=== PATIENT | female | born 1985 | race African-American/Black ===

== ENCOUNTER 2016-11-29 17:45 | Inpatient (IN) | payer MEDICARE, MEDICAID ==
--- NOTE | 2016-11-29 17:59 | ER Document Report ---
Addendum entered and electronically signed by LUCA BALL NP 11/29/16 18:04 : Course - Re-evaluation Re-evalutation: 11/29/16 18:04 diabetic. Original Note: ED Medical Screen (RME) - General Stated Complaint: SHORTNESS OF BREATH Time seen by provider: 17:57 Mode of Arrival: Ambulatory Information source: Patient Notes: 31 yo female c/o shortness of breath, hx asthma, trouble getting air in with heavy chest pain all day. worse on left side when she got up today. TRAVEL OUTSIDE OF THE [place] IN LAST 30 DAYS: No - Related Data Allergies/Adverse Reactions: aspirin [Aspirin] Allergy (Verified 08/28/16 07:34) Anaphylaxis ciprofloxacin [From Cipro] Allergy (Verified 08/28/16 07:34) Anaphylaxis clindamycin [Clindamycin] Allergy (Verified 08/28/16 07:34) ibuprofen [From Motrin] Allergy (Verified 08/28/16 07:34) Anaphylaxis lidocaine [From Lidoderm] Allergy (Verified 08/28/16 07:34) Generalized rash tramadol HCl [From Ultram] Allergy (Verified 08/28/16 07:34) vancomycin [Vancomycin] Allergy (Verified 08/28/16 07:34) Shortness of Breath nitroglycerin [Nitroglycerin] Adverse Reaction (Intermediate, Verified 08/28/16 07:34) Joint pain Past Medical History - Social History Family history: Reviewed & Not Pertinent - Past Medical History Cardiac Medical History: Reports: Hx Congestive Heart Failure, Hx Coronary Artery Disease, Hx Hypertension, Hx Heart Murmur Pulmonary Medical History: Reports: Hx Asthma, Hx Pneumonia Neurological Medical History: Reports: Hx Migraine, Hx Seizures Endocrine Medical History: Reports: Hx Diabetes Mellitus Type 1, Hx Diabetes Mellitus Type 2 Renal/ Medical History: Reports: Hx End Stage Renal Disease - On hemodialysis , Hx Hemodialysis, Hx Ovarian Cysts Malignancy Medical History: GI Medical History: Reports: Hx Gastritis Musculoskeltal Medical History: Skin Medical History: Reports Hx Psoriasis Psychiatric Medical History: Reports: Hx Depression Traumatic Medical History: Infectious Medical History: Past Surgical History: Reports: Hx Appendectomy, Hx Cholecystectomy, Hx Vascular Surgery - Left arm fistula; Perm Cath -Right Chest, right arm fistula - Immunizations Immunizations up to date: Yes Hx Diphtheria, Pertussis, Tetanus Vaccination: Yes
[2016-11-29] MEDS ORDERED: IPRATROPIUM/ALBUTEROL 0.5-2.5 MG/3 ML AMPUL NEB ONE (18:03)
[2016-11-29 18:48] LABS: ABSOLUTE BASOPHILS # (AUTO) 0.1 10^3/uL (0.0-0.2); ABSOLUTE EOSINOPHILS # (AUTO) 0.8 10^3/uL (0.0-0.6); ABSOLUTE LYMPHOCYTES (AUTO) 1.8 10^3/uL (0.5-4.7); ABSOLUTE MONOCYTES (AUTO) 0.5 10^3/uL (0.1-1.4); ABSOLUTE NEUT (AUTO) 6.9 10^3/uL (1.7-8.2); BASOPHILS % (AUTO) 1.3 % (0-2); EOSINOPHILS % (AUTO) 7.6 % (0-6); HEMATOCRIT 35.8 % (36.0-47.0); HEMOGLOBIN 11.7 g/dL (12.0-15.5); HGB HCT DIFFERENCE -0.7; LYMPHOCYTES % (AUTO) 17.5 % (13-45); MEAN CORPUSCULAR HEMOGLOBIN 27.9 pg (27.0-33.4); MEAN CORPUSCULAR HGB CONC 32.6 g/dL (32.0-36.0); MEAN CORPUSCULAR VOLUME 86 fl (80-97); MONOCYTES % (AUTO) 5.3 % (3-13); RED BLOOD COUNT 4.19 10^6/uL (3.72-5.28); RED CELL DISTRIBUTION WIDTH 17.6 % (11.5-14.0); SEGMENTED NEUTROPHILS % (AUTO) 68.3 % (42-78); WHITE BLOOD COUNT 10.1 10^3/uL (4.0-10.5)
[2016-11-29 19:11] LABS: ALANINE AMINOTRANSFERASE 23 U/L (9-52); ALBUMIN 4.8 g/dL (3.5-5.0); ALKALINE PHOSPHATASE 131 U/L (38-126); ASPARTATE AMINO TRANSFERASE 13 U/L (14-36); BILIRUBIN,TOTAL 0.6 mg/dL (0.2-1.3); BLOOD UREA NITROGEN 85 mg/dL (7-20); CALCIUM 8.2 mg/dL (8.4-10.2); CHLORIDE 95 mmol/L (98-107); CREATININE RESULT 13.57 mg/dL (0.52-1.25); GLUCOSE 162 mg/dL (75-110); TOTAL PROTEIN 8.1 g/dL (6.3-8.2)
[2016-11-29 19:21] LABS: CARBON DIOXIDE 20 mmol/L (22-30); SODIUM 139.3 mmol/L (137-145)
[2016-11-29 19:23] LABS: CREATINE KINASE MB 1.4 ng/mL (<4.55); TROPONIN I 0.013 ng/mL
[2016-11-29 19:25] LABS: ANION GAP 24 (5-19)
[2016-11-29 19:27] LABS: POTASSIUM 6.1 mmol/L (3.6-5.0)
[2016-11-29] MEDS ORDERED: SODIUM BICARBONATE 8.4% INJ 50 MEQ/50 ML DISP.SYRIN IV ONE (19:40)
[2016-11-29] MEDS ORDERED: CALCIUM GLUCONATE 1000 MG/10 ML INJ IV ONE (19:40)
[2016-11-29] MEDS ORDERED: INSULIN REG, HUMAN 100 UNIT/ML 3 ML VIAL (PYX) IV ONE (19:40)
[2016-11-29] MEDS ORDERED: DEXTROSE 50%-WATER 25 GM/50 ML DISP.SYRIN IV ONE (19:40)
--- NOTE | 2016-11-29 20:27 | ER Document Report ---
ED General - General Chief Complaint: Chest Pain Stated Complaint: SHORTNESS OF BREATH Mode of Arrival: Ambulatory Information source: Patient Notes: 31-year-old female dialysis patient presents with complaints of shortness of breath chest pain. Patient notes symptoms started this morning. Patient states she had dialysis done on Wednesday was told that her potassium was normal at that time. Denies any fevers or chills nausea vomiting or diarrhea admits to mild headache TRAVEL OUTSIDE OF THE [place] IN LAST 30 DAYS: No - HPI Onset: This morning Onset/Duration: Sudden Quality of pain: Pressure Severity: Mild Pain Level: 1 Associated symptoms: Chest pain, Shortness of breath Exacerbated by: Denies Relieved by: Denies Similar symptoms previously: Yes Recently seen / treated by doctor: Yes - Related Data Allergies/Adverse Reactions: aspirin [Aspirin] Allergy (Verified 11/29/16 17:58) Anaphylaxis ciprofloxacin [From Cipro] Allergy (Verified 11/29/16 17:58) Anaphylaxis clindamycin [Clindamycin] Allergy (Verified 11/29/16 17:58) ibuprofen [From Motrin] Allergy (Verified 11/29/16 17:58) Anaphylaxis lidocaine [From Lidoderm] Allergy (Verified 11/29/16 17:58) Generalized rash tramadol HCl [From Ultram] Allergy (Verified 11/29/16 17:58) vancomycin [Vancomycin] Allergy (Verified 11/29/16 17:58) Shortness of Breath nitroglycerin [Nitroglycerin] Adverse Reaction (Intermediate, Verified 11/29/16 17:58) Joint pain Past Medical History - General Information source: Patient - Social History Smoking Status: Unknown if Ever Smoked Cigarette use (# per day): No Chew tobacco use (# tins/day): No Smoking Education Provided: No Frequency of alcohol use: None Drug Abuse: None Family History: None Patient has suicidal ideation: No Patient has homicidal ideation: No - Past Medical History Cardiac Medical History: Reports: Hx Congestive Heart Failure, Hx Coronary Artery Disease, Hx Hypertension, Hx Heart Murmur Pulmonary Medical History: Reports: Hx Asthma, Hx Pneumonia Neurological Medical History: Reports: Hx Migraine, Hx Seizures Endocrine Medical History: Reports: Hx Diabetes Mellitus Type 1, Hx Diabetes Mellitus Type 2 Renal/ Medical History: Reports: Hx End Stage Renal Disease - On hemodialysis , Hx Hemodialysis, Hx Ovarian Cysts Malignancy Medical History: GI Medical History: Reports: Hx Gastritis Musculoskeltal Medical History: Skin Medical History: Reports Hx Psoriasis Psychiatric Medical History: Reports: Hx Depression Traumatic Medical History: Infectious Medical History: Past Surgical History: Reports: Hx Appendectomy, Hx Cholecystectomy, Hx Vascular Surgery - Left arm fistula; Perm Cath -Right Chest, right arm fistula - Immunizations Immunizations up to date: Yes Hx Diphtheria, Pertussis, Tetanus Vaccination: Yes Hx Pneumococcal Vaccination: 08/22/11 Review of Systems - Review of Systems Notes: REVIEW OF SYSTEMS: CONSTITUTIONAL : Denies fever, chills, or sweats. Denies recent illness. EENT: Denies eye, ear, throat, or mouth pain or symptoms. Denies nasal or sinus congestion or discharge. Denies throat, tongue, or mouth swelling or difficulty swallowing. CARDIOVASCULAR: Admits to chest pain RESPIRATORY: Admits shortness breath GASTROINTESTINAL: Denies abdominal pain or distention. Denies nausea, vomiting , or diarrhea. Denies blood in vomitus, stools, or per rectum. Denies black, tarry stools. Denies constipation. GENITOURINARY: Denies difficulty urinating, painful urination, burning, frequency, blood in urine, or discharge. FEMALE GENITOURINARY: Denies vaginal bleeding, heavy or abnormal periods, irregular periods. Denies vaginal discharge or odor. MUSCULOSKELETAL: Denies back or neck pain or stiffness. Denies joint pain or swelling. SKIN: Denies rash, lesions or sores. HEMATOLOGIC : Denies easy bruising or bleeding. LYMPHATIC: Denies swollen, enlarged glands. NEUROLOGICAL: Denies confusion or altered mental status. Denies passing out or loss of consciousness. Denies dizziness or lightheadedness. Denies headache. Denies weakness or paralysis or loss of use of either side. Denies problems with gait or speech. Denies sensory loss, numbness, or tingling. Denies seizures. PSYCHIATRIC: Denies anxiety or stress. Denies depression, suicidal ideation, or homicidal ideation. ALL OTHER SYSTEMS REVIEWED AND NEGATIVE. Dictation was performed using [employer] recognition software PHYSICAL EXAMINATION: GENERAL: Well-appearing, well-nourished and in no acute distress. HEAD: Atraumatic, normocephalic. EYES: Pupils equal round and reactive to light, extraocular movements intact, conjunctiva are normal. ENT: Nares patent, oropharynx clear without exudates. Moist mucous membranes. NECK: Normal range of motion, supple without lymphadenopathy LUNGS: Crackles at the bases HEART: Regular rate and rhythm without murmurs ABDOMEN: Soft, nontender, nondistended abdomen. No guarding, no rebound. No masses appreciated. Female : deferred Musculoskeletal: Normal range of motion, no pitting or edema. No cyanosis. NEUROLOGICAL: Cranial nerves grossly intact. Normal speech, normal gait. Normal sensory, motor exams PSYCH: Normal mood, normal affect. SKIN: Extensive scarring noted Physical Exam - Vital signs Vitals: Resp Pulse Ox 18 100 11/29/16 18:56 11/29/16 18:56 Course - Re-evaluation Re-evalutation: 11/29/16 20:25 Patient is noted to be hyperkalemic, she will be treated with medications at this time, there is a similar-appearing EKG changes that the patient always has with the hyperacute T waves. I do not believe she requires any emergent dialysis at this time as she is otherwise stable - Vital Signs Vital signs: Temp Pulse Resp BP Pulse Ox 97.8 F 22 H 158/93 H 100 11/29/16 19:32 11/29/16 19:27 11/29/16 19:27 11/29/16 19:27 - Laboratory Result Diagrams: 11/29/16 18:35 11/29/16 18:35 Laboratory results interpreted by me: 11/29/16 11/29/16 11/29/16 18:35 18:35 18:35 Hgb 11.7 L Hct 35.8 L RDW 17.6 H Eosinophils % 7.6 H Absolute Eosinophils 0.8 H Potassium 6.1 H* Chloride 95 L Carbon Dioxide 20 L Anion Gap 24 H BUN 85 H Creatinine 13.57 H Est GFR ( Amer) 4 L Est GFR (Non-Af Amer) 3 L Glucose 162 H Calcium 8.2 L AST 13 L Alkaline Phosphatase 131 H NT-Pro-B Natriuret Pep 33129 H Critical Care Note - Critical Care Note Total time excluding time spent on procedures (mins): 33 Comments: 33 minutes of critical care time spent in direct contact evaluating and reevaluating the patient, treating symptoms, reviewing labs and studies and speaking with family and consultants excluding any procedures Discharge - Discharge Clinical Impression: Acute on chronic systolic CHF (congestive heart failure), ESRD (end stage renal disease) on dialysis, Hyperkalemia Volume overload Qualifiers: Hypervolemia type: unspecified Qualified Code(s): E87.70 - Fluid overload, unspecified Condition: Stable Disposition: ADMITTED OBSERVATION Admitting Provider: [facility] Unit Admitted: Telemetry
--- NOTE | 2016-11-29 21:31 | EKG REPORT ---
SEVERITY:- ABNORMAL ECG - SINUS RHYTHM FIRST DEGREE AV BLOCK LEFT AXIS DEVIATION PROBABLE LEFT VENTRICULAR HYPERTROPHY PROLONGED QT INTERVAL : Confirmed by: Daniela Lemons 29-Nov-2016 21:30:42
[2016-11-29] MEDS ORDERED: DEXTROSE 40% GEL 15 GM TUBE PO PRN ×2 (22:41)
[2016-11-29] MEDS ORDERED: DEXTROSE 50%-WATER 25 GM/50 ML DISP.SYRIN IV PRN ×2 (22:41)
[2016-11-29] MEDS ORDERED: GLUCAGON,HUMAN RECOMB 1 MG INJ IM PRN (22:41)
[2016-11-30] MEDS ORDERED: CALCIUM CARBONATE 500 MG TAB.CHEW PO ONE ×2 (00:30)
[2016-11-30] MEDS ORDERED: LABETALOL HCL 200 MG TABLET PO ONE (00:30)
[2016-11-30] MEDS ORDERED: LORAZEPAM 1 MG TABLET PO PRN (02:40)
[2016-11-30] MEDS ORDERED: (PENDING PHARMACY ID) (Suvorexant [Belsomra] 15 MG) PO PRN (02:50)
[2016-11-30] MEDS ORDERED: (PENDING PHARMACY ID) (Sucroferric Oxyhydroxide [Velphoro] 500 MG) PO PRN (03:58)
[2016-11-30] MEDS ORDERED: INSULIN DETEMIR 100 UNIT/ML 3 ML PEN SUBCUT ONE (04:30)
[2016-11-30 05:36] LABS: HEMATOCRIT 32.9 % (36.0-47.0); HEMOGLOBIN 10.9 g/dL (12.0-15.5); HGB HCT DIFFERENCE -0.2; MEAN CORPUSCULAR HEMOGLOBIN 28.5 pg (27.0-33.4); MEAN CORPUSCULAR VOLUME 86 fl (80-97); RED BLOOD COUNT 3.82 10^6/uL (3.72-5.28); RED CELL DISTRIBUTION WIDTH 17.6 % (11.5-14.0); WHITE BLOOD COUNT 9.9 10^3/uL (4.0-10.5)
[2016-11-30 05:51] LABS: BLOOD UREA NITROGEN 88 mg/dL (7-20); CALCIUM 8.1 mg/dL (8.4-10.2); GLUCOSE 97 mg/dL (75-110)
[2016-11-30 06:01] LABS: CARBON DIOXIDE 20 mmol/L (22-30); CHLORIDE 96 mmol/L (98-107)
[2016-11-30 06:02] LABS: ANION GAP 23 (5-19); CREATININE RESULT 14.64 mg/dL (0.52-1.25)
[2016-11-30 06:04] LABS: POTASSIUM 6.5 mmol/L (3.6-5.0)
[2016-11-30] MEDS ORDERED: CALCIUM GLUCONATE 1000 MG/10 ML INJ IV PRN (06:17)
[2016-11-30] MEDS ORDERED: SODIUM POLYSTYRENE SULFONATE 15 GM/60 ML PO ONE (06:30)
[2016-11-30] MEDS ORDERED: CALCIUM GLUCONATE 1,000 MG in DEXTROSE 5%-WATER 50 ML IV ONE (06:30)
[2016-11-30] MEDS ORDERED: HEPARIN SOD (PORCINE) 1,000 UNIT/ML 10 ML VIAL IV PRN (09:56)
[2016-11-30] MEDS ORDERED: SUCROFERRIC OXYHYDROXIDE 1000 MG PO SCH (10:00)
[2016-11-30] MEDS ORDERED: ACETAMINOPHEN 325 MG TABLET PO ONE (11:00)
[2016-11-30] MEDS: INSULIN DETEMIR 100 UNIT/ML 3 ML PEN SUBCUT SCH ×2 (11:51→23:14)
[2016-11-30] MEDS: NIFEDIPINE 30 MG TAB.ER.24 PO SCH ×2 (11:54→23:13)
--- NOTE | 2016-11-30 17:52 | PDOC CONSULTATION ---
Consultation Consult Date: 11/30/16 Consult reason:: Acute dialysis in the setting of congestive heart failure and hyperkalemia History of Present Illness Admission Date/PCP: 11/30/16 16:18 HILARY HERNANDEZ, History of Present Illness: ERICH GOODMAN is a 31 year old female with a past medical history of ESRD on hemodialysis in the background of diabetes, hypertension who comes in with a history of shortness of breath. She was last dialyzed on Wednesday at [facility] [place]. She is known to be extremely noncompliant unfortunately. She has got short many different treatments and does not conform to any form of diet. She is also known to not be taking her medications faithfully. She has had multiple admissions for malignant hypertension presenting as severe hypertension or as congestive heart failure. She has also had multiple admissions for hyperkalemia. Evaluations in the ER revealed that she was in congestive heart failure and the potassium was 6.1. EKG showed peaked tented T waves in the anterolateral leads which is sometimes similar to previous EKGs as well. She was given appropriate treatments in the ER and admitted for further evaluations and management. She is being seen on hemodialysis undergoing dialysis without issues. Discussed with Kim treating nurse on dialysis. Orders have been given. Vital signs are stable. Plan to ultrafiltrate between 4 and 5 L as tolerated. Past Medical History Cardiac Medical History: Reports: Coronary Artery Disease, Heart Murmur, Hypertension-primary Pulmonary Medical History: Reports: Asthma, Pneumonia Neurological Medical History: Reports: Migraine, Seizures Endocrine Medical History: Reports: Diabetes Mellitus Type 2 Renal/ Medical History: Reports: End Stage Renal Disease - On hemodialysis Denies: Benign Prostatic Hyperplasia Malignancy Medical History: GI Medical History: Musculoskeltal Medical History: Denies: Rheumatoid Arthritis, Systemic Lupus Erythematosus Skin Medical History: Reports: Psoriasis Psychiatric Medical History: Reports: Depression Infectious Medical History: Past Surgical History Past Surgical History: Reports: Appendectomy, Cholecystectomy, Vascular Surgery - Left arm fistula; Perm Cath -Right Chest, right arm fistula Social History Smoking Status: Unknown if Ever Smoked Frequency of Alcohol Use: None Hx Recreational Drug Use: No Drugs: None Hx Prescription Drug Abuse: No Family History Parental Family History Reviewed: Yes Children Family History Reviewed: No Sibling(s) Family History Reviewed.: No Medication/Allergy Home Medications: Labetalol HCl [Normodyne 200 mg Tablet] 600 mg PO Q8 11/11/16 Lorazepam 2 mg PO Q12HP PRN 11/11/16 Mirtazapine 30 mg PO QHS 11/11/16 Nifedipine [Nifedipine ER] 90 mg PO Q12 11/11/16 Ondansetron [Ondansetron Odt] 4 mg PO Q8HP PRN 11/11/16 Oxycodone HCl/Acetaminophen [Oxycodone-Acetaminophen 10-325] 1 tab PO Q12HP PRN 11/11/16 Paroxetine HCl [Paxil] 60 mg PO QHS 11/11/16 Suvorexant [Belsomra] 15 mg PO HSP PRN 11/11/16 Calcium Carbonate [Tums Chewable 500 mg Tab.chew] 1,000 mg PO QHS 11/12/16 Insulin Detemir [Levemir Flextouch] 30 units SQ BID 11/12/16 Insulin Lispro [Humalog Insulin (Lispro) 100 unit/mL] See Protocol SUBCUT .SLD SCALE PRN 11/12/16 Sucroferric Oxyhydroxide [Velphoro] 1,000 mg PO TID 11/12/16 Sucroferric Oxyhydroxide [Velphoro] 500 mg PO BID PRN 11/12/16 Allergies/Adverse Reactions: aspirin [Aspirin] Allergy (Verified 11/29/16 17:58) Anaphylaxis ciprofloxacin [From Cipro] Allergy (Verified 11/29/16 17:58) Anaphylaxis clindamycin [Clindamycin] Allergy (Verified 11/29/16 17:58) ibuprofen [From Motrin] Allergy (Verified 11/29/16 17:58) Anaphylaxis lidocaine [From Lidoderm] Allergy (Verified 11/29/16 17:58) Generalized rash tramadol HCl [From Ultram] Allergy (Verified 11/29/16 17:58) vancomycin [Vancomycin] Allergy (Verified 11/29/16 17:58) Shortness of Breath nitroglycerin [Nitroglycerin] Adverse Reaction (Intermediate, Verified 11/29/16 17:58) Joint pain Review of Systems Review of Systems: Constitutional: [ABSENT: chills, fever(s), headache(s), weight gain, weight loss ] Eyes: [ABSENT: visual disturbances] Ears: [ABSENT: hearing changes] Nose, Mouth and Throat: [ABSENT: headache(s)] Cardiovascular:[ ABSENT: chest pain, edema, palpitations] Respiratory: [ABSENT: cough, hemoptysis] Gastrointestinal:[ ABSENT: abdominal pain, constipation, diarrhea, hematemesis, hematochezia, nausea, vomiting] Genitourinary: [ABSENT: dysuria, hematuria] Musculoskeletal:[ ABSENT: joint swelling] Integumentary: [ABSENT: rash, wounds] Neurological: [ABSENT: abnormal gait, abnormal speech, confusion, dizziness, focal weakness, syncope, vertigo, weakness] Psychiatric: [ABSENT: anxiety, depression, homicidal ideation, suicidal ideation ] Endocrine: [ABSENT: cold intolerance, heat intolerance, menstrual abnormalities , polydipsia, polyuria] Hematologic/Lymphatic:[ ABSENT: easy bleeding, easy bruising, lymphadenopathy] Physical Exam Vital Signs: Temp Pulse Resp BP Pulse Ox 98.7 F 84 18 155/76 H 100 11/30/16 15:00 11/30/16 15:00 11/30/16 15:00 11/30/16 15:00 11/30/16 15:00 General appearance: PRESENT: mild distress, morbidly obese Eye exam: PRESENT: conjunctiva pink, EOMI, PERRLA. ABSENT: nystagmus, periorbital swelling, scleral icterus Ear exam: ABSENT: bleeding, drainage, normal external ear exam, TM's normal bilaterally Mouth exam: ABSENT: neck supple Neck exam: ABSENT: meningismus, tenderness, thyromegaly Respiratory exam: PRESENT: clear to auscultation freddy, crackles, rales, symmetrical Cardiovascular exam: PRESENT: +S1, +S2, systolic murmur GI/Abdominal exam: PRESENT: soft. ABSENT: diminished bowel sounds, distended, firm, guarding, mass, tenderness Extremities exam: PRESENT: +1 edema Neurological exam: PRESENT: alert, oriented to person, oriented to place, oriented to time Psychiatric exam: PRESENT: flat affect Skin exam: PRESENT: normal color. ABSENT: cyanosis, erythema, mottled, rash Results Impressions: Chest X-Ray 11/29/16 18:41 IMPRESSION: Congestive heart failure. Assessment & Plan - Diagnosis (1) Acute hypoxemic respiratory failure Plan: She should respond to ultrafiltration on hemodialysis. She is in respiratory failure from congestive heart failure. (2) Acute on chronic systolic CHF (congestive heart failure) Plan: She is in congestive heart failure. Unfortunately she has a severe noncompliance issues with her diet and medications. Unfortunately has had repeated admissions for her to be coming in with congestive heart failure usually around the weekends. She should respond well to ultrafiltration and we' ll see how she is done after dialysis. Plan to remove around 4-5 L as tolerated. Discussed with Kim the dialysis nurse. (3) Hyperkalemia Plan: Again unfortunately with severe noncompliance. She should respond properly to her hemodialysis. Discussed with her again about strict diet restrictions. (5) Anemia Qualifiers: Other causes of anemia: chronic disease, kidney Plan: Adjust erythropoietin. (7) Hypertension Qualifiers: Hypertension type: essential hypertension Qualified Code(s): I10 - Essential (primary) hypertension Plan: She should respond well to ultrafiltration and dialysis. Advise compliance with medications. (8) Morbid obesity Qualifiers: Obesity type: due to excess calories Qualified Code(s): E66.01 - Morbid (severe) obesity due to excess calories
[2016-11-30] MEDS: MIRTAZAPINE 15 MG TABLET PO SCH (23:13)
[2016-11-30] MEDS: PAROXETINE HCL 20 MG TABLET PO SCH (23:14)
[2016-12-01] MEDS: LABETALOL HCL 200 MG TABLET PO SCH ×3 (06:10→21:33)
[2016-12-01] MEDS ORDERED: CALCIUM CARBONATE 500 MG TAB.CHEW PO ONE (08:15)
[2016-12-01] MEDS: INSULIN LISPRO 100 UNIT/ML 3 ML VIAL SUBCUT PRN (08:23)
[2016-12-01 08:37] LABS: BLOOD UREA NITROGEN 64 mg/dL (7-20); CALCIUM 7.7 mg/dL (8.4-10.2); CARBON DIOXIDE 26 mmol/L (22-30); CHLORIDE 92 mmol/L (98-107); CREATININE RESULT 11.15 mg/dL (0.52-1.25); GLUCOSE 170 mg/dL (75-110); SODIUM 138.1 mmol/L (137-145)
[2016-12-01 08:39] LABS: ANION GAP 20 (5-19)
[2016-12-01] MEDS ORDERED: (PENDING PHARMACY ID) (Nifedipine [Nifedipine Er] 90 MG) PO SCH (10:00)
[2016-12-01] MEDS: INSULIN DETEMIR 100 UNIT/ML 3 ML PEN SUBCUT SCH ×2 (10:40→21:40)
[2016-12-01] MEDS: NIFEDIPINE 30 MG TAB.ER.24 PO SCH ×2 (10:40→21:32)
[2016-12-01] MEDS ORDERED: LEVETIRACETAM 500 MG TABLET PO ONE (13:25)
[2016-12-01] MEDS: OXYCODONE-ACETAMINOPHEN 5-325 MG TABLET PO PRN (13:29)
[2016-12-01] MEDS: ONDANSETRON 4 MG TAB.RAPDIS PO PRN (13:55)
[2016-12-01] MEDS ORDERED: LORAZEPAM INJ 2 MG/1 ML VIAL ONE (17:14)
[2016-12-01] MEDS ORDERED: HALOPERIDOL LACTATE INJ 5 MG/1 ML VIAL ONE (17:24)
--- NOTE | 2016-12-01 17:43 | PDOC H&P ---
History of Present Illness Admission Date/PCP: 11/30/16 16:18 ILIRJENNA BEAULIEUHAL, History of Present Illness: Patient 31-year-old female with end-stage renal disease on maintenance hemodialysis extremely noncompliant with hemodialysis therapy. She was recently admitted on 11/12/2016 and she was discharged on 11/14/2016. Before then she was admitted 10/27/2016, and she has multiple previous admission will be the same presentation. She presented to the emergency room with shortness of breath, she was evaluated and she was found to be in pulmonary edema with hyperkalemia. She will required dialysis, the last 2-D echo done was reviewed, the echo was done on 03/27/2016 and it showed preserved ejection fraction of the left ventricle, it was more than 65%,There was no LVH, usually once she is dialyzed ,she does feel better Past Medical History Cardiac Medical History: Reports: Hypertension Pulmonary Medical History: Reports: Asthma, Pneumonia Neurological Medical History: Reports: Migraine, Seizures Endocrine Medical History: Reports: Diabetes Mellitus Type 1, Obesity Renal/ Medical History: Reports: End Stage Renal Disease - On hemodialysis Malignancy Medical History: GI Medical History: Musculoskeltal Medical History: Skin Medical History: Reports: Psoriasis Psychiatric Medical History: Reports: Depression Hematology: Reports: Anemia Infectious Medical History: Past Surgical History Past Surgical History: Reports: Appendectomy, Cholecystectomy, Vascular Surgery - Left arm fistula; Perm Cath -Right Chest, right arm fistula Social History Information Source: Patient Smoking Status: Never Smoker Frequency of Alcohol Use: None Hx Recreational Drug Use: No Drugs: None Hx Prescription Drug Abuse: No Family History Family History: None Parental Family History Reviewed: Yes Children Family History Reviewed: Yes Sibling(s) Family History Reviewed.: Yes Medication/Allergy Home Medications: Labetalol HCl [Normodyne 200 mg Tablet] 600 mg PO Q8 11/11/16 Lorazepam 2 mg PO Q12HP PRN 11/11/16 Mirtazapine 30 mg PO QHS 11/11/16 Nifedipine [Nifedipine ER] 90 mg PO Q12 11/11/16 Ondansetron [Ondansetron Odt] 4 mg PO Q8HP PRN 11/11/16 Oxycodone HCl/Acetaminophen [Oxycodone-Acetaminophen 10-325] 1 tab PO Q12HP PRN 11/11/16 Paroxetine HCl [Paxil] 60 mg PO QHS 11/11/16 Suvorexant [Belsomra] 15 mg PO HSP PRN 11/11/16 Calcium Carbonate [Tums Chewable 500 mg Tab.chew] 1,000 mg PO QHS 11/12/16 Insulin Detemir [Levemir Flextouch] 30 units SQ BID 11/12/16 Insulin Lispro [Humalog Insulin (Lispro) 100 unit/mL] See Protocol SUBCUT .SLD SCALE PRN 11/12/16 Sucroferric Oxyhydroxide [Velphoro] 1,000 mg PO TID 11/12/16 Sucroferric Oxyhydroxide [Velphoro] 500 mg PO BID PRN 11/12/16 Allergies/Adverse Reactions: aspirin [Aspirin] Allergy (Verified 11/29/16 17:58) Anaphylaxis ciprofloxacin [From Cipro] Allergy (Verified 11/29/16 17:58) Anaphylaxis clindamycin [Clindamycin] Allergy (Verified 11/29/16 17:58) ibuprofen [From Motrin] Allergy (Verified 11/29/16 17:58) Anaphylaxis lidocaine [From Lidoderm] Allergy (Verified 11/29/16 17:58) Generalized rash tramadol HCl [From Ultram] Allergy (Verified 11/29/16 17:58) vancomycin [Vancomycin] Allergy (Verified 11/29/16 17:58) Shortness of Breath nitroglycerin [Nitroglycerin] Adverse Reaction (Intermediate, Verified 11/29/16 17:58) Joint pain Review of Systems Constitutional: PRESENT: fatigue Eyes: ABSENT: visual disturbances Ears: ABSENT: hearing changes Cardiovascular: PRESENT: dyspnea on exertion, edema Respiratory: PRESENT: cough Gastrointestinal: ABSENT: abdominal pain, constipation, diarrhea, hematemesis, hematochezia, nausea, vomiting Genitourinary: PRESENT: other - Patient is on hemodialysis Musculoskeletal: PRESENT: back pain Neurological: ABSENT: abnormal gait, abnormal speech, confusion, dizziness, focal weakness, syncope Psychiatric: PRESENT: depression Hematologic/Lymphatic: ABSENT: easy bleeding, easy bruising, lymphadenopathy Physical Exam Vital Signs: Temp Pulse Resp BP Pulse Ox 97.5 F 76 16 139/73 H 98 12/01/16 12:00 12/01/16 12:00 12/01/16 12:00 12/01/16 12:00 12/01/16 17:06 Intake & Output 11/30/16 12/01/16 12/02/16 06:59 06:59 06:59 Intake Total 240 300 Output Total 4200 Balance -3960 300 General appearance: PRESENT: obese Head exam: PRESENT: atraumatic, normocephalic Eye exam: PRESENT: PERRLA Neck exam: PRESENT: full ROM Cardiovascular exam: PRESENT: RRR, +S1, +S2 Vascular exam: PRESENT: normal capillary refill GI/Abdominal exam: PRESENT: normal bowel sounds, soft Rectal exam: PRESENT: deferred Neurological exam: PRESENT: alert, awake, oriented to person, oriented to place , oriented to time, oriented to situation, CN II-XII grossly intact. ABSENT: motor sensory deficit Psychiatric exam: PRESENT: appropriate affect, normal mood Skin exam: PRESENT: dry, intact, warm Results Laboratory Results: 12/01/16 08:01 12/01/16 08:01 Sodium 138.1 Potassium 5.0 Chloride 92 L Carbon Dioxide 26 Anion Gap 20 H BUN 64 H Creatinine 11.15 H Est GFR ( Amer) 5 L Est GFR (Non-Af Amer) 4 L Glucose 170 H Calcium 7.7 L Impressions: Chest X-Ray 11/29/16 18:41 IMPRESSION: Congestive heart failure. Assessment & Plan - Diagnosis (1) Acute pulmonary edema Is this a current diagnosis for this admission?: YesPlan: Patient is admitted for hemodialysis (2) Hyperkalemia Is this a current diagnosis for this admission?: Yes (3) End stage renal disease on dialysis due to type 1 diabetes mellitus Is this a current diagnosis for this admission?: Yes
[2016-12-01] MEDS ORDERED: HALOPERIDOL LACTATE INJ 5 MG/1 ML VIAL IM ONE (17:45)
[2016-12-01] MEDS ORDERED: LORAZEPAM INJ 2 MG/1 ML VIAL IM ONE (17:45)
[2016-12-01] MEDS: LEVETIRACETAM 500 MG TABLET PO SCH (18:28)
--- NOTE | 2016-12-01 19:05 | PDOC PROGRESS REPORT ---
Subjective Progress Note for:: 12/01/16 Subjective:: Patient had a witnessed seizure on the floor today, the nurses called me to advise me of patient had a seizure, I saw her on the floor. She was in the room on her bed face down . She would not respond to verbal commands or any question,it does not looks like post-ictal confusion states. Physical Exam Vital Signs: Temp Pulse Resp BP Pulse Ox 97.5 F 80 24 H 141/65 H 98 12/01/16 15:00 12/01/16 15:00 12/01/16 15:00 12/01/16 15:00 12/01/16 17:06 Intake & Output 11/30/16 12/01/16 12/02/16 06:59 06:59 06:59 Intake Total 240 300 Output Total 4200 Balance -3960 300 General appearance: PRESENT: no acute distress Respiratory exam: PRESENT: clear to auscultation freddy Cardiovascular exam: PRESENT: +S1, +S2 Neurological exam: PRESENT: alert Results Laboratory Results: 12/01/16 08:01 12/01/16 08:01 Sodium 138.1 Potassium 5.0 Chloride 92 L Carbon Dioxide 26 Anion Gap 20 H BUN 64 H Creatinine 11.15 H Est GFR ( Amer) 5 L Est GFR (Non-Af Amer) 4 L Glucose 170 H Calcium 7.7 L Impressions: Chest X-Ray 11/29/16 18:41 IMPRESSION: Congestive heart failure. Assessment & Plan - Diagnosis (1) Acute pulmonary edema Is this a current diagnosis for this admission?: Yes (2) Hyperkalemia Is this a current diagnosis for this admission?: Yes (3) End stage renal disease on dialysis due to type 1 diabetes mellitus Is this a current diagnosis for this admission?: Yes (4) Seizure Is this a current diagnosis for this admission?: YesPlan: MRI brain is ordered , loading dose of Dilantin administered and maintainance dose of Keppra
[2016-12-01] MEDS ORDERED: PHENYTOIN SODIUM INJ/PF 250 MG/5 ML SDV IV ONE (19:30)
[2016-12-01] MEDS: CALCIUM CARBONATE 500 MG TAB.CHEW PO SCH (21:32)
[2016-12-01] MEDS: PAROXETINE HCL 20 MG TABLET PO SCH (21:33)
[2016-12-01] MEDS: MIRTAZAPINE 15 MG TABLET PO SCH (21:33)
[2016-12-02] MEDS: ONDANSETRON 4 MG TAB.RAPDIS PO PRN (00:26)
[2016-12-02] MEDS: LABETALOL HCL 200 MG TABLET PO SCH ×3 (06:38→22:05)
[2016-12-02 07:43] LABS: HEMATOCRIT 34.7 % (36.0-47.0); HEMOGLOBIN 11.3 g/dL (12.0-15.5); HGB HCT DIFFERENCE -0.8
[2016-12-02 07:48] LABS: BLOOD UREA NITROGEN 82 mg/dL (7-20); CARBON DIOXIDE 23 mmol/L (22-30); CHLORIDE 95 mmol/L (98-107); CREATININE RESULT 13.03 mg/dL (0.52-1.25); GLUCOSE 125 mg/dL (75-110); POTASSIUM 5.9 mmol/L (3.6-5.0); SODIUM 139.9 mmol/L (137-145)
[2016-12-02 08:01] LABS: ANION GAP 22 (5-19)
[2016-12-02 08:41] LABS: MEAN CORPUSCULAR HEMOGLOBIN 27.6 pg (27.0-33.4); MEAN CORPUSCULAR HGB CONC 32.5 g/dL (32.0-36.0); MEAN CORPUSCULAR VOLUME 85 fl (80-97); RED BLOOD COUNT 4.08 10^6/uL (3.72-5.28); WHITE BLOOD COUNT 11.9 10^3/uL (4.0-10.5)
[2016-12-02] MEDS: NIFEDIPINE 30 MG TAB.ER.24 PO SCH ×2 (10:50→22:05)
[2016-12-02] MEDS: LEVETIRACETAM 500 MG TABLET PO SCH ×2 (10:51→18:33)
[2016-12-02] MEDS: INSULIN DETEMIR 100 UNIT/ML 3 ML PEN SUBCUT SCH ×2 (10:52→22:01)
--- NOTE | 2016-12-02 13:36 | PDOC PROGRESS REPORT ---
Subjective Progress Note for:: 12/02/16 Subjective:: Seen on HD today.Had a seizure yesterday. Has c/o mouth pains and moderate headache.No focal deficits.Lsat tsugar this AM was 90.No skin rash, fever or chills. Physical Exam Vital Signs: Temp Pulse Resp BP Pulse Ox 98.7 F 80 21 H 141/62 H 100 12/02/16 11:33 12/02/16 11:33 12/02/16 11:33 12/02/16 11:33 12/02/16 11:33 Intake & Output 12/01/16 12/02/16 12/03/16 06:59 06:59 06:59 Intake Total 240 300 Output Total 4200 Balance -3960 300 General appearance: PRESENT: no acute distress Exam: drowsy but easily arousable and talks appropriately. Eye exam: PRESENT: EOMI, PERRLA. ABSENT: nystagmus, periorbital swelling Neck exam: ABSENT: meningismus, tenderness, thyromegaly, tracheal deviation Respiratory exam: PRESENT: clear to auscultation freddy. ABSENT: crackles Cardiovascular exam: PRESENT: +S1, +S2, systolic murmur GI/Abdominal exam: PRESENT: soft. ABSENT: diminished bowel sounds, distended, firm, guarding, mass, tenderness Results Laboratory Results: 12/02/16 04:48 12/02/16 04:48 12/02/16 12/02/16 04:48 04:48 WBC 11.9 H RBC 4.08 Hgb 11.3 L Hct 34.7 L MCV 85 MCH 27.6 MCHC 32.5 RDW 17.0 H Plt Count 280 Sodium 139.9 Potassium 5.9 H Chloride 95 L Carbon Dioxide 23 Anion Gap 22 H BUN 82 H Creatinine 13.03 H Est GFR ( Amer) 4 L Est GFR (Non-Af Amer) 3 L Glucose 125 H Calcium 8.0 L Impressions: Chest X-Ray 11/29/16 18:41 IMPRESSION: Congestive heart failure. Assessment & Plan - Diagnosis (3) Hyperkalemia Plan: She should respond properly to her hemodialysis. (4) ESRD (end stage renal disease) on dialysis Plan: Seen on HD which is being supervised.Orders placed and discussed with RN. Vs stable.Will check sugars. (5) Anemia Qualifiers: Other causes of anemia: chronic disease, kidney Plan: stable. (7) Hypertension Qualifiers: Hypertension type: essential hypertension Qualified Code(s): I10 - Essential (primary) hypertension Plan: Stable. (8) Morbid obesity Qualifiers: Obesity type: due to excess calories Qualified Code(s): E66.01 - Morbid (severe) obesity due to excess calories (9) Seizure Is this a current diagnosis for this admission?: YesPlan: as per Dr Markmonitor sugars.Discussed with KANDICE
[2016-12-02] MEDS ORDERED: CALCIUM GLUCONATE 1000 MG/10 ML INJ IV ONE (16:00)
--- NOTE | 2016-12-02 20:26 | PDOC PROGRESS REPORT ---
Subjective Progress Note for:: 12/02/16 Subjective:: Patient was seen today in dialysis, yesterday. MRI brain could not be done because of excessive movement Physical Exam Vital Signs: Temp Pulse Resp BP Pulse Ox 98.7 F 80 21 H 141/62 H 100 12/02/16 11:33 12/02/16 11:33 12/02/16 11:33 12/02/16 11:33 12/02/16 11:33 Intake & Output 12/01/16 12/02/16 12/03/16 06:59 06:59 06:59 Intake Total 240 300 50 Output Total 4200 0 Balance -3960 300 50 General appearance: PRESENT: obese Eye exam: PRESENT: PERRLA Respiratory exam: PRESENT: clear to auscultation freddy Cardiovascular exam: PRESENT: +S1, systolic murmur Results Laboratory Results: 12/02/16 04:48 12/02/16 04:48 12/02/16 12/02/16 04:48 04:48 WBC 11.9 H RBC 4.08 Hgb 11.3 L Hct 34.7 L MCV 85 MCH 27.6 MCHC 32.5 RDW 17.0 H Plt Count 280 Sodium 139.9 Potassium 5.9 H Chloride 95 L Carbon Dioxide 23 Anion Gap 22 H BUN 82 H Creatinine 13.03 H Est GFR ( Amer) 4 L Est GFR (Non-Af Amer) 3 L Glucose 125 H Calcium 8.0 L Impressions: Chest X-Ray 11/29/16 18:41 IMPRESSION: Congestive heart failure. Assessment & Plan - Diagnosis (1) Acute pulmonary edema Is this a current diagnosis for this admission?: Yes (2) Hyperkalemia Is this a current diagnosis for this admission?: Yes (3) End stage renal disease on dialysis due to type 1 diabetes mellitus Is this a current diagnosis for this admission?: Yes (4) Seizure Is this a current diagnosis for this admission?: Yes
[2016-12-02] MEDS: PAROXETINE HCL 20 MG TABLET PO SCH (22:04)
[2016-12-02] MEDS: MIRTAZAPINE 15 MG TABLET PO SCH (22:05)
[2016-12-02] MEDS: CALCIUM CARBONATE 500 MG TAB.CHEW PO SCH (22:05)
[2016-12-03] MEDS: LABETALOL HCL 200 MG TABLET PO SCH ×3 (05:50→22:56)
[2016-12-03 11:34] LABS: BLOOD UREA NITROGEN 51 mg/dL (7-20); CALCIUM 8.9 mg/dL (8.4-10.2); CARBON DIOXIDE 23 mmol/L (22-30); CHLORIDE 95 mmol/L (98-107); CREATININE RESULT 10.37 mg/dL (0.52-1.25); SODIUM 139.5 mmol/L (137-145)
[2016-12-03 11:36] LABS: GLUCOSE 168 mg/dL (75-110)
[2016-12-03 11:45] LABS: POTASSIUM 6.9 mmol/L (3.6-5.0)
[2016-12-03 12:05] LABS: ANION GAP 22 (5-19)
[2016-12-03] MEDS: LEVETIRACETAM 500 MG TABLET PO SCH ×2 (12:05→19:08)
[2016-12-03] MEDS: NIFEDIPINE 30 MG TAB.ER.24 PO SCH ×2 (12:05→22:55)
[2016-12-03] MEDS: INSULIN DETEMIR 100 UNIT/ML 3 ML PEN SUBCUT SCH ×2 (12:07→22:57)
[2016-12-03] MEDS: SODIUM POLYSTYRENE SULFONATE 15 GM/60 ML PO SCH ×3 (14:47→22:55)
[2016-12-03] MEDS: INSULIN LISPRO 100 UNIT/ML 3 ML VIAL SUBCUT PRN (17:40)
[2016-12-03 20:04] LABS: BLOOD UREA NITROGEN 54 mg/dL (7-20); CALCIUM 8.2 mg/dL (8.4-10.2); CREATININE RESULT 10.91 mg/dL (0.52-1.25); GLUCOSE 176 mg/dL (75-110)
[2016-12-03 20:25] LABS: ANION GAP 23 (5-19); CARBON DIOXIDE 23 mmol/L (22-30); CHLORIDE 94 mmol/L (98-107); POTASSIUM 5.8 mmol/L (3.6-5.0); SODIUM 139.7 mmol/L (137-145)
[2016-12-03] MEDS: OXYCODONE-ACETAMINOPHEN 5-325 MG TABLET PO PRN (20:41)
[2016-12-03] MEDS: CALCIUM CARBONATE 500 MG TAB.CHEW PO SCH (22:55)
[2016-12-03] MEDS: MIRTAZAPINE 15 MG TABLET PO SCH (22:56)
[2016-12-03] MEDS: PAROXETINE HCL 20 MG TABLET PO SCH (22:56)
[2016-12-04] MEDS: LABETALOL HCL 200 MG TABLET PO SCH ×2 (05:50→13:42)
[2016-12-04 06:19] LABS: BLOOD UREA NITROGEN 55 mg/dL (7-20); CALCIUM 8.7 mg/dL (8.4-10.2); CREATININE RESULT 12.24 mg/dL (0.52-1.25); GLUCOSE 110 mg/dL (75-110); MAGNESIUM 2.1 mg/dL (1.6-2.3)
[2016-12-04 06:33] LABS: CARBON DIOXIDE 21 mmol/L (22-30); CHLORIDE 95 mmol/L (98-107); POTASSIUM 5.1 mmol/L (3.6-5.0)
[2016-12-04 06:38] LABS: ANION GAP 26 (5-19)
[2016-12-04 07:35] LABS: HEMATOCRIT 37.2 % (36.0-47.0); HEMOGLOBIN 12.1 g/dL (12.0-15.5); HGB HCT DIFFERENCE -0.9; MEAN CORPUSCULAR HEMOGLOBIN 28.5 pg (27.0-33.4); MEAN CORPUSCULAR HGB CONC 32.5 g/dL (32.0-36.0); RED BLOOD COUNT 4.24 10^6/uL (3.72-5.28); RED CELL DISTRIBUTION WIDTH 16.8 % (11.5-14.0); WHITE BLOOD COUNT 6.9 10^3/uL (4.0-10.5)
[2016-12-04 07:37] LABS: MEAN CORPUSCULAR VOLUME 88 fl (80-97)
--- NOTE | 2016-12-04 12:24 | PDOC PROGRESS REPORT ---
Subjective Progress Note for:: 12/04/16 Subjective:: Seen on HD today. No more seizure. Doing well.No headaches. Physical Exam Vital Signs: Temp Pulse Resp BP Pulse Ox 97.8 F 77 22 H 146/65 H 94 12/04/16 08:00 12/04/16 08:00 12/04/16 08:00 12/04/16 08:00 12/04/16 08:00 Intake & Output 12/03/16 12/04/16 12/05/16 06:59 06:59 06:59 Intake Total 50 1400 Output Total 7400 Balance -7350 1400 Weight 109.1 kg General appearance: PRESENT: no acute distress Respiratory exam: PRESENT: clear to auscultation freddy. ABSENT: crackles, rhonchi Cardiovascular exam: PRESENT: +S1, +S2, systolic murmur GI/Abdominal exam: PRESENT: soft. ABSENT: diminished bowel sounds, distended, firm, guarding, mass, tenderness Neurological exam: PRESENT: alert, awake, oriented to person, oriented to place , oriented to time Results Laboratory Results: 12/04/16 06:57 12/04/16 05:06 12/03/16 12/04/16 12/04/16 19:35 05:06 05:06 WBC Cancelled RBC Cancelled Hgb Cancelled Hct Cancelled MCV Cancelled MCH Cancelled MCHC Cancelled RDW Cancelled Plt Count Cancelled Sodium 139.7 142.0 Potassium 5.8 H D 5.1 H Chloride 94 L 95 L Carbon Dioxide 23 21 L Anion Gap 23 H 26 H BUN 54 H 55 H Creatinine 10.91 H 12.24 H Est GFR ( Amer) 5 L 4 L Est GFR (Non-Af Amer) 4 L 4 L Glucose 176 H 110 Calcium 8.2 L 8.7 Magnesium 2.1 12/04/16 06:57 WBC 6.9 RBC 4.24 Hgb 12.1 Hct 37.2 MCV 88 MCH 28.5 MCHC 32.5 RDW 16.8 H Plt Count 256 Sodium Potassium Chloride Carbon Dioxide Anion Gap BUN Creatinine Est GFR ( Amer) Est GFR (Non-Af Amer) Glucose Calcium Magnesium Impressions: Chest X-Ray 11/29/16 18:41 IMPRESSION: Congestive heart failure. Assessment & Plan - Diagnosis (2) Acute on chronic systolic CHF (congestive heart failure) Plan: Resolved. (3) Hyperkalemia Plan: She should respond properly to her hemodialysis. (4) ESRD (end stage renal disease) on dialysis Plan: Seen on HD which is being supervised.Orders placed and discussed with RN. Vs stable.High K. Get K on HD. Interrogate AVF. (5) Anemia Qualifiers: Other causes of anemia: chronic disease, kidney (7) Hypertension Qualifiers: Hypertension type: essential hypertension Qualified Code(s): I10 - Essential (primary) hypertension (8) Morbid obesity Qualifiers: Obesity type: due to excess calories Qualified Code(s): E66.01 - Morbid (severe) obesity due to excess calories (9) Seizure Is this a current diagnosis for this admission?: YesPlan: As per Dr Mark
[2016-12-04] MEDS: NIFEDIPINE 30 MG TAB.ER.24 PO SCH (13:43)
[2016-12-04] MEDS: LEVETIRACETAM 500 MG TABLET PO SCH ×2 (13:44→19:27)
[2016-12-04] MEDS: INSULIN DETEMIR 100 UNIT/ML 3 ML PEN SUBCUT SCH (13:45)
[2016-12-04 21:00] VITALS: BP 150/68
--- NOTE | 2016-12-04 21:14 | PDOC PROGRESS REPORT ---
Subjective Progress Note for:: 12/03/16 Subjective:: Recent seen by the bedside, the serum potassium is high today, she was given Kayexalate Physical Exam Vital Signs: Temp Pulse Resp BP Pulse Ox 98.0 F 84 20 125/74 99 12/03/16 16:26 12/03/16 16:26 12/03/16 16:26 12/03/16 16:26 12/03/16 16:26 Intake & Output 12/02/16 12/03/16 12/04/16 06:59 06:59 06:59 Intake Total 300 50 360 Output Total 7400 Balance 300 -7350 360 General appearance: PRESENT: no acute distress Eye exam: PRESENT: PERRLA Respiratory exam: PRESENT: clear to auscultation freddy Cardiovascular exam: PRESENT: +S1, +S2 Results Laboratory Results: 12/02/16 04:48 12/03/16 19:35 12/03/16 12/03/16 11:10 19:35 Sodium 139.5 139.7 Potassium 6.9 H* 5.8 H D Chloride 95 L 94 L Carbon Dioxide 23 23 Anion Gap 22 H 23 H BUN 51 H 54 H Creatinine 10.37 H 10.91 H Est GFR ( Amer) 5 L 5 L Est GFR (Non-Af Amer) 4 L 4 L Glucose 168 H 176 H Calcium 8.9 8.2 L Impressions: Chest X-Ray 11/29/16 18:41 IMPRESSION: Congestive heart failure. Assessment & Plan - Diagnosis (1) Acute pulmonary edema Is this a current diagnosis for this admission?: Yes (2) Hyperkalemia Is this a current diagnosis for this admission?: Yes (3) End stage renal disease on dialysis due to type 1 diabetes mellitus Is this a current diagnosis for this admission?: Yes (4) Seizure Is this a current diagnosis for this admission?: Yes
--- NOTE | 2016-12-04 21:28 | PDOC DISCHARGE SUMMARY ---
General - Admit/Disc Date/PCP Admission Date/Primary Care Provider: 11/30/16 16:18 HILARY HERNANDEZ, Discharge Date: 12/04/16 - Discharge Diagnosis (1) Acute pulmonary edema Is this a current diagnosis for this admission?: Yes (2) Hyperkalemia Is this a current diagnosis for this admission?: Yes (3) End stage renal disease on dialysis due to type 1 diabetes mellitus Is this a current diagnosis for this admission?: Yes (4) Seizure Is this a current diagnosis for this admission?: Yes - Additional Information Discharge Activity: Balance Activity w/Rest Home Medications: Labetalol HCl [Normodyne 200 mg Tablet] 600 mg PO Q8 11/11/16 Lorazepam 2 mg PO Q12HP PRN 11/11/16 Mirtazapine 30 mg PO QHS 11/11/16 Nifedipine [Nifedipine ER] 90 mg PO Q12 11/11/16 Ondansetron [Ondansetron Odt] 4 mg PO Q8HP PRN 11/11/16 Oxycodone HCl/Acetaminophen [Oxycodone-Acetaminophen 10-325] 1 tab PO Q12HP PRN 11/11/16 Paroxetine HCl [Paxil] 60 mg PO QHS 11/11/16 Suvorexant [Belsomra] 15 mg PO HSP PRN 11/11/16 Calcium Carbonate [Tums Chewable 500 mg Tab.chew] 1,000 mg PO QHS 11/12/16 Insulin Detemir [Levemir Flextouch] 30 units SQ BID 11/12/16 Insulin Lispro [Humalog Insulin (Lispro) 100 unit/mL] See Protocol SUBCUT .SLD SCALE PRN 11/12/16 Sucroferric Oxyhydroxide [Velphoro] 1,000 mg PO TID 11/12/16 Sucroferric Oxyhydroxide [Velphoro] 500 mg PO BID PRN 11/12/16 Levetiracetam [Keppra 500 mg Tablet] 500 mg PO BID #60 tablet 12/04/16 History of Present Illness History of Present Illness: Patient 31-year-old female with end-stage renal disease on maintenance hemodialysis extremely noncompliant with hemodialysis therapy. She was recently admitted on 11/12/2016 and she was discharged on 11/14/2016. Before then she was admitted 10/27/2016, and she has multiple previous admission will be the same presentation. She presented to the emergency room with shortness of breath, she was evaluated and she was found to be in pulmonary edema with hyperkalemia. She will required dialysis, the last 2-D echo done was reviewed, the echo was done on 03/27/2016 and it showed preserved ejection fraction of the left ventricle, it was more than 65%,There was no LVH, usually once she is dialyzed ,she does feel better Hospital Course Hospital Course: Patient was admitted because of volume overload, she was dialyzed in the hospital, she developed acute seizure in the hospital and she was treated with Dilantin loading dose and Keppra maintenance dose. Physical Exam Vital Signs: Temp Pulse Resp BP Pulse Ox 98.9 F 86 20 150/68 H 100 12/04/16 20:53 12/04/16 20:53 12/04/16 20:53 12/04/16 20:53 12/04/16 20:53 Intake & Output 12/03/16 12/04/16 12/05/16 06:59 06:59 06:59 Intake Total 50 1400 480 Output Total 7400 700 Balance -7350 1400 -220 Weight 109.1 kg General appearance: PRESENT: no acute distress Eye exam: PRESENT: PERRLA Respiratory exam: PRESENT: clear to auscultation freddy Cardiovascular exam: PRESENT: +S1, +S2 GI/Abdominal exam: PRESENT: firm Neurological exam: PRESENT: alert Results Laboratory Results: 12/04/16 06:57 12/04/16 05:06 12/04/16 12/04/16 12/04/16 05:06 05:06 06:57 WBC Cancelled 6.9 RBC Cancelled 4.24 Hgb Cancelled 12.1 Hct Cancelled 37.2 MCV Cancelled 88 MCH Cancelled 28.5 MCHC Cancelled 32.5 RDW Cancelled 16.8 H Plt Count Cancelled 256 Sodium 142.0 Potassium 5.1 H Chloride 95 L Carbon Dioxide 21 L Anion Gap 26 H BUN 55 H Creatinine 12.24 H Est GFR ( Amer) 4 L Est GFR (Non-Af Amer) 4 L Glucose 110 Calcium 8.7 Magnesium 2.1 Impressions: Chest X-Ray 11/29/16 18:41 IMPRESSION: Congestive heart failure.
== END 2016-12-04 21:30 | disposition home or self-care (01) | DRG 291 ==
LOC: ER 17:45 → EH 21:06 → 4N 23:40 → OBSVTOIN 11-30 16:18 → 4N 12-01 22:29
PROVIDERS: ADMIT Internal Medicine; ATTEND Internal Medicine
PROC: 5A1D60Z (ICD-10-PCS; principal; 2016-11-30)
DX: I13.2 Hypertensive heart and chronic kidney disease with heart failure and with stage 5 chronic kidney disease, or end stage renal disease (principal); J96.01 Acute respiratory failure with hypoxia; I50.23 Acute on chronic systolic (congestive) heart failure; N18.6 End stage renal disease; E87.5 Hyperkalemia; E10.22 Type 1 diabetes mellitus with diabetic chronic kidney disease; D63.1 Anemia in chronic kidney disease; R56.9 Unspecified convulsions; I25.10 Atherosclerotic heart disease of native coronary artery without angina pectoris; E66.01 Morbid (severe) obesity due to excess calories; Z68.37 Body mass index [BMI] 37.0-37.9, adult; Z79.4 Long term (current) use of insulin; Z88.1 Allergy status to other antibiotic agents; Z88.6 Allergy status to analgesic agent; Z88.8 Allergy status to other drugs, medicaments and biological substances; Z99.2 Dependence on renal dialysis; Z91.15 Patient's noncompliance with renal dialysis; Z91.14 Patient's other noncompliance with medication regimen
CPT/HCPCS: 36415; 71020; 80048; 80053; 82550; 82553; 82962; 83735; 83880; 84484; 85025; 85027; 93005; 93010; 94640; 96374; 96375; 99291; J0610; J1165; J1630; J1815; J2060; J3490; J7620; S0119

== ENCOUNTER 2016-12-07 03:09 | Emergency (ER) | payer MEDICARE, MEDICAID ==
[2016-12-07] MEDS ORDERED: DIAZEPAM INJ 10 MG/2 ML DISP.SYRIN IM ONE ×2 (03:24→04:43)
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
[2016-12-07 04:24] VITALS: BP 155/79
== END 2016-12-07 04:58 | disposition home or self-care (01) ==
LOC: ER 03:09
DX: G89.29 Other chronic pain (principal); M54.41 Lumbago with sciatica, right side; Z79.891 Long term (current) use of opiate analgesic; Z79.52 Long term (current) use of systemic steroids; I12.0 Hypertensive chronic kidney disease with stage 5 chronic kidney disease or end stage renal disease; E11.22 Type 2 diabetes mellitus with diabetic chronic kidney disease; N18.6 End stage renal disease; Z99.2 Dependence on renal dialysis; I25.10 Atherosclerotic heart disease of native coronary artery without angina pectoris; J45.909 Unspecified asthma, uncomplicated
CPT/HCPCS: 99283; 96372; J3360

== ENCOUNTER 2016-12-14 00:54 | Emergency (ER) | payer MEDICARE, MEDICAID ==
--- NOTE | 2016-12-14 04:07 | ER Document Report ---
ED General - General Chief Complaint: Congestion Stated Complaint: DIFFICULTY BREATHING Time seen by provider: 03:50 Notes: Patient is a 31-year-old female that comes emergency department for chief complaint of cough, chills, sinus congestion, and sore throat. She states her son has the same illness. She states she went to urgent care today but they do not started on any antibiotics. She states she has had a history of pneumonia. Patient could not sleep tonight. Patient has a history of end-stage renal disease, she has dialysis due in the morning. TRAVEL OUTSIDE OF THE [place] IN LAST 30 DAYS: No - Related Data Allergies/Adverse Reactions: aspirin [Aspirin] Allergy (Verified 11/29/16 17:58) Anaphylaxis ciprofloxacin [From Cipro] Allergy (Verified 11/29/16 17:58) Anaphylaxis clindamycin [Clindamycin] Allergy (Verified 11/29/16 17:58) ibuprofen [From Motrin] Allergy (Verified 11/29/16 17:58) Anaphylaxis lidocaine [From Lidoderm] Allergy (Verified 11/29/16 17:58) Generalized rash tramadol HCl [From Ultram] Allergy (Verified 11/29/16 17:58) vancomycin [Vancomycin] Allergy (Verified 11/29/16 17:58) Shortness of Breath nitroglycerin [Nitroglycerin] Adverse Reaction (Intermediate, Verified 11/29/16 17:58) Joint pain Past Medical History - General Information source: Patient - Social History Smoking Status: Never Smoker Frequency of alcohol use: None Drug Abuse: None Lives with: Family Family History: None Patient has suicidal ideation: No Patient has homicidal ideation: No - Past Medical History Cardiac Medical History: Reports: Hx Congestive Heart Failure, Hx Coronary Artery Disease, Hx Hypertension, Hx Heart Murmur Pulmonary Medical History: Reports: Hx Asthma, Hx Pneumonia Neurological Medical History: Reports: Hx Migraine, Hx Seizures Endocrine Medical History: Reports: Hx Diabetes Mellitus Type 1, Hx Diabetes Mellitus Type 2 Renal/ Medical History: Reports: Hx End Stage Renal Disease - On hemodialysis , Hx Hemodialysis, Hx Ovarian Cysts. Denies: Hx Peritoneal Dialysis Malignancy Medical History: GI Medical History: Reports: Hx Gastritis Musculoskeltal Medical History: Skin Medical History: Reports Hx Psoriasis Psychiatric Medical History: Reports: Hx Depression Traumatic Medical History: Infectious Medical History: Past Surgical History: Reports: Hx Appendectomy, Hx Cholecystectomy, Hx Vascular Surgery - Left arm fistula; Perm Cath -Right Chest, right arm fistula - Immunizations Immunizations up to date: Yes Hx Diphtheria, Pertussis, Tetanus Vaccination: Yes Hx Pneumococcal Vaccination: 08/22/11 Review of Systems - Review of Systems Constitutional: See HPI EENT: See HPI Cardiovascular: No symptoms reported Respiratory: See HPI Gastrointestinal: No symptoms reported Genitourinary: No symptoms reported Female Genitourinary: No symptoms reported Musculoskeletal: No symptoms reported Skin: No symptoms reported Hematologic/Lymphatic: No symptoms reported Neurological/Psychological: No symptoms reported Physical Exam - Vital signs Vitals: Temp Pulse Resp BP Pulse Ox 97.8 F 92 18 160/76 H 94 12/14/16 02:54 12/14/16 02:54 12/14/16 02:54 12/14/16 02:54 12/14/16 02:54 Interpretation: Normal - General General appearance: Appears well, Alert In distress: None - HEENT Head: Normocephalic, Atraumatic Eyes: Normal Conjunctiva: Normal Extraocular movements intact: Yes Eyelashes: Normal Pupils: PERRL Ears: Normal External canal: Normal Tympanic membrane: Normal Sinus: Normal Nasal: Normal Mouth/Lips: Normal Mucous membranes: Normal Pharynx: Normal Neck: Normal - Respiratory Respiratory status: No respiratory distress. No: Respiratory distress, Tachypnea Chest status: Nontender Breath sounds: Nonproductive cough - Occasional. No: Decreased air movement, Rales, Stridor, Wheezing Chest palpation: Normal - Cardiovascular Rhythm: Regular Heart sounds: Normal auscultation Murmur: No - Abdominal Inspection: Normal Distension: No distension Bowel sounds: Normal Tenderness: Nontender. No: Tender, Guarding Organomegaly: No organomegaly - Back Back: Normal, Nontender - Extremities General upper extremity: Normal inspection, Nontender, Normal color, Normal ROM , Normal temperature General lower extremity: Normal inspection, Nontender, Normal color, Normal ROM , Normal temperature, Normal weight bearing. No: Lina's sign - Neurological Neuro grossly intact: Yes Cognition: Normal Orientation: AAOx4 [place] Coma Scale Eye Opening: Spontaneous [place] Coma Scale Verbal: Oriented [place] Coma Scale Motor: Obeys Commands Hell[place] Coma Scale Total: 15 Speech: Normal Motor strength normal: LUE, RUE, LLE, RLE Sensory: Normal - Psychological Associated symptoms: Normal affect, Normal mood - Skin Skin Temperature: Warm Skin Moisture: Dry Skin Color: Normal Course - Re-evaluation Re-evalutation: Patient with unremarkable physical exam with no rales, no decreased lung sounds , no tachypnea, no hypoxia. Abdomen is soft. Is well-appearing. Patient ambulating around the room playing with her phone. Chest x-ray shows vascular congestion versus pneumonia, no significant change compared to prior, patient has had significantly worse, patient is due for dialysis in a few hours this morning. Discussed with Dr. Ch, patient will be started on doxycycline antibiotic coverage, on reexamination patient with no change in respiratory symptoms. Patient will be advised to follow-up closely with dialysis this morning and return if she worsens in any way. Patient states understanding and agreement. - Vital Signs Vital signs: Temp Pulse Resp BP Pulse Ox 97.5 F 88 20 147/80 H 96 12/14/16 04:25 12/14/16 04:25 12/14/16 04:25 12/14/16 04:25 12/14/16 04:25 - Laboratory Laboratory results interpreted by me: 12/14/16 04:30 POC Glucose 246 H Discharge - Discharge Clinical Impression: Sinus congestion, Cough Condition: Stable Disposition: HOME, SELF-CARE Additional Instructions: Take doxycycline as directed, we are covering you for potential pneumonia. Perform dialysis today as scheduled. Return to the emergency department for any concerning or worsening symptoms including spiking fever, shortness of breath, etc. Prescriptions: Doxycycline Hyclate 100 mg PO BID #14 capsule Referrals: HILARY HERNANDEZ MD [Primary Care Provider] - Follow up as needed
[2016-12-14] MEDS ORDERED: DOXYCYCLINE HYCLATE 100 MG TABLET PO ONE (04:10)
[2016-12-14 04:34] VITALS: BP 147/80
== END 2016-12-14 04:34 | disposition home or self-care (01) ==
LOC: ER 00:54
DX: R09.81 Nasal congestion (principal); R05 Cough; R06.02 Shortness of breath; J02.9 Acute pharyngitis, unspecified; N18.6 End stage renal disease
CPT/HCPCS: 99285; 82962; 71020; A9270

== ENCOUNTER 2016-12-25 02:09 | Emergency (ER) | payer MEDICARE, MEDICAID ==
[2016-12-25] MEDS ORDERED: NIFEDIPINE 30 MG TAB.ER.24 PO ONE (06:09)
[2016-12-25] MEDS ORDERED: HYDRALAZINE HCL 50 MG TABLET PO ONE (06:09)
[2016-12-25] MEDS ORDERED: LABETALOL HCL 200 MG TABLET PO ONE (06:10)
[2016-12-25] MEDS ORDERED: ONDANSETRON 4 MG TAB.RAPDIS PO ONE (06:10)
--- NOTE | 2016-12-25 06:53 | ER Document Report ---
ED General - General Chief Complaint: Chest Congestion Stated Complaint: COUGH Mode of Arrival: Ambulatory Information source: Patient Notes: 31-year-old female who is on dialysis last done on Wednesday presents with complaints of cough congestion and vomiting. Patient notes she only vomited one time but has been unable to hold down her antihypertensive medications. Patient denies any actual chest pain shortness of breath. Patient notes she has a lot of nasal congestion which she was told was allergies denies any fevers TRAVEL OUTSIDE OF THE [place] IN LAST 30 DAYS: No - HPI Onset: Just prior to arrival Onset/Duration: Sudden Quality of pain: No pain Severity: Mild Pain Level: Denies Associated symptoms: Nonproductive cough, Nausea Exacerbated by: Denies Relieved by: Denies Similar symptoms previously: Yes Recently seen / treated by doctor: Yes - Related Data Allergies/Adverse Reactions: aspirin [Aspirin] Allergy (Verified 11/29/16 17:58) Anaphylaxis ciprofloxacin [From Cipro] Allergy (Verified 11/29/16 17:58) Anaphylaxis clindamycin [Clindamycin] Allergy (Verified 11/29/16 17:58) ibuprofen [From Motrin] Allergy (Verified 11/29/16 17:58) Anaphylaxis lidocaine [From Lidoderm] Allergy (Verified 11/29/16 17:58) Generalized rash tramadol HCl [From Ultram] Allergy (Verified 11/29/16 17:58) vancomycin [Vancomycin] Allergy (Verified 11/29/16 17:58) Shortness of Breath nitroglycerin [Nitroglycerin] Adverse Reaction (Intermediate, Verified 11/29/16 17:58) Joint pain Past Medical History - Social History Smoking Status: Never Smoker Cigarette use (# per day): No Chew tobacco use (# tins/day): No Smoking Education Provided: No Frequency of alcohol use: Social Drug Abuse: None Family History: None Patient has suicidal ideation: No Patient has homicidal ideation: No - Past Medical History Cardiac Medical History: Reports: Hx Congestive Heart Failure, Hx Coronary Artery Disease, Hx Hypertension, Hx Heart Murmur Pulmonary Medical History: Reports: Hx Asthma, Hx Pneumonia Neurological Medical History: Reports: Hx Migraine, Hx Seizures Endocrine Medical History: Reports: Hx Diabetes Mellitus Type 1, Hx Diabetes Mellitus Type 2 Renal/ Medical History: Reports: Hx End Stage Renal Disease - On hemodialysis , Hx Hemodialysis, Hx Ovarian Cysts. Denies: Hx Peritoneal Dialysis Malignancy Medical History: GI Medical History: Reports: Hx Gastritis Musculoskeltal Medical History: Skin Medical History: Reports Hx Psoriasis Psychiatric Medical History: Reports: Hx Depression Traumatic Medical History: Infectious Medical History: Past Surgical History: Reports: Hx Appendectomy, Hx Cholecystectomy, Hx Vascular Surgery - Left arm fistula; Perm Cath -Right Chest, right arm fistula - Immunizations Immunizations up to date: Yes Hx Diphtheria, Pertussis, Tetanus Vaccination: Yes Hx Pneumococcal Vaccination: 08/22/11 Review of Systems - Review of Systems Notes: REVIEW OF SYSTEMS: CONSTITUTIONAL : Denies fever, chills, or sweats. Denies recent illness. EENT: Denies eye, ear, throat, or mouth pain or symptoms. Denies nasal or sinus congestion or discharge. Denies throat, tongue, or mouth swelling or difficulty swallowing. CARDIOVASCULAR: Denies chest pain. Denies palpitations or racing or irregular heart beat. Denies ankle edema. RESPIRATORY: admits ot non productive cough GASTROINTESTINAL: admits to nausea and vomiting GENITOURINARY: Denies difficulty urinating, painful urination, burning, frequency, blood in urine, or discharge. FEMALE GENITOURINARY: Denies vaginal bleeding, heavy or abnormal periods, irregular periods. Denies vaginal discharge or odor. MUSCULOSKELETAL: Denies back or neck pain or stiffness. Denies joint pain or swelling. SKIN: Denies rash, lesions or sores. HEMATOLOGIC : Denies easy bruising or bleeding. LYMPHATIC: Denies swollen, enlarged glands. NEUROLOGICAL: Denies confusion or altered mental status. Denies passing out or loss of consciousness. Denies dizziness or lightheadedness. Denies headache. Denies weakness or paralysis or loss of use of either side. Denies problems with gait or speech. Denies sensory loss, numbness, or tingling. Denies seizures. PSYCHIATRIC: Denies anxiety or stress. Denies depression, suicidal ideation, or homicidal ideation. ALL OTHER SYSTEMS REVIEWED AND NEGATIVE. Dictation was performed using [employer] voice recognition software PHYSICAL EXAMINATION: GENERAL: Well-appearing, well-nourished and in no acute distress. HEAD: Atraumatic, normocephalic. EYES: Pupils equal round and reactive to light, extraocular movements intact, conjunctiva are normal. ENT: Nares patent, oropharynx clear without exudates. Moist mucous membranes. NECK: Normal range of motion, supple without lymphadenopathy LUNGS: Breath sounds clear to auscultation bilaterally and equal. No wheezes rales or rhonchi. HEART: Regular rate and rhythm without murmurs ABDOMEN: Soft, nontender, nondistended abdomen. No guarding, no rebound. No masses appreciated. Female : deferred Musculoskeletal: Normal range of motion, no pitting or edema. No cyanosis. NEUROLOGICAL: Cranial nerves grossly intact. Normal speech, normal gait. Normal sensory, motor exams PSYCH: Normal mood, normal affect. SKIN: Warm, Dry, normal turgor, no rashes or lesions noted. Physical Exam - Vital signs Vitals: Temp Pulse Resp BP Pulse Ox 97.5 F 91 18 205/94 H 98 12/25/16 02:16 12/25/16 02:16 12/25/16 02:16 12/25/16 02:16 12/25/16 02:16 Course - Re-evaluation Re-evalutation: 12/25/16 06:53 Otherwise well-appearing female who presents with complaints of nausea and congestion. Chest x-ray is pending, patient will be given her antihypertensive medications in the emergency department 12/25/16 07:09 Chest x-ray notes no significant abnormality, patient has her normal cardiomegaly chest congestion, she is satting well blood pressure is improved she will be treated for a sinusitis After performing a Medical Screening Examination, I estimate there is LOW risk for ACUTE CORONARY SYNDROME, RESPIRATORY FAILURE, SEPSIS OR MENINGITIS, thus I consider the discharge disposition reasonable. The patient and I have discussed the diagnosis and risks, and we agree with discharging home with close follow- up. We also discussed returning to the Emergency Department immediately if new or worsening symptoms occur. We have discussed the symptoms which are most concerning (e.g., changing or worsening pain, trouble swallowing or breathing, neck stiffness, fever) that necessitate immediate return. - Vital Signs Vital signs: Temp Pulse Resp BP Pulse Ox 97.5 F 91 18 222/111 H 100 12/25/16 02:16 12/25/16 02:16 12/25/16 02:16 12/25/16 06:01 12/25/16 06:01 - Diagnostic Test Radiology reviewed: Image reviewed, Reports reviewed Discharge - Discharge Clinical Impression: Essential hypertension, End stage renal disease Sinusitis Qualifiers: Sinusitis location: frontal Chronicity: acute Recurrence: non-recurrent Qualified Code(s): J01.10 - Acute frontal sinusitis, unspecified Nausea & vomiting Qualifiers: Vomiting type: unspecified Vomiting Intractability: intractable Qualified Code( s): R11.2 - Nausea with vomiting, unspecified Condition: Stable Disposition: HOME, SELF-CARE Instructions: Antinausea Medication ([facility]) Prescriptions: Azithromycin 250 mg PO DAILY #4 tablet Referrals: HILARY HERNANDEZ MD [Primary Care Provider] - Follow up in 3-5 days
[2016-12-25] MEDS ORDERED: AZITHROMYCIN 250 MG TABLET PO ONE (07:11)
[2016-12-25 07:31] VITALS: BP 150/80
== END 2016-12-25 07:31 | disposition home or self-care (01) ==
LOC: ER 02:09
DX: J01.10 Acute frontal sinusitis, unspecified (principal); I10 Essential (primary) hypertension; N18.6 End stage renal disease; R11.2 Nausea with vomiting, unspecified; R09.89 Other specified symptoms and signs involving the circulatory and respiratory systems; R05 Cough; R11.10 Vomiting, unspecified; R09.81 Nasal congestion
CPT/HCPCS: 99283; 71020; A9270 ×4; S0119

== ENCOUNTER 2016-12-28 06:44 | Inpatient (IN) | payer MEDICARE, MEDICAID ==
--- NOTE | 2016-12-28 06:58 | ER Document Report ---
ED Respiratory Problem - General Mode of Arrival: Medic Information source: Patient TRAVEL OUTSIDE OF THE [place] IN LAST 30 DAYS: No - HPI Patient complains to provider of: Short of breath Onset: Other - last night Context: Hx CHF EMS treatments: CPAP Associated symptoms: Other - see above <SHEELA FREEMAN - Last Filed: 12/28/16 13:35> <LEVI PATRICK - Last Filed: 12/28/16 16:04> - General Chief Complaint: Breathing Difficulty Stated Complaint: DIFFICULTY BREATHING Notes: 31 year old female with history of hypertension, diabetes, congestive heart failure, coronary artery disease, renal failure (on dialysis MWF) and asthma presents to the ED via EMS complaining of difficulty breathing that started last night. Patient states that she was dialyzed on Wednesday as scheduled. According to [facility] records, patient was seen on 12/14/16 for an upper respiratory infection and was prescribed Doxycycline. Patient was again seen on 12/25/16 for a sinus infection and was prescribed Zithromax. According to EMS, patient was at 87% on 2L of oxygen at home and was placed on CPAP before being put on BiPAP upon arrival to the ED. A comprehensive HPI is unobtainable secondary to the patient's respiratory status. (SHEELA FREEMAN) - Related Data Allergies/Adverse Reactions: aspirin [Aspirin] Allergy (Verified 11/29/16 17:58) Anaphylaxis ciprofloxacin [From Cipro] Allergy (Verified 11/29/16 17:58) Anaphylaxis clindamycin [Clindamycin] Allergy (Verified 11/29/16 17:58) ibuprofen [From Motrin] Allergy (Verified 11/29/16 17:58) Anaphylaxis lidocaine [From Lidoderm] Allergy (Verified 11/29/16 17:58) Generalized rash tramadol HCl [From Ultram] Allergy (Verified 11/29/16 17:58) vancomycin [Vancomycin] Allergy (Verified 11/29/16 17:58) Shortness of Breath nitroglycerin [Nitroglycerin] Adverse Reaction (Intermediate, Verified 11/29/16 17:58) Joint pain Past Medical History - General Information source: Patient - Social History Smoking Status: Unknown if Ever Smoked Family History: None - Past Medical History Cardiac Medical History: Reports: Hx Congestive Heart Failure, Hx Coronary Artery Disease, Hx Hypertension, Hx Heart Murmur Pulmonary Medical History: Reports: Hx Asthma, Hx Pneumonia Neurological Medical History: Reports: Hx Migraine, Hx Seizures Endocrine Medical History: Reports: Hx Diabetes Mellitus Type 1, Hx Diabetes Mellitus Type 2 Renal/ Medical History: Reports: Hx End Stage Renal Disease - On hemodialysis , Hx Hemodialysis, Hx Ovarian Cysts. Denies: Hx Peritoneal Dialysis Malignancy Medical History: GI Medical History: Reports: Hx Gastritis Musculoskeltal Medical History: Skin Medical History: Reports Hx Psoriasis Psychiatric Medical History: Reports: Hx Depression Traumatic Medical History: Infectious Medical History: Past Surgical History: Reports: Hx Appendectomy, Hx Cholecystectomy, Hx Vascular Surgery - Left arm fistula; Perm Cath -Right Chest, right arm fistula - Immunizations Immunizations up to date: Yes Hx Diphtheria, Pertussis, Tetanus Vaccination: Yes Hx Pneumococcal Vaccination: 08/22/11 <SHEELA FREEMAN - Last Filed: 12/28/16 13:35> Review of Systems - Review of Systems Constitutional: No symptoms reported EENT: No symptoms reported Cardiovascular: No symptoms reported Respiratory: See HPI, Short of breath Gastrointestinal: No symptoms reported Genitourinary: No symptoms reported Female Genitourinary: No symptoms reported Musculoskeletal: No symptoms reported Skin: No symptoms reported Hematologic/Lymphatic: No symptoms reported Neurological/Psychological: No symptoms reported -: Yes All other systems reviewed and negative <SHEELA FREEMAN - Last Filed: 12/28/16 13:35> <LEVI PATRICK - Last Filed: 12/28/16 16:04> - Review of Systems Notes: A comprehensive ROS is unobtainable secondary to the patient's respiratory status. (SHEELA FREEMAN) Physical Exam - General General appearance: Alert - HEENT Head: Normocephalic, Atraumatic Eyes: Normal Extraocular movements intact: Yes Pupils: PERRL - Respiratory Respiratory status: Respiratory distress - Patient was on CPAP upon arrival and switched to BiPAP while at the ED. Breath sounds: Rales, Rhonchi, Wheezing. No: Normal - Cardiovascular Rhythm: Regular Heart sounds: Normal auscultation - Abdominal Inspection: Normal - Back Back: Normal - Extremities General upper extremity: Normal inspection, Normal ROM General lower extremity: Normal inspection, Normal ROM - Neurological Neuro grossly intact: Yes - Psychological Associated symptoms: Normal affect, Normal mood - Skin Skin Temperature: Warm Skin Moisture: Dry Skin Color: Normal <SHEELA FREEMAN - Last Filed: 12/28/16 13:35> <LEVI PATRICK - Last Filed: 12/28/16 16:04> - Vital signs Vitals: Pulse Ox 97 12/28/16 06:46 Pulse Ox 97 12/28/16 06:46 (SHEELA FREEMAN) Course - Laboratory Result Diagrams: 12/28/16 06:59 12/28/16 06:59 <SHEELA FREEMAN - Last Filed: 12/28/16 13:35> - Laboratory Result Diagrams: 12/28/16 06:59 12/28/16 06:59 - Diagnostic Test Radiology reviewed: Image reviewed, Reports reviewed - Diffuse Pulmonary edema, cardiomegaly - EKG Interpretation by Me EKG shows normal: Sinus rhythm, QRS Complexes, ST-T Waves. abnormal: Piercy - LAD , Intervals - Prolonged QT Rate: Tachycardia - 104 Piercy/QRS: Left axis deviation P Waves: LAE - Consults Dr. Farah Time consulted: 08:20 Consulted provider: other - Will make arrangements to dialyze in the emergency room. States it will probably be 2 hours before this can happen. Dr. Hernandez Time consulted: 16:00 Consulted provider: will see as inpatient <LEVI PATRICK - Last Filed: 12/28/16 16:04> - Re-evaluation Re-evalutation: 12/28/16 16:00 The patient had just over 4 L of fluid removed on dialysis. Her breathing is much improved. Discussing this with the patient and the respiratory therapist who is quite familiar with her, they reports she usually stays on BiPAP throughout the day and evening and frequently until the next day after an episode like this. She has never required dialysis again on the same day or the following day when she is presented in a similar fashion. (LEVI PATRICK) - Vital Signs Vital signs: Temp Pulse Resp BP Pulse Ox 24 H 173/84 H 100 12/28/16 11:55 12/28/16 11:01 12/28/16 11:55 - Laboratory Laboratory results interpreted by me: 12/28/16 12/28/16 12/28/16 06:59 06:59 06:59 WBC 14.1 H Hgb 11.1 L Hct 34.4 L RDW 17.7 H Seg Neutrophils % 85.3 H Lymphocytes % 6.0 L Absolute Neutrophils 12.0 H Potassium 6.3 H* Carbon Dioxide 21 L Anion Gap 23 H BUN 56 H Creatinine 12.04 H Est GFR ( Amer) 4 L Est GFR (Non-Af Amer) 4 L Glucose 128 H POC Glucose Calcium 7.9 L Alkaline Phosphatase 144 H Creatine Kinase 188 H NT-Pro-B Natriuret Pep 8890 H Total Protein 8.8 H 12/28/16 10:03 WBC Hgb Hct RDW Seg Neutrophils % Lymphocytes % Absolute Neutrophils Potassium Carbon Dioxide Anion Gap BUN Creatinine Est GFR ( Amer) Est GFR (Non-Af Amer) Glucose POC Glucose 155 H Calcium Alkaline Phosphatase Creatine Kinase NT-Pro-B Natriuret Pep Total Protein Critical Care Note - Critical Care Note Total time excluding time spent on procedures (mins): 40 <LEVI PATRICK - Last Filed: 12/28/16 16:04> Discharge <SHEELA FREEMAN - Last Filed: 12/28/16 13:35> - Discharge Admitting Provider: Areli Unit Admitted: Medical Floor <LEVI PATRICK - Last Filed: 12/28/16 16:04> - Discharge Clinical Impression: Acute pulmonary edema, Chronic renal failure, stage 5, Hyperkalemia, Insulin dependent diabetes mellitus, Acute hypoxemic respiratory failure Disposition: ADMITTED OBSERVATION Referrals: HILARY HERNANDEZ MD [Primary Care Provider] - Follow up as needed Scribe Attestation: 12/28/16 12:40 I personally performed the services described in the documentation, reviewed and edited the documentation which was dictated to the scribe in my presence, and it accurately records my words and actions. (LEVI PATRICK) Scribe Documentation - Scribe Written by Scribe:: Mariposa Shaw, 12/28/2016 0708 acting as scribe for :: Roxanna <SHEELA FREEMAN - Last Filed: 12/28/16 13:35>
[2016-12-28 07:14] LABS: ABSOLUTE BASOPHILS # (AUTO) 0.2 10^3/uL (0.0-0.2); ABSOLUTE EOSINOPHILS # (AUTO) 0.5 10^3/uL (0.0-0.6); ABSOLUTE LYMPHOCYTES (AUTO) 0.8 10^3/uL (0.5-4.7); ABSOLUTE MONOCYTES (AUTO) 0.5 10^3/uL (0.1-1.4); BASOPHILS % (AUTO) 1.3 % (0-2); EOSINOPHILS % (AUTO) 3.9 % (0-6); HEMATOCRIT 34.4 % (36.0-47.0); HEMOGLOBIN 11.1 g/dL (12.0-15.5); HGB HCT DIFFERENCE -1.1; MEAN CORPUSCULAR HEMOGLOBIN 27.7 pg (27.0-33.4); MEAN CORPUSCULAR HGB CONC 32.2 g/dL (32.0-36.0); MEAN CORPUSCULAR VOLUME 86 fl (80-97); MONOCYTES % (AUTO) 3.5 % (3-13); RED CELL DISTRIBUTION WIDTH 17.7 % (11.5-14.0); SEGMENTED NEUTROPHILS % (AUTO) 85.3 % (42-78); WHITE BLOOD COUNT 14.1 10^3/uL (4.0-10.5)
[2016-12-28 07:38] LABS: ALANINE AMINOTRANSFERASE 15 U/L (9-52); ALBUMIN 4.2 g/dL (3.5-5.0); ALKALINE PHOSPHATASE 144 U/L (38-126); ASPARTATE AMINO TRANSFERASE 31 U/L (14-36); BILIRUBIN,TOTAL 0.7 mg/dL (0.2-1.3); BLOOD UREA NITROGEN 56 mg/dL (7-20); CALCIUM 7.9 mg/dL (8.4-10.2); CHLORIDE 98 mmol/L (98-107); CREATINE KINASE 188 U/L (30-135); CREATININE RESULT 12.04 mg/dL (0.52-1.25); GLUCOSE 128 mg/dL (75-110); TOTAL PROTEIN 8.8 g/dL (6.3-8.2)
[2016-12-28 07:50] LABS: CREATINE KINASE MB 1.47 ng/mL (<4.55); TROPONIN I 0.015 ng/mL
[2016-12-28 07:53] LABS: CARBON DIOXIDE 21 mmol/L (22-30); SODIUM 142.4 mmol/L (137-145)
[2016-12-28 07:54] LABS: ANION GAP 23 (5-19)
[2016-12-28 07:58] LABS: POTASSIUM 6.3 mmol/L (3.6-5.0)
[2016-12-28] MEDS ORDERED: CALCIUM GLUCONATE 1000 MG/10 ML INJ IV ONE (08:09)
--- NOTE | 2016-12-28 08:13 | EKG REPORT ---
SEVERITY:- ABNORMAL ECG - SINUS TACHYCARDIA PROBABLE LEFT ATRIAL ABNORMALITY BORDERLINE LEFT AXIS DEVIATION =LAFB PROLONGED QT INTERVAL : Confirmed by: Ciro Beckford MD 28-Dec-2016 08:11:14
[2016-12-28] MEDS ORDERED: SODIUM POLYSTYRENE SULFONATE 15 GM/60 ML PO ONE (09:02)
[2016-12-28] MEDS ORDERED: ALBUTEROL SULFATE 0.083% NEB 2.5 MG/3 ML AMPUL NEB ONE (09:02)
[2016-12-28] MEDS ORDERED: HEPARIN SOD (PORCINE) 1,000 UNIT/ML 10 ML VIAL IV PRN (10:10)
[2016-12-28] MEDS ORDERED: LORAZEPAM 1 MG TABLET PO PRN (19:14)
[2016-12-28] MEDS ORDERED: (PENDING PHARMACY ID) (Oxycodone Hcl/Acetaminophen [Oxycodone-Acetaminophen 10-325] 1 TAB) PO PRN (19:14)
[2016-12-28] MEDS ORDERED: (PENDING PHARMACY ID) (Sucroferric Oxyhydroxide [Velphoro] 500 MG) PO PRN (19:14)
[2016-12-28] MEDS ORDERED: DIAZEPAM 5 MG TABLET PO SCH (19:15)
[2016-12-28] MEDS ORDERED: INSULIN DETEMIR 100 UNIT/ML 3 ML PEN SUBCUT SCH (19:15)
[2016-12-28] MEDS ORDERED: (PENDING PHARMACY ID) (Nifedipine [Nifedipine Er] 90 MG) PO SCH (19:15)
[2016-12-28] MEDS ORDERED: LABETALOL HCL 200 MG TABLET PO SCH (19:15)
[2016-12-28] MEDS ORDERED: OXYCODONE-ACETAMINOPHEN 5-325 MG TABLET PO PRN (20:19)
[2016-12-28] MEDS ORDERED: OXYCODONE HCL IR 5 MG TABLET PO PRN (20:20)
--- NOTE | 2016-12-28 21:19 | PDOC CONSULTATION ---
Consultation Consult Date: 12/28/16 Attending physician:: LEVI PATRICK Consult reason:: I was asked by Dr. Patrick from the emergency room to see this patient for emergency dialysis due to acute pulmonary edema and hyperkalemia in a patient with history of end-stage renal disease. History of Present Illness Admission Date/PCP: 12/28/16 16:35 HILARY HERNANDEZ, History of Present Illness: ERICH GOODMAN is a 31 year old female with history of end-stage renal disease maintenance hemodialysis, diabetes mellitus, hypertension, and coronary artery disease who presented to the emergency room because of progressively worsening shortness of breath. Patient was seen in the emergency room twice in the last couple weeks. On 12/14/2016 she came in with upper respiratory tract infection and was prescribed doxycycline. On from December 25 she was seen again in the emergency room for sinus infection and was prescribed Zithromax. Patient said she proceeded to her regular hemodialysis schedule last Wednesday after the emergency room visit. She said she was not feeling very well so she didn't finish whole treatment but she still had 4 hours of treatment at least according to her. Patient said that her sinus infection persisted and her shortness of breath started to get worse. This morning it has gone even worse so she is presented to the emergency room. She complained of some mild pleuritic chest pain but denies nausea or vomiting or diarrhea. Initial evaluation in the emergency room showed a chest x-ray with evidence of acute pulmonary edema. Her potassium was also elevated at 6.3. Patient required BiPAP in the emergency room. I was then called for emergency dialysis treatment. Patient is supervised on her maintenance hemodialysis by Dr. Gustavo Kwon is an outpatient. She usually dialyzes on Tuesdays, and Saturdays. In the emergency room we initiated emergency dialysis treatment. I saw her at around 12:15 noontime today while on dialysis. She still has labored breathing on BiPAP and has some difficulty with answering questions well on the BiPAP. We attempted to get ultrafiltration of at least 4- 5 L. Past Medical History Cardiac Medical History: Reports: Coronary Artery Disease, Heart Murmur, Hypertension-primary Pulmonary Medical History: Reports: Asthma, Pneumonia Neurological Medical History: Reports: Migraine, Seizures Endocrine Medical History: Reports: Diabetes Mellitus Type 1 Renal/ Medical History: Reports: End Stage Renal Disease - On hemodialysis, Secondary Hyperparathyroidism Malignancy Medical History: GI Medical History: Musculoskeltal Medical History: Skin Medical History: Reports: Psoriasis Psychiatric Medical History: Reports: Depression Infectious Medical History: Hematology Medical History: Reports Anemia of Chronic Kidney Disease Past Surgical History Past Surgical History: Reports: Appendectomy, Cholecystectomy, Dialysis Access Surgery AVF, Vascular Surgery - Left arm fistula; Perm Cath -Right Chest, right arm fistula Social History Information Source: Patient, [facility] Records Smoking Status: Unknown if Ever Smoked Frequency of Alcohol Use: None Hx Recreational Drug Use: No Drugs: None Hx Prescription Drug Abuse: No Family History Family History: Reviewed & Not Pertinent Parental Family History Reviewed: Yes Children Family History Reviewed: No Sibling(s) Family History Reviewed.: No Medication/Allergy Home Medications: Labetalol HCl [Normodyne 200 mg Tablet] 600 mg PO Q8 11/11/16 Lorazepam 2 mg PO Q12HP PRN 11/11/16 Mirtazapine 30 mg PO QHS 11/11/16 Nifedipine [Nifedipine ER] 90 mg PO Q12 11/11/16 Oxycodone HCl/Acetaminophen [Oxycodone-Acetaminophen 10-325] 1 tab PO Q12HP PRN 11/11/16 Paroxetine HCl [Paxil] 60 mg PO QHS 11/11/16 Calcium Carbonate [Tums Chewable 500 mg Tab.chew] 1,000 mg PO QHS 11/12/16 Insulin Detemir [Levemir Flextouch] 30 units SQ BID 11/12/16 Insulin Lispro [Humalog Insulin (Lispro) 100 unit/mL] See Protocol SUBCUT .SLD SCALE PRN 11/12/16 Sucroferric Oxyhydroxide [Velphoro] 1,000 mg PO TID 11/12/16 Sucroferric Oxyhydroxide [Velphoro] 500 mg PO BIDP PRN 11/12/16 Diazepam [Valium 5 mg Tablet] 5 mg PO TID #12 tablet 12/07/16 Allergies/Adverse Reactions: aspirin [Aspirin] Allergy (Verified 11/29/16 17:58) Anaphylaxis ciprofloxacin [From Cipro] Allergy (Verified 11/29/16 17:58) Anaphylaxis clindamycin [Clindamycin] Allergy (Verified 11/29/16 17:58) ibuprofen [From Motrin] Allergy (Verified 11/29/16 17:58) Anaphylaxis lidocaine [From Lidoderm] Allergy (Verified 11/29/16 17:58) Generalized rash tramadol HCl [From Ultram] Allergy (Verified 11/29/16 17:58) vancomycin [Vancomycin] Allergy (Verified 11/29/16 17:58) Shortness of Breath nitroglycerin [Nitroglycerin] Adverse Reaction (Intermediate, Verified 11/29/16 17:58) Joint pain Review of Systems All systems: reviewed and no additional remarkable complaints except as stated Review of Systems: Constitutional: ABSENT: chills, fatigue, fever(s), headache(s), weight gain, weight loss Eyes: ABSENT: visual disturbances Ears: ABSENT: hearing changes Cardiovascular: ABSENT: chest pain, edema, orthropnea, palpitations, admits dyspnea even at rest Respiratory: ABSENT: cough, hemoptysis Gastrointestinal: ABSENT: abdominal pain, constipation, diarrhea, hematemesis, hematochezia, nausea, vomiting Genitourinary: ABSENT: dysuria, hematuria Musculoskeletal: ABSENT: joint swelling Integumentary: ABSENT: rash, wounds Neurological: ABSENT: abnormal gait, abnormal speech, confusion, dizziness, focal weakness, numbness, syncope Psychiatric: ABSENT: anxiety, depression Endocrine: ABSENT: cold intolerance, heat intolerance, polydipsia, polyuria Hematologic/Lymphatic: ABSENT: easy bleeding, easy bruising, lymphadenopathy Physical Exam Vital Signs: Temp Pulse Resp BP Pulse Ox 25 H 155/77 H 99 12/28/16 19:39 12/28/16 19:39 12/28/16 19:39 Exam: General appearance: She is in moderate to severe acute respiratory distress requiring BiPAP, cooperative, well-developed, well-nourished Head exam: PRESENT: atraumatic, normocephalic, her face looks puffy and swollen Eye exam: PRESENT: Conjunctiva [place], EOMI, PERRLA. ABSENT: conjunctival injection, scleral icterus Mouth exam: PRESENT: moist, neck supple, tongue midline Neck exam: PRESENT: full ROM. ABSENT: carotid bruit, JVD, lymphadenopathy, thyromegaly Respiratory exam: PRESENT: Diminished to auscultation bilaterally. Positive occasional rhonchi ABSENT: rales, stridor, wheezes Cardiovascular exam: PRESENT: RRR, +S1, +S2. ABSENT: systolic murmur Pulses: PRESENT: normal radial pulses, normal dorsalis pedis pulses GI/Abdominal exam: PRESENT: normal bowel sounds, soft. ABSENT: guarding, mass, tenderness Rectal exam: deferred Extremities exam: PRESENT: full ROM. ABSENT: calf tenderness, pedal edema Musculoskeletal: PRESENT: full ROM. ABSENT: deformity Neurological exam: PRESENT: alert, Awake, Oriented to person, Oriented to place , Oriented to time, reflexes normal, CN II-XII grossly intact. ABSENT: motor sensory deficit Psychiatric exam: PRESENT: appropriate affect, normal mood. ABSENT: homicidal ideation, suicidal ideation Skin exam: PRESENT: intact, dry, warm. ABSENT: rash Results Laboratory Results: Laboratory 12/28/16 12/28/16 12/28/16 06:59 06:59 06:59 WBC 14.1 H RBC 4.00 Hgb 11.1 L Hct 34.4 L MCV 86 MCH 27.7 MCHC 32.2 RDW 17.7 H Plt Count 367 Seg Neutrophils % 85.3 H Lymphocytes % 6.0 L Monocytes % 3.5 Eosinophils % 3.9 Basophils % 1.3 Absolute Neutrophils 12.0 H Absolute Lymphocytes 0.8 Absolute Monocytes 0.5 Absolute Eosinophils 0.5 Absolute Basophils 0.2 Sodium 142.4 Potassium 6.3 H* Chloride 98 Carbon Dioxide 21 L Anion Gap 23 H BUN 56 H Creatinine 12.04 H Est GFR ( Amer) 4 L Est GFR (Non-Af Amer) 4 L Glucose 128 H POC Glucose Calcium 7.9 L Total Bilirubin 0.7 Direct Bilirubin 0.0 AST 31 ALT 15 Alkaline Phosphatase 144 H Creatine Kinase 188 H CK-MB (CK-2) 1.47 Troponin I 0.015 NT-Pro-B Natriuret Pep 8890 H Total Protein 8.8 H Albumin 4.2 12/28/16 10:03 WBC RBC Hgb Hct MCV MCH MCHC RDW Plt Count Seg Neutrophils % Lymphocytes % Monocytes % Eosinophils % Basophils % Absolute Neutrophils Absolute Lymphocytes Absolute Monocytes Absolute Eosinophils Absolute Basophils Sodium Potassium Chloride Carbon Dioxide Anion Gap BUN Creatinine Est GFR ( Amer) Est GFR (Non-Af Amer) Glucose POC Glucose 155 H Calcium Total Bilirubin Direct Bilirubin AST ALT Alkaline Phosphatase Creatine Kinase CK-MB (CK-2) Troponin I NT-Pro-B Natriuret Pep Total Protein Albumin Impressions: Chest X-Ray 12/28/16 15:09 IMPRESSION: Interval improvement as noted above Assessment & Plan - Diagnosis (1) Acute pulmonary edema Is this a current diagnosis for this admission?: YesPlan: In a patient with end-stage renal disease. Emergent dialysis is required. (2) Hyperkalemia Is this a current diagnosis for this admission?: YesPlan: Emergent dialysis was initiated. She was dialyzed with 1 potassium bath and the first hour in 2 potassium bath thereafter. (3) ESRD (end stage renal disease) on dialysis Is this a current diagnosis for this admission?: YesPlan: We did today for 3 hours, using the patient's AV fistula, with 1 potassium bath during the first hour then 2 potassium bath for the subsequent hours of treatment, blood flow rate of 450 mL per minute, dialysate flow rate of 800 mL per minute, ultrafiltration 45 L as tolerated, regular heparin protocol and no Procrit during dialysis. Patient was maintained on BiPAP throughout the dialysis treatment. After dialysis today patient will be monitored and reevaluated in the morning if she needs another dialysis treatment. Dr. Kwon will be back tomorrow and will assume care from nephrology. (4) Insulin dependent diabetes mellitus Is this a current diagnosis for this admission?: Yes (5) Respiratory distress Is this a current diagnosis for this admission?: Yes (6) Hypertension Qualifiers: Hypertension type: essential hypertension Qualified Code(s): I10 - Essential (primary) hypertension Is this a current diagnosis for this admission?: Yes - Notes Notes: Thank you very much for this consultation. Discussed the case with Dr. Patrick earlier today. - Time Time Spent: Greater than 70 Minutes
[2016-12-28] MEDS ORDERED: (PENDING PHARMACY ID) (Paroxetine Hcl [Paxil] 60 MG) PO SCH (22:00)
[2016-12-28] MEDS ORDERED: (PENDING PHARMACY ID) (Mirtazapine [Mirtazapine] 30 MG) PO SCH (22:00)
[2016-12-28] MEDS: LABETALOL HCL 200 MG TABLET PO SCH (22:59)
[2016-12-28] MEDS: PAROXETINE HCL 20 MG TABLET PO SCH (23:01)
[2016-12-28] MEDS: DIAZEPAM 5 MG TABLET PO SCH (23:01)
[2016-12-28] MEDS: NIFEDIPINE 30 MG TAB.ER.24 PO SCH (23:02)
[2016-12-28] MEDS: CALCIUM CARBONATE 500 MG TAB.CHEW PO SCH (23:02)
[2016-12-28] MEDS: MIRTAZAPINE 15 MG TABLET PO SCH (23:05)
[2016-12-28] MEDS: HEPARIN SOD (PORCINE) 5,000 UNIT/ML 1 ML SYRINGE SUBCUT SCH (23:06)
[2016-12-29] MEDS ORDERED: ONDANSETRON HCL INJ/PF 4 MG/2 ML SDV ONE (00:10)
[2016-12-29] MEDS ORDERED: ONDANSETRON HCL INJ/PF 4 MG/2 ML SDV IV PRN (00:30)
[2016-12-29] MEDS ORDERED: ONDANSETRON HCL INJ/PF 4 MG/2 ML SDV IV ONE (00:45)
[2016-12-29] MEDS ORDERED: INSULIN DETEMIR 100 UNIT/ML 3 ML PEN SUBCUT ONE (01:32)
[2016-12-29] MEDS: INSULIN DETEMIR 100 UNIT/ML 3 ML PEN SUBCUT SCH ×2 (02:00→09:59)
[2016-12-29] MEDS: LABETALOL HCL 200 MG TABLET PO SCH ×3 (05:24→22:39)
[2016-12-29] MEDS: HEPARIN SOD (PORCINE) 5,000 UNIT/ML 1 ML SYRINGE SUBCUT SCH ×3 (05:24→22:38)
[2016-12-29] MEDS: DIAZEPAM 5 MG TABLET PO SCH ×3 (05:24→22:39)
[2016-12-29] MEDS: NIFEDIPINE 30 MG TAB.ER.24 PO SCH ×2 (10:00→22:40)
[2016-12-29] MEDS ORDERED: HEPARIN SOD (PORCINE) 1,000 UNIT/ML 10 ML VIAL IV PRN (12:53)
--- NOTE | 2016-12-29 16:10 | PDOC PROGRESS REPORT ---
Subjective Progress Note for:: 12/29/16 Subjective:: Seen today.Admitted with Acute CHF.On going issues with non compliance with diet and meds.Had HD yesterday and extracted almost 5 L of fluid with good relief of dyspnea .Today feels lots better.No chest pains, cough, fever. Physical Exam Vital Signs: Temp Pulse Resp BP Pulse Ox 98.4 F 84 20 135/62 H 91 L 12/29/16 11:44 12/29/16 11:44 12/29/16 11:44 12/29/16 11:44 12/29/16 11:44 Intake & Output 12/28/16 12/29/16 12/30/16 06:59 06:59 06:59 Intake Total 350 Output Total 0 Balance 350 Weight 114.8 kg General appearance: PRESENT: no acute distress Respiratory exam: PRESENT: clear to auscultation freddy. ABSENT: crackles, rhonchi Cardiovascular exam: PRESENT: +S1, +S2 GI/Abdominal exam: PRESENT: soft. ABSENT: distended, tenderness Results Impressions: Chest X-Ray 12/28/16 15:09 IMPRESSION: Interval improvement as noted above Assessment & Plan - Diagnosis (1) Acute on chronic systolic CHF (congestive heart failure) Plan: Much improved. (2) End stage renal disease on dialysis due to type 1 diabetes mellitus Plan: If in hospital tomorrow will dialyse here . Otherwise get HD as usual as OP at [facility].Discussed on compliance with diet and fluids and meds. (3) Hyperkalemia Is this a current diagnosis for this admission?: YesPlan: Monitor.Adv on low K diet.Discussed on implications of high Potassium. (4) Insulin dependent diabetes mellitus Is this a current diagnosis for this admission?: Yes
--- NOTE | 2016-12-29 19:25 | PDOC H&P ---
History of Present Illness Admission Date/PCP: 12/28/16 19:18 HILARY HERNANDEZ, History of Present Illness: Patient is a 31-year-old female with end-stage renal disease on maintenance hemodialysis, she did emergency room with shortness of breath, chest x-ray showed pulmonary edema, she has had multiple admission for the same problem, and she has multiple ED visits. In the emergency room she was hemodialyzed on emergency basis. Past Medical History Cardiac Medical History: Reports: Hypertension, Heart Murmur Pulmonary Medical History: Reports: Asthma, Pneumonia Neurological Medical History: Reports: Migraine, Seizures Endocrine Medical History: Reports: Diabetes Mellitus Type 1 Renal/ Medical History: Reports: End Stage Renal Disease - On hemodialysis Malignancy Medical History: GI Medical History: Musculoskeltal Medical History: Skin Medical History: Reports: Psoriasis Psychiatric Medical History: Reports: Depression Hematology: Reports: Anemia Infectious Medical History: Past Surgical History Past Surgical History: Reports: Appendectomy, Cholecystectomy, Vascular Surgery - Left arm fistula; Perm Cath -Right Chest, right arm fistula Social History Smoking Status: Never Smoker Frequency of Alcohol Use: None Hx Recreational Drug Use: No Drugs: None Hx Prescription Drug Abuse: No - Advance Directive Resuscitation Status: Full Code Family History Family History: None, Reviewed & Not Pertinent Parental Family History Reviewed: Yes Children Family History Reviewed: Yes Sibling(s) Family History Reviewed.: Yes Medication/Allergy Home Medications: Labetalol HCl [Normodyne 200 mg Tablet] 600 mg PO Q8 11/11/16 Lorazepam 2 mg PO Q12HP PRN 11/11/16 Mirtazapine 30 mg PO QHS 11/11/16 Nifedipine [Nifedipine ER] 90 mg PO Q12 11/11/16 Oxycodone HCl/Acetaminophen [Oxycodone-Acetaminophen 10-325] 1 tab PO Q12HP PRN 11/11/16 Paroxetine HCl [Paxil] 60 mg PO QHS 11/11/16 Calcium Carbonate [Tums Chewable 500 mg Tab.chew] 1,000 mg PO QHS 11/12/16 Insulin Detemir [Levemir Flextouch] 30 units SQ BID 11/12/16 Insulin Lispro [Humalog Insulin (Lispro) 100 unit/mL] See Protocol SUBCUT .SLD SCALE PRN 11/12/16 Sucroferric Oxyhydroxide [Velphoro] 1,000 mg PO TID 11/12/16 Sucroferric Oxyhydroxide [Velphoro] 500 mg PO BIDP PRN 11/12/16 Diazepam [Valium 5 mg Tablet] 5 mg PO TID #12 tablet 12/07/16 Allergies/Adverse Reactions: aspirin [Aspirin] Allergy (Verified 11/29/16 17:58) Anaphylaxis ciprofloxacin [From Cipro] Allergy (Verified 11/29/16 17:58) Anaphylaxis clindamycin [Clindamycin] Allergy (Verified 11/29/16 17:58) ibuprofen [From Motrin] Allergy (Verified 11/29/16 17:58) Anaphylaxis lidocaine [From Lidoderm] Allergy (Verified 11/29/16 17:58) Generalized rash tramadol HCl [From Ultram] Allergy (Verified 11/29/16 17:58) vancomycin [Vancomycin] Allergy (Verified 11/29/16 17:58) Shortness of Breath nitroglycerin [Nitroglycerin] Adverse Reaction (Intermediate, Verified 11/29/16 17:58) Joint pain Review of Systems Constitutional: PRESENT: as per HPI Respiratory: PRESENT: dyspnea Neurological: ABSENT: as per HPI, abnormal gait, abnormal movements, abnormal speech, confusion, convulsions, dizziness, focal weakness, frequent falls, lack of coordination, memory loss, numbness, paresthesias, restless legs, syncope, tingling, tremor(s), vertigo, weakness, other Endocrine: ABSENT: as per HPI, cold intolerance, flushing, heat intolerance, menstrual abnormalities, polydipsia, polyphagia, polyuria, other Physical Exam Vital Signs: Temp Pulse Resp BP Pulse Ox 98.6 F 82 18 134/58 H 90 L 12/29/16 15:34 12/29/16 15:34 12/29/16 15:34 12/29/16 15:34 12/29/16 15:34 Intake & Output 12/28/16 12/29/16 12/30/16 06:59 06:59 06:59 Intake Total 350 720 Output Total 0 0 Balance 350 720 Weight 114.8 kg 114.8 kg General appearance: PRESENT: mild distress Eye exam: PRESENT: PERRLA Respiratory exam: PRESENT: crackles Cardiovascular exam: PRESENT: +S1, +S2 GI/Abdominal exam: PRESENT: soft Neurological exam: PRESENT: alert Results Impressions: Chest X-Ray 12/28/16 15:09 IMPRESSION: Interval improvement as noted above Assessment & Plan - Diagnosis (1) Acute pulmonary edema Is this a current diagnosis for this admission?: Yes (2) Chronic diastolic (congestive) heart failure Is this a current diagnosis for this admission?: Yes (3) End stage renal disease on dialysis due to type 1 diabetes mellitus Is this a current diagnosis for this admission?: Yes
[2016-12-29] MEDS: CALCIUM CARBONATE 500 MG TAB.CHEW PO SCH (22:38)
[2016-12-29] MEDS: PAROXETINE HCL 20 MG TABLET PO SCH (22:39)
[2016-12-29] MEDS: MIRTAZAPINE 15 MG TABLET PO SCH (22:52)
[2016-12-30] MEDS: INSULIN DETEMIR 100 UNIT/ML 3 ML PEN SUBCUT SCH ×3 (00:05→22:08)
[2016-12-30] MEDS: HEPARIN SOD (PORCINE) 5,000 UNIT/ML 1 ML SYRINGE SUBCUT SCH ×3 (05:17→22:18)
[2016-12-30] MEDS: DIAZEPAM 5 MG TABLET PO SCH ×3 (05:17→22:18)
[2016-12-30] MEDS: LABETALOL HCL 200 MG TABLET PO SCH ×3 (05:17→22:16)
[2016-12-30 06:14] LABS: HEMATOCRIT 30.1 % (36.0-47.0); HEMOGLOBIN 9.7 g/dL (12.0-15.5); MEAN CORPUSCULAR HEMOGLOBIN 27.8 pg (27.0-33.4); MEAN CORPUSCULAR HGB CONC 32.1 g/dL (32.0-36.0); MEAN CORPUSCULAR VOLUME 87 fl (80-97); RED BLOOD COUNT 3.47 10^6/uL (3.72-5.28); RED CELL DISTRIBUTION WIDTH 16.9 % (11.5-14.0); WHITE BLOOD COUNT 7.8 10^3/uL (4.0-10.5)
[2016-12-30 06:39] LABS: ANION GAP 19 (5-19); BLOOD UREA NITROGEN 57 mg/dL (7-20); CALCIUM 7.9 mg/dL (8.4-10.2); CARBON DIOXIDE 24 mmol/L (22-30); CHLORIDE 96 mmol/L (98-107); CREATININE RESULT 11.54 mg/dL (0.52-1.25); GLUCOSE 93 mg/dL (75-110); POTASSIUM 4.9 mmol/L (3.6-5.0); SODIUM 138.5 mmol/L (137-145)
[2016-12-30] MEDS ORDERED: HEPARIN SOD (PORCINE) 1,000 UNIT/ML 10 ML VIAL IV PRN (09:55)
[2016-12-30] MEDS: NIFEDIPINE 30 MG TAB.ER.24 PO SCH ×2 (12:33→22:18)
--- NOTE | 2016-12-30 15:24 | PDOC PROGRESS REPORT ---
Subjective Progress Note for:: 12/30/16 Subjective:: Patient was seen on dialysis today. She is undergoing dialysis without any issues. Orders were discussed with the treating nurse. Breathing is a whole lot better. She denies any history of chest pains fever or chills. Physical Exam Vital Signs: Temp Pulse Resp BP Pulse Ox 97.4 F 84 16 149/84 H 96 12/30/16 12:46 12/30/16 14:00 12/30/16 12:46 12/30/16 12:46 12/30/16 12:46 Intake & Output 12/29/16 12/30/16 12/31/16 06:59 06:59 06:59 Intake Total 350 1127 Output Total 0 100 Balance 350 1027 Weight 114.8 kg 114.8 kg General appearance: PRESENT: no acute distress Respiratory exam: PRESENT: clear to auscultation freddy. ABSENT: crackles Cardiovascular exam: PRESENT: +S1, +S2 GI/Abdominal exam: PRESENT: soft. ABSENT: distended, tenderness Results Laboratory Results: 12/30/16 05:35 12/30/16 05:35 12/30/16 12/30/16 05:35 05:35 WBC 7.8 RBC 3.47 L Hgb 9.7 L Hct 30.1 L MCV 87 MCH 27.8 MCHC 32.1 RDW 16.9 H Plt Count 320 Sodium 138.5 Potassium 4.9 Chloride 96 L Carbon Dioxide 24 Anion Gap 19 BUN 57 H Creatinine 11.54 H Est GFR ( Amer) 5 L Est GFR (Non-Af Amer) 4 L Glucose 93 Calcium 7.9 L Impressions: Chest X-Ray 12/28/16 15:09 IMPRESSION: Interval improvement as noted above Assessment & Plan - Diagnosis (1) Acute on chronic systolic CHF (congestive heart failure) Plan: Resolved. Discussed compliance with diet and medications. (2) End stage renal disease on dialysis due to type 1 diabetes mellitus Is this a current diagnosis for this admission?: YesPlan: Patient is seen on dialysis. She is undergoing dialysis without any issues. Will try to extract at least 3 L of fluid. Orders discussed with the treating nurse. (3) Hyperkalemia Is this a current diagnosis for this admission?: YesPlan: Resolved with the dialysis. Advised compliance with diet and medications. (4) Insulin dependent diabetes mellitus Is this a current diagnosis for this admission?: Yes
--- NOTE | 2016-12-30 17:09 | PDOC PROGRESS REPORT ---
Subjective Progress Note for:: 12/29/16 Subjective:: Patient was seen by the bedside, she feels somewhat better Physical Exam Vital Signs: Temp Pulse Resp BP Pulse Ox 98.6 F 82 18 134/58 H 90 L 12/29/16 15:34 12/29/16 15:34 12/29/16 15:34 12/29/16 15:34 12/29/16 15:34 Intake & Output 12/28/16 12/29/16 12/30/16 06:59 06:59 06:59 Intake Total 350 720 Output Total 0 0 Balance 350 720 Weight 114.8 kg 114.8 kg General appearance: PRESENT: no acute distress Eye exam: PRESENT: PERRLA Respiratory exam: PRESENT: rhonchi Cardiovascular exam: PRESENT: +S1, +S2 GI/Abdominal exam: PRESENT: soft Neurological exam: PRESENT: alert Results Impressions: Chest X-Ray 12/28/16 15:09 IMPRESSION: Interval improvement as noted above Assessment & Plan - Diagnosis (1) Acute pulmonary edema Is this a current diagnosis for this admission?: Yes (2) Chronic diastolic (congestive) heart failure Is this a current diagnosis for this admission?: Yes (3) End stage renal disease on dialysis due to type 1 diabetes mellitus Is this a current diagnosis for this admission?: Yes
--- NOTE | 2016-12-30 17:21 | PDOC PROGRESS REPORT ---
Subjective Progress Note for:: 12/30/16 Subjective:: She thinks part of her problem is the fact that she was exposed to molds in her residence, I'm not sure that would explain the recurrent acute pulmonary edema on auscultation of her chest She sounds clear today, but I we'll request CT chest of a lung to further define the lung in the more detail and if the CT chest is abnormal then will the probably could get pulmonary to see her and possibly get bronchoscopy if pulmonary agreement with the plan Physical Exam Vital Signs: Temp Pulse Resp BP Pulse Ox 98.2 F 83 16 137/58 H 92 12/30/16 15:29 12/30/16 15:29 12/30/16 15:29 12/30/16 15:29 12/30/16 15:29 Intake & Output 12/29/16 12/30/16 12/31/16 06:59 06:59 06:59 Intake Total 350 1127 3 Output Total 0 100 Balance 350 1027 3 Weight 114.8 kg 114.8 kg General appearance: PRESENT: no acute distress Eye exam: PRESENT: PERRLA Respiratory exam: PRESENT: clear to auscultation freddy Cardiovascular exam: PRESENT: +S1, +S2 GI/Abdominal exam: PRESENT: soft Results Laboratory Results: 12/30/16 05:35 12/30/16 05:35 12/30/16 12/30/16 05:35 05:35 WBC 7.8 RBC 3.47 L Hgb 9.7 L Hct 30.1 L MCV 87 MCH 27.8 MCHC 32.1 RDW 16.9 H Plt Count 320 Sodium 138.5 Potassium 4.9 Chloride 96 L Carbon Dioxide 24 Anion Gap 19 BUN 57 H Creatinine 11.54 H Est GFR ( Amer) 5 L Est GFR (Non-Af Amer) 4 L Glucose 93 Calcium 7.9 L Impressions: Chest X-Ray 12/28/16 15:09 IMPRESSION: Interval improvement as noted above Assessment & Plan - Diagnosis (1) Acute pulmonary edema Is this a current diagnosis for this admission?: Yes (2) Chronic diastolic (congestive) heart failure Is this a current diagnosis for this admission?: Yes (3) End stage renal disease on dialysis due to type 1 diabetes mellitus Is this a current diagnosis for this admission?: Yes
[2016-12-30] MEDS: PAROXETINE HCL 20 MG TABLET PO SCH (22:18)
[2016-12-30] MEDS: CALCIUM CARBONATE 500 MG TAB.CHEW PO SCH (22:18)
[2016-12-30] MEDS: MIRTAZAPINE 15 MG TABLET PO SCH (22:19)
[2016-12-31] MEDS: LABETALOL HCL 200 MG TABLET PO SCH ×3 (06:35→22:17)
[2016-12-31] MEDS: DIAZEPAM 5 MG TABLET PO SCH ×3 (06:35→22:18)
[2016-12-31] MEDS: HEPARIN SOD (PORCINE) 5,000 UNIT/ML 1 ML SYRINGE SUBCUT SCH ×3 (06:35→22:25)
[2016-12-31] MEDS: NIFEDIPINE 30 MG TAB.ER.24 PO SCH ×2 (10:29→22:18)
[2016-12-31] MEDS: INSULIN DETEMIR 100 UNIT/ML 3 ML PEN SUBCUT SCH ×2 (10:31→22:18)
--- NOTE | 2016-12-31 20:37 | PDOC PROGRESS REPORT ---
Subjective Progress Note for:: 12/31/16 Subjective:: CT chest was done yesterday, it showed diffuse ground glass opacities throughout both lungs, this suggest pulmonary edema. A 2-D echo will be ordered to assess LV function Physical Exam Vital Signs: Temp Pulse Resp BP Pulse Ox 97.4 F 74 20 129/54 H 98 12/31/16 19:33 12/31/16 19:33 12/31/16 19:33 12/31/16 19:33 12/31/16 19:33 Intake & Output 12/30/16 12/31/16 01/01/17 06:59 06:59 06:59 Intake Total 1127 540 664 Output Total 100 4300 Balance 1027 -8990 664 Weight 114.8 kg 111.8 kg General appearance: PRESENT: no acute distress Eye exam: PRESENT: PERRLA Respiratory exam: PRESENT: clear to auscultation freddy Cardiovascular exam: PRESENT: +S1, +S2 GI/Abdominal exam: PRESENT: soft Neurological exam: PRESENT: alert Results Laboratory Results: 12/30/16 05:35 12/30/16 05:35 Impressions: Chest X-Ray 12/28/16 15:09 IMPRESSION: Interval improvement as noted above Chest CT 12/30/16 00:00 IMPRESSION: Small areas of patchy consolidation are present in the left upper and lower lobes. There are diffuse ground-glass opacities present throughout both lungs. No pleural effusion. Assessment & Plan - Diagnosis (1) Acute pulmonary edema Is this a current diagnosis for this admission?: YesPlan: 2-D echo is ordered (2) Chronic diastolic (congestive) heart failure Is this a current diagnosis for this admission?: Yes (3) End stage renal disease on dialysis due to type 1 diabetes mellitus Is this a current diagnosis for this admission?: Yes
[2016-12-31] MEDS: PAROXETINE HCL 20 MG TABLET PO SCH (22:16)
[2016-12-31] MEDS: MIRTAZAPINE 15 MG TABLET PO SCH (22:16)
[2016-12-31] MEDS: CALCIUM CARBONATE 500 MG TAB.CHEW PO SCH (22:16)
[2017-01-01] MEDS: HEPARIN SOD (PORCINE) 5,000 UNIT/ML 1 ML SYRINGE SUBCUT SCH ×2 (05:12→13:11)
[2017-01-01] MEDS: LABETALOL HCL 200 MG TABLET PO SCH ×2 (05:12→13:07)
[2017-01-01 05:47] LABS: ABSOLUTE BASOPHILS # (AUTO) 0.1 10^3/uL (0.0-0.2); ABSOLUTE EOSINOPHILS # (AUTO) 0.7 10^3/uL (0.0-0.6); ABSOLUTE LYMPHOCYTES (AUTO) 1.7 10^3/uL (0.5-4.7); ABSOLUTE MONOCYTES (AUTO) 0.5 10^3/uL (0.1-1.4); ABSOLUTE NEUT (AUTO) 4.6 10^3/uL (1.7-8.2); BASOPHILS % (AUTO) 1.2 % (0-2); HEMATOCRIT 34.4 % (36.0-47.0); HGB HCT DIFFERENCE -1.4; MEAN CORPUSCULAR HEMOGLOBIN 27.5 pg (27.0-33.4); MEAN CORPUSCULAR VOLUME 86 fl (80-97); MONOCYTES % (AUTO) 6.5 % (3-13); RED BLOOD COUNT 3.99 10^6/uL (3.72-5.28); SEGMENTED NEUTROPHILS % (AUTO) 60.3 % (42-78); WHITE BLOOD COUNT 7.6 10^3/uL (4.0-10.5)
[2017-01-01 06:09] LABS: ANION GAP 19 (5-19); BLOOD UREA NITROGEN 53 mg/dL (7-20); CALCIUM 8.8 mg/dL (8.4-10.2); CARBON DIOXIDE 24 mmol/L (22-30); CHLORIDE 95 mmol/L (98-107); CREATININE RESULT 10.95 mg/dL (0.52-1.25); GLUCOSE 99 mg/dL (75-110); SODIUM 138.2 mmol/L (137-145)
[2017-01-01] MEDS: DIAZEPAM 5 MG TABLET PO SCH ×2 (06:16→13:08)
[2017-01-01] MEDS ORDERED: HEPARIN SOD (PORCINE) 1,000 UNIT/ML 10 ML VIAL IV PRN ×2 (10:16→10:17)
--- NOTE | 2017-01-01 11:24 | PDOC PROGRESS REPORT ---
Subjective Progress Note for:: 01/01/17 Subjective:: Patient was seen on dialysis today. She is undergoing dialysis without any issues. Orders were discussed with the treating nurse. Breathing is back to normal. She denies any history of chest pains fever or chills. Physical Exam Vital Signs: Temp Pulse Resp BP Pulse Ox 97.7 F 74 20 123/64 100 01/01/17 03:24 01/01/17 07:00 01/01/17 03:24 01/01/17 03:24 01/01/17 03:24 Intake & Output 12/31/16 01/01/17 01/02/17 06:59 06:59 06:59 Intake Total 540 1111 Output Total 4300 0 Balance -3760 1111 Weight 111.8 kg 111.7 kg General appearance: PRESENT: no acute distress Respiratory exam: PRESENT: clear to auscultation freddy. ABSENT: crackles, rhonchi Cardiovascular exam: PRESENT: +S1, +S2 GI/Abdominal exam: PRESENT: soft. ABSENT: distended, tenderness Results Laboratory Results: 01/01/17 05:34 01/01/17 05:34 01/01/17 01/01/17 05:34 05:34 WBC 7.6 RBC 3.99 Hgb 11.0 L Hct 34.4 L MCV 86 MCH 27.5 MCHC 32.0 RDW 17.0 H Plt Count 326 Seg Neutrophils % 60.3 Lymphocytes % 23.0 Monocytes % 6.5 Eosinophils % 9.0 H Basophils % 1.2 Absolute Neutrophils 4.6 Absolute Lymphocytes 1.7 Absolute Monocytes 0.5 Absolute Eosinophils 0.7 H Absolute Basophils 0.1 Sodium 138.2 Potassium 6.0 H* Chloride 95 L Carbon Dioxide 24 Anion Gap 19 BUN 53 H Creatinine 10.95 H Est GFR ( Amer) 5 L Est GFR (Non-Af Amer) 4 L Glucose 99 Calcium 8.8 Impressions: Chest X-Ray 12/28/16 15:09 IMPRESSION: Interval improvement as noted above Chest CT 12/30/16 00:00 IMPRESSION: Small areas of patchy consolidation are present in the left upper and lower lobes. There are diffuse ground-glass opacities present throughout both lungs. No pleural effusion. Assessment & Plan - Diagnosis (1) Acute on chronic systolic CHF (congestive heart failure) Plan: Resolved. Advised proper dietary compliance and taking medications and being faithful to going for dialysis in the future. All these advises unfortunately has fallen on deaf years which is sad over the last many years. (2) End stage renal disease on dialysis due to type 1 diabetes mellitus Is this a current diagnosis for this admission?: YesPlan: Patient is seen on dialysis. She is undergoing dialysis without any issues. Will try to extract at least 2- 3 L of fluid. She is on a 2K bath and the potassium should respond. Advised on proper diet. Orders discussed with the treating nurse. (3) Hyperkalemia Is this a current diagnosis for this admission?: YesPlan: Will respond with the dialysis. Advised compliance with diet and medications. (4) Insulin dependent diabetes mellitus Is this a current diagnosis for this admission?: Yes
[2017-01-01] MEDS: NIFEDIPINE 30 MG TAB.ER.24 PO SCH (13:07)
[2017-01-01] MEDS: INSULIN DETEMIR 100 UNIT/ML 3 ML PEN SUBCUT SCH (13:11)
--- NOTE | 2017-01-01 15:23 | PDOC DISCHARGE SUMMARY ---
General - Admit/Disc Date/PCP Admission Date/Primary Care Provider: 12/28/16 19:18 HILARY HERNANDEZ MD Discharge Date: 01/01/17 - Discharge Diagnosis (1) Acute pulmonary edema Is this a current diagnosis for this admission?: Yes (2) Chronic diastolic (congestive) heart failure Is this a current diagnosis for this admission?: Yes (3) End stage renal disease on dialysis due to type 1 diabetes mellitus Is this a current diagnosis for this admission?: Yes - Additional Information Resuscitation Status: Full Code Discharge Activity: Activity As Tolerated, Balance Activity w/Rest, Weigh Daily Home Medications: Labetalol HCl [Normodyne 200 mg Tablet] 600 mg PO Q8 11/11/16 Lorazepam 2 mg PO Q12HP PRN 11/11/16 Mirtazapine 30 mg PO QHS 11/11/16 Nifedipine [Nifedipine ER] 90 mg PO Q12 11/11/16 Oxycodone HCl/Acetaminophen [Oxycodone-Acetaminophen 10-325] 1 tab PO Q12HP PRN 11/11/16 Paroxetine HCl [Paxil] 60 mg PO QHS 11/11/16 Calcium Carbonate [Tums Chewable 500 mg Tab.chew] 1,000 mg PO QHS 11/12/16 Insulin Detemir [Levemir Flextouch] 30 units SQ BID 11/12/16 Insulin Lispro [Humalog Insulin (Lispro) 100 unit/mL] See Protocol SUBCUT .SLD SCALE PRN 11/12/16 Sucroferric Oxyhydroxide [Velphoro] 1,000 mg PO TID 11/12/16 Sucroferric Oxyhydroxide [Velphoro] 500 mg PO BIDP PRN 11/12/16 Diazepam [Valium 5 mg Tablet] 5 mg PO TID #12 tablet 12/07/16 History of Present Illness History of Present Illness: Patient is a 31-year-old female with end-stage renal disease on maintenance hemodialysis, she did emergency room with shortness of breath, chest x-ray showed pulmonary edema, she has had multiple admission for the same problem, and she has multiple ED visits. In the emergency room she was hemodialyzed on emergency basis. Hospital Course Hospital Course: Patient was admitted because of acute pulmonary edema, she was hemodialyzed, she has end-stage renal disease on maintenance hemodialysis. She was seen by nephrology, Dr. Gustavo Kwon, a 2-D echo was done it showed preserved ejection fraction of the left ventricle Physical Exam Vital Signs: Temp Pulse Resp BP Pulse Ox 97.7 F 79 20 123/64 100 01/01/17 03:24 01/01/17 14:00 01/01/17 03:24 01/01/17 03:24 01/01/17 03:24 Intake & Output 12/31/16 01/01/17 01/02/17 06:59 06:59 06:59 Intake Total 540 1111 355 Output Total 4300 0 Balance -3760 1111 355 Weight 111.8 kg 111.7 kg General appearance: PRESENT: no acute distress, well-developed, well-nourished Head exam: PRESENT: atraumatic, normocephalic Eye exam: PRESENT: conjunctiva pink, EOMI, PERRLA Ear exam: PRESENT: normal external ear exam Mouth exam: PRESENT: moist, tongue midline Neck exam: PRESENT: full ROM Cardiovascular exam: PRESENT: RRR Vascular exam: PRESENT: normal capillary refill GI/Abdominal exam: PRESENT: normal bowel sounds, soft Rectal exam: PRESENT: deferred Neurological exam: PRESENT: alert, awake, oriented to person, oriented to place , oriented to time, oriented to situation, CN II-XII grossly intact Psychiatric exam: PRESENT: appropriate affect, normal mood Skin exam: PRESENT: dry, intact, warm Results Laboratory Results: 01/01/17 05:34 01/01/17 05:34 01/01/17 01/01/17 05:34 05:34 WBC 7.6 RBC 3.99 Hgb 11.0 L Hct 34.4 L MCV 86 MCH 27.5 MCHC 32.0 RDW 17.0 H Plt Count 326 Seg Neutrophils % 60.3 Lymphocytes % 23.0 Monocytes % 6.5 Eosinophils % 9.0 H Basophils % 1.2 Absolute Neutrophils 4.6 Absolute Lymphocytes 1.7 Absolute Monocytes 0.5 Absolute Eosinophils 0.7 H Absolute Basophils 0.1 Sodium 138.2 Potassium 6.0 H* Chloride 95 L Carbon Dioxide 24 Anion Gap 19 BUN 53 H Creatinine 10.95 H Est GFR ( Amer) 5 L Est GFR (Non-Af Amer) 4 L Glucose 99 Calcium 8.8 Impressions: Chest CT 12/30/16 00:00 IMPRESSION: Small areas of patchy consolidation are present in the left upper and lower lobes. There are diffuse ground-glass opacities present throughout both lungs. No pleural effusion. Chest X-Ray 01/01/17 00:00 IMPRESSION: Minimal perihilar airspace disease right greater than left, suspect very mild pulmonary edema.
[2017-01-01 15:40] VITALS: BP 128/58
--- NOTE | 2017-01-01 18:32 | XCELERA REPORT ---
[address] [address] Transthoracic Echocardiogram Report Name: ERICH GOODMAN Age: 31 yrs Gender: Female : 1985 Patient Status: Inpatient Patient Location: [id number]\S\326\S\A Study Date: 01/01/2017 01:17 PM Height: 67 in Weight: 246 lb BSA: 2.2 m2 Procedure: A complete two-dimensional transthoracic echocardiogram was performed (2D, M-mode, spectral and color flow Doppler). The study was technically difficult with many images being suboptimal in quality. Reason For Study: CHF Ordering Physician: HILARY HERNANDEZ Performed By: Alvaro Duggan Interpretation Summary The left ventricular ejection fraction is normal. There is moderate concentric left ventricular hypertrophy. The left ventricle is grossly normal size. Doppler measurements suggest pseudonormalized left ventricular relaxation, which is associated with grade II/IV or mild to moderate diastolic dysfunction Wall motion cannot be accurately commented on, but no definite regional wall motion abnormalities noted. Borderline right ventricular enlargement. The right atrium is normal in size The left atrium is mildly dilated. There is a trace amount of mitral regurgitation There is no mitral valve stenosis. There is no aortic valve stenosis There is a trace amount of aortic regurgitation There is no pericardial effusion. MMode/2D Measurements \T\ Calculations RVDd: 2.6 cm LVIDd: 4.8 cm FS: 37.2 % Ao root diam: 2.8 cm IVSd: 1.1 cm LVIDs: 3.0 cm EDV(Teich): 109.8 ml LVPWd: 1.3 cm ESV(Teich): 36.2 ml Ao root area: 6.2 cm2 EF(Teich): 67.0 % LA dimension: 3.9 cm Doppler Measurements \T\ Calculations MV E max niranjan: MV P1/2t max niranjan: Ao V2 max: AI max niranjan: 96.5 cm/sec 99.3 cm/sec 181.6 cm/sec 357.0 cm/sec MV A max niranjan: MV P1/2t: 53.2 msec Ao max PG: AI max P.6 cm/sec 13.2 mmHg 51.0 mmHg MV E/A: 1.1 MVA(P1/2t): 4.1 cm2 AI dec slope: MV dec slope: 546.6 cm/sec2 181.8 cm/sec2 MV dec time: AI P1/2t: 0.18 sec 575.2 msec LV V1 max PG: PA V2 max: TR max niranjan: RAP systole: 4.1 mmHg 112.4 cm/sec 245.8 cm/sec 10.0 mmHg LV V1 max: PA max P.1 mmHg TR max P.9 cm/sec 24.2 mmHg RVSP(TR): 34.2 mmHg Left Ventricle The left ventricle is grossly normal size. There is moderate concentric left ventricular hypertrophy. The left ventricular ejection fraction is normal. Doppler measurements suggest pseudonormalized left ventricular relaxation, which is associated with grade II/IV or mild to moderate diastolic dysfunction. Wall motion cannot be accurately commented on, but no definite regional wall motion abnormalities noted. Right Ventricle Borderline right ventricular enlargement. There is normal right ventricular wall thickness. The right ventricular systolic function is normal. Atria The right atrium is normal in size. The left atrium is mildly dilated. Interarterial septum not well visualized and not well dopplered. Cannot comment on ASD/PFO presence. Mitral Valve The mitral valve is grossly normal. There is no mitral valve stenosis. There is a trace amount of mitral regurgitation. Aortic Valve The aortic valve is mildly calcified. There is no aortic valve stenosis. There is a trace amount of aortic regurgitation. Tricuspid Valve The tricuspid valve is not well visualized, but is grossly normal. There is no tricuspid stenosis. There is a trace or physiologic amount of tricuspid regurgitation. There is mild pulmonary hypertension by echo. Right ventricular systolic pressure is estimated to be elevated at 30-40mmHg. Pulmonic Valve The pulmonic valve is not well visualized. Great Vessels The aortic root is not well visualized. The inferior vena cava appeared normal and decreased > 50% with respiration (RAP 5-10 mmHg). Effusions There is no pericardial effusion. : HILARY HERNANDEZ > Daniela Lemons
== END 2017-01-01 16:33 | disposition home or self-care (01) | DRG 291 ==
LOC: ER 06:44 → UNDOADMIN 16:35 → EH 16:35 → 4N 22:20 → 2N 12-29 02:52 → 3S 12-29 21:47
PROVIDERS: ADMIT Internal Medicine; ATTEND Internal Medicine
PROC: 5A1D60Z (ICD-10-PCS; principal; 2016-12-30)
DX: I13.2 Hypertensive heart and chronic kidney disease with heart failure and with stage 5 chronic kidney disease, or end stage renal disease (principal); I50.23 Acute on chronic systolic (congestive) heart failure; N18.6 End stage renal disease; E87.6 Hypokalemia; E10.22 Type 1 diabetes mellitus with diabetic chronic kidney disease; J45.909 Unspecified asthma, uncomplicated; L40.9 Psoriasis, unspecified; F32.9 Major depressive disorder, single episode, unspecified; D63.1 Anemia in chronic kidney disease; I25.10 Atherosclerotic heart disease of native coronary artery without angina pectoris; Z79.4 Long term (current) use of insulin; Z88.1 Allergy status to other antibiotic agents; Z88.6 Allergy status to analgesic agent; Z88.8 Allergy status to other drugs, medicaments and biological substances; Z99.2 Dependence on renal dialysis; Z90.49 Acquired absence of other specified parts of digestive tract; Z95.9 Presence of cardiac and vascular implant and graft, unspecified
CPT/HCPCS: 36415; 71010; 71020; 71250; 80048; 80053; 82550; 82553; 82962; 83880; 84484; 85025; 85027; 87040; 93005; 93010; 93306; 94640; 94660; 96374; 99291; J0610; J1644; J1815; J2405

== ENCOUNTER → 2017-01-07 | Outpatient (CLI) | payer MEDICARE, MEDICAID | LOC: OD 09:29 | PROVIDERS: ATTEND Pain Medicine Pain Medicine | DX: Z79.891 Long term (current) use of opiate analgesic (principal) | CPT/HCPCS: 36415 ==

== ENCOUNTER 2017-01-13 01:58 | Observation (INO) | payer MEDICARE, MEDICAID ==
[2017-01-13] MEDS ORDERED: IPRATROPIUM/ALBUTEROL 0.5-2.5 MG/3 ML AMPUL NEB ONE (02:43)
--- NOTE | 2017-01-13 03:15 | ER Document Report ---
ED Respiratory Problem - General Chief Complaint: Shortness Of Breath Stated Complaint: DIFFICULTY BREATHING Notes: The patient is a 31-year-old female, PMHx ESRD (MWF), CHF, asthma, presents by EMS with shortness of breath. Her last dialysis session was 2 days ago and she is due this morning. She was placed on CPAP by EMS and given an albuterol. She is here in the emergency room frequently for these exacerbations. She denies chest pain, fevers, cough, increased leg swelling, abdominal pain, nausea , vomiting or rash. TRAVEL OUTSIDE OF THE [place] IN LAST 30 DAYS: No - Related Data Allergies/Adverse Reactions: aspirin [Aspirin] Allergy (Verified 01/13/17 04:13) Anaphylaxis ciprofloxacin [From Cipro] Allergy (Verified 01/13/17 04:13) Anaphylaxis clindamycin [Clindamycin] Allergy (Verified 01/13/17 04:13) ibuprofen [From Motrin] Allergy (Verified 01/13/17 04:13) Anaphylaxis lidocaine [From Lidoderm] Allergy (Verified 01/13/17 04:13) Generalized rash tramadol HCl [From Ultram] Allergy (Verified 01/13/17 04:13) vancomycin [Vancomycin] Allergy (Verified 01/13/17 04:13) Shortness of Breath nitroglycerin [Nitroglycerin] Adverse Reaction (Intermediate, Verified 01/13/17 04:13) Joint pain Past Medical History - General Information source: Patient - Social History Smoking Status: Unknown if Ever Smoked Family History: None, Reviewed & Not Pertinent - Past Medical History Cardiac Medical History: Reports: Hx Congestive Heart Failure, Hx Coronary Artery Disease, Hx Hypertension, Hx Heart Murmur Pulmonary Medical History: Reports: Hx Asthma, Hx Pneumonia Neurological Medical History: Reports: Hx Migraine, Hx Seizures Endocrine Medical History: Reports: Hx Diabetes Mellitus Type 1, Hx Diabetes Mellitus Type 2 Renal/ Medical History: Reports: Hx End Stage Renal Disease - On hemodialysis , Hx Hemodialysis, Hx Ovarian Cysts. Denies: Hx Peritoneal Dialysis Malignancy Medical History: GI Medical History: Reports: Hx Gastritis Musculoskeltal Medical History: Skin Medical History: Reports Hx Psoriasis Psychiatric Medical History: Reports: Hx Depression Traumatic Medical History: Infectious Medical History: Past Surgical History: Reports: Hx Appendectomy, Hx Cholecystectomy, Hx Vascular Surgery - Left arm fistula; Perm Cath -Right Chest, right arm fistula - Immunizations Immunizations up to date: Yes Hx Diphtheria, Pertussis, Tetanus Vaccination: Yes Hx Pneumococcal Vaccination: 08/22/11 Review of Systems - Review of Systems Notes: REVIEW OF SYSTEMS: CONSTITUTIONAL: -fevers, -chills EENT: -eye pain, -difficulty swallowing, -nasal congestion CARDIOVASCULAR: -chest pain, -syncope. RESPIRATORY: -cough, +SOB GASTROINTESTINAL: -abdominal pain, -nausea, -vomiting, -diarrhea GENITOURINARY: -dysuria, -hematuria MUSCULOSKELETAL: -back pain, -neck pain SKIN: -rash or skin lesions. HEMATOLOGIC: -easy bruising or bleeding. LYMPHATIC: -swollen, enlarged glands. NEUROLOGICAL: -altered mental status or loss of consciousness, -headache, - neurologic symptoms PSYCHIATRIC: -anxiety, -depression. ALL OTHER SYSTEMS REVIEWED AND NEGATIVE. Physical Exam - Vital signs Vitals: Resp Pulse Ox 24 H 100 01/13/17 02:00 01/13/17 02:00 - Notes Notes: PHYSICAL EXAMINATION: GENERAL: Mild distress. HEAD: Atraumatic, normocephalic. EYES: Pupils equal round and reactive to light, extraocular movements intact, sclera anicteric, conjunctiva are normal. ENT: nares patent, oropharynx clear without exudates. Moist mucous membranes. NECK: Normal range of motion, supple without lymphadenopathy LUNGS: Bilateral diminished breath sounds with bibasilar rales. Mild respiratory distress on CPAP. HEART: Regular rate and rhythm. ABDOMEN: Soft, nontender, normoactive bowel sounds. No guarding, no rebound. No masses appreciated. EXTREMITIES: 1+ pitting edema up to ankles. Normal range of motion. No cyanosis. NEUROLOGICAL: Cranial nerves grossly intact. Normal speech, normal gait. Normal sensory, motor, and reflex exams. SKIN: Warm, Dry, normal turgor, no rashes or lesions noted. Course - Re-evaluation Re-evalutation: Patient resting comfortably on BiPAP. She appears fluid overloaded and needs dialysis. No signs of infection and no chest pain. She says that she is allergic to nitroglycerin. Can give Lasix because she does not make urine. 01/13/17 06:30 Pt needs admission for dialysis and further monitoring of her respiratory status. Spoke to Dr. Singleton and he has accepted patient. Placed page to Nephrology and awaiting callback. 01/13/17 06:[address] Kwon (Nephrology) and he will send the dialysis nurse to the ED for emergent dialysis due to fluid overload. - Vital Signs Vital signs: Temp Pulse Resp BP Pulse Ox 18 201/91 H 100 01/13/17 06:01 01/13/17 06:01 01/13/17 06:01 - Laboratory Result Diagrams: 01/13/17 02:45 01/13/17 02:45 Laboratory results interpreted by me: 01/13/17 01/13/17 01/13/17 02:45 02:45 02:45 WBC 11.6 H RBC 3.45 L Hgb 9.6 L Hct 29.7 L RDW 17.0 H BUN 51 H Creatinine 7.84 H Est GFR ( Amer) 7 L Est GFR (Non-Af Amer) 6 L Glucose 147 H Calcium 7.5 L NT-Pro-B Natriuret Pep 57900 H - Diagnostic Test Radiology reviewed: Image reviewed, Reports reviewed Radiology results interpreted by me: CXR: Pulmonary edema - EKG Interpretation by Me EKG shows normal: Sinus rhythm, [place], Intervals, QRS Complexes, ST-T Waves Discharge - Discharge Clinical Impression: Pulmonary edema Qualifiers: Chronicity: acute Qualified Code(s): J81.0 - Acute pulmonary edema Condition: Stable Disposition: ADMITTED OBSERVATION Admitting Provider: [facility] Admitted: [facility]
[2017-01-13 03:24] LABS: ABSOLUTE BASOPHILS # (AUTO) 0.2 10^3/uL (0.0-0.2); ABSOLUTE EOSINOPHILS # (AUTO) 0.6 10^3/uL (0.0-0.6); ABSOLUTE LYMPHOCYTES (AUTO) 1.8 10^3/uL (0.5-4.7); ABSOLUTE MONOCYTES (AUTO) 0.8 10^3/uL (0.1-1.4); ABSOLUTE NEUT (AUTO) 8.2 10^3/uL (1.7-8.2); BASOPHILS % (AUTO) 1.4 % (0-2); EOSINOPHILS % (AUTO) 4.9 % (0-6); HEMATOCRIT 29.7 % (36.0-47.0); HEMOGLOBIN 9.6 g/dL (12.0-15.5); HGB HCT DIFFERENCE -0.9; LYMPHOCYTES % (AUTO) 15.4 % (13-45); MEAN CORPUSCULAR HEMOGLOBIN 27.7 pg (27.0-33.4); MEAN CORPUSCULAR HGB CONC 32.3 g/dL (32.0-36.0); MEAN CORPUSCULAR VOLUME 86 fl (80-97); MONOCYTES % (AUTO) 7.3 % (3-13); RED BLOOD COUNT 3.45 10^6/uL (3.72-5.28); WHITE BLOOD COUNT 11.6 10^3/uL (4.0-10.5)
[2017-01-13 03:25] LABS: VENOUS BLOOD BASE EXCESS 1.5 mmol/L; VENOUS BLOOD HCO3 27.1 mmol/L (20-32); VENOUS BLOOD PCO2 46.6 mmHg (35-63); VENOUS BLOOD PH 7.38 (7.30-7.42)
[2017-01-13 03:36] LABS: ANION GAP 15 (5-19); BLOOD UREA NITROGEN 51 mg/dL (7-20); CALCIUM 7.5 mg/dL (8.4-10.2); CARBON DIOXIDE 25 mmol/L (22-30); CHLORIDE 100 mmol/L (98-107); CREATINE KINASE 105 U/L (30-135); CREATININE RESULT 7.84 mg/dL (0.52-1.25); GLUCOSE 147 mg/dL (75-110); POTASSIUM 4.7 mmol/L (3.6-5.0); SODIUM 139.6 mmol/L (137-145)
[2017-01-13 03:51] LABS: TROPONIN I < 0.012 ng/mL
[2017-01-13] MEDS ORDERED: HEPARIN SOD (PORCINE) 1,000 UNIT/ML 10 ML VIAL IV PRN (10:12)
[2017-01-13 13:50] VITALS: BP 145/67
--- NOTE | 2017-01-13 13:57 | PDOC CONSULTATION ---
Consultation Consult Date: 01/13/17 Consult reason:: For urgent hemodialysis in the setting of acute congestive heart failure and ESRD patient History of Present Illness Admission Date/PCP: 01/13/17 06:55 HILARY HERNANDEZ MD History of Present Illness: ERICH GOODMAN is a 31 year old female with a past medical history of long- standing complicated type 1 diabetes mellitus hypertension and ESRD on hemodialysis was had multiple admissions for severe hypertensive emergency most often manifesting as congestive heart failure or seizures in the face of severe and ongoing noncompliance has been admitted with history of progressive shortness of breath over the last few hours. Her last dialysis was Wednesday. She has had a history of either having incomplete treatments and then going and being on an improper diet and drinking excessive amounts of fluids. She has had multiple admissions with similar presentations especially over the weekends. Evaluations revealed that she was in severe respiratory distress secondary to worsening heart failure which has been confirmed on chest x-ray. She is put on BiPAP and and I was called to see if I could initiate urgent hemodialysis to prevent her being intubated. She is quite sickly and in distress. She denies any history of chest pain or fever or chills. I am seeing on hemodialysis. She continues to remain on the BiPAP and and and quite moderately severe distress discuss orders with the treating nurse Kim and the plan to extract at least 5-6 L of fluid in the next 3-4 hours. Patient is only able to speak briefly. She denies any history of chest pain. Past Medical History Cardiac Medical History: Reports: Coronary Artery Disease, Heart Murmur, Hypertension-primary Pulmonary Medical History: Reports: Asthma, Pneumonia Neurological Medical History: Reports: Migraine, Seizures Endocrine Medical History: Reports: Diabetes Mellitus Type 1, Obesity Complications of Diabetes: Reports: Autonomic Neuropathy, Retinopathy Renal/ Medical History: Reports: End Stage Renal Disease - On hemodialysis, Hyperkalemia, Renal Osteodystropy Malignancy Medical History: GI Medical History: Musculoskeltal Medical History: Denies: Rheumatoid Arthritis, Systemic Lupus Erythematosus Skin Medical History: Reports: Psoriasis Psychiatric Medical History: Reports: Depression Infectious Medical History: Hematology Medical History: Reports Anemia of Chronic Kidney Disease Past Surgical History Past Surgical History: Reports: Appendectomy, Cholecystectomy, Dialysis Access Surgery AVF, Vascular Surgery - Left arm fistula; Perm Cath -Right Chest, right arm fistula Social History Smoking Status: Unknown if Ever Smoked Frequency of Alcohol Use: None Hx Recreational Drug Use: No Drugs: None Hx Prescription Drug Abuse: No - Advance Directive Resuscitation Status: Full Code Family History Parental Family History Reviewed: No - negative for ESRD Children Family History Reviewed: No Sibling(s) Family History Reviewed.: No Medication/Allergy Home Medications: Labetalol HCl [Normodyne 200 mg Tablet] 600 mg PO Q8 11/11/16 Lorazepam 2 mg PO Q12HP PRN 11/11/16 Mirtazapine 30 mg PO QHS 11/11/16 Nifedipine [Nifedipine ER] 90 mg PO Q12 11/11/16 Oxycodone HCl/Acetaminophen [Oxycodone-Acetaminophen 10-325] 1 tab PO Q12HP PRN 11/11/16 Paroxetine HCl [Paxil] 60 mg PO QHS 11/11/16 Calcium Carbonate [Tums Chewable 500 mg Tab.chew] 1,000 mg PO QHS 11/12/16 Insulin Detemir [Levemir Flextouch] 30 units SQ BID 11/12/16 Insulin Lispro [Humalog Insulin (Lispro) 100 unit/mL] See Protocol SUBCUT .SLD SCALE PRN 11/12/16 Sucroferric Oxyhydroxide [Velphoro] 1,000 mg PO TID 11/12/16 Sucroferric Oxyhydroxide [Velphoro] 500 mg PO BIDP PRN 11/12/16 Diazepam [Valium 5 mg Tablet] 5 mg PO TID #12 tablet 12/07/16 Allergies/Adverse Reactions: aspirin [Aspirin] Allergy (Verified 01/13/17 04:13) Anaphylaxis ciprofloxacin [From Cipro] Allergy (Verified 01/13/17 04:13) Anaphylaxis clindamycin [Clindamycin] Allergy (Verified 01/13/17 04:13) ibuprofen [From Motrin] Allergy (Verified 01/13/17 04:13) Anaphylaxis lidocaine [From Lidoderm] Allergy (Verified 01/13/17 04:13) Generalized rash tramadol HCl [From Ultram] Allergy (Verified 01/13/17 04:13) vancomycin [Vancomycin] Allergy (Verified 01/13/17 04:13) Shortness of Breath nitroglycerin [Nitroglycerin] Adverse Reaction (Intermediate, Verified 01/13/17 04:13) Joint pain Review of Systems Review of Systems: Constitutional: PRESENT: as per HPI. ABSENT: chills, fever(s), headache(s), weight gain, weight loss Eyes: ABSENT: visual disturbances Ears: ABSENT: hearing changes Cardiovascular: ABSENT: edema, orthropnea, palpitations Respiratory: ABSENT: cough, hemoptysis Gastrointestinal: ABSENT: abdominal pain, constipation, diarrhea, hematemesis, hematochezia, nausea, vomiting Genitourinary: ABSENT: dysuria, hematuria Musculoskeletal: ABSENT: joint swelling Integumentary: ABSENT: rash, wounds Neurological: ABSENT: abnormal gait, abnormal speech, confusion, dizziness, focal weakness, syncope Psychiatric: ABSENT: homicidal ideation, suicidal ideation Endocrine: ABSENT: cold intolerance, heat intolerance, menstrual abnormalities, polydipsia, polyuria Hematologic/Lymphatic: ABSENT: easy bleeding, easy bruising, lymphadenopathy Physical Exam Vital Signs: Temp Pulse Resp BP Pulse Ox 98.0 F 11 L 157/62 H 91 L 01/13/17 08:00 01/13/17 13:25 01/13/17 13:25 01/13/17 13:24 Intake & Output 01/12/17 01/13/17 01/14/17 06:59 06:59 06:59 Weight 111 kg General appearance: PRESENT: severe distress Eye exam: PRESENT: conjunctiva pink, EOMI, PERRLA. ABSENT: nystagmus Ear exam: PRESENT: normal external ear exam Mouth exam: PRESENT: moist Neck exam: ABSENT: lymphadenopathy, meningismus, tenderness, thyromegaly, tracheal deviation Respiratory exam: PRESENT: clear to auscultation freddy, crackles, rhonchi, tachypnea. ABSENT: chest wall tenderness, stridor Cardiovascular exam: PRESENT: +S1, +S2, systolic murmur GI/Abdominal exam: PRESENT: normal bowel sounds, soft. ABSENT: distended, tenderness Extremities exam: PRESENT: +1 edema Psychiatric exam: PRESENT: agitated, anxious Skin exam: ABSENT: erythema, mottled, petechiae, rash Results Impressions: Chest X-Ray 01/13/17 02:10 IMPRESSION: CARDIOMEGALY. DIFFUSE PARENCHYMAL OPACITIES LIKELY DUE TO PULMONARY EDEMA. Assessment & Plan - Diagnosis (1) Acute on chronic systolic CHF (congestive heart failure) Plan: Should respond to the urgent initiation of hemodialysis and extraction of at least on 5 L. Unfortunately since she is in severe distress is not a time to again go through diet and compliance with medications and dialysis treatments. Hopefully she will respond to the above treatments and will not need to be intubated. (2) End stage renal disease on dialysis due to type 1 diabetes mellitus Plan: Patient undergoing dialysis without any issues or. Orders were discussed with the treating nurse. As mentioned earlier will try to extract at least 5 L of fluid. (4) Anemia Qualifiers: Other causes of anemia: chronic disease, kidney Plan: See how she responds to the extraction of fluids before we order any erythropoietin for now. (6) Morbid obesity Qualifiers: Obesity type: due to excess calories Qualified Code(s): E66.01 - Morbid (severe) obesity due to excess calories
--- NOTE | 2017-01-14 08:14 | EKG REPORT ---
SEVERITY:- ABNORMAL ECG - SINUS RHYTHM CONSIDER LEFT VENTRICULAR HYPERTROPHY PROLONGED QT INTERVAL : Confirmed by: Beatriz Leyva MD 14-Jan-2017 08:13:21
== END 2017-01-13 14:15 | disposition home or self-care (01) ==
LOC: ER 01:58 → EH 06:55
PROVIDERS: ADMIT Internal Medicine; ATTEND Internal Medicine
DX: I50.23 Acute on chronic systolic (congestive) heart failure (principal); I13.2 Hypertensive heart and chronic kidney disease with heart failure and with stage 5 chronic kidney disease, or end stage renal disease; N18.6 End stage renal disease; E10.22 Type 1 diabetes mellitus with diabetic chronic kidney disease; D64.9 Anemia, unspecified; E66.01 Morbid (severe) obesity due to excess calories; Z99.2 Dependence on renal dialysis; Z79.4 Long term (current) use of insulin
CPT/HCPCS: 93005; 94640; 99285; 36415; 82962; 82550; 85025; 80048; 84484; 82803; 83605; 83880; 71010; 93010; 94660; G0257; J1644; A9270; J7620

== ENCOUNTER 2017-03-21 18:03 | Emergency (ER) | payer MEDICARE, MEDICAID ==
[2017-03-21] MEDS ORDERED: KETAMINE HCL INJ 500 MG/10 ML VIAL ONE ×2 (18:11→18:35)
[2017-03-21] MEDS ORDERED: ETOMIDATE INJ/PF 20 MG/10 ML SDV IV ONE (18:14)
[2017-03-21] MEDS ORDERED: ONDANSETRON HCL INJ/PF 4 MG/2 ML SDV ONE (18:24)
[2017-03-21 18:58] LABS: ABSOLUTE BASOPHILS # (AUTO) 0.1 10^3/uL (0.0-0.2); ABSOLUTE EOSINOPHILS # (AUTO) 0.3 10^3/uL (0.0-0.6); ABSOLUTE LYMPHOCYTES (AUTO) 1.1 10^3/uL (0.5-4.7); ABSOLUTE MONOCYTES (AUTO) 0.6 10^3/uL (0.1-1.4); BASOPHILS % (AUTO) 0.7 % (0-2); HEMATOCRIT 30.9 % (36.0-47.0); HEMOGLOBIN 9.8 g/dL (12.0-15.5); HGB HCT DIFFERENCE -1.5; LYMPHOCYTES % (AUTO) 7.1 % (13-45); MEAN CORPUSCULAR HEMOGLOBIN 29.2 pg (27.0-33.4); MEAN CORPUSCULAR HGB CONC 31.6 g/dL (32.0-36.0); MEAN CORPUSCULAR VOLUME 92 fl (80-97); MONOCYTES % (AUTO) 3.4 % (3-13); RED BLOOD COUNT 3.35 10^6/uL (3.72-5.28); RED CELL DISTRIBUTION WIDTH 18.8 % (11.5-14.0); SEGMENTED NEUTROPHILS % (AUTO) 86.8 % (42-78); WHITE BLOOD COUNT 16.1 10^3/uL (4.0-10.5)
[2017-03-21] MEDS ORDERED: KETAMINE HCL INJ 500 MG/10 ML VIAL IV ONE ×2 (19:09→19:30)
[2017-03-21] MEDS ORDERED: ONDANSETRON HCL INJ/PF 4 MG/2 ML SDV IV ONE (19:10)
--- NOTE | 2017-03-21 19:37 | ER Document Report ---
ED General - General Chief Complaint: Respiratory Distress Stated Complaint: RESPIRATORY DISTRESS Time seen by provider: 19:36 Mode of Arrival: Ambulatory Information source: Patient Notes: This is a 31-year-old female with a complicated medical history including end- stage renal disease (hemodialysis), migraines, seizures, diabetes. The patient is brought into EMS for severe respiratory distress. The patient's last dialysis was 2 days ago and the patient states that it ended one hour early because she had errands to run. TRAVEL OUTSIDE OF THE [place] IN LAST 30 DAYS: No - HPI Onset: Just prior to arrival Onset/Duration: Sudden Quality of pain: No pain Severity: None Pain Level: Denies Associated symptoms: Shortness of breath. denies: Chills, Fever Exacerbated by: Movement Relieved by: Denies Similar symptoms previously: Yes Recently seen / treated by doctor: Yes - Related Data Allergies/Adverse Reactions: aspirin [Aspirin] Allergy (Verified 01/13/17 04:13) Anaphylaxis ciprofloxacin [From Cipro] Allergy (Verified 01/13/17 04:13) Anaphylaxis clindamycin [Clindamycin] Allergy (Verified 01/13/17 04:13) ibuprofen [From Motrin] Allergy (Verified 01/13/17 04:13) Anaphylaxis lidocaine [From Lidoderm] Allergy (Verified 01/13/17 04:13) Generalized rash tramadol HCl [From Ultram] Allergy (Verified 01/13/17 04:13) vancomycin [Vancomycin] Allergy (Verified 01/13/17 04:13) Shortness of Breath nitroglycerin [Nitroglycerin] Adverse Reaction (Intermediate, Verified 01/13/17 04:13) Joint pain Past Medical History - General Information source: Emergency Med Personnel - Social History Smoking Status: Unknown if Ever Smoked Cigarette use (# per day): No Chew tobacco use (# tins/day): No Frequency of alcohol use: None Drug Abuse: None Lives with: Alone Family History: None, Reviewed & Not Pertinent Patient has suicidal ideation: No Patient has homicidal ideation: No - Past Medical History Cardiac Medical History: Reports: Hx Congestive Heart Failure, Hx Coronary Artery Disease, Hx Hypertension, Hx Heart Murmur Pulmonary Medical History: Reports: Hx Asthma, Hx Pneumonia Neurological Medical History: Reports: Hx Migraine, Hx Seizures Endocrine Medical History: Reports: Hx Diabetes Mellitus Type 1, Hx Diabetes Mellitus Type 2 Renal/ Medical History: Reports: Hx End Stage Renal Disease - On hemodialysis , Hx Hemodialysis, Hx Ovarian Cysts. Denies: Hx Peritoneal Dialysis Malignancy Medical History: GI Medical History: Reports: Hx Gastritis Musculoskeltal Medical History: Skin Medical History: Reports Hx Psoriasis Psychiatric Medical History: Reports: Hx Depression Traumatic Medical History: Infectious Medical History: Past Surgical History: Reports: Hx Appendectomy, Hx Cholecystectomy, Hx Vascular Surgery - Left arm fistula; Perm Cath -Right Chest, right arm fistula - Immunizations Immunizations up to date: Yes Hx Diphtheria, Pertussis, Tetanus Vaccination: Yes Hx Pneumococcal Vaccination: 08/22/11 Review of Systems - Review of Systems -: Yes ROS unobtainable due to patient's medical condition - Severe respiratory distress Cardiovascular: See HPI Respiratory: See HPI Physical Exam - Vital signs Vitals: Pulse Ox 88 L 03/21/17 18:04 Notes: Physical exam: GENERAL: 31-year-old female in stretcher in severe respiratory distress, frothy pinkish oral secretions HEAD: Atraumatic, normocephalic. EYES: Pupils equal round and reactive to light, conjunctiva are normal. ENT: Copious, pink frothy mucus NECK: Normal range of motion, supple LUNGS: Diffuse rales bilaterally HEART: Regular rate and rhythm without murmurs, rubs or gallops. ABDOMEN: Soft, normoactive bowel sounds. No tenderness to palpation. No guarding, no rebound. No masses appreciated. EXTREMITIES: Normal range of motion, no pitting or edema. No clubbing or cyanosis. NEUROLOGICAL: Agitated moving all extremities PSYCH: Agitated SKIN: Warm, Dry, normal turgor, no rashes or lesions noted. Course - Re-evaluation Re-evalutation: 03/21/17 20:28 Note: The patient was quite agitated and in significant respiratory distress with hypoxia (O2 sats in the 70s) on arrival. She was placed on BiPAP and given a very small dose (25 mg slowly) of ketamine and watch very closely. She responded well and is actually improved on BiPAP. The patient was initially put on an FiO2 of 60% with an IPAP of 14 and an EPAP of 6. Her oxygen saturations were in the high 90s with this and we were able to wean down the FiO2. She does have quite poor access and a right femoral central line was placed under full sterile technique with ultrasound guidance. All 3 ports were functional. Chest x-ray is consistent with pulmonary edema. EKG reveals sinus rhythm with left axis deviation and hyperacute T waves. The QRS intervals are narrow. IV calcium gluconate was begun. The central line. Labs reveal a potassium of 8.8: More calcium gluconate, D50, insulin, and all labs have been ordered. - Vital Signs Vital signs: Temp Pulse Resp BP Pulse Ox 27 H 159/86 H 97 03/21/17 19:01 03/21/17 19:01 03/21/17 19:01 - Laboratory Result Diagrams: 03/21/17 18:20 03/21/17 19:30 Laboratory results interpreted by me: 03/21/17 03/21/17 03/21/17 18:20 19:30 19:30 WBC 16.1 H RBC 3.35 L Hgb 9.8 L Hct 30.9 L MCHC 31.6 L RDW 18.8 H Seg Neutrophils % 86.8 H Lymphocytes % 7.1 L Absolute Neutrophils 14.0 H ABG pH ABG pO2 ABG O2 Saturation Sodium 134.3 L Potassium 8.8 H* Chloride 97 L Carbon Dioxide 20 L BUN 67 H Creatinine 11.70 H Est GFR ( Amer) 5 L Est GFR (Non-Af Amer) 4 L Glucose 288 H Direct Bilirubin 0.6 H NT-Pro-B Natriuret Pep 6880 H 03/21/17 19:30 WBC RBC Hgb Hct MCHC RDW Seg Neutrophils % Lymphocytes % Absolute Neutrophils ABG pH 7.27 L ABG pO2 71.0 L ABG O2 Saturation 92.1 L Sodium Potassium Chloride Carbon Dioxide BUN Creatinine Est GFR ( Amer) Est GFR (Non-Af Amer) Glucose Direct Bilirubin NT-Pro-B Natriuret Pep - Diagnostic Test Radiology reviewed: Image reviewed, Reports reviewed - Consistent with pulmonary edema - EKG Interpretation by Me Rate: Normal Rhythm: NSR - EKG shows normal sinus rhythm with a ventricular rate of 97, hyperacute T waves with narrow QRS intervals Procedures - Central Line Right Femoral Time completed: 20:00 Consent obtained: Yes - verbal consent Central line pre-insertion: Chloraprep applied, Sterile drapes applied Central line lumen type: Triple Anesthetic type: 1% Lidocaine mL's of anesthesia: 5 Ultrasound guided: Yes CM at insertion site: 18 Line secured with sutures: Yes Central line post-insertion: Blood return from lumens, Biopatch applied, Sutured , Sterile dressing applied Number of attempts: 2 Complications: Yes Notes: 03/21/17 20:33 MSBT (maximum sterile barrier technique) followed including cap, mask, sterile gloves, large sterile sheet, hand hygiene, sterile ultrasound probe sleeve, sterile saline for probe visualization, liberal ChloraPrep for cutaneous antisepsis both during procedure set up and immediately before Biopatch application, line stabilization with suture and sterile Tegaderm placement. Critical Care Note - Critical Care Note Total time excluding time spent on procedures (mins): 90 Discharge - Discharge Clinical Impression: pulmonary edema, hyperkalemia, End stage renal disease, acute respiratory failure Condition: Serious Disposition: [facility]
[2017-03-21 19:43] LABS: ARTERIAL BLOOD BASE EXCESS -6.5 mmol/L; ARTERIAL BLOOD O2 SATURATION 92.1 % (94-98)
[2017-03-21] MEDS ORDERED: CALCIUM GLUCONATE 1000 MG/10 ML INJ IV ONE ×3 (19:56→21:45)
[2017-03-21] MEDS ORDERED: PIPERACILLIN/TAZOBACTAM 3.375 GM VIAL IV ONE (19:59)
[2017-03-21 20:02] LABS: ALANINE AMINOTRANSFERASE 29 U/L (9-52); ALBUMIN 4.2 g/dL (3.5-5.0); ALKALINE PHOSPHATASE 114 U/L (38-126); ANION GAP 17 (5-19); ASPARTATE AMINO TRANSFERASE 19 U/L (14-36); BILIRUBIN,DIRECT 0.6 mg/dL (0.0-0.4); BILIRUBIN,TOTAL 0.7 mg/dL (0.2-1.3); BLOOD UREA NITROGEN 67 mg/dL (7-20); CALCIUM 8.7 mg/dL (8.4-10.2); CARBON DIOXIDE 20 mmol/L (22-30); CHLORIDE 97 mmol/L (98-107); CREATINE KINASE 103 U/L (30-135); GLUCOSE 288 mg/dL (75-110); SODIUM 134.3 mmol/L (137-145); TOTAL PROTEIN 7.8 g/dL (6.3-8.2)
[2017-03-21 20:06] LABS: POTASSIUM 8.8 mmol/L (3.6-5.0)
[2017-03-21 20:14] LABS: CREATINE KINASE MB 2.93 ng/mL (<4.55)
[2017-03-21 20:16] LABS: TROPONIN I < 0.012 ng/mL
[2017-03-21] MEDS ORDERED: DEXTROSE 50%-WATER 25 GM/50 ML DISP.SYRIN IV ONE (20:22)
[2017-03-21] MEDS ORDERED: INSULIN REG, HUMAN 100 UNIT/ML 3 ML VIAL (PYX) IV ONE (20:23)
[2017-03-21] MEDS ORDERED: IPRATROPIUM/ALBUTEROL 0.5-2.5 MG/3 ML AMPUL NEB ONE (20:35)
[2017-03-21 21:12] VITALS: BP 162/75
[2017-03-21 21:38] LABS: ANION GAP 19 (5-19); BLOOD UREA NITROGEN 66 mg/dL (7-20); CALCIUM 8.8 mg/dL (8.4-10.2); CARBON DIOXIDE 18 mmol/L (22-30); CHLORIDE 98 mmol/L (98-107); GLUCOSE 358 mg/dL (75-110); SODIUM 135.3 mmol/L (137-145)
[2017-03-21 21:41] LABS: POTASSIUM 7.7 mmol/L (3.6-5.0)
--- NOTE | 2017-03-21 22:48 | EKG REPORT ---
SEVERITY:- ABNORMAL ECG - SINUS RHYTHM LEFT ATRIAL ABNORMALITY LEFT AXIS DEVIATION LEFT VENTRICULAR HYPERTROPHY ST ELEV, PROBABLE NORMAL EARLY REPOL PATTERN TALL T WAVES, PROBABLY NORMAL VARIANT BORDERLINE PROLONGED QT INTERVAL : Confirmed by: Daniela Lemons 21-Mar-2017 22:47:32
== END 2017-03-21 22:00 | disposition short-term general hospital (02) ==
LOC: ER 18:03
PROC: 06HM33Z Insertion of Infusion Device into Right Femoral Vein, Percutaneous Approach (ICD-10-PCS; principal; 2017-03-21)
PROC: B54BZZA Ultrasonography of Right Lower Extremity Veins, Guidance (ICD-10-PCS; 2017-03-21)
DX: J96.01 Acute respiratory failure with hypoxia (principal); J81.1 Chronic pulmonary edema; E87.5 Hyperkalemia; R06.00 Dyspnea, unspecified; I25.10 Atherosclerotic heart disease of native coronary artery without angina pectoris; I11.0 Hypertensive heart disease with heart failure; E11.9 Type 2 diabetes mellitus without complications; E11.22 Type 2 diabetes mellitus with diabetic chronic kidney disease; I13.2 Hypertensive heart and chronic kidney disease with heart failure and with stage 5 chronic kidney disease, or end stage renal disease; I50.9 Heart failure, unspecified; N18.6 End stage renal disease; Z99.2 Dependence on renal dialysis; Z90.49 Acquired absence of other specified parts of digestive tract; Z88.3 Allergy status to other anti-infective agents; Z88.6 Allergy status to analgesic agent
CPT/HCPCS: 36556; 93005; 99291; 99292; 96374; 36415; 82553; 82803; 82550; 85025; 80048; 80053; 84484; 83880; 71010; 93010; 94660; C1751; C1769; J0610; J3490 ×2; A9270 ×2; J2405; J2543; J1815; J7620

== ENCOUNTER → 2017-04-06 | Outpatient (CLI) | payer MEDICARE, MEDICAID | LOC: OD 15:48 | PROVIDERS: ATTEND Pain Medicine Pain Medicine | DX: Z79.891 Long term (current) use of opiate analgesic (principal) | CPT/HCPCS: 36415 ==

== ENCOUNTER 2017-05-29 21:51 | Emergency (ER) | payer MEDICARE, MEDICAID ==
[2017-05-29 22:33] VITALS: BP 180/70
--- NOTE | 2017-05-29 23:21 | RADIOLOGY REPORT (SQ) ---
EXAM DESCRIPTION: KNEE LEFT 4 VIEW COMPLETED DATE/TIME: 05/29/2017 10:58 pm REASON FOR STUDY: knee pain COMPARISON: None. NUMBER OF VIEWS: Four views. TECHNIQUE: AP, lateral, and both oblique radiographic images acquired of the left knee. LIMITATIONS: None. FINDINGS: MINERALIZATION: Normal. BONES: No acute fracture or dislocation. No worrisome bone lesions. JOINT: No effusion. Loss of lateral compartment joint space clear SOFT TISSUES: No soft tissue swelling. No radio-opaque foreign body. OTHER: No other significant finding. IMPRESSION: NO RADIOGRAPHIC EVIDENCE OF ACUTE INJURY. TECHNICAL DOCUMENTATION: JOB ID: [id number] [employer]- All Rights Reserved
--- NOTE | 2017-05-29 23:34 | ER Document Report ---
ED General - General Chief Complaint: Knee Injury Stated Complaint: KNEE INJURY Time Seen by Provider: 05/29/17 23:09 Notes: Patient presents with left knee pain after she states she was running and actually stepped in a pothole. States she heard a pop when she tried to move her knee. Since that time she has had a dull, constant, aching pain to the left knee. States she has been able to ambulate on the knee but that this does worsen the pain. Nothing improves the pain. No history of similar injury in the past. She has not seen a primary care doctor regarding today's concerns. Denies any associated weakness, numbness or any additional injuries. TRAVEL OUTSIDE OF THE [place] IN LAST 30 DAYS: No - Related Data Allergies/Adverse Reactions: acetaminophen [From Vicodin] Allergy (Verified 05/29/17 22:34) aspirin [Aspirin] Allergy (Verified 01/13/17 04:13) Anaphylaxis ciprofloxacin [From Cipro] Allergy (Verified 01/13/17 04:13) Anaphylaxis clindamycin [Clindamycin] Allergy (Verified 01/13/17 04:13) hydrocodone [From Vicodin] Allergy (Verified 05/29/17 22:34) ibuprofen [From Motrin] Allergy (Verified 01/13/17 04:13) Anaphylaxis lidocaine [From Lidoderm] Allergy (Verified 01/13/17 04:13) Generalized rash tramadol HCl [From Ultram] Allergy (Verified 01/13/17 04:13) vancomycin [Vancomycin] Allergy (Verified 01/13/17 04:13) Shortness of Breath nitroglycerin [Nitroglycerin] Adverse Reaction (Intermediate, Verified 01/13/17 04:13) Joint pain Past Medical History - General Information source: Patient - Social History Smoking Status: Never Smoker Frequency of alcohol use: None Drug Abuse: None Family History: Reviewed & Not Pertinent Patient has suicidal ideation: No Patient has homicidal ideation: No - Past Medical History Cardiac Medical History: Reports: Hx Congestive Heart Failure, Hx Coronary Artery Disease, Hx Hypertension, Hx Heart Murmur Pulmonary Medical History: Reports: Hx Asthma, Hx Pneumonia Neurological Medical History: Reports: Hx Migraine, Hx Seizures Endocrine Medical History: Reports: Hx Diabetes Mellitus Type 1, Hx Diabetes Mellitus Type 2 Renal/ Medical History: Reports: Hx End Stage Renal Disease - On hemodialysis , Hx Hemodialysis, Hx Ovarian Cysts. Denies: Hx Peritoneal Dialysis Malignancy Medical History: GI Medical History: Reports: Hx Gastritis Musculoskeltal Medical History: Skin Medical History: Reports Hx Psoriasis Psychiatric Medical History: Reports: Hx Depression Traumatic Medical History: Infectious Medical History: Past Surgical History: Reports: Hx Appendectomy, Hx Cholecystectomy, Hx Vascular Surgery - Left arm fistula; Perm Cath -Right Chest, right arm fistula - Immunizations Immunizations up to date: Yes Hx Diphtheria, Pertussis, Tetanus Vaccination: Yes Hx Pneumococcal Vaccination: 08/22/11 Review of Systems - Review of Systems Notes: Constitutional: Negative for fever. Eyes: Negative for visual changes. ENT: Negative for facial injury Cardiovascular: Negative for chest injury. Respiratory: Negative for shortness of breath. Gastrointestinal: Negative for abdominal injury. Genitourinary: Negative for genital injury Musculoskeletal: Positive for left knee injury Skin: Negative for laceration/abrasions. Neurological: Negative for head injury. Physical Exam - Vital signs Vitals: Temp Pulse Resp BP Pulse Ox 98.2 F 80 16 180/70 H 100 05/29/17 22:32 05/29/17 22:32 05/29/17 22:32 05/29/17 22:32 05/29/17 22:32 Interpretation: Hypertensive Notes: PHYSICAL EXAMINATION: GENERAL: Well-appearing, well-nourished and in no acute distress. HEAD: Atraumatic, normocephalic. EYES: sclera anicteric, conjunctiva are normal. ENT: Moist mucous membranes. NECK: Normal range of motion LUNGS: Normal work of breathing HEART: 2+ DP pulses bilaterally EXTREMITIES: no pitting or edema. No cyanosis. Full extension and flexion of the knee against resistance without difficulty. No anterior or posterior laxity NEUROLOGICAL: No focal neurological deficits. Moves all extremities spontaneously and on command. PSYCH: Normal mood, normal affect. SKIN: Warm, Dry, normal turgor, no rashes or lesions noted. Course - Re-evaluation Re-evalutation: 05/29/17 23:33 No evidence of a septic joint, gout flare, dislocation, or fracture on exam and imaging. Vitals wnl. At this time, I do not see an indication for labs or further imaging. Will discharge with conservative measures, return precautions, and follow-up recommendations. - Vital Signs Vital signs: Temp Pulse Resp BP Pulse Ox 98.2 F 80 16 180/70 H 100 05/29/17 22:32 05/29/17 22:32 05/29/17 22:32 05/29/17 22:32 05/29/17 22:32 - Diagnostic Test Radiology reviewed: Image reviewed, Reports reviewed Radiology results interpreted by me: 05/30/17 03:04 Left knee x-ray: No acute fracture dislocation. No joint effusion. Discharge - Discharge Clinical Impression: Left knee injury Qualifiers: Encounter type: initial encounter Qualified Code(s): S89.92XA - Unspecified injury of left lower leg, initial encounter Condition: Good Disposition: HOME, SELF-CARE Additional Instructions: Your x-ray does not show any acute fracture today. You likely have a ligamentous strain. Continue to apply ice to the area is much your able. Please follow-up with your primary care physician if you do not have improving your symptoms in the next 1-2 weeks. Please return immediately if you develop weakness, numbness, spreading redness from the area, or any other symptoms that are concerning to you. Referrals: HILARY HERNANDEZ MD [Primary Care Provider] - Follow up as needed
== END 2017-05-29 23:51 | disposition home or self-care (01) ==
LOC: ER 21:51
DX: S89.92XA Unspecified injury of left lower leg, initial encounter (principal); X58.XXXA Exposure to other specified factors, initial encounter; Y93.02 Activity, running; J45.909 Unspecified asthma, uncomplicated; I25.10 Atherosclerotic heart disease of native coronary artery without angina pectoris; I12.0 Hypertensive chronic kidney disease with stage 5 chronic kidney disease or end stage renal disease; E11.22 Type 2 diabetes mellitus with diabetic chronic kidney disease; N18.6 End stage renal disease; Z99.2 Dependence on renal dialysis; Z88.5 Allergy status to narcotic agent; Z88.1 Allergy status to other antibiotic agents; Z88.4 Allergy status to anesthetic agent; Z87.892 Personal history of anaphylaxis; Z88.6 Allergy status to analgesic agent
CPT/HCPCS: 99283; 73562; L1830

== ENCOUNTER 2017-08-22 15:04 | Inpatient (IN) | payer MEDICARE, MEDICAID ==
[2017-08-22] MEDS ORDERED: FUROSEMIDE INJ/PF 40 MG/4 ML SDV IV ONE (15:43)
[2017-08-22] MEDS ORDERED: MORPHINE SULFATE 10 MG/ML INJ IV ONE (15:44)
[2017-08-22] MEDS ORDERED: ONDANSETRON HCL INJ/PF 4 MG/2 ML SDV IV ONE (15:44)
[2017-08-22] MEDS ORDERED: NITROGLYCERIN 2% OINTMENT 1 GM PACKET TP ONE (15:44)
--- NOTE | 2017-08-22 15:45 | ER Document Report ---
ED General - General Stated Complaint: SHORTNESS OF BREATH Time Seen by Provider: 08/22/17 15:11 Mode of Arrival: Medic Information source: Patient Notes: This is a 32-year-old female with a history of end-stage renal disease (on hemodialysis), diabetes, hypertension, seizures. The patient is brought in by EMS because of shortness of breath. Patient is due for dialysis tomorrow. She does report cough and low-grade fever for the past day. TRAVEL OUTSIDE OF THE [place] IN LAST 30 DAYS: No - HPI Onset: Just prior to arrival Onset/Duration: Gradual Quality of pain: Dull Severity: Moderate Pain Level: 2 Associated symptoms: Chills, Fever, Shortness of breath Exacerbated by: Denies Relieved by: Denies Similar symptoms previously: Yes Recently seen / treated by doctor: Yes - Related Data Allergies/Adverse Reactions: acetaminophen [From Vicodin] Allergy (Verified 05/29/17 22:34) aspirin [Aspirin] Allergy (Verified 01/13/17 04:13) Anaphylaxis ciprofloxacin [From Cipro] Allergy (Verified 01/13/17 04:13) Anaphylaxis clindamycin [Clindamycin] Allergy (Verified 01/13/17 04:13) hydrocodone [From Vicodin] Allergy (Verified 05/29/17 22:34) ibuprofen [From Motrin] Allergy (Verified 01/13/17 04:13) Anaphylaxis lidocaine [From Lidoderm] Allergy (Verified 01/13/17 04:13) Generalized rash tramadol HCl [From Ultram] Allergy (Verified 01/13/17 04:13) vancomycin [Vancomycin] Allergy (Verified 01/13/17 04:13) Shortness of Breath nitroglycerin [Nitroglycerin] Adverse Reaction (Intermediate, Verified 01/13/17 04:13) Joint pain Past Medical History - General Information source: Patient - Social History Smoking Status: Never Smoker Cigarette use (# per day): No Chew tobacco use (# tins/day): No Frequency of alcohol use: None Drug Abuse: None Lives with: Family Family History: Reviewed & Not Pertinent Patient has suicidal ideation: No Patient has homicidal ideation: No - Past Medical History Cardiac Medical History: Reports: Hx Congestive Heart Failure, Hx Coronary Artery Disease, Hx Hypertension, Hx Heart Murmur Pulmonary Medical History: Reports: Hx Asthma, Hx Pneumonia Neurological Medical History: Reports: Hx Migraine, Hx Seizures Endocrine Medical History: Reports: Hx Diabetes Mellitus Type 1, Hx Diabetes Mellitus Type 2 Renal/ Medical History: Reports: Hx End Stage Renal Disease - On hemodialysis , Hx Hemodialysis, Hx Ovarian Cysts. Denies: Hx Peritoneal Dialysis Malignancy Medical History: GI Medical History: Reports: Hx Gastritis Musculoskeltal Medical History: Skin Medical History: Reports Hx Psoriasis Psychiatric Medical History: Reports: Hx Depression Traumatic Medical History: Infectious Medical History: Past Surgical History: Reports: Hx Appendectomy, Hx Cholecystectomy, Hx Vascular Surgery - Left arm fistula; Perm Cath -Right Chest, right arm fistula - Immunizations Immunizations up to date: Yes Hx Diphtheria, Pertussis, Tetanus Vaccination: Yes Hx Pneumococcal Vaccination: 08/22/11 Review of Systems - Review of Systems Constitutional: Chills, Fever EENT: No symptoms reported Cardiovascular: No symptoms reported Respiratory: See HPI Gastrointestinal: No symptoms reported Genitourinary: No symptoms reported Female Genitourinary: No symptoms reported Musculoskeletal: No symptoms reported Skin: No symptoms reported Hematologic/Lymphatic: No symptoms reported Neurological/Psychological: No symptoms reported Physical Exam - Vital signs Vitals: Temp Resp Pulse Ox 99.1 F 24 H 100 08/22/17 15:10 08/22/17 15:10 08/22/17 15:10 Notes: Physical exam: GENERAL: 32-year-old female, alert and oriented 3, mild respiratory distress HEAD: Atraumatic, normocephalic. EYES: Pupils equal round and reactive to light, extraocular movements intact, sclera anicteric, conjunctiva are normal. ENT: TMs normal, nares patent, oropharynx clear without exudates. Moist mucous membranes. NECK: Normal range of motion, supple without obvious mass or JVD. LUNGS: Bilateral wheezes HEART: Regular rate and rhythm without murmurs, rubs or gallops. ABDOMEN: Soft, normoactive bowel sounds. No tenderness to palpation. No guarding, no rebound. No masses appreciated. EXTREMITIES: Normal range of motion, no pitting or edema. No clubbing or cyanosis. NEUROLOGICAL: Cranial nerves II through XII grossly intact. Normal speech, moving all extremities. PSYCH: Normal mood, normal affect. SKIN: Warm, Dry, normal turgor, no rashes or lesions noted. Course - Vital Signs Vital signs: Temp Pulse Resp BP Pulse Ox 99.1 F 24 H 189/98 H 97 08/22/17 15:10 08/22/17 18:24 08/22/17 18:24 08/22/17 18:00 - Laboratory Result Diagrams: 08/22/17 15:53 08/22/17 15:53 Laboratory results interpreted by me: 08/22/17 08/22/17 15:53 15:53 WBC 19.0 H RBC 3.71 L Hgb 10.6 L Hct 32.5 L RDW 17.1 H Seg Neutrophils % 88.9 H Lymphocytes % 5.4 L Absolute Neutrophils 16.9 H Sodium 136.3 L Potassium 6.2 H* Chloride 97 L Carbon Dioxide 20 L BUN 52 H Creatinine 9.81 H Est GFR ( Amer) 6 L Est GFR (Non-Af Amer) 5 L Direct Bilirubin 0.7 H Creatine Kinase 142 H - Diagnostic Test Radiology reviewed: Image reviewed, Reports reviewed - Increased opacities on chest x-ray - EKG Interpretation by Me Rate: Normal Rhythm: NSR - EKG shows normal sinus rhythm with a ventricular rate of 87, no acute EKG changes. QTC is 496 (it has been 506 on last EKG 1 month ago). Critical Care Note - Critical Care Note Total time excluding time spent on procedures (mins): 60 Discharge - Discharge Clinical Impression: Pneumonia, Hyperkalemia Condition: Stable Disposition: ADMITTED INPATIENT Admitting Provider: [facility] Unit Admitted: [facility] - Is
[2017-08-22] MEDS ORDERED: IPRATROPIUM/ALBUTEROL 0.5-2.5 MG/3 ML AMPUL NEB ONE (15:49)
[2017-08-22 16:06] LABS: ABSOLUTE BASOPHILS # (AUTO) 0.1 10^3/uL (0.0-0.2); ABSOLUTE EOSINOPHILS # (AUTO) 0.2 10^3/uL (0.0-0.6); ABSOLUTE MONOCYTES (AUTO) 0.8 10^3/uL (0.1-1.4); ABSOLUTE NEUT (AUTO) 16.9 10^3/uL (1.7-8.2); BASOPHILS % (AUTO) 0.3 % (0-2); EOSINOPHILS % (AUTO) 1.2 % (0-6); HEMATOCRIT 32.5 % (36.0-47.0); HEMOGLOBIN 10.6 g/dL (12.0-15.5); HGB HCT DIFFERENCE -0.7; LYMPHOCYTES % (AUTO) 5.4 % (13-45); MEAN CORPUSCULAR HEMOGLOBIN 28.5 pg (27.0-33.4); MEAN CORPUSCULAR HGB CONC 32.5 g/dL (32.0-36.0); MEAN CORPUSCULAR VOLUME 88 fl (80-97); MONOCYTES % (AUTO) 4.2 % (3-13); RED BLOOD COUNT 3.71 10^6/uL (3.72-5.28); RED CELL DISTRIBUTION WIDTH 17.1 % (11.5-14.0); SEGMENTED NEUTROPHILS % (AUTO) 88.9 % (42-78)
[2017-08-22 16:21] LABS: ALANINE AMINOTRANSFERASE 25 U/L (9-52); ALBUMIN 4.6 g/dL (3.5-5.0); ALKALINE PHOSPHATASE 100 U/L (38-126); ANION GAP 19 (5-19); ASPARTATE AMINO TRANSFERASE 16 U/L (14-36); BILIRUBIN,DIRECT 0.7 mg/dL (0.0-0.4); BILIRUBIN,TOTAL 0.7 mg/dL (0.2-1.3); BLOOD UREA NITROGEN 52 mg/dL (7-20); CALCIUM 8.9 mg/dL (8.4-10.2); CARBON DIOXIDE 20 mmol/L (22-30); CHLORIDE 97 mmol/L (98-107); CREATINE KINASE 142 U/L (30-135); CREATININE RESULT 9.81 mg/dL (0.52-1.25); GLUCOSE 105 mg/dL (75-110); SODIUM 136.3 mmol/L (137-145); TOTAL PROTEIN 8.2 g/dL (6.3-8.2)
[2017-08-22 16:25] LABS: POTASSIUM 6.2 mmol/L (3.6-5.0)
[2017-08-22 16:32] LABS: CREATINE KINASE MB 1.33 ng/mL (<4.55)
[2017-08-22 16:34] LABS: TROPONIN I < 0.012 ng/mL
[2017-08-22] MEDS ORDERED: INSULIN REG, HUMAN 100 UNIT/ML 3 ML VIAL (PYX) IV ONE (16:38)
[2017-08-22] MEDS ORDERED: CALCIUM GLUCONATE 1000 MG/10 ML INJ IV ONE ×2 (16:38→21:05)
[2017-08-22] MEDS ORDERED: DEXTROSE 50%-WATER 25 GM/50 ML DISP.SYRIN IV ONE (16:38)
[2017-08-22] MEDS ORDERED: HYDROMORPHONE HCL INJ/PF 2 MG/ML AMPULE IV ONE (17:19)
--- NOTE | 2017-08-22 18:01 | RADIOLOGY REPORT (SQ) ---
EXAM DESCRIPTION: CHEST SINGLE VIEW COMPLETED DATE/TIME: 08/22/2017 5:54 pm REASON FOR STUDY: sob COMPARISON: 07/23/2017 EXAM PARAMETERS: NUMBER OF VIEWS: One view. TECHNIQUE: Single frontal radiographic view of the chest acquired. RADIATION DOSE: NA LIMITATIONS: None. FINDINGS: LUNGS AND PLEURA: Increased patchy opacities throughout the left lung, similar residual op acities in the right lung with minimal right upper lobe improvement. No pneumothorax. No significan t effusion. MEDIASTINUM AND HILAR STRUCTURES: Stable. HEART AND VASCULAR STRUCTURES: Stable. BONES: No acute findings. HARDWARE: Right subclavian vascular stent. OTHER: No other significant finding. IMPRESSION: Increased patchy opacities throughout the left lung, similar residual opacities in the r ight lung with minimal right upper lobe improvement. TECHNICAL DOCUMENTATION: JOB ID: [id number]
[2017-08-22] MEDS ORDERED: LINEZOLID 300 ML IV ONE ×2 (18:38→19:04)
[2017-08-22] MEDS ORDERED: ALPRAZOLAM 0.5 MG TABLET PO ONE ×2 (18:41→19:18)
--- NOTE | 2017-08-22 21:14 | EKG REPORT ---
SEVERITY:- ABNORMAL ECG - SINUS RHYTHM FIRST DEGREE AV BLOCK BORDERLINE LEFT AXIS DEVIATION PROLONGED QT INTERVAL : Confirmed by: Daniela Lemons 22-Aug-2017 21:14:33
[2017-08-22] MEDS: HEPARIN SOD (PORCINE) 5,000 UNIT/ML 1 ML SYRINGE SUBCUT SCH (21:43)
[2017-08-22] MEDS ORDERED: AZTREONAM INJ 1 GM VIAL ONE (21:47)
[2017-08-22] MEDS ORDERED: AZITHROMYCIN INJ 500 MG VIAL IV ONE (21:47)
[2017-08-22 21:51] LABS: PROTHROMBIN TIME 14.3 SEC (11.4-15.4)
[2017-08-22 21:52] LABS: LIPASE 215.7 U/L (23-300); MAGNESIUM 2.2 mg/dL (1.6-2.3)
[2017-08-22 21:58] LABS: ARTERIAL BLOOD BASE EXCESS -5.1 mmol/L; ARTERIAL BLOOD O2 SATURATION 89.8 % (94-98)
[2017-08-22] MEDS: IPRATROPIUM/ALBUTEROL 0.5-2.5 MG/3 ML AMPUL NEB SCH (21:59)
[2017-08-22 22:03] LABS: CREATINE KINASE MB 1.29 ng/mL (<4.55)
[2017-08-22 22:07] LABS: TROPONIN I < 0.012 ng/mL
[2017-08-22 22:23] LABS: THYROID STIMULATING HORMONE 1.71 uIU/mL (0.47-4.68)
[2017-08-22] MEDS: AZTREONAM 1 GM in DEXTROSE 5%-WATER 50 ML IV SCH (22:55)
[2017-08-22] MEDS: AZITHROMYCIN 500 MG in DEXTROSE 5%-WATER 250 ML IV SCH (23:52)
[2017-08-23] MEDS: IPRATROPIUM/ALBUTEROL 0.5-2.5 MG/3 ML AMPUL NEB SCH ×9 (00:01→20:04)
[2017-08-23] MEDS ORDERED: BUPRENORPHINE TD PRN (00:26)
[2017-08-23] MEDS ORDERED: (PENDING PHARMACY ID) (Oxycodone Hcl/Acetaminophen [Percocet 7.5-325 Mg Tablet] 1 TAB) PO PRN (00:26)
[2017-08-23] MEDS ORDERED: TIZANIDINE HCL 4 MG TABLET PO PRN (00:26)
[2017-08-23] MEDS ORDERED: DEXTROSE 40% GEL 15 GM TUBE PO PRN (00:42)
[2017-08-23] MEDS ORDERED: DEXTROSE 40% GEL 15 GM TUBE X 2 PO PRN (00:42)
[2017-08-23] MEDS ORDERED: GLUCAGON,HUMAN RECOMB 1 MG INJ IM PRN (00:42)
[2017-08-23] MEDS ORDERED: DEXTROSE 50%-WATER SYRINGE 25 GM/50 ML DOSE IV PRN (00:42)
[2017-08-23] MEDS ORDERED: DEXTROSE 50%-WATER SYRINGE 12.5 GM/25 ML DOSE IV PRN (00:42)
[2017-08-23] MEDS ORDERED: PAROXETINE HCL 20 MG TABLET PO SCH ×2 (00:45→22:00)
[2017-08-23] MEDS ORDERED: GABAPENTIN 300 MG CAPSULE PO SCH (00:45)
[2017-08-23] MEDS: OXYCODONE-ACETAMINOPHEN 5-325 MG TABLET PO PRN (01:43)
[2017-08-23 03:25] LABS: ABSOLUTE BASOPHILS # (AUTO) 0.1 10^3/uL (0.0-0.2); ABSOLUTE EOSINOPHILS # (AUTO) 0.6 10^3/uL (0.0-0.6); ABSOLUTE LYMPHOCYTES (AUTO) 1.9 10^3/uL (0.5-4.7); ABSOLUTE MONOCYTES (AUTO) 0.6 10^3/uL (0.1-1.4); ABSOLUTE NEUT (AUTO) 10.7 10^3/uL (1.7-8.2); BASOPHILS % (AUTO) 0.8 % (0-2); HEMATOCRIT 27.1 % (36.0-47.0); HGB HCT DIFFERENCE -0.1; LYMPHOCYTES % (AUTO) 13.7 % (13-45); MEAN CORPUSCULAR HEMOGLOBIN 29.3 pg (27.0-33.4); MEAN CORPUSCULAR HGB CONC 33.3 g/dL (32.0-36.0); MEAN CORPUSCULAR VOLUME 88 fl (80-97); RED BLOOD COUNT 3.08 10^6/uL (3.72-5.28); RED CELL DISTRIBUTION WIDTH 16.8 % (11.5-14.0); SEGMENTED NEUTROPHILS % (AUTO) 77.5 % (42-78); WHITE BLOOD COUNT 13.8 10^3/uL (4.0-10.5)
[2017-08-23 03:36] LABS: ALANINE AMINOTRANSFERASE 23 U/L (9-52); ALBUMIN 4.1 g/dL (3.5-5.0); ALKALINE PHOSPHATASE 84 U/L (38-126); ASPARTATE AMINO TRANSFERASE 13 U/L (14-36); BILIRUBIN,DIRECT 0.6 mg/dL (0.0-0.4); BILIRUBIN,TOTAL 0.7 mg/dL (0.2-1.3); BLOOD UREA NITROGEN 59 mg/dL (7-20); CALCIUM 8.4 mg/dL (8.4-10.2); CHLORIDE 97 mmol/L (98-107); CREATININE RESULT 10.22 mg/dL (0.52-1.25); GLUCOSE 111 mg/dL (75-110); TOTAL PROTEIN 7.1 g/dL (6.3-8.2)
[2017-08-23 03:48] LABS: CREATINE KINASE MB 1.11 ng/mL (<4.55)
[2017-08-23 03:58] LABS: TROPONIN I < 0.012 ng/mL
[2017-08-23 04:59] LABS: ANION GAP 19 (5-19); CARBON DIOXIDE 20 mmol/L (22-30); SODIUM 135.7 mmol/L (137-145)
[2017-08-23 05:01] LABS: POTASSIUM 5.1 mmol/L (3.6-5.0)
[2017-08-23] MEDS: LABETALOL HCL 200 MG TABLET PO SCH ×3 (05:15→21:06)
[2017-08-23] MEDS: HEPARIN SOD (PORCINE) 5,000 UNIT/ML 1 ML SYRINGE SUBCUT SCH ×3 (05:15→21:04)
[2017-08-23] MEDS: AZTREONAM 1 GM in DEXTROSE 5%-WATER 50 ML IV SCH ×3 (05:15→21:08)
[2017-08-23] MEDS ORDERED: LINEZOLID 300 ML IV ONE (05:36)
[2017-08-23] MEDS: LINEZOLID 300 ML IV SCH ×2 (06:00→18:09)
[2017-08-23] MEDS: HEPARIN SOD (PORCINE) 1,000 UNIT/ML 10 ML VIAL ONE (08:42)
[2017-08-23] MEDS: HEPARIN SOD (PORCINE) 1,000 UNIT/ML 10 ML VIAL IV PRN (08:42)
[2017-08-23] MEDS ORDERED: EPOETIN ALFA INJ 20,000 UNIT/1 ML VIAL (ONCOLOGY) IV ONE (09:07)
[2017-08-23] MEDS ORDERED: EPOETIN ALFA 10,000 UNIT in SYRINGE, DISPOSABLE, 1 EACH IV ONE (10:00)
[2017-08-23] MEDS ORDERED: OXCARBAZEPINE 150 MG TABLET PO SCH (10:00)
[2017-08-23] MEDS ORDERED: (PENDING PHARMACY ID) (Clonazepam [Clonazepam] 1 TAB) PO SCH (10:00)
[2017-08-23] MEDS ORDERED: INSULIN LISPRO 100 UNIT/ML 3 ML VIAL SCH (10:00)
--- NOTE | 2017-08-23 10:17 | PDOC CONSULTATION ---
Consultation Consult Date: 08/23/17 Consult reason:: ESRD for dialysis in the setting of pneumonia and hyperkalemia History of Present Illness Admission Date/PCP: 08/22/17 18:45 HILARY HERNANDEZ MD History of Present Illness: ERICH GOODMAN is a 32 year old female who is very well-known to me as she has ESRD on hemodialysis in the setting of poorly controlled diabetes mellitus, hypertension.She is unfortunately got history of severe noncompliance with diet and medications and missing treatments. She is admitted with a history of coughing spells, shortness of breath, nausea vomiting of couple of days duration. She had fever without any chills.Initial evaluations including chest x-ray shows bronchopneumonia. She is currently being seen on hemodialysis which she is undergoing without any issues. Past Medical History Cardiac Medical History: Reports: Coronary Artery Disease, Heart Murmur, Hypertension-primary Pulmonary Medical History: Reports: Asthma, Pneumonia Neurological Medical History: Reports: Migraine, Seizures Endocrine Medical History: Reports: Diabetes Mellitus Type 1 Complications of Diabetes: Reports: Autonomic Neuropathy, Retinopathy Renal/ Medical History: Reports: End Stage Renal Disease - On hemodialysis, Hyperkalemia, Renal Osteodystropy Malignancy Medical History: GI Medical History: Musculoskeltal Medical History: Denies: Rheumatoid Arthritis, Systemic Lupus Erythematosus Skin Medical History: Reports: Psoriasis Psychiatric Medical History: Reports: Depression Infectious Medical History: Hematology Medical History: Reports Anemia of Chronic Kidney Disease Past Surgical History Past Surgical History: Reports: Appendectomy, Cholecystectomy, Dialysis Access Surgery AVF, Vascular Surgery - Left arm fistula; Perm Cath -Right Chest, right arm fistula Social History Lives with: Family Smoking Status: Never Smoker Frequency of Alcohol Use: Occasional Hx Recreational Drug Use: No Drugs: None Hx Prescription Drug Abuse: No - Advance Directive Resuscitation Status: Full Code Family History Parental Family History Reviewed: Yes - Negative for ESRD Children Family History Reviewed: No Sibling(s) Family History Reviewed.: No Medication/Allergy Home Medications: Labetalol HCl [Normodyne 200 mg Tablet] 600 mg PO Q8 11/11/16 Insulin Detemir [Levemir Flextouch] 30 units SQ BID 11/12/16 Hydralazine HCl [Apresoline 50 mg Tablet] 100 mg PO TID 01/13/17 Nifedipine [Procardia Xl] 90 mg PO BID 01/13/17 Buprenorphine [Buprenorphine] 1 patch TD Q7D PRN 08/22/17 Clonazepam [Clonazepam] 1 tab PO BID 08/22/17 Gabapentin Enacarbil [Horizant] 300 mg PO QHS 08/22/17 Insulin Lispro [Humalog Insulin (Lispro) 100 unit/mL] 0 units SQ DAILY 08/22/17 Oxcarbazepine [Trileptal 150 Mg Tablet] 150 mg PO BID 08/22/17 Oxycodone HCl/Acetaminophen [Percocet 7.5-325 mg Tablet] 1 tab PO BID PRN Paroxetine HCl [Paxil] 80 mg PO QHS 08/22/17 Tizanidine HCl 2 mg PO BID PRN 08/22/17 Allergies/Adverse Reactions: acetaminophen [From Vicodin] Allergy (Verified 05/29/17 22:34) aspirin [Aspirin] Allergy (Verified 01/13/17 04:13) Anaphylaxis ciprofloxacin [From Cipro] Allergy (Verified 01/13/17 04:13) Anaphylaxis clindamycin [Clindamycin] Allergy (Verified 01/13/17 04:13) hydrocodone [From Vicodin] Allergy (Verified 05/29/17 22:34) ibuprofen [From Motrin] Allergy (Verified 01/13/17 04:13) Anaphylaxis lidocaine [From Lidoderm] Allergy (Verified 01/13/17 04:13) Generalized rash tramadol HCl [From Ultram] Allergy (Verified 01/13/17 04:13) vancomycin [Vancomycin] Allergy (Verified 01/13/17 04:13) Shortness of Breath nitroglycerin [Nitroglycerin] Adverse Reaction (Intermediate, Verified 01/13/17 04:13) Joint pain Review of Systems Constitutional: PRESENT: fatigue, fever(s). ABSENT: headache(s), night sweats, weakness Nose, Mouth, and Throat: ABSENT: mouth pain, sore throat Cardiovascular: PRESENT: dyspnea on exertion, edema. ABSENT: orthropnea, palpitations Respiratory: PRESENT: cough, dyspnea. ABSENT: hemoptysis Gastrointestinal: PRESENT: nausea, vomiting. ABSENT: abdominal pain, coffee ground emesis, constipation, diarrhea, hematemesis Integumentary: ABSENT: lesions, pruritus Neurological: ABSENT: abnormal movements, abnormal speech, confusion, convulsions, focal weakness Hematologic/Lymphatic: ABSENT: easy bleeding, easy bruising, lymphadenopathy Physical Exam Vital Signs: Temp Pulse Resp BP Pulse Ox 97.9 F 80 18 198/93 H 92 08/23/17 08:04 08/23/17 08:04 08/23/17 08:04 08/23/17 08:04 08/23/17 08:04 Intake & Output 08/22/17 08/23/17 08/24/17 06:59 06:59 06:59 Intake Total 660 Balance 660 Weight 113.2 kg General appearance: PRESENT: no acute distress Eye exam: PRESENT: conjunctiva pink, EOMI, PERRLA. ABSENT: conjunctiva pale, nystagmus Ear exam: PRESENT: normal external ear exam Mouth exam: PRESENT: moist, neck supple Neck exam: ABSENT: lymphadenopathy, meningismus, tenderness, thyromegaly, tracheal deviation Respiratory exam: PRESENT: clear to auscultation freddy, decreased breath sounds. ABSENT: crackles, rhonchi Cardiovascular exam: PRESENT: +S1, +S2 GI/Abdominal exam: PRESENT: normal bowel sounds, soft. ABSENT: distended, organomegaly, tenderness Extremities exam: PRESENT: +1 edema Neurological exam: PRESENT: alert, awake, oriented to person, oriented to place , oriented to time Skin exam: ABSENT: erythema, mottled, rash Results Laboratory Results: 08/23/17 03:13 08/23/17 03:13 08/22/17 08/22/17 08/22/17 21:04 21:19 21:19 WBC RBC Hgb Hct MCV MCH MCHC RDW Plt Count Seg Neutrophils % Lymphocytes % Monocytes % Eosinophils % Basophils % Absolute Neutrophils Absolute Lymphocytes Absolute Monocytes Absolute Eosinophils Absolute Basophils Carbonic Acid 0.98 L HCO3/H2CO3 Ratio 19:1 ABG pH 7.39 ABG pCO2 32.4 L ABG pO2 57.1 L ABG HCO3 19.0 L ABG O2 Saturation 89.8 L ABG Base Excess -5.1 FiO2 ROOM AIR Sodium Potassium Chloride Carbon Dioxide Anion Gap BUN Creatinine Est GFR ( Amer) Est GFR (Non-Af Amer) Glucose Calcium Phosphorus 9.0 H Magnesium 2.2 Total Bilirubin AST ALT Alkaline Phosphatase Ammonia 14.9 Total Protein Albumin Amylase 116 H Lipase 215.7 TSH Free T4 08/22/17 08/23/17 08/23/17 21:19 03:13 03:13 WBC 13.8 H RBC 3.08 L Hgb 9.0 L Hct 27.1 L MCV 88 MCH 29.3 MCHC 33.3 RDW 16.8 H Plt Count 343 Seg Neutrophils % 77.5 Lymphocytes % 13.7 Monocytes % 4.0 Eosinophils % 4.0 Basophils % 0.8 Absolute Neutrophils 10.7 H Absolute Lymphocytes 1.9 Absolute Monocytes 0.6 Absolute Eosinophils 0.6 Absolute Basophils 0.1 Carbonic Acid HCO3/H2CO3 Ratio ABG pH ABG pCO2 ABG pO2 ABG HCO3 ABG O2 Saturation ABG Base Excess FiO2 Sodium 135.7 L Potassium 5.1 H D Chloride 97 L Carbon Dioxide 20 L Anion Gap 19 BUN 59 H Creatinine 10.22 H Est GFR ( Amer) 5 L Est GFR (Non-Af Amer) 4 L Glucose 111 H Calcium 8.4 Phosphorus Magnesium Total Bilirubin 0.7 AST 13 L ALT 23 Alkaline Phosphatase 84 Ammonia Total Protein 7.1 Albumin 4.1 Amylase Lipase TSH 1.71 Free T4 1.20 08/22/17 08/22/17 08/23/17 21:19 21:19 03:13 Creatine Kinase 134 102 CK-MB (CK-2) 1.29 Troponin I < 0.012 NT-Pro-B Natriuret Pep 08/23/17 08/23/17 03:13 03:13 Creatine Kinase CK-MB (CK-2) 1.11 Troponin I < 0.012 NT-Pro-B Natriuret Pep 628 H Impressions: Chest X-Ray 08/22/17 17:21 IMPRESSION: Increased patchy opacities throughout the left lung, similar residual opacities in the right lung with minimal right upper lobe improvement. Assessment & Plan - Diagnosis (1) End-stage renal disease on hemodialysis Plan: Patient has high fluid gains and hyperkalemia. Discuss again the need for strict dietary and medical compliance. She is known to be severely noncompliant with diet and medications and dialysis treatments unfortunately. Currently she is on hemodialysis which she is undergoing without any issues. We will try to remove it in 4 and 5 L of fluid as tolerated. Vital signs are stable. Orders were discussed with the treating nurse Kim. (2) Acute hypoxemic respiratory failure Plan: Patient has bronchopneumonia and is in respiratory failure. Differential also includes congestive heart failure. She responds to dialysis. She also has high fluid gains.However she is presently compensated. She is on antibiotics. (3) Anemia Qualifiers: Other causes of anemia: chronic disease, kidney Plan: We will order erythropoietin. Monitor. (5) Diabetes mellitus type 1 Qualifiers: Diabetes mellitus complication status: with kidney complications Diabetes mellitus complication detail: with chronic kidney disease Chronic kidney disease stage: stage 5, not on chronic dialysis Qualified Code(s): E10.22 - Type 1 diabetes mellitus with diabetic chronic kidney disease Plan: Advised the need for tight diabetic control. (6) Hyperkalemia Plan: See response to dialysis. Appropriate bath has been ordered. (7) Hypertension Qualifiers: Hypertension type: essential hypertension Qualified Code(s): I10 - Essential (primary) hypertension Plan: See response to dialysis. (8) Hypocalcemia Plan: Presently stable. Monitor need for replacements. (9) Obesity, morbid, BMI 40.0-49.9 Plan: Advised on the need to lose weight with respect to hypoglycemia. (10) Acute on chronic systolic CHF (congestive heart failure) Plan: This is part of the differential diagnosis. Unsure of exact clinical findings although it could be a mixed pattern with pneumonia and heart failure. Follow- up chest x-ray and see the response to dialysis.
[2017-08-23 10:29] LABS: CREATINE KINASE MB 1.34 ng/mL (<4.55)
[2017-08-23 10:38] LABS: TROPONIN I < 0.012 ng/mL
[2017-08-23] MEDS: INSULIN DETEMIR 100 UNIT/ML 3 ML PEN SUBCUT SCH ×2 (13:26→18:09)
[2017-08-23] MEDS: HYDRALAZINE HCL 50 MG TABLET PO SCH ×3 (13:28→21:07)
[2017-08-23] MEDS: NIFEDIPINE 30 MG TAB.ER.24 PO SCH ×2 (13:30→21:07)
[2017-08-23] MEDS ORDERED: ALBUTEROL SULFATE 0.083% NEB 2.5 MG/3 ML AMPUL NEB PRN (14:01)
[2017-08-23] MEDS ORDERED: OXYCODONE-ACETAMINOPHEN 5-325 MG TABLET PO PRN (15:52)
[2017-08-23] MEDS ORDERED: OXYCODONE HCL IR 5 MG TABLET PO PRN (15:53)
[2017-08-23] MEDS: INSULIN LISPRO 100 UNIT/ML 3 ML VIAL SUBCUT PRN ×2 (18:16→22:10)
--- NOTE | 2017-08-23 20:51 | PDOC H&P ---
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 In the ER she was evaluated chest x-ray was done it showed right lung infiltrate, there was associated leukocytosis. ABG was done on room air, it showed pH 7.39 PCO2 32.4 PO2 57.1 bicarbonate 19.She was also found to have hyperkalemia, she is scheduled for hemodialysis tomorrow consultation will be requested from nephrology to initiate dialysis on Wednesday. Her normal scheduled dialysis days are even-numbered days, Wednesdays and Fridays Past Medical History Cardiac Medical History: Reports: Hypertension, Heart Murmur, Other - Chronic diastolic dysfunction of left ventricle Pulmonary Medical History: Reports: Asthma, Pneumonia Neurological Medical History: Reports: Migraine, Seizures Endocrine Medical History: Reports: Diabetes Mellitus Type 1 Renal/ Medical History: Reports: End Stage Renal Disease - On hemodialysis Malignancy Medical History: GI Medical History: Musculoskeltal Medical History: Skin Medical History: Reports: Psoriasis Psychiatric Medical History: Reports: Depression Hematology: Reports: Anemia Infectious Medical History: Past Surgical History Past Surgical History: Reports: Appendectomy, Cholecystectomy, Vascular Surgery - Left arm fistula; Perm Cath -Right Chest, right arm fistula Social History Lives with: Family Smoking Status: Never Smoker Frequency of Alcohol Use: Occasional Hx Recreational Drug Use: No Drugs: None Hx Prescription Drug Abuse: No - Advance Directive Resuscitation Status: Full Code Family History Family History: Reviewed & Not Pertinent Parental Family History Reviewed: Yes Children Family History Reviewed: Yes Sibling(s) Family History Reviewed.: Yes Medication/Allergy Home Medications: RX: Labetalol HCl [Normodyne 200 mg Tablet] 600 mg PO Q8 11/11/16 RX: Insulin Detemir [Levemir Flextouch] 30 units SQ BID 11/12/16 RX: Hydralazine HCl [Apresoline 50 mg Tablet] 100 mg PO TID 01/13/17 RX: Nifedipine [Procardia Xl] 90 mg PO BID 01/13/17 Buprenorphine [Buprenorphine] 1 patch TD Q7D PRN 08/22/17 Gabapentin Enacarbil [Horizant] 300 mg PO QHS 08/22/17 Insulin Lispro [Humalog Insulin (Lispro) 100 unit/mL] 0 units SQ DAILY 08/22/17 Oxycodone HCl/Acetaminophen [Percocet 7.5-325 mg Tablet] 1 tab PO BID PRN Paroxetine HCl [Paxil] 40 mg PO QHS 08/22/17 RX: Tizanidine HCl 2 mg PO BID PRN 08/22/17 Furosemide [Lasix 80 mg Tablet] 80 mg PO Q8 08/23/17 Oxcarbazepine [Trileptal] 300 mg PO Q12 08/23/17 RX: Clonazepam [Klonopin] 0.5 mg PO Q12HP PRN 08/23/17 Allergies/Adverse Reactions: acetaminophen [From Vicodin] Allergy (Verified 05/29/17 22:34) aspirin [Aspirin] Allergy (Verified 01/13/17 04:13) Anaphylaxis ciprofloxacin [From Cipro] Allergy (Verified 01/13/17 04:13) Anaphylaxis clindamycin [Clindamycin] Allergy (Verified 01/13/17 04:13) hydrocodone [From Vicodin] Allergy (Verified 05/29/17 22:34) ibuprofen [From Motrin] Allergy (Verified 01/13/17 04:13) Anaphylaxis lidocaine [From Lidoderm] Allergy (Verified 01/13/17 04:13) Generalized rash tramadol HCl [From Ultram] Allergy (Verified 01/13/17 04:13) vancomycin [Vancomycin] Allergy (Verified 01/13/17 04:13) Shortness of Breath nitroglycerin [Nitroglycerin] Adverse Reaction (Intermediate, Verified 01/13/17 04:13) Joint pain Review of Systems Constitutional: PRESENT: fever(s) Eyes: ABSENT: visual disturbances Ears: ABSENT: hearing changes Cardiovascular: ABSENT: chest pain, dyspnea on exertion, edema, orthropnea, palpitations Respiratory: PRESENT: cough, dyspnea, sputum Gastrointestinal: ABSENT: abdominal pain, constipation, diarrhea, hematemesis, hematochezia, nausea, vomiting Genitourinary: ABSENT: dysuria, hematuria Musculoskeletal: ABSENT: joint swelling Integumentary: ABSENT: rash, wounds Neurological: ABSENT: abnormal gait, abnormal speech, confusion, dizziness, focal weakness, syncope Psychiatric: ABSENT: anxiety, depression, homidical ideation, suicidal ideation Endocrine: ABSENT: cold intolerance, heat intolerance, menstrual abnormalities, polydipsia, polyuria Hematologic/Lymphatic: ABSENT: easy bleeding, easy bruising, lymphadenopathy Physical Exam Vital Signs: Temp Pulse Resp BP Pulse Ox 98.6 F 88 16 166/72 H 96 08/23/17 15:28 08/23/17 20:24 08/23/17 15:28 08/23/17 15:28 08/23/17 15:28 Intake & Output 08/22/17 08/23/17 08/24/17 06:59 06:59 06:59 Intake Total 660 1000 Output Total 5000 Balance 660 -4000 Weight 113.2 kg General appearance: PRESENT: no acute distress, well-developed, well-nourished Head exam: PRESENT: atraumatic, normocephalic Eye exam: PRESENT: conjunctiva pink, EOMI, PERRLA. ABSENT: scleral icterus Ear exam: PRESENT: normal external ear exam Mouth exam: PRESENT: moist, tongue midline Neck exam: PRESENT: full ROM Respiratory exam: PRESENT: crackles, rhonchi Cardiovascular exam: PRESENT: RRR, +S1, +S2 Pulses: PRESENT: normal dorsalis pedis pul, +2 pedal pulses bilateral Vascular exam: PRESENT: normal capillary refill GI/Abdominal exam: PRESENT: normal bowel sounds, soft Rectal exam: PRESENT: deferred Neurological exam: PRESENT: alert, CN II-XII grossly intact Psychiatric exam: PRESENT: appropriate affect, normal mood Skin exam: PRESENT: dry, intact, warm Results Laboratory Results: 08/23/17 03:13 08/23/17 03:13 08/22/17 08/22/17 08/22/17 21:04 21:19 21:19 WBC RBC Hgb Hct MCV MCH MCHC RDW Plt Count Seg Neutrophils % Lymphocytes % Monocytes % Eosinophils % Basophils % Absolute Neutrophils Absolute Lymphocytes Absolute Monocytes Absolute Eosinophils Absolute Basophils Carbonic Acid 0.98 L HCO3/H2CO3 Ratio 19:1 ABG pH 7.39 ABG pCO2 32.4 L ABG pO2 57.1 L ABG HCO3 19.0 L ABG O2 Saturation 89.8 L ABG Base Excess -5.1 FiO2 ROOM AIR Sodium Potassium Chloride Carbon Dioxide Anion Gap BUN Creatinine Est GFR ( Amer) Est GFR (Non-Af Amer) Glucose Calcium Phosphorus 9.0 H Magnesium 2.2 Total Bilirubin AST ALT Alkaline Phosphatase Ammonia 14.9 Total Protein Albumin Amylase 116 H Lipase 215.7 TSH Free T4 08/22/17 08/23/17 08/23/17 21:19 03:13 03:13 WBC 13.8 H RBC 3.08 L Hgb 9.0 L Hct 27.1 L MCV 88 MCH 29.3 MCHC 33.3 RDW 16.8 H Plt Count 343 Seg Neutrophils % 77.5 Lymphocytes % 13.7 Monocytes % 4.0 Eosinophils % 4.0 Basophils % 0.8 Absolute Neutrophils 10.7 H Absolute Lymphocytes 1.9 Absolute Monocytes 0.6 Absolute Eosinophils 0.6 Absolute Basophils 0.1 Carbonic Acid HCO3/H2CO3 Ratio ABG pH ABG pCO2 ABG pO2 ABG HCO3 ABG O2 Saturation ABG Base Excess FiO2 Sodium 135.7 L Potassium 5.1 H D Chloride 97 L Carbon Dioxide 20 L Anion Gap 19 BUN 59 H Creatinine 10.22 H Est GFR ( Amer) 5 L Est GFR (Non-Af Amer) 4 L Glucose 111 H Calcium 8.4 Phosphorus Magnesium Total Bilirubin 0.7 AST 13 L ALT 23 Alkaline Phosphatase 84 Ammonia Total Protein 7.1 Albumin 4.1 Amylase Lipase TSH 1.71 Free T4 1.20 08/22/17 08/22/17 08/23/17 21:19 21:19 03:13 Creatine Kinase 134 102 CK-MB (CK-2) 1.29 Troponin I < 0.012 NT-Pro-B Natriuret Pep 08/23/17 08/23/17 08/23/17 03:13 03:13 09:30 Creatine Kinase 113 CK-MB (CK-2) 1.11 Troponin I < 0.012 NT-Pro-B Natriuret Pep 628 H 08/23/17 09:30 Creatine Kinase CK-MB (CK-2) 1.34 Troponin I < 0.012 NT-Pro-B Natriuret Pep Impressions: Chest X-Ray 08/22/17 17:21 IMPRESSION: Increased patchy opacities throughout the left lung, similar residual opacities in the right lung with minimal right upper lobe improvement. Assessment & Plan - Diagnosis (1) Pneumonia involving right lung Qualifiers: Pneumonia type: due to unspecified organism Lung location: unspecified part of lung Qualified Code(s): J18.9 - Pneumonia, unspecified organism Is this a current diagnosis for this admission?: Yes Plan: She has pneumonia involving the right lung, she will be treated with antibiotic to cover community-acquired pathogens and also MRSA. She has a history of vancomycin allergy (2) ESRD (end stage renal disease) Is this a current diagnosis for this admission?: Yes (3) Acute hypoxemic respiratory failure Is this a current diagnosis for this admission?: Yes Plan: She is presently requiring oxygen via nasal cannula she is not requiring presently any noninvasive positive pressure ventilation transferred
--- NOTE | 2017-08-23 20:59 | PDOC PROGRESS REPORT ---
Subjective Progress Note for:: 08/23/17 Subjective:: Patient was admitted yesterday for the management of pneumonia, she had hemodialysis today, she was seen by the bedside, she stated that she feels better than yesterday Physical Exam Vital Signs: Temp Pulse Resp BP Pulse Ox 98.6 F 88 16 166/72 H 96 08/23/17 15:28 08/23/17 20:24 08/23/17 15:28 08/23/17 15:28 08/23/17 15:28 Intake & Output 08/22/17 08/23/17 08/24/17 06:59 06:59 06:59 Intake Total 660 1000 Output Total 5000 Balance 660 -4000 Weight 113.2 kg General appearance: PRESENT: no acute distress Eye exam: PRESENT: PERRLA Respiratory exam: PRESENT: crackles Cardiovascular exam: PRESENT: +S1, +S2 GI/Abdominal exam: PRESENT: soft Neurological exam: PRESENT: alert, CN II-XII grossly intact Results Laboratory Results: 08/23/17 03:13 08/23/17 03:13 08/22/17 08/22/17 08/22/17 21:04 21:19 21:19 WBC RBC Hgb Hct MCV MCH MCHC RDW Plt Count Seg Neutrophils % Lymphocytes % Monocytes % Eosinophils % Basophils % Absolute Neutrophils Absolute Lymphocytes Absolute Monocytes Absolute Eosinophils Absolute Basophils Carbonic Acid 0.98 L HCO3/H2CO3 Ratio 19:1 ABG pH 7.39 ABG pCO2 32.4 L ABG pO2 57.1 L ABG HCO3 19.0 L ABG O2 Saturation 89.8 L ABG Base Excess -5.1 FiO2 ROOM AIR Sodium Potassium Chloride Carbon Dioxide Anion Gap BUN Creatinine Est GFR ( Amer) Est GFR (Non-Af Amer) Glucose Calcium Phosphorus 9.0 H Magnesium 2.2 Total Bilirubin AST ALT Alkaline Phosphatase Ammonia 14.9 Total Protein Albumin Amylase 116 H Lipase 215.7 TSH Free T4 08/22/17 08/23/17 08/23/17 21:19 03:13 03:13 WBC 13.8 H RBC 3.08 L Hgb 9.0 L Hct 27.1 L MCV 88 MCH 29.3 MCHC 33.3 RDW 16.8 H Plt Count 343 Seg Neutrophils % 77.5 Lymphocytes % 13.7 Monocytes % 4.0 Eosinophils % 4.0 Basophils % 0.8 Absolute Neutrophils 10.7 H Absolute Lymphocytes 1.9 Absolute Monocytes 0.6 Absolute Eosinophils 0.6 Absolute Basophils 0.1 Carbonic Acid HCO3/H2CO3 Ratio ABG pH ABG pCO2 ABG pO2 ABG HCO3 ABG O2 Saturation ABG Base Excess FiO2 Sodium 135.7 L Potassium 5.1 H D Chloride 97 L Carbon Dioxide 20 L Anion Gap 19 BUN 59 H Creatinine 10.22 H Est GFR ( Amer) 5 L Est GFR (Non-Af Amer) 4 L Glucose 111 H Calcium 8.4 Phosphorus Magnesium Total Bilirubin 0.7 AST 13 L ALT 23 Alkaline Phosphatase 84 Ammonia Total Protein 7.1 Albumin 4.1 Amylase Lipase TSH 1.71 Free T4 1.20 08/22/17 08/22/17 08/23/17 21:19 21:19 03:13 Creatine Kinase 134 102 CK-MB (CK-2) 1.29 Troponin I < 0.012 NT-Pro-B Natriuret Pep 08/23/17 08/23/17 08/23/17 03:13 03:13 09:30 Creatine Kinase 113 CK-MB (CK-2) 1.11 Troponin I < 0.012 NT-Pro-B Natriuret Pep 628 H 08/23/17 09:30 Creatine Kinase CK-MB (CK-2) 1.34 Troponin I < 0.012 NT-Pro-B Natriuret Pep Impressions: Chest X-Ray 08/22/17 17:21 IMPRESSION: Increased patchy opacities throughout the left lung, similar residual opacities in the right lung with minimal right upper lobe improvement. Assessment & Plan - Diagnosis (1) Pneumonia involving right lung Qualifiers: Pneumonia type: due to unspecified organism Lung location: unspecified part of lung Qualified Code(s): J18.9 - Pneumonia, unspecified organism Is this a current diagnosis for this admission?: Yes Plan: She will continue IV antibiotic (2) ESRD (end stage renal disease) Is this a current diagnosis for this admission?: Yes Plan: She had dialysis today (3) Acute hypoxemic respiratory failure Is this a current diagnosis for this admission?: Yes
[2017-08-23] MEDS: GABAPENTIN 300 MG CAPSULE PO SCH (21:05)
[2017-08-23] MEDS: PAROXETINE HCL 20 MG TABLET PO SCH (21:05)
[2017-08-23] MEDS: AZITHROMYCIN 500 MG in DEXTROSE 5%-WATER 250 ML IV SCH (21:08)
[2017-08-23] MEDS: OXCARBAZEPINE 150 MG TABLET PO SCH (21:09)
[2017-08-23] MEDS ORDERED: (PENDING PHARMACY ID) (Oxcarbazepine [Trileptal] 300 MG) PO SCH (22:00)
[2017-08-23] MEDS: ONDANSETRON HCL INJ/PF 4 MG/2 ML SDV IV PRN (22:34)
[2017-08-24] MEDS: HYDRALAZINE HCL 50 MG TABLET PO SCH ×3 (05:05→22:05)
[2017-08-24] MEDS: LABETALOL HCL 200 MG TABLET PO SCH ×3 (05:06→22:06)
[2017-08-24] MEDS: AZTREONAM 1 GM in DEXTROSE 5%-WATER 50 ML IV SCH ×2 (05:07→13:16)
[2017-08-24] MEDS: LINEZOLID 300 ML IV SCH ×2 (05:07→17:40)
[2017-08-24] MEDS: HEPARIN SOD (PORCINE) 5,000 UNIT/ML 1 ML SYRINGE SUBCUT SCH ×3 (05:08→22:10)
[2017-08-24 05:34] LABS: ABSOLUTE BASOPHILS # (AUTO) 0.1 10^3/uL (0.0-0.2); ABSOLUTE EOSINOPHILS # (AUTO) 0.4 10^3/uL (0.0-0.6); ABSOLUTE LYMPHOCYTES (AUTO) 1.6 10^3/uL (0.5-4.7); ABSOLUTE MONOCYTES (AUTO) 0.6 10^3/uL (0.1-1.4); ABSOLUTE NEUT (AUTO) 4.3 10^3/uL (1.7-8.2); BASOPHILS % (AUTO) 1.3 % (0-2); EOSINOPHILS % (AUTO) 5.9 % (0-6); HEMATOCRIT 29.3 % (36.0-47.0); HEMOGLOBIN 9.7 g/dL (12.0-15.5); HGB HCT DIFFERENCE -0.2; LYMPHOCYTES % (AUTO) 22.6 % (13-45); MEAN CORPUSCULAR HEMOGLOBIN 29.3 pg (27.0-33.4); MEAN CORPUSCULAR HGB CONC 33.1 g/dL (32.0-36.0); MEAN CORPUSCULAR VOLUME 89 fl (80-97); MONOCYTES % (AUTO) 8.7 % (3-13); RED BLOOD COUNT 3.31 10^6/uL (3.72-5.28); RED CELL DISTRIBUTION WIDTH 17.2 % (11.5-14.0); SEGMENTED NEUTROPHILS % (AUTO) 61.5 % (42-78)
[2017-08-24 05:55] LABS: ALBUMIN 4.2 g/dL (3.5-5.0); ANION GAP 19 (5-19); BLOOD UREA NITROGEN 43 mg/dL (7-20); CARBON DIOXIDE 24 mmol/L (22-30); CHLORIDE 94 mmol/L (98-107); GLUCOSE 84 mg/dL (75-110); POTASSIUM 5.5 mmol/L (3.6-5.0); SODIUM 137.4 mmol/L (137-145); TOTAL PROTEIN 6.9 g/dL (6.3-8.2)
[2017-08-24 05:57] LABS: ALANINE AMINOTRANSFERASE 27 U/L (9-52); ALKALINE PHOSPHATASE 83 U/L (38-126); ASPARTATE AMINO TRANSFERASE 12 U/L (14-36); BILIRUBIN,DIRECT 0.6 mg/dL (0.0-0.4); BILIRUBIN,TOTAL 0.6 mg/dL (0.2-1.3); CALCIUM 8.4 mg/dL (8.4-10.2)
[2017-08-24] MEDS: IPRATROPIUM/ALBUTEROL 0.5-2.5 MG/3 ML AMPUL NEB SCH ×3 (07:48→20:18)
--- NOTE | 2017-08-24 08:43 | RADIOLOGY REPORT (SQ) ---
EXAM DESCRIPTION: CHEST SINGLE VIEW COMPLETED DATE/TIME: 08/24/2017 6:53 am REASON FOR STUDY: chf COMPARISON: CT chest 12/30/2016, Chest films 12/25/2016, 03/21/2017, 07/23/2017, 08/22/2017 EXAM PARAMETERS: NUMBER OF VIEWS: One view. TECHNIQUE: Single frontal radiographic view of the chest acquired. RADIATION DOSE: NA LIMITATIONS: None. FINDINGS: LUNGS AND PLEURA: Partial clearing of the patchy bilateral alveolar infiltrates. There is minimal persistent perihilar edema. No pleural effusions. No pneumothorax. MEDIASTINUM AND HILAR STRUCTURES: No masses. Contour normal. HEART AND VASCULAR STRUCTURES: Stable moderate cardiomegaly BONES: No acute findings. HARDWARE: Right subclavian and axillary vein vascular stents are present, unchanged OTHER: No other significant finding. IMPRESSION: Partial clearing of the pulmonary edema pattern compared to 08/22/2017 TECHNICAL DOCUMENTATION: JOB ID: [id number]
[2017-08-24] MEDS: CLONAZEPAM 1 MG TABLET PO PRN (09:39)
[2017-08-24] MEDS: OXYCODONE-ACETAMINOPHEN 5-325 MG TABLET PO PRN ×2 (09:39→20:54)
[2017-08-24] MEDS: NIFEDIPINE 30 MG TAB.ER.24 PO SCH ×2 (09:40→22:03)
[2017-08-24] MEDS: INSULIN DETEMIR 100 UNIT/ML 3 ML PEN SUBCUT SCH ×2 (09:40→17:39)
[2017-08-24] MEDS: OXCARBAZEPINE 150 MG TABLET PO SCH ×2 (09:41→22:12)
[2017-08-24] MEDS ORDERED: SODIUM POLYSTYRENE SULFONATE 15 GM/60 ML PO ONE (16:14)
--- NOTE | 2017-08-24 20:14 | PDOC PROGRESS REPORT ---
Subjective Progress Note for:: 08/24/17 Subjective:: Patient was found lying in bed. Her shortness of breath has decreased and she feels better. No complaints of chest pain or palpitations. She says that she is on a renal diet despite an elevated potassium. She does not complain of any muscle weakness. She is also working on proper fluid restrictions. Physical Exam Vital Signs: Temp Pulse Resp BP Pulse Ox 98.1 F 79 16 140/68 H 98 08/24/17 15:27 08/24/17 15:27 08/24/17 15:27 08/24/17 15:27 08/24/17 15:27 Intake & Output 08/23/17 08/24/17 08/25/17 06:59 06:59 06:59 Intake Total 660 2377 60 Output Total 5000 Balance 660 -9501 60 Weight 113.2 kg 118.1 kg 118 kg General appearance: PRESENT: no acute distress, well-developed, well-nourished Head exam: PRESENT: atraumatic, normocephalic Mouth exam: PRESENT: moist, tongue midline Neck exam: PRESENT: full ROM. ABSENT: JVD Respiratory exam: PRESENT: crackles - -bases. ABSENT: accessory muscle use, chest wall tenderness, clear to auscultation freddy, wheezes Cardiovascular exam: PRESENT: RRR, +S1, +S2 GI/Abdominal exam: PRESENT: normal bowel sounds, soft. ABSENT: distended, organomegaly, tenderness Extremities exam: ABSENT: joint swelling, pedal edema, tenderness Musculoskeletal exam: PRESENT: normal inspection. ABSENT: deformity, tenderness Neurological exam: PRESENT: alert, awake, oriented to person, oriented to place , oriented to time, oriented to situation Psychiatric exam: PRESENT: anxious - from current family matter that is going on, appropriate affect Skin exam: PRESENT: dry, intact, normal color Results Laboratory Results: 08/24/17 05:07 08/24/17 05:07 08/24/17 08/24/17 05:07 05:07 WBC 7.0 RBC 3.31 L Hgb 9.7 L Hct 29.3 L MCV 89 MCH 29.3 MCHC 33.1 RDW 17.2 H Plt Count 380 Seg Neutrophils % 61.5 Lymphocytes % 22.6 Monocytes % 8.7 Eosinophils % 5.9 Basophils % 1.3 Absolute Neutrophils 4.3 Absolute Lymphocytes 1.6 Absolute Monocytes 0.6 Absolute Eosinophils 0.4 Absolute Basophils 0.1 Sodium 137.4 Potassium 5.5 H Chloride 94 L Carbon Dioxide 24 Anion Gap 19 BUN 43 H Creatinine 8.20 H Est GFR ( Amer) 7 L Est GFR (Non-Af Amer) 6 L Glucose 84 Calcium 8.4 Total Bilirubin 0.6 AST 12 L ALT 27 Alkaline Phosphatase 83 Total Protein 6.9 Albumin 4.2 08/22/17 08/22/17 08/23/17 21:19 21:19 03:13 Creatine Kinase 134 102 CK-MB (CK-2) 1.29 Troponin I < 0.012 NT-Pro-B Natriuret Pep 08/23/17 08/23/17 08/23/17 03:13 03:13 09:30 Creatine Kinase 113 CK-MB (CK-2) 1.11 Troponin I < 0.012 NT-Pro-B Natriuret Pep 628 H 08/23/17 08/24/17 09:30 05:07 Creatine Kinase CK-MB (CK-2) 1.34 Troponin I < 0.012 NT-Pro-B Natriuret Pep [id number] H Impressions: Chest X-Ray 08/24/17 07:00 IMPRESSION: Partial clearing of the pulmonary edema pattern compared to 2016 Assessment & Plan - Diagnosis (1) Hyperkalemia Plan: Ordering Kayexalate 15g, will make sure she is on proper bath tomorrow for dialysis. (2) ESRD (end stage renal disease) Is this a current diagnosis for this admission?: Yes Plan: continue with dialysis tomorrow morning, advised on better diet and fluid restriction (3) Acute on chronic systolic CHF (congestive heart failure) Plan: looks to be improving, will pull more fluid off tomorrow during dialysis. (4) Diabetes mellitus type 1 Qualifiers: Diabetes mellitus complication status: with kidney complications Diabetes mellitus complication detail: with chronic kidney disease Chronic kidney disease stage: stage 5, not on chronic dialysis Qualified Code(s): E10.22 - Type 1 diabetes mellitus with diabetic chronic kidney disease Plan: controlled (5) Hypocalcemia Plan: stable (6) Hypertension Qualifiers: Hypertension type: essential hypertension Qualified Code(s): I10 - Essential (primary) hypertension Plan: controlled
[2017-08-24] MEDS: ONDANSETRON HCL INJ/PF 4 MG/2 ML SDV IV PRN (21:05)
--- NOTE | 2017-08-24 21:46 | PDOC PROGRESS REPORT ---
Subjective Progress Note for:: 08/24/17 Subjective:: Patient is feeling better, she is scheduled for dialysis tomorrow, she is admitted because of pneumonia Physical Exam Vital Signs: Temp Pulse Resp BP Pulse Ox 98.5 F 83 20 144/73 H 92 08/24/17 19:52 08/24/17 20:18 08/24/17 20:18 08/24/17 19:52 08/24/17 20:18 Intake & Output 08/23/17 08/24/17 08/25/17 06:59 06:59 06:59 Intake Total 660 2377 587 Output Total 5000 Balance 660 -0259 586 Weight 113.2 kg 118.1 kg 118 kg General appearance: PRESENT: no acute distress Eye exam: PRESENT: PERRLA Respiratory exam: PRESENT: clear to auscultation freddy Cardiovascular exam: PRESENT: +S1, +S2 GI/Abdominal exam: PRESENT: soft Neurological exam: PRESENT: alert, CN II-XII grossly intact Results Laboratory Results: 08/24/17 05:07 08/24/17 05:07 08/24/17 08/24/17 05:07 05:07 WBC 7.0 RBC 3.31 L Hgb 9.7 L Hct 29.3 L MCV 89 MCH 29.3 MCHC 33.1 RDW 17.2 H Plt Count 380 Seg Neutrophils % 61.5 Lymphocytes % 22.6 Monocytes % 8.7 Eosinophils % 5.9 Basophils % 1.3 Absolute Neutrophils 4.3 Absolute Lymphocytes 1.6 Absolute Monocytes 0.6 Absolute Eosinophils 0.4 Absolute Basophils 0.1 Sodium 137.4 Potassium 5.5 H Chloride 94 L Carbon Dioxide 24 Anion Gap 19 BUN 43 H Creatinine 8.20 H Est GFR ( Amer) 7 L Est GFR (Non-Af Amer) 6 L Glucose 84 Calcium 8.4 Total Bilirubin 0.6 AST 12 L ALT 27 Alkaline Phosphatase 83 Total Protein 6.9 Albumin 4.2 08/22/17 08/22/17 08/23/17 21:19 21:19 03:13 Creatine Kinase 134 102 CK-MB (CK-2) 1.29 Troponin I < 0.012 NT-Pro-B Natriuret Pep 08/23/17 08/23/17 08/23/17 03:13 03:13 09:30 Creatine Kinase 113 CK-MB (CK-2) 1.11 Troponin I < 0.012 NT-Pro-B Natriuret Pep 628 H 08/23/17 08/24/17 09:30 05:07 Creatine Kinase CK-MB (CK-2) 1.34 Troponin I < 0.012 NT-Pro-B Natriuret Pep [id number] H Impressions: Chest X-Ray 08/24/17 07:00 IMPRESSION: Partial clearing of the pulmonary edema pattern compared to 2016 Assessment & Plan - Diagnosis (1) Pneumonia involving right lung Qualifiers: Pneumonia type: due to unspecified organism Lung location: unspecified part of lung Qualified Code(s): J18.9 - Pneumonia, unspecified organism Is this a current diagnosis for this admission?: Yes Plan: Continue IV antibiotic (2) ESRD (end stage renal disease) Is this a current diagnosis for this admission?: Yes (3) Acute hypoxemic respiratory failure Is this a current diagnosis for this admission?: Yes
[2017-08-24] MEDS: PAROXETINE HCL 20 MG TABLET PO SCH (22:03)
[2017-08-24] MEDS: GABAPENTIN 300 MG CAPSULE PO SCH (22:06)
[2017-08-25] MEDS: OXYCODONE-ACETAMINOPHEN 5-325 MG TABLET PO PRN (04:07)
[2017-08-25] MEDS ORDERED: EPOETIN ALFA INJ 20000 UNIT/1 ML VIAL (RENAL) IV PRN (05:00)
[2017-08-25] MEDS: LABETALOL HCL 200 MG TABLET PO SCH ×3 (06:16→21:05)
[2017-08-25] MEDS: HYDRALAZINE HCL 50 MG TABLET PO SCH ×3 (06:19→21:04)
[2017-08-25] MEDS: HEPARIN SOD (PORCINE) 5,000 UNIT/ML 1 ML SYRINGE SUBCUT SCH ×3 (06:21→21:06)
[2017-08-25 07:00] LABS: ALANINE AMINOTRANSFERASE 22 U/L (9-52); ALBUMIN 4.1 g/dL (3.5-5.0); ALKALINE PHOSPHATASE 80 U/L (38-126); ASPARTATE AMINO TRANSFERASE 12 U/L (14-36); BILIRUBIN,DIRECT 0.5 mg/dL (0.0-0.4); BILIRUBIN,TOTAL 0.5 mg/dL (0.2-1.3); BLOOD UREA NITROGEN 54 mg/dL (7-20); CALCIUM 8.3 mg/dL (8.4-10.2); CARBON DIOXIDE 22 mmol/L (22-30); CHLORIDE 94 mmol/L (98-107); CREATININE RESULT 10.37 mg/dL (0.52-1.25); GLUCOSE 150 mg/dL (75-110); TOTAL PROTEIN 7.4 g/dL (6.3-8.2)
[2017-08-25 07:02] LABS: ABSOLUTE BASOPHILS # (AUTO) 0.1 10^3/uL (0.0-0.2); ABSOLUTE EOSINOPHILS # (AUTO) 0.4 10^3/uL (0.0-0.6); ABSOLUTE LYMPHOCYTES (AUTO) 1.3 10^3/uL (0.5-4.7); ABSOLUTE MONOCYTES (AUTO) 0.6 10^3/uL (0.1-1.4); ABSOLUTE NEUT (AUTO) 7.1 10^3/uL (1.7-8.2); BASOPHILS % (AUTO) 0.8 % (0-2); EOSINOPHILS % (AUTO) 3.9 % (0-6); HEMATOCRIT 27.8 % (36.0-47.0); HEMOGLOBIN 9.2 g/dL (12.0-15.5); HGB HCT DIFFERENCE -0.2; LYMPHOCYTES % (AUTO) 13.8 % (13-45); MEAN CORPUSCULAR HEMOGLOBIN 29.2 pg (27.0-33.4); MEAN CORPUSCULAR VOLUME 88 fl (80-97); MONOCYTES % (AUTO) 6.7 % (3-13); RED BLOOD COUNT 3.15 10^6/uL (3.72-5.28); RED CELL DISTRIBUTION WIDTH 17.1 % (11.5-14.0); SEGMENTED NEUTROPHILS % (AUTO) 74.8 % (42-78); WHITE BLOOD COUNT 9.5 10^3/uL (4.0-10.5)
[2017-08-25 07:11] LABS: POTASSIUM 5.1 mmol/L (3.6-5.0); SODIUM 136.4 mmol/L (137-145)
[2017-08-25 07:23] LABS: ANION GAP 20 (5-19)
[2017-08-25] MEDS: IPRATROPIUM/ALBUTEROL 0.5-2.5 MG/3 ML AMPUL NEB SCH (07:56)
[2017-08-25] MEDS: HEPARIN SOD (PORCINE) 1,000 UNIT/ML 10 ML VIAL IV PRN (08:04)
[2017-08-25] MEDS ORDERED: EPOETIN ALFA 10,000 UNIT in SYRINGE, DISPOSABLE, 1 EACH IV PRN (10:33)
[2017-08-25] MEDS: INSULIN DETEMIR 100 UNIT/ML 3 ML PEN SUBCUT SCH ×2 (11:44→17:24)
[2017-08-25] MEDS: NIFEDIPINE 30 MG TAB.ER.24 PO SCH ×2 (11:44→21:05)
[2017-08-25] MEDS: LINEZOLID 600 MG TABLET PO SCH ×2 (12:55→21:05)
[2017-08-25] MEDS: OXCARBAZEPINE 150 MG TABLET PO SCH ×2 (12:56→21:06)
[2017-08-25] MEDS ORDERED: IPRATROPIUM/ALBUTEROL 0.5-2.5 MG/3 ML AMPUL NEB PRN (13:00)
--- NOTE | 2017-08-25 14:31 | PDOC PROGRESS REPORT ---
Subjective Progress Note for:: 08/25/17 Subjective:: Patient seen on hemodialysis today. She looks a whole lot better than when I saw her on Wednesday.Shortness of breath and coughing spells are markedly improved. She denies any history of chest pains nausea vomiting.Postdialysis x- ray on Wednesday shows marked improvement in her bilateral opacities indicating that she had predominant edema than pneumonia.Is unknown noncompliant patient with diet and fluids and has had multiple episodes of admission with malignant hypertension manifesting as congestive heart failure. She is currently undergoing dialysis without any issues. Vital signs are stable. Labs were reviewed with the patient and the treating nurse. Physical Exam Vital Signs: Temp Pulse Resp BP Pulse Ox 98.4 F 79 18 134/61 H 93 08/25/17 07:17 08/25/17 07:58 08/25/17 07:58 08/25/17 07:17 08/25/17 07:58 Intake & Output 08/24/17 08/25/17 08/26/17 06:59 06:59 06:59 Intake Total 2377 592 Output Total 5000 Balance -2623 592 Weight 118.1 kg 117.6 kg General appearance: PRESENT: no acute distress Respiratory exam: PRESENT: chest wall tenderness, clear to auscultation freddy. ABSENT: crackles, rhonchi Cardiovascular exam: PRESENT: RRR, +S1, +S2 GI/Abdominal exam: PRESENT: normal bowel sounds, soft. ABSENT: distended, organomegaly, tenderness Extremities exam: PRESENT: pedal edema Neurological exam: PRESENT: awake, oriented to person, oriented to place Results Laboratory Results: 08/25/17 06:21 08/25/17 06:21 08/25/17 08/25/17 06:21 06:21 WBC 9.5 RBC 3.15 L Hgb 9.2 L Hct 27.8 L MCV 88 MCH 29.2 MCHC 33.0 RDW 17.1 H Plt Count 342 Seg Neutrophils % 74.8 Lymphocytes % 13.8 Monocytes % 6.7 Eosinophils % 3.9 Basophils % 0.8 Absolute Neutrophils 7.1 Absolute Lymphocytes 1.3 Absolute Monocytes 0.6 Absolute Eosinophils 0.4 Absolute Basophils 0.1 Sodium 136.4 L Potassium 5.1 H Chloride 94 L Carbon Dioxide 22 Anion Gap 20 H BUN 54 H Creatinine 10.37 H Est GFR ( Amer) 5 L Est GFR (Non-Af Amer) 4 L Glucose 150 H Calcium 8.3 L Total Bilirubin 0.5 AST 12 L ALT 22 Alkaline Phosphatase 80 Total Protein 7.4 Albumin 4.1 08/24/17 04:20 Nasophary (Mrsa Only) MRSA Surveillance Culture - Final NO MRSA RECOVERED 08/22/17 08/22/17 08/23/17 21:19 21:19 03:13 Creatine Kinase 134 102 CK-MB (CK-2) 1.29 Troponin I < 0.012 NT-Pro-B Natriuret Pep 08/23/17 08/23/17 08/23/17 03:13 03:13 09:30 Creatine Kinase 113 CK-MB (CK-2) 1.11 Troponin I < 0.012 NT-Pro-B Natriuret Pep 628 H 08/23/17 08/24/17 08/25/17 09:30 05:07 06:21 Creatine Kinase CK-MB (CK-2) 1.34 Troponin I < 0.012 NT-Pro-B Natriuret Pep 58646 H 44375 H Impressions: Chest X-Ray 08/24/17 07:00 IMPRESSION: Partial clearing of the pulmonary edema pattern compared to 2016 Assessment & Plan - Diagnosis (1) End-stage renal disease on hemodialysis Plan: Currently she is on hemodialysis which she is undergoing without any issues. We will try to remove it in 4 and 5 L of fluid as tolerated. Vital signs are stable. Orders were discussed with the treating nurse Kim. (2) Acute on chronic systolic CHF (congestive heart failure) Plan: .Patient is currently markedly improved after undergoing dialysis on Wednesday and removal of around 5 L of fluid. This dialysis today will also make it even better as we are planning to remove another 5 L. Discussed again dietary and medical compliance and not to miss treatment on dialysis. Advised strict dietary restrictions but she always does not comply with any of these anyway which is unfortunate (3) Acute hypoxemic respiratory failure Is this a current diagnosis for this admission?: Yes Plan: Markedly improved with last hemodialysis and ultrafiltration of around 5 L. Discussed with the patient again on dietary compliance and taking her medications properly and appropriate dietary modifications which is always fallen on deaf ears. (4) Anemia Qualifiers: Other causes of anemia: chronic disease, kidney Plan: We will order erythropoietin. Monitor. (6) Diabetes mellitus type 1 Qualifiers: Diabetes mellitus complication status: with kidney complications Diabetes mellitus complication detail: with chronic kidney disease Chronic kidney disease stage: stage 5, not on chronic dialysis Qualified Code(s): E10.22 - Type 1 diabetes mellitus with diabetic chronic kidney disease (7) Hyperkalemia Plan: See response to dialysis. Appropriate bath has been ordered. (8) Hypertension Qualifiers: Hypertension type: essential hypertension Qualified Code(s): I10 - Essential (primary) hypertension Plan: Well-controlled currently. (9) Hypocalcemia Plan: Relatively stable. Monitor.
[2017-08-25] MEDS: INSULIN LISPRO 100 UNIT/ML 3 ML VIAL SUBCUT PRN (17:24)
--- NOTE | 2017-08-25 17:47 | PDOC PROGRESS REPORT ---
Subjective Progress Note for:: 08/25/17 Subjective:: Patient is much improved, the white blood cell is down Physical Exam Vital Signs: Temp Pulse Resp BP Pulse Ox 98.8 F 90 22 H 139/60 H 97 08/25/17 15:11 08/25/17 15:11 08/25/17 15:11 08/25/17 15:11 08/25/17 15:11 Intake & Output 08/24/17 08/25/17 08/26/17 06:59 06:59 06:59 Intake Total 2377 592 10 Output Total 5000 5000 Balance -6390 006 -7391 Weight 118.1 kg 117.6 kg General appearance: PRESENT: no acute distress Eye exam: PRESENT: PERRLA Respiratory exam: PRESENT: clear to auscultation freddy Cardiovascular exam: PRESENT: +S1, +S2 GI/Abdominal exam: PRESENT: soft Neurological exam: PRESENT: alert, CN II-XII grossly intact Results Laboratory Results: 08/25/17 06:21 08/25/17 06:21 08/25/17 08/25/17 06:21 06:21 WBC 9.5 RBC 3.15 L Hgb 9.2 L Hct 27.8 L MCV 88 MCH 29.2 MCHC 33.0 RDW 17.1 H Plt Count 342 Seg Neutrophils % 74.8 Lymphocytes % 13.8 Monocytes % 6.7 Eosinophils % 3.9 Basophils % 0.8 Absolute Neutrophils 7.1 Absolute Lymphocytes 1.3 Absolute Monocytes 0.6 Absolute Eosinophils 0.4 Absolute Basophils 0.1 Sodium 136.4 L Potassium 5.1 H Chloride 94 L Carbon Dioxide 22 Anion Gap 20 H BUN 54 H Creatinine 10.37 H Est GFR ( Amer) 5 L Est GFR (Non-Af Amer) 4 L Glucose 150 H Calcium 8.3 L Total Bilirubin 0.5 AST 12 L ALT 22 Alkaline Phosphatase 80 Total Protein 7.4 Albumin 4.1 08/24/17 04:20 Nasophary (Mrsa Only) MRSA Surveillance Culture - Final NO MRSA RECOVERED 08/22/17 08/22/17 08/23/17 21:19 21:19 03:13 Creatine Kinase 134 102 CK-MB (CK-2) 1.29 Troponin I < 0.012 NT-Pro-B Natriuret Pep 08/23/17 08/23/17 08/23/17 03:13 03:13 09:30 Creatine Kinase 113 CK-MB (CK-2) 1.11 Troponin I < 0.012 NT-Pro-B Natriuret Pep 628 H 08/23/17 08/24/17 08/25/17 09:30 05:07 06:21 Creatine Kinase CK-MB (CK-2) 1.34 Troponin I < 0.012 NT-Pro-B Natriuret Pep 83312 H 31772 H Impressions: Chest X-Ray 08/24/17 07:00 IMPRESSION: Partial clearing of the pulmonary edema pattern compared to 2016 Assessment & Plan - Diagnosis (1) Pneumonia involving right lung Qualifiers: Pneumonia type: due to unspecified organism Lung location: unspecified part of lung Qualified Code(s): J18.9 - Pneumonia, unspecified organism Is this a current diagnosis for this admission?: Yes (2) ESRD (end stage renal disease) Is this a current diagnosis for this admission?: Yes (3) Acute hypoxemic respiratory failure Is this a current diagnosis for this admission?: Yes (4) Chronic diastolic (congestive) heart failure Is this a current diagnosis for this admission?: Yes Plan: She has chronic diastolic heart failure, she is superimposed acute on chronic anticoagulant with pneumonia
[2017-08-25] MEDS: GABAPENTIN 300 MG CAPSULE PO SCH (21:04)
[2017-08-25] MEDS: PAROXETINE HCL 20 MG TABLET PO SCH (21:05)
[2017-08-26] MEDS: OXYCODONE-ACETAMINOPHEN 5-325 MG TABLET PO PRN ×2 (05:05→12:57)
[2017-08-26] MEDS: HYDRALAZINE HCL 50 MG TABLET PO SCH ×2 (05:05→12:57)
[2017-08-26] MEDS: LABETALOL HCL 200 MG TABLET PO SCH ×2 (05:07→12:58)
[2017-08-26] MEDS ORDERED: OXYCODONE-ACETAMINOPHEN 5-325 MG TABLET ONE (05:08)
[2017-08-26] MEDS: HEPARIN SOD (PORCINE) 5,000 UNIT/ML 1 ML SYRINGE SUBCUT SCH ×2 (05:08→13:00)
[2017-08-26] MEDS: INSULIN DETEMIR 100 UNIT/ML 3 ML PEN SUBCUT SCH (09:48)
[2017-08-26] MEDS: LINEZOLID 600 MG TABLET PO SCH (09:49)
[2017-08-26] MEDS: OXCARBAZEPINE 150 MG TABLET PO SCH (09:49)
[2017-08-26] MEDS: NIFEDIPINE 30 MG TAB.ER.24 PO SCH (09:49)
[2017-08-26 10:54] LABS: ABSOLUTE BASOPHILS # (AUTO) 0.1 10^3/uL (0.0-0.2); ABSOLUTE EOSINOPHILS # (AUTO) 0.3 10^3/uL (0.0-0.6); ABSOLUTE LYMPHOCYTES (AUTO) 1.5 10^3/uL (0.5-4.7); ABSOLUTE MONOCYTES (AUTO) 0.6 10^3/uL (0.1-1.4); ABSOLUTE NEUT (AUTO) 4.8 10^3/uL (1.7-8.2); BASOPHILS % (AUTO) 1.2 % (0-2); EOSINOPHILS % (AUTO) 4.2 % (0-6); HEMATOCRIT 30.3 % (36.0-47.0); HEMOGLOBIN 9.9 g/dL (12.0-15.5); HGB HCT DIFFERENCE -0.6; LYMPHOCYTES % (AUTO) 20.8 % (13-45); MEAN CORPUSCULAR HEMOGLOBIN 29.1 pg (27.0-33.4); MEAN CORPUSCULAR HGB CONC 32.8 g/dL (32.0-36.0); MEAN CORPUSCULAR VOLUME 89 fl (80-97); MONOCYTES % (AUTO) 7.9 % (3-13); RED BLOOD COUNT 3.41 10^6/uL (3.72-5.28); RED CELL DISTRIBUTION WIDTH 17.1 % (11.5-14.0); SEGMENTED NEUTROPHILS % (AUTO) 65.9 % (42-78); WHITE BLOOD COUNT 7.3 10^3/uL (4.0-10.5)
[2017-08-26 11:00] LABS: BLOOD UREA NITROGEN 32 mg/dL (7-20); CARBON DIOXIDE 26 mmol/L (22-30); GLUCOSE 129 mg/dL (75-110); POTASSIUM 5.1 mmol/L (3.6-5.0)
[2017-08-26 11:15] LABS: ANION GAP 19 (5-19); CHLORIDE 95 mmol/L (98-107); SODIUM 139.7 mmol/L (137-145)
[2017-08-26 12:53] VITALS: BP 153/77
[2017-08-26] MEDS: CLONAZEPAM 1 MG TABLET PO PRN (12:58)
--- NOTE | 2017-08-26 12:58 | PDOC PROGRESS REPORT ---
Subjective Progress Note for:: 08/26/17 Subjective:: She is laying bed currently uncomfortable because she is going through withdraw from her pain medication patch. She denies fevers, chills or SOB. Physical Exam Vital Signs: Temp Pulse Resp BP Pulse Ox 98.5 F 75 16 186/68 H 97 08/26/17 11:46 08/26/17 11:52 08/26/17 11:52 08/26/17 11:46 08/26/17 11:52 Intake & Output 08/25/17 08/26/17 08/27/17 06:59 06:59 06:59 Intake Total 592 874 Output Total 5000 Balance 592 -4126 Weight 117.6 kg 112.9 kg General appearance: PRESENT: no acute distress, well-developed, well-nourished Head exam: PRESENT: atraumatic, normocephalic Mouth exam: PRESENT: moist, tongue midline Neck exam: PRESENT: full ROM. ABSENT: JVD, tracheal deviation Respiratory exam: PRESENT: clear to auscultation freddy. ABSENT: accessory muscle use, chest wall tenderness, crackles, rhonchi, wheezes Cardiovascular exam: PRESENT: RRR, +S1, +S2 GI/Abdominal exam: PRESENT: normal bowel sounds, soft. ABSENT: distended, organomegaly, tenderness Extremities exam: ABSENT: joint swelling, pedal edema, tenderness Musculoskeletal exam: PRESENT: normal inspection. ABSENT: deformity, tenderness Neurological exam: PRESENT: alert, awake, oriented to person, oriented to place , oriented to time, oriented to situation Psychiatric exam: PRESENT: agitated, appropriate affect Skin exam: PRESENT: normal color. ABSENT: cyanosis, erythema, rash Results Laboratory Results: 08/26/17 09:31 08/26/17 09:31 08/26/17 08/26/17 09:31 09:31 WBC 7.3 RBC 3.41 L Hgb 9.9 L Hct 30.3 L MCV 89 MCH 29.1 MCHC 32.8 RDW 17.1 H Plt Count 414 Seg Neutrophils % 65.9 Lymphocytes % 20.8 Monocytes % 7.9 Eosinophils % 4.2 Basophils % 1.2 Absolute Neutrophils 4.8 Absolute Lymphocytes 1.5 Absolute Monocytes 0.6 Absolute Eosinophils 0.3 Absolute Basophils 0.1 Sodium 139.7 Potassium 5.1 H Chloride 95 L Carbon Dioxide 26 Anion Gap 19 BUN 32 H Creatinine 7.50 H Est GFR ( Amer) 8 L Est GFR (Non-Af Amer) 6 L Glucose 129 H Calcium 9.0 08/24/17 04:20 Nasophary (Mrsa Only) MRSA Surveillance Culture - Final NO MRSA RECOVERED 08/22/17 08/22/17 08/23/17 21:19 21:19 03:13 Creatine Kinase 134 102 CK-MB (CK-2) 1.29 Troponin I < 0.012 NT-Pro-B Natriuret Pep 08/23/17 08/23/17 08/23/17 03:13 03:13 09:30 Creatine Kinase 113 CK-MB (CK-2) 1.11 Troponin I < 0.012 NT-Pro-B Natriuret Pep 628 H 08/23/17 08/24/17 08/25/17 09:30 05:07 06:21 Creatine Kinase CK-MB (CK-2) 1.34 Troponin I < 0.012 NT-Pro-B Natriuret Pep 49153 H 94569 H Impressions: Chest X-Ray 08/24/17 07:00 IMPRESSION: Partial clearing of the pulmonary edema pattern compared to 2016 Assessment & Plan - Diagnosis (1) Acute on chronic systolic CHF (congestive heart failure) Plan: looks to be resolving, will pull more fluid on dialysis tomorrow, whether inpatient or outpatient (2) ESRD (end stage renal disease) Is this a current diagnosis for this admission?: Yes Plan: will receive dialysis tomorrow as either inpatient or outpatient pending on whether she gets discharged today. (3) Hyperkalemia Plan: stable (4) Diabetes mellitus type 1 Qualifiers: Diabetes mellitus complication status: with kidney complications Diabetes mellitus complication detail: with chronic kidney disease Chronic kidney disease stage: stage 5, not on chronic dialysis Qualified Code(s): E10.22 - Type 1 diabetes mellitus with diabetic chronic kidney disease Plan: controlled (5) Hypocalcemia Plan: stable in normal range (6) Hypertension Qualifiers: Hypertension type: essential hypertension Qualified Code(s): I10 - Essential (primary) hypertension Plan: varying, will adjust medications as outpatient - Notes Notes: Patient is ready for discharge from nephrology's stand point. If discharged today will f/u with her tomorrow as outpatient dialysis.
--- NOTE | 2017-08-26 22:49 | PDOC DISCHARGE SUMMARY ---
General - Admit/Disc Date/PCP Admission Date/Primary Care Provider: 08/22/17 18:45 HILARY HERNANDEZ MD Discharge Date: 08/26/17 - Discharge Diagnosis (1) Pneumonia involving right lung Is this a current diagnosis for this admission?: Yes (2) ESRD (end stage renal disease) Is this a current diagnosis for this admission?: Yes (3) Acute hypoxemic respiratory failure Is this a current diagnosis for this admission?: Yes (4) Chronic diastolic (congestive) heart failure Is this a current diagnosis for this admission?: Yes - Additional Information Resuscitation Status: Full Code Discharge Diet: Cardiac, Diabetic Discharge Activity: Activity As Tolerated, Balance Activity w/Rest, Weigh Daily Home Medications: Labetalol HCl [Normodyne 200 mg Tablet] 600 mg PO Q8 11/11/16 Insulin Detemir [Levemir Flextouch] 30 units SQ BID 11/12/16 Hydralazine HCl [Apresoline 50 mg Tablet] 100 mg PO TID 01/13/17 Nifedipine [Procardia Xl] 90 mg PO BID 01/13/17 Buprenorphine 1 patch TD Q7D PRN 08/22/17 Gabapentin Enacarbil [Horizant] 300 mg PO QHS 08/22/17 Insulin Lispro [Humalog Insulin (Lispro) 100 unit/mL] 0 units SQ DAILY 08/22/17 Oxycodone HCl/Acetaminophen [Percocet 7.5-325 mg Tablet] 1 tab PO BID PRN Paroxetine HCl [Paxil] 40 mg PO QHS 08/22/17 Tizanidine HCl 2 mg PO BID PRN 08/22/17 Clonazepam [Klonopin] 0.5 mg PO Q12HP PRN 08/23/17 Furosemide [Lasix 80 mg Tablet] 80 mg PO Q8 08/23/17 Oxcarbazepine [Trileptal] 300 mg PO Q12 08/23/17 Azithromycin [Zithromax] 250 mg PO DAILY #10 tablet 08/26/17 History of Present Illness History of Present Illness: Patient is a 42-year-old female with end-stage renal disease due to diabetes nephropathy on maintenance hemodialysis, she came to the emergency room for evaluation of shortness of breath, cough and fever. In the ER she was evaluated chest x-ray was done it showed right lung infiltrate, there was associated leukocytosis. ABG was done on room air, it showed pH 7.39 PCO2 32.4 PO2 57.1 bicarbonate 19.She was also found to have hyperkalemia, she is scheduled for hemodialysis tomorrow consultation will be requested from nephrology to initiate dialysis on Wednesday. Her normal scheduled dialysis days are even-numbered days, Wednesdays and Fridays Hospital Course Hospital Course: She was admitted for the management of pneumonia and edema, She was treated with IV antibiotic after hemodialysis there was significant improvement in the infiltration of the lung suggesting that part of the changes is probably pulmonary edema. Patient is improved since admission she uses pain patch,butran , she applies the patch once a week, she is due for a new patch, the pain patch is nonformulary in this hospital, she believes she is going through withdrawal syndrome, she would like to be discharged so that she can get the patch filled. Physical Exam Vital Signs: Temp Pulse Resp BP Pulse Ox 98.5 F 75 16 153/77 H 97 08/26/17 12:47 08/26/17 12:47 08/26/17 12:47 08/26/17 12:47 08/26/17 12:47 Intake & Output 08/25/17 08/26/17 08/27/17 06:59 06:59 06:59 Intake Total 592 874 Output Total 5000 Balance 592 -4126 Weight 117.6 kg 112.9 kg General appearance: PRESENT: no acute distress, well-developed, well-nourished Head exam: PRESENT: atraumatic, normocephalic Eye exam: PRESENT: conjunctiva pink, EOMI, PERRLA Ear exam: PRESENT: normal external ear exam Mouth exam: PRESENT: moist, tongue midline Neck exam: PRESENT: full ROM. ABSENT: carotid bruit, JVD, lymphadenopathy, thyromegaly Cardiovascular exam: PRESENT: RRR, +S1, +S2 Vascular exam: PRESENT: normal capillary refill GI/Abdominal exam: PRESENT: normal bowel sounds, soft Rectal exam: PRESENT: deferred Neurological exam: PRESENT: alert, awake, oriented to person, oriented to place , oriented to time, oriented to situation, CN II-XII grossly intact Psychiatric exam: PRESENT: appropriate affect, normal mood Skin exam: PRESENT: dry, intact, warm Results Laboratory Results: 08/26/17 09:31 08/26/17 09:31 08/26/17 08/26/17 09:31 09:31 WBC 7.3 RBC 3.41 L Hgb 9.9 L Hct 30.3 L MCV 89 MCH 29.1 MCHC 32.8 RDW 17.1 H Plt Count 414 Seg Neutrophils % 65.9 Lymphocytes % 20.8 Monocytes % 7.9 Eosinophils % 4.2 Basophils % 1.2 Absolute Neutrophils 4.8 Absolute Lymphocytes 1.5 Absolute Monocytes 0.6 Absolute Eosinophils 0.3 Absolute Basophils 0.1 Sodium 139.7 Potassium 5.1 H Chloride 95 L Carbon Dioxide 26 Anion Gap 19 BUN 32 H Creatinine 7.50 H Est GFR ( Amer) 8 L Est GFR (Non-Af Amer) 6 L Glucose 129 H Calcium 9.0 08/22/17 08/22/17 08/23/17 21:19 21:19 03:13 Creatine Kinase 134 102 CK-MB (CK-2) 1.29 Troponin I < 0.012 NT-Pro-B Natriuret Pep 08/23/17 08/23/17 08/23/17 03:13 03:13 09:30 Creatine Kinase 113 CK-MB (CK-2) 1.11 Troponin I < 0.012 NT-Pro-B Natriuret Pep 628 H 08/23/17 08/24/17 08/25/17 09:30 05:07 06:21 Creatine Kinase CK-MB (CK-2) 1.34 Troponin I < 0.012 NT-Pro-B Natriuret Pep 51885 H 37699 H Impressions: Chest X-Ray 08/24/17 07:00 IMPRESSION: Partial clearing of the pulmonary edema pattern compared to 2016
== END 2017-08-26 14:07 | disposition home or self-care (01) | DRG 193 ==
LOC: ER 15:04 → EH 18:45 → 3W 20:10
PROVIDERS: ADMIT Internal Medicine; ATTEND Internal Medicine
PROC: 5A1D70Z Performance of Urinary Filtration, Intermittent, Less than 6 Hours Per Day (ICD-10-PCS; principal; 2017-08-23)
DX: J18.9 Pneumonia, unspecified organism (principal); N18.6 End stage renal disease; J96.01 Acute respiratory failure with hypoxia; I50.33 Acute on chronic diastolic (congestive) heart failure; I13.2 Hypertensive heart and chronic kidney disease with heart failure and with stage 5 chronic kidney disease, or end stage renal disease; Z68.41 Body mass index [BMI] 40.0-44.9, adult; E10.21 Type 1 diabetes mellitus with diabetic nephropathy; E10.22 Type 1 diabetes mellitus with diabetic chronic kidney disease; D63.1 Anemia in chronic kidney disease; E83.51 Hypocalcemia; E66.01 Morbid (severe) obesity due to excess calories; E87.5 Hyperkalemia; G40.909 Epilepsy, unspecified, not intractable, without status epilepticus; Z99.2 Dependence on renal dialysis; Z88.6 Allergy status to analgesic agent; Z88.1 Allergy status to other antibiotic agents; Z88.3 Allergy status to other anti-infective agents; Z88.8 Allergy status to other drugs, medicaments and biological substances; Z79.4 Long term (current) use of insulin; Z79.899 Other long term (current) drug therapy
CPT/HCPCS: 36415; 36600; 71010; 80048; 80053; 80076; 82140; 82150; 82550; 82553; 82803; 82962; 83036; 83690; 83735; 83880; 84100; 84439; 84443; 84484; 85025; 85610; 85730; 87040; 93005; 93010; 94640; 96365; 96375; 99291; J0456; J0610; J1170; J1644; J1815; J1940; J2020; J2270; J2405; J3490; J7060; J7620; Q4081

== ENCOUNTER 2017-10-02 14:59 | Emergency (ER) | payer MEDICARE, MEDICAID ==
[2017-10-02 15:06] VITALS: BP 179/76
--- NOTE | 2017-10-02 15:32 | ER Document Report ---
HPI - HPI Pain Level: 4 Notes: Patient is a 32-year-old female with CKD on dialysis, diabetes, obesity, chronic back pain who presents the ED with acute on chronic left lower back pain with radicular symptoms extending down to her left knee. Patient states that her acute on chronic symptoms began yesterday without any known injury. Patient states that her pain management provider did send in a prescription for a buccal pain medication, and she has been continuing to use her Butrans patch which is in place today. Patient states that any movement makes it worse. She denies any recent injections or procedures to her lower back. She denies any recent illness. Patient states that she did have her dialysis session yesterday without any problems. Denies any headache, fever, neck pain, URI, sore throat, chest pain, palpitations, syncope, cough, shortness of breath, wheeze, dyspnea, abdominal pain, nausea/vomiting/diarrhea, urinary retention, dysuria, hematuria, loss of control of bowel or bladder, numbness/tingling, saddle anesthesia, muscle paralysis/weakness, or rash. - ROS Notes: REVIEW OF SYSTEMS: CONSTITUTIONAL : Denies fever, chills, or sweats. Denies recent illness. EENT: Denies eye, ear, throat, or mouth pain or symptoms. Denies nasal or sinus congestion or discharge. Denies throat, tongue, or mouth swelling or difficulty swallowing. CARDIOVASCULAR: Denies chest pain. Denies palpitations or racing or irregular heart beat. Denies ankle edema. RESPIRATORY: Denies cough, cold, or chest congestion. Denies shortness of breath, difficulty breathing, or wheezing. GASTROINTESTINAL: Denies abdominal pain or distention. Denies nausea, vomiting , or diarrhea. Denies blood in vomitus, stools, or per rectum. Denies black, tarry stools. Denies constipation. GENITOURINARY: on dialysis MUSCULOSKELETAL: see hpi SKIN: Denies rash, lesions or sores. NEUROLOGICAL: Denies confusion or altered mental status. Denies passing out or loss of consciousness. Denies dizziness or lightheadedness. Denies headache. Denies weakness or paralysis or loss of use of either side. Denies problems with gait or speech. Denies sensory loss, numbness, or tingling. ALL OTHER SYSTEMS REVIEWED AND NEGATIVE. Dictation was performed using [employer] voice recognition software - REPRODUCTIVE Reproductive: DENIES: : - DERM Skin Color: Normal Past Medical History - Social History Smoking Status: Never Smoker Family History: Reviewed & Not Pertinent Patient has suicidal ideation: No Patient has homicidal ideation: No - Past Medical History Cardiac Medical History: Reports: Hx Congestive Heart Failure, Hx Coronary Artery Disease, Hx Hypertension, Hx Heart Murmur Pulmonary Medical History: Reports: Hx Asthma, Hx Pneumonia Neurological Medical History: Reports: Hx Migraine, Hx Seizures Endocrine Medical History: Reports: Hx Diabetes Mellitus Type 1, Hx Diabetes Mellitus Type 2 Renal/ Medical History: Reports: Hx End Stage Renal Disease - On hemodialysis , Hx Hemodialysis, Hx Ovarian Cysts. Denies: Hx Peritoneal Dialysis Malignancy Medical History: GI Medical History: Reports: Hx Gastritis. Denies: Hx Pancreatitis Musculoskeltal Medical History: Skin Medical History: Reports Hx Psoriasis Psychiatric Medical History: Reports: Hx Depression Traumatic Medical History: Infectious Medical History: Past Surgical History: Reports: Hx Appendectomy, Hx Cholecystectomy, Hx Vascular Surgery - Left arm fistula; Perm Cath -Right Chest, right arm fistula - Immunizations Immunizations up to date: Yes Hx Diphtheria, Pertussis, Tetanus Vaccination: Yes Hx Pneumococcal Vaccination: 08/22/11 Vertical Provider Document - CONSTITUTIONAL Agree With Documented VS: Yes Notes: PHYSICAL EXAMINATION: GENERAL: Well-appearing, well-nourished and in no acute distress. A&Ox4 LUNGS: Breath sounds clear to auscultation bilaterally and equal. No wheezes rales or rhonchi. HEART: Regular rate and rhythm without murmurs, rubs, gallops. ABDOMEN: Soft, nontender, nondistended abdomen. No guarding, no rebound. No masses appreciated. Normal bowel sounds present. No CVA tenderness bilaterally. No pulsatile mass. Musculoskeletal: Ext b/l: FROM to passive/active. Strength 5+/5. No deficits noted. No bony tenderness of extremities. Back: FROM to passive/active. Strength 5+/5. No vertebral point tenderness, stepoffs, or deformities. No other bony tenderness or ecchymosis. + left paraspanal mm tenderness and left SI jt tenderness . SLR mildly positive left leg at 45 degrees. Extremities: No cyanosis, clubbing, or edema b/l. Peripheral pulses 2+. Capillary refill less than 2 seconds. NEUROLOGICAL: Normal speech, ataxic gait. Normal sensory, motor exams. Reflexes 2+ b/l. PSYCH: Normal mood, normal affect. SKIN: Warm, Dry, normal turgor, no rashes or lesions noted. - INFECTION CONTROL TRAVEL OUTSIDE OF THE [place] IN LAST 30 DAYS: No - RESPIRATORY O2 Sat by Pulse Oximetry: 100 Course - Re-evaluation Re-evalutation: 10/02/17 15:[address] Gaitan who is in agreement with d/c & plan: Patient is an afebrile, well-hydrated, 32-year-old female who presents to the ED with acute on chronic low back pain, suspect inflammatory at this time. Vitals are stable. PE is otherwise unremarkable for any focal neurological deficits. No imaging warranted at this time. Accu-Chek performed today with a blood glucose of 157. Decadron given today with strict direction to monitor blood glucose levels over the next few days. Low suspicion for any meningitis, fracture, expanding/ruptured AAA, cauda equina syndrome, epidural mass lesion/ abscess, herniated disc causing severe spinal stenosis, or other systemic infection at this time. Patient is aware that her condition can change from initial presentation and that she needs monitor symptoms closely for any acute changes. Conservative measures for symptoms otherwise. Keep your appointment on Wednesday for your MRI as ordered by your pain management clinic. Recheck with your pain management clinic next week. Recheck with your PCM next week. Return to the ED with any worsening/concerning symptoms otherwise as reviewed in discharge. Patient is in agreement. - Vital Signs Vital signs: Temp Pulse Resp BP Pulse Ox 99.0 F 92 24 H 179/76 H 100 10/02/17 15:04 10/02/17 15:04 10/02/17 15:04 10/02/17 15:04 10/02/17 15:04 Discharge - Discharge Clinical Impression: Chronic left sacroiliac pain Low back pain Qualifiers: Chronicity: acute Back pain laterality: left Sciatica presence: with sciatica Sciatica laterality: sciatica of left side Qualified Code(s): M54.42 - Lumbago with sciatica, left side Condition: Stable Disposition: HOME, SELF-CARE Instructions: Ice Packs ([facility]), Low Back Pain ([facility]), Muscle Strain ([facility]), Stretching Exercises for the Back ([facility]), Warm Packs ([facility]) Additional Instructions: Rest, Ice, Compression, Elevation Monitor blood glucose levels 2-3x/day over the next 3 days due to steroid injection Monitor for any worsening/changes in symptoms Tylenol/ibuprofen as needed Light stretches daily Strength exercises as able Moist heat and massage may help F/u with your PCP in 3-5 days for a recheck Recheck with your Pain Management clinic next week* Keep MRI appointment on Wednesday* Consider consult(s) with Orthopedics/physical therapy for ongoing/worsening symptoms Return to the ED with any worsening symptoms and/or development of fever, headache, chest pain, palpitations, syncope, shortness of breath, trouble breathing, abdominal pain, n/v/d, blood in stool/urine, loss of control of bowel /bladder, urinary retention, muscle weakness/paralysis, saddle anesthesia, numbness/tingling, or other worsening symptoms that are concerning to you. Forms: Elevated Blood Pressure Referrals: [facility] [Provider Group] - Follow up as needed Marcus Mccarty [Other] - Follow up in 3-5 days HILARY HERNANDEZ MD [ACTIVE STAFF] - Follow up in 3-5 days
[2017-10-02] MEDS ORDERED: DEXAMETHASONE SOD PHOS INJ 10 MG/1 ML VIAL IM ONE (15:38)
== END 2017-10-02 15:53 | disposition home or self-care (01) ==
LOC: ER 14:59
DX: G89.29 Other chronic pain (principal); M53.3 Sacrococcygeal disorders, not elsewhere classified; M54.42 Lumbago with sciatica, left side; I12.0 Hypertensive chronic kidney disease with stage 5 chronic kidney disease or end stage renal disease; E11.22 Type 2 diabetes mellitus with diabetic chronic kidney disease; N18.6 End stage renal disease; Z99.2 Dependence on renal dialysis; I25.10 Atherosclerotic heart disease of native coronary artery without angina pectoris; E66.9 Obesity, unspecified; Z68.39 Body mass index [BMI] 39.0-39.9, adult; J45.909 Unspecified asthma, uncomplicated
CPT/HCPCS: 99283; 96372; 82962; J1100

== ENCOUNTER 2017-10-03 14:17 | Inpatient (IN) | payer MEDICARE, MEDICAID ==
--- NOTE | 2017-10-03 14:30 | ER Document Report ---
ED Cardiac - General Stated Complaint: CHEST TIGHTNESS Time Seen by Provider: 10/03/17 14:29 Mode of Arrival: Medic Information source: Patient Notes: 32 yo obese, CHF, ESRD(dialysis m-w-f), HTN, DM, Asthma, non hyperlipedemic, female last night after leaving the ER went to sleep, woke up and felt tightness in my chest, ithing/burning in throat, then started chest aching with shortness opf breath 8:20 pm constant since last night. Used inhalers Albuterol , symbicort without relief. Tried benadryl and hydroxyzine thinking that it was allergy related- got shot of Decadron when seen yesterday for low back pain. The tightness eased up some and was able to lay back down. Recurred at 1 am felt burning/itching sensation back of mouth and throat and chest tightness and shortness of breath and it is still there. Stood up at home chest felt like it was crushing and she got dizzy so she told her mom she didn't think she could drive herself to the ER. Could not finish stress test, is supposed to have a cardiac cath- not scheduled yet. Pneumonia last month. Low grade fever, mild cough with thick gritty dark yellow mucous, Nauseated, vomited this afternoon once, diarrhea few days. No hx of PE. Had flu shot. TRAVEL OUTSIDE OF THE [place] IN LAST 30 DAYS: No - Related Data Allergies/Adverse Reactions: acetaminophen [From Vicodin] Allergy (Verified 10/02/17 15:04) aspirin [Aspirin] Allergy (Verified 10/02/17 15:04) Anaphylaxis ciprofloxacin [From Cipro] Allergy (Verified 10/02/17 15:04) Anaphylaxis clindamycin [Clindamycin] Allergy (Verified 10/02/17 15:04) hydrocodone [From Vicodin] Allergy (Verified 10/02/17 15:04) ibuprofen [From Motrin] Allergy (Verified 10/02/17 15:04) Anaphylaxis lidocaine [From Lidoderm] Allergy (Verified 10/02/17 15:04) Generalized rash tramadol HCl [From Ultram] Allergy (Verified 10/02/17 15:04) vancomycin [Vancomycin] Allergy (Verified 10/02/17 15:04) Shortness of Breath nitroglycerin [Nitroglycerin] Adverse Reaction (Intermediate, Verified 10/02/17 15:04) Joint pain Past Medical History - General Information source: Patient - Social History Smoking Status: Never Smoker Frequency of alcohol use: None Drug Abuse: None Lives with: Family Family History: Reviewed & Not Pertinent - Past Medical History Cardiac Medical History: Reports: Hx Congestive Heart Failure, Hx Hypertension, Hx Heart Murmur Pulmonary Medical History: Reports: Hx Asthma, Hx Pneumonia Neurological Medical History: Reports: Hx Migraine, Hx Seizures Endocrine Medical History: Reports: Hx Diabetes Mellitus Type 1 Renal/ Medical History: Reports: Hx End Stage Renal Disease - On hemodialysis , Hx Hemodialysis, Hx Ovarian Cysts. Denies: Hx Peritoneal Dialysis Malignancy Medical History: GI Medical History: Reports: Hx Gastritis. Denies: Hx Pancreatitis Musculoskeltal Medical History: Skin Medical History: Reports Hx Psoriasis Psychiatric Medical History: Reports: Hx Depression Traumatic Medical History: Infectious Medical History: Past Surgical History: Reports: Hx Appendectomy, Hx Cholecystectomy, Hx Vascular Surgery - Left arm fistula; Perm Cath -Right Chest, right arm fistula - Immunizations Immunizations up to date: Yes Hx Diphtheria, Pertussis, Tetanus Vaccination: Yes Hx Pneumococcal Vaccination: 08/22/11 Review of Systems - Review of Systems Constitutional: No symptoms reported EENT: See HPI Cardiovascular: See HPI Respiratory: See HPI Gastrointestinal: See HPI Genitourinary: No symptoms reported Female Genitourinary: No symptoms reported Musculoskeletal: No symptoms reported Skin: No symptoms reported Hematologic/Lymphatic: No symptoms reported Neurological/Psychological: No symptoms reported Physical Exam - Vital signs Vitals: Temp Pulse Resp BP Pulse Ox 97.6 F 84 18 165/75 H 98 10/03/17 14:22 10/03/17 14:22 10/03/17 14:22 10/03/17 14:22 10/03/17 14:22 Interpretation: Normal Notes: obese - Notes Notes: obese - General General appearance: Alert Notes: sleepy - HEENT Head: Normocephalic, Atraumatic Eyes: Normal Conjunctiva: Normal Pupils: PERRL Mucous membranes: Normal Pharynx: Normal Neck: Supple. No: Lymphadenopathy - Respiratory Respiratory status: No respiratory distress Chest status: Nontender Breath sounds: Rales - right Chest palpation: Normal - Cardiovascular Rhythm: Regular Heart sounds: Normal auscultation Murmur: No - Abdominal Inspection: Normal Distension: No distension Bowel sounds: Normal Tenderness: Nontender. No: Tender Organomegaly: No organomegaly - Back Back: Normal, Nontender. No: CVA tenderness - Extremities General upper extremity: Normal inspection, Nontender, Normal color, Normal ROM , Normal temperature General lower extremity: Normal inspection, Nontender, Normal color, Normal ROM , Normal temperature, Normal weight bearing. No: Lina's sign - Neurological Neuro grossly intact: Yes Cognition: Normal Orientation: AAOx4 Gardner Coma Scale Eye Opening: Spontaneous Gardner Coma Scale Verbal: Oriented Hellen Coma Scale Motor: Obeys Commands Hellen Coma Scale Total: 15 Speech: Normal Motor strength normal: LUE, RUE, LLE, RLE Sensory: Normal - Psychological Associated symptoms: Normal affect, Normal mood - Skin Skin Temperature: Warm Skin Moisture: Dry Skin Color: Normal Skin irregularity: negative: Rash Course - Re-evaluation Re-evalutation: 10/03/17 15:19 pulse ox 92%, still has persistant chest tightness mid sternal to under both breasts, and still has burning throat sensation. oxygen up to %97 with oxygen 2lpm nc. Blood being drawn. Pulse 82. 10/03/17 16:36 X-ray shows congestive heart failure, ABG ordered, pulse ox is 96% on 2 L of oxygen. 80 mg of Lasix ordered IV since she takes 80 mg by mouth 3 times a day. 10/03/17 16:53 dr connor agrees that she needs to be admitted, I checked with the nursing surpervisor who says that they have a dialysis bed and she could stay at [facility] for dialysis. 10/03/17 17:09 dr fish will admit to [facility], 1st troponin 0.023, will repeat at 18:39 - Vital Signs Vital signs: Temp Pulse Resp BP Pulse Ox 98.1 F 80 24 H 170/78 H 98 10/04/17 03:24 10/04/17 03:24 10/04/17 03:24 10/04/17 03:24 10/04/17 03:24 - Laboratory Result Diagrams: 10/04/17 02:14 10/04/17 02:14 Laboratory results interpreted by me: 10/03/17 10/03/17 10/03/17 15:02 15:02 16:35 WBC 13.4 H RBC 3.58 L Hgb 10.6 L Hct 31.2 L RDW 16.5 H Absolute Neutrophils 10.3 H APTT 39.1 H Chloride 96 L Anion Gap 20 H BUN 51 H Creatinine 9.21 H Est GFR ( Amer) 6 L Est GFR (Non-Af Amer) 5 L Glucose 62 L POC Glucose Phosphorus Direct Bilirubin 0.7 H NT-Pro-B Natriuret Pep Amylase 10/03/17 10/03/17 10/03/17 16:48 19:08 19:20 WBC RBC Hgb Hct RDW Absolute Neutrophils APTT Chloride Anion Gap BUN Creatinine Est GFR ( Amer) Est GFR (Non-Af Amer) Glucose POC Glucose 65 L 136 H Phosphorus 6.6 H Direct Bilirubin NT-Pro-B Natriuret Pep Amylase 111 H 10/03/17 19:20 WBC RBC Hgb Hct RDW Absolute Neutrophils APTT Chloride Anion Gap BUN Creatinine Est GFR ( Amer) Est GFR (Non-Af Amer) Glucose POC Glucose Phosphorus Direct Bilirubin NT-Pro-B Natriuret Pep 10854 H Amylase - EKG Interpretation by N[place] EKG shows normal: Sinus rhythm Rhythm: NSR - borderline 1st degree AV block (old) Discharge - Discharge Clinical Impression: Tachypnea, Hypoxia, ESRD (end stage renal disease) on dialysis, Hypertension, Body mass index (BMI) 35.0-35.9, adult, Insulin dependent diabetes mellitus, Hypoxemia requiring supplemental oxygen, Dizziness, Chest pain, chest pain Acute exacerbation of congestive heart failure Qualifiers: Congestive heart failure type: unspecified congestive heart failure type Qualified Code(s): I50.9 - Heart failure, unspecified Pulmonary edema Qualifiers: Chronicity: acute Qualified Code(s): J81.0 - Acute pulmonary edema Disposition: ADMITTED INPATIENT Admitting Provider: [facility] Admitted: [facility]
[2017-10-03] MEDS ORDERED: ALBUTEROL SULFATE 0.083% NEB 2.5 MG/3 ML AMPUL NEB ONE (14:49)
[2017-10-03] MEDS ORDERED: LANSOPRAZOLE 30 MG TAB.RAP.DR PO ONE (14:56)
[2017-10-03] MEDS ORDERED: FAMOTIDINE 20 MG TABLET PO ONE (14:57)
--- NOTE | 2017-10-03 15:27 | RADIOLOGY REPORT (SQ) ---
EXAM DESCRIPTION: CHEST SINGLE VIEW COMPLETED DATE/TIME: 10/03/2017 3:12 pm REASON FOR STUDY: chest pain COMPARISON: 08/24/2017 NUMBER OF VIEWS: One view. TECHNIQUE: Single frontal radiographic view of the chest acquired. LIMITATIONS: Body habitus. Portable technique. FINDINGS: LUNGS AND PLEURA: Bilateral airspace disease more conspicuous on the right. No large effu sions. MEDIASTINUM AND HILAR STRUCTURES: No masses or contour abnormality. HEART AND VASCULATURE: Cardiac enlargement. Vascular congestion. BONES: No acute findings. HARDWARE: None in the chest. OTHER: No other significant finding. IMPRESSION: Congestive heart failure. TECHNICAL DOCUMENTATION: JOB ID: [id number] [employer]- All Rights Reserved
[2017-10-03 15:35] LABS: ABSOLUTE BASOPHILS # (AUTO) 0.2 10^3/uL (0.0-0.2); ABSOLUTE EOSINOPHILS # (AUTO) 0.3 10^3/uL (0.0-0.6); ABSOLUTE LYMPHOCYTES (AUTO) 2.1 10^3/uL (0.5-4.7); ABSOLUTE MONOCYTES (AUTO) 0.6 10^3/uL (0.1-1.4); ABSOLUTE NEUT (AUTO) 10.3 10^3/uL (1.7-8.2); BASOPHILS % (AUTO) 1.3 % (0-2); EOSINOPHILS % (AUTO) 2.3 % (0-6); HEMATOCRIT 31.2 % (36.0-47.0); HEMOGLOBIN 10.6 g/dL (12.0-15.5); HGB HCT DIFFERENCE 0.6; LYMPHOCYTES % (AUTO) 15.6 % (13-45); MEAN CORPUSCULAR HEMOGLOBIN 29.7 pg (27.0-33.4); MEAN CORPUSCULAR VOLUME 87 fl (80-97); MONOCYTES % (AUTO) 4.1 % (3-13); RED BLOOD COUNT 3.58 10^6/uL (3.72-5.28); RED CELL DISTRIBUTION WIDTH 16.5 % (11.5-14.0); SEGMENTED NEUTROPHILS % (AUTO) 76.7 % (42-78); WHITE BLOOD COUNT 13.4 10^3/uL (4.0-10.5)
[2017-10-03 15:47] LABS: PROTHROMBIN TIME 13.8 SEC (11.4-15.4)
[2017-10-03 15:48] LABS: PARTIAL THROMBOPLASTIN TIME 39.1 SEC (23.5-35.8)
[2017-10-03] MEDS ORDERED: FUROSEMIDE INJ/PF 100 MG/10 ML SDV IV ONE (16:33)
[2017-10-03 17:02] LABS: ALANINE AMINOTRANSFERASE 24 U/L (9-52); ALBUMIN 4.1 g/dL (3.5-5.0); ALKALINE PHOSPHATASE 111 U/L (38-126); ASPARTATE AMINO TRANSFERASE 17 U/L (14-36); BILIRUBIN,DIRECT 0.7 mg/dL (0.0-0.4); BILIRUBIN,TOTAL 0.7 mg/dL (0.2-1.3); BLOOD UREA NITROGEN 51 mg/dL (7-20); CALCIUM 9.3 mg/dL (8.4-10.2); CHLORIDE 96 mmol/L (98-107); CREATINE KINASE 63 U/L (30-135); CREATININE RESULT 9.21 mg/dL (0.52-1.25); GLUCOSE 62 mg/dL (75-110); TOTAL PROTEIN 7.7 g/dL (6.3-8.2)
[2017-10-03 17:11] LABS: CARBON DIOXIDE 22 mmol/L (22-30); SODIUM 138.1 mmol/L (137-145)
[2017-10-03 17:14] LABS: CREATINE KINASE MB 0.93 ng/mL (<4.55); TROPONIN I 0.023 ng/mL
[2017-10-03 17:17] LABS: ANION GAP 20 (5-19)
[2017-10-03 17:34] LABS: VENOUS BLOOD BASE EXCESS -1.6 mmol/L; VENOUS BLOOD HCO3 24.1 mmol/L (20-32); VENOUS BLOOD PCO2 44.3 mmHg (35-63); VENOUS BLOOD PH 7.35 (7.30-7.42)
[2017-10-03] MEDS ORDERED: GLUCAGON,HUMAN RECOMB 1 MG INJ IM PRN (19:47)
[2017-10-03] MEDS ORDERED: DEXTROSE 40% GEL 15 GM TUBE PO PRN ×2 (19:47)
[2017-10-03] MEDS ORDERED: DEXTROSE 50%-WATER 25 GM/50 ML DISP.SYRIN IV PRN ×2 (19:47)
--- NOTE | 2017-10-03 19:51 | EKG REPORT ---
SEVERITY:- ABNORMAL ECG - SINUS RHYTHM PROBABLE LVH WITH SECONDARY REPOL ABNRM PROLONGED QT INTERVAL LEFT ANTERIOR FASCICULAR BLOCK : Confirmed by: Ciro Beckford MD 03-Oct-2017 19:51:03
[2017-10-03 20:09] LABS: LIPASE 187.7 U/L (23-300); PHOSPHORUS 6.6 mg/dL (2.5-4.5)
[2017-10-03 20:26] LABS: PARTIAL THROMBOPLASTIN TIME 40.2 SEC (23.5-35.8)
[2017-10-03 20:39] LABS: THYROID STIMULATING HORMONE 1.08 uIU/mL (0.47-4.68)
[2017-10-03] MEDS: HEPARIN SOD (PORCINE) 5,000 UNIT/ML 1 ML SYRINGE SUBCUT SCH (21:29)
[2017-10-03] MEDS: INSULIN REG, HUMAN 100 UNIT/ML 3 ML VIAL (PYX) SUBCUT PRN (21:57)
[2017-10-03] MEDS: OXYCODONE-ACETAMINOPHEN 5-325 MG TABLET PO PRN (23:39)
[2017-10-03] MEDS ORDERED: HYDRALAZINE HCL 50 MG TABLET PO ONE (23:45)
[2017-10-03] MEDS ORDERED: LABETALOL HCL 200 MG TABLET PO ONE (23:45)
[2017-10-04 01:54] LABS: APPEARANCE,URINE HAZY; BILIRUBIN,URINE NEGATIVE (NEGATIVE); GLUCOSE, URINE 50 mg/dL (NEGATIVE); KETONES,URINE NEGATIVE (NEGATIVE); LEUKOCYTE ESTERASE,URINE NEGATIVE (NEGATIVE); NITRITE,URINE NEGATIVE (NEGATIVE); PROTEIN,URINE 100 mg/dL (NEGATIVE); URINE SPECIFIC GRAVITY 1.009; UROBILINOGEN,URINE NEGATIVE mg/dL (<2.0)
[2017-10-04 02:01] LABS: URINE METHADONE SCREEN NEGATIVE; URINE OPIATES LOW NEGATIVE; URINE PHENCYCLIDINE SCREEN NEGATIVE
[2017-10-04 02:04] LABS: URINE BARBITURATES SCREEN UNCONFIRMED POSITIVE
[2017-10-04 02:26] LABS: HEMATOCRIT 28.5 % (36.0-47.0); HEMOGLOBIN 9.3 g/dL (12.0-15.5); HGB HCT DIFFERENCE -0.6; MEAN CORPUSCULAR HGB CONC 32.6 g/dL (32.0-36.0); MEAN CORPUSCULAR VOLUME 89 fl (80-97); RED CELL DISTRIBUTION WIDTH 16.6 % (11.5-14.0); WHITE BLOOD COUNT 13.5 10^3/uL (4.0-10.5)
[2017-10-04 02:42] LABS: ALANINE AMINOTRANSFERASE 30 U/L (9-52); ALBUMIN 3.8 g/dL (3.5-5.0); ALKALINE PHOSPHATASE 108 U/L (38-126); ASPARTATE AMINO TRANSFERASE 16 U/L (14-36); BILIRUBIN,DIRECT 0.6 mg/dL (0.0-0.4); BILIRUBIN,TOTAL 0.6 mg/dL (0.2-1.3); BLOOD UREA NITROGEN 52 mg/dL (7-20); CALCIUM 8.7 mg/dL (8.4-10.2); CARBON DIOXIDE 19 mmol/L (22-30); CHLORIDE 96 mmol/L (98-107); CREATININE RESULT 9.83 mg/dL (0.52-1.25); GLUCOSE 162 mg/dL (75-110)
[2017-10-04 02:53] LABS: POTASSIUM 4.8 mmol/L (3.6-5.0); SODIUM 136.6 mmol/L (137-145)
[2017-10-04 02:56] LABS: ANION GAP 22 (5-19)
[2017-10-04 03:51] LABS: CREATINE KINASE MB 0.92 ng/mL (<4.55); TROPONIN I 0.02 ng/mL
[2017-10-04] MEDS: TIZANIDINE HCL 4 MG TABLET PO PRN ×2 (04:31→22:13)
[2017-10-04] MEDS: FUROSEMIDE 80 MG TABLET PO SCH ×3 (05:12→21:40)
[2017-10-04] MEDS: LABETALOL HCL 200 MG TABLET PO SCH ×3 (05:12→21:41)
[2017-10-04] MEDS: HEPARIN SOD (PORCINE) 5,000 UNIT/ML 1 ML SYRINGE SUBCUT SCH ×3 (05:12→21:41)
[2017-10-04] MEDS: HYDRALAZINE HCL 50 MG TABLET PO SCH ×3 (05:12→21:40)
[2017-10-04] MEDS ORDERED: EPOETIN ALFA INJ 20000 UNIT/1 ML VIAL (RENAL) IV PRN (07:20)
[2017-10-04] MEDS ORDERED: EPOETIN ALFA 5,000 UNIT in SYRINGE, DISPOSABLE, 1 EACH IV PRN (07:28)
[2017-10-04] MEDS ORDERED: HEPARIN SOD (PORCINE) 1,000 UNIT/ML 10 ML VIAL IV PRN (09:12)
[2017-10-04 11:02] LABS: CREATINE KINASE MB 0.91 ng/mL (<4.55); TROPONIN I 0.018 ng/mL
[2017-10-04] MEDS: NIFEDIPINE 30 MG TAB.ER.24 PO SCH ×2 (13:01→21:40)
[2017-10-04] MEDS: INSULIN DETEMIR 100 UNIT/ML 3 ML PEN SUBCUT SCH ×2 (13:01→22:13)
[2017-10-04] MEDS: OXYCODONE-ACETAMINOPHEN 5-325 MG TABLET PO PRN (13:17)
[2017-10-04] MEDS: OXCARBAZEPINE 150 MG TABLET PO SCH ×2 (13:19→21:40)
[2017-10-04] MEDS: INSULIN REG, HUMAN 100 UNIT/ML 3 ML VIAL (PYX) SUBCUT PRN (16:43)
--- NOTE | 2017-10-04 18:15 | PDOC H&P ---
History of Present Illness Admission Date/PCP: 10/03/17 19:43 History of Present Illness: Patient 42-year-old female with end-stage renal disease on maintenance hemodialysis, she came to emergency room yesterday for evaluation of respiratory symptoms, cough, shortness of breath, sore throat. A chest x-ray was done, it showed congestive heart failure. Patient is noncompliant with her dialysis treatment, she has had many hospital admission for management of pulmonary edema. Usually after dialysis symptoms resolved suggesting that it is volume overload, she has history of chronic diastolic dysfunction of left ventricle. She was seen in emergency room on Wednesday night when she presented with lumbar radicular syndrome, she was given Decadron injection in the emergency room and discharged home she returned emergency room on Wednesday for evaluation of respiratory symptoms, cough, shortness of breath Past Medical History Cardiac Medical History: Reports: Hypertension, Other - Chronic diastolic dysfunction of left ventricle Pulmonary Medical History: Reports: Asthma, Pneumonia Neurological Medical History: Reports: Migraine, Seizures Endocrine Medical History: Reports: Diabetes Mellitus Type 1 Renal/ Medical History: Reports: End Stage Renal Disease - On hemodialysis Malignancy Medical History: GI Medical History: Musculoskeltal Medical History: Skin Medical History: Reports: Psoriasis Psychiatric Medical History: Reports: Depression Hematology: Reports: Anemia Infectious Medical History: Past Surgical History Past Surgical History: Reports: Appendectomy, Cholecystectomy, Vascular Surgery - Left arm fistula; Perm Cath -Right Chest, right arm fistula Social History Lives with: Family Smoking Status: Never Smoker Frequency of Alcohol Use: Rare Hx Recreational Drug Use: No Drugs: None Hx Prescription Drug Abuse: No Family History Family History: Reviewed & Not Pertinent Parental Family History Reviewed: Yes Children Family History Reviewed: Yes Sibling(s) Family History Reviewed.: Yes Medication/Allergy Home Medications: Albuterol Sulfate [Proair HFA Inhalation Aerosol 8.5 gm MDI] 2 puff IH Q4HP PRN 10/04/17 Buprenorphine [Butrans] 20 mcg TOP Q7D 10/04/17 Butalbital/Acetaminophen [Butalbital-Acetaminophn 50-325] 1 tab PO Q4HP PRN Clonidine HCl [Catapres 0.1 mg Tablet] 0.1 mg PO TIDHS PRN 10/04/17 Desipramine HCl [Norpramin 25 mg Tablet] 25 mg PO DAILY 10/04/17 Furosemide [Lasix 80 mg Tablet] 80 mg PO TID 10/04/17 Gabapentin Enacarbil [Horizant] 300 mg PO QPM 10/04/17 Hydralazine HCl [Apresoline 50 mg Tablet] 100 mg PO Q8 10/04/17 Hydroxyzine HCl [Atarax 10 mg Tablet] 10 mg PO Q8HP PRN 10/04/17 Insulin Detemir [Levemir] 30 units SQ BID 10/04/17 Insulin Lispro [Humalog Kwikpen U-100] 0 unit SQ .SLIDING SCALE 10/04/17 Labetalol HCl [Normodyne 200 mg Tablet] 200 mg PO Q8 10/04/17 Levetiracetam [Keppra 500 mg Tablet] 500 mg PO DAILY 10/04/17 Lisinopril [Prinivil 40 mg Tablet] 40 mg PO Q12 10/04/17 Meclizine HCl [Antivert 25 mg Tablet] 25 mg PO Q8HP PRN 10/04/17 Methocarbamol [Robaxin 750 mg Tablet] 750 mg PO Q12HP PRN 10/04/17 Mometasone Furoate [Nasonex] 2 spray NASL DAILY 10/04/17 Montelukast Sodium [Singulair 10 mg Tablet] 10 mg PO QPM 10/04/17 Nifedipine [Procardia XL 60 mg Tablet] 60 mg PO Q12 10/04/17 Omeprazole 40 mg PO DAILY 10/04/17 Oxycodone HCl/Acetaminophen [Oxycodon-Acetaminophen 7.5-325] 1 tab PO Q12HP PRN 10/04/17 Paroxetine HCl [Paxil] 40 mg PO DAILY 10/04/17 Promethazine HCl [Phenergan 25 mg Tablet] 25 mg PO Q6HP PRN 10/04/17 Allergies/Adverse Reactions: acetaminophen [From Vicodin] Allergy (Verified 10/02/17 15:04) aspirin [Aspirin] Allergy (Verified 10/02/17 15:04) Anaphylaxis ciprofloxacin [From Cipro] Allergy (Verified 10/02/17 15:04) Anaphylaxis clindamycin [Clindamycin] Allergy (Verified 10/02/17 15:04) hydrocodone [From Vicodin] Allergy (Verified 10/02/17 15:04) ibuprofen [From Motrin] Allergy (Verified 10/02/17 15:04) Anaphylaxis lidocaine [From Lidoderm] Allergy (Verified 10/02/17 15:04) Generalized rash tramadol HCl [From Ultram] Allergy (Verified 10/02/17 15:04) vancomycin [Vancomycin] Allergy (Verified 10/02/17 15:04) Shortness of Breath nitroglycerin [Nitroglycerin] Adverse Reaction (Intermediate, Verified 10/02/17 15:04) Joint pain Review of Systems Constitutional: ABSENT: chills, fever(s), headache(s), weight gain, weight loss Eyes: ABSENT: visual disturbances Ears: ABSENT: hearing changes Cardiovascular: ABSENT: chest pain, dyspnea on exertion, edema, orthropnea, palpitations Respiratory: PRESENT: cough, dyspnea, sputum Gastrointestinal: ABSENT: abdominal pain, constipation, diarrhea, hematemesis, hematochezia, nausea, vomiting Genitourinary: ABSENT: dysuria, hematuria Musculoskeletal: ABSENT: joint swelling Integumentary: ABSENT: rash, wounds Neurological: ABSENT: abnormal gait, abnormal speech, confusion, dizziness, focal weakness, syncope Psychiatric: ABSENT: anxiety, depression, homidical ideation, suicidal ideation Endocrine: ABSENT: cold intolerance, heat intolerance, menstrual abnormalities, polydipsia, polyuria Hematologic/Lymphatic: ABSENT: easy bleeding, easy bruising, lymphadenopathy Physical Exam Vital Signs: Temp Pulse Resp BP Pulse Ox 98.4 F 82 19 156/91 H 96 10/04/17 15:21 10/04/17 15:21 10/04/17 15:21 10/04/17 15:21 10/04/17 17:53 Intake & Output 10/03/17 10/04/17 10/05/17 06:59 06:59 06:59 Intake Total 680 30 Output Total 0 4800 Balance 680 -4770 Weight 122 kg 122 kg General appearance: PRESENT: no acute distress, well-developed, well-nourished Head exam: PRESENT: atraumatic, normocephalic Eye exam: PRESENT: conjunctiva pink, EOMI, PERRLA Ear exam: PRESENT: normal external ear exam Mouth exam: PRESENT: moist, tongue midline Neck exam: PRESENT: full ROM Respiratory exam: PRESENT: crackles Cardiovascular exam: PRESENT: RRR, +S1, +S2 Pulses: PRESENT: normal dorsalis pedis pul, +2 pedal pulses bilateral Vascular exam: PRESENT: normal capillary refill GI/Abdominal exam: PRESENT: normal bowel sounds, soft Rectal exam: PRESENT: deferred Neurological exam: PRESENT: alert, CN II-XII grossly intact Psychiatric exam: PRESENT: appropriate affect, normal mood Skin exam: PRESENT: dry, intact, warm Results Laboratory Results: 10/04/17 02:14 10/04/17 02:14 10/03/17 10/04/17 10/04/17 20:05 01:10 02:14 WBC 13.5 H RBC 3.20 L Hgb 9.3 L Hct 28.5 L MCV 89 MCH 29.0 MCHC 32.6 RDW 16.6 H Plt Count 324 Sodium Potassium Chloride Carbon Dioxide Anion Gap BUN Creatinine Est GFR ( Amer) Est GFR (Non-Af Amer) Glucose Calcium Total Bilirubin AST ALT Alkaline Phosphatase Ammonia < 8.7 L Total Protein Albumin Urine Color YELLOW Urine Appearance HAZY Urine pH 6.0 Ur Specific [place] 1.009 Urine Protein 100 H Urine Glucose (UA) 50 H Urine Ketones NEGATIVE Urine Blood NEGATIVE Urine Nitrite NEGATIVE Ur Leukocyte Esterase NEGATIVE Urine WBC (Auto) 4 Urine RBC (Auto) 1 10/04/17 02:14 WBC RBC Hgb Hct MCV MCH MCHC RDW Plt Count Sodium 136.6 L Potassium 4.8 Chloride 96 L Carbon Dioxide 19 L Anion Gap 22 H BUN 52 H Creatinine 9.83 H Est GFR ( Amer) 6 L Est GFR (Non-Af Amer) 5 L Glucose 162 H Calcium 8.7 Total Bilirubin 0.6 AST 16 ALT 30 Alkaline Phosphatase 108 Ammonia Total Protein 7.0 Albumin 3.8 Urine Color Urine Appearance Urine pH Ur Specific [place] Urine Protein Urine Glucose (UA) Urine Ketones Urine Blood Urine Nitrite Ur Leukocyte Esterase Urine WBC (Auto) Urine RBC (Auto) 10/04/17 10/04/17 10/04/17 02:14 02:14 08:07 Creatine Kinase 52 46 CK-MB (CK-2) 0.92 Troponin I 0.020 10/04/17 08:07 Creatine Kinase CK-MB (CK-2) 0.91 Troponin I 0.018 Impressions: Chest X-Ray 10/03/17 14:39 IMPRESSION: Congestive heart failure. Assessment & Plan - Diagnosis (1) Pulmonary edema Qualifiers: Chronicity: chronic Qualified Code(s): J81.1 - Chronic pulmonary edema Is this a current diagnosis for this admission?: Yes (2) Acute diastolic (congestive) heart failure Is this a current diagnosis for this admission?: Yes (3) ESRD (end stage renal disease) on dialysis Is this a current diagnosis for this admission?: Yes Plan: Patient admitted for management
[2017-10-04] MEDS: PAROXETINE HCL 20 MG TABLET PO SCH (21:40)
[2017-10-04] MEDS ORDERED: (PENDING PHARMACY ID) (Gabapentin Enacarbil [Horizant] 300 MG) PO SCH (22:00)
[2017-10-04] MEDS: CHLORPHENIRAMINE MALEATE 4 MG TABLET PO PRN (23:45)
[2017-10-05] MEDS: FUROSEMIDE 80 MG TABLET PO SCH ×3 (05:23→21:34)
[2017-10-05] MEDS: HYDRALAZINE HCL 50 MG TABLET PO SCH ×3 (05:23→21:34)
[2017-10-05] MEDS: LABETALOL HCL 200 MG TABLET PO SCH ×3 (05:23→21:34)
[2017-10-05] MEDS: HEPARIN SOD (PORCINE) 5,000 UNIT/ML 1 ML SYRINGE SUBCUT SCH ×3 (05:23→21:34)
[2017-10-05] MEDS: CLONAZEPAM 1 MG TABLET PO PRN (05:23)
[2017-10-05 06:10] LABS: HEMOGLOBIN 9.7 g/dL (12.0-15.5); HGB HCT DIFFERENCE -0.9; MEAN CORPUSCULAR HEMOGLOBIN 28.7 pg (27.0-33.4); MEAN CORPUSCULAR HGB CONC 32.4 g/dL (32.0-36.0); MEAN CORPUSCULAR VOLUME 89 fl (80-97); RED BLOOD COUNT 3.38 10^6/uL (3.72-5.28); RED CELL DISTRIBUTION WIDTH 16.5 % (11.5-14.0); WHITE BLOOD COUNT 11.4 10^3/uL (4.0-10.5)
[2017-10-05 06:40] LABS: ALANINE AMINOTRANSFERASE 27 U/L (9-52); ALBUMIN 4.1 g/dL (3.5-5.0); ALKALINE PHOSPHATASE 117 U/L (38-126); ASPARTATE AMINO TRANSFERASE 13 U/L (14-36); BILIRUBIN,DIRECT 0.6 mg/dL (0.0-0.4); BILIRUBIN,TOTAL 0.6 mg/dL (0.2-1.3); BLOOD UREA NITROGEN 49 mg/dL (7-20); CALCIUM 8.8 mg/dL (8.4-10.2); CREATININE RESULT 8.11 mg/dL (0.52-1.25); GLUCOSE 198 mg/dL (75-110); TOTAL PROTEIN 7.4 g/dL (6.3-8.2)
[2017-10-05 07:09] LABS: ANION GAP 20 (5-19); CARBON DIOXIDE 24 mmol/L (22-30); CHLORIDE 92 mmol/L (98-107); POTASSIUM 4.9 mmol/L (3.6-5.0)
[2017-10-05] MEDS: INSULIN REG, HUMAN 100 UNIT/ML 3 ML VIAL (PYX) SUBCUT PRN ×3 (08:04→16:12)
[2017-10-05] MEDS: NIFEDIPINE 30 MG TAB.ER.24 PO SCH ×2 (09:13→21:34)
[2017-10-05] MEDS: OXCARBAZEPINE 150 MG TABLET PO SCH ×2 (09:14→21:34)
[2017-10-05] MEDS: INSULIN DETEMIR 100 UNIT/ML 3 ML PEN SUBCUT SCH ×2 (09:14→21:35)
[2017-10-05] MEDS: OXYCODONE-ACETAMINOPHEN 5-325 MG TABLET PO PRN ×2 (14:27→21:44)
--- NOTE | 2017-10-05 14:47 | PDOC PROGRESS REPORT ---
Subjective Progress Note for:: 10/05/17 Subjective:: Patient laying in bed complaining of a headache and a sore throat that started yesterday. Currently has drainage going down the back of her throat. The headache is in the frontal part of her head and she has pain when leaning forward. She is currently not SOB and denies any chest pain. She has had no fevers. Physical Exam Vital Signs: Temp Pulse Resp BP Pulse Ox 97.7 F 77 18 143/58 H 98 10/05/17 11:53 10/05/17 11:53 10/05/17 11:53 10/05/17 11:53 10/05/17 11:53 Intake & Output 10/04/17 10/05/17 10/06/17 06:59 06:59 06:59 Intake Total 680 916 237 Output Total 0 4800 0 Balance 680 -3884 237 Weight 122 kg 121.2 kg General appearance: PRESENT: no acute distress, well-developed, well-nourished Head exam: PRESENT: atraumatic, normocephalic Mouth exam: PRESENT: moist, tongue midline Throat exam: PRESENT: post pharyngeal erythema. ABSENT: tonsillar exudate Neck exam: PRESENT: full ROM, lymphadenopathy. ABSENT: JVD Respiratory exam: PRESENT: crackles - -bases. ABSENT: accessory muscle use, chest wall tenderness, clear to auscultation freddy Cardiovascular exam: PRESENT: +S1, +S2, systolic murmur GI/Abdominal exam: PRESENT: normal bowel sounds, soft. ABSENT: organomegaly, tenderness Extremities exam: PRESENT: pedal edema - -trace+. ABSENT: joint swelling, tenderness Musculoskeletal exam: PRESENT: normal inspection. ABSENT: tenderness Neurological exam: PRESENT: alert, awake, oriented to person, oriented to place , oriented to time, oriented to situation Results Laboratory Results: 10/05/17 05:43 10/05/17 05:43 10/05/17 10/05/17 05:43 05:43 WBC 11.4 H RBC 3.38 L Hgb 9.7 L Hct 30.0 L MCV 89 MCH 28.7 MCHC 32.4 RDW 16.5 H Plt Count 347 Sodium 136.0 L Potassium 4.9 Chloride 92 L Carbon Dioxide 24 Anion Gap 20 H BUN 49 H Creatinine 8.11 H Est GFR ( Amer) 7 L Est GFR (Non-Af Amer) 6 L Glucose 198 H Calcium 8.8 Total Bilirubin 0.6 AST 13 L ALT 27 Alkaline Phosphatase 117 Total Protein 7.4 Albumin 4.1 10/04/17 01:10 Clean Catch Midstream Urine Culture - Final Mixed Urogenital Nuha 10/04/17 10/04/17 10/04/17 02:14 02:14 08:07 Creatine Kinase 52 46 CK-MB (CK-2) 0.92 Troponin I 0.020 10/04/17 08:07 Creatine Kinase CK-MB (CK-2) 0.91 Troponin I 0.018 Impressions: Chest X-Ray 10/03/17 14:39 IMPRESSION: Congestive heart failure. Assessment & Plan - Diagnosis (1) Acute exacerbation of congestive heart failure Qualifiers: Congestive heart failure type: unspecified congestive heart failure type Qualified Code(s): I50.9 - Heart failure, unspecified Plan: Will pull off a few more liters tomorrow during her dialysis treatment. Continue on IV lasix. (2) Anemia due to chronic kidney disease Plan: will give epogen during dialysis tomorrow. (3) ESRD (end stage renal disease) on dialysis Is this a current diagnosis for this admission?: Yes Plan: Will run her on dialysis tomorrow morning. Look to pull off more fluid and lower potassium. (4) Hypertension Plan: looks to be better controlled, will decrease it more by pulling more fluid off. (5) Sinusitis Plan: Patient looks to have possible sinusitis, no current fevers. Typically it will go away on its own. Recommend Tylenol for the headaches.
--- NOTE | 2017-10-05 16:08 | PDOC CONSULTATION ---
Consultation Consult Date: 10/04/17 Consult reason:: ESRD for dialysis in CHF History of Present Illness Admission Date/PCP: 10/03/17 19:43 History of Present Illness: ERICH GOODMAN is a 32 year old femaleLong-standing history of type 1 diabetes mellitus, hypertension, ESRD on hemodialysis, severe noncompliance with diet medications and continuing on a regular dialysis treatments was admitted with history of progressive shortness of breath. Evaluations revealed that she was in congestive heart failure. Currently being seen as she is undergoing dialysis. She has had multiple admissions for malignant hypertension presenting as congestive heart failure in the past. Over the last few months she is surprisingly been more compliant with her diet and medications and kept herself away from the hospital till now. Past Medical History Cardiac Medical History: Reports: Coronary Artery Disease, Heart Murmur, Hypertension-primary Pulmonary Medical History: Reports: Asthma, Pneumonia Neurological Medical History: Reports: Migraine, Seizures Endocrine Medical History: Reports: Diabetes Mellitus Type 1, Diabetes Mellitus Type 2 Complications of Diabetes: Reports: Autonomic Neuropathy, Retinopathy Renal/ Medical History: Reports: End Stage Renal Disease - On hemodialysis, Hyperkalemia, Renal Osteodystropy Malignancy Medical History: GI Medical History: Musculoskeltal Medical History: Denies: Rheumatoid Arthritis, Systemic Lupus Erythematosus Skin Medical History: Reports: Psoriasis Psychiatric Medical History: Reports: Depression Infectious Medical History: Hematology Medical History: Reports Anemia of Chronic Kidney Disease Past Surgical History Past Surgical History: Reports: Appendectomy, Cholecystectomy, Dialysis Access Surgery AVF, Vascular Surgery - Left arm fistula; Perm Cath -Right Chest, right arm fistula Social History Lives with: Family Smoking Status: Never Smoker Frequency of Alcohol Use: Rare Hx Recreational Drug Use: No Drugs: None Hx Prescription Drug Abuse: No Family History Parental Family History Reviewed: Yes - negative for esrd. Children Family History Reviewed: No Sibling(s) Family History Reviewed.: No Medication/Allergy Home Medications: Albuterol Sulfate [Proair HFA Inhalation Aerosol 8.5 gm MDI] 2 puff IH Q4HP PRN 10/04/17 Buprenorphine [Butrans] 20 mcg TOP Q7D 10/04/17 Butalbital/Acetaminophen [Butalbital-Acetaminophn 50-325] 1 tab PO Q4HP PRN Clonidine HCl [Catapres 0.1 mg Tablet] 0.1 mg PO TIDHS PRN 10/04/17 Desipramine HCl [Norpramin 25 mg Tablet] 25 mg PO DAILY 10/04/17 Furosemide [Lasix 80 mg Tablet] 80 mg PO TID 10/04/17 Gabapentin Enacarbil [Horizant] 300 mg PO QPM 10/04/17 Hydralazine HCl [Apresoline 50 mg Tablet] 100 mg PO Q8 10/04/17 Hydroxyzine HCl [Atarax 10 mg Tablet] 10 mg PO Q8HP PRN 10/04/17 Insulin Detemir [Levemir] 30 units SQ BID 10/04/17 Insulin Lispro [Humalog Kwikpen U-100] 0 unit SQ .SLIDING SCALE 10/04/17 Labetalol HCl [Normodyne 200 mg Tablet] 200 mg PO Q8 10/04/17 Levetiracetam [Keppra 500 mg Tablet] 500 mg PO DAILY 10/04/17 Lisinopril [Prinivil 40 mg Tablet] 40 mg PO Q12 10/04/17 Meclizine HCl [Antivert 25 mg Tablet] 25 mg PO Q8HP PRN 10/04/17 Methocarbamol [Robaxin 750 mg Tablet] 750 mg PO Q12HP PRN 10/04/17 Mometasone Furoate [Nasonex] 2 spray NASL DAILY 10/04/17 Montelukast Sodium [Singulair 10 mg Tablet] 10 mg PO QPM 10/04/17 Nifedipine [Procardia XL 60 mg Tablet] 60 mg PO Q12 10/04/17 Omeprazole 40 mg PO DAILY 10/04/17 Oxycodone HCl/Acetaminophen [Oxycodon-Acetaminophen 7.5-325] 1 tab PO Q12HP PRN 10/04/17 Paroxetine HCl [Paxil] 40 mg PO DAILY 10/04/17 Promethazine HCl [Phenergan 25 mg Tablet] 25 mg PO Q6HP PRN 10/04/17 Allergies/Adverse Reactions: acetaminophen [From Vicodin] Allergy (Verified 10/02/17 15:04) aspirin [Aspirin] Allergy (Verified 10/02/17 15:04) Anaphylaxis ciprofloxacin [From Cipro] Allergy (Verified 10/02/17 15:04) Anaphylaxis clindamycin [Clindamycin] Allergy (Verified 10/02/17 15:04) hydrocodone [From Vicodin] Allergy (Verified 10/02/17 15:04) ibuprofen [From Motrin] Allergy (Verified 10/02/17 15:04) Anaphylaxis lidocaine [From Lidoderm] Allergy (Verified 10/02/17 15:04) Generalized rash tramadol HCl [From Ultram] Allergy (Verified 10/02/17 15:04) vancomycin [Vancomycin] Allergy (Verified 10/02/17 15:04) Shortness of Breath nitroglycerin [Nitroglycerin] Adverse Reaction (Intermediate, Verified 10/02/17 15:04) Joint pain Review of Systems Constitutional: PRESENT: headache(s), weakness. ABSENT: fever(s), night sweats Nose, Mouth, and Throat: ABSENT: mouth pain, sore throat Cardiovascular: PRESENT: chest pain - left precordial and pleuritic., dyspnea on exertion, edema, orthropnea Gastrointestinal: ABSENT: abdominal pain, coffee ground emesis, diarrhea, dysphagia, heartburn, hematemesis, hematochezia Neurological: ABSENT: abnormal speech, confusion, focal weakness, vertigo, weakness Hematologic/Lymphatic: ABSENT: easy bruising, lymphadenopathy Physical Exam Vital Signs: Temp Pulse Resp BP Pulse Ox 98.9 F 85 16 141/83 H 96 10/04/17 13:05 10/04/17 14:00 10/04/17 13:05 10/04/17 13:05 10/04/17 13:05 Intake & Output 10/03/17 10/04/17 10/05/17 06:59 06:59 06:59 Intake Total 680 Output Total 0 Balance 680 Weight 122 kg General appearance: PRESENT: mild distress, obese Eye exam: PRESENT: conjunctiva pink, EOMI, nystagmus, PERRLA Ear exam: PRESENT: normal external ear exam Neck exam: ABSENT: lymphadenopathy, meningismus, tenderness, thyromegaly, tracheal deviation Respiratory exam: PRESENT: clear to auscultation freddy, crackles - scattered Cardiovascular exam: PRESENT: +S1, +S2, systolic murmur GI/Abdominal exam: PRESENT: normal bowel sounds, soft. ABSENT: organomegaly, tenderness Extremities exam: PRESENT: +1 edema Neurological exam: PRESENT: alert, awake, oriented to person, oriented to place , oriented to time Skin exam: ABSENT: erythema, mottled, rash Results Laboratory Results: 10/04/17 02:14 10/04/17 02:14 10/03/17 10/04/17 10/04/17 20:05 01:10 02:14 WBC 13.5 H RBC 3.20 L Hgb 9.3 L Hct 28.5 L MCV 89 MCH 29.0 MCHC 32.6 RDW 16.6 H Plt Count 324 Sodium Potassium Chloride Carbon Dioxide Anion Gap BUN Creatinine Est GFR ( Amer) Est GFR (Non-Af Amer) Glucose Calcium Total Bilirubin AST ALT Alkaline Phosphatase Ammonia < 8.7 L Total Protein Albumin Urine Color YELLOW Urine Appearance HAZY Urine pH 6.0 Ur Specific [place] 1.009 Urine Protein 100 H Urine Glucose (UA) 50 H Urine Ketones NEGATIVE Urine Blood NEGATIVE Urine Nitrite NEGATIVE Ur Leukocyte Esterase NEGATIVE Urine WBC (Auto) 4 Urine RBC (Auto) 1 10/04/17 02:14 WBC RBC Hgb Hct MCV MCH MCHC RDW Plt Count Sodium 136.6 L Potassium 4.8 Chloride 96 L Carbon Dioxide 19 L Anion Gap 22 H BUN 52 H Creatinine 9.83 H Est GFR ( Amer) 6 L Est GFR (Non-Af Amer) 5 L Glucose 162 H Calcium 8.7 Total Bilirubin 0.6 AST 16 ALT 30 Alkaline Phosphatase 108 Ammonia Total Protein 7.0 Albumin 3.8 Urine Color Urine Appearance Urine pH Ur Specific [place] Urine Protein Urine Glucose (UA) Urine Ketones Urine Blood Urine Nitrite Ur Leukocyte Esterase Urine WBC (Auto) Urine RBC (Auto) 10/04/17 10/04/17 10/04/17 02:14 02:14 08:07 Creatine Kinase 52 46 CK-MB (CK-2) 0.92 Troponin I 0.020 10/04/17 08:07 Creatine Kinase CK-MB (CK-2) 0.91 Troponin I 0.018 Impressions: Chest X-Ray 10/03/17 14:39 IMPRESSION: Congestive heart failure. Assessment & Plan - Diagnosis (1) Acute exacerbation of congestive heart failure Qualifiers: Congestive heart failure type: unspecified congestive heart failure type Qualified Code(s): I50.9 - Heart failure, unspecified Plan: She should respond very well to ultrafiltration on hemodialysis. We discussed at length dietary and medication compliance is. (2) ESRD (end stage renal disease) on dialysis Plan: Patient is seen on dialysis. Is being supervised to ensure safe and smooth procedure. Vital signs are stable. Plan to remove between 4 and 5 L as tolerated. (3) Insulin dependent diabetes mellitus Plan: Advised need for tight diabetic control starting with diet. (4) Chest pain Plan: Pleuritic. It looks noncardiac. Further evaluation by Dr. Singleton. (5) Anemia due to chronic kidney disease Plan: Will adjust erythropoietin. No symptoms to indicate GI bleed. (6) Hypertension Plan: Advised need for compliance with medications and diet. Continue to monitor and see the response to hemodialysis. (7) Acute pulmonary edema Plan: Should respond to ultrafiltration on dialysis.Continue to monitor closely.
--- NOTE | 2017-10-05 18:00 | PDOC PROGRESS REPORT ---
Subjective Progress Note for:: 10/05/17 Subjective:: She complained of sore throat nasal congestion Physical Exam Vital Signs: Temp Pulse Resp BP Pulse Ox 98.2 F 79 18 147/84 H 98 10/05/17 15:41 10/05/17 15:41 10/05/17 15:41 10/05/17 15:41 10/05/17 16:44 Intake & Output 10/04/17 10/05/17 10/06/17 06:59 06:59 06:59 Intake Total 680 916 237 Output Total 0 4800 0 Balance 680 -3884 237 Weight 122 kg 121.2 kg General appearance: PRESENT: no acute distress Head exam: PRESENT: atraumatic, normocephalic Eye exam: PRESENT: conjunctiva pink, EOMI, PERRLA Ear exam: PRESENT: normal external ear exam Mouth exam: PRESENT: moist, tongue midline Neck exam: PRESENT: full ROM Respiratory exam: PRESENT: clear to auscultation freddy Cardiovascular exam: PRESENT: RRR, +S1, +S2 Pulses: PRESENT: normal dorsalis pedis pul, +2 pedal pulses bilateral Vascular exam: PRESENT: normal capillary refill GI/Abdominal exam: PRESENT: normal bowel sounds, soft Rectal exam: PRESENT: deferred Neurological exam: PRESENT: alert, awake, oriented to person, oriented to place , oriented to time, oriented to situation, CN II-XII grossly intact. ABSENT: motor sensory deficit Psychiatric exam: PRESENT: appropriate affect, normal mood Skin exam: PRESENT: dry, intact, warm. ABSENT: cyanosis, rash Results Laboratory Results: 10/05/17 05:43 10/05/17 05:43 10/05/17 10/05/17 05:43 05:43 WBC 11.4 H RBC 3.38 L Hgb 9.7 L Hct 30.0 L MCV 89 MCH 28.7 MCHC 32.4 RDW 16.5 H Plt Count 347 Sodium 136.0 L Potassium 4.9 Chloride 92 L Carbon Dioxide 24 Anion Gap 20 H BUN 49 H Creatinine 8.11 H Est GFR ( Amer) 7 L Est GFR (Non-Af Amer) 6 L Glucose 198 H Calcium 8.8 Total Bilirubin 0.6 AST 13 L ALT 27 Alkaline Phosphatase 117 Total Protein 7.4 Albumin 4.1 10/04/17 01:10 Clean Catch Midstream Urine Culture - Final Mixed Urogenital Nuha 10/04/17 10/04/17 10/04/17 02:14 02:14 08:07 Creatine Kinase 52 46 CK-MB (CK-2) 0.92 Troponin I 0.020 10/04/17 08:07 Creatine Kinase CK-MB (CK-2) 0.91 Troponin I 0.018 Impressions: Chest X-Ray 10/03/17 14:39 IMPRESSION: Congestive heart failure. Assessment & Plan - Diagnosis (1) Pulmonary edema Qualifiers: Chronicity: chronic Qualified Code(s): J81.1 - Chronic pulmonary edema Is this a current diagnosis for this admission?: Yes (2) Acute diastolic (congestive) heart failure Is this a current diagnosis for this admission?: Yes (3) ESRD (end stage renal disease) on dialysis Is this a current diagnosis for this admission?: Yes (4) Acute maxillary sinusitis Qualifiers: Recurrence: not specified as recurrent Qualified Code(s): J01.00 - Acute maxillary sinusitis, unspecified Is this a current diagnosis for this admission?: Yes Plan: [id number]
[2017-10-05] MEDS: AZITHROMYCIN 250 MG TABLET PO SCH (18:46)
[2017-10-05] MEDS: PAROXETINE HCL 20 MG TABLET PO SCH (21:34)
[2017-10-05] MEDS: PHENOL/SODIUM PHENOLATE 100 SPRAY/177 ML BOTTLE PO PRN (21:34)
[2017-10-05] MEDS: CHLORPHENIRAMINE MALEATE 4 MG TABLET PO PRN (21:44)
[2017-10-06] MEDS: OXYCODONE-ACETAMINOPHEN 5-325 MG TABLET PO PRN ×3 (03:11→23:24)
[2017-10-06] MEDS ORDERED: EPOETIN ALFA INJ 20000 UNIT/1 ML VIAL (RENAL) IV PRN (05:00)
[2017-10-06] MEDS ORDERED: EPOETIN ALFA 5,000 UNIT in SYRINGE, DISPOSABLE, 1 EACH IV PRN (05:00)
[2017-10-06] MEDS: LABETALOL HCL 200 MG TABLET PO SCH ×3 (05:31→21:16)
[2017-10-06] MEDS: HEPARIN SOD (PORCINE) 5,000 UNIT/ML 1 ML SYRINGE SUBCUT SCH ×3 (05:31→21:09)
[2017-10-06] MEDS: HYDRALAZINE HCL 50 MG TABLET PO SCH ×3 (05:31→21:16)
[2017-10-06] MEDS: FUROSEMIDE 80 MG TABLET PO SCH ×3 (05:31→21:16)
[2017-10-06 06:37] LABS: HEMATOCRIT 28.2 % (36.0-47.0); HEMOGLOBIN 9.1 g/dL (12.0-15.5); HGB HCT DIFFERENCE -0.9; MEAN CORPUSCULAR HEMOGLOBIN 28.7 pg (27.0-33.4); MEAN CORPUSCULAR HGB CONC 32.3 g/dL (32.0-36.0); MEAN CORPUSCULAR VOLUME 89 fl (80-97); RED BLOOD COUNT 3.17 10^6/uL (3.72-5.28); RED CELL DISTRIBUTION WIDTH 16.6 % (11.5-14.0); WHITE BLOOD COUNT 12.2 10^3/uL (4.0-10.5)
[2017-10-06 06:52] LABS: ALANINE AMINOTRANSFERASE 23 U/L (9-52); ALKALINE PHOSPHATASE 109 U/L (38-126); ASPARTATE AMINO TRANSFERASE 12 U/L (14-36); BILIRUBIN,DIRECT 0.5 mg/dL (0.0-0.4); BILIRUBIN,TOTAL 0.5 mg/dL (0.2-1.3); BLOOD UREA NITROGEN 61 mg/dL (7-20); CALCIUM 8.5 mg/dL (8.4-10.2); CHLORIDE 92 mmol/L (98-107); CREATININE RESULT 10.37 mg/dL (0.52-1.25); GLUCOSE 90 mg/dL (75-110); POTASSIUM 4.7 mmol/L (3.6-5.0); TOTAL PROTEIN 7.2 g/dL (6.3-8.2)
[2017-10-06 07:03] LABS: CARBON DIOXIDE 23 mmol/L (22-30); SODIUM 136.4 mmol/L (137-145)
[2017-10-06 07:07] LABS: ANION GAP 21 (5-19)
[2017-10-06] MEDS: INSULIN DETEMIR 100 UNIT/ML 3 ML PEN SUBCUT SCH ×2 (09:40→21:15)
[2017-10-06] MEDS: PHENOL/SODIUM PHENOLATE 100 SPRAY/177 ML BOTTLE PO PRN (09:40)
[2017-10-06] MEDS: OXCARBAZEPINE 150 MG TABLET PO SCH ×2 (09:47→21:16)
[2017-10-06] MEDS: NIFEDIPINE 30 MG TAB.ER.24 PO SCH ×2 (09:47→21:15)
[2017-10-06] MEDS ORDERED: HEPARIN SOD (PORCINE) 1,000 UNIT/ML 10 ML VIAL IV PRN ×2 (13:12→13:13)
--- NOTE | 2017-10-06 16:11 | PDOC PROGRESS REPORT ---
Subjective Progress Note for:: 10/06/17 Subjective:: Patient had dialysis today, complaining of sore throat, there is a concern she could have DVT in the neck, venous Doppler ordered Physical Exam Vital Signs: Temp Pulse Resp BP Pulse Ox 97.8 F 80 20 134/73 H 100 10/06/17 12:01 10/06/17 14:00 10/06/17 12:01 10/06/17 12:01 10/06/17 12:01 Intake & Output 10/05/17 10/06/17 10/07/17 06:59 06:59 06:59 Intake Total 916 240 Output Total 4800 0 Balance -3884 240 Weight 121.2 kg 123.8 kg General appearance: PRESENT: no acute distress Eye exam: PRESENT: PERRLA Respiratory exam: PRESENT: clear to auscultation freddy Cardiovascular exam: PRESENT: +S1, +S2 GI/Abdominal exam: PRESENT: soft Neurological exam: PRESENT: alert Results Laboratory Results: 10/06/17 05:39 10/06/17 05:39 10/06/17 10/06/17 05:39 05:39 WBC 12.2 H RBC 3.17 L Hgb 9.1 L Hct 28.2 L MCV 89 MCH 28.7 MCHC 32.3 RDW 16.6 H Plt Count 348 Sodium 136.4 L Potassium 4.7 Chloride 92 L Carbon Dioxide 23 Anion Gap 21 H BUN 61 H Creatinine 10.37 H Est GFR ( Amer) 5 L Est GFR (Non-Af Amer) 4 L Glucose 90 Calcium 8.5 Total Bilirubin 0.5 AST 12 L ALT 23 Alkaline Phosphatase 109 Total Protein 7.2 Albumin 4.0 10/04/17 01:10 Clean Catch Midstream Urine Culture - Final Mixed Urogenital Nuha 10/04/17 10/04/17 10/04/17 02:14 02:14 08:07 Creatine Kinase 52 46 CK-MB (CK-2) 0.92 Troponin I 0.020 10/04/17 08:07 Creatine Kinase CK-MB (CK-2) 0.91 Troponin I 0.018 Impressions: Chest X-Ray 10/03/17 14:39 IMPRESSION: Congestive heart failure. Assessment & Plan - Diagnosis (1) Pulmonary edema Qualifiers: Chronicity: chronic Qualified Code(s): J81.1 - Chronic pulmonary edema Is this a current diagnosis for this admission?: Yes (2) Acute diastolic (congestive) heart failure Is this a current diagnosis for this admission?: Yes (3) ESRD (end stage renal disease) on dialysis Is this a current diagnosis for this admission?: Yes (4) Acute maxillary sinusitis Qualifiers: Recurrence: not specified as recurrent Qualified Code(s): J01.00 - Acute maxillary sinusitis, unspecified Is this a current diagnosis for this admission?: Yes
[2017-10-06] MEDS: CLONAZEPAM 1 MG TABLET PO PRN (17:45)
[2017-10-06] MEDS: AZITHROMYCIN 250 MG TABLET PO SCH (17:46)
[2017-10-06] MEDS: PAROXETINE HCL 20 MG TABLET PO SCH (21:16)
[2017-10-07] MEDS: TIZANIDINE HCL 4 MG TABLET PO PRN (01:27)
[2017-10-07] MEDS: HEPARIN SOD (PORCINE) 5,000 UNIT/ML 1 ML SYRINGE SUBCUT SCH ×3 (06:00→22:09)
[2017-10-07] MEDS: FUROSEMIDE 80 MG TABLET PO SCH ×3 (06:00→22:11)
[2017-10-07] MEDS: OXYCODONE-ACETAMINOPHEN 5-325 MG TABLET PO PRN ×3 (06:00→22:12)
[2017-10-07] MEDS: LABETALOL HCL 200 MG TABLET PO SCH ×2 (06:01→14:06)
[2017-10-07] MEDS: HYDRALAZINE HCL 50 MG TABLET PO SCH ×2 (06:01→14:06)
[2017-10-07 08:19] LABS: BLOOD UREA NITROGEN 45 mg/dL (7-20); CALCIUM 9.1 mg/dL (8.4-10.2); CHLORIDE 91 mmol/L (98-107); GLUCOSE 120 mg/dL (75-110)
[2017-10-07 08:35] LABS: CARBON DIOXIDE 26 mmol/L (22-30); POTASSIUM 5.5 mmol/L (3.6-5.0); SODIUM 137.1 mmol/L (137-145)
[2017-10-07 08:38] LABS: ANION GAP 20 (5-19)
--- NOTE | 2017-10-07 10:21 | RADIOLOGY REPORT (SQ) ---
EXAM DESCRIPTION: VENOUS BILATERAL UPPER COMPLETED DATE/TIME: 10/07/2017 9:46 am REASON FOR STUDY: Check for bilateral blood clot in neck and arms. COMPARISON: None. TECHNIQUE: Dynamic and static calvillo scale and color images acquired of the right and left arm venous system. Selected spectral images acquired with additional compression and augmentation maneuvers. The contralateral subclavian vein and internal jugular vein were also imaged. Images stored on PACS. LIMITATIONS: None. FINDINGS: INTERNAL JUGULAR VEIN: Normal phasicity, compression, augmentation. No visualized echogeni c material on calvillo scale. No defects on color images. Comparison opposite side normal. SUBCLAVIAN VEIN: Normal compression, augmentation. No visualized echogenic material on calvillo scale. No defects on color images. AXILLARY VEIN: Normal compression, augmentation. No visualized echogenic material on calvillo scale. No d efects on color images. BRACHIAL VEIN: Normal compression, augmentation. No visualized echogenic material on calvillo scale. No d efects on color images. BASILIC VEIN: Normal compression, augmentation. No visualized echogenic material on calvillo scale. No de fects on color images. CEPHALIC VEIN: Normal compression, augmentation. No visualized echogenic material on calvillo scale. No d efects on color images. OTHER: There is an AV fistula between the right brachial artery and cephalic vein. CONTRALATERAL SUBCLAVIAN VEIN AND INTERNAL JUGULAR VEIN: Normal phasicity, compression and augmentation. No visualized echogenic material on calvillo scale. No de fects on color images. IMPRESSION: NO EVIDENCE DVT OR SVT RIGHT OR LEFT ARM. TECHNICAL DOCUMENTATION: JOB ID: [id number] [employer]- All Rights Reserved
[2017-10-07] MEDS: OXCARBAZEPINE 150 MG TABLET PO SCH ×2 (11:02→22:11)
[2017-10-07] MEDS: NIFEDIPINE 30 MG TAB.ER.24 PO SCH (11:02)
[2017-10-07] MEDS: INSULIN DETEMIR 100 UNIT/ML 3 ML PEN SUBCUT SCH ×2 (11:02→23:11)
--- NOTE | 2017-10-07 11:22 | PDOC PROGRESS REPORT ---
Subjective Progress Note for:: 10/07/17 Subjective:: This is a late note being done on Ms. Maciel after being seen on hemodialysis yesterday 10-06-17.She was undergoing dialysis without any issues. Vital signs are being monitored. She is feeling a whole lot better as regards to shortness of breath.She denied any history of chest pain, fever chills. However she has a upper respiratory tract infection and has been put on azithromycin. Physical Exam Vital Signs: Temp Pulse Resp BP Pulse Ox 98.7 F 80 20 139/49 H 100 10/07/17 07:10 10/07/17 07:10 10/07/17 07:10 10/07/17 07:10 10/07/17 07:10 Intake & Output 10/06/17 10/07/17 10/08/17 06:59 06:59 06:59 Intake Total 240 246 Output Total 0 4700 Balance 240 -4454 Weight 123.8 kg 118 kg General appearance: PRESENT: no acute distress Respiratory exam: PRESENT: clear to auscultation freddy, symmetrical. ABSENT: crackles Cardiovascular exam: PRESENT: +S1, +S2, systolic murmur GI/Abdominal exam: PRESENT: normal bowel sounds, soft. ABSENT: organomegaly, tenderness Extremities exam: ABSENT: pedal edema Results Laboratory Results: 10/06/17 05:39 10/07/17 07:36 10/07/17 07:36 Sodium 137.1 Potassium 5.5 H Chloride 91 L Carbon Dioxide 26 Anion Gap 20 H BUN 45 H Creatinine 7.70 H Est GFR ( Amer) 7 L Est GFR (Non-Af Amer) 6 L Glucose 120 H Calcium 9.1 10/04/17 10/04/17 10/04/17 02:14 02:14 08:07 Creatine Kinase 52 46 CK-MB (CK-2) 0.92 Troponin I 0.020 10/04/17 08:07 Creatine Kinase CK-MB (CK-2) 0.91 Troponin I 0.018 Impressions: Chest X-Ray 10/03/17 14:39 IMPRESSION: Congestive heart failure. Venous Doppler Study 10/07/17 00:00 IMPRESSION: NO EVIDENCE DVT OR SVT RIGHT OR LEFT ARM. Assessment & Plan - Diagnosis (1) Acute exacerbation of congestive heart failure Qualifiers: Congestive heart failure type: unspecified congestive heart failure type Qualified Code(s): I50.9 - Heart failure, unspecified Plan: Much improved. Advised on proper dietary restrictions and compliance with medications and dialysis. (2) ESRD (end stage renal disease) on dialysis Is this a current diagnosis for this admission?: Yes Plan: Patient is seen on dialysis. Is being supervised to ensure safe and smooth procedure. Vital signs are stable. Plan to remove between 4 and 5 L as tolerated. (5) Anemia due to chronic kidney disease Plan: Will adjust erythropoietin. (6) Hypertension Plan: Advised need for compliance with medications and diet. Continue to monitor and see the response to hemodialysis. (7) Acute pulmonary edema Plan: Resolved.
--- NOTE | 2017-10-07 16:48 | PDOC PROGRESS REPORT ---
Subjective Progress Note for:: 10/07/17 Subjective:: Patient complaint of right facial pain, on inspection of the face there is swelling and puffiness of the right maxilla suggesting sinusitis. CT of the paranasal sinuses showed maxillary sinusitis Physical Exam Vital Signs: Temp Pulse Resp BP Pulse Ox 97.3 F 80 18 145/61 H 82 L 10/07/17 11:46 10/07/17 11:47 10/07/17 11:46 10/07/17 11:46 10/07/17 11:47 Intake & Output 10/06/17 10/07/17 10/08/17 06:59 06:59 06:59 Intake Total 240 246 240 Output Total 0 4700 0 Balance 240 -3804 240 Weight 123.8 kg 118 kg General appearance: PRESENT: no acute distress Head exam: PRESENT: atraumatic, normocephalic Eye exam: PRESENT: PERRLA Ear exam: PRESENT: normal external ear exam Mouth exam: PRESENT: moist, tongue midline Neck exam: PRESENT: full ROM Respiratory exam: PRESENT: clear to auscultation freddy Cardiovascular exam: PRESENT: RRR, +S1, +S2 Pulses: PRESENT: normal dorsalis pedis pul, +2 pedal pulses bilateral Vascular exam: PRESENT: normal capillary refill GI/Abdominal exam: PRESENT: normal bowel sounds, soft Rectal exam: PRESENT: deferred Neurological exam: PRESENT: alert, awake, oriented to person, oriented to place , oriented to time, oriented to situation, CN II-XII grossly intact Psychiatric exam: PRESENT: appropriate affect, normal mood Skin exam: PRESENT: dry, intact, warm Results Laboratory Results: 10/06/17 05:39 10/07/17 07:36 10/07/17 07:36 Sodium 137.1 Potassium 5.5 H Chloride 91 L Carbon Dioxide 26 Anion Gap 20 H BUN 45 H Creatinine 7.70 H Est GFR ( Amer) 7 L Est GFR (Non-Af Amer) 6 L Glucose 120 H Calcium 9.1 10/04/17 10/04/17 10/04/17 02:14 02:14 08:07 Creatine Kinase 52 46 CK-MB (CK-2) 0.92 Troponin I 0.020 10/04/17 08:07 Creatine Kinase CK-MB (CK-2) 0.91 Troponin I 0.018 Impressions: Chest X-Ray 10/03/17 14:39 IMPRESSION: Congestive heart failure. Venous Doppler Study 10/07/17 00:00 IMPRESSION: NO EVIDENCE DVT OR SVT RIGHT OR LEFT ARM. Assessment & Plan - Diagnosis (1) Pulmonary edema Qualifiers: Chronicity: chronic Qualified Code(s): J81.1 - Chronic pulmonary edema Is this a current diagnosis for this admission?: Yes (2) Acute diastolic (congestive) heart failure Is this a current diagnosis for this admission?: Yes (3) ESRD (end stage renal disease) on dialysis Is this a current diagnosis for this admission?: Yes (4) Acute maxillary sinusitis Qualifiers: Recurrence: not specified as recurrent Qualified Code(s): J01.00 - Acute maxillary sinusitis, unspecified Is this a current diagnosis for this admission?: Yes - Plan Summary Plan Summary: Continue present treatment
[2017-10-07] MEDS: AZITHROMYCIN 250 MG TABLET PO SCH (18:09)
--- NOTE | 2017-10-07 18:11 | RADIOLOGY REPORT (SQ) ---
EXAM DESCRIPTION: CT FACIAL AREA WITHOUT COMPLETED DATE/TIME: 10/07/2017 5:33 pm REASON FOR STUDY: facial pain /swelling of the RT Maxilla COMPARISON: None. TECHNIQUE: Noncontrasted images through the facial bones and orbits windowed for bone and soft tissu e. Additional coronal and sagittal reconstructed images reviewed. All images stored on PACS. All CT scanners at this facility use dose modulation, iterative reconstruction, and/or weight based d osing when appropriate to reduce radiation dose to as low as reasonably achievable (ALARA). [facility]: Dose Right [facility]: CareDose [facility]: Dose Right [facility]: Teradose 4D [facility]: Smart OfficeDrop RADIATION DOSE: Up-to-date CT equipment and radiation dose reduction techniques were employed. CTDIv ol: 30.4 mGy. DLP: 640 mGy-cm. mGy. LIMITATIONS: None. FINDINGS: FACIAL BONES: No fracture or bone lesion. ORBITS: Intact. No fracture. Symmetric intact globes and retroorbital soft tissues. PARANASAL SINUSES: Mucoperiosteal thickening is seen in the maxillary sinuses and in ethmoid air cell s. No nasal polyps. Maxillary sinus outlets are patent. SOFT TISSUES: No mass or edema. INFERIOR BRAIN: Limited view. No acute findings. OTHER: No other significant finding. IMPRESSION: Maxillary and ethmoid sinus disease. TECHNICAL DOCUMENTATION: JOB ID: [id number] Quality ID # [id number]: Final reports with documentation of one or more dose reduction techniques (e.g., Au tomated exposure control, adjustment of the mA and/or kV according to patient size, use of iterative reconstruction technique) 2010 [employer] All Rights Reserved
[2017-10-07] MEDS: PAROXETINE HCL 20 MG TABLET PO SCH (22:10)
[2017-10-08] MEDS: NIFEDIPINE 30 MG TAB.ER.24 PO SCH ×3 (00:35→21:29)
[2017-10-08] MEDS: LABETALOL HCL 200 MG TABLET PO SCH ×4 (00:35→21:29)
[2017-10-08] MEDS: HYDRALAZINE HCL 50 MG TABLET PO SCH ×4 (00:35→21:29)
[2017-10-08] MEDS ORDERED: HEPARIN SOD (PORCINE) 1,000 UNIT/ML 10 ML VIAL IV PRN (05:00)
[2017-10-08] MEDS ORDERED: EPOETIN ALFA INJ 20000 UNIT/1 ML VIAL (RENAL) IV PRN (05:00)
[2017-10-08] MEDS: FUROSEMIDE 80 MG TABLET PO SCH ×3 (05:31→21:30)
[2017-10-08] MEDS: HEPARIN SOD (PORCINE) 5,000 UNIT/ML 1 ML SYRINGE SUBCUT SCH ×3 (05:35→21:34)
[2017-10-08] MEDS: OXYCODONE-ACETAMINOPHEN 5-325 MG TABLET PO PRN ×3 (05:45→20:05)
[2017-10-08] MEDS ORDERED: EPOETIN ALFA 10,000 UNIT in SYRINGE, DISPOSABLE, 1 EACH IV PRN (10:42)
--- NOTE | 2017-10-08 11:19 | PDOC PROGRESS REPORT ---
Subjective Progress Note for:: 10/08/17 Subjective:: The patient seen on dialysis today. She is undergoing dialysis without any issues.She still complains of headache and facial pressure. She has been diagnosed to have maxillary/ethmoidal sinusitis on facial CT scan. Physical Exam Vital Signs: Temp Pulse Resp BP Pulse Ox 98.6 F 80 20 135/66 H 91 L 10/08/17 03:51 10/08/17 07:00 10/08/17 03:51 10/08/17 03:51 10/08/17 03:51 Intake & Output 10/07/17 10/08/17 10/09/17 06:59 06:59 06:59 Intake Total 246 450 Output Total 4700 0 Balance -4454 450 Weight 118 kg 119.4 kg General appearance: PRESENT: no acute distress Respiratory exam: PRESENT: clear to auscultation freddy, symmetrical, unlabored. ABSENT: crackles Cardiovascular exam: PRESENT: +S1, +S2, systolic murmur GI/Abdominal exam: PRESENT: normal bowel sounds, soft. ABSENT: organomegaly, tenderness Extremities exam: ABSENT: pedal edema Neurological exam: PRESENT: alert, awake, oriented to person, oriented to place Results Laboratory Results: 10/06/17 05:39 10/07/17 07:36 10/04/17 10/04/17 10/04/17 02:14 02:14 08:07 Creatine Kinase 52 46 CK-MB (CK-2) 0.92 Troponin I 0.020 10/04/17 08:07 Creatine Kinase CK-MB (CK-2) 0.91 Troponin I 0.018 Impressions: Chest X-Ray 10/03/17 14:39 IMPRESSION: Congestive heart failure. Facial Bones CT 10/07/17 00:00 IMPRESSION: Maxillary and ethmoid sinus disease. Venous Doppler Study 10/07/17 00:00 IMPRESSION: NO EVIDENCE DVT OR SVT RIGHT OR LEFT ARM. Assessment & Plan - Diagnosis (1) Acute exacerbation of congestive heart failure Qualifiers: Congestive heart failure type: unspecified congestive heart failure type Qualified Code(s): I50.9 - Heart failure, unspecified Plan: Resolved (2) ESRD (end stage renal disease) on dialysis Is this a current diagnosis for this admission?: Yes Plan: Patient is seen on dialysis. Is being supervised to ensure safe and smooth procedure. Vital signs are stable. Plan to remove between 2 and 3 L as tolerated. (3) Insulin dependent diabetes mellitus Plan: Advised need for tight diabetic control starting with diet. (5) Anemia due to chronic kidney disease Plan: Will adjust erythropoietin. (6) Hypertension Plan: Advised need for compliance with medications and diet. Continue to monitor and see the response to hemodialysis. (9) Acute maxillary sinusitis Qualifiers: Recurrence: not specified as recurrent Qualified Code(s): J01.00 - Acute maxillary sinusitis, unspecified Is this a current diagnosis for this admission?: Yes Plan: As per Dr. Singleton. On antibiotics.
[2017-10-08] MEDS: AMOXICILLIN TRIHYDRATE 500 MG CAPSULE PO SCH ×2 (13:48→21:29)
[2017-10-08] MEDS: OXCARBAZEPINE 150 MG TABLET PO SCH ×2 (13:48→21:28)
[2017-10-08] MEDS: INSULIN DETEMIR 100 UNIT/ML 3 ML PEN SUBCUT SCH ×2 (13:52→23:13)
--- NOTE | 2017-10-08 15:23 | PDOC PROGRESS REPORT ---
Subjective Progress Note for:: 10/08/17 Subjective:: She was dialyzed today, she continues to complain of facial pain, ear pain Physical Exam Vital Signs: Temp Pulse Resp BP Pulse Ox 98.6 F 80 20 135/66 H 96 10/08/17 03:51 10/08/17 07:00 10/08/17 03:51 10/08/17 03:51 10/08/17 11:58 Intake & Output 10/07/17 10/08/17 10/09/17 06:59 06:59 06:59 Intake Total 246 450 Output Total 4700 0 Balance -4454 450 Weight 118 kg 119.4 kg General appearance: PRESENT: no acute distress Head exam: PRESENT: atraumatic, normocephalic Eye exam: PRESENT: conjunctiva pink, EOMI, PERRLA Mouth exam: PRESENT: moist, tongue midline Neck exam: PRESENT: full ROM Respiratory exam: PRESENT: clear to auscultation freddy Cardiovascular exam: PRESENT: RRR, +S1, +S2 Pulses: PRESENT: normal dorsalis pedis pul, +2 pedal pulses bilateral Vascular exam: PRESENT: normal capillary refill GI/Abdominal exam: PRESENT: normal bowel sounds, soft Rectal exam: PRESENT: deferred Neurological exam: PRESENT: alert, awake, oriented to person, oriented to place , oriented to time, oriented to situation, CN II-XII grossly intact. ABSENT: motor sensory deficit Psychiatric exam: PRESENT: appropriate affect, normal mood Skin exam: PRESENT: dry, intact, warm. ABSENT: cyanosis, rash Results Laboratory Results: 10/06/17 05:39 10/07/17 07:36 10/04/17 10/04/17 10/04/17 02:14 02:14 08:07 Creatine Kinase 52 46 CK-MB (CK-2) 0.92 Troponin I 0.020 10/04/17 08:07 Creatine Kinase CK-MB (CK-2) 0.91 Troponin I 0.018 Impressions: Chest X-Ray 10/03/17 14:39 IMPRESSION: Congestive heart failure. Facial Bones CT 10/07/17 00:00 IMPRESSION: Maxillary and ethmoid sinus disease. Venous Doppler Study 10/07/17 00:00 IMPRESSION: NO EVIDENCE DVT OR SVT RIGHT OR LEFT ARM. Assessment & Plan - Diagnosis (1) Pulmonary edema Qualifiers: Chronicity: chronic Qualified Code(s): J81.1 - Chronic pulmonary edema Is this a current diagnosis for this admission?: Yes (2) Acute diastolic (congestive) heart failure Is this a current diagnosis for this admission?: Yes (3) ESRD (end stage renal disease) on dialysis Is this a current diagnosis for this admission?: Yes (4) Acute maxillary sinusitis Qualifiers: Recurrence: not specified as recurrent Qualified Code(s): J01.00 - Acute maxillary sinusitis, unspecified Is this a current diagnosis for this admission?: Yes Plan: Start amoxicillin
[2017-10-08] MEDS: AZITHROMYCIN 250 MG TABLET PO SCH (18:26)
[2017-10-08] MEDS: INSULIN REG, HUMAN 100 UNIT/ML 3 ML VIAL (PYX) SUBCUT PRN (18:26)
[2017-10-08] MEDS: PAROXETINE HCL 20 MG TABLET PO SCH (21:30)
[2017-10-09] MEDS: OXYCODONE-ACETAMINOPHEN 5-325 MG TABLET PO PRN ×2 (02:34→10:10)
[2017-10-09] MEDS: HYDRALAZINE HCL 50 MG TABLET PO SCH ×3 (05:17→22:14)
[2017-10-09] MEDS: FUROSEMIDE 80 MG TABLET PO SCH ×3 (05:18→22:15)
[2017-10-09] MEDS: AMOXICILLIN TRIHYDRATE 500 MG CAPSULE PO SCH ×3 (05:18→22:16)
[2017-10-09] MEDS: LABETALOL HCL 200 MG TABLET PO SCH ×3 (05:18→22:16)
[2017-10-09] MEDS: HEPARIN SOD (PORCINE) 5,000 UNIT/ML 1 ML SYRINGE SUBCUT SCH ×3 (05:19→22:18)
[2017-10-09] MEDS: NIFEDIPINE 30 MG TAB.ER.24 PO SCH ×2 (10:08→22:15)
[2017-10-09] MEDS: INSULIN DETEMIR 100 UNIT/ML 3 ML PEN SUBCUT SCH ×2 (10:08→22:17)
[2017-10-09] MEDS: OXCARBAZEPINE 150 MG TABLET PO SCH ×2 (10:08→22:16)
[2017-10-09] MEDS: INSULIN REG, HUMAN 100 UNIT/ML 3 ML VIAL (PYX) SUBCUT PRN (13:07)
--- NOTE | 2017-10-09 16:00 | PDOC PROGRESS REPORT ---
Subjective Progress Note for:: 10/09/17 Subjective:: Patient reported improvement in facial swelling but continue pain. She denied any fever or chills. No chest pain or difficulty with breathing. Remain on supplemental oxygen via nasal cannula. She denied abdominal pain, nausea, or vomiting. Physical Exam Vital Signs: Temp Pulse Resp BP Pulse Ox 98.5 F 76 18 109/55 L 97 10/09/17 07:55 10/09/17 07:55 10/09/17 07:55 10/09/17 07:55 10/09/17 07:55 Intake & Output 10/08/17 10/09/17 10/10/17 06:59 06:59 06:59 Intake Total 450 527 Output Total 0 2700 Balance 450 -2173 Weight 119.4 kg 115.4 kg General appearance: PRESENT: no acute distress, cooperative, obese Head exam: PRESENT: atraumatic, normocephalic Eye exam: PRESENT: conjunctiva pink, EOMI, PERRLA. ABSENT: scleral icterus Mouth exam: PRESENT: moist Respiratory exam: PRESENT: clear to auscultation freddy Cardiovascular exam: PRESENT: RRR. ABSENT: diastolic murmur, rubs, systolic murmur Vascular exam: PRESENT: normal capillary refill. ABSENT: pallor GI/Abdominal exam: PRESENT: normal bowel sounds, soft. ABSENT: distended, guarding, mass, organolmegaly, rebound, tenderness Extremities exam: ABSENT: pedal edema Musculoskeletal exam: PRESENT: normal inspection Neurological exam: PRESENT: alert, awake, oriented to person, oriented to place , oriented to time, oriented to situation, CN II-XII grossly intact. ABSENT: motor sensory deficit Psychiatric exam: PRESENT: appropriate affect, normal mood. ABSENT: homicidal ideation, suicidal ideation Skin exam: PRESENT: dry, intact, warm. ABSENT: cyanosis, rash Results Laboratory Results: 10/06/17 05:39 10/07/17 07:36 10/04/17 10/04/17 10/04/17 02:14 02:14 08:07 Creatine Kinase 52 46 CK-MB (CK-2) 0.92 Troponin I 0.020 10/04/17 08:07 Creatine Kinase CK-MB (CK-2) 0.91 Troponin I 0.018 Impressions: Chest X-Ray 10/03/17 14:39 IMPRESSION: Congestive heart failure. Facial Bones CT 10/07/17 00:00 IMPRESSION: Maxillary and ethmoid sinus disease. Venous Doppler Study 10/07/17 00:00 IMPRESSION: NO EVIDENCE DVT OR SVT RIGHT OR LEFT ARM. Assessment & Plan - Diagnosis (1) Acute maxillary sinusitis Qualifiers: Recurrence: not specified as recurrent Qualified Code(s): J01.00 - Acute maxillary sinusitis, unspecified Is this a current diagnosis for this admission?: Yes Plan: Continue Amoxicillin and Azithromycin therapy. (2) ESRD (end stage renal disease) on dialysis Is this a current diagnosis for this admission?: Yes Plan: See covering attending physician orders. She will be schedule for hemodialysis on Wednesday. (3) Chronic diastolic (congestive) heart failure Is this a current diagnosis for this admission?: Yes Plan: See covering attending physician orders. (4) Diabetes mellitus type 1 with complications Is this a current diagnosis for this admission?: Yes Plan: See covering attending physician orders. (5) Hypertension Qualifiers: Hypertension type: essential hypertension Qualified Code(s): I10 - Essential (primary) hypertension Is this a current diagnosis for this admission?: Yes Plan: See covering attending physician orders. - Time Time Spent with patient: 25-34 minutes Medications reviewed and adjusted accordingly: Yes Anticipated discharge: Home Within: Other - Inpatient Certification Based on my medical assessment, after consideration of the patient's comorbidities, presenting symptoms, or acuity I expect that the services needed warrant INPATIENT care.: Yes I certify that my determination is in accordance with my understanding of Medicare's requirements for reasonable and necessary INPATIENT services [42 CFR 412.3e].: Yes Medical Necessity: Need Close Monitoring Due to Risk of Patient Decompensation, Need For Continuous Telemetry Monitoring, Risk of Complication if Not Cared For in Hospital Post 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
[2017-10-09] MEDS: AZITHROMYCIN 250 MG TABLET PO SCH (17:22)
[2017-10-09] MEDS: PAROXETINE HCL 20 MG TABLET PO SCH (22:15)
[2017-10-10] MEDS: FUROSEMIDE 80 MG TABLET PO SCH ×3 (05:30→21:19)
[2017-10-10] MEDS: HYDRALAZINE HCL 50 MG TABLET PO SCH ×3 (05:31→21:19)
[2017-10-10] MEDS: LABETALOL HCL 200 MG TABLET PO SCH ×3 (05:31→21:19)
[2017-10-10] MEDS: AMOXICILLIN TRIHYDRATE 500 MG CAPSULE PO SCH ×3 (05:31→21:19)
[2017-10-10] MEDS: HEPARIN SOD (PORCINE) 5,000 UNIT/ML 1 ML SYRINGE SUBCUT SCH ×3 (05:32→21:17)
[2017-10-10] MEDS: OXCARBAZEPINE 150 MG TABLET PO SCH ×2 (10:08→21:19)
[2017-10-10] MEDS: NIFEDIPINE 30 MG TAB.ER.24 PO SCH ×2 (10:08→21:18)
[2017-10-10] MEDS: INSULIN DETEMIR 100 UNIT/ML 3 ML PEN SUBCUT SCH ×2 (10:12→21:48)
--- NOTE | 2017-10-10 13:21 | PDOC PROGRESS REPORT ---
Subjective Progress Note for:: 10/10/17 Subjective:: She denied any chest pain or difficulty with breathing. Facial pain improving. No fever or chills. No abdominal pain, nausea, or vomiting. Physical Exam Vital Signs: Temp Pulse Resp BP Pulse Ox 97.8 F 76 16 144/69 H 100 10/10/17 10:55 10/10/17 10:55 10/10/17 10:55 10/10/17 10:55 10/10/17 10:55 Intake & Output 10/09/17 10/10/17 10/11/17 06:59 06:59 06:59 Intake Total 527 1022 Output Total 2700 0 Balance -2173 1022 Weight 115.4 kg 115.9 kg Physical Exam: General appearance: PRESENT: no acute distress, cooperative, obese Head exam: PRESENT: atraumatic, normocephalic Eye exam: PRESENT: conjunctiva pink, EOMI, PERRLA. ABSENT: scleral icterus Mouth exam: PRESENT: moist Respiratory exam: PRESENT: clear to auscultation freddy. Cardiovascular exam: PRESENT: RRR. ABSENT: diastolic murmur, rubs, systolic murmur Vascular exam: PRESENT: normal capillary refill. ABSENT: pallor GI/Abdominal exam: PRESENT: normal bowel sounds, soft. ABSENT: distended, guarding, mass, organomegaly, rebound, tenderness Extremities exam: ABSENT: pedal edema Musculoskeletal exam: PRESENT: normal inspection Neurological exam: PRESENT: alert, awake, oriented to person, oriented to place , oriented to time, oriented to situation, CN II-XII grossly intact. ABSENT: motor sensory deficit Psychiatric exam: PRESENT: appropriate affect, normal mood. ABSENT: homicidal ideation, suicidal ideation Skin exam: PRESENT: dry, intact, warm. ABSENT: cyanosis, rash Results Laboratory Results: 10/06/17 05:39 10/07/17 07:36 10/04/17 10/04/17 10/04/17 02:14 02:14 08:07 Creatine Kinase 52 46 CK-MB (CK-2) 0.92 Troponin I 0.020 10/04/17 08:07 Creatine Kinase CK-MB (CK-2) 0.91 Troponin I 0.018 Impressions: Chest X-Ray 10/03/17 14:39 IMPRESSION: Congestive heart failure. Facial Bones CT 10/07/17 00:00 IMPRESSION: Maxillary and ethmoid sinus disease. Venous Doppler Study 10/07/17 00:00 IMPRESSION: NO EVIDENCE DVT OR SVT RIGHT OR LEFT ARM. Assessment & Plan - Diagnosis (1) Acute maxillary sinusitis Qualifiers: Recurrence: not specified as recurrent Qualified Code(s): J01.00 - Acute maxillary sinusitis, unspecified Is this a current diagnosis for this admission?: Yes (2) ESRD (end stage renal disease) on dialysis Is this a current diagnosis for this admission?: Yes (3) Chronic diastolic (congestive) heart failure Is this a current diagnosis for this admission?: Yes (4) Diabetes mellitus type 1 with complications Is this a current diagnosis for this admission?: Yes (5) Hypertension Qualifiers: Hypertension type: essential hypertension Qualified Code(s): I10 - Essential (primary) hypertension Is this a current diagnosis for this admission?: Yes - Time Time Spent with patient: 25-34 minutes Medications reviewed and adjusted accordingly: Yes Anticipated discharge: Home - Inpatient Certification Based on my medical assessment, after consideration of the patient's comorbidities, presenting symptoms, or acuity I expect that the services needed warrant INPATIENT care.: Yes I certify that my determination is in accordance with my understanding of Medicare's requirements for reasonable and necessary INPATIENT services [42 CFR 412.3e].: Yes Medical Necessity: Need Close Monitoring Due to Risk of Patient Decompensation, Need For Continuous Telemetry Monitoring, Risk of Complication if Not Cared For in Hospital Post Hospital Care: D/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
[2017-10-10] MEDS: AZITHROMYCIN 250 MG TABLET PO SCH (17:30)
[2017-10-10] MEDS: PAROXETINE HCL 20 MG TABLET PO SCH (21:18)
[2017-10-11] MEDS: OXYCODONE-ACETAMINOPHEN 5-325 MG TABLET PO PRN ×3 (03:10→20:09)
[2017-10-11 04:49] LABS: HEMATOCRIT 26.6 % (36.0-47.0); HEMOGLOBIN 8.8 g/dL (12.0-15.5); HGB HCT DIFFERENCE -0.2; MEAN CORPUSCULAR HEMOGLOBIN 29.6 pg (27.0-33.4); MEAN CORPUSCULAR HGB CONC 33.1 g/dL (32.0-36.0); MEAN CORPUSCULAR VOLUME 89 fl (80-97); RED BLOOD COUNT 2.97 10^6/uL (3.72-5.28); RED CELL DISTRIBUTION WIDTH 16.4 % (11.5-14.0); WHITE BLOOD COUNT 7.6 10^3/uL (4.0-10.5)
[2017-10-11] MEDS: FUROSEMIDE 80 MG TABLET PO SCH ×3 (05:02→23:00)
[2017-10-11] MEDS: HYDRALAZINE HCL 50 MG TABLET PO SCH ×3 (05:02→22:59)
[2017-10-11] MEDS: LABETALOL HCL 200 MG TABLET PO SCH ×3 (05:02→22:59)
[2017-10-11] MEDS: HEPARIN SOD (PORCINE) 5,000 UNIT/ML 1 ML SYRINGE SUBCUT SCH ×3 (05:02→22:59)
[2017-10-11] MEDS: AMOXICILLIN TRIHYDRATE 500 MG CAPSULE PO SCH ×3 (05:02→22:59)
[2017-10-11 05:08] LABS: BLOOD UREA NITROGEN 59 mg/dL (7-20); CHLORIDE 94 mmol/L (98-107); CREATININE RESULT 11.48 mg/dL (0.52-1.25); GLUCOSE 75 mg/dL (75-110)
[2017-10-11 05:17] LABS: CARBON DIOXIDE 22 mmol/L (22-30)
[2017-10-11 05:33] LABS: ANION GAP 24 (5-19)
[2017-10-11 05:34] LABS: POTASSIUM 6.1 mmol/L (3.6-5.0)
[2017-10-11] MEDS ORDERED: HEPARIN SOD (PORCINE) 1,000 UNIT/ML 10 ML VIAL IV PRN (07:37)
[2017-10-11] MEDS ORDERED: EPOETIN ALFA INJ 20000 UNIT/1 ML VIAL (RENAL) IV PRN (07:37)
[2017-10-11] MEDS ORDERED: EPOETIN ALFA 10,000 UNIT in SYRINGE, DISPOSABLE, 1 EACH IV PRN (08:14)
[2017-10-11] MEDS ORDERED: DIPHENHYDRAMINE HCL 25 MG CAPSULE PO ONE (10:30)
[2017-10-11] MEDS: INSULIN DETEMIR 100 UNIT/ML 3 ML PEN SUBCUT SCH (13:21)
[2017-10-11] MEDS: OXCARBAZEPINE 150 MG TABLET PO SCH ×2 (13:23→22:59)
[2017-10-11] MEDS: NIFEDIPINE 30 MG TAB.ER.24 PO SCH ×2 (13:24→23:00)
--- NOTE | 2017-10-11 16:45 | PDOC PROGRESS REPORT ---
Subjective Progress Note for:: 10/11/17 Subjective:: The patient seen on dialysis today. She is undergoing dialysis without any issues.She still complains of headache and facial pressure but is better. Physical Exam Vital Signs: Temp Pulse Resp BP Pulse Ox 98.3 F 82 21 H 155/61 H 100 10/11/17 13:31 10/11/17 14:00 10/11/17 13:31 10/11/17 13:31 10/11/17 13:31 Intake & Output 10/10/17 10/11/17 10/12/17 06:59 06:59 06:59 Intake Total 1022 1282 118 Output Total 0 0 Balance 1022 1282 118 Weight 115.9 kg 116.8 kg General appearance: PRESENT: no acute distress Respiratory exam: PRESENT: clear to auscultation freddy, unlabored. ABSENT: crackles Cardiovascular exam: PRESENT: +S1, +S2, systolic murmur GI/Abdominal exam: PRESENT: normal bowel sounds, soft. ABSENT: organomegaly, tenderness Extremities exam: PRESENT: pedal edema Results Laboratory Results: 10/11/17 04:25 10/11/17 04:25 10/11/17 10/11/17 04:25 04:25 WBC 7.6 RBC 2.97 L Hgb 8.8 L Hct 26.6 L MCV 89 MCH 29.6 MCHC 33.1 RDW 16.4 H Plt Count 406 Sodium 140.0 Potassium 6.1 H* Chloride 94 L Carbon Dioxide 22 Anion Gap 24 H BUN 59 H Creatinine 11.48 H Est GFR ( Amer) 5 L Est GFR (Non-Af Amer) 4 L Glucose 75 Calcium 9.0 10/04/17 10/04/17 10/04/17 02:14 02:14 08:07 Creatine Kinase 52 46 CK-MB (CK-2) 0.92 Troponin I 0.020 10/04/17 08:07 Creatine Kinase CK-MB (CK-2) 0.91 Troponin I 0.018 Impressions: Chest X-Ray 10/03/17 14:39 IMPRESSION: Congestive heart failure. Facial Bones CT 10/07/17 00:00 IMPRESSION: Maxillary and ethmoid sinus disease. Venous Doppler Study 10/07/17 00:00 IMPRESSION: NO EVIDENCE DVT OR SVT RIGHT OR LEFT ARM. Assessment & Plan - Diagnosis (1) Acute exacerbation of congestive heart failure Qualifiers: Congestive heart failure type: unspecified congestive heart failure type Qualified Code(s): I50.9 - Heart failure, unspecified Plan: Resolved (2) ESRD (end stage renal disease) on dialysis Is this a current diagnosis for this admission?: Yes Plan: Patient is seen on dialysis. Is being supervised to ensure safe and smooth procedure. Vital signs are stable. Plan to remove between 2 and 3 L as tolerated. (3) Insulin dependent diabetes mellitus Plan: Advised need for tight diabetic control starting with diet. (5) Anemia due to chronic kidney disease Plan: Will adjust erythropoietin. (6) Hypertension Plan: Advised need for compliance with medications and diet. Continue to monitor and see the response to hemodialysis. (9) Acute maxillary sinusitis Qualifiers: Recurrence: not specified as recurrent Qualified Code(s): J01.00 - Acute maxillary sinusitis, unspecified Is this a current diagnosis for this admission?: Yes Plan: As per Dr. Singleton. On antibiotics.
[2017-10-11] MEDS: AZITHROMYCIN 250 MG TABLET PO SCH (18:05)
[2017-10-11] MEDS: INSULIN REG, HUMAN 100 UNIT/ML 3 ML VIAL (PYX) SUBCUT PRN (18:27)
--- NOTE | 2017-10-11 20:34 | PDOC DISCHARGE SUMMARY ---
General - Admit/Disc Date/PCP Admission Date/Primary Care Provider: 10/03/17 19:43 Discharge Date: 10/12/17 - Discharge Diagnosis (1) Pulmonary edema Is this a current diagnosis for this admission?: Yes (2) Acute diastolic (congestive) heart failure Is this a current diagnosis for this admission?: Yes (3) ESRD (end stage renal disease) on dialysis Is this a current diagnosis for this admission?: Yes (4) Acute maxillary sinusitis Is this a current diagnosis for this admission?: Yes - Additional Information Discharge Diet: Cardiac, Diabetic Discharge Activity: Activity As Tolerated, Balance Activity w/Rest, Weigh Daily Home Medications: Albuterol Sulfate [Proair HFA Inhalation Aerosol 8.5 gm MDI] 2 puff IH Q4HP PRN 10/04/17 Buprenorphine [Butrans] 20 mcg TOP Q7D 10/04/17 Butalbital/Acetaminophen [Butalbital-Acetaminophn 50-325] 1 tab PO Q4HP PRN Clonidine HCl [Catapres 0.1 mg Tablet] 0.1 mg PO TIDHS PRN 10/04/17 Desipramine HCl [Norpramin 25 mg Tablet] 25 mg PO DAILY 10/04/17 Furosemide [Lasix 80 mg Tablet] 80 mg PO TID 10/04/17 Gabapentin Enacarbil [Horizant] 300 mg PO QPM 10/04/17 Hydralazine HCl [Apresoline 50 mg Tablet] 100 mg PO Q8 10/04/17 Hydroxyzine HCl [Atarax 10 mg Tablet] 10 mg PO Q8HP PRN 10/04/17 Insulin Detemir [Levemir] 30 units SQ BID 10/04/17 Insulin Lispro [Humalog Kwikpen U-100] 0 unit SQ .SLIDING SCALE 10/04/17 Labetalol HCl [Normodyne 200 mg Tablet] 200 mg PO Q8 10/04/17 Levetiracetam [Keppra 500 mg Tablet] 500 mg PO DAILY 10/04/17 Lisinopril [Prinivil 40 mg Tablet] 40 mg PO Q12 10/04/17 Meclizine HCl [Antivert 25 mg Tablet] 25 mg PO Q8HP PRN 10/04/17 Methocarbamol [Robaxin 750 mg Tablet] 750 mg PO Q12HP PRN 10/04/17 Mometasone Furoate [Nasonex] 2 spray NASL DAILY 10/04/17 Montelukast Sodium [Singulair 10 mg Tablet] 10 mg PO QPM 10/04/17 Nifedipine [Procardia XL 60 mg Tablet] 60 mg PO Q12 10/04/17 Omeprazole 40 mg PO DAILY 10/04/17 Oxycodone HCl/Acetaminophen [Oxycodon-Acetaminophen 7.5-325] 1 tab PO Q12HP PRN 10/04/17 Paroxetine HCl [Paxil] 40 mg PO DAILY 10/04/17 Amoxicillin Trihydrate [Amoxil 500 mg Capsule] 500 mg PO Q8 #15 capsule Chlorpheniramine Maleate [Chlor-Trimeton 4 mg Tablet] 4 mg PO Q6HP PRN #60 tablet 10/11/17 History of Present Illness History of Present Illness: Patient 42-year-old female with end-stage renal disease on maintenance hemodialysis, she came to emergency room yesterday for evaluation of respiratory symptoms, cough, shortness of breath, sore throat. A chest x-ray was done, it showed congestive heart failure. Patient is noncompliant with her dialysis treatment, she has had many hospital admission for management of pulmonary edema. Usually after dialysis symptoms resolved suggesting that it is volume overload, she has history of chronic diastolic dysfunction of left ventricle. She was seen in emergency room on Wednesday night when she presented with lumbar radicular syndrome, she was given Decadron injection in the emergency room and discharged home she returned emergency room on Wednesday for evaluation of respiratory symptoms, cough, shortness of breath Hospital Course Hospital Course: Patient was admitted for the management of pulmonary edema this was treated with hemodialysis. She also have end-stage renal disease on maintenance hemodialysis. She had acute maxillary sinusitis with facial pain and headache. This was treated with amoxicillin. She was seen by nephrology on consultation Physical Exam Vital Signs: Temp Pulse Resp BP Pulse Ox 98.2 F 81 20 160/71 H 99 10/11/17 19:39 10/11/17 19:39 10/11/17 19:39 10/11/17 19:39 10/11/17 19:39 Intake & Output 10/10/17 10/11/17 10/12/17 06:59 06:59 06:59 Intake Total 1022 1282 588 Output Total 0 0 3300 Balance 1022 1282 -2712 Weight 115.9 kg 116.8 kg General appearance: PRESENT: no acute distress Head exam: PRESENT: atraumatic, normocephalic Eye exam: PRESENT: PERRLA. ABSENT: scleral icterus Ear exam: PRESENT: normal external ear exam Mouth exam: PRESENT: moist, tongue midline Neck exam: PRESENT: full ROM Respiratory exam: PRESENT: clear to auscultation freddy Cardiovascular exam: PRESENT: RRR, +S1, +S2 Vascular exam: PRESENT: normal capillary refill GI/Abdominal exam: PRESENT: normal bowel sounds, soft Rectal exam: PRESENT: deferred Neurological exam: PRESENT: alert, CN II-XII grossly intact. ABSENT: motor sensory deficit Psychiatric exam: PRESENT: appropriate affect, normal mood Skin exam: PRESENT: dry, intact, warm. ABSENT: cyanosis, rash Results Laboratory Results: 10/11/17 04:25 10/11/17 04:25 10/11/17 10/11/17 04:25 04:25 WBC 7.6 RBC 2.97 L Hgb 8.8 L Hct 26.6 L MCV 89 MCH 29.6 MCHC 33.1 RDW 16.4 H Plt Count 406 Sodium 140.0 Potassium 6.1 H* Chloride 94 L Carbon Dioxide 22 Anion Gap 24 H BUN 59 H Creatinine 11.48 H Est GFR ( Amer) 5 L Est GFR (Non-Af Amer) 4 L Glucose 75 Calcium 9.0 10/04/17 10/04/17 10/04/17 02:14 02:14 08:07 Creatine Kinase 52 46 CK-MB (CK-2) 0.92 Troponin I 0.020 10/04/17 08:07 Creatine Kinase CK-MB (CK-2) 0.91 Troponin I 0.018 Impressions: Chest X-Ray 10/03/17 14:39 IMPRESSION: Congestive heart failure. Facial Bones CT 10/07/17 00:00 IMPRESSION: Maxillary and ethmoid sinus disease. Venous Doppler Study 10/07/17 00:00 IMPRESSION: NO EVIDENCE DVT OR SVT RIGHT OR LEFT ARM.
[2017-10-11] MEDS: PAROXETINE HCL 20 MG TABLET PO SCH (22:59)
[2017-10-12] MEDS: INSULIN DETEMIR 100 UNIT/ML 3 ML PEN SUBCUT SCH (01:48)
[2017-10-12] MEDS: OXYCODONE-ACETAMINOPHEN 5-325 MG TABLET PO PRN (05:39)
[2017-10-12] MEDS: HEPARIN SOD (PORCINE) 5,000 UNIT/ML 1 ML SYRINGE SUBCUT SCH (05:40)
[2017-10-12] MEDS: HYDRALAZINE HCL 50 MG TABLET PO SCH (05:40)
[2017-10-12] MEDS: LABETALOL HCL 200 MG TABLET PO SCH (05:41)
[2017-10-12] MEDS: FUROSEMIDE 80 MG TABLET PO SCH (05:41)
[2017-10-12] MEDS: AMOXICILLIN TRIHYDRATE 500 MG CAPSULE PO SCH (05:42)
[2017-10-12 08:39] VITALS: BP 165/77
== END 2017-10-12 09:49 | disposition home or self-care (01) | DRG 291 ==
LOC: ER 14:17 → UNDOADMIN 18:37 → EH 18:37 → 3S 19:50 → EH 19:50
PROVIDERS: ADMIT Internal Medicine; ATTEND Internal Medicine
PROC: 5A1D70Z Performance of Urinary Filtration, Intermittent, Less than 6 Hours Per Day (ICD-10-PCS; principal; 2017-10-04)
DX: I13.2 Hypertensive heart and chronic kidney disease with heart failure and with stage 5 chronic kidney disease, or end stage renal disease (principal); I50.33 Acute on chronic diastolic (congestive) heart failure; N18.6 End stage renal disease; Z68.41 Body mass index [BMI] 40.0-44.9, adult; J01.00 Acute maxillary sinusitis, unspecified; E10.21 Type 1 diabetes mellitus with diabetic nephropathy; E10.22 Type 1 diabetes mellitus with diabetic chronic kidney disease; D63.1 Anemia in chronic kidney disease; E66.01 Morbid (severe) obesity due to excess calories; L40.9 Psoriasis, unspecified; J06.9 Acute upper respiratory infection, unspecified; G40.909 Epilepsy, unspecified, not intractable, without status epilepticus; F32.9 Major depressive disorder, single episode, unspecified; Z99.2 Dependence on renal dialysis; Z88.6 Allergy status to analgesic agent; Z88.1 Allergy status to other antibiotic agents; Z88.3 Allergy status to other anti-infective agents; Z88.8 Allergy status to other drugs, medicaments and biological substances; Z79.4 Long term (current) use of insulin; Z79.899 Other long term (current) drug therapy; Z90.49 Acquired absence of other specified parts of digestive tract; Z91.15 Patient's noncompliance with renal dialysis
CPT/HCPCS: 36415; 70486; 71010; 80048; 80053; 80076; 80307; 81001; 82140; 82150; 82550; 82553; 82803; 82962; 83036; 83605; 83690; 83735; 83880; 84100; 84439; 84443; 84484; 85025; 85027; 85610; 85730; 87040; 87086; 93005; 93010; 93970; 94640; 96374; 99285; J1644; J1815; J1940; J3490; Q4081

== ENCOUNTER 2017-11-01 01:04 | Inpatient (IN) | payer MEDICARE, MEDICAID ==
--- NOTE | 2017-11-01 01:27 | ER Document Report ---
ED General - General Stated Complaint: TROUBLE BREATHING Time Seen by Provider: 11/01/17 01:10 Notes: Patient is a 32-year-old female with a past medical history of chronic kidney disease with dialysis dependence, congestive heart failure, asthma, who presents with shortness of breath has been progressively worsening over the past 48 hours. Patient describes it as a severe, constant, shortness of breath that is worsened by any form of exertion or movement. Nothing improves her symptoms. She has not missed any sessions of dialysis although is due for dialysis within the next 6-7 hours. She does note an intermittent chest discomfort with coughing but denies any chest pain outside these episodes. She denies any history of DVT or pulmonary embolus. No pleuritic pain. She has not yet seen or spoken to her primary care team regarding today's concerns. She notes a history of similar symptoms in the past of volume overload and pulmonary edema TRAVEL OUTSIDE OF THE [place] IN LAST 30 DAYS: No - Related Data Allergies/Adverse Reactions: acetaminophen [From Vicodin] Allergy (Verified 10/02/17 15:04) aspirin [Aspirin] Allergy (Verified 10/02/17 15:04) Anaphylaxis ciprofloxacin [From Cipro] Allergy (Verified 10/02/17 15:04) Anaphylaxis clindamycin [Clindamycin] Allergy (Verified 10/02/17 15:04) hydrocodone [From Vicodin] Allergy (Verified 10/02/17 15:04) ibuprofen [From Motrin] Allergy (Verified 10/02/17 15:04) Anaphylaxis lidocaine [From Lidoderm] Allergy (Verified 10/02/17 15:04) Generalized rash tramadol HCl [From Ultram] Allergy (Verified 10/02/17 15:04) vancomycin [Vancomycin] Allergy (Verified 10/02/17 15:04) Shortness of Breath nitroglycerin [Nitroglycerin] Adverse Reaction (Intermediate, Verified 10/02/17 15:04) Joint pain Past Medical History - General Information source: Patient - Social History Smoking Status: Never Smoker Frequency of alcohol use: None Drug Abuse: None Family History: Reviewed & Not Pertinent - Past Medical History Cardiac Medical History: Reports: Hx Congestive Heart Failure, Hx Coronary Artery Disease, Hx Hypertension, Hx Heart Murmur Pulmonary Medical History: Reports: Hx Asthma, Hx Pneumonia Neurological Medical History: Reports: Hx Migraine, Hx Seizures Endocrine Medical History: Reports: Hx Diabetes Mellitus Type 1, Hx Diabetes Mellitus Type 2 Renal/ Medical History: Reports: Hx End Stage Renal Disease - On hemodialysis , Hx Hemodialysis, Hx Ovarian Cysts. Denies: Hx Peritoneal Dialysis Malignancy Medical History: GI Medical History: Reports: Hx Gastritis. Denies: Hx Pancreatitis Musculoskeltal Medical History: Skin Medical History: Reports Hx Psoriasis Psychiatric Medical History: Reports: Hx Depression Traumatic Medical History: Infectious Medical History: Past Surgical History: Reports: Hx Appendectomy, Hx Cholecystectomy, Hx Vascular Surgery - Left arm fistula; Perm Cath -Right Chest, right arm fistula - Immunizations Immunizations up to date: Yes Hx Diphtheria, Pertussis, Tetanus Vaccination: Yes Hx Pneumococcal Vaccination: 08/22/11 Review of Systems - Review of Systems Notes: Constitutional: Negative for fever. HENT: Negative for sore throat. Eyes: Negative for visual changes. Cardiovascular: Positive for chest pain. Respiratory: Positive for shortness of breath. Gastrointestinal: Negative for abdominal pain, vomiting or diarrhea. Genitourinary: Negative for dysuria. Musculoskeletal: Negative for back pain. Skin: Negative for rash. Neurological: Negative for headaches, weakness or numbness. 10 point ROS negative except as marked above and in HPI. Physical Exam - Vital signs Vitals: Resp 18 11/01/17 01:08 Interpretation: Normal Notes: PHYSICAL EXAMINATION: GENERAL: Appears uncomfortable, in moderate respiratory distress HEAD: Atraumatic, normocephalic. EYES: Pupils equal round and reactive to light, extraocular movements intact, sclera anicteric, conjunctiva are normal. ENT: nares patent, oropharynx clear without exudates. Moist mucous membranes. NECK: Normal range of motion, supple without lymphadenopathy LUNGS: Diminished breath sounds at the bases bilaterally. Moderate tachypnea HEART: Regular rate and rhythm without murmurs ABDOMEN: Soft, nontender, normoactive bowel sounds. No guarding, no rebound. No masses appreciated. EXTREMITIES: Normal range of motion, no pitting or edema. No cyanosis. NEUROLOGICAL: No focal neurological deficits. Moves all extremities spontaneously and on command. PSYCH: Normal mood, normal affect. SKIN: Warm, Dry, normal turgor, no rashes or lesions noted. Course - Re-evaluation Re-evalutation: 11/01/17 01:22 Patient presents with complaints of shortness of breath progressively worsening for the past 2 days. She arrives somewhat tachypneic breathing 20 breaths per minute, labored breathing, saturating 91% on room air. She does not have a baseline oxygen requirement. She is also quite hypertensive at 183 and 82 although she is due for dialysis in several hours. She does have a history of CHF as well as chronic kidney disease with dialysis dependence. Will place patient on BiPAP given her degree of labored breathing, obtain chest x-ray, laboratories, and reassess patient will require frequent reassessments given her initial respiratory effort is considered critically ill at this time 11/01/17 02:17 Patient reports some improvement on BiPAP. Work of breathing is overall improved. She is now saturating 99% on 35% FiO2. Awaiting chest x-ray to be completed have discount asked him to please come do the study immediately as this was ordered over an hour ago. CBC has resulted and is unremarkable. Initial chemistries were hemolyzed I am awaiting these results. 11/01/17 02:49 VBG does not show any CO2 retention, patient remains with much improved work of breathing on bipap. We do have dialysis beds available. I have contacted patient 's primary team to request admission. 11/01/17 03:[address] Harman covering for Dr. Singleton who is accepted the patient to [facility]. Dr. Kwon will be on-call at 7 AM and the admitting team is aware of this. Patient remains clinically much improved on BiPAP. - Vital Signs Vital signs: Temp Pulse Resp BP Pulse Ox 97.8 F 24 H 183/82 H 98 11/01/17 01:10 11/01/17 02:00 11/01/17 01:10 11/01/17 02:00 - Laboratory Result Diagrams: 11/01/17 01:35 11/01/17 02:00 Laboratory results interpreted by me: 11/01/17 11/01/17 11/01/17 01:35 02:00 02:00 WBC 11.5 H RBC 3.41 L Hgb 10.1 L Hct 31.1 L RDW 16.6 H Lymphocytes % 12.2 L Absolute Neutrophils 8.7 H Absolute Eosinophils 0.7 H Carbon Dioxide 21 L Anion Gap 21 H BUN 51 H Creatinine 10.38 H Est GFR ( Amer) 5 L Est GFR (Non-Af Amer) 4 L Glucose 179 H NT-Pro-B Natriuret Pep 56922 H - Diagnostic Test Radiology reviewed: Image reviewed, Reports reviewed Radiology results interpreted by me: 11/01/17 02:49 CXR: Pulmonary edema, cardiomegaly Critical Care Note - Critical Care Note Total time excluding time spent on procedures (mins): 37 Comments: Critical care time spent obtaining history from patient or surrogate, discussions with consultants, development of treatment plan with patient or surrogate, evaluation of patient's response to treatment, examination of patient , ordering and performing treatments and interventions, ordering and review of laboratory studies, re-evaluation of patient's condition, ordering and review of radiographic studies and review of old charts Discharge - Discharge Clinical Impression: Respiratory distress, Acute on chronic systolic CHF (congestive heart failure) , End stage renal disease Pulmonary edema Qualifiers: Chronicity: acute Qualified Code(s): J81.0 - Acute pulmonary edema Condition: Fair Disposition: ADMITTED INPATIENT Admitting Provider: [facility] Admitted: [facility]
[2017-11-01 01:53] LABS: ABSOLUTE BASOPHILS # (AUTO) 0.1 10^3/uL (0.0-0.2); ABSOLUTE EOSINOPHILS # (AUTO) 0.7 10^3/uL (0.0-0.6); ABSOLUTE LYMPHOCYTES (AUTO) 1.4 10^3/uL (0.5-4.7); ABSOLUTE MONOCYTES (AUTO) 0.6 10^3/uL (0.1-1.4); ABSOLUTE NEUT (AUTO) 8.7 10^3/uL (1.7-8.2); EOSINOPHILS % (AUTO) 5.7 % (0-6); HEMATOCRIT 31.1 % (36.0-47.0); HEMOGLOBIN 10.1 g/dL (12.0-15.5); HGB HCT DIFFERENCE -0.8; LYMPHOCYTES % (AUTO) 12.2 % (13-45); MEAN CORPUSCULAR HEMOGLOBIN 29.6 pg (27.0-33.4); MEAN CORPUSCULAR HGB CONC 32.5 g/dL (32.0-36.0); MEAN CORPUSCULAR VOLUME 91 fl (80-97); MONOCYTES % (AUTO) 5.4 % (3-13); RED BLOOD COUNT 3.41 10^6/uL (3.72-5.28); RED CELL DISTRIBUTION WIDTH 16.6 % (11.5-14.0); SEGMENTED NEUTROPHILS % (AUTO) 75.7 % (42-78); WHITE BLOOD COUNT 11.5 10^3/uL (4.0-10.5)
[2017-11-01 02:22] LABS: BLOOD UREA NITROGEN 51 mg/dL (7-20); CALCIUM 8.6 mg/dL (8.4-10.2); CHLORIDE 100 mmol/L (98-107); CREATININE RESULT 10.38 mg/dL (0.52-1.25); GLUCOSE 179 mg/dL (75-110); POTASSIUM 4.8 mmol/L (3.6-5.0)
[2017-11-01 02:31] LABS: CARBON DIOXIDE 21 mmol/L (22-30); SODIUM 142.4 mmol/L (137-145)
[2017-11-01 02:33] LABS: VENOUS BLOOD BASE EXCESS -1.6 mmol/L; VENOUS BLOOD HCO3 23.9 mmol/L (20-32); VENOUS BLOOD PCO2 43.1 mmHg (35-63); VENOUS BLOOD PH 7.36 (7.30-7.42)
[2017-11-01 02:34] LABS: TROPONIN I 0.018 ng/mL
[2017-11-01 02:40] LABS: ANION GAP 21 (5-19)
--- NOTE | 2017-11-01 03:06 | EKG REPORT ---
SEVERITY:- ABNORMAL ECG - SINUS RHYTHM PROBABLE LEFT ATRIAL ABNORMALITY BORDERLINE LEFT AXIS DEVIATION NONSPECIFIC T ABNORMALITIES, LATERAL LEADS BORDERLINE PROLONGED QT INTERVAL : Confirmed by: Daniela Lemons 01-Nov-2017 03:06:06
--- NOTE | 2017-11-01 03:08 | RADIOLOGY REPORT (SQ) ---
EXAM DESCRIPTION: CHEST SINGLE VIEW CLINICAL HISTORY: 32 years, Female, sob COMPARISON: 10/03/2017. LIMITATIONS: None. FINDINGS: Moderate patchy airspace opacities of the mid and central lung field, moderate lung volume, mild enlargement of the cardiac silhouette, and stent material of the right axilla in proximal right upper arm. IMPRESSION: Moderate CHF pattern. Differential diagnosis includes multifocal pneumonia. 2011 [employer]- All Rights Reserved
[2017-11-01] MEDS ORDERED: HEPARIN SOD (PORCINE) 1,000 UNIT/ML 10 ML VIAL IV PRN ×2 (11:37→17:27)
--- NOTE | 2017-11-01 18:48 | PDOC CONSULTATION ---
Consultation Consult Date: 11/01/17 Consult reason:: Urgent hemodialysis in the setting of congestive heart failure. History of Present Illness Admission Date/PCP: 11/01/17 03:29 HILARY HERNANDEZ MD History of Present Illness: ERICH GOODMAN is a 32 year old female history of long-standing diabetes mellitus, hypertension and ESRD on hemodialysis with additional background history of noncompliance comes in with history of chest pain, shortness of breath, headaches and fullness of her face for the last few days. She was recently admitted with a complicated sinusitis and was discharged home. She says she has not had complete relief of those symptoms. She also complains of a pleuritic-like chest pain which is retrosternal and not radiating. She has had multiple episodes of similar nature in the past. She is also noncompliant with her medications and diet and comes in with at least 7-8 kg of fluid overload. Multiple admissions in the past for malignant hypertension manifesting as congestive heart failure. Chest x-ray on this visit shows possibility of congestive heart failure with multi focal pneumonia as a differential. She denies any history of fever chills or riders. No history of any skin rashes focal deficits. No history of any seizures. Past Medical History Cardiac Medical History: Reports: Coronary Artery Disease, Heart Murmur, Hypertension-primary Pulmonary Medical History: Reports: Asthma, Pneumonia Neurological Medical History: Reports: Migraine, Seizures Endocrine Medical History: Reports: Diabetes Mellitus Type 1, Diabetes Mellitus Type 2 Complications of Diabetes: Reports: Autonomic Neuropathy, Retinopathy Renal/ Medical History: Reports: End Stage Renal Disease - On hemodialysis, Hyperkalemia, Secondary Hyperparathyroidism Malignancy Medical History: GI Medical History: Musculoskeltal Medical History: Denies: Rheumatoid Arthritis, Systemic Lupus Erythematosus Skin Medical History: Reports: Psoriasis Psychiatric Medical History: Reports: Depression Infectious Medical History: Hematology Medical History: Reports Anemia of Chronic Kidney Disease Past Surgical History Past Surgical History: Reports: Appendectomy, Cholecystectomy, Dialysis Access Surgery AVF, Vascular Surgery - Left arm fistula; Perm Cath -Right Chest, right arm fistula Social History Smoking Status: Never Smoker Frequency of Alcohol Use: None Hx Recreational Drug Use: No Drugs: None Hx Prescription Drug Abuse: No - Advance Directive Resuscitation Status: Full Code Family History Parental Family History Reviewed: Yes - Negative for ESRD. Children Family History Reviewed: No Sibling(s) Family History Reviewed.: No Medication/Allergy Home Medications: Acetaminophen [Tylenol Extra Strength 500 mg Tablet] 500 mg PO Q4 11/01/17 Albuterol Sulfate [Proair HFA Inhalation Aerosol 8.5 gm MDI] 2 puff IN Q4HP PRN 11/01/17 Alprazolam [Xanax 0.25 mg Tablet] 0.25 mg PO Q8 11/01/17 Budesonide/Formoterol Fumarate [Symbicort 160-4.5 Mcg Inhaler] 2 puff IN Q12 10/08 Butalb/Acetaminophen/Caffeine [Fioricet (50-325-40 mg) Tablet] 1 tab PO Q4HP PRN 11/01/17 Desipramine HCl [Norpramin 25 mg Tablet] 25 mg PO DAILY 11/01/17 Furosemide [Lasix] 80 mg PO TID 11/01/17 Gabapentin Enacarbil [Horizant] 600 mg PO WSUPPER 11/01/17 Hydralazine HCl 100 mg PO Q8 11/01/17 Insulin Detemir [Levemir Insulin 100 units/mL] 30 unit SQ BID 11/01/17 Insulin Lispro [Humalog Kwikpen U-100] 0 unit SQ .SLIDING SCALE 11/01/17 Ipratropium/Albuterol Sulfate [Iprat-Albut 0.5-3(2.5) mg/3 ml] 3 ml NEB Q6 11/01 Labetalol HCl [Normodyne 200 mg Tablet] 200 mg PO Q8 11/01/17 Levetiracetam [Keppra 500 mg Tablet] 500 mg PO DAILY 11/01/17 Lisinopril [Prinivil 40 mg Tablet] 40 mg PO Q12 11/01/17 Meclizine HCl [Antivert 25 mg Tablet] 25 mg PO TIDP PRN 11/01/17 Mometasone Furoate [Nasonex] 2 spray NASL DAILY 11/01/17 Montelukast Sodium [Singulair] 10 mg PO QPM 11/01/17 Nifedipine [Nifedipine ER] 60 mg PO Q12 11/01/17 Omeprazole 40 mg PO DAILY 11/01/17 Paroxetine HCl [Paxil] 40 mg PO QAM 11/01/17 Saccharomyces Boulardii [Florastor] 250 mg PO Q12 11/01/17 Topiramate [Topamax] 50 mg PO Q12 11/01/17 Allergies/Adverse Reactions: acetaminophen [From Vicodin] Allergy (Verified 10/02/17 15:04) aspirin [Aspirin] Allergy (Verified 10/02/17 15:04) Anaphylaxis ciprofloxacin [From Cipro] Allergy (Verified 10/02/17 15:04) Anaphylaxis clindamycin [Clindamycin] Allergy (Verified 10/02/17 15:04) hydrocodone [From Vicodin] Allergy (Verified 10/02/17 15:04) ibuprofen [From Motrin] Allergy (Verified 10/02/17 15:04) Anaphylaxis lidocaine [From Lidoderm] Allergy (Verified 10/02/17 15:04) Generalized rash tramadol HCl [From Ultram] Allergy (Verified 10/02/17 15:04) vancomycin [Vancomycin] Allergy (Verified 10/02/17 15:04) Shortness of Breath nitroglycerin [Nitroglycerin] Adverse Reaction (Intermediate, Verified 10/02/17 15:04) Joint pain Review of Systems Constitutional: PRESENT: fatigue, headache(s), weakness. ABSENT: fever(s), night sweats Nose, Mouth, and Throat: PRESENT: headache(s), sore throat Cardiovascular: PRESENT: chest pain, dyspnea on exertion, edema. ABSENT: orthropnea Gastrointestinal: ABSENT: abdominal pain, constipation, diarrhea, dysphagia, heartburn, hematemesis, hematochezia Genitourinary: ABSENT: dysuria, hematuria Neurological: ABSENT: confusion, convulsions, focal weakness Hematologic/Lymphatic: ABSENT: easy bruising Physical Exam Vital Signs: Temp Pulse Resp BP Pulse Ox 97.9 F 82 18 169/71 H 100 11/01/17 12:31 11/01/17 14:00 11/01/17 12:31 11/01/17 12:31 11/01/17 17:16 Intake & Output 10/31/17 11/01/17 11/02/17 06:59 06:59 06:59 Weight 122.016 kg General appearance: PRESENT: mild distress Head exam: PRESENT: other - She is got tenderness in the left maxillary sinus area Eye exam: PRESENT: conjunctiva pink, EOMI, PERRLA. ABSENT: nystagmus Mouth exam: PRESENT: moist, neck supple Neck exam: ABSENT: lymphadenopathy, meningismus, tenderness, thyromegaly, tracheal deviation Respiratory exam: PRESENT: clear to auscultation freddy, symmetrical. ABSENT: crackles, wheezes Cardiovascular exam: PRESENT: +S1, +S2 GI/Abdominal exam: PRESENT: normal bowel sounds, soft. ABSENT: distended, organomegaly, tenderness Extremities exam: PRESENT: +1 edema Neurological exam: PRESENT: awake, oriented to person, oriented to place Skin exam: ABSENT: erythema, mottled, petechiae, rash Results Impressions: Chest X-Ray 11/01/17 01:11 IMPRESSION: Moderate CHF pattern. Differential diagnosis includes multifocal pneumonia. 2010 [employer]- All Rights Reserved Assessment & Plan - Diagnosis (1) ESRD (end stage renal disease) Plan: Plan for dialysis. She is currently undergoing dialysis without any issues. Is being supervised to ensure safe and smooth procedure. Vital signs are stable.Will remove at least 5 of 7 l of fluid as tolerated.Needs [employer] to arrange for OP dialysis. (2) Acute exacerbation of congestive heart failure Plan: Plan to remove at least 5 L as tolerated. Further dialysis requirements to be determined tomorrow if needed to remove more fluid. Otherwise will dialyze again on Wednesday. Discussed with her with compliance on diet and fluid and medications. (3) Acute maxillary sinusitis Qualifiers: Plan: Dr. Hernandez is going to see the patient and will determine further management. (4) Anemia due to chronic kidney disease Plan: Currently stable and does not require any Procrit for now. (5) Morbid obesity Plan: Advised on weight loss. (6) Pneumonia Qualifiers: Plan: Is a differential but seems less likely. She has got congestive heart failure and will follow up with an x-ray in the morning. (7) Sinusitis Plan: Likely affecting the left maxillary sinus. Management as per Dr. Hernandez.
[2017-11-01] MEDS ORDERED: BUTALB/ACETAMINOPHEN/CAFFEINE 1 TAB EACH PO PRN (20:18)
[2017-11-01] MEDS ORDERED: ALBUTEROL SULFATE HFA (90 MCG/PUFF) 200 PUFF/8.5 GM MDI IH PRN (20:18)
[2017-11-01] MEDS ORDERED: INSULIN LISPRO 1 UNIT SQ SCH (20:30)
[2017-11-01] MEDS ORDERED: DEXTROSE 50%-WATER SYRINGE 12.5 GM/25 ML DOSE IV PRN (21:07)
[2017-11-01] MEDS ORDERED: DEXTROSE 40% GEL 15 GM TUBE X 2 PO PRN (21:07)
[2017-11-01] MEDS ORDERED: DEXTROSE 50%-WATER SYRINGE 25 GM/50 ML DOSE IV PRN (21:07)
[2017-11-01] MEDS ORDERED: GLUCAGON,HUMAN RECOMB 1 MG INJ IM PRN (21:07)
[2017-11-01] MEDS ORDERED: DEXTROSE 40% GEL 15 GM TUBE PO PRN (21:07)
[2017-11-01] MEDS: ALPRAZOLAM 0.25 MG TABLET PO SCH (21:19)
[2017-11-01] MEDS: NIFEDIPINE 30 MG TAB.ER.24 PO SCH (21:20)
[2017-11-01] MEDS: LABETALOL HCL 200 MG TABLET PO SCH (21:20)
[2017-11-01] MEDS: HYDRALAZINE HCL 50 MG TABLET PO SCH (21:21)
[2017-11-01] MEDS: TOPIRAMATE 25 MG TABLET PO SCH (21:22)
[2017-11-01] MEDS: HEPARIN SOD (PORCINE) 5,000 UNIT/ML 1 ML SYRINGE SUBCUT SCH ×2 (21:22→21:46)
[2017-11-01] MEDS: ACETAMINOPHEN 325 MG TABLET PO SCH (21:22)
[2017-11-01] MEDS: BUDESONIDE/FORMOTEROL 160-4.5 MCG 60 PUFF/6 GM MDI IH SCH (21:51)
[2017-11-01] MEDS: INSULIN DETEMIR 100 UNIT/ML 3 ML PEN SUBCUT SCH (21:53)
[2017-11-01] MEDS ORDERED: (PENDING PHARMACY ID) (Acetaminophen [Tylenol Extra Strength 500 Mg Tablet] 500 MG) PO SCH (22:00)
[2017-11-01] MEDS ORDERED: (PENDING PHARMACY ID) (Nifedipine [Nifedipine Er] 60 MG) PO SCH (22:00)
[2017-11-01] MEDS ORDERED: (PENDING PHARMACY ID) (Hydralazine Hcl [Hydralazine Hcl] 100 MG) PO SCH (22:00)
[2017-11-01] MEDS ORDERED: AZITHROMYCIN 250 MG TABLET PO SCH (22:00)
[2017-11-02] MEDS: ACETAMINOPHEN 325 MG TABLET PO SCH ×4 (01:49→13:14)
[2017-11-02] MEDS: IPRATROPIUM/ALBUTEROL 0.5-2.5 MG/3 ML AMPUL NEB SCH ×4 (02:05→20:44)
[2017-11-02] MEDS: HEPARIN SOD (PORCINE) 5,000 UNIT/ML 1 ML SYRINGE SUBCUT SCH ×3 (05:32→21:21)
[2017-11-02] MEDS: HYDRALAZINE HCL 50 MG TABLET PO SCH ×3 (05:33→21:22)
[2017-11-02] MEDS: LABETALOL HCL 200 MG TABLET PO SCH ×3 (05:34→21:25)
[2017-11-02] MEDS: ALPRAZOLAM 0.25 MG TABLET PO SCH ×3 (05:34→21:22)
[2017-11-02] MEDS ORDERED: PAROXETINE HCL 20 MG TABLET PO SCH (08:00)
[2017-11-02] MEDS: INSULIN LISPRO 100 UNIT/ML 3 ML VIAL SUBCUT PRN ×3 (08:02→17:32)
[2017-11-02] MEDS ORDERED: (PENDING PHARMACY ID) (Mometasone Furoate [Nasonex] 2 SPRAY) NASL SCH (10:00)
[2017-11-02] MEDS: INSULIN DETEMIR 100 UNIT/ML 3 ML PEN SUBCUT SCH ×2 (10:25→21:32)
[2017-11-02] MEDS: BUDESONIDE/FORMOTEROL 160-4.5 MCG 60 PUFF/6 GM MDI IH SCH ×2 (10:25→21:21)
[2017-11-02] MEDS: NIFEDIPINE 30 MG TAB.ER.24 PO SCH ×2 (10:26→21:22)
[2017-11-02] MEDS: DESIPRAMINE HCL 25 MG TABLET PO SCH (10:26)
[2017-11-02] MEDS: FUROSEMIDE 80 MG TABLET PO SCH ×3 (10:26→17:32)
[2017-11-02] MEDS: TOPIRAMATE 25 MG TABLET PO SCH (10:30)
[2017-11-02] MEDS: FLUTICASONE NASAL SPRAY 50 MCG/SPRY 120 SPRAY/16 GM NASL SCH (10:30)
[2017-11-02 13:55] LABS: ABSOLUTE EOSINOPHILS # (AUTO) 0.4 10^3/uL (0.0-0.6); ABSOLUTE LYMPHOCYTES (AUTO) 1.2 10^3/uL (0.5-4.7); ABSOLUTE MONOCYTES (AUTO) 0.4 10^3/uL (0.1-1.4); ABSOLUTE NEUT (AUTO) 3.7 10^3/uL (1.7-8.2); BASOPHILS % (AUTO) 0.8 % (0-2); EOSINOPHILS % (AUTO) 7.7 % (0-6); HEMATOCRIT 32.7 % (36.0-47.0); HEMOGLOBIN 10.7 g/dL (12.0-15.5); HGB HCT DIFFERENCE -0.6; LYMPHOCYTES % (AUTO) 20.2 % (13-45); MEAN CORPUSCULAR HEMOGLOBIN 29.7 pg (27.0-33.4); MEAN CORPUSCULAR HGB CONC 32.8 g/dL (32.0-36.0); MEAN CORPUSCULAR VOLUME 90 fl (80-97); MONOCYTES % (AUTO) 7.7 % (3-13); RED BLOOD COUNT 3.62 10^6/uL (3.72-5.28); RED CELL DISTRIBUTION WIDTH 16.9 % (11.5-14.0); SEGMENTED NEUTROPHILS % (AUTO) 63.6 % (42-78); WHITE BLOOD COUNT 5.7 10^3/uL (4.0-10.5)
[2017-11-02 14:18] LABS: ANION GAP 19 (5-19); BLOOD UREA NITROGEN 40 mg/dL (7-20); CALCIUM 8.9 mg/dL (8.4-10.2); CARBON DIOXIDE 28 mmol/L (22-30); CHLORIDE 93 mmol/L (98-107); CREATININE RESULT 9.36 mg/dL (0.52-1.25); GLUCOSE 209 mg/dL (75-110); SODIUM 139.5 mmol/L (137-145)
[2017-11-02 14:22] LABS: POTASSIUM 4.8 mmol/L (3.6-5.0)
--- NOTE | 2017-11-02 15:08 | PDOC PROGRESS REPORT ---
Subjective Progress Note for:: 11/02/17 Subjective:: Patient was found laying in bed on her left side. She is less short of breath, but still complains of the persistent chest pain. She says that nothing has relieved. She is also having a sore throat and a lot of sinus pressure. Denies fevers or chills. Reason For Visit: VOLUME OVERLOAD,ESRD Physical Exam Vital Signs: Temp Pulse Resp BP Pulse Ox 97.5 F 76 16 148/62 H 96 11/02/17 11:36 11/02/17 14:33 11/02/17 14:33 11/02/17 11:36 11/02/17 14:33 Intake & Output 11/01/17 11/02/17 11/03/17 06:59 06:59 06:59 Intake Total 447 222 Output Total 5000 0 Balance -4553 222 Weight 253.4 kg General appearance: PRESENT: mild distress, morbidly obese Head exam: PRESENT: atraumatic, normocephalic Eye exam: PRESENT: PERRLA. ABSENT: scleral icterus Neck exam: PRESENT: full ROM. ABSENT: JVD, tracheal deviation Respiratory exam: PRESENT: accessory muscle use, crackles - -bases of the lungs. ABSENT: clear to auscultation freddy, wheezes Cardiovascular exam: PRESENT: RRR, +S1, +S2 GI/Abdominal exam: PRESENT: normal bowel sounds, soft. ABSENT: distended, organomegaly, tenderness Extremities exam: PRESENT: pedal edema - -trace+. ABSENT: joint swelling, tenderness Musculoskeletal exam: PRESENT: normal inspection. ABSENT: tenderness Neurological exam: PRESENT: alert, awake, oriented to person, oriented to place , oriented to time, oriented to situation Psychiatric exam: PRESENT: agitated, anxious, unusual affect Skin exam: PRESENT: dry, intact, warm Results Laboratory Results: 11/02/17 13:37 11/02/17 13:37 11/02/17 11/02/17 13:37 13:37 WBC 5.7 RBC 3.62 L Hgb 10.7 L Hct 32.7 L MCV 90 MCH 29.7 MCHC 32.8 RDW 16.9 H Plt Count 285 Seg Neutrophils % 63.6 Lymphocytes % 20.2 Monocytes % 7.7 Eosinophils % 7.7 H Basophils % 0.8 Absolute Neutrophils 3.7 Absolute Lymphocytes 1.2 Absolute Monocytes 0.4 Absolute Eosinophils 0.4 Absolute Basophils 0.0 Sodium 139.5 Potassium 4.8 Chloride 93 L Carbon Dioxide 28 Anion Gap 19 BUN 40 H Creatinine 9.36 H Est GFR ( Amer) 6 L Est GFR (Non-Af Amer) 5 L Glucose 209 H Calcium 8.9 Impressions: Chest X-Ray 11/01/17 01:11 IMPRESSION: Moderate CHF pattern. Differential diagnosis includes multifocal pneumonia. 2010 [employer]- All Rights Reserved Assessment & Plan - Diagnosis (1) Acute on chronic systolic CHF (congestive heart failure) Plan: Looks to be improving. Will dialysis more fluid tomorrow. (2) Chest pain Plan: troponins were previously negative, blood gas was normal. Not concerned for MD or PE (3) ESRD (end stage renal disease) Plan: Going to do dialysis tomorrow and help pull off the rest of the fluid (4) Acute maxillary sinusitis Qualifiers: Plan: Dr. Singleton is currently handling the care of this (5) Anemia due to chronic kidney disease Plan: Currently stable, not requiring epogen (6) Diabetes mellitus type 1 Qualifiers: Diabetes mellitus complication status: with kidney complications Diabetes mellitus complication detail: with chronic kidney disease Chronic kidney disease stage: stage 5, not on chronic dialysis Qualified Code(s): E10.22 - Type 1 diabetes mellitus with diabetic chronic kidney disease Plan: mostly controlled (7) Hypertension Plan: almost controlled below 140s. Will pull more fluid off tomorrow and reassess
[2017-11-02] MEDS ORDERED: (PENDING PHARMACY ID) (Gabapentin Enacarbil [Horizant] 600 MG) PO SCH (17:00)
[2017-11-02] MEDS ORDERED: ACETAMINOPHEN 325 MG TABLET PO PRN (17:27)
[2017-11-02] MEDS: PAROXETINE HCL 20 MG TABLET PO SCH (17:32)
[2017-11-02] MEDS: MONTELUKAST SODIUM 10 MG TABLET PO SCH (17:33)
--- NOTE | 2017-11-02 21:25 | PDOC PROGRESS REPORT ---
Subjective Progress Note for:: 11/02/17 Subjective:: She complained of ENT symptoms, otherwise she is feeling better Reason For Visit: VOLUME OVERLOAD,ESRD Physical Exam Vital Signs: Temp Pulse Resp BP Pulse Ox 98.8 F 84 18 153/68 H 99 11/02/17 19:37 11/02/17 19:37 11/02/17 19:37 11/02/17 19:37 11/02/17 19:37 Intake & Output 11/01/17 11/02/17 11/03/17 06:59 06:59 06:59 Intake Total 447 701 Output Total 5000 0 Balance -4553 701 Weight 253.4 kg 116.8 kg General appearance: PRESENT: no acute distress Eye exam: PRESENT: PERRLA Respiratory exam: PRESENT: clear to auscultation freddy Cardiovascular exam: PRESENT: +S1, +S2 GI/Abdominal exam: PRESENT: soft Neurological exam: PRESENT: alert Results Laboratory Results: 11/02/17 13:37 11/02/17 13:37 11/02/17 11/02/17 13:37 13:37 WBC 5.7 RBC 3.62 L Hgb 10.7 L Hct 32.7 L MCV 90 MCH 29.7 MCHC 32.8 RDW 16.9 H Plt Count 285 Seg Neutrophils % 63.6 Lymphocytes % 20.2 Monocytes % 7.7 Eosinophils % 7.7 H Basophils % 0.8 Absolute Neutrophils 3.7 Absolute Lymphocytes 1.2 Absolute Monocytes 0.4 Absolute Eosinophils 0.4 Absolute Basophils 0.0 Sodium 139.5 Potassium 4.8 Chloride 93 L Carbon Dioxide 28 Anion Gap 19 BUN 40 H Creatinine 9.36 H Est GFR ( Amer) 6 L Est GFR (Non-Af Amer) 5 L Glucose 209 H Calcium 8.9 Impressions: Chest X-Ray 11/01/17 01:11 IMPRESSION: Moderate CHF pattern. Differential diagnosis includes multifocal pneumonia. 2010 [employer]- All Rights Reserved Assessment & Plan - Diagnosis (1) Acute on chronic diastolic heart failure Is this a current diagnosis for this admission?: Yes (2) Diabetes mellitus type 1 with complications Is this a current diagnosis for this admission?: Yes (3) ESRD (end stage renal disease) on dialysis Is this a current diagnosis for this admission?: Yes (4) Acute sinusitis Qualifiers: Sinusitis location: maxillary Recurrence: recurrent Qualified Code(s): J01.01 - Acute recurrent maxillary sinusitis Is this a current diagnosis for this admission?: Yes
--- NOTE | 2017-11-02 21:25 | PDOC H&P ---
History of Present Illness Admission Date/PCP: 11/01/17 03:29 HILARY HERNANDEZ MD History of Present Illness: Patient 32-year-old with end-stage renal disease on maintenance hemodialysis he came to emergency room because of shortness of breath chest x-ray was done she was found to have acute pulmonary edema. She has multiple hospitalization for similar presentation, usually she will present with acute pulmonary edema usually pneumonia is suspected but soon after hemodialysis she feels much better suggesting that it is more likely to be pulmonary edema, partly due to chronic diastolic dysfunction of the left ventricle and noncompliance with diet and fluid restriction. She was dialyzed this morning when she presented and she is already feeling better. Past Medical History Cardiac Medical History: Reports: Hypertension, Other - Chronic diastolic heart failure, heart failure with preserved ejection frac Pulmonary Medical History: Reports: Asthma, Pneumonia Neurological Medical History: Reports: Migraine, Seizures Endocrine Medical History: Reports: Diabetes Mellitus Type 1 Renal/ Medical History: Reports: End Stage Renal Disease - On hemodialysis Malignancy Medical History: GI Medical History: Musculoskeltal Medical History: Skin Medical History: Reports: Psoriasis Psychiatric Medical History: Reports: Depression Hematology: Reports: Anemia Infectious Medical History: Past Surgical History Past Surgical History: Reports: Appendectomy, Cholecystectomy, Vascular Surgery - Left arm fistula; Perm Cath -Right Chest, right arm fistula Social History Smoking Status: Never Smoker Frequency of Alcohol Use: None Hx Recreational Drug Use: No Drugs: None Hx Prescription Drug Abuse: No - Advance Directive Resuscitation Status: Full Code Family History Family History: Reviewed & Not Pertinent Parental Family History Reviewed: Yes Children Family History Reviewed: Yes Sibling(s) Family History Reviewed.: Yes Medication/Allergy Home Medications: Acetaminophen [Tylenol Extra Strength 500 mg Tablet] 500 mg PO Q4 11/01/17 Albuterol Sulfate [Proair HFA Inhalation Aerosol 8.5 gm MDI] 2 puff IN Q4HP PRN 11/01/17 Alprazolam [Xanax 0.25 mg Tablet] 0.25 mg PO Q8 11/01/17 Budesonide/Formoterol Fumarate [Symbicort 160-4.5 Mcg Inhaler] 2 puff IN Q12 10/08 Butalb/Acetaminophen/Caffeine [Fioricet (50-325-40 mg) Tablet] 1 tab PO Q4HP PRN 11/01/17 Desipramine HCl [Norpramin 25 mg Tablet] 25 mg PO DAILY 11/01/17 Furosemide [Lasix] 80 mg PO TID 11/01/17 Gabapentin Enacarbil [Horizant] 600 mg PO WSUPPER 11/01/17 Hydralazine HCl 100 mg PO Q8 11/01/17 Insulin Detemir [Levemir Insulin 100 units/mL] 30 unit SQ BID 11/01/17 Insulin Lispro [Humalog Kwikpen U-100] 0 unit SQ .SLIDING SCALE 11/01/17 Ipratropium/Albuterol Sulfate [Iprat-Albut 0.5-3(2.5) mg/3 ml] 3 ml NEB Q6 11/01 Labetalol HCl [Normodyne 200 mg Tablet] 200 mg PO Q8 11/01/17 Levetiracetam [Keppra 500 mg Tablet] 500 mg PO DAILY 11/01/17 Lisinopril [Prinivil 40 mg Tablet] 40 mg PO Q12 11/01/17 Meclizine HCl [Antivert 25 mg Tablet] 25 mg PO TIDP PRN 11/01/17 Mometasone Furoate [Nasonex] 2 spray NASL DAILY 11/01/17 Montelukast Sodium [Singulair] 10 mg PO QPM 11/01/17 Nifedipine [Nifedipine ER] 60 mg PO Q12 11/01/17 Omeprazole 40 mg PO DAILY 11/01/17 Paroxetine HCl [Paxil] 40 mg PO QAM 11/01/17 Saccharomyces Boulardii [Florastor] 250 mg PO Q12 11/01/17 Topiramate [Topamax] 50 mg PO Q12 11/01/17 Allergies/Adverse Reactions: acetaminophen [From Vicodin] Allergy (Verified 10/02/17 15:04) aspirin [Aspirin] Allergy (Verified 10/02/17 15:04) Anaphylaxis ciprofloxacin [From Cipro] Allergy (Verified 10/02/17 15:04) Anaphylaxis clindamycin [Clindamycin] Allergy (Verified 10/02/17 15:04) hydrocodone [From Vicodin] Allergy (Verified 10/02/17 15:04) ibuprofen [From Motrin] Allergy (Verified 10/02/17 15:04) Anaphylaxis lidocaine [From Lidoderm] Allergy (Verified 10/02/17 15:04) Generalized rash tramadol HCl [From Ultram] Allergy (Verified 10/02/17 15:04) vancomycin [Vancomycin] Allergy (Verified 10/02/17 15:04) Shortness of Breath nitroglycerin [Nitroglycerin] Adverse Reaction (Intermediate, Verified 10/02/17 15:04) Joint pain Review of Systems Constitutional: PRESENT: fatigue Eyes: ABSENT: visual disturbances Ears: ABSENT: hearing changes Cardiovascular: PRESENT: dyspnea on exertion, edema Respiratory: PRESENT: cough, dyspnea Gastrointestinal: ABSENT: abdominal pain, constipation, diarrhea, hematemesis, hematochezia, nausea, vomiting Genitourinary: ABSENT: dysuria, hematuria Musculoskeletal: ABSENT: joint swelling Integumentary: ABSENT: rash, wounds Neurological: ABSENT: abnormal gait, abnormal speech, confusion, dizziness, focal weakness, syncope Psychiatric: ABSENT: anxiety, depression, homidical ideation, suicidal ideation Endocrine: ABSENT: cold intolerance, heat intolerance, menstrual abnormalities, polydipsia, polyuria Hematologic/Lymphatic: ABSENT: easy bleeding, easy bruising, lymphadenopathy Physical Exam Vital Signs: Temp Pulse Resp BP Pulse Ox 98.8 F 84 18 153/68 H 99 11/02/17 19:37 11/02/17 19:37 11/02/17 19:37 11/02/17 19:37 11/02/17 19:37 Intake & Output 11/01/17 11/02/17 11/03/17 06:59 06:59 06:59 Intake Total 447 701 Output Total 5000 0 Balance -4553 701 Weight 253.4 kg 116.8 kg General appearance: PRESENT: no acute distress, severe distress, well-developed , well-nourished Head exam: PRESENT: atraumatic, normocephalic Eye exam: PRESENT: conjunctiva pink, EOMI, PERRLA Ear exam: PRESENT: normal external ear exam Mouth exam: PRESENT: moist, tongue midline Neck exam: PRESENT: full ROM Respiratory exam: PRESENT: rales Cardiovascular exam: PRESENT: RRR, +S1, +S2 Pulses: PRESENT: normal dorsalis pedis pul, +2 pedal pulses bilateral Vascular exam: PRESENT: normal capillary refill GI/Abdominal exam: PRESENT: normal bowel sounds, soft Rectal exam: PRESENT: deferred Neurological exam: PRESENT: alert, awake, oriented to person, oriented to place , oriented to time, oriented to situation, CN II-XII grossly intact Psychiatric exam: PRESENT: appropriate affect, normal mood Skin exam: PRESENT: dry, intact, warm Results Laboratory Results: 11/02/17 13:37 11/02/17 13:37 11/02/17 11/02/17 13:37 13:37 WBC 5.7 RBC 3.62 L Hgb 10.7 L Hct 32.7 L MCV 90 MCH 29.7 MCHC 32.8 RDW 16.9 H Plt Count 285 Seg Neutrophils % 63.6 Lymphocytes % 20.2 Monocytes % 7.7 Eosinophils % 7.7 H Basophils % 0.8 Absolute Neutrophils 3.7 Absolute Lymphocytes 1.2 Absolute Monocytes 0.4 Absolute Eosinophils 0.4 Absolute Basophils 0.0 Sodium 139.5 Potassium 4.8 Chloride 93 L Carbon Dioxide 28 Anion Gap 19 BUN 40 H Creatinine 9.36 H Est GFR ( Amer) 6 L Est GFR (Non-Af Amer) 5 L Glucose 209 H Calcium 8.9 Impressions: Chest X-Ray 11/01/17 01:11 IMPRESSION: Moderate CHF pattern. Differential diagnosis includes multifocal pneumonia. 2010 [employer]- All Rights Reserved Assessment & Plan - Diagnosis (1) Acute on chronic diastolic heart failure Is this a current diagnosis for this admission?: Yes (2) Diabetes mellitus type 1 with complications Is this a current diagnosis for this admission?: Yes (3) ESRD (end stage renal disease) on dialysis Is this a current diagnosis for this admission?: Yes (4) Acute sinusitis Qualifiers: Sinusitis location: maxillary Recurrence: recurrent Qualified Code(s): J01.01 - Acute recurrent maxillary sinusitis Is this a current diagnosis for this admission?: Yes Plan: Treated with antibiotic
[2017-11-03] MEDS: IPRATROPIUM/ALBUTEROL 0.5-2.5 MG/3 ML AMPUL NEB SCH ×2 (01:48→08:45)
[2017-11-03] MEDS: LABETALOL HCL 200 MG TABLET PO SCH ×3 (05:15→21:34)
[2017-11-03] MEDS: HYDRALAZINE HCL 50 MG TABLET PO SCH ×3 (05:15→21:35)
[2017-11-03] MEDS: HEPARIN SOD (PORCINE) 5,000 UNIT/ML 1 ML SYRINGE SUBCUT SCH ×3 (05:25→21:34)
[2017-11-03] MEDS: ALPRAZOLAM 0.25 MG TABLET PO SCH ×3 (06:15→21:37)
[2017-11-03] MEDS: INSULIN LISPRO 100 UNIT/ML 3 ML VIAL SUBCUT PRN ×2 (06:37→18:01)
[2017-11-03 06:43] LABS: HEMATOCRIT 30.5 % (36.0-47.0); HGB HCT DIFFERENCE -0.5; MEAN CORPUSCULAR HEMOGLOBIN 29.6 pg (27.0-33.4); MEAN CORPUSCULAR HGB CONC 32.6 g/dL (32.0-36.0); MEAN CORPUSCULAR VOLUME 91 fl (80-97); RED BLOOD COUNT 3.37 10^6/uL (3.72-5.28); RED CELL DISTRIBUTION WIDTH 16.7 % (11.5-14.0); WHITE BLOOD COUNT 7.4 10^3/uL (4.0-10.5)
[2017-11-03 06:59] LABS: BLOOD UREA NITROGEN 54 mg/dL (7-20); CALCIUM 8.5 mg/dL (8.4-10.2); CHLORIDE 93 mmol/L (98-107); CREATININE RESULT 10.46 mg/dL (0.52-1.25); GLUCOSE 173 mg/dL (75-110); POTASSIUM 5.2 mmol/L (3.6-5.0)
[2017-11-03 07:08] LABS: ANION GAP 18 (5-19); CARBON DIOXIDE 24 mmol/L (22-30); SODIUM 135.3 mmol/L (137-145)
[2017-11-03] MEDS ORDERED: HEPARIN SOD (PORCINE) 1,000 UNIT/ML 10 ML VIAL IV PRN (10:21)
--- NOTE | 2017-11-03 11:19 | PDOC PROGRESS REPORT ---
Subjective Progress Note for:: 11/03/17 Reason For Visit: Patient is being seen today for hemodialysis which is being supervised to ensure safe and smooth procedure. Still complaining of pressure in the head and sinus symptoms. She has been begun on Z-Ed by Dr. Singleton. She denies any history of fever chills or riders. No active nausea vomiting. She denies any difficulty to breathe this morning. Physical Exam Vital Signs: Temp Pulse Resp BP Pulse Ox 97.9 F 81 16 168/97 H 98 11/03/17 07:41 11/03/17 08:45 11/03/17 08:45 11/03/17 07:41 11/03/17 08:45 Intake & Output 11/02/17 11/03/17 11/04/17 06:59 06:59 06:59 Intake Total 447 1721 Output Total 5000 0 Balance -4553 1721 Weight 253.4 kg 116.9 kg General appearance: PRESENT: no acute distress Respiratory exam: PRESENT: clear to auscultation freddy. ABSENT: crackles, rhonchi , stridor Cardiovascular exam: PRESENT: RRR, +S1, +S2 GI/Abdominal exam: PRESENT: normal bowel sounds, soft. ABSENT: distended, organomegaly, tenderness Extremities exam: PRESENT: +1 edema Neurological exam: PRESENT: awake, oriented to person, oriented to place, oriented to time Results Laboratory Results: 11/03/17 06:06 11/03/17 06:06 11/02/17 11/02/17 11/03/17 13:37 13:37 06:06 WBC 5.7 7.4 RBC 3.62 L 3.37 L Hgb 10.7 L 10.0 L Hct 32.7 L 30.5 L MCV 90 91 MCH 29.7 29.6 MCHC 32.8 32.6 RDW 16.9 H 16.7 H Plt Count 285 265 Seg Neutrophils % 63.6 Lymphocytes % 20.2 Monocytes % 7.7 Eosinophils % 7.7 H Basophils % 0.8 Absolute Neutrophils 3.7 Absolute Lymphocytes 1.2 Absolute Monocytes 0.4 Absolute Eosinophils 0.4 Absolute Basophils 0.0 Sodium 139.5 Potassium 4.8 Chloride 93 L Carbon Dioxide 28 Anion Gap 19 BUN 40 H Creatinine 9.36 H Est GFR ( Amer) 6 L Est GFR (Non-Af Amer) 5 L Glucose 209 H Calcium 8.9 11/03/17 06:06 WBC RBC Hgb Hct MCV MCH MCHC RDW Plt Count Seg Neutrophils % Lymphocytes % Monocytes % Eosinophils % Basophils % Absolute Neutrophils Absolute Lymphocytes Absolute Monocytes Absolute Eosinophils Absolute Basophils Sodium 135.3 L Potassium 5.2 H Chloride 93 L Carbon Dioxide 24 Anion Gap 18 BUN 54 H Creatinine 10.46 H Est GFR ( Amer) 5 L Est GFR (Non-Af Amer) 4 L Glucose 173 H Calcium 8.5 Impressions: Chest X-Ray 11/01/17 01:11 IMPRESSION: Moderate CHF pattern. Differential diagnosis includes multifocal pneumonia. 2010 [employer]- All Rights Reserved Assessment & Plan - Diagnosis (1) ESRD (end stage renal disease) Plan: She is currently undergoing dialysis without any issues. Is being supervised to ensure safe and smooth procedure. Vital signs are stable.Will remove at least 5 l of fluid as tolerated. (2) Acute exacerbation of congestive heart failure Plan: Clinicaly much improved. Continue on with ultrafiltration on dialysis today and she should be even better. We discussed again about compliance with diet and fluids.. (3) Acute maxillary sinusitis Qualifiers: Plan: Dr. Singleton is managing. (4) Anemia due to chronic kidney disease Plan: Stable. No indications for erythropoietin today. (6) Pneumonia Qualifiers:
[2017-11-03] MEDS ORDERED: ONDANSETRON 4 MG TAB.RAPDIS PO PRN (12:28)
[2017-11-03] MEDS: FUROSEMIDE 80 MG TABLET PO SCH ×3 (12:29→18:00)
[2017-11-03] MEDS: INSULIN DETEMIR 100 UNIT/ML 3 ML PEN SUBCUT SCH (13:43)
[2017-11-03] MEDS: NIFEDIPINE 30 MG TAB.ER.24 PO SCH ×2 (13:45→21:40)
[2017-11-03] MEDS: BUDESONIDE/FORMOTEROL 160-4.5 MCG 60 PUFF/6 GM MDI IH SCH ×2 (13:49→21:34)
[2017-11-03] MEDS: FLUTICASONE NASAL SPRAY 50 MCG/SPRY 120 SPRAY/16 GM NASL SCH (13:50)
[2017-11-03] MEDS: DESIPRAMINE HCL 25 MG TABLET PO SCH (13:50)
[2017-11-03] MEDS ORDERED: OXYCODONE-ACETAMINOPHEN 5-325 MG TABLET PO ONE (14:00)
[2017-11-03] MEDS ORDERED: OXYCODONE HCL IR 5 MG TABLET PO ONE (14:00)
[2017-11-03] MEDS ORDERED: IPRATROPIUM/ALBUTEROL 0.5-2.5 MG/3 ML AMPUL NEB PRN (15:00)
[2017-11-03] MEDS ORDERED: OXYCODONE-ACETAMINOPHEN 5-325 MG TABLET PO SCH (18:00)
[2017-11-03] MEDS: PAROXETINE HCL 20 MG TABLET PO SCH (18:00)
[2017-11-03] MEDS ORDERED: OXYCODONE HCL IR 5 MG TABLET PO SCH (18:00)
[2017-11-03] MEDS: MONTELUKAST SODIUM 10 MG TABLET PO SCH (18:01)
--- NOTE | 2017-11-03 18:09 | PDOC PROGRESS REPORT ---
Subjective Progress Note for:: 11/03/17 Subjective:: She had hemodialysis today no new complaints Reason For Visit: VOLUME OVERLOAD,ESRD Physical Exam Vital Signs: Temp Pulse Resp BP Pulse Ox 98.9 F 83 19 130/66 H 94 11/03/17 15:38 11/03/17 15:38 11/03/17 15:38 11/03/17 15:38 11/03/17 15:38 Intake & Output 11/02/17 11/03/17 11/04/17 06:59 06:59 06:59 Intake Total 447 1721 900 Output Total 5000 0 0 Balance -4553 1721 900 Weight 253.4 kg 116.9 kg General appearance: PRESENT: no acute distress, well-developed, well-nourished Head exam: PRESENT: atraumatic, normocephalic Eye exam: PRESENT: conjunctiva pink, EOMI, PERRLA. ABSENT: scleral icterus Ear exam: PRESENT: normal external ear exam Mouth exam: PRESENT: moist, tongue midline Neck exam: PRESENT: full ROM Respiratory exam: PRESENT: crackles Cardiovascular exam: PRESENT: RRR, +S1, +S2 Vascular exam: PRESENT: normal capillary refill GI/Abdominal exam: PRESENT: normal bowel sounds, soft Rectal exam: PRESENT: deferred Neurological exam: PRESENT: alert, awake, oriented to person, oriented to place , oriented to time, oriented to situation, CN II-XII grossly intact. ABSENT: motor sensory deficit Psychiatric exam: PRESENT: appropriate affect, normal mood. ABSENT: homicidal ideation, suicidal ideation Skin exam: PRESENT: dry, intact, warm. ABSENT: cyanosis, rash Results Laboratory Results: 11/03/17 06:06 11/03/17 06:06 11/03/17 11/03/17 06:06 06:06 WBC 7.4 RBC 3.37 L Hgb 10.0 L Hct 30.5 L MCV 91 MCH 29.6 MCHC 32.6 RDW 16.7 H Plt Count 265 Sodium 135.3 L Potassium 5.2 H Chloride 93 L Carbon Dioxide 24 Anion Gap 18 BUN 54 H Creatinine 10.46 H Est GFR ( Amer) 5 L Est GFR (Non-Af Amer) 4 L Glucose 173 H Calcium 8.5 Impressions: Chest X-Ray 11/01/17 01:11 IMPRESSION: Moderate CHF pattern. Differential diagnosis includes multifocal pneumonia. 2011 [employer]- All Rights Reserved Assessment & Plan - Diagnosis (1) Acute on chronic diastolic heart failure Is this a current diagnosis for this admission?: Yes (2) Diabetes mellitus type 1 with complications Is this a current diagnosis for this admission?: Yes (3) ESRD (end stage renal disease) on dialysis Is this a current diagnosis for this admission?: Yes (4) Acute sinusitis Qualifiers: Sinusitis location: maxillary Recurrence: recurrent Qualified Code(s): J01.01 - Acute recurrent maxillary sinusitis Is this a current diagnosis for this admission?: Yes
[2017-11-03] MEDS: OXYCODONE-ACETAMINOPHEN 5-325 MG TABLET PO SCH (21:37)
[2017-11-03] MEDS: OXYCODONE HCL IR 5 MG TABLET PO SCH (21:39)
[2017-11-04] MEDS: INSULIN DETEMIR 100 UNIT/ML 3 ML PEN SUBCUT SCH ×3 (01:18→21:58)
[2017-11-04] MEDS: HEPARIN SOD (PORCINE) 5,000 UNIT/ML 1 ML SYRINGE SUBCUT SCH ×3 (05:07→21:57)
[2017-11-04] MEDS: ALPRAZOLAM 0.25 MG TABLET PO SCH ×3 (05:07→21:55)
[2017-11-04] MEDS: HYDRALAZINE HCL 50 MG TABLET PO SCH ×3 (05:07→21:57)
[2017-11-04] MEDS: LABETALOL HCL 200 MG TABLET PO SCH ×3 (05:08→21:56)
[2017-11-04 09:39] LABS: ABSOLUTE BASOPHILS # (AUTO) 0.1 10^3/uL (0.0-0.2); ABSOLUTE EOSINOPHILS # (AUTO) 0.3 10^3/uL (0.0-0.6); ABSOLUTE LYMPHOCYTES (AUTO) 1.5 10^3/uL (0.5-4.7); ABSOLUTE MONOCYTES (AUTO) 0.5 10^3/uL (0.1-1.4); ABSOLUTE NEUT (AUTO) 3.4 10^3/uL (1.7-8.2); BASOPHILS % (AUTO) 1.3 % (0-2); EOSINOPHILS % (AUTO) 5.7 % (0-6); HEMATOCRIT 35.7 % (36.0-47.0); HEMOGLOBIN 11.6 g/dL (12.0-15.5); HGB HCT DIFFERENCE -0.9; LYMPHOCYTES % (AUTO) 25.6 % (13-45); MEAN CORPUSCULAR HEMOGLOBIN 29.3 pg (27.0-33.4); MEAN CORPUSCULAR HGB CONC 32.5 g/dL (32.0-36.0); MEAN CORPUSCULAR VOLUME 90 fl (80-97); RED BLOOD COUNT 3.96 10^6/uL (3.72-5.28); SEGMENTED NEUTROPHILS % (AUTO) 59.4 % (42-78); WHITE BLOOD COUNT 5.7 10^3/uL (4.0-10.5)
[2017-11-04] MEDS: OXYCODONE-ACETAMINOPHEN 5-325 MG TABLET PO SCH ×2 (10:06→21:56)
[2017-11-04] MEDS: OXYCODONE HCL IR 5 MG TABLET PO SCH ×2 (10:06→21:57)
[2017-11-04] MEDS: DESIPRAMINE HCL 25 MG TABLET PO SCH (10:07)
[2017-11-04] MEDS: NIFEDIPINE 30 MG TAB.ER.24 PO SCH ×2 (10:07→21:56)
[2017-11-04] MEDS: FLUTICASONE NASAL SPRAY 50 MCG/SPRY 120 SPRAY/16 GM NASL SCH (10:08)
[2017-11-04] MEDS: BUDESONIDE/FORMOTEROL 160-4.5 MCG 60 PUFF/6 GM MDI IH SCH ×2 (10:08→21:58)
[2017-11-04] MEDS: FUROSEMIDE 80 MG TABLET PO SCH ×3 (10:10→17:57)
[2017-11-04 11:17] LABS: ANION GAP 18 (5-19); BLOOD UREA NITROGEN 42 mg/dL (7-20); CALCIUM 8.9 mg/dL (8.4-10.2); CARBON DIOXIDE 28 mmol/L (22-30); CHLORIDE 92 mmol/L (98-107); CREATININE RESULT 8.22 mg/dL (0.52-1.25); GLUCOSE 229 mg/dL (75-110); POTASSIUM 5.2 mmol/L (3.6-5.0); SODIUM 138.3 mmol/L (137-145)
--- NOTE | 2017-11-04 13:13 | PDOC PROGRESS REPORT ---
Subjective Progress Note for:: 11/04/17 Subjective:: Patient was sitting up in bed the morning eating her breakfast when I came to see her. She says that she is doing better. She does not feel SOB. She does still have a little bit of a sore throat. Chest pain is no longer present. Reason For Visit: VOLUME OVERLOAD,ESRD Physical Exam Vital Signs: Temp Pulse Resp BP Pulse Ox 97.7 F 79 18 147/85 H 99 11/04/17 11:25 11/04/17 11:25 11/04/17 11:25 11/04/17 11:25 11/04/17 11:25 Intake & Output 11/03/17 11/04/17 11/05/17 06:59 06:59 06:59 Intake Total 1721 1720 222 Output Total 0 4600 0 Balance 1721 -2880 222 Weight 116.9 kg 115.8 kg General appearance: PRESENT: no acute distress, well-developed, well-nourished Head exam: PRESENT: atraumatic, normocephalic Mouth exam: PRESENT: moist, tongue midline Neck exam: PRESENT: full ROM. ABSENT: JVD Respiratory exam: PRESENT: clear to auscultation freddy. ABSENT: accessory muscle use, crackles, rales, rhonchi, wheezes Cardiovascular exam: PRESENT: RRR, +S1, +S2 GI/Abdominal exam: PRESENT: normal bowel sounds, soft. ABSENT: distended, organomegaly, tenderness Extremities exam: ABSENT: pedal edema, tenderness Musculoskeletal exam: PRESENT: normal inspection. ABSENT: deformity, tenderness Neurological exam: PRESENT: alert, awake, oriented to person, oriented to place , oriented to time, oriented to situation Psychiatric exam: PRESENT: appropriate affect, normal mood Skin exam: PRESENT: dry, intact, warm Results Laboratory Results: 11/04/17 09:09 11/04/17 10:24 11/04/17 11/04/17 11/04/17 09:09 09:09 10:24 WBC 5.7 RBC 3.96 Hgb 11.6 L Hct 35.7 L MCV 90 MCH 29.3 MCHC 32.5 RDW 17.0 H Plt Count 293 Seg Neutrophils % 59.4 Lymphocytes % 25.6 Monocytes % 8.0 Eosinophils % 5.7 Basophils % 1.3 Absolute Neutrophils 3.4 Absolute Lymphocytes 1.5 Absolute Monocytes 0.5 Absolute Eosinophils 0.3 Absolute Basophils 0.1 Sodium Cancelled 138.3 Potassium Cancelled 5.2 H Chloride Cancelled 92 L Carbon Dioxide Cancelled 28 Anion Gap Cancelled 18 BUN Cancelled 42 H Creatinine Cancelled 8.22 H Est GFR ( Amer) Cancelled 7 L Est GFR (Non-Af Amer) Cancelled 6 L Glucose Cancelled 229 H Calcium Cancelled 8.9 Impressions: Chest X-Ray 11/01/17 01:11 IMPRESSION: Moderate CHF pattern. Differential diagnosis includes multifocal pneumonia. 2010 [employer]- All Rights Reserved Assessment & Plan - Diagnosis (1) Acute on chronic systolic CHF (congestive heart failure) Plan: looks to be resolved, can continue pulling fluid off at outpatient dialysis when she is discharged. (2) ESRD (end stage renal disease) Plan: Going to do dialysis tomorrow if she is in the hospital. If she is out she will continue her regularly scheduled dialysis tomorrow morning. (3) Acute maxillary sinusitis Qualifiers: Plan: Dr. Singleton is currently handling the care of this (4) Anemia due to chronic kidney disease Plan: Currently stable, not requiring epogen (5) Diabetes mellitus type 1 Qualifiers: Diabetes mellitus complication status: with kidney complications Diabetes mellitus complication detail: with chronic kidney disease Chronic kidney disease stage: stage 5, not on chronic dialysis Qualified Code(s): E10.22 - Type 1 diabetes mellitus with diabetic chronic kidney disease Plan: variable (6) Hypertension Plan: controlled (7) Chest pain Plan: resolved
[2017-11-04] MEDS ORDERED: ACETAMINOPHEN 325 MG TABLET PO PRN (14:39)
[2017-11-04] MEDS: PAROXETINE HCL 20 MG TABLET PO SCH (17:57)
[2017-11-04] MEDS: MONTELUKAST SODIUM 10 MG TABLET PO SCH (18:13)
--- NOTE | 2017-11-04 21:56 | PDOC PROGRESS REPORT ---
Subjective Progress Note for:: 11/04/17 Subjective:: Patient was seen by the bedside, she has no new complaints other than fatigue Reason For Visit: VOLUME OVERLOAD,ESRD Physical Exam Vital Signs: Temp Pulse Resp BP Pulse Ox 98.4 F 84 20 151/79 H 100 11/04/17 19:51 11/04/17 19:51 11/04/17 19:51 11/04/17 19:51 11/04/17 19:51 Intake & Output 11/03/17 11/04/17 11/05/17 06:59 06:59 06:59 Intake Total 1721 1720 576 Output Total 0 4600 0 Balance 1721 -2880 576 Weight 116.9 kg 115.8 kg General appearance: PRESENT: no acute distress, well-developed, well-nourished Head exam: PRESENT: atraumatic, normocephalic Eye exam: PRESENT: conjunctiva pink, EOMI, PERRLA Ear exam: PRESENT: normal external ear exam Mouth exam: PRESENT: moist, tongue midline Neck exam: PRESENT: full ROM Respiratory exam: PRESENT: clear to auscultation freddy Cardiovascular exam: PRESENT: RRR, +S1, +S2 Pulses: PRESENT: normal dorsalis pedis pul, +2 pedal pulses bilateral Vascular exam: PRESENT: normal capillary refill GI/Abdominal exam: PRESENT: normal bowel sounds, soft Rectal exam: PRESENT: deferred Neurological exam: PRESENT: alert, awake, oriented to person, oriented to place , oriented to time, oriented to situation, CN II-XII grossly intact Psychiatric exam: PRESENT: appropriate affect, normal mood Skin exam: PRESENT: dry, intact, warm. ABSENT: cyanosis, rash Results Laboratory Results: 11/04/17 09:09 11/04/17 10:24 11/04/17 11/04/17 11/04/17 09:09 09:09 10:24 WBC 5.7 RBC 3.96 Hgb 11.6 L Hct 35.7 L MCV 90 MCH 29.3 MCHC 32.5 RDW 17.0 H Plt Count 293 Seg Neutrophils % 59.4 Lymphocytes % 25.6 Monocytes % 8.0 Eosinophils % 5.7 Basophils % 1.3 Absolute Neutrophils 3.4 Absolute Lymphocytes 1.5 Absolute Monocytes 0.5 Absolute Eosinophils 0.3 Absolute Basophils 0.1 Sodium Cancelled 138.3 Potassium Cancelled 5.2 H Chloride Cancelled 92 L Carbon Dioxide Cancelled 28 Anion Gap Cancelled 18 BUN Cancelled 42 H Creatinine Cancelled 8.22 H Est GFR ( Amer) Cancelled 7 L Est GFR (Non-Af Amer) Cancelled 6 L Glucose Cancelled 229 H Calcium Cancelled 8.9 Impressions: Chest X-Ray 11/01/17 01:11 IMPRESSION: Moderate CHF pattern. Differential diagnosis includes multifocal pneumonia. 2010 [employer]- All Rights Reserved Assessment & Plan - Diagnosis (1) Acute on chronic diastolic heart failure Is this a current diagnosis for this admission?: Yes (2) Diabetes mellitus type 1 with complications Is this a current diagnosis for this admission?: Yes (3) ESRD (end stage renal disease) on dialysis Is this a current diagnosis for this admission?: Yes (4) Acute sinusitis Qualifiers: Sinusitis location: maxillary Recurrence: recurrent Qualified Code(s): J01.01 - Acute recurrent maxillary sinusitis Is this a current diagnosis for this admission?: Yes
[2017-11-05] MEDS: ALPRAZOLAM 0.25 MG TABLET PO SCH ×2 (06:17→13:49)
[2017-11-05] MEDS: HYDRALAZINE HCL 50 MG TABLET PO SCH ×2 (06:18→13:49)
[2017-11-05] MEDS: HEPARIN SOD (PORCINE) 5,000 UNIT/ML 1 ML SYRINGE SUBCUT SCH ×2 (06:18→14:48)
[2017-11-05] MEDS: LABETALOL HCL 200 MG TABLET PO SCH ×2 (06:18→13:49)
[2017-11-05] MEDS ORDERED: HEPARIN SOD (PORCINE) 1,000 UNIT/ML 10 ML VIAL IV PRN (06:23)
[2017-11-05 08:07] LABS: HEMATOCRIT 32.9 % (36.0-47.0); HEMOGLOBIN 10.9 g/dL (12.0-15.5); HGB HCT DIFFERENCE -0.2; MEAN CORPUSCULAR HEMOGLOBIN 29.7 pg (27.0-33.4); MEAN CORPUSCULAR HGB CONC 33.1 g/dL (32.0-36.0); MEAN CORPUSCULAR VOLUME 90 fl (80-97); RED BLOOD COUNT 3.67 10^6/uL (3.72-5.28); RED CELL DISTRIBUTION WIDTH 16.7 % (11.5-14.0); WHITE BLOOD COUNT 6.4 10^3/uL (4.0-10.5)
[2017-11-05 08:35] LABS: BLOOD UREA NITROGEN 56 mg/dL (7-20); CREATININE RESULT 10.06 mg/dL (0.52-1.25); GLUCOSE 164 mg/dL (75-110)
[2017-11-05 08:47] LABS: ANION GAP 21 (5-19); CARBON DIOXIDE 25 mmol/L (22-30); CHLORIDE 90 mmol/L (98-107); SODIUM 135.7 mmol/L (137-145)
[2017-11-05] MEDS: DESIPRAMINE HCL 25 MG TABLET PO SCH (09:05)
[2017-11-05] MEDS: NIFEDIPINE 30 MG TAB.ER.24 PO SCH (09:05)
[2017-11-05] MEDS: BUDESONIDE/FORMOTEROL 160-4.5 MCG 60 PUFF/6 GM MDI IH SCH (09:05)
[2017-11-05] MEDS: FLUTICASONE NASAL SPRAY 50 MCG/SPRY 120 SPRAY/16 GM NASL SCH (09:05)
[2017-11-05] MEDS: FUROSEMIDE 80 MG TABLET PO SCH ×2 (09:05→13:49)
--- NOTE | 2017-11-05 10:37 | PDOC PROGRESS REPORT ---
Subjective Progress Note for:: 11/05/17 Reason For Visit: Patient seen on HD.Doing better today.Headache is better.Breathing is back to baseline. Denies any fever , chills. Physical Exam Vital Signs: Temp Pulse Resp BP Pulse Ox 98.1 F 76 20 156/77 H 100 11/05/17 08:44 11/05/17 08:44 11/05/17 08:44 11/05/17 08:44 11/05/17 08:44 Intake & Output 11/04/17 11/05/17 11/06/17 06:59 06:59 06:59 Intake Total 1720 976 Output Total 4600 0 Balance -2880 976 Weight 115.8 kg 116 kg General appearance: PRESENT: no acute distress Respiratory exam: PRESENT: clear to auscultation freddy. ABSENT: crackles, rhonchi Cardiovascular exam: PRESENT: RRR, +S1, +S2 GI/Abdominal exam: PRESENT: normal bowel sounds, soft. ABSENT: distended, organomegaly, tenderness Extremities exam: PRESENT: pedal edema Neurological exam: PRESENT: awake, oriented to person, oriented to place Results Laboratory Results: 11/05/17 07:53 11/05/17 07:53 11/04/17 11/05/17 11/05/17 10:24 07:53 07:53 WBC 6.4 RBC 3.67 L Hgb 10.9 L Hct 32.9 L MCV 90 MCH 29.7 MCHC 33.1 RDW 16.7 H Plt Count 300 Sodium 138.3 135.7 L Potassium 5.2 H 5.0 Chloride 92 L 90 L Carbon Dioxide 28 25 Anion Gap 18 21 H BUN 42 H 56 H Creatinine 8.22 H 10.06 H Est GFR ( Amer) 7 L 5 L Est GFR (Non-Af Amer) 6 L 5 L Glucose 229 H 164 H Calcium 8.9 9.0 Impressions: Chest X-Ray 11/01/17 01:11 IMPRESSION: Moderate CHF pattern. Differential diagnosis includes multifocal pneumonia. 2010 [employer]- All Rights Reserved Assessment & Plan - Diagnosis (1) ESRD (end stage renal disease) Plan: She is currently undergoing dialysis without any issues. Is being supervised to ensure safe and smooth procedure. Vital signs are stable.Will remove at least 3 l of fluid as tolerated. (2) Acute exacerbation of congestive heart failure Plan: Clinicaly much improved. Continue on with ultrafiltration on dialysis . We discussed again about compliance with diet and fluids.. (3) Acute maxillary sinusitis Qualifiers: Plan: Dr. Singleton is managing. (4) Anemia due to chronic kidney disease Plan: Stable. No indications for erythropoietin today. (6) Pneumonia Qualifiers:
[2017-11-05] MEDS: OXYCODONE-ACETAMINOPHEN 5-325 MG TABLET PO SCH (10:45)
[2017-11-05] MEDS: OXYCODONE HCL IR 5 MG TABLET PO SCH (10:45)
[2017-11-05] MEDS: INSULIN DETEMIR 100 UNIT/ML 3 ML PEN SUBCUT SCH (10:45)
[2017-11-05 13:57] VITALS: BP 130/82
--- NOTE | 2017-11-05 18:10 | PDOC DISCHARGE SUMMARY ---
General - Admit/Disc Date/PCP Admission Date/Primary Care Provider: 11/01/17 03:29 HILARY HERNANDEZ MD Discharge Date: 11/05/17 - Discharge Diagnosis (1) Acute on chronic diastolic heart failure Is this a current diagnosis for this admission?: Yes (2) Diabetes mellitus type 1 with complications Is this a current diagnosis for this admission?: Yes (3) ESRD (end stage renal disease) on dialysis Is this a current diagnosis for this admission?: Yes (4) Acute sinusitis Is this a current diagnosis for this admission?: Yes - Additional Information Resuscitation Status: Full Code Discharge Diet: Cardiac, Diabetic Discharge Activity: Activity As Tolerated, Balance Activity w/Rest, Weigh Daily Home Medications: Acetaminophen [Tylenol Extra Strength 500 mg Tablet] 500 mg PO Q4 11/01/17 Albuterol Sulfate [Proair HFA Inhalation Aerosol 8.5 gm MDI] 2 puff IN Q4HP PRN 11/01/17 Alprazolam [Xanax 0.25 mg Tablet] 0.25 mg PO Q8 11/01/17 Budesonide/Formoterol Fumarate [Symbicort 160-4.5 Mcg Inhaler] 2 puff IN Q12 10/08 Butalb/Acetaminophen/Caffeine [Fioricet (50-325-40 mg) Tablet] 1 tab PO Q4HP PRN 11/01/17 Desipramine HCl [Norpramin 25 mg Tablet] 25 mg PO DAILY 11/01/17 Furosemide [Lasix] 80 mg PO TID 11/01/17 Gabapentin Enacarbil [Horizant] 600 mg PO WSUPPER 11/01/17 Hydralazine HCl 100 mg PO Q8 11/01/17 Insulin Detemir [Levemir Insulin 100 units/mL] 30 unit SQ BID 11/01/17 Insulin Lispro [Humalog Kwikpen U-100] 0 unit SQ .SLIDING SCALE 11/01/17 Ipratropium/Albuterol Sulfate [Iprat-Albut 0.5-3(2.5) mg/3 ml] 3 ml NEB Q6 11/01 Labetalol HCl [Normodyne 200 mg Tablet] 200 mg PO Q8 11/01/17 Levetiracetam [Keppra 500 mg Tablet] 500 mg PO DAILY 11/01/17 Lisinopril [Prinivil 40 mg Tablet] 40 mg PO Q12 11/01/17 Meclizine HCl [Antivert 25 mg Tablet] 25 mg PO TIDP PRN 11/01/17 Mometasone Furoate [Nasonex] 2 spray NASL DAILY 11/01/17 Montelukast Sodium [Singulair] 10 mg PO QPM 11/01/17 Nifedipine [Nifedipine ER] 60 mg PO Q12 11/01/17 Omeprazole 40 mg PO DAILY 11/01/17 Paroxetine HCl [Paxil] 40 mg PO QAM 11/01/17 Saccharomyces Boulardii [Florastor] 250 mg PO Q12 11/01/17 Topiramate [Topamax] 50 mg PO Q12 11/01/17 History of Present Illness History of Present Illness: Patient 32-year-old with end-stage renal disease on maintenance hemodialysis he came to emergency room because of shortness of breath chest x-ray was done she was found to have acute pulmonary edema. She has multiple hospitalization for similar presentation, usually she will present with acute pulmonary edema usually pneumonia is suspected but soon after hemodialysis she feels much better suggesting that it is more likely to be pulmonary edema, partly due to chronic diastolic dysfunction of the left ventricle and noncompliance with diet and fluid restriction. She was dialyzed this morning when she presented and she is already feeling better. Hospital Course Hospital Course: She was admitted for the management of acute pulmonary edema, partly due to acute on chronic diastolic heart failure, poor compliance to dietary regimen of low salt and water restriction. She was seen by nephrology she was dialyzed on this admission she also has sinusitis. Physical Exam Vital Signs: Temp Pulse Resp BP Pulse Ox 98.1 F 76 20 156/77 H 100 11/05/17 13:35 11/05/17 13:35 11/05/17 13:35 11/05/17 13:35 11/05/17 13:35 Intake & Output 11/04/17 11/05/17 11/06/17 06:59 06:59 06:59 Intake Total 1720 976 60 Output Total 4600 0 3000 Balance -2880 976 -2940 Weight 115.8 kg 116 kg General appearance: PRESENT: no acute distress, well-developed, well-nourished Head exam: PRESENT: atraumatic, normocephalic Eye exam: PRESENT: conjunctiva pink, EOMI, PERRLA Ear exam: PRESENT: normal external ear exam Mouth exam: PRESENT: moist, tongue midline Neck exam: PRESENT: full ROM Respiratory exam: PRESENT: clear to auscultation freddy Cardiovascular exam: PRESENT: RRR, +S1, +S2 Pulses: PRESENT: normal dorsalis pedis pul, +2 pedal pulses bilateral Vascular exam: PRESENT: normal capillary refill GI/Abdominal exam: PRESENT: normal bowel sounds, soft Rectal exam: PRESENT: deferred Neurological exam: PRESENT: alert, awake, oriented to person, oriented to place , oriented to time, oriented to situation, CN II-XII grossly intact Psychiatric exam: PRESENT: appropriate affect, normal mood Skin exam: PRESENT: dry, intact, warm Results Laboratory Results: 11/05/17 07:53 11/05/17 07:53 11/05/17 11/05/17 07:53 07:53 WBC 6.4 RBC 3.67 L Hgb 10.9 L Hct 32.9 L MCV 90 MCH 29.7 MCHC 33.1 RDW 16.7 H Plt Count 300 Sodium 135.7 L Potassium 5.0 Chloride 90 L Carbon Dioxide 25 Anion Gap 21 H BUN 56 H Creatinine 10.06 H Est GFR ( Amer) 5 L Est GFR (Non-Af Amer) 5 L Glucose 164 H Calcium 9.0 Impressions: Chest X-Ray 11/01/17 01:11 IMPRESSION: Moderate CHF pattern. Differential diagnosis includes multifocal pneumonia. 2011 [employer]- All Rights Reserved
== END 2017-11-05 15:14 | disposition home or self-care (01) | DRG 291 ==
LOC: ER 01:04 → UNDOADMIN 03:29 → EH 03:29 → UNDOADMIN 09:38 → EH 09:38 → 3S 12:13
PROVIDERS: ADMIT Internal Medicine; ATTEND Internal Medicine
PROC: 5A1D70Z Performance of Urinary Filtration, Intermittent, Less than 6 Hours Per Day (ICD-10-PCS; principal; 2017-11-01)
PROC: 5A09457 Assistance with Respiratory Ventilation, 24-96 Consecutive Hours, Continuous Positive Airway Pressure (ICD-10-PCS; 2017-11-01)
DX: I13.2 Hypertensive heart and chronic kidney disease with heart failure and with stage 5 chronic kidney disease, or end stage renal disease (principal); N18.6 End stage renal disease; I50.33 Acute on chronic diastolic (congestive) heart failure; Z68.41 Body mass index [BMI] 40.0-44.9, adult; E10.22 Type 1 diabetes mellitus with diabetic chronic kidney disease; E10.40 Type 1 diabetes mellitus with diabetic neuropathy, unspecified; E10.319 Type 1 diabetes mellitus with unspecified diabetic retinopathy without macular edema; I25.10 Atherosclerotic heart disease of native coronary artery without angina pectoris; J45.909 Unspecified asthma, uncomplicated; J01.00 Acute maxillary sinusitis, unspecified; L40.9 Psoriasis, unspecified; F32.9 Major depressive disorder, single episode, unspecified; E66.01 Morbid (severe) obesity due to excess calories; D63.1 Anemia in chronic kidney disease; Z79.4 Long term (current) use of insulin; Z91.19 Patient's noncompliance with other medical treatment and regimen; Z99.2 Dependence on renal dialysis; Z90.49 Acquired absence of other specified parts of digestive tract; Z79.899 Other long term (current) drug therapy; Z88.6 Allergy status to analgesic agent; Z88.1 Allergy status to other antibiotic agents; Z88.3 Allergy status to other anti-infective agents
CPT/HCPCS: 36415; 71010; 80048; 82803; 82962; 83880; 84484; 85025; 85027; 93005; 93010; 94640; 94660; 99291; J1644; J1815; J3490; J7620; S0119

== ENCOUNTER → 2017-11-13 | Outpatient (CLI) | payer MEDICARE, MEDICAID | LOC: RAD 14:58 | PROVIDERS: ATTEND Pain Medicine Pain Medicine | DX: M54.17 Radiculopathy, lumbosacral region (principal); M54.9 Dorsalgia, unspecified ==

== ENCOUNTER 2017-11-28 21:04 | Inpatient (IN) | payer MEDICARE, MEDICAID ==
[2017-11-28] MEDS ORDERED: ONDANSETRON HCL INJ/PF 4 MG/2 ML SDV IV ONE (21:24)
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
[2017-11-28 21:42] LABS: RED BLOOD COUNT 3.62 10^6/uL (3.72-5.28); WHITE BLOOD COUNT 13.9 10^3/uL (4.0-10.5)
[2017-11-28 21:43] LABS: EOSINOPHILS % (AUTO) 3.8 % (0-6); HEMATOCRIT 32.2 % (36.0-47.0); HEMOGLOBIN 10.6 g/dL (12.0-15.5); LYMPHOCYTES % (AUTO) 8.4 % (13-45); MEAN CORPUSCULAR HEMOGLOBIN 29.2 pg (27.0-33.4); MEAN CORPUSCULAR HGB CONC 32.8 g/dL (32.0-36.0); MEAN CORPUSCULAR VOLUME 89 fl (80-97); MONOCYTES % (AUTO) 4.1 % (3-13); PLATELET COUNT 385 10^3/uL (150-450); RED CELL DISTRIBUTION WIDTH 16.5 % (11.5-14.0); SEGMENTED NEUTROPHILS % (AUTO) 82.7 % (42-78)
[2017-11-28 21:44] LABS: ABSOLUTE BASOPHILS # (AUTO) 0.1 10^3/uL (0.0-0.2); ABSOLUTE EOSINOPHILS # (AUTO) 0.5 10^3/uL (0.0-0.6); ABSOLUTE LYMPHOCYTES (AUTO) 1.2 10^3/uL (0.5-4.7); ABSOLUTE MONOCYTES (AUTO) 0.6 10^3/uL (0.1-1.4); ABSOLUTE NEUT (AUTO) 11.5 10^3/uL (1.7-8.2); TOTAL CELLS COUNTED % (AUTO) 100 %
[2017-11-28 22:01] LABS: BLOOD UREA NITROGEN 73 mg/dL (7-20); CALCIUM 9.2 mg/dL (8.4-10.2); CHLORIDE 96 mmol/L (98-107); GLUCOSE 151 mg/dL (75-110); LIPASE 226.7 U/L (23-300)
--- NOTE | 2017-11-28 22:04 | RADIOLOGY REPORT (SQ) ---
EXAM DESCRIPTION: CHEST SINGLE VIEW COMPLETED DATE/TIME: 11/28/2017 9:53 pm REASON FOR STUDY: sob COMPARISON: 11/01/2017 EXAM PARAMETERS: NUMBER OF VIEWS: One view. TECHNIQUE: Single frontal radiographic view of the chest acquired. RADIATION DOSE: NA LIMITATIONS: None. FINDINGS: LUNGS AND PLEURA: Diffuse patchy alveolar opacities throughout both lungs somewhat perihil ar. MEDIASTINUM AND HILAR STRUCTURES: No masses. Contour normal. HEART AND VASCULAR STRUCTURES: Heart enlarged. BONES: No acute findings. HARDWARE: None in the chest. OTHER: No other significant finding. IMPRESSION: Congestive heart failure and pulmonary edema. TECHNICAL DOCUMENTATION: JOB ID: [id number] [employer]- All Rights Reserved
[2017-11-28 22:09] LABS: CARBON DIOXIDE 20 mmol/L (22-30); SODIUM 136.5 mmol/L (137-145)
--- NOTE | 2017-11-28 22:12 | EKG REPORT ---
SEVERITY:- ABNORMAL ECG - SINUS RHYTHM FIRST DEGREE AV BLOCK LEFT ANTERIOR FASCICULAR BLOCK PROBABLE LEFT VENTRICULAR HYPERTROPHY PROLONGED QT INTERVAL : Confirmed by: Daniela Lemons 28-Nov-2017 22:11:44
[2017-11-28 22:13] LABS: TROPONIN I 0.013 ng/mL
[2017-11-28 22:13] LABS: VENOUS BLOOD BASE EXCESS -3.3 mmol/L; VENOUS BLOOD HCO3 20.9 mmol/L (20-32); VENOUS BLOOD PCO2 34.7 mmHg (35-63); VENOUS BLOOD PH 7.4 (7.30-7.42)
[2017-11-28 22:15] LABS: ANION GAP 21 (5-19)
[2017-11-28 22:16] LABS: POTASSIUM 6.8 mmol/L (3.6-5.0)
[2017-11-28] MEDS ORDERED: INSULIN REG, HUMAN 100 UNIT/ML 3 ML VIAL (PYX) IV ONE (22:30)
[2017-11-28] MEDS ORDERED: DEXTROSE 50%-WATER 25 GM/50 ML DISP.SYRIN IV ONE (22:30)
[2017-11-28] MEDS ORDERED: SODIUM POLYSTYRENE SULFONATE 15 GM/60 ML PO ONE (22:33)
[2017-11-28] MEDS ORDERED: IPRATROPIUM/ALBUTEROL 0.5-2.5 MG/3 ML AMPUL NEB PRN (22:44)
[2017-11-28] MEDS ORDERED: ACETAMINOPHEN 325 MG TABLET PO PRN (22:44)
[2017-11-28] MEDS ORDERED: CALCIUM GLUCONATE 1000 MG/10 ML INJ IV ONE (22:49)
[2017-11-29 01:09] LABS: BLOOD UREA NITROGEN 77 mg/dL (7-20); CARBON DIOXIDE 21 mmol/L (22-30); CHLORIDE 96 mmol/L (98-107); GLUCOSE 190 mg/dL (75-110)
[2017-11-29 01:17] LABS: SODIUM 137.2 mmol/L (137-145)
[2017-11-29 01:24] LABS: ANION GAP 20 (5-19); POTASSIUM 5.9 mmol/L (3.6-5.0)
[2017-11-29 04:54] LABS: ABSOLUTE BASOPHILS # (AUTO) 0.1 10^3/uL (0.0-0.2); ABSOLUTE EOSINOPHILS # (AUTO) 0.7 10^3/uL (0.0-0.6); ABSOLUTE LYMPHOCYTES (AUTO) 1.8 10^3/uL (0.5-4.7); ABSOLUTE MONOCYTES (AUTO) 0.5 10^3/uL (0.1-1.4); ABSOLUTE NEUT (AUTO) 7.9 10^3/uL (1.7-8.2); BASOPHILS % (AUTO) 1.2 % (0-2); EOSINOPHILS % (AUTO) 6.7 % (0-6); HEMATOCRIT 29.5 % (36.0-47.0); HEMOGLOBIN 9.5 g/dL (12.0-15.5); LYMPHOCYTES % (AUTO) 16.1 % (13-45); MEAN CORPUSCULAR HEMOGLOBIN 28.7 pg (27.0-33.4); MEAN CORPUSCULAR HGB CONC 32.2 g/dL (32.0-36.0); MEAN CORPUSCULAR VOLUME 89 fl (80-97); MONOCYTES % (AUTO) 4.4 % (3-13); PLATELET COUNT 344 10^3/uL (150-450); RED BLOOD COUNT 3.31 10^6/uL (3.72-5.28); RED CELL DISTRIBUTION WIDTH 16.1 % (11.5-14.0); SEGMENTED NEUTROPHILS % (AUTO) 71.6 % (42-78); TOTAL CELLS COUNTED % (AUTO) 100 %; WHITE BLOOD COUNT 11.1 10^3/uL (4.0-10.5)
[2017-11-29 05:15] LABS: ANION GAP 18 (5-19); BLOOD UREA NITROGEN 80 mg/dL (7-20); CALCIUM 8.9 mg/dL (8.4-10.2); CARBON DIOXIDE 22 mmol/L (22-30); CHLORIDE 99 mmol/L (98-107); GLUCOSE 128 mg/dL (75-110); PHOSPHORUS 9.6 mg/dL (2.5-4.5)
[2017-11-29 05:19] LABS: POTASSIUM 6.1 mmol/L (3.6-5.0)
[2017-11-29] MEDS: HEPARIN SOD (PORCINE) 5,000 UNIT/ML 1 ML SYRINGE SUBCUT SCH ×3 (06:47→21:48)
[2017-11-29] MEDS ORDERED: HEPARIN SOD (PORCINE) 1,000 UNIT/ML 10 ML VIAL IV PRN (10:38)
[2017-11-29] MEDS ORDERED: ACETAMINOPHEN 325 MG TABLET PO PRN (12:29)
[2017-11-29] MEDS ORDERED: IPRATROPIUM/ALBUTEROL 0.5-2.5 MG/3 ML AMPUL NEB PRN (14:00)
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
[2017-11-29] MEDS ORDERED: MECLIZINE HCL 25 MG TABLET PO PRN (21:29)
[2017-11-29] MEDS ORDERED: (PENDING PHARMACY ID) (Oxycodone Hcl/Acetaminophen [Oxycodon-Acetaminophen 7.5-325] 1 TAB) PO PRN (21:29)
[2017-11-29] MEDS ORDERED: METHOCARBAMOL 750 MG TABLET PO PRN (21:29)
[2017-11-29] MEDS ORDERED: BUTALB/ACETAMINOPHEN/CAFFEINE 1 TAB EACH PO PRN (21:29)
[2017-11-29] MEDS ORDERED: (PENDING PHARMACY ID) (Gabapentin Enacarbil [Horizant] 300 MG) PO SCH (21:30)
--- NOTE | 2017-11-29 21:36 | PDOC H&P ---
History of Present Illness Admission Date/PCP: 11/28/17 23:21 HILARY HERNANDEZ MD History of Present Illness: Patient 32-year-old female with end-stage renal disease on maintenance hemodialysis she presented to the emergency room in the usual fashion with progressive shortness of breath, chest x-ray showed pulmonary edema, she was hemodialyzed this morning, now she feels better. She was just discharged from this hospital on 11/05/2017 roughly 3 weeks ago. Past Medical History Cardiac Medical History: Reports: Congestive Heart Failure, Coronary Artery Disease, Hypertension, Heart Murmur Pulmonary Medical History: Reports: Asthma, Pneumonia Neurological Medical History: Reports: Migraine, Seizures Endocrine Medical History: Reports: Diabetes Mellitus Type 1, Diabetes Mellitus Type 2 Renal/ Medical History: Reports: End Stage Renal Disease - On hemodialysis MWF Malignancy Medical History: GI Medical History: Musculoskeltal Medical History: Skin Medical History: Reports: Psoriasis Psychiatric Medical History: Reports: Depression Hematology: Reports: Anemia Infectious Medical History: Past Surgical History Past Surgical History: Reports: Appendectomy, Cholecystectomy, Vascular Surgery - Left arm fistula; Perm Cath -Right Chest, right arm fistula Social History Lives with: Family Smoking Status: Never Smoker Frequency of Alcohol Use: None Hx Recreational Drug Use: No Drugs: None Hx Prescription Drug Abuse: No - Advance Directive Resuscitation Status: Full Code Family History Family History: Reviewed & Not Pertinent Parental Family History Reviewed: Yes Children Family History Reviewed: Yes Sibling(s) Family History Reviewed.: Yes Medication/Allergy Home Medications: Albuterol Sulfate [Proair HFA Inhalation Aerosol 8.5 gm MDI] 2 puff IN Q4HP PRN 11/01/17 Alprazolam [Xanax 0.25 mg Tablet] 0.25 mg PO Q8 11/01/17 Budesonide/Formoterol Fumarate [Symbicort 160-4.5 Mcg Inhaler] 2 puff IN Q12 10/08 Butalb/Acetaminophen/Caffeine [Fioricet (50-325-40 mg) Tablet] 1 tab PO Q4HP PRN 11/01/17 Furosemide [Lasix] 80 mg PO TID 11/01/17 Gabapentin Enacarbil [Horizant] 300 mg PO WSUPPER 11/01/17 Hydralazine HCl 100 mg PO Q8 11/01/17 Insulin Detemir [Levemir Insulin 100 units/mL] 30 unit SQ BID 11/01/17 Insulin Lispro [Humalog Kwikpen U-100] 0 unit SQ .SLIDING SCALE 11/01/17 Ipratropium/Albuterol Sulfate [Iprat-Albut 0.5-3(2.5) mg/3 ml] 3 ml NEB Q6 11/01 Labetalol HCl [Normodyne 200 mg Tablet] 200 mg PO Q8 11/01/17 Paroxetine HCl [Paxil] 40 mg PO QAM 11/01/17 Buprenorphine HCl [Belbuca] 300 mcg BUCCAL Q12 11/29/17 Meclizine HCl [Antivert 25 mg Tablet] 25 mg PO Q8HP PRN 11/29/17 Methocarbamol [Methocarbamol] 1 tab PO DAILY PRN 11/29/17 Oxycodone HCl/Acetaminophen [Oxycodon-Acetaminophen 7.5-325] 1 tab PO BIDP PRN 11/29/17 Sodium Polystyrene Sulfon/Sorb [Kionex 15 gm/60 ml Suspension] 15 gm PO DAILY Allergies/Adverse Reactions: aspirin [Aspirin] Allergy (Verified 10/02/17 15:04) Anaphylaxis ciprofloxacin [From Cipro] Allergy (Verified 10/02/17 15:04) Anaphylaxis clindamycin [Clindamycin] Allergy (Verified 10/02/17 15:04) hydrocodone [From Vicodin] Allergy (Verified 10/02/17 15:04) ibuprofen [From Motrin] Allergy (Verified 10/02/17 15:04) Anaphylaxis lidocaine [From Lidoderm] Allergy (Verified 10/02/17 15:04) Generalized rash tramadol HCl [From Ultram] Allergy (Verified 10/02/17 15:04) vancomycin [Vancomycin] Allergy (Verified 10/02/17 15:04) Shortness of Breath nitroglycerin [Nitroglycerin] Adverse Reaction (Intermediate, Verified 10/02/17 15:04) Joint pain Review of Systems Constitutional: ABSENT: chills, fever(s), headache(s), weight gain, weight loss Eyes: ABSENT: visual disturbances Ears: ABSENT: hearing changes Cardiovascular: PRESENT: dyspnea on exertion Respiratory: PRESENT: as per HPI, dyspnea, sputum, other Gastrointestinal: ABSENT: abdominal pain, constipation, diarrhea, hematemesis, hematochezia, nausea, vomiting Genitourinary: ABSENT: dysuria, hematuria Musculoskeletal: ABSENT: joint swelling Integumentary: ABSENT: rash, wounds Neurological: ABSENT: abnormal gait, abnormal speech, confusion, dizziness, focal weakness, syncope Psychiatric: ABSENT: anxiety, depression, homidical ideation, suicidal ideation Endocrine: ABSENT: cold intolerance, heat intolerance, menstrual abnormalities, polydipsia, polyuria Hematologic/Lymphatic: ABSENT: easy bleeding, easy bruising, lymphadenopathy Physical Exam Vital Signs: Temp Pulse Resp BP Pulse Ox 99.2 F 84 16 179/95 H 94 11/29/17 19:57 11/29/17 19:57 11/29/17 19:57 11/29/17 19:57 11/29/17 19:57 Intake & Output 11/28/17 11/29/17 11/30/17 06:59 06:59 06:59 Intake Total 30 Output Total 5100 Balance -5070 Weight 112 kg General appearance: PRESENT: no acute distress, well-developed, well-nourished Head exam: PRESENT: atraumatic, normocephalic Eye exam: PRESENT: conjunctiva pink, EOMI, PERRLA. ABSENT: scleral icterus Ear exam: PRESENT: normal external ear exam Mouth exam: PRESENT: moist, tongue midline Neck exam: PRESENT: full ROM. ABSENT: carotid bruit, JVD, lymphadenopathy, thyromegaly Respiratory exam: PRESENT: clear to auscultation freddy Cardiovascular exam: PRESENT: RRR, +S1, +S2. ABSENT: diastolic murmur, rubs, systolic murmur Pulses: PRESENT: normal dorsalis pedis pul, +2 pedal pulses bilateral Vascular exam: PRESENT: normal capillary refill GI/Abdominal exam: PRESENT: normal bowel sounds, soft. ABSENT: distended, guarding, mass, organolmegaly, rebound, tenderness Rectal exam: PRESENT: deferred Neurological exam: PRESENT: alert, awake, oriented to person, oriented to place , oriented to time, oriented to situation, CN II-XII grossly intact. ABSENT: motor sensory deficit Psychiatric exam: PRESENT: appropriate affect, normal mood. ABSENT: homicidal ideation, suicidal ideation Skin exam: PRESENT: dry, intact, warm. ABSENT: cyanosis, rash Results Laboratory Results: 11/29/17 04:40 11/29/17 04:40 01/07/0911/29/17 11/29/17 00:05 04:40 04:40 WBC 11.1 H RBC 3.31 L Hgb 9.5 L Hct 29.5 L MCV 89 MCH 28.7 MCHC 32.2 RDW 16.1 H Plt Count 344 Seg Neutrophils % 71.6 Lymphocytes % 16.1 Monocytes % 4.4 Eosinophils % 6.7 H Basophils % 1.2 Absolute Neutrophils 7.9 Absolute Lymphocytes 1.8 Absolute Monocytes 0.5 Absolute Eosinophils 0.7 H Absolute Basophils 0.1 Sodium 137.2 139.0 Potassium 5.9 H 6.1 H* Chloride 96 L 99 Carbon Dioxide 21 L 22 Anion Gap 20 H 18 BUN 77 H 80 H Creatinine 11.28 H 11.92 H Est GFR ( Amer) 5 L 4 L Est GFR (Non-Af Amer) 4 L 4 L Glucose 190 H 128 H Calcium 9.0 8.9 Phosphorus 9.6 H Magnesium 2.4 H 11/29/17 11/29/17 04:40 10:58 CK-MB (CK-2) 0.73 0.91 Impressions: Chest X-Ray 11/28/17 21:23 IMPRESSION: Congestive heart failure and pulmonary edema. Assessment & Plan - Diagnosis (1) Acute pulmonary edema Is this a current diagnosis for this admission?: Yes (2) ESRD (end stage renal disease) on dialysis Is this a current diagnosis for this admission?: Yes
[2017-11-29] MEDS: BUDESONIDE/FORMOTEROL 160-4.5 MCG 60 PUFF/6 GM MDI IH SCH (21:46)
[2017-11-29] MEDS: INSULIN DETEMIR 100 UNIT/ML 3 ML PEN SUBCUT SCH (21:47)
[2017-11-29] MEDS: LABETALOL HCL 200 MG TABLET PO SCH (21:51)
[2017-11-29] MEDS ORDERED: BUPRENORPHINE HCL 300 MCG BUCCAL SCH (22:00)
[2017-11-29] MEDS ORDERED: ALBUTEROL SULFATE HFA (90 MCG/PUFF) 200 PUFF/8.5 GM MDI IH PRN (22:00)
[2017-11-30] MEDS ORDERED: OXYCODONE HCL IR 5 MG TABLET PO PRN (02:07)
[2017-11-30] MEDS ORDERED: HYDRALAZINE HCL 50 MG TABLET PO ONE (02:15)
[2017-11-30] MEDS: IPRATROPIUM/ALBUTEROL 0.5-2.5 MG/3 ML AMPUL NEB SCH ×4 (03:26→20:31)
[2017-11-30 05:12] LABS: ABSOLUTE BASOPHILS # (AUTO) 0.1 10^3/uL (0.0-0.2); ABSOLUTE EOSINOPHILS # (AUTO) 0.8 10^3/uL (0.0-0.6); ABSOLUTE LYMPHOCYTES (AUTO) 2.1 10^3/uL (0.5-4.7); ABSOLUTE MONOCYTES (AUTO) 0.5 10^3/uL (0.1-1.4); BASOPHILS % (AUTO) 1.4 % (0-2); HEMATOCRIT 32.7 % (36.0-47.0); LYMPHOCYTES % (AUTO) 27.3 % (13-45); MEAN CORPUSCULAR HEMOGLOBIN 30.1 pg (27.0-33.4); MEAN CORPUSCULAR HGB CONC 33.7 g/dL (32.0-36.0); MEAN CORPUSCULAR VOLUME 89 fl (80-97); PLATELET COUNT 376 10^3/uL (150-450); RED BLOOD COUNT 3.67 10^6/uL (3.72-5.28); RED CELL DISTRIBUTION WIDTH 16.3 % (11.5-14.0); SEGMENTED NEUTROPHILS % (AUTO) 53.3 % (42-78); TOTAL CELLS COUNTED % (AUTO) 100 %; WHITE BLOOD COUNT 7.6 10^3/uL (4.0-10.5)
[2017-11-30] MEDS: LABETALOL HCL 200 MG TABLET PO SCH ×3 (05:20→21:55)
[2017-11-30] MEDS: HEPARIN SOD (PORCINE) 5,000 UNIT/ML 1 ML SYRINGE SUBCUT SCH ×3 (05:25→22:42)
[2017-11-30 06:40] LABS: ANION GAP 19 (5-19); BLOOD UREA NITROGEN 52 mg/dL (7-20); CALCIUM 9.1 mg/dL (8.4-10.2); CARBON DIOXIDE 25 mmol/L (22-30); CHLORIDE 96 mmol/L (98-107); GLUCOSE 113 mg/dL (75-110); PHOSPHORUS 9.4 mg/dL (2.5-4.5); POTASSIUM 4.7 mmol/L (3.6-5.0); SODIUM 140.2 mmol/L (137-145)
[2017-11-30] MEDS ORDERED: PAROXETINE HCL 20 MG TABLET PO SCH ×2 (08:00→22:00)
[2017-11-30] MEDS: INSULIN DETEMIR 100 UNIT/ML 3 ML PEN SUBCUT SCH ×2 (09:29→22:39)
[2017-11-30] MEDS: FUROSEMIDE 80 MG TABLET PO SCH ×3 (09:30→17:22)
[2017-11-30] MEDS: BUDESONIDE/FORMOTEROL 160-4.5 MCG 60 PUFF/6 GM MDI IH SCH ×2 (09:30→21:53)
[2017-11-30] MEDS: HYDRALAZINE HCL 50 MG TABLET PO SCH ×2 (09:30→17:22)
[2017-11-30] MEDS: OXYCODONE-ACETAMINOPHEN 5-325 MG TABLET PO PRN ×2 (09:32→20:37)
--- NOTE | 2017-11-30 15:59 | PDOC PROGRESS REPORT ---
Subjective Progress Note for:: 11/30/17 Subjective:: Patient was laying comfortably in her bed. Her only complaint was her back pain. She recently was approved to take her home pain medications. Lately blood pressures have been higher in the 170s to 180s. She denies headache, chest pain , or SOB. Reason For Visit: CHEST PAIN,ESRD,HYPERKELEMIA Physical Exam Vital Signs: Temp Pulse Resp BP Pulse Ox 98.1 F 77 18 183/78 H 100 11/30/17 11:39 11/30/17 14:00 11/30/17 11:39 11/30/17 11:39 11/30/17 11:39 Intake & Output 11/29/17 11/30/17 12/01/17 06:59 06:59 06:59 Intake Total 273 250 Output Total 5100 Balance -4827 250 Weight 112.1 kg General appearance: PRESENT: no acute distress, well-developed, well-nourished Mouth exam: PRESENT: moist, tongue midline Neck exam: PRESENT: full ROM. ABSENT: JVD Respiratory exam: PRESENT: clear to auscultation freddy. ABSENT: accessory muscle use, chest wall tenderness, crackles, rales, rhonchi, wheezes Cardiovascular exam: PRESENT: RRR, +S1, +S2 GI/Abdominal exam: PRESENT: normal bowel sounds, soft. ABSENT: organomegaly, tenderness Extremities exam: ABSENT: pedal edema, tenderness Musculoskeletal exam: PRESENT: normal inspection. ABSENT: tenderness Neurological exam: PRESENT: alert, awake, oriented to person, oriented to place , oriented to time, oriented to situation Psychiatric exam: PRESENT: appropriate affect, normal mood Skin exam: PRESENT: dry, intact, warm Results Laboratory Results: 11/30/17 04:15 11/30/17 06:05 11/30/17 11/30/17 11/30/17 04:15 04:15 06:05 WBC 7.6 RBC 3.67 L Hgb 11.0 L Hct 32.7 L MCV 89 MCH 30.1 MCHC 33.7 RDW 16.3 H Plt Count 376 Seg Neutrophils % 53.3 Lymphocytes % 27.3 Monocytes % 7.0 Eosinophils % 11.0 H Basophils % 1.4 Absolute Neutrophils 4.0 Absolute Lymphocytes 2.1 Absolute Monocytes 0.5 Absolute Eosinophils 0.8 H Absolute Basophils 0.1 Sodium Cancelled 140.2 Potassium Cancelled 4.7 Chloride Cancelled 96 L Carbon Dioxide Cancelled 25 Anion Gap Cancelled 19 BUN Cancelled 52 H Creatinine Cancelled 9.58 H Est GFR ( Amer) Cancelled 6 L Est GFR (Non-Af Amer) Cancelled 5 L Glucose Cancelled 113 H Calcium Cancelled 9.1 Phosphorus Cancelled 9.4 H 11/29/17 11/29/17 04:40 10:58 CK-MB (CK-2) 0.73 0.91 Impressions: Chest X-Ray 11/28/17 21:23 IMPRESSION: Congestive heart failure and pulmonary edema. Assessment & Plan - Diagnosis (1) Hyperkalemia Plan: Currently improved and stable after having dialysis yesterday. (2) Acute exacerbation of congestive heart failure Plan: Has improved after several liters were removed yesterday on dialysis. She currently is not short of breath on 2L of oxygen via [place]. Will look to try her off of the oxygen. (3) ESRD (end stage renal disease) Plan: Will continue dialysis as normal tomorrow. (4) Hypertension Qualifiers: Hypertension type: essential hypertension Qualified Code(s): I10 - Essential (primary) hypertension Plan: Will start her on 5mg of amlodipine qhs to help with the bp while in the hospital.
[2017-11-30] MEDS: GABAPENTIN ENACARBIL 300 MG PO SCH (16:57)
[2017-11-30] MEDS ORDERED: INSULIN LISPRO 100 UNIT/ML 3 ML VIAL SUBCUT PRN (19:12)
[2017-11-30] MEDS ORDERED: DEXTROSE 50%-WATER SYRINGE 12.5 GM/25 ML DOSE IV PRN (19:12)
[2017-11-30] MEDS ORDERED: GLUCAGON,HUMAN RECOMB 1 MG INJ IM PRN (19:12)
[2017-11-30] MEDS ORDERED: DEXTROSE 50%-WATER SYRINGE 25 GM/50 ML DOSE IV PRN (19:12)
[2017-11-30] MEDS ORDERED: DEXTROSE 40% GEL 15 GM TUBE X 2 PO PRN (19:12)
[2017-11-30] MEDS ORDERED: DEXTROSE 40% GEL 15 GM TUBE PO PRN (19:12)
--- NOTE | 2017-11-30 20:36 | PDOC PROGRESS REPORT ---
Subjective Progress Note for:: 11/30/17 Subjective:: Patient was seen by the bedside she has no new complaints Reason For Visit: CHEST PAIN,ESRD,HYPERKELEMIA Physical Exam Vital Signs: Temp Pulse Resp BP Pulse Ox 97.9 F 79 18 179/80 H 100 11/30/17 15:12 11/30/17 19:00 11/30/17 15:12 11/30/17 15:12 11/30/17 15:12 Intake & Output 11/29/17 11/30/17 12/01/17 06:59 06:59 06:59 Intake Total 273 630 Output Total 5100 Balance -4892 630 Weight 112.1 kg 112.1 kg General appearance: PRESENT: no acute distress, well-developed, well-nourished Head exam: PRESENT: atraumatic, normocephalic Eye exam: PRESENT: conjunctiva pink, EOMI, PERRLA Ear exam: PRESENT: normal external ear exam Mouth exam: PRESENT: moist, tongue midline Neck exam: PRESENT: full ROM Respiratory exam: PRESENT: clear to auscultation freddy Cardiovascular exam: PRESENT: RRR, +S1, +S2 Pulses: PRESENT: normal dorsalis pedis pul, +2 pedal pulses bilateral Vascular exam: PRESENT: normal capillary refill GI/Abdominal exam: PRESENT: normal bowel sounds, soft Rectal exam: PRESENT: deferred Neurological exam: PRESENT: alert, awake, oriented to person, oriented to place , oriented to time, oriented to situation, CN II-XII grossly intact Psychiatric exam: PRESENT: appropriate affect, normal mood Skin exam: PRESENT: dry, intact, warm. ABSENT: cyanosis, rash Results Laboratory Results: 11/30/17 04:15 11/30/17 06:05 11/30/17 11/30/17 11/30/17 04:15 04:15 06:05 WBC 7.6 RBC 3.67 L Hgb 11.0 L Hct 32.7 L MCV 89 MCH 30.1 MCHC 33.7 RDW 16.3 H Plt Count 376 Seg Neutrophils % 53.3 Lymphocytes % 27.3 Monocytes % 7.0 Eosinophils % 11.0 H Basophils % 1.4 Absolute Neutrophils 4.0 Absolute Lymphocytes 2.1 Absolute Monocytes 0.5 Absolute Eosinophils 0.8 H Absolute Basophils 0.1 Sodium Cancelled 140.2 Potassium Cancelled 4.7 Chloride Cancelled 96 L Carbon Dioxide Cancelled 25 Anion Gap Cancelled 19 BUN Cancelled 52 H Creatinine Cancelled 9.58 H Est GFR ( Amer) Cancelled 6 L Est GFR (Non-Af Amer) Cancelled 5 L Glucose Cancelled 113 H Calcium Cancelled 9.1 Phosphorus Cancelled 9.4 H 11/29/17 11/29/17 04:40 10:58 CK-MB (CK-2) 0.73 0.91 Impressions: Chest X-Ray 11/28/17 21:23 IMPRESSION: Congestive heart failure and pulmonary edema. Assessment & Plan - Diagnosis (1) Acute pulmonary edema Is this a current diagnosis for this admission?: Yes (2) ESRD (end stage renal disease) on dialysis Is this a current diagnosis for this admission?: Yes
[2017-11-30] MEDS ORDERED: AMLODIPINE BESYLATE 5 MG TABLET PO SCH (22:00)
[2017-11-30] MEDS: BUPRENORPHINE HCL 300 MCG PO SCH (22:53)
[2017-12-01] MEDS: HYDRALAZINE HCL 50 MG TABLET PO SCH ×3 (01:30→18:41)
[2017-12-01] MEDS: IPRATROPIUM/ALBUTEROL 0.5-2.5 MG/3 ML AMPUL NEB SCH ×3 (02:04→14:00)
[2017-12-01 05:06] LABS: ABSOLUTE BASOPHILS # (AUTO) 0.1 10^3/uL (0.0-0.2); ABSOLUTE EOSINOPHILS # (AUTO) 0.8 10^3/uL (0.0-0.6); ABSOLUTE LYMPHOCYTES (AUTO) 2.4 10^3/uL (0.5-4.7); ABSOLUTE MONOCYTES (AUTO) 0.7 10^3/uL (0.1-1.4); EOSINOPHILS % (AUTO) 8.7 % (0-6); HEMATOCRIT 32.5 % (36.0-47.0); HEMOGLOBIN 10.5 g/dL (12.0-15.5); LYMPHOCYTES % (AUTO) 27.1 % (13-45); MEAN CORPUSCULAR HEMOGLOBIN 29.2 pg (27.0-33.4); MEAN CORPUSCULAR HGB CONC 32.4 g/dL (32.0-36.0); MEAN CORPUSCULAR VOLUME 90 fl (80-97); MONOCYTES % (AUTO) 7.3 % (3-13); PLATELET COUNT 413 10^3/uL (150-450); RED BLOOD COUNT 3.61 10^6/uL (3.72-5.28); RED CELL DISTRIBUTION WIDTH 16.1 % (11.5-14.0); SEGMENTED NEUTROPHILS % (AUTO) 55.9 % (42-78); TOTAL CELLS COUNTED % (AUTO) 100 %; WHITE BLOOD COUNT 8.9 10^3/uL (4.0-10.5)
[2017-12-01] MEDS: HEPARIN SOD (PORCINE) 5,000 UNIT/ML 1 ML SYRINGE SUBCUT SCH ×2 (05:09→17:11)
[2017-12-01] MEDS: LABETALOL HCL 200 MG TABLET PO SCH ×2 (05:10→17:11)
[2017-12-01 05:20] LABS: BLOOD UREA NITROGEN 67 mg/dL (7-20); CALCIUM 9.2 mg/dL (8.4-10.2); GLUCOSE 87 mg/dL (75-110); PHOSPHORUS 11.3 mg/dL (2.5-4.5); POTASSIUM 5.3 mmol/L (3.6-5.0)
[2017-12-01 05:57] LABS: CARBON DIOXIDE 21 mmol/L (22-30); CHLORIDE 94 mmol/L (98-107); SODIUM 136.9 mmol/L (137-145)
[2017-12-01 06:10] LABS: ANION GAP 22 (5-19)
[2017-12-01] MEDS: BUDESONIDE/FORMOTEROL 160-4.5 MCG 60 PUFF/6 GM MDI IH SCH (11:48)
[2017-12-01] MEDS: INSULIN DETEMIR 100 UNIT/ML 3 ML PEN SUBCUT SCH (11:48)
[2017-12-01] MEDS ORDERED: HEPARIN SOD (PORCINE) 1,000 UNIT/ML 10 ML VIAL IV PRN (14:50)
[2017-12-01] MEDS ORDERED: DIPHENHYDRAMINE HCL 50 MG/ML VIAL IV ONE ×2 (14:53→16:30)
--- NOTE | 2017-12-01 16:24 | PDOC PROGRESS REPORT ---
Subjective Progress Note for:: 12/01/17 Reason For Visit: She was seen on HD today.Undergoing HD without any issues. No c/o dyspnea, chest pains now.Off O2. Physical Exam Vital Signs: Temp Pulse Resp BP Pulse Ox 97.6 F 73 18 182/78 H 96 12/01/17 11:16 12/01/17 11:16 12/01/17 11:16 12/01/17 11:16 12/01/17 11:16 Intake & Output 11/30/17 12/01/17 12/02/17 06:59 06:59 06:59 Intake Total 273 962 400 Output Total 5100 Balance -4827 962 400 Weight 112.1 kg 114.5 kg General appearance: PRESENT: no acute distress Respiratory exam: PRESENT: clear to auscultation freddy, symmetrical. ABSENT: crackles Cardiovascular exam: PRESENT: RRR, +S1, +S2 GI/Abdominal exam: PRESENT: normal bowel sounds, soft. ABSENT: organomegaly, tenderness Neurological exam: PRESENT: alert, awake, oriented to person, oriented to place Results Laboratory Results: 12/01/17 04:07 12/01/17 04:07 12/01/17 12/01/17 04:07 04:07 WBC 8.9 RBC 3.61 L Hgb 10.5 L Hct 32.5 L MCV 90 MCH 29.2 MCHC 32.4 RDW 16.1 H Plt Count 413 Seg Neutrophils % 55.9 Lymphocytes % 27.1 Monocytes % 7.3 Eosinophils % 8.7 H Basophils % 1.0 Absolute Neutrophils 5.0 Absolute Lymphocytes 2.4 Absolute Monocytes 0.7 Absolute Eosinophils 0.8 H Absolute Basophils 0.1 Sodium 136.9 L Potassium 5.3 H Chloride 94 L Carbon Dioxide 21 L Anion Gap 22 H BUN 67 H Creatinine 11.12 H Est GFR ( Amer) 5 L Est GFR (Non-Af Amer) 4 L Glucose 87 Calcium 9.2 Phosphorus 11.3 H 11/29/17 11/29/17 04:40 10:58 CK-MB (CK-2) 0.73 0.91 Impressions: Chest X-Ray 11/28/17 21:23 IMPRESSION: Congestive heart failure and pulmonary edema. Assessment & Plan - Diagnosis (1) Acute exacerbation of congestive heart failure Plan: Clinically has improved and now compensated. Adv on compliance with diet and meds. (2) End-stage renal disease on hemodialysis Plan: Currently on Dialysis.Its being supervised to ensure a safe and smooth procedure. VS are stable Orders were discussed with Kim , the treating RN.Plan to UF 3-4 L as tolerated. (3) Hyperkalemia Plan: Improved.Adv on diet and compliance.. (4) Acute hypoxemic respiratory failure Plan: Resolved. (5) Anemia due to chronic kidney disease Plan: No indication for EPO today. (6) Diabetes mellitus type 1 with complications Plan: Adv on tight control. (7) Morbid obesity Plan: She needs to lose weight. (8) Renal osteodystrophy Plan: Adv on compliance with diet and meds.Discussed high Phos.
[2017-12-01] MEDS: BUPRENORPHINE HCL 300 MCG PO SCH (17:11)
[2017-12-01] MEDS: FUROSEMIDE 80 MG TABLET PO SCH ×2 (17:11→18:41)
[2017-12-01 18:38] VITALS: BP 182/77
[2017-12-01] MEDS: GABAPENTIN ENACARBIL 300 MG PO SCH (18:40)
--- NOTE | 2017-12-01 20:45 | PDOC DISCHARGE SUMMARY ---
General - Admit/Disc Date/PCP Admission Date/Primary Care Provider: 11/28/17 23:21 HILARY HERNANDEZ MD Discharge Date: 12/01/17 - Discharge Diagnosis (1) Acute pulmonary edema Is this a current diagnosis for this admission?: Yes (2) ESRD (end stage renal disease) on dialysis Is this a current diagnosis for this admission?: Yes - Additional Information Resuscitation Status: Full Code Discharge Diet: Cardiac, Diabetic, Other (Comments) Discharge Activity: Activity As Tolerated, Balance Activity w/Rest, Weigh Daily Home Medications: Albuterol Sulfate [Proair HFA Inhalation Aerosol 8.5 gm MDI] 2 puff IN Q4HP PRN 11/01/17 Alprazolam [Xanax 0.25 mg Tablet] 0.25 mg PO Q8 11/01/17 Budesonide/Formoterol Fumarate [Symbicort 160-4.5 Mcg Inhaler] 2 puff IN Q12 10/08 Butalb/Acetaminophen/Caffeine [Fioricet (50-325-40 mg) Tablet] 1 tab PO Q4HP PRN 11/01/17 Furosemide [Lasix] 80 mg PO TID 11/01/17 Gabapentin Enacarbil [Horizant] 300 mg PO WSUPPER 11/01/17 Hydralazine HCl 100 mg PO Q8 11/01/17 Insulin Detemir [Levemir Insulin 100 units/mL] 30 unit SQ BID 11/01/17 Insulin Lispro [Humalog Kwikpen U-100] 0 unit SQ .SLIDING SCALE 11/01/17 Ipratropium/Albuterol Sulfate [Iprat-Albut 0.5-3(2.5) mg/3 ml] 3 ml NEB Q6 11/01 Labetalol HCl [Normodyne 200 mg Tablet] 200 mg PO Q8 11/01/17 Paroxetine HCl [Paxil] 40 mg PO QAM 11/01/17 Buprenorphine HCl [Belbuca] 300 mcg BUCCAL Q12 11/29/17 Meclizine HCl [Antivert 25 mg Tablet] 25 mg PO Q8HP PRN 11/29/17 Methocarbamol 1 tab PO DAILY PRN 11/29/17 Oxycodone HCl/Acetaminophen [Oxycodon-Acetaminophen 7.5-325] 1 tab PO BIDP PRN 11/29/17 Sodium Polystyrene Sulfon/Sorb [Kionex 15 gm/60 ml Suspension] 15 gm PO DAILY History of Present Illness History of Present Illness: Patient 32-year-old female with end-stage renal disease on maintenance hemodialysis she presented to the emergency room in the usual fashion with progressive shortness of breath, chest x-ray showed pulmonary edema, she was hemodialyzed this morning, now she feels better. She was just discharged from this hospital on 11/05/2017 roughly 3 weeks ago. Hospital Course Hospital Course: Patient was admitted for management of acute pulmonary edema she was seen by nephrology had hemodialysis Physical Exam Vital Signs: Temp Pulse Resp BP Pulse Ox 98.2 F 88 18 182/77 H 100 12/01/17 17:54 12/01/17 17:54 12/01/17 17:54 12/01/17 17:54 12/01/17 17:54 Intake & Output 11/30/17 12/01/17 12/02/17 06:59 06:59 06:59 Intake Total 273 962 675 Output Total 5100 Balance -4827 962 675 Weight 112.1 kg 114.5 kg General appearance: PRESENT: no acute distress Head exam: PRESENT: atraumatic, normocephalic Eye exam: PRESENT: conjunctiva pink, EOMI, PERRLA Ear exam: PRESENT: normal external ear exam Mouth exam: PRESENT: moist, tongue midline Neck exam: PRESENT: full ROM Respiratory exam: PRESENT: clear to auscultation freddy Cardiovascular exam: PRESENT: RRR, +S1, +S2 Pulses: PRESENT: normal dorsalis pedis pul, +2 pedal pulses bilateral Vascular exam: PRESENT: normal capillary refill GI/Abdominal exam: PRESENT: normal bowel sounds, soft Rectal exam: PRESENT: deferred Neurological exam: PRESENT: alert, awake, oriented to person, oriented to place , oriented to time, oriented to situation, CN II-XII grossly intact. ABSENT: motor sensory deficit Psychiatric exam: PRESENT: appropriate affect, normal mood. ABSENT: homicidal ideation, suicidal ideation Skin exam: PRESENT: dry, intact, warm. ABSENT: cyanosis, rash Results Laboratory Results: 12/01/17 04:07 12/01/17 04:07 12/01/17 12/01/17 04:07 04:07 WBC 8.9 RBC 3.61 L Hgb 10.5 L Hct 32.5 L MCV 90 MCH 29.2 MCHC 32.4 RDW 16.1 H Plt Count 413 Seg Neutrophils % 55.9 Lymphocytes % 27.1 Monocytes % 7.3 Eosinophils % 8.7 H Basophils % 1.0 Absolute Neutrophils 5.0 Absolute Lymphocytes 2.4 Absolute Monocytes 0.7 Absolute Eosinophils 0.8 H Absolute Basophils 0.1 Sodium 136.9 L Potassium 5.3 H Chloride 94 L Carbon Dioxide 21 L Anion Gap 22 H BUN 67 H Creatinine 11.12 H Est GFR ( Amer) 5 L Est GFR (Non-Af Amer) 4 L Glucose 87 Calcium 9.2 Phosphorus 11.3 H 11/29/17 11/29/17 04:40 10:58 CK-MB (CK-2) 0.73 0.91 Impressions: Chest X-Ray 11/28/17 21:23 IMPRESSION: Congestive heart failure and pulmonary edema.
== END 2017-12-01 19:03 | disposition home or self-care (01) | DRG 291 ==
LOC: ER 21:04 → EH 23:21 → 3N 11-29 15:06
PROVIDERS: ADMIT Family Medicine; ATTEND Internal Medicine
PROC: 5A1D70Z Performance of Urinary Filtration, Intermittent, Less than 6 Hours Per Day (ICD-10-PCS; principal; 2017-11-29)
PROC: 5A1D70Z Performance of Urinary Filtration, Intermittent, Less than 6 Hours Per Day (ICD-10-PCS; 2017-12-01)
DX: I13.2 Hypertensive heart and chronic kidney disease with heart failure and with stage 5 chronic kidney disease, or end stage renal disease (principal); N18.6 End stage renal disease; J96.01 Acute respiratory failure with hypoxia; E87.5 Hyperkalemia; E10.22 Type 1 diabetes mellitus with diabetic chronic kidney disease; N25.0 Renal osteodystrophy; E66.01 Morbid (severe) obesity due to excess calories; I50.9 Heart failure, unspecified; D63.1 Anemia in chronic kidney disease; I25.10 Atherosclerotic heart disease of native coronary artery without angina pectoris; J45.909 Unspecified asthma, uncomplicated; R07.9 Chest pain, unspecified; R11.2 Nausea with vomiting, unspecified; Z68.39 Body mass index [BMI] 39.0-39.9, adult; Z99.2 Dependence on renal dialysis; Z79.4 Long term (current) use of insulin; Z79.51 Long term (current) use of inhaled steroids; Z79.899 Other long term (current) drug therapy; Z91.15 Patient's noncompliance with renal dialysis
CPT/HCPCS: 36415; 71045; 80048; 82553; 82803; 82962; 83690; 83735; 83880; 84100; 84484; 85025; 93005; 93010; 94660; 96374; 96375; 99291; G0257; J1200; J1644; J1815; J2405; J3490; J7620

== ENCOUNTER 2018-01-01 11:51 | Emergency (ER) | payer MEDICARE, MEDICAID ==
[2018-01-01] MEDS ORDERED: CLONIDINE HCL 0.1 MG TABLET PO ONE (12:22)
--- NOTE | 2018-01-01 12:23 | ER Document Report ---
HPI - HPI Patient complains to provider of: Right foot injury Onset/Duration: Persistent Quality of pain: Achy Pain Level: 2 Context: Patient states that she was practicing karate with her son and injured her foot 3 days ago. Patient states that her son kicked her foot. Patient complains of continued pain and swelling since then. Exacerbated by: Standing, Movement, Walking Relieved by: Denies Similar symptoms previously: No Recently seen / treated by doctor: No - ROS ROS below otherwise negative: Yes Systems Reviewed and Negative: Yes All other systems reviewed and negative - CONSTITUTIONAL Constitutional: DENIES: Fever, Chills - EENT EENT: DENIES: Sore Throat, Ear Pain, Eye problems - NEURO Neurology: DENIES: Headache, Weakness, Vision blurred, Dizzinesss / Vertigo - CARDIOVASCULAR Cardiovascular: DENIES: Chest pain - RESPIRATORY Respiratory: DENIES: Trouble Breathing, Coughing - GASTROINTESTINAL Gastrointestinal: DENIES: Abdominal Pain, Black / Bloody Stools - URINARY Urinary: DENIES: Dysuria, Urgency, Frequency - REPRODUCTIVE Reproductive: DENIES: :, Postmenopausal, Abnormal bleeding / discharge - MUSCULOSKELETAL Musculoskeletal: REPORTS: Extremity pain, Swelling - DERM Skin Color: Ecchymosis Past Medical History - General Information source: Patient - Social History Smoking Status: Current Every Day Smoker Chew tobacco use (# tins/day): No Frequency of alcohol use: None Drug Abuse: None Lives with: Family Family History: Reviewed & Not Pertinent Patient has suicidal ideation: No Patient has homicidal ideation: No - Past Medical History Cardiac Medical History: Reports: Hx Congestive Heart Failure, Hx Coronary Artery Disease, Hx Hypertension, Hx Heart Murmur Pulmonary Medical History: Reports: Hx Asthma, Hx Pneumonia Neurological Medical History: Reports: Hx Migraine, Hx Seizures Endocrine Medical History: Reports: Hx Diabetes Mellitus Type 1, Hx Diabetes Mellitus Type 2 Renal/ Medical History: Reports: Hx End Stage Renal Disease - On hemodialysis MWF, Hx Hemodialysis, Hx Ovarian Cysts. Denies: Hx Peritoneal Dialysis Malignancy Medical History: GI Medical History: Reports: Hx Gastritis. Denies: Hx Pancreatitis Musculoskeltal Medical History: Skin Medical History: Reports Hx Psoriasis Psychiatric Medical History: Reports: Hx Depression Traumatic Medical History: Infectious Medical History: Past Surgical History: Reports: Hx Appendectomy, Hx Cholecystectomy, Hx Vascular Surgery - Left arm fistula; Perm Cath -Right Chest, right arm fistula - Immunizations Immunizations up to date: Yes Hx Diphtheria, Pertussis, Tetanus Vaccination: Yes Hx Pneumococcal Vaccination: 08/22/11 Vertical Provider Document - CONSTITUTIONAL Agree With Documented VS: Yes Exam Limitations: No Limitations General Appearance: WD/WN, No Apparent Distress - INFECTION CONTROL TRAVEL OUTSIDE OF THE [place] IN LAST 30 DAYS: No - HEENT HEENT: Atraumatic, Normocephalic - NECK Neck: Normal Inspection - RESPIRATORY Respiratory: Breath Sounds Normal, No Respiratory Distress O2 Sat by Pulse Oximetry: 99 - CARDIOVASCULAR Cardiovascular: Regular Rate, Regular Rhythm Pulses: Normal: Dorsalis pedis - BACK Back: Normal Inspection - MUSCULOSKELETAL/EXTREMETIES Musculoskeletal/Extremeties: MAEW, Tender - Right foot tenderness over fourth and fifth metatarsals, area swollen with ecchymosis, Edema, Eccymosis - NEURO Level of Consciousness: Awake, Alert, Appropriate Motor/Sensory: No Motor Deficit - DERM Integumentary: Warm, Dry Course - Re-evaluation Re-evalutation: 01/01/18 13:38 Patient declined any pain medication as she takes narcotics at home. Discussed results of x-ray finding with patient. Patient encouraged to follow-up with orthopedic doctor. Patient states she does have crutches at home although she is not very skilled with these in them. Discussed the option of giving patient prescription for a walker to help with her ambulation. - Vital Signs Vital signs: Temp Pulse Resp BP Pulse Ox 98.3 F 82 18 184/80 H 99 01/01/18 12:01 01/01/18 12:01 01/01/18 12:01 01/01/18 12:01 01/01/18 12:01 - Diagnostic Test Radiology reviewed: Image reviewed, Reports reviewed Procedures - Immobilization Right 5th digit Pre-Proc Neuro Vasc Exam: Normal Immobilizer type: Post-op shoe Performed by: PCT Post-Proc Neuro Vasc Exam: Normal Alignment checked and good: Yes Discharge - Discharge Clinical Impression: Hx of essential hypertension Toe fracture, right Qualifiers: Encounter type: initial encounter Toe: lesser toe Fracture type: closed Phalanx : proximal Fracture alignment: displaced Qualified Code(s): S92.511A - Displaced fracture of proximal phalanx of right lesser toe(s), initial encounter for closed fracture Condition: Stable Disposition: HOME, SELF-CARE Instructions: Jorge Taping (toes) ([facility]), Post-Op Shoe ([facility]), Fractured Toe ([facility] ) Additional Instructions: Return immediately for any new or worsening symptoms Followup with your primary care provider, call tomorrow to make a followup appointment Follow-up with orthopedic doctor for further evaluation of toe fracture Prescriptions: Walker [Folding Walker] 1 each MC ASDIR PRN #1 each PRN Reason: Forms: Elevated Blood Pressure Referrals: HILARY HERNANDEZ MD [Primary Care Provider] - Follow up as needed [facility] [Provider Group] - Follow up in 3-5 days
--- NOTE | 2018-01-01 13:15 | RADIOLOGY REPORT (SQ) ---
EXAM DESCRIPTION: FOOT RIGHT COMPLETE COMPLETED DATE/TIME: 01/01/2018 12:58 pm REASON FOR STUDY: practicing karate, pain r 02/24 [place] COMPARISON: 03/25/2016. NUMBER OF VIEWS: Three views. TECHNIQUE: AP, lateral and oblique radiographic images acquired of the right foot. LIMITATIONS: None. FINDINGS: MINERALIZATION: Normal. BONES: Oblique fracture of the proximal phalanx of the toe, extending to the distal articular surface . JOINTS: No effusions. SOFT TISSUES: No soft tissue swelling. No foreign body. OTHER: No other significant finding. IMPRESSION: FRACTURE OF THE PROXIMAL PHALANX OF THE 5TH TOE. TECHNICAL DOCUMENTATION: JOB ID: [id number] [employer]- All Rights Reserved
[2018-01-01 14:24] VITALS: BP 180/99
== END 2018-01-01 14:24 | disposition home or self-care (01) ==
LOC: ER 11:51
DX: S92.511A Displaced fracture of proximal phalanx of right lesser toe(s), initial encounter for closed fracture (principal); I50.9 Heart failure, unspecified; I25.10 Atherosclerotic heart disease of native coronary artery without angina pectoris; I10 Essential (primary) hypertension; W51.XXXA Accidental striking against or bumped into by another person, initial encounter; Y93.75 Activity, martial arts; F17.200 Nicotine dependence, unspecified, uncomplicated
CPT/HCPCS: 99283; 73630; A9270

== ENCOUNTER 2018-03-15 05:11 | Inpatient (IN) | payer MEDICARE, MEDICAID ==
--- NOTE | 2018-03-15 05:32 | ER Document Report ---
Doctor's Note Notes: 03/15/18 05:31 I performed a quick triage evaluation the patient. Patient is a 32-year-old female who is well-known to the ER who has end-stage renal disease. She presents with difficulty breathing. Last dialysis was on Wednesday. She is supposed to have dialysis yesterday but missed her dialysis appointment. She says to feel short of breath throughout the night which got worse this morning and therefore she called the months. On exam she is respiratory distress. Her oxygen saturation is 91% on nonrebreather. She has diffuse rales throughout her bases. She says she did vomit once. She denies any fevers or infections. No other complaints at this time. I have placed on BiPAP. I have asked gripper machine operator to page Dr. Kwon, patient's fumigator and sterilizer, to talk to him about dialysis this morning. 03/15/18 05:32 03/15/18 05:33 I just spoke with Dr. Kwon on the phone who requests patient be admitted to ICU and he will contact his dialysis nurse and have her dialyzed this morning.
--- NOTE | 2018-03-15 05:46 | ER Document Report ---
ED General - General Stated Complaint: SHORTNESS OF BREATH Time Seen by Provider: 03/15/18 05:28 Notes: Patient is a 32-year-old female who is well-known to the ER who has end-stage renal disease. She presents with difficulty breathing. Last dialysis was on Wednesday. She is supposed to have dialysis yesterday but missed her dialysis appointment. She says to feel short of breath throughout the night which got worse this morning and therefore she called the months. On exam she is respiratory distress. Her oxygen saturation is 91% on nonrebreather. She has diffuse rales throughout her bases. She says she did vomit once. She denies any fevers or infections. No other complaints at this time. I have placed on BiPAP. I TRAVEL OUTSIDE OF THE [place] IN LAST 30 DAYS: No - Related Data Allergies/Adverse Reactions: aspirin [Aspirin] Allergy (Verified 01/01/18 11:54) Anaphylaxis ciprofloxacin [From Cipro] Allergy (Verified 01/01/18 11:54) Anaphylaxis clindamycin [Clindamycin] Allergy (Verified 01/01/18 11:54) hydrocodone [From Vicodin] Allergy (Verified 01/01/18 11:54) ibuprofen [From Motrin] Allergy (Verified 01/01/18 11:54) Anaphylaxis lidocaine [From Lidoderm] Allergy (Verified 01/01/18 11:54) Generalized rash tramadol HCl [From Ultram] Allergy (Verified 01/01/18 11:54) vancomycin [Vancomycin] Allergy (Verified 01/01/18 11:54) Shortness of Breath nitroglycerin [Nitroglycerin] Adverse Reaction (Intermediate, Verified 01/01/18 11:54) Joint pain Past Medical History - Social History Smoking Status: Unknown if Ever Smoked Frequency of alcohol use: None Drug Abuse: None Family History: Reviewed & Not Pertinent - Past Medical History Cardiac Medical History: Reports: Hx Congestive Heart Failure, Hx Coronary Artery Disease, Hx Hypertension, Hx Heart Murmur Pulmonary Medical History: Reports: Hx Asthma, Hx Pneumonia Neurological Medical History: Reports: Hx Migraine, Hx Seizures Endocrine Medical History: Reports: Hx Diabetes Mellitus Type 1, Hx Diabetes Mellitus Type 2 Renal/ Medical History: Reports: Hx End Stage Renal Disease - On hemodialysis MWF, Hx Hemodialysis, Hx Ovarian Cysts. Denies: Hx Peritoneal Dialysis Malignancy Medical History: GI Medical History: Reports: Hx Gastritis. Denies: Hx Pancreatitis Musculoskeltal Medical History: Skin Medical History: Reports Hx Psoriasis Psychiatric Medical History: Reports: Hx Depression Traumatic Medical History: Infectious Medical History: Past Surgical History: Reports: Hx Appendectomy, Hx Cholecystectomy, Hx Vascular Surgery - Left arm fistula; Perm Cath -Right Chest, right arm fistula - Immunizations Immunizations up to date: Yes Hx Diphtheria, Pertussis, Tetanus Vaccination: Yes Hx Pneumococcal Vaccination: 08/22/11 Review of Systems - Review of Systems Notes: My Normal Review Basic REVIEW OF SYSTEMS: CONSTITUTIONAL : Denies fever, chills, or sweats. Denies recent illness. EENT: Denies eye, ear, throat, or mouth pain or symptoms. Denies nasal or sinus congestion. CARDIOVASCULAR: Denies chest pain. RESPIRATORY: difficulty Breathing. GASTROINTESTINAL: Denies abdominal pain. Episode of vomiting MUSCULOSKELETAL: Denies neck or back pain or joint pain or swelling. SKIN: Denies rash or skin lesions. NEUROLOGICAL: Denies altered mental status or loss of consciousness. Denies headache. Denies weakness or paralysis or loss of use of either side. Denies problems with gait or speech. Denies sensory or motor loss. ALL OTHER SYSTEMS REVIEWED AND NEGATIVE. Physical Exam - Vital signs Vitals: Resp BP Pulse Ox 16 162/84 H 95 03/15/18 05:15 03/15/18 05:15 03/15/18 05:15 - Notes Notes: General Appearance: Well nourished, alert, cooperative, moderate acute distress , no obvious discomfort. Vitals: reviewed, See vital signs table. Head: no swelling or tenderness to the head Eyes: PERRL, EOMI, Conjuctiva clear Mouth: No decreasd moisture Throat: No tonsillar inflammation, No airway obstruction, No lymphadenopathy Neck: Supple, no neck tenderness, No thyromegaly Lungs: No wheezing, use rales, No rhonci, No accessory muscle use, good air exchange bilaterally. Heart: Normal rate, Regular rythm, No murmur, no rub Abdomen: Normal BS, soft, No rigidity, No abdominal tenderness, No guarding, no rebound, no abdominal masses, no organomegaly Extremities: strength 5/5 in all extremities, good pulses in all extremities, no swelling or tenderness in the extremities, no edema. Skin: warm, dry, appropriate color, no rash Neuro: speech clear, oriented x 3, normal affect, responds appropriately to questions. Course - Re-evaluation Re-evalutation: 03/15/18 05:51 I did speak with Dr. Kwon who agrees to dialyze patient requests patient be sent to the ICU soon as possible so he can dialyze her for status morning. I spoke with Dr. Singleton who agrees to admit the patient. I am still waiting her chemistry panel come back. Patient only complaint now is that she has little bit of chest tightness which she typically gets whenever this occurs. Her oxygenation is 96% on the BiPAP with FiO2 50%. EKG does not show any ischemic changes. Her QRS is not widened. We will continue to closely monitor the patient until she is admitted upstairs. Dictation of this chart was performed using voice recognition software; therefore, there may be some unintended grammatical errors. 03/15/18 05:52 03/15/18 06:16 Patient's potassium is 7.1. Her glucose is 367. I therefore gave her 10 units of insulin as well as an amp of bicarb. At this time I will hold Kayexalate because the patient is having nausea and as a BiPAP mask on. I do not want her to vomit Kayexalate and then aspirate. She also informs me that she still makes some urine and therefore we will give her 80 mg of Lasix IV as this may help with both her potassium as well as may be possibly diurese some of the fluid off. 03/15/18 06:19 - Vital Signs Vital signs: Temp Pulse Resp BP Pulse Ox 16 162/84 H 89 L 03/15/18 06:00 03/15/18 05:15 03/15/18 05:16 - Laboratory Result Diagrams: 03/15/18 05:30 03/15/18 05:30 Laboratory results interpreted by me: 03/15/18 03/15/18 05:30 05:30 WBC 12.9 H RBC 3.65 L Hgb 10.5 L Hct 32.4 L RDW 15.8 H Seg Neutrophils % 84.5 H Lymphocytes % 7.3 L Monocytes % 2.9 L Absolute Neutrophils 10.9 H Potassium 7.1 H* Chloride 93 L Carbon Dioxide 19 L BUN 87 H Creatinine 13.34 H Est GFR ( Amer) 4 L Est GFR (Non-Af Amer) 3 L Glucose 367 H Direct Bilirubin 0.5 H AST 13 L Alkaline Phosphatase 131 H - EKG Interpretation by Me Additional EKG results interpreted by me: 03/15/18 05:48 EKG is reviewed and interpreted by me. EKG shows sinus rhythm with rate of [address] segment elevation or depression. No ischemic T-wave inversions. SD interval slightly prolonged. QRS duration is within normal range. QTc interval is prolonged. Old EKG for comparison is from November 28, 2017. T waves are unchanged comparison to her old EKG. No QRS widening. Discharge - Discharge Clinical Impression: ESRD (end stage renal disease) on dialysis Fluid overload Qualifiers: Hypervolemia type: unspecified Qualified Code(s): E87.70 - Fluid overload, unspecified Condition: Stable Disposition: ADMITTED OBSERVATION Admitting Provider: [facility] Unit Admitted: ICU
[2018-03-15 05:50] LABS: ABSOLUTE BASOPHILS # (AUTO) 0.1 10^3/uL (0.0-0.2); ABSOLUTE EOSINOPHILS # (AUTO) 0.6 10^3/uL (0.0-0.6); ABSOLUTE LYMPHOCYTES (AUTO) 0.9 10^3/uL (0.5-4.7); ABSOLUTE MONOCYTES (AUTO) 0.4 10^3/uL (0.1-1.4); ABSOLUTE NEUT (AUTO) 10.9 10^3/uL (1.7-8.2); BASOPHILS % (AUTO) 0.8 % (0-2); EOSINOPHILS % (AUTO) 4.5 % (0-6); HEMATOCRIT 32.4 % (36.0-47.0); HEMOGLOBIN 10.5 g/dL (12.0-15.5); LYMPHOCYTES % (AUTO) 7.3 % (13-45); MEAN CORPUSCULAR HEMOGLOBIN 28.7 pg (27.0-33.4); MEAN CORPUSCULAR HGB CONC 32.3 g/dL (32.0-36.0); MEAN CORPUSCULAR VOLUME 89 fl (80-97); MONOCYTES % (AUTO) 2.9 % (3-13); PLATELET COUNT 294 10^3/uL (150-450); RED BLOOD COUNT 3.65 10^6/uL (3.72-5.28); RED CELL DISTRIBUTION WIDTH 15.8 % (11.5-14.0); SEGMENTED NEUTROPHILS % (AUTO) 84.5 % (42-78); TOTAL CELLS COUNTED % (AUTO) 100 %; WHITE BLOOD COUNT 12.9 10^3/uL (4.0-10.5)
[2018-03-15] MEDS ORDERED: ONDANSETRON HCL INJ/PF 4 MG/2 ML SDV IV ONE (05:51)
[2018-03-15 06:10] LABS: ALANINE AMINOTRANSFERASE 21 U/L (9-52); ALBUMIN 4.5 g/dL (3.5-5.0); ALKALINE PHOSPHATASE 131 U/L (38-126); ASPARTATE AMINO TRANSFERASE 13 U/L (14-36); BILIRUBIN,DIRECT 0.5 mg/dL (0.0-0.4); BILIRUBIN,TOTAL 0.5 mg/dL (0.2-1.3); BLOOD UREA NITROGEN 87 mg/dL (7-20); CALCIUM 8.5 mg/dL (8.4-10.2); GLUCOSE 367 mg/dL (75-110); TOTAL PROTEIN 8.2 g/dL (6.3-8.2)
--- NOTE | 2018-03-15 06:14 | RADIOLOGY REPORT (SQ) ---
EXAM DESCRIPTION: CHEST SINGLE VIEW CLINICAL HISTORY: 32 years Female, dyspnea COMPARISON: 11/28/2017. August 22, 2017. NUMBER OF VIEWS/TECHNIQUE: 1/AP LIMITATIONS: None. FINDINGS: Moderate bilateral patchy airspace opacities with central lower predominance, prominent cardiac silhouette, right subclavian stent material, and intact bony thorax. IMPRESSION: Mild pulmonary edema pattern. Differential diagnosis includes multifocal pneumonia.
[2018-03-15 06:15] LABS: CARBON DIOXIDE 19 mmol/L (22-30); CHLORIDE 93 mmol/L (98-107); SODIUM 137.8 mmol/L (137-145)
[2018-03-15] MEDS ORDERED: INSULIN REG, HUMAN 100 UNIT/ML 3 ML VIAL (PYX) IV ONE (06:15)
[2018-03-15] MEDS ORDERED: SODIUM BICARBONATE 8.4% INJ 50 MEQ/50 ML DISP.SYRIN IV ONE (06:16)
[2018-03-15 06:17] LABS: POTASSIUM 7.1 mmol/L (3.6-5.0)
[2018-03-15 06:19] LABS: ANION GAP 26 (5-19)
[2018-03-15] MEDS ORDERED: FUROSEMIDE INJ/PF 40 MG/4 ML SDV IV ONE (06:19)
--- NOTE | 2018-03-15 07:48 | EKG REPORT ---
SEVERITY:- ABNORMAL ECG - SINUS RHYTHM FIRST DEGREE AV BLOCK PROBABLE LEFT ATRIAL ABNORMALITY BORDERLINE LEFT AXIS DEVIATION PROLONGED QT INTERVAL : Confirmed by: Ciro Beckford MD 15-Mar-2018 07:47:04
--- NOTE | 2018-03-15 08:59 | Physician Advisory Note ---
Physician Advisor ProgressNote .: Pursuant to the plan for Arslan Mclaughlin, I have reviewed the medical record for this patient. Physician Advisor Statement: Please consider documenting, if you agree: 1. "Acute Hypoxemic Respiratory Failure, with O2 sat as low as 89% on ____, with accessory muscle use [per ED nurse notes]" 2. "Acute pulmonary edema" [as per CXR] - "Acute diastolic CHF"? 3. "Chronic diastolic CHF with pulmonary HTN" [per last ECHO] 4. Medical necessity: if pt can't safely go home today or tomorrow after HD, please document continued clinical issues/concerns, and may then consider change to Inpatient status. Status: Appropriately brought in as Obs, given many such cases are "fine" after HD, & can then go home. If pt only needs HD today & then is ok for d/c, with 0-1 MNs in hospital, then appropriate to stay Obs status. If ongoing clinical issues requiring a 2nd MN in hospital care & monitoring in this Medicare pt, then will become appropriate for Inpatient status. Thanks! CK
[2018-03-15] MEDS ORDERED: ENOXAPARIN SODIUM INJ 40 MG/0.4 ML DISP.SYRIN SUBCUT SCH (10:00)
[2018-03-15] MEDS ORDERED: HEPARIN SOD (PORCINE) 1,000 UNIT/ML 10 ML VIAL IV PRN (11:42)
--- NOTE | 2018-03-15 15:30 | PDOC CONSULTATION ---
Consultation Consult Date: 03/15/18 Consult reason:: Acute hemodialysis in the setting of severe hyperkalemia with EKG changes and congestive heart failure. History of Present Illness Admission Date/PCP: 03/15/18 08:24 History of Present Illness: ERICH GOODMAN is a 32 year old femaleWith history of long-standing diabetes mellitus, hypertension and ESRD on dialysis with severe noncompliance with diet , medications and keeping up with dialysis treatments comes in with history of acute onset of shortness of breath. She denies any history of chest pain, cough , fever or chills.Evaluations in the ER revealed that the patient was in severe congestive heart failure and decides that had severe hyperkalemia 7+ EKG changes.She had missed her dialysis yesterday and her last dialysis was on Wednesday. She admits to noncompliance with diet and medications besides that. The ER doctor discussed the patient with me and orders were placed for initiation of urgent dialysis.Patient is currently being seen while undergoing dialysis. She is comfortable on BiPAP. She denies any history of acute issues of the moment.Orders were discussed with the treating nurse. Past Medical History Cardiac Medical History: Reports: Coronary Artery Disease, Heart Murmur, Hypertension-primary Pulmonary Medical History: Reports: Asthma, Pneumonia Neurological Medical History: Reports: Migraine, Seizures Endocrine Medical History: Reports: Diabetes Mellitus Type 1, Diabetes Mellitus Type 2 Complications of Diabetes: Reports: Autonomic Neuropathy, Retinopathy Renal/ Medical History: Reports: End Stage Renal Disease - On hemodialysis MWF , Hyperkalemia, Secondary Hyperparathyroidism Malignancy Medical History: GI Medical History: Musculoskeltal Medical History: Denies: Rheumatoid Arthritis, Systemic Lupus Erythematosus Skin Medical History: Reports: Psoriasis Psychiatric Medical History: Reports: Depression Infectious Medical History: Hematology Medical History: Reports Anemia of Chronic Kidney Disease Past Surgical History Past Surgical History: Reports: Appendectomy, Cholecystectomy, Dialysis Access Surgery AVF, Vascular Surgery - Left arm fistula; Perm Cath -Right Chest, right arm fistula Social History Smoking Status: Unknown if Ever Smoked Frequency of Alcohol Use: None Hx Recreational Drug Use: No Drugs: None Hx Prescription Drug Abuse: No Family History Parental Family History Reviewed: Yes - Denies any history of ESRD Children Family History Reviewed: Yes Sibling(s) Family History Reviewed.: Yes Medication/Allergy Home Medications: Carvedilol [Coreg 12.5 mg Tablet] 12.5 mg PO Q12 03/15/18 Clonazepam [Klonopin] 0.5 mg PO Q12HP PRN 03/15/18 Clonidine HCl [Catapres 0.1 mg Tablet] 0.1 mg PO Q8 03/15/18 Furosemide [Lasix 80 mg Tablet] 80 mg PO TID 03/15/18 Gabapentin Enacarbil [Horizant] 300 mg PO QPM 03/15/18 Hydralazine HCl 100 mg PO Q8 03/15/18 Insulin Detemir [Levemir Flextouch] 30 units SQ BID 03/15/18 Montelukast Sodium [Singulair] 10 mg PO QPM 03/15/18 Nifedipine [Nifedipine ER] 60 mg PO Q12 03/15/18 Oxcarbazepine [Trileptal] 300 mg PO Q12 03/15/18 Oxycodone HCl/Acetaminophen [Oxycodon-Acetaminophen 7.5-325] 1 tab PO Q12 Paroxetine HCl [Paxil] 40 mg PO QPM 03/15/18 Topiramate [Topamax] 50 mg PO Q12 03/15/18 Allergies/Adverse Reactions: aspirin [Aspirin] Allergy (Verified 03/15/18 11:45) Anaphylaxis ciprofloxacin [From Cipro] Allergy (Verified 03/15/18 11:45) Anaphylaxis clindamycin [Clindamycin] Allergy (Verified 03/15/18 11:45) hydrocodone [From Vicodin] Allergy (Verified 03/15/18 11:45) ibuprofen [From Motrin] Allergy (Verified 03/15/18 11:45) Anaphylaxis lidocaine [From Lidoderm] Allergy (Verified 03/15/18 11:45) Generalized rash tramadol HCl [From Ultram] Allergy (Verified 03/15/18 11:45) vancomycin [Vancomycin] Allergy (Verified 03/15/18 11:45) Shortness of Breath nitroglycerin [Nitroglycerin] Adverse Reaction (Intermediate, Verified 03/15/18 11:45) Joint pain Review of Systems ROS unobtainable: Due to mental status Constitutional: ABSENT: fatigue, fever(s), headache(s), night sweats, weakness Cardiovascular: PRESENT: dyspnea on exertion. ABSENT: chest pain Respiratory: PRESENT: dyspnea. ABSENT: hemoptysis Gastrointestinal: ABSENT: abdominal pain, diarrhea, dysphagia, heartburn, nausea , vomiting Neurological: ABSENT: abnormal gait, abnormal speech, confusion, focal weakness Hematologic/Lymphatic: ABSENT: easy bruising, lymphadenopathy Physical Exam Vital Signs: Temp Pulse Resp BP Pulse Ox 33 H 159/71 H 97 03/15/18 14:01 03/15/18 14:01 03/15/18 14:01 Intake & Output 03/14/18 03/15/18 03/16/18 06:59 06:59 06:59 Output Total 4900 Balance -4900 Weight 119.8 kg General appearance: PRESENT: severe distress Eye exam: PRESENT: conjunctiva pink, EOMI, PERRLA Ear exam: PRESENT: normal external ear exam Mouth exam: PRESENT: neck supple Neck exam: ABSENT: lymphadenopathy, meningismus, tenderness, thyromegaly, tracheal deviation Respiratory exam: PRESENT: clear to auscultation freddy, crackles. ABSENT: rhonchi Cardiovascular exam: PRESENT: +S1, +S2, systolic murmur GI/Abdominal exam: PRESENT: normal bowel sounds, soft. ABSENT: organomegaly, tenderness Extremities exam: PRESENT: pedal edema Neurological exam: PRESENT: altered Psychiatric exam: PRESENT: agitated Skin exam: PRESENT: cyanosis. ABSENT: erythema, mottled Results Impressions: Chest X-Ray 03/15/18 05:29 IMPRESSION: Mild pulmonary edema pattern. Differential diagnosis includes multifocal pneumonia. Assessment & Plan - Diagnosis (1) ESRD (end stage renal disease) on dialysis Plan: Patient currently undergoing dialysis. She is in distress from respiratory failure and on BiPAP. Plan is to remove at least 4 L of fluid and diet will dialyze again tomorrow. She is on a 1K bath for the first 2 hours and then to 2K for severe hyperkalemia with EKG changes. She has had multiple admissions like this in the past for congestive heart failure/hypertensive urgency and severe hyperkalemia because of ongoing and intermittent noncompliance with diet and medications and treatments.Orders were discussed with the treating nurse. Vital signs are stable. She will respond to current dialysis as planned we will repeat dialysis in the morning.Underlying diabetic kidney disease and intermittent severe noncompliance has been a reason for crisis like this in the past as well. (2) Acute diastolic (congestive) heart failure Plan: As mentioned earlier she hopefully should respond to urgent dialysis that she is undergoing currently. Discussed again compliance with diet medications and not missing treatments. Obviously this needs to be reinforced once she is better. (3) Acute hypoxemic respiratory failure Plan: Secondary to acute congestive heart failure. See the response to dialysis. (4) Anemia due to chronic kidney disease Plan: Hold off epo for now. Monitor. (5) Diabetes mellitus type 1 Qualifiers: Plan: Advised on tight diabetic control. (6) Hyperkalemia Plan: Severe and with EKG changes. She should respond to dialysis. Orders were discussed with the treating nurse Kim on dialysis. (7) Morbid obesity Plan: Chronic and patient not too keen to do anything about it.
[2018-03-15] MEDS ORDERED: (PENDING PHARMACY ID) (Clonazepam [Klonopin] 0.5 MG) PO PRN (21:15)
[2018-03-15] MEDS ORDERED: DEXTROSE 40% GEL 15 GM TUBE PO PRN (21:31)
[2018-03-15] MEDS ORDERED: GLUCAGON,HUMAN RECOMB 1 MG INJ IM PRN (21:31)
[2018-03-15] MEDS ORDERED: DEXTROSE 50%-WATER SYRINGE 25 GM/50 ML DOSE IV PRN (21:31)
[2018-03-15] MEDS ORDERED: DEXTROSE 50%-WATER SYRINGE 12.5 GM/25 ML DOSE IV PRN (21:31)
[2018-03-15] MEDS ORDERED: DEXTROSE 40% GEL 15 GM TUBE X 2 PO PRN (21:31)
[2018-03-15] MEDS ORDERED: CLONAZEPAM 1 MG TABLET PO PRN (21:45)
[2018-03-15] MEDS ORDERED: (PENDING PHARMACY ID) (Nifedipine [Nifedipine Er] 60 MG) PO SCH (22:00)
[2018-03-15] MEDS ORDERED: (PENDING PHARMACY ID) (Hydralazine Hcl [Hydralazine Hcl] 100 MG) PO SCH (22:00)
[2018-03-15] MEDS ORDERED: (PENDING PHARMACY ID) (Oxcarbazepine [Trileptal] 300 MG) PO SCH (22:00)
[2018-03-15] MEDS ORDERED: (PENDING PHARMACY ID) (Oxycodone Hcl/Acetaminophen [Oxycodon-Acetaminophen 7.5-325] 1 TAB) PO SCH (22:00)
[2018-03-15] MEDS: CLONIDINE HCL 0.1 MG TABLET PO SCH (22:59)
[2018-03-15] MEDS: MONTELUKAST SODIUM 10 MG TABLET PO SCH (22:59)
[2018-03-15] MEDS ORDERED: NIFEDIPINE 30 MG TAB.ER.24 PO ONE (23:00)
[2018-03-15] MEDS: CARVEDILOL 12.5 MG TABLET PO SCH (23:09)
[2018-03-15] MEDS: INSULIN DETEMIR 100 UNIT/ML 3 ML PEN SUBCUT SCH (23:15)
[2018-03-15] MEDS: INSULIN LISPRO 100 UNIT/ML 3 ML VIAL SUBCUT PRN (23:16)
[2018-03-15] MEDS ORDERED: OXYCODONE-ACETAMINOPHEN 5-325 MG TABLET PO ONE (23:30)
[2018-03-15] MEDS ORDERED: OXYCODONE HCL IR 5 MG TABLET PO ONE (23:30)
[2018-03-15] MEDS ORDERED: OXCARBAZEPINE 150 MG TABLET PO ONE (23:30)
[2018-03-15] MEDS ORDERED: TOPIRAMATE 100 MG TABLET PO ONE (23:30)
[2018-03-15] MEDS ORDERED: HYDRALAZINE HCL 50 MG TABLET PO ONE (23:30)
[2018-03-15] MEDS ORDERED: PAROXETINE HCL 20 MG TABLET PO ONE (23:30)
[2018-03-16] MEDS: HYDRALAZINE HCL 50 MG TABLET PO SCH ×2 (05:30→13:43)
[2018-03-16] MEDS: CLONIDINE HCL 0.1 MG TABLET PO SCH ×3 (05:30→22:50)
[2018-03-16] MEDS ORDERED: HEPARIN SOD (PORCINE) 1,000 UNIT/ML 10 ML VIAL IV PRN (08:45)
[2018-03-16 09:37] LABS: HEMATOCRIT 29.8 % (36.0-47.0); HEMOGLOBIN 9.7 g/dL (12.0-15.5); MEAN CORPUSCULAR HEMOGLOBIN 28.8 pg (27.0-33.4); MEAN CORPUSCULAR HGB CONC 32.6 g/dL (32.0-36.0); MEAN CORPUSCULAR VOLUME 89 fl (80-97); PLATELET COUNT 284 10^3/uL (150-450); RED BLOOD COUNT 3.37 10^6/uL (3.72-5.28); RED CELL DISTRIBUTION WIDTH 16.4 % (11.5-14.0); WHITE BLOOD COUNT 8.8 10^3/uL (4.0-10.5)
[2018-03-16 09:44] LABS: BLOOD UREA NITROGEN 54 mg/dL (7-20); CALCIUM 8.4 mg/dL (8.4-10.2); CHLORIDE 91 mmol/L (98-107); GLUCOSE 288 mg/dL (75-110); POTASSIUM 4.8 mmol/L (3.6-5.0)
[2018-03-16 09:52] LABS: ANION GAP 18 (5-19); CARBON DIOXIDE 29 mmol/L (22-30); SODIUM 138.1 mmol/L (137-145)
--- NOTE | 2018-03-16 13:32 | PDOC PROGRESS REPORT ---
Subjective Progress Note for:: 03/16/18 Reason For Visit: Patient seen on dialysis this morning. She is undergoing dialysis without any issues.She feels a whole lot better compared to when she came in yesterday because of shortness of breath is much he denies any history of chest pains, fever or chills.Labs and medications were reviewed. Orders for dialysis were discussed with the treating dialysis nurse. Physical Exam Vital Signs: Temp Pulse Resp BP Pulse Ox 97.6 F 81 18 152/69 H 97 03/16/18 08:00 03/16/18 08:00 03/16/18 08:00 03/16/18 08:00 03/16/18 10:06 Intake & Output 03/15/18 03/16/18 03/17/18 06:59 06:59 06:59 Intake Total 236 Output Total 4900 Balance -4664 Weight 114.8 kg General appearance: PRESENT: no acute distress Respiratory exam: PRESENT: clear to auscultation freddy. ABSENT: crackles, rhonchi Cardiovascular exam: PRESENT: +S1, +S2, systolic murmur GI/Abdominal exam: PRESENT: normal bowel sounds, soft. ABSENT: organomegaly, tenderness Extremities exam: ABSENT: pedal edema Neurological exam: PRESENT: alert, awake, oriented to person, oriented to place Results Laboratory Results: 03/16/18 08:50 03/16/18 08:50 03/16/18 03/16/18 08:50 08:50 WBC 8.8 RBC 3.37 L Hgb 9.7 L Hct 29.8 L MCV 89 MCH 28.8 MCHC 32.6 RDW 16.4 H Plt Count 284 Sodium 138.1 Potassium 4.8 Chloride 91 L Carbon Dioxide 29 Anion Gap 18 BUN 54 H Creatinine 10.26 H Est GFR ( Amer) 5 L Est GFR (Non-Af Amer) 4 L Glucose 288 H Calcium 8.4 Impressions: Chest X-Ray 03/15/18 05:29 IMPRESSION: Mild pulmonary edema pattern. Differential diagnosis includes multifocal pneumonia. Assessment & Plan - Diagnosis (1) ESRD (end stage renal disease) on dialysis Plan: Patient undergoing dialysis without any issues. Signs are stable. Plan to remove 3-4 L as tolerated. Dialysis is being supervised to ensure safe and smooth procedure. Orders reviewed with the nurse. (2) Acute diastolic (congestive) heart failure Plan: Currently resolved. Monitor. (3) Acute hypoxemic respiratory failure Plan: Resolved. (4) Anemia due to chronic kidney disease Plan: Monitor. No indication for epo. (5) Diabetes mellitus type 1 Qualifiers: Plan: Advised tight control. (6) Hyperkalemia Plan: Resolved and currently normokalemic. Advised on diet and repercussions of high K again with the patient.
[2018-03-16] MEDS: INSULIN DETEMIR 100 UNIT/ML 3 ML PEN SUBCUT SCH ×2 (13:35→22:14)
[2018-03-16] MEDS: OXYCODONE-ACETAMINOPHEN 5-325 MG TABLET PO SCH ×2 (13:36→22:49)
[2018-03-16] MEDS: OXYCODONE HCL IR 5 MG TABLET PO SCH ×2 (13:36→22:48)
[2018-03-16] MEDS: NIFEDIPINE 30 MG TAB.ER.24 PO SCH ×2 (13:36→22:50)
[2018-03-16] MEDS: FUROSEMIDE 80 MG TABLET PO SCH ×3 (13:37→19:13)
[2018-03-16] MEDS: TOPIRAMATE 100 MG TABLET PO SCH (13:37)
[2018-03-16] MEDS: CARVEDILOL 12.5 MG TABLET PO SCH ×2 (13:37→22:50)
[2018-03-16] MEDS: OXCARBAZEPINE 150 MG TABLET PO SCH (13:40)
[2018-03-16] MEDS ORDERED: PAROXETINE HCL 20 MG TABLET PO SCH (18:00)
[2018-03-16] MEDS ORDERED: (PENDING PHARMACY ID) (Gabapentin Enacarbil [Horizant] 300 MG) PO SCH (18:00)
--- NOTE | 2018-03-16 18:00 | PDOC H&P ---
History of Present Illness Admission Date/PCP: 03/15/18 08:24 History of Present Illness: ERICH GOODMAN is a 32 year old female, She has end-stage renal disease on maintenance hemodialysis she presented to the emergency room with acute pulmonary edema associated with acute hypoxemic respiratory failure due to volume overload. She missed hemodialysis session,She has presented in this fashion multiple times, there was hyperkalemia, she was seen by the fiberglass fabricator and emergently hemodialyzed. Past Medical History Cardiac Medical History: Reports: Coronary Artery Disease, Hypertension, Heart Murmur, Other - Chronic diastolic heart failure Pulmonary Medical History: Reports: Asthma, Pneumonia Neurological Medical History: Reports: Migraine, Seizures Endocrine Medical History: Reports: Diabetes Mellitus Type 2 Renal/ Medical History: Reports: End Stage Renal Disease - On hemodialysis MWF Malignancy Medical History: GI Medical History: Musculoskeltal Medical History: Skin Medical History: Reports: Psoriasis Psychiatric Medical History: Reports: Depression Hematology: Reports: Anemia Infectious Medical History: Past Surgical History Past Surgical History: Reports: Appendectomy, Cholecystectomy, Vascular Surgery - Left arm fistula; Perm Cath -Right Chest, right arm fistula Social History Smoking Status: Never Smoker Frequency of Alcohol Use: None Hx Recreational Drug Use: No Drugs: None Hx Prescription Drug Abuse: No Family History Family History: Reviewed & Not Pertinent Parental Family History Reviewed: Yes Children Family History Reviewed: Yes Sibling(s) Family History Reviewed.: Yes Medication/Allergy Home Medications: Carvedilol [Coreg 12.5 mg Tablet] 12.5 mg PO Q12 03/15/18 Clonazepam [Klonopin] 0.5 mg PO Q12HP PRN 03/15/18 Clonidine HCl [Catapres 0.1 mg Tablet] 0.1 mg PO Q8 03/15/18 Furosemide [Lasix 80 mg Tablet] 80 mg PO TID 03/15/18 Gabapentin Enacarbil [Horizant] 300 mg PO QPM 03/15/18 Hydralazine HCl 100 mg PO Q8 03/15/18 Insulin Detemir [Levemir Flextouch] 30 units SQ BID 03/15/18 Montelukast Sodium [Singulair] 10 mg PO QPM 03/15/18 Nifedipine [Nifedipine ER] 60 mg PO Q12 03/15/18 Oxcarbazepine [Trileptal] 300 mg PO Q12 03/15/18 Oxycodone HCl/Acetaminophen [Oxycodon-Acetaminophen 7.5-325] 1 tab PO Q12 Paroxetine HCl [Paxil] 40 mg PO QPM 03/15/18 Topiramate [Topamax] 50 mg PO Q12 03/15/18 Allergies/Adverse Reactions: aspirin [Aspirin] Allergy (Verified 03/15/18 11:45) Anaphylaxis ciprofloxacin [From Cipro] Allergy (Verified 03/15/18 11:45) Anaphylaxis clindamycin [Clindamycin] Allergy (Verified 03/15/18 11:45) hydrocodone [From Vicodin] Allergy (Verified 03/15/18 11:45) ibuprofen [From Motrin] Allergy (Verified 03/15/18 11:45) Anaphylaxis lidocaine [From Lidoderm] Allergy (Verified 03/15/18 11:45) Generalized rash tramadol HCl [From Ultram] Allergy (Verified 03/15/18 11:45) vancomycin [Vancomycin] Allergy (Verified 03/15/18 11:45) Shortness of Breath nitroglycerin [Nitroglycerin] Adverse Reaction (Intermediate, Verified 03/15/18 11:45) Joint pain Review of Systems Constitutional: ABSENT: chills, fever(s), headache(s), weight gain, weight loss Eyes: ABSENT: visual disturbances Ears: ABSENT: hearing changes Cardiovascular: ABSENT: chest pain, dyspnea on exertion, edema, orthropnea, palpitations Respiratory: PRESENT: dyspnea Gastrointestinal: ABSENT: abdominal pain, constipation, diarrhea, hematemesis, hematochezia, nausea, vomiting Genitourinary: ABSENT: dysuria, hematuria Musculoskeletal: ABSENT: joint swelling Integumentary: ABSENT: rash, wounds Neurological: ABSENT: abnormal gait, abnormal speech, confusion, dizziness, focal weakness, syncope Psychiatric: ABSENT: anxiety, depression, homidical ideation, suicidal ideation Endocrine: ABSENT: cold intolerance, heat intolerance, menstrual abnormalities, polydipsia, polyuria Hematologic/Lymphatic: ABSENT: easy bleeding, easy bruising, lymphadenopathy Physical Exam Vital Signs: Temp Pulse Resp BP Pulse Ox 98.9 F 83 16 130/64 H 97 03/16/18 15:34 03/16/18 15:34 03/16/18 15:34 03/16/18 15:34 03/16/18 15:34 Intake & Output 03/15/18 03/16/1803/17/18 06:59 06:59 06:59 Intake Total 236 Output Total 4900 Balance -4664 Weight 114.8 kg General appearance: PRESENT: no acute distress, well-developed, well-nourished Head exam: PRESENT: atraumatic, normocephalic Eye exam: PRESENT: conjunctiva pink, EOMI, PERRLA Ear exam: PRESENT: normal external ear exam Mouth exam: PRESENT: moist, tongue midline Neck exam: PRESENT: full ROM Respiratory exam: PRESENT: rhonchi Cardiovascular exam: PRESENT: RRR, +S1, +S2 Vascular exam: PRESENT: normal capillary refill GI/Abdominal exam: PRESENT: normal bowel sounds, soft Rectal exam: PRESENT: deferred Neurological exam: PRESENT: alert, CN II-XII grossly intact Psychiatric exam: PRESENT: appropriate affect, normal mood Skin exam: PRESENT: dry, intact, warm Results Laboratory Results: 03/16/18 08:50 03/16/18 08:50 03/16/18 03/16/18 08:50 08:50 WBC 8.8 RBC 3.37 L Hgb 9.7 L Hct 29.8 L MCV 89 MCH 28.8 MCHC 32.6 RDW 16.4 H Plt Count 284 Sodium 138.1 Potassium 4.8 Chloride 91 L Carbon Dioxide 29 Anion Gap 18 BUN 54 H Creatinine 10.26 H Est GFR ( Amer) 5 L Est GFR (Non-Af Amer) 4 L Glucose 288 H Calcium 8.4 Impressions: Chest X-Ray 03/15/18 05:29 IMPRESSION: Mild pulmonary edema pattern. Differential diagnosis includes multifocal pneumonia. Assessment & Plan - Diagnosis (1) Acute hypoxemic respiratory failure Is this a current diagnosis for this admission?: Yes Plan: This is secondary to volume overload, acute pulmonary edema (2) Acute pulmonary edema Is this a current diagnosis for this admission?: Yes (3) ESRD (end stage renal disease) on dialysis Is this a current diagnosis for this admission?: Yes (4) Diabetes mellitus type 1 with complications Is this a current diagnosis for this admission?: Yes Plan: Continue insulin regimen
--- NOTE | 2018-03-16 18:04 | PDOC PROGRESS REPORT ---
Subjective Progress Note for:: 03/16/18 Subjective:: Patient was seen by the bedside,, she was dialyzed today she is much better Reason For Visit: PULMONARY EDEMA Physical Exam Vital Signs: Temp Pulse Resp BP Pulse Ox 98.9 F 83 16 130/64 H 96 03/16/18 15:34 03/16/18 15:34 03/16/18 15:34 03/16/18 15:34 03/16/18 16:30 Intake & Output 03/15/18 03/16/18 03/17/18 06:59 06:59 06:59 Intake Total 236 Output Total 4900 Balance -4664 Weight 114.8 kg General appearance: PRESENT: no acute distress Eye exam: PRESENT: PERRLA Respiratory exam: PRESENT: clear to auscultation freddy Cardiovascular exam: PRESENT: +S1, +S2 GI/Abdominal exam: PRESENT: soft Neurological exam: PRESENT: alert Results Laboratory Results: 03/16/18 08:50 03/16/18 08:50 03/16/18 03/16/18 08:50 08:50 WBC 8.8 RBC 3.37 L Hgb 9.7 L Hct 29.8 L MCV 89 MCH 28.8 MCHC 32.6 RDW 16.4 H Plt Count 284 Sodium 138.1 Potassium 4.8 Chloride 91 L Carbon Dioxide 29 Anion Gap 18 BUN 54 H Creatinine 10.26 H Est GFR ( Amer) 5 L Est GFR (Non-Af Amer) 4 L Glucose 288 H Calcium 8.4 Impressions: Chest X-Ray 03/15/18 05:29 IMPRESSION: Mild pulmonary edema pattern. Differential diagnosis includes multifocal pneumonia. Assessment & Plan - Diagnosis (1) Acute hypoxemic respiratory failure Is this a current diagnosis for this admission?: Yes Plan: Continue treatment (2) Acute pulmonary edema Is this a current diagnosis for this admission?: Yes (3) ESRD (end stage renal disease) on dialysis Is this a current diagnosis for this admission?: Yes (4) Diabetes mellitus type 1 with complications Is this a current diagnosis for this admission?: Yes
[2018-03-16] MEDS: INSULIN LISPRO 100 UNIT/ML 3 ML VIAL SUBCUT PRN (22:15)
[2018-03-17] MEDS: TOPIRAMATE 100 MG TABLET PO SCH ×2 (00:52→09:24)
[2018-03-17] MEDS: HYDRALAZINE HCL 50 MG TABLET PO SCH ×3 (00:52→12:48)
[2018-03-17] MEDS: MONTELUKAST SODIUM 10 MG TABLET PO SCH (00:52)
[2018-03-17] MEDS: OXCARBAZEPINE 150 MG TABLET PO SCH ×2 (00:52→09:25)
[2018-03-17] MEDS: CLONIDINE HCL 0.1 MG TABLET PO SCH ×2 (05:55→12:48)
[2018-03-17] MEDS: OXYCODONE HCL IR 5 MG TABLET PO SCH (09:22)
[2018-03-17] MEDS: OXYCODONE-ACETAMINOPHEN 5-325 MG TABLET PO SCH (09:22)
[2018-03-17] MEDS: NIFEDIPINE 30 MG TAB.ER.24 PO SCH (09:24)
[2018-03-17] MEDS: CARVEDILOL 12.5 MG TABLET PO SCH (09:24)
[2018-03-17] MEDS: FUROSEMIDE 80 MG TABLET PO SCH ×2 (09:25→12:49)
[2018-03-17] MEDS: INSULIN DETEMIR 100 UNIT/ML 3 ML PEN SUBCUT SCH (09:26)
[2018-03-17 12:11] VITALS: BP 132/82
[2018-03-17] MEDS: INSULIN LISPRO 100 UNIT/ML 3 ML VIAL SUBCUT PRN (12:47)
--- NOTE | 2018-03-17 13:43 | PDOC PROGRESS REPORT ---
Subjective Progress Note for:: 03/17/18 Subjective:: Patient was laying comfortably in bed this morning. She was not complaining of SOB. She denied any chest pain, n/v/d/c. She simply stated that she is ready to go home and see her child. Reason For Visit: PULMONARY EDEMA Physical Exam Vital Signs: Temp Pulse Resp BP Pulse Ox 98.4 F 69 18 132/82 H 99 03/17/18 12:05 03/17/18 12:05 03/17/18 12:05 03/17/18 12:05 03/17/18 12:05 Intake & Output 03/16/18 03/17/18 03/18/18 06:59 06:59 06:59 Intake Total 236 2026 Output Total 4900 3800 Balance -4664 -1774 Weight 114.8 kg 112.7 kg General appearance: PRESENT: no acute distress, well-developed, well-nourished Mouth exam: PRESENT: moist, neck supple Neck exam: PRESENT: full ROM. ABSENT: JVD Respiratory exam: PRESENT: clear to auscultation freddy. ABSENT: accessory muscle use, crackles, rhonchi, wheezes Cardiovascular exam: PRESENT: +S1, +S2, systolic murmur GI/Abdominal exam: PRESENT: normal bowel sounds, soft. ABSENT: organomegaly, tenderness Extremities exam: ABSENT: pedal edema, +1 edema, +2 edema Musculoskeletal exam: PRESENT: normal inspection. ABSENT: tenderness Neurological exam: PRESENT: alert, awake, oriented to person, oriented to place , oriented to time, oriented to situation Psychiatric exam: PRESENT: appropriate affect, normal mood Skin exam: PRESENT: dry, intact, warm. ABSENT: cyanosis Results Laboratory Results: 03/16/18 08:50 03/16/18 08:50 Impressions: Chest X-Ray 03/15/18 05:29 IMPRESSION: Mild pulmonary edema pattern. Differential diagnosis includes multifocal pneumonia. Assessment & Plan - Diagnosis (1) Acute hypoxemic respiratory failure Is this a current diagnosis for this admission?: Yes Plan: looks to have resolved at this point she is stable from nephrology's standpoint. She can follow up with her normal dialysis treatment tomorrow. (2) ESRD (end stage renal disease) on dialysis Is this a current diagnosis for this admission?: Yes Plan: can follow up with dialysis tomorrow as outpatient (3) Acute pulmonary edema Is this a current diagnosis for this admission?: Yes Plan: resolving, can follow up with her dialysis as outpatient tomorrow. (4) Volume overload Qualifiers: Hypervolemia type: unspecified Qualified Code(s): E87.70 - Fluid overload, unspecified Plan: resolving, discussed proper fluid intake and the need to go to dialysis (5) Anemia Qualifiers: Other causes of anemia: chronic disease, kidney Plan: will look to give epogen tomorrow on dialysis (6) Diabetes mellitus type 1 Qualifiers: (7) Hyperkalemia Plan: currently stable
--- NOTE | 2018-03-17 20:36 | PDOC DISCHARGE SUMMARY ---
General - Admit/Disc Date/PCP Admission Date/Primary Care Provider: 03/15/18 08:24 Discharge Date: 03/17/18 - Discharge Diagnosis (1) Acute hypoxemic respiratory failure Is this a current diagnosis for this admission?: Yes (2) Acute pulmonary edema Is this a current diagnosis for this admission?: Yes (3) ESRD (end stage renal disease) on dialysis Is this a current diagnosis for this admission?: Yes (4) Diabetes mellitus type 1 with complications Is this a current diagnosis for this admission?: Yes - Additional Information Discharge Diet: Cardiac, Diabetic Discharge Activity: Activity As Tolerated, Balance Activity w/Rest, Weigh Daily Home Medications: Carvedilol [Coreg 12.5 mg Tablet] 12.5 mg PO Q12 03/15/18 Clonazepam [Klonopin] 0.5 mg PO Q12HP PRN 03/15/18 Clonidine HCl [Catapres 0.1 mg Tablet] 0.1 mg PO Q8 03/15/18 Furosemide [Lasix 80 mg Tablet] 80 mg PO TID 03/15/18 Gabapentin Enacarbil [Horizant] 300 mg PO QPM 03/15/18 Hydralazine HCl 100 mg PO Q8 03/15/18 Insulin Detemir [Levemir Flextouch] 30 units SQ BID 03/15/18 Montelukast Sodium [Singulair] 10 mg PO QPM 03/15/18 Nifedipine [Nifedipine ER] 60 mg PO Q12 03/15/18 Oxcarbazepine [Trileptal] 300 mg PO Q12 03/15/18 Oxycodone HCl/Acetaminophen [Oxycodon-Acetaminophen 7.5-325] 1 tab PO Q12 Paroxetine HCl [Paxil] 40 mg PO QPM 03/15/18 Topiramate [Topamax] 50 mg PO Q12 03/15/18 History of Present Illness History of Present Illness: ERICH GOODMAN is a 32 year old female, She has end-stage renal disease on maintenance hemodialysis she presented to the emergency room with acute pulmonary edema associated with acute hypoxemic respiratory failure due to volume overload. She missed hemodialysis session,She has presented in this fashion multiple times, there was hyperkalemia, she was seen by the chalker soles and emergently hemodialyzed. Hospital Course Hospital Course: She was admitted for the management of acute hypoxemic respiratory failure due to pulmonary edema from end-stage renal disease, there was associated hyperkalemia. She was emergently hemodialyzed with improvement in symptoms, she was discharged home today. She was seen in consultation by the [facility]er soles , Dr. Gustavo Kwon Physical Exam Vital Signs: Temp Pulse Resp BP Pulse Ox 98.4 F 69 18 132/82 H 99 03/17/18 14:46 03/17/18 14:46 03/17/18 14:46 03/17/18 14:46 03/17/18 14:46 Intake & Output 03/16/18 03/17/18 03/18/18 06:59 06:59 06:59 Intake Total 236 2026 Output Total 4900 3800 Balance -5574 -1774 Weight 114.8 kg 112.7 kg General appearance: PRESENT: no acute distress, well-developed, well-nourished Head exam: PRESENT: atraumatic, normocephalic Eye exam: PRESENT: conjunctiva pink, EOMI, PERRLA Ear exam: PRESENT: normal external ear exam Mouth exam: PRESENT: moist, tongue midline Neck exam: PRESENT: full ROM Respiratory exam: PRESENT: clear to auscultation freddy Cardiovascular exam: PRESENT: RRR, +S1, +S2 Vascular exam: PRESENT: normal capillary refill GI/Abdominal exam: PRESENT: normal bowel sounds, soft Rectal exam: PRESENT: deferred Neurological exam: PRESENT: alert, awake, oriented to person, oriented to place , oriented to time, oriented to situation, CN II-XII grossly intact Psychiatric exam: PRESENT: appropriate affect, normal mood Skin exam: PRESENT: dry, intact, warm Results Laboratory Results: 03/16/18 08:50 03/16/18 08:50 Impressions: Chest X-Ray 03/15/18 05:29 IMPRESSION: Mild pulmonary edema pattern. Differential diagnosis includes multifocal pneumonia. Qualifiers - * PATIENT BEING DISCHARGED WITH ANY OF THE FOLLOWING DIAGNOSIS: No
== END 2018-03-17 15:25 | disposition home or self-care (01) | DRG 291 ==
LOC: ER 05:11 → EH 05:56 → OBSVTOIN 08:24 → 3W 19:48
PROVIDERS: ADMIT Internal Medicine; ATTEND Internal Medicine
PROC: 5A1D70Z Performance of Urinary Filtration, Intermittent, Less than 6 Hours Per Day (ICD-10-PCS; principal; 2018-03-15)
PROC: 5A09457 Assistance with Respiratory Ventilation, 24-96 Consecutive Hours, Continuous Positive Airway Pressure (ICD-10-PCS; 2018-03-15)
PROC: 5A1D70Z Performance of Urinary Filtration, Intermittent, Less than 6 Hours Per Day (ICD-10-PCS; 2018-03-16)
DX: I13.2 Hypertensive heart and chronic kidney disease with heart failure and with stage 5 chronic kidney disease, or end stage renal disease (principal); N18.6 End stage renal disease; I50.33 Acute on chronic diastolic (congestive) heart failure; J96.01 Acute respiratory failure with hypoxia; N25.81 Secondary hyperparathyroidism of renal origin; E10.319 Type 1 diabetes mellitus with unspecified diabetic retinopathy without macular edema; E10.40 Type 1 diabetes mellitus with diabetic neuropathy, unspecified; E10.22 Type 1 diabetes mellitus with diabetic chronic kidney disease; E10.65 Type 1 diabetes mellitus with hyperglycemia; I25.10 Atherosclerotic heart disease of native coronary artery without angina pectoris; L40.9 Psoriasis, unspecified; G43.909 Migraine, unspecified, not intractable, without status migrainosus; F32.9 Major depressive disorder, single episode, unspecified; E87.70 Fluid overload, unspecified; E87.5 Hyperkalemia; R01.1 Cardiac murmur, unspecified; Z88.6 Allergy status to analgesic agent; Z99.2 Dependence on renal dialysis; Z90.49 Acquired absence of other specified parts of digestive tract; Z79.4 Long term (current) use of insulin; Z91.15 Patient's noncompliance with renal dialysis; Z88.1 Allergy status to other antibiotic agents; Z91.19 Patient's noncompliance with other medical treatment and regimen; Z79.51 Long term (current) use of inhaled steroids; Z79.899 Other long term (current) drug therapy
CPT/HCPCS: 36415; 71045; 80048; 80053; 82962; 83036; 85025; 85027; 93005; 93010; 94660; 96374; 96375; 99285; J1644; J1815; J1940; J2405; J3490

== ENCOUNTER 2018-07-12 21:51 | Emergency (ER) | payer MEDICARE, MEDICAID ==
[2018-07-12 22:04] VITALS: BP 145/80
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
== END 2018-07-13 00:30 | disposition home or self-care (01) ==
LOC: ER 21:51
DX: S60.221A Contusion of right hand, initial encounter (principal); M79.641 Pain in right hand; M79.89 Other specified soft tissue disorders; W50.1XXA Accidental kick by another person, initial encounter; I25.10 Atherosclerotic heart disease of native coronary artery without angina pectoris; I10 Essential (primary) hypertension; J45.909 Unspecified asthma, uncomplicated; E10.9 Type 1 diabetes mellitus without complications
CPT/HCPCS: 99283

== ENCOUNTER 2018-07-20 21:23 | Emergency (ER) | payer MEDICARE, MEDICAID ==
[2018-07-21] MEDS ORDERED: SULFAMETHOXAZOLE/TRIMETHOPRIM 800-160 MG TABLET PO ONE (01:00)
--- NOTE | 2018-07-21 01:35 | ER Document Report ---
ED General - General Chief Complaint: Headache Stated Complaint: FACIAL SWELLING,PAIN,HEADACHE,DIZZINESS Time Seen by Provider: 07/21/18 01:00 Mode of Arrival: Ambulatory Information source: Patient Notes: 33-year-old female who presents to the emergency room with facial swelling, pain , headache and dizziness. Patient does state she has a history of a facial cellulitis and she could not discern with the fact that she may be developing that again. She does feel facial warmth. She states she has had low-grade fever. And some pain to the face itself. She denies any vision changes, difficulty swallowing, earache. TRAVEL OUTSIDE OF THE [place] IN LAST 30 DAYS: No - HPI Onset: Last week Onset/Duration: Gradual Quality of pain: Dull Severity: Mild Pain Level: 1 Associated symptoms: denies: Chest pain, Fever, Shortness of breath Exacerbated by: Denies Relieved by: Denies Similar symptoms previously: Yes Recently seen / treated by doctor: No - Related Data Allergies/Adverse Reactions: aspirin [Aspirin] Allergy (Verified 07/21/18 02:07) Anaphylaxis ciprofloxacin [From Cipro] Allergy (Verified 07/21/18 02:07) Anaphylaxis clindamycin [Clindamycin] Allergy (Verified 07/21/18 02:07) hydrocodone [From Vicodin] Allergy (Verified 07/21/18 02:07) ibuprofen [From Motrin] Allergy (Verified 07/21/18 02:07) Anaphylaxis lidocaine [From Lidoderm] Allergy (Verified 07/21/18 02:07) Generalized rash tramadol HCl [From Ultram] Allergy (Verified 07/21/18 02:07) vancomycin [Vancomycin] Allergy (Verified 07/21/18 02:07) Shortness of Breath nitroglycerin [Nitroglycerin] Adverse Reaction (Intermediate, Verified 07/21/18 02:07) Joint pain Past Medical History - General Information source: Patient - Social History Smoking Status: Never Smoker Cigarette use (# per day): No Chew tobacco use (# tins/day): No Frequency of alcohol use: None Drug Abuse: None Lives with: Family Family History: Reviewed & Not Pertinent Patient has suicidal ideation: No Patient has homicidal ideation: No - Past Medical History Cardiac Medical History: Reports: Hx Congestive Heart Failure, Hx Coronary Artery Disease, Hx Hypertension, Hx Heart Murmur Pulmonary Medical History: Reports: Hx Asthma, Hx Pneumonia Neurological Medical History: Reports: Hx Migraine, Hx Seizures Endocrine Medical History: Reports: Hx Diabetes Mellitus Type 1, Hx Diabetes Mellitus Type 2 Renal/ Medical History: Reports: Hx End Stage Renal Disease - On hemodialysis MWF, Hx Hemodialysis, Hx Ovarian Cysts. Denies: Hx Peritoneal Dialysis Malignancy Medical History: GI Medical History: Reports: Hx Gastritis. Denies: Hx Pancreatitis Musculoskeletal Medical History: Skin Medical History: Reports Hx Psoriasis Psychiatric Medical History: Reports: Hx Depression Traumatic Medical History: Infectious Medical History: Past Surgical History: Reports: Hx Appendectomy, Hx Cholecystectomy, Hx Vascular Surgery - Left arm fistula; Perm Cath -Right Chest, right arm fistula - Immunizations Immunizations up to date: Yes Hx Diphtheria, Pertussis, Tetanus Vaccination: Yes Hx Pneumococcal Vaccination: 08/22/11 Review of Systems - Review of Systems Constitutional: denies: Chills, Fever EENT: See HPI Cardiovascular: denies: Chest pain, Palpitations, Heart racing, Orthopnea Respiratory: denies: Cough, Hemoptysis, Short of breath Gastrointestinal: denies: Abdomen distended, Abdominal pain, Diarrhea Genitourinary: No symptoms reported Female Genitourinary: No symptoms reported Musculoskeletal: No symptoms reported Skin: See HPI Hematologic/Lymphatic: No symptoms reported Neurological/Psychological: No symptoms reported Physical Exam - Vital signs Vitals: Temp Pulse BP Pulse Ox 99.2 F 103 H 184/99 H 97 07/20/18 21:47 07/20/18 21:47 07/20/18 21:47 07/20/18 21:47 Notes: Physical exam: GENERAL: A 3-year-old female, alert and oriented 3, no acute distress. She is resting comfortably in bed with her boyfriend. HEAD: Atraumatic, normocephalic. EYES: Pupils equal round and reactive to light, extraocular movements intact, sclera anicteric, conjunctiva are normal. Face: Mild erythema around the nose was. There is no fluctuance. There is no obvious abscesses. There is no advanced cellulitis of the face. ENT: TMs normal, nares patent, oropharynx clear without exudates. Moist mucous membranes. NECK: Normal range of motion, supple without obvious mass or JVD. LUNGS: Breath sounds clear to auscultation bilaterally and equal. No wheezes rales or rhonchi. HEART: Regular rate and rhythm without murmurs, rubs or gallops. ABDOMEN: Soft, normoactive bowel sounds. No tenderness to palpation. No guarding, no rebound. No masses appreciated. EXTREMITIES: Normal range of motion, no pitting or edema. No clubbing or cyanosis. NEUROLOGICAL: Cranial nerves II through XII grossly intact. Normal speech, moving all extremities. PSYCH: Normal mood, normal affect. SKIN: Mild erythema around the nose, no fluctuance Course - Vital Signs Vital signs: Temp Pulse Resp BP Pulse Ox 98.4 F 95 16 140/81 H 100 07/21/18 02:36 07/21/18 02:36 07/21/18 02:36 07/21/18 02:36 07/21/18 02:36 Discharge - Discharge Clinical Impression: Facial cellulitis Condition: Stable Disposition: HOME, SELF-CARE Additional Instructions: Recommendations: Follow-up with Dr. Hernandez on Wednesday. Take the antibiotics as prescribed. Continue current medicines. Prescriptions: Sulfamethoxazole/Trimethoprim [Bactrim Ds Tablet] 1 each PO DAILY #7 tablet Referrals: HILARY HERNANDEZ MD [Primary Care Provider] - Follow up in 3-5 days
[2018-07-21 02:36] VITALS: BP 140/81
== END 2018-07-21 02:20 | disposition home or self-care (01) ==
LOC: ER 21:23
DX: L03.211 Cellulitis of face (principal); R51 Headache; R42 Dizziness and giddiness; I50.9 Heart failure, unspecified; I25.10 Atherosclerotic heart disease of native coronary artery without angina pectoris; I13.2 Hypertensive heart and chronic kidney disease with heart failure and with stage 5 chronic kidney disease, or end stage renal disease; E11.22 Type 2 diabetes mellitus with diabetic chronic kidney disease; N18.6 End stage renal disease; Z99.2 Dependence on renal dialysis; Z88.6 Allergy status to analgesic agent; Z88.3 Allergy status to other anti-infective agents; Z90.49 Acquired absence of other specified parts of digestive tract
CPT/HCPCS: 99284; A9270

== ENCOUNTER 2018-08-02 12:30 | Emergency (ER) | payer MEDICARE, MEDICAID ==
[2018-08-02 13:06] VITALS: BP 104/60
== END 2018-08-02 13:16 | disposition left against medical advice (07) ==
LOC: ER 12:30
DX: Z53.21 Procedure and treatment not carried out due to patient leaving prior to being seen by health care provider (principal)

== ENCOUNTER 2018-08-02 17:08 | Emergency (ER) | payer MEDICARE, MEDICAID ==
--- NOTE | 2018-08-02 17:26 | ER Document Report ---
HPI - HPI Patient complains to provider of: needs medication refills Quality of pain: No pain Pain Level: Denies Context: 33 yo female dialysis pt. went to get her prescription refilled by [facility] and found that the office was closed. She ran out of her Xanax 0.5 mg that she takes twice daily and oxcarbazepine 300 mg that she takes twice daily. She also states she needs Kayexalate because she went to pharmacies and they did not have that she is supposed to take 15 mL's every day until she gets dialysis. She had dialysis wednesday and is evacuating to [place] and will set up dialysis when she gets there. I have called Dr. Gustavo Kwon to confirm about the Kaexolate. Pt has no symptoms. Associated Symptoms: None Exacerbated by: Denies Relieved by: Denies - REPRODUCTIVE Reproductive: DENIES: : Past Medical History - General Information source: Patient - Social History Smoking Status: Unknown if Ever Smoked Family History: Reviewed & Not Pertinent - Past Medical History Cardiac Medical History: Reports: Hx Congestive Heart Failure, Hx Coronary Artery Disease, Hx Hypertension, Hx Heart Murmur Pulmonary Medical History: Reports: Hx Asthma, Hx Pneumonia Neurological Medical History: Reports: Hx Migraine, Hx Seizures Endocrine Medical History: Reports: Hx Diabetes Mellitus Type 1, Hx Diabetes Mellitus Type 2 Renal/ Medical History: Reports: Hx End Stage Renal Disease - On hemodialysis MWF, Hx Hemodialysis, Hx Ovarian Cysts. Denies: Hx Peritoneal Dialysis Malignancy Medical History: GI Medical History: Reports: Hx Gastritis. Denies: Hx Pancreatitis Musculoskeletal Medical History: Skin Medical History: Reports Hx Psoriasis Psychiatric Medical History: Reports: Hx Depression Traumatic Medical History: Infectious Medical History: Past Surgical History: Reports: Hx Appendectomy, Hx Cholecystectomy, Hx Vascular Surgery - Left arm fistula; Perm Cath -Right Chest, right arm fistula - Immunizations Immunizations up to date: Yes Hx Diphtheria, Pertussis, Tetanus Vaccination: Yes Hx Pneumococcal Vaccination: 08/22/11 Vertical Provider Document - CONSTITUTIONAL Agree With Documented VS: Yes Exam Limitations: No Limitations - INFECTION CONTROL TRAVEL OUTSIDE OF THE [place] IN LAST 30 DAYS: No - HEENT HEENT: Normocephalic - NECK Neck: Supple - RESPIRATORY Respiratory: Breath Sounds Normal, No Respiratory Distress - CARDIOVASCULAR Cardiovascular: Regular Rate, Regular Rhythm - MUSCULOSKELETAL/EXTREMETIES Musculoskeletal/Extremeties: MAEW - NEURO Level of Consciousness: Awake, Alert, Appropriate Motor/Sensory: No Motor Deficit, No Sensory Deficit - DERM Integumentary: No Rash Course - Re-evaluation Re-evalutation: 08/02/18 18:[address] Kwon and explained that Raheem wants to take 15 mL's daily 15gm/60ml until she gets dialysis he thought that she should take 15 g every other day but then he said that she is a she knows what to do he is okay with a 15 mL's daily. - Vital Signs Vital signs: Temp Pulse Resp BP Pulse Ox 97.8 F 87 20 120/78 99 08/02/18 17:13 08/02/18 17:13 08/02/18 17:13 08/02/18 17:13 08/02/18 17:13 Discharge - Discharge Clinical Impression: Anxiety, Dialysis patient Condition: Good Disposition: HOME, SELF-CARE Instructions: Anxiety ([facility]), Benzodiazepines ([facility]) Additional Instructions: Seek care for your dialysis when you get to [place] Prescriptions: Alprazolam [Xanax 0.5 mg Tablet] 0.5 mg PO BIDP PRN #30 tab PRN Reason: Oxcarbazepine [Trileptal] 300 mg PO BID #60 tablet Referrals: HILARY HERNANDEZ MD [Primary Care Provider] - Follow up as needed
[2018-08-02] MEDS ORDERED: SODIUM POLYSTYRENE SULFONATE 15 GM/60 ML PO ONE (17:46)
[2018-08-02] MEDS ORDERED: SODIUM POLYSTYRENE SULFONATE 15 GM/60 ML ONE (17:52)
[2018-08-02 18:17] VITALS: BP 135/86
== END 2018-08-02 18:17 | disposition home or self-care (01) ==
LOC: ER 17:08
DX: I12.0 Hypertensive chronic kidney disease with stage 5 chronic kidney disease or end stage renal disease (principal); E11.22 Type 2 diabetes mellitus with diabetic chronic kidney disease; N18.6 End stage renal disease; Z99.2 Dependence on renal dialysis; F41.9 Anxiety disorder, unspecified; J45.909 Unspecified asthma, uncomplicated; I25.10 Atherosclerotic heart disease of native coronary artery without angina pectoris; Z79.899 Other long term (current) drug therapy
CPT/HCPCS: 99282

== ENCOUNTER 2018-08-14 21:02 | Emergency (ER) | payer MEDICARE, MEDICAID ==
[2018-08-14] MEDS ORDERED: IPRATROPIUM/ALBUTEROL 0.5-2.5 MG/3 ML AMPUL NEB ONE ×2 (21:07→21:09)
[2018-08-14 21:27] LABS: ABSOLUTE BASOPHILS # (AUTO) 0.1 10^3/uL (0.0-0.2); ABSOLUTE EOSINOPHILS # (AUTO) 0.8 10^3/uL (0.0-0.6); ABSOLUTE LYMPHOCYTES (AUTO) 1.4 10^3/uL (0.5-4.7); ABSOLUTE MONOCYTES (AUTO) 0.4 10^3/uL (0.1-1.4); ABSOLUTE NEUT (AUTO) 7.4 10^3/uL (1.7-8.2); HEMOGLOBIN 9.7 g/dL (12.0-15.5); LYMPHOCYTES % (AUTO) 13.4 % (13-45); MEAN CORPUSCULAR HEMOGLOBIN 29.6 pg (27.0-33.4); MEAN CORPUSCULAR HGB CONC 33.4 g/dL (32.0-36.0); MEAN CORPUSCULAR VOLUME 89 fl (80-97); MONOCYTES % (AUTO) 3.9 % (3-13); PLATELET COUNT 279 10^3/uL (150-450); RED BLOOD COUNT 3.28 10^6/uL (3.72-5.28); RED CELL DISTRIBUTION WIDTH 14.8 % (11.5-14.0); SEGMENTED NEUTROPHILS % (AUTO) 73.7 % (42-78); TOTAL CELLS COUNTED % (AUTO) 100 %; WHITE BLOOD COUNT 10.1 10^3/uL (4.0-10.5)
[2018-08-14 21:38] LABS: INTERNATIONAL RATION (INR) 0.95; PROTHROMBIN TIME 13.1 SEC (11.4-15.4)
[2018-08-14 21:40] LABS: VENOUS BLOOD BASE EXCESS -2.7 mmol/L; VENOUS BLOOD PCO2 47.7 mmHg (35-63); VENOUS BLOOD PH 7.32 (7.30-7.42)
--- NOTE | 2018-08-14 21:40 | RADIOLOGY REPORT (SQ) ---
EXAM DESCRIPTION: XR CHEST 1 VIEW COMPLETED DATE/TME: 08/14/2018 21:08 CLINICAL HISTORY: 33 years, Female, sob COMPARISON: None. Findings: Heart is mildly enlarged. Moderate bilateral perihilar and lower lobe airspace disease which may represent pneumonia or pulmonary edema. No pneumothorax. No pleural effusion. IMPRESSION: Bilateral lower lobe pneumonia versus pulmonary edema.
--- NOTE | 2018-08-14 21:49 | ER Document Report ---
ED General - General Chief Complaint: Respiratory Distress Stated Complaint: BREATHING DIFFICULTY Time Seen by Provider: 08/14/18 21:08 Mode of Arrival: Medic Information source: Patient, Emergency Med Personnel, [facility] Records Notes: 33-year-old female with hypertension, congestive heart failure, coronary artery disease, end-stage renal disease, type 1 diabetes presents via EMS with complaint of shortness of breath that started 1 hour prior to arrival. Patient on able to give history. Patient does undergo dialysis Wednesday and Wednesday. She states she has not missed any dialysis. She does report swelling in her hands and face and lower extremities. Patient complaining of myalgia. TRAVEL OUTSIDE OF THE [place] IN LAST 30 DAYS: No - HPI Onset: Just prior to arrival Onset/Duration: Sudden Quality of pain: Achy Severity: Mild Associated symptoms: Body/muscle aches, Productive cough, Shortness of breath Exacerbated by: Denies Relieved by: Denies Similar symptoms previously: Yes Recently seen / treated by doctor: Yes - Related Data Allergies/Adverse Reactions: aspirin [Aspirin] Allergy (Verified 08/02/18 17:08) Anaphylaxis ciprofloxacin [From Cipro] Allergy (Verified 08/02/18 17:08) Anaphylaxis clindamycin [Clindamycin] Allergy (Verified 08/02/18 17:08) hydrocodone [From Vicodin] Allergy (Verified 08/02/18 17:08) ibuprofen [From Motrin] Allergy (Verified 08/02/18 17:08) Anaphylaxis lidocaine [From Lidoderm] Allergy (Verified 08/02/18 17:08) Generalized rash tramadol HCl [From Ultram] Allergy (Verified 08/02/18 17:08) vancomycin [Vancomycin] Allergy (Verified 08/02/18 17:08) Shortness of Breath nitroglycerin [Nitroglycerin] Adverse Reaction (Intermediate, Verified 08/02/18 17:08) Joint pain Past Medical History - General Information source: Patient - Social History Smoking Status: Never Smoker Frequency of alcohol use: None Drug Abuse: None Lives with: Family Family History: Reviewed & Not Pertinent Patient has suicidal ideation: No Patient has homicidal ideation: No - Past Medical History Cardiac Medical History: Reports: Hx Congestive Heart Failure, Hx Coronary Artery Disease, Hx Hypertension, Hx Heart Murmur Pulmonary Medical History: Reports: Hx Asthma, Hx Pneumonia Neurological Medical History: Reports: Hx Migraine, Hx Seizures Endocrine Medical History: Reports: Hx Diabetes Mellitus Type 1, Hx Diabetes Mellitus Type 2 Renal/ Medical History: Reports: Hx End Stage Renal Disease - On hemodialysis MWF, Hx Hemodialysis, Hx Ovarian Cysts. Denies: Hx Peritoneal Dialysis Malignancy Medical History: GI Medical History: Reports: Hx Gastritis. Denies: Hx Pancreatitis Musculoskeletal Medical History: Skin Medical History: Reports Hx Psoriasis Psychiatric Medical History: Reports: Hx Depression Traumatic Medical History: Infectious Medical History: Past Surgical History: Reports: Hx Appendectomy, Hx Cholecystectomy, Hx Vascular Surgery - Left arm fistula; Perm Cath -Right Chest, right arm fistula - Immunizations Immunizations up to date: Yes Hx Diphtheria, Pertussis, Tetanus Vaccination: Yes Hx Pneumococcal Vaccination: 08/22/11 Review of Systems - Review of Systems Constitutional: Weakness EENT: denies: Blurred vision, Difficulty swallowing Cardiovascular: Palpitations, Lightheaded Respiratory: Cough, Short of breath Gastrointestinal: denies: Abdominal pain, Nausea, Vomiting Genitourinary: No symptoms reported Female Genitourinary: No symptoms reported Musculoskeletal: Muscle pain, Leg swelling Skin: denies: Rash Hematologic/Lymphatic: No symptoms reported Neurological/Psychological: Headaches Physical Exam - Vital signs Vitals: Temp Resp BP Pulse Ox 99.9 F 29 H 130/85 H 100 08/14/18 21:07 08/14/18 21:07 08/14/18 21:07 08/14/18 21:07 Interpretation: Tachypneic. No: Tachycardic, Hypoxic, Febrile - Notes Notes: PHYSICAL EXAMINATION: GENERAL: Ill-appearing, moderate distress HEAD: Atraumatic, normocephalic. EYES: Pupils equal round and reactive to light, extraocular movements intact, conjunctiva are normal. ENT: Nares patent, oropharynx clear without exudates. Dry mucous membranes. NECK: Normal range of motion, supple without lymphadenopathy LUNGS: Diminished breath sounds in all lung mckeon. No wheezing appreciated. HEART: Regular rate and rhythm without murmurs ABDOMEN: Soft, nontender, nondistended abdomen. No guarding, no rebound. No masses appreciated. Female : deferred Musculoskeletal: Normal range of motion,1 +edema. No cyanosis. NEUROLOGICAL: GCS 13 PSYCH: Mild agitation SKIN: Warm, Dry, normal turgor, no rashes or lesions noted. Course - Re-evaluation Re-evalutation: 08/15/18 00:52 Laboratory 08/14/18 08/14/18 08/14/18 21:13 21:13 21:13 WBC 10.1 RBC 3.28 L Hgb 9.7 L Hct 29.0 L MCV 89 MCH 29.6 MCHC 33.4 RDW 14.8 H Plt Count 279 Seg Neutrophils % 73.7 Lymphocytes % 13.4 Monocytes % 3.9 Eosinophils % 8.0 H Basophils % 1.0 Absolute Neutrophils 7.4 Absolute Lymphocytes 1.4 Absolute Monocytes 0.4 Absolute Eosinophils 0.8 H Absolute Basophils 0.1 PT 13.1 INR 0.95 VBG pH VBG pCO2 VBG HCO3 VBG Base Excess Sodium 132.2 L Potassium 5.6 H Chloride 92 L Carbon Dioxide 24 Anion Gap 16 BUN 54 H Creatinine 11.42 H Est GFR ( Amer) 5 L Est GFR (Non-Af Amer) 4 L Glucose 413 H* Lactic Acid Calcium 6.8 L* Total Bilirubin 0.7 Direct Bilirubin 0.7 H Neonat Total Bilirubin Not Reportable Neonat Direct Bilirubin Not Reportable Neonat Indirect Bili Not Reportable AST 19 ALT 7 L Alkaline Phosphatase 119 NT-Pro-B Natriuret Pep Total Protein 8.1 Albumin 4.1 Serum HCG, Qual 08/14/18 08/14/18 08/14/18 21:13 21:13 21:13 WBC RBC Hgb Hct MCV MCH MCHC RDW Plt Count Seg Neutrophils % Lymphocytes % Monocytes % Eosinophils % Basophils % Absolute Neutrophils Absolute Lymphocytes Absolute Monocytes Absolute Eosinophils Absolute Basophils PT INR VBG pH 7.32 VBG pCO2 47.7 VBG HCO3 24.0 VBG Base Excess -2.7 Sodium Potassium Chloride Carbon Dioxide Anion Gap BUN Creatinine Est GFR ( Amer) Est GFR (Non-Af Amer) Glucose Lactic Acid 1.4 Calcium Total Bilirubin Direct Bilirubin Neonat Total Bilirubin Neonat Direct Bilirubin Neonat Indirect Bili AST ALT Alkaline Phosphatase NT-Pro-B Natriuret Pep Total Protein Albumin Serum HCG, Qual NEGATIVE 08/14/18 21:13 WBC RBC Hgb Hct MCV MCH MCHC RDW Plt Count Seg Neutrophils % Lymphocytes % Monocytes % Eosinophils % Basophils % Absolute Neutrophils Absolute Lymphocytes Absolute Monocytes Absolute Eosinophils Absolute Basophils PT INR VBG pH VBG pCO2 VBG HCO3 VBG Base Excess Sodium Potassium Chloride Carbon Dioxide Anion Gap BUN Creatinine Est GFR ( Amer) Est GFR (Non-Af Amer) Glucose Lactic Acid Calcium Total Bilirubin Direct Bilirubin Neonat Total Bilirubin Neonat Direct Bilirubin Neonat Indirect Bili AST ALT Alkaline Phosphatase NT-Pro-B Natriuret Pep 33721 H Total Protein Albumin Serum HCG, Qual Chest X-Ray 08/14/18 21:08 IMPRESSION: Bilateral lower lobe pneumonia versus pulmonary edema. 33-year-old female with congestive heart failure, end-stage renal disease, type 1 diabetes presents in respiratory distress via EMS. EMS reports that the patient was not found hypoxic upon arrival but she was tripoding, with increased work of breathing. She was placed on BiPAP and has appeared more comfortable. Upon arrival patient is still tripoding, unable to speak in full sentences, and has accessory muscle use. Patient has diminished breath sounds, edema to her face and hands as well as 1+ pitting edema. Breathing treatments initially initiated. Nitro was going to be administered but patient states that she is highly allergic. Lasix was administered. Chest x-ray was obtained and read bilateral lobe pneumonia versus pulmonary edema. Patient's BNP is 13, 700. CMP is consistent with end-stage renal disease. Patient found to have significantly low calcium. CBC is without leukocytosis but does show anemia which is the patient's baseline. Venous blood gas within normal limits. Lactate within normal limits. Patient did receive calcium gluconate, Lasix, insulin, cefepime. Patient resting more comfortably on BiPAP on reevaluation. I did speak to the patient's primary care physician who was willing to admit the patient to our ICU but because of the patient's dialysis needs and our lack of nephrology coverage until the beginning of August she will need to be transferred. Patient has been accepted by Dr. Caldwell from [facility]. 08/15/18 01:02 08/15/18 03:47 Patient reevaluated prior to transport to [facility]. She is stable for transport. - Vital Signs Vital signs: Temp Pulse Resp BP Pulse Ox 99.3 F 16 159/82 H 100 08/15/18 00:09 08/15/18 01:02 08/15/18 01:02 08/15/18 01:02 - Laboratory Result Diagrams: 08/14/18 21:13 08/14/18 21:13 Laboratory results interpreted by me: 08/14/18 08/14/18 08/14/18 21:13 21:13 21:13 RBC 3.28 L Hgb 9.7 L Hct 29.0 L RDW 14.8 H Eosinophils % 8.0 H Absolute Eosinophils 0.8 H Sodium 132.2 L Potassium 5.6 H Chloride 92 L BUN 54 H Creatinine 11.42 H Est GFR ( Amer) 5 L Est GFR (Non-Af Amer) 4 L Glucose 413 H* POC Glucose Calcium 6.8 L* Direct Bilirubin 0.7 H ALT 7 L NT-Pro-B Natriuret Pep 48630 H 08/15/18 00:59 RBC Hgb Hct RDW Eosinophils % Absolute Eosinophils Sodium Potassium Chloride BUN Creatinine Est GFR ( Amer) Est GFR (Non-Af Amer) Glucose POC Glucose 411 H* Calcium Direct Bilirubin ALT NT-Pro-B Natriuret Pep - Diagnostic Test Radiology reviewed: Image reviewed, Reports reviewed - EKG Interpretation by Me EKG shows normal: Sinus rhythm Rate: Normal Rhythm: NSR Heart block present: 1st Degree When compared to previous EKG there are: No significant change Critical Care Note - Critical Care Note Total time excluding time spent on procedures (mins): 40 - minutes of critical care time spent in direct contact evaluating and reevaluating the patient, treating symptoms, reviewing labs and studies and speaking with family and consultants excluding any procedures Discharge - Discharge Clinical Impression: ESRD (end stage renal disease) on dialysis, Acute on chronic diastolic heart failure, Respiratory distress, Diabetes mellitus type 1 with complications, Hypocalcemia, Hyperglycemia Anemia due to chronic kidney disease Qualifiers: Chronic kidney disease stage: unspecified stage Qualified Code(s): N18.9 - Chronic kidney disease, unspecified Pulmonary edema Qualifiers: Chronicity: acute Qualified Code(s): J81.0 - Acute pulmonary edema Volume overload Qualifiers: Hypervolemia type: unspecified Qualified Code(s): E87.70 - Fluid overload, unspecified Pneumonia Qualifiers: Pneumonia type: due to unspecified organism Laterality: bilateral Lung location : lower lobe of lung Qualified Code(s): J18.1 - Lobar pneumonia, unspecified organism Condition: Fair Disposition: [facility] Referrals: HILARY HERNANDEZ MD [Primary Care Provider] - Follow up as needed
[2018-08-14] MEDS ORDERED: CEFEPIME 1 GM/D5W RTU 1 GM/50 ML RTUPB IV SCH (22:00)
[2018-08-14] MEDS ORDERED: FUROSEMIDE INJ/PF 40 MG/4 ML SDV IV ONE (22:13)
[2018-08-14 22:39] LABS: ALANINE AMINOTRANSFERASE 7 U/L (9-52); ALBUMIN 4.1 g/dL (3.5-5.0); ALKALINE PHOSPHATASE 119 U/L (38-126); ANION GAP 16 (5-19); ASPARTATE AMINO TRANSFERASE 19 U/L (14-36); BILIRUBIN,DIRECT 0.7 mg/dL (0.0-0.4); BILIRUBIN,TOTAL 0.7 mg/dL (0.2-1.3); BLOOD UREA NITROGEN 54 mg/dL (7-20); CARBON DIOXIDE 24 mmol/L (22-30); CHLORIDE 92 mmol/L (98-107); POTASSIUM 5.6 mmol/L (3.6-5.0); SODIUM 132.2 mmol/L (137-145); TOTAL PROTEIN 8.1 g/dL (6.3-8.2)
[2018-08-14 22:53] LABS: CALCIUM 6.8 mg/dL (8.4-10.2); GLUCOSE 413 mg/dL (75-110)
[2018-08-14] MEDS ORDERED: CALCIUM GLUCONATE 1000 MG/10 ML INJ IV ONE (22:59)
[2018-08-14] MEDS ORDERED: FENTANYL CITRATE INJ/PF 100 MCG/2 ML AMPUL IV ONE (23:52)
[2018-08-14] MEDS ORDERED: NITROGLYCERIN 2% OINTMENT 1 GM PACKET TP ONE (23:58)
[2018-08-15] MEDS ORDERED: INSULIN REG, HUMAN 100 UNIT/ML 3 ML VIAL (PYX) IV ONE (00:15)
[2018-08-15] MEDS ORDERED: FENTANYL CITRATE INJ/PF 100 MCG/2 ML AMPUL IV ONE ×2 (03:42→03:46)
[2018-08-15] MEDS ORDERED: FENTANYL CITRATE INJ/PF 100 MCG/2 ML AMPUL ONE (03:43)
[2018-08-15 03:49] VITALS: BP 146/83
--- NOTE | 2018-08-15 08:46 | EKG REPORT ---
SEVERITY:- ABNORMAL ECG - SINUS RHYTHM FIRST DEGREE AV BLOCK PROBABLE LEFT ATRIAL ABNORMALITY BORDERLINE LEFT AXIS DEVIATION PROLONGED QT INTERVAL : Confirmed by: Daniela Lemons 15-Aug-2018 08:45:45
== END 2018-08-15 04:00 | disposition short-term general hospital (02) ==
LOC: ER 21:02
DX: I13.2 Hypertensive heart and chronic kidney disease with heart failure and with stage 5 chronic kidney disease, or end stage renal disease (principal); E10.22 Type 1 diabetes mellitus with diabetic chronic kidney disease; E10.65 Type 1 diabetes mellitus with hyperglycemia; N18.6 End stage renal disease; I50.33 Acute on chronic diastolic (congestive) heart failure; Z99.2 Dependence on renal dialysis; D63.1 Anemia in chronic kidney disease; J18.1 Lobar pneumonia, unspecified organism; E83.51 Hypocalcemia; J81.0 Acute pulmonary edema; E87.70 Fluid overload, unspecified; R53.1 Weakness; R00.2 Palpitations; R42 Dizziness and giddiness; R05 Cough; R06.02 Shortness of breath; M79.1 Myalgia; J45.909 Unspecified asthma, uncomplicated; Z88.5 Allergy status to narcotic agent; Z88.4 Allergy status to anesthetic agent; Z87.892 Personal history of anaphylaxis; Z88.6 Allergy status to analgesic agent; Z88.1 Allergy status to other antibiotic agents
CPT/HCPCS: 93005; 96376; 94640; 99291; 96375; 96365; 36415; 87040; 82962; 84703; 85025; 85610; 80053; 82803; 83605; 83880; 71045; 93010; 94660 ×2; J0610; J3010; J1940; A9270 ×2; J0692; J1815; J7620

== ENCOUNTER 2018-09-09 16:25 | Emergency (ER) | payer MEDICARE, MEDICAID ==
[2018-09-09 16:30] VITALS: BP 104/64
--- NOTE | 2018-09-09 16:44 | ER Document Report ---
ED Medical Screen (RME) - General Chief Complaint: Nausea/Vomiting Stated Complaint: NAUSEA Time Seen by Provider: 09/09/18 16:41 Notes: 33 years old female on dialysis, after dialysis started having nausea and vomited x2 and complain of diffuse abdominal pain therefore over here to be evaluated. On examination morbidly obese. TRAVEL OUTSIDE OF THE [place] IN LAST 30 DAYS: No - Related Data Allergies/Adverse Reactions: aspirin [Aspirin] Allergy (Verified 09/09/18 16:27) Anaphylaxis ciprofloxacin [From Cipro] Allergy (Verified 09/09/18 16:27) Anaphylaxis clindamycin [Clindamycin] Allergy (Verified 09/09/18 16:27) hydrocodone [From Vicodin] Allergy (Verified 09/09/18 16:27) ibuprofen [From Motrin] Allergy (Verified 09/09/18 16:27) Anaphylaxis lidocaine [From Lidoderm] Allergy (Verified 09/09/18 16:27) Generalized rash tramadol HCl [From Ultram] Allergy (Verified 09/09/18 16:27) vancomycin [Vancomycin] Allergy (Verified 09/09/18 16:27) Shortness of Breath nitroglycerin [Nitroglycerin] Adverse Reaction (Intermediate, Verified 09/09/18 16:27) Joint pain Past Medical History - Social History Family history: Reviewed & Not Pertinent - Past Medical History Cardiac Medical History: Reports: Hx Congestive Heart Failure, Hx Coronary Artery Disease, Hx Hypertension, Hx Heart Murmur Pulmonary Medical History: Reports: Hx Asthma, Hx Pneumonia Neurological Medical History: Reports: Hx Migraine, Hx Seizures Endocrine Medical History: Reports: Hx Diabetes Mellitus Type 1, Hx Diabetes Mellitus Type 2 Renal/ Medical History: Reports: Hx End Stage Renal Disease - On hemodialysis MWF, Hx Hemodialysis, Hx Ovarian Cysts. Denies: Hx Peritoneal Dialysis Malignancy Medical History: GI Medical History: Reports: Hx Gastritis. Denies: Hx Pancreatitis Musculoskeltal Medical History: Skin Medical History: Reports Hx Psoriasis Psychiatric Medical History: Reports: Hx Depression Traumatic Medical History: Infectious Medical History: Past Surgical History: Reports: Hx Appendectomy, Hx Cholecystectomy, Hx Vascular Surgery - Lt AV Fistula and graft; Rt AV fistula - Immunizations Immunizations up to date: Yes Hx Diphtheria, Pertussis, Tetanus Vaccination: Yes History of Influenza Vaccine for 08/2017 - 01/2018 Season: Yes Influenza Administration Date for 08/2017 - 01/2018 Season: 08/22/17 Physical Exam - Vital signs Vitals: Temp Pulse Resp BP Pulse Ox 98.1 F 88 18 104/64 98 09/09/18 16:26 09/09/18 16:26 09/09/18 16:26 09/09/18 16:26 09/09/18 16:26 Course - Vital Signs Vital signs: Temp Pulse Resp BP Pulse Ox 98.1 F 88 18 104/64 98 09/09/18 16:26 09/09/18 16:26 09/09/18 16:26 09/09/18 16:26 09/09/18 16:26 Doctor's Discharge - Discharge Referrals: HILARY HERNANDEZ MD [Primary Care Provider] - Follow up as needed
[2018-09-09 17:43] LABS: ABSOLUTE BASOPHILS # (AUTO) 0.1 10^3/uL (0.0-0.2); ABSOLUTE EOSINOPHILS # (AUTO) 0.7 10^3/uL (0.0-0.6); ABSOLUTE LYMPHOCYTES (AUTO) 1.2 10^3/uL (0.5-4.7); ABSOLUTE MONOCYTES (AUTO) 0.6 10^3/uL (0.1-1.4); ABSOLUTE NEUT (AUTO) 6.7 10^3/uL (1.7-8.2); BASOPHILS % (AUTO) 1.4 % (0-2); EOSINOPHILS % (AUTO) 7.1 % (0-6); HEMATOCRIT 32.1 % (36.0-47.0); HEMOGLOBIN 11.1 g/dL (12.0-15.5); LYMPHOCYTES % (AUTO) 12.8 % (13-45); MEAN CORPUSCULAR HGB CONC 34.6 g/dL (32.0-36.0); MEAN CORPUSCULAR VOLUME 90 fl (80-97); MONOCYTES % (AUTO) 6.9 % (3-13); PLATELET COUNT 361 10^3/uL (150-450); RED BLOOD COUNT 3.58 10^6/uL (3.72-5.28); RED CELL DISTRIBUTION WIDTH 15.6 % (11.5-14.0); SEGMENTED NEUTROPHILS % (AUTO) 71.8 % (42-78); TOTAL CELLS COUNTED % (AUTO) 100 %; WHITE BLOOD COUNT 9.3 10^3/uL (4.0-10.5)
--- NOTE | 2018-09-09 17:45 | RADIOLOGY REPORT (SQ) ---
EXAM DESCRIPTION: ACUTE ABDOMEN SERIES COMPLETED DATE/TIME: 09/09/2018 5:22 pm REASON FOR STUDY: Abdominal pain COMPARISON: None. NUMBER OF VIEWS: Three views. TECHNIQUE: Frontal chest, supine abdomen and upright/decubitus abdomen radiographic images acquired. LIMITATIONS: None. FINDINGS: CHEST: Lungs clear of infiltrates. FREE AIR: None. No abnormal gas collections. BOWEL GAS PATTERN: Nonobstructive pattern. Considerable stool is present. CALCIFICATIONS: No suspicious calcifications. HARDWARE: None in the abdomen. SOFT TISSUES: No gross mass or suggestion of organomegaly. BONES: Mild scoliosis. OTHER: No other significant finding. IMPRESSION: Constipation. TECHNICAL DOCUMENTATION: JOB ID: [id number] [employer]- All Rights Reserved Reading location - IP/workstation name: [email or web address]
[2018-09-09] MEDS ORDERED: PROMETHAZINE HCL 25 MG TABLET PO ONE (17:57)
--- NOTE | 2018-09-09 17:58 | ER Document Report ---
ED General - General Chief Complaint: Nausea/Vomiting Stated Complaint: NAUSEA Time Seen by Provider: 09/09/18 16:41 Mode of Arrival: Ambulatory Information source: Patient Notes: This is a 33-year-old female that presents to the emergency room with nausea, shortness of breath after dialysis. Patient does have a history of end-stage renal disease and gets hemodialysis. Patient did states she vomited twice. She does have a history of insulin requiring diabetes and her blood sugar was 347. TRAVEL OUTSIDE OF THE [place] IN LAST 30 DAYS: No - HPI Onset: Just prior to arrival Onset/Duration: Gradual Quality of pain: No pain Severity: None Pain Level: Denies Associated symptoms: Nausea, Shortness of breath. denies: Chest pain, Nonproductive cough, Productive cough, Fever Exacerbated by: Denies Relieved by: Denies Similar symptoms previously: Yes Recently seen / treated by doctor: Yes - Related Data Allergies/Adverse Reactions: aspirin [Aspirin] Allergy (Verified 09/09/18 16:27) Anaphylaxis ciprofloxacin [From Cipro] Allergy (Verified 09/09/18 16:27) Anaphylaxis clindamycin [Clindamycin] Allergy (Verified 09/09/18 16:27) hydrocodone [From Vicodin] Allergy (Verified 09/09/18 16:27) ibuprofen [From Motrin] Allergy (Verified 09/09/18 16:27) Anaphylaxis lidocaine [From Lidoderm] Allergy (Verified 09/09/18 16:27) Generalized rash tramadol HCl [From Ultram] Allergy (Verified 09/09/18 16:27) vancomycin [Vancomycin] Allergy (Verified 09/09/18 16:27) Shortness of Breath nitroglycerin [Nitroglycerin] Adverse Reaction (Intermediate, Verified 09/09/18 16:27) Joint pain Past Medical History - General Information source: Patient - Social History Smoking Status: Never Smoker Cigarette use (# per day): No Chew tobacco use (# tins/day): No Frequency of alcohol use: None Drug Abuse: None Lives with: Family Family History: Reviewed & Not Pertinent Patient has suicidal ideation: No Patient has homicidal ideation: No - Past Medical History Cardiac Medical History: Reports: Hx Congestive Heart Failure, Hx Coronary Artery Disease, Hx Hypertension, Hx Heart Murmur Pulmonary Medical History: Reports: Hx Asthma, Hx Pneumonia Neurological Medical History: Reports: Hx Migraine, Hx Seizures Endocrine Medical History: Reports: Hx Diabetes Mellitus Type 1, Hx Diabetes Mellitus Type 2 Renal/ Medical History: Reports: Hx End Stage Renal Disease - On hemodialysis MWF, Hx Hemodialysis, Hx Ovarian Cysts. Denies: Hx Peritoneal Dialysis Malignancy Medical History: GI Medical History: Reports: Hx Gastritis. Denies: Hx Pancreatitis Musculoskeletal Medical History: Skin Medical History: Reports Hx Psoriasis Psychiatric Medical History: Reports: Hx Depression Traumatic Medical History: Infectious Medical History: Past Surgical History: Reports: Hx Appendectomy, Hx Cholecystectomy, Hx Vascular Surgery - Lt AV Fistula and graft; Rt AV fistula - Immunizations Immunizations up to date: Yes Hx Diphtheria, Pertussis, Tetanus Vaccination: Yes Hx Pneumococcal Vaccination: 08/22/11 Review of Systems - Review of Systems Constitutional: denies: Chills, Fever EENT: No symptoms reported Cardiovascular: No symptoms reported. denies: Chest pain, Palpitations, Heart racing Respiratory: See HPI Gastrointestinal: Nausea. denies: Abdominal pain Genitourinary: No symptoms reported Female Genitourinary: No symptoms reported Musculoskeletal: No symptoms reported Skin: No symptoms reported Hematologic/Lymphatic: No symptoms reported Neurological/Psychological: No symptoms reported Physical Exam - Vital signs Vitals: Temp Pulse Resp BP Pulse Ox 98.1 F 88 18 104/64 98 09/09/18 16:26 09/09/18 16:26 09/09/18 16:26 09/09/18 16:26 09/09/18 16:26 Notes: Physical exam: GENERAL: Patient is alert and oriented x3, she does complain of nausea HEAD: Atraumatic, normocephalic. EYES: Pupils equal round and reactive to light, extraocular movements intact, sclera anicteric, conjunctiva are normal. ENT: TMs normal, nares patent, oropharynx clear without exudates. Moist mucous membranes. NECK: Normal range of motion, supple without obvious mass or JVD. LUNGS: Breath sounds clear to auscultation bilaterally and equal. No wheezes rales or rhonchi. HEART: Regular rate and rhythm without murmurs, rubs or gallops. ABDOMEN: Soft, normoactive bowel sounds. No tenderness to palpation. No guarding, no rebound. No masses appreciated. EXTREMITIES: Normal range of motion, no pitting or edema. No clubbing or cyanosis. NEUROLOGICAL: Cranial nerves II through XII grossly intact. Normal speech, moving all extremities. PSYCH: Normal mood, normal affect. SKIN: Warm, Dry, normal turgor, no rashes or lesions noted. Course - Re-evaluation Re-evalutation: 09/09/18 20:37 Patient is resting comfortably. She is not tachypneic and in no respiratory distress. She states that after dialysis she was short of breath but that is resolved spontaneously. She does states she gets that every once in a while. She has been nauseated and she responded well to the Phenergan. I will send her home with some Phenergan. She will follow-up with her primary care doctor ( Dr. Mancera). - Vital Signs Vital signs: Temp Pulse Resp BP Pulse Ox 98.1 F 88 18 104/64 98 09/09/18 16:26 09/09/18 16:26 09/09/18 16:26 09/09/18 16:26 09/09/18 16:26 - Laboratory Result Diagrams: 09/09/18 17:36 09/09/18 19:18 Laboratory results interpreted by me: 09/09/18 09/09/18 17:36 19:18 RBC 3.58 L Hgb 11.1 L Hct 32.1 L RDW 15.6 H Lymphocytes % 12.8 L Eosinophils % 7.1 H Absolute Eosinophils 0.7 H Sodium 136.0 L Chloride 92 L Creatinine 4.47 H Est GFR ( Amer) 14 L Est GFR (Non-Af Amer) 11 L Glucose 326 H Alkaline Phosphatase 150 H Total Protein 8.4 H - Diagnostic Test Radiology reviewed: Image reviewed, Reports reviewed - No obvious signs of obstruction Discharge - Discharge Clinical Impression: Dyspnea resolved, Nausea Condition: Stable Disposition: HOME, SELF-CARE Instructions: Nausea or Vomiting, Nonspecific ([facility]) Additional Instructions: Recommendations: Rest, drink plenty of fluids, follow-up with Dr. Mancera is planned. Follow-up with dialysis. Take Phenergan for nausea. Into the emergency room for worsening shortness of breath, worsening nausea or not tolerating fluids. Prescriptions: Promethazine HCl [Phenergan 25 mg Tablet] 25 mg PO Q6H PRN #15 tablet PRN Reason: Referrals: HILARY HERNANDEZ MD [Primary Care Provider] - 09/12/18
[2018-09-09 19:52] LABS: ALANINE AMINOTRANSFERASE 9 U/L (9-52); ALBUMIN 4.4 g/dL (3.5-5.0); ALKALINE PHOSPHATASE 150 U/L (38-126); ANION GAP 18 (5-19); ASPARTATE AMINO TRANSFERASE 15 U/L (14-36); BILIRUBIN,DIRECT 0.3 mg/dL (0.0-0.4); BILIRUBIN,TOTAL 0.4 mg/dL (0.2-1.3); BLOOD UREA NITROGEN 16 mg/dL (7-20); CARBON DIOXIDE 26 mmol/L (22-30); CHLORIDE 92 mmol/L (98-107); GLUCOSE 326 mg/dL (75-110); POTASSIUM 4.7 mmol/L (3.6-5.0); TOTAL PROTEIN 8.4 g/dL (6.3-8.2)
== END 2018-09-09 20:58 | disposition home or self-care (01) ==
LOC: ER 16:25
DX: R11.2 Nausea with vomiting, unspecified (principal); J45.909 Unspecified asthma, uncomplicated; R06.02 Shortness of breath; I12.0 Hypertensive chronic kidney disease with stage 5 chronic kidney disease or end stage renal disease; E11.22 Type 2 diabetes mellitus with diabetic chronic kidney disease; N18.6 End stage renal disease; Z99.2 Dependence on renal dialysis; Z79.4 Long term (current) use of insulin; I25.10 Atherosclerotic heart disease of native coronary artery without angina pectoris; Z88.5 Allergy status to narcotic agent; Z88.4 Allergy status to anesthetic agent; Z87.892 Personal history of anaphylaxis; Z88.6 Allergy status to analgesic agent; Z88.1 Allergy status to other antibiotic agents
CPT/HCPCS: 99284; 36415; 85025; 80053; 74022; A9270

== ENCOUNTER 2018-10-05 08:39 | Inpatient (IN) | payer MEDICARE, MEDICAID ==
[2018-10-05 11:16] LABS: ABSOLUTE EOSINOPHILS # (AUTO) 0.4 10^3/uL (0.0-0.6); ABSOLUTE LYMPHOCYTES (AUTO) 0.9 10^3/uL (0.5-4.7); ABSOLUTE MONOCYTES (AUTO) 0.4 10^3/uL (0.1-1.4); ABSOLUTE NEUT (AUTO) 2.8 10^3/uL (1.7-8.2); BASOPHILS % (AUTO) 0.6 % (0-2); EOSINOPHILS % (AUTO) 8.1 % (0-6); HEMATOCRIT 28.2 % (36.0-47.0); HEMOGLOBIN 9.5 g/dL (12.0-15.5); LYMPHOCYTES % (AUTO) 20.1 % (13-45); MEAN CORPUSCULAR HEMOGLOBIN 29.7 pg (27.0-33.4); MEAN CORPUSCULAR HGB CONC 33.6 g/dL (32.0-36.0); MEAN CORPUSCULAR VOLUME 89 fl (80-97); MONOCYTES % (AUTO) 9.1 % (3-13); PLATELET COUNT 252 10^3/uL (150-450); RED BLOOD COUNT 3.19 10^6/uL (3.72-5.28); RED CELL DISTRIBUTION WIDTH 14.9 % (11.5-14.0); SEGMENTED NEUTROPHILS % (AUTO) 62.1 % (42-78); TOTAL CELLS COUNTED % (AUTO) 100 %; WHITE BLOOD COUNT 4.6 10^3/uL (4.0-10.5)
[2018-10-05] MEDS ORDERED: ACETAMINOPHEN 325 MG TABLET PO ONE (11:48)
[2018-10-05 13:20] LABS: ALANINE AMINOTRANSFERASE 13 U/L (9-52); ALBUMIN 4.1 g/dL (3.5-5.0); ALKALINE PHOSPHATASE 175 U/L (38-126); ANION GAP 19 (5-19); ASPARTATE AMINO TRANSFERASE 17 U/L (14-36); BILIRUBIN,DIRECT 0.7 mg/dL (0.0-0.4); BILIRUBIN,TOTAL 0.7 mg/dL (0.2-1.3); BLOOD UREA NITROGEN 59 mg/dL (7-20); CALCIUM 7.9 mg/dL (8.4-10.2); CARBON DIOXIDE 19 mmol/L (22-30); CHLORIDE 95 mmol/L (98-107); GLUCOSE 245 mg/dL (75-110); LIPASE 270.6 U/L (23-300); POTASSIUM 5.5 mmol/L (3.6-5.0); SODIUM 133.4 mmol/L (137-145); TOTAL PROTEIN 7.8 g/dL (6.3-8.2)
--- NOTE | 2018-10-05 14:04 | ER Document Report ---
ED General - General Chief Complaint: Abdominal Pain Stated Complaint: ABDOMINAL PAIN Time Seen by Provider: 10/05/18 09:52 Notes: Patient says that she awakened at 3 AM this morning having diarrhea with blood present. She is having some lower abdominal discomfort. She had 2 more bowel movements with blood present. She also vomited about 3 times but no blood present. Says she does notice rectal pain with her bowel movements but has not noticed any swelling in the area. No history of hemorrhoids. No fevers. PMH: Renal dialysis, Wednesday, Wednesday, and Wednesday. Is missing her treatment today. IDDM, HTN, CHF. PMH: Appendectomy and cholecystectomy. TRAVEL OUTSIDE OF THE [place] IN LAST 30 DAYS: No - Related Data Allergies/Adverse Reactions: aspirin [Aspirin] Allergy (Verified 10/05/18 08:42) Anaphylaxis ciprofloxacin [From Cipro] Allergy (Verified 10/05/18 08:42) Anaphylaxis clindamycin [Clindamycin] Allergy (Verified 10/05/18 08:42) hydrocodone [From Vicodin] Allergy (Verified 10/05/18 08:42) ibuprofen [From Motrin] Allergy (Verified 10/05/18 08:42) Anaphylaxis lidocaine [From Lidoderm] Allergy (Verified 10/05/18 08:42) Generalized rash tramadol HCl [From Ultram] Allergy (Verified 10/05/18 08:42) vancomycin [Vancomycin] Allergy (Verified 10/05/18 08:42) Shortness of Breath nitroglycerin [Nitroglycerin] Adverse Reaction (Intermediate, Verified 10/05/18 08:42) Joint pain Past Medical History - Social History Smoking Status: Never Smoker Frequency of alcohol use: None Drug Abuse: None Family History: Reviewed & Not Pertinent Patient has suicidal ideation: No Patient has homicidal ideation: No - Past Medical History Cardiac Medical History: Reports: Hx Congestive Heart Failure, Hx Coronary Artery Disease, Hx Hypertension, Hx Heart Murmur Pulmonary Medical History: Reports: Hx Asthma, Hx Pneumonia Neurological Medical History: Reports: Hx Migraine, Hx Seizures Endocrine Medical History: Reports: Hx Diabetes Mellitus Type 1, Hx Diabetes Mellitus Type 2 Renal/ Medical History: Reports: Hx End Stage Renal Disease - On hemodialysis MWF, Hx Hemodialysis, Hx Ovarian Cysts, Hx Peritoneal Dialysis Malignancy Medical History: GI Medical History: Reports: Hx Gastritis Musculoskeletal Medical History: Skin Medical History: Reports Hx Psoriasis Psychiatric Medical History: Reports: Hx Depression Traumatic Medical History: Infectious Medical History: Past Surgical History: Reports: Hx Appendectomy, Hx Cholecystectomy, Hx Vascular Surgery - Lt AV Fistula and graft; Rt AV fistula - Immunizations Immunizations up to date: Yes Hx Diphtheria, Pertussis, Tetanus Vaccination: Yes Hx Pneumococcal Vaccination: 08/22/11 Review of Systems - Review of Systems Notes: REVIEW OF SYSTEMS: CONSTITUTIONAL : Denies fever. EENT: Denies eye, ear, nose or mouth or throat pain or other symptoms. CARDIOVASCULAR: Denies chest pain. RESPIRATORY: Denies cough, chest congestion, or shortness of breath. GASTROINTESTINAL: See HPI. GENITOURINARY: Denies difficulty or painful urinating, urinary frequency, blood in urine. MUSCULOSKELETAL: Denies back or neck pain. Denies joint pain or swelling. SKIN: Denies rash or skin lesions. NEUROLOGICAL: Denies LOC or altered mental status. Denies headache. Denies sensory loss or motor deficits. ALL OTHER SYSTEMS REVIEWED AND NEGATIVE. Physical Exam - Vital signs Vitals: Temp Pulse Resp BP Pulse Ox 97.9 F 96 20 202/87 H 98 10/05/18 08:44 10/05/18 08:44 10/05/18 08:44 10/05/18 08:44 10/05/18 08:44 Interpretation: Hypertensive - Notes Notes: PHYSICAL EXAMINATION: GENERAL: Well-appearing, in no acute distress. Blood pressure up, but not especially unusual for this patient. HEAD: Atraumatic, normocephalic. EYES: Pupils equal round and reactive to light, extraocular movements intact. ENT: oropharynx clear without exudates. Moist mucous membranes. NECK: Normal range of motion, supple. LUNGS: Breath sounds clear and equal bilaterally. HEART: Regular rate and rhythm without murmurs. ABDOMEN: Soft, only mildly tender in the lower portion of the abdomen.. No guarding or rebound. No masses. Rectal exam gross blood on the examining glove. In the anterior anus/rectum , I think I am feeling a hemorrhoid or a couple of them just internal and not external. Patient reports significant pain when I touch those areas. BACK: No tenderness throughout entire back. EXTREMITIES: Normal range of motion without pain. NEUROLOGICAL: Normal speech, normal gait. Normal sensory, motor, and reflex exams. Awake, alert, and oriented x3. Cranial nerves normal. PSYCH: Normal mood, normal affect. SKIN: Warm, dry, no rashes. Course - Re-evaluation Re-evalutation: 10/05/18 14:[address] Kwon who will arrange for dialysis of this patient. Spoke with Dr. Hernandez, patient's admitting physician who will admit the patient. Spoke with Dr. Monk, surgeon refrigeration operator, who will consult on the patient. Patient remained stable throughout her entire stay in the department. Her blood pressure gradually trended downward. She had no more diarrhea stools and no more blood in her stools. Hemoglobin 9.5. - Vital Signs Vital signs: Temp Pulse Resp BP Pulse Ox 97.9 F 88 16 151/104 H 98 10/05/18 08:44 10/05/18 10:00 10/05/18 09:23 10/05/18 10:00 10/05/18 10:00 - Laboratory Result Diagrams: 10/05/18 11:00 10/05/18 12:45 Laboratory results interpreted by me: 10/05/18 10/05/18 11:00 12:45 RBC 3.19 L Hgb 9.5 L Hct 28.2 L RDW 14.9 H Eosinophils % 8.1 H Sodium 133.4 L Potassium 5.5 H Chloride 95 L Carbon Dioxide 19 L BUN 59 H Creatinine 10.72 H Est GFR ( Amer) 5 L Est GFR (Non-Af Amer) 4 L Glucose 245 H Calcium 7.9 L Direct Bilirubin 0.7 H Alkaline Phosphatase 175 H Discharge - Discharge Clinical Impression: ESRD (end stage renal disease) on dialysis, Rectal bleeding Condition: Stable Disposition: ADMITTED OBSERVATION Admitting Provider: Areli Unit Admitted: Medical Floor Referrals: HILARY HERNANDEZ MD [Primary Care Provider] - Follow up as needed
[2018-10-05] MEDS ORDERED: ALPRAZOLAM 0.5 MG TABLET PO PRN (16:51)
[2018-10-05] MEDS ORDERED: PROMETHAZINE HCL 25 MG TABLET PO PRN (16:51)
[2018-10-05] MEDS ORDERED: (PENDING PHARMACY ID) (Nifedipine [Nifedipine Er] 60 MG) PO SCH (17:00)
[2018-10-05 17:44] LABS: PHOSPHORUS 6.4 mg/dL (2.5-4.5)
[2018-10-05] MEDS ORDERED: (PENDING PHARMACY ID) (Gabapentin Enacarbil [Horizant] 300 MG) PO SCH (18:00)
[2018-10-05] MEDS ORDERED: (PENDING PHARMACY ID) (Oxycodone Hcl/Acetaminophen [Percocet 7.5-325 Mg Tablet] 1 TAB) PO SCH (18:00)
[2018-10-05] MEDS ORDERED: (PENDING PHARMACY ID) (Oxcarbazepine [Trileptal] 300 MG) PO SCH (18:00)
[2018-10-05] MEDS ORDERED: INSULIN DETEMIR 30 UNIT SQ SCH (18:00)
--- NOTE | 2018-10-05 19:06 | PDOC CONSULTATION ---
History of Present Illness Admission Date/PCP: 10/05/18 14:33 HILARY HERNANDEZ MD Patient complains of: Bloody diarrhea History of Present Illness: ERICH GOODMAN is a 33 year old female Presenting with 2-day history of multiple episodes of diarrhea that turned bloody. Her last bowel movement however was earlier this morning with none since then. She has had associated lower abdominal pain. Some nausea and vomiting. She denies any prior history of this sort of illness. She denies any prior history of gastrointestinal illness other than gallbladder disease for which she had a laparoscopic cholecystectomy in the remote past. Past Medical History Cardiac Medical History: Reports: Congestive Heart Failure, Coronary Artery Disease, Hypertension, Heart Murmur Pulmonary Medical History: Reports: Asthma, Pneumonia Neurological Medical History: Reports: Migraine, Seizures Endocrine Medical History: Reports: Diabetes Mellitus Type 1, Diabetes Mellitus Type 2 Renal/ Medical History: Reports: End Stage Renal Disease - On hemodialysis MWF Malignancy Medical History: GI Medical History: Musculoskeltal Medical History: Skin Medical History: Reports: Psoriasis Psychiatric Medical History: Reports: Depression Hematology: Reports: Anemia Infectious Medical History: Past Surgical History Past Surgical History: Reports: Appendectomy, Cholecystectomy, Vascular Surgery - Lt AV Fistula and graft; Rt AV fistula Social History Smoking Status: Never Smoker Frequency of Alcohol Use: None Hx Recreational Drug Use: No Drugs: None Hx Prescription Drug Abuse: No Family History Family History: Reviewed & Not Pertinent Parental Family History Reviewed: Yes - No history of colon cancer. Children Family History Reviewed: Yes Sibling(s) Family History Reviewed.: Yes - No history of colon cancer. Nor gastrointestinal problems Medication/Allergy Home Medications: Alprazolam [Xanax 0.5 mg Tablet] 0.5 mg PO BIDP PRN 10/05/18 Clonidine HCl [Catapres 0.1 mg Tablet] 0.1 mg PO Q8 10/05/18 Doxepin HCl [Silenor] 6 mg PO QHS 10/05/18 Furosemide [Lasix 80 mg Tablet] 80 mg PO TID 10/05/18 Gabapentin Enacarbil [Horizant] 300 mg PO QPM 10/05/18 Insulin Detemir [Levemir] 30 units SQ BID 10/05/18 Nifedipine [Nifedipine ER] 60 mg PO Q12 10/05/18 Oxcarbazepine [Trileptal] 300 mg PO BID 10/05/18 Oxycodone HCl/Acetaminophen [Percocet 7.5-325 mg Tablet] 1 tab PO Q6 10/05/18 Paroxetine HCl [Paxil] 40 mg PO QPM 10/05/18 Promethazine HCl [Phenergan 25 mg Tablet] 25 mg PO Q6HP PRN 10/05/18 Allergies/Adverse Reactions: aspirin [Aspirin] Allergy (Verified 10/05/18 08:42) Anaphylaxis ciprofloxacin [From Cipro] Allergy (Verified 10/05/18 08:42) Anaphylaxis clindamycin [Clindamycin] Allergy (Verified 10/05/18 08:42) hydrocodone [From Vicodin] Allergy (Verified 10/05/18 08:42) ibuprofen [From Motrin] Allergy (Verified 10/05/18 08:42) Anaphylaxis lidocaine [From Lidoderm] Allergy (Verified 10/05/18 08:42) Generalized rash tramadol HCl [From Ultram] Allergy (Verified 10/05/18 08:42) vancomycin [Vancomycin] Allergy (Verified 10/05/18 08:42) Shortness of Breath nitroglycerin [Nitroglycerin] Adverse Reaction (Intermediate, Verified 10/05/18 08:42) Joint pain Physical Exam Vital Signs: Temp Pulse Resp BP Pulse Ox 97.9 F 88 16 154/73 H 98 10/05/18 08:44 10/05/18 10:00 10/05/18 09:23 10/05/18 14:01 10/05/18 14:01 General appearance: PRESENT: no acute distress, cooperative Eye exam: PRESENT: conjunctiva pink Respiratory exam: PRESENT: clear to auscultation freddy Cardiovascular exam: PRESENT: RRR GI/Abdominal exam: PRESENT: other - Soft, nondistended, mild tenderness across the lower abdomen without peritoneal signs. Rectal exam: PRESENT: other - No perianal erythema nor hemorrhoidal prolapse. Patient does have a anal skin tag. Digital rectal exam will be deferred until tomorrow during her colonoscopy. Extremities exam: PRESENT: other - Right upper extremity fistula in place. Neurological exam: PRESENT: alert, awake Psychiatric exam: PRESENT: appropriate affect Skin exam: PRESENT: warm Assessment & Plan - Diagnosis (1) Bloody diarrhea Is this a current diagnosis for this admission?: Yes Plan: Currently appears to have stopped. Will do a bowel prep tonight and plan a colonoscopy tomorrow as well as an anoscopy. If she has no other etiology for her blood per rectum other than internal hemorrhoids, will plan hemorrhoidal banding. I have discussed with the patient the risks and benefits of the procedure including risk of intestinal injury, perianal sepsis, and recurrence of her hemorrhoids. Patient does have a not a diarrheal illness and as such will obtain stool studies.
--- NOTE | 2018-10-05 19:10 | PDOC H&P ---
History of Present Illness Admission Date/PCP: 10/05/18 14:33 HILARY HERNANDEZ MD History of Present Illness: ERICH GOODMAN is a 33 year old female,She came to the emergency room for evaluation of rectal bleed, She has end-stage renal disease on hemodialysis, because of the rectal bleed she did not go to outpatient dialysis today she came to the emergency room, consultation will be obtained from nephrology for hemodialysis of this patient and also, consultation be obtained from surgery for colonoscopy Past Medical History Cardiac Medical History: Reports: Hypertension, Heart Murmur Pulmonary Medical History: Reports: Asthma, Pneumonia Neurological Medical History: Reports: Migraine, Seizures Endocrine Medical History: Reports: Diabetes Mellitus Type 1 Renal/ Medical History: Reports: End Stage Renal Disease - On hemodialysis MWF Malignancy Medical History: GI Medical History: Musculoskeltal Medical History: Skin Medical History: Reports: Psoriasis Psychiatric Medical History: Reports: Depression Hematology: Reports: Anemia Infectious Medical History: Past Surgical History Past Surgical History: Reports: Appendectomy, Cholecystectomy, Vascular Surgery - Lt AV Fistula and graft; Rt AV fistula Social History Smoking Status: Never Smoker Frequency of Alcohol Use: None Hx Recreational Drug Use: No Drugs: None Hx Prescription Drug Abuse: No Family History Family History: Reviewed & Not Pertinent Parental Family History Reviewed: Yes Children Family History Reviewed: Yes Sibling(s) Family History Reviewed.: Yes Medication/Allergy Home Medications: Alprazolam [Xanax 0.5 mg Tablet] 0.5 mg PO BIDP PRN 10/05/18 Clonidine HCl [Catapres 0.1 mg Tablet] 0.1 mg PO Q8 10/05/18 Doxepin HCl [Silenor] 6 mg PO QHS 10/05/18 Furosemide [Lasix 80 mg Tablet] 80 mg PO TID 10/05/18 Gabapentin Enacarbil [Horizant] 300 mg PO QPM 10/05/18 Insulin Detemir [Levemir] 30 units SQ BID 10/05/18 Nifedipine [Nifedipine ER] 60 mg PO Q12 10/05/18 Oxcarbazepine [Trileptal] 300 mg PO BID 10/05/18 Oxycodone HCl/Acetaminophen [Percocet 7.5-325 mg Tablet] 1 tab PO Q6 10/05/18 Paroxetine HCl [Paxil] 40 mg PO QPM 10/05/18 Promethazine HCl [Phenergan 25 mg Tablet] 25 mg PO Q6HP PRN 10/05/18 Allergies/Adverse Reactions: aspirin [Aspirin] Allergy (Verified 10/05/18 08:42) Anaphylaxis ciprofloxacin [From Cipro] Allergy (Verified 10/05/18 08:42) Anaphylaxis clindamycin [Clindamycin] Allergy (Verified 10/05/18 08:42) hydrocodone [From Vicodin] Allergy (Verified 10/05/18 08:42) ibuprofen [From Motrin] Allergy (Verified 10/05/18 08:42) Anaphylaxis lidocaine [From Lidoderm] Allergy (Verified 10/05/18 08:42) Generalized rash tramadol HCl [From Ultram] Allergy (Verified 10/05/18 08:42) vancomycin [Vancomycin] Allergy (Verified 10/05/18 08:42) Shortness of Breath nitroglycerin [Nitroglycerin] Adverse Reaction (Intermediate, Verified 10/05/18 08:42) Joint pain Review of Systems Constitutional: ABSENT: chills, fever(s), headache(s), weight gain, weight loss Eyes: ABSENT: visual disturbances Ears: ABSENT: hearing changes Cardiovascular: ABSENT: chest pain, dyspnea on exertion, edema, orthropnea, palpitations Respiratory: ABSENT: cough, hemoptysis Gastrointestinal: PRESENT: hematochezia. ABSENT: abdominal pain, constipation, diarrhea, hematemesis, nausea, vomiting Genitourinary: ABSENT: dysuria, hematuria Musculoskeletal: ABSENT: joint swelling Integumentary: ABSENT: rash, wounds Neurological: ABSENT: abnormal gait, abnormal speech, confusion, dizziness, focal weakness, syncope Psychiatric: ABSENT: anxiety, depression, homidical ideation, suicidal ideation Endocrine: ABSENT: cold intolerance, heat intolerance, menstrual abnormalities, polydipsia, polyuria Hematologic/Lymphatic: ABSENT: easy bleeding, easy bruising, lymphadenopathy Physical Exam Vital Signs: Temp Pulse Resp BP Pulse Ox 97.9 F 88 16 154/73 H 98 10/05/18 08:44 10/05/18 10:00 10/05/18 09:23 10/05/18 14:01 10/05/18 14:01 General appearance: PRESENT: no acute distress, well-developed, well-nourished Head exam: PRESENT: atraumatic, normocephalic Eye exam: PRESENT: conjunctiva pink, EOMI, PERRLA Ear exam: PRESENT: normal external ear exam Mouth exam: PRESENT: moist, tongue midline Neck exam: PRESENT: full ROM Respiratory exam: PRESENT: clear to auscultation freddy Cardiovascular exam: PRESENT: RRR, +S1, +S2 Pulses: PRESENT: normal dorsalis pedis pul, +2 pedal pulses bilateral Vascular exam: PRESENT: normal capillary refill GI/Abdominal exam: PRESENT: normal bowel sounds, soft Rectal exam: PRESENT: deferred Neurological exam: PRESENT: alert, awake, oriented to person, oriented to place , oriented to time, oriented to situation, CN II-XII grossly intact Psychiatric exam: PRESENT: appropriate affect, normal mood Skin exam: PRESENT: dry, intact, warm Assessment & Plan - Diagnosis (1) Lower GI bleed Is this a current diagnosis for this admission?: Yes Plan: Patient presently not requiring blood transfusion we will obtain consultation from surgery (2) End stage renal disease Is this a current diagnosis for this admission?: Yes
[2018-10-05 20:02] LABS: INTERNATIONAL RATION (INR) 0.96; PROTHROMBIN TIME 13.3 SEC (11.4-15.4)
[2018-10-05 20:03] LABS: PARTIAL THROMBOPLASTIN TIME 38.5 SEC (23.5-35.8)
[2018-10-05] MEDS: OXYCODONE-ACETAMINOPHEN 5-325 MG TABLET PO SCH (20:03)
[2018-10-05 20:45] LABS: CREATINE KINASE MB 0.39 ng/mL (<4.55)
[2018-10-05 20:47] LABS: TROPONIN I < 0.012 ng/mL
[2018-10-05] MEDS: OXYCODONE HCL IR 5 MG TABLET PO SCH (21:00)
[2018-10-05] MEDS ORDERED: DEXTROSE 50%-WATER SYRINGE 25 GM/50 ML DOSE IV PRN (21:07)
[2018-10-05] MEDS ORDERED: DEXTROSE 40% GEL 15 GM TUBE X 2 PO PRN (21:07)
[2018-10-05] MEDS ORDERED: GLUCAGON,HUMAN RECOMB 1 MG INJ IM PRN (21:07)
[2018-10-05] MEDS ORDERED: DEXTROSE 40% GEL 15 GM TUBE PO PRN (21:07)
[2018-10-05] MEDS ORDERED: DEXTROSE 50%-WATER SYRINGE 12.5 GM/25 ML DOSE IV PRN (21:07)
[2018-10-05] MEDS ORDERED: PEG 3350/NA SULF,BICARB,CL/KCL 4000 ML PO ONE (22:00)
[2018-10-05] MEDS ORDERED: (PENDING PHARMACY ID) (Doxepin Hcl [Silenor] 6 MG) PO SCH (22:00)
[2018-10-05] MEDS: INSULIN LISPRO 100 UNIT/ML 3 ML VIAL SUBCUT PRN (22:20)
[2018-10-05] MEDS: INSULIN DETEMIR 100 UNIT/ML 3 ML PEN SUBCUT SCH (22:21)
[2018-10-05] MEDS: CLONIDINE HCL 0.1 MG TABLET PO SCH ×2 (22:23→22:25)
[2018-10-05] MEDS: FUROSEMIDE 80 MG TABLET PO SCH (22:24)
[2018-10-05] MEDS: PAROXETINE HCL 20 MG TABLET PO SCH (22:27)
[2018-10-05] MEDS: NIFEDIPINE 30 MG TAB.ER.24 PO SCH (22:28)
[2018-10-05] MEDS: OXCARBAZEPINE 150 MG TABLET PO SCH (22:28)
[2018-10-06] MEDS: OXYCODONE-ACETAMINOPHEN 5-325 MG TABLET PO SCH ×4 (00:59→18:02)
[2018-10-06] MEDS: OXYCODONE HCL IR 5 MG TABLET PO SCH ×4 (00:59→18:01)
[2018-10-06 02:20] LABS: CREATINE KINASE MB 0.22 ng/mL (<4.55)
[2018-10-06 02:25] LABS: TROPONIN I < 0.012 ng/mL
[2018-10-06] MEDS: OXCARBAZEPINE 150 MG TABLET PO SCH ×2 (06:08→18:05)
[2018-10-06] MEDS: CLONIDINE HCL 0.1 MG TABLET PO SCH ×3 (06:09→22:20)
[2018-10-06] MEDS: NIFEDIPINE 30 MG TAB.ER.24 PO SCH ×2 (06:10→18:03)
[2018-10-06 08:18] LABS: HEMATOCRIT 28.3 % (36.0-47.0); HEMOGLOBIN 9.5 g/dL (12.0-15.5); MEAN CORPUSCULAR HEMOGLOBIN 30.1 pg (27.0-33.4); MEAN CORPUSCULAR HGB CONC 33.6 g/dL (32.0-36.0); MEAN CORPUSCULAR VOLUME 89 fl (80-97); PLATELET COUNT 231 10^3/uL (150-450); RED BLOOD COUNT 3.17 10^6/uL (3.72-5.28); RED CELL DISTRIBUTION WIDTH 15.2 % (11.5-14.0); WHITE BLOOD COUNT 3.9 10^3/uL (4.0-10.5)
[2018-10-06 08:24] LABS: ALANINE AMINOTRANSFERASE 13 U/L (9-52); ALBUMIN 4.1 g/dL (3.5-5.0); ALKALINE PHOSPHATASE 182 U/L (38-126); ASPARTATE AMINO TRANSFERASE 19 U/L (14-36); BILIRUBIN,DIRECT 0.4 mg/dL (0.0-0.4); BILIRUBIN,TOTAL 0.4 mg/dL (0.2-1.3); CALCIUM 8.3 mg/dL (8.4-10.2); CHLORIDE 91 mmol/L (98-107); CREATINE KINASE 64 U/L (30-135); GLUCOSE 193 mg/dL (75-110); POTASSIUM 4.7 mmol/L (3.6-5.0); TOTAL PROTEIN 7.7 g/dL (6.3-8.2)
[2018-10-06 08:29] LABS: CARBON DIOXIDE 28 mmol/L (22-30); CREATINE KINASE MB 0.26 ng/mL (<4.55); SODIUM 138.5 mmol/L (137-145)
[2018-10-06 08:34] LABS: TROPONIN I < 0.012 ng/mL
[2018-10-06 08:41] LABS: ANION GAP 20 (5-19); BLOOD UREA NITROGEN 34 mg/dL (7-20)
[2018-10-06 08:53] LABS: ABSOLUTE LYMPHOCYTES# (MANUAL) 1.4 10^3/uL (0.5-4.7); ABSOLUTE MONOCYTES # (MANUAL) 0.2 10^3/uL (0.1-1.4); BASOPHILS % (MANUAL) 1 % (0-2); EOSINOPHILS % (MANUAL) 7 % (0-6); LYMPHOCYTES % (MANUAL) 35 % (13-45); METAMYELOCYTES % (MANUAL) 1 % (0); MONOCYTES % (MANUAL) 5 % (3-13); SEGMENTED NEUTROPHILS % (MAN) 49 % (42-78); TOTAL CELLS COUNTED 100
[2018-10-06 08:55] LABS: ANISOCYTOSIS SLIGHT; HYPOCHROMASIA SLIGHT; PLATELET COMMENT ADEQUATE; POLYCHROMASIA SLIGHT; ROULEAUX SLIGHT
--- NOTE | 2018-10-06 10:28 | PDOC CONSULTATION ---
Consultation Consult Date: 10/05/18 Consult reason:: ESRD for Hemodialysis. History of Present Illness Admission Date/PCP: 10/05/18 14:33 HILARY SINGLETON MD History of Present Illness: ERICH GOODMAN is a 33 year old female with h/o ESRD in the background of Diabetes, Hypertension was admitted with painful rectal bleed that started today.She c/o of painless diarrhea x 2 days which was then followed by the rectal bleeding today. She also c/o some lower abdominal pain. She has had some nausea with 2-3 episodes of vomiting without any blood. She denies any dizziness.No c/o upper abdominal pains, Hematemesis. Seen in the ER and I talked with DR Jordan who after initial evaluation thinks she has a hemorrhoidal etiology. She has been consulted to be seen by the surgeons.Currently not actively bleeding. She is currently being seen while undergoing dialysis on no heparin.Labs and medications were reviewed.Orders again reviewed with the treating prosthetist. Past Medical History Cardiac Medical History: Reports: Coronary Artery Disease, Heart Murmur, Hypertension-primary Pulmonary Medical History: Reports: Asthma, Pneumonia Neurological Medical History: Reports: Migraine, Seizures Endocrine Medical History: Reports: Diabetes Mellitus Type 2 Complications of Diabetes: Reports: Autonomic Neuropathy, Retinopathy Renal/ Medical History: Reports: End Stage Renal Disease - On hemodialysis MWF , Hyperkalemia, Secondary Hyperparathyroidism Malignancy Medical History: GI Medical History: Musculoskeltal Medical History: Denies: Rheumatoid Arthritis, Systemic Lupus Erythematosus Skin Medical History: Reports: Psoriasis Psychiatric Medical History: Reports: Depression Infectious Medical History: Hematology Medical History: Reports Anemia of Chronic Kidney Disease Past Surgical History Past Surgical History: Reports: Appendectomy, Cholecystectomy, Dialysis Access Surgery AVF, Vascular Surgery - Lt AV Fistula and graft; Rt AV fistula Social History Smoking Status: Never Smoker Frequency of Alcohol Use: None Hx Recreational Drug Use: No Drugs: None Hx Prescription Drug Abuse: No Family History Parental Family History Reviewed: Yes - negative for ESRD Children Family History Reviewed: No Sibling(s) Family History Reviewed.: No Medication/Allergy Home Medications: Alprazolam [Xanax 0.5 mg Tablet] 0.5 mg PO BIDP PRN 10/05/18 Clonidine HCl [Catapres 0.1 mg Tablet] 0.1 mg PO Q8 10/05/18 Doxepin HCl [Silenor] 6 mg PO QHS 10/05/18 Furosemide [Lasix 80 mg Tablet] 80 mg PO TID 10/05/18 Gabapentin Enacarbil [Horizant] 300 mg PO QPM 10/05/18 Insulin Detemir [Levemir] 30 units SQ BID 10/05/18 Nifedipine [Nifedipine ER] 60 mg PO Q12 10/05/18 Oxcarbazepine [Trileptal] 300 mg PO BID 10/05/18 Oxycodone HCl/Acetaminophen [Percocet 7.5-325 mg Tablet] 1 tab PO Q6 10/05/18 Paroxetine HCl [Paxil] 40 mg PO QPM 10/05/18 Promethazine HCl [Phenergan 25 mg Tablet] 25 mg PO Q6HP PRN 10/05/18 Allergies/Adverse Reactions: aspirin [Aspirin] Allergy (Verified 10/05/18 08:42) Anaphylaxis ciprofloxacin [From Cipro] Allergy (Verified 10/05/18 08:42) Anaphylaxis clindamycin [Clindamycin] Allergy (Verified 10/05/18 08:42) hydrocodone [From Vicodin] Allergy (Verified 10/05/18 08:42) ibuprofen [From Motrin] Allergy (Verified 10/05/18 08:42) Anaphylaxis lidocaine [From Lidoderm] Allergy (Verified 10/05/18 08:42) Generalized rash tramadol HCl [From Ultram] Allergy (Verified 10/05/18 08:42) vancomycin [Vancomycin] Allergy (Verified 10/05/18 08:42) Shortness of Breath nitroglycerin [Nitroglycerin] Adverse Reaction (Intermediate, Verified 10/05/18 08:42) Joint pain Review of Systems Constitutional: PRESENT: weakness. ABSENT: anorexia, chills, fever(s), headache (s), night sweats, weight loss Nose, Mouth, and Throat: ABSENT: mouth pain, sore throat Cardiovascular: ABSENT: chest pain, dyspnea on exertion, edema, orthropnea Respiratory: ABSENT: cough, dyspnea, hemoptysis Gastrointestinal: PRESENT: abdominal pain, diarrhea, hematochezia, nausea, vomiting. ABSENT: coffee ground emesis, dysphagia, heartburn, hematemesis Genitourinary: ABSENT: hematuria Integumentary: ABSENT: lesions, pruritus, rash Neurological: PRESENT: paresthesias. ABSENT: abnormal movements, abnormal speech Hematologic/Lymphatic: ABSENT: easy bleeding, easy bruising, lymphadenopathy Physical Exam Vital Signs: Temp Pulse Resp BP Pulse Ox 97.9 F 88 16 154/73 H 98 10/05/18 08:44 10/05/18 10:00 10/05/18 09:23 10/05/18 14:01 10/05/18 14:01 General appearance: PRESENT: no acute distress, mild distress Eye exam: PRESENT: EOMI, PERRLA. ABSENT: scleral icterus Ear exam: PRESENT: normal external ear exam Mouth exam: PRESENT: moist, neck supple Neck exam: ABSENT: lymphadenopathy, meningismus, tenderness, thyromegaly, tracheal deviation Respiratory exam: PRESENT: clear to auscultation freddy. ABSENT: crackles GI/Abdominal exam: PRESENT: normal bowel sounds, soft, tenderness - mildly tender in the hypogastrium.. ABSENT: distended, firm, guarding, organomegaly Extremities exam: PRESENT: pedal edema Neurological exam: PRESENT: alert, awake, oriented to person, oriented to place Skin exam: ABSENT: erythema, mottled, rash Assessment & Plan - Diagnosis (1) Acute anemia Plan: Monitor. Currently stable. No signs of hemodynamic instability. (2) Rectal bleeding Plan: As per Dr. Singleton and the surgeons. (3) ESRD (end stage renal disease) on dialysis Plan: Patient seen on hemodialysis. She is undergoing dialysis without any issues. It is being supervised to ensure safe and smooth procedure. Vital signs are stable. We will plan to remove it in 1 and 2 L as tolerated. Hemodynamically stable. Orders reviewed with the treating nurse. (4) Chronic diastolic (congestive) heart failure Plan: Currently stable. (5) Hyperkalemia Plan: Monitor. See response to dialysis. (6) Insulin dependent diabetes mellitus Plan: Advised tight blood sugar control.
--- NOTE | 2018-10-06 10:30 | PDOC PROGRESS REPORT ---
Subjective Progress Note for:: 10/06/18 Reason For Visit: Patient seen this morning. She is complaining of mild lower abdominal pains. She has had no further hematochezia. She says she has been prepped for having a colonoscopy sometime today. No complaints of any chest pain or shortness of breath. Labs and medications were reviewed with the patient. Physical Exam Vital Signs: Temp Pulse Resp BP Pulse Ox 97.6 F 94 18 141/79 H 96 10/06/18 08:50 10/06/18 08:50 10/06/18 08:50 10/06/18 08:50 10/06/18 08:50 Intake & Output 10/05/18 10/06/18 10/07/18 06:59 06:59 06:59 Intake Total 1794 Output Total 4800 Balance -3006 Weight 117.2 kg General appearance: PRESENT: no acute distress Respiratory exam: PRESENT: clear to auscultation freddy. ABSENT: crackles GI/Abdominal exam: PRESENT: normal bowel sounds, soft, tenderness - mildly tender in the hypogastrium.. ABSENT: distended, firm, guarding, organomegaly Extremities exam: ABSENT: pedal edema Neurological exam: PRESENT: alert, awake, oriented to person, oriented to place Skin exam: ABSENT: erythema, rash Results Laboratory Results: 10/06/18 07:40 10/06/18 07:40 10/06/18 10/06/18 07:40 07:40 WBC 3.9 L RBC 3.17 L Hgb 9.5 L Hct 28.3 L MCV 89 MCH 30.1 MCHC 33.6 RDW 15.2 H Plt Count 231 Seg Neutrophils % Not Reportable Lymphocytes % Not Reportable Monocytes % Not Reportable Eosinophils % Not Reportable Basophils % Not Reportable Absolute Neutrophils Not Reportable Absolute Lymphocytes Not Reportable Absolute Monocytes Not Reportable Absolute Eosinophils Not Reportable Absolute Basophils Not Reportable Sodium 138.5 Potassium 4.7 Chloride 91 L Carbon Dioxide 28 Anion Gap 20 H BUN 34 H D Creatinine 7.92 H Est GFR ( Amer) 7 L Est GFR (Non-Af Amer) 6 L Glucose 193 H Calcium 8.3 L Total Bilirubin 0.4 AST 19 ALT 13 Alkaline Phosphatase 182 H Total Protein 7.7 Albumin 4.1 10/05/18 10/05/18 10/06/18 19:40 19:40 01:41 Creatine Kinase 80 64 CK-MB (CK-2) 0.39 Troponin I < 0.012 10/06/18 10/06/18 10/06/18 01:41 07:40 07:40 Creatine Kinase 64 CK-MB (CK-2) 0.22 0.26 Troponin I < 0.012 < 0.012 Assessment & Plan - Diagnosis (1) Acute anemia Plan: Stable hemoglobin. Monitor. (2) Rectal bleeding Plan: No further bleeding since yesterday. She is being prepped for having a colonoscopy by the surgeons today. (3) ESRD (end stage renal disease) on dialysis Plan: Had an uneventful dialysis yesterday.. Plan for next dialysis tomorrow. (4) Chronic diastolic (congestive) heart failure Plan: Stable. (5) Hyperkalemia Plan: Resolved post dialysis yesterday. (6) Insulin dependent diabetes mellitus Plan: Advised tight blood sugar control.
--- NOTE | 2018-10-06 10:47 | PDOC PROGRESS REPORT ---
Subjective Progress Note for:: 10/06/18 Subjective:: Still having lower abdominal pain. Tolerated GoLYTELY prep well yesterday. Scant amount of bleeding with the prep. Reason For Visit: LOWER GI BLEED,ESRD ON HEMODIALYSIS, TYPE 1 Physical Exam Vital Signs: Temp Pulse Resp BP Pulse Ox 97.6 F 94 18 141/79 H 96 10/06/18 08:50 10/06/18 08:50 10/06/18 08:50 10/06/18 08:50 10/06/18 08:50 Intake & Output 10/05/18 10/06/18 10/07/18 06:59 06:59 06:59 Intake Total 1794 Output Total 4800 Balance -3006 Weight 117.2 kg General appearance: PRESENT: no acute distress, cooperative GI/Abdominal exam: PRESENT: other - Soft, mildly distended, mild lower abdominal tenderness without peritoneal signs. Neurological exam: PRESENT: alert, awake Psychiatric exam: PRESENT: appropriate affect Results Laboratory Results: 10/06/18 07:40 10/06/18 07:40 10/06/18 10/06/18 07:40 07:40 WBC 3.9 L RBC 3.17 L Hgb 9.5 L Hct 28.3 L MCV 89 MCH 30.1 MCHC 33.6 RDW 15.2 H Plt Count 231 Seg Neutrophils % Not Reportable Lymphocytes % Not Reportable Monocytes % Not Reportable Eosinophils % Not Reportable Basophils % Not Reportable Absolute Neutrophils Not Reportable Absolute Lymphocytes Not Reportable Absolute Monocytes Not Reportable Absolute Eosinophils Not Reportable Absolute Basophils Not Reportable Sodium 138.5 Potassium 4.7 Chloride 91 L Carbon Dioxide 28 Anion Gap 20 H BUN 34 H D Creatinine 7.92 H Est GFR ( Amer) 7 L Est GFR (Non-Af Amer) 6 L Glucose 193 H Calcium 8.3 L Total Bilirubin 0.4 AST 19 ALT 13 Alkaline Phosphatase 182 H Total Protein 7.7 Albumin 4.1 10/05/18 10/05/18 10/06/18 19:40 19:40 01:41 Creatine Kinase 80 64 CK-MB (CK-2) 0.39 Troponin I < 0.012 10/06/18 10/06/18 10/06/18 01:41 07:40 07:40 Creatine Kinase 64 CK-MB (CK-2) 0.22 0.26 Troponin I < 0.012 < 0.012 Assessment & Plan - Diagnosis (1) Bloody diarrhea Is this a current diagnosis for this admission?: Yes (2) Abdominal pain Qualifiers: Abdominal location: lower abdomen, unspecified Qualified Code(s): R10.30 - Lower abdominal pain, unspecified Is this a current diagnosis for this admission?: Yes Plan: Patient's blood per rectum appears to have markedly improved despite GoLYTELY prep yesterday. However her lower abdominal pain has persisted. Will obtain a abdominal pelvic CT scan. If this study is unremarkable will proceed on with her colonoscopy and anoscopy and possible hemorrhoidal banding.
[2018-10-06] MEDS: INSULIN DETEMIR 100 UNIT/ML 3 ML PEN SUBCUT SCH ×2 (11:25→22:46)
--- NOTE | 2018-10-06 11:40 | RADIOLOGY REPORT (SQ) ---
EXAM DESCRIPTION: CT ABD/PELVIS NO ORAL OR IV COMPLETED DATE/TIME: 10/06/2018 11:07 am REASON FOR STUDY: abdominal pain COMPARISON: 12/06/2015 TECHNIQUE: CT scan of the abdomen and pelvis performed without intravenous or oral contrast. Images reviewed with lung, soft tissue, and bone windows. Reconstructed coronal and sagittal MPR images revi ewed. All images stored on PACS. All CT scanners at this facility use dose modulation, iterative reconstruction, and/or weight based d osing when appropriate to reduce radiation dose to as low as reasonably achievable (ALARA). [facility]: Dose Right [facility]: CareDose [facility]: Dose Right [facility]: Teradose 4D [facility]: [employer] RADIATION DOSE: CT Rad equipment meets quality standard of care and radiation dose reduction techniq ues were employed. CTDIvol: 20.0 mGy. DLP: 1128 mGy-cm.mGy. LIMITATIONS: Examination is limited by lack of contrast FINDINGS: LOWER CHEST: No significant findings. No nodules or infiltrates. NON-CONTRASTED LIVER, SPLEEN, ADRENALS: Evaluation limited by lack of IV contrast. No identified sign ificant masses. PANCREAS: No masses. No peripancreatic inflammatory changes. GALLBLADDER: Status post cholecystectomy RIGHT KIDNEY AND URETER: Atrophic appearing kidney. No suspicious masses. Assessment limited by lac k of IV contrast. No significant calcifications. No hydronephrosis or hydroureter. LEFT KIDNEY AND URETER: Atrophic appearing kidney. No suspicious masses. Assessment limited by lack of IV contrast. No significant calcifications. No hydronephrosis or hydroureter. AORTA AND RETROPERITONEUM: No aneurysm. No retroperitoneal masses or adenopathy. Atherosclerosis, ad vanced for patient age. BOWEL AND PERITONEAL CAVITY: No obvious masses or inflammatory changes. No free fluid. The colon and small bowel are fluid-filled to the rectum. APPENDIX: Not clearly identified. PELVIS, BLADDER, AND ABDOMINAL WALL:No abnormal masses. No free fluid. Bladder normal. BONES: No significant findings. OTHER: No other significant finding. IMPRESSION: There is a fluid-filled colon, which can be seen in diarrheal illness. There are no oth er noncontrast CT findings to explain acute abdominal pain. COMMENT: Quality ID # [id number]: Final reports with documentation of one or more dose reduction techniques (e.g., Automated exposure control, adjustment of the mA and/or kV according to patient size, use of iterative reconstruction technique) TECHNICAL DOCUMENTATION: JOB ID: [id number] [employer]- All Rights Reserved Reading location - IP/workstation name: [email or web address]
[2018-10-06] MEDS: FUROSEMIDE 80 MG TABLET PO SCH ×3 (11:54→18:01)
[2018-10-06] MEDS ORDERED: FLUMAZENIL INJ 0.5 MG/5 ML VIAL ONE (12:52)
[2018-10-06] MEDS ORDERED: NALOXONE HCL INJ/PF 0.4 MG/1 ML SDV ONE (12:52)
[2018-10-06] MEDS ORDERED: ONDANSETRON HCL INJ/PF 4 MG/2 ML SDV ONE (12:52)
[2018-10-06] MEDS ORDERED: EPINEPHRINE INJ 1 MG/10 ML DISP.SYRIN ONE (12:53)
[2018-10-06] MEDS ORDERED: GLUCAGON,HUMAN RECOMB 1 MG INJ ONE (12:53)
--- NOTE | 2018-10-06 13:06 | PDOC PROGRESS REPORT ---
Subjective Reason For Visit: LOWER GI BLEED,ESRD ON HEMODIALYSIS, TYPE 1 Physical Exam Vital Signs: Temp Pulse Resp BP Pulse Ox 97.6 F 94 18 141/79 H 96 10/06/18 08:50 10/06/18 08:50 10/06/18 08:50 10/06/18 08:50 10/06/18 08:50 Intake & Output 10/05/18 10/06/18 10/07/18 06:59 06:59 06:59 Intake Total 1794 Output Total 4800 Balance -3006 Weight 117.2 kg Results Laboratory Results: 10/06/18 07:40 10/06/18 07:40 10/06/18 10/06/18 07:40 07:40 WBC 3.9 L RBC 3.17 L Hgb 9.5 L Hct 28.3 L MCV 89 MCH 30.1 MCHC 33.6 RDW 15.2 H Plt Count 231 Seg Neutrophils % Not Reportable Lymphocytes % Not Reportable Monocytes % Not Reportable Eosinophils % Not Reportable Basophils % Not Reportable Absolute Neutrophils Not Reportable Absolute Lymphocytes Not Reportable Absolute Monocytes Not Reportable Absolute Eosinophils Not Reportable Absolute Basophils Not Reportable Sodium 138.5 Potassium 4.7 Chloride 91 L Carbon Dioxide 28 Anion Gap 20 H BUN 34 H D Creatinine 7.92 H Est GFR ( Amer) 7 L Est GFR (Non-Af Amer) 6 L Glucose 193 H Calcium 8.3 L Total Bilirubin 0.4 AST 19 ALT 13 Alkaline Phosphatase 182 H Total Protein 7.7 Albumin 4.1 10/05/18 10/05/18 10/06/18 19:40 19:40 01:41 Creatine Kinase 80 64 CK-MB (CK-2) 0.39 Troponin I < 0.012 10/06/18 10/06/18 10/06/18 01:41 07:40 07:40 Creatine Kinase 64 CK-MB (CK-2) 0.22 0.26 Troponin I < 0.012 < 0.012 Impressions: Abdomen/Pelvis CT 10/06/18 00:00 IMPRESSION: There is a fluid-filled colon, which can be seen in diarrheal illness. There are no other noncontrast CT findings to explain acute abdominal pain. Assessment & Plan - Diagnosis (1) Bloody diarrhea Is this a current diagnosis for this admission?: Yes (2) Abdominal pain Qualifiers: Abdominal location: lower abdomen, unspecified Qualified Code(s): R10.30 - Lower abdominal pain, unspecified Is this a current diagnosis for this admission?: Yes Plan: CT scan only demonstrates fluid-filled bowel with no evidence of obstruction and no inflammatory changes. Will proceed with colonoscopy to evaluate her history of bloody diarrhea.
[2018-10-06] MEDS: MIDAZOLAM 2 MG/2 ML INJ ONE ×3 (13:32→13:45)
[2018-10-06] MEDS: FENTANYL CITRATE INJ/PF 100 MCG/2 ML AMPUL ONE ×2 (13:34→13:43)
--- NOTE | 2018-10-06 14:28 | Operative Report ---
Operative Report DATE OF SURGERY: 10/06/18 PREOPERATIVE DIAGNOSIS: Blood per rectum, abdominal pain. POSTOPERATIVE DIAGNOSIS: Blood per rectum, abdominal pain. Anal canal fibroepithelial polyp OPERATION: Colonoscopy. Anoscopy. SURGEON: PASQUALE CALIX ANESTHESIA: Moderate Sedation TISSUE REMOVED OR ALTERED: None COMPLICATIONS: None ESTIMATED BLOOD LOSS: None INTRAOPERATIVE FINDINGS: Normal-appearing colon with no polyps and no masses and no mucosal irritation and no blood. Anal canal demonstrates a 2 x 1 cm fibroepithelial polyp anteriorly with marked tenderness and discoloration at its tip. No perianal erythema nor fluctuance. Anal spasm noted. PROCEDURE: Informed consent was obtained. Patient was brought to the endoscopy suite. IV sedation with Versed and fentanyl was administered. Digital rectal exam revealed a polypoid mass at the anterior anal canal consistent with a fibroepithelial polyp. No other palpable perianal masses were noted. Patient had pain with digital rectal exam and some anal spasm as well. Endoscope was passed via the patient's anus it was fed to the cecum. The bowel prep was good visualization was good. There was clear yellow fluid throughout the colon but no mucosal inflammatory changes. No masses and no polyps and no diverticuli were seen. No blood was seen. Anoscopy was performed and it demonstrated no significant internal hemorrhoids and certainly no stigmata of recent bleeding. Patient had pain during the endoscopy. I did not appreciate any evidence of fissure nor fistula. However anteriorly there was a approximately a 2 x 1 cm polypoid mass consistent with a fibroepithelial polyp with some discoloration at its tip. Patient had quite a bit of tenderness at this region. I did not think that the endoscopy suite was the appropriate setting for resection of this lesion. Patient tolerated procedure well with no apparent complications and was taken to the recovery area in stable condition. No evidence of colitis seen. No source of blood per rectum seen other than the fibroepithelial polyp. Patient appears to have significant symptoms associated with this polyp with pain and tenderness and it is possible that there was some bleeding from its tip in the past. When she awakens from anesthesia I will discuss with her the option of excision of this lesion. I think the most likely explanation of her clinical course is that she developed a self-limiting diarrheal illness that irritated this region along with small amount of bleeding that appear to her more profuse than it actually was.
[2018-10-06] MEDS ORDERED: MORPHINE SULFATE 10 MG/ML INJ IV PRN (14:29)
[2018-10-06] MEDS: PAROXETINE HCL 20 MG TABLET PO SCH (18:01)
--- NOTE | 2018-10-06 20:07 | PDOC PROGRESS REPORT ---
Subjective Progress Note for:: 10/06/18 Subjective:: She had colonoscopy done today, she was found to have anal canal fibroepithelial polyp no active bleeding was found Reason For Visit: LOWER GI BLEED,ESRD ON HEMODIALYSIS, TYPE 1 Physical Exam Vital Signs: Temp Pulse Resp BP Pulse Ox 97.8 F 91 15 136/70 H 98 10/06/18 18:30 10/06/18 18:30 10/06/18 18:30 10/06/18 18:30 10/06/18 18:30 Intake & Output 10/05/18 10/06/18 10/07/18 06:59 06:59 06:59 Intake Total 1794 518 Output Total 4800 350 Balance -3006 168 Weight 117.2 kg General appearance: PRESENT: no acute distress, well-developed, well-nourished Head exam: PRESENT: atraumatic, normocephalic Eye exam: PRESENT: conjunctiva pink, EOMI, PERRLA Ear exam: PRESENT: normal external ear exam Mouth exam: PRESENT: moist, tongue midline Neck exam: PRESENT: full ROM Respiratory exam: PRESENT: clear to auscultation freddy Cardiovascular exam: PRESENT: RRR, +S1, +S2 Pulses: PRESENT: normal dorsalis pedis pul, +2 pedal pulses bilateral Vascular exam: PRESENT: normal capillary refill GI/Abdominal exam: PRESENT: normal bowel sounds, soft Rectal exam: PRESENT: deferred Neurological exam: PRESENT: alert, awake, oriented to person, oriented to place , oriented to time, oriented to situation, CN II-XII grossly intact Psychiatric exam: PRESENT: appropriate affect, normal mood Skin exam: PRESENT: dry, intact, warm. ABSENT: cyanosis, rash Results Laboratory Results: 10/06/18 07:40 10/06/18 07:40 10/06/18 10/06/18 07:40 07:40 WBC 3.9 L RBC 3.17 L Hgb 9.5 L Hct 28.3 L MCV 89 MCH 30.1 MCHC 33.6 RDW 15.2 H Plt Count 231 Seg Neutrophils % Not Reportable Lymphocytes % Not Reportable Monocytes % Not Reportable Eosinophils % Not Reportable Basophils % Not Reportable Absolute Neutrophils Not Reportable Absolute Lymphocytes Not Reportable Absolute Monocytes Not Reportable Absolute Eosinophils Not Reportable Absolute Basophils Not Reportable Sodium 138.5 Potassium 4.7 Chloride 91 L Carbon Dioxide 28 Anion Gap 20 H BUN 34 H D Creatinine 7.92 H Est GFR ( Amer) 7 L Est GFR (Non-Af Amer) 6 L Glucose 193 H Calcium 8.3 L Total Bilirubin 0.4 AST 19 ALT 13 Alkaline Phosphatase 182 H Total Protein 7.7 Albumin 4.1 10/05/18 10/05/18 10/06/18 19:40 19:40 01:41 Creatine Kinase 80 64 CK-MB (CK-2) 0.39 Troponin I < 0.012 10/06/18 10/06/18 10/06/18 01:41 07:40 07:40 Creatine Kinase 64 CK-MB (CK-2) 0.22 0.26 Troponin I < 0.012 < 0.012 Impressions: Abdomen/Pelvis CT 10/06/18 00:00 IMPRESSION: There is a fluid-filled colon, which can be seen in diarrheal illness. There are no other noncontrast CT findings to explain acute abdominal pain. Assessment & Plan - Diagnosis (1) Lower GI bleed Is this a current diagnosis for this admission?: Yes (2) End stage renal disease Is this a current diagnosis for this admission?: Yes
--- NOTE | 2018-10-06 20:22 | PDOC PROGRESS REPORT ---
Subjective Progress Note for:: 10/06/18 Subjective:: Abdominal pain is markedly improved and she has had no further diarrhea. Still has perianal pain. Reason For Visit: LOWER GI BLEED,ESRD ON HEMODIALYSIS, TYPE 1 Physical Exam Vital Signs: Temp Pulse Resp BP Pulse Ox 97.8 F 91 15 136/70 H 98 10/06/18 18:30 10/06/18 18:30 10/06/18 18:30 10/06/18 18:30 10/06/18 18:30 Intake & Output 10/05/18 10/06/18 10/07/18 06:59 06:59 06:59 Intake Total 1794 518 Output Total 4800 350 Balance -3006 168 Weight 117.2 kg Results Laboratory Results: 10/06/18 07:40 10/06/18 07:40 10/06/18 10/06/18 07:40 07:40 WBC 3.9 L RBC 3.17 L Hgb 9.5 L Hct 28.3 L MCV 89 MCH 30.1 MCHC 33.6 RDW 15.2 H Plt Count 231 Seg Neutrophils % Not Reportable Lymphocytes % Not Reportable Monocytes % Not Reportable Eosinophils % Not Reportable Basophils % Not Reportable Absolute Neutrophils Not Reportable Absolute Lymphocytes Not Reportable Absolute Monocytes Not Reportable Absolute Eosinophils Not Reportable Absolute Basophils Not Reportable Sodium 138.5 Potassium 4.7 Chloride 91 L Carbon Dioxide 28 Anion Gap 20 H BUN 34 H D Creatinine 7.92 H Est GFR ( Amer) 7 L Est GFR (Non-Af Amer) 6 L Glucose 193 H Calcium 8.3 L Total Bilirubin 0.4 AST 19 ALT 13 Alkaline Phosphatase 182 H Total Protein 7.7 Albumin 4.1 10/05/18 10/05/18 10/06/18 19:40 19:40 01:41 Creatine Kinase 80 64 CK-MB (CK-2) 0.39 Troponin I < 0.012 10/06/18 10/06/18 10/06/18 01:41 07:40 07:40 Creatine Kinase 64 CK-MB (CK-2) 0.22 0.26 Troponin I < 0.012 < 0.012 Impressions: Abdomen/Pelvis CT 10/06/18 00:00 IMPRESSION: There is a fluid-filled colon, which can be seen in diarrheal illness. There are no other noncontrast CT findings to explain acute abdominal pain. Assessment & Plan - Diagnosis (1) Bloody diarrhea Is this a current diagnosis for this admission?: Yes (2) Abdominal pain Qualifiers: Abdominal location: lower abdomen, unspecified Qualified Code(s): R10.30 - Lower abdominal pain, unspecified Is this a current diagnosis for this admission?: Yes (3) Fibroepithelial polyp Is this a current diagnosis for this admission?: Yes Plan: Of the anal canal. Highly symptomatic. I have discussed with the patient about the risk and benefits of excision of this lesion. Her diarrheal illness appears to have resolved. She has no evidence of colitis. I do not think she has significant internal hemorrhoids. Will discuss with the oncoming surgeon about having this excision done tomorrow.
[2018-10-06] MEDS ORDERED: DEXTROSE 40% GEL 15 GM TUBE PO PRN ×2 (20:23)
[2018-10-06] MEDS ORDERED: GLUCAGON,HUMAN RECOMB 1 MG INJ SUBCUT PRN (20:23)
[2018-10-06] MEDS ORDERED: DEXTROSE 50%-WATER 25 GM/50 ML DISP.SYRIN IV PRN ×2 (20:23)
[2018-10-07] MEDS: INSULIN LISPRO 100 UNIT/ML 3 ML VIAL SUBCUT PRN ×2 (00:19→12:18)
[2018-10-07] MEDS: OXYCODONE HCL IR 5 MG TABLET PO SCH ×5 (00:20→23:45)
[2018-10-07] MEDS: OXYCODONE-ACETAMINOPHEN 5-325 MG TABLET PO SCH ×5 (00:21→23:46)
[2018-10-07] MEDS ORDERED: EPOETIN ALFA INJ 20000 UNIT/1 ML VIAL (RENAL) IV PRN (05:00)
[2018-10-07] MEDS: CLONIDINE HCL 0.1 MG TABLET PO SCH ×3 (05:26→22:30)
[2018-10-07] MEDS: NIFEDIPINE 30 MG TAB.ER.24 PO SCH ×2 (05:27→17:06)
[2018-10-07] MEDS: OXCARBAZEPINE 150 MG TABLET PO SCH ×2 (05:28→17:06)
[2018-10-07 06:14] LABS: HEMATOCRIT 26.4 % (36.0-47.0); HEMOGLOBIN 9.2 g/dL (12.0-15.5); MEAN CORPUSCULAR HEMOGLOBIN 30.7 pg (27.0-33.4); MEAN CORPUSCULAR VOLUME 88 fl (80-97); PLATELET COUNT 230 10^3/uL (150-450); RED BLOOD COUNT 3.01 10^6/uL (3.72-5.28); RED CELL DISTRIBUTION WIDTH 14.8 % (11.5-14.0); WHITE BLOOD COUNT 4.3 10^3/uL (4.0-10.5)
[2018-10-07 06:34] LABS: ANION GAP 22 (5-19); BLOOD UREA NITROGEN 47 mg/dL (7-20); CALCIUM 8.1 mg/dL (8.4-10.2); CARBON DIOXIDE 24 mmol/L (22-30); CHLORIDE 90 mmol/L (98-107); GLUCOSE 241 mg/dL (75-110); POTASSIUM 4.4 mmol/L (3.6-5.0); SODIUM 135.9 mmol/L (137-145)
[2018-10-07 06:49] LABS: ABSOLUTE LYMPHOCYTES# (MANUAL) 1.6 10^3/uL (0.5-4.7); ABSOLUTE MONOCYTES # (MANUAL) 0.4 10^3/uL (0.1-1.4); ABSOLUTE NEUTROPHILS# (MANUAL) 1.9 10^3/uL (1.7-8.2); BASOPHILS % (MANUAL) 0 % (0-2); EOSINOPHILS % (MANUAL) 9 % (0-6); LYMPHOCYTES % (MANUAL) 38 % (13-45); MONOCYTES % (MANUAL) 9 % (3-13); SEGMENTED NEUTROPHILS % (MAN) 44 % (42-78); TOTAL CELLS COUNTED 100
[2018-10-07 06:51] LABS: ANISOCYTOSIS SLIGHT; OVALOCYTES 2+; POIKILOCYTOSIS 2+; TOXIC GRANULATION SLIGHT
[2018-10-07 06:52] LABS: PLATELET COMMENT ADEQUATE; TEAR DROP CELLS 1+
[2018-10-07] MEDS ORDERED: FENTANYL CITRATE INJ/PF 100 MCG/2 ML AMPUL ONE (08:50)
[2018-10-07] MEDS ORDERED: ONDANSETRON HCL INJ/PF 4 MG/2 ML SDV ONE (08:51)
[2018-10-07] MEDS ORDERED: MIDAZOLAM 2 MG/2 ML INJ ONE (08:51)
[2018-10-07] MEDS ORDERED: PROPOFOL INJ 200 MG/20 ML VIAL IV ONE (08:51)
[2018-10-07] MEDS ORDERED: LIDOCAINE 1%/EPINEPHRINE INJ 20 ML VIAL ONE (08:58)
[2018-10-07] MEDS ORDERED: LIDOCAINE 2% JELLY 30 ML TUBE ONE (08:58)
[2018-10-07] MEDS ORDERED: OXYCODONE-ACETAMINOPHEN 5-325 MG TABLET PO PRN (09:49)
--- NOTE | 2018-10-07 09:53 | Operative Report ---
Nonrecallable Operative Report DATE OF SURGERY: 10/07/18 PREOPERATIVE DIAGNOSIS: 1. Rectal bleeding. 2. Thrombosed external mid anterior hemorrhoid POSTOPERATIVE DIAGNOSIS: Same OPERATION: 1. Examination under anesthesia of the anal rectal canal. 2. Excision of thrombosed hemorrhoid with primary closure SURGEON: TUYET ORTA ANESTHESIA: LMAC TISSUE REMOVED OR ALTERED: Thrombosed hemorrhoid COMPLICATIONS: None ESTIMATED BLOOD LOSS: 10 cc INTRAOPERATIVE FINDINGS: See below PROCEDURE: Patient was taken to the preop holding area the main operating room where LMAC anesthesia was induced. She was placed in the prone, jackknife position, buttocks spread widely. The buttocks and perineum were prepped draped sterile fashion. Surgical plan surgical timeout were conducted. The findings are significant for a moderate sized thrombosed anterior external hemorrhoid. The hemorrhoid and perianal tissue was anesthetized with quarter percent Marcaine. The hemorrhoid was excised from Scott line to the perianal tissue in elliptical fashion. This was performed using a knife, then Metzenbaum scissors. The dorsal and epithelial defect was closed with a running , locking 4-0 chromic suture. Bleeding was minimal, only venous oozing. Compression dressing of Gelfoam, lidocaine jelly and 4 x 4's applied. Patient tolerated procedure well. She is taken recovery in stable condition.
[2018-10-07] MEDS: FENTANYL CITRATE INJ/PF 100 MCG/2 ML AMPUL ONE ×2 (10:04→10:10)
[2018-10-07] MEDS: FUROSEMIDE 80 MG TABLET PO SCH ×3 (11:14→17:05)
[2018-10-07] MEDS: INSULIN DETEMIR 100 UNIT/ML 3 ML PEN SUBCUT SCH ×2 (11:15→22:34)
[2018-10-07] MEDS ORDERED: DIPHENHYDRAMINE HCL 25 MG CAPSULE PO ONE (11:30)
[2018-10-07] MEDS: DOCUSATE SODIUM 100 MG CAPSULE PO SCH ×2 (12:17→17:04)
--- NOTE | 2018-10-07 16:55 | PDOC PROGRESS REPORT ---
Subjective Progress Note for:: 10/07/18 Subjective:: I am seeing the patient on dialysis this afternoon. She complains of pain after she had surgery today with excision of the thrombosed hemorrhoid by Dr. Cheney. She said she is still having some bleeding this morning before the surgery. She is being given pain medications because of the pain. She is still a little bit drowsy while on dialysis. Otherwise she is tolerating dialysis well without any problems. Her blood pressure is well controlled. Reason For Visit: LOWER GI BLEED,ESRD ON HEMODIALYSIS, TYPE 1 Physical Exam Vital Signs: Temp Pulse Resp BP Pulse Ox 98.1 F 82 16 117/60 97 10/07/18 10:35 10/07/18 10:35 10/07/18 10:35 10/07/18 10:35 10/07/18 10:35 Intake & Output 10/06/18 10/07/18 10/08/18 06:59 06:59 06:59 Intake Total 1794 740 250 Output Total 4800 350 105 Balance -3006 390 145 Weight 117.2 kg 118.8 kg Vitals during dialysis right now: Blood pressure 132/70, heart rate of 84, blood flow rate of 100 mL/min, dialysate flow rate of 800 mL/min. Exam: General appearance: PRESENT: no acute distress, cooperative, well-developed, well-nourished Head exam: PRESENT: atraumatic, normocephalic Eye exam: PRESENT: conjunctiva pink, PERRLA. ABSENT: scleral icterus Neck exam: ABSENT: JVD Respiratory exam: PRESENT: Diminished breath sounds. ABSENT: crackles, rales, rhonchi, unlabored, wheezes Cardiovascular exam: PRESENT: Regular rate rhythm -+S1, +S2. ABSENT: diastolic murmur, systolic murmur GI/Abdominal exam: PRESENT: normal bowel sounds, soft. ABSENT: guarding, mass, tenderness Extremities exam: ABSENT: No edema Neurological exam: PRESENT: Currently drowsy but arousable and answers during limited questions. Skin exam: PRESENT: dry, warm, GI/Abdominal exam: PRESENT: normal bowel sounds, soft, tenderness - mildly tender in the hypogastrium.. ABSENT: distended, firm, guarding, organomegaly Results Laboratory Results: 10/07/18 05:40 10/07/18 05:40 10/07/18 10/07/18 10/07/18 05:40 05:40 05:47 WBC 4.3 RBC 3.01 L Hgb 9.2 L Hct 26.4 L MCV 88 MCH 30.7 MCHC 35.0 RDW 14.8 H Plt Count 230 Seg Neutrophils % Not Reportable Lymphocytes % Not Reportable Monocytes % Not Reportable Eosinophils % Not Reportable Basophils % Not Reportable Absolute Neutrophils Not Reportable Absolute Lymphocytes Not Reportable Absolute Monocytes Not Reportable Absolute Eosinophils Not Reportable Absolute Basophils Not Reportable Sodium 135.9 L Potassium 4.4 Chloride 90 L Carbon Dioxide 24 Anion Gap 22 H BUN 47 H Creatinine 9.72 H Est GFR ( Amer) 6 L Est GFR (Non-Af Amer) 5 L Glucose 241 H Calcium 8.1 L Serum HCG, Qual NEGATIVE 10/05/18 10/05/18 10/06/18 19:40 19:40 01:41 Creatine Kinase 80 64 CK-MB (CK-2) 0.39 Troponin I < 0.012 10/06/18 10/06/18 10/06/18 01:41 07:40 07:40 Creatine Kinase 64 CK-MB (CK-2) 0.22 0.26 Troponin I < 0.012 < 0.012 Impressions: Abdomen/Pelvis CT 10/06/18 00:00 IMPRESSION: There is a fluid-filled colon, which can be seen in diarrheal illness. There are no other noncontrast CT findings to explain acute abdominal pain. Assessment & Plan - Diagnosis (1) ESRD (end stage renal disease) on dialysis Is this a current diagnosis for this admission?: Yes Plan: We will do dialysis today for 3 hours, using the patient's right AV fistula, with 2 potassium bath, blood flow rate of 400 mL per minute, dialysate flow rate of 800 mL per minute, ultrafiltration 4-5 L as tolerated, no heparin and Procrit with 20,000 units during dialysis intravenously. Patient will be monitored continuously while on dialysis. (2) Anemia in chronic kidney disease (CKD) Is this a current diagnosis for this admission?: Yes Plan: Procrit being given today. (3) Blood loss anemia Is this a current diagnosis for this admission?: Yes Plan: Due to rectal bleeding. (4) Rectal bleeding Is this a current diagnosis for this admission?: Yes Plan: Status post excision of thrombosed hemorrhoids by Dr. Cheney today. (5) Diabetes mellitus type 1 with complications Is this a current diagnosis for this admission?: Yes (6) Hypertension Qualifiers: Hypertension type: essential hypertension Qualified Code(s): I10 - Essential (primary) hypertension Is this a current diagnosis for this admission?: Yes - Time Time with patient: 15-25 minutes
[2018-10-07] MEDS: PAROXETINE HCL 20 MG TABLET PO SCH (17:06)
--- NOTE | 2018-10-07 21:26 | PDOC PROGRESS REPORT ---
Subjective Progress Note for:: 10/07/18 Subjective:: She had excision of thrombosed hemorrhoids, complaint of rectal pain Reason For Visit: LOWER GI BLEED,ESRD ON HEMODIALYSIS, TYPE 1 Physical Exam Vital Signs: Temp Pulse Resp BP Pulse Ox 97.6 F 92 19 131/63 H 97 10/07/18 19:17 10/07/18 19:17 10/07/18 19:17 10/07/18 19:17 10/07/18 19:17 Intake & Output 10/06/18 10/07/18 10/08/18 06:59 06:59 06:59 Intake Total 1794 740 250 Output Total 4800 350 105 Balance -3006 390 145 Weight 117.2 kg 118.8 kg General appearance: PRESENT: no acute distress Eye exam: PRESENT: PERRLA Respiratory exam: PRESENT: clear to auscultation freddy Cardiovascular exam: PRESENT: +S1, +S2 Results Laboratory Results: 10/07/18 05:40 10/07/18 05:40 10/07/18 10/07/18 10/07/18 05:40 05:40 05:47 WBC 4.3 RBC 3.01 L Hgb 9.2 L Hct 26.4 L MCV 88 MCH 30.7 MCHC 35.0 RDW 14.8 H Plt Count 230 Seg Neutrophils % Not Reportable Lymphocytes % Not Reportable Monocytes % Not Reportable Eosinophils % Not Reportable Basophils % Not Reportable Absolute Neutrophils Not Reportable Absolute Lymphocytes Not Reportable Absolute Monocytes Not Reportable Absolute Eosinophils Not Reportable Absolute Basophils Not Reportable Sodium 135.9 L Potassium 4.4 Chloride 90 L Carbon Dioxide 24 Anion Gap 22 H BUN 47 H Creatinine 9.72 H Est GFR ( Amer) 6 L Est GFR (Non-Af Amer) 5 L Glucose 241 H Calcium 8.1 L Serum HCG, Qual NEGATIVE 10/05/18 10/05/18 10/06/18 19:40 19:40 01:41 Creatine Kinase 80 64 CK-MB (CK-2) 0.39 Troponin I < 0.012 10/06/18 10/06/18 10/06/18 01:41 07:40 07:40 Creatine Kinase 64 CK-MB (CK-2) 0.22 0.26 Troponin I < 0.012 < 0.012 Impressions: Abdomen/Pelvis CT 10/06/18 00:00 IMPRESSION: There is a fluid-filled colon, which can be seen in diarrheal illness. There are no other noncontrast CT findings to explain acute abdominal pain. Assessment & Plan - Diagnosis (1) Lower GI bleed Is this a current diagnosis for this admission?: Yes (2) End stage renal disease Is this a current diagnosis for this admission?: Yes (3) Thrombosed external hemorrhoid Is this a current diagnosis for this admission?: Yes (4) Fibroepithelial polyp Is this a current diagnosis for this admission?: Yes
[2018-10-07] MEDS: PSYLLIUM SEED-SF 5.85 GM PACKET PO SCH (22:24)
[2018-10-08 06:42] LABS: HEMATOCRIT 27.7 % (36.0-47.0); HEMOGLOBIN 9.3 g/dL (12.0-15.5); MEAN CORPUSCULAR HEMOGLOBIN 29.9 pg (27.0-33.4); MEAN CORPUSCULAR HGB CONC 33.5 g/dL (32.0-36.0); MEAN CORPUSCULAR VOLUME 89 fl (80-97); PLATELET COUNT 222 10^3/uL (150-450); RED CELL DISTRIBUTION WIDTH 15.1 % (11.5-14.0); WHITE BLOOD COUNT 5.4 10^3/uL (4.0-10.5)
[2018-10-08] MEDS: OXYCODONE HCL IR 5 MG TABLET PO SCH ×2 (06:46→12:20)
[2018-10-08] MEDS: CLONIDINE HCL 0.1 MG TABLET PO SCH ×2 (06:46→13:55)
[2018-10-08] MEDS: OXYCODONE-ACETAMINOPHEN 5-325 MG TABLET PO SCH ×2 (06:49→12:21)
[2018-10-08] MEDS: OXCARBAZEPINE 150 MG TABLET PO SCH (06:51)
[2018-10-08] MEDS: NIFEDIPINE 30 MG TAB.ER.24 PO SCH (06:51)
[2018-10-08 07:04] LABS: ANION GAP 15 (5-19); CALCIUM 8.5 mg/dL (8.4-10.2); CARBON DIOXIDE 30 mmol/L (22-30); CHLORIDE 94 mmol/L (98-107); GLUCOSE 249 mg/dL (75-110); POTASSIUM 4.1 mmol/L (3.6-5.0); SODIUM 139.3 mmol/L (137-145)
[2018-10-08 07:05] LABS: ABSOLUTE LYMPHOCYTES# (MANUAL) 1.5 10^3/uL (0.5-4.7); ABSOLUTE MONOCYTES # (MANUAL) 0.6 10^3/uL (0.1-1.4); BAND NEUTROPHILS % (MANUAL) 1 % (3-5); BASOPHILS % (MANUAL) 1 % (0-2); EOSINOPHILS % (MANUAL) 5 % (0-6); LYMPHOCYTES % (MANUAL) 28 % (13-45); MONOCYTES % (MANUAL) 11 % (3-13); SEGMENTED NEUTROPHILS % (MAN) 54 % (42-78); TOTAL CELLS COUNTED 100
[2018-10-08 07:06] LABS: ANISOCYTOSIS 1+; PLATELET COMMENT ADEQUATE
[2018-10-08 07:19] LABS: BLOOD UREA NITROGEN 26 mg/dL (7-20)
[2018-10-08] MEDS: PSYLLIUM SEED-SF 5.85 GM PACKET PO SCH (09:12)
[2018-10-08] MEDS: INSULIN DETEMIR 100 UNIT/ML 3 ML PEN SUBCUT SCH (09:12)
[2018-10-08] MEDS: DOCUSATE SODIUM 100 MG CAPSULE PO SCH (09:12)
[2018-10-08] MEDS: FUROSEMIDE 80 MG TABLET PO SCH ×2 (09:12→13:56)
[2018-10-08] MEDS: INSULIN LISPRO 100 UNIT/ML 3 ML VIAL SUBCUT PRN ×2 (09:13→12:21)
[2018-10-08 14:57] VITALS: BP 122/56
--- NOTE | 2018-10-08 15:28 | PDOC DISCHARGE SUMMARY ---
General - Admit/Disc Date/PCP Admission Date/Primary Care Provider: 10/05/18 14:33 HILARY HERNANDEZ MD Discharge Date: 10/08/18 - Discharge Diagnosis (1) Lower GI bleed Is this a current diagnosis for this admission?: Yes (2) End stage renal disease Is this a current diagnosis for this admission?: Yes (3) Thrombosed external hemorrhoid Is this a current diagnosis for this admission?: Yes (4) Fibroepithelial polyp Is this a current diagnosis for this admission?: Yes - Additional Information Resuscitation Status: Full Code Discharge Diet: Other (Comments) Discharge Activity: Activity As Tolerated, Balance Activity w/Rest Home Medications: Alprazolam [Xanax 0.5 mg Tablet] 0.5 mg PO BIDP PRN 10/05/18 Doxepin HCl [Silenor] 6 mg PO QHS 10/05/18 Furosemide [Lasix 80 mg Tablet] 80 mg PO TID 10/05/18 Gabapentin Enacarbil [Horizant] 300 mg PO QPM 10/05/18 Insulin Detemir [Levemir] 30 units SQ BID 10/05/18 Nifedipine [Nifedipine ER] 60 mg PO Q12 10/05/18 Oxcarbazepine [Trileptal] 300 mg PO BID 10/05/18 Oxycodone HCl/Acetaminophen [Percocet 7.5-325 mg Tablet] 1 tab PO Q6 10/05/18 Paroxetine HCl [Paxil] 40 mg PO QPM 10/05/18 RX: Clonidine HCl [Catapres 0.1 mg Tablet] 0.1 mg PO Q8 10/05/18 RX: Promethazine HCl [Phenergan 25 mg Tablet] 25 mg PO Q6HP PRN 10/05/18 History of Present Illness History of Present Illness: ERICH GOODMAN is a 33 year old female,She came to the emergency room for evaluation of rectal bleed, She has end-stage renal disease on hemodialysis, because of the rectal bleed she did not go to outpatient dialysis today she came to the emergency room, consultation will be obtained from nephrology for hemodialysis of this patient and also, consultation be obtained from surgery for colonoscopy Hospital Course Hospital Course: Patient was admitted when she presented with lower GI bleed, she underwent colonoscopy, it was negative she was found to have thrombosed external hemorrhoid, she underwent excision of the thrombosed external hemorrhoid yesterday. She also have end-stage renal disease on hemodialysis Physical Exam Vital Signs: Temp Pulse Resp BP Pulse Ox 97.6 F 91 20 122/56 L 99 10/08/18 14:55 10/08/18 14:55 10/08/18 14:55 10/08/18 14:55 10/08/18 14:55 Intake & Output 10/07/18 10/08/18 10/09/18 06:59 06:59 06:59 Intake Total 740 990 Output Total 350 105 Balance 390 885 Weight 118.8 kg 119.1 kg General appearance: PRESENT: no acute distress, well-developed, well-nourished Head exam: PRESENT: atraumatic, normocephalic Eye exam: PRESENT: conjunctiva pink, EOMI, PERRLA Ear exam: PRESENT: normal external ear exam Mouth exam: PRESENT: moist, tongue midline Neck exam: PRESENT: full ROM Respiratory exam: PRESENT: clear to auscultation freddy Cardiovascular exam: PRESENT: RRR, +S1, +S2 Vascular exam: PRESENT: normal capillary refill GI/Abdominal exam: PRESENT: normal bowel sounds, soft Rectal exam: PRESENT: deferred Neurological exam: PRESENT: alert, awake, oriented to person, oriented to place , oriented to time, oriented to situation, CN II-XII grossly intact Psychiatric exam: PRESENT: appropriate affect, normal mood Skin exam: PRESENT: dry, intact, warm Results Laboratory Results: 10/08/18 05:24 10/08/18 05:24 10/08/18 10/08/18 05:24 05:24 WBC 5.4 RBC 3.10 L Hgb 9.3 L Hct 27.7 L MCV 89 MCH 29.9 MCHC 33.5 RDW 15.1 H Plt Count 222 Seg Neutrophils % Not Reportable Lymphocytes % Not Reportable Monocytes % Not Reportable Eosinophils % Not Reportable Basophils % Not Reportable Absolute Neutrophils Not Reportable Absolute Lymphocytes Not Reportable Absolute Monocytes Not Reportable Absolute Eosinophils Not Reportable Absolute Basophils Not Reportable Sodium 139.3 Potassium 4.1 Chloride 94 L Carbon Dioxide 30 Anion Gap 15 BUN 26 H D Creatinine 6.79 H Est GFR ( Amer) 9 L Est GFR (Non-Af Amer) 7 L Glucose 249 H Calcium 8.5 10/06/18 09:40 Stool - Stool - Final 10/06/18 09:40 Stool - Stool Stool Culture - Final NO SALMONELLA, SHIGELLA, CAMPYLOBACTER, OR E.COLI 0157 RECOVERED. NEGATIVE FOR SHIGA TOXINS 1&2. 10/05/18 10/05/18 10/06/18 19:40 19:40 01:41 Creatine Kinase 80 64 CK-MB (CK-2) 0.39 Troponin I < 0.012 10/06/18 10/06/18 10/06/18 01:41 07:40 07:40 Creatine Kinase 64 CK-MB (CK-2) 0.22 0.26 Troponin I < 0.012 < 0.012 Impressions: Abdomen/Pelvis CT 10/06/18 00:00 IMPRESSION: There is a fluid-filled colon, which can be seen in diarrheal illness. There are no other noncontrast CT findings to explain acute abdominal pain. Qualifiers - * PATIENT BEING DISCHARGED WITH ANY OF THE FOLLOWING DIAGNOSIS: No
[2018-10-08] MEDS ORDERED: OXYCODONE HCL IR 5 MG TABLET PO ONE (15:30)
[2018-10-08] MEDS ORDERED: OXYCODONE-ACETAMINOPHEN 5-325 MG TABLET PO ONE (15:30)
--- NOTE | 2018-10-09 03:17 | CONSULTATION REPORT E ---
Consultation Report NAME: ERICH GOODMAN : 1985 AGE: 33Y DATE: 10/08/2018 415 A TO: [facility] CLEANING M.D. FROM: HILARY HERNANDEZ M.D. Requesting Physician The patient is a 33-year-old G3, P1-0-2-1. She had last menstrual period approximately 2 weeks ago, and presented to the hospital with some rectal bleeding and has undergone hemorrhoidectomy. We were asked to see the patient for possible vaginal bleeding. 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 Exam was not able to be done secondary to her recent surgery, so I suggest we do a pelvic ultrasound just for position of the IUD and to rule out pelvic pathology. ASSESSMENT: This is a 33-year-old with heavy vaginal bleeding and has a Mirena. The patient will probably respond to the Mirena and over a period of the next few months she will become very light or she will become amenorrheic. Will continue to check on her while she is in the hospital. Will review her ultrasound after it is done. DICTATING PHYSICIAN: Cornell CLEANING M.D. [id number] Y#: [id number] ID: [id number] JOB#: [id number] ACCT: [id number] cc:Cornell CLEANING M.D. >
== END 2018-10-08 15:44 | disposition home or self-care (01) | DRG 347 ==
LOC: ER 08:39 → OBSVTOIN 14:33 → EH 14:33 → 4N 19:15
PROVIDERS: ADMIT Internal Medicine; ATTEND Internal Medicine
PROC: 0DJD8ZZ Inspection of Lower Intestinal Tract, Via Natural or Artificial Opening Endoscopic (ICD-10-PCS; 2018-10-06)
PROC: 0DJD8ZZ Inspection of Lower Intestinal Tract, Via Natural or Artificial Opening Endoscopic (ICD-10-PCS; 2018-10-06 13:30)
PROC: 06BY0ZC Excision of Hemorrhoidal Plexus, Open Approach (ICD-10-PCS; principal; 2018-10-07 09:15)
DX: K62.5 Hemorrhage of anus and rectum (principal); N18.6 End stage renal disease; I12.0 Hypertensive chronic kidney disease with stage 5 chronic kidney disease or end stage renal disease; Z99.2 Dependence on renal dialysis; K64.5 Perianal venous thrombosis; K62.0 Anal polyp; E87.5 Hyperkalemia; D63.1 Anemia in chronic kidney disease; E10.22 Type 1 diabetes mellitus with diabetic chronic kidney disease; L40.9 Psoriasis, unspecified; F32.9 Major depressive disorder, single episode, unspecified; Z90.49 Acquired absence of other specified parts of digestive tract; Z79.899 Other long term (current) drug therapy; Z88.6 Allergy status to analgesic agent; Z88.1 Allergy status to other antibiotic agents; Z88.8 Allergy status to other drugs, medicaments and biological substances
CPT/HCPCS: 36415; 45378; 46600; 74176; 80048; 80053; 82272; 82550; 82553; 82962; 83690; 83735; 84100; 84484; 84703; 85025; 85610; 85730; 87045; 87205; 88304; 902; 99285; J0171; J1610; J1815; J2250; J2310; J2405; J2704; J3010; J3490; Q4081

== ENCOUNTER 2018-10-18 12:30 | Emergency (ER) | payer MEDICARE, MEDICAID ==
[2018-10-18 12:56] LABS: ABSOLUTE BASOPHILS # (AUTO) 0.1 10^3/uL (0.0-0.2); ABSOLUTE EOSINOPHILS # (AUTO) 0.6 10^3/uL (0.0-0.6); ABSOLUTE LYMPHOCYTES (AUTO) 1.7 10^3/uL (0.5-4.7); ABSOLUTE MONOCYTES (AUTO) 0.6 10^3/uL (0.1-1.4); ABSOLUTE NEUT (AUTO) 3.3 10^3/uL (1.7-8.2); EOSINOPHILS % (AUTO) 9.2 % (0-6); HEMATOCRIT 28.2 % (36.0-47.0); HEMOGLOBIN 9.4 g/dL (12.0-15.5); LYMPHOCYTES % (AUTO) 27.2 % (13-45); MEAN CORPUSCULAR HEMOGLOBIN 29.5 pg (27.0-33.4); MEAN CORPUSCULAR HGB CONC 33.2 g/dL (32.0-36.0); MEAN CORPUSCULAR VOLUME 89 fl (80-97); MONOCYTES % (AUTO) 9.9 % (3-13); PLATELET COUNT 414 10^3/uL (150-450); RED BLOOD COUNT 3.17 10^6/uL (3.72-5.28); RED CELL DISTRIBUTION WIDTH 15.2 % (11.5-14.0); SEGMENTED NEUTROPHILS % (AUTO) 52.7 % (42-78); TOTAL CELLS COUNTED % (AUTO) 100 %; WHITE BLOOD COUNT 6.4 10^3/uL (4.0-10.5)
[2018-10-18 13:19] LABS: ALANINE AMINOTRANSFERASE 15 U/L (9-52); ALBUMIN 4.6 g/dL (3.5-5.0); ALKALINE PHOSPHATASE 173 U/L (38-126); ASPARTATE AMINO TRANSFERASE 21 U/L (14-36); BILIRUBIN,DIRECT 0.6 mg/dL (0.0-0.4); BILIRUBIN,TOTAL 0.6 mg/dL (0.2-1.3); BLOOD UREA NITROGEN 62 mg/dL (7-20); GLUCOSE 77 mg/dL (75-110); POTASSIUM 5.7 mmol/L (3.6-5.0); TOTAL PROTEIN 8.7 g/dL (6.3-8.2)
[2018-10-18 13:25] LABS: CARBON DIOXIDE 22 mmol/L (22-30); CHLORIDE 91 mmol/L (98-107); SODIUM 141.2 mmol/L (137-145)
[2018-10-18 13:26] LABS: ANION GAP 28 (5-19)
--- NOTE | 2018-10-18 13:32 | EKG REPORT ---
SEVERITY:- ABNORMAL ECG - SINUS RHYTHM NONSPECIFIC T ABNORMALITIES, ANT-LAT LEADS PROLONGED QT INTERVAL : Confirmed by: Ciro Beckford MD 18-Oct-2018 13:31:53
--- NOTE | 2018-10-18 16:21 | ER Document Report ---
ED General - General Mode of Arrival: Medic Information source: Patient TRAVEL OUTSIDE OF THE [place] IN LAST 30 DAYS: No <CIPRIANO KINCAID - Last Filed: 10/18/18 18:50> <CLAUDINE GARRISON - Last Filed: 10/18/18 20:31> - General Chief Complaint: Back Pain Stated Complaint: LEG PAIN Time Seen by Provider: 10/18/18 13:37 Notes: Patient is a 33-year-old female who is well-known to our emergency department who presents with chief complaint of allover body aches. She reports she has been having pain since Wednesday. She is a dialysis patient and missed her dialysis yesterday due to the pain. She denies any new shortness of breath or cough. She reports chills but denies any fever. Denies any dysuria. (CIPRIANO KINCAID) - Related Data Allergies/Adverse Reactions: aspirin [Aspirin] Allergy (Verified 10/05/18 08:42) Anaphylaxis ciprofloxacin [From Cipro] Allergy (Verified 10/05/18 08:42) Anaphylaxis clindamycin [Clindamycin] Allergy (Verified 10/05/18 08:42) hydrocodone [From Vicodin] Allergy (Verified 10/05/18 08:42) ibuprofen [From Motrin] Allergy (Verified 10/05/18 08:42) Anaphylaxis lidocaine [From Lidoderm] Allergy (Verified 10/05/18 08:42) Generalized rash tramadol HCl [From Ultram] Allergy (Verified 10/05/18 08:42) vancomycin [Vancomycin] Allergy (Verified 10/05/18 08:42) Shortness of Breath nitroglycerin [Nitroglycerin] Adverse Reaction (Intermediate, Verified 10/05/18 08:42) Joint pain Past Medical History - General Information source: Patient - Social History Smoking Status: Unknown if Ever Smoked Frequency of alcohol use: None Drug Abuse: None Family History: Reviewed & Not Pertinent Patient has suicidal ideation: No Patient has homicidal ideation: No - Past Medical History Cardiac Medical History: Reports: Hx Congestive Heart Failure, Hx Coronary Artery Disease, Hx Hypertension, Hx Heart Murmur Pulmonary Medical History: Reports: Hx Asthma, Hx Pneumonia Neurological Medical History: Reports: Hx Migraine, Hx Seizures Endocrine Medical History: Reports: Hx Diabetes Mellitus Type 1, Hx Diabetes Mellitus Type 2 Renal/ Medical History: Reports: Hx End Stage Renal Disease - On hemodialysis MWF, Hx Hemodialysis, Hx Ovarian Cysts. Denies: Hx Peritoneal Dialysis Malignancy Medical History: GI Medical History: Reports: Hx Gastritis. Denies: Hx Pancreatitis Musculoskeletal Medical History: Skin Medical History: Reports Hx Psoriasis Psychiatric Medical History: Reports: Hx Depression Traumatic Medical History: Infectious Medical History: Past Surgical History: Reports: Hx Appendectomy, Hx Cholecystectomy, Hx Vascular Surgery - Lt AV Fistula and graft; Rt AV fistula. Denies: Hx Hysterectomy - Immunizations Immunizations up to date: Yes Hx Diphtheria, Pertussis, Tetanus Vaccination: Yes Hx Pneumococcal Vaccination: 08/22/11 <CIPRIANO KINCAID - Last Filed: 10/18/18 18:50> Review of Systems - Review of Systems Constitutional: Chills, Other - Body aches -: Yes All other systems reviewed and negative <CIPRIANO KINCAID - Last Filed: 10/18/18 18:50> Physical Exam <CIPRIANO KINCAID - Last Filed: 10/18/18 18:50> <CLAUDINE GARRISON - Last Filed: 10/18/18 20:31> - Vital signs Vitals: Resp 20 10/18/18 12:41 - Notes Notes: PHYSICAL EXAMINATION: GENERAL: Well-appearing, well-nourished and in no acute distress. HEAD: Atraumatic, normocephalic. EYES: Pupils equal round and reactive to light, extraocular movements intact, conjunctiva are normal. ENT: Nares patent, oropharynx clear without exudates. Moist mucous membranes. NECK: Normal range of motion, supple without lymphadenopathy LUNGS: Breath sounds clear to auscultation bilaterally and equal. No wheezes rales or rhonchi. HEART: Regular rate and rhythm without murmurs ABDOMEN: Soft, nontender, nondistended abdomen. No guarding, no rebound. No masses appreciated. Female : No CVA tenderness. Musculoskeletal: Normal range of motion, no pitting or edema. No cyanosis. Tenderness to palpation along lumbar paraspinous muscles bilaterally. No tenderness over the cervical spine. NEUROLOGICAL: Cranial nerves grossly intact. Normal sensory, motor exams PSYCH: Normal mood, normal affect. SKIN: Warm, Dry, normal turgor, no rashes or lesions noted. (CIPRIANO KINCAID) Course - Laboratory Result Diagrams: 10/18/18 12:43 10/18/18 12:43 <CIPRIANO KINCAID - Last Filed: 10/18/18 18:50> - Laboratory Result Diagrams: 10/18/18 12:43 10/18/18 12:43 <CLAUDINE GARRISON - Last Filed: 10/18/18 20:31> - Re-evaluation Re-evalutation: K+ 5.7, BUN 62, Creatinine 17.11, BNP 9,000. Will treat hyperkalemia and then consult nephrology to determine if patient needs emergent diaplysis or if she can wait and attend her regularly scheduled dialysis in the am. 10/18/18 17:[address] Hernandez, patient's primary care provider who states that he would like me to consult nephrology. 10/18/18 17:[address] Kwon ammonium sulfate operator. 10/18/18 18:00 I have not heard back from Dr. Kwon, paged Dr. Kwon again ammonium sulfate operator. Spoke with Dr. Carlos regarding patient status, plan to treat hyperkalemia, then repeat labs. 10/18/18 18:[address] Kwon home phone and left message. (CIPRIANO KINCAID) 10/18/18 20:20 Dr. Kwon called, I spoke to him in regards to patient's presentation, complaints, workup. No additional recommendations at this time except patient be given 30 g of Kayexalate and to be strongly advised to go to dialysis tomorrow. Does not recommend repeat of chemistry. I discussed with patient at bedside. She states that she just could not get up for dialysis yesterday, and for she states it because she was weak, then she states it was because she had pain, I again advised her that we do not have the ability to perform dialysis but at this time her recommendation by her high pressure boiler operator is that she be given the medication in follow-up early tomorrow morning. She states she will do this. She denies any other questions or complaints. Blood pressure is 150 systolic, she is not tachycardic, she is alert, eating. Stable at time of discharge. (CLAUDINE GARRISON) - Vital Signs Vital signs: Temp Pulse Resp BP Pulse Ox 98.3 F 12 168/67 H 94 10/18/18 15:01 10/18/18 19:02 10/18/18 19:02 10/18/18 17:02 - Laboratory Laboratory results interpreted by me: 10/18/18 10/18/18 10/18/18 12:43 12:43 12:43 RBC 3.17 L Hgb 9.4 L Hct 28.2 L RDW 15.2 H Eosinophils % 9.2 H Potassium 5.7 H Chloride 91 L Anion Gap 28 H BUN 62 H Creatinine 17.11 H Est GFR ( Amer) 3 L Est GFR (Non-Af Amer) 2 L Direct Bilirubin 0.6 H Alkaline Phosphatase 173 H NT-Pro-B Natriuret Pep 9000 H Total Protein 8.7 H Discharge <CIPRIANO KINCAID - Last Filed: 10/18/18 18:50> <CLAUDINE GARRISON - Last Filed: 10/18/18 20:31> - Discharge Clinical Impression: Body aches, ESRD (end stage renal disease) on dialysis, Hyperkalemia Condition: Stable Disposition: HOME, SELF-CARE Additional Instructions: Your potassium is somewhat elevated today, you have been medicated for this, I spoke to Dr. Kwon your high pressure boiler operator on the phone, please follow-up tomorrow to perform dialysis or you can develop dangerous elevation of your potassium. Return to the emergency department for any concerning symptoms including difficulty breathing, passing out, fever, or any other concerning symptoms. Referrals: HILARY HERNANDEZ MD [Primary Care Provider] - Follow up as needed
--- NOTE | 2018-10-18 16:35 | RADIOLOGY REPORT (SQ) ---
EXAM DESCRIPTION: CHEST SINGLE VIEW COMPLETED DATE/TIME: 10/18/2018 4:25 pm REASON FOR STUDY: mpr/o chf COMPARISON: 07/23/2017 EXAM PARAMETERS: NUMBER OF VIEWS: One view. TECHNIQUE: Single frontal radiographic view of the chest acquired. RADIATION DOSE: NA LIMITATIONS: None. FINDINGS: LUNGS AND PLEURA: No opacities, masses or pneumothorax. No pleural effusion. MEDIASTINUM AND HILAR STRUCTURES: No masses. Contour normal. HEART AND VASCULAR STRUCTURES: Cardiomegaly, stable finding. Normal vasculature. BONES: No acute findings. HARDWARE: Right axillary and subclavian stent, stable findings. OTHER: Small calcific density overlies the left upper quadrant of the abdomen, nonspecific finding. IMPRESSION: 1. NO ACUTE RADIOGRAPHIC FINDING IN THE CHEST. 2. Cardiomegaly, stable finding. TECHNICAL DOCUMENTATION: JOB ID: [id number] [email or web address]- All Rights Reserved Reading location - IP/workstation name: [email or web address]
[2018-10-18] MEDS ORDERED: CALCIUM GLUCONATE 1000 MG/10 ML INJ IV ONE (18:17)
[2018-10-18] MEDS ORDERED: DEXTROSE 50%-WATER 25 GM/50 ML DISP.SYRIN IV ONE (18:20)
[2018-10-18] MEDS ORDERED: INSULIN REG, HUMAN 100 UNIT/ML 3 ML VIAL (PYX) IV ONE ×2 (18:21→18:45)
[2018-10-18] MEDS ORDERED: SODIUM POLYSTYRENE SULFONATE 15 GM/60 ML PO ONE (18:23)
[2018-10-18] MEDS ORDERED: MORPHINE SULFATE 10 MG/ML INJ IV ONE (18:44)
[2018-10-18] MEDS ORDERED: HYDROMORPHONE HCL INJ/PF 2 MG/ML AMPULE IM ONE (21:40)
[2018-10-18 22:33] VITALS: BP 148/78
== END 2018-10-18 22:20 | disposition home or self-care (01) ==
LOC: ER 12:30
DX: E11.22 Type 2 diabetes mellitus with diabetic chronic kidney disease (principal); I13.2 Hypertensive heart and chronic kidney disease with heart failure and with stage 5 chronic kidney disease, or end stage renal disease; I50.9 Heart failure, unspecified; E87.5 Hyperkalemia; N18.6 End stage renal disease; I25.10 Atherosclerotic heart disease of native coronary artery without angina pectoris; M79.10 Myalgia, unspecified site; M54.9 Dorsalgia, unspecified; Z88.3 Allergy status to other anti-infective agents; Z88.6 Allergy status to analgesic agent; Z99.2 Dependence on renal dialysis; Z90.49 Acquired absence of other specified parts of digestive tract
CPT/HCPCS: 93005; 99284; 96372; 96374; 96375; 36415; 82962; 85025; 80053; 83605; 83880; 71045; 93010; J0610; J3490; J2270; J1170; A9270; J1815

== ENCOUNTER 2018-10-23 05:28 | Emergency (ER) | payer MEDICARE, MEDICAID ==
[2018-10-23 06:20] LABS: ABSOLUTE BASOPHILS # (AUTO) 0.1 10^3/uL (0.0-0.2); ABSOLUTE EOSINOPHILS # (AUTO) 0.8 10^3/uL (0.0-0.6); ABSOLUTE LYMPHOCYTES (AUTO) 2.8 10^3/uL (0.5-4.7); ABSOLUTE MONOCYTES (AUTO) 0.7 10^3/uL (0.1-1.4); ABSOLUTE NEUT (AUTO) 2.5 10^3/uL (1.7-8.2); EOSINOPHILS % (AUTO) 12.1 % (0-6); HEMATOCRIT 29.5 % (36.0-47.0); HEMOGLOBIN 9.9 g/dL (12.0-15.5); LYMPHOCYTES % (AUTO) 40.2 % (13-45); MEAN CORPUSCULAR HEMOGLOBIN 29.2 pg (27.0-33.4); MEAN CORPUSCULAR HGB CONC 33.5 g/dL (32.0-36.0); MEAN CORPUSCULAR VOLUME 87 fl (80-97); MONOCYTES % (AUTO) 10.6 % (3-13); PLATELET COUNT 440 10^3/uL (150-450); RED BLOOD COUNT 3.38 10^6/uL (3.72-5.28); RED CELL DISTRIBUTION WIDTH 15.7 % (11.5-14.0); SEGMENTED NEUTROPHILS % (AUTO) 36.1 % (42-78); TOTAL CELLS COUNTED % (AUTO) 100 %; WHITE BLOOD COUNT 6.9 10^3/uL (4.0-10.5)
--- NOTE | 2018-10-23 06:36 | ER Document Report ---
ED General - General Chief Complaint: General Weakness Stated Complaint: WEAKNESS Time Seen by Provider: 10/23/18 06:24 Information source: Patient Notes: 33-year-old female presents emergency department with complaints of generalized weakness over the last week. Patient states that she was seen in the emergency department last week and was found to have hyperkalemia. Patient was given medications and discharged home. Patient states that she had dialysis Wednesday, Wednesday, Wednesday. Patient states that she is not feeling any better. She denies any fever, chills, rhinorrhea, sore throat, cough, abdominal pain, nausea , vomiting, diarrhea, constipation. Patient states that she does make a small amount of urine. Patient follows up with Dr. Kwon. TRAVEL OUTSIDE OF THE [place] IN LAST 30 DAYS: No - HPI Onset: Last week Onset/Duration: Constant Quality of pain: No pain Severity: Mild Associated symptoms: Weakness Exacerbated by: Denies Relieved by: Denies Similar symptoms previously: Yes Recently seen / treated by doctor: Yes - Related Data Allergies/Adverse Reactions: aspirin [Aspirin] Allergy (Verified 10/05/18 08:42) Anaphylaxis ciprofloxacin [From Cipro] Allergy (Verified 10/05/18 08:42) Anaphylaxis clindamycin [Clindamycin] Allergy (Verified 10/05/18 08:42) hydrocodone [From Vicodin] Allergy (Verified 10/05/18 08:42) ibuprofen [From Motrin] Allergy (Verified 10/05/18 08:42) Anaphylaxis lidocaine [From Lidoderm] Allergy (Verified 10/05/18 08:42) Generalized rash tramadol HCl [From Ultram] Allergy (Verified 10/05/18 08:42) vancomycin [Vancomycin] Allergy (Verified 10/05/18 08:42) Shortness of Breath nitroglycerin [Nitroglycerin] Adverse Reaction (Intermediate, Verified 10/05/18 08:42) Joint pain Past Medical History - General Information source: Patient - Social History Smoking Status: Never Smoker Chew tobacco use (# tins/day): No Frequency of alcohol use: None Drug Abuse: None Family History: Reviewed & Not Pertinent Patient has suicidal ideation: No Patient has homicidal ideation: No - Past Medical History Cardiac Medical History: Reports: Hx Congestive Heart Failure, Hx Coronary Artery Disease, Hx Hypertension, Hx Heart Murmur Pulmonary Medical History: Reports: Hx Asthma, Hx Pneumonia Neurological Medical History: Reports: Hx Migraine, Hx Seizures - only r/t low calcium Endocrine Medical History: Reports: Hx Diabetes Mellitus Type 1, Hx Diabetes Mellitus Type 2 Renal/ Medical History: Reports: Hx End Stage Renal Disease - On hemodialysis MWF, Hx Hemodialysis, Hx Ovarian Cysts. Denies: Hx Peritoneal Dialysis Malignancy Medical History: GI Medical History: Reports: Hx Gastritis. Denies: Hx Pancreatitis Musculoskeletal Medical History: Skin Medical History: Reports Hx Psoriasis Psychiatric Medical History: Reports: Hx Depression Traumatic Medical History: Infectious Medical History: Past Surgical History: Reports: Hx Appendectomy, Hx Cholecystectomy, Hx Vascular Surgery - Lt AV Fistula and graft; Rt AV fistula. Denies: Hx Hysterectomy - Immunizations Immunizations up to date: Yes Hx Diphtheria, Pertussis, Tetanus Vaccination: Yes Hx Pneumococcal Vaccination: 08/22/11 Review of Systems - Review of Systems Constitutional: Weakness EENT: No symptoms reported Cardiovascular: No symptoms reported Respiratory: No symptoms reported Gastrointestinal: No symptoms reported Genitourinary: No symptoms reported Female Genitourinary: No symptoms reported Musculoskeletal: No symptoms reported Skin: No symptoms reported Hematologic/Lymphatic: No symptoms reported Neurological/Psychological: No symptoms reported -: Yes All other systems reviewed and negative Physical Exam - Vital signs Vitals: Temp Pulse Resp BP Pulse Ox 97.8 F 96 16 166/86 H 96 10/23/18 05:35 10/23/18 05:35 10/23/18 05:35 10/23/18 05:35 10/23/18 05:35 - Notes Notes: PHYSICAL EXAMINATION: GENERAL: Well-appearing, well-nourished and in no acute distress. HEAD: Atraumatic, normocephalic. EYES: Pupils equal round and reactive to light, extraocular movements intact, conjunctiva are normal. ENT: Nares patent, oropharynx clear without exudates. Moist mucous membranes. NECK: Normal range of motion, supple without lymphadenopathy LUNGS: Breath sounds clear to auscultation bilaterally and equal. No wheezes rales or rhonchi. HEART: Regular rate and rhythm without murmurs ABDOMEN: Soft, nontender, nondistended abdomen. No guarding, no rebound. No masses appreciated. Female : deferred Musculoskeletal: Normal range of motion, no pitting or edema. No cyanosis. NEUROLOGICAL: Cranial nerves grossly intact. Normal speech, normal gait. Normal sensory, motor exams PSYCH: Normal mood, normal affect. SKIN: Warm, Dry, normal turgor, no rashes or lesions noted. Course - Re-evaluation Re-evalutation: 10/23/18 07:07 EKG: Ventricular rate 82, IN interval 216, QRS duration 96, QTc 524, sinus rhythm, left axis deviation, no ST segment elevation. 10/23/18 08:17 Labs and imaging obtained. Potassium and bicarb are normal. EKG appears similar to previous. Patient states that she is not able to urinate at this time. A catheter urine was attempted. Patient states that it was too painful and asked for this to be stopped. No urine was able to be obtained. I discussed the results with the patient. Patient is scheduled to get dialysis tomorrow. I will discharge her home. I told the patient to continue taking her medication as directed, to follow-up with her primary care physician this week, to get dialysis tomorrow as scheduled, and to return to the emergency department if she develops worsening symptoms. Patient is agreeable with plan of care. 10/23/18 08:17 10/23/18 14:33 - Vital Signs Vital signs: Temp Pulse Resp BP Pulse Ox 97.9 F 82 17 177/98 H 98 10/23/18 08:41 10/23/18 08:41 10/23/18 08:41 10/23/18 08:41 10/23/18 08:41 - Laboratory Result Diagrams: 10/23/18 06:10 10/23/18 06:10 Laboratory results interpreted by me: 10/23/18 10/23/18 06:10 06:10 RBC 3.38 L Hgb 9.9 L Hct 29.5 L RDW 15.7 H Seg Neutrophils % 36.1 L Eosinophils % 12.1 H Absolute Eosinophils 0.8 H Chloride 96 L Anion Gap 20 H BUN 32 H Creatinine 9.91 H Est GFR ( Amer) 6 L Est GFR (Non-Af Amer) 5 L Glucose 137 H Direct Bilirubin 0.5 H Alkaline Phosphatase 132 H Total Protein 8.4 H Discharge - Discharge Clinical Impression: Generalized weakness Condition: Good Disposition: HOME, SELF-CARE Instructions: Fatigue ([facility]) Referrals: HILARY HERNANDEZ MD [Primary Care Provider] - Follow up as needed
[2018-10-23 06:37] LABS: ALANINE AMINOTRANSFERASE 18 U/L (9-52); ALBUMIN 4.4 g/dL (3.5-5.0); ALKALINE PHOSPHATASE 132 U/L (38-126); ASPARTATE AMINO TRANSFERASE 28 U/L (14-36); BILIRUBIN,DIRECT 0.5 mg/dL (0.0-0.4); BILIRUBIN,TOTAL 0.5 mg/dL (0.2-1.3); BLOOD UREA NITROGEN 32 mg/dL (7-20); CALCIUM 9.2 mg/dL (8.4-10.2); GLUCOSE 137 mg/dL (75-110); POTASSIUM 4.2 mmol/L (3.6-5.0); TOTAL PROTEIN 8.4 g/dL (6.3-8.2)
[2018-10-23 06:42] LABS: CARBON DIOXIDE 26 mmol/L (22-30); CHLORIDE 96 mmol/L (98-107); SODIUM 142.2 mmol/L (137-145)
[2018-10-23 06:50] LABS: ANION GAP 20 (5-19)
--- NOTE | 2018-10-23 08:07 | EKG REPORT ---
SEVERITY:- ABNORMAL ECG - SINUS RHYTHM FIRST DEGREE AV BLOCK BORDERLINE LEFT AXIS DEVIATION NONSPECIFIC T ABNORMALITIES, LATERAL LEADS PROLONGED QT INTERVAL : Confirmed by: Ciro Beckford MD 23-Oct-2018 08:06:32
--- NOTE | 2018-10-23 08:15 | RADIOLOGY REPORT (SQ) ---
EXAM DESCRIPTION: CHEST SINGLE VIEW COMPLETED DATE/TIME: 10/23/2018 7:54 am REASON FOR STUDY: weakness COMPARISON: 10/18/2018 EXAM PARAMETERS: NUMBER OF VIEWS: One view. TECHNIQUE: Single frontal radiographic view of the chest acquired. RADIATION DOSE: NA LIMITATIONS: None. FINDINGS: LUNGS AND PLEURA: No opacities, masses or pneumothorax. No pleural effusion. MEDIASTINUM AND HILAR STRUCTURES: No masses. Contour normal. HEART AND VASCULAR STRUCTURES: Heart normal in size. Normal vasculature. BONES: No acute findings. HARDWARE: Right-sided vascular stent. OTHER: No other significant finding. IMPRESSION: NO ACUTE RADIOGRAPHIC FINDING IN THE CHEST. TECHNICAL DOCUMENTATION: JOB ID: [id number] [employer]- All Rights Reserved Reading location - IP/workstation name: [email or web address]
[2018-10-23 08:43] VITALS: BP 177/98
== END 2018-10-23 08:43 | disposition home or self-care (01) ==
LOC: ER 05:28
DX: R53.1 Weakness (principal); E11.22 Type 2 diabetes mellitus with diabetic chronic kidney disease; I13.2 Hypertensive heart and chronic kidney disease with heart failure and with stage 5 chronic kidney disease, or end stage renal disease; I50.9 Heart failure, unspecified; N18.6 End stage renal disease; I25.10 Atherosclerotic heart disease of native coronary artery without angina pectoris; Z99.2 Dependence on renal dialysis; Z90.49 Acquired absence of other specified parts of digestive tract; Z88.3 Allergy status to other anti-infective agents; Z88.6 Allergy status to analgesic agent
CPT/HCPCS: 36415; 71045; 80053; 84703; 85025; 93005; 93010; 99285

== ENCOUNTER 2018-11-02 08:44 | Emergency (ER) | payer MEDICARE, MEDICAID ==
[2018-11-02 10:03] LABS: ABSOLUTE BASOPHILS # (AUTO) 0.1 10^3/uL (0.0-0.2); ABSOLUTE EOSINOPHILS # (AUTO) 0.5 10^3/uL (0.0-0.6); ABSOLUTE MONOCYTES (AUTO) 0.5 10^3/uL (0.1-1.4); ABSOLUTE NEUT (AUTO) 3.8 10^3/uL (1.7-8.2); BASOPHILS % (AUTO) 0.8 % (0-2); EOSINOPHILS % (AUTO) 6.6 % (0-6); HEMATOCRIT 29.2 % (36.0-47.0); HEMOGLOBIN 9.6 g/dL (12.0-15.5); LYMPHOCYTES % (AUTO) 29.6 % (13-45); MEAN CORPUSCULAR HEMOGLOBIN 29.6 pg (27.0-33.4); MEAN CORPUSCULAR VOLUME 90 fl (80-97); MONOCYTES % (AUTO) 7.9 % (3-13); PLATELET COUNT 209 10^3/uL (150-450); RED BLOOD COUNT 3.26 10^6/uL (3.72-5.28); SEGMENTED NEUTROPHILS % (AUTO) 55.1 % (42-78); TOTAL CELLS COUNTED % (AUTO) 100 %; WHITE BLOOD COUNT 6.9 10^3/uL (4.0-10.5)
--- NOTE | 2018-11-02 10:18 | RADIOLOGY REPORT (SQ) ---
EXAM DESCRIPTION: CHEST SINGLE VIEW COMPLETED DATE/TIME: 11/02/2018 10:07 am REASON FOR STUDY: chst pain COMPARISON: 10/23/2018 EXAM PARAMETERS: NUMBER OF VIEWS: One view. TECHNIQUE: Single frontal radiographic view of the chest acquired. RADIATION DOSE: NA LIMITATIONS: Patient has made a shallow inspiration. FINDINGS: LUNGS AND PLEURA: There is some ill-defined increased density in the right perihilar regio n and I cannot exclude a developing infiltrate. Remaining lung mckeon are clear. No pleural effusio ns are identified. No pneumothorax is seen. MEDIASTINUM AND HILAR STRUCTURES: There is some prominence of the central clyde presumably related to the shallow inspiration HEART AND VASCULAR STRUCTURES: Heart normal in size. Normal vasculature. BONES: No acute findings. HARDWARE: Vascular stents are again identified in the right axillary region. OTHER: No other significant finding. IMPRESSION: Ill-defined increased density in the right perihilar region and I cannot exclude a devel oping infiltrate. Remaining lung mckeon are clear. Other findings as noted above TECHNICAL DOCUMENTATION: JOB ID: [id number]- All Rights Reserved Reading location - IP/workstation name: [facility]-[email or web address]
[2018-11-02 10:23] LABS: OVALOCYTES SLIGHT; PLATELET COMMENT ADEQUATE; POIKILOCYTOSIS SLIGHT; POLYCHROMASIA SLIGHT; ROULEAUX SLIGHT
[2018-11-02 10:24] LABS: ALANINE AMINOTRANSFERASE 21 U/L (9-52); ALKALINE PHOSPHATASE 157 U/L (38-126); ANION GAP 16 (5-19); ASPARTATE AMINO TRANSFERASE 17 U/L (14-36); BILIRUBIN,DIRECT 0.5 mg/dL (0.0-0.4); BILIRUBIN,TOTAL 0.5 mg/dL (0.2-1.3); BLOOD UREA NITROGEN 56 mg/dL (7-20); CALCIUM 8.2 mg/dL (8.4-10.2); CARBON DIOXIDE 24 mmol/L (22-30); CHLORIDE 98 mmol/L (98-107); CREATINE KINASE 81 U/L (30-135); GLUCOSE 383 mg/dL (75-110); POTASSIUM 4.8 mmol/L (3.6-5.0); SODIUM 137.9 mmol/L (137-145); TOTAL PROTEIN 7.6 g/dL (6.3-8.2)
[2018-11-02 10:36] LABS: CREATINE KINASE MB 0.55 ng/mL (<4.55)
[2018-11-02 10:39] LABS: TROPONIN I < 0.012 ng/mL
--- NOTE | 2018-11-02 11:39 | ER Document Report ---
ED Cardiac - General Chief Complaint: Chest Pain Stated Complaint: CHEST PAIN Time Seen by Provider: 11/02/18 09:17 TRAVEL OUTSIDE OF THE [place] IN LAST 30 DAYS: No - Related Data Allergies/Adverse Reactions: aspirin [Aspirin] Allergy (Verified 10/05/18 08:42) Anaphylaxis ciprofloxacin [From Cipro] Allergy (Verified 10/05/18 08:42) Anaphylaxis clindamycin [Clindamycin] Allergy (Verified 10/05/18 08:42) hydrocodone [From Vicodin] Allergy (Verified 10/05/18 08:42) ibuprofen [From Motrin] Allergy (Verified 10/05/18 08:42) Anaphylaxis lidocaine [From Lidoderm] Allergy (Verified 10/05/18 08:42) Generalized rash tramadol HCl [From Ultram] Allergy (Verified 10/05/18 08:42) vancomycin [Vancomycin] Allergy (Verified 10/05/18 08:42) Shortness of Breath nitroglycerin [Nitroglycerin] Adverse Reaction (Intermediate, Verified 10/05/18 08:42) Joint pain Past Medical History - Social History Smoking Status: Never Smoker Family History: Reviewed & Not Pertinent Patient has suicidal ideation: No Patient has homicidal ideation: No - Past Medical History Cardiac Medical History: Reports: Hx Congestive Heart Failure, Hx Coronary Artery Disease, Hx Hypertension, Hx Heart Murmur Pulmonary Medical History: Reports: Hx Asthma, Hx Pneumonia Neurological Medical History: Reports: Hx Migraine, Hx Seizures - only r/t low calcium Endocrine Medical History: Reports: Hx Diabetes Mellitus Type 1, Hx Diabetes Mellitus Type 2 Renal/ Medical History: Reports: Hx End Stage Renal Disease - On hemodialysis MWF, Hx Hemodialysis, Hx Ovarian Cysts, Hx Peritoneal Dialysis - MWF Malignancy Medical History: GI Medical History: Reports: Hx Gastritis. Denies: Hx Pancreatitis Musculoskeletal Medical History: Skin Medical History: Reports Hx Psoriasis Psychiatric Medical History: Reports: Hx Depression Traumatic Medical History: Infectious Medical History: Past Surgical History: Reports: Hx Appendectomy, Hx Cholecystectomy, Hx Vascular Surgery - Lt AV Fistula and graft; Rt AV fistula. Denies: Hx Hysterectomy - Immunizations Immunizations up to date: Yes Hx Diphtheria, Pertussis, Tetanus Vaccination: Yes Hx Pneumococcal Vaccination: 08/22/11 Physical Exam - Vital signs Vitals: Resp Pulse Ox 25 H 97 11/02/18 09:00 11/02/18 09:00 Course - Vital Signs Vital signs: Temp Pulse Resp BP Pulse Ox 23 H 175/93 H 94 11/02/18 09:50 11/02/18 09:50 11/02/18 09:50 - Laboratory Result Diagrams: 11/02/18 09:45 11/02/18 09:45 Laboratory results interpreted by me: 11/02/18 11/02/18 09:45 09:45 RBC 3.26 L Hgb 9.6 L Hct 29.2 L RDW 17.0 H Eosinophils % 6.6 H BUN 56 H Creatinine 7.81 H Est GFR ( Amer) 7 L Est GFR (Non-Af Amer) 6 L Glucose 383 H Calcium 8.2 L Direct Bilirubin 0.5 H Alkaline Phosphatase 157 H Discharge - Discharge Referrals: HILARY HERNANDEZ MD [Primary Care Provider] - Follow up as needed
[2018-11-02] MEDS ORDERED: AZITHROMYCIN 250 MG TABLET PO ONE (14:02)
--- NOTE | 2018-11-02 14:04 | ER Document Report ---
ED General - General Chief Complaint: Chest Pain Stated Complaint: CHEST PAIN Time Seen by Provider: 11/02/18 09:17 Mode of Arrival: Ambulatory Information source: Patient TRAVEL OUTSIDE OF THE [place] IN LAST 30 DAYS: No - HPI Patient complains to provider of: chest pain Onset: Other - 33 yo female with ESRD on dialysis m/w/f that presents for cough and cold symptoms with some associated chest tightness. She denies abdominal pain, constipation, diarrhea, lightheadedness. She has had similar symptoms in the past without any obvious cause idenitified, she denies nausea or diaphorese , does endorse low grade fever. The chest discomfort is a heaviines and tightness and has been ongoing for a week. - Related Data Allergies/Adverse Reactions: aspirin [Aspirin] Allergy (Verified 10/05/18 08:42) Anaphylaxis ciprofloxacin [From Cipro] Allergy (Verified 10/05/18 08:42) Anaphylaxis clindamycin [Clindamycin] Allergy (Verified 10/05/18 08:42) hydrocodone [From Vicodin] Allergy (Verified 10/05/18 08:42) ibuprofen [From Motrin] Allergy (Verified 10/05/18 08:42) Anaphylaxis lidocaine [From Lidoderm] Allergy (Verified 10/05/18 08:42) Generalized rash tramadol HCl [From Ultram] Allergy (Verified 10/05/18 08:42) vancomycin [Vancomycin] Allergy (Verified 10/05/18 08:42) Shortness of Breath nitroglycerin [Nitroglycerin] Adverse Reaction (Intermediate, Verified 10/05/18 08:42) Joint pain Past Medical History - General Information source: Patient - Social History Smoking Status: Never Smoker Family History: Reviewed & Not Pertinent Patient has suicidal ideation: No Patient has homicidal ideation: No - Past Medical History Cardiac Medical History: Reports: Hx Congestive Heart Failure, Hx Coronary Artery Disease, Hx Hypertension, Hx Heart Murmur Pulmonary Medical History: Reports: Hx Asthma, Hx Pneumonia Neurological Medical History: Reports: Hx Migraine, Hx Seizures - only r/t low calcium Endocrine Medical History: Reports: Hx Diabetes Mellitus Type 1, Hx Diabetes Mellitus Type 2 Renal/ Medical History: Reports: Hx End Stage Renal Disease - On hemodialysis MWF, Hx Hemodialysis, Hx Ovarian Cysts, Hx Peritoneal Dialysis - MWF Malignancy Medical History: GI Medical History: Reports: Hx Gastritis. Denies: Hx Pancreatitis Musculoskeletal Medical History: Skin Medical History: Reports Hx Psoriasis Psychiatric Medical History: Reports: Hx Depression Traumatic Medical History: Infectious Medical History: Past Surgical History: Reports: Hx Appendectomy, Hx Cholecystectomy, Hx Vascular Surgery - Lt AV Fistula and graft; Rt AV fistula. Denies: Hx Hysterectomy - Immunizations Immunizations up to date: Yes Hx Diphtheria, Pertussis, Tetanus Vaccination: Yes Hx Pneumococcal Vaccination: 08/22/11 Review of Systems - Review of Systems -: Yes All other systems reviewed and negative Physical Exam - Vital signs Vitals: Resp Pulse Ox 25 H 97 11/02/18 09:00 11/02/18 09:00 - General General appearance: Appears well, Alert - HEENT Head: Normocephalic, Atraumatic Eyes: Normal Pupils: PERRL - Respiratory Respiratory status: No respiratory distress Chest status: Nontender Breath sounds: Rales - inferior lung mckeon, Chest palpation: Normal - Cardiovascular Rhythm: Regular Heart sounds: Normal auscultation Murmur: No - Abdominal Inspection: Normal Distension: No distension Bowel sounds: Normal Tenderness: Nontender Organomegaly: No organomegaly - Back Back: Normal, Nontender - Extremities General upper extremity: Normal inspection, Nontender, Normal color, Normal ROM , Normal temperature General lower extremity: Normal inspection, Nontender, Normal color, Normal ROM , Normal temperature, Normal weight bearing. No: Lina's sign - Neurological Neuro grossly intact: Yes Cognition: Normal Orientation: AAOx4 [place] Coma Scale Eye Opening: Spontaneous [place] Coma Scale Verbal: Oriented [place] Coma Scale Motor: Obeys Commands [place] Coma Scale Total: 15 Speech: Normal Motor strength normal: LUE, RUE, LLE, RLE Sensory: Normal - Psychological Associated symptoms: Normal affect, Normal mood Course - Re-evaluation Re-evalutation: 33 yo with chest tightness, cough and low grade fever. She appears overall very well given her comorbidities. She has some crackles in the lungs. She was to be dialyzed today but missed because she came to the hospital. She has a normal troponin, unchanged EKG, an xray consistent with an atypical pneumonia. She has a normal potassium and I do not believe she needs emergency dialysis at this time. I will plan to start medication for presumtive coverage of CAP. She does not appear toxic and is stable on room air. She will be given return precautions and discharged with follow up in dialysis in 2 days. I do not believe this represents CA given the chronicity and nature as well as tropinin and monitoring. Do not beieve this represents other more serious cause of discomfort such as PE , pneumothorax or otherwise. - Vital Signs Vital signs: Temp Pulse Resp BP Pulse Ox 98.3 F 17 143/96 H 94 11/02/18 13:02 11/02/18 15:01 11/02/18 15:01 11/02/18 15:01 - Laboratory Result Diagrams: 11/02/18 09:45 11/02/18 09:45 Laboratory results interpreted by me: 11/02/18 11/02/18 09:45 09:45 RBC 3.26 L Hgb 9.6 L Hct 29.2 L RDW 17.0 H Eosinophils % 6.6 H BUN 56 H Creatinine 7.81 H Est GFR ( Amer) 7 L Est GFR (Non-Af Amer) 6 L Glucose 383 H Calcium 8.2 L Direct Bilirubin 0.5 H Alkaline Phosphatase 157 H Discharge - Discharge Clinical Impression: Cough, Atypical pneumonia Fatigue Qualifiers: Fatigue type: unspecified Qualified Code(s): R53.83 - Other fatigue Condition: Good Disposition: HOME, SELF-CARE Instructions: Acetaminophen, Chest Pain of Unclear Cause ([facility]), Viral Pneumonia ([facility]) Additional Instructions: You were seen today in the emergency department for the pain inside of your chest. He had evaluation including a physical exam as well as a chest x-ray, your blood work drawn as well. No damage to your heart was identified. It does appear that she may have a slight pneumonia at this time. If that is the case you have been given an antibiotic this will try to help with this. Make sure that you follow-up and have your normal dialysis session. Return for any worsening fevers, chills, cough, chest pain. Otherwise schedule appointment with Dr. Hernandez in the coming several days. Referrals: HILARY HERNANDEZ MD [Primary Care Provider] - Follow up as needed
[2018-11-02 15:28] VITALS: BP 143/96
--- NOTE | 2018-11-02 20:55 | EKG REPORT ---
SEVERITY:- BORDERLINE ECG - SINUS RHYTHM PROBABLE LEFT ATRIAL ABNORMALITY BORDERLINE LEFT AXIS DEVIATION BORDERLINE PROLONGED QT INTERVAL : Confirmed by: Beatriz Leyva MD 02-Nov-2018 20:54:21
--- NOTE | 2018-11-03 21:24 | EKG REPORT ---
SEVERITY:- ABNORMAL ECG - SINUS RHYTHM PROBABLE LEFT ATRIAL ABNORMALITY BORDERLINE LEFT AXIS DEVIATION PROLONGED QT INTERVAL : Confirmed by: Beatriz Leyva MD 03-Nov-2018 21:23:08
== END 2018-11-02 15:31 | disposition home or self-care (01) ==
LOC: ER 08:44
DX: J18.9 Pneumonia, unspecified organism (principal); R53.83 Other fatigue; R05 Cough; R07.9 Chest pain, unspecified; I13.2 Hypertensive heart and chronic kidney disease with heart failure and with stage 5 chronic kidney disease, or end stage renal disease; E11.22 Type 2 diabetes mellitus with diabetic chronic kidney disease; N18.6 End stage renal disease; I50.9 Heart failure, unspecified; Z99.2 Dependence on renal dialysis; J45.909 Unspecified asthma, uncomplicated
CPT/HCPCS: 93005; 99285; 36415; 87040; 82553; 82550; 85025; 80053; 84484; 71045; 93010; A9270

== ENCOUNTER 2018-11-03 05:10 | Inpatient (IN) | payer MEDICARE, MEDICAID ==
[2018-11-03] MEDS ORDERED: FUROSEMIDE INJ/PF 40 MG/4 ML SDV IV ONE (05:20)
--- NOTE | 2018-11-03 05:24 | ER Document Report ---
Doctor's Note Notes: 11/03/18 05:22 Patient is a 33-year-old female presents with complaint of difficulty breathing. She was seen yesterday in the ER for difficulty breathing. That time she said she was diagnosed with possible pneumonia. She was sent home and she was supposed to get dialyzed this morning at however still had worsening difficulty breathing tonight and therefore came to the ER this morning via a months. Paramedics said she was hypoxic and therefore placed on CPAP. She does have rales throughout her lung mckeon on exam. After being switched to BiPAP here patient is feeling him improved immediately with the BiPAP. She still has some shortness of breath but does not have increased work of breathing anymore. She does have rales in her lung mckeon. Her oxygen saturation on her BiPAP is 98%. She still makes a small amount urine. I have ordered Lasix. I have ordered blood work. EKG is not showing clear signs of underlying hyperkalemia at this time. Will be closely monitored. Further treatment and disposition decisions will be made by the oncoming morning ER physician. 11/03/18 05:23 11/03/18 05:23
[2018-11-03] MEDS ORDERED: ONDANSETRON HCL INJ/PF 4 MG/2 ML SDV ONE (05:28)
[2018-11-03] MEDS ORDERED: ONDANSETRON HCL INJ/PF 4 MG/2 ML SDV IV ONE (05:28)
[2018-11-03 05:55] LABS: ABSOLUTE BASOPHILS # (AUTO) 0.1 10^3/uL (0.0-0.2); ABSOLUTE EOSINOPHILS # (AUTO) 0.4 10^3/uL (0.0-0.6); ABSOLUTE LYMPHOCYTES (AUTO) 1.8 10^3/uL (0.5-4.7); ABSOLUTE MONOCYTES (AUTO) 0.5 10^3/uL (0.1-1.4); BASOPHILS % (AUTO) 0.7 % (0-2); EOSINOPHILS % (AUTO) 3.6 % (0-6); HEMATOCRIT 28.5 % (36.0-47.0); HEMOGLOBIN 9.5 g/dL (12.0-15.5); LYMPHOCYTES % (AUTO) 18.3 % (13-45); MEAN CORPUSCULAR HEMOGLOBIN 29.5 pg (27.0-33.4); MEAN CORPUSCULAR HGB CONC 33.2 g/dL (32.0-36.0); MEAN CORPUSCULAR VOLUME 89 fl (80-97); MONOCYTES % (AUTO) 4.8 % (3-13); PLATELET COUNT 208 10^3/uL (150-450); RED CELL DISTRIBUTION WIDTH 17.3 % (11.5-14.0); SEGMENTED NEUTROPHILS % (AUTO) 72.6 % (42-78); TOTAL CELLS COUNTED % (AUTO) 100 %; WHITE BLOOD COUNT 9.6 10^3/uL (4.0-10.5)
--- NOTE | 2018-11-03 05:56 | RADIOLOGY REPORT (SQ) ---
EXAM DESCRIPTION: XR CHEST 1 VIEW COMPLETED DATE/TME: 11/03/2018 05:17 CLINICAL HISTORY: 33 years, Female, dyspnea COMPARISON: 11/02/2018 chest x-ray NUMBER OF VIEWS: 1 TECHNIQUE: AP portable chest LIMITATIONS: None. FINDINGS: Cardiomegaly with interval worsening of airspace opacities bilaterally. No pneumothorax. IMPRESSION: Interval worsening of bilateral airspace opacities copyright 2010 [employer]- All Rights Reserved
[2018-11-03 06:15] LABS: ALANINE AMINOTRANSFERASE 18 U/L (9-52); ALBUMIN 4.3 g/dL (3.5-5.0); ALKALINE PHOSPHATASE 166 U/L (38-126); ANION GAP 19 (5-19); ASPARTATE AMINO TRANSFERASE 19 U/L (14-36); BILIRUBIN,DIRECT 0.5 mg/dL (0.0-0.4); BILIRUBIN,TOTAL 0.5 mg/dL (0.2-1.3); BLOOD UREA NITROGEN 63 mg/dL (7-20); CALCIUM 8.1 mg/dL (8.4-10.2); CARBON DIOXIDE 23 mmol/L (22-30); CHLORIDE 95 mmol/L (98-107); GLUCOSE 244 mg/dL (75-110); SODIUM 137.4 mmol/L (137-145)
[2018-11-03 06:18] LABS: POTASSIUM 6.2 mmol/L (3.6-5.0)
--- NOTE | 2018-11-03 06:26 | ER Document Report ---
ED General <LEVI PATRICK - Last Filed: 11/03/18 07:21> - General Mode of Arrival: Medic Information source: Patient TRAVEL OUTSIDE OF THE [place] IN LAST 30 DAYS: No <SHIRLENE PÉREZ - Last Filed: 11/03/18 07:41> - General Chief Complaint: Shortness Of Breath Stated Complaint: SHORTNESS OF BREATH Time Seen by Provider: 11/03/18 05:17 Notes: Patient is a 33 year old female, insulin dependent, MWF dialysis presents to the emergency department via EMS complaining of shortness of breath onset around 0400 this morning. Patient presented to the emergency department yesterday complaining of similar symptoms and was diagnosed with pneumonia, placed on Zithromax and discharged home. Patient states around 0400 this morning her shortness of breath significantly worsened and she called EMS. Patient also complains of hot flashes and diaphoresis. Patient denies any cough. Patient states she was supposed to go to dialysis yesterday but did not due to her symptoms. According to EMS patient was hypoxic upon their arrival and she was placed on CPAP with 93% oxygen saturation. Upon arrival to the emergency department, patient was immediately placed on BiPAP and her symptoms significantly improved with an oxygen saturation rate of 98% . Patient was also found to have rales bilaterally. (SHIRLENE PÉREZ) - Related Data Allergies/Adverse Reactions: aspirin [Aspirin] Allergy (Verified 10/05/18 08:42) Anaphylaxis ciprofloxacin [From Cipro] Allergy (Verified 10/05/18 08:42) Anaphylaxis clindamycin [Clindamycin] Allergy (Verified 10/05/18 08:42) hydrocodone [From Vicodin] Allergy (Verified 10/05/18 08:42) ibuprofen [From Motrin] Allergy (Verified 10/05/18 08:42) Anaphylaxis lidocaine [From Lidoderm] Allergy (Verified 10/05/18 08:42) Generalized rash tramadol HCl [From Ultram] Allergy (Verified 10/05/18 08:42) vancomycin [Vancomycin] Allergy (Verified 10/05/18 08:42) Shortness of Breath nitroglycerin [Nitroglycerin] Adverse Reaction (Intermediate, Verified 10/05/18 08:42) Joint pain Past Medical History - General Information source: Patient - Social History Smoking Status: Current Some Day Smoker Chew tobacco use (# tins/day): No Frequency of alcohol use: None Drug Abuse: None Family History: Reviewed & Not Pertinent Patient has suicidal ideation: No Patient has homicidal ideation: No - Past Medical History Cardiac Medical History: Reports: Hx Congestive Heart Failure, Hx Coronary Artery Disease, Hx Hypertension, Hx Heart Murmur Pulmonary Medical History: Reports: Hx Asthma, Hx Pneumonia Neurological Medical History: Reports: Hx Migraine, Hx Seizures - only r/t low calcium Endocrine Medical History: Reports: Hx Diabetes Mellitus Type 1, Hx Diabetes Mellitus Type 2 Renal/ Medical History: Reports: Hx End Stage Renal Disease - On hemodialysis MWF, Hx Hemodialysis, Hx Ovarian Cysts Malignancy Medical History: GI Medical History: Reports: Hx Gastritis Musculoskeletal Medical History: Skin Medical History: Reports Hx Psoriasis Psychiatric Medical History: Reports: Hx Depression Traumatic Medical History: Infectious Medical History: Past Surgical History: Reports: Hx Appendectomy, Hx Cholecystectomy, Hx Vascular Surgery - Lt AV Fistula and graft; Rt AV fistula. Denies: Hx Hysterectomy - Immunizations Immunizations up to date: Yes Hx Diphtheria, Pertussis, Tetanus Vaccination: Yes Hx Pneumococcal Vaccination: 08/22/11 <SHIRLENE PÉREZ - Last Filed: 11/03/18 07:41> Review of Systems - Review of Systems Constitutional: See HPI, Diaphoresis EENT: No symptoms reported Cardiovascular: No symptoms reported Respiratory: See HPI, Short of breath Gastrointestinal: No symptoms reported Genitourinary: No symptoms reported Female Genitourinary: No symptoms reported Musculoskeletal: No symptoms reported Skin: No symptoms reported Hematologic/Lymphatic: No symptoms reported Neurological/Psychological: No symptoms reported -: Yes All other systems reviewed and negative <SHIRLENE PÉREZ - Last Filed: 11/03/18 07:41> Physical Exam <LEVI PATRICK - Last Filed: 11/03/18 07:21> <SHIRLENE PÉREZ - Last Filed: 11/03/18 07:41> - Vital signs Vitals: Pulse Resp BP Pulse Ox 95 30 H 152/89 H 97 11/03/18 05:10 11/03/18 05:10 11/03/18 05:10 11/03/18 05:10 - Notes Notes: GENERAL: Alert, interacts well, appears comfortable. No acute distress. HEAD: Normocephalic, atraumatic. EYES: Pupils equal, round, and reactive to light. Extraocular movements intact. ENT: Oral mucosa moist, tongue midline. NECK: Full range of motion. Supple. Trachea midline. LUNGS: On BiPAP, 98% O2 saturation. Tachypneic. Decreased breath sounds in the lower lung mckeon bilaterally. Rales bilaterally. No respiratory distress. HEART: Regular rate and rhythm. No murmurs, gallops, or rubs. ABDOMEN: Soft, morbidly obese. Non-distended. Bowel sounds present in all 4 quadrants. EXTREMITIES: Moves all 4 extremities spontaneously. NEUROLOGICAL: Alert and oriented x3. Normal speech. PSYCH: Normal affect, normal mood. SKIN: Warm, dry, normal turgor. No rashes or lesions noted. (SHIRLENE PÉREZ) Course - Laboratory Result Diagrams: 11/03/18 05:28 11/03/18 05:28 - Diagnostic Test Radiology reviewed: Reports reviewed - Interval worsening of the bilateral lower lobe pulmonary infiltrates compared to yesterday. - EKG Interpretation by [place] EKG shows normal: Sinus rhythm, [place], QRS Complexes, ST-T Waves. abnormal: Intervals - Prolonged QT interval Rate: Normal - 94 Rhythm: NSR [place]/QRS: Left axis deviation P Waves: LAE When compared to previous EKG there are: No significant change - Consults Dr. Farah Time consulted: 07:07 Consulted provider: will see as inpatient - We will arrange for dialysis in the intensive care unit Dr. Hernandez Time consulted: 07:17 Consulted provider: will see as inpatient - Will admit to the intensive care unit. <LEVI PATRICK - Last Filed: 11/03/18 07:21> - Laboratory Result Diagrams: 11/03/18 05:28 11/03/18 05:28 <SHIRLENE PÉREZ - Last Filed: 11/03/18 07:41> - Vital Signs Vital signs: Temp Pulse Resp BP Pulse Ox 95 12 134/71 H 94 11/03/18 05:10 11/03/18 07:01 11/03/18 07:01 11/03/18 07:01 - Laboratory Laboratory results interpreted by me: 11/03/18 11/03/18 05:28 05:28 RBC 3.20 L Hgb 9.5 L Hct 28.5 L RDW 17.3 H Potassium 6.2 H* D Chloride 95 L BUN 63 H Creatinine 9.60 H Est GFR ( Amer) 6 L Est GFR (Non-Af Amer) 5 L Glucose 244 H Calcium 8.1 L Direct Bilirubin 0.5 H Alkaline Phosphatase 166 H Critical Care Note - Critical Care Note Total time excluding time spent on procedures (mins): 40 <LEVI PATRICK - Last Filed: 11/03/18 07:21> Discharge - Discharge Admitting Provider: Areli Unit Admitted: ICU <LEVI PATRICK - Last Filed: 11/03/18 07:21> <SHIRLENE PÉREZ - Last Filed: 11/03/18 07:41> - Discharge Clinical Impression: Hypoxemia, Bilateral pulmonary infiltrates on CXR, ESRD (end stage renal disease) on dialysis, Hyperkalemia Diabetes mellitus type 1 Qualifiers: Diabetes mellitus complication status: with unspecified complications Qualified Code(s): E10.8 - Type 1 diabetes mellitus with unspecified complications Condition: Good Disposition: ADMITTED INPATIENT Referrals: HILARY HERNANDEZ MD [Primary Care Provider] - Follow up as needed Scribe Attestation: 11/03/18 07:30 I personally performed the services described in the documentation, reviewed and edited the documentation which was dictated to the scribe in my presence, and it accurately records my words and actions. (LEVI PATRICK) Scribe Documentation - Scribe Written by Arnaldoibe:: Mariposa King, 11/03/2018 06:35 acting as scribe for :: Roxanna <SHIRLENE PÉREZ - Last Filed: 11/03/18 07:41>
[2018-11-03 06:29] LABS: CREATINE KINASE 84 U/L (30-135)
[2018-11-03 06:42] LABS: CREATINE KINASE MB 0.64 ng/mL (<4.55); TROPONIN I 0.024 ng/mL
[2018-11-03] MEDS ORDERED: FENTANYL CITRATE INJ/PF 100 MCG/2 ML AMPUL IV ONE (06:47)
[2018-11-03] MEDS ORDERED: CALCIUM GLUCONATE 1000 MG/10 ML INJ IV ONE (07:19)
[2018-11-03] MEDS ORDERED: SODIUM BICARBONATE 8.4% INJ 50 MEQ/50 ML DISP.SYRIN IV ONE (07:24)
[2018-11-03] MEDS ORDERED: SODIUM POLYSTYRENE SULFONATE 15 GM/60 ML PO ONE ×2 (07:25→07:45)
[2018-11-03] MEDS ORDERED: GLUCAGON,HUMAN RECOMB 1 MG INJ IM PRN (08:21)
[2018-11-03] MEDS ORDERED: DEXTROSE 50%-WATER 25 GM/50 ML DISP.SYRIN IV PRN ×2 (08:21)
[2018-11-03] MEDS ORDERED: DEXTROSE 40% GEL 15 GM TUBE PO PRN ×2 (08:21)
[2018-11-03] MEDS: INSULIN LISPRO 100 UNIT/ML 3 ML VIAL SUBCUT PRN ×2 (08:53→23:19)
[2018-11-03 09:07] LABS: INTERNATIONAL RATION (INR) 0.95; PROTHROMBIN TIME 13.2 SEC (11.4-15.4)
[2018-11-03 09:18] LABS: PARTIAL THROMBOPLASTIN TIME 32.2 SEC (23.5-35.8)
[2018-11-03 09:31] LABS: LIPASE 252.9 U/L (23-300)
[2018-11-03 09:44] LABS: CREATINE KINASE MB 0.65 ng/mL (<4.55); TROPONIN I 0.012 ng/mL
[2018-11-03 09:48] LABS: FREE T4 (FREE THYROXINE) 0.81 ng/dL (0.78-2.19)
[2018-11-03] MEDS ORDERED: CEFTRIAXONE 1 GM/D5W RTU 1 GM/50 ML RTUPB IV SCH (10:00)
[2018-11-03 10:02] LABS: THYROID STIMULATING HORMONE 0.92 uIU/mL (0.47-4.68)
[2018-11-03] MEDS: CEFTRIAXONE SODIUM 1,000 MG in DEXTROSE 5%-WATER 50 ML IV SCH (10:19)
[2018-11-03] MEDS ORDERED: NORMAL SALINE 1000 ML 1,000 ML IV PRN (12:43)
--- NOTE | 2018-11-03 13:03 | PDOC CONSULTATION ---
Consultation Consult Date: 11/03/18 Attending physician:: HILARY HERNANDEZ Consult reason:: I was asked to see the patient due to acute respiratory failure with possible acute pulmonary edema requiring emergent hemodialysis and ultrafiltration. History of Present Illness Admission Date/PCP: 11/03/18 07:30 HILARY HERNANDEZ MD History of Present Illness: ERICH GOODMAN is a 33 year old female with history of end-stage renal disease secondary to diabetic nephropathy, hypertension, diabetes mellitus type 1, who was brought into the emergency room by EMS because of worsening shortness of breath berry picker today. Patient went to the emergency room yesterday and was diagnosed with pneumonia complaining of shortness of breath. She was discharged with Zithromax. At around 4 AM she said she started having worsening shortness of breath along with some cough so EMS was called. She was found to be hypoxic and she was initially placed on CPAP with oxygen saturation of 93%. In the emergency room she was placed on BiPAP improving the oxygen saturation to 98%. A chest x-ray this morning showed increased bilateral airspace densities which is so much worse compared to the chest x-ray that was done yesterday. Patient denies any fever but feels warm to touch. She said she has some chest pains, headache and some arm pain. She missed her hemodialysis yesterday because she was in the emergency room so her last dialysis treatment was Wednesday. Initial evaluation in the emergency room also revealed a potassium of 6.2 so she was given Kayexalate, sodium bicarbonate and calcium gluconate. She was also given IV ceftriaxone for possible pneumonia. I arrange for emergency dialysis here in the ICU. I am seeing her now during dialysis treatment. She remains to be on BiPAP and she is hemodynamically stable tolerating dialysis well at this point. She is awake and able to answer questions well on the BiPAP. She is being monitored while being dialyzed here in the ICU. Past Medical History Cardiac Medical History: Reports: Coronary Artery Disease, Heart Murmur, Hypertension-primary Pulmonary Medical History: Reports: Asthma, Pneumonia Neurological Medical History: Reports: Migraine, Seizures - only r/t low calcium Endocrine Medical History: Reports: Diabetes Mellitus Type 1 Complications of Diabetes: Reports: Autonomic Neuropathy, Retinopathy Renal/ Medical History: Reports: End Stage Renal Disease - On hemodialysis MWF , Hyperkalemia, Hyperphosphatemia, Secondary Hyperparathyroidism Malignancy Medical History: GI Medical History: Musculoskeltal Medical History: Skin Medical History: Reports: Psoriasis Psychiatric Medical History: Reports: Depression Infectious Medical History: Hematology Medical History: Reports Anemia of Chronic Kidney Disease Past Surgical History Past Surgical History: Reports: Appendectomy, Cholecystectomy, Dialysis Access Surgery AVF, Vascular Surgery - Lt AV Fistula and graft; Rt AV fistula Social History Information Source: [facility], LATER [facility] Records Smoking Status: Current Some Day Smoker Frequency of Alcohol Use: None Hx Recreational Drug Use: No Drugs: None Hx Prescription Drug Abuse: No Family History Family History: No history of kidney disease Parental Family History Reviewed: Yes Children Family History Reviewed: Yes Sibling(s) Family History Reviewed.: Yes Medication/Allergy Home Medications: Alprazolam [Xanax 0.5 mg Tablet] 1 mg PO DAILYP PRN 10/05/18 Clonidine HCl [Catapres 0.1 mg Tablet] 0.1 mg PO Q8 10/05/18 Furosemide [Lasix 80 mg Tablet] 80 mg PO TID 10/05/18 Insulin Detemir [Levemir] 30 units SQ BID 10/05/18 Nifedipine [Nifedipine ER] 60 mg PO Q12 10/05/18 Oxcarbazepine [Trileptal] 300 mg PO BID 10/05/18 Oxycodone HCl/Acetaminophen [Percocet 7.5-325 mg Tablet] 1 tab PO Q6 PRN Paroxetine HCl [Paxil] 40 mg PO QPM 10/05/18 Promethazine HCl [Phenergan 25 mg Tablet] 12.5 mg PO Q12H PRN 10/05/18 Buprenorphine HCl [Belbuca] 300 mcg BC Q12 11/03/18 Calcium Carbonate [Tums] 200 mg PO PRN PRN 11/03/18 Carvedilol [Coreg 12.5 mg Tablet] 12.5 mg PO Q12 11/03/18 Insulin Lispro [Humalog Insulin 100 Unit/1 ml 3 ml Vial] 0 unit SUBCUT .SLD SCALE 11/03/18 Omeprazole 40 mg PO DAILY 11/03/18 Allergies/Adverse Reactions: aspirin [Aspirin] Allergy (Verified 10/05/18 08:42) Anaphylaxis ciprofloxacin [From Cipro] Allergy (Verified 10/05/18 08:42) Anaphylaxis clindamycin [Clindamycin] Allergy (Verified 10/05/18 08:42) hydrocodone [From Vicodin] Allergy (Verified 10/05/18 08:42) ibuprofen [From Motrin] Allergy (Verified 10/05/18 08:42) Anaphylaxis lidocaine [From Lidoderm] Allergy (Verified 10/05/18 08:42) Generalized rash tramadol HCl [From Ultram] Allergy (Verified 10/05/18 08:42) vancomycin [Vancomycin] Allergy (Verified 10/05/18 08:42) Shortness of Breath nitroglycerin [Nitroglycerin] Adverse Reaction (Intermediate, Verified 10/05/18 08:42) Joint pain Review of Systems All systems: reviewed and no additional remarkable complaints except as stated Review of Systems: Constitutional: ABSENT: chills, fatigue, fever(s), headache(s), weight gain, weight loss Eyes: ABSENT: visual disturbances Ears: ABSENT: hearing changes Cardiovascular: ABSENT: Dyspnea on exertion, edema, orthropnea, palpitations; admits pleuritic chest pains Respiratory: ABSENT: Hemoptysis; admits cough and shortness of breath Gastrointestinal: ABSENT: abdominal pain, constipation, diarrhea, hematemesis, hematochezia, nausea, vomiting Genitourinary: ABSENT: dysuria, hematuria Musculoskeletal: ABSENT: joint swelling Integumentary: ABSENT: rash, wounds Neurological: ABSENT: abnormal gait, abnormal speech, confusion, dizziness, focal weakness, numbness, syncope Psychiatric: ABSENT: anxiety, depression Endocrine: ABSENT: cold intolerance, heat intolerance, polydipsia, polyuria Hematologic/Lymphatic: ABSENT: easy bleeding, easy bruising, lymphadenopathy Physical Exam Vital Signs: Temp Pulse Resp BP Pulse Ox 98.9 F 100 30 H 137/78 H 97 11/03/18 11:13 11/03/18 11:13 11/03/18 11:13 11/03/18 11:13 11/03/18 11:13 Intake & Output 11/02/18 11/03/18 11/04/18 06:59 06:59 06:59 Intake Total 50 Balance 50 Weight 118.5 kg Vitals on dialysis: Blood pressure 135/81, pulse rate of 104, oxygen saturation 97%, blood flow rate of 400 mL/min, dialysate flow rate of 800 mL/min using her right arm AV fistula. Exam: General appearance: Patient is currently on BiPAP, awake, communicative, well- developed, well-nourished Head exam: PRESENT: atraumatic, normocephalic Eye exam: PRESENT: Conjunctiva pale, EOMI, PERRLA. ABSENT: conjunctival injection, scleral icterus Mouth exam: PRESENT: moist, neck supple, tongue midline Neck exam: PRESENT: full ROM. ABSENT: carotid bruit, JVD, lymphadenopathy, thyromegaly Respiratory exam: PRESENT: Coarse breath sounds to auscultation bilaterally. Bilateral bibasal rales ABSENT: Rhonchi, stridor, wheezes Cardiovascular exam: PRESENT: RRR, +S1, +S2. ABSENT: systolic murmur Pulses: PRESENT: normal radial pulses, normal dorsalis pedis pulses GI/Abdominal exam: PRESENT: normal bowel sounds, soft. ABSENT: guarding, mass, tenderness Rectal exam: Deferred Extremities exam: PRESENT: full ROM. ABSENT: calf tenderness, pedal edema Musculoskeletal: PRESENT: full ROM. ABSENT: deformity Neurological exam: PRESENT: alert, Awake, Oriented to person, Oriented to place , Oriented to time, reflexes normal, CN II-XII grossly intact. ABSENT: motor sensory deficit Psychiatric exam: PRESENT: appropriate affect, normal mood. ABSENT: homicidal ideation, suicidal ideation Skin exam: PRESENT: intact, dry, warm. ABSENT: rash Results Laboratory Results: 11/03/18 11/03/18 08:39 08:39 Phosphorus 7.0 H Magnesium 2.2 Amylase 135 H Lipase 252.9 TSH 0.92 Free T4 0.81 11/03/18 11/03/18 08:39 08:39 Creatine Kinase 75 CK-MB (CK-2) 0.65 Troponin I 0.012 Impressions: Chest X-Ray 11/03/18 05:17 IMPRESSION: Interval worsening of bilateral airspace opacities copyright 2011 [employer]- All Rights Reserved Assessment & Plan - Diagnosis (1) Acute hypoxemic respiratory failure Is this a current diagnosis for this admission?: Yes Plan: Requiring BiPAP. Most likely secondary to acute flash pulmonary edema with or without underlying pneumonia. Patient is currently being emergently dialyzed for ultrafiltration. (2) Bilateral pulmonary infiltrates on CXR Is this a current diagnosis for this admission?: Yes Plan: This developed overnight. So most likely secondary to acute flash pulmonary edema with or without underlying pneumonia. (3) Acute pulmonary edema Is this a current diagnosis for this admission?: Yes Plan: Patient requires emergent hemodialysis treatment for ultrafiltration. (4) ESRD (end stage renal disease) on dialysis Is this a current diagnosis for this admission?: Yes Plan: We will do dialysis today for 3 hours, using the patient's right upper arm AV fistula, with 1K bath for the first hour and then to potassium bath, blood flow rate of 400 mL per minute, dialysate flow rate of 800 mL per minute, ultrafiltration at least 4 L as tolerated, no heparin and no Procrit as her hemoglobin might be low secondary to hypervolemic state. Patient will be monitored toward during dialysis treatment here in the ICU. Will adjust treatment accordingly. We will plan to do another dialysis treatment tomorrow. (5) Hyperkalemia Is this a current diagnosis for this admission?: Yes Plan: Patient was given initial regimen for hyperkalemia in the emergency room. Dialysis will improve potassium levels. (6) Anemia in chronic kidney disease (CKD) Is this a current diagnosis for this admission?: Yes Plan: Procrit as needed during dialysis treatment. (7) Hyperphosphatemia Is this a current diagnosis for this admission?: Yes (8) Diabetes mellitus type 1 Qualifiers: Diabetes mellitus complication status: with unspecified complications Qualified Code(s): E10.8 - Type 1 diabetes mellitus with unspecified complications Is this a current diagnosis for this admission?: Yes (9) Atypical chest pain Is this a current diagnosis for this admission?: Yes (10) Hypertension Qualifiers: Hypertension type: essential hypertension Qualified Code(s): I10 - Essential (primary) hypertension Is this a current diagnosis for this admission?: Yes - Notes Notes: Thank you very much for this consultation. We will follow the patient with you and supervised her dialysis treatment while here in the hospital. - Time Time Spent: Greater than 70 Minutes
[2018-11-03] MEDS: HEPARIN SOD (PORCINE) 5,000 UNIT/ML 1 ML SYRINGE SUBCUT SCH ×2 (14:00→22:26)
[2018-11-03] MEDS: ACETAMINOPHEN 325 MG TABLET PO PRN (17:01)
[2018-11-03 21:53] LABS: CREATINE KINASE MB < 0.22 ng/mL (<4.55); TROPONIN I < 0.012 ng/mL
--- NOTE | 2018-11-03 22:16 | PDOC H&P ---
History of Present Illness Admission Date/PCP: 11/03/18 07:30 HILARY HERNANDEZ MD History of Present Illness: ERICH GOODMAN is a 33 year old female, She has end-stage renal disease on maintenance hemodialysis, she called me earlier this morning around 3 AM complaining to me that she was diagnosed with pneumonia in the emergency room when she visited the emergency room the day earlier, she said she was very short of breath and that she could not lay flat and she was having difficulty sleeping I advised her to return to the emergency room for evaluation, she was seen in the emergency room chest x-ray was done that showed opacities in both lung field that could represent pulmonary edema or pneumonia. She apparently Missed . hemodialysis because she was sick she has a history of end-stage renal disease on maintenance hemodialysis she has previously shown to be noncompliant with hemodialysis regimen but lately she has improved her adherence . She required emergency hemodialysis she was found to have hyperkalemia Past Medical History Cardiac Medical History: Reports: Congestive Heart Failure, Coronary Artery Disease, Hypertension, Heart Murmur Pulmonary Medical History: Reports: Asthma, Pneumonia Neurological Medical History: Reports: Migraine, Seizures - only r/t low calcium Endocrine Medical History: Reports: Diabetes Mellitus Type 1, Diabetes Mellitus Type 2 Renal/ Medical History: Reports: End Stage Renal Disease - On hemodialysis MWF Malignancy Medical History: GI Medical History: Musculoskeltal Medical History: Skin Medical History: Reports: Psoriasis Psychiatric Medical History: Reports: Depression Hematology: Reports: Anemia Infectious Medical History: Past Surgical History Past Surgical History: Reports: Appendectomy, Cholecystectomy, Vascular Surgery - Lt AV Fistula and graft; Rt AV fistula Denies: Hysterectomy Social History Smoking Status: Current Some Day Smoker Frequency of Alcohol Use: None Hx Recreational Drug Use: No Drugs: None Hx Prescription Drug Abuse: No Family History Family History: Reviewed & Not Pertinent Parental Family History Reviewed: Yes Children Family History Reviewed: Yes Sibling(s) Family History Reviewed.: Yes Medication/Allergy Home Medications: RX: Alprazolam [Xanax 0.5 mg Tablet] 1 mg PO DAILYP PRN 10/05/18 RX: Clonidine HCl [Catapres 0.1 mg Tablet] 0.1 mg PO Q8 10/05/18 RX: Furosemide [Lasix 80 mg Tablet] 80 mg PO TID 10/05/18 RX: Insulin Detemir [Levemir] 30 units SQ BID 10/05/18 RX: Nifedipine [Nifedipine ER] 60 mg PO Q12 10/05/18 RX: Oxcarbazepine [Trileptal] 300 mg PO BID 10/05/18 RX: Oxycodone HCl/Acetaminophen [Percocet 7.5-325 mg Tablet] 1 tab PO Q6 PRN 10/05/18 RX: Paroxetine HCl [Paxil] 40 mg PO QPM 10/05/18 RX: Buprenorphine HCl [Belbuca] 300 mcg BC Q12 11/03/18 RX: Calcium Carbonate [Tums] 200 mg PO PRN PRN 11/03/18 RX: Carvedilol [Coreg 12.5 mg Tablet] 12.5 mg PO Q12 11/03/18 RX: Insulin Lispro [Humalog Insulin (Lispro) 100 unit/mL] 0 unit SUBCUT .SLD SCALE 11/03/18 RX: Omeprazole 40 mg PO DAILY 11/03/18 Allergies/Adverse Reactions: aspirin [Aspirin] Allergy (Verified 10/05/18 08:42) Anaphylaxis ciprofloxacin [From Cipro] Allergy (Verified 10/05/18 08:42) Anaphylaxis clindamycin [Clindamycin] Allergy (Verified 10/05/18 08:42) hydrocodone [From Vicodin] Allergy (Verified 10/05/18 08:42) ibuprofen [From Motrin] Allergy (Verified 10/05/18 08:42) Anaphylaxis lidocaine [From Lidoderm] Allergy (Verified 10/05/18 08:42) Generalized rash tramadol HCl [From Ultram] Allergy (Verified 10/05/18 08:42) vancomycin [Vancomycin] Allergy (Verified 10/05/18 08:42) Shortness of Breath nitroglycerin [Nitroglycerin] Adverse Reaction (Intermediate, Verified 10/05/18 08:42) Joint pain Review of Systems Respiratory: PRESENT: cough, dyspnea Gastrointestinal: ABSENT: as per HPI, abdominal pain, bloating, coffee ground emesis, constipation, diarrhea, dysphagia, heartburn, hematemesis, hematochezia, melena, nausea, vomiting, other Neurological: ABSENT: as per HPI, abnormal gait, abnormal movements, abnormal speech, confusion, convulsions, dizziness, focal weakness, frequent falls, lack of coordination, memory loss, numbness, paresthesias, restless legs, syncope, tingling, tremor(s), vertigo, weakness, other Psychiatric: PRESENT: anxiety, depression Endocrine: ABSENT: as per HPI, cold intolerance, flushing, heat intolerance, menstrual abnormalities, polydipsia, polyphagia, polyuria, other Physical Exam Vital Signs: Temp Pulse Resp BP Pulse Ox 100.6 F H 108 H 22 H 150/78 H 100 11/03/18 21:49 11/03/18 15:00 11/03/18 20:00 11/03/18 18:01 11/03/18 20:00 Intake & Output 11/02/18 11/03/18 11/04/18 06:59 06:59 06:59 Intake Total 50 Output Total 4300 Balance -4250 Weight 118.5 kg General appearance: PRESENT: mild distress Eye exam: PRESENT: PERRLA Ear exam: PRESENT: normal external ear exam Mouth exam: PRESENT: moist, tongue midline Neck exam: PRESENT: full ROM Respiratory exam: PRESENT: clear to auscultation freddy Cardiovascular exam: PRESENT: RRR, +S1, +S2 Vascular exam: PRESENT: normal capillary refill GI/Abdominal exam: PRESENT: normal bowel sounds, soft Rectal exam: PRESENT: deferred Neurological exam: PRESENT: alert, awake, oriented to person, oriented to place, oriented to time, oriented to situation, CN II-XII grossly intact Psychiatric exam: PRESENT: appropriate affect, normal mood Skin exam: PRESENT: dry, intact, warm Results Laboratory Results: 11/03/18 11/03/18 08:39 08:39 Phosphorus 7.0 H Magnesium 2.2 Amylase 135 H Lipase 252.9 TSH 0.92 Free T4 0.81 11/03/18 11/03/18 11/03/18 08:39 08:39 20:36 Creatine Kinase 75 63 CK-MB (CK-2) 0.65 Troponin I 0.012 11/03/18 20:36 Creatine Kinase CK-MB (CK-2) < 0.22 Troponin I < 0.012 Impressions: Chest X-Ray 11/03/18 05:17 IMPRESSION: Interval worsening of bilateral airspace opacities copyright 2011 [employer]- All Rights Reserved Assessment & Plan - Diagnosis (1) Pneumonia Qualifiers: Pneumonia type: due to unspecified organism Laterality: unspecified laterality Lung location: unspecified part of lung Qualified Code(s): J18.9 - Pneumonia, unspecified organism Is this a current diagnosis for this admission?: Yes Plan: Start IV antibiotic (2) End stage chronic kidney disease Is this a current diagnosis for this admission?: Yes (3) Diabetes mellitus type 1 Qualifiers: Diabetes mellitus complication status: with unspecified complications Qualified Code(s): E10.8 - Type 1 diabetes mellitus with unspecified complications Is this a current diagnosis for this admission?: Yes (4) Hypoxemia Is this a current diagnosis for this admission?: Yes (5) Acute hypoxemic respiratory failure Is this a current diagnosis for this admission?: Yes
[2018-11-04] MEDS: ACETAMINOPHEN 325 MG TABLET PO PRN (00:30)
[2018-11-04] MEDS ORDERED: EPOETIN ALFA 10,000 UNIT in SYRINGE, DISPOSABLE, 1 EACH IV PRN (05:00)
[2018-11-04] MEDS ORDERED: EPOETIN ALFA INJ 20000 UNIT/1 ML VIAL (RENAL) IV PRN ×2 (05:00→11:20)
[2018-11-04] MEDS ORDERED: NORMAL SALINE 1000 ML 1,000 ML IV PRN ×2 (05:00→14:56)
[2018-11-04] MEDS: HEPARIN SOD (PORCINE) 5,000 UNIT/ML 1 ML SYRINGE SUBCUT SCH ×3 (06:22→21:26)
[2018-11-04] MEDS: OXYCODONE-ACETAMINOPHEN 5-325 MG TABLET PO PRN ×3 (08:04→21:24)
[2018-11-04] MEDS: OXYCODONE HCL IR 5 MG TABLET PO PRN ×3 (08:04→21:25)
[2018-11-04 09:20] LABS: ABSOLUTE EOSINOPHILS # (AUTO) 0.4 10^3/uL (0.0-0.6); ABSOLUTE LYMPHOCYTES (AUTO) 1.8 10^3/uL (0.5-4.7); ABSOLUTE MONOCYTES (AUTO) 0.6 10^3/uL (0.1-1.4); ABSOLUTE NEUT (AUTO) 4.5 10^3/uL (1.7-8.2); BASOPHILS % (AUTO) 0.5 % (0-2); EOSINOPHILS % (AUTO) 4.9 % (0-6); HEMATOCRIT 24.6 % (36.0-47.0); HEMOGLOBIN 8.1 g/dL (12.0-15.5); LYMPHOCYTES % (AUTO) 24.5 % (13-45); MEAN CORPUSCULAR HEMOGLOBIN 29.5 pg (27.0-33.4); MEAN CORPUSCULAR VOLUME 89 fl (80-97); MONOCYTES % (AUTO) 8.8 % (3-13); PLATELET COUNT 157 10^3/uL (150-450); RED BLOOD COUNT 2.75 10^6/uL (3.72-5.28); RED CELL DISTRIBUTION WIDTH 16.9 % (11.5-14.0); SEGMENTED NEUTROPHILS % (AUTO) 61.3 % (42-78); TOTAL CELLS COUNTED % (AUTO) 100 %; WHITE BLOOD COUNT 7.3 10^3/uL (4.0-10.5)
[2018-11-04 09:41] LABS: ANION GAP 16 (5-19); BLOOD UREA NITROGEN 47 mg/dL (7-20); CALCIUM 7.5 mg/dL (8.4-10.2); CARBON DIOXIDE 29 mmol/L (22-30); CHLORIDE 91 mmol/L (98-107); GLUCOSE 291 mg/dL (75-110); POTASSIUM 5.4 mmol/L (3.6-5.0); SODIUM 135.9 mmol/L (137-145)
[2018-11-04] MEDS: CEFTRIAXONE SODIUM 1,000 MG in DEXTROSE 5%-WATER 50 ML IV SCH (12:45)
--- NOTE | 2018-11-04 15:04 | PDOC PROGRESS REPORT ---
Subjective Progress Note for:: 11/04/18 Subjective:: I saw the patient during dialysis treatments at around 8:45 AM this morning. She was still wearing the BiPAP while receiving dialysis treatment. She indicated that she is still short of breath and is complaining of pain in the right side of the chest under the breast. Otherwise she was tolerating dialysis without any much problems. Reason For Visit: HYPERKALEMIA, PULMONARY EDEMA, PNEUMONIA, ESRD Physical Exam Vital Signs: Temp Pulse Resp BP Pulse Ox 99.1 F 102 H 17 128/70 H 100 11/04/18 12:00 11/04/18 09:36 11/04/18 14:00 11/04/18 12:02 11/04/18 14:00 Intake & Output 11/03/18 11/04/18 11/05/18 06:59 06:59 06:59 Intake Total 50 100 Output Total 4300 4400 Balance -4250 -4300 Weight 118.2 kg Vitals during dialysis: Blood pressure 163/84, rate of 96, oxygen saturation 100 % on BiPAP, blood flow rate of 400 mL/min, dialysate flow rate of 800 mL/min . Exam: General appearance: PRESENT: Still on BiPAP Head exam: PRESENT: atraumatic, normocephalic Eye exam: PRESENT: conjunctiva pale, PERRLA. ABSENT: scleral icterus Neck exam: ABSENT: JVD Respiratory exam: PRESENT: Diminished breath sounds. ABSENT: crackles, rales, rhonchi, unlabored, wheezes Cardiovascular exam: PRESENT: Regular rate rhythm -+S1, +S2. ABSENT: diastolic murmur, systolic murmur GI/Abdominal exam: PRESENT: normal bowel sounds, soft. ABSENT: guarding, mass, tenderness Extremities exam: ABSENT: No edema Neurological exam: PRESENT: alert, awake. Skin exam: PRESENT: dry, warm, Results Laboratory Results: 11/04/18 08:38 11/04/18 08:38 11/04/18 11/04/18 08:38 08:38 WBC 7.3 RBC 2.75 L Hgb 8.1 L Hct 24.6 L MCV 89 MCH 29.5 MCHC 33.0 RDW 16.9 H Plt Count 157 Seg Neutrophils % 61.3 Lymphocytes % 24.5 Monocytes % 8.8 Eosinophils % 4.9 Basophils % 0.5 Absolute Neutrophils 4.5 Absolute Lymphocytes 1.8 Absolute Monocytes 0.6 Absolute Eosinophils 0.4 Absolute Basophils 0.0 Sodium 135.9 L Potassium 5.4 H Chloride 91 L Carbon Dioxide 29 Anion Gap 16 BUN 47 H Creatinine 7.49 H Est GFR ( Amer) 8 L Est GFR (Non-Af Amer) 6 L Glucose 291 H Calcium 7.5 L 11/03/18 11/03/18 11/03/18 08:39 08:39 20:36 Creatine Kinase 75 63 CK-MB (CK-2) 0.65 Troponin I 0.012 11/03/18 20:36 Creatine Kinase CK-MB (CK-2) < 0.22 Troponin I < 0.012 Impressions: Chest X-Ray 11/03/18 05:17 IMPRESSION: Interval worsening of bilateral airspace opacities copyright 2011 [employer]- All Rights Reserved Assessment & Plan - Diagnosis (1) Acute hypoxemic respiratory failure Is this a current diagnosis for this admission?: Yes Plan: Still on BiPAP and nasal cannula while eating. (2) Bilateral pulmonary infiltrates on CXR Is this a current diagnosis for this admission?: Yes Plan: Recommend to repeat the chest x-ray at her this afternoon after dialysis or tomorrow to see if her bilateral airspace densities are improved with ultrafiltration further last 2 dialysis treatments versus underlying opacity due to pneumonia. (3) Acute pulmonary edema Is this a current diagnosis for this admission?: Yes Plan: We have obtain a good ultrafiltration of about 4 L yesterday and about 4.5 L today. (4) ESRD (end stage renal disease) on dialysis Is this a current diagnosis for this admission?: Yes Plan: We did dialysis today for 3 hours, using the patient's right arm AV fistula, with 2 potassium bath, blood flow rate of 400 mL per minute, dialysate flow rate of 800 mL per minute, ultrafiltration 4-4.5 L as tolerated, no heparin and Procrit with 20,000 units units during dialysis intravenously. Patient was monitored throughout dialysis treatment and has had no complications during treatment. (5) Hyperkalemia Is this a current diagnosis for this admission?: Yes Plan: Improved with dialysis. (6) Anemia in chronic kidney disease (CKD) Is this a current diagnosis for this admission?: Yes Plan: Procrit given during dialysis as needed. (7) Hyperphosphatemia Is this a current diagnosis for this admission?: Yes Plan: Resume phosphorus binders when patient is able to tolerate regular food on renal diet. (8) Diabetes mellitus type 1 Qualifiers: Diabetes mellitus complication status: with unspecified complications Qualified Code(s): E10.8 - Type 1 diabetes mellitus with unspecified complications Is this a current diagnosis for this admission?: Yes (9) Atypical chest pain Is this a current diagnosis for this admission?: Yes (10) Hypertension Qualifiers: Hypertension type: essential hypertension Qualified Code(s): I10 - Essential (primary) hypertension Is this a current diagnosis for this admission?: Yes - Time Time with patient: 15-25 minutes
[2018-11-04] MEDS: INSULIN LISPRO 100 UNIT/ML 3 ML VIAL SUBCUT PRN (16:23)
--- NOTE | 2018-11-04 21:29 | PDOC PROGRESS REPORT ---
Subjective Progress Note for:: 11/04/18 Subjective:: Patient seen by the bedside, she had dialysis today Reason For Visit: HYPERKALEMIA, PULMONARY EDEMA, PNEUMONIA, ESRD Physical Exam Vital Signs: Temp Pulse Resp BP Pulse Ox 99.5 F 96 18 140/69 H 97 11/04/18 19:26 11/04/18 20:07 11/04/18 18:00 11/04/18 17:58 11/04/18 18:00 Intake & Output 11/03/18 11/04/18 11/05/18 06:59 06:59 06:59 Intake Total 50 100 Output Total 4300 4420 Balance -4250 -4320 Weight 118.2 kg General appearance: PRESENT: no acute distress Eye exam: PRESENT: PERRLA Respiratory exam: PRESENT: clear to auscultation freddy Cardiovascular exam: PRESENT: +S1, +S2 GI/Abdominal exam: PRESENT: soft Neurological exam: PRESENT: alert Results Laboratory Results: 11/04/18 08:38 11/04/18 08:38 11/04/18 11/04/18 08:38 08:38 WBC 7.3 RBC 2.75 L Hgb 8.1 L Hct 24.6 L MCV 89 MCH 29.5 MCHC 33.0 RDW 16.9 H Plt Count 157 Seg Neutrophils % 61.3 Lymphocytes % 24.5 Monocytes % 8.8 Eosinophils % 4.9 Basophils % 0.5 Absolute Neutrophils 4.5 Absolute Lymphocytes 1.8 Absolute Monocytes 0.6 Absolute Eosinophils 0.4 Absolute Basophils 0.0 Sodium 135.9 L Potassium 5.4 H Chloride 91 L Carbon Dioxide 29 Anion Gap 16 BUN 47 H Creatinine 7.49 H Est GFR ( Amer) 8 L Est GFR (Non-Af Amer) 6 L Glucose 291 H Calcium 7.5 L 11/03/18 11/03/18 11/03/18 08:39 08:39 20:36 Creatine Kinase 75 63 CK-MB (CK-2) 0.65 Troponin I 0.012 11/03/18 20:36 Creatine Kinase CK-MB (CK-2) < 0.22 Troponin I < 0.012 Impressions: Chest X-Ray 11/03/18 05:17 IMPRESSION: Interval worsening of bilateral airspace opacities copyright 2011 [employer]- All Rights Reserved Assessment & Plan - Diagnosis (1) Pneumonia Qualifiers: Pneumonia type: due to unspecified organism Laterality: unspecified laterality Lung location: unspecified part of lung Qualified Code(s): J18.9 - Pneumonia, unspecified organism Is this a current diagnosis for this admission?: Yes (2) End stage chronic kidney disease Is this a current diagnosis for this admission?: Yes
[2018-11-05] MEDS ORDERED: ONDANSETRON HCL INJ/PF 4 MG/2 ML SDV ONE (00:22)
[2018-11-05] MEDS: HEPARIN SOD (PORCINE) 5,000 UNIT/ML 1 ML SYRINGE SUBCUT SCH ×3 (06:08→23:21)
--- NOTE | 2018-11-05 06:48 | RADIOLOGY REPORT (SQ) ---
EXAM DESCRIPTION: XR CHEST 1 VIEW COMPLETED DATE/TME: 11/05/2018 06:00 CLINICAL HISTORY: 33 years, Female, pulmonary edema COMPARISON: 11/03/2018 chest NUMBER OF VIEWS: 1 TECHNIQUE: Portable chest LIMITATIONS: None. FINDINGS: Stable cardiomegaly. Significant improvement in previously noted airspace opacities bilaterally. No pneumothorax. Stable postsurgical change IMPRESSION: Significant improvement in previously noted bilateral airspace opacities copyright 2010 [employer]- All Rights Reserved
[2018-11-05 06:58] LABS: ABSOLUTE BASOPHILS # (AUTO) 0.1 10^3/uL (0.0-0.2); ABSOLUTE EOSINOPHILS # (AUTO) 0.6 10^3/uL (0.0-0.6); ABSOLUTE LYMPHOCYTES (AUTO) 2.5 10^3/uL (0.5-4.7); ABSOLUTE MONOCYTES (AUTO) 0.6 10^3/uL (0.1-1.4); ABSOLUTE NEUT (AUTO) 3.3 10^3/uL (1.7-8.2); BASOPHILS % (AUTO) 1.2 % (0-2); EOSINOPHILS % (AUTO) 8.7 % (0-6); HEMATOCRIT 26.9 % (36.0-47.0); HEMOGLOBIN 8.9 g/dL (12.0-15.5); LYMPHOCYTES % (AUTO) 35.1 % (13-45); MEAN CORPUSCULAR HEMOGLOBIN 29.4 pg (27.0-33.4); MEAN CORPUSCULAR HGB CONC 33.2 g/dL (32.0-36.0); MEAN CORPUSCULAR VOLUME 89 fl (80-97); MONOCYTES % (AUTO) 8.6 % (3-13); PLATELET COUNT 188 10^3/uL (150-450); RED BLOOD COUNT 3.04 10^6/uL (3.72-5.28); RED CELL DISTRIBUTION WIDTH 16.6 % (11.5-14.0); SEGMENTED NEUTROPHILS % (AUTO) 46.4 % (42-78); TOTAL CELLS COUNTED % (AUTO) 100 %
[2018-11-05 07:00] LABS: ANION GAP 14 (5-19); BLOOD UREA NITROGEN 38 mg/dL (7-20); CALCIUM 8.4 mg/dL (8.4-10.2); CARBON DIOXIDE 31 mmol/L (22-30); CHLORIDE 93 mmol/L (98-107); GLUCOSE 229 mg/dL (75-110); SODIUM 138.1 mmol/L (137-145)
[2018-11-05] MEDS: OXYCODONE-ACETAMINOPHEN 5-325 MG TABLET PO PRN ×3 (07:29→21:47)
[2018-11-05] MEDS: OXYCODONE HCL IR 5 MG TABLET PO PRN ×3 (07:29→21:47)
[2018-11-05] MEDS: CEFTRIAXONE SODIUM 1,000 MG in DEXTROSE 5%-WATER 50 ML IV SCH (10:29)
[2018-11-05] MEDS: INSULIN LISPRO 100 UNIT/ML 3 ML VIAL SUBCUT PRN ×2 (10:29→18:16)
--- NOTE | 2018-11-05 13:47 | PDOC PROGRESS REPORT ---
Subjective Progress Note for:: 11/05/18 Subjective:: Patient continue to report productive cough with upper abdominal pain.No fever or chill. There is nausea but no vomiting. She had dialysis session yesterday. Reason For Visit: HYPERKALEMIA, PULMONARY EDEMA, PNEUMONIA, ESRD Physical Exam Vital Signs: Temp Pulse Resp BP Pulse Ox 99.5 F 96 23 H 164/91 H 100 11/04/18 21:51 11/04/18 20:07 11/05/18 06:00 11/05/18 05:58 11/05/18 06:00 Intake & Output 11/04/18 11/05/18 11/06/18 06:59 06:59 06:59 Intake Total 50 100 Output Total 4300 4420 Balance -4250 -4320 Weight 118.2 kg 115.7 kg General appearance: PRESENT: no acute distress, obese Head exam: PRESENT: atraumatic, normocephalic Eye exam: PRESENT: conjunctiva pink, EOMI, PERRLA. ABSENT: scleral icterus Ear exam: PRESENT: normal external ear exam Mouth exam: PRESENT: moist Respiratory exam: PRESENT: clear to auscultation freddy Cardiovascular exam: PRESENT: RRR, +S1, +S2. ABSENT: diastolic murmur, rubs, systolic murmur Vascular exam: ABSENT: pallor GI/Abdominal exam: PRESENT: normal bowel sounds, soft, tenderness - nonspecific to palpation over upper quadrants. ABSENT: distended, guarding, mass, organolmegaly, rebound Extremities exam: ABSENT: pedal edema Neurological exam: PRESENT: alert, awake, oriented to person, oriented to place , oriented to time, oriented to situation, CN II-XII grossly intact. ABSENT: motor sensory deficit Psychiatric exam: PRESENT: appropriate affect, normal mood. ABSENT: homicidal ideation, suicidal ideation Skin exam: PRESENT: dry, intact, warm. ABSENT: cyanosis, rash Results Laboratory Results: 11/05/18 06:37 11/05/18 06:37 11/05/18 11/05/18 06:37 06:37 WBC 7.0 RBC 3.04 L Hgb 8.9 L Hct 26.9 L MCV 89 MCH 29.4 MCHC 33.2 RDW 16.6 H Plt Count 188 Seg Neutrophils % 46.4 Lymphocytes % 35.1 Monocytes % 8.6 Eosinophils % 8.7 H Basophils % 1.2 Absolute Neutrophils 3.3 Absolute Lymphocytes 2.5 Absolute Monocytes 0.6 Absolute Eosinophils 0.6 Absolute Basophils 0.1 Sodium 138.1 Potassium 4.0 D Chloride 93 L Carbon Dioxide 31 H Anion Gap 14 BUN 38 H Creatinine 6.45 H Est GFR ( Amer) 9 L Est GFR (Non-Af Amer) 7 L Glucose 229 H Calcium 8.4 11/03/18 11/03/18 11/03/18 08:39 08:39 20:36 Creatine Kinase 75 63 CK-MB (CK-2) 0.65 Troponin I 0.012 11/03/18 20:36 Creatine Kinase CK-MB (CK-2) < 0.22 Troponin I < 0.012 Impressions: Chest X-Ray 11/05/18 06:00 IMPRESSION: Significant improvement in previously noted bilateral airspace opacities copyright 2011 [employer]- All Rights Reserved Assessment & Plan - Diagnosis (1) Bilateral pneumonia Qualifiers: Pneumonia type: due to unspecified organism Lung location: unspecified part of lung Qualified Code(s): J18.9 - Pneumonia, unspecified organism Is this a current diagnosis for this admission?: Yes Plan: Continue IV Rocephin coverage. Monitor clinical and lab indices for response. Her chest X ray is showing some improvement. (2) ESRD (end stage renal disease) on dialysis Is this a current diagnosis for this admission?: Yes Plan: Maintain on all current medication management and dialysis supplementation. (3) Hypertension Qualifiers: Hypertension type: essential hypertension Qualified Code(s): I10 - Essential (primary) hypertension Is this a current diagnosis for this admission?: Yes Plan: Continue current medication management. - Time Time Spent with patient: 25-34 minutes Medications reviewed and adjusted accordingly: Yes Anticipated discharge: Home Within: Other - Inpatient Certification Based on my medical assessment, after consideration of the patient's comorbidities, presenting symptoms, or acuity I expect that the services needed warrant INPATIENT care.: Yes I certify that my determination is in accordance with my understanding of Medicare's requirements for reasonable and necessary INPATIENT services [42 CFR 412.3e].: Yes Medical Necessity: Need Close Monitoring Due to Risk of Patient Decompensation, Need For Continuous Telemetry Monitoring, Need for IV Antibiotics, Risk of Complication if Not Cared For in Hospital 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
[2018-11-05] MEDS: CLONIDINE HCL 0.1 MG TABLET PO SCH ×2 (14:33→23:19)
[2018-11-05] MEDS: FUROSEMIDE 80 MG TABLET PO SCH ×2 (14:33→23:22)
[2018-11-05] MEDS ORDERED: INSULIN DETEMIR 30 UNIT SQ SCH (18:00)
[2018-11-05] MEDS ORDERED: (PENDING PHARMACY ID) (Oxcarbazepine [Trileptal] 300 MG) PO SCH (18:00)
[2018-11-05] MEDS: ONDANSETRON HCL INJ/PF 4 MG/2 ML SDV IV PRN ×2 (18:12→23:20)
[2018-11-05] MEDS: PROMETHAZINE HCL 25 MG TABLET PO PRN ×2 (21:42→21:47)
[2018-11-05] MEDS ORDERED: PROMETHAZINE HCL 25 MG TABLET ONE (21:43)
[2018-11-05] MEDS ORDERED: (PENDING PHARMACY ID) (Nifedipine [Nifedipine Er] 60 MG) PO SCH (22:00)
[2018-11-05] MEDS ORDERED: BUPRENORPHINE HCL 300 MCG BC SCH (22:00)
[2018-11-05] MEDS: CARVEDILOL 12.5 MG TABLET PO SCH (23:19)
[2018-11-05] MEDS: NIFEDIPINE 30 MG TAB.ER.24 PO SCH (23:19)
[2018-11-05] MEDS: PAROXETINE HCL 20 MG TABLET PO SCH (23:24)
[2018-11-05] MEDS: INSULIN DETEMIR 100 UNIT/ML 3 ML PEN SUBCUT SCH (23:24)
[2018-11-05] MEDS: OXCARBAZEPINE 150 MG TABLET PO SCH (23:25)
[2018-11-06] MEDS ORDERED: PROMETHAZINE HCL INJ 25 MG/1 ML VIAL ONE (00:38)
[2018-11-06] MEDS ORDERED: PROMETHAZINE HCL INJ 25 MG/1 ML VIAL IV ONE (00:45)
[2018-11-06 06:49] LABS: ABSOLUTE EOSINOPHILS # (AUTO) 0.6 10^3/uL (0.0-0.6); ABSOLUTE LYMPHOCYTES (AUTO) 2.3 10^3/uL (0.5-4.7); ABSOLUTE MONOCYTES (AUTO) 0.6 10^3/uL (0.1-1.4); ABSOLUTE NEUT (AUTO) 4.2 10^3/uL (1.7-8.2); BASOPHILS % (AUTO) 0.6 % (0-2); EOSINOPHILS % (AUTO) 7.7 % (0-6); HEMATOCRIT 26.9 % (36.0-47.0); HEMOGLOBIN 8.9 g/dL (12.0-15.5); LYMPHOCYTES % (AUTO) 29.9 % (13-45); MEAN CORPUSCULAR HEMOGLOBIN 29.2 pg (27.0-33.4); MEAN CORPUSCULAR HGB CONC 33.1 g/dL (32.0-36.0); MEAN CORPUSCULAR VOLUME 88 fl (80-97); MONOCYTES % (AUTO) 7.4 % (3-13); PLATELET COUNT 236 10^3/uL (150-450); RED BLOOD COUNT 3.05 10^6/uL (3.72-5.28); RED CELL DISTRIBUTION WIDTH 16.4 % (11.5-14.0); SEGMENTED NEUTROPHILS % (AUTO) 54.4 % (42-78); TOTAL CELLS COUNTED % (AUTO) 100 %; WHITE BLOOD COUNT 7.8 10^3/uL (4.0-10.5)
[2018-11-06] MEDS: CLONIDINE HCL 0.1 MG TABLET PO SCH ×3 (06:54→21:19)
[2018-11-06] MEDS: OXYCODONE-ACETAMINOPHEN 5-325 MG TABLET PO PRN ×3 (06:54→21:18)
[2018-11-06] MEDS: HEPARIN SOD (PORCINE) 5,000 UNIT/ML 1 ML SYRINGE SUBCUT SCH ×3 (06:54→21:17)
[2018-11-06] MEDS: OXYCODONE HCL IR 5 MG TABLET PO PRN ×3 (06:55→21:17)
[2018-11-06 07:03] LABS: ANION GAP 15 (5-19); BLOOD UREA NITROGEN 46 mg/dL (7-20); CALCIUM 8.7 mg/dL (8.4-10.2); CARBON DIOXIDE 32 mmol/L (22-30); CHLORIDE 91 mmol/L (98-107); GLUCOSE 176 mg/dL (75-110); POTASSIUM 4.4 mmol/L (3.6-5.0); SODIUM 138.2 mmol/L (137-145)
[2018-11-06] MEDS: INSULIN LISPRO 100 UNIT/ML 3 ML VIAL SUBCUT PRN ×3 (08:14→16:35)
[2018-11-06] MEDS: CARVEDILOL 12.5 MG TABLET PO SCH ×2 (11:16→21:19)
[2018-11-06] MEDS: CEFTRIAXONE SODIUM 1,000 MG in DEXTROSE 5%-WATER 50 ML IV SCH (11:16)
[2018-11-06] MEDS: OXCARBAZEPINE 150 MG TABLET PO SCH ×2 (11:16→18:57)
[2018-11-06] MEDS: FUROSEMIDE 80 MG TABLET PO SCH ×3 (11:17→18:58)
[2018-11-06] MEDS: NIFEDIPINE 30 MG TAB.ER.24 PO SCH ×2 (11:17→21:18)
[2018-11-06] MEDS: INSULIN DETEMIR 100 UNIT/ML 3 ML PEN SUBCUT SCH ×2 (11:25→18:57)
--- NOTE | 2018-11-06 12:26 | PDOC PROGRESS REPORT ---
Subjective Progress Note for:: 11/06/18 Subjective:: Patient had several episodes of nausea and vomiting since last clinical evaluation necessitating use of IV medication including Zofran and Promethazine. Currently able to tolerate oral feeding. She reported associated RUQ abdominal pain. She is s/p cholecystectomy. No chest pain or difficulty with breathing. No fever or chills. Her blood pressure is comparatively much better. Reason For Visit: HYPERKALEMIA, PULMONARY EDEMA, PNEUMONIA, ESRD Physical Exam Vital Signs: Temp Pulse Resp BP Pulse Ox 97.7 F 79 12 131/68 H 97 11/06/18 08:00 11/06/18 08:00 11/06/18 08:00 11/06/18 08:00 11/06/18 09:00 Intake & Output 11/05/18 11/06/18 11/07/18 06:59 06:59 06:59 Intake Total 100 770 Output Total 4420 1005 Balance -4320 -235 Weight 115.7 kg 115.6 kg 115.6 kg Physical Exam: General appearance: PRESENT: no acute distress, obese Head exam: PRESENT: atraumatic, normocephalic Eye exam: PRESENT: conjunctiva pink, EOMI, PERRLA. ABSENT: pallor, scleral icterus Ear exam: PRESENT: normal external ear exam Mouth exam: PRESENT: moist Respiratory exam: PRESENT: clear to auscultation freddy Cardiovascular exam: PRESENT: RRR, +S1, +S2. ABSENT: diastolic murmur, rubs, systolic murmur GI/Abdominal exam: PRESENT: normal bowel sounds, soft, tenderness - nonspecific to palpation over upper quadrants. ABSENT: distended, guarding, mass, organolmegaly, rebound Extremities exam: ABSENT: pedal edema Neurological exam: PRESENT: alert, awake, oriented to person, oriented to place , oriented to time, oriented to situation, CN II-XII grossly intact. ABSENT: motor sensory deficit Psychiatric exam: PRESENT: appropriate affect, normal mood. ABSENT: homicidal ideation, suicidal ideation Skin exam: PRESENT: dry, intact, warm. ABSENT: cyanosis, rash Results Laboratory Results: 11/06/18 06:04 11/06/18 06:04 11/06/18 11/06/18 06:04 06:04 WBC 7.8 RBC 3.05 L Hgb 8.9 L Hct 26.9 L MCV 88 MCH 29.2 MCHC 33.1 RDW 16.4 H Plt Count 236 Seg Neutrophils % 54.4 Lymphocytes % 29.9 Monocytes % 7.4 Eosinophils % 7.7 H Basophils % 0.6 Absolute Neutrophils 4.2 Absolute Lymphocytes 2.3 Absolute Monocytes 0.6 Absolute Eosinophils 0.6 Absolute Basophils 0.0 Sodium 138.2 Potassium 4.4 Chloride 91 L Carbon Dioxide 32 H Anion Gap 15 BUN 46 H Creatinine 8.28 H Est GFR ( Amer) 7 L Est GFR (Non-Af Amer) 6 L Glucose 176 H Calcium 8.7 11/03/18 11/03/18 11/03/18 08:39 08:39 20:36 Creatine Kinase 75 63 CK-MB (CK-2) 0.65 Troponin I 0.012 11/03/18 20:36 Creatine Kinase CK-MB (CK-2) < 0.22 Troponin I < 0.012 Impressions: Chest X-Ray 11/05/18 06:00 IMPRESSION: Significant improvement in previously noted bilateral airspace opacities copyright 2011 [employer]- All Rights Reserved Assessment & Plan - Diagnosis (1) Bilateral pneumonia Qualifiers: Pneumonia type: due to unspecified organism Lung location: unspecified part of lung Qualified Code(s): J18.9 - Pneumonia, unspecified organism Is this a current diagnosis for this admission?: Yes Plan: Maintain on IV Rocephin coverage. Monitor clinical and lab indices for response. (2) ESRD (end stage renal disease) on dialysis Is this a current diagnosis for this admission?: Yes Plan: Maintain on all current medication management. She will be due for hemodialysis session tomorrow. (3) Hypertension Qualifiers: Hypertension type: essential hypertension Qualified Code(s): I10 - Essential (primary) hypertension Is this a current diagnosis for this admission?: Yes Plan: Fairly controlled on continue current medication management. (4) Vomiting with nausea, not intractable Qualifiers: Vomiting type: unspecified Qualified Code(s): R11.2 - Nausea with vomiting , unspecified Is this a current diagnosis for this admission?: Yes Plan: Continue current medication management. - Time Time Spent with patient: 25-34 minutes Medications reviewed and adjusted accordingly: Yes Anticipated discharge: Home Within: Other - Inpatient Certification Based on my medical assessment, after consideration of the patient's comorbidities, presenting symptoms, or acuity I expect that the services needed warrant INPATIENT care.: Yes I certify that my determination is in accordance with my understanding of Medicare's requirements for reasonable and necessary INPATIENT services [42 CFR 412.3e].: Yes Medical Necessity: Need Close Monitoring Due to Risk of Patient Decompensation, Need For Continuous Telemetry Monitoring, Need for IV Antibiotics, Risk of Complication if Not Cared For in Hospital Post 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
[2018-11-06] MEDS: PROMETHAZINE HCL 25 MG TABLET PO PRN (15:17)
[2018-11-06] MEDS: PAROXETINE HCL 20 MG TABLET PO SCH (18:57)
[2018-11-06] MEDS: ONDANSETRON HCL INJ/PF 4 MG/2 ML SDV IV PRN (21:17)
[2018-11-07] MEDS: ONDANSETRON HCL INJ/PF 4 MG/2 ML SDV IV PRN (03:21)
[2018-11-07] MEDS ORDERED: EPOETIN ALFA INJ 20000 UNIT/1 ML VIAL (RENAL) IV PRN (07:17)
[2018-11-07] MEDS: HEPARIN SOD (PORCINE) 5,000 UNIT/ML 1 ML SYRINGE SUBCUT SCH ×3 (08:53→21:26)
[2018-11-07] MEDS: CLONIDINE HCL 0.1 MG TABLET PO SCH ×3 (08:53→21:24)
--- NOTE | 2018-11-07 12:17 | PDOC PROGRESS REPORT ---
Subjective Progress Note for:: 11/07/18 Reason For Visit: Patient seen today while undergoing dialysis. She is being moved from the ICU to regular floor. Breathing is a whole lot better. No complaints of any fever or chills. Intermittent nausea and vomiting. Labs and medications were reviewed with the patient and the treating dialysis nurse. Physical Exam Vital Signs: Temp Pulse Resp BP Pulse Ox 98.5 F 81 16 146/72 H 98 11/06/18 22:00 11/06/18 22:00 11/06/18 22:00 11/06/18 22:00 11/06/18 22:00 Intake & Output 11/06/18 11/07/18 11/08/18 06:59 06:59 06:59 Intake Total 770 450 Output Total 1005 0 Balance -235 450 Weight 115.6 kg 116.6 kg General appearance: PRESENT: no acute distress, disheveled Respiratory exam: PRESENT: clear to auscultation freddy. ABSENT: crackles, rhonchi , wheezes Cardiovascular exam: PRESENT: +S1, +S2, systolic murmur GI/Abdominal exam: PRESENT: normal bowel sounds, soft. ABSENT: organomegaly, tenderness Extremities exam: PRESENT: pedal edema Neurological exam: PRESENT: alert, awake, oriented to person, oriented to place Psychiatric exam: PRESENT: anxious Skin exam: ABSENT: cyanosis, erythema, rash Results Laboratory Results: 11/06/18 06:04 11/06/18 06:04 11/03/18 11/03/18 11/03/18 08:39 08:39 20:36 Creatine Kinase 75 63 CK-MB (CK-2) 0.65 Troponin I 0.012 11/03/18 20:36 Creatine Kinase CK-MB (CK-2) < 0.22 Troponin I < 0.012 Impressions: Chest X-Ray 11/05/18 06:00 IMPRESSION: Significant improvement in previously noted bilateral airspace opacities copyright 2011 [employer]- All Rights Reserved Assessment & Plan - Diagnosis (1) Bilateral pneumonia Qualifiers: Pneumonia type: due to unspecified organism Lung location: unspecified part of lung Qualified Code(s): J18.9 - Pneumonia, unspecified organism Is this a current diagnosis for this admission?: Yes Plan: Clinically improving. Continue current antibiotics. (2) Diabetes mellitus type 1 Qualifiers: Diabetes mellitus complication status: with unspecified complications Qualified Code(s): E10.8 - Type 1 diabetes mellitus with unspecified complications Is this a current diagnosis for this admission?: Yes Plan: Advised on tight diabetic control. (3) Hyperkalemia Is this a current diagnosis for this admission?: Yes Plan: Currently stable. (4) ESRD (end stage renal disease) on dialysis Is this a current diagnosis for this admission?: Yes Plan: Patient currently undergoing dialysis without any issues. Vital signs are stable. Is being supervised to ensure safe and smooth procedure. Plan to remove approximately 5 L as tolerated. Dialysis orders were reviewed with the treating dialysis nurse. Adjust erythropoietin. (5) Anemia in chronic kidney disease (CKD) Is this a current diagnosis for this admission?: Yes Plan: Adjust erythropoietin. Monitor. (6) Nausea and vomiting Qualifiers: Vomiting type: unspecified Vomiting Intractability: non-intractable Qualified Code(s): R11.2 - Nausea with vomiting, unspecified Plan: As per Dr. Singleton.
[2018-11-07] MEDS: FUROSEMIDE 80 MG TABLET PO SCH ×3 (14:07→18:29)
[2018-11-07] MEDS ORDERED: CARVEDILOL 12.5 MG TABLET PO ONE (14:30)
[2018-11-07] MEDS: CEFTRIAXONE SODIUM 1,000 MG in DEXTROSE 5%-WATER 50 ML IV SCH (14:34)
[2018-11-07] MEDS: NIFEDIPINE 30 MG TAB.ER.24 PO SCH ×2 (14:41→21:24)
[2018-11-07] MEDS: OXCARBAZEPINE 150 MG TABLET PO SCH ×2 (14:42→18:29)
[2018-11-07] MEDS: CARVEDILOL 12.5 MG TABLET PO SCH ×2 (14:42→21:24)
[2018-11-07] MEDS: INSULIN DETEMIR 100 UNIT/ML 3 ML PEN SUBCUT SCH ×2 (15:07→16:59)
[2018-11-07] MEDS: INSULIN LISPRO 100 UNIT/ML 3 ML VIAL SUBCUT PRN ×2 (16:59→21:54)
[2018-11-07] MEDS: PAROXETINE HCL 20 MG TABLET PO SCH (17:00)
--- NOTE | 2018-11-07 20:09 | RADIOLOGY REPORT (SQ) ---
EXAM DESCRIPTION: CHEST SINGLE VIEW COMPLETED DATE/TIME: 11/07/2018 7:58 pm REASON FOR STUDY: shortness of breath on exertion COMPARISON: 11/05/2018 and 11/03/2018. NUMBER OF VIEWS: One view. TECHNIQUE: Single frontal radiographic view of the chest acquired. LIMITATIONS: None. FINDINGS: LUNGS AND PLEURA: Interval improved aeration. Mild atelectasis in the left perihilar lung . No large pleural effusion. MEDIASTINUM AND HILAR STRUCTURES: No masses or contour abnormality. HEART AND VASCULATURE: Cardiac enlargement. Vascular congestion. BONES: No acute findings. HARDWARE: None in the chest. OTHER: No other significant finding. IMPRESSION: GENERALLY IMPROVED AERATION. MILD ATELECTASIS IN THE LEFT LUNG. TECHNICAL DOCUMENTATION: JOB ID: [id number] [employer]- All Rights Reserved Reading location - IP/workstation name: [email or web address]
[2018-11-07] MEDS: PROMETHAZINE HCL 25 MG TABLET PO PRN (21:30)
[2018-11-07] MEDS: OXYCODONE-ACETAMINOPHEN 5-325 MG TABLET PO PRN (21:30)
--- NOTE | 2018-11-07 21:31 | PDOC PROGRESS REPORT ---
Subjective Progress Note for:: 11/07/18 Subjective:: Patient stated that she is still short of breath ,on auscultation of the chest it was clear ,the chest x-ray was also cleared Reason For Visit: HYPERKALEMIA, PULMONARY EDEMA, PNEUMONIA, ESRD Physical Exam Vital Signs: Temp Pulse Resp BP Pulse Ox 99.0 F 81 17 127/59 H 89 L 11/07/18 19:26 11/07/18 19:26 11/07/18 19:26 11/07/18 19:26 11/07/18 19:26 Intake & Output 11/06/18 11/07/18 11/08/18 06:59 06:59 06:59 Intake Total 770 450 366 Output Total 1005 0 5000 Balance -235 450 -4634 Weight 115.6 kg 116.6 kg General appearance: PRESENT: no acute distress Eye exam: PRESENT: PERRLA Respiratory exam: PRESENT: clear to auscultation freddy Cardiovascular exam: PRESENT: +S1, +S2 GI/Abdominal exam: PRESENT: soft Neurological exam: PRESENT: alert Results Laboratory Results: 11/06/18 06:04 11/06/18 06:04 11/03/18 11/03/18 11/03/18 08:39 08:39 20:36 Creatine Kinase 75 63 CK-MB (CK-2) 0.65 Troponin I 0.012 11/03/18 20:36 Creatine Kinase CK-MB (CK-2) < 0.22 Troponin I < 0.012 Impressions: Chest X-Ray 11/07/18 00:00 IMPRESSION: GENERALLY IMPROVED AERATION. MILD ATELECTASIS IN THE LEFT LUNG. Assessment & Plan - Diagnosis (1) Pneumonia Qualifiers: Pneumonia type: due to unspecified organism Laterality: unspecified laterality Lung location: unspecified part of lung Qualified Code(s): J18.9 - Pneumonia, unspecified organism Is this a current diagnosis for this admission?: Yes (2) End stage chronic kidney disease Is this a current diagnosis for this admission?: Yes
[2018-11-08] MEDS: HEPARIN SOD (PORCINE) 5,000 UNIT/ML 1 ML SYRINGE SUBCUT SCH ×3 (05:03→21:10)
[2018-11-08] MEDS: ONDANSETRON HCL INJ/PF 4 MG/2 ML SDV IV PRN ×2 (05:06→20:35)
[2018-11-08] MEDS: CLONIDINE HCL 0.1 MG TABLET PO SCH ×3 (05:07→21:13)
[2018-11-08] MEDS: PROMETHAZINE HCL 25 MG TABLET PO PRN (07:56)
[2018-11-08] MEDS: OXYCODONE-ACETAMINOPHEN 5-325 MG TABLET PO PRN ×2 (07:58→18:12)
[2018-11-08 08:15] LABS: HEMATOCRIT 28.3 % (36.0-47.0); HEMOGLOBIN 9.1 g/dL (12.0-15.5); MEAN CORPUSCULAR HEMOGLOBIN 28.8 pg (27.0-33.4); MEAN CORPUSCULAR HGB CONC 32.3 g/dL (32.0-36.0); MEAN CORPUSCULAR VOLUME 89 fl (80-97); PLATELET COUNT 251 10^3/uL (150-450); RED BLOOD COUNT 3.17 10^6/uL (3.72-5.28); RED CELL DISTRIBUTION WIDTH 16.5 % (11.5-14.0); WHITE BLOOD COUNT 5.3 10^3/uL (4.0-10.5)
[2018-11-08 08:34] LABS: ANION GAP 15 (5-19); BLOOD UREA NITROGEN 31 mg/dL (7-20); CALCIUM 8.3 mg/dL (8.4-10.2); CARBON DIOXIDE 29 mmol/L (22-30); CHLORIDE 93 mmol/L (98-107); GLUCOSE 167 mg/dL (75-110); POTASSIUM 4.8 mmol/L (3.6-5.0); SODIUM 137.3 mmol/L (137-145)
[2018-11-08] MEDS: INSULIN LISPRO 100 UNIT/ML 3 ML VIAL SUBCUT PRN ×4 (09:08→22:40)
[2018-11-08] MEDS: INSULIN DETEMIR 100 UNIT/ML 3 ML PEN SUBCUT SCH ×2 (09:11→18:09)
[2018-11-08] MEDS: CARVEDILOL 12.5 MG TABLET PO SCH ×2 (09:12→21:13)
[2018-11-08] MEDS: FUROSEMIDE 80 MG TABLET PO SCH ×3 (09:12→18:10)
[2018-11-08] MEDS: CEFTRIAXONE SODIUM 1,000 MG in DEXTROSE 5%-WATER 50 ML IV SCH (09:12)
[2018-11-08] MEDS: OXCARBAZEPINE 150 MG TABLET PO SCH ×2 (09:13→18:09)
[2018-11-08] MEDS: NIFEDIPINE 30 MG TAB.ER.24 PO SCH ×2 (09:13→21:13)
[2018-11-08] MEDS: PAROXETINE HCL 20 MG TABLET PO SCH (18:10)
--- NOTE | 2018-11-08 21:43 | PDOC PROGRESS REPORT ---
Subjective Progress Note for:: 11/08/18 Subjective:: Patient seen at the bedside, She continues to require oxygen Reason For Visit: HYPERKALEMIA, PULMONARY EDEMA, PNEUMONIA, ESRD Physical Exam Vital Signs: Temp Pulse Resp BP Pulse Ox 97.8 F 77 16 125/66 98 11/08/18 08:12 11/08/18 08:12 11/08/18 08:12 11/08/18 08:12 11/08/18 08:12 Intake & Output 11/07/18 11/08/18 11/09/18 06:59 06:59 06:59 Intake Total 450 772 641 Output Total 0 5000 Balance 450 -7586 641 Weight 116.6 kg 112.8 kg General appearance: PRESENT: no acute distress Eye exam: PRESENT: PERRLA Respiratory exam: PRESENT: clear to auscultation freddy Cardiovascular exam: PRESENT: +S1, +S2 Neurological exam: PRESENT: alert Results Laboratory Results: 11/08/18 06:53 11/08/18 06:53 11/08/18 11/08/18 06:53 06:53 WBC 5.3 RBC 3.17 L Hgb 9.1 L Hct 28.3 L MCV 89 MCH 28.8 MCHC 32.3 RDW 16.5 H Plt Count 251 Sodium 137.3 Potassium 4.8 Chloride 93 L Carbon Dioxide 29 Anion Gap 15 BUN 31 H Creatinine 6.69 H Est GFR ( Amer) 9 L Est GFR (Non-Af Amer) 7 L Glucose 167 H Calcium 8.3 L 11/03/18 08:39 Blood Blood Culture - Final NO GROWTH IN 5 DAYS 11/03/18 11/03/18 11/03/18 08:39 08:39 20:36 Creatine Kinase 75 63 CK-MB (CK-2) 0.65 Troponin I 0.012 11/03/18 20:36 Creatine Kinase CK-MB (CK-2) < 0.22 Troponin I < 0.012 Impressions: Chest X-Ray 11/07/18 00:00 IMPRESSION: GENERALLY IMPROVED AERATION. MILD ATELECTASIS IN THE LEFT LUNG. Assessment & Plan - Diagnosis (1) Pneumonia Qualifiers: Pneumonia type: due to unspecified organism Laterality: unspecified laterality Lung location: unspecified part of lung Qualified Code(s): J18.9 - Pneumonia, unspecified organism Is this a current diagnosis for this admission?: Yes (2) End stage chronic kidney disease Is this a current diagnosis for this admission?: Yes - Plan Summary Plan Summary: Continue treatment
[2018-11-09] MEDS ORDERED: EPOETIN ALFA INJ 20000 UNIT/1 ML VIAL (RENAL) IV PRN (05:00)
[2018-11-09] MEDS: HEPARIN SOD (PORCINE) 5,000 UNIT/ML 1 ML SYRINGE SUBCUT SCH ×3 (06:51→23:46)
[2018-11-09] MEDS: CLONIDINE HCL 0.1 MG TABLET PO SCH ×4 (06:51→23:43)
[2018-11-09 07:07] LABS: ANION GAP 15 (5-19); BLOOD UREA NITROGEN 49 mg/dL (7-20); CALCIUM 8.2 mg/dL (8.4-10.2); CARBON DIOXIDE 31 mmol/L (22-30); CHLORIDE 92 mmol/L (98-107); GLUCOSE 123 mg/dL (75-110); POTASSIUM 4.6 mmol/L (3.6-5.0); SODIUM 137.7 mmol/L (137-145)
[2018-11-09] MEDS: FUROSEMIDE 80 MG TABLET PO SCH ×3 (13:40→17:25)
[2018-11-09] MEDS: CARVEDILOL 12.5 MG TABLET PO SCH ×2 (13:40→23:43)
[2018-11-09] MEDS: NIFEDIPINE 30 MG TAB.ER.24 PO SCH ×2 (13:41→23:40)
[2018-11-09] MEDS: INSULIN DETEMIR 100 UNIT/ML 3 ML PEN SUBCUT SCH ×2 (13:41→17:24)
[2018-11-09] MEDS: OXCARBAZEPINE 150 MG TABLET PO SCH ×2 (13:42→17:23)
[2018-11-09] MEDS: CEFTRIAXONE SODIUM 1,000 MG in DEXTROSE 5%-WATER 50 ML IV SCH (13:43)
[2018-11-09] MEDS: INSULIN LISPRO 100 UNIT/ML 3 ML VIAL SUBCUT PRN (17:23)
[2018-11-09] MEDS: PAROXETINE HCL 20 MG TABLET PO SCH (17:24)
--- NOTE | 2018-11-09 17:30 | PDOC PROGRESS REPORT ---
Subjective Progress Note for:: 11/09/18 Reason For Visit: Patient seen on dialysis today. She is undergoing dialysis without any issues. She denies any history of shortness of breath, fever or chills. She admits to still having some pain in her right anterior chest and shoulders when she moves her self. Labs and medications were reviewed with the patient. Physical Exam Vital Signs: Temp Pulse Resp BP Pulse Ox 98.4 F 75 16 139/68 H 95 11/09/18 15:37 11/09/18 15:37 11/09/18 15:37 11/09/18 15:37 11/09/18 15:37 Intake & Output 11/08/18 11/09/18 11/10/18 06:59 06:59 06:59 Intake Total 772 1516 Output Total 5000 0 4400 Balance -4228 1516 -4400 Weight 112.8 kg 115.8 kg General appearance: PRESENT: no acute distress Respiratory exam: PRESENT: clear to auscultation freddy, decreased breath sounds. ABSENT: crackles Cardiovascular exam: PRESENT: +S1, +S2, systolic murmur GI/Abdominal exam: PRESENT: normal bowel sounds, soft. ABSENT: organomegaly, tenderness Neurological exam: PRESENT: alert, awake, oriented to person, oriented to place Skin exam: ABSENT: cyanosis, erythema, rash Results Laboratory Results: 11/08/18 06:53 11/09/18 05:18 11/09/18 05:18 Sodium 137.7 Potassium 4.6 Chloride 92 L Carbon Dioxide 31 H Anion Gap 15 BUN 49 H Creatinine 8.70 H Est GFR ( Amer) 6 L Est GFR (Non-Af Amer) 5 L Glucose 123 H Calcium 8.2 L 11/03/18 11/03/18 11/03/18 05:28 05:28 08:39 Creatine Kinase 84 75 CK-MB (CK-2) 0.64 Troponin I 0.024 11/03/18 11/03/18 11/03/18 08:39 20:36 20:36 Creatine Kinase 63 CK-MB (CK-2) 0.65 < 0.22 Troponin I 0.012 < 0.012 Impressions: Chest X-Ray 11/07/18 00:00 IMPRESSION: GENERALLY IMPROVED AERATION. MILD ATELECTASIS IN THE LEFT LUNG. Assessment & Plan - Diagnosis (1) Bilateral pneumonia Qualifiers: Pneumonia type: due to unspecified organism Lung location: unspecified part of lung Qualified Code(s): J18.9 - Pneumonia, unspecified organism Is this a current diagnosis for this admission?: Yes Plan: Clinically improving. Continue current antibiotics. (2) Diabetes mellitus type 1 Qualifiers: Diabetes mellitus complication status: with unspecified complications Qualified Code(s): E10.8 - Type 1 diabetes mellitus with unspecified complications Is this a current diagnosis for this admission?: Yes Plan: Advised on tight diabetic control. (3) Hyperkalemia Is this a current diagnosis for this admission?: Yes (4) ESRD (end stage renal disease) on dialysis Is this a current diagnosis for this admission?: Yes Plan: Patient currently undergoing dialysis without any issues. Vital signs are st able. Is being supervised to ensure safe and smooth procedure. Plan to remove approximately 5 L as tolerated. Dialysis orders were reviewed with the treating dialysis nurse. Adjust erythropoietin. (5) Anemia in chronic kidney disease (CKD) Is this a current diagnosis for this admission?: Yes Plan: Adjust erythropoietin. Monitor. (6) Nausea and vomiting Qualifiers: Vomiting type: unspecified Vomiting Intractability: non-intractable Quali fied Code(s): R11.2 - Nausea with vomiting, unspecified
[2018-11-09] MEDS ORDERED: LEVALBUTEROL HCL NEB 1.25 MG/3 ML AMPUL NEB PRN (19:19)
--- NOTE | 2018-11-09 19:25 | PDOC PROGRESS REPORT ---
Subjective Progress Note for:: 11/09/18 Subjective:: She has persistent hypoxemia but cannot be explained on the basis of pneumonia or pulmonary edema. VQ scan will be ordered to evaluate for possible chronic thromboembolism pulmonary hypertension, we also request PFT for full lung function test, 2D echo to measure pulmonary pressure Reason For Visit: HYPERKALEMIA, PULMONARY EDEMA, PNEUMONIA, ESRD Physical Exam Vital Signs: Temp Pulse Resp BP Pulse Ox 98.4 F 75 16 135/65 H 95 11/09/18 17:48 11/09/18 17:48 11/09/18 17:48 11/09/18 17:48 11/09/18 17:48 Intake & Output 11/08/18 11/09/18 11/10/18 06:59 06:59 06:59 Intake Total 772 1516 550 Output Total 5000 0 4400 Balance -4228 1516 -3850 Weight 112.8 kg 115.8 kg General appearance: PRESENT: no acute distress Eye exam: PRESENT: PERRLA Respiratory exam: PRESENT: clear to auscultation freddy Cardiovascular exam: PRESENT: +S1, +S2 GI/Abdominal exam: PRESENT: soft Neurological exam: PRESENT: alert Results Laboratory Results: 11/08/18 06:53 11/09/18 05:18 11/09/18 05:18 Sodium 137.7 Potassium 4.6 Chloride 92 L Carbon Dioxide 31 H Anion Gap 15 BUN 49 H Creatinine 8.70 H Est GFR ( Amer) 6 L Est GFR (Non-Af Amer) 5 L Glucose 123 H Calcium 8.2 L 11/03/18 11/03/18 11/03/18 05:28 05:28 08:39 Creatine Kinase 84 75 CK-MB (CK-2) 0.64 Troponin I 0.024 11/03/18 11/03/18 11/03/18 08:39 20:36 20:36 Creatine Kinase 63 CK-MB (CK-2) 0.65 < 0.22 Troponin I 0.012 < 0.012 Impressions: Chest X-Ray 11/07/18 00:00 IMPRESSION: GENERALLY IMPROVED AERATION. MILD ATELECTASIS IN THE LEFT LUNG. Assessment & Plan - Diagnosis (1) Pneumonia Qualifiers: Pneumonia type: due to unspecified organism Laterality: unspecified laterality Lung location: unspecified part of lung Qualified Code(s): J18.9 - Pneumonia, unspecified organism Is this a current diagnosis for this admission?: Yes (2) End stage chronic kidney disease Is this a current diagnosis for this admission?: Yes (3) Hypoxemia Is this a current diagnosis for this admission?: Yes Plan: obtain V/Q scan ,full PFT ,2D ECHO to measure pulmonary HTN
[2018-11-10] MEDS: CLONIDINE HCL 0.1 MG TABLET PO SCH ×3 (06:27→23:21)
[2018-11-10 06:42] LABS: ANION GAP 12 (5-19); BLOOD UREA NITROGEN 37 mg/dL (7-20); CALCIUM 8.8 mg/dL (8.4-10.2); CARBON DIOXIDE 33 mmol/L (22-30); CHLORIDE 94 mmol/L (98-107); GLUCOSE 108 mg/dL (75-110); POTASSIUM 4.5 mmol/L (3.6-5.0); SODIUM 138.9 mmol/L (137-145)
[2018-11-10] MEDS: CARVEDILOL 12.5 MG TABLET PO SCH ×2 (11:34→23:22)
[2018-11-10] MEDS: HEPARIN SOD (PORCINE) 5,000 UNIT/ML 1 ML SYRINGE SUBCUT SCH ×3 (11:34→23:22)
[2018-11-10] MEDS: NIFEDIPINE 30 MG TAB.ER.24 PO SCH ×2 (11:35→23:21)
[2018-11-10] MEDS: FUROSEMIDE 80 MG TABLET PO SCH ×3 (11:36→17:26)
[2018-11-10] MEDS: INSULIN DETEMIR 100 UNIT/ML 3 ML PEN SUBCUT SCH ×2 (11:41→17:27)
[2018-11-10] MEDS: OXCARBAZEPINE 150 MG TABLET PO SCH ×2 (13:11→17:26)
[2018-11-10] MEDS: PROMETHAZINE HCL 25 MG TABLET PO PRN (14:02)
--- NOTE | 2018-11-10 14:25 | RADIOLOGY REPORT (SQ) ---
EXAM DESCRIPTION: CHEST 2 VIEWS COMPLETED DATE/TIME: 11/10/2018 2:16 pm REASON FOR STUDY: hypoxemia COMPARISON: 11/07/2018. NUMBER OF VIEWS: Two views. TECHNIQUE: Frontal and lateral radiographic views of the chest acquired. LIMITATIONS: None. FINDINGS: LUNGS AND PLEURA: No opacities, masses or pneumothorax. No pleural effusion. MEDIASTINUM AND HILAR STRUCTURES: No masses or contour abnormality. HEART AND VASCULAR STRUCTURES: Cardiac enlargement. Vascular congestion. BONES: No acute findings. HARDWARE: Right subclavian and axillary stent. OTHER: No other significant finding. IMPRESSION: CARDIAC ENLARGEMENT. VASCULAR CONGESTION. NO SIGNIFICANT INTERVAL CHANGE. TECHNICAL DOCUMENTATION: JOB ID: [id number] [employer]- All Rights Reserved Reading location - IP/workstation name: [email or web address]
--- NOTE | 2018-11-10 15:36 | RADIOLOGY REPORT (SQ) ---
EXAM DESCRIPTION: NM LUNG VENT/PERF SCAN COMPLETED DATE/TIME: 11/10/2018 3:04 pm REASON FOR STUDY: persistent hypoxemia COMPARISON: 03/29/2016. RADIONUCLIDE AND DOSE: 5.09 millicuries TC-99m MAA Intravenous 32.3 millicuries TC-99m DTPA Inhaled aerosol TECHNIQUE: Eight views of the lungs acquired post ventilation of DTPA aerosol. Eight matching views of the lungs acquired following injection of MAA. LIMITATIONS: None. FINDINGS: VENTILATION: Symmetric and homogeneous distribution of DTPA aerosol during ventilatory pha se. No significant areas of photopenia. PERFUSION: Perfusion images with normal homogenous activity and no wedge-shaped or segmental defects. No ventilation-perfusion mismatches. OTHER: No other significant finding. IMPRESSION: NORMAL VENTILATION-PERFUSION LUNG SCAN. NEGATIVE FOR PULMONARY EMBOLI. TECHNICAL DOCUMENTATION: JOB ID: [id number] [email or web address]- All Rights Reserved Reading location - IP/workstation name: [email or web address]
[2018-11-10] MEDS: PAROXETINE HCL 20 MG TABLET PO SCH (17:26)
[2018-11-10] MEDS: INSULIN LISPRO 100 UNIT/ML 3 ML VIAL SUBCUT PRN (17:28)
--- NOTE | 2018-11-10 21:21 | PDOC PROGRESS REPORT ---
Subjective Progress Note for:: 11/10/18 Subjective:: She has unexplained hypoxemia, the VQ scan was negative for pulmonary emboli which virtually rule out chronic thromboembolism and also acute thrombo embolism the chest x-ray is negative to suggest pneumonia, a full PFT was yet to be done, 2D echo was done patient will need home oxygen on discharge but the challenge is to find out the etiology of the hypoxemia. Reason For Visit: HYPERKALEMIA, PULMONARY EDEMA, PNEUMONIA, ESRD Physical Exam Vital Signs: Temp Pulse Resp BP Pulse Ox 98.0 F 73 16 138/59 H 100 11/10/18 16:19 11/10/18 16:19 11/10/18 16:19 11/10/18 16:19 11/10/18 16:19 Intake & Output 11/09/18 11/10/18 11/11/18 06:59 06:59 06:59 Intake Total 1516 550 236 Output Total 0 4400 Balance 1516 -3850 236 Weight 115.8 kg 114.9 kg General appearance: PRESENT: no acute distress Eye exam: PRESENT: PERRLA Respiratory exam: PRESENT: clear to auscultation freddy Cardiovascular exam: PRESENT: +S1, +S2 GI/Abdominal exam: PRESENT: soft Neurological exam: PRESENT: alert Results Laboratory Results: 11/08/18 06:53 11/10/18 06:11 11/10/18 06:11 Sodium 138.9 Potassium 4.5 Chloride 94 L Carbon Dioxide 33 H Anion Gap 12 BUN 37 H Creatinine 6.45 H Est GFR ( Amer) 9 L Est GFR (Non-Af Amer) 7 L Glucose 108 Calcium 8.8 11/03/18 11/03/18 11/03/18 05:28 05:28 08:39 Creatine Kinase 84 75 CK-MB (CK-2) 0.64 Troponin I 0.024 11/03/18 11/03/18 11/03/18 08:39 20:36 20:36 Creatine Kinase 63 CK-MB (CK-2) 0.65 < 0.22 Troponin I 0.012 < 0.012 Impressions: Lung Scan-VQ NM 11/09/18 00:00 IMPRESSION: NORMAL VENTILATION-PERFUSION LUNG SCAN. NEGATIVE FOR PULMONARY EMBOLI. Chest X-Ray 11/10/18 00:00 IMPRESSION: CARDIAC ENLARGEMENT. VASCULAR CONGESTION. NO SIGNIFICANT INTERVAL CHANGE. Assessment & Plan - Diagnosis (1) Pneumonia Qualifiers: Pneumonia type: due to unspecified organism Laterality: unspecified laterality Lung location: unspecified part of lung Qualified Code(s): J18.9 - Pneumonia, unspecified organism Is this a current diagnosis for this admission?: Yes (2) End stage chronic kidney disease Is this a current diagnosis for this admission?: Yes (3) Hypoxemia Is this a current diagnosis for this admission?: Yes
--- NOTE | 2018-11-10 22:07 | XCELERA REPORT ---
[address] [address] Transthoracic Echocardiogram Report Name: ERICH GOODMAN Age: 33 yrs Gender: Female : 1985 Patient Status: Inpatient Patient Location: [address] [place], [place] [id number] Study Date: 11/10/2018 10:34 AM Height: 67 in Weight: 255 lb BSA: 2.2 m2 Procedure: A two-dimensional transthoracic echocardiogram with color flow and Doppler was performed. Study Quality: Fair. Reason For Study: htn ,measure pulmonary pressure History: PULMONARY HYPERTENSION. Ordering Physician: HILARY HERNANDEZ Performed By: Jenny Weinstein Interpretation Summary PULMONARY HYPERTENSION The left ventricle is normal in size. There is mild concentric left ventricular hypertrophy. LV EF is 60% Left ventricular systolic function is normal. Doppler measurements suggest normal left ventricular diastolic function The left ventricular wall motion is normal. There is no thrombus. The right ventricle is normal in size and function. The right atrium is normal. The left atrium is mildly dilated. The interatrial septum is intact with no evidence for an atrial septal defect. There is no Doppler evidence for an interatrial shunt Calcified posterior mitral valve leaflet. There is no evidence of mitral valve prolapse. There is no vegetation seen on the mitral valve. There is no mitral valve stenosis. There is a trace amount of mitral regurgitation There is no aortic valvular vegetation. There is mild aortic stenosis There is no LVOT obstruction. No hemodynamically significant valvular aortic stenosis. No aortic regurgitation is present. There is no tricuspid stenosis. There is mild pulmonary hypertension by echo There is a trace amount of tricuspid regurgitation RVSP is 43 to 48 mm of Hg , with RA mean of 5 to 10. There is no pulmonic valvular stenosis. There is a trace amount of pulmonic regurgitation The aortic root is normal size. The inferior vena cava appeared normal and decreased > 50% with respiration (RAP 5-10 mmHg) There is no pericardial effusion. MMode/2D Measurements & Calculations RVDd: 2.7 cm LVIDd: 4.2 cm FS: 27.8 % Ao root diam: 2.7 cm IVSd: 1.2 cm LVIDs: 3.1 cm EDV(Teich): 80.2 ml Ao root area: 5.6 cm2 LVPWd: 1.3 cm ESV(Teich): 36.8 ml LA dimension: 4.3 cm EF(Teich): 54.2 % Doppler Measurements & Calculations MV E max niranjan: MV P1/2t max niranjan: Ao V2 max: LV V1 max P.6 cm/sec 150.1 cm/sec 197.8 cm/sec 7.2 mmHg MV A max niranjan: MV P1/2t: 55.2 msec Ao max PG: LV V1 max: 99.2 cm/sec MVA(P1/2t): 4.0 cm2 15.6 mmHg 134.3 cm/sec MV E/A: 1.5 MV dec slope: 796.1 cm/sec2 MV dec time: 0.18 sec PA V2 max: TR max niranjan: MV P1/2t-pr_phl: 123.4 cm/sec 306.4 cm/sec 55.2 msec PA max P.1 mmHgTR max P.6 mmHg Left Ventricle The left ventricle is normal in size. There is mild concentric left ventricular hypertrophy. LV EF is 60%. Left ventricular systolic function is normal. Doppler measurements suggest normal left ventricular diastolic function. The left ventricular wall motion is normal. There is no thrombus. There is no ventricular septal defect visualized. Right Ventricle The right ventricle is normal in size and function. Atria The right atrium is normal. The left atrium is mildly dilated. The interatrial septum is intact with no evidence for an atrial septal defect. There is no Doppler evidence for an interatrial shunt. Mitral Valve Calcified posterior mitral valve leaflet. There is no evidence of mitral valve prolapse. There is no vegetation seen on the mitral valve. There is no mitral valve stenosis. There is a trace amount of mitral regurgitation. Aortic Valve There is no aortic valvular vegetation. There is mild aortic stenosis. There is no LVOT obstruction. No hemodynamically significant valvular aortic stenosis. No aortic regurgitation is present. Tricuspid Valve There is no tricuspid stenosis. There is mild pulmonary hypertension by echo. There is a trace amount of tricuspid regurgitation. RVSP is 43 to 48 mm of Hg , with RA mean of 5 to 10. Pulmonic Valve There is no pulmonic valvular stenosis. There is a trace amount of pulmonic regurgitation. Great Vessels The aortic root is normal size. The inferior vena cava appeared normal and decreased > 50% with respiration (RAP 5-10 mmHg). Effusions There is no pericardial effusion. : HILARY HERNANDEZ > Beatriz Leyva
[2018-11-10] MEDS ORDERED: BISACODYL 5 MG TABEC PO ONE (22:30)
[2018-11-11] MEDS ORDERED: EPOETIN ALFA INJ 20000 UNIT/1 ML VIAL (RENAL) IV PRN (00:04)
[2018-11-11 05:09] LABS: HEMATOCRIT 27.2 % (36.0-47.0); MEAN CORPUSCULAR HEMOGLOBIN 29.1 pg (27.0-33.4); MEAN CORPUSCULAR VOLUME 88 fl (80-97); PLATELET COUNT 334 10^3/uL (150-450); RED BLOOD COUNT 3.08 10^6/uL (3.72-5.28); RED CELL DISTRIBUTION WIDTH 17.1 % (11.5-14.0); WHITE BLOOD COUNT 8.2 10^3/uL (4.0-10.5)
[2018-11-11 05:24] LABS: ANION GAP 17 (5-19); BLOOD UREA NITROGEN 52 mg/dL (7-20); CALCIUM 8.7 mg/dL (8.4-10.2); CARBON DIOXIDE 28 mmol/L (22-30); CHLORIDE 92 mmol/L (98-107); GLUCOSE 149 mg/dL (75-110); SODIUM 136.6 mmol/L (137-145)
[2018-11-11] MEDS: CLONIDINE HCL 0.1 MG TABLET PO SCH ×3 (06:38→22:01)
[2018-11-11] MEDS: HEPARIN SOD (PORCINE) 5,000 UNIT/ML 1 ML SYRINGE SUBCUT SCH ×3 (06:39→21:55)
[2018-11-11] MEDS ORDERED: MAGNESIUM HYDROXIDE SUSP 30 ML UDCUP PO ONE (08:00)
[2018-11-11] MEDS ORDERED: BISACODYL 10 MG SUPP.RECT PR ONE (08:00)
[2018-11-11] MEDS: FUROSEMIDE 80 MG TABLET PO SCH ×3 (08:00→18:17)
[2018-11-11] MEDS: CARVEDILOL 12.5 MG TABLET PO SCH ×2 (12:33→22:01)
[2018-11-11] MEDS: NIFEDIPINE 30 MG TAB.ER.24 PO SCH ×2 (12:34→22:01)
[2018-11-11] MEDS: OXCARBAZEPINE 150 MG TABLET PO SCH ×2 (12:34→18:13)
[2018-11-11] MEDS: INSULIN DETEMIR 100 UNIT/ML 3 ML PEN SUBCUT SCH ×2 (12:40→18:12)
[2018-11-11] MEDS ORDERED: ALBUTEROL SULFATE 0.083% NEB 2.5 MG/3 ML AMPUL NEB ONE (13:45)
--- NOTE | 2018-11-11 17:32 | PDOC PROGRESS REPORT ---
Subjective Progress Note for:: 11/11/18 Reason For Visit: Patient seen today on dialysis. She is undergoing dialysis without any issues. Hemodynamically stable. Her chest pains are improving. No complaints of any fever or chills. She also has apparent respiratory decompensation and she is taken off the oxygen according to the patient and therefore she is on continuous O2. VQ scan is negative. An echocardiogram was done and is being awaited for results. Labs and medications were reviewed with the patient. Physical Exam Vital Signs: Temp Pulse Resp BP Pulse Ox 98.4 F 79 16 143/67 H 100 11/11/18 16:00 11/11/18 16:00 11/11/18 16:00 11/11/18 16:00 11/11/18 16:00 Intake & Output 11/10/18 11/11/18 11/12/18 06:59 06:59 06:59 Intake Total 550 236 Output Total 4400 Balance -3850 236 Weight 114.9 kg General appearance: PRESENT: no acute distress Respiratory exam: PRESENT: clear to auscultation freddy, decreased breath sounds. ABSENT: crackles Cardiovascular exam: PRESENT: +S1, +S2, systolic murmur GI/Abdominal exam: PRESENT: normal bowel sounds, soft. ABSENT: organomegaly, tenderness Extremities exam: PRESENT: pedal edema Neurological exam: PRESENT: alert, awake, oriented to person, oriented to place, oriented to time Skin exam: ABSENT: erythema, rash Results Laboratory Results: 11/11/18 04:54 11/11/18 04:54 11/11/18 11/11/18 04:54 04:54 WBC 8.2 RBC 3.08 L Hgb 9.0 L Hct 27.2 L MCV 88 MCH 29.1 MCHC 33.0 RDW 17.1 H Plt Count 334 Sodium 136.6 L Potassium 5.0 Chloride 92 L Carbon Dioxide 28 Anion Gap 17 BUN 52 H Creatinine 8.57 H Est GFR ( Amer) 7 L Est GFR (Non-Af Amer) 5 L Glucose 149 H Calcium 8.7 11/03/18 11/03/18 11/03/18 05:28 05:28 08:39 Creatine Kinase 84 75 CK-MB (CK-2) 0.64 Troponin I 0.024 11/03/18 11/03/18 11/03/18 08:39 20:36 20:36 Creatine Kinase 63 CK-MB (CK-2) 0.65 < 0.22 Troponin I 0.012 < 0.012 Impressions: Lung Scan-VQ NM 11/09/18 00:00 IMPRESSION: NORMAL VENTILATION-PERFUSION LUNG SCAN. NEGATIVE FOR PULMONARY EMBOLI. Chest X-Ray 11/10/18 00:00 IMPRESSION: CARDIAC ENLARGEMENT. VASCULAR CONGESTION. NO SIGNIFICANT INTERVAL CHANGE. Assessment & Plan - Diagnosis (1) Bilateral pneumonia Qualifiers: Pneumonia type: due to unspecified organism Lung location: unspecified part of lung Qualified Code(s): J18.9 - Pneumonia, unspecified organism Is this a current diagnosis for this admission?: Yes Plan: Clinically improving. Continue current antibiotics. (2) Diabetes mellitus type 1 Qualifiers: Diabetes mellitus complication status: with unspecified complications Qualified Code(s): E10.8 - Type 1 diabetes mellitus with unspecified complications Is this a current diagnosis for this admission?: Yes Plan: Advised on tight diabetic control. (3) Hyperkalemia Is this a current diagnosis for this admission?: Yes Plan: Currently stable. (4) ESRD (end stage renal disease) on dialysis Is this a current diagnosis for this admission?: Yes Plan: Patient currently undergoing dialysis without any issues. Vital signs are stable. Is being supervised to ensure safe and smooth procedure. Plan to remove approximately 3-4 L as tolerated. Dialysis orders were reviewed with the treating dialysis nurse. Adjust erythropoietin. (5) Anemia in chronic kidney disease (CKD) Is this a current diagnosis for this admission?: Yes Plan: Adjust erythropoietin. Monitor. (6) Nausea and vomiting Qualifiers: Vomiting type: unspecified Vomiting Intractability: non-intractable Qualified Code(s): R11.2 - Nausea with vomiting, unspecified
[2018-11-11] MEDS: INSULIN LISPRO 100 UNIT/ML 3 ML VIAL SUBCUT PRN ×2 (18:11→22:02)
[2018-11-11] MEDS: PAROXETINE HCL 20 MG TABLET PO SCH (18:18)
--- NOTE | 2018-11-11 21:35 | PDOC PROGRESS REPORT ---
Subjective Progress Note for:: 11/11/18 Subjective:: She has unexplained hypoxemia, the VQ scan was negative for pulmonary emboli which virtually rule out chronic thromboembolism and also acute thrombo embolism the chest x-ray is negative to suggest pneumonia, a full PFT was yet to be done, 2D echo was done patient will need home oxygen on discharge but the challenge is to find out the etiology of the hypoxemia. Reason For Visit: HYPERKALEMIA, PULMONARY EDEMA, PNEUMONIA, ESRD Physical Exam Vital Signs: Temp Pulse Resp BP Pulse Ox 98.3 F 77 20 138/65 H 96 11/11/18 20:00 11/11/18 20:00 11/11/18 20:00 11/11/18 20:00 11/11/18 20:00 Intake & Output 11/10/18 11/11/18 11/12/18 06:59 06:59 06:59 Intake Total 550 236 473 Output Total 4400 3400 Balance -3850 236 -2927 Weight 114.9 kg General appearance: PRESENT: no acute distress Eye exam: PRESENT: PERRLA Respiratory exam: PRESENT: clear to auscultation freddy Cardiovascular exam: PRESENT: +S1, +S2 Neurological exam: PRESENT: alert Results Laboratory Results: 11/11/18 04:54 11/11/18 04:54 11/11/18 11/11/18 04:54 04:54 WBC 8.2 RBC 3.08 L Hgb 9.0 L Hct 27.2 L MCV 88 MCH 29.1 MCHC 33.0 RDW 17.1 H Plt Count 334 Sodium 136.6 L Potassium 5.0 Chloride 92 L Carbon Dioxide 28 Anion Gap 17 BUN 52 H Creatinine 8.57 H Est GFR ( Amer) 7 L Est GFR (Non-Af Amer) 5 L Glucose 149 H Calcium 8.7 11/03/18 11/03/18 11/03/18 05:28 05:28 08:39 Creatine Kinase 84 75 CK-MB (CK-2) 0.64 Troponin I 0.024 11/03/18 11/03/18 11/03/18 08:39 20:36 20:36 Creatine Kinase 63 CK-MB (CK-2) 0.65 < 0.22 Troponin I 0.012 < 0.012 Impressions: Lung Scan-VQ NM 11/09/18 00:00 IMPRESSION: NORMAL VENTILATION-PERFUSION LUNG SCAN. NEGATIVE FOR PULMONARY EMBOLI. Chest X-Ray 11/10/18 00:00 IMPRESSION: CARDIAC ENLARGEMENT. VASCULAR CONGESTION. NO SIGNIFICANT INTERVAL CHANGE. Assessment & Plan - Diagnosis (1) Pneumonia Qualifiers: Pneumonia type: due to unspecified organism Laterality: unspecified laterality Lung location: unspecified part of lung Qualified Code(s): J18.9 - Pneumonia, unspecified organism Is this a current diagnosis for this admission?: Yes (2) End stage chronic kidney disease Is this a current diagnosis for this admission?: Yes (3) Hypoxemia Is this a current diagnosis for this admission?: Yes
[2018-11-12] MEDS: HEPARIN SOD (PORCINE) 5,000 UNIT/ML 1 ML SYRINGE SUBCUT SCH ×2 (05:09→16:48)
[2018-11-12] MEDS: CLONIDINE HCL 0.1 MG TABLET PO SCH ×2 (05:58→16:48)
[2018-11-12] MEDS: INSULIN DETEMIR 100 UNIT/ML 3 ML PEN SUBCUT SCH (09:09)
[2018-11-12] MEDS: CARVEDILOL 12.5 MG TABLET PO SCH (09:09)
[2018-11-12] MEDS: FUROSEMIDE 80 MG TABLET PO SCH ×2 (09:09→16:48)
[2018-11-12] MEDS: NIFEDIPINE 30 MG TAB.ER.24 PO SCH (09:10)
[2018-11-12] MEDS: OXCARBAZEPINE 150 MG TABLET PO SCH (09:11)
[2018-11-12] MEDS: INSULIN LISPRO 100 UNIT/ML 3 ML VIAL SUBCUT PRN ×2 (12:05→16:48)
--- NOTE | 2018-11-12 14:13 | PDOC DISCHARGE SUMMARY ---
General - Admit/Disc Date/PCP Admission Date/Primary Care Provider: 11/03/18 07:30 HILARY HERNANDEZ MD Discharge Date: 11/12/18 - Discharge Diagnosis (1) Pneumonia Is this a current diagnosis for this admission?: Yes (2) End stage chronic kidney disease Is this a current diagnosis for this admission?: Yes (3) Diabetes mellitus type 1 Is this a current diagnosis for this admission?: Yes (4) Hypoxemia Is this a current diagnosis for this admission?: Yes (5) Acute hypoxemic respiratory failure Is this a current diagnosis for this admission?: Yes - Additional Information Discharge Diet: Diabetic Discharge Activity: Activity As Tolerated Home Medications: RX: Alprazolam [Xanax 0.5 mg Tablet] 1 mg PO DAILYP PRN 10/05/18 RX: Clonidine HCl [Catapres 0.1 mg Tablet] 0.1 mg PO Q8 10/05/18 RX: Furosemide [Lasix 80 mg Tablet] 80 mg PO TID 10/05/18 RX: Insulin Detemir [Levemir] 30 units SQ BID 10/05/18 RX: Nifedipine [Nifedipine ER] 60 mg PO Q12 10/05/18 RX: Oxcarbazepine [Trileptal] 300 mg PO BID 10/05/18 RX: Oxycodone HCl/Acetaminophen [Percocet 7.5-325 mg Tablet] 1 tab PO Q6 PRN 10/05/18 RX: Paroxetine HCl [Paxil] 40 mg PO QPM 10/05/18 RX: Buprenorphine HCl [Belbuca] 300 mcg BC Q12 11/03/18 RX: Calcium Carbonate [Tums] 200 mg PO PRN PRN 11/03/18 RX: Carvedilol [Coreg 12.5 mg Tablet] 12.5 mg PO Q12 11/03/18 RX: Insulin Lispro [Humalog Insulin (Lispro) 100 unit/mL] 0 unit SUBCUT .SLD SCALE 11/03/18 RX: Omeprazole 40 mg PO DAILY 11/03/18 History of Present Illness History of Present Illness: ERICH GOODMAN is a 33 year old female, She has end-stage renal disease on maintenance hemodialysis, she called me earlier this morning around 3 AM complaining to me that she was diagnosed with pneumonia in the emergency room when she visited the emergency room the day earlier, she said she was very short of breath and that she could not lay flat and she was having difficulty sleeping I advised her to return to the emergency room for evaluation, she was seen in the emergency room chest x-ray was done that showed opacities in both lung field that could represent pulmonary edema or pneumonia. She apparently Missed . hemodialysis because she was sick she has a history of end-stage renal disease on maintenance hemodialysis she has previously shown to be noncompliant with hemodialysis regimen but lately she has improved her adherence . She required emergency hemodialysis she was found to have hyperkalemia Hospital Course Hospital Course: Patient was admitted for the management of acute hypoxemic respiratory failure with a background of pulmonary edema and pneumonia. She has end-stage renal disease on maintenance hemodialysis, she was seen by nephrology underwent dialysis sessions in the hospital. After dialysis there was improvement in the infiltrate on the chest x-ray she also was treated with IV antibiotic for pneumonia. Patient remained hypoxemic despite chest x-ray improvement. The etiology of the hypoxemia was no apparent a VQ scan was obtained it was normal, virtually rule out acute or chronic thromboembolism. A 2D echo was done, it demonstrated normal ejection fraction of left ventricle there was no Doppler evidence of diastolic dysfunction of left ventricle. A full lung function test was also obtained, I do not have the results at the time of discharge from the hospital. I saw the patient this morning she is requiring oxygen at 2 L she be discharged home on oxygen at least temporarily, she has a history of asthma there is no overt wheezing presently in the hospital. Physical Exam Vital Signs: Temp Pulse Resp BP Pulse Ox 97.8 F 67 19 145/67 H 100 11/12/18 12:00 11/12/18 12:00 11/12/18 12:00 11/12/18 12:00 11/12/18 12:00 Intake & Output 11/11/18 11/12/18 11/13/18 06:59 06:59 06:59 Intake Total 236 1139 Output Total 3400 Balance 236 -2261 Weight 114.9 kg General appearance: PRESENT: no acute distress, well-developed, well-nourished Head exam: PRESENT: atraumatic, normocephalic Eye exam: PRESENT: conjunctiva pink, EOMI, PERRLA Ear exam: PRESENT: normal external ear exam Mouth exam: PRESENT: moist, tongue midline Neck exam: PRESENT: full ROM Respiratory exam: PRESENT: clear to auscultation freddy Cardiovascular exam: PRESENT: RRR, +S1, +S2 Pulses: PRESENT: normal dorsalis pedis pul, +2 pedal pulses bilateral Vascular exam: PRESENT: normal capillary refill GI/Abdominal exam: PRESENT: normal bowel sounds, soft Rectal exam: PRESENT: deferred Neurological exam: PRESENT: alert, awake, oriented to person, oriented to place, oriented to time, oriented to situation, CN II-XII grossly intact Psychiatric exam: PRESENT: appropriate affect, normal mood Skin exam: PRESENT: dry, intact, warm Results Laboratory Results: 11/11/18 04:54 11/11/18 04:54 11/03/18 11/03/18 11/03/18 05:28 05:28 08:39 Creatine Kinase 84 75 CK-MB (CK-2) 0.64 Troponin I 0.024 11/03/18 11/03/18 11/03/18 08:39 20:36 20:36 Creatine Kinase 63 CK-MB (CK-2) 0.65 < 0.22 Troponin I 0.012 < 0.012 Impressions: Lung Scan-VQ NM 11/09/18 00:00 IMPRESSION: NORMAL VENTILATION-PERFUSION LUNG SCAN. NEGATIVE FOR PULMONARY EMBOLI. Chest X-Ray 11/10/18 00:00 IMPRESSION: CARDIAC ENLARGEMENT. VASCULAR CONGESTION. NO SIGNIFICANT INTERVAL CHANGE. Qualifiers - * PATIENT BEING DISCHARGED WITH ANY OF THE FOLLOWING DIAGNOSIS: No
[2018-11-12 16:45] VITALS: BP 150/72
== END 2018-11-12 18:31 | disposition home or self-care (01) | DRG 193 ==
LOC: ER 05:10 → EH 07:30 → ICU 10:55 → 4S 11-07 09:07
PROVIDERS: ADMIT Internal Medicine; ATTEND Internal Medicine
PROC: 5A1D70Z Performance of Urinary Filtration, Intermittent, Less than 6 Hours Per Day (ICD-10-PCS; principal; 2018-11-03)
PROC: 5A09557 Assistance with Respiratory Ventilation, Greater than 96 Consecutive Hours, Continuous Positive Airway Pressure (ICD-10-PCS; 2018-11-03)
PROC: 5A1D70Z Performance of Urinary Filtration, Intermittent, Less than 6 Hours Per Day (ICD-10-PCS; 2018-11-04)
PROC: 5A1D70Z Performance of Urinary Filtration, Intermittent, Less than 6 Hours Per Day (ICD-10-PCS; 2018-11-07)
PROC: 5A1D70Z Performance of Urinary Filtration, Intermittent, Less than 6 Hours Per Day (ICD-10-PCS; 2018-11-09)
PROC: 5A1D70Z Performance of Urinary Filtration, Intermittent, Less than 6 Hours Per Day (ICD-10-PCS; 2018-11-11)
DX: J18.9 Pneumonia, unspecified organism (principal); N18.6 End stage renal disease; J96.21 Acute and chronic respiratory failure with hypoxia; I13.2 Hypertensive heart and chronic kidney disease with heart failure and with stage 5 chronic kidney disease, or end stage renal disease; N25.81 Secondary hyperparathyroidism of renal origin; E87.5 Hyperkalemia; Z99.2 Dependence on renal dialysis; D63.1 Anemia in chronic kidney disease; E10.22 Type 1 diabetes mellitus with diabetic chronic kidney disease; E10.21 Type 1 diabetes mellitus with diabetic nephropathy; L40.9 Psoriasis, unspecified; F32.9 Major depressive disorder, single episode, unspecified; I50.9 Heart failure, unspecified; I25.10 Atherosclerotic heart disease of native coronary artery without angina pectoris; E10.319 Type 1 diabetes mellitus with unspecified diabetic retinopathy without macular edema; F17.210 Nicotine dependence, cigarettes, uncomplicated; G43.909 Migraine, unspecified, not intractable, without status migrainosus; Z90.49 Acquired absence of other specified parts of digestive tract; Z79.899 Other long term (current) drug therapy; Z88.6 Allergy status to analgesic agent; Z88.1 Allergy status to other antibiotic agents; Z99.81 Dependence on supplemental oxygen
CPT/HCPCS: 36415; 71045; 71046; 78582; 80048; 80053; 82150; 82550; 82553; 82962; 83690; 83735; 84100; 84439; 84443; 84484; 85025; 85027; 85610; 85730; 87040; 93005; 93010; 93306; 94060; 94660; 94727; 94729; 96374; 96375; 99291; A9540; A9567; J0610; J0696; J1644; J1815; J1940; J2405; J2550; J3010; J3490; Q4081; Q9969

== ENCOUNTER 2018-11-23 08:22 | Emergency (ER) | payer MEDICARE, MEDICAID ==
--- NOTE | 2018-11-23 09:21 | ER Document Report ---
ED General - General Chief Complaint: Chest Tightness Stated Complaint: CHEST PAIN, SHORTNESS OF BREATH Time Seen by Provider: 11/23/18 09:19 Mode of Arrival: Ambulatory Information source: Patient Notes: Patient is a 33-year-old female who presents to the emergency department with chief complaint of chest pain. Patient reports chest pain started around 2 AM while she was at rest. She describes as a midsternal achy/tightness. Is nonradiating. She denies any nausea, reports she vomited one time on arrival here this morning. She denies any diaphoresis. She does report that she has be en having a cough as she is getting over a pneumonia. TRAVEL OUTSIDE OF THE [place] IN LAST 30 DAYS: No - Related Data Allergies/Adverse Reactions: aspirin [Aspirin] Allergy (Verified 11/23/18 08:26) Anaphylaxis ciprofloxacin [From Cipro] Allergy (Verified 11/23/18 08:26) Anaphylaxis clindamycin [Clindamycin] Allergy (Verified 11/23/18 08:26) hydrocodone [From Vicodin] Allergy (Verified 11/23/18 08:26) ibuprofen [From Motrin] Allergy (Verified 11/23/18 08:26) Anaphylaxis lidocaine [From Lidoderm] Allergy (Verified 11/23/18 08:26) Generalized rash tramadol HCl [From Ultram] Allergy (Verified 11/23/18 08:26) vancomycin [Vancomycin] Allergy (Verified 11/23/18 08:26) Shortness of Breath nitroglycerin [Nitroglycerin] Adverse Reaction (Intermediate, Verified 11/23/18 08:26) Joint pain Past Medical History - General Information source: Patient - Social History Smoking Status: Never Smoker Frequency of alcohol use: None Drug Abuse: None Family History: Reviewed & Not Pertinent - Past Medical History Cardiac Medical History: Reports: Hx Congestive Heart Failure, Hx Coronary Artery Disease, Hx Hypertension, Hx Heart Murmur Pulmonary Medical History: Reports: Hx Asthma, Hx Pneumonia Neurological Medical History: Reports: Hx Migraine, Hx Seizures - only r/t low calcium Endocrine Medical History: Reports: Hx Diabetes Mellitus Type 1, Hx Diabetes Mellitus Type 2 Renal/ Medical History: Reports: Hx End Stage Renal Disease - On hemodialysis MWF, Hx Hemodialysis, Hx Ovarian Cysts. Denies: Hx Peritoneal Dialysis Malignancy Medical History: GI Medical History: Reports: Hx Gastritis Musculoskeletal Medical History: Skin Medical History: Reports Hx Psoriasis Psychiatric Medical History: Reports: Hx Depression Traumatic Medical History: Infectious Medical History: Past Surgical History: Reports: Hx Appendectomy, Hx Cholecystectomy, Hx Vascular Surgery - Lt AV Fistula and graft; Rt AV fistula. Denies: Hx Hysterectomy - Immunizations Immunizations up to date: Yes Hx Diphtheria, Pertussis, Tetanus Vaccination: Yes Hx Pneumococcal Vaccination: 08/22/11 Review of Systems - Review of Systems Constitutional: No symptoms reported EENT: No symptoms reported Cardiovascular: Chest pain Respiratory: Cough, Short of breath Gastrointestinal: Vomiting - x1 Genitourinary: No symptoms reported Female Genitourinary: No symptoms reported Musculoskeletal: No symptoms reported Skin: No symptoms reported Physical Exam - Vital signs Vitals: Temp Pulse Resp BP Pulse Ox 98.3 F 90 20 196/95 H 96 11/23/18 08:28 11/23/18 08:28 11/23/18 08:28 11/23/18 08:28 11/23/18 08:28 - Notes Notes: PHYSICAL EXAMINATION: GENERAL: Well-appearing, well-nourished and in no acute distress. HEAD: Atraumatic, normocephalic. EYES: Pupils equal round and reactive to light, extraocular movements intact, conjunctiva are normal. ENT: Nares patent, oropharynx clear without exudates. Moist mucous membranes. NECK: Normal range of motion, supple without lymphadenopathy LUNGS: Breath sounds clear to auscultation bilaterally and equal. No wheezes rales or rhonchi. HEART: Regular rate and rhythm without murmurs ABDOMEN: Soft, nontender, nondistended large round abdomen. No guarding, no rebound. No masses appreciated. Musculoskeletal: Normal range of motion, no pitting or edema. No cyanosis. NEUROLOGICAL: Cranial nerves grossly intact. Normal speech, normal gait. PSYCH: Normal mood, normal affect. SKIN: Warm, Dry, normal turgor. Course - Re-evaluation Re-evalutation: Chest x-rays were improved from previous, no evidence of CHF. EKG sinus rhythm, normal axis, no ST segment elevations or depressions, this is also unchanged from previous on file. CBC is unremarkable. CMP is at patient's baseline as far as her electrolytes as well and her BUN and creatinine. Troponin negative. BNP is elevated at 10,700. Patient has no peripheral edema. Vital signs are stable other than hypertension which again is at or near patient's baseline when she has missed dialysis. Will call patient's primary care provider. 11/23/18 10:34 Called and spoke with Dr. Hernandez who recommends that I speak with Dr. Farah to ensure that this patient gets dialysis today. Spoke with Dr. Farah, nephrology who states that she was already notified patient missed dialysis this morning and came to the emergency department. Patient will be discharged at this time and sent over to [facility] [place] for dialysis as they are expecting her. - Vital Signs Vital signs: Temp Pulse Resp BP Pulse Ox 98.4 F 87 12 231/92 H 99 11/23/18 10:43 11/23/18 10:43 11/23/18 10:43 11/23/18 10:43 11/23/18 10:43 - Laboratory Result Diagrams: 11/23/18 09:20 11/23/18 09:20 Laboratory results interpreted by me: 11/23/18 11/23/18 11/23/18 09:20 09:20 09:20 RBC 3.07 L Hgb 9.1 L Hct 27.2 L RDW 17.5 H Sodium 136.0 L Potassium 5.5 H Chloride 95 L BUN 53 H Creatinine 9.41 H Est GFR ( Amer) 6 L Est GFR (Non-Af Amer) 5 L Glucose 308 H Calcium 7.9 L Direct Bilirubin 0.6 H Alkaline Phosphatase 193 H NT-Pro-B Natriuret Pep 14060 H Discharge - Discharge Clinical Impression: Atypical chest pain, Shortness of breath, Hypertension Condition: Stable Disposition: HOME, SELF-CARE Additional Instructions: Please proceed immediately to your dialysis appointment. They are waiting for you. Your workup today was unremarkable and unchanged from previous. Your chest x-ray shows that your pneumonia is improving. Referrals: HILARY HERNANDEZ MD [Primary Care Provider] - Follow up as needed
[2018-11-23 09:33] LABS: ABSOLUTE BASOPHILS # (AUTO) 0.1 10^3/uL (0.0-0.2); ABSOLUTE EOSINOPHILS # (AUTO) 0.5 10^3/uL (0.0-0.6); ABSOLUTE LYMPHOCYTES (AUTO) 2.3 10^3/uL (0.5-4.7); ABSOLUTE MONOCYTES (AUTO) 0.5 10^3/uL (0.1-1.4); ABSOLUTE NEUT (AUTO) 6.7 10^3/uL (1.7-8.2); BASOPHILS % (AUTO) 1.1 % (0-2); EOSINOPHILS % (AUTO) 4.5 % (0-6); HEMATOCRIT 27.2 % (36.0-47.0); HEMOGLOBIN 9.1 g/dL (12.0-15.5); LYMPHOCYTES % (AUTO) 22.9 % (13-45); MEAN CORPUSCULAR HEMOGLOBIN 29.8 pg (27.0-33.4); MEAN CORPUSCULAR HGB CONC 33.6 g/dL (32.0-36.0); MEAN CORPUSCULAR VOLUME 89 fl (80-97); MONOCYTES % (AUTO) 5.3 % (3-13); PLATELET COUNT 328 10^3/uL (150-450); RED BLOOD COUNT 3.07 10^6/uL (3.72-5.28); RED CELL DISTRIBUTION WIDTH 17.5 % (11.5-14.0); SEGMENTED NEUTROPHILS % (AUTO) 66.2 % (42-78); TOTAL CELLS COUNTED % (AUTO) 100 %
--- NOTE | 2018-11-23 09:47 | RADIOLOGY REPORT (SQ) ---
EXAM DESCRIPTION: CHEST SINGLE VIEW COMPLETED DATE/TIME: 11/23/2018 9:31 am REASON FOR STUDY: chest pain, hx of chf, ESRD COMPARISON: 11/10/2018. FINDINGS: Single-view chest AP portable upright at approximately 0930 hours. There is cardiomegaly with mild prominence of the central pulmonary vascularity. Slightly improved a eration compared to prior, however. No developing pneumonia. No pneumothorax. TECHNICAL DOCUMENTATION: JOB ID: [id number] Reading location - IP/workstation name: [email or web address]
[2018-11-23 09:50] LABS: ALANINE AMINOTRANSFERASE 11 U/L (9-52); ALBUMIN 4.3 g/dL (3.5-5.0); ALKALINE PHOSPHATASE 193 U/L (38-126); ANION GAP 16 (5-19); ASPARTATE AMINO TRANSFERASE 17 U/L (14-36); BILIRUBIN,DIRECT 0.6 mg/dL (0.0-0.4); BILIRUBIN,TOTAL 0.6 mg/dL (0.2-1.3); BLOOD UREA NITROGEN 53 mg/dL (7-20); CALCIUM 7.9 mg/dL (8.4-10.2); CARBON DIOXIDE 25 mmol/L (22-30); CHLORIDE 95 mmol/L (98-107); CREATINE KINASE 72 U/L (30-135); GLUCOSE 308 mg/dL (75-110)
[2018-11-23 09:51] LABS: POTASSIUM 5.5 mmol/L (3.6-5.0)
[2018-11-23 10:07] LABS: NT PRO BNP 10700 pg/mL (<125)
[2018-11-23 10:08] LABS: TROPONIN I < 0.012 ng/mL
[2018-11-23 10:45] VITALS: BP 231/92
--- NOTE | 2018-11-23 17:19 | EKG REPORT ---
SEVERITY:- ABNORMAL ECG - SINUS RHYTHM LVH BY VOLTAGE PROLONGED QT INTERVAL : Confirmed by: Beatriz Leyva MD 23-Nov-2018 17:17:46
== END 2018-11-23 10:44 | disposition home or self-care (01) ==
LOC: ER 08:22
DX: R07.89 Other chest pain (principal); R06.02 Shortness of breath; I11.0 Hypertensive heart disease with heart failure; R11.2 Nausea with vomiting, unspecified; I50.9 Heart failure, unspecified; I25.10 Atherosclerotic heart disease of native coronary artery without angina pectoris; J45.909 Unspecified asthma, uncomplicated; E11.9 Type 2 diabetes mellitus without complications
CPT/HCPCS: 36415; 71045; 80053; 82550; 82553; 83880; 84484; 85025; 93005; 93010; 99285

== ENCOUNTER 2018-11-28 08:04 | Emergency (ER) | payer MEDICARE, MEDICAID ==
--- NOTE | 2018-11-28 09:02 | ER Document Report ---
ED General - General Chief Complaint: Shortness Of Breath Stated Complaint: SHORTNESS OF BREATH, NAUSEA, VOMITING Time Seen by Provider: 11/28/18 09:01 Mode of Arrival: Medic Information source: Patient TRAVEL OUTSIDE OF THE [place] IN LAST 30 DAYS: No - HPI Patient complains to provider of: Chest pain Onset: Other - 33-year-old female that presents for evaluation of oxygen dependence as well as chest pain for which she is been evaluated recurrently in the past almost always coinciding with a day for dialysis who presents for cynthia luation of similar symptoms today. She notes that she is got some chest pressure and shortness of breath similar to previous episodes. She has been doing all of her normal daily activities says that nothing triggered this nothing is made it better or worse. This is very similar to her previous epis odes in the past which she has had. - Related Data Allergies/Adverse Reactions: aspirin [Aspirin] Allergy (Verified 11/28/18 08:13) Anaphylaxis ciprofloxacin [From Cipro] Allergy (Verified 11/28/18 08:13) Anaphylaxis clindamycin [Clindamycin] Allergy (Verified 11/28/18 08:13) hydrocodone [From Vicodin] Allergy (Verified 11/28/18 08:13) ibuprofen [From Motrin] Allergy (Verified 11/28/18 08:13) Anaphylaxis lidocaine [From Lidoderm] Allergy (Verified 11/28/18 08:13) Generalized rash tramadol HCl [From Ultram] Allergy (Verified 11/28/18 08:13) vancomycin [Vancomycin] Allergy (Verified 11/28/18 08:13) Shortness of Breath nitroglycerin [Nitroglycerin] Adverse Reaction (Intermediate, Verified 11/28/18 08:13) Joint pain Past Medical History - General Information source: Patient - Social History Smoking Status: Unknown if Ever Smoked Family History: Reviewed & Not Pertinent - Past Medical History Cardiac Medical History: Reports: Hx Congestive Heart Failure, Hx Coronary Artery Disease, Hx Hypertension, Hx Heart Murmur Pulmonary Medical History: Reports: Hx Asthma, Hx Pneumonia Neurological Medical History: Reports: Hx Migraine, Hx Seizures - only r/t low calcium Endocrine Medical History: Reports: Hx Diabetes Mellitus Type 1, Hx Diabetes Mellitus Type 2 Renal/ Medical History: Reports: Hx End Stage Renal Disease - On hemodialysis MWF, Hx Hemodialysis, Hx Ovarian Cysts. Denies: Hx Peritoneal Dialysis Malignancy Medical History: GI Medical History: Reports: Hx Gastritis Musculoskeletal Medical History: Skin Medical History: Reports Hx Psoriasis Psychiatric Medical History: Reports: Hx Depression Traumatic Medical History: Infectious Medical History: Past Surgical History: Reports: Hx Appendectomy, Hx Cholecystectomy, Hx Vascular Surgery - Lt AV Fistula and graft; Rt AV fistula. Denies: Hx Hysterectomy - Immunizations Immunizations up to date: Yes Hx Diphtheria, Pertussis, Tetanus Vaccination: Yes Hx Pneumococcal Vaccination: 08/22/11 Review of Systems - Review of Systems -: Yes All other systems reviewed and negative Physical Exam - Vital signs Vitals: Temp Pulse Resp BP Pulse Ox 97.8 F 96 24 H 167/76 H 83 L 11/28/18 08:22 11/28/18 08:22 11/28/18 08:22 11/28/18 08:22 11/28/18 08:22 - General General appearance: Anxious In distress: Mild - HEENT Head: Normocephalic Eyes: Normal Conjunctiva: Normal Cornea: Normal - Respiratory Respiratory status: Tachypnea Chest status: Nontender Breath sounds: Rhonchi - inferior ronchi Chest palpation: Normal - Cardiovascular Rhythm: Regular Heart sounds: Normal auscultation Murmur: No - Abdominal Inspection: Normal Distension: No distension Bowel sounds: Normal Tenderness: Nontender Organomegaly: No organomegaly - Back Back: Normal, Nontender - Extremities General upper extremity: Normal inspection, Nontender, Normal color, Normal ROM, Normal temperature General lower extremity: Normal inspection, Nontender, Normal color, Normal ROM, Normal temperature, Normal weight bearing. No: Lina's sign - Neurological Neuro grossly intact: Yes Cognition: Normal Orientation: AAOx4 [place] Coma Scale Eye Opening: Spontaneous [place] Coma Scale Verbal: Oriented [place] Coma Scale Motor: Obeys Commands [place] Coma Scale Total: 15 Speech: Normal Motor strength normal: LUE, RUE, LLE, RLE Sensory: Normal - Psychological Associated symptoms: Normal affect, Normal mood Course - Re-evaluation Re-evalutation: Evaluated this patient with labs as well as physical exam, initiated "cardiac workup". Patient's EKG is unchanged, her troponin is negative, her labs are relatively at baseline for her. She has not had dialysis over the weekend. I did give her medications to help with pain and nausea while she was in the emergency department. Spoke to Dr. Gustavo Kwon who notes that this patient has recurrent chest pain similar to this in the past without any obvious things being identified. He would like her to be dialyzed today as she is a dialysis patient. Notes that Dr. Hernandez generally dictates this patient's care. Contacted Dr. Hernandez who notes that this patient does have recurrent episodes of chest pain and that he does not believe that she requires hospitalization if she has a negative workup at this time. Given that the patient has a normal high level potassium do not believe she warrants emergent dialysis in the emergency department. She has an unchanged troponin from previous and modest fluid overload on x-ray which is similar to past. I do not believe that this represents a serious underlying cardiac pathology such as MT or PE at this time. I do realize that this patient is at extremely high risk for negative outcomes related to chest pain given her historical features oxygen requirement and dialysis requirement however as there would be a delay in her dialysis if she were to stay in hospital and she has a normal potassium at this time also in consultation with her primary physician as well as her armhole raiser lockstitch I think it is appropriate for her to undergo discharge given her reassuring workup without appreciable acute changes to dialysis today. Transport was arranged for this patient directly to dialysis. - Vital Signs Vital signs: Temp Pulse Resp BP Pulse Ox 99.1 F 96 20 160/73 H 94 11/28/18 12:39 11/28/18 08:22 11/28/18 12:39 11/28/18 12:39 11/28/18 12:39 - Laboratory Result Diagrams: 11/28/18 08:59 11/28/18 08:59 Laboratory results interpreted by me: 11/28/18 11/28/18 11/28/18 08:59 08:59 09:19 WBC 10.8 H RBC 3.17 L Hgb 9.5 L Hct 27.9 L RDW 17.2 H Eosinophils % 8.5 H Absolute Eosinophils 0.9 H Sodium 133.8 L Potassium 5.2 H Chloride 93 L Carbon Dioxide 21 L Anion Gap 20 H BUN 57 H Creatinine 10.48 H Est GFR ( Amer) 5 L Est GFR (Non-Af Amer) 4 L Glucose 367 H Calcium 7.2 L Direct Bilirubin 0.5 H Alkaline Phosphatase 222 H NT-Pro-B Natriuret Pep 7180 H Discharge - Discharge Clinical Impression: ESRD (end stage renal disease) on dialysis Chest pain Qualifiers: Chest pain type: unspecified Qualified Code(s): R07.9 - Chest pain, unspecified Condition: Stable Disposition: HOME, SELF-CARE Additional Instructions: You were seen today in the emergency department for your chest pain. You had evaluation including a physical exam. We did not see any evidence of injury to your heart today. It is important that you get your dialysis today. Please return to the emergency room in case your chest pain worsens. If you have fevers chills or other symptoms please also return to the emergency room. Otherwise continue to follow-up, call Dr. Hernandez and schedule an appointment for tomorrow. Referrals: HILARY HERNANDEZ MD [Primary Care Provider] - Follow up as needed
[2018-11-28 09:23] LABS: ABSOLUTE BASOPHILS # (AUTO) 0.1 10^3/uL (0.0-0.2); ABSOLUTE EOSINOPHILS # (AUTO) 0.9 10^3/uL (0.0-0.6); ABSOLUTE LYMPHOCYTES (AUTO) 2.6 10^3/uL (0.5-4.7); ABSOLUTE MONOCYTES (AUTO) 0.5 10^3/uL (0.1-1.4); ABSOLUTE NEUT (AUTO) 6.6 10^3/uL (1.7-8.2); BASOPHILS % (AUTO) 1.2 % (0-2); EOSINOPHILS % (AUTO) 8.5 % (0-6); HEMATOCRIT 27.9 % (36.0-47.0); HEMOGLOBIN 9.5 g/dL (12.0-15.5); LYMPHOCYTES % (AUTO) 24.5 % (13-45); MEAN CORPUSCULAR HEMOGLOBIN 30.1 pg (27.0-33.4); MEAN CORPUSCULAR HGB CONC 34.1 g/dL (32.0-36.0); MEAN CORPUSCULAR VOLUME 88 fl (80-97); MONOCYTES % (AUTO) 4.6 % (3-13); PLATELET COUNT 358 10^3/uL (150-450); RED BLOOD COUNT 3.17 10^6/uL (3.72-5.28); RED CELL DISTRIBUTION WIDTH 17.2 % (11.5-14.0); SEGMENTED NEUTROPHILS % (AUTO) 61.2 % (42-78); TOTAL CELLS COUNTED % (AUTO) 100 %; WHITE BLOOD COUNT 10.8 10^3/uL (4.0-10.5)
[2018-11-28] MEDS ORDERED: FENTANYL CITRATE INJ/PF 100 MCG/2 ML AMPUL IV ONE (09:23)
[2018-11-28 09:36] LABS: ALANINE AMINOTRANSFERASE 9 U/L (9-52); ALKALINE PHOSPHATASE 222 U/L (38-126); ASPARTATE AMINO TRANSFERASE 15 U/L (14-36); BILIRUBIN,DIRECT 0.5 mg/dL (0.0-0.4); BILIRUBIN,TOTAL 0.5 mg/dL (0.2-1.3); BLOOD UREA NITROGEN 57 mg/dL (7-20); CALCIUM 7.2 mg/dL (8.4-10.2); CARBON DIOXIDE 21 mmol/L (22-30); CHLORIDE 93 mmol/L (98-107); GLUCOSE 367 mg/dL (75-110); POTASSIUM 5.2 mmol/L (3.6-5.0); SODIUM 133.8 mmol/L (137-145); TOTAL PROTEIN 7.8 g/dL (6.3-8.2)
[2018-11-28 09:41] LABS: ANION GAP 20 (5-19)
[2018-11-28] MEDS ORDERED: PROMETHAZINE HCL INJ 25 MG/1 ML VIAL IV ONE (09:41)
[2018-11-28 10:11] LABS: A TYPE INFLUENZA AG NEGATIVE (NEGATIVE); B INFLUENZA AG NEGATIVE (NEGATIVE)
[2018-11-28 10:11] LABS: TROPONIN I 0.013 ng/mL
--- NOTE | 2018-11-28 10:21 | RADIOLOGY REPORT (SQ) ---
EXAM DESCRIPTION: CHEST SINGLE VIEW COMPLETED DATE/TIME: 11/28/2018 10:08 am REASON FOR STUDY: cough COMPARISON: AP chest 11/23/2018, 11/10/2018, 11/07/2018, 11/05/2018 EXAM PARAMETERS: NUMBER OF VIEWS: One view. TECHNIQUE: Single frontal radiographic view of the chest acquired. RADIATION DOSE: NA LIMITATIONS: None. FINDINGS: LUNGS AND PLEURA: Bilateral perihilar pulmonary edema is present. Pneumonia could not be excluded. No pleural effusion. No pneumothorax. MEDIASTINUM AND HILAR STRUCTURES: No masses. Contour normal. HEART AND VASCULAR STRUCTURES: Stable cardiomegaly BONES: No acute findings. HARDWARE: Old right axillary vascular stents OTHER: No other significant finding. IMPRESSION: Acute bilateral perihilar pulmonary edema TECHNICAL DOCUMENTATION: JOB ID: [id number] [employer]- All Rights Reserved Reading location - IP/workstation name: [email or web address]
[2018-11-28] MEDS ORDERED: HYDROCODONE/ACETAMINOPHEN 5-325 MG TABLET PO ONE (11:39)
[2018-11-28] MEDS ORDERED: OXYCODONE-ACETAMINOPHEN 5-325 MG TABLET PO ONE (11:53)
[2018-11-28 12:42] VITALS: BP 160/73
--- NOTE | 2018-11-28 12:57 | EKG REPORT ---
SEVERITY:- ABNORMAL ECG - SINUS TACHYCARDIA BORDERLINE LEFT AXIS DEVIATION NONSPECIFIC T ABNORMALITIES, LATERAL LEADS PROLONGED QT INTERVAL : Confirmed by: Ciro Beckford MD 28-Nov-2018 12:57:09
== END 2018-11-28 12:42 | disposition home or self-care (01) ==
LOC: ER 08:04
DX: R07.9 Chest pain, unspecified (principal); I13.2 Hypertensive heart and chronic kidney disease with heart failure and with stage 5 chronic kidney disease, or end stage renal disease; E11.22 Type 2 diabetes mellitus with diabetic chronic kidney disease; I50.9 Heart failure, unspecified; N18.6 End stage renal disease; R06.02 Shortness of breath; R11.2 Nausea with vomiting, unspecified; I25.10 Atherosclerotic heart disease of native coronary artery without angina pectoris; J45.909 Unspecified asthma, uncomplicated
CPT/HCPCS: 93005; 99285; 96374; 96375; 36415; 84703; 85025; 80053; 84484; 87804; 83880; 71045; 93010; J3010; A9270; J2550

== ENCOUNTER 2019-01-02 04:04 | Inpatient (IN) | payer MEDICARE, MEDICAID ==
--- NOTE | 2019-01-02 04:13 | ER Document Report ---
ED General - General TRAVEL OUTSIDE OF THE [place] IN LAST 30 DAYS: No <BYRON CADE - Last Filed: 01/02/19 05:52> <LEVI PATRICK - Last Filed: 01/02/19 07:55> - General Stated Complaint: DIFFICULTY BREATHING Time Seen by Provider: 01/02/19 04:08 Primary Care Provider: ERICA IVY MD [ACTIVE STAFF] - Follow up as needed Notes: Patient is a 33-year-old female presents with complaint of difficulty breathing. Said she has had some subjective fevers at home. Over the weekend she is had a lot of coughing and bringing up some phlegm. She is on dialysis. Last dialysis Wednesday. Said they pulled off a little more fluid than normal. She denies any vomiting. She has some chest tightness. She denies any other complaints. Tonight her breathing became much worse and therefore she called the police arrived. Paramedics placed her on 3 L of oxygen and her O2 saturation was still only 87% and therefore they placed her on CPAP. Patient's ramp boss is Dr. Kwon. (BYRON CADE) - Related Data Allergies/Adverse Reactions: aspirin [Aspirin] Allergy (Verified 11/28/18 08:13) Anaphylaxis ciprofloxacin [From Cipro] Allergy (Verified 11/28/18 08:13) Anaphylaxis clindamycin [Clindamycin] Allergy (Verified 11/28/18 08:13) hydrocodone [From Vicodin] Allergy (Verified 11/28/18 08:13) ibuprofen [From Motrin] Allergy (Verified 11/28/18 08:13) Anaphylaxis lidocaine [From Lidoderm] Allergy (Verified 11/28/18 08:13) Generalized rash tramadol HCl [From Ultram] Allergy (Verified 11/28/18 08:13) vancomycin [Vancomycin] Allergy (Verified 11/28/18 08:13) Shortness of Breath nitroglycerin [Nitroglycerin] Adverse Reaction (Intermediate, Verified 11/28/18 08:13) Joint pain Past Medical History - Social History Smoking Status: Never Smoker Frequency of alcohol use: None Drug Abuse: None Family History: Reviewed & Not Pertinent - Past Medical History Cardiac Medical History: Reports: Hx Congestive Heart Failure, Hx Coronary Artery Disease, Hx Hypertension, Hx Heart Murmur Pulmonary Medical History: Reports: Hx Asthma, Hx Pneumonia Neurological Medical History: Reports: Hx Migraine, Hx Seizures - only r/t low calcium Endocrine Medical History: Reports: Hx Diabetes Mellitus Type 1, Hx Diabetes Mellitus Type 2 Renal/ Medical History: Reports: Hx End Stage Renal Disease - On hemodialysis MWF, Hx Hemodialysis, Hx Ovarian Cysts. Denies: Hx Peritoneal Dialysis Malignancy Medical History: GI Medical History: Reports: Hx Gastritis Musculoskeletal Medical History: Skin Medical History: Reports Hx Psoriasis Psychiatric Medical History: Reports: Hx Depression Traumatic Medical History: Infectious Medical History: Past Surgical History: Reports: Hx Appendectomy, Hx Cholecystectomy, Hx Vascular Surgery - Lt AV Fistula and graft; Rt AV fistula. Denies: Hx Hysterectomy - Immunizations Immunizations up to date: Yes Hx Diphtheria, Pertussis, Tetanus Vaccination: Yes Hx Pneumococcal Vaccination: 08/22/11 <BYRON CADE - Last Filed: 01/02/19 05:52> Review of Systems <BYRON CADE - Last Filed: 01/02/19 05:52> - Review of Systems Notes: My Normal Review Basic REVIEW OF SYSTEMS: CONSTITUTIONAL : Subjective fevers EENT: Denies eye, ear, throat, or mouth pain or symptoms. Denies nasal or sinus congestion. CARDIOVASCULAR: Tightness.. RESPIRATORY: Difficulty breathing. GASTROINTESTINAL: Denies abdominal pain. Denies nausea, vomiting, or diarrhea. GENITOURINARY: Patient says she rarely ever makes urine due to her end-stage renal disease. MUSCULOSKELETAL: Denies neck or back pain or joint pain or swelling. SKIN: Denies rash or skin lesions. NEUROLOGICAL: Denies altered mental status or loss of consciousness. Denies headache. Denies weakness or paralysis or loss of use of either side. Denies problems with gait or speech. Denies sensory or motor loss. ALL OTHER SYSTEMS REVIEWED AND NEGATIVE. (BYRON CADE) Physical Exam <BYRON CADE - Last Filed: 01/02/19 05:52> - Vital signs Vitals: Temp Pulse Ox 98.5 F 99 01/02/19 04:10 01/02/19 04:10 - Notes Notes: General Appearance: Well nourished, alert, cooperative, moderate acute distress, no obvious discomfort. Vitals: reviewed, See vital signs table. Head: no swelling or tenderness to the head Eyes: PERRL, EOMI, Conjuctiva clear Mouth: No decreasd moisture Throat: No tonsillar inflammation, No airway obstruction, No lymphadenopathy Neck: Supple, no neck tenderness, No thyromegaly Lungs: No wheezing, bibasilar rales, No rhonci, mild accessory muscle use, good air exchange bilaterally. Heart: Normal rate, Regular rythm, No murmur, no rub Abdomen: Normal BS, soft, No rigidity, No abdominal tenderness, No guarding, no rebound, no abdominal masses, no organomegaly Extremities: good pulses in all extremities, no swelling or tenderness in the extremities, 1+ bilateral lower extremity edema. Skin: warm, dry, appropriate color, no rash Neuro: speech clear, oriented x 3, normal affect, responds appropriately to questions. (BYRON CADE) Course - Laboratory Result Diagrams: 01/02/19 04:17 01/02/19 04:17 <BYRON CADE - Last Filed: 01/02/19 05:52> - Laboratory Result Diagrams: 01/02/19 04:17 01/02/19 06:55 - Consults Dr. Ivy Time consulted: 07:39 Consulted provider: will come to ER - Will make arrangements for Kim to come down and dialyze the patient in the emergency room. Dr. Singleton Time consulted: 07:48 Consulted provider: will see as inpatient - Admit to telemetry after the patient is dialyzed <LEVI PATRICK - Last Filed: 01/02/19 07:55> - Re-evaluation Re-evalutation: 01/02/19 04:12 Patient has bilateral rales. I think her main times in the past. She has histo ry of recurrent pulmonary edema symptoms related to noncompliance with dialysis but sometimes she has this occur even after dialysis. I suspect that she has palmar edema again based on her exam. I placed on BiPAP and she is doing better on BiPAP. Her oxygen saturations are stable on BiPAP. Will obtain EKG. She has some chest tightness and therefore avoid a troponin. She says she is no longer really makes urine and therefore I do not think Lasix will be of any help. I will obtain a chest x-ray being that she said that she is recently had some subjective fevers as possible she could have pneumonia as well. 01/02/19 05:29 Chest x-ray shows bilateral mastoid process. Could be fluid versus pneumonia versus both. Patient does have a leukocytosis and says that she has been bringing up a lot of sputum and she has had what she feels to be fevers at home and therefore we will treat her for possible facility acquired pneumonia. She is allergic to vancomycin therefore I did imipenem for staph coverage. Also placed on Zosyn. Chemistry panel still pending as the original one hemolyzed. 01/02/19 05:52 I spoke with [facility], nursing supervisor [employer], who says that we will have dialysis cap ability today for the patient when she is it is time to admit her. (BYRON CADE) - Vital Signs Vital signs: Temp Pulse Resp BP Pulse Ox 98.5 F 29 H 174/93 H 99 01/02/19 04:10 01/02/19 07:01 01/02/19 07:01 01/02/19 07:01 - Laboratory Laboratory results interpreted by me: 01/02/19 01/02/19 01/02/19 04:17 04:17 06:55 WBC 14.5 H RBC 3.31 L Hgb 9.7 L Hct 29.2 L RDW 15.6 H Seg Neutrophils % 80.3 H Lymphocytes % 11.5 L Absolute Neutrophils 11.7 H Sodium 133.2 L Potassium 7.2 H* Chloride 94 L Carbon Dioxide 19 L Anion Gap 20 H BUN 67 H Creatinine 9.96 H Est GFR ( Amer) 5 L Est GFR (Non-Af Amer) 5 L Glucose 443 H* Calcium 6.0 L* Alkaline Phosphatase 208 H NT-Pro-B Natriuret Pep 7850 H - EKG Interpretation by Me Additional EKG results interpreted by me: 01/02/19 04:14 01/02/19 04:15 01/02/19 04:18 EKG is reviewed and interpreted by me. EKG shows sinus tachycardia with a rate of [address] segment elevation or depression. There is ischemic T wave inversions. NC interval, QRS duration are within normal range. QT interval is prolonged. Old EKG for comparison is from November 28, 2018. (BYRON CADE) Discharge <BYRON CADE - Last Filed: 01/02/19 05:52> - Discharge Admitting Provider: Areli Unit Admitted: Telemetry <LEVI PATRICK - Last Filed: 01/02/19 07:55> - Discharge Clinical Impression: ESRD (end stage renal disease) on dialysis, Hyperglycemia due to type 1 diabetes mellitus, Insulin dependent diabetes mellitus, Bilateral pulmonary infiltrates on CXR, Hypoxemia, Hyperkalemia Hypertension Qualifiers: Hypertension type: essential hypertension Qualified Code(s): I10 - Essential (primary) hypertension Volume overload Qualifiers: Hypervolemia type: unspecified Qualified Code(s): E87.70 - Fluid overload, unspecified Condition: Fair Disposition: ADMITTED INPATIENT Referrals: ERICA IVY MD [ACTIVE STAFF] - Follow up as needed
[2019-01-02] MEDS ORDERED: ONDANSETRON HCL INJ/PF 4 MG/2 ML SDV IV ONE (04:18)
[2019-01-02 04:32] LABS: ABSOLUTE BASOPHILS # (AUTO) 0.1 10^3/uL (0.0-0.2); ABSOLUTE EOSINOPHILS # (AUTO) 0.6 10^3/uL (0.0-0.6); ABSOLUTE LYMPHOCYTES (AUTO) 1.7 10^3/uL (0.5-4.7); ABSOLUTE MONOCYTES (AUTO) 0.5 10^3/uL (0.1-1.4); ABSOLUTE NEUT (AUTO) 11.7 10^3/uL (1.7-8.2); BASOPHILS % (AUTO) 0.9 % (0-2); EOSINOPHILS % (AUTO) 4.1 % (0-6); HEMATOCRIT 29.2 % (36.0-47.0); HEMOGLOBIN 9.7 g/dL (12.0-15.5); LYMPHOCYTES % (AUTO) 11.5 % (13-45); MEAN CORPUSCULAR HEMOGLOBIN 29.4 pg (27.0-33.4); MEAN CORPUSCULAR HGB CONC 33.4 g/dL (32.0-36.0); MEAN CORPUSCULAR VOLUME 88 fl (80-97); MONOCYTES % (AUTO) 3.2 % (3-13); PLATELET COUNT 324 10^3/uL (150-450); RED BLOOD COUNT 3.31 10^6/uL (3.72-5.28); RED CELL DISTRIBUTION WIDTH 15.6 % (11.5-14.0); SEGMENTED NEUTROPHILS % (AUTO) 80.3 % (42-78); TOTAL CELLS COUNTED % (AUTO) 100 %; WHITE BLOOD COUNT 14.5 10^3/uL (4.0-10.5)
--- NOTE | 2019-01-02 04:51 | RADIOLOGY REPORT (SQ) ---
EXAM DESCRIPTION: XR CHEST 1 VIEW COMPLETED DATE/TME: 01/02/2019 04:08 CLINICAL HISTORY: 33 years, Female, dyspnea COMPARISON: 11/28/2018 chest NUMBER OF VIEWS: 1 TECHNIQUE: Portable chest LIMITATIONS: None. FINDINGS: Heart size is stable. Persistent airspace opacities bilaterally. Stable postsurgical change. No pneumothorax. IMPRESSION: Bilateral perihilar airspace opacities could reflect pulmonary edema or pneumonia. copyright 2010 [employer]- All Rights Reserved
[2019-01-02 05:02] LABS: NT PRO BNP 7850 pg/mL (<125)
[2019-01-02 05:03] LABS: TROPONIN I < 0.012 ng/mL
[2019-01-02] MEDS ORDERED: FENTANYL CITRATE INJ/PF 100 MCG/2 ML AMPUL IV ONE (05:23)
[2019-01-02] MEDS ORDERED: PIPERACILLIN/TAZOBACTAM 3.375 GM VIAL IV ONE (05:27)
[2019-01-02] MEDS ORDERED: ERTAPENEM SODIUM INJ 1 GM VIAL IV ONE (05:29)
--- NOTE | 2019-01-02 06:57 | EKG REPORT ---
SEVERITY:- BORDERLINE ECG - SINUS TACHYCARDIA BORDERLINE LEFT AXIS DEVIATION BORDERLINE PROLONGED QT INTERVAL : Confirmed by: Daniela Lemons 02-Jan-2019 06:56:50
[2019-01-02 07:26] LABS: ALANINE AMINOTRANSFERASE 15 U/L (9-52); ALBUMIN 4.5 g/dL (3.5-5.0); ALKALINE PHOSPHATASE 208 U/L (38-126); ASPARTATE AMINO TRANSFERASE 15 U/L (14-36); BILIRUBIN,DIRECT 0.4 mg/dL (0.0-0.4); BILIRUBIN,TOTAL 0.4 mg/dL (0.2-1.3); BLOOD UREA NITROGEN 67 mg/dL (7-20); CHLORIDE 94 mmol/L (98-107); TOTAL PROTEIN 7.8 g/dL (6.3-8.2)
[2019-01-02 07:31] LABS: CARBON DIOXIDE 19 mmol/L (22-30); SODIUM 133.2 mmol/L (137-145)
[2019-01-02 07:34] LABS: ANION GAP 20 (5-19)
[2019-01-02 07:36] LABS: GLUCOSE 443 mg/dL (75-110); POTASSIUM 7.2 mmol/L (3.6-5.0)
[2019-01-02] MEDS ORDERED: INSULIN REG, HUMAN 100 UNIT/ML 3 ML VIAL (PYX) IV ONE (07:38)
[2019-01-02] MEDS: SODIUM BICARBONATE 8.4% INJ 50 MEQ/50 ML DISP.SYRIN IV ONE ×2 (08:03→08:37)
[2019-01-02] MEDS: CALCIUM GLUCONATE 1000 MG/10 ML INJ IV ONE ×2 (08:03→08:38)
[2019-01-02] MEDS: OXYCODONE-ACETAMINOPHEN 5-325 MG TABLET PO PRN (16:51)
[2019-01-02] MEDS: OXYCODONE HCL IR 5 MG TABLET PO PRN (16:51)
[2019-01-02] MEDS ORDERED: (PENDING PHARMACY ID) (Oxycodone Hcl/Acetaminophen [Percocet 7.5-325 Mg Tablet] 1 TAB) PO PRN (19:59)
[2019-01-02] MEDS ORDERED: (PENDING PHARMACY ID) (Promethazine Hcl [Promethazine Hcl] 12.5 MG) PO PRN (19:59)
[2019-01-02] MEDS ORDERED: (PENDING PHARMACY ID) (Oxcarbazepine [Trileptal] 300 MG) PO SCH (20:00)
[2019-01-02] MEDS ORDERED: PAROXETINE HCL 20 MG TABLET PO SCH (20:00)
[2019-01-02] MEDS ORDERED: BUPRENORPHINE HCL 300 MCG PO SCH (20:00)
[2019-01-02] MEDS ORDERED: INSULIN DETEMIR 30 UNIT SQ SCH (20:00)
[2019-01-02] MEDS ORDERED: (PENDING PHARMACY ID) (Nifedipine [Nifedipine Er] 60 MG) PO SCH (20:00)
[2019-01-02] MEDS ORDERED: PROMETHAZINE HCL 25 MG TABLET PO PRN (20:56)
--- NOTE | 2019-01-02 21:07 | PDOC CONSULTATION ---
Consultation Consult Date: 01/02/19 Attending physician:: HILARY HERNANDEZ Consult reason:: I was asked to see the patient due to acute pulmonary edema and hyperkalemia in a patient with ESRD. 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 Patient said that the shortness of breath just started suddenly so she called EMS. She also has some right sided chest pain radiating to her right shoulder. She reports some cough with sputum production. She has a little bit of nausea but denies any vomiting nor abdominal pain. She denies any chest pains. The EMS place her on CPAP. Initial evaluation showed a chest x-ray with findings consistent with either pulmonary edema versus pneumonia. Her initial potassium in the emergency room was also 7.2. Patient's last hemodialysis was last Wednesday. She claims that she has completed her treatment. Due to this findings I arrange for emergent hemodialysis treatment in the emergency room. I saw the patient during dialysis treatment in the emergency room today. She was still on BiPAP during dialysis treatment. She is hemodynamically stable though with acceptable blood pressures. When I saw her she was tolerating the hemodialysis procedure with ultrafiltration set to about 4.5-5 L. Past Medical History Cardiac Medical History: Reports: Coronary Artery Disease, Heart Murmur, Hypertension-primary Pulmonary Medical History: Reports: Asthma, Pneumonia Neurological Medical History: Reports: Migraine, Seizures - only r/t low calcium Endocrine Medical History: Reports: Diabetes Mellitus Type 1 Complications of Diabetes: Reports: Autonomic Neuropathy, Nephropathy, Retinopathy Renal/ Medical History: Reports: End Stage Renal Disease - On hemodialysis MWF, Hyperkalemia, Hyperphosphatemia, Secondary Hyperparathyroidism Malignancy Medical History: GI Medical History: Musculoskeltal Medical History: Skin Medical History: Reports: Psoriasis Psychiatric Medical History: Reports: Depression Infectious Medical History: Hematology Medical History: Reports Anemia of Chronic Kidney Disease Past Surgical History Past Surgical History: Reports: Appendectomy, Cholecystectomy, Dialysis Access Surgery AVF, Vascular Surgery - Lt AV Fistula and graft; Rt AV fistula Social History Information Source: Patient, [facility] Records Smoking Status: Never Smoker Frequency of Alcohol Use: None Hx Recreational Drug Use: No Drugs: None Hx Prescription Drug Abuse: No Family History Family History: Other - No kidney disease in the family Parental Family History Reviewed: Yes Children Family History Reviewed: Yes Sibling(s) Family History Reviewed.: Yes Medication/Allergy Home Medications: Buprenorphine HCl [Belbuca] 300 mcg PO Q12 01/02/19 Carvedilol [Coreg 12.5 mg Tablet] 12.5 mg PO BID 01/02/19 Clonidine HCl [Catapres 0.1 mg Tablet] 0.1 mg PO TID 01/02/19 Doxepin HCl [Silenor] 6 mg PO QHS 01/02/19 Furosemide [Lasix 80 mg Tablet] 80 mg PO TID 01/02/19 Insulin Detemir [Levemir] 30 units SQ BID 01/02/19 Nifedipine [Nifedipine ER] 60 mg PO BID 01/02/19 Omeprazole 40 mg PO DAILY 01/02/19 Oxcarbazepine [Trileptal] 300 mg PO BID 01/02/19 Oxycodone HCl/Acetaminophen [Percocet 7.5-325 mg Tablet] 1 tab PO Q6HP PRN 01/02/19 Paroxetine HCl [Paxil 20 mg Tablet] 60 mg PO QHS 01/02/19 Promethazine HCl 12.5 mg PO Q12HP PRN 01/02/19 Allergies/Adverse Reactions: aspirin [Aspirin] Allergy (Verified 11/28/18 08:13) Anaphylaxis ciprofloxacin [From Cipro] Allergy (Verified 11/28/18 08:13) Anaphylaxis clindamycin [Clindamycin] Allergy (Verified 11/28/18 08:13) hydrocodone [From Vicodin] Allergy (Verified 11/28/18 08:13) ibuprofen [From Motrin] Allergy (Verified 11/28/18 08:13) Anaphylaxis lidocaine [From Lidoderm] Allergy (Verified 11/28/18 08:13) Generalized rash tramadol HCl [From Ultram] Allergy (Verified 11/28/18 08:13) vancomycin [Vancomycin] Allergy (Verified 11/28/18 08:13) Shortness of Breath nitroglycerin [Nitroglycerin] Adverse Reaction (Intermediate, Verified 11/28/18 08:13) Joint pain Review of Systems All systems: reviewed and no additional remarkable complaints except as stated Review of Systems: Constitutional: ABSENT: chills, fatigue, fever(s), headache(s), weight gain, weight loss Eyes: ABSENT: visual disturbances Ears: ABSENT: hearing changes Cardiovascular: ABSENT: Edema, orthropnea, palpitations; admits shortness of breath and chest tightness Respiratory: ABSENT: Hemoptysis; admits shortness of breath and cough Gastrointestinal: ABSENT: abdominal pain, constipation, diarrhea, hematemesis, hematochezia, vomiting; admits nausea Genitourinary: ABSENT: dysuria, hematuria Musculoskeletal: ABSENT: joint swelling Integumentary: ABSENT: rash, wounds Neurological: ABSENT: abnormal gait, abnormal speech, confusion, dizziness, focal weakness, numbness, syncope Psychiatric: ABSENT: anxiety, depression Endocrine: ABSENT: cold intolerance, heat intolerance, polydipsia, polyuria Hematologic/Lymphatic: ABSENT: easy bleeding, easy bruising, lymphadenopathy Physical Exam Vital Signs: Temp Pulse Resp BP Pulse Ox 98.2 F 90 15 118/52 L 99 01/02/19 19:13 01/02/19 19:13 01/02/19 19:13 01/02/19 19:13 01/02/19 19:13 Intake & Output 01/01/19 01/02/19 01/03/19 06:59 06:59 06:59 Intake Total 320 Output Total 4800 Balance -4480 Weight 122.3 kg Vitals during dialysis: Blood pressure 122/57, heart rate of 105, respiratory rate of 19-20, oxygen saturation 100%, blood flow rate of 400 mL/min, dialysate flow rate of 800 mL/min. Exam: General appearance: Patient currently on BiPAP, well-developed, well-nourished Head exam: PRESENT: atraumatic, normocephalic Eye exam: PRESENT: Conjunctiva pale, EOMI, PERRLA. Positive periorbital edema ABSENT: conjunctival injection, scleral icterus Mouth exam: PRESENT: moist, neck supple, tongue midline Neck exam: PRESENT: full ROM. ABSENT: carotid bruit, JVD, lymphadenopathy, t hyromegaly Respiratory exam: PRESENT: Diminished to auscultation bilaterally. Bibasilar crackles ABSENT: Rhonchi, stridor, wheezes Cardiovascular exam: PRESENT: RRR, +S1, +S2. ABSENT: systolic murmur Pulses: PRESENT: normal radial pulses, normal dorsalis pedis pulses GI/Abdominal exam: PRESENT: normal bowel sounds, soft. ABSENT: guarding, mass, tenderness Rectal exam: Deferred Extremities exam: PRESENT: full ROM. ABSENT: calf tenderness, pedal edema Musculoskeletal: PRESENT: full ROM. ABSENT: deformity Neurological exam: PRESENT: alert, Awake, Oriented to person, Oriented to place, Oriented to time, reflexes normal, CN II-XII grossly intact. ABSENT: motor sensory deficit Psychiatric exam: PRESENT: appropriate affect, normal mood. ABSENT: homicidal ideation, suicidal ideation Skin exam: PRESENT: intact, dry, warm. ABSENT: rash Results Laboratory Results: 01/02/19 04:17 01/02/19 06:55 01/02/19 01/02/19 01/02/19 04:17 04:17 06:55 WBC 14.5 H RBC 3.31 L Hgb 9.7 L Hct 29.2 L MCV 88 MCH 29.4 MCHC 33.4 RDW 15.6 H Plt Count 324 Seg Neutrophils % 80.3 H Lymphocytes % 11.5 L Monocytes % 3.2 Eosinophils % 4.1 Basophils % 0.9 Absolute Neutrophils 11.7 H Absolute Lymphocytes 1.7 Absolute Monocytes 0.5 Absolute Eosinophils 0.6 Absolute Basophils 0.1 Sodium Cancelled 133.2 L Potassium Cancelled 7.2 H* Chloride Cancelled 94 L Carbon Dioxide Cancelled 19 L Anion Gap Cancelled 20 H BUN Cancelled 67 H Creatinine Cancelled 9.96 H Est GFR ( Amer) Cancelled 5 L Est GFR (Non-Af Amer) Cancelled 5 L Glucose Cancelled 443 H* Calcium Cancelled 6.0 L* Total Bilirubin Cancelled 0.4 AST Cancelled 15 ALT Cancelled 15 Alkaline Phosphatase Cancelled 208 H Total Protein Cancelled 7.8 Albumin Cancelled 4.5 01/02/19 04:17 Troponin I < 0.012 NT-Pro-B Natriuret Pep 7850 H Impressions: Chest X-Ray 01/02/19 04:08 IMPRESSION: Bilateral perihilar airspace opacities could reflect pulmonary edema or pneumonia. copyright 2010 [employer]- All Rights Reserved Assessment & Plan - Diagnosis (1) Acute hypoxemic respiratory failure Is this a current diagnosis for this admission?: Yes Plan: Patient presents with bilateral opacities on chest x-ray possibly due to acute pulmonary edema versus pneumonia. Patient requiring BiPAP on admission. (2) Acute pulmonary edema Is this a current diagnosis for this admission?: Yes Plan: Patient required emergent hemodialysis treatment with ultrafiltration. (3) ESRD (end stage renal disease) on dialysis Is this a current diagnosis for this admission?: Yes Plan: We did emergent hemodialysis in the emergency room. We did dialysis today for 4 hours, using the patient's AV graft, with 1K bath for the first 2 hours followed by 2 hours of 2 potassium bath, blood flow rate of 400-450 mL per minute, dialysate flow rate of 800 mL per minute, ultrafiltration 4-5 L as tolerated, no heparin and no Procrit for today. Patient was monitored closely during dialysis treatment. Patient was able to tolerate ultrafiltration. (4) Hyperkalemia Is this a current diagnosis for this admission?: Yes Plan: Patient was dialyzed today with low potassium bath as above. (5) Hypertension Qualifiers: Hypertension type: essential hypertension Qualified Code(s): I10 - Essential (primary) hypertension Is this a current diagnosis for this admission?: Yes (6) Anemia in chronic kidney disease (CKD) Is this a current diagnosis for this admission?: Yes Plan: Procrit as needed during dialysis treatment. (7) Diabetes mellitus type 1 Qualifiers: Diabetes mellitus complication status: with unspecified complications Qualified Code(s): E10.8 - Type 1 diabetes mellitus with unspecified complications Is this a current diagnosis for this admission?: Yes - Notes Notes: Thank you very much for the consultation. We will follow patient with you. - Time Time Spent: Greater than 70 Minutes
--- NOTE | 2019-01-02 21:35 | PDOC H&P ---
History of Present Illness Admission Date/PCP: 01/02/19 08:39 K V GLENNY OLIVARES MD History of Present Illness: ERICH GOODMAN is a 33 year old female she has end-stage kidney disease on [facility] hemodialysis she was transferred to the emergency room by paramedics for evaluation of shortness of breath of acute onset, she stated that the shortness of breath started suddenly so she called EMS she also had nonspecific right-sided chest pain. In the emergency room she was evaluated, a chest x-ray was done that demonstrated findings consistent with pulmonary edema versus pneumonia. The metabolic panel revealed hyperkalemia with serum potassium of 7.2, she needed emergent hemodialysis this was provided in the emergency room by the nephrology team. Patient has had multiple hospitalization she usually present in this manner on almost always after she was hemodialyzed she feels be tter. She has abdominal comorbid conditions including type 1 diabetes mellitus chronic pain on chronic opioid therapy, hypertension Past Medical History Cardiac Medical History: Reports: Congestive Heart Failure, Coronary Artery Disease, Hypertension, Heart Murmur Pulmonary Medical History: Reports: Asthma, Pneumonia Neurological Medical History: Reports: Migraine, Seizures - only r/t low calcium Endocrine Medical History: Reports: Diabetes Mellitus Type 1 Renal/ Medical History: Reports: End Stage Renal Disease - On hemodialysis MWF Malignancy Medical History: GI Medical History: Musculoskeltal Medical History: Skin Medical History: Reports: Psoriasis Psychiatric Medical History: Reports: Depression Hematology: Reports: Anemia Infectious Medical History: Past Surgical History Past Surgical History: Reports: Appendectomy, Cholecystectomy, Vascular Surgery - Lt AV Fistula and graft; Rt AV fistula Social History Smoking Status: Never Smoker Frequency of Alcohol Use: None Hx Recreational Drug Use: No Drugs: None Hx Prescription Drug Abuse: No Family History Family History: Reviewed & Not Pertinent Parental Family History Reviewed: Yes Children Family History Reviewed: Yes Sibling(s) Family History Reviewed.: Yes Medication/Allergy Home Medications: Buprenorphine HCl [Belbuca] 300 mcg PO Q12 01/02/19 Carvedilol [Coreg 12.5 mg Tablet] 12.5 mg PO BID 01/02/19 Clonidine HCl [Catapres 0.1 mg Tablet] 0.1 mg PO TID 01/02/19 Doxepin HCl [Silenor] 6 mg PO QHS 01/02/19 Furosemide [Lasix 80 mg Tablet] 80 mg PO TID 01/02/19 Insulin Detemir [Levemir] 30 units SQ BID 01/02/19 Nifedipine [Nifedipine ER] 60 mg PO BID 01/02/19 Omeprazole 40 mg PO DAILY 01/02/19 Oxcarbazepine [Trileptal] 300 mg PO BID 01/02/19 Oxycodone HCl/Acetaminophen [Percocet 7.5-325 mg Tablet] 1 tab PO Q6HP PRN 01/02/19 Paroxetine HCl [Paxil 20 mg Tablet] 60 mg PO QHS 01/02/19 Promethazine HCl 12.5 mg PO Q12HP PRN 01/02/19 Allergies/Adverse Reactions: aspirin [Aspirin] Allergy (Verified 11/28/18 08:13) Anaphylaxis ciprofloxacin [From Cipro] Allergy (Verified 11/28/18 08:13) Anaphylaxis clindamycin [Clindamycin] Allergy (Verified 11/28/18 08:13) hydrocodone [From Vicodin] Allergy (Verified 11/28/18 08:13) ibuprofen [From Motrin] Allergy (Verified 11/28/18 08:13) Anaphylaxis lidocaine [From Lidoderm] Allergy (Verified 11/28/18 08:13) Generalized rash tramadol HCl [From Ultram] Allergy (Verified 11/28/18 08:13) vancomycin [Vancomycin] Allergy (Verified 11/28/18 08:13) Shortness of Breath nitroglycerin [Nitroglycerin] Adverse Reaction (Intermediate, Verified 11/28/18 08:13) Joint pain Review of Systems Constitutional: ABSENT: chills, fever(s), headache(s), weight gain, weight loss Eyes: ABSENT: visual disturbances Ears: ABSENT: hearing changes Cardiovascular: PRESENT: dyspnea on exertion. ABSENT: chest pain, edema, orthropnea, palpitations Respiratory: PRESENT: dyspnea. ABSENT: cough, hemoptysis Gastrointestinal: ABSENT: abdominal pain, constipation, diarrhea, hematemesis, hematochezia, nausea, vomiting Genitourinary: ABSENT: dysuria, hematuria Musculoskeletal: ABSENT: joint swelling Integumentary: ABSENT: rash, wounds Neurological: ABSENT: abnormal gait, abnormal speech, confusion, dizziness, focal weakness, syncope Psychiatric: ABSENT: anxiety, depression, homidical ideation, suicidal ideation Endocrine: ABSENT: cold intolerance, heat intolerance, menstrual abnormalities, polydipsia, polyuria Hematologic/Lymphatic: ABSENT: easy bleeding, easy bruising, lymphadenopathy Physical Exam Vital Signs: Temp Pulse Resp BP Pulse Ox 98.2 F 90 15 118/52 L 99 01/02/19 19:13 01/02/19 19:13 01/02/19 19:13 01/02/19 19:13 01/02/19 19:13 Intake & Output 01/01/19 01/02/19 01/03/19 06:59 06:59 06:59 Intake Total 320 Output Total 4800 Balance -4480 Weight 122.3 kg General appearance: PRESENT: no acute distress Head exam: PRESENT: atraumatic, normocephalic Eye exam: PRESENT: conjunctiva pink, EOMI, PERRLA Ear exam: PRESENT: normal external ear exam Mouth exam: PRESENT: moist, tongue midline Neck exam: PRESENT: full ROM Respiratory exam: PRESENT: clear to auscultation freddy Cardiovascular exam: PRESENT: RRR, +S1, +S2 Vascular exam: PRESENT: normal capillary refill GI/Abdominal exam: PRESENT: normal bowel sounds, soft Rectal exam: PRESENT: deferred Neurological exam: PRESENT: alert, awake, oriented to person, oriented to place, oriented to time, oriented to situation, CN II-XII grossly intact Psychiatric exam: PRESENT: appropriate affect, normal mood Skin exam: PRESENT: dry, intact, warm Results Laboratory Results: 01/02/19 04:17 01/02/19 06:55 01/02/19 01/02/19 01/02/19 04:17 04:17 06:55 WBC 14.5 H RBC 3.31 L Hgb 9.7 L Hct 29.2 L MCV 88 MCH 29.4 MCHC 33.4 RDW 15.6 H Plt Count 324 Seg Neutrophils % 80.3 H Lymphocytes % 11.5 L Monocytes % 3.2 Eosinophils % 4.1 Basophils % 0.9 Absolute Neutrophils 11.7 H Absolute Lymphocytes 1.7 Absolute Monocytes 0.5 Absolute Eosinophils 0.6 Absolute Basophils 0.1 Sodium Cancelled 133.2 L Potassium Cancelled 7.2 H* Chloride Cancelled 94 L Carbon Dioxide Cancelled 19 L Anion Gap Cancelled 20 H BUN Cancelled 67 H Creatinine Cancelled 9.96 H Est GFR ( Amer) Cancelled 5 L Est GFR (Non-Af Amer) Cancelled 5 L Glucose Cancelled 443 H* Calcium Cancelled 6.0 L* Total Bilirubin Cancelled 0.4 AST Cancelled 15 ALT Cancelled 15 Alkaline Phosphatase Cancelled 208 H Total Protein Cancelled 7.8 Albumin Cancelled 4.5 01/02/19 04:17 Troponin I < 0.012 NT-Pro-B Natriuret Pep 7850 H Impressions: Chest X-Ray 01/02/19 04:08 IMPRESSION: Bilateral perihilar airspace opacities could reflect pulmonary edema or pneumonia. copyright 2010 [employer]- All Rights Reserved Assessment & Plan - Diagnosis (1) Acute pulmonary edema Is this a current diagnosis for this admission?: Yes Plan: Admitted for hemodialysis (2) Hyperkalemia Is this a current diagnosis for this admission?: Yes (3) Diabetes mellitus type 1 Qualifiers: Diabetes mellitus complication status: with unspecified complications Qualified Code(s): E10.8 - Type 1 diabetes mellitus with unspecified complications Is this a current diagnosis for this admission?: Yes Plan: Continue insulin per sliding scale
[2019-01-02] MEDS ORDERED: (PENDING PHARMACY ID) (Doxepin Hcl [Silenor] 6 MG) PO SCH (22:00)
[2019-01-02] MEDS: NIFEDIPINE 30 MG TAB.ER.24 PO SCH (22:04)
[2019-01-02] MEDS: PAROXETINE HCL 20 MG TABLET PO SCH (22:04)
[2019-01-02] MEDS: FUROSEMIDE 80 MG TABLET PO SCH (22:04)
[2019-01-02] MEDS: OXCARBAZEPINE 150 MG TABLET PO SCH (22:04)
[2019-01-02] MEDS: CLONIDINE HCL 0.1 MG TABLET PO SCH (22:05)
[2019-01-02] MEDS: INSULIN DETEMIR 100 UNIT/ML 3 ML PEN SUBCUT SCH (22:05)
[2019-01-02] MEDS: CARVEDILOL 12.5 MG TABLET PO SCH (22:05)
[2019-01-03] MEDS: LANSOPRAZOLE 30 MG TAB.RAP.DR PO SCH (05:02)
[2019-01-03] MEDS: CLONIDINE HCL 0.1 MG TABLET PO SCH ×3 (05:02→21:53)
[2019-01-03] MEDS ORDERED: GLUCAGON,HUMAN RECOMB 1 MG INJ IM PRN (09:30)
[2019-01-03] MEDS ORDERED: DEXTROSE 40% GEL 15 GM TUBE PO PRN (09:30)
[2019-01-03] MEDS ORDERED: DEXTROSE 50%-WATER SYRINGE 12.5 GM/25 ML DOSE IV PRN (09:30)
[2019-01-03] MEDS ORDERED: DEXTROSE 50%-WATER SYRINGE 25 GM/50 ML DOSE IV PRN (09:30)
[2019-01-03] MEDS ORDERED: DEXTROSE 40% GEL 15 GM TUBE X 2 PO PRN (09:30)
[2019-01-03] MEDS: OXYCODONE HCL IR 5 MG TABLET PO PRN (09:32)
[2019-01-03] MEDS: OXCARBAZEPINE 150 MG TABLET PO SCH ×2 (09:33→21:53)
[2019-01-03] MEDS: FUROSEMIDE 80 MG TABLET PO SCH ×3 (09:33→17:35)
[2019-01-03] MEDS: NIFEDIPINE 30 MG TAB.ER.24 PO SCH ×2 (09:33→21:53)
[2019-01-03] MEDS: OXYCODONE-ACETAMINOPHEN 5-325 MG TABLET PO PRN ×2 (09:33→21:56)
[2019-01-03] MEDS: CARVEDILOL 12.5 MG TABLET PO SCH ×2 (09:33→21:53)
[2019-01-03] MEDS: INSULIN DETEMIR 100 UNIT/ML 3 ML PEN SUBCUT SCH ×2 (09:34→21:57)
[2019-01-03] MEDS: INSULIN LISPRO 100 UNIT/ML 3 ML VIAL SUBCUT SCH ×3 (11:13→21:56)
--- NOTE | 2019-01-03 20:13 | PDOC PROGRESS REPORT ---
Subjective Progress Note for:: 01/03/19 Subjective:: Patient is seen by the bedside, she continues to require supplemental oxygen Reason For Visit: ESRD,HYPERGLYCEMIA,POSS PNEUMONIA,VOLUME OVERLOAD Physical Exam Vital Signs: Temp Pulse Resp BP Pulse Ox 98.2 F 74 17 112/61 99 01/03/19 14:58 01/03/19 19:00 01/03/19 14:58 01/03/19 17:34 01/03/19 14:58 Intake & Output 01/02/19 01/03/19 01/04/19 06:59 06:59 06:59 Intake Total 420 318 Output Total 4800 Balance -4380 318 Weight 122.3 kg 122.2 kg General appearance: PRESENT: no acute distress Eye exam: PRESENT: PERRLA Respiratory exam: PRESENT: clear to auscultation freddy Cardiovascular exam: PRESENT: +S1, +S2 GI/Abdominal exam: PRESENT: soft Neurological exam: PRESENT: alert Results Laboratory Results: 01/02/19 04:17 01/02/19 06:55 01/02/19 04:17 Troponin I < 0.012 NT-Pro-B Natriuret Pep 7850 H Impressions: Chest X-Ray 01/02/19 04:08 IMPRESSION: Bilateral perihilar airspace opacities could reflect pulmonary edema or pneumonia. copyright 2010 [employer]- All Rights Reserved Assessment & Plan - Diagnosis (1) Acute pulmonary edema Is this a current diagnosis for this admission?: Yes Plan: Improved (2) Hyperkalemia Is this a current diagnosis for this admission?: Yes (3) Diabetes mellitus type 1 Qualifiers: Diabetes mellitus complication status: with unspecified complications Qualified Code(s): E10.8 - Type 1 diabetes mellitus with unspecified complications Is this a current diagnosis for this admission?: Yes Plan: Continue insulin per sliding scale
[2019-01-03] MEDS: PAROXETINE HCL 20 MG TABLET PO SCH (21:53)
[2019-01-04] MEDS ORDERED: NORMAL SALINE 1000 ML 1,000 ML IV PRN (05:00)
[2019-01-04] MEDS ORDERED: EPOETIN ALFA INJ 20000 UNIT/1 ML VIAL (RENAL) IV PRN (05:00)
[2019-01-04] MEDS: LANSOPRAZOLE 30 MG TAB.RAP.DR PO SCH (05:39)
[2019-01-04] MEDS: CLONIDINE HCL 0.1 MG TABLET PO SCH ×3 (05:40→21:15)
[2019-01-04 05:42] LABS: ABSOLUTE BASOPHILS # (AUTO) 0.1 10^3/uL (0.0-0.2); ABSOLUTE EOSINOPHILS # (AUTO) 0.6 10^3/uL (0.0-0.6); ABSOLUTE LYMPHOCYTES (AUTO) 2.6 10^3/uL (0.5-4.7); ABSOLUTE MONOCYTES (AUTO) 0.5 10^3/uL (0.1-1.4); ABSOLUTE NEUT (AUTO) 4.4 10^3/uL (1.7-8.2); BASOPHILS % (AUTO) 0.7 % (0-2); EOSINOPHILS % (AUTO) 7.5 % (0-6); HEMATOCRIT 26.3 % (36.0-47.0); HEMOGLOBIN 8.8 g/dL (12.0-15.5); LYMPHOCYTES % (AUTO) 31.7 % (13-45); MEAN CORPUSCULAR HEMOGLOBIN 29.3 pg (27.0-33.4); MEAN CORPUSCULAR HGB CONC 33.5 g/dL (32.0-36.0); MEAN CORPUSCULAR VOLUME 87 fl (80-97); MONOCYTES % (AUTO) 6.2 % (3-13); PLATELET COUNT 302 10^3/uL (150-450); RED BLOOD COUNT 3.01 10^6/uL (3.72-5.28); RED CELL DISTRIBUTION WIDTH 15.6 % (11.5-14.0); SEGMENTED NEUTROPHILS % (AUTO) 53.9 % (42-78); TOTAL CELLS COUNTED % (AUTO) 100 %; WHITE BLOOD COUNT 8.2 10^3/uL (4.0-10.5)
[2019-01-04 06:28] LABS: BLOOD UREA NITROGEN 68 mg/dL (7-20); GLUCOSE 189 mg/dL (75-110); POTASSIUM 5.5 mmol/L (3.6-5.0)
[2019-01-04 06:34] LABS: CARBON DIOXIDE 25 mmol/L (22-30); CHLORIDE 89 mmol/L (98-107)
[2019-01-04] MEDS: INSULIN LISPRO 100 UNIT/ML 3 ML VIAL SUBCUT SCH ×4 (07:01→21:12)
[2019-01-04 07:18] LABS: SODIUM 135.4 mmol/L (137-145)
[2019-01-04 07:21] LABS: ANION GAP 21 (5-19)
[2019-01-04 07:22] LABS: CALCIUM 6.3 mg/dL (8.4-10.2)
[2019-01-04] MEDS ORDERED: HEPARIN SOD (PORCINE) 1,000 UNIT/ML 10 ML VIAL IV PRN ×2 (08:52→09:10)
[2019-01-04] MEDS ORDERED: DIPHENHYDRAMINE HCL 50 MG/ML VIAL IV ONE ×2 (12:00→12:15)
[2019-01-04] MEDS ORDERED: ONDANSETRON HCL INJ/PF 4 MG/2 ML SDV IV PRN (14:09)
[2019-01-04] MEDS: INSULIN DETEMIR 100 UNIT/ML 3 ML PEN SUBCUT SCH ×2 (15:39→21:19)
[2019-01-04] MEDS: CARVEDILOL 12.5 MG TABLET PO SCH ×2 (15:40→21:13)
[2019-01-04] MEDS: NIFEDIPINE 30 MG TAB.ER.24 PO SCH ×2 (15:41→21:13)
[2019-01-04] MEDS: FUROSEMIDE 80 MG TABLET PO SCH ×3 (15:41→18:30)
[2019-01-04] MEDS: OXCARBAZEPINE 150 MG TABLET PO SCH ×2 (15:41→21:12)
[2019-01-04] MEDS: DOCUSATE SODIUM 100 MG CAPSULE PO SCH ×2 (15:44→21:13)
[2019-01-04] MEDS ORDERED: CALCIUM CARBONATE 500 MG TABLET PO SCH (18:00)
--- NOTE | 2019-01-04 19:53 | PDOC PROGRESS REPORT ---
Subjective Progress Note for:: 01/04/19 Subjective:: Patient and hemodialysis today over 4 L of fluid was removed Reason For Visit: ESRD,HYPERGLYCEMIA,POSS PNEUMONIA,VOLUME OVERLOAD Physical Exam Vital Signs: Temp Pulse Resp BP Pulse Ox 99.2 F 85 18 132/67 H 100 01/04/19 15:27 01/04/19 15:27 01/04/19 15:27 01/04/19 15:27 01/04/19 15:27 Intake & Output 01/03/19 01/04/19 01/05/19 06:59 06:59 06:59 Intake Total 117 299 1424 Output Total 4800 Balance -4380 318 1020 Weight 122.2 kg 122.5 kg General appearance: PRESENT: no acute distress Eye exam: PRESENT: PERRLA Respiratory exam: PRESENT: clear to auscultation freddy Cardiovascular exam: PRESENT: +S1, +S2 GI/Abdominal exam: PRESENT: soft Neurological exam: PRESENT: alert Results Laboratory Results: 01/04/19 05:00 01/04/19 05:00 01/04/19 01/04/19 01/04/19 05:00 05:00 18:50 WBC 8.2 RBC 3.01 L Hgb 8.8 L Hct 26.3 L MCV 87 MCH 29.3 MCHC 33.5 RDW 15.6 H Plt Count 302 Seg Neutrophils % 53.9 Lymphocytes % 31.7 Monocytes % 6.2 Eosinophils % 7.5 H Basophils % 0.7 Absolute Neutrophils 4.4 Absolute Lymphocytes 2.6 Absolute Monocytes 0.5 Absolute Eosinophils 0.6 Absolute Basophils 0.1 Sodium 135.4 L Potassium 5.5 H Chloride 89 L Carbon Dioxide 25 Anion Gap 21 H BUN 68 H Creatinine 9.71 H Est GFR ( Amer) 6 L Est GFR (Non-Af Amer) 5 L Glucose 189 H Calcium 6.3 L* PTH Intact 1254.0 H 01/02/19 04:17 Troponin I < 0.012 NT-Pro-B Natriuret Pep 7850 H Impressions: Chest X-Ray 01/02/19 04:08 IMPRESSION: Bilateral perihilar airspace opacities could reflect pulmonary edema or pneumonia. copyright 2010 [employer]- All Rights Reserved Assessment & Plan - Diagnosis (1) Acute pulmonary edema Is this a current diagnosis for this admission?: Yes (2) Hyperkalemia Is this a current diagnosis for this admission?: Yes (3) Diabetes mellitus type 1 Qualifiers: Diabetes mellitus complication status: with unspecified complications Qualified Code(s): E10.8 - Type 1 diabetes mellitus with unspecified complications Is this a current diagnosis for this admission?: Yes (4) Hypocalcemia Is this a current diagnosis for this admission?: Yes Plan: Start calcium (5) Secondary hyperparathyroidism (of renal origin) Is this a current diagnosis for this admission?: Yes Plan: Start calcitriol
--- NOTE | 2019-01-04 20:20 | PDOC PROGRESS REPORT ---
Subjective Progress Note for:: 01/04/19 Subjective:: I saw the patient on dialysis this morning at around 11 AM. She looks so much better compared to 2 days ago. She is now on nasal cannula and claims she feels better. He was tolerating dialysis very well when I saw her. She was itching all over her fistula because of the tape so she requested for Benadryl. Reason For Visit: ESRD,HYPERGLYCEMIA,POSS PNEUMONIA,VOLUME OVERLOAD Physical Exam Vital Signs: Temp Pulse Resp BP Pulse Ox 99.2 F 85 18 132/67 H 100 01/04/19 15:27 01/04/19 15:27 01/04/19 15:27 01/04/19 15:27 01/04/19 15:27 Intake & Output 01/03/19 01/04/19 01/05/19 06:59 06:59 06:59 Intake Total 039 264 3846 Output Total 4800 4900 Balance -4380 318 -3880 Weight 122.2 kg 122.5 kg Vitals during dialysis: Blood pressure 119/57, heart rate of 81, blood flow rate of 400 mL/min, dialysate flow rate of 800 mL/min. Exam: General appearance: PRESENT: no acute distress, cooperative, well-developed, well-nourished Head exam: PRESENT: atraumatic, normocephalic, left facial swelling and periorb ital edema Eye exam: PRESENT: conjunctiva slightly pale, PERRLA. ABSENT: scleral icterus Neck exam: ABSENT: JVD Respiratory exam: PRESENT: Normal breath sounds. ABSENT: crackles, rales, rhonchi, unlabored, wheezes Cardiovascular exam: PRESENT: Regular rate rhythm -+S1, +S2. ABSENT: diastolic murmur, systolic murmur GI/Abdominal exam: PRESENT: normal bowel sounds, soft. ABSENT: guarding, mass, tenderness Extremities exam: ABSENT: No edema Neurological exam: PRESENT: alert, awake, oriented to person, place and time. Skin exam: PRESENT: dry, warm, Results Laboratory Results: 01/04/19 05:00 01/04/19 05:00 01/04/19 01/04/19 01/04/19 05:00 05:00 18:50 WBC 8.2 RBC 3.01 L Hgb 8.8 L Hct 26.3 L MCV 87 MCH 29.3 MCHC 33.5 RDW 15.6 H Plt Count 302 Seg Neutrophils % 53.9 Lymphocytes % 31.7 Monocytes % 6.2 Eosinophils % 7.5 H Basophils % 0.7 Absolute Neutrophils 4.4 Absolute Lymphocytes 2.6 Absolute Monocytes 0.5 Absolute Eosinophils 0.6 Absolute Basophils 0.1 Sodium 135.4 L Potassium 5.5 H Chloride 89 L Carbon Dioxide 25 Anion Gap 21 H BUN 68 H Creatinine 9.71 H Est GFR ( Amer) 6 L Est GFR (Non-Af Amer) 5 L Glucose 189 H Calcium 6.3 L* PTH Intact 1254.0 H 01/02/19 04:17 Troponin I < 0.012 NT-Pro-B Natriuret Pep 7850 H Impressions: Chest X-Ray 01/02/19 04:08 IMPRESSION: Bilateral perihilar airspace opacities could reflect pulmonary edema or pneumonia. copyright 2010 [employer]- All Rights Reserved Assessment & Plan - Diagnosis (1) ESRD (end stage renal disease) on dialysis Is this a current diagnosis for this admission?: Yes Plan: We did dialysis today for 4 hours, using the patient's right upper arm AV fistula, with 2 potassium bath with 3 calcium bath, blood flow rate of 400 mL per minute, dialysate flow rate of 800 mL per minute, ultrafiltration 4.5-5 L as tolerated, low-dose heparin and Procrit with 20,000 units during dialysis intravenously. Patient tolerated dialysis well without any problems. Patient was given Benadryl 25 mg IV for itching due to the tape over her AV fistula. (2) Acute hypoxemic respiratory failure Is this a current diagnosis for this admission?: Yes Plan: Resolved with ultrafiltration. (3) Acute pulmonary edema Is this a current diagnosis for this admission?: Yes Plan: Resolving on dialysis. We will repeat chest x-ray in the morning. (4) Hyperkalemia Is this a current diagnosis for this admission?: Yes Plan: Improved via dialysis. (5) Hypertension Qualifiers: Hypertension type: essential hypertension Qualified Code(s): I10 - Essential (primary) hypertension Is this a current diagnosis for this admission?: Yes (6) Anemia in chronic kidney disease (CKD) Is this a current diagnosis for this admission?: Yes Plan: Procrit given to dialysis today. (7) Diabetes mellitus type 1 Qualifiers: Diabetes mellitus complication status: with unspecified complications Qualified Code(s): E10.8 - Type 1 diabetes mellitus with unspecified complications Is this a current diagnosis for this admission?: Yes - Time Time with patient: 15-25 minutes
[2019-01-04] MEDS: CALCITRIOL 0.25 MCG CAPSULE PO SCH (21:11)
[2019-01-04] MEDS: PAROXETINE HCL 20 MG TABLET PO SCH (21:12)
[2019-01-04] MEDS: OXYCODONE-ACETAMINOPHEN 5-325 MG TABLET PO PRN (21:13)
[2019-01-04] MEDS: OXYCODONE HCL IR 5 MG TABLET PO PRN (21:13)
[2019-01-04] MEDS: CALCIUM CARBONATE 500 MG TABLET PO SCH (21:15)
[2019-01-04] MEDS: CHOLECALCIFEROL (D3) 400 UNIT TABLET PO SCH (21:19)
[2019-01-05] MEDS: CLONIDINE HCL 0.1 MG TABLET PO SCH ×3 (05:07→21:49)
[2019-01-05] MEDS: LANSOPRAZOLE 30 MG TAB.RAP.DR PO SCH (05:07)
[2019-01-05] MEDS: CALCIUM CARBONATE 500 MG TABLET PO SCH ×3 (05:07→21:49)
[2019-01-05] MEDS: INSULIN LISPRO 100 UNIT/ML 3 ML VIAL SUBCUT SCH ×4 (08:30→21:52)
--- NOTE | 2019-01-05 09:15 | RADIOLOGY REPORT (SQ) ---
EXAM DESCRIPTION: CHEST 2 VIEWS COMPLETED DATE/TIME: 01/05/2019 9:03 am REASON FOR STUDY: pulmonary edema COMPARISON: Chest films 01/02/2019, 11/28/2018 EXAM PARAMETERS: NUMBER OF VIEWS: two views TECHNIQUE: Digital Frontal and Lateral radiographic views of the chest acquired. RADIATION DOSE: NA LIMITATIONS: none FINDINGS: LUNGS AND PLEURA: Significant improvement in appearance of the chest compared to both prio r studies. Near complete clearing of the alveolar and interstitial pulmonary edema. No residual ple ural effusion. No pneumothorax. MEDIASTINUM AND HILAR STRUCTURES: No masses or contour abnormalities. HEART AND VASCULAR STRUCTURES: Stable moderate cardiomegaly BONES: No acute findings. HARDWARE: Right subclavian vascular stent OTHER: No other significant finding. IMPRESSION: Resolved pulmonary edema/ fluid overload pattern TECHNICAL DOCUMENTATION: JOB ID: [id number] [employer]- All Rights Reserved Reading location - IP/workstation name: [email or web address]
[2019-01-05] MEDS: CHOLECALCIFEROL (D3) 400 UNIT TABLET PO SCH (09:23)
[2019-01-05] MEDS: DOCUSATE SODIUM 100 MG CAPSULE PO SCH ×2 (09:23→21:48)
[2019-01-05] MEDS: NIFEDIPINE 30 MG TAB.ER.24 PO SCH ×2 (09:23→21:48)
[2019-01-05] MEDS: CALCITRIOL 0.25 MCG CAPSULE PO SCH (09:23)
[2019-01-05] MEDS: OXCARBAZEPINE 150 MG TABLET PO SCH ×2 (09:23→21:48)
[2019-01-05] MEDS: CARVEDILOL 12.5 MG TABLET PO SCH ×2 (09:23→21:48)
[2019-01-05] MEDS: FUROSEMIDE 80 MG TABLET PO SCH ×3 (09:24→17:59)
[2019-01-05] MEDS: INSULIN DETEMIR 100 UNIT/ML 3 ML PEN SUBCUT SCH ×2 (09:24→21:52)
--- NOTE | 2019-01-05 19:47 | PDOC PROGRESS REPORT ---
Subjective Progress Note for:: 01/05/19 Subjective:: Patient and hemodialysis yesterday over 4 L of fluid was removed Reason For Visit: ESRD,HYPERGLYCEMIA,POSS PNEUMONIA,VOLUME OVERLOAD Physical Exam Vital Signs: Temp Pulse Resp BP Pulse Ox 97.4 F 72 18 116/56 L 97 01/05/19 16:02 01/05/19 16:02 01/05/19 16:02 01/05/19 16:02 01/05/19 16:02 Intake & Output 01/04/19 01/05/19 01/06/19 06:59 06:59 06:59 Intake Total 318 1500 200 Output Total 4900 Balance 318 -3400 200 Weight 122.5 kg 122.5 kg General appearance: PRESENT: no acute distress Eye exam: PRESENT: PERRLA Respiratory exam: PRESENT: clear to auscultation freddy Cardiovascular exam: PRESENT: +S1, +S2 GI/Abdominal exam: PRESENT: soft Results Laboratory Results: 01/04/19 05:00 01/04/19 05:00 01/02/19 04:17 Troponin I < 0.012 NT-Pro-B Natriuret Pep 7850 H Impressions: Chest X-Ray 01/05/19 06:00 IMPRESSION: Resolved pulmonary edema/ fluid overload pattern Assessment & Plan - Diagnosis (1) Acute pulmonary edema Is this a current diagnosis for this admission?: Yes (2) Hyperkalemia Is this a current diagnosis for this admission?: Yes (3) Diabetes mellitus type 1 Qualifiers: Diabetes mellitus complication status: with unspecified complications Qualified Code(s): E10.8 - Type 1 diabetes mellitus with unspecified com plications Is this a current diagnosis for this admission?: Yes (4) Hypocalcemia Is this a current diagnosis for this admission?: Yes (5) Secondary hyperparathyroidism (of renal origin) Is this a current diagnosis for this admission?: Yes
[2019-01-05] MEDS: PAROXETINE HCL 20 MG TABLET PO SCH (21:50)
[2019-01-06] MEDS ORDERED: HEPARIN SOD (PORCINE) 1,000 UNIT/ML 10 ML VIAL IV PRN (05:00)
[2019-01-06] MEDS ORDERED: EPOETIN ALFA INJ 20000 UNIT/1 ML VIAL (RENAL) IV PRN (05:00)
[2019-01-06 05:16] LABS: HEMATOCRIT 27.3 % (36.0-47.0); HEMOGLOBIN 9.2 g/dL (12.0-15.5); MEAN CORPUSCULAR HEMOGLOBIN 29.7 pg (27.0-33.4); MEAN CORPUSCULAR HGB CONC 33.8 g/dL (32.0-36.0); MEAN CORPUSCULAR VOLUME 88 fl (80-97); PLATELET COUNT 315 10^3/uL (150-450); RED BLOOD COUNT 3.11 10^6/uL (3.72-5.28); RED CELL DISTRIBUTION WIDTH 15.4 % (11.5-14.0); WHITE BLOOD COUNT 8.8 10^3/uL (4.0-10.5)
[2019-01-06] MEDS: CALCIUM CARBONATE 500 MG TABLET PO SCH ×2 (05:18→18:21)
[2019-01-06] MEDS: LANSOPRAZOLE 30 MG TAB.RAP.DR PO SCH (05:19)
[2019-01-06] MEDS: CLONIDINE HCL 0.1 MG TABLET PO SCH ×2 (05:19→18:22)
[2019-01-06] MEDS: OXYCODONE-ACETAMINOPHEN 5-325 MG TABLET PO PRN (05:22)
[2019-01-06 05:28] LABS: ANION GAP 18 (5-19); BLOOD UREA NITROGEN 62 mg/dL (7-20); CALCIUM 7.4 mg/dL (8.4-10.2); CARBON DIOXIDE 25 mmol/L (22-30); CHLORIDE 91 mmol/L (98-107); GLUCOSE 177 mg/dL (75-110); POTASSIUM 5.5 mmol/L (3.6-5.0); SODIUM 134.4 mmol/L (137-145)
[2019-01-06] MEDS: INSULIN LISPRO 100 UNIT/ML 3 ML VIAL SUBCUT SCH ×3 (08:07→17:49)
[2019-01-06] MEDS: DOCUSATE SODIUM 100 MG CAPSULE PO SCH (10:08)
[2019-01-06] MEDS: CHOLECALCIFEROL (D3) 400 UNIT TABLET PO SCH (10:08)
[2019-01-06] MEDS: CALCITRIOL 0.25 MCG CAPSULE PO SCH (10:09)
[2019-01-06] MEDS: OXCARBAZEPINE 150 MG TABLET PO SCH (10:11)
[2019-01-06] MEDS: INSULIN DETEMIR 100 UNIT/ML 3 ML PEN SUBCUT SCH (10:15)
[2019-01-06] MEDS ORDERED: DIPHENHYDRAMINE HCL 50 MG/ML VIAL IV PRN (14:26)
[2019-01-06] MEDS: FUROSEMIDE 80 MG TABLET PO SCH ×2 (17:48→18:13)
--- NOTE | 2019-01-06 17:57 | PDOC PROGRESS REPORT ---
Subjective Progress Note for:: 01/06/19 Subjective:: I saw the patient during dialysis treatment this afternoon at around 3 PM. She is doing much better and no longer short of breath. She feels better. She is ready to be discharged home after dialysis today per Dr. Bobbi Chua. Reason For Visit: ESRD,HYPERGLYCEMIA,POSS PNEUMONIA,VOLUME OVERLOAD Physical Exam Vital Signs: Temp Pulse Resp BP Pulse Ox 97.6 F 65 18 124/60 100 01/06/19 12:29 01/06/19 12:29 01/06/19 12:29 01/06/19 12:29 01/06/19 12:29 Intake & Output 01/05/19 01/06/19 01/07/19 06:59 06:59 06:59 Intake Total 1500 680 355 Output Total 4900 Balance -3400 680 355 Weight 122.5 kg 122.5 kg Vitals during dialysis: Blood pressure 140/55, heart rate of 69, blood flow rate of 450 mL/min, dialysate flow rate of 800/min. Exam: General appearance: PRESENT: no acute distress, cooperative, well-developed, well-nourished Head exam: PRESENT: atraumatic, normocephalic, face is less swollen Eye exam: PRESENT: conjunctiva slightly pale, PERRLA. ABSENT: scleral icterus Neck exam: ABSENT: JVD Respiratory exam: PRESENT: Normal breath sounds. ABSENT: crackles, rales, rhonchi, unlabored, wheezes Cardiovascular exam: PRESENT: Regular rate rhythm -+S1, +S2. ABSENT: diastolic murmur, systolic murmur GI/Abdominal exam: PRESENT: normal bowel sounds, soft. ABSENT: guarding, mass, tenderness Extremities exam: ABSENT: No edema Neurological exam: PRESENT: alert, awake, oriented to person, place and time. Skin exam: PRESENT: dry, warm, Results Laboratory Results: 01/06/19 04:58 01/06/19 04:58 01/06/19 01/06/19 04:58 04:58 WBC 8.8 RBC 3.11 L Hgb 9.2 L Hct 27.3 L MCV 88 MCH 29.7 MCHC 33.8 RDW 15.4 H Plt Count 315 Sodium 134.4 L Potassium 5.5 H Chloride 91 L Carbon Dioxide 25 Anion Gap 18 BUN 62 H Creatinine 9.57 H Est GFR ( Amer) 6 L Est GFR (Non-Af Amer) 5 L Glucose 177 H Calcium 7.4 L 01/02/19 04:17 Troponin I < 0.012 NT-Pro-B Natriuret Pep 7850 H Impressions: Chest X-Ray 01/05/19 06:00 IMPRESSION: Resolved pulmonary edema/ fluid overload pattern Assessment & Plan - Diagnosis (1) ESRD (end stage renal disease) on dialysis Is this a current diagnosis for this admission?: Yes Plan: We did dialysis today for 3 hours and 10 minutes intended for 4 hours but patient requested to come off, using the patient's right upper arm AV fistula, with 2 potassium bath, blood flow rate of 450 mL per minute, dialysate flow rate of 800 mL per minute, ultrafiltration 4.9 L, low-dose heparin and Procrit with 20,000 units during dialysis intravenously. Patient tolerated dialysis well except at the end when he she started cramping. Patient may be discharged from nephrology standpoint. She is to continue to do her outpatient hemodialysis at [facility] as scheduled on Mondays, Wednesdays and Fridays. (2) Acute hypoxemic respiratory failure Is this a current diagnosis for this admission?: Yes Plan: Resolved with ultrafiltration on dialysis. (3) Acute pulmonary edema Is this a current diagnosis for this admission?: Yes Plan: Repeat chest x-ray is much better interpreted as resolved pulmonary edema. (4) Hyperkalemia Is this a current diagnosis for this admission?: Yes Plan: Improved. Reiterate and encourage patient to follow low potassium diet. (5) Hypertension Qualifiers: Hypertension type: essential hypertension Qualified Code(s): I10 - Essential (primary) hypertension Is this a current diagnosis for this admission?: Yes Plan: Better controlled. (6) Anemia in chronic kidney disease (CKD) Is this a current diagnosis for this admission?: Yes Plan: Procrit given today. (7) Diabetes mellitus type 1 Qualifiers: Diabetes mellitus complication status: with unspecified complications Qualified Code(s): E10.8 - Type 1 diabetes mellitus with unspecified complications Is this a current diagnosis for this admission?: Yes - Time Time with patient: 15-25 minutes
[2019-01-06] MEDS: CARVEDILOL 12.5 MG TABLET PO SCH (18:23)
[2019-01-06] MEDS: NIFEDIPINE 30 MG TAB.ER.24 PO SCH (18:23)
[2019-01-06 18:25] VITALS: BP 126/65
--- NOTE | 2019-01-06 20:51 | PDOC DISCHARGE SUMMARY ---
General - Admit/Disc Date/PCP Admission Date/Primary Care Provider: 01/02/19 08:39 K V GLENNY OLIVARES MD Discharge Date: 01/06/19 - Discharge Diagnosis (1) Acute pulmonary edema Is this a current diagnosis for this admission?: Yes (2) Hyperkalemia Is this a current diagnosis for this admission?: Yes (3) Diabetes mellitus type 1 Is this a current diagnosis for this admission?: Yes (4) Hypocalcemia Is this a current diagnosis for this admission?: Yes (5) Secondary hyperparathyroidism (of renal origin) Is this a current diagnosis for this admission?: Yes (6) Acute hypoxemic respiratory failure Is this a current diagnosis for this admission?: Yes - Additional Information Discharge Diet: Cardiac, Diabetic, Other (Comments) Discharge Activity: Activity As Tolerated, Balance Activity w/Rest, Weigh Daily Prescriptions: Calcitriol 0.5 mcg PO DAILY #90 capsule Ergocalciferol (Vitamin D2) [Vitamin D] 400 unit PO DAILY #90 tablet Home Medications: Buprenorphine HCl [Belbuca] 300 mcg PO Q12 01/02/19 Carvedilol [Coreg 12.5 mg Tablet] 12.5 mg PO BID 01/02/19 Clonidine HCl [Catapres 0.1 mg Tablet] 0.1 mg PO TID 01/02/19 Doxepin HCl [Silenor] 6 mg PO QHS 01/02/19 Furosemide [Lasix 80 mg Tablet] 80 mg PO TID 01/02/19 Insulin Detemir [Levemir] 30 units SQ BID 01/02/19 Nifedipine [Nifedipine ER] 60 mg PO BID 01/02/19 Omeprazole 40 mg PO DAILY 01/02/19 Oxcarbazepine [Trileptal] 300 mg PO BID 01/02/19 Oxycodone HCl/Acetaminophen [Percocet 7.5-325 mg Tablet] 1 tab PO Q6HP PRN 01/02/19 Paroxetine HCl [Paxil 20 mg Tablet] 60 mg PO QHS 01/02/19 Promethazine HCl 12.5 mg PO Q12HP PRN 01/02/19 Calcitriol 0.5 mcg PO DAILY #90 capsule 01/06/19 Ergocalciferol (Vitamin D2) [Vitamin D] 400 unit PO DAILY #90 tablet 01/06/19 History of Present Illness History of Present Illness: ERICH GOODMAN is a 33 year old female she has end-stage kidney disease on maintenance hemodialysis she was transferred to the emergency room by paramedics for evaluation of shortness of breath of acute onset, she stated that the shortness of breath started suddenly so she called EMS she also had nonspecific right-sided chest pain. In the emergency room she was evaluated, a chest x-ray was done that demonstrated findings consistent with pulmonary edema versus pneumonia. The metabolic panel revealed hyperkalemia with serum potassium of 7.2, she needed emergent hemodialysis this was provided in the emergency room by the nephrology team. Patient has had multiple hospitalization she usually present in this manner on almost always after she was hemodialyzed she feels better. She has abdominal comorbid conditions including type 1 diabetes me llitus chronic pain on chronic opioid therapy, hypertension Hospital Course Hospital Course: Patient was admitted for the management of pulmonary edema, she was seen by nephrology underwent hemodialysis, There was hypocalcemia with associated secondary hyperparathyroidism treated with calcitriol and vitamin d . She required noninvasive positive pressure ventilation with BiPAP Physical Exam Vital Signs: Temp Pulse Resp BP Pulse Ox 98.4 F 77 16 126/65 H 96 01/06/19 19:19 01/06/19 19:19 01/06/19 19:19 01/06/19 19:19 01/06/19 19:19 Intake & Output 01/05/19 01/06/19 01/07/19 06:59 06:59 06:59 Intake Total 1500 680 355 Output Total 4900 3900 Balance -3400 680 -3545 Weight 122.5 kg 122.5 kg General appearance: PRESENT: no acute distress Eye exam: PRESENT: PERRLA Mouth exam: PRESENT: moist Respiratory exam: PRESENT: clear to auscultation freddy Cardiovascular exam: PRESENT: +S1, +S2 GI/Abdominal exam: PRESENT: soft Neurological exam: PRESENT: alert Results Laboratory Results: 01/06/19 04:58 01/06/19 04:58 01/06/19 01/06/19 04:58 04:58 WBC 8.8 RBC 3.11 L Hgb 9.2 L Hct 27.3 L MCV 88 MCH 29.7 MCHC 33.8 RDW 15.4 H Plt Count 315 Sodium 134.4 L Potassium 5.5 H Chloride 91 L Carbon Dioxide 25 Anion Gap 18 BUN 62 H Creatinine 9.57 H Est GFR ( Amer) 6 L Est GFR (Non-Af Amer) 5 L Glucose 177 H Calcium 7.4 L 01/02/19 04:17 Troponin I < 0.012 NT-Pro-B Natriuret Pep 7850 H Impressions: Chest X-Ray 01/05/19 06:00 IMPRESSION: Resolved pulmonary edema/ fluid overload pattern Qualifiers - * PATIENT BEING DISCHARGED WITH ANY OF THE FOLLOWING DIAGNOSIS: No
== END 2019-01-06 20:13 | disposition home or self-care (01) | DRG 291 ==
LOC: ER 04:04 → EH 08:39 → 4N 15:06
PROVIDERS: ADMIT Internal Medicine; ATTEND Internal Medicine
PROC: 5A1D70Z Performance of Urinary Filtration, Intermittent, Less than 6 Hours Per Day (ICD-10-PCS; principal; 2019-01-02)
PROC: 5A1D70Z Performance of Urinary Filtration, Intermittent, Less than 6 Hours Per Day (ICD-10-PCS; 2019-01-04)
PROC: 5A1D70Z Performance of Urinary Filtration, Intermittent, Less than 6 Hours Per Day (ICD-10-PCS; 2019-01-06)
DX: I13.2 Hypertensive heart and chronic kidney disease with heart failure and with stage 5 chronic kidney disease, or end stage renal disease (principal); N18.6 End stage renal disease; J96.01 Acute respiratory failure with hypoxia; N25.81 Secondary hyperparathyroidism of renal origin; I50.1 Left ventricular failure, unspecified; I25.10 Atherosclerotic heart disease of native coronary artery without angina pectoris; F32.9 Major depressive disorder, single episode, unspecified; G43.909 Migraine, unspecified, not intractable, without status migrainosus; E10.319 Type 1 diabetes mellitus with unspecified diabetic retinopathy without macular edema; L40.9 Psoriasis, unspecified; E10.21 Type 1 diabetes mellitus with diabetic nephropathy; E10.22 Type 1 diabetes mellitus with diabetic chronic kidney disease; E10.65 Type 1 diabetes mellitus with hyperglycemia; E83.51 Hypocalcemia; G89.29 Other chronic pain; E10.43 Type 1 diabetes mellitus with diabetic autonomic (poly)neuropathy; D63.1 Anemia in chronic kidney disease; J45.909 Unspecified asthma, uncomplicated; Z99.2 Dependence on renal dialysis; E87.5 Hyperkalemia; Z79.4 Long term (current) use of insulin; Z90.49 Acquired absence of other specified parts of digestive tract; Z90.710 Acquired absence of both cervix and uterus; Z99.81 Dependence on supplemental oxygen; Z88.1 Allergy status to other antibiotic agents; Z88.6 Allergy status to analgesic agent; Z79.899 Other long term (current) drug therapy; Z79.891 Long term (current) use of opiate analgesic
CPT/HCPCS: 36415; 71045; 71046; 80048; 80053; 82962; 83880; 83970; 84484; 85025; 85027; 87040; 93005; 93010; 94660; 96365; 96367; 96375; 99285; G0257; J0610; J1200; J1335; J1644; J1815; J2405; J2543; J3010; J3490; Q4081

== ENCOUNTER → 2019-01-12 | Outpatient (CLI) | payer MEDICARE, MEDICAID ==
--- NOTE | 2019-01-12 14:44 | RADIOLOGY REPORT (SQ) ---
EXAM DESCRIPTION: VENOUS UNILATERAL UPPER COMPLETED DATE/TIME: 01/12/2019 2:33 pm REASON FOR STUDY: PAIN RIGHT ARM, DIALYSIS PATIENT M79.601 PAIN IN RIGHT ARM COMPARISON: 10/07/2017 TECHNIQUE: Dynamic and static calvillo scale and color images acquired of the right arm venous system. S elected spectral images acquired with additional compression and augmentation maneuvers. The contrala teral subclavian vein and internal jugular vein were also imaged. Images stored on PACS. LIMITATIONS: Difficult examination due to patient body habitus. FINDINGS: INTERNAL JUGULAR VEIN: Normal phasicity, compression, augmentation. No visualized echogeni c material on calvillo scale. No defects on color images. Comparison opposite side normal. SUBCLAVIAN VEIN: Normal compression, augmentation. No visualized echogenic material on calvillo scale. No defects on color images. AXILLARY VEIN: Normal compression, augmentation. No visualized echogenic material on calvillo scale. No d efects on color images. BRACHIAL VEIN: Normal compression, augmentation. No visualized echogenic material on calvillo scale. No d efects on color images. BASILIC VEIN: Normal compression, augmentation. No visualized echogenic material on calvillo scale. No de fects on color images. CEPHALIC VEIN: Normal compression, augmentation. No visualized echogenic material on calvillo scale. No d efects on color images. OTHER: The patient has an AV fistula for dialysis. Fistula anastomosis seen at the antecubital sana a. Patent fistula. IMPRESSION: 1. The examination is limited due to body habitus. 2. NO EVIDENCE DVT OR SVT RIGHT ARM. 3. The patient has an AV fistula which is patent. TECHNICAL DOCUMENTATION: JOB ID: [id number] [employer]- All Rights Reserved Reading location - IP/workstation name: [email or web address]
== END ==
LOC: RAD 15:56
PROVIDERS: ATTEND Physician Assistant Medical
DX: M79.601 Pain in right arm (principal); R22.31 Localized swelling, mass and lump, right upper limb; R20.2 Paresthesia of skin
CPT/HCPCS: 93971

== ENCOUNTER 2019-02-13 07:17 | Inpatient (IN) | payer MEDICARE, MEDICAID ==
[2019-02-13] MEDS ORDERED: PROMETHAZINE HCL INJ 25 MG/1 ML VIAL IV ONE (07:25)
[2019-02-13] MEDS ORDERED: FUROSEMIDE INJ/PF 40 MG/4 ML SDV IV ONE (07:28)
[2019-02-13] MEDS ORDERED: IPRATROPIUM/ALBUTEROL 0.5-2.5 MG/3 ML AMPUL NEB ONE (07:28)
[2019-02-13] MEDS ORDERED: CLONIDINE HCL 0.1 MG TABLET PO ONE (07:34)
--- NOTE | 2019-02-13 07:34 | ER Document Report ---
ED General - General Stated Complaint: SHORTNESS OF BREATH Time Seen by Provider: 02/13/19 07:19 TRAVEL OUTSIDE OF THE [place] IN LAST 30 DAYS: No - HPI Notes: Patient is a 33-year-old female that presents to the emergency department for chief complaint of respiratory distress. Patient reports waking up this morning with increased shortness of breath. She has dialysis Wednesday and Wednesday and states she has not missed. Patient is scheduled for dialysis at 10 AM this morning. She reports a tightness in her chest but denies a sharp pain. She reports an allergy to nitro. Patient also complaining of feeling nauseated. HPI is limited because patient is on CPAP and respiratory distress and having a hard time speaking. Past Medical History: CHF, CAD, diabetes, end-stage renal disease on dialysis Past Surgical History: Right proximal extremity AV fistula Social History: Reviewed in chart Family History: Reviewed and noncontributory for presenting illness Allergies: Reviewed, see documented allergy list. REVIEW OF SYSTEMS: CONSTITUTIONAL : No fever No chills diaphoresis No recent illness EENT: No vision changes No congestion No sore throat CARDIOVASCULAR: No chest pain No palpitations RESPIRATORY: shortness of breath No cough difficulty breathing GASTROINTESTINAL: No abdominal pain nausea No vomiting No diarrhea GENITOURINARY: No dysuria No hematuria No difficulty urinating MUSCULOSKELETAL: No back pain No leg pain No arm pain SKIN: No rashes No lesions LYMPHATIC: No swollen, enlarged glands. NEUROLOGICAL: No lightheadedness No headache No weakness No paresthesias PSYCHIATRIC: No anxiety No depression PHYSICAL EXAMINATION: Vital signs reviewed, nursing noted reviewed. GENERAL: Ill-appearing, obese and in moderate acute distress HEAD: Atraumatic, normocephalic. EYES: Eyes appear normal, extraocular movements intact, sclera anicteric, conjunctiva are normal. ENT: nares patent, oropharynx clear without exudates. Moist mucous membranes. NECK: Normal range of motion, supple without lymphadenopathy LUNGS: Breath sounds diminished with basilar Rales bilaterally, tachypneic, speaking in partial sentences, moderate accessory muscle use HEART: Tachycardic rate and regular rhythm without murmurs ABDOMEN: Soft, nontender, normoactive bowel sounds. No rebound, guarding, or rigidity. No masses appreciated. EXTREMITIES: Nontender, good range of motion, bilateral lower extremity pitting edema NEUROLOGICAL: No focal neurological deficits. Moves all extremities spontaneously Motor and sensory grossly intact on exam. PSYCH: Normal mood, normal affect. SKIN: Warm, diaphoretic, normal turgor, no rashes or lesions noted on exposed skin - Related Data Allergies/Adverse Reactions: aspirin [Aspirin] Allergy (Verified 11/28/18 08:13) Anaphylaxis ciprofloxacin [From Cipro] Allergy (Verified 11/28/18 08:13) Anaphylaxis clindamycin [Clindamycin] Allergy (Verified 11/28/18 08:13) hydrocodone [From Vicodin] Allergy (Verified 11/28/18 08:13) ibuprofen [From Motrin] Allergy (Verified 11/28/18 08:13) Anaphylaxis lidocaine [From Lidoderm] Allergy (Verified 11/28/18 08:13) Generalized rash tramadol HCl [From Ultram] Allergy (Verified 11/28/18 08:13) vancomycin [Vancomycin] Allergy (Verified 11/28/18 08:13) Shortness of Breath nitroglycerin [Nitroglycerin] Adverse Reaction (Intermediate, Verified 11/28/18 08:13) Joint pain Past Medical History - Social History Smoking Status: Never Smoker Family History: Reviewed & Not Pertinent - Past Medical History Cardiac Medical History: Reports: Hx Congestive Heart Failure, Hx Coronary Artery Disease, Hx Hypertension, Hx Heart Murmur Pulmonary Medical History: Reports: Hx Asthma, Hx Pneumonia Neurological Medical History: Reports: Hx Migraine, Hx Seizures - only r/t low calcium Endocrine Medical History: Reports: Hx Diabetes Mellitus Type 1, Hx Diabetes Mellitus Type 2 Renal/ Medical History: Reports: Hx End Stage Renal Disease - On hemodialysis MWF, Hx Hemodialysis, Hx Ovarian Cysts. Denies: Hx Peritoneal Dialysis Malignancy Medical History: GI Medical History: Reports: Hx Gastritis Musculoskeletal Medical History: Skin Medical History: Reports Hx Psoriasis Psychiatric Medical History: Reports: Hx Depression Traumatic Medical History: Infectious Medical History: Past Surgical History: Reports: Hx Appendectomy, Hx Cholecystectomy, Hx Vascular Surgery - Lt AV Fistula and graft; Rt AV fistula. Denies: Hx Hysterectomy - Immunizations Immunizations up to date: Yes Hx Diphtheria, Pertussis, Tetanus Vaccination: Yes Hx Pneumococcal Vaccination: 08/22/11 Physical Exam - Vital signs Vitals: Pulse Ox 98 02/13/19 07:24 Course - Re-evaluation Re-evalutation: 02/13/19 07:32 Vitals reviewed. Nursing notes reviewed. Patient presented on BiPAP by EMS. She was placed on CPAP for pulmonary edema upon arrival to the ED. She does have tachypnea and was started on breathing treatments. Patient has a severe allergy to nitroglycerin therefore it will not be administered. She was given a dose of Lasix. I have currently paged Dr. Kwon to help facilitate dialysis for this patient today. 02/13/19 08:12 Patient's EKG shows hyperacute T waves concerning for possible acute hyperkalemia. Patient was given a dose of calcium IV. 02/13/19 08:55 Patient is hyperkalemic with a potassium of 6.1. I discussed her care with Dr. Farah who will arrange for her to receive dialysis in the ICU within the next hour. Patient was given calcium already and will receive insulin and D50. Her respiratory rate has continued to improve on CPAP. Patient's blood pressure has also improved. She has a leukocytosis and x-ray concerning for possible underlying pneumonia with edema. Given Rocephin and azithromycin for possible pneumonia. Blood cultures and lactate will be added. Patient's care was discussed with Dr. Singleton who accepts admission to the ICU. Laboratory 02/13/19 02/13/19 02/13/19 07:40 07:40 07:40 WBC 22.7 H RBC 3.34 L Hgb 9.9 L Hct 30.1 L MCV 90 MCH 29.6 MCHC 32.9 RDW 15.3 H Plt Count 433 Total Counted 100 Seg Neutrophils % Not Reportable Seg Neuts % (Manual) 85 H Band Neutrophils % 2 L Lymphocytes % Not Reportable Lymphocytes % (Manual) 11 L Monocytes % Not Reportable Monocytes % (Manual) 1 L Eosinophils % Not Reportable Eosinophils % (Manual) 1 Basophils % Not Reportable Basophils % (Manual) 0 Absolute Neutrophils Not Reportable Abs Neuts (Manual) 19.7 H Absolute Lymphocytes Not Reportable Abs Lymphs (Manual) 2.5 Absolute Monocytes Not Reportable Abs Monocytes (Manual) 0.2 Absolute Eosinophils Not Reportable Absolute Eos (Manual) 0.2 Absolute Basophils Not Reportable Abs Basophils (Manual) 0.0 Platelet Comment ADEQUATE Poikilocytosis SLIGHT Anisocytosis SLIGHT Ovalocytes SLIGHT Schistocytes SLIGHT Sodium 135.6 L Potassium 6.1 H* Chloride 91 L Carbon Dioxide 21 L Anion Gap 24 H BUN 70 H Creatinine 11.97 H Est GFR ( Amer) 4 L Est GFR (Non-Af Amer) 4 L Glucose 356 H Calcium 7.2 L Total Bilirubin 0.5 Direct Bilirubin 0.5 H Neonat Total Bilirubin Not Reportable Neonat Direct Bilirubin Not Reportable Neonat Indirect Bili Not Reportable AST 51 H ALT 10 Alkaline Phosphatase 223 H Troponin I < 0.012 NT-Pro-B Natriuret Pep 11388 H Total Protein 9.1 H Albumin 4.8 - Vital Signs Vital signs: Temp Pulse Resp BP Pulse Ox 26 H 104/35 L 95 02/13/19 09:01 02/13/19 09:01 02/13/19 09:01 - Laboratory Result Diagrams: 02/13/19 07:40 02/13/19 07:40 Laboratory results interpreted by me: 02/13/19 02/13/19 02/13/19 07:40 07:40 07:40 WBC 22.7 H RBC 3.34 L Hgb 9.9 L Hct 30.1 L RDW 15.3 H Seg Neuts % (Manual) 85 H Band Neutrophils % 2 L Lymphocytes % (Manual) 11 L Monocytes % (Manual) 1 L Abs Neuts (Manual) 19.7 H Sodium 135.6 L Potassium 6.1 H* Chloride 91 L Carbon Dioxide 21 L Anion Gap 24 H BUN 70 H Creatinine 11.97 H Est GFR ( Amer) 4 L Est GFR (Non-Af Amer) 4 L Glucose 356 H Calcium 7.2 L Direct Bilirubin 0.5 H AST 51 H Alkaline Phosphatase 223 H NT-Pro-B Natriuret Pep 58993 H Total Protein 9.1 H - EKG Interpretation by Me Additional EKG results interpreted by me: 02/13/19 08:03 Interpreted by myself 0801: Normal sinus rhythm, rate 96, borderline left axis deviation, prolonged QT with QTC of 501, no ST elevation, hyper acute T waves Critical Care Note - Critical Care Note Total time excluding time spent on procedures (mins): 40 Comments: Critical care time 40 exclusive from separate billable procedures for a patient requiring complex medical decision making, and high potential for clinical deterioration. Time spent obtaining history from patient or surrogate, discussions with consultants, development of treatment plan with patient or surrogate, evaluation of patient's response to treatment, examination of patient, ordering and performing treatments and interventions, ordering and review of laboratory studies, re-evaluation of patient's condition, ordering and review of radiographic studies and review of old charts Discharge - Discharge Clinical Impression: Acute on chronic systolic CHF (congestive heart failure), Acute hypoxemic respiratory failure, Hyperkalemia Pneumonia Qualifiers: Pneumonia type: due to unspecified organism Laterality: right Lung location: unspecified part of lung Qualified Code(s): J18.9 - Pneumonia, unspecified organism Sepsis Qualifiers: Sepsis type: sepsis due to unspecified organism Qualified Code(s): A41.9 - Sepsis, unspecified organism Condition: Stable Disposition: ADMITTED INPATIENT Admitting Provider: [facility] Unit Admitted: ICU
[2019-02-13] MEDS ORDERED: CALCIUM GLUCONATE 1000 MG/10 ML INJ IV ONE (08:12)
[2019-02-13 08:15] LABS: NT PRO BNP 16900 pg/mL (<125)
[2019-02-13 08:20] LABS: TROPONIN I < 0.012 ng/mL
[2019-02-13 08:26] LABS: HEMATOCRIT 30.1 % (36.0-47.0); HEMOGLOBIN 9.9 g/dL (12.0-15.5); MEAN CORPUSCULAR HEMOGLOBIN 29.6 pg (27.0-33.4); MEAN CORPUSCULAR HGB CONC 32.9 g/dL (32.0-36.0); MEAN CORPUSCULAR VOLUME 90 fl (80-97); PLATELET COUNT 433 10^3/uL (150-450); RED BLOOD COUNT 3.34 10^6/uL (3.72-5.28); RED CELL DISTRIBUTION WIDTH 15.3 % (11.5-14.0); WHITE BLOOD COUNT 22.7 10^3/uL (4.0-10.5)
[2019-02-13 08:33] LABS: ALANINE AMINOTRANSFERASE 10 U/L (9-52); ALBUMIN 4.8 g/dL (3.5-5.0); ALKALINE PHOSPHATASE 223 U/L (38-126); ASPARTATE AMINO TRANSFERASE 51 U/L (14-36); BILIRUBIN,DIRECT 0.5 mg/dL (0.0-0.4); BILIRUBIN,TOTAL 0.5 mg/dL (0.2-1.3); BLOOD UREA NITROGEN 70 mg/dL (7-20); CALCIUM 7.2 mg/dL (8.4-10.2); CARBON DIOXIDE 21 mmol/L (22-30); CHLORIDE 91 mmol/L (98-107); GLUCOSE 356 mg/dL (75-110); SODIUM 135.6 mmol/L (137-145); TOTAL PROTEIN 9.1 g/dL (6.3-8.2)
[2019-02-13 08:49] LABS: ANION GAP 24 (5-19)
[2019-02-13 08:50] LABS: POTASSIUM 6.1 mmol/L (3.6-5.0)
[2019-02-13] MEDS ORDERED: DEXTROSE 50%-WATER 25 GM/50 ML DISP.SYRIN IV ONE (08:51)
[2019-02-13] MEDS ORDERED: INSULIN REG, HUMAN 100 UNIT/ML 3 ML VIAL (PYX) IV ONE (08:51)
[2019-02-13] MEDS ORDERED: AZITHROMYCIN INJ 500 MG VIAL IV ONE (08:53)
[2019-02-13] MEDS ORDERED: CEFTRIAXONE INJ 1000 MG VIAL IV ONE (08:53)
[2019-02-13 08:54] LABS: ABSOLUTE LYMPHOCYTES# (MANUAL) 2.5 10^3/uL (0.5-4.7); ABSOLUTE MONOCYTES # (MANUAL) 0.2 10^3/uL (0.1-1.4); ABSOLUTE NEUTROPHILS# (MANUAL) 19.7 10^3/uL (1.7-8.2); BAND NEUTROPHILS % (MANUAL) 2 % (3-5); BASOPHILS % (MANUAL) 0 % (0-2); EOSINOPHILS % (MANUAL) 1 % (0-6); LYMPHOCYTES % (MANUAL) 11 % (13-45); MONOCYTES % (MANUAL) 1 % (3-13); SEGMENTED NEUTROPHILS % (MAN) 85 % (42-78); TOTAL CELLS COUNTED 100
[2019-02-13 08:55] LABS: ANISOCYTOSIS SLIGHT; OVALOCYTES SLIGHT; PLATELET COMMENT ADEQUATE; POIKILOCYTOSIS SLIGHT; SCHISTOCYTES SLIGHT
--- NOTE | 2019-02-13 09:02 | RADIOLOGY REPORT (SQ) ---
EXAM DESCRIPTION: CHEST SINGLE VIEW COMPLETED DATE/TIME: 02/13/2019 8:48 am REASON FOR STUDY: respiratory distress COMPARISON: 01/05/2019 EXAM PARAMETERS: NUMBER OF VIEWS: One view. TECHNIQUE: Single frontal radiographic view of the chest acquired. RADIATION DOSE: NA LIMITATIONS: None. FINDINGS: LUNGS AND PLEURA: There is new, multifocal heterogeneous pulmonary opacity, most conspicuo us in the right upper lobe and right lower lobe although also noted in the lingula. MEDIASTINUM AND HILAR STRUCTURES: No masses. Contour normal. HEART AND VASCULAR STRUCTURES: Cardiomegaly. BONES: No acute findings. HARDWARE: None in the chest. OTHER: Vascular stents of the bilateral upper extremities. IMPRESSION: There is new, multifocal heterogeneous pulmonary opacity, most conspicuous in the right upper lobe and right lower lobe although also noted in the lingula. Findings are most concerning for multifocal infection although profound, asymmetric pulmonary edema may also have this appearance. TECHNICAL DOCUMENTATION: JOB ID: [id number] [employer]- All Rights Reserved Reading location - IP/workstation name: [email or web address]
[2019-02-13] MEDS ORDERED: EPOETIN ALFA INJ 20000 UNIT/1 ML VIAL (RENAL) IV PRN (10:51)
[2019-02-13] MEDS ORDERED: HEPARIN SOD (PORCINE) 1,000 UNIT/ML 10 ML VIAL IV PRN (10:51)
[2019-02-13] MEDS: HEPARIN SOD (PORCINE) 5,000 UNIT/ML 1 ML SYRINGE SUBCUT SCH ×3 (11:18→22:16)
[2019-02-13] MEDS ORDERED: EPOETIN ALFA 10,000 UNIT in SYRINGE, DISPOSABLE, 1 EACH IV PRN (11:45)
--- NOTE | 2019-02-13 15:40 | PDOC CONSULTATION ---
Consultation Consult Date: 02/13/19 Attending physician:: HILARY HERNANDEZ Consult reason:: I was asked to see this patient due to acute respiratory distress with pulmonary edema with history of ESRD. History of Present Illness Admission Date/PCP: 02/13/19 08:51 HILARY HERNANDEZ MD History of Present Illness: ERICH GOODMAN is a 33 year old female known to me with history of end-stage renal disease secondary to diabetic nephropathy, diabetes mellitus type 1, hypertension and anemia who was brought into the emergency room because of acute respiratory distress. History is obtained mostly from the emergency room records since the patient is not been able to really give me any history at this time being on a nonrebreather mask and mildly lethargic. Apparently patient woke up with acute onset of shortness of breath, chest tightness and some nausea. She then presented in the emergency room and required CPAP. Initial blood pressure was 217/109. Chest x-ray showed opacity in the right upper and right lower lobe which could be consistent with pulmonary edema versus pneumonia. Her potassium is elevated at 6.1 as well. I was told by Dr. Conde from the emergency room that she was initially on CPAP currently now on nonrebreather mask. She was given anti-hyperkalemic cocktail in the emergency room including calcium gluconate intravenously. She was also given a dose of clonidine 0.1 mg x1 dose and Phenergan 25 mg x1 dose. She was also given a dose of ceftriaxone and Zithromax intravenously. She is currently here in the ICU but will go up to the medical floor. Currently she is somewhat lethargic and answers very few questions well on the nonrebreather mask. Her oxygen sa turation is currently 100%. She is restless. 3:30 PM. I am seeing the patient during dialysis treatment. She remains to be on nonrebreather mask. She is sleeping but then wakes up and still appears to be restless when awake. She indicated to me that she is feeling a little bit better compared to earlier. Her blood pressure is elevated on the low side so we have to address her ultrafiltration accordingly. So far she is tolerating dialysis at the moment. I spoke to [facility] staff and found out that patient did not finish her full treatment on Wednesday missing about an hour. She also did not finish her full treatment on Wednesday. Past Medical History Cardiac Medical History: Reports: Coronary Artery Disease, Heart Murmur, Hypertension-primary Pulmonary Medical History: Reports: Asthma, Pneumonia Neurological Medical History: Reports: Migraine, Seizures - only r/t low calcium Endocrine Medical History: Reports: Diabetes Mellitus Type 1 Complications of Diabetes: Reports: Autonomic Neuropathy, Nephropathy, Retinopathy Renal/ Medical History: Reports: End Stage Renal Disease - On hemodialysis MWF, Hyperkalemia, Hyperphosphatemia, Secondary Hyperparathyroidism Malignancy Medical History: GI Medical History: Musculoskeltal Medical History: Skin Medical History: Reports: Psoriasis Psychiatric Medical History: Reports: Depression Infectious Medical History: Hematology Medical History: Reports Anemia of Chronic Kidney Disease Past Surgical History Past Surgical History: Reports: Appendectomy, Cholecystectomy, Dialysis Access Surgery AVF, Vascular Surgery - Lt AV Fistula and graft; Rt AV fistula Social History Information Source: [facility] Records Smoking Status: Never Smoker Frequency of Alcohol Use: None Hx Recreational Drug Use: No Drugs: None Hx Prescription Drug Abuse: No Family History Family History: No kidney disease in the family. Parental Family History Reviewed: Yes Children Family History Reviewed: Unknown Sibling(s) Family History Reviewed.: Unknown Medication/Allergy Home Medications: Nifedipine [Nifedipine ER] 60 mg PO Q12 01/02/19 Oxcarbazepine [Trileptal] 300 mg PO Q12 01/02/19 Oxycodone HCl/Acetaminophen [Percocet 7.5-325 mg Tablet] 1 tab PO Q6HP PRN 01/02/19 Paroxetine HCl [Paxil 20 mg Tablet] 60 mg PO QPM 01/02/19 Calcitriol 0.5 mcg PO DAILY #90 capsule 01/06/19 Albuterol Sulfate [Proair HFA Inhalation Aerosol 8.5 gm MDI] 2 puff IH Q6HP PRN 02/13/19 Buprenorphine HCl [Belbuca] 300 mcg SL Q12 02/13/19 Cetirizine HCl [Zyrtec 10 mg Tablet] 10 mg PO DAILY 02/13/19 Dicyclomine HCl [Bentyl 20 mg Tablet] 20 mg PO QIDP PRN 02/13/19 Doxepin HCl [Silenor] 6 mg PO QHS 02/13/19 Fluticasone Propionate [Flonase Nasal [place] 50 Mcg/[place] 16 gm] 1 spray NASL DAILY 02/13/19 Omeprazole 40 mg PO DAILY 02/13/19 Ondansetron HCl [Zofran 8 mg Tablet] 8 mg PO Q12 02/13/19 Promethazine HCl [Phenergan 25 mg Tablet] 25 mg PO Q8HP PRN 02/13/19 Allergies/Adverse Reactions: aspirin [Aspirin] Allergy (Verified 11/28/18 08:13) Anaphylaxis ciprofloxacin [From Cipro] Allergy (Verified 11/28/18 08:13) Anaphylaxis clindamycin [Clindamycin] Allergy (Verified 11/28/18 08:13) hydrocodone [From Vicodin] Allergy (Verified 11/28/18 08:13) ibuprofen [From Motrin] Allergy (Verified 11/28/18 08:13) Anaphylaxis lidocaine [From Lidoderm] Allergy (Verified 11/28/18 08:13) Generalized rash tramadol HCl [From Ultram] Allergy (Verified 11/28/18 08:13) vancomycin [Vancomycin] Allergy (Verified 11/28/18 08:13) Shortness of Breath nitroglycerin [Nitroglycerin] Adverse Reaction (Intermediate, Verified 11/28/18 08:13) Joint pain Review of Systems ROS unobtainable: Due to mental status Physical Exam Vital Signs: Temp Pulse Resp BP Pulse Ox 99.1 F 90 22 H 118/69 100 02/13/19 10:29 02/13/19 10:29 02/13/19 10:29 02/13/19 10:29 02/13/19 10:29 Intake & Output 02/12/19 02/13/19 02/14/19 06:59 06:59 06:59 Weight 121.6 kg Vitals during dialysis: Blood pressure 124/33, heart rate of 85, blood flow rate of 450 mL/min and dialysate flow rate of 800 mL/min. Using her right arm AV fistula. Exam: General appearance: Currently on nonrebreather mask, well-developed, well- nourished Head exam: PRESENT: atraumatic, normocephalic Eye exam: PRESENT: Conjunctiva pale, EOMI, PERRLA. ABSENT: conjunctival injection, scleral icterus Mouth exam: PRESENT: moist, neck supple, tongue midline Neck exam: PRESENT: full ROM. ABSENT: carotid bruit, JVD, lymphadenopathy, thyromegaly Respiratory exam: PRESENT: Coarse breath sounds auscultation bilaterally. Pos itive crackles diffusely in bilateral lung mckeon anteriorly and posteriorly ABSENT: Rhonchi, stridor, wheezes Cardiovascular exam: PRESENT: RRR, +S1, +S2. ABSENT: systolic murmur Pulses: PRESENT: normal radial pulses, normal dorsalis pedis pulses GI/Abdominal exam: PRESENT: normal bowel sounds, soft. ABSENT: guarding, mass, tenderness Rectal exam: Deferred Extremities exam: PRESENT: full ROM. Mild upper extremity edema and trace bilateral lower extremity edema ABSENT: calf tenderness Musculoskeletal: PRESENT: full ROM. ABSENT: deformity Neurological exam: PRESENT: alert, Awake, Oriented to person, Oriented to place, Oriented to time, reflexes normal, CN II-XII grossly intact. ABSENT: motor sensory deficit Psychiatric exam: PRESENT: Currently restless Skin exam: PRESENT: intact, dry, warm. ABSENT: rash Results Laboratory Results: 02/13/19 07:40 02/13/19 07:40 02/13/19 02/13/19 02/13/19 07:40 07:40 09:48 WBC 22.7 H RBC 3.34 L Hgb 9.9 L Hct 30.1 L MCV 90 MCH 29.6 MCHC 32.9 RDW 15.3 H Plt Count 433 Seg Neutrophils % Not Reportable Lymphocytes % Not Reportable Monocytes % Not Reportable Eosinophils % Not Reportable Basophils % Not Reportable Absolute Neutrophils Not Reportable Absolute Lymphocytes Not Reportable Absolute Monocytes Not Reportable Absolute Eosinophils Not Reportable Absolute Basophils Not Reportable Sodium 135.6 L Potassium 6.1 H* Chloride 91 L Carbon Dioxide 21 L Anion Gap 24 H BUN 70 H Creatinine 11.97 H Est GFR ( Amer) 4 L Est GFR (Non-Af Amer) 4 L Glucose 356 H Lactic Acid 1.6 Calcium 7.2 L Total Bilirubin 0.5 AST 51 H ALT 10 Alkaline Phosphatase 223 H Total Protein 9.1 H Albumin 4.8 02/13/19 07:40 Troponin I < 0.012 NT-Pro-B Natriuret Pep 79897 H Impressions: Chest X-Ray 02/13/19 07:24 IMPRESSION: There is new, multifocal heterogeneous pulmonary opacity, most conspicuous in the right upper lobe and right lower lobe although also noted in the lingula. Findings are most concerning for multifocal infection although profound, asymmetric pulmonary edema may also have this appearance. Assessment & Plan - Diagnosis (1) Acute hypoxemic respiratory failure Is this a current diagnosis for this admission?: Yes Plan: With acute pulmonary edema requiring CPAP initially and currently on nonrebreather mask. Concomitant infection like pneumonia needs to be considered. Patient given a dose of IV ceftriaxone and azithromycin in the emergency room. (2) Acute diastolic (congestive) heart failure Is this a current diagnosis for this admission?: Yes (3) Acute pulmonary edema Is this a current diagnosis for this admission?: Yes Plan: Patient requires urgent hemodialysis for ultrafiltration. (4) ESRD (end stage renal disease) on dialysis Is this a current diagnosis for this admission?: Yes Plan: With current respiratory status and acute pulmonary edema we will dialyze the patient as soon as possible. We will do dialysis today for 3.5 hours, using the patient's AV fistula, with 1K for 1-1/2 hours followed by 2 potassium bath, blood flow rate of 450 mL per minute, dialysate flow rate of 800 mL per minute, ultrafiltration 4-5 L as tolerated, heparin bolus of 3000 units followed by 500 units an hour and Procrit with 10,000 units during dialysis intravenously. I discussed the treatment plan with her dialysis nurse. Patient will be monitored throughout dialysis treatment today. Will adjust accordingly depending on response to above prescription. 3:30 PM. Patient's blood pressure is currently on the low side so we have adjusted her ultrafiltration to probably just 4 L for this dialysis treatment. (5) Anemia in chronic kidney disease (CKD) Is this a current diagnosis for this admission?: Yes Plan: Procrit given during dialysis as needed. (6) Diabetes mellitus type 1 Qualifiers: Diabetes mellitus complication status: with unspecified complications Qualified Code(s): E10.8 - Type 1 diabetes mellitus with unspecified complications Is this a current diagnosis for this admission?: Yes (7) Hyperkalemia Is this a current diagnosis for this admission?: Yes Plan: We will adjust potassium bath during dialysis as above. (8) Hypertension Qualifiers: Hypertension type: essential hypertension Qualified Code(s): I10 - [place] l (primary) hypertension Is this a current diagnosis for this admission?: Yes Plan: Blood pressure has improved from admission but needs to be monitored from this time on. Recommend to resume her blood pressure medications once the blood pres sure starts getting better with likely systolic blood pressure of 140 and above. (9) Morbid obesity Is this a current diagnosis for this admission?: Yes - Notes Notes: Thank you very much for this consultation. We will follow the patient while here in the hospital. - Time Time Spent: Greater than 70 Minutes
--- NOTE | 2019-02-13 18:24 | PDOC H&P ---
History of Present Illness Admission Date/PCP: 02/13/19 08:51 HILARY HERNANDEZ MD History of Present Illness: ERICH GOODMAN is a 33 year old female.She has history of end-stage renal disease on maintenance hemodialysis, type 1 diabetes mellitus, hypertension she came to the emergency room for evaluation of respiratory distress patient typically patient present in this fashion on multiple occasions she will present with acute pulmonary edema usually this will resolve with hemodialysis ,there was associated hyperkalemia.She always require hemodialysis on emergency basis, she was treated for the hyperkalemia in the emergency room Past Medical History Cardiac Medical History: Reports: Congestive Heart Failure, Coronary Artery Disease, Hypertension, Heart Murmur Pulmonary Medical History: Reports: Asthma, Pneumonia Neurological Medical History: Reports: Migraine, Seizures - only r/t low calcium Endocrine Medical History: Reports: Diabetes Mellitus Type 2 Renal/ Medical History: Reports: End Stage Renal Disease - On hemodialysis MWF Malignancy Medical History: GI Medical History: Musculoskeltal Medical History: Skin Medical History: Reports: Psoriasis Psychiatric Medical History: Reports: Depression Hematology: Reports: Anemia Infectious Medical History: Past Surgical History Past Surgical History: Reports: Appendectomy, Cholecystectomy, Vascular Surgery - Lt AV Fistula and graft; Rt AV fistula Denies: Hysterectomy Social History Smoking Status: Never Smoker Frequency of Alcohol Use: None Hx Recreational Drug Use: No Drugs: None Hx Prescription Drug Abuse: No - Advance Directive Resuscitation Status: Full Code Family History Family History: Reviewed & Not Pertinent Parental Family History Reviewed: Yes Children Family History Reviewed: Yes Sibling(s) Family History Reviewed.: Yes Medication/Allergy Home Medications: Nifedipine [Nifedipine ER] 60 mg PO Q12 01/02/19 Oxcarbazepine [Trileptal] 300 mg PO Q12 01/02/19 Oxycodone HCl/Acetaminophen [Percocet 7.5-325 mg Tablet] 1 tab PO Q6HP PRN 01/02/19 Paroxetine HCl [Paxil 20 mg Tablet] 60 mg PO QPM 01/02/19 Calcitriol 0.5 mcg PO DAILY #90 capsule 01/06/19 Albuterol Sulfate [Proair HFA Inhalation Aerosol 8.5 gm MDI] 2 puff IH Q6HP PRN 02/13/19 Buprenorphine HCl [Belbuca] 300 mcg SL Q12 02/13/19 Cetirizine HCl [Zyrtec 10 mg Tablet] 10 mg PO DAILY 02/13/19 Dicyclomine HCl [Bentyl 20 mg Tablet] 20 mg PO QIDP PRN 02/13/19 Doxepin HCl [Silenor] 6 mg PO QHS 02/13/19 Fluticasone Propionate [Flonase Nasal [place] 50 Mcg/[place] 16 gm] 1 spray NASL DAILY 02/13/19 Omeprazole 40 mg PO DAILY 02/13/19 Ondansetron HCl [Zofran 8 mg Tablet] 8 mg PO Q12 02/13/19 Promethazine HCl [Phenergan 25 mg Tablet] 25 mg PO Q8HP PRN 02/13/19 Allergies/Adverse Reactions: aspirin [Aspirin] Allergy (Verified 11/28/18 08:13) Anaphylaxis ciprofloxacin [From Cipro] Allergy (Verified 11/28/18 08:13) Anaphylaxis clindamycin [Clindamycin] Allergy (Verified 11/28/18 08:13) hydrocodone [From Vicodin] Allergy (Verified 11/28/18 08:13) ibuprofen [From Motrin] Allergy (Verified 11/28/18 08:13) Anaphylaxis lidocaine [From Lidoderm] Allergy (Verified 11/28/18 08:13) Generalized rash tramadol HCl [From Ultram] Allergy (Verified 11/28/18 08:13) vancomycin [Vancomycin] Allergy (Verified 11/28/18 08:13) Shortness of Breath nitroglycerin [Nitroglycerin] Adverse Reaction (Intermediate, Verified 11/28/18 08:13) Joint pain Review of Systems Constitutional: ABSENT: chills, fever(s), headache(s), weight gain, weight loss Eyes: ABSENT: visual disturbances Ears: ABSENT: hearing changes Cardiovascular: PRESENT: dyspnea on exertion Respiratory: PRESENT: dyspnea Gastrointestinal: ABSENT: abdominal pain, constipation, diarrhea, hematemesis, hematochezia, nausea, vomiting Genitourinary: ABSENT: dysuria, hematuria Musculoskeletal: ABSENT: joint swelling Integumentary: ABSENT: rash, wounds Neurological: ABSENT: abnormal gait, abnormal speech, confusion, dizziness, focal weakness, syncope Psychiatric: ABSENT: anxiety, depression, homidical ideation, suicidal ideation Endocrine: ABSENT: cold intolerance, heat intolerance, menstrual abnormalities, polydipsia, polyuria Hematologic/Lymphatic: ABSENT: easy bleeding, easy bruising, lymphadenopathy Physical Exam Vital Signs: Temp Pulse Resp BP Pulse Ox 99.1 F 84 21 H 113/73 100 02/13/19 11:45 02/13/19 11:45 02/13/19 12:00 02/13/19 11:45 02/13/19 12:00 Intake & Output 02/12/19 02/13/19 02/14/19 06:59 06:59 06:59 Intake Total 0.5 Balance 0.5 Weight 121.6 kg General appearance: PRESENT: other - Patient is alert with a facemask Head exam: PRESENT: atraumatic, normocephalic Eye exam: PRESENT: PERRLA Ear exam: PRESENT: normal external ear exam Neck exam: PRESENT: full ROM Respiratory exam: PRESENT: clear to auscultation freddy, rhonchi Cardiovascular exam: PRESENT: RRR, +S1, +S2 Pulses: PRESENT: normal dorsalis pedis pul, +2 pedal pulses bilateral Vascular exam: PRESENT: normal capillary refill GI/Abdominal exam: PRESENT: normal bowel sounds, soft Rectal exam: PRESENT: deferred Neurological exam: PRESENT: alert, CN II-XII grossly intact Psychiatric exam: PRESENT: appropriate affect, normal mood Skin exam: PRESENT: dry, intact, warm Results Laboratory Results: 02/13/19 07:40 02/13/19 07:40 02/13/19 02/13/19 02/13/19 07:40 07:40 09:48 WBC 22.7 H RBC 3.34 L Hgb 9.9 L Hct 30.1 L MCV 90 MCH 29.6 MCHC 32.9 RDW 15.3 H Plt Count 433 Seg Neutrophils % Not Reportable Lymphocytes % Not Reportable Monocytes % Not Reportable Eosinophils % Not Reportable Basophils % Not Reportable Absolute Neutrophils Not Reportable Absolute Lymphocytes Not Reportable Absolute Monocytes Not Reportable Absolute Eosinophils Not Reportable Absolute Basophils Not Reportable Sodium 135.6 L Potassium 6.1 H* Chloride 91 L Carbon Dioxide 21 L Anion Gap 24 H BUN 70 H Creatinine 11.97 H Est GFR ( Amer) 4 L Est GFR (Non-Af Amer) 4 L Glucose 356 H Lactic Acid 1.6 Calcium 7.2 L Total Bilirubin 0.5 AST 51 H ALT 10 Alkaline Phosphatase 223 H Total Protein 9.1 H Albumin 4.8 02/13/19 02/13/19 07:40 15:35 Troponin I < 0.012 0.022 NT-Pro-B Natriuret Pep [id number] H Impressions: Chest X-Ray 02/13/19 07:24 IMPRESSION: There is new, multifocal heterogeneous pulmonary opacity, most conspicuous in the right upper lobe and right lower lobe although also noted in the lingula. Findings are most concerning for multifocal infection although profound, asymmetric pulmonary edema may also have this appearance. Assessment & Plan - Diagnosis (1) Acute pulmonary edema Is this a current diagnosis for this admission?: Yes Plan: Patient require emergency hemodialysis (2) Acute hypoxemic respiratory failure Is this a current diagnosis for this admission?: Yes Plan: continue NIPPV,BIPAP (3) Acute diastolic heart failure Is this a current diagnosis for this admission?: Yes (4) End stage renal disease on dialysis Is this a current diagnosis for this admission?: Yes (5) Hyperkalemia Is this a current diagnosis for this admission?: Yes (6) Diabetes mellitus type 1 with complications Is this a current diagnosis for this admission?: Yes Plan: continue present treatment (7) Obesity, morbid, BMI 40.0-49.9 Is this a current diagnosis for this admission?: Yes
--- NOTE | 2019-02-13 21:22 | EKG REPORT ---
SEVERITY:- ABNORMAL ECG - SINUS RHYTHM BORDERLINE LEFT AXIS DEVIATION PROLONGED QT INTERVAL : Confirmed by: Beatriz Leyva MD 13-Feb-2019 21:22:10
[2019-02-13] MEDS ORDERED: (PENDING PHARMACY ID) (Doxepin Hcl [Silenor] 6 MG) PO SCH (22:45)
[2019-02-13] MEDS ORDERED: ONDANSETRON HCL 8 MG TABLET PO ONE (23:59)
[2019-02-13] MEDS ORDERED: PAROXETINE HCL 20 MG TABLET PO ONE (23:59)
[2019-02-13] MEDS ORDERED: OXCARBAZEPINE 150 MG TABLET PO ONE (23:59)
[2019-02-13] MEDS ORDERED: BUPROPION HCL 100 MG TABLET PO ONE (23:59)
[2019-02-13] MEDS ORDERED: NIFEDIPINE 30 MG TAB.ER.24 PO ONE (23:59)
[2019-02-14] MEDS: HEPARIN SOD (PORCINE) 5,000 UNIT/ML 1 ML SYRINGE SUBCUT SCH ×3 (05:20→21:28)
[2019-02-14] MEDS: PANTOPRAZOLE SODIUM 40 MG TABLET.DR PO SCH (05:20)
[2019-02-14] MEDS: OXYCODONE-ACETAMINOPHEN 5-325 MG TABLET PO PRN ×2 (05:20→20:50)
[2019-02-14 06:13] LABS: ABSOLUTE BASOPHILS # (AUTO) 0.1 10^3/uL (0.0-0.2); ABSOLUTE EOSINOPHILS # (AUTO) 0.6 10^3/uL (0.0-0.6); ABSOLUTE LYMPHOCYTES (AUTO) 2.3 10^3/uL (0.5-4.7); ABSOLUTE MONOCYTES (AUTO) 0.7 10^3/uL (0.1-1.4); ABSOLUTE NEUT (AUTO) 7.6 10^3/uL (1.7-8.2); BASOPHILS % (AUTO) 0.7 % (0-2); HEMOGLOBIN 8.1 g/dL (12.0-15.5); LYMPHOCYTES % (AUTO) 20.7 % (13-45); MEAN CORPUSCULAR HEMOGLOBIN 29.7 pg (27.0-33.4); MEAN CORPUSCULAR HGB CONC 33.7 g/dL (32.0-36.0); MEAN CORPUSCULAR VOLUME 88 fl (80-97); MONOCYTES % (AUTO) 5.9 % (3-13); PLATELET COUNT 284 10^3/uL (150-450); RED BLOOD COUNT 2.71 10^6/uL (3.72-5.28); RED CELL DISTRIBUTION WIDTH 15.3 % (11.5-14.0); SEGMENTED NEUTROPHILS % (AUTO) 67.7 % (42-78); TOTAL CELLS COUNTED % (AUTO) 100 %; WHITE BLOOD COUNT 11.2 10^3/uL (4.0-10.5)
[2019-02-14] MEDS: BUPROPION HCL 100 MG TABLET PO SCH ×2 (09:26→21:27)
[2019-02-14] MEDS: CALCITRIOL 0.25 MCG CAPSULE PO SCH (09:26)
[2019-02-14] MEDS: CETIRIZINE 10 MG TABLET PO SCH (09:26)
[2019-02-14] MEDS: OXCARBAZEPINE 150 MG TABLET PO SCH ×2 (09:26→21:27)
[2019-02-14] MEDS: OXYCODONE HCL IR 5 MG TABLET PO PRN (09:27)
[2019-02-14] MEDS: NIFEDIPINE 30 MG TAB.ER.24 PO SCH ×2 (09:27→23:50)
[2019-02-14] MEDS: ONDANSETRON HCL 8 MG TABLET PO SCH ×2 (09:27→21:27)
[2019-02-14] MEDS: FLUTICASONE NASAL SPRAY 50 MCG/SPRY 120 SPRAY/16 GM NASL SCH ×2 (09:27→10:13)
[2019-02-14] MEDS: ALBUTEROL SULFATE HFA (90 MCG/PUFF) 200 PUFF/8.5 GM MDI IH PRN (10:15)
[2019-02-14 10:30] LABS: ALANINE AMINOTRANSFERASE 16 U/L (9-52); ALBUMIN 3.6 g/dL (3.5-5.0); ALKALINE PHOSPHATASE 158 U/L (38-126); ANION GAP 16 (5-19); ASPARTATE AMINO TRANSFERASE 17 U/L (14-36); BILIRUBIN,DIRECT 0.6 mg/dL (0.0-0.4); BILIRUBIN,TOTAL 0.6 mg/dL (0.2-1.3); BLOOD UREA NITROGEN 47 mg/dL (7-20); CARBON DIOXIDE 27 mmol/L (22-30); CHLORIDE 92 mmol/L (98-107); GLUCOSE 312 mg/dL (75-110); POTASSIUM 4.9 mmol/L (3.6-5.0); SODIUM 135.3 mmol/L (137-145); TOTAL PROTEIN 6.8 g/dL (6.3-8.2)
[2019-02-14 10:48] LABS: CALCIUM 7.2 mg/dL (8.4-10.2)
[2019-02-14] MEDS ORDERED: DEXTROSE 50%-WATER SYRINGE 25 GM/50 ML DOSE IV PRN (11:00)
[2019-02-14] MEDS ORDERED: GLUCAGON,HUMAN RECOMB 1 MG INJ IM PRN (11:00)
[2019-02-14] MEDS ORDERED: DEXTROSE 40% GEL 15 GM TUBE X 2 PO PRN (11:00)
[2019-02-14] MEDS ORDERED: DEXTROSE 50%-WATER SYRINGE 12.5 GM/25 ML DOSE IV PRN (11:00)
[2019-02-14] MEDS ORDERED: DEXTROSE 40% GEL 15 GM TUBE PO PRN (11:00)
[2019-02-14] MEDS: INSULIN REG, HUMAN 100 UNIT/ML 3 ML VIAL (PYX) SUBCUT SCH ×3 (11:09→21:28)
--- NOTE | 2019-02-14 12:16 | PDOC PROGRESS REPORT ---
Subjective Progress Note for:: 02/14/19 Subjective:: Patient is feeling a little bit better today. Currently just on nasal cannula, more awake and communicating. She said that when she came in she had a one episode of coughing out some frothy and blood-streaked sputum but only one time. She also complains of some tremors and jerking of her upper extremities that she cannot control which is acute in onset. Reason For Visit: ACUTE CHRONIC SYSTOLIC CHF Physical Exam Vital Signs: Temp Pulse Resp BP Pulse Ox 98.7 F 88 19 103/54 L 96 02/14/19 07:33 02/14/19 07:33 02/14/19 07:33 02/14/19 07:33 02/14/19 07:33 Intake & Output 02/13/19 02/14/19 02/15/19 06:59 06:59 06:59 Intake Total 0.5 Output Total 4000 Balance -3999.5 Weight 121.6 kg Exam: General appearance: [PRESENT: no acute distress, cooperative, well-developed, well-nourished] Head exam: [PRESENT: atraumatic, normocephalic] Eye exam: [PRESENT: conjunctiva slightly pale, PERRLA. ABSENT: scleral icterus] Neck exam: [ABSENT: JVD] Respiratory exam: [PRESENT: Diminished breath sounds. ABSENT: crackles, rales, rhonchi, unlabored, wheezes] Cardiovascular exam: [PRESENT: Regular rate rhythm -+S1, +S2. ABSENT: diastolic murmur, systolic murmur] GI/Abdominal exam: [PRESENT: normal bowel sounds, soft. ABSENT: guarding, mass, tenderness] Extremities exam: [Trace bilateral lower extremities edema] Neurological exam: [PRESENT: alert, awake, oriented to person, place and time.] Skin exam: [PRESENT: dry, warm,] Results Laboratory Results: 02/14/19 05:49 02/14/19 09:53 02/14/19 02/14/19 05:49 09:53 WBC 11.2 H RBC 2.71 L Hgb 8.1 L Hct 24.0 L MCV 88 MCH 29.7 MCHC 33.7 RDW 15.3 H Plt Count 284 Seg Neutrophils % 67.7 Lymphocytes % 20.7 Monocytes % 5.9 Eosinophils % 5.0 Basophils % 0.7 Absolute Neutrophils 7.6 Absolute Lymphocytes 2.3 Absolute Monocytes 0.7 Absolute Eosinophils 0.6 Absolute Basophils 0.1 Sodium 135.3 L Potassium 4.9 Chloride 92 L Carbon Dioxide 27 Anion Gap 16 BUN 47 H Creatinine 9.16 H Est GFR ( Amer) 6 L Est GFR (Non-Af Amer) 5 L Glucose 312 H Calcium 7.2 L Total Bilirubin 0.6 AST 17 ALT 16 Alkaline Phosphatase 158 H Total Protein 6.8 Albumin 3.6 02/13/19 02/13/19 07:40 15:35 Troponin I < 0.012 0.022 NT-Pro-B Natriuret Pep [id number] H Impressions: Chest X-Ray 02/13/19 07:24 IMPRESSION: There is new, multifocal heterogeneous pulmonary opacity, most conspicuous in the right upper lobe and right lower lobe although also noted in the lingula. Findings are most concerning for multifocal infection although profound, asymmetric pulmonary edema may also have this appearance. Assessment & Plan - Diagnosis (1) Acute hypoxemic respiratory failure Is this a current diagnosis for this admission?: Yes Plan: Resolved after ultrafiltration with dialysis yesterday. (2) Acute diastolic (congestive) heart failure Is this a current diagnosis for this admission?: Yes Plan: Improved with ultrafiltration yesterday. (3) Acute pulmonary edema Is this a current diagnosis for this admission?: Yes Plan: Clinically improving. Recommend repeat chest x-ray after hemodialysis tomorrow. (4) ESRD (end stage renal disease) on dialysis Is this a current diagnosis for this admission?: Yes Plan: Plan for dialysis tomorrow morning. (5) Anemia in chronic kidney disease (CKD) Is this a current diagnosis for this admission?: Yes Plan: We will give Procrit on dialysis. (6) Diabetes mellitus type 1 Qualifiers: Diabetes mellitus complication status: with unspecified complications Qualified Code(s): E10.8 - Type 1 diabetes mellitus with unspecified complications Is this a current diagnosis for this admission?: Yes (7) Hyperkalemia Is this a current diagnosis for this admission?: Yes Plan: Resolved with dialysis. (8) Hypertension Qualifiers: Hypertension type: essential hypertension Qualified Code(s): I10 - Essential (primary) hypertension Is this a current diagnosis for this admission?: Yes Plan: Currently on the low side. Blood pressure medications including nifedipine was held today. (9) Morbid obesity Is this a current diagnosis for this admission?: Yes (10) Occasional tremors Is this a current diagnosis for this admission?: Yes Plan: Uncertain etiology. Possibly due to uremia which we expect resolved with dialysis treatments versus neurologic disorder. Further workup deferred to primary provider. - Time Time with patient: 15-25 minutes
[2019-02-14] MEDS: PAROXETINE HCL 20 MG TABLET PO SCH (17:38)
--- NOTE | 2019-02-14 21:35 | PDOC PROGRESS REPORT ---
Subjective Progress Note for:: 02/14/19 Subjective:: Patient seen by the bedside Reason For Visit: ACUTE CHRONIC SYSTOLIC CHF Physical Exam Vital Signs: Temp Pulse Resp BP Pulse Ox 99.3 F 94 22 H 118/54 L 95 02/14/19 20:00 02/14/19 20:00 02/14/19 20:00 02/14/19 20:00 02/14/19 20:00 Intake & Output 02/13/19 02/14/19 02/15/19 06:59 06:59 06:59 Intake Total 0.5 472 Output Total 4000 Balance -3999.5 472 Weight 121.6 kg 121.6 kg General appearance: PRESENT: no acute distress Eye exam: PRESENT: PERRLA Respiratory exam: PRESENT: clear to auscultation freddy Cardiovascular exam: PRESENT: +S1, +S2 GI/Abdominal exam: PRESENT: soft Neurological exam: PRESENT: alert Results Laboratory Results: 02/14/19 05:49 02/14/19 09:53 02/14/19 02/14/19 05:49 09:53 WBC 11.2 H RBC 2.71 L Hgb 8.1 L Hct 24.0 L MCV 88 MCH 29.7 MCHC 33.7 RDW 15.3 H Plt Count 284 Seg Neutrophils % 67.7 Lymphocytes % 20.7 Monocytes % 5.9 Eosinophils % 5.0 Basophils % 0.7 Absolute Neutrophils 7.6 Absolute Lymphocytes 2.3 Absolute Monocytes 0.7 Absolute Eosinophils 0.6 Absolute Basophils 0.1 Sodium 135.3 L Potassium 4.9 Chloride 92 L Carbon Dioxide 27 Anion Gap 16 BUN 47 H Creatinine 9.16 H Est GFR ( Amer) 6 L Est GFR (Non-Af Amer) 5 L Glucose 312 H Calcium 7.2 L Total Bilirubin 0.6 AST 17 ALT 16 Alkaline Phosphatase 158 H Total Protein 6.8 Albumin 3.6 02/13/19 02/13/19 07:40 15:35 Troponin I < 0.012 0.022 NT-Pro-B Natriuret Pep [id number] H Impressions: Chest X-Ray 02/13/19 07:24 IMPRESSION: There is new, multifocal heterogeneous pulmonary opacity, most conspicuous in the right upper lobe and right lower lobe although also noted in the lingula. Findings are most concerning for multifocal infection although profound, asymmetric pulmonary edema may also have this appearance. Assessment & Plan - Diagnosis (1) Acute pulmonary edema Is this a current diagnosis for this admission?: Yes (2) Acute hypoxemic respiratory failure Is this a current diagnosis for this admission?: Yes (3) Acute diastolic heart failure Is this a current diagnosis for this admission?: Yes (4) End stage renal disease on dialysis Is this a current diagnosis for this admission?: Yes (5) Hyperkalemia Is this a current diagnosis for this admission?: Yes (6) Diabetes mellitus type 1 with complications Is this a current diagnosis for this admission?: Yes (7) Obesity, morbid, BMI 40.0-49.9 Is this a current diagnosis for this admission?: Yes
[2019-02-14] MEDS: PROMETHAZINE HCL 25 MG TABLET PO PRN (22:51)
[2019-02-15] MEDS ORDERED: EPOETIN ALFA INJ 20000 UNIT/1 ML VIAL (RENAL) IV PRN (05:00)
[2019-02-15] MEDS ORDERED: HEPARIN SOD (PORCINE) 1,000 UNIT/ML 10 ML VIAL IV PRN (05:00)
[2019-02-15 05:47] LABS: ABSOLUTE BASOPHILS # (AUTO) 0.1 10^3/uL (0.0-0.2); ABSOLUTE EOSINOPHILS # (AUTO) 0.5 10^3/uL (0.0-0.6); ABSOLUTE LYMPHOCYTES (AUTO) 1.9 10^3/uL (0.5-4.7); ABSOLUTE MONOCYTES (AUTO) 1.1 10^3/uL (0.1-1.4); ABSOLUTE NEUT (AUTO) 7.8 10^3/uL (1.7-8.2); BASOPHILS % (AUTO) 0.6 % (0-2); EOSINOPHILS % (AUTO) 4.1 % (0-6); HEMATOCRIT 22.1 % (36.0-47.0); LYMPHOCYTES % (AUTO) 17.2 % (13-45); MEAN CORPUSCULAR HEMOGLOBIN 29.1 pg (27.0-33.4); MEAN CORPUSCULAR VOLUME 88 fl (80-97); MONOCYTES % (AUTO) 9.4 % (3-13); PLATELET COUNT 272 10^3/uL (150-450); RED CELL DISTRIBUTION WIDTH 15.5 % (11.5-14.0); SEGMENTED NEUTROPHILS % (AUTO) 68.7 % (42-78); TOTAL CELLS COUNTED % (AUTO) 100 %; WHITE BLOOD COUNT 11.3 10^3/uL (4.0-10.5)
[2019-02-15] MEDS: HEPARIN SOD (PORCINE) 5,000 UNIT/ML 1 ML SYRINGE SUBCUT SCH ×4 (05:56→21:13)
[2019-02-15] MEDS: PANTOPRAZOLE SODIUM 40 MG TABLET.DR PO SCH (05:56)
[2019-02-15 06:01] LABS: HEMOGLOBIN 7.3 g/dL (12.0-15.5)
[2019-02-15 06:10] LABS: ALANINE AMINOTRANSFERASE 22 U/L (9-52); ALBUMIN 3.8 g/dL (3.5-5.0); ALKALINE PHOSPHATASE 163 U/L (38-126); ANION GAP 17 (5-19); ASPARTATE AMINO TRANSFERASE 13 U/L (14-36); BILIRUBIN,DIRECT 0.4 mg/dL (0.0-0.4); BILIRUBIN,TOTAL 0.4 mg/dL (0.2-1.3); BLOOD UREA NITROGEN 56 mg/dL (7-20); CARBON DIOXIDE 24 mmol/L (22-30); CHLORIDE 94 mmol/L (98-107); GLUCOSE 139 mg/dL (75-110); PHOSPHORUS 7.9 mg/dL (2.5-4.5); SODIUM 134.9 mmol/L (137-145); TOTAL PROTEIN 7.2 g/dL (6.3-8.2)
[2019-02-15 06:24] LABS: CALCIUM 6.7 mg/dL (8.4-10.2)
[2019-02-15] MEDS: INSULIN REG, HUMAN 100 UNIT/ML 3 ML VIAL (PYX) SUBCUT SCH ×4 (07:51→21:13)
[2019-02-15] MEDS ORDERED: CALCIUM GLUCONATE 1000 MG/10 ML INJ IV PRN (09:23)
--- NOTE | 2019-02-15 09:38 | PDOC PROGRESS REPORT ---
Subjective Progress Note for:: 02/15/19 Subjective:: I am seeing the patient during dialysis treatment this morning. She is still sleepy but arousable and communicative. She remains to be a nasal cannula and does not seem to be in any respiratory distress. This morning she started complaining of some buzzing in her right ear. She says she still had tremors but I do not see it currently. Otherwise she is tolerating dialysis well so far without any problems. Reason For Visit: ACUTE CHRONIC SYSTOLIC CHF Physical Exam Vital Signs: Temp Pulse Resp BP Pulse Ox 98.8 F 95 24 H 96/38 L 95 02/15/19 08:28 02/15/19 08:28 02/15/19 08:28 02/15/19 08:28 02/15/19 08:28 Intake & Output 02/14/19 02/15/19 02/16/19 06:59 06:59 06:59 Intake Total 0.5 694 Output Total 4000 Balance -3999.5 694 Weight 121.6 kg 122.2 kg Vitals during dialysis: Blood pressure 125/50, heart rate of 92, blood flow 450 mL/min, and dialysate flow of 800 mL/min. Currently on oxygen at 4 L by nasal cannula. Exam: General appearance: PRESENT: no acute distress, cooperative, well-developed, well-nourished Head exam: PRESENT: atraumatic, normocephalic Eye exam: PRESENT: conjunctiva pale, positive mild supraorbital edema on upper eyelids also with some facial swelling PERRLA. ABSENT: scleral icterus Neck exam: ABSENT: JVD Respiratory exam: PRESENT: Diminished breath sounds. ABSENT: crackles, rales, rhonchi, unlabored, wheezes Cardiovascular exam: PRESENT: Regular rate rhythm -+S1, +S2. ABSENT: diastolic murmur, systolic murmur GI/Abdominal exam: PRESENT: normal bowel sounds, soft. ABSENT: guarding, mass, tenderness Extremities exam: ABSENT: No edema Neurological exam: PRESENT: Slightly lethargic as above, oriented to person, place and time. Skin exam: PRESENT: dry, warm, Results Laboratory Results: 02/15/19 05:04 02/15/19 05:04 02/14/19 02/15/19 02/15/19 09:53 05:04 05:04 WBC 11.3 H RBC 2.50 L Hgb 7.3 L Hct 22.1 L MCV 88 MCH 29.1 MCHC 33.0 RDW 15.5 H Plt Count 272 Seg Neutrophils % 68.7 Lymphocytes % 17.2 Monocytes % 9.4 Eosinophils % 4.1 Basophils % 0.6 Absolute Neutrophils 7.8 Absolute Lymphocytes 1.9 Absolute Monocytes 1.1 Absolute Eosinophils 0.5 Absolute Basophils 0.1 Sodium 135.3 L 134.9 L Potassium 4.9 5.0 Chloride 92 L 94 L Carbon Dioxide 27 24 Anion Gap 16 17 BUN 47 H 56 H Creatinine 9.16 H 10.43 H Est GFR ( Amer) 6 L 5 L Est GFR (Non-Af Amer) 5 L 4 L Glucose 312 H 139 H Calcium 7.2 L 6.7 L* Phosphorus 7.9 H Magnesium 2.3 Total Bilirubin 0.6 0.4 AST 17 13 L ALT 16 22 Alkaline Phosphatase 158 H 163 H Total Protein 6.8 7.2 Albumin 3.6 3.8 02/13/19 02/13/19 07:40 15:35 Troponin I < 0.012 0.022 NT-Pro-B Natriuret Pep [id number] H Impressions: Chest X-Ray 02/13/19 07:24 IMPRESSION: There is new, multifocal heterogeneous pulmonary opacity, most conspicuous in the right upper lobe and right lower lobe although also noted in the lingula. Findings are most concerning for multifocal infection although profound, asymmetric pulmonary edema may also have this appearance. Assessment & Plan - Diagnosis (1) Acute hypoxemic respiratory failure Is this a current diagnosis for this admission?: Yes Plan: Resolved after ultrafiltration with dialysis . Currently maintained on oxygen by nasal cannula. (2) Acute diastolic (congestive) heart failure Is this a current diagnosis for this admission?: Yes Plan: Improved with ultrafiltration . (3) Acute pulmonary edema Is this a current diagnosis for this admission?: Yes Plan: Clinically improving. Recommend repeat chest x-ray after hemodialysis today. (4) ESRD (end stage renal disease) on dialysis Is this a current diagnosis for this admission?: Yes Plan: We will do dialysis today for 3.5 hours, using the patient's right upper arm AV fistula, with 1K for 1 hour and then 2 potassium bath, blood flow rate of 450 mL per minute, dialysate flow rate of 800 mL per minute, ultrafiltration 4-5 L as tolerated, heparin with 3000 units bolus followed by 500 units an hour and Procrit with 20,000 units during dialysis intravenously. Dialysis treatment prescription discussed with our dialysis nurses. Patient will be monitored toward throughout dialysis treatment. Ultrafiltration adjusted according to patient's blood pressure and response. Patient will be given IV calcium gluconate during dialysis treatment. (5) Anemia in chronic kidney disease (CKD) Is this a current diagnosis for this admission?: Yes Plan: We will give Procrit on dialysis. We will check stool for occult blood. No evidence of any active bleeding clinically. Her drop in hemoglobin may be due to hemodilution due to fluid overload. (6) Diabetes mellitus type 1 Qualifiers: Diabetes mellitus complication status: with unspecified complications Qualified Code(s): E10.8 - Type 1 diabetes mellitus with unspecified complications Is this a current diagnosis for this admission?: Yes (7) Hyperkalemia Is this a current diagnosis for this admission?: Yes Plan: Resolved with dialysis. Continue to monitor though. (8) Hypertension Qualifiers: Hypertension type: essential hypertension Qualified Code(s): I10 - Essential (primary) hypertension Is this a current diagnosis for this admission?: Yes Plan: Currently on the low side. Blood pressure medications including nifedipine was held today. (9) Hypocalcemia Is this a current diagnosis for this admission?: Yes Plan: We will give the patient 2 A of calcium gluconate intravenously during dialysis treatment. We will check her phosphorus level. (10) Occasional tremors Is this a current diagnosis for this admission?: Yes Plan: Possibly due to hypocalcemia. We will correct calcium level and see if this improves hopefully. (11) Morbid obesity Is this a current diagnosis for this admission?: Yes - Time Time with patient: 15-25 minutes
[2019-02-15] MEDS ORDERED: CALCIUM GLUCONATE 2,000 MG in DEXTROSE 5%-WATER 100 ML IV PRN (10:43)
[2019-02-15] MEDS: FLUTICASONE NASAL SPRAY 50 MCG/SPRY 120 SPRAY/16 GM NASL SCH (12:47)
[2019-02-15] MEDS: NIFEDIPINE 30 MG TAB.ER.24 PO SCH ×2 (12:47→21:14)
[2019-02-15] MEDS: CETIRIZINE 10 MG TABLET PO SCH (12:53)
[2019-02-15] MEDS: BUPROPION HCL 100 MG TABLET PO SCH ×2 (12:53→21:16)
[2019-02-15] MEDS: CALCITRIOL 0.25 MCG CAPSULE PO SCH (12:54)
[2019-02-15] MEDS: CALCIUM ACETATE 667 MG CAPSULE PO SCH ×2 (12:54→16:39)
[2019-02-15] MEDS: OXCARBAZEPINE 150 MG TABLET PO SCH ×2 (12:55→21:15)
[2019-02-15] MEDS: ONDANSETRON HCL 8 MG TABLET PO SCH ×2 (12:55→21:16)
--- NOTE | 2019-02-15 12:57 | RADIOLOGY REPORT (SQ) ---
EXAM DESCRIPTION: CHEST 2 VIEWS COMPLETED DATE/TIME: 02/15/2019 12:36 pm REASON FOR STUDY: Pulmonary edema COMPARISON: Chest films 02/13/2019, 01/05/2019, 01/02/2019 EXAM PARAMETERS: NUMBER OF VIEWS: two views TECHNIQUE: Digital Frontal and Lateral radiographic views of the chest acquired. RADIATION DOSE: NA LIMITATIONS: none FINDINGS: LUNGS AND PLEURA: Diffuse bilateral alveolar infiltrates worrisome for pulmonary edema. P neumonia could have this appearance. This is partially cleared compared to 02/13/2019. No gross pleural effusions. No pneumothorax. MEDIASTINUM AND HILAR STRUCTURES: No masses or contour abnormalities. HEART AND VASCULAR STRUCTURES: Stable mild cardiomegaly BONES: No acute findings. HARDWARE: Old right axillary and subclavian vein stent OTHER: No other significant finding. IMPRESSION: Partial clearing of the diffuse bilateral airspace disease as compared to 02/13/2019. TECHNICAL DOCUMENTATION: JOB ID: [id number] [employer]- All Rights Reserved Reading location - IP/workstation name: [email or web address]
[2019-02-15] MEDS: OXYCODONE HCL IR 5 MG TABLET PO PRN (13:01)
[2019-02-15] MEDS: CALCIUM CARBONATE 500 MG TAB.CHEW PO SCH ×2 (16:39→21:13)
--- NOTE | 2019-02-15 17:06 | PDOC PROGRESS REPORT ---
Subjective Progress Note for:: 02/15/19 Subjective:: Patient was seen by the bedside she complain of involuntary movement of the extremities, she told Me this symptom is from this admission is not a chronic problem for her I suspect this is tetany from hypocalcemia Reason For Visit: ACUTE CHRONIC SYSTOLIC CHF Physical Exam Vital Signs: Temp Pulse Resp BP Pulse Ox 99.2 F 104 H 24 H 131/64 H 93 02/15/19 16:00 02/15/19 16:00 02/15/19 16:00 02/15/19 16:00 02/15/19 16:00 Intake & Output 02/14/19 02/15/19 02/16/19 06:59 06:59 06:59 Intake Total 0.5 694 466 Output Total 4000 4900 Balance -3999.5 694 -4489 Weight 121.6 kg 122.2 kg General appearance: PRESENT: no acute distress Eye exam: PRESENT: PERRLA Respiratory exam: PRESENT: clear to auscultation freddy Cardiovascular exam: PRESENT: +S1, +S2 GI/Abdominal exam: PRESENT: soft Neurological exam: PRESENT: alert Results Laboratory Results: 02/15/19 05:04 02/15/19 05:04 02/15/19 02/15/19 05:04 05:04 WBC 11.3 H RBC 2.50 L Hgb 7.3 L Hct 22.1 L MCV 88 MCH 29.1 MCHC 33.0 RDW 15.5 H Plt Count 272 Seg Neutrophils % 68.7 Lymphocytes % 17.2 Monocytes % 9.4 Eosinophils % 4.1 Basophils % 0.6 Absolute Neutrophils 7.8 Absolute Lymphocytes 1.9 Absolute Monocytes 1.1 Absolute Eosinophils 0.5 Absolute Basophils 0.1 Sodium 134.9 L Potassium 5.0 Chloride 94 L Carbon Dioxide 24 Anion Gap 17 BUN 56 H Creatinine 10.43 H Est GFR ( Amer) 5 L Est GFR (Non-Af Amer) 4 L Glucose 139 H Calcium 6.7 L* Phosphorus 7.9 H Magnesium 2.3 Total Bilirubin 0.4 AST 13 L ALT 22 Alkaline Phosphatase 163 H Total Protein 7.2 Albumin 3.8 02/13/19 02/13/19 07:40 15:35 Troponin I < 0.012 0.022 NT-Pro-B Natriuret Pep [id number] H Impressions: Chest X-Ray 02/15/19 00:00 IMPRESSION: Partial clearing of the diffuse bilateral airspace disease as compared to 02/13/2019. Assessment & Plan - Diagnosis (1) Acute pulmonary edema Is this a current diagnosis for this admission?: Yes (2) Acute hypoxemic respiratory failure Is this a current diagnosis for this admission?: Yes (3) Acute diastolic heart failure Is this a current diagnosis for this admission?: Yes (4) End stage renal disease on dialysis Is this a current diagnosis for this admission?: Yes (5) Hyperkalemia Is this a current diagnosis for this admission?: Yes (6) Diabetes mellitus type 1 with complications Is this a current diagnosis for this admission?: Yes (7) Obesity, morbid, BMI 40.0-49.9 Is this a current diagnosis for this admission?: Yes (8) [place] Is this a current diagnosis for this admission?: Yes (9) Hypocalcemia Is this a current diagnosis for this admission?: Yes Plan: Correct hypocalcemia
[2019-02-15] MEDS: PAROXETINE HCL 20 MG TABLET PO SCH (17:23)
[2019-02-15] MEDS: OXYCODONE-ACETAMINOPHEN 5-325 MG TABLET PO PRN (23:48)
[2019-02-16] MEDS: OXYCODONE HCL IR 5 MG TABLET PO PRN (01:35)
[2019-02-16] MEDS: PANTOPRAZOLE SODIUM 40 MG TABLET.DR PO SCH (05:52)
[2019-02-16] MEDS: OXYCODONE-ACETAMINOPHEN 5-325 MG TABLET PO PRN ×3 (05:52→22:50)
[2019-02-16] MEDS: HEPARIN SOD (PORCINE) 5,000 UNIT/ML 1 ML SYRINGE SUBCUT SCH ×3 (05:52→22:49)
[2019-02-16] MEDS: CALCIUM CARBONATE 500 MG TAB.CHEW PO SCH ×4 (05:52→22:48)
[2019-02-16 06:55] LABS: ABSOLUTE BASOPHILS # (AUTO) 0.1 10^3/uL (0.0-0.2); ABSOLUTE EOSINOPHILS # (AUTO) 0.6 10^3/uL (0.0-0.6); ABSOLUTE LYMPHOCYTES (AUTO) 2.5 10^3/uL (0.5-4.7); ABSOLUTE MONOCYTES (AUTO) 0.6 10^3/uL (0.1-1.4); BASOPHILS % (AUTO) 0.7 % (0-2); EOSINOPHILS % (AUTO) 7.4 % (0-6); HEMATOCRIT 21.7 % (36.0-47.0); LYMPHOCYTES % (AUTO) 32.3 % (13-45); MEAN CORPUSCULAR HEMOGLOBIN 29.8 pg (27.0-33.4); MEAN CORPUSCULAR HGB CONC 33.4 g/dL (32.0-36.0); MEAN CORPUSCULAR VOLUME 89 fl (80-97); MONOCYTES % (AUTO) 7.6 % (3-13); PLATELET COUNT 295 10^3/uL (150-450); RED BLOOD COUNT 2.44 10^6/uL (3.72-5.28); RED CELL DISTRIBUTION WIDTH 15.2 % (11.5-14.0); TOTAL CELLS COUNTED % (AUTO) 100 %; WHITE BLOOD COUNT 7.8 10^3/uL (4.0-10.5)
[2019-02-16 07:00] LABS: HEMOGLOBIN 7.3 g/dL (12.0-15.5)
[2019-02-16] MEDS: INSULIN REG, HUMAN 100 UNIT/ML 3 ML VIAL (PYX) SUBCUT SCH ×4 (09:13→22:49)
[2019-02-16] MEDS: BUPROPION HCL 100 MG TABLET PO SCH ×2 (09:13→22:50)
[2019-02-16] MEDS: NIFEDIPINE 30 MG TAB.ER.24 PO SCH ×2 (09:14→22:50)
[2019-02-16] MEDS: CALCIUM ACETATE 667 MG CAPSULE PO SCH ×3 (09:14→17:27)
[2019-02-16] MEDS: CALCITRIOL 0.25 MCG CAPSULE PO SCH (09:14)
[2019-02-16] MEDS: ONDANSETRON HCL 8 MG TABLET PO SCH ×2 (09:15→22:50)
[2019-02-16] MEDS: FLUTICASONE NASAL SPRAY 50 MCG/SPRY 120 SPRAY/16 GM NASL SCH (09:16)
[2019-02-16] MEDS: OXCARBAZEPINE 150 MG TABLET PO SCH ×2 (09:16→22:50)
[2019-02-16] MEDS: CETIRIZINE 5 MG TABLET PO SCH (09:21)
[2019-02-16] MEDS ORDERED: NORMAL SALINE 250 ML IV PRN (11:23)
[2019-02-16] MEDS ORDERED: BISACODYL 5 MG TABEC PO ONE (11:26)
[2019-02-16] MEDS ORDERED: CALCIUM GLUCONATE 1000 MG/10 ML INJ IV ONE ×2 (11:27→18:00)
--- NOTE | 2019-02-16 11:43 | PDOC PROGRESS REPORT ---
Subjective Progress Note for:: 02/16/19 Subjective:: Patient looks better today clinically. She said her breathing is better. She is actually more awake and communicative. She says she is still having tremors. She continues to complain about ringing in the ears and today she said her vision is sort of blurry like looking through a screen. She is also constipated with last bowel movement last Wednesday. Reason For Visit: ACUTE CHRONIC SYSTOLIC CHF Physical Exam Vital Signs: Temp Pulse Resp BP Pulse Ox 98.0 F 93 19 126/57 H 97 02/16/19 08:36 02/16/19 08:36 02/16/19 08:36 02/16/19 08:36 02/16/19 08:36 Intake & Output 02/15/19 02/16/19 02/17/19 06:59 06:59 06:59 Intake Total 694 466 Output Total 4900 Balance 714 -2612 Weight 122.2 kg 122.3 kg Exam: General appearance: PRESENT: no acute distress, cooperative, well-developed, well-nourished Head exam: PRESENT: atraumatic, normocephalic Eye exam: PRESENT: conjunctiva pale, PERRLA. ABSENT: scleral icterus Neck exam: ABSENT: JVD Respiratory exam: PRESENT: Normal breath sounds. ABSENT: crackles, rales, rhonchi, unlabored, wheezes Cardiovascular exam: PRESENT: Regular rate rhythm -+S1, +S2. ABSENT: diastolic murmur, systolic murmur GI/Abdominal exam: PRESENT: normal bowel sounds, soft. ABSENT: guarding, mass, tenderness Extremities exam: ABSENT: No edema Neurological exam: PRESENT: alert, awake, oriented to person, place and time. Skin exam: PRESENT: dry, warm, Results Laboratory Results: 02/16/19 05:59 02/15/19 05:04 02/16/19 05:59 WBC 7.8 RBC 2.44 L Hgb 7.3 L Hct 21.7 L MCV 89 MCH 29.8 MCHC 33.4 RDW 15.2 H Plt Count 295 Seg Neutrophils % 52.0 Lymphocytes % 32.3 Monocytes % 7.6 Eosinophils % 7.4 H Basophils % 0.7 Absolute Neutrophils 4.0 Absolute Lymphocytes 2.5 Absolute Monocytes 0.6 Absolute Eosinophils 0.6 Absolute Basophils 0.1 02/13/19 02/13/19 07:40 15:35 Troponin I < 0.012 0.022 NT-Pro-B Natriuret Pep 54053 H Impressions: Chest X-Ray 02/15/19 00:00 IMPRESSION: Partial clearing of the diffuse bilateral airspace disease as compared to 02/13/2019. Assessment & Plan - Diagnosis (1) Acute hypoxemic respiratory failure Is this a current diagnosis for this admission?: Yes Plan: Resolved after ultrafiltration with dialysis . Currently maintained on oxygen by nasal cannula. (2) Acute diastolic (congestive) heart failure Is this a current diagnosis for this admission?: Yes Plan: Improved with ultrafiltration . (3) Acute pulmonary edema Is this a current diagnosis for this admission?: Yes Plan: Clinically improving. Repeat chest x-ray showed partial diffuse clearing of airspace densities. (4) ESRD (end stage renal disease) on dialysis Is this a current diagnosis for this admission?: Yes Plan: Next dialysis will be tomorrow. (5) Anemia in chronic kidney disease (CKD) Is this a current diagnosis for this admission?: Yes Plan: Her hemoglobin is still low at 7.3 despite ultrafiltration from dialysis yesterday. There is no source of her sign of any active bleeding clinically. I will do the type and screen 2 units of packed RBC and transfuse 1 unit today and we can potentially transfuse another unit during dialysis tomorrow to prevent fluid overload today. Due to access issue her urine as [address] a central line. (6) Diabetes mellitus type 1 Qualifiers: Diabetes mellitus complication status: with unspecified complications Qualified Code(s): E10.8 - Type 1 diabetes mellitus with unspecified compl ications Is this a current diagnosis for this admission?: Yes (7) Hypocalcemia Is this a current diagnosis for this admission?: Yes Plan: I started the patient on Tums thousand milligrams 4 times daily yesterday since the IV calcium gluconate was unable to be given due to vascular access. After central line placement today we will give her a gram of calcium gluconate intravenously today and continue the Tums as well. (8) Hyperkalemia Is this a current diagnosis for this admission?: Yes Plan: Resolved with dialysis. Continue to monitor though. (9) Hypertension Qualifiers: Hypertension type: essential hypertension Qualified Code(s): I10 - Essential (primary) hypertension Is this a current diagnosis for this admission?: Yes Plan: Controlled. (10) Occasional tremors Is this a current diagnosis for this admission?: Yes Plan: Possibly due to hypocalcemia. We will correct calcium level and see if this improves hopefully. (11) Hyperphosphatemia Is this a current diagnosis for this admission?: Yes Plan: Started on calcium acetate with meals. (12) Constipation Is this a current diagnosis for this admission?: Yes Plan: Start Colace 100 mg twice daily, will give her Dulcolax 10 mg today. We will also order MiraLAX daily as needed. (13) Tinnitus Qualifiers: Laterality: bilateral Qualified Code(s): H93.13 - Tinnitus, bilateral Is this a current diagnosis for this admission?: Yes Plan: Defer to Dr. Singleton. (14) Blurred vision, bilateral Is this a current diagnosis for this admission?: Yes Plan: Defer to Dr. Singleton. (15) Morbid obesity Is this a current diagnosis for this admission?: Yes - Notes Notes: Plan discussed with the patient and her nurse today. - Time Time with patient: 15-25 minutes
[2019-02-16] MEDS: POLYETHYLENE GLYCOL 3350 POWDER 17 GM/1 PACKET PO PRN ×2 (12:22→22:59)
[2019-02-16] MEDS: PROMETHAZINE HCL 25 MG TABLET PO PRN (12:26)
[2019-02-16 12:57] LABS: ABSOLUTE BASOPHILS # (AUTO) 0.1 10^3/uL (0.0-0.2); ABSOLUTE EOSINOPHILS # (AUTO) 0.5 10^3/uL (0.0-0.6); ABSOLUTE LYMPHOCYTES (AUTO) 1.6 10^3/uL (0.5-4.7); ABSOLUTE MONOCYTES (AUTO) 0.5 10^3/uL (0.1-1.4); ABSOLUTE NEUT (AUTO) 4.2 10^3/uL (1.7-8.2); EOSINOPHILS % (AUTO) 6.8 % (0-6); HEMATOCRIT 22.1 % (36.0-47.0); LYMPHOCYTES % (AUTO) 23.2 % (13-45); MEAN CORPUSCULAR HEMOGLOBIN 29.8 pg (27.0-33.4); MEAN CORPUSCULAR HGB CONC 33.6 g/dL (32.0-36.0); MEAN CORPUSCULAR VOLUME 89 fl (80-97); MONOCYTES % (AUTO) 7.6 % (3-13); PLATELET COUNT 340 10^3/uL (150-450); RED BLOOD COUNT 2.49 10^6/uL (3.72-5.28); RED CELL DISTRIBUTION WIDTH 15.4 % (11.5-14.0); SEGMENTED NEUTROPHILS % (AUTO) 61.4 % (42-78); TOTAL CELLS COUNTED % (AUTO) 100 %; WHITE BLOOD COUNT 6.8 10^3/uL (4.0-10.5)
[2019-02-16 12:59] LABS: HEMOGLOBIN 7.4 g/dL (12.0-15.5)
[2019-02-16 13:29] LABS: ALANINE AMINOTRANSFERASE 13 U/L (9-52); ALBUMIN 3.9 g/dL (3.5-5.0); ALKALINE PHOSPHATASE 174 U/L (38-126); ANION GAP 18 (5-19); ASPARTATE AMINO TRANSFERASE 11 U/L (14-36); BILIRUBIN,DIRECT 0.4 mg/dL (0.0-0.4); BILIRUBIN,TOTAL 0.4 mg/dL (0.2-1.3); BLOOD UREA NITROGEN 40 mg/dL (7-20); CALCIUM 7.7 mg/dL (8.4-10.2); CARBON DIOXIDE 28 mmol/L (22-30); CHLORIDE 91 mmol/L (98-107); GLUCOSE 308 mg/dL (75-110); POTASSIUM 4.3 mmol/L (3.6-5.0); SODIUM 137.3 mmol/L (137-145); TOTAL PROTEIN 7.4 g/dL (6.3-8.2)
--- NOTE | 2019-02-16 14:33 | Operative Report ---
Operative Report DATE OF SURGERY: 02/16/19 PREOPERATIVE DIAGNOSIS: Anemia, critical need for intravenous access. POSTOPERATIVE DIAGNOSIS: Anemia, critical need for intravenous access. OPERATION: Right femoral triple-lumen central venous catheter placement under ultrasound guidance SURGEON: PASQUALE CALIX ANESTHESIA: Local TISSUE REMOVED OR ALTERED: None COMPLICATIONS: None ESTIMATED BLOOD LOSS: Minimal INTRAOPERATIVE FINDINGS: None PROCEDURE: Informed consent was obtained. Procedure was done at the patient's bedside. Patient's right groin was prepped and draped in usual sterile fashion. Using the ultrasound the right femoral vein was identified. Local anesthetic was administered. The right femoral vein was entered without difficulty, yielding dark nonpulsatile blood. Guidewire was placed. Triple-lumen central venous catheter was placed via the Seldinger technique without difficulty. It withdrew blood and flushed easily. Dressings were applied. Patient tolerated procedure well with no apparent complications.
[2019-02-16] MEDS: DOCUSATE SODIUM 100 MG CAPSULE PO SCH (17:27)
[2019-02-16] MEDS: PAROXETINE HCL 20 MG TABLET PO SCH (17:27)
[2019-02-16] MEDS: DICYCLOMINE HCL 20 MG TABLET PO PRN (19:34)
--- NOTE | 2019-02-16 20:29 | PDOC PROGRESS REPORT ---
Subjective Progress Note for:: 02/16/19 Subjective:: Patient was seen by the bedside, she complains of ringing sensation of the ears Reason For Visit: ACUTE CHRONIC SYSTOLIC CHF Physical Exam Vital Signs: Temp Pulse Resp BP Pulse Ox 97.6 F 94 18 118/56 L 95 02/16/19 17:31 02/16/19 17:31 02/16/19 17:31 02/16/19 17:31 02/16/19 17:31 Intake & Output 02/15/19 02/16/19 02/17/19 06:59 06:59 06:59 Intake Total 627 898 7891 Output Total 4900 1 Balance 918 -7837 1600 Weight 122.2 kg 122.3 kg General appearance: PRESENT: no acute distress Eye exam: PRESENT: scleral icterus Respiratory exam: PRESENT: clear to auscultation freddy Cardiovascular exam: PRESENT: +S1, +S2 GI/Abdominal exam: PRESENT: soft Neurological exam: PRESENT: alert Results Laboratory Results: 02/16/19 12:36 02/16/19 12:36 02/16/19 02/16/19 02/16/19 05:59 12:36 12:36 WBC 7.8 6.8 RBC 2.44 L 2.49 L Hgb 7.3 L 7.4 L Hct 21.7 L 22.1 L MCV 89 89 MCH 29.8 29.8 MCHC 33.4 33.6 RDW 15.2 H 15.4 H Plt Count 295 340 Seg Neutrophils % 52.0 61.4 Lymphocytes % 32.3 23.2 Monocytes % 7.6 7.6 Eosinophils % 7.4 H 6.8 H Basophils % 0.7 1.0 Absolute Neutrophils 4.0 4.2 Absolute Lymphocytes 2.5 1.6 Absolute Monocytes 0.6 0.5 Absolute Eosinophils 0.6 0.5 Absolute Basophils 0.1 0.1 Sodium 137.3 Potassium 4.3 Chloride 91 L Carbon Dioxide 28 Anion Gap 18 BUN 40 H Creatinine 9.34 H Est GFR ( Amer) 6 L Est GFR (Non-Af Amer) 5 L Glucose 308 H Calcium 7.7 L Total Bilirubin 0.4 AST 11 L ALT 13 Alkaline Phosphatase 174 H Total Protein 7.4 Albumin 3.9 Blood Type Antibody Screen 02/16/19 12:36 WBC RBC Hgb Hct MCV MCH MCHC RDW Plt Count Seg Neutrophils % Lymphocytes % Monocytes % Eosinophils % Basophils % Absolute Neutrophils Absolute Lymphocytes Absolute Monocytes Absolute Eosinophils Absolute Basophils Sodium Potassium Chloride Carbon Dioxide Anion Gap BUN Creatinine Est GFR ( Amer) Est GFR (Non-Af Amer) Glucose Calcium Total Bilirubin AST ALT Alkaline Phosphatase Total Protein Albumin Blood Type A POSITIVE Antibody Screen NEGATIVE 02/13/19 02/13/19 07:40 15:35 Troponin I < 0.012 0.022 NT-Pro-B Natriuret Pep [id number] H Impressions: Chest X-Ray 02/15/19 00:00 IMPRESSION: Partial clearing of the diffuse bilateral airspace disease as compared to 02/13/2019. Assessment & Plan - Diagnosis (1) Acute pulmonary edema Is this a current diagnosis for this admission?: Yes (2) Acute hypoxemic respiratory failure Is this a current diagnosis for this admission?: Yes (3) Acute diastolic heart failure Is this a current diagnosis for this admission?: Yes (4) End stage renal disease on dialysis Is this a current diagnosis for this admission?: Yes (5) Hyperkalemia Is this a current diagnosis for this admission?: Yes (6) Diabetes mellitus type 1 with complications Is this a current diagnosis for this admission?: Yes (7) Obesity, morbid, BMI 40.0-49.9 Is this a current diagnosis for this admission?: Yes (8) [place] Is this a current diagnosis for this admission?: Yes (9) Hypocalcemia Is this a current diagnosis for this admission?: Yes - Plan Summary Plan Summary: Patient is receiving blood transfusion and also calcium gluconate
[2019-02-16] MEDS: INSULIN GLARGINE,HUM.REC.ANLOG 1,000 UNIT/10 ML VIAL SUBCUT SCH (23:00)
[2019-02-17] MEDS ORDERED: HEPARIN SOD (PORCINE) 1,000 UNIT/ML 10 ML VIAL IV PRN ×2 (05:00→15:32)
[2019-02-17] MEDS ORDERED: EPOETIN ALFA INJ 40000 UNIT/1 ML (RENAL) IV PRN (05:00)
[2019-02-17] MEDS: CALCIUM CARBONATE 500 MG TAB.CHEW PO SCH ×4 (05:04→22:07)
[2019-02-17] MEDS: HEPARIN SOD (PORCINE) 5,000 UNIT/ML 1 ML SYRINGE SUBCUT SCH ×3 (05:06→21:58)
[2019-02-17] MEDS: PANTOPRAZOLE SODIUM 40 MG TABLET.DR PO SCH (05:06)
[2019-02-17] MEDS: PROMETHAZINE HCL 25 MG TABLET PO PRN ×2 (05:06→22:12)
[2019-02-17] MEDS: DICYCLOMINE HCL 20 MG TABLET PO PRN ×2 (05:06→10:41)
[2019-02-17 05:29] LABS: HEMATOCRIT 24.9 % (36.0-47.0); HEMOGLOBIN 8.4 g/dL (12.0-15.5); MEAN CORPUSCULAR HEMOGLOBIN 29.9 pg (27.0-33.4); MEAN CORPUSCULAR HGB CONC 33.7 g/dL (32.0-36.0); MEAN CORPUSCULAR VOLUME 89 fl (80-97); PLATELET COUNT 401 10^3/uL (150-450); RED BLOOD COUNT 2.81 10^6/uL (3.72-5.28); RED CELL DISTRIBUTION WIDTH 14.9 % (11.5-14.0); WHITE BLOOD COUNT 8.2 10^3/uL (4.0-10.5)
[2019-02-17 05:53] LABS: ANION GAP 18 (5-19); BLOOD UREA NITROGEN 46 mg/dL (7-20); CALCIUM 7.6 mg/dL (8.4-10.2); CARBON DIOXIDE 25 mmol/L (22-30); CHLORIDE 96 mmol/L (98-107); GLUCOSE 183 mg/dL (75-110); POTASSIUM 4.1 mmol/L (3.6-5.0); SODIUM 138.9 mmol/L (137-145)
[2019-02-17] MEDS: CALCIUM ACETATE 667 MG CAPSULE PO SCH ×3 (08:03→22:06)
[2019-02-17] MEDS: INSULIN REG, HUMAN 100 UNIT/ML 3 ML VIAL (PYX) SUBCUT SCH ×4 (08:05→22:08)
[2019-02-17] MEDS: OXYCODONE-ACETAMINOPHEN 5-325 MG TABLET PO PRN (08:24)
[2019-02-17] MEDS: BUPROPION HCL 100 MG TABLET PO SCH ×2 (10:39→22:09)
[2019-02-17] MEDS: DOCUSATE SODIUM 100 MG CAPSULE PO SCH ×2 (10:39→22:06)
[2019-02-17] MEDS: OXCARBAZEPINE 150 MG TABLET PO SCH ×2 (10:41→22:08)
[2019-02-17] MEDS: ALBUTEROL SULFATE HFA (90 MCG/PUFF) 200 PUFF/8.5 GM MDI IH PRN (10:46)
[2019-02-17] MEDS: NIFEDIPINE 30 MG TAB.ER.24 PO SCH ×2 (10:46→22:08)
[2019-02-17] MEDS: CALCITRIOL 0.25 MCG CAPSULE PO SCH (10:49)
[2019-02-17] MEDS: ONDANSETRON HCL 8 MG TABLET PO SCH ×2 (10:49→23:02)
[2019-02-17] MEDS: FLUTICASONE NASAL SPRAY 50 MCG/SPRY 120 SPRAY/16 GM NASL SCH (12:20)
[2019-02-17] MEDS: CETIRIZINE 5 MG TABLET PO SCH (12:21)
[2019-02-17] MEDS ORDERED: PROMETHAZINE HCL INJ 25 MG/1 ML VIAL IV ONE (16:30)
--- NOTE | 2019-02-17 17:44 | PDOC PROGRESS REPORT ---
Subjective Progress Note for:: 02/17/19 Subjective:: Seeing the patient during dialysis this afternoon. He tells me that she is still having nausea. Her tremors has improved. She still complains of her ringing in the ears him some abnormal vision. She received 1 unit of packed RBC yesterday. She tells me that she is still constipated despite the Colace, Dulcolax and MiraLAX. Reason For Visit: ACUTE CHRONIC SYSTOLIC CHF Physical Exam Vital Signs: Temp Pulse Resp BP Pulse Ox 98.1 F 94 18 174/77 H 96 02/17/19 11:30 02/17/19 11:30 02/17/19 11:30 02/17/19 11:30 02/17/19 11:30 Intake & Output 02/16/19 02/17/19 02/18/19 06:59 06:59 06:59 Intake Total 466 1601 946 Output Total 4900 1 Balance -4434 1600 946 Weight 122.3 kg 118.3 kg Vitals during dialysis: Blood pressure 99/67, heart rate of 88, blood flow rate of 450 mL/min, dialysate flow rate of 800 mL/min. Exam: General appearance: PRESENT: no acute distress, cooperative, well-developed, well-nourished Head exam: PRESENT: atraumatic, normocephalic Eye exam: PRESENT: conjunctiva pale, PERRLA. ABSENT: scleral icterus Neck exam: ABSENT: JVD Respiratory exam: PRESENT: Diminished breath sounds. ABSENT: crackles, rales, rhonchi, unlabored, wheezes Cardiovascular exam: PRESENT: Regular rate rhythm -+S1, +S2. ABSENT: diastolic murmur, systolic murmur GI/Abdominal exam: PRESENT: normal bowel sounds, soft. ABSENT: guarding, mass, tenderness Extremities exam: Trace bilateral lower extremity pitting edema Neurological exam: PRESENT: alert, awake, oriented to person, place and time. Skin exam: PRESENT: dry, warm, Results Laboratory Results: 02/17/19 05:00 02/17/19 05:00 02/17/19 02/17/19 05:00 05:00 WBC 8.2 RBC 2.81 L Hgb 8.4 L Hct 24.9 L MCV 89 MCH 29.9 MCHC 33.7 RDW 14.9 H Plt Count 401 Sodium 138.9 Potassium 4.1 Chloride 96 L Carbon Dioxide 25 Anion Gap 18 BUN 46 H Creatinine 9.27 H Est GFR ( Amer) 6 L Est GFR (Non-Af Amer) 5 L Glucose 183 H Calcium 7.6 L 02/13/19 02/13/19 07:40 15:35 Troponin I < 0.012 0.022 NT-Pro-B Natriuret Pep [id number] H Impressions: Chest X-Ray 02/15/19 00:00 IMPRESSION: Partial clearing of the diffuse bilateral airspace disease as compared to 02/13/2019. Assessment & Plan - Diagnosis (1) Acute hypoxemic respiratory failure Is this a current diagnosis for this admission?: Yes Plan: Resolved after ultrafiltration with dialysis . Currently maintained on oxygen by nasal cannula. (2) Acute diastolic (congestive) heart failure Is this a current diagnosis for this admission?: Yes Plan: Improved with ultrafiltration . (3) Acute pulmonary edema Is this a current diagnosis for this admission?: Yes Plan: Clinically improving. Repeat chest x-ray showed partial diffuse clearing of airspace densities. (4) ESRD (end stage renal disease) on dialysis Is this a current diagnosis for this admission?: Yes Plan: We will do dialysis today for 3.5 hours, using the patient's AV fistula, with 2 potassium bath, blood flow rate of 450 mL per minute, dialysate flow rate of 800 mL per minute, ultrafiltration 4-5 L as tolerated, heparin of 3000 units bolus followed by 500 units an hour and Procrit with 20,000 units units during dialysis intravenously. Patient is being monitored throughout dialysis treatment. (5) Anemia in chronic kidney disease (CKD) Is this a current diagnosis for this admission?: Yes Plan: Received 1 unit of packed RBC. Will give Procrit 40,000 units during dialysis today. We will continue to give Procrit as needed during dialysis. (6) Diabetes mellitus type 1 Qualifiers: Diabetes mellitus complication status: with unspecified complications Qualified Code(s): E10.8 - Type 1 diabetes mellitus with unspecified complications Is this a current diagnosis for this admission?: Yes (7) Hypocalcemia Is this a current diagnosis for this admission?: Yes Plan: Improved. I started the patient on Tums thousand milligrams 4 times daily. Patient was also given couple of doses of IV calcium gluconate for the last couple of days. (8) [place] Is this a current diagnosis for this admission?: Yes Plan: Improved. (9) Hyperkalemia Is this a current diagnosis for this admission?: Yes Plan: Resolved. (10) Hypertension Qualifiers: Hypertension type: essential hypertension Qualified Code(s): I10 - Essential (primary) hypertension Is this a current diagnosis for this admission?: Yes Plan: Controlled. (11) Hyperphosphatemia Is this a current diagnosis for this admission?: Yes Plan: Started on calcium acetate with meals. (12) Constipation Is this a current diagnosis for this admission?: Yes Plan: Start Colace 100 mg twice daily. We will start some lactulose today. (13) Tinnitus Qualifiers: Laterality: bilateral Qualified Code(s): H93.13 - Tinnitus, bilateral Is this a current diagnosis for this admission?: Yes Plan: Defer to Dr. Singleton. (14) Blurred vision, bilateral Is this a current diagnosis for this admission?: Yes Plan: Defer to Dr. Singleton. (15) Morbid obesity Is this a current diagnosis for this admission?: Yes - Time Time with patient: 15-25 minutes
--- NOTE | 2019-02-17 20:56 | EKG REPORT ---
SEVERITY:- ABNORMAL ECG - SINUS RHYTHM FIRST DEGREE AV BLOCK PROBABLE LEFT VENTRICULAR HYPERTROPHY PROLONGED QT INTERVAL : Confirmed by: Beatriz Leyva MD 17-Feb-2019 20:55:28
--- NOTE | 2019-02-17 21:54 | PDOC PROGRESS REPORT ---
Subjective Progress Note for:: 02/17/19 Subjective:: Patient complaining of constipation this is most likely opioid induced constipation Reason For Visit: ACUTE CHRONIC SYSTOLIC CHF Physical Exam Vital Signs: Temp Pulse Resp BP Pulse Ox 97.9 F 98 16 138/66 H 100 02/17/19 20:00 02/17/19 20:00 02/17/19 20:00 02/17/19 20:00 02/17/19 20:00 Intake & Output 02/16/19 02/17/19 02/18/19 06:59 06:59 06:59 Intake Total 466 1601 946 Output Total 4900 1 5200 Balance -4434 1600 -4254 Weight 122.3 kg 118.3 kg General appearance: PRESENT: no acute distress Eye exam: PRESENT: PERRLA Respiratory exam: PRESENT: clear to auscultation freddy Cardiovascular exam: PRESENT: +S1, +S2 GI/Abdominal exam: PRESENT: soft Neurological exam: PRESENT: alert Results Laboratory Results: 02/17/19 05:00 02/17/19 05:00 02/17/19 02/17/19 05:00 05:00 WBC 8.2 RBC 2.81 L Hgb 8.4 L Hct 24.9 L MCV 89 MCH 29.9 MCHC 33.7 RDW 14.9 H Plt Count 401 Sodium 138.9 Potassium 4.1 Chloride 96 L Carbon Dioxide 25 Anion Gap 18 BUN 46 H Creatinine 9.27 H Est GFR ( Amer) 6 L Est GFR (Non-Af Amer) 5 L Glucose 183 H Calcium 7.6 L 02/13/19 02/13/19 07:40 15:35 Troponin I < 0.012 0.022 NT-Pro-B Natriuret Pep 72782 H Impressions: Chest X-Ray 02/15/19 00:00 IMPRESSION: Partial clearing of the diffuse bilateral airspace disease as compared to 02/13/2019. Assessment & Plan - Diagnosis (1) Acute pulmonary edema Is this a current diagnosis for this admission?: Yes (2) Acute hypoxemic respiratory failure Is this a current diagnosis for this admission?: Yes (3) Acute diastolic heart failure Is this a current diagnosis for this admission?: Yes (4) End stage renal disease on dialysis Is this a current diagnosis for this admission?: Yes (5) Hyperkalemia Is this a current diagnosis for this admission?: Yes (6) Diabetes mellitus type 1 with complications Is this a current diagnosis for this admission?: Yes (7) Obesity, morbid, BMI 40.0-49.9 Is this a current diagnosis for this admission?: Yes (8) [place] Is this a current diagnosis for this admission?: Yes (9) Hypocalcemia Is this a current diagnosis for this admission?: Yes (10) Therapeutic opioid induced constipation Is this a current diagnosis for this admission?: Yes Plan: Movantik is preferred, it is nonformulary, enema will be used in place of it
[2019-02-17] MEDS: LACTULOSE SYRUP 20 GM/30 ML UDCUP PO SCH ×2 (22:05→23:02)
[2019-02-17] MEDS: POLYETHYLENE GLYCOL 3350 POWDER 17 GM/1 PACKET PO PRN (22:05)
[2019-02-17] MEDS: PAROXETINE HCL 20 MG TABLET PO SCH (22:06)
[2019-02-17] MEDS: INSULIN GLARGINE,HUM.REC.ANLOG 1,000 UNIT/10 ML VIAL SUBCUT SCH (22:08)
[2019-02-18] MEDS: CALCIUM CARBONATE 500 MG TAB.CHEW PO SCH ×4 (05:54→23:13)
[2019-02-18] MEDS: HEPARIN SOD (PORCINE) 5,000 UNIT/ML 1 ML SYRINGE SUBCUT SCH ×3 (05:54→23:13)
[2019-02-18] MEDS: PANTOPRAZOLE SODIUM 40 MG TABLET.DR PO SCH (05:54)
[2019-02-18] MEDS: LACTULOSE SYRUP 20 GM/30 ML UDCUP PO SCH ×3 (05:56→23:19)
[2019-02-18 06:05] LABS: ABSOLUTE BASOPHILS # (AUTO) 0.1 10^3/uL (0.0-0.2); ABSOLUTE EOSINOPHILS # (AUTO) 0.5 10^3/uL (0.0-0.6); ABSOLUTE MONOCYTES (AUTO) 0.5 10^3/uL (0.1-1.4); ABSOLUTE NEUT (AUTO) 3.6 10^3/uL (1.7-8.2); BASOPHILS % (AUTO) 1.2 % (0-2); EOSINOPHILS % (AUTO) 7.6 % (0-6); HEMATOCRIT 27.8 % (36.0-47.0); HEMOGLOBIN 9.2 g/dL (12.0-15.5); LYMPHOCYTES % (AUTO) 30.1 % (13-45); MEAN CORPUSCULAR HEMOGLOBIN 29.6 pg (27.0-33.4); MEAN CORPUSCULAR HGB CONC 32.9 g/dL (32.0-36.0); MEAN CORPUSCULAR VOLUME 90 fl (80-97); MONOCYTES % (AUTO) 7.8 % (3-13); PLATELET COUNT 394 10^3/uL (150-450); RED BLOOD COUNT 3.09 10^6/uL (3.72-5.28); SEGMENTED NEUTROPHILS % (AUTO) 53.3 % (42-78); TOTAL CELLS COUNTED % (AUTO) 100 %; WHITE BLOOD COUNT 6.7 10^3/uL (4.0-10.5)
[2019-02-18 06:18] LABS: ALANINE AMINOTRANSFERASE 8 U/L (9-52); ALBUMIN 4.1 g/dL (3.5-5.0); ALKALINE PHOSPHATASE 179 U/L (38-126); ANION GAP 16 (5-19); ASPARTATE AMINO TRANSFERASE 12 U/L (14-36); BILIRUBIN,DIRECT 0.5 mg/dL (0.0-0.4); BILIRUBIN,TOTAL 0.5 mg/dL (0.2-1.3); BLOOD UREA NITROGEN 29 mg/dL (7-20); CARBON DIOXIDE 28 mmol/L (22-30); CHLORIDE 94 mmol/L (98-107); GLUCOSE 242 mg/dL (75-110); POTASSIUM 4.4 mmol/L (3.6-5.0); SODIUM 137.8 mmol/L (137-145)
[2019-02-18] MEDS: INSULIN REG, HUMAN 100 UNIT/ML 3 ML VIAL (PYX) SUBCUT SCH ×4 (07:46→23:15)
[2019-02-18] MEDS: PROMETHAZINE HCL 25 MG TABLET PO PRN (07:46)
[2019-02-18] MEDS: CALCIUM ACETATE 667 MG CAPSULE PO SCH ×3 (07:48→17:31)
[2019-02-18] MEDS: BUPROPION HCL 100 MG TABLET PO SCH ×2 (09:25→23:06)
[2019-02-18] MEDS: CETIRIZINE 5 MG TABLET PO SCH (09:25)
[2019-02-18] MEDS: DOCUSATE SODIUM 100 MG CAPSULE PO SCH ×2 (09:26→17:32)
[2019-02-18] MEDS: FLUTICASONE NASAL SPRAY 50 MCG/SPRY 120 SPRAY/16 GM NASL SCH (09:26)
[2019-02-18] MEDS: OXCARBAZEPINE 150 MG TABLET PO SCH ×2 (09:26→23:11)
[2019-02-18] MEDS: ONDANSETRON HCL 8 MG TABLET PO SCH ×2 (09:27→23:13)
[2019-02-18] MEDS: NIFEDIPINE 30 MG TAB.ER.24 PO SCH ×2 (09:27→23:12)
[2019-02-18] MEDS: CALCITRIOL 0.25 MCG CAPSULE PO SCH (09:28)
--- NOTE | 2019-02-18 13:06 | PDOC PROGRESS REPORT ---
Subjective Progress Note for:: 02/18/19 Subjective:: Patient reported episodes of nausea and nursing staff attested to several episodes of vomiting this morning. She claimed that oral phernegan was ineffective for her. She is currently on oral Zofran for nausea and vomiting. No chest pain. Breathing is fair. No fever or chills. Reason For Visit: ACUTE CHRONIC SYSTOLIC CHF Physical Exam Vital Signs: Temp Pulse Resp BP Pulse Ox 98.0 F 86 17 133/75 H 98 02/18/19 07:18 02/18/19 07:18 02/18/19 07:18 02/18/19 07:18 02/18/19 07:18 Intake & Output 02/17/19 02/18/19 02/19/19 06:59 06:59 06:59 Intake Total 1601 1690 Output Total 1 5200 Balance 1600 -3510 Weight 118.3 kg 121 kg General appearance: PRESENT: no acute distress, morbidly obese Head exam: PRESENT: atraumatic, normocephalic Eye exam: PRESENT: conjunctiva pink, EOMI, PERRLA. ABSENT: scleral icterus Ear exam: PRESENT: normal external ear exam Mouth exam: PRESENT: moist Respiratory exam: PRESENT: clear to auscultation freddy Cardiovascular exam: PRESENT: RRR. ABSENT: diastolic murmur, rubs, systolic murmur Vascular exam: ABSENT: pallor GI/Abdominal exam: PRESENT: normal bowel sounds, soft. ABSENT: distended, guarding, mass, organolmegaly, rebound, tenderness Extremities exam: PRESENT: pedal edema Neurological exam: PRESENT: alert, awake, oriented to person, oriented to place, oriented to time, oriented to situation, CN II-XII grossly intact. ABSENT: motor sensory deficit Psychiatric exam: PRESENT: appropriate affect, normal mood. ABSENT: homicidal ideation, suicidal ideation Skin exam: PRESENT: dry, warm Results Laboratory Results: 02/18/19 05:00 02/18/19 05:00 02/18/19 02/18/19 05:00 05:00 WBC 6.7 RBC 3.09 L Hgb 9.2 L Hct 27.8 L MCV 90 MCH 29.6 MCHC 32.9 RDW 15.0 H Plt Count 394 Seg Neutrophils % 53.3 Lymphocytes % 30.1 Monocytes % 7.8 Eosinophils % 7.6 H Basophils % 1.2 Absolute Neutrophils 3.6 Absolute Lymphocytes 2.0 Absolute Monocytes 0.5 Absolute Eosinophils 0.5 Absolute Basophils 0.1 Sodium 137.8 Potassium 4.4 Chloride 94 L Carbon Dioxide 28 Anion Gap 16 BUN 29 H Creatinine 7.28 H Est GFR ( Amer) 8 L Est GFR (Non-Af Amer) 7 L Glucose 242 H Calcium 9.0 Total Bilirubin 0.5 AST 12 L ALT 8 L Alkaline Phosphatase 179 H Total Protein 8.0 Albumin 4.1 02/13/19 10:55 Blood Blood Culture - Final NO GROWTH IN 5 DAYS 02/13/19 09:48 Blood Blood Culture - Final NO GROWTH IN 5 DAYS 02/13/19 02/13/19 07:40 15:35 Troponin I < 0.012 0.022 NT-Pro-B Natriuret Pep [id number] H Impressions: Chest X-Ray 02/15/19 00:00 IMPRESSION: Partial clearing of the diffuse bilateral airspace disease as compared to 02/13/2019. Assessment & Plan - Diagnosis (1) End stage renal disease on dialysis Is this a current diagnosis for this admission?: Yes Plan: Continue current dialysis support and medication management. (2) [place] Is this a current diagnosis for this admission?: Yes Plan: Continue current medication management. (3) Diabetes mellitus type 1 with complications Is this a current diagnosis for this admission?: Yes Plan: Continue current medication management. (4) Nausea & vomiting Qualifiers: Vomiting type: unspecified Vomiting Intractability: unspecified Qualified Code(s): R11.2 - Nausea with vomiting, unspecified Is this a current diagnosis for this admission?: Yes Plan: D/C oral Phernegan. Start on IV Promethazine 12.5 mg q4 hours prn for nausea and vomiting. (5) Therapeutic opioid induced constipation Is this a current diagnosis for this admission?: Yes Plan: Continue current medication management. - Time Time Spent with patient: 25-34 minutes Medications reviewed and adjusted accordingly: Yes Anticipated discharge: Home Within: Other - Inpatient Certification Based on my medical assessment, after consideration of the patient's comorbidities, presenting symptoms, or acuity I expect that the services needed warrant INPATIENT care.: Yes I certify that my determination is in accordance with my understanding of Medicare's requirements for reasonable and necessary INPATIENT services [42 CFR 412.3e].: Yes Medical Necessity: Significant Comorbidiites Make Outpatient Treatment Too Risky, Need Close Monitoring Due to Risk of Patient Decompensation, Need For Continuous Telemetry Monitoring, Risk of Complication if Not Cared For in Hospital, Risk of Diagnosis Which Will Require Inpatient Eval/Care/Monitoring Post Hospital Care: D/C Tie Up Worker Documentation - Plan Summary Plan Summary: See covering attending physician orders as per about care plan.
[2019-02-18] MEDS: PAROXETINE HCL 20 MG TABLET PO SCH (17:32)
[2019-02-18] MEDS: DICYCLOMINE HCL 20 MG TABLET PO PRN (23:12)
[2019-02-18] MEDS: INSULIN GLARGINE,HUM.REC.ANLOG 1,000 UNIT/10 ML VIAL SUBCUT SCH (23:15)
[2019-02-19] MEDS: CALCIUM CARBONATE 500 MG TAB.CHEW PO SCH ×4 (03:00→21:47)
[2019-02-19] MEDS: PANTOPRAZOLE SODIUM 40 MG TABLET.DR PO SCH (05:10)
[2019-02-19] MEDS: HEPARIN SOD (PORCINE) 5,000 UNIT/ML 1 ML SYRINGE SUBCUT SCH ×3 (05:12→21:47)
[2019-02-19] MEDS: LACTULOSE SYRUP 20 GM/30 ML UDCUP PO SCH ×2 (05:17→12:59)
[2019-02-19] MEDS: CALCIUM ACETATE 667 MG CAPSULE PO SCH ×3 (08:03→16:59)
[2019-02-19] MEDS: INSULIN REG, HUMAN 100 UNIT/ML 3 ML VIAL (PYX) SUBCUT SCH ×4 (08:03→21:46)
[2019-02-19] MEDS: FLUTICASONE NASAL SPRAY 50 MCG/SPRY 120 SPRAY/16 GM NASL SCH (09:05)
[2019-02-19] MEDS: DOCUSATE SODIUM 100 MG CAPSULE PO SCH ×2 (09:05→17:00)
[2019-02-19] MEDS: CALCITRIOL 0.25 MCG CAPSULE PO SCH (09:06)
[2019-02-19] MEDS: CETIRIZINE 5 MG TABLET PO SCH (09:06)
[2019-02-19] MEDS: BUPROPION HCL 100 MG TABLET PO SCH ×2 (09:06→21:45)
[2019-02-19] MEDS: NIFEDIPINE 30 MG TAB.ER.24 PO SCH ×2 (09:06→21:43)
[2019-02-19] MEDS: ONDANSETRON HCL 8 MG TABLET PO SCH ×2 (09:07→21:13)
[2019-02-19] MEDS: OXCARBAZEPINE 150 MG TABLET PO SCH ×2 (09:07→21:45)
[2019-02-19] MEDS: OXYCODONE-ACETAMINOPHEN 5-325 MG TABLET PO PRN (12:51)
[2019-02-19] MEDS: PROMETHAZINE HCL INJ 25 MG/1 ML VIAL IV PRN (12:54)
--- NOTE | 2019-02-19 13:15 | PDOC PROGRESS REPORT ---
Subjective Progress Note for:: 02/19/19 Subjective:: Patient reported improvement in her nausea with IV phernegan administration. No chest pain or difficulty with breathing. No fever or chills. Reason For Visit: ACUTE CHRONIC SYSTOLIC CHF Physical Exam Vital Signs: Temp Pulse Resp BP Pulse Ox 97.5 F 91 18 153/65 H 99 02/19/19 07:51 02/19/19 07:51 02/19/19 07:51 02/19/19 07:51 02/19/19 07:51 Intake & Output 02/18/19 02/19/19 02/20/19 06:59 06:59 06:59 Intake Total 1690 1425 Output Total 5200 Balance -3510 1425 Weight 121 kg 127.8 kg Physical Exam: General appearance: PRESENT: no acute distress, morbidly obese Head exam: PRESENT: atraumatic, normocephalic Respiratory exam: PRESENT: clear to auscultation freddy Cardiovascular exam: PRESENT: RRR. ABSENT: diastolic murmur, rubs, systolic murmur Vascular exam: ABSENT: pallor GI/Abdominal exam: PRESENT: normal bowel sounds, soft. ABSENT: distended, guarding, mass, organomegaly, rebound, tenderness Extremities exam: PRESENT: pedal edema Neurological exam: PRESENT: alert, awake, oriented to person, oriented to place, oriented to time, oriented to situation, CN II-XII grossly intact. ABSENT: mot or sensory deficit Psychiatric exam: PRESENT: appropriate affect, normal mood. ABSENT: homicidal ideation, suicidal ideation Skin exam: PRESENT: dry, warm Results Laboratory Results: 02/18/19 05:00 02/18/19 05:00 02/19/19 01:17 Stool Occult Blood NEGATIVE 02/13/19 10:55 Blood Blood Culture - Final NO GROWTH IN 5 DAYS 02/13/19 09:48 Blood Blood Culture - Final NO GROWTH IN 5 DAYS 02/13/19 02/13/19 07:40 15:35 Troponin I < 0.012 0.022 NT-Pro-B Natriuret Pep [id number] H Impressions: Chest X-Ray 02/15/19 00:00 IMPRESSION: Partial clearing of the diffuse bilateral airspace disease as compared to 02/13/2019. Assessment & Plan - Diagnosis (1) End stage renal disease on dialysis Is this a current diagnosis for this admission?: Yes (2) [place] Is this a current diagnosis for this admission?: Yes (3) Diabetes mellitus type 1 with complications Is this a current diagnosis for this admission?: Yes (4) Nausea & vomiting Qualifiers: Vomiting type: unspecified Vomiting Intractability: unspecified Qualified Code(s): R11.2 - Nausea with vomiting, unspecified Is this a current diagnosis for this admission?: Yes (5) Therapeutic opioid induced constipation Is this a current diagnosis for this admission?: Yes - Time Time Spent with patient: 25-34 minutes Medications reviewed and adjusted accordingly: Yes Anticipated discharge: Home Within: Other - Inpatient Certification Based on my medical assessment, after consideration of the patient's comorbidities, presenting symptoms, or acuity I expect that the services needed warrant INPATIENT care.: Yes I certify that my determination is in accordance with my understanding of Medicare's requirements for reasonable and necessary INPATIENT services [42 CFR 412.3e].: Yes Medical Necessity: Significant Comorbidiites Make Outpatient Treatment Too Risky, Need Close Monitoring Due to Risk of Patient Decompensation, Risk of Complication if Not Cared For in Hospital, Risk of Diagnosis Which Will Require Inpatient Eval/Care/Monitoring Post Hospital Care: D/C [employer] Work[employer] Documentation - Plan Summary Plan Summary: Continue current medication management. She is schedule for hemodialysis tomorrow.
[2019-02-19] MEDS: PAROXETINE HCL 20 MG TABLET PO SCH (16:59)
[2019-02-19] MEDS: INSULIN GLARGINE,HUM.REC.ANLOG 1,000 UNIT/10 ML VIAL SUBCUT SCH (21:47)
[2019-02-20] MEDS: CALCIUM CARBONATE 500 MG TAB.CHEW PO SCH ×4 (02:11→21:51)
[2019-02-20] MEDS ORDERED: EPOETIN ALFA INJ 20000 UNIT/1 ML VIAL (RENAL) IV PRN (05:00)
[2019-02-20] MEDS ORDERED: NORMAL SALINE 1000 ML 1,000 ML IV PRN (05:00)
[2019-02-20] MEDS: HEPARIN SOD (PORCINE) 5,000 UNIT/ML 1 ML SYRINGE SUBCUT SCH ×3 (06:07→21:58)
[2019-02-20] MEDS: PANTOPRAZOLE SODIUM 40 MG TABLET.DR PO SCH (06:08)
[2019-02-20 06:23] LABS: ABSOLUTE BASOPHILS # (AUTO) 0.1 10^3/uL (0.0-0.2); ABSOLUTE EOSINOPHILS # (AUTO) 0.6 10^3/uL (0.0-0.6); ABSOLUTE LYMPHOCYTES (AUTO) 1.8 10^3/uL (0.5-4.7); ABSOLUTE MONOCYTES (AUTO) 0.7 10^3/uL (0.1-1.4); ABSOLUTE NEUT (AUTO) 6.2 10^3/uL (1.7-8.2); BASOPHILS % (AUTO) 0.6 % (0-2); EOSINOPHILS % (AUTO) 6.3 % (0-6); HEMATOCRIT 29.1 % (36.0-47.0); HEMOGLOBIN 9.7 g/dL (12.0-15.5); LYMPHOCYTES % (AUTO) 18.8 % (13-45); MEAN CORPUSCULAR HEMOGLOBIN 29.7 pg (27.0-33.4); MEAN CORPUSCULAR HGB CONC 33.2 g/dL (32.0-36.0); MEAN CORPUSCULAR VOLUME 89 fl (80-97); MONOCYTES % (AUTO) 7.6 % (3-13); PLATELET COUNT 437 10^3/uL (150-450); RED BLOOD COUNT 3.25 10^6/uL (3.72-5.28); RED CELL DISTRIBUTION WIDTH 15.3 % (11.5-14.0); SEGMENTED NEUTROPHILS % (AUTO) 66.7 % (42-78); TOTAL CELLS COUNTED % (AUTO) 100 %; WHITE BLOOD COUNT 9.3 10^3/uL (4.0-10.5)
[2019-02-20 06:43] LABS: ANION GAP 16 (5-19); BLOOD UREA NITROGEN 42 mg/dL (7-20); CALCIUM 9.1 mg/dL (8.4-10.2); CARBON DIOXIDE 26 mmol/L (22-30); CHLORIDE 95 mmol/L (98-107); GLUCOSE 274 mg/dL (75-110); POTASSIUM 4.1 mmol/L (3.6-5.0)
[2019-02-20] MEDS: INSULIN REG, HUMAN 100 UNIT/ML 3 ML VIAL (PYX) SUBCUT SCH ×4 (07:18→21:54)
[2019-02-20] MEDS: CALCIUM ACETATE 667 MG CAPSULE PO SCH ×3 (07:18→16:31)
[2019-02-20] MEDS ORDERED: HEPARIN SOD (PORCINE) 1,000 UNIT/ML 10 ML VIAL IV PRN ×2 (09:14→09:48)
[2019-02-20] MEDS ORDERED: IRON SUCROSE COMPLEX INJ/PF 100 MG/5 ML SDV IV PRN (09:14)
[2019-02-20] MEDS ORDERED: DIPHENHYDRAMINE HCL 50 MG/ML VIAL IV ONE (09:16)
[2019-02-20] MEDS ORDERED: DIPHENHYDRAMINE HCL 50 MG/ML VIAL ONE (09:20)
--- NOTE | 2019-02-20 09:32 | PDOC PROGRESS REPORT ---
Subjective Progress Note for:: 02/20/19 Subjective:: I am seeing the patient during dialysis treatment this morning. She is feeling better and looking better. The only complaint she has right now is itching because of the adhesive tape. She states that she has not had any more tremors. Her vision is better. Her eyes still has some ringing. She did not gain too much weight over the weekend so he seems to be doing good on fluid restriction. Her blood pressure is somewhat elevated now which is her usual baseline. Overall she is clinically better. Currently tolerating dialysis without any problems. Reason For Visit: ACUTE CHRONIC SYSTOLIC CHF Physical Exam Vital Signs: Temp Pulse Resp BP Pulse Ox 98.1 F 98 18 179/71 H 100 02/20/19 07:40 02/20/19 07:40 02/20/19 07:40 02/20/19 07:40 02/20/19 07:40 Intake & Output 02/19/19 02/20/19 02/21/19 06:59 06:59 06:59 Intake Total 1425 1656 Balance 1425 1656 Weight 127.8 kg Vitals during dialysis: Blood pressure 178/90, heart rate of 110, blood flow rate of 450 mL/min, and dialysate flow rate of 800 mL/min. Exam: General appearance: PRESENT: no acute distress, cooperative, well-developed, well-nourished Head exam: PRESENT: atraumatic, normocephalic Eye exam: PRESENT: conjunctiva slightly pale, PERRLA. ABSENT: scleral icterus Neck exam: ABSENT: JVD Respiratory exam: PRESENT: Diminished breath sounds. ABSENT: crackles, rales, rhonchi, unlabored, wheezes Cardiovascular exam: PRESENT: Regular rate rhythm -+S1, +S2. ABSENT: diastolic murmur, systolic murmur GI/Abdominal exam: PRESENT: normal bowel sounds, soft. ABSENT: guarding, mass, tenderness Extremities exam: ABSENT: No edema Neurological exam: PRESENT: alert, awake, oriented to person, place and time. Skin exam: PRESENT: dry, warm, Results Laboratory Results: 02/20/19 06:05 02/20/19 06:05 02/20/19 02/20/19 06:05 06:05 WBC 9.3 RBC 3.25 L Hgb 9.7 L Hct 29.1 L MCV 89 MCH 29.7 MCHC 33.2 RDW 15.3 H Plt Count 437 Seg Neutrophils % 66.7 Lymphocytes % 18.8 Monocytes % 7.6 Eosinophils % 6.3 H Basophils % 0.6 Absolute Neutrophils 6.2 Absolute Lymphocytes 1.8 Absolute Monocytes 0.7 Absolute Eosinophils 0.6 Absolute Basophils 0.1 Sodium 137.0 Potassium 4.1 Chloride 95 L Carbon Dioxide 26 Anion Gap 16 BUN 42 H Creatinine 11.49 H Est GFR ( Amer) 5 L Est GFR (Non-Af Amer) 4 L Glucose 274 H Calcium 9.1 02/13/19 02/13/19 07:40 15:35 Troponin I < 0.012 0.022 NT-Pro-B Natriuret Pep [id number] H Impressions: Chest X-Ray 02/15/19 00:00 IMPRESSION: Partial clearing of the diffuse bilateral airspace disease as compared to 02/13/2019. Assessment & Plan - Diagnosis (1) ESRD (end stage renal disease) on dialysis Is this a current diagnosis for this admission?: Yes Plan: We will do dialysis today for 3 hours, using the patient's AV fistula, with 2 potassium bath, blood flow rate of 450 mL per minute, dialysate flow rate of 800 mL per minute, ultrafiltration 3 L as tolerated, heparin of 3000 units IV bolus followed by 500 100 units/h and Procrit with 20,000 units during dialysis intravenously. Dialysis prescription discussed with her dialysis nurse. Patient will be monitored throughout dialysis treatment. Patient will be given Benadryl 25 mg IV for pruritus due to the adhesive tape. (2) Anemia in chronic kidney disease (CKD) Is this a current diagnosis for this admission?: Yes Plan: Received 1 unit of packed RBC. Will give Procrit 20,000 units during dialysis today. We will continue to give Procrit as needed during dialysis. We will also give Venofer 100 mg IV during dialysis today. (3) Acute hypoxemic respiratory failure Is this a current diagnosis for this admission?: Yes Plan: Resolved after ultrafiltration with dialysis . Currently maintained on oxygen by nasal cannula. (4) Acute diastolic (congestive) heart failure Is this a current diagnosis for this admission?: Yes Plan: Improved with ultrafiltration . (5) Acute pulmonary edema Is this a current diagnosis for this admission?: Yes Plan: Clinically improving. Repeat chest x-ray showed partial diffuse clearing of airspace densities. (6) Diabetes mellitus type 1 Qualifiers: Diabetes mellitus complication status: with unspecified complications Qualified Code(s): E10.8 - Type 1 diabetes mellitus with unspecified complications Is this a current diagnosis for this admission?: Yes (7) Hypocalcemia Is this a current diagnosis for this admission?: Yes Plan: Improved and resolved currently within normal limits. Continue Tums. (8) [place] Is this a current diagnosis for this admission?: Yes Plan: Resolved with improvement of calcium levels. (9) Hyperkalemia Is this a current diagnosis for this admission?: Yes Plan: Resolved through dialysis. (10) Hypertension Qualifiers: Hypertension type: essential hypertension Qualified Code(s): I10 - Es sential (primary) hypertension Is this a current diagnosis for this admission?: Yes Plan: Currently somewhat elevated which is her baseline. Needs to resume her blood pressure medications. (11) Hyperphosphatemia Is this a current diagnosis for this admission?: Yes Plan: Started on calcium acetate with meals. (12) Constipation Is this a current diagnosis for this admission?: Yes Plan: Opioid induced. Improved with enema. (13) Tinnitus Qualifiers: Laterality: bilateral Qualified Code(s): H93.13 - Tinnitus, bilateral Is this a current diagnosis for this admission?: Yes Plan: Defer to Dr. Singleton. (14) Blurred vision, bilateral Is this a current diagnosis for this admission?: Yes Plan: Improved. Defer to Dr. Singleton. (15) Morbid obesity Is this a current diagnosis for this admission?: Yes - Notes Notes: From nephrology standpoint I think patient can be discharged home anytime soon after dialysis today. - Time Time with patient: 15-25 minutes
[2019-02-20] MEDS ORDERED: HEPARIN SOD (PORCINE) 1,000 UNIT/ML 10 ML VIAL ONE (09:39)
[2019-02-20] MEDS: DOCUSATE SODIUM 100 MG CAPSULE PO SCH ×2 (11:26→17:04)
[2019-02-20] MEDS: PROMETHAZINE HCL INJ 25 MG/1 ML VIAL IV PRN ×3 (12:35→23:59)
[2019-02-20] MEDS: ONDANSETRON HCL 8 MG TABLET PO SCH ×2 (12:38→21:52)
[2019-02-20] MEDS: FLUTICASONE NASAL SPRAY 50 MCG/SPRY 120 SPRAY/16 GM NASL SCH (12:38)
[2019-02-20] MEDS: BUPROPION HCL 100 MG TABLET PO SCH ×2 (12:44→21:52)
[2019-02-20] MEDS: NIFEDIPINE 30 MG TAB.ER.24 PO SCH ×2 (12:44→21:51)
[2019-02-20] MEDS: OXCARBAZEPINE 150 MG TABLET PO SCH ×2 (12:44→21:52)
[2019-02-20] MEDS: CETIRIZINE 5 MG TABLET PO SCH (12:44)
[2019-02-20] MEDS: CALCITRIOL 0.25 MCG CAPSULE PO SCH (12:44)
[2019-02-20] MEDS: OXYCODONE-ACETAMINOPHEN 5-325 MG TABLET PO PRN ×2 (16:27→23:59)
[2019-02-20] MEDS: PAROXETINE HCL 20 MG TABLET PO SCH (16:33)
[2019-02-20] MEDS ORDERED: LEVALBUTEROL HCL NEB 1.25 MG/3 ML AMPUL NEB PRN (19:41)
--- NOTE | 2019-02-20 19:44 | PDOC PROGRESS REPORT ---
Subjective Progress Note for:: 02/20/19 Subjective:: Patient seen by the bedside she complained of shortness of breath on auscultation of the chest the lung is clear, a full PFT is ordered,she also complain of nausea Reason For Visit: ACUTE CHRONIC SYSTOLIC CHF Physical Exam Vital Signs: Temp Pulse Resp BP Pulse Ox 98.1 F 96 18 170/91 H 98 02/20/19 15:58 02/20/19 15:58 02/20/19 15:58 02/20/19 15:58 02/20/19 16:44 Intake & Output 02/19/19 02/20/19 02/21/19 06:59 06:59 06:59 Intake Total 1425 1656 503 Balance 1425 1656 503 Weight 127.8 kg General appearance: PRESENT: no acute distress, well-developed, well-nourished Head exam: PRESENT: atraumatic, normocephalic Eye exam: PRESENT: conjunctiva pink, EOMI, PERRLA. ABSENT: scleral icterus Ear exam: PRESENT: normal external ear exam Mouth exam: PRESENT: moist, tongue midline Neck exam: PRESENT: full ROM. ABSENT: carotid bruit, JVD, lymphadenopathy, thyromegaly Cardiovascular exam: PRESENT: RRR. ABSENT: diastolic murmur, rubs, systolic murmur Pulses: PRESENT: normal dorsalis pedis pul, +2 pedal pulses bilateral Vascular exam: PRESENT: normal capillary refill GI/Abdominal exam: PRESENT: normal bowel sounds, soft. ABSENT: distended, guarding, mass, organolmegaly, rebound, tenderness Rectal exam: PRESENT: deferred Neurological exam: PRESENT: alert, awake, oriented to person, oriented to place, oriented to time, oriented to situation, CN II-XII grossly intact. ABSENT: motor sensory deficit Psychiatric exam: PRESENT: appropriate affect, normal mood. ABSENT: homicidal ideation, suicidal ideation Skin exam: PRESENT: dry, intact, warm. ABSENT: cyanosis, rash Results Laboratory Results: 02/20/19 06:05 02/20/19 06:05 02/20/19 02/20/19 06:05 06:05 WBC 9.3 RBC 3.25 L Hgb 9.7 L Hct 29.1 L MCV 89 MCH 29.7 MCHC 33.2 RDW 15.3 H Plt Count 437 Seg Neutrophils % 66.7 Lymphocytes % 18.8 Monocytes % 7.6 Eosinophils % 6.3 H Basophils % 0.6 Absolute Neutrophils 6.2 Absolute Lymphocytes 1.8 Absolute Monocytes 0.7 Absolute Eosinophils 0.6 Absolute Basophils 0.1 Sodium 137.0 Potassium 4.1 Chloride 95 L Carbon Dioxide 26 Anion Gap 16 BUN 42 H Creatinine 11.49 H Est GFR ( Amer) 5 L Est GFR (Non-Af Amer) 4 L Glucose 274 H Calcium 9.1 02/13/19 02/13/19 07:40 15:35 Troponin I < 0.012 0.022 NT-Pro-B Natriuret Pep [id number] H Impressions: Chest X-Ray 02/15/19 00:00 IMPRESSION: Partial clearing of the diffuse bilateral airspace disease as compared to 02/13/2019. Assessment & Plan - Diagnosis (1) Acute pulmonary edema Is this a current diagnosis for this admission?: Yes (2) Acute hypoxemic respiratory failure Is this a current diagnosis for this admission?: Yes (3) Acute diastolic heart failure Is this a current diagnosis for this admission?: Yes (4) End stage renal disease on dialysis Is this a current diagnosis for this admission?: Yes (5) Hyperkalemia Is this a current diagnosis for this admission?: Yes (6) Diabetes mellitus type 1 with complications Is this a current diagnosis for this admission?: Yes (7) Obesity, morbid, BMI 40.0-49.9 Is this a current diagnosis for this admission?: Yes (8) [place] Is this a current diagnosis for this admission?: Yes (9) Hypocalcemia Is this a current diagnosis for this admission?: Yes (10) Therapeutic opioid induced constipation Is this a current diagnosis for this admission?: Yes
[2019-02-20] MEDS: INSULIN GLARGINE,HUM.REC.ANLOG 1,000 UNIT/10 ML VIAL SUBCUT SCH (21:54)
[2019-02-21] MEDS: CALCIUM CARBONATE 500 MG TAB.CHEW PO SCH ×4 (03:50→22:04)
[2019-02-21] MEDS: PANTOPRAZOLE SODIUM 40 MG TABLET.DR PO SCH (05:35)
[2019-02-21] MEDS: HEPARIN SOD (PORCINE) 5,000 UNIT/ML 1 ML SYRINGE SUBCUT SCH ×3 (05:36→22:00)
[2019-02-21] MEDS: OXYCODONE-ACETAMINOPHEN 5-325 MG TABLET PO PRN ×2 (06:43→18:05)
[2019-02-21] MEDS: OXYCODONE HCL IR 5 MG TABLET PO PRN ×2 (06:44→18:05)
[2019-02-21] MEDS: INSULIN REG, HUMAN 100 UNIT/ML 3 ML VIAL (PYX) SUBCUT SCH ×4 (07:32→23:37)
[2019-02-21] MEDS: CALCIUM ACETATE 667 MG CAPSULE PO SCH ×3 (07:42→18:06)
[2019-02-21] MEDS: BUPROPION HCL 100 MG TABLET PO SCH ×2 (09:17→22:03)
[2019-02-21] MEDS: DOCUSATE SODIUM 100 MG CAPSULE PO SCH ×2 (09:17→17:56)
[2019-02-21] MEDS: OXCARBAZEPINE 150 MG TABLET PO SCH ×2 (09:18→22:04)
[2019-02-21] MEDS: ONDANSETRON HCL 8 MG TABLET PO SCH ×2 (09:19→21:43)
[2019-02-21] MEDS: CETIRIZINE 5 MG TABLET PO SCH (09:19)
[2019-02-21] MEDS: NIFEDIPINE 30 MG TAB.ER.24 PO SCH ×2 (09:19→22:05)
[2019-02-21] MEDS: CALCITRIOL 0.25 MCG CAPSULE PO SCH (09:19)
[2019-02-21] MEDS: FLUTICASONE NASAL SPRAY 50 MCG/SPRY 120 SPRAY/16 GM NASL SCH ×2 (09:20→09:22)
[2019-02-21] MEDS: PROMETHAZINE HCL INJ 25 MG/1 ML VIAL IV PRN ×3 (12:57→23:33)
[2019-02-21] MEDS: PAROXETINE HCL 20 MG TABLET PO SCH (18:07)
--- NOTE | 2019-02-21 19:25 | PDOC PROGRESS REPORT ---
Subjective Progress Note for:: 02/21/19 Subjective:: Patient is alert ,she had PFT done last month ,it was consistent with obstructive pattern Reason For Visit: ACUTE CHRONIC SYSTOLIC CHF Physical Exam Vital Signs: Temp Pulse Resp BP Pulse Ox 99.0 F 104 H 20 185/81 H 100 02/21/19 15:44 02/21/19 15:44 02/21/19 15:44 02/21/19 15:44 02/21/19 15:44 Intake & Output 02/20/19 02/21/19 02/22/19 06:59 06:59 06:59 Intake Total 1656 833 500 Balance 1656 833 500 Weight 127.8 kg General appearance: PRESENT: no acute distress Eye exam: PRESENT: PERRLA Respiratory exam: PRESENT: clear to auscultation freddy Cardiovascular exam: PRESENT: +S1, +S2 GI/Abdominal exam: PRESENT: soft Neurological exam: PRESENT: alert Results Laboratory Results: 02/20/19 06:05 02/20/19 06:05 02/13/19 02/13/19 07:40 15:35 Troponin I < 0.012 0.022 NT-Pro-B Natriuret Pep [id number] H Impressions: Chest X-Ray 02/15/19 00:00 IMPRESSION: Partial clearing of the diffuse bilateral airspace disease as compared to 02/13/2019. Assessment & Plan - Diagnosis (1) Acute pulmonary edema Is this a current diagnosis for this admission?: Yes (2) Acute hypoxemic respiratory failure Is this a current diagnosis for this admission?: Yes (3) Acute diastolic heart failure Is this a current diagnosis for this admission?: Yes (4) End stage renal disease on dialysis Is this a current diagnosis for this admission?: Yes (5) Hyperkalemia Is this a current diagnosis for this admission?: Yes (6) Diabetes mellitus type 1 with complications Is this a current diagnosis for this admission?: Yes (7) Obesity, morbid, BMI 40.0-49.9 Is this a current diagnosis for this admission?: Yes (8) [place] Is this a current diagnosis for this admission?: Yes (9) Hypocalcemia Is this a current diagnosis for this admission?: Yes (10) Therapeutic opioid induced constipation Is this a current diagnosis for this admission?: Yes
[2019-02-21] MEDS ORDERED: ACETAMINOPHEN 325 MG TABLET ONE (21:59)
[2019-02-21] MEDS: INSULIN GLARGINE,HUM.REC.ANLOG 1,000 UNIT/10 ML VIAL SUBCUT SCH (22:00)
[2019-02-21] MEDS ORDERED: ACETAMINOPHEN 325 MG TABLET PO ONE (22:30)
[2019-02-22] MEDS: CALCIUM CARBONATE 500 MG TAB.CHEW PO SCH ×4 (02:19→21:24)
[2019-02-22] MEDS: OXYCODONE-ACETAMINOPHEN 5-325 MG TABLET PO PRN ×2 (02:19→14:16)
[2019-02-22] MEDS: OXYCODONE HCL IR 5 MG TABLET PO PRN ×2 (02:20→14:17)
[2019-02-22] MEDS: PROMETHAZINE HCL INJ 25 MG/1 ML VIAL IV PRN (04:16)
[2019-02-22] MEDS ORDERED: EPOETIN ALFA INJ 20000 UNIT/1 ML VIAL (RENAL) IV PRN (05:00)
[2019-02-22] MEDS ORDERED: HEPARIN SOD (PORCINE) 1,000 UNIT/ML 10 ML VIAL IV PRN (05:00)
[2019-02-22] MEDS ORDERED: IRON SUCROSE COMPLEX INJ/PF 100 MG/5 ML SDV IV PRN (05:00)
[2019-02-22] MEDS: PANTOPRAZOLE SODIUM 40 MG TABLET.DR PO SCH (05:08)
[2019-02-22 05:22] LABS: HEMATOCRIT 29.8 % (36.0-47.0); HEMOGLOBIN 9.7 g/dL (12.0-15.5); MEAN CORPUSCULAR HEMOGLOBIN 29.2 pg (27.0-33.4); MEAN CORPUSCULAR HGB CONC 32.7 g/dL (32.0-36.0); MEAN CORPUSCULAR VOLUME 90 fl (80-97); PLATELET COUNT 400 10^3/uL (150-450); RED BLOOD COUNT 3.33 10^6/uL (3.72-5.28); RED CELL DISTRIBUTION WIDTH 15.7 % (11.5-14.0); WHITE BLOOD COUNT 12.9 10^3/uL (4.0-10.5)
[2019-02-22 05:48] LABS: ANION GAP 16 (5-19); BLOOD UREA NITROGEN 38 mg/dL (7-20); CALCIUM 9.2 mg/dL (8.4-10.2); CARBON DIOXIDE 24 mmol/L (22-30); CHLORIDE 92 mmol/L (98-107); GLUCOSE 256 mg/dL (75-110); POTASSIUM 5.2 mmol/L (3.6-5.0); SODIUM 131.9 mmol/L (137-145)
[2019-02-22] MEDS: HEPARIN SOD (PORCINE) 5,000 UNIT/ML 1 ML SYRINGE SUBCUT SCH ×3 (06:15→21:28)
[2019-02-22] MEDS: INSULIN REG, HUMAN 100 UNIT/ML 3 ML VIAL (PYX) SUBCUT SCH ×4 (07:37→21:26)
[2019-02-22] MEDS: CALCIUM ACETATE 667 MG CAPSULE PO SCH ×3 (07:38→16:37)
[2019-02-22] MEDS: ONDANSETRON HCL 8 MG TABLET PO SCH ×2 (10:00→21:25)
[2019-02-22] MEDS: CETIRIZINE 5 MG TABLET PO SCH (10:00)
[2019-02-22] MEDS: NIFEDIPINE 30 MG TAB.ER.24 PO SCH ×2 (10:00→21:26)
[2019-02-22] MEDS: OXCARBAZEPINE 150 MG TABLET PO SCH ×2 (10:00→21:25)
[2019-02-22] MEDS: CALCITRIOL 0.25 MCG CAPSULE PO SCH (10:00)
[2019-02-22] MEDS: FLUTICASONE NASAL SPRAY 50 MCG/SPRY 120 SPRAY/16 GM NASL SCH (12:17)
[2019-02-22] MEDS: DOCUSATE SODIUM 100 MG CAPSULE PO SCH ×2 (12:17→17:14)
[2019-02-22] MEDS: BUPROPION HCL 100 MG TABLET PO SCH ×2 (13:40→21:25)
[2019-02-22] MEDS: PAROXETINE HCL 20 MG TABLET PO SCH (17:14)
--- NOTE | 2019-02-22 17:51 | RADIOLOGY REPORT (SQ) ---
EXAM DESCRIPTION: CHEST SINGLE VIEW COMPLETED DATE/TIME: 02/22/2019 5:24 pm REASON FOR STUDY: fluid overload v pneumonia v atelectasis. COMPARISON: 02/15/2019. EXAM PARAMETERS: NUMBER OF VIEWS: One view. TECHNIQUE: Single frontal radiographic view of the chest acquired. RADIATION DOSE: NA LIMITATIONS: None. FINDINGS: LUNGS AND PLEURA: Improved aeration. Previously seen airspace opacities have resolved. N o focal infiltrate, masses or pneumothorax. No pleural effusion. MEDIASTINUM AND HILAR STRUCTURES: No masses. Contour normal. HEART AND VASCULAR STRUCTURES: Heart normal in size. Normal vasculature. BONES: No acute findings. HARDWARE: Vascular stents in the right and left upper extremities appear OTHER: No other significant finding. IMPRESSION: IMPROVED AERATION WITH CLEARING OF THE PREVIOUSLY SEEN AIRSPACE OPACITIES. NO ACUTE RAD IOGRAPHIC FINDING IN THE CHEST. TECHNICAL DOCUMENTATION: JOB ID: [id number] [employer]- All Rights Reserved Reading location - IP/workstation name: [email or web address]
--- NOTE | 2019-02-22 18:36 | PDOC PROGRESS REPORT ---
Subjective Progress Note for:: 02/22/19 Subjective:: Patient seen today ,she had dialysis ,she was supposed to be discharged home today but she had a temperature with fever 101,source is not clear Reason For Visit: ACUTE CHRONIC SYSTOLIC CHF Physical Exam Vital Signs: Temp Pulse Resp BP Pulse Ox 98.9 F 94 18 146/65 H 95 02/22/19 15:58 02/22/19 15:58 02/22/19 15:58 02/22/19 15:58 02/22/19 15:58 Intake & Output 02/21/19 02/22/19 02/23/19 06:59 06:59 06:59 Intake Total 833 500 Output Total 2400 Balance 833 500 -2400 Weight 127.8 kg 120.7 kg General appearance: PRESENT: no acute distress, well-developed, well-nourished Head exam: PRESENT: atraumatic, normocephalic Eye exam: PRESENT: PERRLA Ear exam: PRESENT: normal external ear exam Mouth exam: PRESENT: moist, tongue midline Neck exam: PRESENT: full ROM Respiratory exam: PRESENT: clear to auscultation freddy Cardiovascular exam: PRESENT: RRR, +S1, +S2 Vascular exam: PRESENT: normal capillary refill GI/Abdominal exam: PRESENT: normal bowel sounds, soft Rectal exam: PRESENT: deferred Neurological exam: PRESENT: alert, CN II-XII grossly intact Psychiatric exam: PRESENT: appropriate affect, normal mood Skin exam: PRESENT: dry, intact, warm Results Laboratory Results: 02/22/19 05:00 02/22/19 05:00 02/22/19 02/22/19 05:00 05:00 WBC 12.9 H RBC 3.33 L Hgb 9.7 L Hct 29.8 L MCV 90 MCH 29.2 MCHC 32.7 RDW 15.7 H Plt Count 400 Sodium 131.9 L Potassium 5.2 H Chloride 92 L Carbon Dioxide 24 Anion Gap 16 BUN 38 H Creatinine 10.98 H Est GFR ( Amer) 5 L Est GFR (Non-Af Amer) 4 L Glucose 256 H Calcium 9.2 02/13/19 02/13/19 07:40 15:35 Troponin I < 0.012 0.022 NT-Pro-B Natriuret Pep [id number] H Impressions: Chest X-Ray 02/22/19 16:36 IMPRESSION: IMPROVED AERATION WITH CLEARING OF THE PREVIOUSLY SEEN AIRSPACE OPACITIES. NO ACUTE RADIOGRAPHIC FINDING IN THE CHEST. Assessment & Plan - Diagnosis (1) Acute pulmonary edema Is this a current diagnosis for this admission?: Yes (2) Acute hypoxemic respiratory failure Is this a current diagnosis for this admission?: Yes (3) Acute diastolic heart failure Is this a current diagnosis for this admission?: Yes (4) End stage renal disease on dialysis Is this a current diagnosis for this admission?: Yes (5) Hyperkalemia Is this a current diagnosis for this admission?: Yes (6) Diabetes mellitus type 1 with complications Is this a current diagnosis for this admission?: Yes (7) Obesity, morbid, BMI 40.0-49.9 Is this a current diagnosis for this admission?: Yes (8) [place] Is this a current diagnosis for this admission?: Yes (9) Hypocalcemia Is this a current diagnosis for this admission?: Yes (10) Therapeutic opioid induced constipation Is this a current diagnosis for this admission?: Yes (11) Fever Qualifiers: Fever type: unspecified Qualified Code(s): R50.9 - Fever, unspecified Is this a current diagnosis for this admission?: Yes Plan: cause is not clear
--- NOTE | 2019-02-22 21:03 | PDOC PROGRESS REPORT ---
Subjective Progress Note for:: 02/22/19 Subjective:: Patient was seen under going dialysis, her only compliant was fevers and chills. Patient at the time denies chest pain, SOB, or palpitations. She also denies cough, sputum production, dysuria, diarrhea, or ear pain. Reason For Visit: ACUTE CHRONIC SYSTOLIC CHF Physical Exam Vital Signs: Temp Pulse Resp BP Pulse Ox 98.9 F 91 18 146/65 H 95 02/22/19 15:58 02/22/19 19:00 02/22/19 15:58 02/22/19 15:58 02/22/19 15:58 Intake & Output 02/21/19 02/22/19 02/23/19 06:59 06:59 06:59 Intake Total 833 500 700 Output Total 2400 Balance 833 500 -1700 Weight 127.8 kg 120.7 kg General appearance: PRESENT: mild distress, obese, well-developed Eye exam: PRESENT: PERRLA Mouth exam: PRESENT: moist, neck supple Neck exam: ABSENT: JVD, meningismus, tenderness, tracheal deviation Respiratory exam: PRESENT: crackles. ABSENT: accessory muscle use, clear to auscultation freddy, rhonchi, wheezes Cardiovascular exam: PRESENT: RRR, +S1, +S2. ABSENT: systolic murmur GI/Abdominal exam: PRESENT: soft. ABSENT: ascites, firm, guarding, hyperactive bowel sounds, hypoactive bowel sounds Extremities exam: ABSENT: tenderness, +1 edema, +2 edema Musculoskeletal exam: PRESENT: normal inspection. ABSENT: tenderness Neurological exam: PRESENT: alert, awake, oriented to person, oriented to place, oriented to time, oriented to situation Skin exam: PRESENT: dry, intact, warm Results Laboratory Results: 02/22/19 05:00 02/22/19 05:00 02/22/19 02/22/19 05:00 05:00 WBC 12.9 H RBC 3.33 L Hgb 9.7 L Hct 29.8 L MCV 90 MCH 29.2 MCHC 32.7 RDW 15.7 H Plt Count 400 Sodium 131.9 L Potassium 5.2 H Chloride 92 L Carbon Dioxide 24 Anion Gap 16 BUN 38 H Creatinine 10.98 H Est GFR ( Amer) 5 L Est GFR (Non-Af Amer) 4 L Glucose 256 H Calcium 9.2 02/13/19 02/13/19 07:40 15:35 Troponin I < 0.012 0.022 NT-Pro-B Natriuret Pep [id number] H Impressions: Chest X-Ray 02/22/19 16:36 IMPRESSION: IMPROVED AERATION WITH CLEARING OF THE PREVIOUSLY SEEN AIRSPACE OPACITIES. NO ACUTE RADIOGRAPHIC FINDING IN THE CHEST. Assessment & Plan - Diagnosis (1) End stage renal disease on dialysis Is this a current diagnosis for this admission?: Yes Plan: Patient was seen under going dialysis, she had a fever prior to dialysis. Blood cultures were drawn x2 with dialysis. Patient at the time denies chest pain, SOB, or palpitations. Orders and labs were discussed with treating nurse. (2) Acute diastolic heart failure Is this a current diagnosis for this admission?: Yes Plan: Removing more fluid with dialysis, looks to be improving (3) Acute hypoxemic respiratory failure Is this a current diagnosis for this admission?: Yes Plan: improving as more fluid as removed (4) Fever Qualifiers: Fever type: unspecified Qualified Code(s): R50.9 - Fever, unspecified Is this a current diagnosis for this admission?: Yes Plan: no clear source of fever or elevated white count. Awaiting blood cultures and getting a cbc with differential. (5) Hyperkalemia Plan: discussed proper low potassium diet. (6) Anemia in chronic kidney disease (CKD) Is this a current diagnosis for this admission?: Yes Plan: procrit with dialysis
[2019-02-22] MEDS: INSULIN GLARGINE,HUM.REC.ANLOG 1,000 UNIT/10 ML VIAL SUBCUT SCH (21:27)
[2019-02-23] MEDS: OXYCODONE-ACETAMINOPHEN 5-325 MG TABLET PO PRN (03:47)
[2019-02-23] MEDS: OXYCODONE HCL IR 5 MG TABLET PO PRN (03:47)
[2019-02-23] MEDS: CALCIUM CARBONATE 500 MG TAB.CHEW PO SCH ×3 (03:48→15:52)
[2019-02-23] MEDS: PANTOPRAZOLE SODIUM 40 MG TABLET.DR PO SCH (05:37)
[2019-02-23] MEDS: HEPARIN SOD (PORCINE) 5,000 UNIT/ML 1 ML SYRINGE SUBCUT SCH ×2 (05:51→13:16)
[2019-02-23 06:17] LABS: ABSOLUTE BASOPHILS # (AUTO) 0.1 10^3/uL (0.0-0.2); ABSOLUTE EOSINOPHILS # (AUTO) 0.2 10^3/uL (0.0-0.6); ABSOLUTE LYMPHOCYTES (AUTO) 1.7 10^3/uL (0.5-4.7); BASOPHILS % (AUTO) 0.6 % (0-2); EOSINOPHILS % (AUTO) 1.5 % (0-6); HEMATOCRIT 26.5 % (36.0-47.0); HEMOGLOBIN 8.8 g/dL (12.0-15.5); LYMPHOCYTES % (AUTO) 17.4 % (13-45); MEAN CORPUSCULAR HEMOGLOBIN 29.5 pg (27.0-33.4); MEAN CORPUSCULAR HGB CONC 33.1 g/dL (32.0-36.0); MEAN CORPUSCULAR VOLUME 89 fl (80-97); MONOCYTES % (AUTO) 10.2 % (3-13); PLATELET COUNT 300 10^3/uL (150-450); RED BLOOD COUNT 2.98 10^6/uL (3.72-5.28); RED CELL DISTRIBUTION WIDTH 15.6 % (11.5-14.0); SEGMENTED NEUTROPHILS % (AUTO) 70.3 % (42-78); TOTAL CELLS COUNTED % (AUTO) 100 %; WHITE BLOOD COUNT 9.9 10^3/uL (4.0-10.5)
[2019-02-23] MEDS: INSULIN REG, HUMAN 100 UNIT/ML 3 ML VIAL (PYX) SUBCUT SCH ×3 (08:13→15:51)
[2019-02-23] MEDS: BUPROPION HCL 100 MG TABLET PO SCH (09:33)
[2019-02-23] MEDS: CALCITRIOL 0.25 MCG CAPSULE PO SCH (09:33)
[2019-02-23] MEDS: CALCIUM ACETATE 667 MG CAPSULE PO SCH ×3 (09:33→16:00)
[2019-02-23] MEDS: CETIRIZINE 5 MG TABLET PO SCH (09:34)
[2019-02-23] MEDS: NIFEDIPINE 30 MG TAB.ER.24 PO SCH (09:34)
[2019-02-23] MEDS: OXCARBAZEPINE 150 MG TABLET PO SCH (09:34)
[2019-02-23] MEDS: FLUTICASONE NASAL SPRAY 50 MCG/SPRY 120 SPRAY/16 GM NASL SCH ×2 (09:34→09:38)
[2019-02-23] MEDS: DOCUSATE SODIUM 100 MG CAPSULE PO SCH ×2 (09:34→17:03)
[2019-02-23] MEDS: ONDANSETRON HCL 8 MG TABLET PO SCH (09:34)
[2019-02-23] MEDS: DICYCLOMINE HCL 20 MG TABLET PO PRN (11:57)
[2019-02-23] MEDS: PROMETHAZINE HCL INJ 25 MG/1 ML VIAL IV PRN ×2 (11:58→17:42)
[2019-02-23] MEDS: PAROXETINE HCL 20 MG TABLET PO SCH (17:03)
[2019-02-23 19:38] VITALS: BP 171/75
--- NOTE | 2019-02-23 20:38 | PDOC DISCHARGE SUMMARY ---
General - Admit/Disc Date/PCP Admission Date/Primary Care Provider: 02/13/19 08:51 HILARY HERNANDEZ MD Discharge Date: 02/23/19 - Discharge Diagnosis (1) Acute pulmonary edema Is this a current diagnosis for this admission?: Yes (2) Acute hypoxemic respiratory failure Is this a current diagnosis for this admission?: Yes (3) Acute diastolic heart failure Is this a current diagnosis for this admission?: Yes (4) End stage renal disease on dialysis Is this a current diagnosis for this admission?: Yes (5) Hyperkalemia Is this a current diagnosis for this admission?: Yes (6) Diabetes mellitus type 1 with complications Is this a current diagnosis for this admission?: Yes (7) Obesity, morbid, BMI 40.0-49.9 Is this a current diagnosis for this admission?: Yes (8) [place] Is this a current diagnosis for this admission?: Yes (9) Hypocalcemia Is this a current diagnosis for this admission?: Yes (10) Therapeutic opioid induced constipation Is this a current diagnosis for this admission?: Yes (11) Fever Is this a current diagnosis for this admission?: Yes - Additional Information Resuscitation Status: Full Code Discharge Diet: Diabetic, Other (Comments) Discharge Activity: Activity As Tolerated, Balance Activity w/Rest, Weigh Daily Home Medications: Nifedipine [Nifedipine ER] 60 mg PO Q12 01/02/19 Oxcarbazepine [Trileptal] 300 mg PO Q12 01/02/19 Oxycodone HCl/Acetaminophen [Percocet 7.5-325 mg Tablet] 1 tab PO Q6HP PRN 01/02/19 Paroxetine HCl [Paxil 20 mg Tablet] 60 mg PO QPM 01/02/19 Calcitriol 0.5 mcg PO DAILY #90 capsule 01/06/19 Albuterol Sulfate [Proair HFA Inhalation Aerosol 8.5 gm MDI] 2 puff IH Q6HP PRN 02/13/19 Buprenorphine HCl [Belbuca] 300 mcg SL Q12 02/13/19 Cetirizine HCl [Zyrtec 10 mg Tablet] 10 mg PO DAILY 02/13/19 Dicyclomine HCl [Bentyl 20 mg Tablet] 20 mg PO QIDP PRN 02/13/19 Doxepin HCl [Silenor] 6 mg PO QHS 02/13/19 Fluticasone Propionate [Flonase Nasal [place] 50 Mcg/[place] 16 gm] 1 spray NASL DAILY 02/13/19 Omeprazole 40 mg PO DAILY 02/13/19 Ondansetron HCl [Zofran 8 mg Tablet] 8 mg PO Q12 02/13/19 Promethazine HCl [Phenergan 25 mg Tablet] 25 mg PO Q8HP PRN 02/13/19 History of Present Illness History of Present Illness: ERICH GOODMAN is a 33 year old female.She has history of end-stage renal disease on maintenance hemodialysis, type 1 diabetes mellitus, hypertension she came to the emergency room for evaluation of respiratory distress patient typically patient present in this fashion on multiple occasions she will present with acute pulmonary edema usually this will resolve with hemodialysis ,there was associated hyperkalemia.She always require hemodialysis on emergency basis, she was treated for the hyperkalemia in the emergency room Hospital Course Hospital Course: Patient was admitted for the management of acute pulmonary edema probably due to end-stage renal disease from missed hemodialysis.She was seen by nephrology, she underwent hemodialysis on this admission.She had fever of unknown etiology there was no evidence of sepsis, She was also transfused with packed red blood cells Physical Exam Vital Signs: Temp Pulse Resp BP Pulse Ox 98.6 F 98 18 171/75 H 100 02/23/19 19:37 02/23/19 19:37 02/23/19 19:37 02/23/19 19:37 02/23/19 19:37 Intake & Output 02/22/19 02/23/19 02/24/19 06:59 06:59 06:59 Intake Total 500 1425 1000 Output Total 2400 Balance 500 -975 1000 Weight 120.7 kg 122.7 kg General appearance: PRESENT: no acute distress Head exam: PRESENT: atraumatic, normocephalic Eye exam: PRESENT: PERRLA Ear exam: PRESENT: normal external ear exam Mouth exam: PRESENT: moist, tongue midline Neck exam: PRESENT: full ROM Respiratory exam: PRESENT: clear to auscultation freddy Cardiovascular exam: PRESENT: RRR, +S1, +S2 Pulses: PRESENT: normal dorsalis pedis pul, +2 pedal pulses bilateral Vascular exam: PRESENT: normal capillary refill GI/Abdominal exam: PRESENT: normal bowel sounds, soft Rectal exam: PRESENT: deferred Neurological exam: PRESENT: alert, CN II-XII grossly intact Psychiatric exam: PRESENT: appropriate affect, normal mood Skin exam: PRESENT: dry, intact, warm Results Laboratory Results: 02/23/19 05:56 02/22/19 05:00 02/23/19 05:56 WBC 9.9 RBC 2.98 L Hgb 8.8 L Hct 26.5 L MCV 89 MCH 29.5 MCHC 33.1 RDW 15.6 H Plt Count 300 Seg Neutrophils % 70.3 Lymphocytes % 17.4 Monocytes % 10.2 Eosinophils % 1.5 Basophils % 0.6 Absolute Neutrophils 7.0 Absolute Lymphocytes 1.7 Absolute Monocytes 1.0 Absolute Eosinophils 0.2 Absolute Basophils 0.1 02/13/19 02/13/19 07:40 15:35 Troponin I < 0.012 0.022 NT-Pro-B Natriuret Pep 91466 H Impressions: Chest X-Ray 02/22/19 16:36 IMPRESSION: IMPROVED AERATION WITH CLEARING OF THE PREVIOUSLY SEEN AIRSPACE OPACITIES. NO ACUTE RADIOGRAPHIC FINDING IN THE CHEST. Qualifiers - * PATIENT BEING DISCHARGED WITH ANY OF THE FOLLOWING DIAGNOSIS: No
== END 2019-02-23 19:56 | disposition home or self-care (01) | DRG 698 ==
LOC: ER 07:17 → EH 08:51 → ICU 10:24 → 4S 12:15
PROVIDERS: ADMIT Internal Medicine; ATTEND Internal Medicine
PROC: 5A1D70Z Performance of Urinary Filtration, Intermittent, Less than 6 Hours Per Day (ICD-10-PCS; 2019-02-13)
PROC: 30233N1 Transfusion of Nonautologous Red Blood Cells into Peripheral Vein, Percutaneous Approach (ICD-10-PCS; principal; 2019-02-14)
PROC: 06HY33Z Insertion of Infusion Device into Lower Vein, Percutaneous Approach (ICD-10-PCS; 2019-02-16)
DX: E10.22 Type 1 diabetes mellitus with diabetic chronic kidney disease (principal); J81.0 Acute pulmonary edema; I50.23 Acute on chronic systolic (congestive) heart failure; J96.01 Acute respiratory failure with hypoxia; I13.2 Hypertensive heart and chronic kidney disease with heart failure and with stage 5 chronic kidney disease, or end stage renal disease; R29.0 Tetany; Z68.41 Body mass index [BMI] 40.0-44.9, adult; N18.6 End stage renal disease; N25.81 Secondary hyperparathyroidism of renal origin; E83.39 Other disorders of phosphorus metabolism; D63.1 Anemia in chronic kidney disease; E83.51 Hypocalcemia; I25.10 Atherosclerotic heart disease of native coronary artery without angina pectoris; E87.5 Hyperkalemia; K59.03 Drug induced constipation; K31.9 Disease of stomach and duodenum, unspecified; T40.2X5A Adverse effect of other opioids, initial encounter; H93.13 Tinnitus, bilateral; H53.8 Other visual disturbances; R25.1 Tremor, unspecified; E66.01 Morbid (severe) obesity due to excess calories; Y92.230 Patient room in hospital as the place of occurrence of the external cause; Z99.2 Dependence on renal dialysis; Z79.51 Long term (current) use of inhaled steroids; Z79.899 Other long term (current) drug therapy
CPT/HCPCS: 36415; 36430; 36556; 71045; 71046; 76937; 80048; 80053; 82272; 82962; 83605; 83735; 83880; 84100; 84484; 85025; 85027; 86850; 86900; 86901; 86902; 86920; 86922; 87040; 93005; 93010; 94640; 94660; 96374; 96375; 99291; C1751; C1752; J0456; J0610; J0696; J1200; J1642; J1644; J1756; J1815; J1940; J2550; J3490; J7620; P9016; Q4081; S0119

== ENCOUNTER 2019-04-10 14:36 | Emergency (ER) | payer MEDICARE, MEDICAID ==
--- NOTE | 2019-04-10 16:05 | ER Document Report ---
ED General - General Chief Complaint: Headache Stated Complaint: NAUSEA Time Seen by Provider: 04/10/19 15:20 Primary Care Provider: HILARY HERNANDEZ MD [Primary Care Provider] - Follow up as needed Notes: 33-year-old female with end-stage renal disease on dialysis Wednesday/Wednesday/Wednesday, asthma, diabetes presents to the emergency department for headache, nausea, and lethargy while at hemodialysis today. She did not get a full session. In triage her O2 sats were 84% she she will marked back to her room. She was placed on nasal cannula where she recovered and her SPO2 is now greater than 97%. She is unable to open her eyes but she is alert and oriented x4. She follows commands x4. She denies fevers or chills, neck stiffness, shortness of breath or chest pain, abdominal pain. No other complaints. TRAVEL OUTSIDE OF THE [place] IN LAST 30 DAYS: No - Related Data Allergies/Adverse Reactions: aspirin [Aspirin] Allergy (Verified 11/28/18 08:13) Anaphylaxis ciprofloxacin [From Cipro] Allergy (Verified 11/28/18 08:13) Anaphylaxis clindamycin [Clindamycin] Allergy (Verified 11/28/18 08:13) hydrocodone [From Vicodin] Allergy (Verified 11/28/18 08:13) ibuprofen [From Motrin] Allergy (Verified 11/28/18 08:13) Anaphylaxis lidocaine [From Lidoderm] Allergy (Verified 11/28/18 08:13) Generalized rash tramadol HCl [From Ultram] Allergy (Verified 11/28/18 08:13) vancomycin [Vancomycin] Allergy (Verified 11/28/18 08:13) Shortness of Breath nitroglycerin [Nitroglycerin] Adverse Reaction (Intermediate, Verified 11/28/18 08:13) Joint pain Past Medical History - Social History Smoking Status: Unknown if Ever Smoked Family History: Reviewed & Not Pertinent - Past Medical History Cardiac Medical History: Reports: Hx Congestive Heart Failure, Hx Coronary Artery Disease, Hx Hypertension, Hx Heart Murmur Pulmonary Medical History: Reports: Hx Asthma, Hx Pneumonia Neurological Medical History: Reports: Hx Migraine, Hx Seizures - only r/t low calcium Endocrine Medical History: Reports: Hx Diabetes Mellitus Type 1, Hx Diabetes Mellitus Type 2 Renal/ Medical History: Reports: Hx End Stage Renal Disease - On hemodialysis MWF, Hx Hemodialysis, Hx Ovarian Cysts. Denies: Hx Peritoneal Dialysis Malignancy Medical History: GI Medical History: Reports: Hx Gastritis Musculoskeletal Medical History: Skin Medical History: Reports Hx Psoriasis Psychiatric Medical History: Reports: Hx Depression Traumatic Medical History: Infectious Medical History: Past Surgical History: Reports: Hx Appendectomy, Hx Cholecystectomy, Hx Vascular Surgery - Lt AV Fistula and graft; Rt AV fistula. Denies: Hx Hysterectomy - Immunizations Immunizations up to date: Yes Hx Diphtheria, Pertussis, Tetanus Vaccination: Yes Hx Pneumococcal Vaccination: 08/22/11 Review of Systems - Review of Systems Constitutional: See HPI EENT: See HPI Cardiovascular: See HPI Respiratory: See HPI Gastrointestinal: See HPI Genitourinary: See HPI Female Genitourinary: No symptoms reported Musculoskeletal: No symptoms reported Skin: No symptoms reported Hematologic/Lymphatic: No symptoms reported Neurological/Psychological: See HPI Physical Exam - Notes Notes: PHYSICAL EXAMINATION: Reviewed vital signs and charting by RN GENERAL: Mildly ill-appearing, lethargic, well-nourished and in no acute distress, patient does not open her eyes to voice but is interactive and answering questions HEAD: Atraumatic, normocephalic. EYES: Pupils are 3 mm and equal/round/reactive to light, extraocular movements intact, sclera anicteric, conjunctiva are normal. NECK: Normal range of motion, supple without lymphadenopathy. LUNGS: Breath sounds present, equal, and clear to auscultation bilaterally. No wheezes, rales, or rhonchi. HEART: Regular rate and rhythm without murmurs, rubs, or gallops. 2+ peripheral pulses. Normal capillary refill. ABDOMEN: Soft, nontender, nondistended. Normoactive bowel sounds. No guarding, no rebound. No masses appreciated. EXTREMITIES: Normal range of motion, no pitting or edema. No cyanosis. NEUROLOGICAL: No focal neurological deficits. Moves all extremities spontaneously and on command. SKIN: Warm, dry, normal turgor, no rashes or lesions noted. Course - Re-evaluation Re-evalutation: 04/10/19 16:05 Patient presents from dialysis work-up initiated. Venous blood gas obtained as patient is lethargic. Does have history of asthma but her breath sounds are clear in all mckeon. Lab work pending, CT head pending. 04/10/19 18:00 CT had completed shows no intracranial pathology or intracranial bleed. No ventriculomegaly. All of her lab work was unremarkable, her creatinine was 7 which is actually the lowest its been on record here in some time considering she did not get a full dialysis today. No leukocytosis no evidence of infection. Patient does have oxygen at home that she does use not infrequently. He is currently on 2 L here. The nurse ambulated her on 2 L nasal cannula with a pulse ox and she never got below 97%. Her heart rate did not increase and her vital signs remained within normal limits. She is much more alert at t his time and after talking to her she does want to go home. She is stable for discharge - Laboratory Result Diagrams: 04/10/19 15:52 04/10/19 15:52 Laboratory results interpreted by me: 04/10/19 04/10/19 04/10/19 15:16 15:52 15:52 Hgb 10.9 L Hct 33.8 L RDW 16.3 H Eosinophils % 9.0 H Absolute Eosinophils 0.8 H Chloride 91 L BUN 30 H Creatinine 7.04 H Est GFR ( Amer) 8 L Est GFR (Non-Af Amer) 7 L Glucose 184 H POC Glucose 188 H Calcium 8.0 L AST 11 L Alkaline Phosphatase 197 H Total Protein 8.4 H Discharge - Discharge Clinical Impression: Lethargy Headache Qualifiers: Headache type: unspecified Headache chronicity pattern: acute headache Intractability: not intractable Qualified Code(s): R51 - Headache Condition: Good Disposition: HOME, SELF-CARE Additional Instructions: You are seen in the emergency department this afternoon for headache and olivia rgy. Your work-up was completely negative and it is reassuring that you are feeling better at this time. Because you have oxygen at home I am reassured that I can send you home safely. Please use your oxygen at home as needed. Please return to the emergency department if you develop acute shortness of breath while on your oxygen, have severe chest pain, passout, or have any other concerning symptoms. Referrals: HILARY HERNANDEZ MD [Primary Care Provider] - Follow up as needed
[2019-04-10 16:15] LABS: VENOUS BLOOD BASE EXCESS 2.6 mmol/L; VENOUS BLOOD HCO3 29.2 mmol/L (20-32); VENOUS BLOOD PCO2 55.2 mmHg (35-63); VENOUS BLOOD PH 7.34 (7.30-7.42)
[2019-04-10 16:16] LABS: ABSOLUTE BASOPHILS # (AUTO) 0.1 10^3/uL (0.0-0.2); ABSOLUTE EOSINOPHILS # (AUTO) 0.8 10^3/uL (0.0-0.6); ABSOLUTE LYMPHOCYTES (AUTO) 1.5 10^3/uL (0.5-4.7); ABSOLUTE MONOCYTES (AUTO) 0.7 10^3/uL (0.1-1.4); ABSOLUTE NEUT (AUTO) 6.2 10^3/uL (1.7-8.2); BASOPHILS % (AUTO) 0.9 % (0-2); HEMATOCRIT 33.8 % (36.0-47.0); HEMOGLOBIN 10.9 g/dL (12.0-15.5); LYMPHOCYTES % (AUTO) 15.9 % (13-45); MEAN CORPUSCULAR HEMOGLOBIN 28.2 pg (27.0-33.4); MEAN CORPUSCULAR HGB CONC 32.4 g/dL (32.0-36.0); MEAN CORPUSCULAR VOLUME 87 fl (80-97); MONOCYTES % (AUTO) 7.2 % (3-13); PLATELET COUNT 315 10^3/uL (150-450); RED BLOOD COUNT 3.88 10^6/uL (3.72-5.28); RED CELL DISTRIBUTION WIDTH 16.3 % (11.5-14.0); TOTAL CELLS COUNTED % (AUTO) 100 %; WHITE BLOOD COUNT 9.2 10^3/uL (4.0-10.5)
--- NOTE | 2019-04-10 16:20 | RADIOLOGY REPORT (SQ) ---
EXAM DESCRIPTION: CT HEAD WITHOUT COMPLETED DATE/TIME: 04/10/2019 4:12 pm REASON FOR STUDY: Headache, nausea, lethargy COMPARISON: None. TECHNIQUE: Axial images acquired through the brain without intravenous contrast. Images reviewed wi th bone, brain and subdural windows. Additional sagittal and coronal reconstructions were generated. Images stored on PACS. All CT scanners at this facility use dose modulation, iterative reconstruction, and/or weight based d osing when appropriate to reduce radiation dose to as low as reasonably achievable (ALARA). [facility]: Dose Right [facility]: CareDose [facility]: Dose Right [facility]: Teradose 4D [facility]: Smart InteliVideo RADIATION DOSE: CT Rad equipment meets quality standard of care and radiation dose reduction techniq ues were employed. CTDIvol: 53.2 mGy. DLP: 1017 mGy-cm. mGy. LIMITATIONS: None. FINDINGS: VENTRICLES: Normal size and contour. CEREBRUM: No masses. No hemorrhage. No midline shift. No evidence for acute infarction. Normal gra y/white matter differentiation. No areas of low density in the white matter. CEREBELLUM: No masses. No hemorrhage. No alteration of density. No evidence for acute infarction. EXTRAAXIAL SPACES: No fluid collections. No masses. ORBITS AND GLOBE: No intra- or extraconal masses. Normal contour of globe without masses. CALVARIUM: No fracture. PARANASAL SINUSES: No fluid or mucosal thickening. SOFT TISSUES: No mass or hematoma. OTHER: No other significant finding. IMPRESSION: NORMAL BRAIN CT WITHOUT CONTRAST. EVIDENCE OF ACUTE STROKE: NO. COMMENT: Quality ID # [id number]: Final reports with documentation of one or more dose reduction techniques (e.g., Automated exposure control, adjustment of the mA and/or kV according to patient size, use of iterative reconstruction technique) TECHNICAL DOCUMENTATION: JOB ID: [id number] [employer]- All Rights Reserved Reading location - IP/workstation name: [email or web address]
--- NOTE | 2019-04-10 16:23 | RADIOLOGY REPORT (SQ) ---
EXAM DESCRIPTION: CHEST SINGLE VIEW COMPLETED DATE/TIME: 04/10/2019 4:15 pm REASON FOR STUDY: AMS COMPARISON: 02/22/2019 EXAM PARAMETERS: NUMBER OF VIEWS: One view. TECHNIQUE: Single frontal radiographic view of the chest acquired. RADIATION DOSE: NA LIMITATIONS: None. FINDINGS: LUNGS AND PLEURA: No opacities, masses or pneumothorax. No pleural effusion. MEDIASTINUM AND HILAR STRUCTURES: No masses. Contour normal. HEART AND VASCULAR STRUCTURES: Cardiomegaly. No pulmonary edema. BONES: No acute findings. HARDWARE: None in the chest. OTHER: No other significant finding. IMPRESSION: Cardiomegaly without pulmonary edema. TECHNICAL DOCUMENTATION: JOB ID: [id number] [employer]- All Rights Reserved Reading location - IP/workstation name: [email or web address]
[2019-04-10 16:35] LABS: ALANINE AMINOTRANSFERASE 19 U/L (9-52); ALBUMIN 4.5 g/dL (3.5-5.0); ALKALINE PHOSPHATASE 197 U/L (38-126); ANION GAP 17 (5-19); ASPARTATE AMINO TRANSFERASE 11 U/L (14-36); BILIRUBIN,DIRECT 0.4 mg/dL (0.0-0.4); BILIRUBIN,TOTAL 0.4 mg/dL (0.2-1.3); BLOOD UREA NITROGEN 30 mg/dL (7-20); CARBON DIOXIDE 29 mmol/L (22-30); CHLORIDE 91 mmol/L (98-107); GLUCOSE 184 mg/dL (75-110); POTASSIUM 4.6 mmol/L (3.6-5.0); SODIUM 137.2 mmol/L (137-145); TOTAL PROTEIN 8.4 g/dL (6.3-8.2)
[2019-04-10 18:43] VITALS: BP 134/77
== END 2019-04-10 18:43 | disposition home or self-care (01) ==
LOC: ER 14:36
DX: R53.83 Other fatigue (principal); R51 Headache; R11.0 Nausea; E11.22 Type 2 diabetes mellitus with diabetic chronic kidney disease; I13.2 Hypertensive heart and chronic kidney disease with heart failure and with stage 5 chronic kidney disease, or end stage renal disease; I50.9 Heart failure, unspecified; N18.6 End stage renal disease; Z99.2 Dependence on renal dialysis; I25.10 Atherosclerotic heart disease of native coronary artery without angina pectoris
CPT/HCPCS: 36415; 70450; 71045; 80053; 82803; 82962; 85025; 99284

== ENCOUNTER 2019-04-24 08:55 | Observation (INO) | payer MEDICARE, MEDICAID ==
[2019-04-24] MEDS ORDERED: PROMETHAZINE HCL 25 MG TABLET PO ONE (10:16)
[2019-04-24] MEDS ORDERED: CLONIDINE HCL 0.1 MG TABLET PO ONE (10:17)
--- NOTE | 2019-04-24 10:25 | ER Document Report ---
ED Respiratory Problem - General Chief Complaint: Shortness Of Breath Stated Complaint: RESPIRATORY DISTRESS Time Seen by Provider: 04/24/19 09:10 TRAVEL OUTSIDE OF THE [place] IN LAST 30 DAYS: No - HPI Notes: Patient is a 33-year-old female with a history of congestive heart failure, type I diabetic, end-stage renal disease who presents to the emergency department with a chief complaint of shortness of breath. Patient states that on she did have shortness of breath that was present with ambulation only. She did receive a full treatment of dialysis on Wednesday. Patient states that throughout the weekend she noticed her shortness of breath worsened even at rest. Patient has been using her albuterol neb and inhaler without relief. Patient states on the way to the hospital this morning she did develop acute onset of midsternal chest pain that radiates into her mid back that is sharp in nature. Patient also reporting nausea without vomiting. Patient states that she has had a productive cough with yellow sputum over the weekend and at times noticed it was blood tinged. Prescribed medications this morning as she was going to dialysis at 10 AM. - Related Data Allergies/Adverse Reactions: aspirin [Aspirin] Allergy (Verified 04/24/19 09:09) Anaphylaxis ciprofloxacin [From Cipro] Allergy (Verified 04/24/19 09:09) Anaphylaxis clindamycin [Clindamycin] Allergy (Verified 04/24/19 09:09) hydrocodone [From Vicodin] Allergy (Verified 04/24/19 09:09) ibuprofen [From Motrin] Allergy (Verified 04/24/19 09:09) Anaphylaxis lidocaine [From Lidoderm] Allergy (Verified 04/24/19 09:09) Generalized rash tramadol HCl [From Ultram] Allergy (Verified 04/24/19 09:09) vancomycin [Vancomycin] Allergy (Verified 04/24/19 09:09) Shortness of Breath nitroglycerin [Nitroglycerin] Adverse Reaction (Intermediate, Verified 04/24/19 09:09) Joint pain Past Medical History - General Information source: Patient - Social History Smoking Status: Never Smoker Frequency of alcohol use: None Drug Abuse: None Family History: Reviewed & Not Pertinent Patient has suicidal ideation: No Patient has homicidal ideation: No - Past Medical History Cardiac Medical History: Reports: Hx Congestive Heart Failure, Hx Coronary Artery Disease, Hx Hypertension, Hx Heart Murmur Pulmonary Medical History: Reports: Hx Asthma, Hx Pneumonia EENT Medical History: Reports: None Neurological Medical History: Reports: Hx Migraine, Hx Seizures - only r/t low calcium Endocrine Medical History: Reports: Hx Diabetes Mellitus Type 1, Hx Diabetes Mellitus Type 2 Renal/ Medical History: Reports: Hx End Stage Renal Disease - On hemodialysis MWF, Hx Hemodialysis, Hx Ovarian Cysts. Denies: Hx Peritoneal Dialysis - HD M/W/F Malignancy Medical History: Reports: None GI Medical History: Reports: Hx Gastritis Musculoskeletal Medical History: Reports None Skin Medical History: Reports Hx Psoriasis Psychiatric Medical History: Reports: Hx Depression Traumatic Medical History: Reports: None Infectious Medical History: Reports: None Past Surgical History: Reports: Hx Appendectomy, Hx Cholecystectomy, Hx Vascular Surgery - Lt AV Fistula and graft; Rt AV fistula. Denies: Hx Hysterectomy - Immunizations Immunizations up to date: Yes Hx Diphtheria, Pertussis, Tetanus Vaccination: Yes Hx Pneumococcal Vaccination: 08/22/11 Review of Systems - Review of Systems Constitutional: See HPI EENT: No symptoms reported Cardiovascular: See HPI Respiratory: See HPI Gastrointestinal: See HPI Genitourinary: No symptoms reported Female Genitourinary: No symptoms reported Musculoskeletal: No symptoms reported Skin: No symptoms reported Hematologic/Lymphatic: No symptoms reported Neurological/Psychological: No symptoms reported Physical Exam - Vital signs Vitals: Pulse Ox 99 04/24/19 09:00 - Notes Notes: GENERAL: Nontoxic appearing, well-nourished. HEAD: Atraumatic, normocephalic. EYES: Pupils equal round and reactive to light, extraocular movements intact, sclera anicteric, conjunctiva are normal. ENT: Moist mucous membranes. NECK: Normal range of motion, supple without lymphadenopathy or JVD. LUNGS: Bilateral lower lobe coarse breath sounds and upper airway rhonchi that clears with cough, with expiratory wheeze. HEART: Tachycardic rate with a regular rhythm without murmurs, rubs or gallops. Reproducible midsternal chest pain. ABDOMEN: Obese, Soft, nontender, normoactive bowel sounds. No guarding, no rebound. No masses appreciated. BACK: No cervical, thoracic, lumbar midline tenderness. No saddle anesthesia, normal distal neurovascular exam. GENITOURINARY: Deferred. EXTREMITIES: Normal range of motion, no pitting or edema. No clubbing or cyanosis. NEUROLOGICAL: Cranial nerves II through XII grossly intact. Normal speech, normal gait. PSYCH: Normal mood, normal affect. SKIN: Warm, Dry, normal turgor, no rashes or lesions noted. Course - Re-evaluation Re-evalutation: 04/24/19 10:30 Will order basic lab work as well as chest x-ray. Will check a troponin due to the chest pain. Will give a dose of clonidine as she did not take it this morning for her hypertension. 04/24/19 11:10 Upon re-evaluation patient states that her chest discomfort is still present and the breathing treatment did not help her with her breathing. Patient afebrile at 98.6 but reports chills. Patient c/o generalized body aches. Blood pressure improved to 183/93. Patient was due for dialysis today at 1000 am. 04/24/19 12:[address] Farah to consult regarding admission and if in-house dialysis would be available. 04/24/19 12:04 Dr. Farah states that dialysis would be available today for the patient. 04/24/19 12:[address] Singleton who will admit patient and patient to receive dialysis today. Recommended to hold off on antibiotic treatment for possible infiltrates as this could be pulmonary congestion due for the need of dialysis. 04/24/19 12:18 Updated patient on plan of care, patient sleeping on stretcher, no acute distress, 96% on 2LNC. Patient reports generalized body aches, states it feels like she is developing a pneumonia. Patient is stable at this time. - Vital Signs Vital signs: Temp Pulse Resp BP Pulse Ox 98.7 F 95 18 177/84 H 94 04/24/19 13:19 04/24/19 13:19 04/24/19 13:19 04/24/19 13:19 04/24/19 13:19 - Laboratory Result Diagrams: 04/24/19 10:23 04/24/19 10:23 Laboratory results interpreted by me: 04/24/19 04/24/19 04/24/19 10:23 10:23 10:23 WBC 12.1 H RBC 3.31 L Hgb 9.0 L Hct 28.2 L MCHC 31.9 L RDW 16.3 H Lymphocytes % 12.0 L Eosinophils % 8.0 H Absolute Neutrophils 9.0 H Absolute Eosinophils 1.0 H VBG pH 7.44 H Chloride 96 L BUN 41 H Creatinine 10.11 H Est GFR ( Amer) 5 L Est GFR (Non-Af Amer) 4 L Glucose 279 H Calcium 7.4 L Direct Bilirubin 0.5 H Alkaline Phosphatase 156 H - Diagnostic Test Radiology reviewed: Image reviewed, Reports reviewed - EKG Interpretation by Me Additional EKG results interpreted by me: 04/24/19 Patient's EKG shows sinus rhythm with a heart rate of 90, patient does have a prolonged QT interval at 498. She does have a left axis deviation with nonspec ific ST to T abnormality in lateral leads which appear to be consistent with previous ekg. Discharge - Discharge Clinical Impression: Pulmonary congestion, Shortness of breath, ESRD (end stage renal disease) on dialysis, Hypocalcemia, Nausea Condition: Stable Disposition: ADMITTED OBSERVATION Admitting Provider: [facility] Unit Admitted: Telemetry
[2019-04-24] MEDS ORDERED: IPRATROPIUM/ALBUTEROL 0.5-2.5 MG/3 ML AMPUL NEB ONE (10:29)
--- NOTE | 2019-04-24 10:29 | RADIOLOGY REPORT (SQ) ---
EXAM DESCRIPTION: CHEST SINGLE VIEW COMPLETED DATE/TIME: 04/24/2019 10:20 am REASON FOR STUDY: shortness of breath COMPARISON: 04/10/2019 EXAM PARAMETERS: NUMBER OF VIEWS: One view. TECHNIQUE: Single frontal radiographic view of the chest acquired. RADIATION DOSE: NA LIMITATIONS: None. FINDINGS: LUNGS AND PLEURA: Fairly extensive bilateral perihilar airspace disease, may be on the ba sis of edema versus infiltrates. No pneumothorax or pleural effusion. MEDIASTINUM AND HILAR STRUCTURES: No masses. Contour normal. HEART AND VASCULAR STRUCTURES: Cardiomegaly. Pulmonary vascular congestion. BONES: No acute findings. HARDWARE: None in the chest. OTHER: No other significant finding. IMPRESSION: 1. Since the prior study dated 04/10/2019, development of fairly extensive bilateral per ihilar airspace disease, may be on the basis of edema versus infiltrates. 2. Cardiomegaly and pulmonary vascular congestion. TECHNICAL DOCUMENTATION: JOB ID: [id number] [employer] All Rights Reserved Reading location - IP/workstation name: [email or web address]
[2019-04-24 10:34] LABS: ABSOLUTE BASOPHILS # (AUTO) 0.1 10^3/uL (0.0-0.2); ABSOLUTE LYMPHOCYTES (AUTO) 1.4 10^3/uL (0.5-4.7); ABSOLUTE MONOCYTES (AUTO) 0.5 10^3/uL (0.1-1.4); BASOPHILS % (AUTO) 1.2 % (0-2); HEMATOCRIT 28.2 % (36.0-47.0); MEAN CORPUSCULAR HEMOGLOBIN 27.2 pg (27.0-33.4); MEAN CORPUSCULAR HGB CONC 31.9 g/dL (32.0-36.0); MEAN CORPUSCULAR VOLUME 85 fl (80-97); PLATELET COUNT 377 10^3/uL (150-450); RED BLOOD COUNT 3.31 10^6/uL (3.72-5.28); RED CELL DISTRIBUTION WIDTH 16.3 % (11.5-14.0); SEGMENTED NEUTROPHILS % (AUTO) 74.8 % (42-78); TOTAL CELLS COUNTED % (AUTO) 100 %; WHITE BLOOD COUNT 12.1 10^3/uL (4.0-10.5)
[2019-04-24 10:54] LABS: ALANINE AMINOTRANSFERASE 13 U/L (9-52); ALBUMIN 4.3 g/dL (3.5-5.0); ALKALINE PHOSPHATASE 156 U/L (38-126); ANION GAP 19 (5-19); ASPARTATE AMINO TRANSFERASE 15 U/L (14-36); BILIRUBIN,DIRECT 0.5 mg/dL (0.0-0.4); BILIRUBIN,TOTAL 0.5 mg/dL (0.2-1.3); BLOOD UREA NITROGEN 41 mg/dL (7-20); CALCIUM 7.4 mg/dL (8.4-10.2); CARBON DIOXIDE 25 mmol/L (22-30); CHLORIDE 96 mmol/L (98-107); GLUCOSE 279 mg/dL (75-110); POTASSIUM 4.9 mmol/L (3.6-5.0); TOTAL PROTEIN 7.8 g/dL (6.3-8.2)
[2019-04-24 11:36] LABS: VENOUS BLOOD BASE EXCESS 2.6 mmol/L; VENOUS BLOOD PH 7.44 (7.30-7.42)
[2019-04-24] MEDS ORDERED: PIPERACILLIN/TAZOBACTAM 3.375 GM VIAL IV ONE (12:01)
--- NOTE | 2019-04-24 13:07 | EKG REPORT ---
SEVERITY:- ABNORMAL ECG - SINUS RHYTHM BORDERLINE LEFT AXIS DEVIATION = LAFB PROLONGED QT INTERVAL NONSPECIFIC ST-T CHANGES LATERAL LEADS. : Confirmed by: Ciro Beckford MD 24-Apr-2019 13:06:55
[2019-04-24] MEDS ORDERED: NORMAL SALINE 1000 ML 1,000 ML IV PRN (13:51)
[2019-04-24] MEDS ORDERED: EPOETIN ALFA INJ 20000 UNIT/1 ML VIAL (RENAL) IV PRN (13:51)
[2019-04-24] MEDS ORDERED: HEPARIN SOD (PORCINE) 1,000 UNIT/ML 10 ML VIAL IV PRN (15:01)
--- NOTE | 2019-04-24 15:13 | PDOC CONSULTATION ---
Consultation Consult Date: 04/24/19 Provider Consulted: ERICA IVY Consult reason:: I was asked by the emergency room provider to see the patient for possible urgent hemodialysis due to pulmonary congestion in a patient with ESRD on maintenance hemodialysis. History of Present Illness Admission Date/PCP: 04/24/19 12:20 HILARY HERNANDEZ MD History of Present Illness: ERICH GOODMAN is a 33 year old female known to me with ESRD on maintenance hemodialysis on MWF secondary to diabetic nephropathy, diabetes mellitus type 1, hypertension, anemia of chronic kidney disease, obesity, and multiple hospitalizations for the same reason who presented herself to the emergency room this morning due to worsening shortness of breath. Patient states that her shortness of breath started last usually on exertion. She went to her regular dialysis treatment on Wednesday and has completed the treatment with ultrafiltration of 2 L but did not feel any different after dialysis. Over the weekend her shortness of breath has gotten worse and this morning when she got up she was short of breath and decided to come to the emergency room. She also has chest pains in the substernal region which is constant worsened by deep breathing and radiating to the back when she takes a deep breath. She has some cough with scanty phlegm. She is afebrile in the emergency room and still currently. She said that the visit on Wednesday she had a temperature of 99.8. Her chest x-ray in the emergency room showed bilateral perihilar airspace disease which could either be pulmonary edema versus infiltrates. It also indicates cardiomegaly with pulmonary vascular congestion. Currently I am seeing the patient on dialysis treatment as I have arranged her to be dialyzed urgently. She is resting comfortably with oxygen via nasal cannula. She appears to be swollen in her face. Her blood pressure is still elevated as it was when she presented in the emergency room. Otherwise so far she is dialyzing without any problems and tolerating high ultrafiltration rate. Past Medical History Cardiac Medical History: Reports: Coronary Artery Disease, Heart Murmur, Hy pertension-primary Pulmonary Medical History: Reports: Asthma, Pneumonia Neurological Medical History: Reports: Migraine, Seizures - only r/t low calcium Endocrine Medical History: Reports: Diabetes Mellitus Type 1 Complications of Diabetes: Reports: Autonomic Neuropathy, Nephropathy, Retinopathy Renal/ Medical History: Reports: End Stage Renal Disease - On hemodialysis MWF, Hyperkalemia, Hyperphosphatemia, Secondary Hyperparathyroidism Malignancy Medical History: GI Medical History: Musculoskeltal Medical History: Skin Medical History: Reports: Psoriasis Psychiatric Medical History: Reports: Depression Infectious Medical History: Hematology Medical History: Reports Anemia of Chronic Kidney Disease Past Surgical History Past Surgical History: Reports: Appendectomy, Cholecystectomy, Dialysis Access Surgery AVF Social History Information Source: Patient, [facility] Records Smoking Status: Never Smoker Frequency of Alcohol Use: None Hx Recreational Drug Use: No Drugs: None Hx Prescription Drug Abuse: No Family History Family History: Other Family History: No family history of kidney disease. Parental Family History Reviewed: Yes Children Family History Reviewed: Yes Sibling(s) Family History Reviewed.: Yes Medication/Allergy Allergies/Adverse Reactions: aspirin [Aspirin] Allergy (Verified 04/24/19 09:09) Anaphylaxis ciprofloxacin [From Cipro] Allergy (Verified 04/24/19 09:09) Anaphylaxis clindamycin [Clindamycin] Allergy (Verified 04/24/19 09:09) hydrocodone [From Vicodin] Allergy (Verified 04/24/19 09:09) ibuprofen [From Motrin] Allergy (Verified 04/24/19 09:09) Anaphylaxis lidocaine [From Lidoderm] Allergy (Verified 04/24/19 09:09) Generalized rash tramadol HCl [From Ultram] Allergy (Verified 04/24/19 09:09) vancomycin [Vancomycin] Allergy (Verified 04/24/19 09:09) Shortness of Breath nitroglycerin [Nitroglycerin] Adverse Reaction (Intermediate, Verified 04/24/19 09:09) Joint pain Review of Systems All systems: reviewed and no additional remarkable complaints except as stated Review of Systems: Constitutional: ABSENT: chills, fatigue, headache(s), weight gain, weight loss; admits low-grade temperature Eyes: ABSENT: visual disturbances Ears: ABSENT: hearing changes Cardiovascular: ABSENT: chest pain, edema, orthropnea, palpitations; admits dyspnea on exertion Respiratory: ABSENT: Dyspnea, hemoptysis; admits cough Gastrointestinal: ABSENT: abdominal pain, constipation, diarrhea, hematemesis, hematochezia, vomiting; admits nausea Genitourinary: ABSENT: dysuria, hematuria Musculoskeletal: ABSENT: joint swelling Integumentary: ABSENT: rash, wounds Neurological: ABSENT: abnormal gait, abnormal speech, confusion, dizziness, focal weakness, numbness, syncope Psychiatric: ABSENT: anxiety, depression Endocrine: ABSENT: cold intolerance, heat intolerance, polydipsia, polyuria Hematologic/Lymphatic: ABSENT: easy bleeding, easy bruising, lymphadenopathy Physical Exam Vital Signs: Temp Pulse Resp BP Pulse Ox 98.7 F 95 18 177/84 H 94 04/24/19 13:19 04/24/19 13:19 04/24/19 13:19 04/24/19 13:19 04/24/19 13:19 Intake & Output 04/23/19 04/24/19 04/25/19 06:59 06:59 06:59 Weight 113.5 kg Vitals during dialysis: Blood pressure 206/103, heart rate of 87, blood flow rate of 400 mL/min and dialysate flow rate of 800ml/min. Exam: General appearance: No acute distress, comfortable with oxygen via nasal cannula cooperative, well-developed, well-nourished Head exam: PRESENT: atraumatic, normocephalic Eye exam: PRESENT: Conjunctiva pale, EOMI, PERRLA. Positive periorbital edema and facial swelling ABSENT: conjunctival injection, scleral icterus Mouth exam: PRESENT: moist, neck supple, tongue midline Neck exam: PRESENT: full ROM. ABSENT: carotid bruit, JVD, lymphadenopathy, thyromegaly Respiratory exam: PRESENT: Diminished to auscultation bilaterally. ABSENT: rales, rhonchi, stridor, wheezes Cardiovascular exam: PRESENT: RRR, +S1, +S2. ABSENT: systolic murmur Pulses: PRESENT: normal radial pulses, normal dorsalis pedis pulses GI/Abdominal exam: PRESENT: normal bowel sounds, soft. ABSENT: guarding, mass, tenderness Rectal exam: Deferred Extremities exam: PRESENT: full ROM. ABSENT: calf tenderness, pedal edema Musculoskeletal: PRESENT: full ROM. ABSENT: deformity Neurological exam: PRESENT: alert, Awake, Oriented to person, Oriented to place, Oriented to time, reflexes normal, CN II-XII grossly intact. ABSENT: motor sensory deficit Psychiatric exam: PRESENT: appropriate affect, normal mood. ABSENT: homicidal ideation, suicidal ideation Skin exam: PRESENT: intact, dry, warm. ABSENT: rash Results Laboratory Results: 04/24/19 10:23 04/24/19 10:23 04/24/19 04/24/19 04/24/19 10:23 10:23 10:23 WBC 12.1 H RBC 3.31 L Hgb 9.0 L Hct 28.2 L MCV 85 MCH 27.2 MCHC 31.9 L RDW 16.3 H Plt Count 377 Seg Neutrophils % 74.8 Lymphocytes % 12.0 L Monocytes % 4.0 Eosinophils % 8.0 H Basophils % 1.2 Absolute Neutrophils 9.0 H Absolute Lymphocytes 1.4 Absolute Monocytes 0.5 Absolute Eosinophils 1.0 H Absolute Basophils 0.1 VBG pH 7.44 H VBG pCO2 41.0 VBG HCO3 27.0 VBG Base Excess 2.6 Sodium 140.0 Potassium 4.9 Chloride 96 L Carbon Dioxide 25 Anion Gap 19 BUN 41 H Creatinine 10.11 H Est GFR ( Amer) 5 L Est GFR (Non-Af Amer) 4 L Glucose 279 H Calcium 7.4 L Total Bilirubin 0.5 AST 15 ALT 13 Alkaline Phosphatase 156 H Total Protein 7.8 Albumin 4.3 04/24/19 10:23 Troponin I < 0.012 Impressions: Chest X-Ray 04/24/19 09:53 IMPRESSION: 1. Since the prior study dated 04/10/2019, development of fairly extensive bilateral perihilar airspace disease, may be on the basis of edema versus infiltrates. 2. Cardiomegaly and pulmonary vascular congestion. Assessment & Plan - Diagnosis (1) End stage renal disease on dialysis Is this a current diagnosis for this admission?: Yes Plan: Due to possible acute pulmonary edema with vascular congestion I raised the patient to be dialyzed urgently. We will do dialysis today for 3.5 hours, using the patient's right upper arm AV fistula, with 2 potassium bath, blood flow rate of 400 mL per minute, dialysate flow rate of 800 mL per minute, ultrafiltration 4 to 5 L as tolerated, regular heparin per protocol and Procrit with 20,000 units during dialysis intravenously. Discussed careful ultrafiltration our dialysis nurses as long as blood pressure is okay. Patient will be monitored throughout dialysis treatment. (2) Shortness of breath Is this a current diagnosis for this admission?: Yes Plan: Likely secondary to acute pulmonary edema with or without possible concomitant pulmonary infection. (3) Acute pulmonary edema Is this a current diagnosis for this admission?: Yes Plan: We will do aggressive ultrafiltration during dialysis as long as the patient tolerates. (4) Anemia in chronic kidney disease (CKD) Is this a current diagnosis for this admission?: Yes Plan: We will give Procrit 20,000 units during dialysis intravenously. (5) Bilateral pulmonary infiltrates on CXR Is this a current diagnosis for this admission?: Yes Plan: Consistent with acute pulmonary edema with or without underlying consolidation or pneumonia. (6) Diabetes mellitus type 1 with complications Is this a current diagnosis for this admission?: Yes (7) Hypertension Qualifiers: Hypertension type: essential hypertension Qualified Code(s): I10 - Essential (primary) hypertension Is this a current diagnosis for this admission?: Yes Plan: Uncontrolled likely secondary to fluid retention. Patient's blood pressure usually gets controlled with her usual regular blood pressure medications as long as she is near euvolemia. Continue all home blood pressure medications. - Notes Notes: Thank you very much for this consultation. We will continue to supervise dialysis while patient is here in the hospital. - Time Time Spent: 50 to 70 Minutes
[2019-04-24] MEDS ORDERED: PROMETHAZINE HCL INJ 25 MG/1 ML VIAL IV ONE (17:15)
[2019-04-24] MEDS ORDERED: CALCIUM GLUCONATE 1000 MG/10 ML INJ IV ONE (17:30)
--- NOTE | 2019-04-24 21:24 | PDOC H&P ---
History of Present Illness Admission Date/PCP: 04/24/19 12:20 HILARY HERNANDEZ MD History of Present Illness: ERICH GOODMAN is a 33 year old female,She has a history of end-stage renal d issergioe on maintenance hemodialysis she presented to the emergency room for evaluation of shortness of breath chest x-ray that was done demonstrated pulmonary edema. Patient has presented multiple times with flash pulmonary edema, typically after hemodialysis, the symptoms would improved.There was a concern that she may have pneumonia, I do not share that concern because usually after hemodialysis the pulmonary edema will resolve Past Medical History Cardiac Medical History: Reports: Congestive Heart Failure, Coronary Artery Disease, Hypertension, Heart Murmur Pulmonary Medical History: Reports: Asthma, Pneumonia EENT Medical History: Reports: None Neurological Medical History: Reports: Migraine, Seizures - only r/t low calcium Endocrine Medical History: Reports: Diabetes Mellitus Type 1, Diabetes Mellitus Type 2 Renal/ Medical History: Reports: End Stage Renal Disease - On hemodialysis MWF Malignancy Medical History: Reports: None GI Medical History: Musculoskeltal Medical History: Reports: None Skin Medical History: Reports: Psoriasis Psychiatric Medical History: Reports: Depression Traumatic Medical History: Reports: None Hematology: Reports: Anemia Infectious Medical History: Reports: None Past Surgical History Past Surgical History: Reports: Appendectomy, Cholecystectomy, Vascular Surgery - Lt AV Fistula and graft; Rt AV fistula Social History Smoking Status: Never Smoker Frequency of Alcohol Use: None Hx Recreational Drug Use: No Drugs: None Hx Prescription Drug Abuse: No Family History Family History: Reviewed & Not Pertinent Parental Family History Reviewed: Yes Children Family History Reviewed: Yes Sibling(s) Family History Reviewed.: Yes Medication/Allergy Home Medications: Alprazolam [Xanax 0.5 mg Tablet] 0.5 mg PO BIDP PRN 04/24/19 Buprenorphine HCl [Belbuca] 450 mcg BC Q12 04/24/19 Carvedilol [Coreg 12.5 mg Tablet] 12.5 mg PO Q12 04/24/19 Clonidine HCl [Catapres 0.1 mg Tablet] 0.1 mg PO Q8 04/24/19 Furosemide [Lasix 80 mg Tablet] 80 mg PO TID 04/24/19 Insulin Detemir [Levemir] 30 unit SQ BID 04/24/19 Insulin Lispro [Humalog Insulin 100 Unit/1 ml 3 ml Vial] 0 unit SUBCUT .SLD SCALE 04/24/19 Nifedipine [Nifedipine ER] 60 mg PO Q12 04/24/19 Oxcarbazepine [Trileptal] 300 mg PO Q12 04/24/19 Oxycodone HCl/Acetaminophen [Percocet 7.5-325 mg Tablet] 1 each PO Q6HP PRN 04/24/19 Paroxetine HCl [Paxil 20 mg Tablet] 20 mg PO QHS 04/24/19 Paroxetine HCl [Paxil] 40 mg PO QHS 04/24/19 Promethazine HCl [Phenergan 25 mg Tablet] 25 mg PO Q8HP PRN 04/24/19 Allergies/Adverse Reactions: aspirin [Aspirin] Allergy (Verified 04/24/19 09:09) Anaphylaxis ciprofloxacin [From Cipro] Allergy (Verified 04/24/19 09:09) Anaphylaxis clindamycin [Clindamycin] Allergy (Verified 04/24/19 09:09) hydrocodone [From Vicodin] Allergy (Verified 04/24/19 09:09) ibuprofen [From Motrin] Allergy (Verified 04/24/19 09:09) Anaphylaxis lidocaine [From Lidoderm] Allergy (Verified 04/24/19 09:09) Generalized rash tramadol HCl [From Ultram] Allergy (Verified 04/24/19 09:09) vancomycin [Vancomycin] Allergy (Verified 04/24/19 09:09) Shortness of Breath nitroglycerin [Nitroglycerin] Adverse Reaction (Intermediate, Verified 04/24/19 09:09) Joint pain Review of Systems Constitutional: ABSENT: chills, fever(s), headache(s), weight gain, weight loss Eyes: ABSENT: visual disturbances Ears: ABSENT: hearing changes Cardiovascular: PRESENT: dyspnea on exertion Respiratory: ABSENT: cough, hemoptysis Gastrointestinal: ABSENT: abdominal pain, constipation, diarrhea, hematemesis, hematochezia, nausea, vomiting Genitourinary: ABSENT: dysuria, hematuria Musculoskeletal: ABSENT: joint swelling Integumentary: ABSENT: rash, wounds Neurological: ABSENT: abnormal gait, abnormal speech, confusion, dizziness, focal weakness, syncope Psychiatric: ABSENT: anxiety, depression, homidical ideation, suicidal ideation Endocrine: ABSENT: cold intolerance, heat intolerance, menstrual abnormalities, polydipsia, polyuria Hematologic/Lymphatic: ABSENT: easy bleeding, easy bruising, lymphadenopathy Physical Exam Vital Signs: Temp Pulse Resp BP Pulse Ox 99.5 F 101 H 18 148/78 H 93 04/24/19 19:25 04/24/19 19:25 04/24/19 19:25 04/24/19 19:25 04/24/19 19:25 Intake & Output 04/23/19 04/24/19 04/25/19 06:59 06:59 06:59 Output Total 5300 Balance -5300 Weight 113.5 kg General appearance: PRESENT: mild distress Head exam: PRESENT: atraumatic, normocephalic Ear exam: PRESENT: normal external ear exam Mouth exam: PRESENT: moist, tongue midline Neck exam: PRESENT: full ROM Respiratory exam: PRESENT: crackles, rhonchi Cardiovascular exam: PRESENT: RRR, +S1, +S2 Pulses: PRESENT: normal dorsalis pedis pul, +2 pedal pulses bilateral Vascular exam: PRESENT: normal capillary refill GI/Abdominal exam: PRESENT: normal bowel sounds, soft Rectal exam: PRESENT: deferred Neurological exam: PRESENT: alert, awake, oriented to person, oriented to place, oriented to time, oriented to situation, CN II-XII grossly intact Psychiatric exam: PRESENT: appropriate affect, normal mood Skin exam: PRESENT: dry, intact, warm Results Laboratory Results: 04/24/19 10:23 04/24/19 10:23 04/24/19 04/24/19 04/24/19 10:23 10:23 10:23 WBC 12.1 H RBC 3.31 L Hgb 9.0 L Hct 28.2 L MCV 85 MCH 27.2 MCHC 31.9 L RDW 16.3 H Plt Count 377 Seg Neutrophils % 74.8 Lymphocytes % 12.0 L Monocytes % 4.0 Eosinophils % 8.0 H Basophils % 1.2 Absolute Neutrophils 9.0 H Absolute Lymphocytes 1.4 Absolute Monocytes 0.5 Absolute Eosinophils 1.0 H Absolute Basophils 0.1 VBG pH 7.44 H VBG pCO2 41.0 VBG HCO3 27.0 VBG Base Excess 2.6 Sodium 140.0 Potassium 4.9 Chloride 96 L Carbon Dioxide 25 Anion Gap 19 BUN 41 H Creatinine 10.11 H Est GFR ( Amer) 5 L Est GFR (Non-Af Amer) 4 L Glucose 279 H Calcium 7.4 L Total Bilirubin 0.5 AST 15 ALT 13 Alkaline Phosphatase 156 H Total Protein 7.8 Albumin 4.3 04/24/19 10:23 Troponin I < 0.012 Impressions: Chest X-Ray 04/24/19 09:53 IMPRESSION: 1. Since the prior study dated 04/10/2019, development of fairly extensive bilateral perihilar airspace disease, may be on the basis of edema versus infiltrates. 2. Cardiomegaly and pulmonary vascular congestion. Assessment & Plan - Diagnosis (1) Flash pulmonary edema Is this a current diagnosis for this admission?: Yes Plan: This is most likely from acute diastolic heart failure (2) Acute diastolic (congestive) heart failure Is this a current diagnosis for this admission?: Yes (3) End stage kidney disease Is this a current diagnosis for this admission?: Yes
[2019-04-24] MEDS ORDERED: ALPRAZOLAM 0.5 MG TABLET PO PRN (21:35)
[2019-04-24] MEDS ORDERED: INSULIN LISPRO 100 UNIT/ML 3 ML VIAL SUBCUT SCH (21:45)
[2019-04-24] MEDS ORDERED: PAROXETINE HCL 20 MG TABLET PO SCH (22:00)
[2019-04-24] MEDS ORDERED: BUPRENORPHINE HCL 450 MCG BC SCH (22:00)
[2019-04-24] MEDS: NIFEDIPINE 30 MG TAB.ER.24 PO SCH (22:24)
[2019-04-24] MEDS: OXCARBAZEPINE 150 MG TABLET PO SCH (22:24)
[2019-04-24] MEDS: CLONIDINE HCL 0.1 MG TABLET PO SCH (22:24)
[2019-04-24] MEDS: PAROXETINE HCL 20 MG TABLET PO SCH (22:24)
[2019-04-24] MEDS: CARVEDILOL 12.5 MG TABLET PO SCH (22:24)
[2019-04-24] MEDS: FUROSEMIDE 80 MG TABLET PO SCH (22:24)
[2019-04-24] MEDS: INSULIN LISPRO 100 UNIT/ML 3 ML VIAL SUBCUT SCH (22:24)
[2019-04-24] MEDS ORDERED: GLUCAGON,HUMAN RECOMB 1 MG INJ IM PRN (22:30)
[2019-04-24] MEDS ORDERED: DEXTROSE 50%-WATER SYRINGE 25 GM/50 ML DOSE IV PRN (22:30)
[2019-04-24] MEDS ORDERED: DEXTROSE 40% GEL 15 GM TUBE X 2 PO PRN (22:30)
[2019-04-24] MEDS ORDERED: DEXTROSE 40% GEL 15 GM TUBE PO PRN (22:30)
[2019-04-24] MEDS ORDERED: DEXTROSE 50%-WATER SYRINGE 12.5 GM/25 ML DOSE IV PRN (22:30)
[2019-04-25] MEDS: FUROSEMIDE 80 MG TABLET PO SCH ×3 (05:35→21:57)
[2019-04-25] MEDS: CLONIDINE HCL 0.1 MG TABLET PO SCH ×3 (05:35→21:57)
[2019-04-25] MEDS: INSULIN LISPRO 100 UNIT/ML 3 ML VIAL SUBCUT SCH ×4 (07:56→21:58)
[2019-04-25] MEDS: OXCARBAZEPINE 150 MG TABLET PO SCH ×2 (09:20→21:57)
[2019-04-25] MEDS: NIFEDIPINE 30 MG TAB.ER.24 PO SCH ×2 (09:20→21:57)
[2019-04-25] MEDS: CARVEDILOL 12.5 MG TABLET PO SCH ×2 (09:20→21:57)
[2019-04-25] MEDS ORDERED: (PENDING PHARMACY ID) (Oxycodone Hcl/Acetaminophen [Percocet 7.5-325 Mg Tablet] 1 EACH) PO PRN (09:29)
[2019-04-25] MEDS ORDERED: INSULIN DETEMIR 30 UNIT SQ SCH (10:00)
[2019-04-25] MEDS ORDERED: INSULIN GLARGINE,HUM.REC.ANLOG 1,000 UNIT/10 ML VIAL SUBCUT SCH ×2 (10:00→22:00)
[2019-04-25] MEDS: PROMETHAZINE HCL 25 MG TABLET PO PRN ×2 (10:09→18:46)
[2019-04-25] MEDS: OXYCODONE HCL IR 5 MG TABLET PO PRN ×2 (10:10→18:46)
[2019-04-25] MEDS: OXYCODONE-ACETAMINOPHEN 5-325 MG TABLET PO PRN ×2 (10:10→18:46)
--- NOTE | 2019-04-25 20:57 | XCELERA REPORT ---
[address] [address] Transthoracic Echocardiogram Report Name: ERICH GOODMAN Age: 33 yrs Gender: Female : 1985 [facility]: 04/25/2019 06:08 PM Height: 67 in Weight: 245 lb BSA: 2.2 m2 Procedure: A two-dimensional transthoracic echocardiogram with color flow and Doppler was performed. Study Quality: Poor. The study was technically difficult with many images being suboptimal in quality. Images were not obtained from all of the standard acoustic windows due to the limited scope of the study. Reason For Study: chf History: CHF. Ordering Physician: HILARY HERNANDEZ Performed By: Corinna Mckeon Interpretation Summary The left ventricle is grossly normal size. There is normal left ventricular wall thickness. No True apical 2 chamber views obtained.Hence cannot comment on the apical anterior , the basal anterior, the basal inferior and apical inferior rubio.The mid anterior , the mid inferior and the rest of the LV rubio contract normally. .Normal LVEF is normal and is greater than 65% in the limited views. Doppler measurements suggest normal left ventricular diastolic function The right ventricle is not well visualized secondary to technical limitations The left atrial size is normal. There is no evidence of mitral valve prolapse. There is no vegetation seen on the mitral valve. There is no mitral valve stenosis. There is a trace amount of mitral regurgitation There is mild aortic stenosis There is a peak gradient of 16 mm of Hg. No hemodynamically significant valvular aortic stenosis. No aortic regurgitation is present. TV notwell seen,and poor doppler interogation.Hence cannot comment on TS or TR , and cannot clculste zRVSP. The pulmonic valve is not well visualized. There is no pericardial effusion. MMode/2D Measurements & Calculations RVDd: 1.9 cm LVIDd: 4.2 cm FS: 27.0 % Ao root diam: 2.3 cm IVSd: 0.99 cm LVIDs: 3.1 cm EDV(Teich): 80.6 ml Ao root area: 4.0 cm2 LVPWd: 1.1 cm ESV(Teich): 37.9 ml LA dimension: 3.4 cm EF(Teich): 53.0 % LVOT diam: 2.1 cm LVOT area: 3.5 cm2 Doppler Measurements & Calculations MV E max niranjan: MV P1/2t max niranjan: Ao V2 max: LV V1 max P.5 cm/sec 131.5 cm/sec 198.2 cm/sec 6.6 mmHg MV A max niranjan: MV P1/2t: 43.1 msec Ao max PG: LV V1 max: 107.1 cm/sec MVA(P1/2t): 5.1 cm2 15.7 mmHg 128.3 cm/sec MV E/A: 1.1 MV dec slope: DEANDRE(V,D): 2.2 cm2 894.3 cm/sec2 MV dec time: 0.19 sec PA V2 max: PI end-d niranjan: MV P1/2t-pr_phl: 128.1 cm/sec 163.2 cm/sec 43.1 msec PA max P.6 mmHg Left Ventricle The left ventricle is grossly normal size. There is normal left ventricular wall thickness. No True apical 2 chamber views obtained.Hence cannot comment on the apical anterior , the basal anterior, the basal inferior and apical inferior rubio.The mid anterior , the mid inferior and the rest of the LV rubio contract normally. .Normal LVEF is normal and is greater than 65% in the limited views. Doppler measurements suggest normal left ventricular diastolic function. Right Ventricle The right ventricle is not well visualized secondary to technical limitations. Atria Right atrium not well visualized secondary to technical limitations. The left atrial size is normal. Mitral Valve There is mild mitral annular calcification. There is no evidence of mitral valve prolapse. There is no vegetation seen on the mitral valve. There is no mitral valve stenosis. There is a trace amount of mitral regurgitation. Aortic Valve There is mild aortic stenosis. There is a peak gradient of 16 mm of Hg. No hemodynamically significant valvular aortic stenosis. No aortic regurgitation is present. Tricuspid Valve TV notwell seen,and poor doppler interogation.Hence cannot comment on TS or TR , and cannot clculste zRVSP. Pulmonic Valve The pulmonic valve is not well visualized. Great Vessels The aortic root is not well visualized. Effusions There is no pericardial effusion. : HILARY HERNANDEZ > Beatriz Leyva
[2019-04-25] MEDS: PAROXETINE HCL 20 MG TABLET PO SCH (21:57)
[2019-04-25] MEDS: INSULIN GLARGINE,HUM.REC.ANLOG 1,000 UNIT/10 ML VIAL SUBCUT SCH (22:02)
[2019-04-26] MEDS ORDERED: EPOETIN ALFA INJ 20000 UNIT/1 ML VIAL (RENAL) IV PRN (05:00)
[2019-04-26] MEDS ORDERED: HEPARIN SOD (PORCINE) 1,000 UNIT/ML 10 ML VIAL IV PRN (05:00)
[2019-04-26] MEDS: OXYCODONE-ACETAMINOPHEN 5-325 MG TABLET PO PRN (05:47)
[2019-04-26] MEDS: OXYCODONE HCL IR 5 MG TABLET PO PRN (05:47)
[2019-04-26] MEDS: PROMETHAZINE HCL 25 MG TABLET PO PRN (05:47)
[2019-04-26] MEDS: CLONIDINE HCL 0.1 MG TABLET PO SCH (06:22)
[2019-04-26] MEDS: FUROSEMIDE 80 MG TABLET PO SCH (06:22)
[2019-04-26 06:49] LABS: ABSOLUTE BASOPHILS # (AUTO) 0.1 10^3/uL (0.0-0.2); ABSOLUTE EOSINOPHILS # (AUTO) 0.7 10^3/uL (0.0-0.6); ABSOLUTE LYMPHOCYTES (AUTO) 2.3 10^3/uL (0.5-4.7); ABSOLUTE MONOCYTES (AUTO) 0.7 10^3/uL (0.1-1.4); EOSINOPHILS % (AUTO) 7.6 % (0-6); HEMATOCRIT 29.2 % (36.0-47.0); HEMOGLOBIN 9.7 g/dL (12.0-15.5); LYMPHOCYTES % (AUTO) 26.3 % (13-45); MEAN CORPUSCULAR HEMOGLOBIN 28.3 pg (27.0-33.4); MEAN CORPUSCULAR HGB CONC 33.2 g/dL (32.0-36.0); MEAN CORPUSCULAR VOLUME 85 fl (80-97); MONOCYTES % (AUTO) 8.1 % (3-13); PLATELET COUNT 400 10^3/uL (150-450); RED BLOOD COUNT 3.43 10^6/uL (3.72-5.28); RED CELL DISTRIBUTION WIDTH 16.5 % (11.5-14.0); TOTAL CELLS COUNTED % (AUTO) 100 %; WHITE BLOOD COUNT 8.8 10^3/uL (4.0-10.5)
[2019-04-26 07:14] LABS: BLOOD UREA NITROGEN 54 mg/dL (7-20); CALCIUM 8.3 mg/dL (8.4-10.2); CHLORIDE 94 mmol/L (98-107); GLUCOSE 97 mg/dL (75-110); POTASSIUM 4.9 mmol/L (3.6-5.0); SODIUM 138.8 mmol/L (137-145)
[2019-04-26 07:21] LABS: CARBON DIOXIDE 25 mmol/L (22-30)
[2019-04-26 07:26] LABS: ANION GAP 20 (5-19)
[2019-04-26] MEDS ORDERED: DIPHENHYDRAMINE HCL 50 MG/ML VIAL IV ONE (09:45)
[2019-04-26] MEDS: CARVEDILOL 12.5 MG TABLET PO SCH (10:00)
[2019-04-26] MEDS: INSULIN LISPRO 100 UNIT/ML 3 ML VIAL SUBCUT SCH (12:53)
[2019-04-26] MEDS: OXCARBAZEPINE 150 MG TABLET PO SCH (12:59)
[2019-04-26] MEDS: INSULIN GLARGINE,HUM.REC.ANLOG 1,000 UNIT/10 ML VIAL SUBCUT SCH (12:59)
[2019-04-26] MEDS: NIFEDIPINE 30 MG TAB.ER.24 PO SCH (12:59)
[2019-04-26 14:32] VITALS: BP 112/55
--- NOTE | 2019-04-26 15:09 | PDOC DISCHARGE SUMMARY ---
General - Admit/Disc Date/PCP Admission Date/Primary Care Provider: 04/24/19 12:20 HILARY HERNANDEZ MD Discharge Date: 04/26/19 - Discharge Diagnosis (1) Flash pulmonary edema Is this a current diagnosis for this admission?: Yes (2) Acute diastolic (congestive) heart failure Is this a current diagnosis for this admission?: Yes (3) End stage kidney disease Is this a current diagnosis for this admission?: Yes - Additional Information Discharge Diet: Cardiac, Diabetic, Other (Comments) Discharge Activity: Activity As Tolerated, Balance Activity w/Rest, Weigh Daily Home Medications: Alprazolam [Xanax 0.5 mg Tablet] 0.5 mg PO BIDP PRN 04/24/19 Buprenorphine HCl [Belbuca] 450 mcg BC Q12 04/24/19 Carvedilol [Coreg 12.5 mg Tablet] 12.5 mg PO Q12 04/24/19 Clonidine HCl [Catapres 0.1 mg Tablet] 0.1 mg PO Q8 04/24/19 Furosemide [Lasix 80 mg Tablet] 80 mg PO TID 04/24/19 Insulin Detemir [Levemir] 30 unit SQ BID 04/24/19 Insulin Lispro [Humalog Insulin (Lispro) 100 unit/mL] 0 unit SUBCUT .SLD SCALE 04/24/19 Nifedipine [Nifedipine ER] 60 mg PO Q12 04/24/19 Oxcarbazepine [Trileptal] 300 mg PO Q12 04/24/19 Oxycodone HCl/Acetaminophen [Percocet 7.5-325 mg Tablet] 1 each PO Q6HP PRN 04/24/19 Paroxetine HCl [Paxil 20 mg Tablet] 20 mg PO QHS 04/24/19 Paroxetine HCl [Paxil] 40 mg PO QHS 04/24/19 Promethazine HCl [Phenergan 25 mg Tablet] 25 mg PO Q8HP PRN 04/24/19 History of Present Illness History of Present Illness: ERICH GOODMAN is a 33 year old female,She has a history of end-stage renal disease on maintenance hemodialysis she presented to the emergency room for cynthia luation of shortness of breath chest x-ray that was done demonstrated pulmonary edema. Patient has presented multiple times with flash pulmonary edema, typically after hemodialysis, the symptoms would improved.There was a concern that she may have pneumonia, I do not share that concern because usually after hemodialysis the pulmonary edema will resolve Hospital Course Hospital Course: Patient was admitted for the management of flash pulmonary edema, she has end- stage renal disease on maintenance hemodialysis, 2D echo was done, it demonstrated normal ejection fraction of left ventricle. Doppler assessment did not demonstrate any evidence of diastolic dysfunction. She was seen by nephrology she underwent hemodialysis on this admission patient was seen today she is stable to be discharged home today Physical Exam Vital Signs: Temp Pulse Resp BP Pulse Ox 98.5 F 88 19 112/55 L 100 04/26/19 12:00 04/26/19 12:00 04/26/19 12:00 04/26/19 12:00 04/26/19 12:00 Intake & Output 04/25/19 04/26/19 04/27/19 06:59 06:59 06:59 Intake Total 320 1761 Output Total 5300 Balance -4980 1761 Weight 111.5 kg 111.5 kg General appearance: PRESENT: no acute distress, well-developed, well-nourished Head exam: PRESENT: atraumatic, normocephalic Eye exam: PRESENT: conjunctiva pink, EOMI, PERRLA Ear exam: PRESENT: normal external ear exam Mouth exam: PRESENT: moist, tongue midline Neck exam: PRESENT: full ROM Respiratory exam: PRESENT: clear to auscultation freddy Cardiovascular exam: PRESENT: RRR, +S1, +S2 Pulses: PRESENT: normal dorsalis pedis pul, +2 pedal pulses bilateral Vascular exam: PRESENT: normal capillary refill GI/Abdominal exam: PRESENT: normal bowel sounds, soft Rectal exam: PRESENT: deferred Neurological exam: PRESENT: alert, awake, oriented to person, oriented to place, oriented to time, oriented to situation, CN II-XII grossly intact Psychiatric exam: PRESENT: appropriate affect, normal mood Skin exam: PRESENT: dry, intact, warm Results Laboratory Results: 04/26/19 05:53 04/26/19 05:53 04/26/19 04/26/19 05:53 05:53 WBC 8.8 RBC 3.43 L Hgb 9.7 L Hct 29.2 L MCV 85 MCH 28.3 MCHC 33.2 RDW 16.5 H Plt Count 400 Seg Neutrophils % 57.0 Lymphocytes % 26.3 Monocytes % 8.1 Eosinophils % 7.6 H Basophils % 1.0 Absolute Neutrophils 5.0 Absolute Lymphocytes 2.3 Absolute Monocytes 0.7 Absolute Eosinophils 0.7 H Absolute Basophils 0.1 Sodium 138.8 Potassium 4.9 Chloride 94 L Carbon Dioxide 25 Anion Gap 20 H BUN 54 H Creatinine 10.20 H Est GFR ( Amer) 5 L Est GFR (Non-Af Amer) 4 L Glucose 97 Calcium 8.3 L 04/24/19 10:23 Troponin I < 0.012 Impressions: Chest X-Ray 04/24/19 09:53 IMPRESSION: 1. Since the prior study dated 04/10/2019, development of fairly extensive bilateral perihilar airspace disease, may be on the basis of edema versus infiltrates. 2. Cardiomegaly and pulmonary vascular congestion. Qualifiers - * PATIENT BEING DISCHARGED WITH ANY OF THE FOLLOWING DIAGNOSIS: No Acute Heart Failure Is this a Heart Failure Patient?: No
--- NOTE | 2019-04-26 16:31 | PDOC PROGRESS REPORT ---
Subjective Progress Note for:: 04/26/19 Subjective:: Patient was seen on dialysis today. She was receiving treatment with no complications. Her vitals were stable. SOB had improved since being placed in the hospital. She denies having chest pain. Recent ECHO done showed an EF of 65%. No diastolic dysfunction. Reason For Visit: PULMONARY CONGESTION,SHORTNESS OF BREATH,ESRD Physical Exam Vital Signs: Temp Pulse Resp BP Pulse Ox 98.5 F 88 19 112/55 L 100 04/26/19 15:56 04/26/19 15:56 04/26/19 15:56 04/26/19 15:56 04/26/19 15:56 Intake & Output 04/25/19 04/26/19 04/27/19 06:59 06:59 06:59 Intake Total 320 1761 Output Total 5300 Balance -4980 1761 Weight 111.5 kg 111.5 kg General appearance: PRESENT: no acute distress, well-developed, well-nourished Mouth exam: PRESENT: moist, neck supple Neck exam: ABSENT: JVD, tracheal deviation Respiratory exam: PRESENT: crackles - -bases, rales. ABSENT: clear to auscultation freddy, rhonchi, wheezes Cardiovascular exam: PRESENT: RRR, +S1, +S2 GI/Abdominal exam: PRESENT: soft. ABSENT: tenderness Extremities exam: ABSENT: pedal edema, tenderness, +1 edema, +2 edema Musculoskeletal exam: PRESENT: normal inspection. ABSENT: tenderness Neurological exam: PRESENT: alert, awake, oriented to person, oriented to place, oriented to time, oriented to situation Psychiatric exam: PRESENT: appropriate affect, normal mood Skin exam: PRESENT: dry, intact, warm Results Laboratory Results: 04/26/19 05:53 04/26/19 05:53 04/26/19 04/26/19 05:53 05:53 WBC 8.8 RBC 3.43 L Hgb 9.7 L Hct 29.2 L MCV 85 MCH 28.3 MCHC 33.2 RDW 16.5 H Plt Count 400 Seg Neutrophils % 57.0 Lymphocytes % 26.3 Monocytes % 8.1 Eosinophils % 7.6 H Basophils % 1.0 Absolute Neutrophils 5.0 Absolute Lymphocytes 2.3 Absolute Monocytes 0.7 Absolute Eosinophils 0.7 H Absolute Basophils 0.1 Sodium 138.8 Potassium 4.9 Chloride 94 L Carbon Dioxide 25 Anion Gap 20 H BUN 54 H Creatinine 10.20 H Est GFR ( Amer) 5 L Est GFR (Non-Af Amer) 4 L Glucose 97 Calcium 8.3 L 04/24/19 10:23 Troponin I < 0.012 Impressions: Chest X-Ray 04/24/19 09:53 IMPRESSION: 1. Since the prior study dated 04/10/2019, development of fairly extensive bilateral perihilar airspace disease, may be on the basis of edema versus infiltrates. 2. Cardiomegaly and pulmonary vascular congestion. Assessment & Plan - Diagnosis (1) End stage renal disease on dialysis Is this a current diagnosis for this admission?: Yes Plan: Patient was seen on dialysis. She had no complaints. Stated that SOB had improved. Vitals were stable. Orders and labs were [facility], Kim. At this time patient is stable for discharge and can continue to have fluid removed with dialysis. (2) Pulmonary congestion Plan: improving, will remove more fluid with dialysis today. (3) Shortness of breath Is this a current diagnosis for this admission?: Yes Plan: improving (4) Anemia in chronic kidney disease (CKD) Is this a current diagnosis for this admission?: Yes Plan: receiving procrit with her dialysis treatment
== END 2019-04-26 16:32 | disposition home or self-care (01) ==
LOC: ER 08:55 → EH 12:20 → 5 13:05
PROVIDERS: ADMIT Internal Medicine; ATTEND Internal Medicine
PROC: 5A1D70Z Performance of Urinary Filtration, Intermittent, Less than 6 Hours Per Day (ICD-10-PCS; principal; 2019-04-26)
DX: J81.0 Acute pulmonary edema (principal); E10.22 Type 1 diabetes mellitus with diabetic chronic kidney disease; E10.21 Type 1 diabetes mellitus with diabetic nephropathy; E10.43 Type 1 diabetes mellitus with diabetic autonomic (poly)neuropathy; E10.319 Type 1 diabetes mellitus with unspecified diabetic retinopathy without macular edema; I13.2 Hypertensive heart and chronic kidney disease with heart failure and with stage 5 chronic kidney disease, or end stage renal disease; I50.31 Acute diastolic (congestive) heart failure; N18.6 End stage renal disease; D63.1 Anemia in chronic kidney disease; R91.8 Other nonspecific abnormal finding of lung field; I25.10 Atherosclerotic heart disease of native coronary artery without angina pectoris; R11.0 Nausea; E66.9 Obesity, unspecified; R52 Pain, unspecified; R07.89 Other chest pain; E83.51 Hypocalcemia; Z99.2 Dependence on renal dialysis; Z90.49 Acquired absence of other specified parts of digestive tract; Z79.899 Other long term (current) drug therapy
CPT/HCPCS: 93005; 94640; 99285; 36415 ×2; 82962 ×3; 85025 ×2; 80048; 80053; 84484; 82803; 93306; 71045; 93010; G0378 ×3; J0610; A9270 ×26; J1200; J1644; Q4081 ×2; J2550; G0257; J1815; J3490; J7620

== ENCOUNTER 2019-05-26 12:02 | Emergency (ER) | payer MEDICARE, MEDICAID ==
[2019-05-26 12:29] VITALS: BP 124/60
--- NOTE | 2019-05-26 12:56 | RADIOLOGY REPORT (SQ) ---
EXAM DESCRIPTION: KNEE LEFT 4 VIEW COMPLETED DATE/TIME: 05/26/2019 12:48 pm REASON FOR STUDY: fall yesterday, L knee pain COMPARISON: None. NUMBER OF VIEWS: Four views. TECHNIQUE: AP, lateral, and both oblique radiographic images acquired of the left knee. LIMITATIONS: None. FINDINGS: MINERALIZATION: Normal. BONES: No acute fracture or dislocation. No worrisome bone lesions. JOINT: No effusion. SOFT TISSUES: No soft tissue swelling. No radio-opaque foreign body. OTHER: No other significant finding. IMPRESSION: NEGATIVE STUDY OF THE LEFT KNEE. NO RADIOGRAPHIC EVIDENCE OF ACUTE INJURY. TECHNICAL DOCUMENTATION: JOB ID: [id number] [employer]- All Rights Reserved Reading location - IP/workstation name: [email or web address]
--- NOTE | 2019-05-26 13:17 | ER Document Report ---
HPI - HPI Time Seen by Provider: 05/26/19 12:35 Pain Level: 5 Notes: Patient presents to the emergency department with complaints of left knee pain. Patient states that she fell yesterday and left dialysis early because the knee pain was so great. She denies any other injuries. - REPRODUCTIVE Reproductive: DENIES: : Past Medical History - General Information source: Patient - Social History Smoking Status: Never Smoker Chew tobacco use (# tins/day): No Frequency of alcohol use: Occasional Drug Abuse: None Family History: Reviewed & Not Pertinent Patient has suicidal ideation: No Patient has homicidal ideation: No - Past Medical History Cardiac Medical History: Reports: Hx Congestive Heart Failure, Hx Coronary Clarisse ry Disease, Hx Hypertension, Hx Heart Murmur Pulmonary Medical History: Reports: Hx Asthma, Hx Pneumonia Neurological Medical History: Reports: Hx Migraine, Hx Seizures - only r/t low calcium Endocrine Medical History: Reports: Hx Diabetes Mellitus Type 1, Hx Diabetes Mellitus Type 2 Renal/ Medical History: Reports: Hx End Stage Renal Disease - On hemodialysis MWF, Hx Hemodialysis, Hx Ovarian Cysts. Denies: Hx Peritoneal Dialysis Malignancy Medical History: GI Medical History: Reports: Hx Gastritis Musculoskeletal Medical History: Skin Medical History: Reports Hx Psoriasis Psychiatric Medical History: Reports: Hx Depression Traumatic Medical History: Infectious Medical History: Past Surgical History: Reports: Hx Appendectomy, Hx Cholecystectomy, Hx Vascular Surgery - Lt AV Fistula and graft; Rt AV fistula. Denies: Hx Hysterectomy - Immunizations Immunizations up to date: Yes Hx Diphtheria, Pertussis, Tetanus Vaccination: Yes Hx Pneumococcal Vaccination: 08/22/11 Vertical Provider Document - CONSTITUTIONAL Notes: PHYSICAL EXAMINATION: GENERAL: Well-appearing, well-nourished and in no acute distress. HEAD: Atraumatic, normocephalic. EYES: Pupils equal round extraocular movements intact, conjunctiva are normal. ENT: Nares patent NECK: Normal range of motion LUNGS: No respiratory distress Musculoskeletal: Normal range of motion, anterior left knee, normal motor and sensation distal to area of concern, no erythema or ecchymosis. NEUROLOGICAL: Normal speech, normal gait. PSYCH: Normal mood, normal affect. SKIN: Warm, Dry, normal turgor, no rashes or lesions noted. - INFECTION CONTROL TRAVEL OUTSIDE OF THE [place] IN LAST 30 DAYS: No Course - Re-evaluation Re-evalutation: Xray is negative for any fracture or dislocation. Patient d/c home in stable condition and encouraged to return to her dialysis appointment. - Vital Signs Vital signs: Temp Pulse Resp BP Pulse Ox 98.3 F 82 20 124/60 95 05/26/19 12:27 05/26/19 12:27 05/26/19 12:27 05/26/19 12:05/26/19 12:27 Discharge - Discharge Clinical Impression: bilateral knee contusion Condition: Stable Disposition: HOME, SELF-CARE Additional Instructions: Contusion Your injury has resulted in a contusion -- a crushing of the deep tissues. No injury to important structures was detected during the physician's exam. Contusions vary in the amount of pain they cause, and in the length of time required for healing. Typically, the area will become bruised, and will remain painful to touch for two or three weeks. However, most patients are back to working and playing within a few days. After the initial period of rest and cold-packs, your symptoms (together with the doctor's recommendations) will determine how rapidly you can get back to full activity. Usually this means "do what feels okay, but don't do things that hurt." If re-examination was recommended, it's important to follow up as instructed. Call the doctor or return any time if pain increases, if swelling becomes severe, if you develop numbness or weakness in an injured extremity, or if any other alarming symptoms occur. Ice & Elevation Apply ice packs frequently against the painful area. Many different schedules are recommended, such as "20 minutes on, 20 minutes off" or "one hour ice, two hours rest." If you need to work, you may need to go longer between ice treatments. You should plan to have the area ice packed AT LEAST one-fourth of the time. The ice should be applied over the wrap, tape, or splint, or over a layer of cloth -- not directly against the skin. Some ice bags have a built-in cloth and can be put directly on the skin. Your injured part should be elevated as much as possible over the next 48 hours. Try to keep the injury above the level of the heart. Avoid use of the injured area. Elevation and rest will decrease the swelling. Ibuprofen Ibuprofen is an excellent, safe drug for pain control. In addition, it has potent antiinflammatory effects which are beneficial, especially in the treatment of injuries, arthritis, or tendonitis. It's best to take ibuprofen with food. Persons with ulcer disease or allergy to aspirin should notify their physician of this before taking ibuprofen. Take the medication exactly as prescribed. Don't take additional doses unless instructed to do so by your doctor. If you develop wheezing, shortness of breath, hives, faintness, stomach pain, vomiting, or dark black stools, return for re-evaluation at once. The x-rays were negative for any fracture or dislocation. Ice and elevate as outlined above, take [id number] medications for pain. Referrals: HILARY HERNANDEZ MD [Primary Care Provider] - Follow up as needed
== END 2019-05-26 13:24 | disposition home or self-care (01) ==
LOC: ER 12:02
DX: S80.02XA Contusion of left knee, initial encounter (principal); S80.01XA Contusion of right knee, initial encounter; M25.562 Pain in left knee; W19.XXXA Unspecified fall, initial encounter; I12.0 Hypertensive chronic kidney disease with stage 5 chronic kidney disease or end stage renal disease; N18.6 End stage renal disease; E11.22 Type 2 diabetes mellitus with diabetic chronic kidney disease; Z99.2 Dependence on renal dialysis; J45.909 Unspecified asthma, uncomplicated; I25.10 Atherosclerotic heart disease of native coronary artery without angina pectoris
CPT/HCPCS: 99283

== ENCOUNTER 2019-05-29 04:21 | Inpatient (IN) | payer MEDICARE, MEDICAID ==
[2019-05-29] MEDS ORDERED: HYDRALAZINE HCL INJ/PF 20 MG/1 ML SDV IV ONE (04:37)
--- NOTE | 2019-05-29 04:40 | ER Document Report ---
ED General - General Stated Complaint: DIFFICULTY BREATHING Time Seen by Provider: 05/29/19 04:36 Primary Care Provider: HILARY HERNANDEZ MD [Primary Care Provider] - Follow up as needed Notes: Patient is a 33-year-old female well-known to the ED presents with complaint of difficulty breathing. She is a history of end-stage renal disease and is on dialysis. She does dialysis Wednesday. She denies missing dialysis. She actually had a short session on Wednesday as an extra session to help remove fluid. Tonight she woke up with severe difficulty breathing as well as some chest pain. She is also very hypertensive upon arrival. Patient says that she has been taking her medications. She has no other complaints at this time. TRAVEL OUTSIDE OF THE [place] IN LAST 30 DAYS: No - Related Data Allergies/Adverse Reactions: aspirin [Aspirin] Allergy (Verified 05/26/19 12:22) Anaphylaxis ciprofloxacin [From Cipro] Allergy (Verified 05/26/19 12:22) Anaphylaxis clindamycin [Clindamycin] Allergy (Verified 05/26/19 12:22) hydrocodone [From Vicodin] Allergy (Verified 05/26/19 12:22) ibuprofen [From Motrin] Allergy (Verified 05/26/19 12:22) Anaphylaxis lidocaine [From Lidoderm] Allergy (Verified 05/26/19 12:22) Generalized rash tramadol HCl [From Ultram] Allergy (Verified 05/26/19 12:22) vancomycin [Vancomycin] Allergy (Verified 05/26/19 12:22) Shortness of Breath nitroglycerin [Nitroglycerin] Adverse Reaction (Intermediate, Verified 05/26/19 12:22) Joint pain Past Medical History - Social History Smoking Status: Never Smoker Frequency of alcohol use: None Drug Abuse: None Family History: Reviewed & Not Pertinent - Past Medical History Cardiac Medical History: Reports: Hx Congestive Heart Failure, Hx Coronary Artery Disease, Hx Hypertension, Hx Heart Murmur Pulmonary Medical History: Reports: Hx Asthma, Hx Pneumonia Neurological Medical History: Reports: Hx Migraine, Hx Seizures - only r/t low calcium Endocrine Medical History: Reports: Hx Diabetes Mellitus Type 1, Hx Diabetes Mellitus Type 2 Renal/ Medical History: Reports: Hx End Stage Renal Disease - On hemodialysis MWF, Hx Hemodialysis, Hx Ovarian Cysts. Denies: Hx Peritoneal Dialysis Malignancy Medical History: GI Medical History: Reports: Hx Gastritis Musculoskeletal Medical History: Skin Medical History: Reports Hx Psoriasis Psychiatric Medical History: Reports: Hx Depression Traumatic Medical History: Infectious Medical History: Past Surgical History: Reports: Hx Appendectomy, Hx Cholecystectomy, Hx Vascular Surgery - Lt AV Fistula and graft; Rt AV fistula. Denies: Hx Hysterectomy - Immunizations Immunizations up to date: Yes Hx Diphtheria, Pertussis, Tetanus Vaccination: Yes Hx Pneumococcal Vaccination: 08/22/11 Review of Systems - Review of Systems Notes: My Normal Review Basic REVIEW OF SYSTEMS: CONSTITUTIONAL : Denies fever, chills, or sweats. Denies recent illness. EENT: Denies eye, ear, throat, or mouth pain or symptoms. Denies nasal or sinus congestion. CARDIOVASCULAR: Has chest pain RESPIRATORY: Difficulty breathing. GASTROINTESTINAL: Denies abdominal pain. Denies nausea, vomiting, or diarrhea. MUSCULOSKELETAL: Denies neck or back pain or joint pain or swelling. SKIN: Denies rash or skin lesions. NEUROLOGICAL: Denies altered mental status or loss of consciousness. Denies headache. Denies weakness or paralysis or loss of use of either side. Denies problems with gait or speech. Denies sensory or motor loss. ALL OTHER SYSTEMS REVIEWED AND NEGATIVE. Physical Exam - Vital signs Vitals: Resp 33 H 05/29/19 04:24 - Notes Notes: General Appearance: Well nourished, alert, cooperative, alert acute distress, no obvious discomfort. Vitals: reviewed, See vital signs table. Eyes: PERRL, EOMI, Conjuctiva clear Mouth: No decreasd moisture Throat: No tonsillar inflammation, No airway obstruction, No lymphadenopathy Neck: Supple, no neck tenderness, No thyromegaly Lungs: Tachypnea with rales throughout all lung mckeon Heart: Normal rate, Regular rythm, No murmur, no rub Abdomen: Normal BS, soft, No rigidity, No abdominal tenderness, No guarding, no rebound, no abdominal masses, no organomegaly Extremities: strength 5/5 in all extremities, good pulses in all extremities, fistula right upper extremity. Patient is scarring left upper extremity from h er previous fistula was placed. No edema. Skin: warm, dry, appropriate color, no rash Neuro: speech clear, oriented x 3, normal affect, responds appropriately to questions. Course - Re-evaluation Re-evalutation: 05/29/19 04:39 Patient presents with respiratory distress. Mainly switched her over to her BiPAP. She feels improved with the BiPAP. She has rales in her lung mckeon. Presentation consistent with pulmonary edema. She is hypertensive. She says she is allergic to nitro. I informed her that she would likely help her a lot of her allergies mild. She says the nitro makes her have difficulty breathing and swelling. She says she will Apsley not take nitro. I therefore will have to hold on nitro. I have ordered other medications to try to help bring down her blood pressure. EKG does not show evidence of ST elevation [place]. I have ordered blood work. 05/29/19 05:37 Patient's troponin is negative. Breathing continues be improving with the BiPAP. She is still hypertensive despite the hydralazine. I will place her on a Cardene drip. Blood sugar is very high but she is not DKA and that she does not have a gap acidosis. I will start with subcu insulin. I spoke with Dr. Harman who is covering for Dr. Hernandez. He agrees to accept the patient for admission to the ICU. I did call and speak with her health nursing supervisor instrument maintenance, juanjo, who says we do have dialysis capability for her today. I will put in a consult in the system for Dr. Kwon who is her dock attendant. Dictation of this chart was performed using voice recognition software; therefore, there may be some unintended grammatical errors. - Vital Signs Vital signs: Temp Pulse Resp BP Pulse Ox 27 H 249/217 H 95 05/29/19 04:40 05/29/19 04:40 05/29/19 04:40 - Laboratory Result Diagrams: 05/29/19 04:30 05/29/19 04:30 Laboratory results interpreted by me: 05/29/19 05/29/19 04:30 04:30 WBC 10.7 H RBC 3.52 L Hgb 10.3 L Hct 31.8 L RDW 16.8 H Lymphocytes % 12.0 L Sodium 129.8 L Potassium 6.3 H* Chloride 90 L Carbon Dioxide 21 L BUN 70 H Creatinine 10.60 H Est GFR ( Amer) 5 L Est GFR (Non-Af Amer) 4 L Glucose 838 H* Calcium 6.6 L* Direct Bilirubin 0.5 H ALT 6 L Alkaline Phosphatase 256 H - EKG Interpretation by Me Additional EKG results interpreted by me: 05/29/19 04:39 EKG is reviewed and interpreted by me. EKG shows atrial tachycardia with a rate of [address] segment elevation or depression. Patient does have T wave inversion in lead aVL. OR interval, QRS duration are within normal range. QTc interval is prolonged. Procedures - Additional Procedures IV insertion Additional Procedures: IV insertion Notes: 05/29/19 05:41 Patient is very difficult peripheral IV access. I therefore placed a peripheral IV under ultrasound guidance in the left antecubital region. Clean area with chlorhexidine before inserting 20-gauge Angiocath to the vein in the left antecubital region. Dark venous flow was obtained. Patient tolerated procedure well. Critical Care Note - Critical Care Note Total time excluding time spent on procedures (mins): 35 Comments: Critical care time for the patient not including time spent on procedures is approximately 35 minutes due to management of respiratory distress, management of severe hypertension, management of hyperglycemia. Discharge - Discharge Clinical Impression: ESRD (end stage renal disease) on dialysis, Hyperglycemia, Morbid obesity Pulmonary edema Qualifiers: Chronicity: acute Qualified Code(s): J81.0 - Acute pulmonary edema Hypertension Qualifiers: Hypertension type: unspecified Qualified Code(s): I10 - Essential (primary) hypertension Condition: Serious Disposition: ADMITTED INPATIENT Admitting Provider: Areli Referrals: HILARY HERNANDEZ MD [Primary Care Provider] - Follow up as needed
[2019-05-29 04:48] LABS: ABSOLUTE BASOPHILS # (AUTO) 0.1 10^3/uL (0.0-0.2); ABSOLUTE EOSINOPHILS # (AUTO) 0.6 10^3/uL (0.0-0.6); ABSOLUTE LYMPHOCYTES (AUTO) 1.3 10^3/uL (0.5-4.7); ABSOLUTE MONOCYTES (AUTO) 0.5 10^3/uL (0.1-1.4); ABSOLUTE NEUT (AUTO) 8.2 10^3/uL (1.7-8.2); BASOPHILS % (AUTO) 1.3 % (0-2); EOSINOPHILS % (AUTO) 5.5 % (0-6); HEMATOCRIT 31.8 % (36.0-47.0); HEMOGLOBIN 10.3 g/dL (12.0-15.5); MEAN CORPUSCULAR HEMOGLOBIN 29.3 pg (27.0-33.4); MEAN CORPUSCULAR HGB CONC 32.4 g/dL (32.0-36.0); MEAN CORPUSCULAR VOLUME 90 fl (80-97); MONOCYTES % (AUTO) 4.4 % (3-13); PLATELET COUNT 360 10^3/uL (150-450); RED BLOOD COUNT 3.52 10^6/uL (3.72-5.28); RED CELL DISTRIBUTION WIDTH 16.8 % (11.5-14.0); SEGMENTED NEUTROPHILS % (AUTO) 76.8 % (42-78); TOTAL CELLS COUNTED % (AUTO) 100 %; WHITE BLOOD COUNT 10.7 10^3/uL (4.0-10.5)
[2019-05-29 05:04] LABS: ALANINE AMINOTRANSFERASE 6 U/L (9-52); ALBUMIN 4.4 g/dL (3.5-5.0); ALKALINE PHOSPHATASE 256 U/L (38-126); ANION GAP 19 (5-19); ASPARTATE AMINO TRANSFERASE 17 U/L (14-36); BILIRUBIN,DIRECT 0.5 mg/dL (0.0-0.4); BILIRUBIN,TOTAL 0.5 mg/dL (0.2-1.3); BLOOD UREA NITROGEN 70 mg/dL (7-20); CARBON DIOXIDE 21 mmol/L (22-30); CHLORIDE 90 mmol/L (98-107); SODIUM 129.8 mmol/L (137-145); TOTAL PROTEIN 8.2 g/dL (6.3-8.2)
[2019-05-29] MEDS ORDERED: ONDANSETRON HCL INJ/PF 4 MG/2 ML SDV IV ONE (05:11)
[2019-05-29 05:20] LABS: CALCIUM 6.6 mg/dL (8.4-10.2)
[2019-05-29 05:21] LABS: GLUCOSE 838 mg/dL (75-110); POTASSIUM 6.3 mmol/L (3.6-5.0)
[2019-05-29] MEDS ORDERED: INSULIN REG, HUMAN 100 UNIT/ML 3 ML VIAL (PYX) SUBCUT ONE (05:31)
[2019-05-29] MEDS: NICARDIPINE HCL RTU, ISO-OS 20 MG/200 ML RTUINJ IV PRN ×3 (05:47→10:44)
[2019-05-29] MEDS ORDERED: DEXTROSE 40% GEL 15 GM TUBE X 2 PO PRN (07:30)
[2019-05-29] MEDS ORDERED: GLUCAGON,HUMAN RECOMB 1 MG INJ IM PRN (07:30)
[2019-05-29] MEDS ORDERED: DEXTROSE 40% GEL 15 GM TUBE PO PRN (07:30)
[2019-05-29] MEDS ORDERED: DEXTROSE 50%-WATER SYRINGE 25 GM/50 ML DOSE IV PRN (07:30)
[2019-05-29] MEDS ORDERED: DEXTROSE 50%-WATER SYRINGE 12.5 GM/25 ML DOSE IV PRN (07:30)
--- NOTE | 2019-05-29 08:13 | RADIOLOGY REPORT (SQ) ---
EXAM DESCRIPTION: CHEST SINGLE VIEW COMPLETED DATE/TIME: 05/29/2019 4:43 am REASON FOR STUDY: dyspnea COMPARISON: AP chest 04/24/2019, 04/10/2019, 02/15/2019 EXAM PARAMETERS: NUMBER OF VIEWS: One view. TECHNIQUE: Single frontal radiographic view of the chest acquired. RADIATION DOSE: NA LIMITATIONS: None. FINDINGS: LUNGS AND PLEURA: Dense alveolar consolidation throughout both lungs from alveolar edema. Trace fluid in the right minor fissure. No pneumothorax. MEDIASTINUM AND HILAR STRUCTURES: No masses. Contour normal. HEART AND VASCULAR STRUCTURES: Moderate cardiomegaly BONES: No acute findings. HARDWARE: None in the chest. OTHER: No other significant finding. IMPRESSION: Alveolar pulmonary edema. Trace right pleural effusion TECHNICAL DOCUMENTATION: JOB ID: [id number] [employer] All Rights Reserved Reading location - IP/workstation name: [email or web address]
[2019-05-29] MEDS ORDERED: OXYCODONE-ACETAMINOPHEN 5-325 MG TABLET PO PRN ×2 (09:00→21:52)
[2019-05-29] MEDS: OXYCODONE HCL IR 5 MG TABLET PO PRN (09:21)
[2019-05-29] MEDS ORDERED: HEPARIN SOD (PORCINE) 1,000 UNIT/ML 10 ML VIAL IV PRN ×2 (09:51→13:13)
[2019-05-29] MEDS ORDERED: INSULIN GLARGINE,HUM.REC.ANLOG 1,000 UNIT/10 ML VIAL SUBCUT ONE (10:00)
[2019-05-29] MEDS: INSULIN LISPRO 100 UNIT/ML 3 ML VIAL SUBCUT SCH ×4 (10:41→21:38)
[2019-05-29] MEDS: HEPARIN SOD (PORCINE) 5,000 UNIT/ML 1 ML SYRINGE SUBCUT SCH ×3 (10:43→21:39)
--- NOTE | 2019-05-29 12:54 | PDOC CONSULTATION ---
Consultation Consult Date: 05/29/19 Provider Consulted: ERICA IVY Consult reason:: I was asked to see the patient due to acute fluid overload in a patient with ESRD on hemodialysis. History of Present Illness Admission Date/PCP: 05/29/19 06:08 HILARY HERNANDEZ MD History of Present Illness: ERICH GOODMAN is a 33 year old female known to me with history of ESRD on maintenance hemodialysis on MWF secondary to diabetic nephropathy, diabetes mellitus type 1, hypertension, anemia of chronic kidney disease and noncompliance who came in early this morning in the emergency room because of a cute onset of worsening shortness of breath. Patient had incomplete dialysis treatment on Wednesday and Wednesday because she said she was hurting in her leg after a fall on Wednesday. So she had some dialysis on Wednesday and some dialysis on Wednesday. Her last complete dialysis treatment was last Wednesday. He said she has been short of breath since Wednesday but it has gotten significantly worse early this morning which prompted her to go to the emergency room. In the emergency room she had a severely elevated blood pressure of 219/114, her blood sugar was 830 and she is in overt respiratory distress requiring BiPAP. She was started on Cardene drip for blood pressure control and is currently being given insulin for the blood sugars. Her initial potassium is also 6.3. Patient is subsequently transferred here in ICU. I am currently seeing the patient during initiation of dialysis here in ICU for stat hemodialysis treatment. She is on BiPAP and has facial swelling. She answers questions. Her blood pressure is now lower with a Cardene drip. Her chest x-ray showed an overt acute pulmonary edema worse than previous x-rays. Past Medical History Cardiac Medical History: Reports: Coronary Artery Disease, Heart Murmur, Hypertension-primary Pulmonary Medical History: Reports: Asthma, Pneumonia Neurological Medical History: Reports: Migraine, Seizures - only r/t low calcium Endocrine Medical History: Reports: Diabetes Mellitus Type 1 Complications of Diabetes: Reports: Autonomic Neuropathy, Nephropathy, Retinopathy Renal/ Medical History: Reports: End Stage Renal Disease - On hemodialysis MWF, Hyperkalemia, Hyperphosphatemia, Secondary Hyperparathyroidism Malignancy Medical History: GI Medical History: Musculoskeltal Medical History: Skin Medical History: Reports: Psoriasis Psychiatric Medical History: Reports: Depression Infectious Medical History: Hematology Medical History: Reports Anemia of Chronic Kidney Disease Past Surgical History Past Surgical History: Reports: Appendectomy, Cholecystectomy, Dialysis Access Surgery AVF, Vascular Surgery - Lt AV Fistula and graft; Rt AV fistula Social History Information Source: Patient, [facility] Records Smoking Status: Never Smoker Frequency of Alcohol Use: Occasional Hx Recreational Drug Use: No Drugs: None Hx Prescription Drug Abuse: No - Advance Directive Resuscitation Status: Full Code Family History Family History: No family history of kidney disease. She has an autistic child. Parental Family History Reviewed: Yes Children Family History Reviewed: Yes Sibling(s) Family History Reviewed.: Yes Medication/Allergy Home Medications: Alprazolam [Xanax 0.5 mg Tablet] 0.5 mg PO BIDP PRN MDD 2 MG 04/24/19 Buprenorphine HCl [Belbuca] 450 mcg BC Q12 04/24/19 Insulin Detemir [Levemir] 30 unit SQ BID 04/24/19 Insulin Lispro [Humalog Insulin (Lispro) 100 unit/mL] 0 unit SUBCUT .SLD SCALE 04/24/19 Nifedipine [Nifedipine ER] 60 mg PO Q12 04/24/19 Oxcarbazepine [Trileptal] 300 mg PO Q12 04/24/19 Oxycodone HCl/Acetaminophen [Percocet 7.5-325 mg Tablet] 1 each PO Q6HP PRN 0 04/24/19 Paroxetine HCl [Paxil] 80 mg PO QHS 04/24/19 Sucroferric Oxyhydroxide [Velphoro] 1,000 mg PO .BID SNACKS 05/29/19 Sucroferric Oxyhydroxide [Velphoro] 1,500 mg PO MEALS 05/29/19 Zolpidem Tartrate [Ambien 5 mg Tablet] 10 mg PO HSP PRN 05/29/19 Allergies/Adverse Reactions: aspirin [Aspirin] Allergy (Verified 05/26/19 12:22) Anaphylaxis ciprofloxacin [From Cipro] Allergy (Verified 05/26/19 12:22) Anaphylaxis clindamycin [Clindamycin] Allergy (Verified 05/26/19 12:22) hydrocodone [From Vicodin] Allergy (Verified 05/26/19 12:22) ibuprofen [From Motrin] Allergy (Verified 05/26/19 12:22) Anaphylaxis lidocaine [From Lidoderm] Allergy (Verified 05/26/19 12:22) Generalized rash tramadol HCl [From Ultram] Allergy (Verified 05/26/19 12:22) vancomycin [Vancomycin] Allergy (Verified 05/26/19 12:22) Shortness of Breath nitroglycerin [Nitroglycerin] Adverse Reaction (Intermediate, Verified 05/26/19 12:22) Joint pain Review of Systems All systems: reviewed and no additional remarkable complaints except as stated Review of Systems: Constitutional: ABSENT: chills, fatigue, fever(s), headache(s), weight gain, weight loss Eyes: ABSENT: visual disturbances Ears: ABSENT: hearing changes Cardiovascular: ABSENT: chest pain, orthropnea, palpitations; admits dyspnea at rest and exertion Respiratory: ABSENT: Hemoptysis; admits dry cough Gastrointestinal: ABSENT: abdominal pain, constipation, diarrhea, hematemesis, hematochezia, nausea, vomiting Genitourinary: ABSENT: dysuria, hematuria Musculoskeletal: ABSENT: joint swelling Integumentary: ABSENT: rash, wounds Neurological: ABSENT: abnormal gait, abnormal speech, confusion, dizziness, focal weakness, numbness, syncope Psychiatric: ABSENT: anxiety, depression Endocrine: ABSENT: cold intolerance, heat intolerance, polydipsia, polyuria Hematologic/Lymphatic: ABSENT: easy bleeding, easy bruising, lymphadenopathy Physical Exam Vital Signs: Temp Pulse Resp BP Pulse Ox 99.6 F 92 17 124/81 97 05/29/19 11:38 05/29/19 11:38 05/29/19 12:17 05/29/19 11:38 05/29/19 12:17 Intake & Output 05/28/19 05/29/19 05/30/19 06:59 06:59 06:59 Intake Total 86 349 Balance 86 349 Weight 121.1 kg 120.6 kg Current vitals during initiation of dialysis: Blood pressure of 113/59 , heart rate of 94 and patient currently on BiPAP. Exam: General appearance: Patient in acute respiratory distress requiring BiPAP. Head exam: PRESENT: atraumatic, normocephalic; her face is swollen compared to baseline Eye exam: PRESENT: Conjunctiva [place], EOMI, PERRLA. ABSENT: conjunctival injection, scleral icterus Mouth exam: PRESENT: moist, neck supple, tongue midline Neck exam: PRESENT: full ROM. ABSENT: carotid bruit, JVD, lymphadenopathy, thyromegaly Respiratory exam: PRESENT: Coarse breath sounds diffusely to auscultation bilaterally. ABSENT: rales, rhonchi, stridor, wheezes Cardiovascular exam: PRESENT: RRR, +S1, +S2. Grade 3/6 systolic murmur Pulses: PRESENT: normal radial pulses, normal dorsalis pedis pulses GI/Abdominal exam: PRESENT: normal bowel sounds, soft. ABSENT: guarding, mass, tenderness Rectal exam: Deferred Extremities exam: PRESENT: full ROM. Trace bilateral lower extremity pitting edema ABSENT: calf tenderness Musculoskeletal: PRESENT: full ROM. ABSENT: deformity Neurological exam: PRESENT: alert, Awake, Oriented to person, Oriented to place, Oriented to time, reflexes normal, CN II-XII grossly intact. ABSENT: motor sensory deficit Psychiatric exam: PRESENT: appropriate affect, normal mood. ABSENT: homicidal ideation, suicidal ideation Skin exam: PRESENT: intact, dry, warm. ABSENT: rash Results Laboratory Results: 05/29/19 04:30 05/29/19 09:36 05/29/19 05/29/19 05/29/19 04:30 04:30 09:36 WBC 10.7 H RBC 3.52 L Hgb 10.3 L Hct 31.8 L MCV 90 MCH 29.3 MCHC 32.4 RDW 16.8 H Plt Count 360 Seg Neutrophils % 76.8 Lymphocytes % 12.0 L Monocytes % 4.4 Eosinophils % 5.5 Basophils % 1.3 Absolute Neutrophils 8.2 Absolute Lymphocytes 1.3 Absolute Monocytes 0.5 Absolute Eosinophils 0.6 Absolute Basophils 0.1 Sodium 129.8 L Potassium 6.3 H* Chloride 90 L Carbon Dioxide 21 L Anion Gap 19 BUN 70 H Creatinine 10.60 H Est GFR ( Amer) 5 L Est GFR (Non-Af Amer) 4 L Glucose 838 H* 795 H* Calcium 6.6 L* Total Bilirubin 0.5 AST 17 ALT 6 L Alkaline Phosphatase 256 H Total Protein 8.2 Albumin 4.4 05/29/19 04:30 Troponin I < 0.012 Impressions: Chest X-Ray 05/29/19 04:36 IMPRESSION: Alveolar pulmonary edema. Trace right pleural effusion Assessment & Plan - Diagnosis (1) Acute hypoxemic respiratory failure Is this a current diagnosis for this admission?: Yes Plan: Secondary to acute pulmonary edema requiring BiPAP. (2) Acute pulmonary edema Is this a current diagnosis for this admission?: Yes Plan: Due to incomplete dialysis treatment and acute diastolic congestive heart failure. (3) Acute diastolic (congestive) heart failure Is this a current diagnosis for this admission?: Yes (4) End stage renal disease on dialysis Is this a current diagnosis for this admission?: Yes Plan: Currently initiating acute urgent hemodialysis treatment due to, acute pulmonary edema causing respiratory distress and hyperkalemia. We will do dialysis today for 4 hours, using the patient's AV fistula, with 1K for 2 hours and followed by 2 potassium bath, blood flow rate of 400-450 mL per minute, dialysate flow rate of 800 mL per minute, ultrafiltration 5 to 6 L as tolerated, low-dose heparin and no heparin during his treatment. Dialysis treatment plan discussed with our dialysis nurse. Patient will be monitored throughout dialysis treatment and adjust therapy as necessary. (5) Hypertension Qualifiers: Hypertension type: unspecified Qualified Code(s): I10 - Essential (primary) hypertension Is this a current diagnosis for this admission?: Yes Plan: Patient's blood pressure was initially elevated which is come down with initiation of Cardene drip. Instructed her nurse to taper down the Cardene drip to allow ultrafiltration during dialysis treatment. Cardene drip may also be discontinued depending on her blood pressure. (6) Hyperkalemia Is this a current diagnosis for this admission?: Yes Plan: We will use low potassium bath as above. (7) Hyperglycemia Is this a current diagnosis for this admission?: Yes Plan: Defer management to Dr. Hernandez. (8) Hyponatremia Is this a current diagnosis for this admission?: Yes Plan: Secondary to hypervolemic state. (9) Anemia in chronic kidney disease (CKD) Is this a current diagnosis for this admission?: Yes (10) Diabetes mellitus type 1 Qualifiers: Diabetes mellitus complication status: with unspecified complications Is this a current diagnosis for this admission?: Yes (11) Morbid obesity Is this a current diagnosis for this admission?: Yes - Notes Notes: Thank you very much for this consultation. We will follow the patient with you. - Time Time Spent: Greater than 70 Minutes
[2019-05-29] MEDS ORDERED: CALCIUM GLUCONATE 1,000 MG in DEXTROSE 5%-WATER 50 ML IV ONE (17:02)
[2019-05-29] MEDS ORDERED: CALCIUM GLUCONATE 1000 MG/10 ML INJ IV ONE (17:30)
--- NOTE | 2019-05-29 19:22 | EKG REPORT ---
SEVERITY:- ABNORMAL ECG - ECTOPIC ATRIAL TACHYCARDIA PROBABLE LEFT ATRIAL ABNORMALITY LEFT AXIS DEVIATION LEFT VENTRICULAR HYPERTROPHY PROLONGED QT INTERVAL : Confirmed by: Beatriz Leyva MD 29-May-2019 19:20:48
[2019-05-29] MEDS ORDERED: (PENDING PHARMACY ID) (Oxycodone Hcl/Acetaminophen [Percocet 7.5-325 Mg Tablet] 1 EACH) PO PRN (21:41)
[2019-05-29] MEDS ORDERED: ZOLPIDEM TARTRATE 5 MG TABLET PO PRN (21:41)
[2019-05-29] MEDS ORDERED: ALPRAZOLAM 0.5 MG TABLET PO PRN (21:41)
--- NOTE | 2019-05-29 21:42 | PDOC H&P ---
History of Present Illness Admission Date/PCP: 05/29/19 06:08 HILARY HERNANDEZ MD History of Present Illness: ERICH GOODMAN is a 33 year old female,She has a history of end-stage renal d issergioe on maintenance hemodialysis she came to the emergency room for evaluation of shortness of breath, she was in pulmonary edema blood pressure was elevated at over 200 systolic blood sugar was over 800. In the emergency room she was initially treated with noninvasive positive pressure ventilation subsequently transferred to ICU to initiate hemodialysis. There is a continued problem for this patient she usually present in this fashion with acute pulmonary edema, my understanding is that patient is not getting enough fluid taken out of her body during outpatient hemodialysis then ultimately she gets flash pulmonary edema requiring emergency hemodialysis Past Medical History Cardiac Medical History: Reports: Hypertension, Heart Murmur Pulmonary Medical History: Reports: Asthma, Pneumonia Neurological Medical History: Reports: Migraine, Seizures - only r/t low calcium Endocrine Medical History: Reports: Diabetes Mellitus Type 1 Renal/ Medical History: Reports: End Stage Renal Disease - On hemodialysis MWF Malignancy Medical History: GI Medical History: Musculoskeltal Medical History: Skin Medical History: Reports: Psoriasis Psychiatric Medical History: Reports: Depression Hematology: Reports: Anemia Infectious Medical History: Past Surgical History Past Surgical History: Reports: Appendectomy, Cholecystectomy, Vascular Surgery - Lt AV Fistula and graft; Rt AV fistula Denies: Hysterectomy Social History Smoking Status: Never Smoker Frequency of Alcohol Use: Occasional Hx Recreational Drug Use: No Drugs: None Hx Prescription Drug Abuse: No - Advance Directive Resuscitation Status: Full Code Family History Family History: Reviewed & Not Pertinent Parental Family History Reviewed: Yes Children Family History Reviewed: Yes Sibling(s) Family History Reviewed.: Yes Medication/Allergy Home Medications: Alprazolam [Xanax 0.5 mg Tablet] 0.5 mg PO BIDP PRN MDD 2 MG 04/24/19 Buprenorphine HCl [Belbuca] 450 mcg BC Q12 04/24/19 Insulin Detemir [Levemir] 30 unit SQ BID 04/24/19 Insulin Lispro [Humalog Insulin (Lispro) 100 unit/mL] 0 unit SUBCUT .SLD SCALE 04/24/19 Nifedipine [Nifedipine ER] 60 mg PO Q12 04/24/19 Oxcarbazepine [Trileptal] 300 mg PO Q12 04/24/19 Oxycodone HCl/Acetaminophen [Percocet 7.5-325 mg Tablet] 1 each PO Q6HP PRN 04/24/19 Paroxetine HCl [Paxil] 80 mg PO QHS 04/24/19 Sucroferric Oxyhydroxide [Velphoro] 1,000 mg PO .BID SNACKS 05/29/19 Sucroferric Oxyhydroxide [Velphoro] 1,500 mg PO MEALS 05/29/19 Zolpidem Tartrate [Ambien 5 mg Tablet] 10 mg PO HSP PRN 05/29/19 Allergies/Adverse Reactions: aspirin [Aspirin] Allergy (Verified 05/26/19 12:22) Anaphylaxis ciprofloxacin [From Cipro] Allergy (Verified 05/26/19 12:22) Anaphylaxis clindamycin [Clindamycin] Allergy (Verified 05/26/19 12:22) hydrocodone [From Vicodin] Allergy (Verified 05/26/19 12:22) ibuprofen [From Motrin] Allergy (Verified 05/26/19 12:22) Anaphylaxis lidocaine [From Lidoderm] Allergy (Verified 05/26/19 12:22) Generalized rash tramadol HCl [From Ultram] Allergy (Verified 05/26/19 12:22) vancomycin [Vancomycin] Allergy (Verified 05/26/19 12:22) Shortness of Breath nitroglycerin [Nitroglycerin] Adverse Reaction (Intermediate, Verified 05/26/19 12:22) Joint pain Review of Systems Constitutional: PRESENT: chills, fatigue Eyes: ABSENT: visual disturbances Ears: ABSENT: hearing changes Cardiovascular: PRESENT: dyspnea on exertion, orthropnea Respiratory: PRESENT: cough Gastrointestinal: ABSENT: as per HPI, abdominal pain, bloating, coffee ground emesis, constipation, diarrhea, dysphagia, heartburn, hematemesis, hematochezia, melena, nausea, vomiting, other Genitourinary: ABSENT: dysuria, hematuria Musculoskeletal: ABSENT: joint swelling Integumentary: ABSENT: rash, wounds Neurological: PRESENT: confusion, dizziness Psychiatric: ABSENT: anxiety, depression, homidical ideation, suicidal ideation Endocrine: ABSENT: cold intolerance, heat intolerance, menstrual abnormalities, polydipsia, polyuria Hematologic/Lymphatic: ABSENT: easy bleeding, easy bruising, lymphadenopathy Physical Exam Vital Signs: Temp Pulse Resp BP Pulse Ox 99.6 F 92 15 164/79 H 99 05/29/19 11:38 05/29/19 11:38 05/29/19 20:00 05/29/19 19:59 05/29/19 20:00 Intake & Output 05/28/19 05/29/19 05/30/19 06:59 06:59 06:59 Intake Total 86 409 Output Total 5100 Balance 86 -4671 Weight 121.1 kg 120.6 kg General appearance: PRESENT: mild distress Head exam: PRESENT: atraumatic, normocephalic Eye exam: PRESENT: conjunctiva pink, EOMI, PERRLA Ear exam: PRESENT: normal external ear exam Mouth exam: PRESENT: moist, tongue midline Neck exam: PRESENT: full ROM Respiratory exam: PRESENT: crackles Cardiovascular exam: PRESENT: RRR, +S1, +S2 Vascular exam: PRESENT: normal capillary refill GI/Abdominal exam: PRESENT: normal bowel sounds, soft Rectal exam: PRESENT: deferred Neurological exam: PRESENT: alert, CN II-XII grossly intact Psychiatric exam: PRESENT: appropriate affect, normal mood Skin exam: PRESENT: dry, intact, warm Results Laboratory Results: 05/29/19 04:30 05/29/19 09:36 05/29/19 05/29/19 05/29/19 04:30 04:30 09:36 WBC 10.7 H RBC 3.52 L Hgb 10.3 L Hct 31.8 L MCV 90 MCH 29.3 MCHC 32.4 RDW 16.8 H Plt Count 360 Seg Neutrophils % 76.8 Lymphocytes % 12.0 L Monocytes % 4.4 Eosinophils % 5.5 Basophils % 1.3 Absolute Neutrophils 8.2 Absolute Lymphocytes 1.3 Absolute Monocytes 0.5 Absolute Eosinophils 0.6 Absolute Basophils 0.1 Sodium 129.8 L Potassium 6.3 H* Chloride 90 L Carbon Dioxide 21 L Anion Gap 19 BUN 70 H Creatinine 10.60 H Est GFR ( Amer) 5 L Est GFR (Non-Af Amer) 4 L Glucose 838 H* 795 H* Calcium 6.6 L* Total Bilirubin 0.5 AST 17 ALT 6 L Alkaline Phosphatase 256 H Total Protein 8.2 Albumin 4.4 05/29/19 04:30 Troponin I < 0.012 Impressions: Chest X-Ray 05/29/19 04:36 IMPRESSION: Alveolar pulmonary edema. Trace right pleural effusion Assessment & Plan - Diagnosis (1) Acute pulmonary edema Is this a current diagnosis for this admission?: Yes Plan: Patient needs emergency hemodialysis (2) DM (diabetes mellitus), type 1 with hyperosmolarity Qualifiers: Diabetes mellitus complication detail: without coma Qualified Code(s): E10.69 - Type 1 diabetes mellitus with other specified complication Is this a current diagnosis for this admission?: Yes Plan: Treated with insulin (3) ESRD (end stage renal disease) on dialysis Is this a current diagnosis for this admission?: Yes Plan: Per nephrology
[2019-05-29] MEDS ORDERED: SUCROFERRIC OXYHYDROXIDE 1500 MG PO SCH (21:45)
[2019-05-29] MEDS ORDERED: SUCROFERRIC OXYHYDROXIDE 1000 MG PO SCH (21:45)
[2019-05-29] MEDS ORDERED: INSULIN DETEMIR 30 UNIT SQ SCH (21:45)
[2019-05-29] MEDS ORDERED: OXYCODONE HCL IR 5 MG TABLET PO PRN (21:53)
[2019-05-29] MEDS ORDERED: (PENDING PHARMACY ID) (Oxcarbazepine [Trileptal] 300 MG) PO SCH (22:00)
[2019-05-29] MEDS ORDERED: BUPRENORPHINE HCL 450 MCG BC SCH (22:00)
[2019-05-29] MEDS ORDERED: (PENDING PHARMACY ID) (Nifedipine [Nifedipine Er] 60 MG) PO SCH (22:00)
[2019-05-29] MEDS ORDERED: PAROXETINE PO SCH (22:00)
[2019-05-29] MEDS: PAROXETINE HCL 20 MG TABLET PO SCH (22:42)
[2019-05-29] MEDS: OXCARBAZEPINE 150 MG TABLET PO SCH (22:43)
[2019-05-29] MEDS: NIFEDIPINE 30 MG TAB.ER.24 PO SCH (22:47)
[2019-05-30 04:36] LABS: ANION GAP 16 (5-19); CALCIUM 7.9 mg/dL (8.4-10.2); CARBON DIOXIDE 29 mmol/L (22-30); CHLORIDE 93 mmol/L (98-107); GLUCOSE 224 mg/dL (75-110); PHOSPHORUS 7.7 mg/dL (2.5-4.5); SODIUM 137.7 mmol/L (137-145)
[2019-05-30 05:12] LABS: BLOOD UREA NITROGEN 40 mg/dL (7-20); POTASSIUM 4.2 mmol/L (3.6-5.0)
[2019-05-30] MEDS: HEPARIN SOD (PORCINE) 5,000 UNIT/ML 1 ML SYRINGE SUBCUT SCH ×3 (05:55→22:00)
[2019-05-30] MEDS: INSULIN LISPRO 100 UNIT/ML 3 ML VIAL SUBCUT SCH ×4 (07:50→22:04)
[2019-05-30] MEDS ORDERED: INSULIN GLARGINE,HUM.REC.ANLOG 1,000 UNIT/10 ML VIAL SUBCUT SCH (10:00)
[2019-05-30] MEDS: NIFEDIPINE 30 MG TAB.ER.24 PO SCH ×2 (10:09→22:05)
[2019-05-30] MEDS: OXCARBAZEPINE 150 MG TABLET PO SCH ×2 (10:09→22:05)
[2019-05-30] MEDS: INSULIN GLARGINE,HUM.REC.ANLOG 1,000 UNIT/10 ML VIAL SUBCUT SCH (18:24)
[2019-05-30] MEDS ORDERED: DIPHENHYDRAMINE HCL 50 MG/ML VIAL IV PRN (20:04)
--- NOTE | 2019-05-30 21:26 | PDOC PROGRESS REPORT ---
Subjective Progress Note for:: 05/30/19 Subjective:: Patient seen by the bedside, she looks better today and she feels better Reason For Visit: VOLUME OVERLOAD ESRD Physical Exam Vital Signs: Temp Pulse Resp BP Pulse Ox 97.8 F 94 14 167/99 H 100 05/30/19 19:40 05/30/19 19:40 05/30/19 19:40 05/30/19 19:40 05/30/19 19:40 Intake & Output 05/29/19 05/30/19 05/31/19 06:59 06:59 06:59 Intake Total 86 409 480 Output Total 5100 Balance 86 -3164 480 Weight 121.1 kg 115.9 kg General appearance: PRESENT: no acute distress Eye exam: PRESENT: PERRLA Respiratory exam: PRESENT: clear to auscultation freddy Cardiovascular exam: PRESENT: +S1, +S2 Neurological exam: PRESENT: alert Results Laboratory Results: 05/29/19 04:30 05/30/19 03:50 05/30/19 03:50 Sodium 137.7 Potassium 4.2 D Chloride 93 L Carbon Dioxide 29 Anion Gap 16 BUN 40 H D Creatinine 7.51 H Est GFR ( Amer) 8 L Est GFR (Non-Af Amer) 6 L Glucose 224 H Calcium 7.9 L Phosphorus 7.7 H 05/29/19 04:30 Troponin I < 0.012 Impressions: Chest X-Ray 05/29/19 04:36 IMPRESSION: Alveolar pulmonary edema. Trace right pleural effusion Assessment & Plan - Diagnosis (1) Acute pulmonary edema Is this a current diagnosis for this admission?: Yes (2) DM (diabetes mellitus), type 1 with hyperosmolarity Qualifiers: Diabetes mellitus complication detail: without coma Qualified Code(s): E10.69 - Type 1 diabetes mellitus with other specified complication Is this a current diagnosis for this admission?: Yes (3) ESRD (end stage renal disease) on dialysis Is this a current diagnosis for this admission?: Yes
[2019-05-30] MEDS: PAROXETINE HCL 20 MG TABLET PO SCH (22:05)
[2019-05-31] MEDS ORDERED: HEPARIN SOD (PORCINE) 1,000 UNIT/ML 10 ML VIAL IV PRN (05:00)
[2019-05-31] MEDS: HEPARIN SOD (PORCINE) 5,000 UNIT/ML 1 ML SYRINGE SUBCUT SCH ×3 (05:35→22:12)
[2019-05-31 07:15] LABS: HEMOGLOBIN 9.9 g/dL (12.0-15.5); MEAN CORPUSCULAR HEMOGLOBIN 28.5 pg (27.0-33.4); MEAN CORPUSCULAR HGB CONC 32.9 g/dL (32.0-36.0); MEAN CORPUSCULAR VOLUME 87 fl (80-97); PLATELET COUNT 349 10^3/uL (150-450); RED BLOOD COUNT 3.46 10^6/uL (3.72-5.28); RED CELL DISTRIBUTION WIDTH 16.9 % (11.5-14.0); WHITE BLOOD COUNT 8.3 10^3/uL (4.0-10.5)
[2019-05-31 07:49] LABS: BLOOD UREA NITROGEN 54 mg/dL (7-20); CALCIUM 7.1 mg/dL (8.4-10.2); CARBON DIOXIDE 24 mmol/L (22-30); CHLORIDE 91 mmol/L (98-107); GLUCOSE 216 mg/dL (75-110); POTASSIUM 4.5 mmol/L (3.6-5.0)
[2019-05-31 07:55] LABS: ANION GAP 19 (5-19); SODIUM 134.2 mmol/L (137-145)
[2019-05-31] MEDS: INSULIN LISPRO 100 UNIT/ML 3 ML VIAL SUBCUT SCH ×4 (11:16→22:09)
[2019-05-31] MEDS: NIFEDIPINE 30 MG TAB.ER.24 PO SCH ×2 (13:34→22:08)
[2019-05-31] MEDS: OXCARBAZEPINE 150 MG TABLET PO SCH ×2 (13:34→22:08)
[2019-05-31] MEDS: INSULIN GLARGINE,HUM.REC.ANLOG 1,000 UNIT/10 ML VIAL SUBCUT SCH ×2 (13:35→16:59)
--- NOTE | 2019-05-31 18:24 | PDOC PROGRESS REPORT ---
Subjective Progress Note for:: 05/31/19 Subjective:: I saw the patient during dialysis this morning. Patient is much improved and is currently just using oxygen via nasal cannula. She has been transferred out of the ICU 2 days ago. She has been tolerating dialysis and currently no issues. Reason For Visit: VOLUME OVERLOAD ESRD Physical Exam Vital Signs: Temp Pulse Resp BP Pulse Ox 97.7 F 90 18 145/60 H 100 05/31/19 04:00 05/31/19 07:00 05/31/19 04:00 05/31/19 04:00 05/31/19 04:00 Intake & Output 05/30/19 05/31/19 06/01/19 06:59 06:59 06:59 Intake Total 409 1617 Output Total 5100 Balance -4691 1617 Weight 115.9 kg 118.2 kg Vitals during dialysis: Blood pressure 119/90, heart rate of 103, blood flow rate of 400 mL/min and dialysate flow rate of 800 mL/min. Exam: General appearance: PRESENT: no acute distress, cooperative, well-developed, we ll-nourished Head exam: PRESENT: atraumatic, normocephalic; her face seems less swollen Eye exam: PRESENT: conjunctiva pink, PERRLA. ABSENT: scleral icterus Neck exam: ABSENT: JVD Respiratory exam: PRESENT: Normal breath sounds. ABSENT: crackles, rales, rhonchi, unlabored, wheezes Cardiovascular exam: PRESENT: Regular rate rhythm -+S1, +S2. ABSENT: diastolic murmur, systolic murmur GI/Abdominal exam: PRESENT: normal bowel sounds, soft. ABSENT: guarding, mass, tenderness Extremities exam: Trace bilateral lower extremity pitting edema, improved upper extremity edema Neurological exam: PRESENT: alert, awake, oriented to person, place and time. Skin exam: PRESENT: dry, warm, Results Laboratory Results: 05/31/19 06:23 05/31/19 06:23 05/31/19 05/31/19 06:23 06:23 WBC 8.3 RBC 3.46 L Hgb 9.9 L Hct 30.0 L MCV 87 MCH 28.5 MCHC 32.9 RDW 16.9 H Plt Count 349 Sodium 134.2 L Potassium 4.5 Chloride 91 L Carbon Dioxide 24 Anion Gap 19 BUN 54 H Creatinine 9.57 H Est GFR ( Amer) 6 L Est GFR (Non-Af Amer) 5 L Glucose 216 H Calcium 7.1 L 05/29/19 04:30 Troponin I < 0.012 Impressions: Chest X-Ray 05/29/19 04:36 IMPRESSION: Alveolar pulmonary edema. Trace right pleural effusion Assessment & Plan - Diagnosis (1) End stage renal disease on dialysis Is this a current diagnosis for this admission?: Yes Plan: We did dialysis today for 4 hours, using the patient's AV fistula, with 2 po tassium bath, blood flow rate of 400 mL per minute, dialysate flow rate of 800 mL per minute, ultrafiltration 4 to 5 L, low-dose heparin and no Procrit. Patient was continuously monitored throughout dialysis treatment. She tolerated dialysis well. (2) Acute hypoxemic respiratory failure Is this a current diagnosis for this admission?: Yes (3) Acute pulmonary edema Is this a current diagnosis for this admission?: Yes Plan: Clinically improved after dialysis treatment. (4) Acute diastolic (congestive) heart failure Is this a current diagnosis for this admission?: Yes (5) Hypertension Qualifiers: Hypertension type: unspecified Qualified Code(s): I10 - Essential (primary) hypertension Is this a current diagnosis for this admission?: Yes Plan: Improved with ultrafiltration. (6) Hyperkalemia Is this a current diagnosis for this admission?: Yes Plan: Resolved with dialysis. (7) Hyperglycemia Is this a current diagnosis for this admission?: Yes Plan: Improved but not optimally controlled yet. (8) Hyponatremia Is this a current diagnosis for this admission?: Yes Plan: Improving. (9) Anemia in chronic kidney disease (CKD) Is this a current diagnosis for this admission?: Yes (10) Diabetes mellitus type 1 Qualifiers: Diabetes mellitus complication status: with unspecified complications Is this a current diagnosis for this admission?: Yes (11) Morbid obesity Is this a current diagnosis for this admission?: Yes - Time Time with patient: 15-25 minutes
--- NOTE | 2019-05-31 18:58 | PDOC PROGRESS REPORT ---
Subjective Progress Note for:: 05/31/19 Subjective:: Patient had dialysis today, no new complaints Reason For Visit: VOLUME OVERLOAD ESRD Physical Exam Vital Signs: Temp Pulse Resp BP Pulse Ox 98.4 F 98 16 140/78 H 100 05/31/19 15:46 05/31/19 15:46 05/31/19 15:46 05/31/19 15:46 05/31/19 15:46 Intake & Output 05/30/19 05/31/19 06/01/19 06:59 06:59 06:59 Intake Total 409 1617 240 Output Total 5100 5200 Balance -4667 0639 -3882 Weight 115.9 kg 118.2 kg General appearance: PRESENT: no acute distress Eye exam: PRESENT: PERRLA Respiratory exam: PRESENT: clear to auscultation freddy Cardiovascular exam: PRESENT: +S1, +S2 GI/Abdominal exam: PRESENT: soft Neurological exam: PRESENT: alert Results Laboratory Results: 05/31/19 06:23 05/31/19 06:23 05/31/19 05/31/19 06:23 06:23 WBC 8.3 RBC 3.46 L Hgb 9.9 L Hct 30.0 L MCV 87 MCH 28.5 MCHC 32.9 RDW 16.9 H Plt Count 349 Sodium 134.2 L Potassium 4.5 Chloride 91 L Carbon Dioxide 24 Anion Gap 19 BUN 54 H Creatinine 9.57 H Est GFR ( Amer) 6 L Est GFR (Non-Af Amer) 5 L Glucose 216 H Calcium 7.1 L 05/29/19 04:30 Troponin I < 0.012 Impressions: Chest X-Ray 05/29/19 04:36 IMPRESSION: Alveolar pulmonary edema. Trace right pleural effusion Assessment & Plan - Diagnosis (1) Acute pulmonary edema Is this a current diagnosis for this admission?: Yes (2) DM (diabetes mellitus), type 1 with hyperosmolarity Qualifiers: Diabetes mellitus complication detail: without coma Qualified Code(s): E10.69 - Type 1 diabetes mellitus with other specified complication Is this a current diagnosis for this admission?: Yes (3) ESRD (end stage renal disease) on dialysis Is this a current diagnosis for this admission?: Yes
[2019-05-31] MEDS: PAROXETINE HCL 20 MG TABLET PO SCH (22:08)
[2019-06-01] MEDS: HEPARIN SOD (PORCINE) 5,000 UNIT/ML 1 ML SYRINGE SUBCUT SCH ×2 (06:56→13:05)
[2019-06-01 08:37] LABS: HEPATITS B SURFACE ANTIGEN Negative (Negative)
[2019-06-01] MEDS: INSULIN LISPRO 100 UNIT/ML 3 ML VIAL SUBCUT SCH ×3 (08:53→17:20)
[2019-06-01] MEDS: OXYCODONE HCL IR 5 MG TABLET PO PRN (08:55)
[2019-06-01] MEDS: INSULIN GLARGINE,HUM.REC.ANLOG 1,000 UNIT/10 ML VIAL SUBCUT SCH ×2 (09:02→17:20)
[2019-06-01] MEDS: OXCARBAZEPINE 150 MG TABLET PO SCH (09:02)
[2019-06-01] MEDS: NIFEDIPINE 30 MG TAB.ER.24 PO SCH (09:02)
[2019-06-01 13:10] LABS: HEPATITIS B CORE AB TOT Negative (Negative); HEPATITIS B SURFACE AB QUANT 39.1 mIU/mL (Immunity>9)
[2019-06-01 16:10] VITALS: BP 138/78
--- NOTE | 2019-06-01 18:19 | PDOC DISCHARGE SUMMARY ---
General - Admit/Disc Date/PCP Admission Date/Primary Care Provider: 05/29/19 06:08 HILARY HERNANDEZ MD Discharge Date: 06/01/19 - Discharge Diagnosis (1) Acute pulmonary edema Is this a current diagnosis for this admission?: Yes (2) DM (diabetes mellitus), type 1 with hyperosmolarity Is this a current diagnosis for this admission?: Yes (3) ESRD (end stage renal disease) on dialysis Is this a current diagnosis for this admission?: Yes - Additional Information Resuscitation Status: Full Code Discharge Diet: Cardiac, Diabetic, Other (Comments) Discharge Activity: Activity As Tolerated, Balance Activity w/Rest, Weigh Daily Home Medications: Alprazolam [Xanax 0.5 mg Tablet] 0.5 mg PO BIDP PRN MDD 2 MG 04/24/19 Buprenorphine HCl [Belbuca] 450 mcg BC Q12 04/24/19 Insulin Detemir [Levemir] 30 unit SQ BID 04/24/19 Insulin Lispro [Humalog Insulin (Lispro) 100 unit/mL] 0 unit SUBCUT .SLD SCALE 04/24/19 Nifedipine [Nifedipine ER] 60 mg PO Q12 04/24/19 Oxcarbazepine [Trileptal] 300 mg PO Q12 04/24/19 Oxycodone HCl/Acetaminophen [Percocet 7.5-325 mg Tablet] 1 each PO Q6HP PRN 04/24/19 Paroxetine HCl [Paxil] 80 mg PO QHS 04/24/19 Sucroferric Oxyhydroxide [Velphoro] 1,000 mg PO .BID SNACKS 05/29/19 Sucroferric Oxyhydroxide [Velphoro] 1,500 mg PO MEALS 05/29/19 Zolpidem Tartrate [Ambien 5 mg Tablet] 10 mg PO HSP PRN 05/29/19 History of Present Illness History of Present Illness: ERICH GOODMAN is a 33 year old female,She has a history of end-stage renal disease on maintenance hemodialysis she came to the emergency room for evaluation of shortness of breath, she was in pulmonary edema blood pressure was elevated at over 200 systolic blood sugar was over 800. In the emergency room she was initially treated with noninvasive positive pressure ventilation subsequently transferred to ICU to initiate hemodialysis. There is a continued problem for this patient she usually present in this fashion with acute pulmonary edema, my understanding is that patient is not getting enough fluid taken out of her body during outpatient hemodialysis then ultimately she gets flash pulmonary edema requiring emergency hemodialysis Hospital Course Hospital Course: She was admitted for the management of volume overload secondary to inadequate dialysis due to end-stage renal disease, she was treated with hemodialysis, she was seen by nephrology. She also had hyperosmolar state due to poorly controlled diabetes. Patient is improved significantly I saw today on the floor she wants to go home Physical Exam Vital Signs: Temp Pulse Resp BP Pulse Ox 98.7 F 104 H 16 138/78 H 100 06/01/19 15:27 06/01/19 15:27 06/01/19 15:27 06/01/19 15:27 06/01/19 15:27 Intake & Output 05/31/19 06/01/19 06/02/19 06:59 06:59 06:59 Intake Total 1617 1678 626 Output Total 5200 Balance 1617 -3522 626 Weight 118.2 kg 119.3 kg General appearance: PRESENT: no acute distress Head exam: PRESENT: atraumatic, normocephalic Eye exam: PRESENT: conjunctiva pink, EOMI, PERRLA Ear exam: PRESENT: normal external ear exam Mouth exam: PRESENT: moist, tongue midline Neck exam: PRESENT: full ROM Respiratory exam: PRESENT: clear to auscultation freddy Cardiovascular exam: PRESENT: RRR, +S1, +S2 Pulses: PRESENT: normal dorsalis pedis pul, +2 pedal pulses bilateral Vascular exam: PRESENT: normal capillary refill GI/Abdominal exam: PRESENT: normal bowel sounds, soft Rectal exam: PRESENT: deferred Neurological exam: PRESENT: alert, awake, oriented to person, oriented to place, oriented to time, oriented to situation, CN II-XII grossly intact Psychiatric exam: PRESENT: appropriate affect, normal mood Skin exam: PRESENT: dry, intact, warm Results Laboratory Results: 05/31/19 06:23 05/31/19 06:23 05/29/19 04:30 Troponin I < 0.012 Impressions: Chest X-Ray 05/29/19 04:36 IMPRESSION: Alveolar pulmonary edema. Trace right pleural effusion Qualifiers - * PATIENT BEING DISCHARGED WITH ANY OF THE FOLLOWING DIAGNOSIS: No VTE patient discharged on overlapping Therapy?: No Reason(s) for not prescribing Overlap Therapy:: Not indicated Stroke Pt being discharged on Anti-thrombolytic therapy?: No Reason(s) for not prescribing Anti-thrombolytic therapy:: Not indicated Stroke Pt being discharged on Anti-coagulation therapy?: No Reason(s) for not prescribing Anti-coagulation therapy:: Not indicated Stroke Pt being discharged on Statins?: No Reason(s) for not prescribing Statins therapy:: Not indicated TX Pt being discharged on Aspirin therapy?: No Reason(s) for not prescribing Aspirin therapy:: Not indicated TX Pt being discharged on Statins?: No Reason(s) for not prescribing Statin therapy:: Not indicated TX Pt discharged ACEI/ARBS?: No Reason(s) for not prescribing ACEI/ARBS:: Not indicated Acute Heart Failure - Is this a Heart Failure Patient?: No e) For LVEF <35%, discharged on Aldosterone antagonist?: N/A (LVEF > or = 35%)
== END 2019-06-01 19:17 | disposition home or self-care (01) | DRG 291 ==
LOC: ER 04:21 → EH 06:08 → ICU 11:17 → 4W 05-30 04:58 → 5 05-31 12:57
PROVIDERS: ADMIT Internal Medicine; ATTEND Internal Medicine
PROC: 5A1D70Z Performance of Urinary Filtration, Intermittent, Less than 6 Hours Per Day (ICD-10-PCS; principal; 2019-05-29)
DX: I13.2 Hypertensive heart and chronic kidney disease with heart failure and with stage 5 chronic kidney disease, or end stage renal disease (principal); N18.6 End stage renal disease; I50.31 Acute diastolic (congestive) heart failure; J96.01 Acute respiratory failure with hypoxia; N25.81 Secondary hyperparathyroidism of renal origin; E87.1 Hypo-osmolality and hyponatremia; Z68.41 Body mass index [BMI] 40.0-44.9, adult; E10.22 Type 1 diabetes mellitus with diabetic chronic kidney disease; E10.65 Type 1 diabetes mellitus with hyperglycemia; D63.1 Anemia in chronic kidney disease; E87.5 Hyperkalemia; E83.39 Other disorders of phosphorus metabolism; I25.10 Atherosclerotic heart disease of native coronary artery without angina pectoris; E66.01 Morbid (severe) obesity due to excess calories; Z99.2 Dependence on renal dialysis; Z91.19 Patient's noncompliance with other medical treatment and regimen; Z79.4 Long term (current) use of insulin; Z79.899 Other long term (current) drug therapy
CPT/HCPCS: 36415; 71045; 80048; 82947; 82962; 83036; 84100; 84484; 85025; 85027; 86317; 86704; 87340; 93005; 93010; 94660; 99291; J0360; J0610; J1200; J1644; J1815; J2405; J3490

== ENCOUNTER 2019-06-09 08:37 | Emergency (ER) | payer MEDICARE, MEDICAID ==
--- NOTE | 2019-06-09 09:25 | ER Document Report ---
ED Respiratory Problem - General Chief Complaint: Breathing Difficulty Stated Complaint: SHORTNESS OF BREATH Time Seen by Provider: 06/09/19 09:10 Primary Care Provider: HILARY HERNANDEZ MD [Primary Care Provider] - Follow up as needed Mode of Arrival: Medic Information source: Patient TRAVEL OUTSIDE OF THE [place] IN LAST 30 DAYS: No - HPI Patient complains to provider of: No: Short of breath - pt. is ESRD pt. with HD q M/W/F who is scheduled for HD later this am. She developed some SOB this am and her mother called EMS to have her transported here for evaluation. - Related Data Allergies/Adverse Reactions: aspirin [Aspirin] Allergy (Verified 05/26/19 12:22) Anaphylaxis ciprofloxacin [From Cipro] Allergy (Verified 05/26/19 12:22) Anaphylaxis clindamycin [Clindamycin] Allergy (Verified 05/26/19 12:22) hydrocodone [From Vicodin] Allergy (Verified 05/26/19 12:22) ibuprofen [From Motrin] Allergy (Verified 05/26/19 12:22) Anaphylaxis lidocaine [From Lidoderm] Allergy (Verified 05/26/19 12:22) Generalized rash tramadol HCl [From Ultram] Allergy (Verified 05/26/19 12:22) vancomycin [Vancomycin] Allergy (Verified 05/26/19 12:22) Shortness of Breath nitroglycerin [Nitroglycerin] Adverse Reaction (Intermediate, Verified 05/26/19 12:22) Joint pain Past Medical History - Social History Smoking Status: Never Smoker Family History: Reviewed & Not Pertinent Patient has suicidal ideation: No Patient has homicidal ideation: No - Past Medical History Cardiac Medical History: Reports: Hx Congestive Heart Failure, Hx Coronary Artery Disease, Hx Hypertension, Hx Heart Murmur Pulmonary Medical History: Reports: Hx Asthma, Hx Pneumonia Neurological Medical History: Reports: Hx Migraine, Hx Seizures - only r/t low calcium Endocrine Medical History: Reports: Hx Diabetes Mellitus Type 1, Hx Diabetes Mellitus Type 2 Renal/ Medical History: Reports: Hx End Stage Renal Disease - On hemodialysis MWF, Hx Hemodialysis, Hx Ovarian Cysts. Denies: Hx Peritoneal Dialysis Malignancy Medical History: GI Medical History: Reports: Hx Gastritis Musculoskeletal Medical History: Skin Medical History: Reports Hx Psoriasis Psychiatric Medical History: Reports: Hx Depression Traumatic Medical History: Infectious Medical History: Past Surgical History: Reports: Hx Appendectomy, Hx Cholecystectomy, Hx Vascular Surgery - Lt AV Fistula and graft; Rt AV fistula. Denies: Hx Hysterectomy - Immunizations Immunizations up to date: Yes Hx Diphtheria, Pertussis, Tetanus Vaccination: Yes Hx Pneumococcal Vaccination: 08/22/11 Review of Systems - Review of Systems Constitutional: No symptoms reported EENT: No symptoms reported Cardiovascular: No symptoms reported Respiratory: See HPI, Short of breath Gastrointestinal: No symptoms reported Musculoskeletal: No symptoms reported -: Yes All other systems reviewed and negative Physical Exam - Vital signs Vitals: Resp Pulse Ox 26 H 100 06/09/19 08:40 06/09/19 08:40 - General General appearance: Appears well In distress: Mild - pt. on bipap -- can speak in complete sentences - HEENT Pharynx: Normal Neck: Normal - Respiratory Respiratory status: Respiratory distress - mild-moderate Chest status: Nontender Breath sounds: Rales - bilateral basilar rales - Cardiovascular Rhythm: Regular Heart sounds: Normal auscultation Murmur: No - Abdominal Inspection: Normal Tenderness: Nontender - Extremities General lower extremity: Edema - 2+ bilateral Course - Re-evaluation Re-evalutation: 06/09/19 09:38 Pt's exam unchanged -- will call transport to take opt to [facility] - Vital Signs Vital signs: Temp Pulse Resp BP Pulse Ox 26 H 100 06/09/19 08:40 06/09/19 08:40 - Diagnostic Test Radiology reviewed: Image reviewed - CHF - EKG Interpretation by Me EKG shows normal: Sinus rhythm Rate: Normal Rhythm: NSR - nsr with LAD and LVH without acute change - Consults zabrina RN at [facility] Time consulted: 09:32 - they will hold her spot for HD this am. I told her we will gete her there Discharge - Discharge Clinical Impression: ESRD (end stage renal disease) on dialysis CHF (congestive heart failure) Qualifiers: Heart failure type: unspecified Heart failure chronicity: unspecified Qualified Code(s): I50.9 - Heart failure, unspecified Condition: Stable Disposition: [facility] Additional Instructions: ambulance transport directly to [facility] for HD Referrals: HILARY HERNANDEZ MD [Primary Care Provider] - Follow up as needed
--- NOTE | 2019-06-09 09:49 | RADIOLOGY REPORT (SQ) ---
EXAM DESCRIPTION: CHEST SINGLE VIEW COMPLETED DATE/TIME: 06/09/2019 9:34 am REASON FOR STUDY: SOB COMPARISON: Chest films [id number], 04/10/2019, 02/13/2019 EXAM PARAMETERS: NUMBER OF VIEWS: One view. TECHNIQUE: Single frontal radiographic view of the chest acquired. RADIATION DOSE: NA LIMITATIONS: None. FINDINGS: LUNGS AND PLEURA: Diffuse bilateral alveolar edema is present. No pneumothorax. No pleural effusions. MEDIASTINUM AND HILAR STRUCTURES: No masses. Contour normal. HEART AND VASCULAR STRUCTURES: Massive cardiomegaly unchanged BONES: No acute findings. HARDWARE: Multiple right-sided vascular stents for maintenance of dialysis access OTHER: No other significant finding. IMPRESSION: Diffuse bilateral pulmonary edema TECHNICAL DOCUMENTATION: JOB ID: [id number] [employer]- All Rights Reserved Reading location - IP/workstation name: [email or web address]
[2019-06-09 09:56] VITALS: BP 166/89
--- NOTE | 2019-06-09 13:41 | EKG REPORT ---
SEVERITY:- ABNORMAL ECG - SINUS RHYTHM FIRST DEGREE AV BLOCK PROBABLE LEFT ATRIAL ABNORMALITY LEFT AXIS DEVIATION LAFB. LEFT VENTRICULAR HYPERTROPHY PROLONGED QT INTERVAL : Confirmed by: Ciro Beckford MD 09-Jun-2019 13:40:44
== END 2019-06-09 09:56 | disposition home health service (06) ==
LOC: ER 08:37
DX: I13.2 Hypertensive heart and chronic kidney disease with heart failure and with stage 5 chronic kidney disease, or end stage renal disease (principal); I50.9 Heart failure, unspecified; N18.6 End stage renal disease; E11.22 Type 2 diabetes mellitus with diabetic chronic kidney disease; Z99.2 Dependence on renal dialysis; J45.909 Unspecified asthma, uncomplicated; R06.02 Shortness of breath; I25.10 Atherosclerotic heart disease of native coronary artery without angina pectoris; Z87.892 Personal history of anaphylaxis; Z88.8 Allergy status to other drugs, medicaments and biological substances; Z88.1 Allergy status to other antibiotic agents; Z88.5 Allergy status to narcotic agent; Z88.4 Allergy status to anesthetic agent
CPT/HCPCS: 71045; 93005; 93010; 94660; 99285

== ENCOUNTER 2019-06-16 11:12 | Inpatient (IN) | payer MEDICARE, MEDICAID ==
[2019-06-16] MEDS ORDERED: ONDANSETRON HCL INJ/PF 4 MG/2 ML SDV IV ONE (11:27)
[2019-06-16] MEDS ORDERED: PROMETHAZINE HCL INJ 50 MG/1 ML VIAL IM ONE (11:45)
[2019-06-16 11:59] LABS: ABSOLUTE BASOPHILS # (AUTO) 0.1 10^3/uL (0.0-0.2); ABSOLUTE EOSINOPHILS # (AUTO) 0.3 10^3/uL (0.0-0.6); ABSOLUTE LYMPHOCYTES (AUTO) 1.3 10^3/uL (0.5-4.7); ABSOLUTE MONOCYTES (AUTO) 0.7 10^3/uL (0.1-1.4); ABSOLUTE NEUT (AUTO) 10.5 10^3/uL (1.7-8.2); BASOPHILS % (AUTO) 0.8 % (0-2); EOSINOPHILS % (AUTO) 2.5 % (0-6); HEMATOCRIT 29.6 % (36.0-47.0); HEMOGLOBIN 9.6 g/dL (12.0-15.5); LYMPHOCYTES % (AUTO) 9.8 % (13-45); MEAN CORPUSCULAR HGB CONC 32.5 g/dL (32.0-36.0); MEAN CORPUSCULAR VOLUME 86 fl (80-97); MONOCYTES % (AUTO) 5.3 % (3-13); PLATELET COUNT 353 10^3/uL (150-450); RED BLOOD COUNT 3.45 10^6/uL (3.72-5.28); RED CELL DISTRIBUTION WIDTH 15.5 % (11.5-14.0); SEGMENTED NEUTROPHILS % (AUTO) 81.6 % (42-78); TOTAL CELLS COUNTED % (AUTO) 100 %; WHITE BLOOD COUNT 12.8 10^3/uL (4.0-10.5)
--- NOTE | 2019-06-16 12:00 | ER Document Report ---
ED General - General Stated Complaint: BLOOD SUGAR ISSUES Time Seen by Provider: 06/16/19 11:27 Primary Care Provider: HILARY HERNANDEZ MD [Primary Care Provider] - Follow up as needed TRAVEL OUTSIDE OF THE [place] IN LAST 30 DAYS: No - HPI Notes: Patient is a 34-year-old female with a history of insulin-dependent diabetes, CHF, end-stage renal disease and on dialysis every Wednesday/Wednesday/Wednesday, hy pertension, obesity who presents complaining of fatigue, generalized abdominal aching, nausea, mild headache, and sore throat that began this morning. Patient states that her sugars have been running high on the meter. Patient states that she is not been admitted for DKA or HHS in the past. Patient states that she does not produce any urine. She did partake in dialysis today, but only had a partial session which they withdrew 4.8 L. 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 Denies any fever, neck pain, changes in vision/speech/mentation/hearing, URI, chest pain, palpitations, syncope, cough, shortness of breath, wheeze, dyspnea, vomiting/diarrhea, or rash. - Related Data Allergies/Adverse Reactions: aspirin [Aspirin] Allergy (Verified 05/26/19 12:22) Anaphylaxis ciprofloxacin [From Cipro] Allergy (Verified 05/26/19 12:22) Anaphylaxis clindamycin [Clindamycin] Allergy (Verified 05/26/19 12:22) hydrocodone [From Vicodin] Allergy (Verified 05/26/19 12:22) ibuprofen [From Motrin] Allergy (Verified 05/26/19 12:22) Anaphylaxis lidocaine [From Lidoderm] Allergy (Verified 05/26/19 12:22) Generalized rash tramadol HCl [From Ultram] Allergy (Verified 05/26/19 12:22) vancomycin [Vancomycin] Allergy (Verified 05/26/19 12:22) Shortness of Breath nitroglycerin [Nitroglycerin] Adverse Reaction (Intermediate, Verified 05/26/19 12:22) Joint pain Past Medical History - Social History Smoking Status: Unknown if Ever Smoked Family History: Reviewed & Not Pertinent - Past Medical History Cardiac Medical History: Reports: Hx Congestive Heart Failure, Hx Coronary Artery Disease, Hx Hypertension, Hx Heart Murmur Pulmonary Medical History: Reports: Hx Asthma, Hx Pneumonia Neurological Medical History: Reports: Hx Migraine, Hx Seizures - only r/t low calcium Endocrine Medical History: Reports: Hx Diabetes Mellitus Type 1, Hx Diabetes Me llitus Type 2 Renal/ Medical History: Reports: Hx End Stage Renal Disease - On hemodialysis MWF, Hx Hemodialysis, Hx Ovarian Cysts. Denies: Hx Peritoneal Dialysis Malignancy Medical History: GI Medical History: Reports: Hx Gastritis Musculoskeletal Medical History: Skin Medical History: Reports Hx Psoriasis Psychiatric Medical History: Reports: Hx Depression Traumatic Medical History: Infectious Medical History: Past Surgical History: Reports: Hx Appendectomy, Hx Cholecystectomy, Hx Vascular Surgery - Lt AV Fistula and graft; Rt AV fistula. Denies: Hx Hysterectomy - Immunizations Immunizations up to date: Yes Hx Diphtheria, Pertussis, Tetanus Vaccination: Yes Hx Pneumococcal Vaccination: 08/22/11 Review of Systems - Review of Systems -: Yes All other systems reviewed and negative Physical Exam - Notes Notes: PHYSICAL EXAMINATION: GENERAL: Well-appearing, well-nourished and in no acute distress. HEAD: Atraumatic, normocephalic. EYES: Pupils equal round and reactive to light, extraocular movements intact, sclera anicteric, conjunctiva are normal. ENT: EAC clear b/l. TM's intact b/l without erythema, fluid, or perforation. Nares patent and without discharge. oropharynx clear without exudates. No tonsilar hypertrophy or erythema. Moist mucous membranes. No sinus tenderness. NECK: Normal range of motion, supple without lymphadenopathy LUNGS: Breath sounds clear to auscultation bilaterally and equal. No wheezes ra les or rhonchi. HEART: Regular rate and rhythm without murmurs, rubs, gallops. ABDOMEN: Soft, nontender, nondistended abdomen. No guarding, no rebound. No masses appreciated. Normal bowel sounds present. No CVA tenderness bilaterally. Musculoskeletal: FROM to passive/active. Strength 5+/5. Extremities: No cyanosis, clubbing, or edema b/l. Peripheral pulses 2+. Capillary refill less than 3 seconds. NEUROLOGICAL: Cranial nerves grossly intact. Normal speech, normal gait. Normal sensory, motor exams PSYCH: Normal mood, normal affect. SKIN: Warm, Dry, normal turgor, no rashes or lesions noted. Course - Re-evaluation Re-evalutation: 06/16/19 12:58 Patient has hyperkalemia with mild peaked T waves on EKG as well as hyperglycemia greater than 600. Patient is showing an anion gap of 20 although her VBG is currently within normal limits. She does have hyponatremia as well. Vitals currently acceptable otherwise. I spoke with Dr. Hernandez who wants me to speak with Dr. Kwon as she needs dialysis. We will hold on insulin until admission and Dr. Hernandez will put insulin orders in at that time if he deems necessary. Page sent to Dr. Kwon. 06/16/19 13:31 2nd page sent to Dr. Kwon. 06/16/19 13:[address] Kwon who will send a nurse to perform dialysis here in the ED. 06/16/19 13:[address] Hernandez who has accepted pt for admit to [facility] and will place orders thereafter. - Laboratory Result Diagrams: 06/16/19 11:39 06/16/19 11:39 Laboratory results interpreted by me: 06/16/19 06/16/19 11:39 11:39 WBC 12.8 H RBC 3.45 L Hgb 9.6 L Hct 29.6 L RDW 15.5 H Seg Neutrophils % 81.6 H Lymphocytes % 9.8 L Absolute Neutrophils 10.5 H Sodium 129.4 L Potassium 6.3 H* Chloride 86 L Anion Gap 20 H BUN 53 H Creatinine 7.41 H Est GFR ( Amer) 8 L Est GFR (Non-Af Amer) 6 L Glucose > 625 H* Calcium 8.0 L Direct Bilirubin 0.6 H Alkaline Phosphatase 246 H Total Protein 8.6 H Lipase 646.6 H Critical Care Note - Critical Care Note Total time excluding time spent on procedures (mins): 36 Comments: consulting and pt management time of at least 36 minutes. Discharge - Discharge Clinical Impression: Hyperkalemia, ESRD (end stage renal disease) on dialysis, Elevated glucose Condition: Stable Disposition: ADMITTED INPATIENT Admitting Provider: Areli Unit Admitted: [facility] Referrals: HILARY HERNANDEZ MD [Primary Care Provider] - Follow up as needed
[2019-06-16 12:06] LABS: VENOUS BLOOD BASE EXCESS -1.3 mmol/L; VENOUS BLOOD HCO3 23.6 mmol/L (20-32); VENOUS BLOOD PCO2 39.8 mmHg (35-63); VENOUS BLOOD PH 7.39 (7.30-7.42)
[2019-06-16 12:09] LABS: ALANINE AMINOTRANSFERASE 17 U/L (9-52); ALBUMIN 4.7 g/dL (3.5-5.0); ALKALINE PHOSPHATASE 246 U/L (38-126); ASPARTATE AMINO TRANSFERASE 27 U/L (14-36); BILIRUBIN,DIRECT 0.6 mg/dL (0.0-0.4); BILIRUBIN,TOTAL 0.7 mg/dL (0.2-1.3); BLOOD UREA NITROGEN 53 mg/dL (7-20); CARBON DIOXIDE 23 mmol/L (22-30); CHLORIDE 86 mmol/L (98-107); TOTAL PROTEIN 8.6 g/dL (6.3-8.2)
[2019-06-16 12:42] LABS: GLUCOSE > 625 mg/dL (75-110)
[2019-06-16 12:43] LABS: ANION GAP 20 (5-19); POTASSIUM 6.3 mmol/L (3.6-5.0)
[2019-06-16] MEDS ORDERED: DEXTROSE 50%-WATER 25 GM/50 ML DISP.SYRIN IV PRN ×4 (12:51→17:30)
[2019-06-16] MEDS ORDERED: GLUCAGON,HUMAN RECOMB 1 MG INJ IM PRN ×2 (12:51→17:30)
[2019-06-16] MEDS ORDERED: DEXTROSE 40% GEL 15 GM TUBE PO PRN ×4 (12:51→17:30)
[2019-06-16] MEDS ORDERED: NORMAL SALINE 100 ML with INSULIN REGULAR, HUMAN 100 UNIT IV PRN ×2 (12:51)
[2019-06-16] MEDS ORDERED: INSULIN REG, HUMAN 100 UNIT/ML 3 ML VIAL (PYX) IV ONE (12:53)
[2019-06-16] MEDS ORDERED: EPOETIN ALFA-EPBX 10,000 UNIT/ML VIAL (RENAL) IV PRN (16:39)
[2019-06-16] MEDS ORDERED: ZOLPIDEM TARTRATE 5 MG TABLET PO PRN (17:30)
[2019-06-16] MEDS ORDERED: HEPARIN SOD (PORCINE) 1,000 UNIT/ML 10 ML VIAL IV PRN (17:30)
[2019-06-16] MEDS ORDERED: (PENDING PHARMACY ID) (Oxycodone Hcl/Acetaminophen [Percocet 7.5-325 Mg Tablet] 1 EACH) PO PRN (17:30)
[2019-06-16] MEDS ORDERED: SUCROFERRIC OXYHYDROXIDE 1000 MG PO SCH (17:30)
[2019-06-16] MEDS ORDERED: BUPRENORPHINE HCL 450 MCG BC SCH (17:45)
[2019-06-16] MEDS ORDERED: SUCROFERRIC OXYHYDROXIDE 1500 MG PO SCH (17:45)
[2019-06-16] MEDS ORDERED: (PENDING PHARMACY ID) (Carvedilol [Coreg 25 Mg Tablet] 1 TAB) PO SCH (17:45)
[2019-06-16] MEDS ORDERED: (PENDING PHARMACY ID) (Nifedipine [Nifedipine Er] 60 MG) PO SCH (17:45)
[2019-06-16] MEDS ORDERED: (PENDING PHARMACY ID) (Oxcarbazepine [Trileptal] 300 MG) PO SCH (17:45)
[2019-06-16] MEDS ORDERED: INSULIN DETEMIR 30 UNIT SQ SCH (18:00)
[2019-06-16] MEDS ORDERED: DIPHENHYDRAMINE HCL 50 MG/ML VIAL IV ONE (18:00)
[2019-06-16 18:49] LABS: FREE T4 (FREE THYROXINE) 0.89 ng/dL (0.78-2.19)
[2019-06-16 19:03] LABS: THYROID STIMULATING HORMONE 1.31 uIU/mL (0.47-4.68)
[2019-06-16 19:54] LABS: INTERNATIONAL RATION (INR) 1.05; PROTHROMBIN TIME 13.7 SEC (11.4-15.4)
[2019-06-16 19:55] LABS: PARTIAL THROMBOPLASTIN TIME 35.7 SEC (23.5-35.8)
[2019-06-16] MEDS: HEPARIN SOD (PORCINE) 5,000 UNIT/ML 1 ML VIAL SUBCUT SCH (21:10)
[2019-06-16] MEDS: PAROXETINE HCL 20 MG TABLET PO SCH (21:12)
[2019-06-16] MEDS: NIFEDIPINE 30 MG TAB.ER.24 PO SCH (21:13)
[2019-06-16] MEDS: OXCARBAZEPINE 150 MG TABLET PO SCH (21:13)
[2019-06-16] MEDS: CLONIDINE HCL 0.1 MG TABLET PO SCH ×2 (21:13→21:15)
[2019-06-16] MEDS: CARVEDILOL 12.5 MG TABLET PO SCH (21:19)
[2019-06-16] MEDS ORDERED: PAROXETINE PO SCH (22:00)
[2019-06-16] MEDS: INSULIN LISPRO 100 UNIT/ML 3 ML VIAL SUBCUT SCH ×2 (22:36→22:37)
[2019-06-16] MEDS: INSULIN GLARGINE,HUM.REC.ANLOG 1,000 UNIT/10 ML VIAL SUBCUT SCH (22:37)
--- NOTE | 2019-06-16 23:07 | EKG REPORT ---
SEVERITY:- ABNORMAL ECG - SINUS RHYTHM PROBABLE LEFT ATRIAL ABNORMALITY PROBABLE LEFT VENTRICULAR HYPERTROPHY PROLONGED QT INTERVAL : Confirmed by: Daniela Lemons 16-Jun-2019 23:07:05
[2019-06-17 06:11] LABS: ABSOLUTE BASOPHILS # (AUTO) 0.1 10^3/uL (0.0-0.2); ABSOLUTE EOSINOPHILS # (AUTO) 0.7 10^3/uL (0.0-0.6); ABSOLUTE LYMPHOCYTES (AUTO) 2.6 10^3/uL (0.5-4.7); ABSOLUTE MONOCYTES (AUTO) 0.8 10^3/uL (0.1-1.4); EOSINOPHILS % (AUTO) 7.5 % (0-6); HEMATOCRIT 30.4 % (36.0-47.0); LYMPHOCYTES % (AUTO) 28.4 % (13-45); MEAN CORPUSCULAR HEMOGLOBIN 28.2 pg (27.0-33.4); MEAN CORPUSCULAR HGB CONC 32.9 g/dL (32.0-36.0); MEAN CORPUSCULAR VOLUME 86 fl (80-97); MONOCYTES % (AUTO) 8.5 % (3-13); PLATELET COUNT 362 10^3/uL (150-450); RED BLOOD COUNT 3.55 10^6/uL (3.72-5.28); SEGMENTED NEUTROPHILS % (AUTO) 54.6 % (42-78); TOTAL CELLS COUNTED % (AUTO) 100 %; WHITE BLOOD COUNT 9.2 10^3/uL (4.0-10.5)
[2019-06-17 06:32] LABS: ALANINE AMINOTRANSFERASE 21 U/L (9-52); ALBUMIN 4.3 g/dL (3.5-5.0); ALKALINE PHOSPHATASE 219 U/L (38-126); ASPARTATE AMINO TRANSFERASE 20 U/L (14-36); BILIRUBIN,DIRECT 0.4 mg/dL (0.0-0.4); BILIRUBIN,TOTAL 0.4 mg/dL (0.2-1.3); BLOOD UREA NITROGEN 36 mg/dL (7-20); CALCIUM 8.4 mg/dL (8.4-10.2); CHOLESTEROL 255.33 mg/dL (0-200); GLUCOSE 284 mg/dL (75-110); TOTAL PROTEIN 8.2 g/dL (6.3-8.2)
[2019-06-17] MEDS: CLONIDINE HCL 0.1 MG TABLET PO SCH ×3 (06:34→22:34)
[2019-06-17] MEDS: HEPARIN SOD (PORCINE) 5,000 UNIT/ML 1 ML VIAL SUBCUT SCH ×3 (06:34→22:34)
[2019-06-17 06:38] LABS: ANION GAP 17 (5-19); CARBON DIOXIDE 28 mmol/L (22-30); CHLORIDE 91 mmol/L (98-107)
[2019-06-17] MEDS: OXYCODONE-ACETAMINOPHEN 5-325 MG TABLET PO PRN ×2 (06:38→13:50)
[2019-06-17] MEDS: OXYCODONE HCL IR 5 MG TABLET PO PRN ×2 (06:39→13:51)
[2019-06-17 06:43] LABS: DIRECT LDL 88 mg/dL (<100)
[2019-06-17 06:45] LABS: POTASSIUM 4.5 mmol/L (3.6-5.0); TRIGLYCERIDES 662 mg/dL (<150)
[2019-06-17] MEDS: INSULIN LISPRO 100 UNIT/ML 3 ML VIAL SUBCUT SCH ×4 (07:50→22:33)
[2019-06-17] MEDS: OXCARBAZEPINE 150 MG TABLET PO SCH ×2 (11:58→22:32)
--- NOTE | 2019-06-17 11:58 | PDOC H&P ---
History of Present Illness Admission Date/PCP: 06/16/19 14:06 HILARY HERNANDEZ MD History of Present Illness: ERICH GOODMAN is a 34 year old female, she was at outpatient dialysis, she had dialysis session outpatient she could not finish the dialysis because she was feeling unwell with generalized abdominal pain and discomfort the dialysis session was discontinued, she was referred to the ER, she was found to have severe hyperglycemia, lipase was also elevated consultation was obtained from nephrology she underwent emergency hemodialysis in the emergency room. Past Medical History Cardiac Medical History: Reports: Congestive Heart Failure, Coronary Artery Disease, Hypertension, Heart Murmur Pulmonary Medical History: Reports: Asthma, Pneumonia Neurological Medical History: Reports: Migraine, Seizures - only r/t low calcium Endocrine Medical History: Reports: Diabetes Mellitus Type 1 Renal/ Medical History: Reports: End Stage Renal Disease - On hemodialysis MWF Malignancy Medical History: GI Medical History: Musculoskeltal Medical History: Skin Medical History: Reports: Psoriasis Psychiatric Medical History: Reports: Depression Hematology: Reports: Anemia Infectious Medical History: Past Surgical History Past Surgical History: Reports: Appendectomy, Cholecystectomy, Vascular Surgery - Lt AV Fistula and graft; Rt AV fistula Social History Smoking Status: Unknown if Ever Smoked Frequency of Alcohol Use: Occasional Hx Recreational Drug Use: No Drugs: None Hx Prescription Drug Abuse: No Family History Family History: Reviewed & Not Pertinent Parental Family History Reviewed: Yes Children Family History Reviewed: Yes Sibling(s) Family History Reviewed.: Yes Medication/Allergy Home Medications: Alprazolam [Xanax 0.5 mg Tablet] 0.5 mg PO BIDP PRN MDD 2 MG 04/24/19 Buprenorphine HCl [Belbuca] 450 mcg BC Q12 04/24/19 Insulin Detemir [Levemir] 30 unit SQ BID 04/24/19 Insulin Lispro [Humalog Insulin (Lispro) 100 unit/mL] 0 unit SUBCUT .SLD SCALE 04/24/19 Nifedipine [Nifedipine ER] 60 mg PO Q12 04/24/19 Oxcarbazepine [Trileptal] 300 mg PO Q12 04/24/19 Oxycodone HCl/Acetaminophen [Percocet 7.5-325 mg Tablet] 1 each PO Q6HP PRN 04/24/19 Paroxetine HCl [Paxil] 80 mg PO QHS 04/24/19 Sucroferric Oxyhydroxide [Velphoro] 1,000 mg PO .BID SNACKS 05/29/19 Sucroferric Oxyhydroxide [Velphoro] 1,500 mg PO MEALS 05/29/19 Zolpidem Tartrate [Ambien 5 mg Tablet] 10 mg PO HSP PRN 05/29/19 Carvedilol [Coreg 25 mg Tablet] 1 tab PO DAILY 06/16/19 Clonidine HCl [Catapres 0.1 mg Tablet] 0.1 mg PO Q8 06/16/19 Allergies/Adverse Reactions: aspirin [Aspirin] Allergy (Verified 05/26/19 12:22) Anaphylaxis ciprofloxacin [From Cipro] Allergy (Verified 05/26/19 12:22) Anaphylaxis clindamycin [Clindamycin] Allergy (Verified 05/26/19 12:22) hydrocodone [From Vicodin] Allergy (Verified 05/26/19 12:22) ibuprofen [From Motrin] Allergy (Verified 05/26/19 12:22) Anaphylaxis lidocaine [From Lidoderm] Allergy (Verified 05/26/19 12:22) Generalized rash tramadol HCl [From Ultram] Allergy (Verified 05/26/19 12:22) vancomycin [Vancomycin] Allergy (Verified 05/26/19 12:22) Shortness of Breath nitroglycerin [Nitroglycerin] Adverse Reaction (Intermediate, Verified 05/26/19 12:22) Joint pain Review of Systems Constitutional: PRESENT: weakness Eyes: ABSENT: visual disturbances Ears: ABSENT: hearing changes Cardiovascular: ABSENT: chest pain, dyspnea on exertion, edema, orthropnea, palpitations Respiratory: ABSENT: cough, hemoptysis Gastrointestinal: PRESENT: abdominal pain, nausea, vomiting Genitourinary: ABSENT: dysuria, hematuria Musculoskeletal: ABSENT: joint swelling Integumentary: ABSENT: rash, wounds Neurological: ABSENT: abnormal gait, abnormal speech, confusion, dizziness, focal weakness, syncope Psychiatric: ABSENT: anxiety, depression, homidical ideation, suicidal ideation Endocrine: ABSENT: cold intolerance, heat intolerance, menstrual abnormalities, polydipsia, polyuria Hematologic/Lymphatic: ABSENT: easy bleeding, easy bruising, lymphadenopathy Physical Exam Vital Signs: Temp Pulse Resp BP Pulse Ox 98.4 F 79 18 128/62 H 100 06/17/19 07:43 06/17/19 07:43 06/17/19 07:43 06/17/19 07:43 06/17/19 07:43 Intake & Output 06/16/19 06/17/19 06/18/19 06:59 06:59 06:59 Intake Total 966 Output Total 3400 Balance -2434 Weight 111.3 kg General appearance: PRESENT: mild distress Head exam: PRESENT: atraumatic, normocephalic Eye exam: PRESENT: conjunctiva pink, EOMI, PERRLA Ear exam: PRESENT: normal external ear exam Mouth exam: PRESENT: moist, tongue midline Neck exam: PRESENT: full ROM Respiratory exam: PRESENT: clear to auscultation freddy Cardiovascular exam: PRESENT: RRR, +S1, +S2 Pulses: PRESENT: normal dorsalis pedis pul, +2 pedal pulses bilateral Vascular exam: PRESENT: normal capillary refill GI/Abdominal exam: PRESENT: normal bowel sounds, soft Rectal exam: PRESENT: deferred Neurological exam: PRESENT: alert, awake, oriented to person, oriented to place, oriented to time, oriented to situation, CN II-XII grossly intact Psychiatric exam: PRESENT: appropriate affect, normal mood Skin exam: PRESENT: dry, intact, warm Results Laboratory Results: 06/17/19 05:22 06/17/19 05:22 06/16/19 06/16/19 06/16/19 11:39 11:39 11:39 WBC 12.8 H RBC 3.45 L Hgb 9.6 L Hct 29.6 L MCV 86 MCH 28.0 MCHC 32.5 RDW 15.5 H Plt Count 353 Seg Neutrophils % 81.6 H Lymphocytes % 9.8 L Monocytes % 5.3 Eosinophils % 2.5 Basophils % 0.8 Absolute Neutrophils 10.5 H Absolute Lymphocytes 1.3 Absolute Monocytes 0.7 Absolute Eosinophils 0.3 Absolute Basophils 0.1 VBG pH VBG pCO2 VBG HCO3 VBG Base Excess Sodium 129.4 L Potassium 6.3 H* Chloride 86 L Carbon Dioxide 23 Anion Gap 20 H BUN 53 H Creatinine 7.41 H Est GFR ( Amer) 8 L Est GFR (Non-Af Amer) 6 L Glucose > 625 H* Lactic Acid Calcium 8.0 L Phosphorus 6.0 H Magnesium 1.8 1.8 Total Bilirubin 0.7 AST 27 ALT 17 Alkaline Phosphatase 246 H Ammonia Total Protein 8.6 H Albumin 4.7 Triglycerides Cholesterol LDL Cholesterol Direct VLDL Cholesterol HDL Cholesterol Amylase 141 H Lipase 646.6 H TSH Free T4 06/16/19 06/16/19 06/16/19 11:39 11:55 14:55 WBC RBC Hgb Hct MCV MCH MCHC RDW Plt Count Seg Neutrophils % Lymphocytes % Monocytes % Eosinophils % Basophils % Absolute Neutrophils Absolute Lymphocytes Absolute Monocytes Absolute Eosinophils Absolute Basophils VBG pH 7.39 VBG pCO2 39.8 VBG HCO3 23.6 VBG Base Excess -1.3 Sodium Potassium Chloride Carbon Dioxide Anion Gap BUN Creatinine Est GFR ( Amer) Est GFR (Non-Af Amer) Glucose Lactic Acid 2.1 Calcium Phosphorus Magnesium Total Bilirubin AST ALT Alkaline Phosphatase Ammonia Total Protein Albumin Triglycerides Cholesterol LDL Cholesterol Direct VLDL Cholesterol HDL Cholesterol Amylase Lipase TSH 1.31 Free T4 0.89 06/16/19 06/16/19 06/17/19 19:37 19:37 05:22 WBC 9.2 RBC 3.55 L Hgb 10.0 L Hct 30.4 L MCV 86 MCH 28.2 MCHC 32.9 RDW 16.0 H Plt Count 362 Seg Neutrophils % 54.6 Lymphocytes % 28.4 Monocytes % 8.5 Eosinophils % 7.5 H Basophils % 1.0 Absolute Neutrophils 5.0 Absolute Lymphocytes 2.6 Absolute Monocytes 0.8 Absolute Eosinophils 0.7 H Absolute Basophils 0.1 VBG pH VBG pCO2 VBG HCO3 VBG Base Excess Sodium Potassium Chloride Carbon Dioxide Anion Gap BUN Creatinine Est GFR ( Amer) Est GFR (Non-Af Amer) Glucose Lactic Acid 2.1 Calcium Phosphorus Magnesium Total Bilirubin AST ALT Alkaline Phosphatase Ammonia < 8.7 L Total Protein Albumin Triglycerides Cholesterol LDL Cholesterol Direct VLDL Cholesterol HDL Cholesterol Amylase Lipase TSH Free T4 06/17/19 05:22 WBC RBC Hgb Hct MCV MCH MCHC RDW Plt Count Seg Neutrophils % Lymphocytes % Monocytes % Eosinophils % Basophils % Absolute Neutrophils Absolute Lymphocytes Absolute Monocytes Absolute Eosinophils Absolute Basophils VBG pH VBG pCO2 VBG HCO3 VBG Base Excess Sodium 136.4 L Potassium 4.5 D Chloride 91 L Carbon Dioxide 28 Anion Gap 17 BUN 36 H Creatinine 6.06 H Est GFR ( Amer) 10 L Est GFR (Non-Af Amer) 8 L Glucose 284 H Lactic Acid Calcium 8.4 Phosphorus Magnesium Total Bilirubin 0.4 AST 20 ALT 21 Alkaline Phosphatase 219 H Ammonia Total Protein 8.2 Albumin 4.3 Triglycerides 662 H Cholesterol 255.33 H LDL Cholesterol Direct 88 VLDL Cholesterol UNABLE TO CALCULATE HDL Cholesterol 35 L Amylase Lipase 357.2 H TSH Free T4 Assessment & Plan - Diagnosis (1) DKA (diabetic ketoacidoses) Qualifiers: Diabetes mellitus type: type 1 Diabetes mellitus complication detail: without coma Qualified Code(s): E10.10 - Type 1 diabetes mellitus with ketoacidosis without coma Is this a current diagnosis for this admission?: Yes Plan: Patient is admitted to be managed for DKA (2) Acute pancreatitis Qualifiers: Pancreatitis type: unspecified pancreatitis type Acute pancreatitis complication: unspecified Qualified Code(s): K85.90 - Acute pancreatitis without necrosis or infection, unspecified Is this a current diagnosis for this admission?: Yes Plan: She is admitted for management (3) ESRD (end stage renal disease) Is this a current diagnosis for this admission?: Yes Plan: Per Nephrology
[2019-06-17] MEDS: NIFEDIPINE 30 MG TAB.ER.24 PO SCH ×2 (11:59→22:32)
[2019-06-17] MEDS: INSULIN GLARGINE,HUM.REC.ANLOG 1,000 UNIT/10 ML VIAL SUBCUT SCH ×2 (11:59→22:37)
[2019-06-17] MEDS: CARVEDILOL 12.5 MG TABLET PO SCH (12:00)
--- NOTE | 2019-06-17 12:03 | PDOC PROGRESS REPORT ---
Subjective Progress Note for:: 06/17/19 Subjective:: She was admitted yesterday for DKA, she feels better today Reason For Visit: ACUTE PANCREATITIS,HYPERKALEMIA,METABOLIC ACIDOSIS Physical Exam Vital Signs: Temp Pulse Resp BP Pulse Ox 97.6 F 77 18 148/89 H 100 06/17/19 11:47 06/17/19 11:47 06/17/19 11:47 06/17/19 11:47 06/17/19 11:47 Intake & Output 06/16/19 06/17/19 06/18/19 06:59 06:59 06:59 Intake Total 966 Output Total 3400 Balance -2434 Weight 111.3 kg General appearance: PRESENT: no acute distress Eye exam: PRESENT: PERRLA Respiratory exam: PRESENT: clear to auscultation freddy Cardiovascular exam: PRESENT: +S1, +S2 GI/Abdominal exam: PRESENT: soft Neurological exam: PRESENT: alert Results Laboratory Results: 06/17/19 05:22 06/17/19 05:22 06/16/19 06/16/19 06/16/19 11:39 11:39 11:39 WBC 12.8 H RBC 3.45 L Hgb 9.6 L Hct 29.6 L MCV 86 MCH 28.0 MCHC 32.5 RDW 15.5 H Plt Count 353 Seg Neutrophils % 81.6 H Lymphocytes % 9.8 L Monocytes % 5.3 Eosinophils % 2.5 Basophils % 0.8 Absolute Neutrophils 10.5 H Absolute Lymphocytes 1.3 Absolute Monocytes 0.7 Absolute Eosinophils 0.3 Absolute Basophils 0.1 VBG pH VBG pCO2 VBG HCO3 VBG Base Excess Sodium 129.4 L Potassium 6.3 H* Chloride 86 L Carbon Dioxide 23 Anion Gap 20 H BUN 53 H Creatinine 7.41 H Est GFR ( Amer) 8 L Est GFR (Non-Af Amer) 6 L Glucose > 625 H* Lactic Acid Calcium 8.0 L Phosphorus 6.0 H Magnesium 1.8 1.8 Total Bilirubin 0.7 AST 27 ALT 17 Alkaline Phosphatase 246 H Ammonia Total Protein 8.6 H Albumin 4.7 Triglycerides Cholesterol LDL Cholesterol Direct VLDL Cholesterol HDL Cholesterol Amylase 141 H Lipase 646.6 H TSH Free T4 06/16/19 06/16/19 06/16/19 11:39 11:55 14:55 WBC RBC Hgb Hct MCV MCH MCHC RDW Plt Count Seg Neutrophils % Lymphocytes % Monocytes % Eosinophils % Basophils % Absolute Neutrophils Absolute Lymphocytes Absolute Monocytes Absolute Eosinophils Absolute Basophils VBG pH 7.39 VBG pCO2 39.8 VBG HCO3 23.6 VBG Base Excess -1.3 Sodium Potassium Chloride Carbon Dioxide Anion Gap BUN Creatinine Est GFR ( Amer) Est GFR (Non-Af Amer) Glucose Lactic Acid 2.1 Calcium Phosphorus Magnesium Total Bilirubin AST ALT Alkaline Phosphatase Ammonia Total Protein Albumin Triglycerides Cholesterol LDL Cholesterol Direct VLDL Cholesterol HDL Cholesterol Amylase Lipase TSH 1.31 Free T4 0.89 06/16/19 06/16/19 06/17/19 19:37 19:37 05:22 WBC 9.2 RBC 3.55 L Hgb 10.0 L Hct 30.4 L MCV 86 MCH 28.2 MCHC 32.9 RDW 16.0 H Plt Count 362 Seg Neutrophils % 54.6 Lymphocytes % 28.4 Monocytes % 8.5 Eosinophils % 7.5 H Basophils % 1.0 Absolute Neutrophils 5.0 Absolute Lymphocytes 2.6 Absolute Monocytes 0.8 Absolute Eosinophils 0.7 H Absolute Basophils 0.1 VBG pH VBG pCO2 VBG HCO3 VBG Base Excess Sodium Potassium Chloride Carbon Dioxide Anion Gap BUN Creatinine Est GFR ( Amer) Est GFR (Non-Af Amer) Glucose Lactic Acid 2.1 Calcium Phosphorus Magnesium Total Bilirubin AST ALT Alkaline Phosphatase Ammonia < 8.7 L Total Protein Albumin Triglycerides Cholesterol LDL Cholesterol Direct VLDL Cholesterol HDL Cholesterol Amylase Lipase TSH Free T4 06/17/19 05:22 WBC RBC Hgb Hct MCV MCH MCHC RDW Plt Count Seg Neutrophils % Lymphocytes % Monocytes % Eosinophils % Basophils % Absolute Neutrophils Absolute Lymphocytes Absolute Monocytes Absolute Eosinophils Absolute Basophils VBG pH VBG pCO2 VBG HCO3 VBG Base Excess Sodium 136.4 L Potassium 4.5 D Chloride 91 L Carbon Dioxide 28 Anion Gap 17 BUN 36 H Creatinine 6.06 H Est GFR ( Amer) 10 L Est GFR (Non-Af Amer) 8 L Glucose 284 H Lactic Acid Calcium 8.4 Phosphorus Magnesium Total Bilirubin 0.4 AST 20 ALT 21 Alkaline Phosphatase 219 H Ammonia Total Protein 8.2 Albumin 4.3 Triglycerides 662 H Cholesterol 255.33 H LDL Cholesterol Direct 88 VLDL Cholesterol UNABLE TO CALCULATE HDL Cholesterol 35 L Amylase Lipase 357.2 H TSH Free T4 Assessment & Plan - Diagnosis (1) DKA (diabetic ketoacidoses) Qualifiers: Diabetes mellitus type: type 1 Diabetes mellitus complication detail: without coma Qualified Code(s): E10.10 - Type 1 diabetes mellitus with ketoacidosis without coma Is this a current diagnosis for this admission?: Yes Plan: continue treatment (2) Acute pancreatitis Qualifiers: Pancreatitis type: unspecified pancreatitis type Acute pancreatitis complication: unspecified Qualified Code(s): K85.90 - Acute pancreatitis without necrosis or infection, unspecified Is this a current diagnosis for this admission?: Yes (3) ESRD (end stage renal disease) Is this a current diagnosis for this admission?: Yes
[2019-06-17] MEDS: PAROXETINE HCL 20 MG TABLET PO SCH (22:32)
[2019-06-17] MEDS ORDERED: INSULIN GLARGINE,HUM.REC.ANLOG 1,000 UNIT/10 ML VIAL (PYX) SUBCUT ONE (22:37)
[2019-06-18] MEDS: OXYCODONE-ACETAMINOPHEN 5-325 MG TABLET PO PRN (01:16)
[2019-06-18] MEDS: OXYCODONE HCL IR 5 MG TABLET PO PRN (01:17)
[2019-06-18] MEDS: CLONIDINE HCL 0.1 MG TABLET PO SCH ×2 (05:48→14:45)
[2019-06-18] MEDS: HEPARIN SOD (PORCINE) 5,000 UNIT/ML 1 ML VIAL SUBCUT SCH ×2 (05:49→14:45)
[2019-06-18 06:29] LABS: ABSOLUTE BASOPHILS # (AUTO) 0.1 10^3/uL (0.0-0.2); ABSOLUTE EOSINOPHILS # (AUTO) 0.8 10^3/uL (0.0-0.6); ABSOLUTE LYMPHOCYTES (AUTO) 3.1 10^3/uL (0.5-4.7); ABSOLUTE MONOCYTES (AUTO) 0.8 10^3/uL (0.1-1.4); ABSOLUTE NEUT (AUTO) 3.9 10^3/uL (1.7-8.2); EOSINOPHILS % (AUTO) 9.1 % (0-6); HEMATOCRIT 29.3 % (36.0-47.0); HEMOGLOBIN 9.8 g/dL (12.0-15.5); LYMPHOCYTES % (AUTO) 35.9 % (13-45); MEAN CORPUSCULAR HEMOGLOBIN 28.7 pg (27.0-33.4); MEAN CORPUSCULAR HGB CONC 33.4 g/dL (32.0-36.0); MEAN CORPUSCULAR VOLUME 86 fl (80-97); MONOCYTES % (AUTO) 9.1 % (3-13); PLATELET COUNT 373 10^3/uL (150-450); RED CELL DISTRIBUTION WIDTH 16.1 % (11.5-14.0); SEGMENTED NEUTROPHILS % (AUTO) 44.9 % (42-78); TOTAL CELLS COUNTED % (AUTO) 100 %; WHITE BLOOD COUNT 8.6 10^3/uL (4.0-10.5)
[2019-06-18 06:53] LABS: ALANINE AMINOTRANSFERASE 15 U/L (9-52); ALBUMIN 4.1 g/dL (3.5-5.0); ALKALINE PHOSPHATASE 186 U/L (38-126); ANION GAP 18 (5-19); ASPARTATE AMINO TRANSFERASE 15 U/L (14-36); BILIRUBIN,DIRECT 0.3 mg/dL (0.0-0.4); BILIRUBIN,TOTAL 0.3 mg/dL (0.2-1.3); BLOOD UREA NITROGEN 60 mg/dL (7-20); CALCIUM 8.1 mg/dL (8.4-10.2); CARBON DIOXIDE 25 mmol/L (22-30); CHLORIDE 90 mmol/L (98-107); GLUCOSE 216 mg/dL (75-110); POTASSIUM 4.7 mmol/L (3.6-5.0); TOTAL PROTEIN 7.8 g/dL (6.3-8.2)
[2019-06-18] MEDS: INSULIN LISPRO 100 UNIT/ML 3 ML VIAL SUBCUT SCH ×2 (08:32→12:16)
[2019-06-18] MEDS: OXCARBAZEPINE 150 MG TABLET PO SCH (10:12)
[2019-06-18] MEDS: NIFEDIPINE 30 MG TAB.ER.24 PO SCH (10:12)
[2019-06-18] MEDS: CARVEDILOL 12.5 MG TABLET PO SCH (10:13)
[2019-06-18] MEDS: INSULIN GLARGINE,HUM.REC.ANLOG 1,000 UNIT/10 ML VIAL SUBCUT SCH (11:15)
[2019-06-18 14:57] VITALS: BP 154/73
--- NOTE | 2019-06-18 16:17 | PDOC DISCHARGE SUMMARY ---
General - Admit/Disc Date/PCP Admission Date/Primary Care Provider: 06/16/19 14:06 HILAYR HERNANDEZ MD Discharge Date: 06/18/19 - Discharge Diagnosis (1) DKA (diabetic ketoacidoses) Is this a current diagnosis for this admission?: Yes (2) Acute pancreatitis Is this a current diagnosis for this admission?: Yes (3) ESRD (end stage renal disease) Is this a current diagnosis for this admission?: Yes - Additional Information Discharge Diet: As Tolerated Discharge Activity: Activity As Tolerated, Balance Activity w/Rest Home Medications: Alprazolam [Xanax 0.5 mg Tablet] 0.5 mg PO BIDP PRN MDD 2 MG 04/24/19 Buprenorphine HCl [Belbuca] 450 mcg BC Q12 04/24/19 Insulin Detemir [Levemir] 30 unit SQ BID 04/24/19 Insulin Lispro [Humalog Insulin (Lispro) 100 unit/mL] 0 unit SUBCUT .SLD SCALE 04/24/19 Nifedipine [Nifedipine ER] 60 mg PO Q12 04/24/19 Oxcarbazepine [Trileptal] 300 mg PO Q12 04/24/19 Oxycodone HCl/Acetaminophen [Percocet 7.5-325 mg Tablet] 1 each PO Q6HP PRN 04/24/19 Paroxetine HCl [Paxil] 80 mg PO QHS 04/24/19 Sucroferric Oxyhydroxide [Velphoro] 1,000 mg PO .BID SNACKS 05/29/19 Sucroferric Oxyhydroxide [Velphoro] 1,500 mg PO MEALS 05/29/19 Zolpidem Tartrate [Ambien 5 mg Tablet] 10 mg PO HSP PRN 05/29/19 Carvedilol [Coreg 25 mg Tablet] 1 tab PO DAILY 06/16/19 Clonidine HCl [Catapres 0.1 mg Tablet] 0.1 mg PO Q8 06/16/19 History of Present Illness History of Present Illness: ERICH GOODMAN is a 34 year old female, she was at outpatient dialysis, she had dialysis session outpatient she could not finish the dialysis because she was feeling unwell with generalized abdominal pain and discomfort the dialysis session was discontinued, she was referred to the ER, she was found to have severe hyperglycemia, lipase was also elevated consultation was obtained from nephrology she underwent emergency hemodialysis in the emergency room. Hospital Course Hospital Course: She was admitted for the management of DKA with a background of end-stage renal disease on hemodialysis, she was hemodialyzed, she feels much better she want to go home today. Insulin regimen was adjusted Physical Exam Vital Signs: Temp Pulse Resp BP Pulse Ox 97.6 F 76 22 H 154/73 H 100 06/18/19 14:53 06/18/19 14:53 06/18/19 14:53 06/18/19 14:53 06/18/19 14:53 Intake & Output 06/17/19 06/18/19 06/19/19 06:59 06:59 06:59 Intake Total 966 1979 480 Output Total 3400 Balance -2431979 480 Weight 111.3 kg 114.8 kg General appearance: PRESENT: no acute distress, well-developed, well-nourished Head exam: PRESENT: atraumatic, normocephalic Eye exam: PRESENT: conjunctiva pink, EOMI, PERRLA Ear exam: PRESENT: normal external ear exam Mouth exam: PRESENT: moist, tongue midline Neck exam: PRESENT: full ROM Respiratory exam: PRESENT: clear to auscultation freddy Cardiovascular exam: PRESENT: RRR, +S1, +S2 Pulses: PRESENT: normal dorsalis pedis pul, +2 pedal pulses bilateral Vascular exam: PRESENT: normal capillary refill GI/Abdominal exam: PRESENT: normal bowel sounds, soft. ABSENT: distended, guarding, mass, organolmegaly, rebound, tenderness Rectal exam: PRESENT: deferred Neurological exam: PRESENT: alert, CN II-XII grossly intact Psychiatric exam: PRESENT: appropriate affect, normal mood Skin exam: PRESENT: dry, intact, warm Results Laboratory Results: 06/18/19 05:45 06/18/19 05:45 06/18/19 06/18/19 05:45 05:45 WBC 8.6 RBC 3.40 L Hgb 9.8 L Hct 29.3 L MCV 86 MCH 28.7 MCHC 33.4 RDW 16.1 H Plt Count 373 Seg Neutrophils % 44.9 Lymphocytes % 35.9 Monocytes % 9.1 Eosinophils % 9.1 H Basophils % 1.0 Absolute Neutrophils 3.9 Absolute Lymphocytes 3.1 Absolute Monocytes 0.8 Absolute Eosinophils 0.8 H Absolute Basophils 0.1 Sodium 133.4 L Potassium 4.7 Chloride 90 L Carbon Dioxide 25 Anion Gap 18 BUN 60 H Creatinine 8.97 H Est GFR ( Amer) 6 L Est GFR (Non-Af Amer) 5 L Glucose 216 H Calcium 8.1 L Total Bilirubin 0.3 AST 15 ALT 15 Alkaline Phosphatase 186 H Total Protein 7.8 Albumin 4.1 Lipase 333.5 H Qualifiers - * PATIENT BEING DISCHARGED WITH ANY OF THE FOLLOWING DIAGNOSIS: No VTE patient discharged on overlapping Therapy?: No Reason(s) for not prescribing Overlap Therapy:: Not indicated Stroke Pt being discharged on Anti-thrombolytic therapy?: No Reason(s) for not prescribing Anti-thrombolytic therapy:: Not indicated Stroke Pt being discharged on Anti-coagulation therapy?: No Reason(s) for not prescribing Anti-coagulation therapy:: Not indicated Stroke Pt being discharged on Statins?: No Reason(s) for not prescribing Statins therapy:: Not indicated CT Pt being discharged on Aspirin therapy?: No Reason(s) for not prescribing Aspirin therapy:: Not indicated CT Pt being discharged on Statins?: No Reason(s) for not prescribing Statin therapy:: Not indicated CT Pt discharged ACEI/ARBS?: No Reason(s) for not prescribing ACEI/ARBS:: Not indicated Acute Heart Failure - Is this a Heart Failure Patient?: No e) For LVEF <35%, discharged on Aldosterone antagonist?: N/A (LVEF > or = 35%)
== END 2019-06-18 15:38 | disposition home or self-care (01) | DRG 637 ==
LOC: ER 11:12 → EH 14:06 → 3S 19:01
PROVIDERS: ADMIT Internal Medicine; ATTEND Internal Medicine
PROC: 5A1D70Z Performance of Urinary Filtration, Intermittent, Less than 6 Hours Per Day (ICD-10-PCS; principal; 2019-06-16)
DX: E10.10 Type 1 diabetes mellitus with ketoacidosis without coma (principal); N18.6 End stage renal disease; K85.90 Acute pancreatitis without necrosis or infection, unspecified; I13.2 Hypertensive heart and chronic kidney disease with heart failure and with stage 5 chronic kidney disease, or end stage renal disease; E87.1 Hypo-osmolality and hyponatremia; Z79.4 Long term (current) use of insulin; E10.22 Type 1 diabetes mellitus with diabetic chronic kidney disease; E87.5 Hyperkalemia; J45.909 Unspecified asthma, uncomplicated; I50.9 Heart failure, unspecified; E66.9 Obesity, unspecified; D63.1 Anemia in chronic kidney disease; I25.10 Atherosclerotic heart disease of native coronary artery without angina pectoris; Z99.2 Dependence on renal dialysis; L40.9 Psoriasis, unspecified; F32.9 Major depressive disorder, single episode, unspecified; Z90.49 Acquired absence of other specified parts of digestive tract; Z79.82 Long term (current) use of aspirin; Z88.1 Allergy status to other antibiotic agents; Z88.6 Allergy status to analgesic agent; Z79.899 Other long term (current) drug therapy
CPT/HCPCS: 36415; 80048; 80053; 80061; 80076; 82140; 82150; 82803; 82962; 83036; 83605; 83690; 83735; 84100; 84439; 84443; 85025; 85610; 85730; 87070; 87077; 87880; 93005; 93010; 99291; J1200; J1644; J1815; J2550; Q5105

== ENCOUNTER 2019-06-25 16:19 | Inpatient (IN) | payer MEDICARE, MEDICAID ==
--- NOTE | 2019-06-25 16:48 | ER Document Report ---
Addendum entered and electronically signed by GORDON WHYTE FNP 06/25/19 17:56: Doctor's Note Notes: 06/25/19 17:56 Nursing staff reported a potassium of 7.0 and a blood sugar in the 500s. The patient will receive 12 units of insulin IV x1. Original Note: ED Medical Screen (RME) - General Chief Complaint: Shortness Of Breath Stated Complaint: WEAKNESS Time Seen by Provider: 06/25/19 16:32 Primary Care Provider: LEIECER SMITH NP [Primary Care Provider] - Follow up as needed Notes: Patient is a 34-year-old female with end-stage renal disease, hypertension, diabetes, and asthma who presents to the emergency department with general weakness and shortness of breath. Patient states that she feels like her potassium is high. She had dialysis this past Wednesday and states that she feels like she is gotten progressively worse. She states that the took off more fluid than normal on Wednesday, but still feels short of breath. Not, how much they took off. On she received some steroid injections for her rheumatoid arthritis. Patient states that she has been taking her medications as prescribed. Patient states that she is oliguric. Exam: Appears tired. Blood sugar 533 on Accu-Chek machine. Crackles noted in left lobes. I have greeted and performed a rapid initial assessment of this patient. A comprehensive ED assessment and evaluation of the patient, analysis of test results and completion of medical decision making process will be conducted by an additional ED providers. TRAVEL OUTSIDE OF THE [place] IN LAST 30 DAYS: No - Related Data Allergies/Adverse Reactions: aspirin [Aspirin] Allergy (Verified 06/25/19 16:20) Anaphylaxis ciprofloxacin [From Cipro] Allergy (Verified 06/25/19 16:20) Anaphylaxis clindamycin [Clindamycin] Allergy (Verified 06/25/19 16:20) hydrocodone [From Vicodin] Allergy (Verified 06/25/19 16:20) ibuprofen [From Motrin] Allergy (Verified 06/25/19 16:20) Anaphylaxis lidocaine [From Lidoderm] Allergy (Verified 06/25/19 16:20) Generalized rash tramadol HCl [From Ultram] Allergy (Verified 06/25/19 16:20) vancomycin [Vancomycin] Allergy (Verified 06/25/19 16:20) Shortness of Breath nitroglycerin [Nitroglycerin] Adverse Reaction (Intermediate, Verified 06/25/19 16:20) Joint pain Past Medical History - Social History Frequency of alcohol use: None Drug Abuse: None Family history: Reviewed & Not Pertinent - Past Medical History Cardiac Medical History: Reports: Hx Congestive Heart Failure, Hx Coronary Artery Disease, Hx Hypertension, Hx Heart Murmur Pulmonary Medical History: Reports: Hx Asthma, Hx Pneumonia Neurological Medical History: Reports: Hx Migraine, Hx Seizures - only r/t low calcium Endocrine Medical History: Reports: Hx Diabetes Mellitus Type 1, Hx Diabetes Mellitus Type 2 Renal/ Medical History: Reports: Hx End Stage Renal Disease - On hemodialysis MWF, Hx Hemodialysis, Hx Ovarian Cysts. Denies: Hx Peritoneal Dialysis Malignancy Medical History: GI Medical History: Reports: Hx Gastritis Musculoskeltal Medical History: Skin Medical History: Reports Hx Psoriasis Psychiatric Medical History: Reports: Hx Depression Traumatic Medical History: Infectious Medical History: Past Surgical History: Reports: Hx Appendectomy, Hx Cholecystectomy, Hx Vascular Surgery - Lt AV Fistula and graft; Rt AV fistula. Denies: Hx Hysterectomy - Immunizations Immunizations up to date: Yes Hx Diphtheria, Pertussis, Tetanus Vaccination: Yes History of Influenza Vaccine for 08/2017 - 01/2018 Season: Yes Influenza Administration Date for 08/2017 - 01/2018 Season: 08/22/17 Physical Exam - Vital signs Vitals: Temp Pulse Resp BP Pulse Ox 98.5 F 87 17 186/85 H 96 06/25/19 16:23 06/25/19 16:23 06/25/19 16:23 06/25/19 16:23 06/25/19 16:23 Course - Vital Signs Vital signs: Temp Pulse Resp BP Pulse Ox 98.5 F 87 17 186/85 H 96 06/25/19 16:23 06/25/19 16:23 06/25/19 16:23 06/25/19 16:23 06/25/19 16:23 Doctor's Discharge - Discharge Referrals: ELIECER SMITH NP [Primary Care Provider] - Follow up as needed
--- NOTE | 2019-06-25 17:04 | RADIOLOGY REPORT (SQ) ---
EXAM DESCRIPTION: CHEST SINGLE VIEW COMPLETED DATE/TIME: 06/25/2019 4:55 pm REASON FOR STUDY: shortness of breath COMPARISON: 06/09/2019. EXAM PARAMETERS: NUMBER OF VIEWS: One view. TECHNIQUE: Single frontal radiographic view of the chest acquired. RADIATION DOSE: NA LIMITATIONS: None. FINDINGS: LUNGS AND PLEURA: No opacities, masses or pneumothorax. No pleural effusion. MEDIASTINUM AND HILAR STRUCTURES: No masses. Contour normal. HEART AND VASCULAR STRUCTURES: Cardiomegaly. Central vascular congestion. Fullness in the left hilu m likely due to prominent pulmonary vessels. BONES: No acute findings. HARDWARE: Vascular stents in the right subclavian and axillary region. OTHER: No other significant finding. IMPRESSION: CARDIOMEGALY WITH VASCULAR CONGESTION. TECHNICAL DOCUMENTATION: JOB ID: [id number] [employer]- All Rights Reserved Reading location - IP/workstation name: [email or web address]
[2019-06-25 17:20] LABS: VENOUS BLOOD PCO2 39.8 mmHg (35-63); VENOUS BLOOD PH 7.3 (7.30-7.42)
[2019-06-25 17:22] LABS: ABSOLUTE BASOPHILS # (AUTO) 0.1 10^3/uL (0.0-0.2); ABSOLUTE EOSINOPHILS # (AUTO) 0.4 10^3/uL (0.0-0.6); ABSOLUTE LYMPHOCYTES (AUTO) 1.9 10^3/uL (0.5-4.7); ABSOLUTE MONOCYTES (AUTO) 0.6 10^3/uL (0.1-1.4); ABSOLUTE NEUT (AUTO) 5.8 10^3/uL (1.7-8.2); BASOPHILS % (AUTO) 0.8 % (0-2); EOSINOPHILS % (AUTO) 4.8 % (0-6); HEMATOCRIT 29.2 % (36.0-47.0); HEMOGLOBIN 9.8 g/dL (12.0-15.5); LYMPHOCYTES % (AUTO) 21.5 % (13-45); MEAN CORPUSCULAR HEMOGLOBIN 29.5 pg (27.0-33.4); MEAN CORPUSCULAR HGB CONC 33.5 g/dL (32.0-36.0); MEAN CORPUSCULAR VOLUME 88 fl (80-97); MONOCYTES % (AUTO) 6.7 % (3-13); PLATELET COUNT 316 10^3/uL (150-450); RED BLOOD COUNT 3.31 10^6/uL (3.72-5.28); RED CELL DISTRIBUTION WIDTH 16.4 % (11.5-14.0); SEGMENTED NEUTROPHILS % (AUTO) 66.2 % (42-78); TOTAL CELLS COUNTED % (AUTO) 100 %; WHITE BLOOD COUNT 8.7 10^3/uL (4.0-10.5)
[2019-06-25 17:38] LABS: ALBUMIN 4.5 g/dL (3.5-5.0); ALKALINE PHOSPHATASE 231 U/L (38-126); ASPARTATE AMINO TRANSFERASE 21 U/L (14-36); BILIRUBIN,DIRECT 0.5 mg/dL (0.0-0.4); BILIRUBIN,TOTAL 0.5 mg/dL (0.2-1.3); BLOOD UREA NITROGEN 75 mg/dL (7-20); CALCIUM 7.3 mg/dL (8.4-10.2); CARBON DIOXIDE 18 mmol/L (22-30); CHLORIDE 88 mmol/L (98-107); TOTAL PROTEIN 8.2 g/dL (6.3-8.2)
[2019-06-25 17:47] LABS: ANION GAP 23 (5-19)
[2019-06-25 17:51] LABS: GLUCOSE 512 mg/dL (75-110)
[2019-06-25] MEDS ORDERED: INSULIN REG, HUMAN 100 UNIT/ML 3 ML VIAL (PYX) IV ONE ×2 (17:53→20:41)
[2019-06-25] MEDS ORDERED: SODIUM BICARBONATE 8.4% INJ 50 MEQ/50 ML DISP.SYRIN IV ONE (18:14)
[2019-06-25] MEDS ORDERED: CALCIUM GLUCONATE 1000 MG/10 ML INJ IV ONE (18:14)
--- NOTE | 2019-06-25 19:23 | ER Document Report ---
ED General - General Chief Complaint: Shortness Of Breath Stated Complaint: WEAKNESS Time Seen by Provider: 06/25/19 16:32 Primary Care Provider: ELIECER SMITH NP [NO LOCAL MD] - Follow up as needed Notes: 34-year-old female with a history of type 1 diabetes which is poorly controlled and end-stage renal disease goes to dialysis on Wednesday. She presents the emergency department stating that she feels like her potassium is high. Patient states that yesterday she started feeling "weak and buzzy" so she took Veltassa 8.5 without any improvement in her symptoms so she came here today. Patient also states that she knows her blood sugar is elevated because she recently had steroid shots in her back to help with chronic back pain and she has been having some orthopnea as well. Has not missed any dialysis, denies cough and denies fever. TRAVEL OUTSIDE OF THE [place] IN LAST 30 DAYS: No - Related Data Allergies/Adverse Reactions: aspirin [Aspirin] Allergy (Verified 06/25/19 16:20) Anaphylaxis ciprofloxacin [From Cipro] Allergy (Verified 06/25/19 16:20) Anaphylaxis clindamycin [Clindamycin] Allergy (Verified 06/25/19 16:20) hydrocodone [From Vicodin] Allergy (Verified 06/25/19 16:20) ibuprofen [From Motrin] Allergy (Verified 06/25/19 16:20) Anaphylaxis lidocaine [From Lidoderm] Allergy (Verified 06/25/19 16:20) Generalized rash tramadol HCl [From Ultram] Allergy (Verified 06/25/19 16:20) vancomycin [Vancomycin] Allergy (Verified 06/25/19 16:20) Shortness of Breath nitroglycerin [Nitroglycerin] Adverse Reaction (Intermediate, Verified 06/25/19 16:20) Joint pain Past Medical History - General Information source: Patient - Social History Smoking Status: Never Smoker Frequency of alcohol use: None Drug Abuse: None Family History: Reviewed & Not Pertinent Patient has suicidal ideation: No Patient has homicidal ideation: No - Past Medical History Cardiac Medical History: Reports: Hx Congestive Heart Failure, Hx Coronary Artery Disease, Hx Hypertension, Hx Heart Murmur Pulmonary Medical History: Reports: Hx Asthma, Hx Pneumonia Neurological Medical History: Reports: Hx Migraine, Hx Seizures - only r/t low calcium Endocrine Medical History: Reports: Hx Diabetes Mellitus Type 1, Hx Diabetes Mellitus Type 2 Renal/ Medical History: Reports: Hx End Stage Renal Disease - On hemodialysis MWF, Hx Hemodialysis, Hx Ovarian Cysts. Denies: Hx Peritoneal Dialysis Malignancy Medical History: GI Medical History: Reports: Hx Gastritis Musculoskeletal Medical History: Skin Medical History: Reports Hx Psoriasis Psychiatric Medical History: Reports: Hx Depression Traumatic Medical History: Infectious Medical History: Past Surgical History: Reports: Hx Appendectomy, Hx Cholecystectomy, Hx Vascular Surgery - Lt AV Fistula and graft; Rt AV fistula. Denies: Hx Hysterectomy - Immunizations Immunizations up to date: Yes Hx Diphtheria, Pertussis, Tetanus Vaccination: Yes Hx Pneumococcal Vaccination: 08/22/11 Review of Systems - Review of Systems Constitutional: See HPI, Weakness Respiratory: See HPI -: Yes All other systems reviewed and negative Physical Exam - Vital signs Vitals: Temp Pulse Resp BP Pulse Ox 98.5 F 87 17 186/85 H 96 06/25/19 16:23 06/25/19 16:23 06/25/19 16:23 06/25/19 16:23 06/25/19 16:23 Interpretation: Hypertensive - Notes Notes: GENERAL: Alert, interacts well. No acute distress. HEAD: Normocephalic, atraumatic EYES: Pupils equal, round and reactive to light, extraocular movements intact. ENT: Oral mucosa moist, tongue midline. NECK: Full range of motion, supple, trachea midline. LUNGS: Clear to auscultation bilaterally, no wheezes, rales or rhonchi, mildly tachypneic but no obvious respiratory distress. HEART: Regular rate and rhythm, no murmurs, gallops, rubs. ABDOMEN: Soft, nontender, nondistended, bowel sounds present in all 4 quadrants. EXTREMITIES: Moves all 4 extremities spontaneously, no edema, radial and dorsalis pedis pulses 2/4 bilaterally. No cyanosis. Right-sided AV fistula in the right upper extremity has palpable thrill. NEUROLOGICAL: Alert and oriented x3, normal speech. PSYCH: Normal mood, normal affect. SKIN: Warm, Dry, normal turgor, multiple scars from prior central lines noted. Course - Re-evaluation Re-evalutation: 06/25/19 19:23 Discussed hyperkalemia in the setting of renal failure and end-stage renal disease on dialysis as well as DKA with Dr. Tam, we have no access to dialysis this evening. Recommends transfer. 06/25/19 20:56 Discussed the patient with Dr. Jaspal Ballard at [facility] the hospitalist who states that he will not accept this patient unless I discussed it with nephrology, also feels that if the cnc machine programmer would not do emergent dialysis tonight but that it would not be an appropriate transfer. Discussed the patient with Dr. Juventino Carranza who said that he would not likely do emergent dialysis tonight. He suggests treating this elevated potassium by starting an insulin drip to treat the DKA. He states he would not give the patient any additional fluids as she does not urinate so dehydration is not a significant factor in diabetic ketoacidosis. Agrees with giving some bicarb and some calcium. And rechecking the potassium. If this does successfully lower the potassium I will call and we discussed the patient with Dr. Tam to see if he is comfortable excepting the patient at that point. Patient is in agreement with this plan. Patient has already rec eived a bolus of insulin here, we will recheck potassium now. 06/25/19 22:25 Repeat chemistries show sodium is now 134, potassium has improved to 5.9, CO2 is now 22, anion gap is decreased from 2321, this is not close but is improved, blood sugars 177 on serum. Calcium is 7.6. At this point I have rediscussed the patient with Dr. Tam who agrees to accept the patient to his service in the ICU and the patient will be dialyzed in the morning. As the patient is on fluid restrictions rather than starting the typical dextrose containing infusion at this point we will attempt to feed the patient and continue to have the insulin drip going at approximately 2 units/h to slowly closed the gap. Patient's nausea has resolved but she states that headache is coming back. We will give her a little bit more medication. 06/25/19 22:28 Called [facility] and let the transfer line know that I was canceling the request for transfer. - Vital Signs Vital signs: Temp Pulse Resp BP Pulse Ox 98.5 F 87 23 H 194/87 H 98 06/25/19 16:23 06/25/19 16:23 06/25/19 21:01 06/25/19 20:01 06/25/19 22:04 - Laboratory Result Diagrams: 06/25/19 17:06 06/25/19 21:04 Laboratory results interpreted by me: 06/25/19 06/25/19 06/25/19 17:06 17:06 17:06 RBC 3.31 L Hgb 9.8 L Hct 29.2 L RDW 16.4 H VBG HCO3 19.0 L Sodium 129.0 L Potassium 7.0 H* Chloride 88 L Carbon Dioxide 18 L Anion Gap 23 H BUN 75 H Creatinine 10.37 H Est GFR ( Amer) 5 L Est GFR (Non-Af Amer) 4 L Glucose 512 H* POC Glucose Calcium 7.3 L Direct Bilirubin 0.5 H Alkaline Phosphatase 231 H 06/25/19 06/25/19 21:04 21:20 RBC Hgb Hct RDW VBG HCO3 Sodium 134.0 L Potassium 5.9 H D Chloride 91 L Carbon Dioxide Anion Gap 21 H BUN 82 H Creatinine 10.51 H Est GFR ( Amer) 5 L Est GFR (Non-Af Amer) 4 L Glucose 177 H POC Glucose 203 H Calcium 7.6 L Direct Bilirubin Alkaline Phosphatase - EKG Interpretation by Me Additional EKG results interpreted by me: 06/25/19 21:00 EKG shows sinus rhythm rate of 86, first-degree AV block with HI interval of 2 32, slight interventricular conduction delay with a QRS duration of 102, markedly peaked T waves noted particularly in 2, 3, aVF, V3 through V6, no ST segment elevations or depressions, there are T wave inversions noted in aVL which are unchanged from prior EKG on 06/16/2019 per my interpretation. Critical Care Note - Critical Care Note Total time excluding time spent on procedures (mins): 55 Discharge - Discharge Clinical Impression: ESRD (end stage renal disease) on dialysis, Hyperkalemia, Diabetes mellitus type 1 with complications, End stage renal disease on dialysis due to type 1 diabetes mellitus DKA (diabetic ketoacidoses) Qualifiers: Diabetes mellitus type: type 1 Diabetes mellitus complication detail: without coma Qualified Code(s): E10.10 - Type 1 diabetes mellitus with ketoacidosis without coma Headache Qualifiers: Headache type: unspecified Headache chronicity pattern: acute headache Intractability: not intractable Qualified Code(s): R51 - Headache Condition: Critical Disposition: ADMITTED INPATIENT Admitting Provider: Areli tam [facility] Unit Admitted: ICU Referrals: ELIECER SMITH NP [NO LOCAL MD] - Follow up as needed
--- NOTE | 2019-06-25 19:31 | ER Document Report ---
Doctor's Note Notes: 06/25/19 19:29 Procedure note: Patient was consented and agreed verbally to a IV in the neck. Underneath direct ultrasound guidance a 20-gauge IV was placed in the left external jugular vein via ultrasound guidance. Sterile procedure was used. The neck was prepped with alcohol and ChloraPrep. The external jugular vein was easily accessed. The catheter was advanced without difficulty and the IV site was secured. No complications. Patient tolerated procedure well. Catheter was easily flushed and blood was easily withdrawn. No hematomas.
[2019-06-25] MEDS ORDERED: ONDANSETRON HCL INJ/PF 4 MG/2 ML SDV IV ONE (20:59)
[2019-06-25] MEDS ORDERED: HYDROMORPHONE HCL INJ/PF 2 MG/ML AMPULE IV ONE (20:59)
[2019-06-25 22:06] LABS: BLOOD UREA NITROGEN 82 mg/dL (7-20); CALCIUM 7.6 mg/dL (8.4-10.2); CARBON DIOXIDE 22 mmol/L (22-30); CHLORIDE 91 mmol/L (98-107); GLUCOSE 177 mg/dL (75-110)
[2019-06-25 22:18] LABS: ANION GAP 21 (5-19); POTASSIUM 5.9 mmol/L (3.6-5.0)
[2019-06-25] MEDS ORDERED: MORPHINE SULFATE 10 MG/ML INJ IV ONE (22:27)
--- NOTE | 2019-06-25 23:09 | EKG REPORT ---
SEVERITY:- ABNORMAL ECG - SINUS RHYTHM FIRST DEGREE AV BLOCK PROBABLE LEFT ATRIAL ABNORMALITY LEFT AXIS DEVIATION LEFT VENTRICULAR HYPERTROPHY PROLONGED QT INTERVAL : Confirmed by: Beatriz Leyva MD 25-Jun-2019 23:08:48
[2019-06-25] MEDS ORDERED: PATIROMER 8.4 GM SUSP PACKET ONE (23:32)
[2019-06-26] MEDS ORDERED: DEXTROSE 50%-WATER SYRINGE 25 GM/50 ML DOSE IV PRN (04:00)
[2019-06-26] MEDS ORDERED: DEXTROSE 40% GEL 15 GM TUBE PO PRN (04:00)
[2019-06-26] MEDS ORDERED: GLUCAGON,HUMAN RECOMB 1 MG INJ IM PRN (04:00)
[2019-06-26] MEDS ORDERED: DEXTROSE 40% GEL 15 GM TUBE X 2 PO PRN (04:00)
[2019-06-26] MEDS ORDERED: DEXTROSE 50%-WATER SYRINGE 12.5 GM/25 ML DOSE IV PRN (04:00)
[2019-06-26] MEDS: INSULIN, REGULAR 100 UNIT/100 ML NORMAL SALINE IV PRN ×2 (04:06)
[2019-06-26] MEDS ORDERED: EPOETIN ALFA INJ 20000 UNIT/1 ML VIAL (RENAL) IV PRN ×2 (07:01→10:40)
[2019-06-26] MEDS ORDERED: EPOETIN ALFA-EPBX 5,000 UNITS (ESRD) in SYRINGE IV PRN ×3 (08:00)
[2019-06-26 08:20] LABS: ABSOLUTE BASOPHILS # (AUTO) 0.1 10^3/uL (0.0-0.2); ABSOLUTE EOSINOPHILS # (AUTO) 0.6 10^3/uL (0.0-0.6); ABSOLUTE LYMPHOCYTES (AUTO) 2.4 10^3/uL (0.5-4.7); ABSOLUTE MONOCYTES (AUTO) 0.6 10^3/uL (0.1-1.4); ABSOLUTE NEUT (AUTO) 5.9 10^3/uL (1.7-8.2); BASOPHILS % (AUTO) 1.3 % (0-2); EOSINOPHILS % (AUTO) 5.9 % (0-6); HEMOGLOBIN 9.2 g/dL (12.0-15.5); LYMPHOCYTES % (AUTO) 25.1 % (13-45); MEAN CORPUSCULAR HEMOGLOBIN 28.3 pg (27.0-33.4); MEAN CORPUSCULAR VOLUME 86 fl (80-97); MONOCYTES % (AUTO) 6.6 % (3-13); PLATELET COUNT 305 10^3/uL (150-450); RED BLOOD COUNT 3.26 10^6/uL (3.72-5.28); RED CELL DISTRIBUTION WIDTH 16.5 % (11.5-14.0); SEGMENTED NEUTROPHILS % (AUTO) 61.1 % (42-78); TOTAL CELLS COUNTED % (AUTO) 100 %; WHITE BLOOD COUNT 9.7 10^3/uL (4.0-10.5)
[2019-06-26 08:41] LABS: BLOOD UREA NITROGEN 94 mg/dL (7-20); CALCIUM 7.1 mg/dL (8.4-10.2); GLUCOSE 128 mg/dL (75-110); POTASSIUM 5.5 mmol/L (3.6-5.0)
[2019-06-26 08:47] LABS: CARBON DIOXIDE 23 mmol/L (22-30); CHLORIDE 92 mmol/L (98-107)
[2019-06-26 08:51] LABS: ANION GAP 22 (5-19)
[2019-06-26] MEDS ORDERED: HEPARIN SOD (PORCINE) 1,000 UNIT/ML 10 ML VIAL IV PRN (10:40)
[2019-06-26] MEDS ORDERED: EPOETIN ALFA-EPBX 20,000 UNITS (ESRD) in SYRINGE IV PRN (10:59)
--- NOTE | 2019-06-26 11:34 | PDOC CONSULTATION ---
Consultation Consult Date: 06/26/19 Provider Consulted: ERICA IVY Consult reason:: I was asked to see the patient to supervise and initiate hemodialysis in a patient with ESRD presenting with hyperkalemia. History of Present Illness Admission Date/PCP: 06/25/19 22:41 HILARY HERNANDEZ MD History of Present Illness: ERICH GOODMAN is a 34 year old female known to me with history of ESRD on hemodialysis on MWF requiring diabetic nephropathy, diabetes mellitus type 1, hypertension, anemia of chronic kidney disease, noncompliance and frequent hospitalizations who presented last night with complaint of weakness, shortness of breath and just not feeling well. 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 Gonzalez. She thinks this made her blood sugar up but she could not tell me what her blood sugar has been running since then. She went to her usual hemodialysis treatment at [facility] on Wednesday and she reports that she finish and completed the treatment. And Wednesday she felt like her potassium was going up so she went to the emergency room yesterday. She has pain on the left side along the midaxillary line of the lower portion of the chest. She denies any shortness of breath. She admits some nausea but denies any diarrhea no abdominal pain. She also has some headache. Initial evaluation last night showed a potassium of 7.0, bicarbonate of 18 and blood sugar of 512. Patient was attempted to be transferred to [facility] but the lightout examiner on-call, Dr. Carranza advised him to just start insulin drip to treat the DKA, given calcium gluconate and bicarbonate since she will most likely not going to need any emergent dialysis treatment last night. After treatment was initiated patient's potassium has been down to 5.9 and this morning she was admitted here in the ICU. She continues to be on insulin drip. I am seeing her this morning during initiation of hemodialysis treatment. She again complains of some headache and not feeling very good with current blood sugar of 85. Otherwise she appears to be comfortable and not short of breath. Past Medical History Cardiac Medical History: Reports: Coronary Artery Disease, Heart Murmur, Hypertension-primary Pulmonary Medical History: Reports: Asthma, Pneumonia Neurological Medical History: Reports: Migraine, Seizures - only r/t low calcium Endocrine Medical History: Reports: Diabetes Mellitus Type 1 Complications of Diabetes: Reports: Autonomic Neuropathy, Nephropathy, Retinopathy Renal/ Medical History: Reports: End Stage Renal Disease - On hemodialysis MWF, Hyperkalemia, Hyperphosphatemia, Secondary Hyperparathyroidism Malignancy Medical History: GI Medical History: Musculoskeltal Medical History: Skin Medical History: Reports: Psoriasis Psychiatric Medical History: Reports: Depression Infectious Medical History: Hematology Medical History: Reports Anemia of Chronic Kidney Disease Past Surgical History Past Surgical History: Reports: Appendectomy, Cholecystectomy, Dialysis Access Surgery AVF, Vascular Surgery - Lt AV Fistula and graft; Rt AV fistula Social History Information Source: Patient, [facility] Records Smoking Status: Never Smoker Frequency of Alcohol Use: Occasional Hx Recreational Drug Use: No Drugs: None Hx Prescription Drug Abuse: No Family History Family History: No family history of kidney disease. She has autistic child. Parental Family History Reviewed: Yes Children Family History Reviewed: Yes Sibling(s) Family History Reviewed.: Yes Medication/Allergy Allergies/Adverse Reactions: aspirin [Aspirin] Allergy (Verified 06/25/19 16:20) Anaphylaxis ciprofloxacin [From Cipro] Allergy (Verified 06/25/19 16:20) Anaphylaxis clindamycin [Clindamycin] Allergy (Verified 06/25/19 16:20) hydrocodone [From Vicodin] Allergy (Verified 06/25/19 16:20) ibuprofen [From Motrin] Allergy (Verified 06/25/19 16:20) Anaphylaxis lidocaine [From Lidoderm] Allergy (Verified 06/25/19 16:20) Generalized rash tramadol HCl [From Ultram] Allergy (Verified 06/25/19 16:20) vancomycin [Vancomycin] Allergy (Verified 06/25/19 16:20) Shortness of Breath nitroglycerin [Nitroglycerin] Adverse Reaction (Intermediate, Verified 06/25/19 16:20) Joint pain Review of Systems All systems: reviewed and no additional remarkable complaints except as stated Review of Systems: Constitutional: ABSENT: chills, fatigue, fever(s), weight gain, weight loss; admits weakness Eyes: ABSENT: visual disturbances Ears: ABSENT: hearing changes Cardiovascular: ABSENT: chest pain, dyspnea on exertion, edema, orthropnea, palpitations; reports shortness of breath Respiratory: ABSENT: cough, dyspnea, hemoptysis Gastrointestinal: ABSENT: abdominal pain, constipation, diarrhea, hematemesis, hematochezia, vomiting; admits nausea Genitourinary: ABSENT: dysuria, hematuria Musculoskeletal: ABSENT: joint swelling Integumentary: ABSENT: rash, wounds Neurological: ABSENT: abnormal gait, abnormal speech, confusion, dizziness, focal weakness, numbness, syncope; admits headache Psychiatric: ABSENT: anxiety, depression Endocrine: ABSENT: cold intolerance, heat intolerance, polydipsia, polyuria Hematologic/Lymphatic: ABSENT: easy bleeding, easy bruising, lymphadenopathy Physical Exam Vital Signs: Temp Pulse Resp BP Pulse Ox 98.1 F 92 15 137/64 H 93 06/26/19 10:00 06/26/19 10:00 06/26/19 10:00 06/26/19 10:00 06/26/19 10:00 Intake & Output 06/25/19 06/26/19 06/27/19 06:59 06:59 06:59 Intake Total 6 263 Output Total 0 Balance 6 263 Weight 121 kg Exam: General appearance: No acute distress, cooperative, well-developed, well- nourished, appears ill Head exam: PRESENT: atraumatic, normocephalic Eye exam: PRESENT: Conjunctiva pale, EOMI, PERRLA. ABSENT: conjunctival injection, scleral icterus Mouth exam: PRESENT: moist, neck supple, tongue midline Neck exam: PRESENT: full ROM. ABSENT: carotid bruit, JVD, lymphadenopathy, thyromegaly Respiratory exam: PRESENT: Diminished to auscultation bilaterally. ABSENT: rales, rhonchi, stridor, wheezes Cardiovascular exam: PRESENT: RRR, +S1, +S2. ABSENT: systolic murmur Pulses: PRESENT: normal radial pulses, normal dorsalis pedis pulses GI/Abdominal exam: PRESENT: normal bowel sounds, soft. Obese ABSENT: guarding, mass, tenderness Rectal exam: Deferred Extremities exam: PRESENT: full ROM. ABSENT: calf tenderness, pedal edema Musculoskeletal: PRESENT: full ROM. ABSENT: deformity Neurological exam: PRESENT: alert, Awake, Oriented to person, Oriented to place, Oriented to time, reflexes normal, CN II-XII grossly intact. ABSENT: motor sensory deficit Psychiatric exam: PRESENT: appropriate affect, normal mood. ABSENT: homicidal ideation, suicidal ideation Skin exam: PRESENT: intact, dry, warm. ABSENT: rash Results Laboratory Results: 06/26/19 08:05 06/26/19 08:05 06/25/19 06/25/19 06/25/19 17:06 17:06 17:06 WBC 8.7 RBC 3.31 L Hgb 9.8 L Hct 29.2 L MCV 88 MCH 29.5 MCHC 33.5 RDW 16.4 H Plt Count 316 Seg Neutrophils % 66.2 Lymphocytes % 21.5 Monocytes % 6.7 Eosinophils % 4.8 Basophils % 0.8 Absolute Neutrophils 5.8 Absolute Lymphocytes 1.9 Absolute Monocytes 0.6 Absolute Eosinophils 0.4 Absolute Basophils 0.1 VBG pH 7.30 VBG pCO2 39.8 VBG HCO3 19.0 L VBG Base Excess -7.0 Sodium 129.0 L Potassium 7.0 H* Chloride 88 L Carbon Dioxide 18 L Anion Gap 23 H BUN 75 H Creatinine 10.37 H Est GFR ( Amer) 5 L Est GFR (Non-Af Amer) 4 L Glucose 512 H* Calcium 7.3 L Total Bilirubin 0.5 AST 21 Alkaline Phosphatase 231 H Total Protein 8.2 Albumin 4.5 06/25/19 06/26/19 06/26/19 21:04 08:05 08:05 WBC 9.7 RBC 3.26 L Hgb 9.2 L Hct 28.0 L MCV 86 MCH 28.3 MCHC 33.0 RDW 16.5 H Plt Count 305 Seg Neutrophils % 61.1 Lymphocytes % 25.1 Monocytes % 6.6 Eosinophils % 5.9 Basophils % 1.3 Absolute Neutrophils 5.9 Absolute Lymphocytes 2.4 Absolute Monocytes 0.6 Absolute Eosinophils 0.6 Absolute Basophils 0.1 VBG pH VBG pCO2 VBG HCO3 VBG Base Excess Sodium 134.0 L 136.8 L Potassium 5.9 H D 5.5 H Chloride 91 L 92 L Carbon Dioxide 22 23 Anion Gap 21 H 22 H BUN 82 H 94 H Creatinine 10.51 H 11.47 H Est GFR ( Amer) 5 L 5 L Est GFR (Non-Af Amer) 4 L 4 L Glucose 177 H 128 H Calcium 7.6 L 7.1 L Total Bilirubin AST Alkaline Phosphatase Total Protein Albumin Impressions: Chest X-Ray 06/25/19 16:43 IMPRESSION: CARDIOMEGALY WITH VASCULAR CONGESTION. Assessment & Plan - Diagnosis (1) DKA (diabetic ketoacidoses) Qualifiers: Diabetes mellitus type: type 1 Diabetes mellitus complication detail: without coma Qualified Code(s): E10.10 - Type 1 diabetes mellitus with ketoacidosis without coma Is this a current diagnosis for this admission?: Yes Plan: Currently still on low-dose insulin drip. Her blood sugar is improved. Her acidosis is also improved. Defer further treatment to Dr. Hernandez. (2) Hyperkalemia Is this a current diagnosis for this admission?: Yes Plan: Improved with initial treatment with the insulin drip, calcium gluconate and bicarbonate. This will be taken cared of by dialysis this morning. (3) End stage renal disease on dialysis Is this a current diagnosis for this admission?: Yes Plan: We will do dialysis today for 4 hours, using the patient's AV fistula, with 2 potassium bath, blood flow rate of 450 mL per minute, dialysate flow rate of 800 mL per minute, ultrafiltration 3 to 4 L as tolerated, no heparin and Procrit with 20,000 units during dialysis intravenously. Dialysis prescription disc ussed with her dialysis nurse. Patient will be monitored throughout dialysis treatment. (4) Diabetes mellitus type 1 with complications Is this a current diagnosis for this admission?: Yes (5) Headache Qualifiers: Headache type: unspecified Headache chronicity pattern: acute headache Intractability: not intractable Qualified Code(s): R51 - Headache Is this a current diagnosis for this admission?: Yes (6) Anemia in chronic kidney disease (CKD) Is this a current diagnosis for this admission?: Yes Plan: We will give Epogen during dialysis treatment as necessary. (7) Hypertension Qualifiers: Is this a current diagnosis for this admission?: Yes (8) Morbid obesity Is this a current diagnosis for this admission?: Yes - Notes Notes: Thank you very much for this consultation. We will continue to supervise dialysis while here in the hospital. - Time Time Spent: 50 to 70 Minutes
[2019-06-26] MEDS: OXYCODONE-ACETAMINOPHEN 5-325 MG TABLET PO PRN ×2 (12:58→19:43)
[2019-06-26] MEDS ORDERED: DISPOSABLE IV PRN (13:23)
[2019-06-26] MEDS ORDERED: EPOETIN ALFA EPBX IV PRN (13:23)
[2019-06-26] MEDS ORDERED: DIPHENHYDRAMINE HCL 50 MG/ML VIAL ONE (14:15)
[2019-06-26] MEDS ORDERED: CLONIDINE HCL 0.2 MG TABLET ONE (14:15)
[2019-06-26 17:23] LABS: ANION GAP 14 (5-19); CALCIUM 8.2 mg/dL (8.4-10.2); CARBON DIOXIDE 29 mmol/L (22-30); CHLORIDE 93 mmol/L (98-107); GLUCOSE 145 mg/dL (75-110); POTASSIUM 4.7 mmol/L (3.6-5.0)
[2019-06-26 17:59] LABS: BLOOD UREA NITROGEN 37 mg/dL (7-20)
[2019-06-26] MEDS ORDERED: PATIROMER 8.4 GM SUSP PACKET PO ONE (18:38)
[2019-06-26] MEDS ORDERED: (PENDING PHARMACY ID) (Zolpidem Tartrate [Ambien] 10 MG) PO PRN (18:58)
[2019-06-26] MEDS ORDERED: ALBUTEROL SULFATE HFA (90 MCG/PUFF) 200 PUFF/8.5 GM MDI IH PRN (18:58)
[2019-06-26] MEDS ORDERED: (PENDING PHARMACY ID) (Nifedipine [Nifedipine Er] 90 MG) PO SCH (19:15)
[2019-06-26] MEDS: FUROSEMIDE 80 MG TABLET PO SCH (19:43)
[2019-06-26] MEDS: PAROXETINE HCL 20 MG TABLET PO SCH (21:32)
[2019-06-26] MEDS: ZOLPIDEM TARTRATE 5 MG TABLET PO PRN (21:32)
[2019-06-26] MEDS ORDERED: NIFEDIPINE 30 MG TAB.ER.24 PO ONE (22:00)
--- NOTE | 2019-06-27 01:06 | PDOC H&P ---
History of Present Illness Admission Date/PCP: 06/25/19 22:41 HILARY HERNANDEZ MD Patient complains of: Shortness of breath, weakness History of Present Illness: ERICH GOODMAN is a 34 year old female patient of Dr Hernandez who presented to the ED with complain of generalized weakness, shortness of breath and feeling unwell due to assumed elevated potassium and blood glucose level. She reported that she recently receiving steroid injection for her back pain management and noted elevated blood glucose level. She started that she took her Veltassa due to presumed elevated blood potassium. She is on hemodialysis supplementation therapy on Wednesday, Wednesday and Wednesday. She reported compliance with her schedule recently and despite longer period and more fluid taken out on Wednesday she was still short of breath. She reported compliance with her medication, dietary and fluid restrictions. She reported intermittent headache but denied dizziness. There has been nausea but no significant vomiting. No chest pain or palpitation. No denied any fever or chills. Her initial ED evaluation did revealed chronic kidney disease with hyperkalemia and early EKG changes, hyperglycemia and elevated anion gap metabolic acidosis suggestive of DKA. Attempt was made with regard to transfer to [facility] due to unavailability of immediate hemodialysis service at our facility. Consultation with on duty retail route supervisor at [facility] resulted in trial of Insulin infusion for management of her DKA with resultant improvement in her hyperkalemia that permit her admission to this facility with intent to dialyze this morning. She was advised admission to ICU for further evaluation and management. Her morbidities include Diabetes mellitus type 1, ESRD on hemodialysis supplementation, hypertension, CAD, CHF, Anemia of chronic kidney disease, Migraine headache, depression, hypocalcemia associated seizure, and psoriasis. Past Medical History Cardiac Medical History: Reports: Congestive Heart Failure, Coronary Artery Disease, Hypertension, Heart Murmur Pulmonary Medical History: Reports: Asthma, Pneumonia Neurological Medical History: Reports: Migraine, Seizures - only r/t low calcium Endocrine Medical History: Reports: Diabetes Mellitus Type 1 Renal/ Medical History: Reports: End Stage Renal Disease - On hemodialysis MWF Malignancy Medical History: GI Medical History: Musculoskeltal Medical History: Skin Medical History: Reports: Psoriasis Psychiatric Medical History: Reports: Depression Hematology: Reports: Anemia Infectious Medical History: Past Surgical History Past Surgical History: Reports: Appendectomy, Cholecystectomy, Vascular Surgery - Lt AV Fistula and graft; Rt AV fistula Denies: Hysterectomy Social History Smoking Status: Never Smoker Frequency of Alcohol Use: Occasional Hx Recreational Drug Use: No Drugs: None Hx Prescription Drug Abuse: No - Advance Directive Resuscitation Status: Full Code Family History Family History: Reviewed & Not Pertinent Parental Family History Reviewed: Yes Children Family History Reviewed: Yes Sibling(s) Family History Reviewed.: Yes Medication/Allergy Home Medications: Albuterol Sulfate [Proair Hfa Inhalation Aerosol 8.5 gm Mdi] 2 puff IH Q4HP PRN 06/26/19 Furosemide [Lasix 80 mg Tablet] 80 mg PO DAILY 06/26/19 Nifedipine [Nifedipine ER] 90 mg PO DAILY 06/26/19 Omeprazole 40 mg PO DAILY 06/26/19 Promethazine HCl [Phenergan 25 mg Tablet] 25 mg PO Q8HP PRN 06/26/19 Zolpidem Tartrate [Ambien] 10 mg PO HSP PRN 06/26/19 Paroxetine HCl [Paxil] 80 mg PO QHS 06/27/19 Allergies/Adverse Reactions: aspirin [Aspirin] Allergy (Verified 06/25/19 16:20) Anaphylaxis ciprofloxacin [From Cipro] Allergy (Verified 06/25/19 16:20) Anaphylaxis clindamycin [Clindamycin] Allergy (Verified 06/25/19 16:20) hydrocodone [From Vicodin] Allergy (Verified 06/25/19 16:20) ibuprofen [From Motrin] Allergy (Verified 06/25/19 16:20) Anaphylaxis lidocaine [From Lidoderm] Allergy (Verified 06/25/19 16:20) Generalized rash tramadol HCl [From Ultram] Allergy (Verified 06/25/19 16:20) vancomycin [Vancomycin] Allergy (Verified 06/25/19 16:20) Shortness of Breath nitroglycerin [Nitroglycerin] Adverse Reaction (Intermediate, Verified 06/25/19 16:20) Joint pain Review of Systems Constitutional: PRESENT: weakness Eyes: ABSENT: visual disturbances Ears: ABSENT: hearing changes Nose, Mouth, and Throat: PRESENT: headache(s) Cardiovascular: PRESENT: dyspnea on exertion. ABSENT: chest pain, edema, orthropnea, palpitations Respiratory: PRESENT: dyspnea. ABSENT: cough, hemoptysis Gastrointestinal: PRESENT: nausea. ABSENT: abdominal pain, constipation, diarrhea, hematemesis, hematochezia, vomiting Genitourinary: ABSENT: dysuria, hematuria Musculoskeletal: PRESENT: muscle weakness - generalied Integumentary: ABSENT: rash, wounds Neurological: ABSENT: abnormal gait, abnormal speech, confusion, dizziness, foca l weakness, syncope Psychiatric: ABSENT: anxiety, depression, homidical ideation, suicidal ideation Hematologic/Lymphatic: ABSENT: easy bleeding, easy bruising, lymphadenopathy Allergic/Immunologic: ABSENT: seasonal rhinorrhea Physical Exam Vital Signs: Temp Pulse Resp BP Pulse Ox 98.1 F 89 17 146/89 H 93 06/26/19 03:58 06/26/19 06:00 06/26/19 06:00 06/26/19 06:00 06/26/19 06:00 Intake & Output 06/25/19 06/26/19 06/27/19 06:59 06:59 06:59 Intake Total 6 Balance 6 Weight 121 kg General appearance: PRESENT: morbidly obese Head exam: PRESENT: atraumatic, normocephalic Eye exam: PRESENT: conjunctiva pink, EOMI, PERRLA. ABSENT: scleral icterus Ear exam: PRESENT: normal external ear exam Mouth exam: PRESENT: moist Neck exam: PRESENT: full ROM. ABSENT: carotid bruit, JVD, lymphadenopathy, thyromegaly Respiratory exam: PRESENT: clear to auscultation freddy, decreased breath sounds - at lung bases Cardiovascular exam: PRESENT: RRR, +S1, +S2. ABSENT: diastolic murmur, rubs, systolic murmur Pulses: PRESENT: other - Right AV fistula thrill Vascular exam: ABSENT: pallor GI/Abdominal exam: PRESENT: normal bowel sounds, soft. ABSENT: distended, guarding, mass, organolmegaly, rebound, tenderness Rectal exam: PRESENT: deferred Extremities exam: ABSENT: pedal edema Musculoskeletal exam: PRESENT: ambulatory Neurological exam: PRESENT: alert, awake, oriented to person, oriented to place, oriented to time, oriented to situation, CN II-XII grossly intact. ABSENT: motor sensory deficit Psychiatric exam: PRESENT: appropriate affect, normal mood. ABSENT: homicidal ideation, suicidal ideation Skin exam: PRESENT: dry, warm Results Laboratory Results: 06/25/19 06/25/19 06/25/19 17:06 17:06 17:06 WBC 8.7 RBC 3.31 L Hgb 9.8 L Hct 29.2 L MCV 88 MCH 29.5 MCHC 33.5 RDW 16.4 H Plt Count 316 Seg Neutrophils % 66.2 Lymphocytes % 21.5 Monocytes % 6.7 Eosinophils % 4.8 Basophils % 0.8 Absolute Neutrophils 5.8 Absolute Lymphocytes 1.9 Absolute Monocytes 0.6 Absolute Eosinophils 0.4 Absolute Basophils 0.1 VBG pH 7.30 VBG pCO2 39.8 VBG HCO3 19.0 L VBG Base Excess -7.0 Sodium 129.0 L Potassium 7.0 H* Chloride 88 L Carbon Dioxide 18 L Anion Gap 23 H BUN 75 H Creatinine 10.37 H Est GFR ( Amer) 5 L Est GFR (Non-Af Amer) 4 L Glucose 512 H* Calcium 7.3 L Total Bilirubin 0.5 AST 21 Alkaline Phosphatase 231 H Total Protein 8.2 Albumin 4.5 06/25/19 21:04 WBC RBC Hgb Hct MCV MCH MCHC RDW Plt Count Seg Neutrophils % Lymphocytes % Monocytes % Eosinophils % Basophils % Absolute Neutrophils Absolute Lymphocytes Absolute Monocytes Absolute Eosinophils Absolute Basophils VBG pH VBG pCO2 VBG HCO3 VBG Base Excess Sodium 134.0 L Potassium 5.9 H D Chloride 91 L Carbon Dioxide 22 Anion Gap 21 H BUN 82 H Creatinine 10.51 H Est GFR ( Amer) 5 L Est GFR (Non-Af Amer) 4 L Glucose 177 H Calcium 7.6 L Total Bilirubin AST Alkaline Phosphatase Total Protein Albumin Impressions: Chest X-Ray 06/25/19 16:43 IMPRESSION: CARDIOMEGALY WITH VASCULAR CONGESTION. Assessment & Plan - Diagnosis (1) DKA (diabetic ketoacidoses) Qualifiers: Diabetes mellitus type: type 1 Diabetes mellitus complication detail: without coma Qualified Code(s): E10.10 - Type 1 diabetes mellitus with ketoacidosis without coma Is this a current diagnosis for this admission?: Yes Plan: See admitting physicians orders for details about care plan. (2) End stage renal disease on dialysis Is this a current diagnosis for this admission?: Yes Plan: See admitting physicians orders for details about care plan. (3) Hyperkalemia Is this a current diagnosis for this admission?: Yes Plan: See admitting physicians orders for details about care plan. (4) Nausea Is this a current diagnosis for this admission?: Yes Plan: See admitting physicians orders for details about care plan. (5) Diabetes mellitus type 1 with complications Is this a current diagnosis for this admission?: Yes Plan: See admitting physicians orders for details about care plan. (6) Hypertension Qualifiers: Hypertension type: unspecified Qualified Code(s): I10 - Essential (primary) hypertension Is this a current diagnosis for this admission?: Yes Plan: See admitting physicians orders for details about care plan. (7) Chronic diastolic (congestive) heart failure Is this a current diagnosis for this admission?: Yes Plan: See admitting physicians orders for details about care plan. (8) Anemia in chronic kidney disease (CKD) Qualifiers: Chronic kidney disease stage: on chronic dialysis Qualified Code(s): N18.6 - End stage renal disease; D63.1 - Anemia in chronic kidney disease; Z99.2 - Dependence on renal dialysis Is this a current diagnosis for this admission?: Yes Plan: See admitting physicians orders for details about care plan. (9) Depression Qualifiers: Depression Type: major depressive disorder Is this a current diagnosis for this admission?: Yes Plan: See admitting physicians orders for details about care plan. (10) Morbid obesity due to excess calories Is this a current diagnosis for this admission?: Yes Plan: See admitting physicians orders for details about care plan. - Time Time Spent: 50 to 70 Minutes Medications reviewed and adjusted accordingly: Yes Anticipated discharge: Home Within: Other - Inpatient Certification Based on my medical assessment, after consideration of the patient's comorbidities, presenting symptoms, or acuity I expect that the services needed warrant INPATIENT care.: Yes I certify that my determination is in accordance with my understanding of Medicare's requirements for reasonable and necessary INPATIENT services [42 CFR 412.3e].: Yes Medical Necessity: Significant Comorbidiites Make Outpatient Treatment Too Risky, Need Close Monitoring Due to Risk of Patient Decompensation, Need For Continuous Telemetry Monitoring, Risk of Complication if Not Cared For in Hospital, Risk of Diagnosis Which Will Require Inpatient Eval/Care/Monitoring Post Hospital Care: D/C Uniform Room Attendant Documentation - Plan Summary Plan Summary: See admitting physicians orders for details about care plan.
[2019-06-27] MEDS: OXYCODONE-ACETAMINOPHEN 5-325 MG TABLET PO PRN ×5 (02:28→23:25)
[2019-06-27] MEDS: INSULIN, REGULAR 100 UNIT/100 ML NORMAL SALINE IV PRN ×2 (04:29)
[2019-06-27] MEDS: PROMETHAZINE HCL 25 MG TABLET PO PRN ×2 (05:19→22:17)
[2019-06-27] MEDS ORDERED: CLONIDINE HCL 0.1 MG TABLET PO SCH (08:15)
[2019-06-27] MEDS ORDERED: MORPHINE SULFATE 10 MG/ML INJ IV ONE (09:00)
[2019-06-27] MEDS: CARVEDILOL 12.5 MG TABLET PO SCH ×2 (10:02→22:17)
[2019-06-27] MEDS: NIFEDIPINE 30 MG TAB.ER.24 PO SCH (10:03)
[2019-06-27] MEDS: INSULIN GLARGINE,HUM.REC.ANLOG 1,000 UNIT/10 ML VIAL SUBCUT SCH ×2 (10:05→22:18)
[2019-06-27] MEDS: FUROSEMIDE 80 MG TABLET PO SCH (11:06)
[2019-06-27] MEDS: INSULIN LISPRO 100 UNIT/ML 3 ML VIAL SUBCUT SCH ×3 (11:09→22:17)
[2019-06-27] MEDS: CLONIDINE HCL 0.1 MG TABLET PO SCH ×2 (15:43→22:17)
[2019-06-27] MEDS ORDERED: DIPHENHYDRAMINE HCL 50 MG/ML VIAL IV PRN (16:50)
--- NOTE | 2019-06-27 18:24 | PDOC PROGRESS REPORT ---
Subjective Progress Note for:: 06/27/19 Subjective:: Patient complain about significant headache and requesting for medication to relief her pain. No dizziness, nausea of vomiting. No chest pain or difficulty with breathing. Blood pressure remain elevated. She reported taking Clonidine 0.1 mg p.o tid , Carvedilol 12.5 mg po bid, Levemir insulin 35 units SC bid and Novolog insulin sliding scale at home prior to her current admission. Reason For Visit: ESRD, HYPERKALEMIA, DKA Physical Exam Vital Signs: Temp Pulse Resp BP Pulse Ox 98.8 F 99 23 H 157/84 H 100 06/27/19 06:00 06/27/19 02:00 06/27/19 06:29 06/27/19 06:29 06/27/19 06:29 Intake & Output 06/26/19 06/27/19 06/28/19 06:59 06:59 06:59 Intake Total 6 1168 10 Output Total 5200 Balance 6 -4032 10 Weight 121 kg 116.2 kg General appearance: PRESENT: no acute distress, morbidly obese Head exam: PRESENT: atraumatic, normocephalic Eye exam: PRESENT: conjunctiva pink, EOMI, PERRLA. ABSENT: scleral icterus Ear exam: PRESENT: normal external ear exam Mouth exam: PRESENT: moist Respiratory exam: PRESENT: clear to auscultation freddy, decreased breath sounds - at lung bases Cardiovascular exam: PRESENT: RRR. ABSENT: diastolic murmur, rubs, systolic murmur Vascular exam: ABSENT: pallor GI/Abdominal exam: PRESENT: normal bowel sounds, soft. ABSENT: distended, guarding, mass, organolmegaly, rebound, tenderness Extremities exam: ABSENT: pedal edema Musculoskeletal exam: PRESENT: normal inspection - except for her dialysis fistulas. ABSENT: tenderness Neurological exam: PRESENT: alert, awake, oriented to person, oriented to place, oriented to time, oriented to situation, CN II-XII grossly intact. ABSENT: motor sensory deficit Psychiatric exam: PRESENT: appropriate affect, normal mood. ABSENT: homicidal ideation, suicidal ideation Skin exam: PRESENT: dry, warm Results Laboratory Results: 06/26/19 08:05 06/26/19 16:27 06/26/19 06/26/19 06/26/19 08:05 08:05 16:27 WBC 9.7 RBC 3.26 L Hgb 9.2 L Hct 28.0 L MCV 86 MCH 28.3 MCHC 33.0 RDW 16.5 H Plt Count 305 Seg Neutrophils % 61.1 Lymphocytes % 25.1 Monocytes % 6.6 Eosinophils % 5.9 Basophils % 1.3 Absolute Neutrophils 5.9 Absolute Lymphocytes 2.4 Absolute Monocytes 0.6 Absolute Eosinophils 0.6 Absolute Basophils 0.1 Sodium 136.8 L 136.2 L Potassium 5.5 H 4.7 Chloride 92 L 93 L Carbon Dioxide 23 29 Anion Gap 22 H 14 BUN 94 H 37 H D Creatinine 11.47 H 6.02 H Est GFR ( Amer) 5 L 10 L Est GFR (Non-Af Amer) 4 L 8 L Glucose 128 H 145 H Calcium 7.1 L 8.2 L Impressions: Chest X-Ray 06/25/19 16:43 IMPRESSION: CARDIOMEGALY WITH VASCULAR CONGESTION. Assessment & Plan - Diagnosis (1) DKA (diabetic ketoacidoses) Qualifiers: Diabetes mellitus type: type 1 Diabetes mellitus complication detail: without coma Qualified Code(s): E10.10 - Type 1 diabetes mellitus with ketoacidosis without coma Is this a current diagnosis for this admission?: Yes (2) End stage renal disease on dialysis Is this a current diagnosis for this admission?: Yes (3) Hyperkalemia Is this a current diagnosis for this admission?: Yes (4) Nausea Is this a current diagnosis for this admission?: Yes (5) Diabetes mellitus type 1 with complications Is this a current diagnosis for this admission?: Yes (6) Hypertension Qualifiers: Hypertension type: unspecified Qualified Code(s): I10 - Essential (primary) hypertension Is this a current diagnosis for this admission?: Yes (7) Chronic diastolic (congestive) heart failure Is this a current diagnosis for this admission?: Yes (8) Anemia in chronic kidney disease (CKD) Qualifiers: Chronic kidney disease stage: on chronic dialysis Qualified Code(s): N18.6 - End stage renal disease; D63.1 - Anemia in chronic kidney disease; Z99.2 - Dependence on renal dialysis Is this a current diagnosis for this admission?: Yes (9) Depression Qualifiers: Depression Type: major depressive disorder Is this a current diagnosis for this admission?: Yes (10) Morbid obesity due to excess calories Is this a current diagnosis for this admission?: Yes - Time Time Spent with patient: 35 or more minutes Medications reviewed and adjusted accordingly: Yes Anticipated discharge: Home with Homehealth Within: Other - Inpatient Certification Based on my medical assessment, after consideration of the patient's comorbiditi es, presenting symptoms, or acuity I expect that the services needed warrant INPATIENT care.: Yes I certify that my determination is in accordance with my understanding of [facility]'s requirements for reasonable and necessary INPATIENT services [42 CFR 412.3e].: Yes Medical Necessity: Significant Comorbidiites Make Outpatient Treatment Too Risky, Need Close Monitoring Due to Risk of Patient Decompensation, Need For Continuous Telemetry Monitoring, Need for Nebulizer Therapy and Monitoring of Response, Risk of Complication if Not Cared For in Hospital, Risk of Diagnosis Which Will Require Inpatient Eval/Care/Monitoring Post Hospital Care: D/C Licensed Midwife Documentation - Plan Summary Plan Summary: See attending physician orders for details about care plan.
[2019-06-27] MEDS: ZOLPIDEM TARTRATE 5 MG TABLET PO PRN (22:17)
[2019-06-27] MEDS: PAROXETINE HCL 20 MG TABLET PO SCH (22:17)
[2019-06-28] MEDS ORDERED: EPOETIN ALFA-EPBX 10,000 UNIT/ML VIAL (RENAL) IV PRN (05:00)
[2019-06-28] MEDS ORDERED: HEPARIN SOD (PORCINE) 1,000 UNIT/ML 10 ML VIAL IV PRN (05:00)
[2019-06-28] MEDS ORDERED: EPOETIN ALFA INJ 20000 UNIT/1 ML VIAL (RENAL) IV PRN (05:00)
[2019-06-28 05:58] LABS: HEMATOCRIT 28.1 % (36.0-47.0); HEMOGLOBIN 9.2 g/dL (12.0-15.5); MEAN CORPUSCULAR HEMOGLOBIN 28.6 pg (27.0-33.4); MEAN CORPUSCULAR HGB CONC 32.6 g/dL (32.0-36.0); MEAN CORPUSCULAR VOLUME 88 fl (80-97); PLATELET COUNT 284 10^3/uL (150-450); RED CELL DISTRIBUTION WIDTH 16.7 % (11.5-14.0); WHITE BLOOD COUNT 8.4 10^3/uL (4.0-10.5)
[2019-06-28 06:18] LABS: BLOOD UREA NITROGEN 70 mg/dL (7-20); GLUCOSE 321 mg/dL (75-110)
[2019-06-28 06:24] LABS: CARBON DIOXIDE 23 mmol/L (22-30); CHLORIDE 89 mmol/L (98-107)
[2019-06-28 06:25] LABS: ANION GAP 21 (5-19)
[2019-06-28 06:26] LABS: CALCIUM 6.9 mg/dL (8.4-10.2); POTASSIUM 6.1 mmol/L (3.6-5.0)
[2019-06-28] MEDS: CLONIDINE HCL 0.1 MG TABLET PO SCH ×3 (06:55→21:41)
[2019-06-28] MEDS: PROMETHAZINE HCL 25 MG TABLET PO PRN ×2 (06:57→21:26)
[2019-06-28] MEDS: OXYCODONE-ACETAMINOPHEN 5-325 MG TABLET PO PRN ×2 (06:57→23:15)
[2019-06-28] MEDS: INSULIN LISPRO 100 UNIT/ML 3 ML VIAL SUBCUT SCH ×4 (07:39→21:43)
[2019-06-28] MEDS: NIFEDIPINE 30 MG TAB.ER.24 PO SCH (09:19)
[2019-06-28] MEDS: FUROSEMIDE 80 MG TABLET PO SCH (09:19)
[2019-06-28] MEDS: CARVEDILOL 12.5 MG TABLET PO SCH ×2 (09:20→21:42)
[2019-06-28] MEDS: INSULIN GLARGINE,HUM.REC.ANLOG 1,000 UNIT/10 ML VIAL SUBCUT SCH ×2 (09:20→21:43)
--- NOTE | 2019-06-28 16:31 | PDOC PROGRESS REPORT ---
Subjective Progress Note for:: 06/28/19 Subjective:: Patient seen during dialysis treatment this afternoon. She is sleepy but arousable. She denies any shortness of breath no chest pain nor any other complaints. She is tolerating dialysis at this time. Patient still gained significant amount of weight in between dialysis treatment. Reason For Visit: ESRD, HYPERKALEMIA, DKA Physical Exam Vital Signs: Temp Pulse Resp BP Pulse Ox 98.1 F 82 18 156/94 H 97 06/28/19 08:09 06/28/19 14:00 06/28/19 08:09 06/28/19 08:09 06/28/19 08:09 Intake & Output 06/27/19 06/28/19 06/29/19 06:59 06:59 06:59 Intake Total 1168 460 Output Total 5200 0 Balance -4032 460 Weight 116.2 kg 121 kg Vitals during dialysis: Blood pressure 137/48, heart rate of 84, blood flow rate of 400 mL/min and dialysate flow rate of 800 mL/min. Exam: General appearance: PRESENT: no acute distress, cooperative, well-developed, well-nourished; morbidly obese Head exam: PRESENT: atraumatic, normocephalic Eye exam: PRESENT: conjunctiva pale, PERRLA. ABSENT: scleral icterus Neck exam: ABSENT: JVD Respiratory exam: PRESENT: Diminished breath sounds. ABSENT: crackles, rales, rhonchi, unlabored, wheezes Cardiovascular exam: PRESENT: Regular rate rhythm -+S1, +S2. ABSENT: diastolic murmur, systolic murmur GI/Abdominal exam: PRESENT: normal bowel sounds, soft. ABSENT: guarding, mass, tenderness Extremities exam: ABSENT: No edema Neurological exam: PRESENT: alert, awake, oriented to person, place and time. Skin exam: PRESENT: dry, warm, Results Laboratory Results: 06/28/19 05:01 06/28/19 05:01 06/28/19 06/28/19 05:01 05:01 WBC 8.4 RBC 3.20 L Hgb 9.2 L Hct 28.1 L MCV 88 MCH 28.6 MCHC 32.6 RDW 16.7 H Plt Count 284 Sodium 132.5 L Potassium 6.1 H* Chloride 89 L Carbon Dioxide 23 Anion Gap 21 H BUN 70 H Creatinine 10.13 H Est GFR ( Amer) 5 L Est GFR (Non-Af Amer) 4 L Glucose 321 H Calcium 6.9 L* Impressions: Chest X-Ray 06/25/19 16:43 IMPRESSION: CARDIOMEGALY WITH VASCULAR CONGESTION. Assessment & Plan - Diagnosis (1) End stage renal disease on dialysis Is this a current diagnosis for this admission?: Yes Plan: We will do dialysis today for 4 hours, using the patient's AV fistula, with 2 potassium bath and 3 calcium bath, blood flow rate of 400 mL per minute, dialysate flow rate of 800 mL per minute, ultrafiltration 5 L as tolerated, no heparin and Procrit with 10,000 units during dialysis intravenously. Patient will be monitored throughout dialysis treatment. (2) Hyperkalemia Is this a current diagnosis for this admission?: Yes Plan: Dialysis should improve this. (3) Anemia in chronic kidney disease (CKD) Qualifiers: Chronic kidney disease stage: on chronic dialysis Qualified Code(s): N18.6 - End stage renal disease; D63.1 - Anemia in chronic kidney disease; Z99.2 - Dependence on renal dialysis Is this a current diagnosis for this admission?: Yes Plan: Procrit to be given during dialysis. (4) Hypocalcemia Is this a current diagnosis for this admission?: Yes Plan: We will give high calcium bath on dialysis. We will check phosphorus, vitamin D and PTH in the morning. (5) DKA (diabetic ketoacidoses) Qualifiers: Diabetes mellitus type: type 1 Diabetes mellitus complication detail: without coma Qualified Code(s): E10.10 - Type 1 diabetes mellitus with ketoacidosis without coma Is this a current diagnosis for this admission?: Yes Plan: Resolved. (6) Hypertension Qualifiers: Is this a current diagnosis for this admission?: Yes Plan: Labile. (7) Diabetes mellitus type 1 with complications Is this a current diagnosis for this admission?: Yes (8) Headache Qualifiers: Headache type: unspecified Headache chronicity pattern: acute headache Intractability: not intractable Qualified Code(s): R51 - Headache Is this a current diagnosis for this admission?: Yes (9) Morbid obesity Is this a current diagnosis for this admission?: Yes - Notes Notes: From nephrology standpoint I think she can be safely discharged home anytime after today. - Time Time with patient: 15-25 minutes
--- NOTE | 2019-06-28 20:14 | PDOC PROGRESS REPORT ---
Subjective Progress Note for:: 06/28/19 Subjective:: Patient denied any chest pain or difficult with breathing. No abdominal pain, nausea of vomiting. No headache or dizziness. She reported feeling better post dialysis today. Reason For Visit: ESRD, HYPERKALEMIA, DKA Physical Exam Vital Signs: Temp Pulse Resp BP Pulse Ox 98.1 F 82 18 156/94 H 97 06/28/19 08:09 06/28/19 14:00 06/28/19 08:09 06/28/19 08:09 06/28/19 08:09 Intake & Output 06/27/19 06/28/19 06/29/19 06:59 06:59 06:59 Intake Total 1168 460 Output Total 5200 0 5200 Balance -4032 460 -5200 Weight 116.2 kg 121 kg Physical Exam: General appearance: PRESENT: no acute distress, morbidly obese Head exam: PRESENT: atraumatic, normocephalic Eye exam: PRESENT: conjunctiva pink, EOMI, PERRLA. ABSENT: pallor, scleral icterus Ear exam: PRESENT: normal external ear exam Mouth exam: PRESENT: moist Respiratory exam: PRESENT: clear to auscultation freddy, decreased breath sounds - at lung bases Cardiovascular exam: PRESENT: RRR. ABSENT: diastolic murmur, rubs, systolic murmur GI/Abdominal exam: PRESENT: normal bowel sounds, soft. ABSENT: distended, guarding, mass, organomegaly, rebound, tenderness Extremities exam: ABSENT: pedal edema Musculoskeletal exam: PRESENT: normal inspection - except for her dialysis fistulas. ABSENT: tenderness Neurological exam: PRESENT: alert, awake, oriented to person, oriented to place, oriented to time, oriented to situation, CN II-XII grossly intact. ABSENT: motor sensory deficit Psychiatric exam: PRESENT: appropriate affect, normal mood. ABSENT: homicidal ideation, suicidal ideation Skin exam: PRESENT: dry, warm Results Laboratory Results: 06/28/19 05:01 06/28/19 05:01 06/28/19 06/28/19 05:01 05:01 WBC 8.4 RBC 3.20 L Hgb 9.2 L Hct 28.1 L MCV 88 MCH 28.6 MCHC 32.6 RDW 16.7 H Plt Count 284 Sodium 132.5 L Potassium 6.1 H* Chloride 89 L Carbon Dioxide 23 Anion Gap 21 H BUN 70 H Creatinine 10.13 H Est GFR ( Amer) 5 L Est GFR (Non-Af Amer) 4 L Glucose 321 H Calcium 6.9 L* Impressions: Chest X-Ray 06/25/19 16:43 IMPRESSION: CARDIOMEGALY WITH VASCULAR CONGESTION. Assessment & Plan - Diagnosis (1) DKA (diabetic ketoacidoses) Qualifiers: Diabetes mellitus type: type 1 Diabetes mellitus complication detail: without coma Qualified Code(s): E10.10 - Type 1 diabetes mellitus with ketoacidosis without coma Is this a current diagnosis for this admission?: Yes (2) End stage renal disease on dialysis Is this a current diagnosis for this admission?: Yes (3) Hyperkalemia Is this a current diagnosis for this admission?: Yes (4) Nausea Is this a current diagnosis for this admission?: Yes (5) Diabetes mellitus type 1 with complications Is this a current diagnosis for this admission?: Yes (6) Hypertension Qualifiers: Hypertension type: unspecified Qualified Code(s): I10 - Essential (primary) hypertension Is this a current diagnosis for this admission?: Yes (7) Chronic diastolic (congestive) heart failure Is this a current diagnosis for this admission?: Yes (8) Anemia in chronic kidney disease (CKD) Qualifiers: Chronic kidney disease stage: on chronic dialysis Qualified Code(s): N18.6 - End stage renal disease; D63.1 - Anemia in chronic kidney disease; Z99.2 - Dependence on renal dialysis Is this a current diagnosis for this admission?: Yes (9) Depression Qualifiers: Depression Type: major depressive disorder Is this a current diagnosis for this admission?: Yes (10) Morbid obesity due to excess calories Is this a current diagnosis for this admission?: Yes - Time Time Spent with patient: 25-34 minutes Medications reviewed and adjusted accordingly: Yes Anticipated discharge: Home Within: Other - Inpatient Certification Based on my medical assessment, after consideration of the patient's comorbidities, presenting symptoms, or acuity I expect that the services needed warrant INPATIENT care.: Yes I certify that my determination is in accordance with my understanding of Medicare's requirements for reasonable and necessary INPATIENT services [42 CFR 412.3e].: Yes Medical Necessity: Significant Comorbidiites Make Outpatient Treatment Too Risky, Need Close Monitoring Due to Risk of Patient Decompensation, Need For Continuous Telemetry Monitoring, Risk of Complication if Not Cared For in Hospital, Risk of Diagnosis Which Will Require Inpatient Eval/Care/Monitoring 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 Possible discharge to outpatient dialysis tomorrow.
[2019-06-28] MEDS: PAROXETINE HCL 20 MG TABLET PO SCH (21:42)
[2019-06-29] MEDS: CLONIDINE HCL 0.1 MG TABLET PO SCH ×2 (05:22→13:38)
[2019-06-29 06:02] LABS: HEMATOCRIT 32.2 % (36.0-47.0); HEMOGLOBIN 10.5 g/dL (12.0-15.5); MEAN CORPUSCULAR HEMOGLOBIN 28.6 pg (27.0-33.4); MEAN CORPUSCULAR HGB CONC 32.5 g/dL (32.0-36.0); MEAN CORPUSCULAR VOLUME 88 fl (80-97); PLATELET COUNT 307 10^3/uL (150-450); RED BLOOD COUNT 3.66 10^6/uL (3.72-5.28); RED CELL DISTRIBUTION WIDTH 16.4 % (11.5-14.0); WHITE BLOOD COUNT 8.2 10^3/uL (4.0-10.5)
[2019-06-29 06:16] LABS: ANION GAP 18 (5-19); BLOOD UREA NITROGEN 49 mg/dL (7-20); CARBON DIOXIDE 25 mmol/L (22-30); CHLORIDE 91 mmol/L (98-107); GLUCOSE 239 mg/dL (75-110); PHOSPHORUS 8.1 mg/dL (2.5-4.5); POTASSIUM 5.4 mmol/L (3.6-5.0)
[2019-06-29] MEDS: OXYCODONE-ACETAMINOPHEN 5-325 MG TABLET PO PRN ×2 (07:27→13:39)
[2019-06-29] MEDS: INSULIN LISPRO 100 UNIT/ML 3 ML VIAL SUBCUT SCH ×3 (08:27→16:26)
[2019-06-29] MEDS: NIFEDIPINE 30 MG TAB.ER.24 PO SCH (09:24)
[2019-06-29] MEDS: CARVEDILOL 12.5 MG TABLET PO SCH (09:24)
[2019-06-29] MEDS: FUROSEMIDE 80 MG TABLET PO SCH (09:24)
[2019-06-29] MEDS: INSULIN GLARGINE,HUM.REC.ANLOG 1,000 UNIT/10 ML VIAL SUBCUT SCH (09:26)
[2019-06-29 13:35] VITALS: BP 144/76
--- NOTE | 2019-06-29 14:45 | PDOC DISCHARGE SUMMARY ---
General - Admit/Disc Date/PCP Admission Date/Primary Care Provider: 06/25/19 22:41 HILARY HERNANDEZ MD Discharge Date: 06/29/19 - Discharge Diagnosis (1) DKA (diabetic ketoacidoses) Is this a current diagnosis for this admission?: Yes (2) End stage renal disease on dialysis Is this a current diagnosis for this admission?: Yes (3) Hyperkalemia Is this a current diagnosis for this admission?: Yes (4) Nausea Is this a current diagnosis for this admission?: Yes (5) Diabetes mellitus type 1 with complications Is this a current diagnosis for this admission?: Yes (6) Hypertension Is this a current diagnosis for this admission?: Yes (7) Chronic diastolic (congestive) heart failure Is this a current diagnosis for this admission?: Yes (8) Anemia in chronic kidney disease (CKD) Is this a current diagnosis for this admission?: Yes (9) Depression Is this a current diagnosis for this admission?: Yes (10) Morbid obesity due to excess calories Is this a current diagnosis for this admission?: Yes - Additional Information Resuscitation Status: Full Code Discharge Diet: Cardiac, Diabetic, Other (Comments) - Dialysis diet Discharge Activity: Activity As Tolerated Home Medications: Albuterol Sulfate [Proair HFA Inhalation Aerosol 8.5 gm MDI] 2 puff IH Q4HP PRN 06/26/19 Furosemide [Lasix 80 mg Tablet] 80 mg PO DAILY 06/26/19 Nifedipine [Nifedipine ER] 90 mg PO DAILY 06/26/19 Omeprazole 40 mg PO DAILY 06/26/19 Promethazine HCl [Phenergan 25 mg Tablet] 25 mg PO Q8HP PRN 06/26/19 Zolpidem Tartrate [Ambien] 10 mg PO HSP PRN 06/26/19 Paroxetine HCl [Paxil] 80 mg PO QHS 06/27/19 Carvedilol [Coreg 12.5 mg Tablet] 12.5 mg PO Q12 tablet 06/29/19 Clonidine HCl [Catapres 0.1 mg Tablet] 0.1 mg PO Q8 tablet 06/29/19 Insulin Glargine,Hum.rec.anlog [Lantus Insulin 100 Unit/1 ml 10 ml] 35 unit SUBCUT Q12 unit 06/29/19 Insulin Lispro [Humalog Insulin (Lispro) 100 unit/mL] 0 - 12 unit SUBCUT ACHS unit 06/29/19 History of Present Illness Patient complains of: Shortness of breath, General unwell History of Present Illness: ERICH GOODMAN is a 34 year old female patient of Dr Hernandez who presented to the ED with complain of generalized weakness, shortness of breath and feeling unwell due to assumed elevated potassium and blood glucose level. She reported that she recently receiving steroid injection for her back pain management and noted elevated blood glucose level. She started that she took her Velt[place] due to presumed elevated blood potassium. She is on hemodialysis supplementation therapy on Wednesday, Wednesday and Wednesday. She reported compliance with her schedule recently and despite longer period and more fluid taken out on Wednesday she was still short of breath. She reported compliance with her medication, dietary and fluid restrictions. She reported intermittent headache but denied dizziness. There has been nausea but no significant vomiting. No chest pain or palpitation. No denied any fever or chills. Her initial ED evaluation did revealed chronic kidney disease with hyperkalemia and early EKG changes, hypergl ycemia and elevated anion gap metabolic acidosis suggestive of DKA. Attempt was made with regard to transfer to [facility] due to unavailability of immediate hemodialysis service at our facility. Consultation with on duty asphalt tar and gravel roofer at [facility] resulted in trial of Insulin infusion for management of her DKA with resultant improvement in her hyperkalemia that permit her admission to this facility with intent to dialyze this morning. She was advised admission to ICU for further evaluation and management. Her morbidities include Diabetes mellitus type 1, hypertension, , ESRD on hemodialysis supplementation, CAD, CHF, Anemia of chronic kidney disease, Migraine headache, depression, hypocalcemia associated seizure, and psoriasis. Hospital Course Hospital Course: She was admitted to ICU for DKA and hyperkalemia with ESRD with dialysis supplementation. She was managed with Insulin infusion and eventually had hemodialysis intervention. Her symptoms did resolved with significant improvement in her hyperkalemia and hyperglycemia. She will be discharged to outpatient hemodialysis schedule on Wednesday, Wednesday and Wednesday. She will follow up with Dr. Hernandez and her nephrology team for further management. Physical Exam Vital Signs: Temp Pulse Resp BP Pulse Ox 98.3 F 80 20 154/72 H 100 06/29/19 07:21 06/29/19 07:21 06/29/19 07:21 06/29/19 07:21 06/29/19 07:21 Intake & Output 06/28/19 06/29/19 06/30/19 06:59 06:59 06:59 Intake Total 460 820 Output Total 0 5200 Balance 460 -4380 Weight 121 kg 117.3 kg Physical Exam: General appearance: PRESENT: no acute distress, morbidly obese Head exam: PRESENT: atraumatic, normocephalic Eye exam: PRESENT: conjunctiva pink, EOMI, PERRLA. ABSENT: pallor, scleral icterus Ear exam: PRESENT: normal external ear exam Mouth exam: PRESENT: moist Respiratory exam: PRESENT: clear to auscultation freddy, decreased breath sounds - at lung bases Cardiovascular exam: PRESENT: RRR. ABSENT: diastolic murmur, rubs, systolic m urmur GI/Abdominal exam: PRESENT: normal bowel sounds, soft. ABSENT: distended, guarding, mass, organomegaly, rebound, tenderness Extremities exam: ABSENT: pedal edema Musculoskeletal exam: PRESENT: normal inspection - except for her dialysis fistulas. ABSENT: tenderness Neurological exam: PRESENT: alert, awake, oriented to person, oriented to place, oriented to time, oriented to situation, CN II-XII grossly intact. ABSENT: motor sensory deficit Psychiatric exam: PRESENT: appropriate affect, normal mood. ABSENT: homicidal ideation, suicidal ideation Skin exam: PRESENT: dry, warm Results Laboratory Results: 06/29/19 05:36 06/29/19 05:36 06/29/19 06/29/19 06/29/19 05:36 05:36 05:36 WBC 8.2 RBC 3.66 L Hgb 10.5 L Hct 32.2 L MCV 88 MCH 28.6 MCHC 32.5 RDW 16.4 H Plt Count 307 Sodium 134.2 L Potassium 5.4 H Chloride 91 L Carbon Dioxide 25 Anion Gap 18 BUN 49 H Creatinine 7.53 H Est GFR ( Amer) 8 L Est GFR (Non-Af Amer) 6 L Glucose 239 H Calcium 8.0 L Phosphorus 8.1 H PTH Intact 1111.0 H Impressions: Chest X-Ray 06/25/19 16:43 IMPRESSION: CARDIOMEGALY WITH VASCULAR CONGESTION. Qualifiers - * PATIENT BEING DISCHARGED WITH ANY OF THE FOLLOWING DIAGNOSIS: No Acute Heart Failure - Is this a Heart Failure Patient?: No Plan Discharge Plan: D/C home today with routine outpatient dialysis schedule. SHe will follow up with Dr Hernandez and her nephrology team as instructed upon discharge.
== END 2019-06-29 16:51 | disposition home or self-care (01) | DRG 637 ==
LOC: ER 16:19 → EH 22:41 → ICU 06-26 01:54 → 3N 06-27 17:42
PROVIDERS: ADMIT Internal Medicine Geriatric Medicine; ATTEND Internal Medicine Geriatric Medicine
PROC: 5A1D70Z Performance of Urinary Filtration, Intermittent, Less than 6 Hours Per Day (ICD-10-PCS; 2019-06-26)
PROC: 5A1D70Z Performance of Urinary Filtration, Intermittent, Less than 6 Hours Per Day (ICD-10-PCS; principal; 2019-06-28)
DX: E10.10 Type 1 diabetes mellitus with ketoacidosis without coma (principal); N18.6 End stage renal disease; I13.2 Hypertensive heart and chronic kidney disease with heart failure and with stage 5 chronic kidney disease, or end stage renal disease; I50.32 Chronic diastolic (congestive) heart failure; N25.81 Secondary hyperparathyroidism of renal origin; E87.5 Hyperkalemia; E10.22 Type 1 diabetes mellitus with diabetic chronic kidney disease; D63.1 Anemia in chronic kidney disease; Z99.2 Dependence on renal dialysis; L40.9 Psoriasis, unspecified; E10.21 Type 1 diabetes mellitus with diabetic nephropathy; E10.319 Type 1 diabetes mellitus with unspecified diabetic retinopathy without macular edema; E10.43 Type 1 diabetes mellitus with diabetic autonomic (poly)neuropathy; G89.29 Other chronic pain; Z79.4 Long term (current) use of insulin; M54.9 Dorsalgia, unspecified; G43.909 Migraine, unspecified, not intractable, without status migrainosus; I25.10 Atherosclerotic heart disease of native coronary artery without angina pectoris; F32.9 Major depressive disorder, single episode, unspecified; J45.909 Unspecified asthma, uncomplicated; E66.01 Morbid (severe) obesity due to excess calories; E83.51 Hypocalcemia; E83.39 Other disorders of phosphorus metabolism; Z90.49 Acquired absence of other specified parts of digestive tract; Z88.1 Allergy status to other antibiotic agents; Z88.6 Allergy status to analgesic agent; Z79.899 Other long term (current) drug therapy; Z79.51 Long term (current) use of inhaled steroids
CPT/HCPCS: 36415; 71045; 80048; 80053; 82803; 82962; 83970; 84100; 85025; 85027; 93005; 93010; 96374; 99153; 99285; J0610; J1170; J1200; J1644; J1815; J2270; J2405; J3490; Q5105

== ENCOUNTER 2019-07-02 19:33 | Emergency (ER) | payer MEDICARE, MEDICAID ==
--- NOTE | 2019-07-02 21:12 | ER Document Report ---
ED General - General Chief Complaint: Shortness Of Breath Stated Complaint: SHORTNESS OF BREATH Time Seen by Provider: 07/02/19 20:20 Primary Care Provider: HILARY HERNANDEZ MD [Primary Care Provider] - Follow up as needed Notes: 34-year-old female to the emergency department chief complaint of "I think my potassium is high". Patient is a 34-year-old female end-stage dialysis patient. History of diabetes. States that she is followed by Dr. Kwon and Dr. Hernandez. Has been feeling bad all day. Denies any chest pain. Does state that she has a headache. No fever. No vomiting. Feels like she cannot lift her head off the bed. TRAVEL OUTSIDE OF THE [place] IN LAST 30 DAYS: No - HPI Onset: This morning Onset/Duration: Gradual, Constant Quality of pain: Achy Severity: Moderate Pain Level: 2 Associated symptoms: Weakness - Related Data Allergies/Adverse Reactions: aspirin [Aspirin] Allergy (Verified 06/25/19 16:20) Anaphylaxis ciprofloxacin [From Cipro] Allergy (Verified 06/25/19 16:20) Anaphylaxis clindamycin [Clindamycin] Allergy (Verified 06/25/19 16:20) hydrocodone [From Vicodin] Allergy (Verified 06/25/19 16:20) ibuprofen [From Motrin] Allergy (Verified 06/25/19 16:20) Anaphylaxis lidocaine [From Lidoderm] Allergy (Verified 06/25/19 16:20) Generalized rash tramadol HCl [From Ultram] Allergy (Verified 06/25/19 16:20) vancomycin [Vancomycin] Allergy (Verified 06/25/19 16:20) Shortness of Breath nitroglycerin [Nitroglycerin] Adverse Reaction (Intermediate, Verified 06/25/19 16:20) Joint pain Past Medical History - General Information source: Patient - Social History Smoking Status: Never Smoker Chew tobacco use (# tins/day): No Frequency of alcohol use: None Drug Abuse: None Family History: Reviewed & Not Pertinent Patient has suicidal ideation: No Patient has homicidal ideation: No - Past Medical History Cardiac Medical History: Reports: Hx Congestive Heart Failure, Hx Coronary Artery Disease, Hx Hypertension, Hx Heart Murmur Pulmonary Medical History: Reports: Hx Asthma, Hx Pneumonia Neurological Medical History: Reports: Hx Migraine, Hx Seizures - only r/t low calcium Endocrine Medical History: Reports: Hx Diabetes Mellitus Type 1, Hx Diabetes Mellitus Type 2 Renal/ Medical History: Reports: Hx End Stage Renal Disease - On hemodialysis MWF, Hx Hemodialysis, Hx Ovarian Cysts. Denies: Hx Peritoneal Dialysis Malignancy Medical History: GI Medical History: Reports: Hx Gastritis Musculoskeletal Medical History: Skin Medical History: Reports Hx Psoriasis Psychiatric Medical History: Reports: Hx Depression Traumatic Medical History: Infectious Medical History: Past Surgical History: Reports: Hx Appendectomy, Hx Cholecystectomy, Hx Vascular Surgery - Lt AV Fistula and graft; Rt AV fistula. Denies: Hx Hysterectomy - Immunizations Immunizations up to date: Yes Hx Diphtheria, Pertussis, Tetanus Vaccination: Yes Hx Pneumococcal Vaccination: 08/22/11 Review of Systems - Review of Systems Notes: Constitutional: denies: Chills, Diaphoresis, Fever, Malaise, +Weakness EENT: denies: Eye discharge, Blurred vision, Tearing, Double vision, Nose congestion, Nose discharge, Throat swelling, Mouth pain Cardiovascular: denies: Palpitations, Heart racing, Orthopnea, Dyspnea, Chest pain Respiratory: denies: Cough, Hurts to breathe, Wheezing, Shortness of breath Gastrointestinal: denies: Abdominal pain, Diarrhea, Nausea, Vomiting, Black stools, bright red blood in stool Genitourinary: denies: Burning, Dysuria, Discharge, Frequency, Flank pain, Hematuria Musculoskeletal: denies: Joint pain, Joint swelling, Muscle pain, Muscle stiffness, back pain Hematologic/Lymphatic: denies: Anemia, Easy bleeding, Easy bruising, Blood clots Neurological/Psychological: denies: Confusion, Dementia, Depression, Loss of consciousness+ headache Skin: No lesions, no masses, no skin breakdown, no abscesses Physical Exam - Vital signs Vitals: Temp Pulse Resp BP Pulse Ox 98.0 F 93 20 185/72 H 93 07/02/19 19:44 07/02/19 19:44 07/02/19 19:44 07/02/19 19:44 07/02/19 19:44 Interpretation: Normal - Notes Notes: 34-year-old morbidly obese -[place] female - General General appearance: Appears well, Alert - HEENT Head: Normocephalic, Atraumatic Eyes: Normal Pupils: PERRL - Respiratory Respiratory status: No respiratory distress Chest status: Nontender Breath sounds: Normal Chest palpation: Normal - Cardiovascular Rhythm: Regular Heart sounds: Normal auscultation Murmur: No - Abdominal Inspection: Normal Distension: No distension Bowel sounds: Normal Tenderness: Nontender Organomegaly: No organomegaly - Back Back: Normal, Nontender - Extremities General upper extremity: Normal inspection, Nontender, Normal color, Normal ROM, Normal temperature, Other - Positive thrill and bruit to right upper extremity AV fistula site. General lower extremity: Normal inspection, Nontender, Normal color, Normal ROM, Normal temperature. No: Lina's sign - Neurological Neuro grossly intact: Yes Cognition: Normal Orientation: AAOx4 [place] Coma Scale Eye Opening: Spontaneous [place] Coma Scale Verbal: Oriented [place] Coma Scale Motor: Obeys Commands [place] Coma Scale Total: 15 Speech: Normal Motor strength normal: LUE, RUE, LLE, RLE Sensory: Normal - Psychological Associated symptoms: Normal affect, Normal mood - Skin Skin Temperature: Warm Skin Moisture: Dry Skin Color: Normal Course - Re-evaluation Re-evalutation: 07/02/19 22:26 Laboratory 07/02/19 07/02/19 20:20 20:20 WBC 9.7 RBC 3.25 L Hgb 9.4 L Hct 29.1 L MCV 90 MCH 28.8 MCHC 32.2 RDW 16.3 H Plt Count 377 Seg Neutrophils % 64.8 Lymphocytes % 22.2 Monocytes % 8.2 Eosinophils % 4.4 Basophils % 0.4 Absolute Neutrophils 6.3 Absolute Lymphocytes 2.1 Absolute Monocytes 0.8 Absolute Eosinophils 0.4 Absolute Basophils 0.0 Sodium 132.8 L Potassium 6.8 H* Chloride 94 L Carbon Dioxide 22 Anion Gap 17 BUN 67 H Creatinine 10.44 H Est GFR ( Amer) 5 L Est GFR (Non-Af Amer) 4 L Glucose 355 H Calcium 6.9 L* Magnesium 2.2 Total Bilirubin 0.4 Direct Bilirubin 0.4 Neonat Total Bilirubin Not Reportable Neonat Direct Bilirubin Not Reportable Neonat Indirect Bili Not Reportable AST 24 ALT 18 Alkaline Phosphatase 189 H Total Protein 8.0 Albumin 4.4 07/02/19 23:12 Chest X-Ray 07/02/19 21:19 IMPRESSION: No acute cardiopulmonary process copyright 2010 [employer]- All Rights Reserved Patient with hyperkalemia of 6.8. Chronic renal failure on dialysis. Elevated K+ Started the potassium shift protocol. Consult with Dr. Dominguez who is on-call for Dr. Hernandez. We have no nephrology so he is uncomfortable admitting patient. Will attempt to transfer. Patient is stable at this time. Continues to complain of a headache so I am ordering a CT scan as her blood pressure is quite high 200/100. I have medicated her as well with morphine and Dilaudid and she still says she has a headache so feel justified and ordering the head CT at this time. 07/03/19 02:37 Repeat potassium shows that her potassium is now to 6. Is not going up or going down. States that she still has a headache. Patient has been given several doses of Dilaudid. Her head CT was performed and that does not reveal anything significant there. States that her headache occurred within the last 6 hours so this would be very sensitive for picking up an acute subarachnoid hemorrhage w hich I do not think the patient has. She is nontoxic-appearing. Afebrile and in no acute distress. Resting very comfortably at this time. Still pending transfer. I anticipate that before patient can be transferred that we will be able to consult with the administrative job titles here for possible admit. 07/03/19 04:04 Patient is still awaiting transfer. It is currently 4:05 AM. Anticipate that we will be able to reach the administrative job titles this morning before bed will be available for transfer. I have discussed the case with my colleague Dr. Mccormick. More than likely he will need to discuss the case with the oncoming doc at 6 AM as well. I have ordered a repeat Accu-Chek. According to the nurse patient is resting comfortably at this time and her headache is improved. Currently her blood pressure is 163/64. Heart rate of 85 and oxygen saturation of 100% with a respiratory rate of 16. 07/03/19 04:09 - Vital Signs Vital signs: Temp Pulse Resp BP Pulse Ox 98.0 F 93 14 166/61 H 100 07/02/19 19:44 07/02/19 19:44 07/03/19 01:01 07/03/19 01:01 07/03/19 01:01 - Laboratory Result Diagrams: 07/02/19 20:20 07/03/19 01:45 Laboratory results interpreted by me: 07/02/19 07/02/19 07/03/19 20:20 20:20 01:45 RBC 3.25 L Hgb 9.4 L Hct 29.1 L RDW 16.3 H Sodium 132.8 L Potassium 6.8 H* 6.0 H* Chloride 94 L 95 L BUN 67 H 72 H Creatinine 10.44 H 10.72 H Est GFR ( Amer) 5 L 5 L Est GFR (Non-Af Amer) 4 L 4 L Glucose 355 H 234 H Calcium 6.9 L* 7.2 L Alkaline Phosphatase 189 H - EKG Interpretation by Hi EKG shows normal: Sinus rhythm, [place], Intervals - QTC of 516, QRS Complexes. abnormal: ST-T Waves - Peaking Twaves diffusely Voltage: Consistant with [facility] Critical Care Note - Critical Care Note Total time excluding time spent on procedures (mins): 45 Comments: Hyperkalemia, renal failure, hypertensive emergency Discharge - Discharge Clinical Impression: Hyperkalemia, Acute renal failure on dialysis Condition: Fair Disposition: [facility] Referrals: HILARY HERNANDEZ MD [Primary Care Provider] - Follow up as needed
[2019-07-02 21:41] LABS: ABSOLUTE EOSINOPHILS # (AUTO) 0.4 10^3/uL (0.0-0.6); ABSOLUTE LYMPHOCYTES (AUTO) 2.1 10^3/uL (0.5-4.7); ABSOLUTE MONOCYTES (AUTO) 0.8 10^3/uL (0.1-1.4); ABSOLUTE NEUT (AUTO) 6.3 10^3/uL (1.7-8.2); BASOPHILS % (AUTO) 0.4 % (0-2); EOSINOPHILS % (AUTO) 4.4 % (0-6); HEMATOCRIT 29.1 % (36.0-47.0); HEMOGLOBIN 9.4 g/dL (12.0-15.5); LYMPHOCYTES % (AUTO) 22.2 % (13-45); MEAN CORPUSCULAR HEMOGLOBIN 28.8 pg (27.0-33.4); MEAN CORPUSCULAR HGB CONC 32.2 g/dL (32.0-36.0); MEAN CORPUSCULAR VOLUME 90 fl (80-97); MONOCYTES % (AUTO) 8.2 % (3-13); PLATELET COUNT 377 10^3/uL (150-450); RED BLOOD COUNT 3.25 10^6/uL (3.72-5.28); RED CELL DISTRIBUTION WIDTH 16.3 % (11.5-14.0); SEGMENTED NEUTROPHILS % (AUTO) 64.8 % (42-78); TOTAL CELLS COUNTED % (AUTO) 100 %; WHITE BLOOD COUNT 9.7 10^3/uL (4.0-10.5)
[2019-07-02] MEDS ORDERED: MORPHINE SULFATE 10 MG/ML INJ IV ONE (21:55)
[2019-07-02] MEDS ORDERED: ONDANSETRON HCL INJ/PF 4 MG/2 ML SDV IV ONE (21:56)
[2019-07-02] MEDS ORDERED: CALCIUM GLUCONATE 1000 MG/10 ML INJ IV ONE (21:57)
--- NOTE | 2019-07-02 22:01 | EKG REPORT ---
SEVERITY:- ABNORMAL ECG - SINUS RHYTHM FIRST DEGREE AV BLOCK BORDERLINE LEFT AXIS DEVIATION PROLONGED QT INTERVAL : Confirmed by: Ciro Beckford MD 02-Jul-2019 22:00:41
[2019-07-02 22:06] LABS: ALBUMIN 4.4 g/dL (3.5-5.0); ALKALINE PHOSPHATASE 189 U/L (38-126); ANION GAP 17 (5-19); ASPARTATE AMINO TRANSFERASE 24 U/L (14-36); BILIRUBIN,DIRECT 0.4 mg/dL (0.0-0.4); BILIRUBIN,TOTAL 0.4 mg/dL (0.2-1.3); BLOOD UREA NITROGEN 67 mg/dL (7-20); CARBON DIOXIDE 22 mmol/L (22-30); CHLORIDE 94 mmol/L (98-107); GLUCOSE 355 mg/dL (75-110)
[2019-07-02 22:15] LABS: CALCIUM 6.9 mg/dL (8.4-10.2); POTASSIUM 6.8 mmol/L (3.6-5.0)
[2019-07-02] MEDS ORDERED: SODIUM BICARBONATE 8.4% INJ 50 MEQ/50 ML DISP.SYRIN IV ONE (22:17)
[2019-07-02] MEDS ORDERED: ALBUTEROL SULFATE 0.083% NEB 2.5 MG/3 ML AMPUL NEB ONE (22:17)
[2019-07-02] MEDS ORDERED: DEXTROSE 50%-WATER 25 GM/50 ML DISP.SYRIN IV ONE (22:17)
[2019-07-02] MEDS ORDERED: INSULIN REG, HUMAN 100 UNIT/ML 3 ML VIAL (PYX) IV ONE (22:17)
[2019-07-02] MEDS ORDERED: SODIUM POLYSTYRENE SULFONATE 15 GM/60 ML PO ONE (22:27)
--- NOTE | 2019-07-02 22:29 | RADIOLOGY REPORT (SQ) ---
EXAM DESCRIPTION: XR CHEST 1 VIEW COMPLETED DATE/TME: 07/02/2019 21:19 CLINICAL HISTORY: 34 years, Female, sob COMPARISON: None. NUMBER OF VIEWS: 1 TECHNIQUE: Portable chest LIMITATIONS: None. FINDINGS: Stable cardiomegaly. Stable fullness of the left clyde. Lungs are clear. No pneumothorax endovascular stent graft right axilla. IMPRESSION: No acute cardiopulmonary process copyright 2010 [employer] All Rights Reserved
[2019-07-02] MEDS ORDERED: FUROSEMIDE INJ/PF 40 MG/4 ML SDV IV ONE (23:07)
[2019-07-02] MEDS ORDERED: HYDROMORPHONE HCL INJ/PF 2 MG/ML AMPULE IV ONE (23:11)
--- NOTE | 2019-07-03 00:17 | RADIOLOGY REPORT (SQ) ---
EXAM DESCRIPTION: CT HEAD WITHOUT IV CONTRAST COMPLETED DATE/TME: 07/02/2019 23:11 CLINICAL HISTORY: 34 years, Female, htn headache COMPARISON: None Available. Technique: Contiguous axial images of the brain were obtained without the administration of intravenous contrast. Coronal and sagittal reformats obtained and reviewed. This exam was performed according to our departmental dose-optimization program which includes use of Automated Exposure Control, adjustment of the mA and/or kV according to patient size and/or use of iterative reconstruction technique. Findings: Brain: No hemorrhage. No territorial infarct. No mass effect. No herniation. Ventricles: Within normal limits for patient's age. Bones: No acute osseous abnormality. Paranasal sinuses: Unremarkable. Mastoid air cells: Unremarkable. Soft tissues: No acute abnormality. IMPRESSION: No acute intracranial abnormalities.
[2019-07-03] MEDS ORDERED: HYDROMORPHONE HCL INJ/PF 2 MG/ML AMPULE IV ONE (01:42)
[2019-07-03] MEDS ORDERED: ONDANSETRON HCL INJ/PF 4 MG/2 ML SDV IV ONE (01:43)
[2019-07-03 02:25] LABS: ANION GAP 18 (5-19); BLOOD UREA NITROGEN 72 mg/dL (7-20); CALCIUM 7.2 mg/dL (8.4-10.2); CARBON DIOXIDE 24 mmol/L (22-30); CHLORIDE 95 mmol/L (98-107); GLUCOSE 234 mg/dL (75-110)
[2019-07-03] MEDS ORDERED: ALBUTEROL SULFATE 0.083% NEB 2.5 MG/3 ML AMPUL NEB ONE (05:57)
[2019-07-03] MEDS ORDERED: DEXTROSE 50%-WATER 25 GM/50 ML DISP.SYRIN IV ONE (05:57)
[2019-07-03] MEDS ORDERED: INSULIN REG, HUMAN 100 UNIT/ML 3 ML VIAL (PYX) IV ONE (05:57)
--- NOTE | 2019-07-03 08:30 | ER Document Report ---
Doctor's Note Notes: 07/03/19 08:27 The patient was signed out to me at shift change pending consultation with nephrology The patient [facility]. Patient was awaiting dialysis. This morning the real time analyst Dr. Kwon is come on shift. We have consulted him. The patient will be dialyzed here and likely will be able to be discharged this is a chronic recurring problem with this patient. Plan is to send the patient to dialysis and discharged.
[2019-07-03] MEDS ORDERED: CALCIUM GLUCONATE 1000 MG/10 ML INJ IV ONE (13:00)
[2019-07-03] MEDS ORDERED: EPOETIN ALFA-EPBX 10,000 UNIT/ML VIAL (RENAL) IV ONE (13:00)
--- NOTE | 2019-07-03 16:12 | ER Document Report ---
Doctor's Note Notes: 07/03/19 16:12 The patient had dialysis and is doing much better she was seen by Dr. Kwon nephrology. Potassium is come down the patient feels much better. Speaking with Dr. Kwon the patient is safe to go home. We have observed the patient after dialysis she is eating and is in no acute distress. She is comfortable going home patient will be discharged.
--- NOTE | 2019-07-03 16:43 | PDOC PROGRESS REPORT ---
Subjective Progress Note for:: 07/03/19 Reason For Visit: I was called to see this patient by the ED MD in the ER as she was admitted to the ER last night for shortness of breath. She was last dialyzed on Wednesday according to the patient. She has history of severe noncompliance with diet and fluids as she has had multiple admissions for the same in the past. Evaluations reviewed that she was in mild heart failure. Labs were reviewed were reviewed that showed hyperkalemia as well along with metabolic acidosis. She had some tenting of the T waves. Therefore emergent dialysis was instituted. Patient is being seen while undergoing dialysis. She is already starting to feel better with the early fluid removal. No complaints of any chest pains or palpitations. No complaints of any fever or chills. Dialysis orders were reviewed with the treating dialysis nurse. Physical Exam Vital Signs: Temp Pulse Resp BP Pulse Ox 98.2 F 93 11 L 134/77 H 99 07/03/19 08:09 07/02/19 19:44 07/03/19 08:01 07/03/19 08:01 07/03/19 08:01 Intake & Output 07/02/19 07/03/19 07/04/19 06:59 06:59 06:59 Output Total 4700 Balance -4700 Weight 109.5 kg General appearance: PRESENT: mild distress Respiratory exam: PRESENT: clear to auscultation freddy, decreased breath sounds. ABSENT: crackles Cardiovascular exam: PRESENT: RRR, +S1, +S2. ABSENT: rubs GI/Abdominal exam: PRESENT: normal bowel sounds, soft. ABSENT: organomegaly, tenderness Extremities exam: PRESENT: pedal edema Neurological exam: PRESENT: alert, awake, oriented to place, oriented to time Results Laboratory Results: 07/02/19 20:20 07/03/19 05:15 07/02/19 07/02/19 07/03/19 20:20 20:20 01:16 WBC 9.7 RBC 3.25 L Hgb 9.4 L Hct 29.1 L MCV 90 MCH 28.8 MCHC 32.2 RDW 16.3 H Plt Count 377 Seg Neutrophils % 64.8 Lymphocytes % 22.2 Monocytes % 8.2 Eosinophils % 4.4 Basophils % 0.4 Absolute Neutrophils 6.3 Absolute Lymphocytes 2.1 Absolute Monocytes 0.8 Absolute Eosinophils 0.4 Absolute Basophils 0.0 Sodium 132.8 L Cancelled Potassium 6.8 H* Cancelled Chloride 94 L Cancelled Carbon Dioxide 22 Cancelled Anion Gap 17 Cancelled BUN 67 H Cancelled Creatinine 10.44 H Cancelled Est GFR ( Amer) 5 L Cancelled Est GFR (Non-Af Amer) 4 L Cancelled Glucose 355 H Cancelled Calcium 6.9 L* Cancelled Magnesium 2.2 Total Bilirubin 0.4 AST 24 Alkaline Phosphatase 189 H Total Protein 8.0 Albumin 4.4 Serum HCG, Qual 07/03/19 07/03/19 07/03/19 01:45 01:45 05:15 WBC RBC Hgb Hct MCV MCH MCHC RDW Plt Count Seg Neutrophils % Lymphocytes % Monocytes % Eosinophils % Basophils % Absolute Neutrophils Absolute Lymphocytes Absolute Monocytes Absolute Eosinophils Absolute Basophils Sodium 137.2 Potassium 6.0 H* 6.2 H* Chloride 95 L Carbon Dioxide 24 Anion Gap 18 BUN 72 H Creatinine 10.72 H Est GFR ( Amer) 5 L Est GFR (Non-Af Amer) 4 L Glucose 234 H Calcium 7.2 L Magnesium Total Bilirubin AST Alkaline Phosphatase Total Protein Albumin Serum HCG, Qual NEGATIVE 07/02/19 20:20 Troponin I 0.087 Impressions: Chest X-Ray 07/02/19 21:19 IMPRESSION: No acute cardiopulmonary process copyright 2011 [employer]- All Rights Reserved Head CT 07/02/19 23:11 IMPRESSION: No acute intracranial abnormalities. Assessment & Plan - Diagnosis (1) End stage renal disease on dialysis Plan: Patient was seen on dialysis. She is undergoing dialysis without any issues. Already feeling better. Dialysis is being supervised to ensure safe and smooth procedure. She is on a 2K bath and will try to remove between 4 and 5 L as tolerated. Dialysis orders were reviewed with the treating dialysis nurse. Advised compliance with diet and fluid intake in the future. (2) Hyperkalemia Plan: She should respond to dialysis. Again discussed dietary compliance. (3) Acute exacerbation of congestive heart failure Plan: She is already responding to ultrafiltration on hemodialysis. We discussed dietary and fluid compliance as patient has had multiple issues and presented similarly in the past. (4) Acute hypoxemic respiratory failure Plan: Should respond to dialysis and fluid removal. (5) Hypertension Qualifiers: Plan: Presently controlled. (6) Diabetes mellitus type 1 with complications Plan: Poorly controlled. Advised better compliance with diet and medications.
[2019-07-03 17:24] VITALS: BP 136/67
--- NOTE | 2019-07-04 09:41 | EKG REPORT ---
SEVERITY:- ABNORMAL ECG - SINUS RHYTHM FIRST DEGREE AV BLOCK BORDERLINE LEFT AXIS DEVIATION PROLONGED QT INTERVAL : Confirmed by: Daniela Lemons 04-Jul-2019 09:40:02
== END 2019-07-03 17:15 | disposition home or self-care (01) ==
LOC: ER 19:33
DX: E87.5 Hyperkalemia (principal); I16.1 Hypertensive emergency; I12.0 Hypertensive chronic kidney disease with stage 5 chronic kidney disease or end stage renal disease; E11.22 Type 2 diabetes mellitus with diabetic chronic kidney disease; N18.6 End stage renal disease; N17.9 Acute kidney failure, unspecified; Z99.2 Dependence on renal dialysis; R51 Headache; R53.1 Weakness; E66.01 Morbid (severe) obesity due to excess calories; I25.10 Atherosclerotic heart disease of native coronary artery without angina pectoris; J45.909 Unspecified asthma, uncomplicated; Z87.892 Personal history of anaphylaxis; Z88.1 Allergy status to other antibiotic agents; Z88.8 Allergy status to other drugs, medicaments and biological substances; Z88.5 Allergy status to narcotic agent
CPT/HCPCS: 93005 ×2; 36415; 82962; 83735; 84132; 84703; 85025; 80048; 80053; 84484; 71045; 70450; 93010 ×2; G0257; J0610 ×2; J3490 ×3; J1940; J2270; J1170 ×2; A9270 ×4; J2405 ×2; Q5105; 94640; 96374; 96375; 96376; 99285; J1815

== ENCOUNTER 2019-07-04 22:43 | Inpatient (IN) | payer MEDICARE, MEDICAID ==
--- NOTE | 2019-07-04 23:01 | ER Document Report ---
ED General - General Stated Complaint: TROUBLE BREATHING/HEART PROBLEMS Time Seen by Provider: 07/04/19 22:50 TRAVEL OUTSIDE OF THE [place] IN LAST 30 DAYS: No - HPI Notes: Patient is a 34-year-old female with multiple medical issues, who presents to the emergency department for evaluation of sudden onset shortness of breath. She states she was sitting at home it happened. She became acutely short of breath. She states she had a normal dialysis session on Wednesday. She denies any fevers. She denies any pain. She is had some nausea but no emesis. - Related Data Allergies/Adverse Reactions: aspirin [Aspirin] Allergy (Verified 06/25/19 16:20) Anaphylaxis ciprofloxacin [From Cipro] Allergy (Verified 06/25/19 16:20) Anaphylaxis clindamycin [Clindamycin] Allergy (Verified 06/25/19 16:20) hydrocodone [From Vicodin] Allergy (Verified 06/25/19 16:20) ibuprofen [From Motrin] Allergy (Verified 06/25/19 16:20) Anaphylaxis lidocaine [From Lidoderm] Allergy (Verified 06/25/19 16:20) Generalized rash tramadol HCl [From Ultram] Allergy (Verified 06/25/19 16:20) vancomycin [Vancomycin] Allergy (Verified 06/25/19 16:20) Shortness of Breath nitroglycerin [Nitroglycerin] Adverse Reaction (Intermediate, Verified 06/25/19 16:20) Joint pain Past Medical History - General Information source: Patient - Social History Smoking Status: Unknown if Ever Smoked Family History: Reviewed & Not Pertinent - Past Medical History Cardiac Medical History: Reports: Hx Congestive Heart Failure, Hx Coronary Artery Disease, Hx Hypertension, Hx Heart Murmur Pulmonary Medical History: Reports: Hx Asthma, Hx Pneumonia Neurological Medical History: Reports: Hx Migraine, Hx Seizures - only r/t low calcium Endocrine Medical History: Reports: Hx Diabetes Mellitus Type 1, Hx Diabetes Mellitus Type 2 Renal/ Medical History: Reports: Hx End Stage Renal Disease - On hemodialysis MWF, Hx Hemodialysis, Hx Ovarian Cysts. Denies: Hx Peritoneal Dialysis Malignancy Medical History: GI Medical History: Reports: Hx Gastritis Musculoskeletal Medical History: Skin Medical History: Reports Hx Psoriasis Psychiatric Medical History: Reports: Hx Depression Traumatic Medical History: Infectious Medical History: Past Surgical History: Reports: Hx Appendectomy, Hx Cholecystectomy, Hx Vascular Surgery - Lt AV Fistula and graft; Rt AV fistula. Denies: Hx Hysterectomy - Immunizations Immunizations up to date: Yes Hx Diphtheria, Pertussis, Tetanus Vaccination: Yes Hx Pneumococcal Vaccination: 08/22/11 Review of Systems - Review of Systems Constitutional: No symptoms reported EENT: No symptoms reported Cardiovascular: See HPI Respiratory: See HPI Gastrointestinal: No symptoms reported Genitourinary: No symptoms reported Musculoskeletal: No symptoms reported Skin: No symptoms reported Neurological/Psychological: No symptoms reported Physical Exam - Vital signs Vitals: Pulse Ox 99 07/04/19 22:46 - Notes Notes: Vital signs reviewed, please refer to chart. This is a 34-year-old female who appears her stated age in a moderate amount of stress. She has CPAP in place as ordered by EMS. She is tachypneic. Head is normocephalic, atraumatic. Pupils equal round, reactive to light. Neck is supple without meningismus. Heart is regular rate and rhythm. Lungs reveal rales bilaterally. Abdomen is soft, nontender, normoactive bowel sounds throughout. Extremities without cyanosis, clubbing. Posterior calves are nontender. Peripheral pulses are equal. Skin is warm and dry. Patient is awake, alert, neurological exam is nonfocal. Course - Re-evaluation Re-evalutation: 07/05/19 01:33 Patient presented to the emergency department for evaluation of an acute onset o f shortness of breath. She is a well-known patient with end-stage renal disease and history of pulmonary edema. She has multiple allergies and could not tolerate other medications. She was placed on BiPAP. Laboratory investigations revealed significant hyperkalemia and hypocalcemia. She has pulmonary edema on chest x-ray. She does need dialyzed. I spoke with Dr. Farah, who agrees she needs dialyze, states this could be performed first thing in the morning. I will contacted Dr. Singleton who will admit her for further care. - Vital Signs Vital signs: Temp Pulse Resp BP Pulse Ox 100.1 F 101 H 33 H 141/68 H 100 07/05/19 04:03 07/05/19 04:03 07/05/19 04:03 07/05/19 04:03 07/05/19 04:03 - Laboratory Result Diagrams: 07/04/19 23:00 07/04/19 23:00 Laboratory results interpreted by me: 07/04/19 07/04/19 07/04/19 23:00 23:00 23:00 RBC 3.28 L Hgb 9.4 L Hct 29.2 L RDW 16.9 H Lymphocytes % 12.8 L Sodium 133.7 L Potassium 6.1 H* Chloride 92 L BUN 65 H Creatinine 10.59 H Est GFR ( Amer) 5 L Est GFR (Non-Af Amer) 4 L Glucose 369 H Calcium 6.6 L* Alkaline Phosphatase 179 H Creatine Kinase 150 H Amylase 142 H Lipase 393.5 H - Diagnostic Test Radiology reviewed: Reports reviewed Radiology results interpreted by me: 07/05/19 01:34 Chest X-Ray 07/04/19 22:46 IMPRESSION: Moderate mixed interstitial and airpace opacities. Interval worsening. Differential diagnosis includes pulmonary edema, multifocal pneumonia, and chronic interstitial lung disease. - EKG Interpretation by Me Additional EKG results interpreted by me: 07/05/19 01:34 Sinus tachycardia with a rate of 102 bpm. Left axis deviation. Prolonged QT interval. No acute ST changes concerning for ischemia or infarction. Discharge - Discharge Clinical Impression: ESRD (end stage renal disease) on dialysis, Acute pulmonary edema, Hyperkalemia, Hypocalcemia Dyspnea Qualifiers: Dyspnea type: shortness of breath Qualified Code(s): R06.02 - Shortness of breath Condition: Stable Disposition: ADMITTED INPATIENT Admitting Provider: Areli
[2019-07-04 23:15] LABS: ABSOLUTE BASOPHILS # (AUTO) 0.1 10^3/uL (0.0-0.2); ABSOLUTE EOSINOPHILS # (AUTO) 0.3 10^3/uL (0.0-0.6); ABSOLUTE LYMPHOCYTES (AUTO) 1.3 10^3/uL (0.5-4.7); ABSOLUTE MONOCYTES (AUTO) 0.7 10^3/uL (0.1-1.4); ABSOLUTE NEUT (AUTO) 7.4 10^3/uL (1.7-8.2); BASOPHILS % (AUTO) 1.3 % (0-2); EOSINOPHILS % (AUTO) 3.1 % (0-6); HEMATOCRIT 29.2 % (36.0-47.0); HEMOGLOBIN 9.4 g/dL (12.0-15.5); LYMPHOCYTES % (AUTO) 12.8 % (13-45); MEAN CORPUSCULAR HEMOGLOBIN 28.6 pg (27.0-33.4); MEAN CORPUSCULAR HGB CONC 32.1 g/dL (32.0-36.0); MEAN CORPUSCULAR VOLUME 89 fl (80-97); MONOCYTES % (AUTO) 6.9 % (3-13); PLATELET COUNT 290 10^3/uL (150-450); RED BLOOD COUNT 3.28 10^6/uL (3.72-5.28); RED CELL DISTRIBUTION WIDTH 16.9 % (11.5-14.0); SEGMENTED NEUTROPHILS % (AUTO) 75.9 % (42-78); TOTAL CELLS COUNTED % (AUTO) 100 %; WHITE BLOOD COUNT 9.8 10^3/uL (4.0-10.5)
--- NOTE | 2019-07-04 23:39 | RADIOLOGY REPORT (SQ) ---
EXAM DESCRIPTION: XR CHEST 1 VIEW COMPLETED DATE/TME: 07/04/2019 22:46 CLINICAL HISTORY: 34 years Female, SHORTNESS OF BREATH COMPARISON: One day prior. NUMBER OF VIEWS/TECHNIQUE: 1/AP FINDINGS: Moderate to severe patchy opacities of both lower and mid lung [place]. Mild interstitial markings. Right subclavian stent material. Mildly enlarged cardiac silhouette. No pneumothorax. Stable bony thorax. IMPRESSION: Moderate mixed interstitial and airpace opacities. Interval worsening. Differential diagnosis includes pulmonary edema, multifocal pneumonia, and chronic interstitial lung disease.
[2019-07-04 23:53] LABS: ALBUMIN 4.4 g/dL (3.5-5.0); ALKALINE PHOSPHATASE 179 U/L (38-126); ANION GAP 19 (5-19); ASPARTATE AMINO TRANSFERASE 25 U/L (14-36); BILIRUBIN,DIRECT 0.4 mg/dL (0.0-0.4); BILIRUBIN,TOTAL 0.4 mg/dL (0.2-1.3); BLOOD UREA NITROGEN 65 mg/dL (7-20); CARBON DIOXIDE 23 mmol/L (22-30); CHLORIDE 92 mmol/L (98-107); CREATINE KINASE 150 U/L (30-135); GLUCOSE 369 mg/dL (75-110); TOTAL PROTEIN 8.2 g/dL (6.3-8.2)
[2019-07-04 23:54] LABS: CREATINE KINASE MB 0.66 ng/mL (<4.55)
[2019-07-05 00:03] LABS: CALCIUM 6.6 mg/dL (8.4-10.2); POTASSIUM 6.1 mmol/L (3.6-5.0); TROPONIN I 0.049 ng/mL
[2019-07-05] MEDS ORDERED: PROMETHAZINE HCL INJ 25 MG/1 ML VIAL IV ONE (01:34)
[2019-07-05] MEDS ORDERED: DEXTROSE 50%-WATER 25 GM/50 ML DISP.SYRIN IV PRN ×2 (02:04)
[2019-07-05] MEDS ORDERED: DEXTROSE 40% GEL 15 GM TUBE PO PRN ×2 (02:04)
[2019-07-05] MEDS ORDERED: GLUCAGON,HUMAN RECOMB 1 MG INJ IM PRN (02:04)
[2019-07-05 02:25] LABS: INTERNATIONAL RATION (INR) 1.07; PROTHROMBIN TIME 13.9 SEC (11.4-15.4)
[2019-07-05 03:15] LABS: CREATINE KINASE MB 0.59 ng/mL (<4.55)
[2019-07-05 03:17] LABS: TROPONIN I 0.058 ng/mL
[2019-07-05] MEDS: HEPARIN SOD (PORCINE) 5,000 UNIT/ML 1 ML VIAL SUBCUT SCH ×3 (05:37→22:13)
[2019-07-05 09:16] LABS: CREATINE KINASE MB 0.49 ng/mL (<4.55); TROPONIN I 0.051 ng/mL
[2019-07-05] MEDS ORDERED: EPOETIN ALFA-EPBX 20,000 UNITS (ESRD) in SYRINGE IV PRN (10:04)
[2019-07-05] MEDS: INSULIN LISPRO 100 UNIT/ML 3 ML VIAL SUBCUT SCH ×4 (11:45→22:14)
--- NOTE | 2019-07-05 13:57 | PDOC CONSULTATION ---
Consultation Consult Date: 07/05/19 Provider Consulted: ERICA IVY Consult reason:: I was asked to see the patient because of acute onset of pulmonary edema and shortness of breath in a patient with ESRD. History of Present Illness Admission Date/PCP: 07/05/19 02:01 HILARY HERNANDEZ MD History of Present Illness: ERICH GOODMAN is a 34 year old female known to me with history of ESRD on h emodialysis 3 times a week, MWF; diabetic nephropathy, diabetes mellitus type 1, hypertension, anemia of chronic kidney disease, noncompliance and frequent hospital visitations for the same reason of acute shortness of breath. Patient has been frequently in the hospital for the last 4 weeks or so. She was just admitted from June 26 to June 29 last week for acute onset again of pulmonary edema. She was discharged and dialyzed at [facility] on Wednesday, June 30. She was offered to extend her treatment to get a little bit more fluid off because she does gain a lot of fluid over the weekend. On Wednesday she presented again here in the hospital emergency room for the same reason. She was dialyzed emergently in the emergency room and was discharged home improved. According to my dialysis nurses they saw that patient's family has brought soda drinks last Wednesday for her. She admits to drinking 3 sodas that time. Then again yesterday patient states that she just started not feeling well and acutely got short of breath. She admits a little bit of cough with some yellowish sputum and fever although she is afebrile here. She has a little bit of nausea but no vomiting or abdominal pain or diarrhea. Initial evaluation in the emergency room last night showed a chest x-ray with again acute pulmonary edema. Patient was placed on BiPAP. I was then called coronary clinical specialist today for patient to be arranged for hemodialysis . I am seeing the patient on dialysis today this afternoon here in ICU. Patient was unable to be went off the BiPAP so she needed to be dialyzed here in the ICU. Patient was lethargic but arousable and answers questions. Patient is tolerating dialysis with ultrafiltration with a goal of 6 L during his dialysis today. She will be monitored throughout dialysis treatment. Past Medical History Cardiac Medical History: Reports: Coronary Artery Disease, Heart Murmur, Hypertension-primary Pulmonary Medical History: Reports: Asthma, Pneumonia Neurological Medical History: Reports: Migraine, Seizures - only r/t low calcium Endocrine Medical History: Reports: Diabetes Mellitus Type 1 Complications of Diabetes: Reports: Autonomic Neuropathy, Nephropathy, Retinopathy Renal/ Medical History: Reports: End Stage Renal Disease - On hemodialysis MWF, Hypocalcemia, Hyperkalemia, Hyperphosphatemia Malignancy Medical History: GI Medical History: Musculoskeltal Medical History: Skin Medical History: Reports: Psoriasis Psychiatric Medical History: Reports: Depression Infectious Medical History: Hematology Medical History: Reports Anemia of Chronic Kidney Disease Past Surgical History Past Surgical History: Reports: Appendectomy, Cholecystectomy, Dialysis Access Surgery AVF, Vascular Surgery - Lt AV Fistula and graft; Rt AV fistula Social History Information Source: [facility] Records Smoking Status: Never Smoker Frequency of Alcohol Use: Occasional Hx Recreational Drug Use: No Drugs: None Hx Prescription Drug Abuse: No Family History Family History: No family history of kidney disease. Her child has autism. Parental Family History Reviewed: Yes Children Family History Reviewed: Yes Sibling(s) Family History Reviewed.: Yes Medication/Allergy Home Medications: Alprazolam [Xanax 0.5 mg Tablet] 0.5 mg PO BIDP PRN 07/05/19 Buprenorphine HCl [Belbuca] 450 mcg BC Q12 07/05/19 Furosemide [Lasix 80 mg Tablet] 80 mg PO Q8 07/05/19 Gabapentin Enacarbil [Horizant] 300 mg PO MOWEFR 07/05/19 Nifedipine [Nifedipine ER] 60 mg PO BID 07/05/19 Oxcarbazepine [Trileptal] 300 mg PO BID 07/05/19 Oxycodone HCl/Acetaminophen [Percocet 7.5-325 mg Tablet] 1 each PO QIDP PRN 07/05/19 Paroxetine HCl [Paxil] 80 mg PO QPM 07/05/19 Patiromer Calcium Sorbitex [Veltassa] 8.4 gm PO DAILY 07/05/19 Sucroferric Oxyhydroxide [Velphoro] 1,000 mg PO .SNACK 07/05/19 Sucroferric Oxyhydroxide [Velphoro] 1,500 mg PO AC 07/05/19 Tizanidine HCl [Zanaflex 4 Mg Tablet] 4 mg PO BIDP PRN 07/05/19 Zolpidem Tartrate [Ambien] 10 mg PO HSP PRN 07/05/19 Allergies/Adverse Reactions: aspirin [Aspirin] Allergy (Verified 06/25/19 16:20) Anaphylaxis ciprofloxacin [From Cipro] Allergy (Verified 06/25/19 16:20) Anaphylaxis clindamycin [Clindamycin] Allergy (Verified 06/25/19 16:20) hydrocodone [From Vicodin] Allergy (Verified 06/25/19 16:20) ibuprofen [From Motrin] Allergy (Verified 06/25/19 16:20) Anaphylaxis lidocaine [From Lidoderm] Allergy (Verified 06/25/19 16:20) Generalized rash tramadol HCl [From Ultram] Allergy (Verified 06/25/19 16:20) vancomycin [Vancomycin] Allergy (Verified 06/25/19 16:20) Shortness of Breath nitroglycerin [Nitroglycerin] Adverse Reaction (Intermediate, Verified 06/25/19 16:20) Joint pain Review of Systems All systems: reviewed and no additional remarkable complaints except as stated Review of Systems: Constitutional: ABSENT: chills, fatigue, headache(s), weight gain, weight loss; reports fever Eyes: ABSENT: visual disturbances Ears: ABSENT: hearing changes Cardiovascular: ABSENT: chest pain, edema, orthropnea, palpitations Respiratory: ABSENT: Hemoptysis; admits productive cough, shortness of breath Gastrointestinal: ABSENT: abdominal pain, constipation, diarrhea, hematemesis, hematochezia, vomiting; admits nausea Genitourinary: ABSENT: dysuria, hematuria Musculoskeletal: ABSENT: joint swelling Integumentary: ABSENT: rash, wounds Neurological: ABSENT: abnormal gait, abnormal speech, confusion, dizziness, focal weakness, numbness, syncope Psychiatric: ABSENT: anxiety, depression Endocrine: ABSENT: cold intolerance, heat intolerance, polydipsia, polyuria Hematologic/Lymphatic: ABSENT: easy bleeding, easy bruising, lymphadenopathy Physical Exam Vital Signs: Temp Pulse Resp BP Pulse Ox 99.2 F 101 H 27 H 130/114 H 99 07/05/19 07:08 07/05/19 07:08 07/05/19 12:01 07/05/19 12:01 07/05/19 12:01 Intake & Output 07/04/19 07/05/19 07/06/19 06:59 06:59 06:59 Intake Total 120 Output Total 0 Balance 120 Weight 122.9 kg Vitals during dialysis: Blood pressure 148/66, heart rate of 98, respiratory rate of 22 on BiPAP with oxygen saturation of 100%. Blood flow rate of 400 mL/min, dialysate flow rate of 800 mL/min. Exam: General appearance: Currently on BiPAP, cooperative, well-developed, well- nourished, somewhat lethargic but arousable Head exam: PRESENT: atraumatic, normocephalic; face is swollen than usual Eye exam: PRESENT: Conjunctiva [place], EOMI, PERRLA. ABSENT: conjunctival injection, scleral icterus Mouth exam: PRESENT: moist, neck supple, tongue midline Neck exam: PRESENT: full ROM. ABSENT: carotid bruit, JVD, lymphadenopathy, thyromegaly Respiratory exam: PRESENT: Diminished to auscultation bilaterally. ABSENT: rales, rhonchi, stridor, wheezes Cardiovascular exam: PRESENT: RRR, +S1, +S2. ABSENT: systolic murmur Pulses: PRESENT: normal radial pulses, normal dorsalis pedis pulses GI/Abdominal exam: PRESENT: normal bowel sounds, soft. Obese ABSENT: guarding, mass, tenderness Rectal exam: Deferred Extremities exam: PRESENT: full ROM. ABSENT: calf tenderness, pedal edema Musculoskeletal: PRESENT: full ROM. ABSENT: deformity Neurological exam: PRESENT: Lethargic, Oriented to person, Oriented to place, Oriented to time, reflexes normal, CN II-XII grossly intact. ABSENT: motor sensory deficit Psychiatric exam: PRESENT: appropriate affect, normal mood. ABSENT: homicidal ideation, suicidal ideation Skin exam: PRESENT: intact, dry, warm. ABSENT: rash Results Laboratory Results: 07/04/19 23:00 07/04/19 23:00 07/04/19 07/04/19 07/04/19 23:00 23:00 23:00 WBC 9.8 RBC 3.28 L Hgb 9.4 L Hct 29.2 L MCV 89 MCH 28.6 MCHC 32.1 RDW 16.9 H Plt Count 290 Seg Neutrophils % 75.9 Lymphocytes % 12.8 L Monocytes % 6.9 Eosinophils % 3.1 Basophils % 1.3 Absolute Neutrophils 7.4 Absolute Lymphocytes 1.3 Absolute Monocytes 0.7 Absolute Eosinophils 0.3 Absolute Basophils 0.1 Sodium 133.7 L Potassium 6.1 H* Chloride 92 L Carbon Dioxide 23 Anion Gap 19 BUN 65 H Creatinine 10.59 H Est GFR ( Amer) 5 L Est GFR (Non-Af Amer) 4 L Glucose 369 H Calcium 6.6 L* Magnesium 2.0 Total Bilirubin 0.4 AST 25 Alkaline Phosphatase 179 H Ammonia Total Protein 8.2 Albumin 4.4 Amylase 142 H Lipase 393.5 H TSH Free T4 07/04/19 07/05/19 07/05/19 23:00 02:32 02:32 WBC RBC Hgb Hct MCV MCH MCHC RDW Plt Count Seg Neutrophils % Lymphocytes % Monocytes % Eosinophils % Basophils % Absolute Neutrophils Absolute Lymphocytes Absolute Monocytes Absolute Eosinophils Absolute Basophils Sodium Potassium Chloride Carbon Dioxide Anion Gap BUN Creatinine Est GFR ( Amer) Est GFR (Non-Af Amer) Glucose Calcium Magnesium Total Bilirubin AST Alkaline Phosphatase Ammonia < 8.7 L Total Protein Albumin Amylase Lipase TSH 1.10 Free T4 Cancelled 0.57 L 07/04/19 07/04/19 07/04/19 23:00 23:00 23:00 Creatine Kinase 150 H Cancelled CK-MB (CK-2) 0.66 Troponin I 0.049 07/05/19 07/05/19 07/05/19 02:32 02:32 08:23 Creatine Kinase 163 H 146 H CK-MB (CK-2) 0.59 Troponin I 0.058 07/05/19 08:23 Creatine Kinase CK-MB (CK-2) 0.49 Troponin I 0.051 Impressions: Chest X-Ray 07/04/19 22:46 IMPRESSION: Moderate mixed interstitial and airpace opacities. Interval worsening. Differential diagnosis includes pulmonary edema, multifocal pneumonia, and chronic interstitial lung disease. Assessment & Plan - Diagnosis (1) Acute pulmonary edema Is this a current diagnosis for this admission?: Yes Plan: Patient has been presented to the emergency room with recurrent acute pulmonary edema. Patient has also been coming to dialysis treatment with anywhere between 6 to 9 kg above her dry weight. Patient is currently getting emergent hemodialysis treatment with ultrafiltration of hopefully 5 to 6 L at the end of the treatment today. Continue BiPAP but will probably try to wean it off after dialysis today. I plan to do dialysis in this patient for 3 consecutive days starting today to hopefully bring her to her dry weight. As an outpatient I think I will put her on every day dialysis for the next 2 weeks to optimize her and bring her to her dry weight hopefully to prevent this frequent emergency room visits for the same reason of acute pulmonary edema. (2) End stage renal disease on dialysis Is this a current diagnosis for this admission?: Yes Plan: We are doing dialysis today for 4 hours, using the patient's AV fistula, with 2 potassium bath, blood flow rate of 400 mL per minute, dialysate flow rate of 800 mL per minute, ultrafiltration 5 to 6 L as tolerated, no heparin and Procrit with 20,000 units during dialysis intravenously. Patient is currently being monitored very carefully here in the ICU during dialysis treatment. (3) Hyperkalemia Is this a current diagnosis for this admission?: Yes Plan: Urgent dialysis treatment will help this. (4) Hypocalcemia Is this a current diagnosis for this admission?: Yes Plan: This is chronic. Will use 3 calcium bath. We will give calcium supplement as necessary. (5) Anemia in chronic kidney disease (CKD) Qualifiers: Chronic kidney disease stage: on chronic dialysis Qualified Code(s): N18.6 - End stage renal disease; D63.1 - Anemia in chronic kidney disease; Z99.2 - Dependence on renal dialysis Is this a current diagnosis for this admission?: Yes Plan: We will give Procrit during dialysis treatment as needed. (6) Diabetes mellitus type 1 with complications Is this a current diagnosis for this admission?: Yes (7) Hypertension Qualifiers: Is this a current diagnosis for this admission?: Yes - Notes Notes: Thank you very much for this consultation. - Time Time Spent: Greater than 70 Minutes
[2019-07-05 15:31] LABS: CREATINE KINASE MB 0.4 ng/mL (<4.55); TROPONIN I 0.055 ng/mL
--- NOTE | 2019-07-05 19:50 | PDOC H&P ---
History of Present Illness Admission Date/PCP: 07/05/19 02:01 HILARY HERNANDEZ MD History of Present Illness: ERICH GOODMAN is a 34 year old female, She came to the emergency room last night for evaluation of shortness of breath, she was in pulmonary edema, she has had multiple hospital admission for the same problem,She required immediate emergency hemodialysis. Past Medical History Cardiac Medical History: Reports: Coronary Artery Disease, Hypertension, Heart Murmur Pulmonary Medical History: Reports: Asthma, Pneumonia Neurological Medical History: Reports: Migraine, Seizures - only r/t low calcium Endocrine Medical History: Reports: Diabetes Mellitus Type 1 Renal/ Medical History: Reports: End Stage Renal Disease - On hemodialysis MWF Malignancy Medical History: GI Medical History: Musculoskeltal Medical History: Skin Medical History: Reports: Psoriasis Psychiatric Medical History: Reports: Depression Hematology: Reports: Anemia Infectious Medical History: Past Surgical History Past Surgical History: Reports: Appendectomy, Cholecystectomy, Vascular Surgery - Lt AV Fistula and graft; Rt AV fistula Denies: Hysterectomy Social History Smoking Status: Never Smoker Frequency of Alcohol Use: Occasional Hx Recreational Drug Use: No Drugs: None Hx Prescription Drug Abuse: No Family History Family History: Reviewed & Not Pertinent Parental Family History Reviewed: Yes Children Family History Reviewed: Yes Sibling(s) Family History Reviewed.: Yes Medication/Allergy Home Medications: Alprazolam [Xanax 0.5 mg Tablet] 0.5 mg PO BIDP PRN 07/05/19 Buprenorphine HCl [Belbuca] 450 mcg BC Q12 07/05/19 Furosemide [Lasix 80 mg Tablet] 80 mg PO Q8 07/05/19 Gabapentin Enacarbil [Horizant] 300 mg PO MOWEFR 07/05/19 Nifedipine [Nifedipine ER] 60 mg PO BID 07/05/19 Oxcarbazepine [Trileptal] 300 mg PO BID 07/05/19 Oxycodone HCl/Acetaminophen [Percocet 7.5-325 mg Tablet] 1 each PO QIDP PRN 07/05/19 Paroxetine HCl [Paxil] 80 mg PO QPM 07/05/19 Patiromer Calcium Sorbitex [Veltassa] 8.4 gm PO DAILY 07/05/19 Sucroferric Oxyhydroxide [Velphoro] 1,000 mg PO .SNACK 08/14/19 Sucroferric Oxyhydroxide [Velphoro] 1,500 mg PO AC 07/05/19 Tizanidine HCl [Zanaflex 4 Mg Tablet] 4 mg PO BIDP PRN 07/05/19 Zolpidem Tartrate [Ambien] 10 mg PO HSP PRN 07/05/19 Allergies/Adverse Reactions: aspirin [Aspirin] Allergy (Verified 06/25/19 16:20) Anaphylaxis ciprofloxacin [From Cipro] Allergy (Verified 06/25/19 16:20) Anaphylaxis clindamycin [Clindamycin] Allergy (Verified 06/25/19 16:20) hydrocodone [From Vicodin] Allergy (Verified 06/25/19 16:20) ibuprofen [From Motrin] Allergy (Verified 06/25/19 16:20) Anaphylaxis lidocaine [From Lidoderm] Allergy (Verified 06/25/19 16:20) Generalized rash tramadol HCl [From Ultram] Allergy (Verified 06/25/19 16:20) vancomycin [Vancomycin] Allergy (Verified 06/25/19 16:20) Shortness of Breath nitroglycerin [Nitroglycerin] Adverse Reaction (Intermediate, Verified 06/25/19 16:20) Joint pain Review of Systems Constitutional: ABSENT: chills, fever(s), headache(s), weight gain, weight loss Eyes: ABSENT: visual disturbances Ears: ABSENT: hearing changes Cardiovascular: PRESENT: dyspnea on exertion, edema Respiratory: ABSENT: cough, hemoptysis Gastrointestinal: ABSENT: abdominal pain, constipation, diarrhea, hematemesis, hematochezia, nausea, vomiting Genitourinary: ABSENT: dysuria, hematuria Musculoskeletal: ABSENT: joint swelling Integumentary: ABSENT: rash, wounds Neurological: ABSENT: abnormal gait, abnormal speech, confusion, dizziness, focal weakness, syncope Psychiatric: ABSENT: anxiety, depression, homidical ideation, suicidal ideation Endocrine: ABSENT: cold intolerance, heat intolerance, menstrual abnormalities, polydipsia, polyuria Hematologic/Lymphatic: ABSENT: easy bleeding, easy bruising, lymphadenopathy Physical Exam Vital Signs: Temp Pulse Resp BP Pulse Ox 99.2 F 102 H 24 H 155/77 H 100 07/05/19 14:18 07/05/19 14:18 07/05/19 14:18 07/05/19 14:29 07/05/19 14:18 Intake & Output 07/04/19 07/05/1919 06:59 06:59 06:59 Intake Total 120 250 Output Total 0 6300 Balance 120 -6050 Weight 122.9 kg General appearance: PRESENT: no acute distress Head exam: PRESENT: atraumatic, normocephalic Eye exam: PRESENT: PERRLA Ear exam: PRESENT: normal external ear exam Mouth exam: PRESENT: moist, tongue midline Neck exam: PRESENT: full ROM Respiratory exam: PRESENT: clear to auscultation freddy Cardiovascular exam: PRESENT: RRR, +S1, +S2 GI/Abdominal exam: PRESENT: normal bowel sounds, soft Rectal exam: PRESENT: deferred Neurological exam: PRESENT: alert, CN II-XII grossly intact Psychiatric exam: PRESENT: appropriate affect, normal mood Skin exam: PRESENT: dry, intact, warm Results Laboratory Results: 07/04/19 23:00 07/04/19 23:00 07/04/19 07/04/19 07/04/19 23:00 23:00 23:00 WBC 9.8 RBC 3.28 L Hgb 9.4 L Hct 29.2 L MCV 89 MCH 28.6 MCHC 32.1 RDW 16.9 H Plt Count 290 Seg Neutrophils % 75.9 Lymphocytes % 12.8 L Monocytes % 6.9 Eosinophils % 3.1 Basophils % 1.3 Absolute Neutrophils 7.4 Absolute Lymphocytes 1.3 Absolute Monocytes 0.7 Absolute Eosinophils 0.3 Absolute Basophils 0.1 Sodium 133.7 L Potassium 6.1 H* Chloride 92 L Carbon Dioxide 23 Anion Gap 19 BUN 65 H Creatinine 10.59 H Est GFR ( Amer) 5 L Est GFR (Non-Af Amer) 4 L Glucose 369 H Calcium 6.6 L* Magnesium 2.0 Total Bilirubin 0.4 AST 25 Alkaline Phosphatase 179 H Ammonia Total Protein 8.2 Albumin 4.4 Amylase 142 H Lipase 393.5 H TSH Free T4 07/04/19 07/05/19 07/05/19 23:00 02:32 02:32 WBC RBC Hgb Hct MCV MCH MCHC RDW Plt Count Seg Neutrophils % Lymphocytes % Monocytes % Eosinophils % Basophils % Absolute Neutrophils Absolute Lymphocytes Absolute Monocytes Absolute Eosinophils Absolute Basophils Sodium Potassium Chloride Carbon Dioxide Anion Gap BUN Creatinine Est GFR ( Amer) Est GFR (Non-Af Amer) Glucose Calcium Magnesium Total Bilirubin AST Alkaline Phosphatase Ammonia < 8.7 L Total Protein Albumin Amylase Lipase TSH 1.10 Free T4 Cancelled 0.57 L 07/04/19 07/04/19 07/04/19 23:00 23:00 23:00 Creatine Kinase 150 H Cancelled CK-MB (CK-2) 0.66 Troponin I 0.049 07/05/19 07/05/19 07/05/19 02:32 02:32 08:23 Creatine Kinase 163 H 146 H CK-MB (CK-2) 0.59 Troponin I 0.058 07/05/19 07/05/19 07/05/19 08:23 14:55 14:55 Creatine Kinase 138 H CK-MB (CK-2) 0.49 0.40 Troponin I 0.051 0.055 Impressions: Chest X-Ray 07/04/19 22:46 IMPRESSION: Moderate mixed interstitial and airpace opacities. Interval worsening. Differential diagnosis includes pulmonary edema, multifocal pneumonia, and chronic interstitial lung disease. Assessment & Plan - Diagnosis (1) Acute pulmonary edema Is this a current diagnosis for this admission?: Yes Plan: Patient is admitted for management (2) End stage renal disease on dialysis due to type 1 diabetes mellitus Is this a current diagnosis for this admission?: Yes (3) End stage renal disease on dialysis Is this a current diagnosis for this admission?: Yes
[2019-07-06] MEDS ORDERED: ACETAMINOPHEN 325 MG TABLET PO PRN ×2 (00:14→14:00)
[2019-07-06] MEDS ORDERED: NORMAL SALINE 1000 ML 1,000 ML IV PRN (05:00)
[2019-07-06] MEDS: HEPARIN SOD (PORCINE) 5,000 UNIT/ML 1 ML VIAL SUBCUT SCH ×3 (05:47→21:48)
[2019-07-06 06:27] LABS: ABSOLUTE BASOPHILS # (AUTO) 0.1 10^3/uL (0.0-0.2); ABSOLUTE EOSINOPHILS # (AUTO) 0.5 10^3/uL (0.0-0.6); ABSOLUTE LYMPHOCYTES (AUTO) 1.9 10^3/uL (0.5-4.7); ABSOLUTE MONOCYTES (AUTO) 0.8 10^3/uL (0.1-1.4); ABSOLUTE NEUT (AUTO) 5.8 10^3/uL (1.7-8.2); BASOPHILS % (AUTO) 0.6 % (0-2); LYMPHOCYTES % (AUTO) 21.5 % (13-45); MEAN CORPUSCULAR HEMOGLOBIN 28.7 pg (27.0-33.4); MEAN CORPUSCULAR HGB CONC 32.2 g/dL (32.0-36.0); MEAN CORPUSCULAR VOLUME 89 fl (80-97); MONOCYTES % (AUTO) 8.5 % (3-13); PLATELET COUNT 312 10^3/uL (150-450); RED BLOOD COUNT 3.15 10^6/uL (3.72-5.28); RED CELL DISTRIBUTION WIDTH 16.9 % (11.5-14.0); SEGMENTED NEUTROPHILS % (AUTO) 64.4 % (42-78); TOTAL CELLS COUNTED % (AUTO) 100 %; WHITE BLOOD COUNT 9.1 10^3/uL (4.0-10.5)
[2019-07-06 06:46] LABS: ALBUMIN 4.2 g/dL (3.5-5.0); ALKALINE PHOSPHATASE 171 U/L (38-126); ANION GAP 18 (5-19); ASPARTATE AMINO TRANSFERASE 13 U/L (14-36); BILIRUBIN,DIRECT 0.5 mg/dL (0.0-0.4); BILIRUBIN,TOTAL 0.5 mg/dL (0.2-1.3); BLOOD UREA NITROGEN 46 mg/dL (7-20); CALCIUM 7.4 mg/dL (8.4-10.2); CARBON DIOXIDE 27 mmol/L (22-30); CHLORIDE 93 mmol/L (98-107); GLUCOSE 223 mg/dL (75-110); POTASSIUM 5.1 mmol/L (3.6-5.0); TOTAL PROTEIN 7.9 g/dL (6.3-8.2); TRIGLYCERIDES 335 mg/dL (<150)
[2019-07-06 06:57] LABS: DIRECT LDL 125 mg/dL (<100)
[2019-07-06] MEDS: INSULIN LISPRO 100 UNIT/ML 3 ML VIAL SUBCUT SCH ×4 (08:28→21:49)
[2019-07-06] MEDS ORDERED: ALPRAZOLAM 0.5 MG TABLET PO PRN (10:43)
[2019-07-06] MEDS ORDERED: ZOLPIDEM TARTRATE 5 MG TABLET PO PRN (10:43)
[2019-07-06] MEDS ORDERED: (PENDING PHARMACY ID) (Oxycodone Hcl/Acetaminophen [Percocet 7.5-325 Mg Tablet] 1 EACH) PO PRN (10:43)
[2019-07-06] MEDS ORDERED: TIZANIDINE HCL 4 MG TABLET PO PRN (10:43)
[2019-07-06] MEDS ORDERED: SUCROFERRIC OXYHYDROXIDE 1000 MG PO SCH (10:45)
[2019-07-06] MEDS ORDERED: SUCROFERRIC OXYHYDROXIDE 1500 MG PO SCH (11:00)
[2019-07-06] MEDS ORDERED: OXYCODONE HCL IR 5 MG TABLET PO PRN (11:27)
--- NOTE | 2019-07-06 14:12 | PDOC PROGRESS REPORT ---
Subjective Progress Note for:: 07/06/19 Subjective:: I am seeing the patient during dialysis this afternoon. She has been tolerating dialysis pretty well until about 2 hours into dialysis when she started feeling nauseated and her blood pressure went down to about 104/50. Patient is being monitored very well. We will decrease the ultrafiltration to 3 to 4 L today instead of 5 L due to hypotension. I spoke to the patient regarding her diet and fluid intake and she claims that she really does not eat much and she did not really does not drink much fluids in between dialysis. She states that she is trying to lose weight and is trying to exercise. She also has been following up with Lisa Aquino of [facility] for her mood disorders. She has not seen her for a while so I encouraged her to make an appointment soon and to tell her about this frequent hospitalizations. Reason For Visit: ACUTE PULMONARY EDEMA Physical Exam Vital Signs: Temp Pulse Resp BP Pulse Ox 98.5 F 85 18 172/80 H 99 07/06/19 11:04 07/06/19 11:04 07/06/19 11:04 07/06/19 11:04 07/06/19 11:04 Intake & Output 07/05/19 07/06/19 07/07/19 06:59 06:59 06:59 Intake Total 120 934 350 Output Total 0 6300 Balance 120 -5366 350 Weight 122.9 kg 116.9 kg Vitals during dialysis: Blood pressure 141/68, heart rate of 100, blood flow rate of 450 mL/min and dialysate flow rate of 800 mL/min. Exam: General appearance: PRESENT: no acute distress, cooperative, well-developed, well-nourished, presently the patient is already on nasal cannula Head exam: PRESENT: atraumatic, normocephalic, face is still appears to be slightly swollen but not as bad as yesterday. Eye exam: PRESENT: conjunctiva pale, PERRLA. ABSENT: scleral icterus Neck exam: ABSENT: JVD Respiratory exam: PRESENT: Diminished breath sounds. ABSENT: crackles, rales, rhonchi, unlabored, wheezes Cardiovascular exam: PRESENT: Regular rate rhythm -+S1, +S2. ABSENT: diastolic murmur, systolic murmur GI/Abdominal exam: PRESENT: normal bowel sounds, soft. ABSENT: guarding, mass, tenderness Extremities exam: ABSENT: No edema Neurological exam: PRESENT: alert, awake, oriented to person, place and time. Skin exam: PRESENT: dry, warm, Results Laboratory Results: 07/06/19 05:45 07/06/19 05:45 07/06/19 07/06/19 05:45 05:45 WBC 9.1 RBC 3.15 L Hgb 9.0 L Hct 28.0 L MCV 89 MCH 28.7 MCHC 32.2 RDW 16.9 H Plt Count 312 Seg Neutrophils % 64.4 Lymphocytes % 21.5 Monocytes % 8.5 Eosinophils % 5.0 Basophils % 0.6 Absolute Neutrophils 5.8 Absolute Lymphocytes 1.9 Absolute Monocytes 0.8 Absolute Eosinophils 0.5 Absolute Basophils 0.1 Sodium 137.5 Potassium 5.1 H Chloride 93 L Carbon Dioxide 27 Anion Gap 18 BUN 46 H Creatinine 8.84 H Est GFR ( Amer) 6 L Est GFR (Non-Af Amer) 5 L Glucose 223 H Calcium 7.4 L Total Bilirubin 0.5 AST 13 L Alkaline Phosphatase 171 H Total Protein 7.9 Albumin 4.2 Triglycerides 335 H Cholesterol 257.90 H LDL Cholesterol Direct 125 H VLDL Cholesterol 67.0 H HDL Cholesterol 47 07/04/19 07/04/19 07/04/19 23:00 23:00 23:00 Creatine Kinase 150 H Cancelled CK-MB (CK-2) 0.66 Troponin I 0.049 07/05/19 07/05/19 07/05/19 02:32 02:32 08:23 Creatine Kinase 163 H 146 H CK-MB (CK-2) 0.59 Troponin I 0.058 07/05/19 07/05/19 07/05/19 08:23 14:55 14:55 Creatine Kinase 138 H CK-MB (CK-2) 0.49 0.40 Troponin I 0.051 0.055 Impressions: Chest X-Ray 07/04/19 22:46 IMPRESSION: Moderate mixed interstitial and airpace opacities. Interval worsening. Differential diagnosis includes pulmonary edema, multifocal pneumonia, and chronic interstitial lung disease. Assessment & Plan - Diagnosis (1) Acute pulmonary edema Is this a current diagnosis for this admission?: Yes Plan: Improved with ultrafiltration yesterday. Currently only on nasal cannula at 3 L. Plan is to do ultrafiltration and dialysis 3 days in a row. We will repeat chest x-ray after dialysis today. I also talked to the patient regarding daily dialysis for 2 weeks in [place] dialysis unit and she agreed with the plan. (2) End stage renal disease on dialysis Is this a current diagnosis for this admission?: Yes Plan: We will do dialysis today for 3 hours initially for 3.5 hours but will decrease due to hypotension, using the patient's AV fistula, with 2K potassium +3.0 calcium bath, blood flow rate of 450 mL per minute, dialysate flow rate of 800 mL per minute, ultrafiltration 3 to 4 L as tolerated, no heparin and no Procrit today. We will continue to monitor the patient on dialysis and will adjust accordingly. Plan to dialyze again tomorrow. (3) Hyperkalemia Is this a current diagnosis for this admission?: Yes Plan: Improving. Discussed with patient and reiterate low potassium diet. (4) Hypocalcemia Is this a current diagnosis for this admission?: Yes Plan: Likely due to uncontrolled hyperphosphatemia. Continue calcium supplements. Will start calcium carbonate 1 g twice daily. Check phosphorus level. Check PTH. (5) Anemia in chronic kidney disease (CKD) Qualifiers: Chronic kidney disease stage: on chronic dialysis Qualified Code(s): N18.6 - End stage renal disease; D63.1 - Anemia in chronic kidney disease; Z99.2 - Dependence on renal dialysis Is this a current diagnosis for this admission?: Yes Plan: Procrit as needed during dialysis treatments. (6) Diabetes mellitus type 1 with complications Is this a current diagnosis for this admission?: Yes Plan: Uncontrolled with hemoglobin A1c of 12.1. Defer to PCP. (7) Hypertension Qualifiers: Is this a current diagnosis for this admission?: Yes Plan: Labile dependent on volume status. (8) Hyperlipidemia Is this a current diagnosis for this admission?: Yes Plan: Uncontrolled. Defer to PCP. - Notes Notes: Discussed recommendations and plan with Dr. Singleton yesterday. - Time Time with patient: 15-25 minutes
[2019-07-06] MEDS: OXCARBAZEPINE 150 MG TABLET PO SCH ×2 (15:02→21:48)
[2019-07-06] MEDS: NIFEDIPINE 30 MG TAB.ER.24 PO SCH ×2 (15:02→21:47)
[2019-07-06] MEDS: PATIROMER 8.4 GM SUSP PACKET PO SCH (15:02)
[2019-07-06] MEDS: FUROSEMIDE 80 MG TABLET PO SCH ×2 (15:03→21:48)
[2019-07-06] MEDS ORDERED: EPOETIN ALFA INJ 20000 UNIT/1 ML VIAL (RENAL) IV PRN (15:03)
[2019-07-06] MEDS ORDERED: EPOETIN ALFA-EPBX 20,000 UNITS (ESRD) in SYRINGE IV PRN (15:10)
--- NOTE | 2019-07-06 16:03 | RADIOLOGY REPORT (SQ) ---
EXAM DESCRIPTION: CHEST 2 VIEWS COMPLETED DATE/TIME: 07/06/2019 3:40 pm REASON FOR STUDY: Pulmonary edema COMPARISON: 07/04/2019. EXAM PARAMETERS: NUMBER OF VIEWS: two views TECHNIQUE: Digital Frontal and Lateral radiographic views of the chest acquired. RADIATION DOSE: NA LIMITATIONS: none FINDINGS: LUNGS AND PLEURA: Overall improved aeration. Faint perihilar densities. MEDIASTINUM AND HILAR STRUCTURES: No masses or contour abnormalities. HEART AND VASCULAR STRUCTURES: Mild cardiomegaly, unchanged. BONES: No acute findings. HARDWARE: None in the chest. OTHER: No other significant finding. IMPRESSION: OVERALL IMPROVED APPEARANCE. MILD CARDIOMEGALY WITH FAINT PERIHILAR DENSITIES. TECHNICAL DOCUMENTATION: JOB ID: [id number] [employer]- All Rights Reserved Reading location - IP/workstation name: [email or web address]
[2019-07-06] MEDS: PAROXETINE HCL 20 MG TABLET PO SCH (17:08)
[2019-07-06] MEDS: CALCIUM CARBONATE 500 MG TABLET PO SCH (17:08)
--- NOTE | 2019-07-06 21:12 | PDOC PROGRESS REPORT ---
Subjective Progress Note for:: 07/06/19 Subjective:: Patient seen by the bedside she was dialyzed today Reason For Visit: ACUTE PULMONARY EDEMA Physical Exam Vital Signs: Temp Pulse Resp BP Pulse Ox 99.6 F 99 18 149/72 H 98 07/06/19 15:26 07/06/19 15:26 07/06/19 15:26 07/06/19 15:26 07/06/19 16:28 Intake & Output 07/05/19 07/06/19 07/07/19 06:59 06:59 06:59 Intake Total 120 934 912 Output Total 0 6300 3300 Balance 436 -6903 -0939 Weight 122.9 kg 116.9 kg General appearance: PRESENT: no acute distress Eye exam: PRESENT: PERRLA Respiratory exam: PRESENT: clear to auscultation freddy Cardiovascular exam: PRESENT: +S1, +S2 GI/Abdominal exam: PRESENT: soft Neurological exam: PRESENT: alert Results Laboratory Results: 07/06/19 05:45 07/06/19 05:45 07/06/19 07/06/19 05:45 05:45 WBC 9.1 RBC 3.15 L Hgb 9.0 L Hct 28.0 L MCV 89 MCH 28.7 MCHC 32.2 RDW 16.9 H Plt Count 312 Seg Neutrophils % 64.4 Lymphocytes % 21.5 Monocytes % 8.5 Eosinophils % 5.0 Basophils % 0.6 Absolute Neutrophils 5.8 Absolute Lymphocytes 1.9 Absolute Monocytes 0.8 Absolute Eosinophils 0.5 Absolute Basophils 0.1 Sodium 137.5 Potassium 5.1 H Chloride 93 L Carbon Dioxide 27 Anion Gap 18 BUN 46 H Creatinine 8.84 H Est GFR ( Amer) 6 L Est GFR (Non-Af Amer) 5 L Glucose 223 H Calcium 7.4 L Total Bilirubin 0.5 AST 13 L Alkaline Phosphatase 171 H Total Protein 7.9 Albumin 4.2 Triglycerides 335 H Cholesterol 257.90 H LDL Cholesterol Direct 125 H VLDL Cholesterol 67.0 H HDL Cholesterol 47 07/04/19 07/04/19 07/04/19 23:00 23:00 23:00 Creatine Kinase 150 H Cancelled CK-MB (CK-2) 0.66 Troponin I 0.049 07/05/19 07/05/19 07/05/19 02:32 02:32 08:23 Creatine Kinase 163 H 146 H CK-MB (CK-2) 0.59 Troponin I 0.058 07/05/19 07/05/19 07/05/19 08:23 14:55 14:55 Creatine Kinase 138 H CK-MB (CK-2) 0.49 0.40 Troponin I 0.051 0.055 Impressions: Chest X-Ray 07/06/19 00:00 IMPRESSION: OVERALL IMPROVED APPEARANCE. MILD CARDIOMEGALY WITH FAINT PERIHILAR DENSITIES. Assessment & Plan - Diagnosis (1) Acute pulmonary edema Is this a current diagnosis for this admission?: Yes (2) End stage renal disease on dialysis due to type 1 diabetes mellitus Is this a current diagnosis for this admission?: Yes (3) End stage renal disease on dialysis Is this a current diagnosis for this admission?: Yes
[2019-07-06] MEDS: CLONIDINE HCL 0.1 MG TABLET PO SCH (21:46)
[2019-07-06] MEDS: CARVEDILOL 12.5 MG TABLET PO SCH (21:46)
[2019-07-06] MEDS: OXYCODONE-ACETAMINOPHEN 5-325 MG TABLET PO PRN (21:47)
[2019-07-06] MEDS ORDERED: BUPRENORPHINE HCL 450 MCG BC SCH (22:00)
[2019-07-07] MEDS ORDERED: EPOETIN ALFA INJ 20000 UNIT/1 ML VIAL (RENAL) IV PRN (05:00)
[2019-07-07] MEDS ORDERED: NORMAL SALINE 1000 ML 1,000 ML IV PRN (05:00)
[2019-07-07 05:14] LABS: ABSOLUTE BASOPHILS # (AUTO) 0.1 10^3/uL (0.0-0.2); ABSOLUTE EOSINOPHILS # (AUTO) 0.5 10^3/uL (0.0-0.6); ABSOLUTE LYMPHOCYTES (AUTO) 2.3 10^3/uL (0.5-4.7); ABSOLUTE MONOCYTES (AUTO) 0.5 10^3/uL (0.1-1.4); ABSOLUTE NEUT (AUTO) 4.6 10^3/uL (1.7-8.2); BASOPHILS % (AUTO) 0.9 % (0-2); EOSINOPHILS % (AUTO) 6.1 % (0-6); HEMATOCRIT 29.6 % (36.0-47.0); HEMOGLOBIN 9.6 g/dL (12.0-15.5); LYMPHOCYTES % (AUTO) 29.1 % (13-45); MEAN CORPUSCULAR HEMOGLOBIN 28.7 pg (27.0-33.4); MEAN CORPUSCULAR HGB CONC 32.3 g/dL (32.0-36.0); MEAN CORPUSCULAR VOLUME 89 fl (80-97); MONOCYTES % (AUTO) 6.7 % (3-13); PLATELET COUNT 316 10^3/uL (150-450); RED BLOOD COUNT 3.33 10^6/uL (3.72-5.28); RED CELL DISTRIBUTION WIDTH 16.3 % (11.5-14.0); SEGMENTED NEUTROPHILS % (AUTO) 57.2 % (42-78); TOTAL CELLS COUNTED % (AUTO) 100 %; WHITE BLOOD COUNT 8.1 10^3/uL (4.0-10.5)
[2019-07-07 05:37] LABS: ALBUMIN 4.2 g/dL (3.5-5.0); ALKALINE PHOSPHATASE 157 U/L (38-126); ANION GAP 17 (5-19); ASPARTATE AMINO TRANSFERASE 13 U/L (14-36); BILIRUBIN,DIRECT 0.4 mg/dL (0.0-0.4); BILIRUBIN,TOTAL 0.4 mg/dL (0.2-1.3); BLOOD UREA NITROGEN 40 mg/dL (7-20); CALCIUM 8.2 mg/dL (8.4-10.2); CARBON DIOXIDE 28 mmol/L (22-30); CHLORIDE 91 mmol/L (98-107); GLUCOSE 330 mg/dL (75-110); PHOSPHORUS 7.4 mg/dL (2.5-4.5); POTASSIUM 4.6 mmol/L (3.6-5.0)
[2019-07-07] MEDS: CLONIDINE HCL 0.1 MG TABLET PO SCH ×3 (05:45→22:07)
[2019-07-07] MEDS: FUROSEMIDE 80 MG TABLET PO SCH ×3 (05:45→22:07)
[2019-07-07] MEDS: HEPARIN SOD (PORCINE) 5,000 UNIT/ML 1 ML VIAL SUBCUT SCH ×2 (05:45→14:58)
[2019-07-07] MEDS: INSULIN LISPRO 100 UNIT/ML 3 ML VIAL SUBCUT SCH ×4 (05:47→22:08)
[2019-07-07] MEDS ORDERED: EPOETIN ALFA-EPBX 20,000 UNITS (ESRD) in SYRINGE IV PRN (10:31)
[2019-07-07] MEDS ORDERED: (PENDING PHARMACY ID) (Gabapentin Enacarbil [Horizant] 300 MG) PO SCH (10:43)
[2019-07-07] MEDS ORDERED: ONDANSETRON HCL INJ/PF 4 MG/2 ML SDV ONE (12:26)
[2019-07-07] MEDS: CARVEDILOL 12.5 MG TABLET PO SCH ×2 (12:35→22:06)
[2019-07-07] MEDS: CALCIUM CARBONATE 500 MG TABLET PO SCH ×2 (12:36→18:04)
[2019-07-07] MEDS: NIFEDIPINE 30 MG TAB.ER.24 PO SCH ×2 (12:36→22:07)
[2019-07-07] MEDS: PATIROMER 8.4 GM SUSP PACKET PO SCH (12:37)
[2019-07-07] MEDS: OXCARBAZEPINE 150 MG TABLET PO SCH ×2 (12:37→22:07)
--- NOTE | 2019-07-07 13:28 | PDOC PROGRESS REPORT ---
Subjective Progress Note for:: 07/07/19 Subjective:: I saw the patient on dialysis this morning at around 8:30 AM. She is doing well on dialysis and is currently remains to be on nasal cannula only. She does not appear to be short of breath anymore. She is tolerating dialysis when I saw her and has tolerated dialysis throughout the treatment. She did not have any other complaints. Reason For Visit: ACUTE PULMONARY EDEMA Physical Exam Vital Signs: Temp Pulse Resp BP Pulse Ox 97.5 F 82 14 138/68 H 95 07/07/19 05:44 07/07/19 07:00 07/07/19 05:44 07/07/19 05:44 07/07/19 05:44 Intake & Output 07/06/19 07/07/19 07/08/19 06:59 06:59 06:59 Intake Total 934 1512 Output Total 6300 3300 Balance -5301 -1065 Weight 116.9 kg 115.2 kg Vitals during dialysis: Blood pressure 115/70, heart rate of 84, blood flow rate of 450 mL/min and dialysate flow rate of 800 mL/min. Exam: General appearance: PRESENT: no acute distress, cooperative, well-developed, wel l-nourished Head exam: PRESENT: atraumatic, normocephalic; face is less swollen Eye exam: PRESENT: conjunctiva slightly pale, PERRLA. ABSENT: scleral icterus Neck exam: ABSENT: JVD Respiratory exam: PRESENT: Diminished breath sounds. ABSENT: crackles, rales, rhonchi, unlabored, wheezes Cardiovascular exam: PRESENT: Regular rate rhythm -+S1, +S2. ABSENT: diastolic murmur, systolic murmur GI/Abdominal exam: PRESENT: normal bowel sounds, soft. ABSENT: guarding, mass, tenderness Extremities exam: ABSENT: No edema Neurological exam: PRESENT: alert, awake, oriented to person, place and time. Skin exam: PRESENT: dry, warm, Results Laboratory Results: 07/07/19 04:55 07/07/19 04:55 07/07/19 07/07/19 07/07/19 04:55 04:55 04:55 WBC 8.1 RBC 3.33 L Hgb 9.6 L Hct 29.6 L MCV 89 MCH 28.7 MCHC 32.3 RDW 16.3 H Plt Count 316 Seg Neutrophils % 57.2 Lymphocytes % 29.1 Monocytes % 6.7 Eosinophils % 6.1 H Basophils % 0.9 Absolute Neutrophils 4.6 Absolute Lymphocytes 2.3 Absolute Monocytes 0.5 Absolute Eosinophils 0.5 Absolute Basophils 0.1 Sodium 136.0 L Potassium 4.6 Chloride 91 L Carbon Dioxide 28 Anion Gap 17 BUN 40 H Creatinine 7.61 H Est GFR ( Amer) 7 L Est GFR (Non-Af Amer) 6 L Glucose 330 H Calcium 8.2 L Phosphorus 7.4 H Total Bilirubin 0.4 AST 13 L Alkaline Phosphatase 157 H Total Protein 8.0 Albumin 4.2 PTH Intact 1244.0 H 07/04/19 07/04/19 07/04/19 23:00 23:00 23:00 Creatine Kinase 150 H Cancelled CK-MB (CK-2) 0.66 Troponin I 0.049 07/05/19 07/05/19 07/05/19 02:32 02:32 08:23 Creatine Kinase 163 H 146 H CK-MB (CK-2) 0.59 Troponin I 0.058 07/05/19 07/05/19 07/05/19 08:23 14:55 14:55 Creatine Kinase 138 H CK-MB (CK-2) 0.49 0.40 Troponin I 0.051 0.055 Impressions: Chest X-Ray 07/06/19 00:00 IMPRESSION: OVERALL IMPROVED APPEARANCE. MILD CARDIOMEGALY WITH FAINT PERIHILAR DENSITIES. Assessment & Plan - Diagnosis (1) Acute pulmonary edema Is this a current diagnosis for this admission?: Yes Plan: Improved with ultrafiltration. We took off 6.3 L 2 days ago and another 2.3 L yesterday. Her to try to take all of 3 to 4 L today if she tolerates. I also talked to the patient regarding daily dialysis for 2 weeks in [place] dialysis unit and she agreed with the plan. Encourage compliance with this treatment. (2) End stage renal disease on dialysis Is this a current diagnosis for this admission?: Yes Plan: We will do dialysis today for 3.5 hours, using the patient's AV fistula, with 2 potassium bath, blood flow rate of 450 mL per minute, dialysate flow rate of 800 mL per minute, ultrafiltration 3 to 4 L as tolerated, no heparin and Procrit with 20,000 units during dialysis intravenously. Dialysis treatment plan discus sed with her dialysis nurse. Patient will be monitored throughout dialysis treatment. Postdialysis her weight was 112.7 kg. Her admission weight was 124 kg. (3) Hyperkalemia Is this a current diagnosis for this admission?: Yes Plan: Resolved with dialysis. Discussed with patient and reiterate low potassium diet. (4) Hypocalcemia Is this a current diagnosis for this admission?: Yes Plan: Likely due to uncontrolled hyperphosphatemia. Phosphorus is 7.4. Continue calcium supplements. Will start calcium carbonate 1 g twice daily. (5) Anemia in chronic kidney disease (CKD) Qualifiers: Chronic kidney disease stage: on chronic dialysis Qualified Code(s): N18.6 - End stage renal disease; D63.1 - Anemia in chronic kidney disease; Z99.2 - Dependence on renal dialysis Is this a current diagnosis for this admission?: Yes Plan: Procrit as needed during dialysis treatments. (6) Diabetes mellitus type 1 with complications Is this a current diagnosis for this admission?: Yes Plan: Uncontrolled with hemoglobin A1c of 12.1. Defer to PCP. (7) Hypertension Qualifiers: Is this a current diagnosis for this admission?: Yes Plan: Labile dependent on volume status. Continue current blood pressure medications. (8) Hyperlipidemia Is this a current diagnosis for this admission?: Yes Plan: Uncontrolled. Defer to PCP. (9) Hyperphosphatemia Is this a current diagnosis for this admission?: Yes Plan: Continue Velphoro. (10) Secondary hyperparathyroidism (of renal origin) Is this a current diagnosis for this admission?: Yes Plan: Will adjust treatment during dialysis. - Notes Notes: From nephrology standpoint I think the patient can be safely discharged home either today or tomorrow. Patient will be undergoing daily dialysis for the next 2 weeks at [facility]. Patient agreed with the plan. - Time Time with patient: 15-25 minutes
[2019-07-07] MEDS: ONDANSETRON HCL INJ/PF 4 MG/2 ML SDV IV SCH ×2 (13:59→17:41)
[2019-07-07] MEDS: PAROXETINE HCL 20 MG TABLET PO SCH (18:05)
--- NOTE | 2019-07-07 18:48 | PDOC PROGRESS REPORT ---
Subjective Progress Note for:: 07/07/19 Subjective:: Patient had hemodialysis today, she had episode of nausea requiring Zofran Reason For Visit: ACUTE PULMONARY EDEMA Physical Exam Vital Signs: Temp Pulse Resp BP Pulse Ox 97.5 F 96 14 138/68 H 99 07/07/19 05:44 07/07/19 14:00 07/07/19 05:44 07/07/19 05:44 07/07/19 16:03 Intake & Output 07/06/19 07/07/19 07/08/19 06:59 06:59 06:59 Intake Total 934 1512 360 Output Total 6300 3300 3100 Balance -4038 -8868 -0493 Weight 116.9 kg 115.2 kg General appearance: PRESENT: no acute distress Eye exam: PRESENT: PERRLA Respiratory exam: PRESENT: clear to auscultation freddy Cardiovascular exam: PRESENT: +S1, +S2 GI/Abdominal exam: PRESENT: soft Neurological exam: PRESENT: alert Results Laboratory Results: 07/07/19 04:55 07/07/19 04:55 07/07/19 07/07/19 07/07/19 04:55 04:55 04:55 WBC 8.1 RBC 3.33 L Hgb 9.6 L Hct 29.6 L MCV 89 MCH 28.7 MCHC 32.3 RDW 16.3 H Plt Count 316 Seg Neutrophils % 57.2 Lymphocytes % 29.1 Monocytes % 6.7 Eosinophils % 6.1 H Basophils % 0.9 Absolute Neutrophils 4.6 Absolute Lymphocytes 2.3 Absolute Monocytes 0.5 Absolute Eosinophils 0.5 Absolute Basophils 0.1 Sodium 136.0 L Potassium 4.6 Chloride 91 L Carbon Dioxide 28 Anion Gap 17 BUN 40 H Creatinine 7.61 H Est GFR ( Amer) 7 L Est GFR (Non-Af Amer) 6 L Glucose 330 H Calcium 8.2 L Phosphorus 7.4 H Total Bilirubin 0.4 AST 13 L Alkaline Phosphatase 157 H Total Protein 8.0 Albumin 4.2 PTH Intact 1244.0 H 07/04/19 07/04/19 07/04/19 23:00 23:00 23:00 Creatine Kinase 150 H Cancelled CK-MB (CK-2) 0.66 Troponin I 0.049 07/05/19 07/05/19 07/05/19 02:32 02:32 08:23 Creatine Kinase 163 H 146 H CK-MB (CK-2) 0.59 Troponin I 0.058 07/05/19 07/05/19 07/05/19 08:23 14:55 14:55 Creatine Kinase 138 H CK-MB (CK-2) 0.49 0.40 Troponin I 0.051 0.055 Impressions: Chest X-Ray 07/06/19 00:00 IMPRESSION: OVERALL IMPROVED APPEARANCE. MILD CARDIOMEGALY WITH FAINT PERIHILAR DENSITIES. Assessment & Plan - Diagnosis (1) Acute pulmonary edema Is this a current diagnosis for this admission?: Yes (2) End stage renal disease on dialysis due to type 1 diabetes mellitus Is this a current diagnosis for this admission?: Yes (3) End stage renal disease on dialysis Is this a current diagnosis for this admission?: Yes
[2019-07-08] MEDS: OXYCODONE-ACETAMINOPHEN 5-325 MG TABLET PO PRN (00:08)
[2019-07-08] MEDS: ONDANSETRON HCL INJ/PF 4 MG/2 ML SDV IV SCH ×4 (00:08→09:48)
[2019-07-08] MEDS: HEPARIN SOD (PORCINE) 5,000 UNIT/ML 1 ML VIAL SUBCUT SCH ×2 (00:08→05:09)
[2019-07-08] MEDS: CLONIDINE HCL 0.1 MG TABLET PO SCH (05:10)
[2019-07-08] MEDS: FUROSEMIDE 80 MG TABLET PO SCH (05:10)
[2019-07-08 05:20] LABS: ABSOLUTE BASOPHILS # (AUTO) 0.1 10^3/uL (0.0-0.2); ABSOLUTE EOSINOPHILS # (AUTO) 0.4 10^3/uL (0.0-0.6); ABSOLUTE LYMPHOCYTES (AUTO) 2.9 10^3/uL (0.5-4.7); ABSOLUTE MONOCYTES (AUTO) 0.8 10^3/uL (0.1-1.4); ABSOLUTE NEUT (AUTO) 5.2 10^3/uL (1.7-8.2); BASOPHILS % (AUTO) 1.1 % (0-2); EOSINOPHILS % (AUTO) 4.1 % (0-6); HEMATOCRIT 33.5 % (36.0-47.0); HEMOGLOBIN 10.8 g/dL (12.0-15.5); LYMPHOCYTES % (AUTO) 30.7 % (13-45); MEAN CORPUSCULAR HEMOGLOBIN 28.8 pg (27.0-33.4); MEAN CORPUSCULAR HGB CONC 32.3 g/dL (32.0-36.0); MEAN CORPUSCULAR VOLUME 89 fl (80-97); MONOCYTES % (AUTO) 8.7 % (3-13); PLATELET COUNT 315 10^3/uL (150-450); RED BLOOD COUNT 3.75 10^6/uL (3.72-5.28); RED CELL DISTRIBUTION WIDTH 16.6 % (11.5-14.0); SEGMENTED NEUTROPHILS % (AUTO) 55.4 % (42-78); TOTAL CELLS COUNTED % (AUTO) 100 %; WHITE BLOOD COUNT 9.4 10^3/uL (4.0-10.5)
[2019-07-08 05:35] LABS: ALBUMIN 4.5 g/dL (3.5-5.0); ALKALINE PHOSPHATASE 160 U/L (38-126); ASPARTATE AMINO TRANSFERASE 14 U/L (14-36); BILIRUBIN,DIRECT 0.4 mg/dL (0.0-0.4); BILIRUBIN,TOTAL 0.4 mg/dL (0.2-1.3); BLOOD UREA NITROGEN 36 mg/dL (7-20); CALCIUM 8.8 mg/dL (8.4-10.2); GLUCOSE 286 mg/dL (75-110); POTASSIUM 5.1 mmol/L (3.6-5.0); TOTAL PROTEIN 8.3 g/dL (6.3-8.2)
[2019-07-08 05:40] LABS: CARBON DIOXIDE 26 mmol/L (22-30); CHLORIDE 89 mmol/L (98-107)
[2019-07-08 05:56] LABS: ANION GAP 20 (5-19)
[2019-07-08] MEDS: INSULIN LISPRO 100 UNIT/ML 3 ML VIAL SUBCUT SCH ×2 (08:00→11:59)
[2019-07-08] MEDS: NIFEDIPINE 30 MG TAB.ER.24 PO SCH (09:47)
[2019-07-08] MEDS: CALCIUM CARBONATE 500 MG TABLET PO SCH (09:48)
[2019-07-08] MEDS: CARVEDILOL 12.5 MG TABLET PO SCH (09:48)
[2019-07-08] MEDS: OXCARBAZEPINE 150 MG TABLET PO SCH (09:48)
[2019-07-08] MEDS: PATIROMER 8.4 GM SUSP PACKET PO SCH (09:48)
--- NOTE | 2019-07-08 11:00 | PDOC DISCHARGE SUMMARY ---
General - Admit/Disc Date/PCP Admission Date/Primary Care Provider: 07/05/19 02:01 HILARY HERNANDEZ MD Discharge Date: 07/08/19 - Discharge Diagnosis (1) Acute pulmonary edema Is this a current diagnosis for this admission?: Yes (2) End stage renal disease on dialysis due to type 1 diabetes mellitus Is this a current diagnosis for this admission?: Yes (3) End stage renal disease on dialysis Is this a current diagnosis for this admission?: Yes - Additional Information Discharge Diet: Cardiac, Diabetic, Other (Comments) Discharge Activity: Activity As Tolerated, Balance Activity w/Rest, Weigh Daily Prescriptions: Insulin Detemir [Levemir] 100 unit SQ BID #12 vial Home Medications: Alprazolam [Xanax 0.5 mg Tablet] 0.5 mg PO BIDP PRN 07/05/19 Buprenorphine HCl [Belbuca] 450 mcg BC Q12 07/05/19 Furosemide [Lasix 80 mg Tablet] 80 mg PO Q8 07/05/19 Gabapentin Enacarbil [Horizant] 300 mg PO MOWEFR 07/05/19 Nifedipine [Nifedipine ER] 60 mg PO BID 07/05/19 Oxcarbazepine [Trileptal] 300 mg PO BID 07/05/19 Oxycodone HCl/Acetaminophen [Percocet 7.5-325 mg Tablet] 1 each PO QIDP PRN 07/05/19 Paroxetine HCl [Paxil] 80 mg PO QPM 07/05/19 Patiromer Calcium Sorbitex [Veltassa] 8.4 gm PO DAILY 07/05/19 Sucroferric Oxyhydroxide [Velphoro] 1,000 mg PO .SNACK 07/05/19 Sucroferric Oxyhydroxide [Velphoro] 1,500 mg PO AC 07/05/19 Insulin Detemir [Levemir] 100 unit SQ BID #12 vial 07/08/19 History of Present Illness History of Present Illness: ERICH GOODMAN is a 34 year old female, She came to the emergency room last night for evaluation of shortness of breath, she was in pulmonary edema, she has had multiple hospital admission for the same problem,She required immediate emergency hemodialysis. Hospital Course Hospital Course: Patient was admitted for the management of acute pulmonary edema, uncontrolled diabetes mellitus. She was hemodialyzed in the hospital on a daily basis. The diabetes was poorly controlled she normally uses basal insulin, Levemir, this was not listed in the medication reconciliation so patient was only on short acting Humalog which is not adequate. She will be discharged home today to follow outpatient with daily hemodialysis this was scheduled by the hand stone polisher yesterday. She has no new complaints today Physical Exam Vital Signs: Temp Pulse Resp BP Pulse Ox 98.4 F 76 16 103/47 L 98 07/08/19 07:31 07/08/19 07:31 07/08/19 07:31 07/08/19 07:31 07/08/19 07:31 Intake & Output 07/07/19 07/08/19 07/09/19 06:59 06:59 06:59 Intake Total 1512 930 Output Total 3300 3100 Balance -1788 -2170 Weight 115.2 kg 114.3 kg General appearance: PRESENT: no acute distress, well-developed, well-nourished Head exam: PRESENT: atraumatic, normocephalic Eye exam: PRESENT: conjunctiva pink, EOMI, PERRLA Ear exam: PRESENT: normal external ear exam Mouth exam: PRESENT: moist, tongue midline Neck exam: PRESENT: full ROM Respiratory exam: PRESENT: clear to auscultation freddy Cardiovascular exam: PRESENT: RRR, +S1, +S2 Pulses: PRESENT: normal dorsalis pedis pul, +2 pedal pulses bilateral Vascular exam: PRESENT: normal capillary refill GI/Abdominal exam: PRESENT: normal bowel sounds, soft Rectal exam: PRESENT: deferred Neurological exam: PRESENT: alert, awake, oriented to person, oriented to place, oriented to time, oriented to situation, CN II-XII grossly intact Psychiatric exam: PRESENT: appropriate affect, normal mood Skin exam: PRESENT: dry, intact, warm Results Laboratory Results: 07/08/19 04:40 07/08/19 04:40 07/08/19 07/08/19 04:40 04:40 WBC 9.4 RBC 3.75 Hgb 10.8 L Hct 33.5 L MCV 89 MCH 28.8 MCHC 32.3 RDW 16.6 H Plt Count 315 Seg Neutrophils % 55.4 Lymphocytes % 30.7 Monocytes % 8.7 Eosinophils % 4.1 Basophils % 1.1 Absolute Neutrophils 5.2 Absolute Lymphocytes 2.9 Absolute Monocytes 0.8 Absolute Eosinophils 0.4 Absolute Basophils 0.1 Sodium 135.4 L Potassium 5.1 H Chloride 89 L Carbon Dioxide 26 Anion Gap 20 H BUN 36 H Creatinine 6.41 H Est GFR ( Amer) 9 L Est GFR (Non-Af Amer) 7 L Glucose 286 H Calcium 8.8 Total Bilirubin 0.4 AST 14 Alkaline Phosphatase 160 H Total Protein 8.3 H Albumin 4.5 07/04/19 07/04/19 07/04/19 23:00 23:00 23:00 Creatine Kinase 150 H Cancelled CK-MB (CK-2) 0.66 Troponin I 0.049 07/05/19 07/05/19 07/05/19 02:32 02:32 08:23 Creatine Kinase 163 H 146 H CK-MB (CK-2) 0.59 Troponin I 0.058 07/05/19 07/05/19 07/05/19 08:23 14:55 14:55 Creatine Kinase 138 H CK-MB (CK-2) 0.49 0.40 Troponin I 0.051 0.055 Impressions: Chest X-Ray 07/06/19 00:00 IMPRESSION: OVERALL IMPROVED APPEARANCE. MILD CARDIOMEGALY WITH FAINT PERIHILAR DENSITIES. Qualifiers - * PATIENT BEING DISCHARGED WITH ANY OF THE FOLLOWING DIAGNOSIS: No VTE patient discharged on overlapping Therapy?: Yes Stroke Pt being discharged on Anti-thrombolytic therapy?: No Reason(s) for not prescribing Anti-thrombolytic therapy:: Not indicated Stroke Pt being discharged on Anti-coagulation therapy?: No Reason(s) for not prescribing Anti-coagulation therapy:: Not indicated Stroke Pt being discharged on Statins?: No Reason(s) for not prescribing Statins therapy:: Not indicated ME Pt being discharged on Aspirin therapy?: No Reason(s) for not prescribing Aspirin therapy:: Not indicated ME Pt being discharged on Statins?: No Reason(s) for not prescribing Statin therapy:: Not indicated ME Pt discharged ACEI/ARBS?: No Reason(s) for not prescribing ACEI/ARBS:: Not indicated Acute Heart Failure - Is this a Heart Failure Patient?: No d) Discharged on evidence-based Beta waylon(carvedilol, sustained release metoprolol succinate, or bisoprolol)?: Yes
[2019-07-08 12:13] VITALS: BP 131/63
== END 2019-07-08 12:25 | disposition home or self-care (01) | DRG 682 ==
LOC: ER 22:43 → EH 07-05 02:01 → 3N 07-05 03:53
PROVIDERS: ADMIT Internal Medicine; ATTEND Internal Medicine
PROC: 5A1D70Z Performance of Urinary Filtration, Intermittent, Less than 6 Hours Per Day (ICD-10-PCS; principal; 2019-07-05)
DX: I12.0 Hypertensive chronic kidney disease with stage 5 chronic kidney disease or end stage renal disease (principal); N18.6 End stage renal disease; N25.81 Secondary hyperparathyroidism of renal origin; E87.5 Hyperkalemia; E83.51 Hypocalcemia; E10.22 Type 1 diabetes mellitus with diabetic chronic kidney disease; E10.65 Type 1 diabetes mellitus with hyperglycemia; D63.1 Anemia in chronic kidney disease; E83.39 Other disorders of phosphorus metabolism; Z99.2 Dependence on renal dialysis; Z79.899 Other long term (current) drug therapy
CPT/HCPCS: 36415; 70450; 71045; 71046; 80048; 80053; 80061; 80076; 82140; 82150; 82550; 82553; 82962; 83036; 83690; 83735; 83970; 84100; 84132; 84439; 84443; 84484; 84703; 85025; 85610; 87040; 93005; 93010; 94640; 94660; 96374; 96375; 96376; 99285; G0257; J0610; J1170; J1815; J1940; J2270; J2405; J2550; J3490; Q4081; Q5105

== ENCOUNTER 2019-07-25 11:44 | Emergency (ER) | payer MEDICARE, MEDICAID ==
[2019-07-25] MEDS ORDERED: SODIUM BICARBONATE 8.4% INJ 50 MEQ/50 ML DISP.SYRIN IV ONE (11:55)
[2019-07-25] MEDS ORDERED: INSULIN REG, HUMAN 100 UNIT/ML 3 ML VIAL (PYX) IV ONE ×2 (11:55→14:02)
[2019-07-25] MEDS ORDERED: ONDANSETRON HCL INJ/PF 4 MG/2 ML SDV IV ONE (11:58)
[2019-07-25] MEDS ORDERED: ONDANSETRON HCL INJ/PF 4 MG/2 ML SDV ONE (11:59)
--- NOTE | 2019-07-25 12:36 | ER Document Report ---
Entered by TRENT VILLAREAL SCRIBE 07/25/19 1221 Acting as scribe for:LEVI PATRICK MD ED General - General Stated Complaint: WEAKNESS Time Seen by Provider: 07/25/19 11:54 Primary Care Provider: HILARY HERNANDEZ MD [Primary Care Provider] - Follow up as needed Mode of Arrival: Medic Information source: Patient Notes: Patient is a 34-year-old female well-known to the emergency department that presents today with complaints of generalized weakness. Patient states she took her son to school this morning and when she returned home she could "almost not get out of her truck" because of non-focal generalized weakness. Patient states when she feels like this, her potassium is usually elevated. Patient now dialyzes x7 days a week and she was dialyzed yesterday without complication. Patient states she has nausea but denies vomiting. TRAVEL OUTSIDE OF THE [place] IN LAST 30 DAYS: No - Related Data Allergies/Adverse Reactions: aspirin [Aspirin] Allergy (Verified 07/25/19 11:49) Anaphylaxis ciprofloxacin [From Cipro] Allergy (Verified 07/25/19 11:49) Anaphylaxis clindamycin [Clindamycin] Allergy (Verified 07/25/19 11:49) hydrocodone [From Vicodin] Allergy (Verified 07/25/19 11:49) ibuprofen [From Motrin] Allergy (Verified 07/25/19 11:49) Anaphylaxis lidocaine [From Lidoderm] Allergy (Verified 07/25/19 11:49) Generalized rash tramadol HCl [From Ultram] Allergy (Verified 07/25/19 11:49) vancomycin [Vancomycin] Allergy (Verified 07/25/19 11:49) Shortness of Breath nitroglycerin [Nitroglycerin] Adverse Reaction (Intermediate, Verified 07/25/19 11:49) Joint pain Past Medical History - General Information source: Patient, [facility] Records - Social History Smoking Status: Never Smoker Cigarette use (# per day): No Chew tobacco use (# tins/day): No Smoking Education Provided: No Frequency of alcohol use: None Drug Abuse: None Lives with: Family Family History: Reviewed & Not Pertinent - Past Medical History Cardiac Medical History: Reports: Hx Congestive Heart Failure, Hx Coronary Artery Disease, Hx Hypertension, Hx Heart Murmur Pulmonary Medical History: Reports: Hx Asthma, Hx Pneumonia Neurological Medical History: Reports: Hx Migraine, Hx Seizures - only r/t low calcium Endocrine Medical History: Reports: Hx Diabetes Mellitus Type 1, Hx Diabetes Mellitus Type 2 Renal/ Medical History: Reports: Hx End Stage Renal Disease - On hemodialysis 7 days a week, Hx Hemodialysis, Hx Ovarian Cysts Malignancy Medical History: GI Medical History: Reports: Hx Gastritis Musculoskeletal Medical History: Skin Medical History: Reports Hx Psoriasis Psychiatric Medical History: Reports: Hx Depression Traumatic Medical History: Infectious Medical History: Past Surgical History: Reports: Hx Appendectomy, Hx Cholecystectomy, Hx Vascular Surgery - Lt AV Fistula and graft; Rt AV fistula - Immunizations Immunizations up to date: Yes Hx Diphtheria, Pertussis, Tetanus Vaccination: Yes Hx Pneumococcal Vaccination: 08/22/11 Review of Systems - Review of Systems Constitutional: See HPI, Weakness - general, Other - believes her potassium is elevated EENT: No symptoms reported Cardiovascular: No symptoms reported Respiratory: No symptoms reported Gastrointestinal: See HPI, Nausea. denies: Vomiting Genitourinary: No symptoms reported Female Genitourinary: No symptoms reported Musculoskeletal: No symptoms reported Skin: No symptoms reported Hematologic/Lymphatic: No symptoms reported Neurological/Psychological: No symptoms reported -: Yes All other systems reviewed and negative Physical Exam - Vital signs Vitals: Temp BP 98.5 F 182/94 H 07/25/19 11:54 07/25/19 11:54 - Notes Notes: Physical Exam: General: Alert, appears at baseline, obese. HEENT: Normocephalic. Atraumatic. PERRL. Extraocular movements intact. Oropharynx clear. Neck: Supple. Non-tender. Respiratory: No respiratory distress. Clear and equal breath sounds bilaterally. Cardiovascular: Regular rate and rhythm. Abdominal: Normal Inspection. Non-tender. No distension. Normal Bowel Sounds. Back: No gross abnormalities. Extremities: Moves all four extremities. Upper extremities: Normal inspection. Normal ROM. Lower extremities: Normal inspection. No edema. Normal ROM. Neurological: Normal cognition. AAOx4. Normal speech. Psychological: Appears depressed Skin: Warm. Dry. Normal color. Course - Vital Signs Vital signs: Temp Pulse Resp BP Pulse Ox 98.5 F 11 L 194/97 H 100 07/25/19 11:54 07/25/19 16:08 07/25/19 16:08 07/25/19 16:08 - Laboratory Result Diagrams: 07/25/19 12:25 07/25/19 12:25 Laboratory results interpreted by me: 07/25/19 07/25/19 12:25 12:25 RBC 3.45 L Hgb 9.9 L Hct 30.6 L RDW 15.9 H Sodium 126.9 L Potassium 6.7 H* Chloride 85 L BUN 60 H Creatinine 8.01 H Est GFR ( Amer) 7 L Est GFR (MDRD) Non-Af 6 L Glucose 799 H* Calcium 7.4 L Direct Bilirubin 0.5 H Alkaline Phosphatase 177 H - EKG Interpretation by Me EKG shows normal: Sinus rhythm, Mckittrick, QRS Complexes, ST-T Waves. abnormal: Int ervals - Prolonged QT interval Rate: Normal - 86 Mckittrick/QRS: Left axis deviation P Waves: LAE Heart block present: 1st Degree - Consults Dr. Farah Time consulted: 13:30 Consulted provider: other - Will arrange for the patient to get dialysis in the emergency room. - Transfer of Care Care transferred to following provider: Dr. Shanna Conde Notes: 07/25/19 16:47 Patient is presently being dialyzed. She should be done around 7 PM. She will need her blood sugars checked periodically as she is on an insulin drip. She should have her Chem-7 repeated after she finishes dialysis. If there are no significant abnormalities, [facility], check her sugars, and go to dialysis tomorrow as scheduled. Critical Care Note - Critical Care Note Total time excluding time spent on procedures (mins): 40 Discharge - Discharge Clinical Impression: Hyperkalemia, Hyperglycemia, Hyponatremia, Weak, ESRD (end stage renal disease) on dialysis Condition: Stable Disposition: HOME, SELF-CARE Additional Instructions: Continue your regular medications. Be sure to check your blood sugars frequently. Go to dialysis tomorrow as scheduled. Follow-up with Dr. Hernandez and Dr. Farah Referrals: HILARY HERNANDEZ MD [Primary Care Provider] - Follow up as needed Scribe Attestation: 07/25/19 16:46 I personally performed the services described in the documentation, reviewed and edited the documentation which was dictated to the scribe in my presence, and it accurately records my words and actions. I personally performed the services described in the documentation, reviewed and edited the documentation which was dictated to the scribe in my presence, and it accurately records my words and actions.
[2019-07-25 12:54] LABS: ABSOLUTE BASOPHILS # (AUTO) 0.1 10^3/uL (0.0-0.2); ABSOLUTE EOSINOPHILS # (AUTO) 0.4 10^3/uL (0.0-0.6); ABSOLUTE LYMPHOCYTES (AUTO) 1.7 10^3/uL (0.5-4.7); ABSOLUTE MONOCYTES (AUTO) 0.7 10^3/uL (0.1-1.4); ABSOLUTE NEUT (AUTO) 4.6 10^3/uL (1.7-8.2); BASOPHILS % (AUTO) 1.1 % (0-2); EOSINOPHILS % (AUTO) 5.9 % (0-6); HEMATOCRIT 30.6 % (36.0-47.0); HEMOGLOBIN 9.9 g/dL (12.0-15.5); LYMPHOCYTES % (AUTO) 22.6 % (13-45); MEAN CORPUSCULAR HEMOGLOBIN 28.6 pg (27.0-33.4); MEAN CORPUSCULAR HGB CONC 32.2 g/dL (32.0-36.0); MEAN CORPUSCULAR VOLUME 89 fl (80-97); MONOCYTES % (AUTO) 9.1 % (3-13); PLATELET COUNT 347 10^3/uL (150-450); RED BLOOD COUNT 3.45 10^6/uL (3.72-5.28); RED CELL DISTRIBUTION WIDTH 15.9 % (11.5-14.0); SEGMENTED NEUTROPHILS % (AUTO) 61.3 % (42-78); TOTAL CELLS COUNTED % (AUTO) 100 %; WHITE BLOOD COUNT 7.4 10^3/uL (4.0-10.5)
[2019-07-25 13:11] LABS: ALBUMIN 4.2 g/dL (3.5-5.0); ALKALINE PHOSPHATASE 177 U/L (38-126); ASPARTATE AMINO TRANSFERASE 14 U/L (14-36); BILIRUBIN,DIRECT 0.5 mg/dL (0.0-0.4); BILIRUBIN,TOTAL 0.5 mg/dL (0.2-1.3); BLOOD UREA NITROGEN 60 mg/dL (7-20); CALCIUM 7.4 mg/dL (8.4-10.2); TOTAL PROTEIN 7.7 g/dL (6.3-8.2)
[2019-07-25 13:16] LABS: ANION GAP 19 (5-19); CARBON DIOXIDE 23 mmol/L (22-30); CHLORIDE 85 mmol/L (98-107)
[2019-07-25] MEDS ORDERED: CALCIUM GLUCONATE 1000 MG/10 ML INJ IV ONE (13:27)
[2019-07-25 13:33] LABS: POTASSIUM 6.7 mmol/L (3.6-5.0)
[2019-07-25 13:36] LABS: GLUCOSE 799 mg/dL (75-110)
[2019-07-25] MEDS ORDERED: INSULIN REG, HUMAN 100 UNIT/ML 3 ML VIAL (PYX) ONE (14:19)
[2019-07-25] MEDS ORDERED: HEPARIN SOD (PORCINE) 1,000 UNIT/ML 10 ML VIAL ONE (17:08)
--- NOTE | 2019-07-25 17:11 | PDOC CONSULTATION ---
Consultation Consult Date: 07/25/19 Provider Consulted: ERICA IVY Consult reason:: I was asked to consult for emergency Hemodialysis due to hyperkalemia. History of Present Illness Admission Date/PCP: HILARY HERNANDEZ MD History of Present Illness: ERICH GOODMAN is a 34 year old -[place] lady well-known to me with history of ESRD on maintenance daily hemodialysis now for 6 days a week every week for the last 2 weeks, diabetes mellitus type 1, hypertension, morbid obesity and history of noncompliance with multiple hospitalizations who called the EMS this morning because of profound generalized weakness. Patient apparently took her son to school and upon return could not get out of her truck because of generalized weakness so she called EMS. She told EMS this is how she feels when her potassium is elevated. She also has some headache, nausea and right neck pain. On initial evaluation the patient has elevated potassium of 6.7, sodium of 126.9, calcium 7.4 and blood sugar of 799. Her lungs are clear. She was given a dose of calcium gluconate, sodium bicarbonate and was started on low-dose insulin drip. I was then called for emergent hemodialysis for hyperkal emia. Patient was last dialyzed yesterday and apparently she stayed in her full 4-1/2 hours treatment with ultrafiltration of about 4 kg. However patient still has another 4 kg on her above her dry weight when she got out of dialysis yesterday. When asked, the patient denies eating anything high in potassium overnight. Her blood pressure is also elevated on presentation and she admits she has not taken her medications because she was supposed to go to dialysis this morning. I immediately arrange for emergent hemodialysis in the emergency room. When I saw her this afternoon she is already on dialysis and so far tolerating dialysis well. Her blood pressure remains to be elevated. Patient will be monitored throughout dialysis treatment. Treatment plan discussed with our dialysis nurse, Kim. Past Medical History Cardiac Medical History: Reports: Coronary Artery Disease, Heart Murmur, Hypertension-primary Pulmonary Medical History: Reports: Asthma, Pneumonia Neurological Medical History: Reports: Migraine, Seizures - only r/t low calcium Endocrine Medical History: Reports: Diabetes Mellitus Type 1 Complications of Diabetes: Reports: Autonomic Neuropathy, Nephropathy, Retinopathy Renal/ Medical History: Reports: End Stage Renal Disease - On hemodialysis 7 days a week, Hypocalcemia, Hyperkalemia, Hyperphosphatemia, Renal Osteodystropy Malignancy Medical History: GI Medical History: Musculoskeltal Medical History: Skin Medical History: Reports: Psoriasis Psychiatric Medical History: Reports: Depression Infectious Medical History: Hematology Medical History: Reports Anemia of Chronic Kidney Disease Past Surgical History Past Surgical History: Reports: Appendectomy, Cholecystectomy, Dialysis Access Surgery AVF, Vascular Surgery - Lt AV Fistula and graft; Rt AV fistula Social History Information Source: Patient, [facility] Records Lives with: Family Smoking Status: Never Smoker Frequency of Alcohol Use: Occasional Hx Recreational Drug Use: No Drugs: None Hx Prescription Drug Abuse: No Family History Family History: Reviewed & Not Pertinent Parental Family History Reviewed: Yes Children Family History Reviewed: Yes Sibling(s) Family History Reviewed.: Yes Medication/Allergy Home Medications: Alprazolam [Xanax 0.5 mg Tablet] 0.5 mg PO BIDP PRN 07/05/19 Buprenorphine HCl [Belbuca] 450 mcg BC Q12 07/05/19 Furosemide [Lasix 80 mg Tablet] 80 mg PO Q8 07/05/19 Gabapentin Enacarbil [Horizant] 300 mg PO MOWEFR 07/05/19 Oxcarbazepine [Trileptal] 300 mg PO BID 07/05/19 Oxycodone HCl/Acetaminophen [Percocet 7.5-325 mg Tablet] 1 each PO QIDP PRN 07/05/19 Paroxetine HCl [Paxil] 80 mg PO QPM 07/05/19 Sucroferric Oxyhydroxide [Velphoro] 1,000 mg PO .SNACK 07/05/19 Sucroferric Oxyhydroxide [Velphoro] 1,500 mg PO AC 07/05/19 Insulin Detemir [Levemir] 35 unit SQ DAILY 07/25/19 Insulin Lispro [Humalog Insulin (Lispro) 100 unit/mL] 0 unit SUBCUT .SLIDING SCALE 07/25/19 Tizanidine HCl [Zanaflex 4 Mg Tablet] 4 mg PO BIDP PRN 07/25/19 Zolpidem Tartrate [Ambien] 10 mg PO HSP PRN 07/25/19 Allergies/Adverse Reactions: aspirin [Aspirin] Allergy (Verified 07/25/19 11:49) Anaphylaxis ciprofloxacin [From Cipro] Allergy (Verified 07/25/19 11:49) Anaphylaxis clindamycin [Clindamycin] Allergy (Verified 07/25/19 11:49) hydrocodone [From Vicodin] Allergy (Verified 07/25/19 11:49) ibuprofen [From Motrin] Allergy (Verified 07/25/19 11:49) Anaphylaxis lidocaine [From Lidoderm] Allergy (Verified 07/25/19 11:49) Generalized rash tramadol HCl [From Ultram] Allergy (Verified 07/25/19 11:49) vancomycin [Vancomycin] Allergy (Verified 07/25/19 11:49) Shortness of Breath nitroglycerin [Nitroglycerin] Adverse Reaction (Intermediate, Verified 07/25/19 11:49) Joint pain Review of Systems All systems: reviewed and no additional remarkable complaints except as stated Review of Systems: Constitutional: ABSENT: chills, fatigue, fever(s), weight gain, weight loss; admits headache and generalized weakness Eyes: ABSENT: visual disturbances Ears: ABSENT: hearing changes Cardiovascular: ABSENT: chest pain, dyspnea on exertion, edema, orthropnea, palpitations Respiratory: ABSENT: cough, dyspnea, hemoptysis Gastrointestinal: ABSENT: abdominal pain, constipation, diarrhea, hematemesis, hematochezia, vomiting; admits nausea Genitourinary: ABSENT: dysuria, hematuria Musculoskeletal: ABSENT: joint swelling Integumentary: ABSENT: rash, wounds Neurological: ABSENT: abnormal gait, abnormal speech, confusion, dizziness, focal weakness, numbness, syncope Psychiatric: ABSENT: anxiety, depression Endocrine: ABSENT: cold intolerance, heat intolerance, polydipsia, polyuria Hematologic/Lymphatic: ABSENT: easy bleeding, easy bruising, lymphadenopathy Physical Exam Vital Signs: Temp Pulse Resp BP Pulse Ox 98.5 F 11 L 194/97 H 100 07/25/19 11:54 07/25/19 16:08 07/25/19 16:08 07/25/19 16:08 Intake & Output 07/24/19 07/25/19 07/26/19 06:59 06:59 06:59 Weight 123.3 kg Vitals during dialysis: Blood pressure 194/97, heart rate of 88, oxygen saturation of 100% in room air, respiration of 13, blood flow rate of 400 mL/min and dialysate flow rate of 800 mL/min. Exam: General appearance: No acute distress, cooperative, well-developed, well- nourished Head exam: PRESENT: atraumatic, normocephalic; face appears swollen Eye exam: PRESENT: Conjunctiva slightly pale, EOMI, PERRLA. ABSENT: conjunctival injection, scleral icterus Mouth exam: PRESENT: moist, neck supple, tongue midline Neck exam: PRESENT: full ROM. ABSENT: carotid bruit, JVD, lymphadenopathy, thyromegaly Respiratory exam: PRESENT: clear to auscultation bilaterally. ABSENT: rales, rhonchi, stridor, wheezes Cardiovascular exam: PRESENT: RRR, +S1, +S2. ABSENT: systolic murmur Pulses: PRESENT: normal radial pulses, normal dorsalis pedis pulses GI/Abdominal exam: PRESENT: normal bowel sounds, soft. ABSENT: guarding, mass, tenderness Rectal exam: Deferred Extremities exam: PRESENT: full ROM. ABSENT: calf tenderness, pedal edema Musculoskeletal: PRESENT: full ROM. ABSENT: deformity Neurological exam: PRESENT: alert, Awake, Oriented to person, Oriented to place, Oriented to time, reflexes normal, CN II-XII grossly intact. ABSENT: motor sensory deficit Psychiatric exam: PRESENT: appropriate affect, normal mood. ABSENT: homicidal ideation, suicidal ideation Skin exam: PRESENT: intact, dry, warm. ABSENT: rash Results Laboratory Results: 07/25/19 12:25 07/25/19 12:25 07/25/19 07/25/19 12:25 12:25 WBC 7.4 RBC 3.45 L Hgb 9.9 L Hct 30.6 L MCV 89 MCH 28.6 MCHC 32.2 RDW 15.9 H Plt Count 347 Seg Neutrophils % 61.3 Sodium 126.9 L Potassium 6.7 H* Chloride 85 L Carbon Dioxide 23 Anion Gap 19 BUN 60 H Creatinine 8.01 H Est GFR ( Amer) 7 L Glucose 799 H* Calcium 7.4 L Magnesium 2.0 Total Bilirubin 0.5 AST 14 Alkaline Phosphatase 177 H Total Protein 7.7 Albumin 4.2 Assessment & Plan - Diagnosis (1) Hyperkalemia Is this a current diagnosis for this admission?: Yes Plan: Patient was just dialyzed yesterday and presenting today with hyperkalemia. This could be due to hyperglycemia, noncompliance with diet less than 24 hours after last dialysis, and recirculation of her vascular access. Emergent hemodialysis arranged in the emergency room and is currently being done. (2) End stage renal disease on dialysis Is this a current diagnosis for this admission?: Yes Plan: We will do dialysis today for 3 hours, using the patient's right arm AV fistula, with 1K/3 calcium bath for 2 hours followed by 2K/3 calcium bath, blood flow rate of 400-450 mL per minute, dialysate flow rate of 800 mL per minute, ultrafiltration 4 L as tolerated, heparin bolus of 2000 units and no Procrit. Patient will be monitored throughout dialysis treatment and adjust treatment accordingly. Discussed plan with her dialysis nurse. (3) Hyperglycemia Is this a current diagnosis for this admission?: Yes Plan: Patient was placed on low dose insulin drip by Dr. Mcknight from the emergency room. (4) Hypocalcemia Is this a current diagnosis for this admission?: Yes Plan: We will use a high calcium bath on dialysis. Patient was also given 2 doses of calcium gluconate today. Part of this is due to hyperphosphatemia. (5) Hyponatremia Is this a current diagnosis for this admission?: Yes (6) Weak Is this a current diagnosis for this admission?: Yes (7) Anemia in chronic kidney disease (CKD) Qualifiers: Chronic kidney disease stage: on chronic dialysis Qualified Code(s): N18.6 - End stage renal disease; D63.1 - Anemia in chronic kidney disease; Z99.2 - Dependence on renal dialysis Is this a current diagnosis for this admission?: Yes Plan: Patient was given Procrit yesterday during her regular dialysis treatment so she does not need Procrit today. (8) Diabetes mellitus type 1 with complications Is this a current diagnosis for this admission?: Yes Plan: Needs better blood sugar control. Defer to primary care provider. (9) Hypertension Qualifiers: Is this a current diagnosis for this admission?: Yes Plan: Could be due to hypervolemic state. May give patient's home blood pressure medications. (10) Obesity, morbid, BMI 40.0-49.9 Is this a current diagnosis for this admission?: Yes - Notes Notes: Thank you very much for this consultation. Discussed with Dr. Mcknight. Will do postdialysis BMP. If the patient's potassium and other electrolytes are acceptably improved then patient can be discharged from the emergency room. Patient's blood sugar should also be within acceptable limits at least less than 500 prior to discharge from the emergency room. Patient is scheduled for her routine hemodialysis treatment at [facility] tomorrow so I instructed her to make sure that she still comes to treatment tomorrow. Patient actually agreed with the plan. - Time Time Spent: Greater than 70 Minutes
[2019-07-25] MEDS ORDERED: HEPARIN SOD (PORCINE) 1,000 UNIT/ML 10 ML VIAL IV PRN (17:45)
[2019-07-25 19:53] LABS: ANION GAP 19 (5-19); CALCIUM 10.3 mg/dL (8.4-10.2); CARBON DIOXIDE 28 mmol/L (22-30); CHLORIDE 92 mmol/L (98-107); GLUCOSE 235 mg/dL (75-110)
[2019-07-25 20:10] LABS: BLOOD UREA NITROGEN 28 mg/dL (7-20)
[2019-07-25 20:14] VITALS: BP 161/82
--- NOTE | 2019-07-25 23:09 | EKG REPORT ---
SEVERITY:- ABNORMAL ECG - SINUS RHYTHM FIRST DEGREE AV BLOCK CHRISTINA, CONSIDER BIATRIAL ABNORMALITIES LEFT AXIS DEVIATION LEFT VENTRICULAR HYPERTROPHY PROLONGED QT INTERVAL : Confirmed by: Daniela Lemons 25-Jul-2019 23:08:59
== END 2019-07-25 20:46 | disposition home or self-care (01) ==
LOC: ER 11:44
DX: E87.5 Hyperkalemia (principal); E87.1 Hypo-osmolality and hyponatremia; R53.1 Weakness; E11.22 Type 2 diabetes mellitus with diabetic chronic kidney disease; I13.2 Hypertensive heart and chronic kidney disease with heart failure and with stage 5 chronic kidney disease, or end stage renal disease; N18.6 End stage renal disease; I25.10 Atherosclerotic heart disease of native coronary artery without angina pectoris; Z99.2 Dependence on renal dialysis; Z88.3 Allergy status to other anti-infective agents; Z88.6 Allergy status to analgesic agent; Z90.49 Acquired absence of other specified parts of digestive tract
CPT/HCPCS: 93005; 99291; 96374; 96375; 36415; 82962; 83735; 85025; 80053; 93010; G0257; J0610; J1644; A9270; J3490; J2405; J1815

== ENCOUNTER 2019-07-27 08:29 | Emergency (ER) | payer MEDICARE, MEDICAID ==
--- NOTE | 2019-07-27 09:16 | ER Document Report ---
ED GI/ - General Chief Complaint: Lower Abdominal Pain Stated Complaint: ABDOMINAL PAIN Time Seen by Provider: 07/27/19 08:48 Primary Care Provider: HILARY HERNANDEZ MD [Primary Care Provider] - Follow up as needed Mode of Arrival: Medic Information source: Patient Notes: Patient presents complaining of nausea headache and abdominal pain that started while she was in dialysis today. Patient states that she is currently been having dialysis 6 days a week for the past several weeks. Patient denies any fever, vomiting, diarrhea vaginal bleeding or vaginal discharge. Patient states she does make urine every few days. TRAVEL OUTSIDE OF THE [place] IN LAST 30 DAYS: No - HPI Patient complains to provider of: Abdominal pain. No: Diarrhea, Dysuria, Flank pain, Vaginal discharge, Vaginal pain, Vomiting Onset: Just prior to arrival Timing/Duration: Sudden Quality of pain: Achy Pain Level: 3 Context: denies: Location: RLQ Vaginal bleeding (Compared to normal period): None Associated symptoms: Nausea. denies: Chest pain, Diarrhea, Dizzy, Fever, Loss of appetite, Urinary hesitancy, Urinary frequency, Urinary retention, Urinary urgency, Vaginal discharge, Vomiting Exacerbated by: Denies Relieved by: Denies Similar symptoms previously: Yes Recently seen / treated by doctor: No - Related Data Allergies/Adverse Reactions: aspirin [Aspirin] Allergy (Verified 07/27/19 08:32) Anaphylaxis ciprofloxacin [From Cipro] Allergy (Verified 07/27/19 08:32) Anaphylaxis clindamycin [Clindamycin] Allergy (Verified 07/27/19 08:32) hydrocodone [From Vicodin] Allergy (Verified 07/27/19 08:32) ibuprofen [From Motrin] Allergy (Verified 07/27/19 08:32) Anaphylaxis lidocaine [From Lidoderm] Allergy (Verified 07/27/19 08:32) Generalized rash tramadol HCl [From Ultram] Allergy (Verified 07/27/19 08:32) vancomycin [Vancomycin] Allergy (Verified 07/27/19 08:32) Shortness of Breath nitroglycerin [Nitroglycerin] Adverse Reaction (Intermediate, Verified 07/27/19 08:32) Joint pain Past Medical History - General Information source: Patient - Social History Smoking Status: Never Smoker Chew tobacco use (# tins/day): No Frequency of alcohol use: None Drug Abuse: None Lives with: Family Family History: Reviewed & Not Pertinent Patient has suicidal ideation: No Patient has homicidal ideation: No - Past Medical History Cardiac Medical History: Reports: Hx Congestive Heart Failure, Hx Coronary Artery Disease, Hx Hypertension, Hx Heart Murmur Pulmonary Medical History: Reports: Hx Asthma, Hx Pneumonia Neurological Medical History: Reports: Hx Migraine, Hx Seizures - only r/t low calcium Endocrine Medical History: Reports: Hx Diabetes Mellitus Type 1, Hx Diabetes Mellitus Type 2 Renal/ Medical History: Reports: Hx End Stage Renal Disease - On hemodialysis 7 days a week, Hx Hemodialysis, Hx Ovarian Cysts. Denies: Hx Peritoneal Dialysis Malignancy Medical History: GI Medical History: Reports: Hx Gastritis Musculoskeletal Medical History: Skin Medical History: Reports Hx Psoriasis Psychiatric Medical History: Reports: Hx Depression Traumatic Medical History: Infectious Medical History: Past Surgical History: Reports: Hx Appendectomy, Hx Cholecystectomy, Hx Vascular Surgery - Lt AV Fistula and graft; Rt AV fistula - Immunizations Immunizations up to date: Yes Hx Diphtheria, Pertussis, Tetanus Vaccination: Yes Hx Pneumococcal Vaccination: 08/22/11 Review of Systems - Review of Systems Constitutional: No symptoms reported. denies: Fever, Recent illness EENT: No symptoms reported Cardiovascular: No symptoms reported. denies: Chest pain Respiratory: No symptoms reported. denies: Cough Gastrointestinal: Abdominal pain, Nausea. denies: Diarrhea, Vomiting, Constipation Genitourinary: No symptoms reported. denies: Dysuria, Flank pain Female Genitourinary: No symptoms reported. denies: , Vaginal discharge, Vaginal bleeding Musculoskeletal: No symptoms reported. denies: Back pain Skin: No symptoms reported Hematologic/Lymphatic: No symptoms reported Neurological/Psychological: Headaches. denies: Confusion, Weakness, Lost consciousness Physical Exam - Vital signs Vitals: Temp Pulse Resp BP Pulse Ox 97.6 F 99 20 116/74 98 07/27/19 08:32 07/27/19 08:32 07/27/19 08:32 07/27/19 08:32 07/27/19 08:32 - General General appearance: Alert In distress: None - HEENT Head: Normocephalic, Atraumatic Eyes: Normal Conjunctiva: Normal Nasal: Normal Mouth/Lips: Normal Mucous membranes: Normal Pharynx: Normal Neck: Supple. No: Meningismus Notes: Posterior midline tenderness - Respiratory Respiratory status: No respiratory distress Chest status: Nontender Breath sounds: Normal. No: Rales, Rhonchi, Stridor, Wheezing Chest palpation: Normal - Cardiovascular Rhythm: Regular Heart sounds: S1 appreciated, S2 appreciated Murmur: No - Abdominal Inspection: Morbidly Obese Distension: No distension Bowel sounds: Normal Tenderness: Tender - Right side abdominal tenderness. No: McBurney's point, Mckinnon's sign, Guarding - Back Back: Normal, Nontender. No: CVA tenderness - Extremities General upper extremity: Normal inspection, Normal ROM General lower extremity: Normal inspection, Normal ROM - Neurological Neuro grossly intact: Yes Cognition: Normal Houston Coma Scale Eye Opening: Spontaneous Hellen Coma Scale Verbal: Oriented Houston Coma Scale Motor: Obeys Commands Hellen Coma Scale Total: 15 - Psychological Associated symptoms: Normal affect, Normal mood - Skin Skin Temperature: Warm Skin Moisture: Dry Skin Color: Normal Course - Re-evaluation Re-evalutation: 07/27/19 11:[address] peck regarding pt presentation and diagnostic evaluation. Advises adding on ct imaging to further evaluate pt's pain symptoms 07/27/19 13:50 Patient comfortable at this time. Patient with mild tenderness to right side of abdomen. Patient with no acute findings noted on CT scan. Patient has had her gallbladder and appendix removed previously. Patient denies any concerns about STD or at this time and defers pelvic examination. Patient is currently receiving daily dialysis and has no significant laboratory derangement that requires additional treatment at this time. Consulted with Dr. Peck regarding patient's diagnostic evaluation. Dr. Peck agrees with discharge plan at this time. Patient presents with abdominal pain without signs of peritonitis or other life-threatening or serious etiology. Patient appears stable for discharge and has been instructed to return immediately if the symptoms worsen in any way for reevaluation. - Vital Signs Vital signs: Temp Pulse Resp BP Pulse Ox 97.6 F 99 17 121/47 L 95 07/27/19 08:32 07/27/19 08:32 07/27/19 14:01 07/27/19 14:01 07/27/19 14:01 - Laboratory Result Diagrams: 07/27/19 09:20 07/27/19 09:20 Laboratory results interpreted by me: 07/27/19 07/27/19 07/27/19 09:20 09:20 11:49 Hgb 11.2 L Hct 34.5 L RDW 16.2 H Sodium 132.7 L Potassium 5.5 H Chloride 89 L BUN 39 H Creatinine 6.25 H Est GFR ( Amer) 9 L Est GFR (MDRD) Non-Af 8 L Glucose 384 H POC Glucose 249 H Calcium 8.2 L Direct Bilirubin 0.5 H Alkaline Phosphatase 193 H Total Protein 8.8 H Lipase 573.9 H Labs- Entire Visit 07/27/19 07/27/19 07/27/19 09:20 09:20 09:20 WBC 7.9 RBC 3.99 Hgb 11.2 L Hct 34.5 L MCV 86 MCH 28.2 MCHC 32.6 RDW 16.2 H Plt Count 301 Lymph % (Auto) 24.7 Dooly % (Auto) 10.9 Eos % (Auto) 5.4 Baso % (Auto) 0.7 Absolute Neuts (auto) 4.6 Absolute Lymphs (auto) 1.9 Absolute Monos (auto) 0.9 Absolute Eos (auto) 0.4 Absolute Basos (auto) 0.1 Seg Neutrophils % 58.3 PT INR APTT VBG pH Cancelled VBG pCO2 Cancelled VBG HCO3 Cancelled VBG Base Excess Cancelled Sodium 132.7 L Potassium 5.5 H Chloride 89 L Carbon Dioxide 25 Anion Gap 19 BUN 39 H Creatinine 6.25 H Est GFR ( Amer) 9 L Est GFR (MDRD) Non-Af 8 L Glucose 384 H POC Glucose Calcium 8.2 L Total Bilirubin 0.5 Direct Bilirubin 0.5 H Neonat Total Bilirubin Not Reportable Neonat Direct Bilirubin Not Reportable Neonat Indirect Bili Not Reportable AST 20 ALT 14 Alkaline Phosphatase 193 H Total Protein 8.8 H Albumin 4.6 Lipase 573.9 H Serum HCG, Qual 07/27/19 07/27/19 07/27/19 09:20 11:15 11:15 WBC RBC Hgb Hct MCV MCH MCHC RDW Plt Count Lymph % (Auto) Dooly % (Auto) Eos % (Auto) Baso % (Auto) Absolute Neuts (auto) Absolute Lymphs (auto) Absolute Monos (auto) Absolute Eos (auto) Absolute Basos (auto) Seg Neutrophils % PT 14.0 INR 1.08 APTT 32.1 VBG pH 7.33 VBG pCO2 45.9 VBG HCO3 23.4 VBG Base Excess -2.7 Sodium Potassium Chloride Carbon Dioxide Anion Gap BUN Creatinine Est GFR ( Amer) Est GFR (MDRD) Non-Af Glucose POC Glucose Calcium Total Bilirubin Direct Bilirubin Neonat Total Bilirubin Neonat Direct Bilirubin Neonat Indirect Bili AST ALT Alkaline Phosphatase Total Protein Albumin Lipase Serum HCG, Qual NEGATIVE 07/27/19 11:49 WBC RBC Hgb Hct MCV MCH MCHC RDW Plt Count Lymph % (Auto) Dooly % (Auto) Eos % (Auto) Baso % (Auto) Absolute Neuts (auto) Absolute Lymphs (auto) Absolute Monos (auto) Absolute Eos (auto) Absolute Basos (auto) Seg Neutrophils % PT INR APTT VBG pH VBG pCO2 VBG HCO3 VBG Base Excess Sodium Potassium Chloride Carbon Dioxide Anion Gap BUN Creatinine Est GFR ( Amer) Est GFR (MDRD) Non-Af Glucose POC Glucose 249 H Calcium Total Bilirubin Direct Bilirubin Neonat Total Bilirubin Neonat Direct Bilirubin Neonat Indirect Bili AST ALT Alkaline Phosphatase Total Protein Albumin Lipase Serum HCG, Qual - Diagnostic Test Radiology reviewed: Reports reviewed - EKG Interpretation by Me EKG shows normal: Sinus rhythm When compared to previous EKG there are: No significant change Additional EKG results interpreted by me: 07/27/19 13:[address] elevation, no T wave inversion, QTC 505 Discharge - Discharge Clinical Impression: ESRD (end stage renal disease) on dialysis, Hyperglycemia Abdominal pain Qualifiers: Abdominal location: unspecified location Qualified Code(s): R10.9 - Unspecified abdominal pain Condition: Stable Disposition: HOME, SELF-CARE Instructions: Abdominal Pain ([facility]), Nausea or Vomiting, Nonspecific ([facility]) Additional Instructions: Return immediately for any new or worsening symptoms Followup with your primary care provider for recheck Referrals: HILARY HERNANDEZ MD [Primary Care Provider] - Follow up as needed
[2019-07-27 09:50] LABS: ABSOLUTE BASOPHILS # (AUTO) 0.1 10^3/uL (0.0-0.2); ABSOLUTE EOSINOPHILS # (AUTO) 0.4 10^3/uL (0.0-0.6); ABSOLUTE LYMPHOCYTES (AUTO) 1.9 10^3/uL (0.5-4.7); ABSOLUTE MONOCYTES (AUTO) 0.9 10^3/uL (0.1-1.4); ABSOLUTE NEUT (AUTO) 4.6 10^3/uL (1.7-8.2); BASOPHILS % (AUTO) 0.7 % (0-2); EOSINOPHILS % (AUTO) 5.4 % (0-6); HEMATOCRIT 34.5 % (36.0-47.0); HEMOGLOBIN 11.2 g/dL (12.0-15.5); LYMPHOCYTES % (AUTO) 24.7 % (13-45); MEAN CORPUSCULAR HEMOGLOBIN 28.2 pg (27.0-33.4); MEAN CORPUSCULAR HGB CONC 32.6 g/dL (32.0-36.0); MEAN CORPUSCULAR VOLUME 86 fl (80-97); MONOCYTES % (AUTO) 10.9 % (3-13); PLATELET COUNT 301 10^3/uL (150-450); RED BLOOD COUNT 3.99 10^6/uL (3.72-5.28); RED CELL DISTRIBUTION WIDTH 16.2 % (11.5-14.0); SEGMENTED NEUTROPHILS % (AUTO) 58.3 % (42-78); TOTAL CELLS COUNTED % (AUTO) 100 %; WHITE BLOOD COUNT 7.9 10^3/uL (4.0-10.5)
[2019-07-27 10:18] LABS: ALBUMIN 4.6 g/dL (3.5-5.0); ALKALINE PHOSPHATASE 193 U/L (38-126); ANION GAP 19 (5-19); ASPARTATE AMINO TRANSFERASE 20 U/L (14-36); BILIRUBIN,DIRECT 0.5 mg/dL (0.0-0.4); BILIRUBIN,TOTAL 0.5 mg/dL (0.2-1.3); BLOOD UREA NITROGEN 39 mg/dL (7-20); CALCIUM 8.2 mg/dL (8.4-10.2); CARBON DIOXIDE 25 mmol/L (22-30); CHLORIDE 89 mmol/L (98-107); GLUCOSE 384 mg/dL (75-110); POTASSIUM 5.5 mmol/L (3.6-5.0); TOTAL PROTEIN 8.8 g/dL (6.3-8.2)
[2019-07-27 11:24] LABS: VENOUS BLOOD BASE EXCESS -2.7 mmol/L; VENOUS BLOOD HCO3 23.4 mmol/L (20-32); VENOUS BLOOD PCO2 45.9 mmHg (35-63); VENOUS BLOOD PH 7.33 (7.30-7.42)
[2019-07-27 11:30] LABS: INTERNATIONAL RATION (INR) 1.08; PARTIAL THROMBOPLASTIN TIME 32.1 SEC (23.5-35.8)
[2019-07-27] MEDS ORDERED: INSULIN REG, HUMAN 100 UNIT/ML 3 ML VIAL (PYX) SUBCUT ONE ×2 (11:33→11:53)
[2019-07-27] MEDS ORDERED: OXYCODONE-ACETAMINOPHEN 5-325 MG TABLET PO ONE (11:35)
--- NOTE | 2019-07-27 12:51 | RADIOLOGY REPORT (SQ) ---
EXAM DESCRIPTION: CT ABD/PELVIS NO ORAL OR IV COMPLETED DATE/TIME: 07/27/2019 12:27 pm REASON FOR STUDY: R side abd pain COMPARISON: 10/06/2018 TECHNIQUE: CT scan of the abdomen and pelvis performed without intravenous or oral contrast. Images reviewed with lung, soft tissue, and bone windows. Reconstructed coronal and sagittal MPR images revi ewed. All images stored on PACS. All CT scanners at this facility use dose modulation, iterative reconstruction, and/or weight based d osing when appropriate to reduce radiation dose to as low as reasonably achievable (ALARA). [facility]: Dose Right [facility]: CareDose [facility]: Dose Right [facility]: Teradose 4D [facility]: [employer] / [employer] RADIATION DOSE: CT Rad equipment meets quality standard of care and radiation dose reduction techniq ues were employed. CTDIvol: 20.4 mGy. DLP: 1143 mGy-cm.mGy. LIMITATIONS: None. FINDINGS: LOWER CHEST: No significant findings. No nodules or infiltrates. NON-CONTRASTED LIVER, SPLEEN, ADRENALS: Evaluation limited by lack of IV contrast. No identified sign ificant masses. PANCREAS: No masses. No peripancreatic inflammatory changes. GALLBLADDER: Surgically absent. RIGHT KIDNEY AND URETER: No suspicious masses. Assessment limited by lack of IV contrast. No signif icant calcifications. No hydronephrosis or hydroureter. LEFT KIDNEY AND URETER: No suspicious masses. Assessment limited by lack of IV contrast. No signifi cant calcifications. No hydronephrosis or hydroureter. AORTA AND RETROPERITONEUM: No aneurysm. No retroperitoneal masses or adenopathy. BOWEL AND PERITONEAL CAVITY: No obvious masses or inflammatory changes. No free fluid. APPENDIX: Normal. PELVIS, BLADDER, AND ABDOMINAL WALL:Choose 3 BONES: Nothing acute. OTHER: No other significant finding. IMPRESSION: No acute findings. COMMENT: Quality ID # [id number]: Final reports with documentation of one or more dose reduction techniques (e.g., Automated exposure control, adjustment of the mA and/or kV according to patient size, use of iterative reconstruction technique) TECHNICAL DOCUMENTATION: JOB ID: [id number] [employer]- All Rights Reserved Reading location - IP/workstation name: [email or web address]
[2019-07-27 14:04] VITALS: BP 121/47
--- NOTE | 2019-07-27 14:20 | EKG REPORT ---
SEVERITY:- ABNORMAL ECG - SINUS RHYTHM CHRISTINA, CONSIDER BIATRIAL ABNORMALITIES PROBABLE LEFT VENTRICULAR HYPERTROPHY PROLONGED QT INTERVAL : Confirmed by: Daniela Lemons 27-Jul-2019 14:19:28
== END 2019-07-27 14:08 | disposition home or self-care (01) ==
LOC: ER 08:29
DX: I13.2 Hypertensive heart and chronic kidney disease with heart failure and with stage 5 chronic kidney disease, or end stage renal disease (principal); E11.22 Type 2 diabetes mellitus with diabetic chronic kidney disease; N18.6 End stage renal disease; Z99.2 Dependence on renal dialysis; R10.9 Unspecified abdominal pain; R10.30 Lower abdominal pain, unspecified; R11.0 Nausea; R51 Headache; I25.10 Atherosclerotic heart disease of native coronary artery without angina pectoris
CPT/HCPCS: 93005; 99284; 36415; 82962; 83690; 84703; 85025; 85610; 85730; 80053; 82803; 74176; 93010; A9270 ×2; J1815

== ENCOUNTER 2019-08-20 14:16 | Emergency (ER) | payer MEDICARE, MEDICAID ==
[2019-08-20 14:23] VITALS: BP 149/72
--- NOTE | 2019-08-20 14:44 | ER Document Report ---
HPI - HPI Time Seen by Provider: 08/20/19 14:30 Pain Level: 2 Notes: Patient is a 34-year-old female with a history of insulin-dependent diabetes and end-stage renal disease on (on dialysis every Wednesday/Wednesday/Wednesday) who presents complaining of right lateral foot and right lateral ankle pain that began this morning. Patient states that she has noticed a little swelling to the lateral side. Patient states that weightbearing makes the pain worse in that area. The pain does not radiate. She has not noticed any redness. She is not aware of any obvious injury. She is otherwise able to eat and drink without difficulty. No recent illness. Denies any headache, fever, URI, sore throat, chest pain, palpitations, syncope, cough, shortness of breath, wheeze, dyspnea, abdominal pain, nausea/vomiting/diarrhea, urinary retention, dysuria, hematuria, loss of control of bowel or bladder, muscle paralysis, or rash. - ROS Systems Reviewed and Negative: Yes All other systems reviewed and negative - CONSTITUTIONAL Constitutional: DENIES: Fever, Chills - EENT EENT: DENIES: Sore Throat, Ear Pain, Eye problems - NEURO Neurology: DENIES: Headache, Weakness, Vision blurred, Dizzinesss / Vertigo - CARDIOVASCULAR Cardiovascular: DENIES: Chest pain - RESPIRATORY Respiratory: DENIES: Trouble Breathing, Coughing - GASTROINTESTINAL Gastrointestinal: DENIES: Abdominal Pain, Black / Bloody Stools - URINARY Urinary: DENIES: Dysuria, Urgency, Frequency - REPRODUCTIVE Reproductive: DENIES: : - MUSCULOSKELETAL Musculoskeletal: REPORTS: Extremity pain - RIGHT ANKLE Past Medical History - Social History Smoking Status: Unknown if Ever Smoked Chew tobacco use (# tins/day): No Frequency of alcohol use: None Drug Abuse: None Family History: Reviewed & Not Pertinent Patient has suicidal ideation: No Patient has homicidal ideation: No - Past Medical History Cardiac Medical History: Reports: Hx Congestive Heart Failure, Hx Coronary Artery Disease, Hx Hypertension, Hx Heart Murmur Pulmonary Medical History: Reports: Hx Asthma, Hx Pneumonia Neurological Medical History: Reports: Hx Migraine, Hx Seizures - only r/t low calcium. Denies: Hx Parkinson's Disease Endocrine Medical History: Reports: Hx Diabetes Mellitus Type 1, Hx Diabetes Mellitus Type 2 Renal/ Medical History: Reports: Hx End Stage Renal Disease - On hemodialysis 7 days a week, Hx Hemodialysis, Hx Ovarian Cysts. Denies: Hx Peritoneal Dialysis Malignancy Medical History: GI Medical History: Reports: Hx Gastritis Musculoskeletal Medical History: Skin Medical History: Reports Hx Psoriasis Psychiatric Medical History: Reports: Hx Depression Traumatic Medical History: Infectious Medical History: Past Surgical History: Reports: Hx Appendectomy, Hx Cholecystectomy, Hx Vascular Surgery - Lt AV Fistula and graft; Rt AV fistula - Immunizations Immunizations up to date: Yes Hx Diphtheria, Pertussis, Tetanus Vaccination: Yes Hx Pneumococcal Vaccination: 08/22/11 Vertical Provider Document - CONSTITUTIONAL Agree With Documented VS: Yes Notes: PHYSICAL EXAMINATION: GENERAL: Well-appearing, well-nourished and in no acute distress. LUNGS: Breath sounds clear to auscultation bilaterally and equal. No wheezes rales or rhonchi. HEART: Regular rate and rhythm without murmurs, rubs, gallops. Musculoskeletal: Rt foot/ankle: There is very minimal swelling over the lateral malleolus. No ecchymosis or deformity. There is no erythema or warmth associated. FROM to passive/active without any discomfort. Strength 5+/5. N/V intact distal. + tenderness to the distal lateral malleolus and lateral posterior foot. Achilles intact. Lis Franc maneuver neg. Anterior drawer neg. no posterior leg or calf tenderness appreciated. No lower extremity asymmetry noted. Extremities: No cyanosis, clubbing, or edema b/l. Peripheral pulses 2+. Capillary refill less than 3 seconds. NEUROLOGICAL: Normal speech, normal gait. Normal sensory, motor exams PSYCH: Normal mood, normal affect. SKIN: Warm, Dry, normal turgor, no rashes or lesions noted. - INFECTION CONTROL TRAVEL OUTSIDE OF THE [place] IN LAST 30 DAYS: No Course - Re-evaluation Re-evalutation: 08/20/19 Patient is an afebrile, well-hydrated, 34-year-old female who presents to the ED with right lateral foot/ankle pain. Vitals are acceptable without any significant tachycardia, tachypnea, or hypoxia. PE is otherwise unremarkable for any neurovascular compromise, obvious tendon/ligament rupture, obvious fracture/dislocation, septic joint, DVT. See XR report. Ankle stirrup provided today. Pt declined crutches. Patient declined any Tylenol or ice. Patient is nontoxic-appearing. Patient is able to ambulate and weight-bear. No other labs or imaging warranted at this time based on H&P. Conservative measures otherwise for symptoms. Recheck with your PCM in 3-5 days. Consider consult orthopedics. Return to the ED with any worsening/concerning symptoms otherwise as reviewed in discharge. Patient is in agreement. - Vital Signs Vital signs: Temp Pulse Resp BP Pulse Ox 98.0 F 88 18 149/72 H 97 08/20/19 14:21 08/20/19 14:21 08/20/19 14:21 08/20/19 14:21 08/20/19 14:21 Discharge - Discharge Clinical Impression: Pain in lateral portion of right ankle, Right foot pain Condition: Stable Disposition: HOME, SELF-CARE Additional Instructions: Rest, Ice, Compression, Elevation Tylenol/ibuprofen as needed Light stretches daily Strength exercises as able Moist heat and massage may help F/u with your PCP in 3-5 days for a recheck Consider consult(s) with Orthopedics/physical therapy for ongoing/worsening symptoms Return to the ED with any worsening symptoms and/or development of fever, headache, chest pain, palpitations, syncope, shortness of breath, trouble breathing, abdominal pain, n/v/d, muscle weakness/paralysis, numbness/tingling, swelling, redness, or other worsening symptoms that are concerning to you. Forms: Elevated Blood Pressure Referrals: HILARY HERNANDEZ MD [Primary Care Provider] - Follow up as needed [facility] [Provider Group] - Follow up as needed
--- NOTE | 2019-08-20 15:31 | RADIOLOGY REPORT (SQ) ---
EXAM DESCRIPTION: ANKLE RIGHT COMPLETE COMPLETED DATE/TIME: 08/20/2019 3:12 pm REASON FOR STUDY: lateral pain COMPARISON: Right foot three views same date Right ankle three views 06/22/2019 NUMBER OF VIEWS: Three views. TECHNIQUE: AP, lateral, and oblique radiographic images acquired of the right ankle. LIMITATIONS: None. FINDINGS: MINERALIZATION: Normal. BONES: No acute fracture or dislocation. No worrisome bone lesions. JOINTS: The tibiotalar joint effusion is present. No disruption of the ankle mortise SOFT TISSUES: Diffuse medial and lateral soft tissue swelling. No radiopaque foreign body. No soft tissue gas. OTHER: No other significant finding. IMPRESSION: Ankle joint effusion and soft tissue swelling. No acute fracture. No disruption of the ankle mortise TECHNICAL DOCUMENTATION: JOB ID: [id number] [employer]- All Rights Reserved Reading location - IP/workstation name: [email or web address]
--- NOTE | 2019-08-20 15:34 | RADIOLOGY REPORT (SQ) ---
EXAM DESCRIPTION: FOOT RIGHT COMPLETE COMPLETED DATE/TIME: 08/20/2019 3:12 pm REASON FOR STUDY: lateral pain COMPARISON: Right foot three views 01/01/2018 NUMBER OF VIEWS: Three views. TECHNIQUE: AP, lateral and oblique radiographic images acquired of the right foot. LIMITATIONS: None. FINDINGS: MINERALIZATION: Normal. BONES: Abnormal 4th metatarsal head, with incompletely healed fracture at the distal right 4th metaph ysis. This appears subacute to chronic, but new compared to plain films from 01/01/2018. Remainder of the bones of the right foot are otherwise unremarkable. JOINTS: Normal alignment at the subtalar joint, intertarsal and tarsometatarsal joints. MTP and inte rphalangeal joints are unremarkable. SOFT TISSUES: No soft tissue swelling. No foreign body. OTHER: No other significant finding. IMPRESSION: Probably chronic incompletely healed fracture right 4th distal metatarsal metaphysis TECHNICAL DOCUMENTATION: JOB ID: [id number] [employer]- All Rights Reserved Reading location - IP/workstation name: [email or web address]
== END 2019-08-20 15:54 | disposition home or self-care (01) ==
LOC: ER 14:16
DX: M79.671 Pain in right foot (principal); M25.571 Pain in right ankle and joints of right foot; M79.89 Other specified soft tissue disorders; I13.2 Hypertensive heart and chronic kidney disease with heart failure and with stage 5 chronic kidney disease, or end stage renal disease; E11.22 Type 2 diabetes mellitus with diabetic chronic kidney disease; N18.6 End stage renal disease; I50.9 Heart failure, unspecified; Z99.2 Dependence on renal dialysis; Z79.4 Long term (current) use of insulin; J45.909 Unspecified asthma, uncomplicated
CPT/HCPCS: 99283; 73610; 73630; L1902

== ENCOUNTER 2019-08-31 07:48 | Emergency (ER) | payer MEDICARE, MEDICAID ==
--- NOTE | 2019-08-31 08:27 | RADIOLOGY REPORT (SQ) ---
EXAM DESCRIPTION: CHEST SINGLE VIEW COMPLETED DATE/TIME: 08/31/2019 8:14 am REASON FOR STUDY: bed 20 sob COMPARISON: Two-view chest 07/06/2019 AP chest 07/04/2019, 07/02/2019, 06/09/2019 EXAM PARAMETERS: NUMBER OF VIEWS: One view. TECHNIQUE: Single frontal radiographic view of the chest acquired. RADIATION DOSE: NA LIMITATIONS: None. FINDINGS: LUNGS AND PLEURA: Diffuse bilateral alveolar edema. No gross pleural effusions. No pneum othorax. MEDIASTINUM AND HILAR STRUCTURES: No masses. Contour normal. HEART AND VASCULAR STRUCTURES: Mild cardiomegaly BONES: No acute findings. HARDWARE: Right-sided subclavian vascular stents OTHER: No other significant finding. IMPRESSION: Pulmonary edema TECHNICAL DOCUMENTATION: JOB ID: [id number] [employer]- All Rights Reserved Reading location - IP/workstation name: [email or web address]
[2019-08-31 08:28] LABS: ABSOLUTE EOSINOPHILS # (AUTO) 0.2 10^3/uL (0.0-0.6); ABSOLUTE LYMPHOCYTES (AUTO) 1.5 10^3/uL (0.5-4.7); ABSOLUTE MONOCYTES (AUTO) 0.7 10^3/uL (0.1-1.4); ABSOLUTE NEUT (AUTO) 11.6 10^3/uL (1.7-8.2); BASOPHILS % (AUTO) 0.2 % (0-2); EOSINOPHILS % (AUTO) 1.5 % (0-6); HEMATOCRIT 32.4 % (36.0-47.0); HEMOGLOBIN 10.2 g/dL (12.0-15.5); LYMPHOCYTES % (AUTO) 10.8 % (13-45); MEAN CORPUSCULAR HEMOGLOBIN 28.3 pg (27.0-33.4); MEAN CORPUSCULAR HGB CONC 31.6 g/dL (32.0-36.0); MEAN CORPUSCULAR VOLUME 90 fl (80-97); MONOCYTES % (AUTO) 5.3 % (3-13); PLATELET COUNT 356 10^3/uL (150-450); RED BLOOD COUNT 3.62 10^6/uL (3.72-5.28); RED CELL DISTRIBUTION WIDTH 16.8 % (11.5-14.0); SEGMENTED NEUTROPHILS % (AUTO) 82.2 % (42-78); TOTAL CELLS COUNTED % (AUTO) 100 %; WHITE BLOOD COUNT 14.1 10^3/uL (4.0-10.5)
[2019-08-31 08:37] LABS: VENOUS BLOOD BASE EXCESS -5.8 mmol/L; VENOUS BLOOD HCO3 20.7 mmol/L (20-32); VENOUS BLOOD PCO2 44.6 mmHg (35-63); VENOUS BLOOD PH 7.28 (7.30-7.42)
[2019-08-31] MEDS ORDERED: MORPHINE SULFATE 10 MG/ML INJ IV ONE (08:56)
[2019-08-31] MEDS ORDERED: ONDANSETRON HCL INJ/PF 4 MG/2 ML SDV IV ONE ×2 (08:56→12:36)
--- NOTE | 2019-08-31 08:57 | ER Document Report ---
ED General - General Chief Complaint: Shortness Of Breath Stated Complaint: SHORTNESS OF BREATH Time Seen by Provider: 08/31/19 08:51 Primary Care Provider: HILARY HERNANDEZ MD [Primary Care Provider] - Follow up as needed TRAVEL OUTSIDE OF THE [place] IN LAST 30 DAYS: No - HPI Patient complains to provider of: Shortness of breath and cough Notes: Critically ill-appearing 34-year-old female presents with increasing weakness decreased exercise tolerance and shortness of breath. Patient has a lengthy history of asthma, CHF. She does have a oxygen concentrator at home but does not normally use it. She was found to be hypoxic when EMS arrived at 90%. Patient endorses fever and productive cough as well. - Related Data Allergies/Adverse Reactions: aspirin [Aspirin] Allergy (Verified 08/20/19 14:31) Anaphylaxis ciprofloxacin [From Cipro] Allergy (Verified 08/20/19 14:31) Anaphylaxis clindamycin [Clindamycin] Allergy (Verified 08/20/19 14:31) hydrocodone [From Vicodin] Allergy (Verified 08/20/19 14:31) ibuprofen [From Motrin] Allergy (Verified 08/20/19 14:31) Anaphylaxis lidocaine [From Lidoderm] Allergy (Verified 08/20/19 14:31) Generalized rash tramadol HCl [From Ultram] Allergy (Verified 08/20/19 14:31) vancomycin [Vancomycin] Allergy (Verified 08/20/19 14:31) Shortness of Breath nitroglycerin [Nitroglycerin] Adverse Reaction (Intermediate, Verified 08/20/19 14:31) Joint pain Past Medical History - Social History Smoking Status: Never Smoker Chew tobacco use (# tins/day): No Frequency of alcohol use: None Drug Abuse: None Family History: Reviewed & Not Pertinent Patient has suicidal ideation: No Patient has homicidal ideation: No - Past Medical History Cardiac Medical History: Reports: Hx Congestive Heart Failure, Hx Coronary Artery Disease, Hx Hypertension, Hx Heart Murmur Pulmonary Medical History: Reports: Hx Asthma, Hx Pneumonia Neurological Medical History: Reports: Hx Migraine, Hx Seizures - only r/t low calcium. Denies: Hx Parkinson's Disease Endocrine Medical History: Reports: Hx Diabetes Mellitus Type 1, Hx Diabetes Mellitus Type 2 Renal/ Medical History: Reports: Hx End Stage Renal Disease - On hemodialysis 7 days a week, Hx Hemodialysis, Hx Ovarian Cysts. Denies: Hx Peritoneal Dialysis Malignancy Medical History: GI Medical History: Reports: Hx Gastritis Musculoskeletal Medical History: Skin Medical History: Reports Hx Psoriasis Psychiatric Medical History: Reports: Hx Depression Traumatic Medical History: Infectious Medical History: Past Surgical History: Reports: Hx Appendectomy, Hx Cholecystectomy, Hx Vascular Surgery - Lt AV Fistula and graft; Rt AV fistula - Immunizations Immunizations up to date: Yes Hx Diphtheria, Pertussis, Tetanus Vaccination: Yes Hx Pneumococcal Vaccination: 08/22/11 Review of Systems - Review of Systems Notes: REVIEW OF SYSTEMS: CONSTITUTIONAL: positve fevers, -chills EENT: -eye pain, -difficulty swallowing, -nasal congestion CARDIOVASCULAR: -chest pain, -syncope. RESPIRATORY: positive cough, positive SOB GASTROINTESTINAL: -abdominal pain, positive nausea, -vomiting, -diarrhea GENITOURINARY: -dysuria, -hematuria MUSCULOSKELETAL: -back pain, -neck pain SKIN: -rash or skin lesions. HEMATOLOGIC: -easy bruising or bleeding. LYMPHATIC: -swollen, enlarged glands. NEUROLOGICAL: -altered mental status or loss of consciousness, -headache, - neurologic symptoms PSYCHIATRIC: -anxiety, -depression. ALL OTHER SYSTEMS REVIEWED AND NEGATIVE. Physical Exam - Vital signs Vitals: Pulse Ox 95 08/31/19 07:55 - Notes Notes: PHYSICAL EXAMINATION: GENERAL: Ill-appearing female, severe respiratory distress HEAD: Atraumatic, normocephalic. EYES: Pupils equal round and reactive to light, extraocular movements intact, sclera anicteric, conjunctiva are normal. ENT: nares patent, oropharynx clear without exudates. Moist mucous membranes. NECK: Normal range of motion, supple without lymphadenopathy LUNGS: Few rhonchi, bilateral basilar crackles HEART: Regular rate and rhythm without murmurs ABDOMEN: Soft, nontender, normoactive bowel sounds. No guarding, no rebound. No masses appreciated. EXTREMITIES: Normal range of motion, no pitting or edema. No cyanosis. NEUROLOGICAL: Cranial nerves grossly intact. Normal speech, normal gait. Normal sensory and motor exams. PSYCH: Normal mood, normal affect. SKIN: Warm, Dry, normal turgor, no rashes or lesions noted. Course - Re-evaluation Re-evalutation: 08/31/19 09:00 Well-appearing 34-year-old female presents with severe respiratory distress and fever. Initiate sepsis ptoticol Physical exam concerning for CHF possible coinfection. Initiate emergent nitroglycerin therapy, IV diuresis as well.. 08/31/19 10:58 Critically ill-appearing patient presents with signs of DKA. And fluid overload. Start aggressive management of her preload with a nitroglycerin drip. Also initiate insulin therapy via infusion to bring her sugar down to reduce her anion gap. Consult tertiary care center. Patient will be transferred emergently for dialysis to the ICU for further monitoring. - Vital Signs Vital signs: Temp Pulse Resp BP Pulse Ox 99.5 F 24 H 200/161 H 96 08/31/19 08:07 08/31/19 09:01 08/31/19 09:01 08/31/19 08:39 - Laboratory Result Diagrams: 08/31/19 08:03 08/31/19 08:03 Laboratory results interpreted by me: 08/31/19 08/31/19 08/31/19 08:03 08:03 08:03 WBC 14.1 H RBC 3.62 L Hgb 10.2 L Hct 32.4 L MCHC 31.6 L RDW 16.8 H Lymph % (Auto) 10.8 L Absolute Neuts (auto) 11.6 H Seg Neutrophils % 82.2 H VBG pH Sodium 132.1 L Potassium 5.9 H Chloride 93 L Carbon Dioxide 18 L Anion Gap 21 H BUN 52 H Creatinine 9.82 H Est GFR ( Amer) 6 L Est GFR (MDRD) Non-Af 5 L Glucose 610 H* POC Glucose Calcium 6.7 L* Alkaline Phosphatase 165 H Creatine Kinase 173 H NT-Pro-B Natriuret Pep 3910 H Total Protein 9.1 H 08/31/19 08/31/19 08:09 10:08 WBC RBC Hgb Hct MCHC RDW Lymph % (Auto) Absolute Neuts (auto) Seg Neutrophils % VBG pH 7.28 L Sodium Potassium Chloride Carbon Dioxide Anion Gap BUN Creatinine Est GFR ( Amer) Est GFR (MDRD) Non-Af Glucose POC Glucose 544 H* Calcium Alkaline Phosphatase Creatine Kinase NT-Pro-B Natriuret Pep Total Protein - EKG Interpretation by Me Additional EKG results interpreted by me: 08/31/19 09:01 Sinus tachycardia, normal QRS, normal [place], no ST elevations or depressions, no pathologic T wave inversions Critical Care Note - Critical Care Note Total time excluding time spent on procedures (mins): 36 Discharge - Discharge Clinical Impression: End stage renal disease, Respiratory distress, Shortness of breath, Hypoxemia requiring supplemental oxygen Pulmonary edema Qualifiers: Chronicity: acute Qualified Code(s): J81.0 - Acute pulmonary edema Volume overload Qualifiers: Hypervolemia type: other Qualified Code(s): E87.79 - Other fluid overload Condition: Serious Disposition: [facility] Referrals: HILARY HERNANDEZ MD [Primary Care Provider] - Follow up as needed
[2019-08-31] MEDS ORDERED: FUROSEMIDE INJ/PF 40 MG/4 ML SDV IV ONE (08:58)
[2019-08-31 09:00] LABS: CREATINE KINASE MB 1.02 ng/mL (<4.55); NT PRO BNP 3910 pg/mL (<125)
[2019-08-31 09:05] LABS: TROPONIN I < 0.012 ng/mL
[2019-08-31 09:08] LABS: ALBUMIN 4.6 g/dL (3.5-5.0); ALKALINE PHOSPHATASE 165 U/L (38-126); ASPARTATE AMINO TRANSFERASE 26 U/L (14-36); BILIRUBIN,DIRECT 0.4 mg/dL (0.0-0.4); BILIRUBIN,TOTAL 0.5 mg/dL (0.2-1.3); BLOOD UREA NITROGEN 52 mg/dL (7-20); CHLORIDE 93 mmol/L (98-107); CREATINE KINASE 173 U/L (30-135); TOTAL PROTEIN 9.1 g/dL (6.3-8.2)
[2019-08-31] MEDS: NITROGLYCERIN 5 MG (0.2 MG/HR) PATCH.TD24 TD ONE ×2 (09:12→09:17)
[2019-08-31 09:25] LABS: CARBON DIOXIDE 18 mmol/L (22-30)
[2019-08-31 09:28] LABS: ANION GAP 21 (5-19); POTASSIUM 5.9 mmol/L (3.6-5.0)
[2019-08-31 09:29] LABS: CALCIUM 6.7 mg/dL (8.4-10.2)
[2019-08-31 09:30] LABS: GLUCOSE 610 mg/dL (75-110)
[2019-08-31 09:49] LABS: A TYPE INFLUENZA AG NEGATIVE (NEGATIVE); B INFLUENZA AG NEGATIVE (NEGATIVE)
[2019-08-31] MEDS ORDERED: INSULIN REG, HUMAN 100 UNIT/ML 3 ML VIAL (PYX) IV ONE (09:55)
[2019-08-31] MEDS ORDERED: NORMAL SALINE 100 ML with INSULIN REGULAR, HUMAN 100 UNIT IV PRN ×2 (09:59)
[2019-08-31] MEDS ORDERED: INSULIN REG, HUMAN 100 UNIT/ML 3 ML VIAL (PYX) ONE (10:23)
[2019-08-31 12:51] VITALS: BP 188/114
--- NOTE | 2019-08-31 13:04 | EKG REPORT ---
SEVERITY:- ABNORMAL ECG - SINUS TACHYCARDIA LEFT AXIS DEVIATION = LAFB ABNORMAL T, CONSIDER ISCHEMIA, LATERAL LEADS BORDERLINE PROLONGED QT INTERVAL : Confirmed by: Ciro Beckford MD 31-Aug-2019 13:03:40
== END 2019-08-31 12:50 | disposition short-term general hospital (02) ==
LOC: ER 07:48
DX: I12.0 Hypertensive chronic kidney disease with stage 5 chronic kidney disease or end stage renal disease (principal); E11.22 Type 2 diabetes mellitus with diabetic chronic kidney disease; N18.6 End stage renal disease; Z99.2 Dependence on renal dialysis; J81.0 Acute pulmonary edema; E87.70 Fluid overload, unspecified; J45.909 Unspecified asthma, uncomplicated; I25.10 Atherosclerotic heart disease of native coronary artery without angina pectoris; R53.1 Weakness; R06.02 Shortness of breath; R09.02 Hypoxemia; R00.0 Tachycardia, unspecified; R50.9 Fever, unspecified; R05 Cough; Z87.892 Personal history of anaphylaxis; Z88.8 Allergy status to other drugs, medicaments and biological substances; Z88.1 Allergy status to other antibiotic agents; Z88.5 Allergy status to narcotic agent; Z87.01 Personal history of pneumonia (recurrent)
CPT/HCPCS: 93005; 36415; 87040; 82553; 82010; 82962; 82550; 85025; 80053; 84484; 82803; 83605; 87804; 83880; 71045; 93010; J1940; J2270; A9270; J2405; 96374; 96375; 96376; 99291; J1815; J3490

== ENCOUNTER 2019-09-11 12:03 | Inpatient (IN) | payer MEDICARE, MEDICAID ==
--- NOTE | 2019-09-11 12:19 | ER Document Report ---
ED Medical Screen (RME) - General Chief Complaint: Altered Mental Status Stated Complaint: ALTERED MENTAL STATUS Time Seen by Provider: 09/11/19 12:14 Primary Care Provider: HILARY HERNANDEZ MD [Primary Care Provider] - Follow up as needed Mode of Arrival: Medic Information source: Patient Notes: 33-year-old female presented to ED for feelings very short of breath and not feeling good. She is a diabetic on dialysis. She did go to dialysis on Wednesday but not today because she would have had driven her self to dialysis and she did not feel good enough to drive. She did have her mother call EMS to bring her to the hospital. Blood sugars 304 at this time. Pulse 89 sats 99 respirations 16 blood pressure 134/99 patient is on the monitor does not have O2 on his satting 99. Patient is very sleepy but she is able to wake up and talk and answer questions appropriately I have greeted and performed a rapid initial assessment of this patient. A comprehensive ED assessment and evaluation of the patient, analysis of test results and completion of medical decision making process will be conducted by an additional ED providers. TRAVEL OUTSIDE OF THE [place] IN LAST 30 DAYS: No - Related Data Allergies/Adverse Reactions: aspirin [Aspirin] Allergy (Verified 09/11/19 12:05) Anaphylaxis ciprofloxacin [From Cipro] Allergy (Verified 09/11/19 12:05) Anaphylaxis clindamycin [Clindamycin] Allergy (Verified 09/11/19 12:05) hydrocodone [From Vicodin] Allergy (Verified 09/11/19 12:05) ibuprofen [From Motrin] Allergy (Verified 09/11/19 12:05) Anaphylaxis lidocaine [From Lidoderm] Allergy (Verified 09/11/19 12:05) Generalized rash tramadol HCl [From Ultram] Allergy (Verified 09/11/19 12:05) vancomycin [Vancomycin] Allergy (Verified 09/11/19 12:05) Shortness of Breath nitroglycerin [Nitroglycerin] Adverse Reaction (Intermediate, Verified 09/11/19 12:05) Joint pain Past Medical History - Social History Family history: Reviewed & Not Pertinent - Past Medical History Cardiac Medical History: Reports: Hx Congestive Heart Failure, Hx Coronary Artery Disease, Hx Hypertension, Hx Heart Murmur Pulmonary Medical History: Reports: Hx Asthma, Hx Pneumonia Neurological Medical History: Reports: Hx Migraine, Hx Seizures - only r/t low calcium. Denies: Hx Parkinson's Disease Endocrine Medical History: Reports: Hx Diabetes Mellitus Type 1, Hx Diabetes Mellitus Type 2 Renal/ Medical History: Reports: Hx End Stage Renal Disease - On hemodialysis 7 days a week, Hx Hemodialysis, Hx Ovarian Cysts. Denies: Hx Peritoneal Dialysis Malignancy Medical History: GI Medical History: Reports: Hx Gastritis Musculoskeltal Medical History: Skin Medical History: Reports Hx Psoriasis Psychiatric Medical History: Reports: Hx Depression Traumatic Medical History: Infectious Medical History: Past Surgical History: Reports: Hx Appendectomy, Hx Cholecystectomy, Hx Vascular Surgery - Lt AV Fistula and graft; Rt AV fistula - Immunizations Immunizations up to date: Yes Hx Diphtheria, Pertussis, Tetanus Vaccination: Yes Physical Exam - Vital signs Vitals: Temp Pulse Resp BP Pulse Ox 97.9 F 90 18 134/99 H 96 09/11/19 12:13 09/11/19 12:13 09/11/19 12:13 09/11/19 12:13 09/11/19 12:13 Course - Vital Signs Vital signs: Temp Pulse Resp BP Pulse Ox 97.9 F 90 18 134/99 H 96 09/11/19 12:13 09/11/19 12:13 09/11/19 12:13 09/11/19 12:13 09/11/19 12:13 Doctor's Discharge - Discharge Referrals: HILARY HERNANDEZ MD [Primary Care Provider] - Follow up as needed
[2019-09-11 13:31] LABS: ABSOLUTE BASOPHILS # (AUTO) 0.1 10^3/uL (0.0-0.2); ABSOLUTE EOSINOPHILS # (AUTO) 0.4 10^3/uL (0.0-0.6); ABSOLUTE MONOCYTES (AUTO) 0.6 10^3/uL (0.1-1.4); ABSOLUTE NEUT (AUTO) 5.8 10^3/uL (1.7-8.2); BASOPHILS % (AUTO) 0.9 % (0-2); EOSINOPHILS % (AUTO) 4.1 % (0-6); HEMATOCRIT 25.7 % (36.0-47.0); HEMOGLOBIN 8.3 g/dL (12.0-15.5); LYMPHOCYTES % (AUTO) 22.7 % (13-45); MEAN CORPUSCULAR HGB CONC 32.4 g/dL (32.0-36.0); MEAN CORPUSCULAR VOLUME 87 fl (80-97); MONOCYTES % (AUTO) 6.9 % (3-13); PLATELET COUNT 328 10^3/uL (150-450); RED BLOOD COUNT 2.97 10^6/uL (3.72-5.28); RED CELL DISTRIBUTION WIDTH 16.4 % (11.5-14.0); SEGMENTED NEUTROPHILS % (AUTO) 65.4 % (42-78); TOTAL CELLS COUNTED % (AUTO) 100 %; WHITE BLOOD COUNT 8.8 10^3/uL (4.0-10.5)
[2019-09-11 13:33] LABS: VENOUS BLOOD HCO3 17.2 mmol/L (20-32); VENOUS BLOOD PCO2 43.7 mmHg (35-63); VENOUS BLOOD PH 7.21 (7.30-7.42)
[2019-09-11] MEDS ORDERED: NALOXONE HCL INJ/PF 0.4 MG/1 ML SDV IV ONE ×3 (13:35→15:08)
[2019-09-11 13:55] LABS: ALBUMIN 4.5 g/dL (3.5-5.0); ALKALINE PHOSPHATASE 154 U/L (38-126); ASPARTATE AMINO TRANSFERASE 15 U/L (14-36); BILIRUBIN,DIRECT 0.3 mg/dL (0.0-0.4); BILIRUBIN,TOTAL 0.3 mg/dL (0.2-1.3); BLOOD UREA NITROGEN 112 mg/dL (7-20); CREATINE KINASE 139 U/L (30-135); GLUCOSE 191 mg/dL (75-110); POTASSIUM 5.5 mmol/L (3.6-5.0); TOTAL PROTEIN 8.4 g/dL (6.3-8.2)
[2019-09-11 14:00] LABS: CARBON DIOXIDE 15 mmol/L (22-30); CHLORIDE 94 mmol/L (98-107)
[2019-09-11 14:07] LABS: CREATINE KINASE MB 1.28 ng/mL (<4.55); NT PRO BNP 4930 pg/mL (<125)
--- NOTE | 2019-09-11 14:10 | RADIOLOGY REPORT (SQ) ---
EXAM DESCRIPTION: CT HEAD WITHOUT COMPLETED DATE/TIME: 09/11/2019 2:01 pm REASON FOR STUDY: ams COMPARISON: 07/02/2019. TECHNIQUE: Axial images acquired through the brain without intravenous contrast. Images reviewed wi th bone, brain and subdural windows. Additional sagittal and coronal reconstructions were generated. Images stored on PACS. All CT scanners at this facility use dose modulation, iterative reconstruction, and/or weight based d osing when appropriate to reduce radiation dose to as low as reasonably achievable (ALARA). [facility]: Dose Right [facility]: CareDose [facility]: Dose Right [facility]: Teradose 4D [facility]: VSE EVAKUATORY ROSSII RADIATION DOSE: CT Rad equipment meets quality standard of care and radiation dose reduction techniq ues were employed. CTDIvol: 53.2 mGy. DLP: 1044 mGy-cm. mGy. LIMITATIONS: None. FINDINGS: VENTRICLES: Normal size and contour. CEREBRUM: No masses. No hemorrhage. No midline shift. No evidence for acute infarction. Normal gra y/white matter differentiation. No areas of low density in the white matter. CEREBELLUM: No masses. No hemorrhage. No alteration of density. No evidence for acute infarction. EXTRAAXIAL SPACES: No fluid collections. No masses. ORBITS AND GLOBE: No intra- or extraconal masses. Normal contour of globe without masses. CALVARIUM: No fracture. PARANASAL SINUSES: No fluid or mucosal thickening. SOFT TISSUES: No mass or hematoma. OTHER: No other significant finding. IMPRESSION: NORMAL BRAIN CT WITHOUT CONTRAST. EVIDENCE OF ACUTE STROKE: NO. COMMENT: Quality ID # [id number]: Final reports with documentation of one or more dose reduction techniques (e.g., Automated exposure control, adjustment of the mA and/or kV according to patient size, use of iterative reconstruction technique) TECHNICAL DOCUMENTATION: JOB ID: [id number] [employer]- All Rights Reserved Reading location - IP/workstation name: [email or web address]
[2019-09-11 14:17] LABS: CALCIUM 6.8 mg/dL (8.4-10.2); TROPONIN I < 0.012 ng/mL
--- NOTE | 2019-09-11 14:34 | RADIOLOGY REPORT (SQ) ---
EXAM DESCRIPTION: CHEST 2 VIEWS COMPLETED DATE/TIME: 09/11/2019 2:09 pm REASON FOR STUDY: short of breath COMPARISON: 08/31/2019. NUMBER OF VIEWS: One view. TECHNIQUE: Single frontal radiographic view of the chest acquired. LIMITATIONS: None. FINDINGS: LUNGS AND PLEURA: No opacities, masses or pneumothorax. No pleural effusion. MEDIASTINUM AND HILAR STRUCTURES: No masses or contour abnormality. HEART AND VASCULATURE: Cardiac enlargement. Mild vascular congestion. BONES: No acute findings. HARDWARE: None in the chest. OTHER: No other significant finding. IMPRESSION: CARDIAC ENLARGEMENT. MILD VASCULAR CONGESTION. TECHNICAL DOCUMENTATION: JOB ID: [id number] [employer]- All Rights Reserved Reading location - IP/workstation name: [email or web address]
[2019-09-11] MEDS ORDERED: SODIUM POLYSTYRENE SULFONATE 15 GM/60 ML PO ONE (14:41)
[2019-09-11 14:54] LABS: ARTERIAL BLOOD H2CO3 0.98 mmol/L (1.05-1.35); ARTERIAL BLOOD HCO3 14.1 mmol/L (20-24); ARTERIAL BLOOD O2 SATURATION 95.3 % (94-98); ARTERIAL BLOOD PCO2 32.6 mmHg (35-45); ARTERIAL BLOOD PH 7.25 (7.35-7.45); ARTERIAL BLOOD PO2 86.6 mmHg (80-100); ARTERIAL BLOOD TOTAL CO2 15.1 mmol/L (21-25)
[2019-09-11 14:55] LABS: ARTERIAL BLOOD FIO2 2L
[2019-09-11 15:00] LABS: ANION GAP 26 (5-19)
--- NOTE | 2019-09-11 15:23 | ER Document Report ---
ED Neuro Symptoms/Deficit - General Chief Complaint: Altered Mental Status Stated Complaint: ALTERED MENTAL STATUS Time Seen by Provider: 09/11/19 12:14 Primary Care Provider: HILARY HERNANDEZ MD [Primary Care Provider] - Follow up as needed Mode of Arrival: Medic Information source: Patient TRAVEL OUTSIDE OF THE [place] IN LAST 30 DAYS: No - HPI Notes: Patient was brought in by ambulance from the dialysis center. She went for dialysis but they would not perform the dialysis due to altered mental status. Upon arrival here patient complains of headache. She is a poor historian because she is very somnolent and will only wake up and say partial sentences before she falls back to sleep. I have to repeatedly wake her up to get her to finish sentences. She states she has some mild shortness of breath and has had a cough. No vomiting or diarrhea. She states she does not know why she is so sleepy. She states she has not taken any extra pain medicine or other medicines. No known falls or trauma. She has not had fever. Patient symptoms are moderate to severe. They are constant. They are better if patient is stimulated and worse if she is not. There is no known radiation of the symptoms. Symptoms consist of being extremely somnolent and hard to arouse. - Related Data Allergies/Adverse Reactions: aspirin [Aspirin] Allergy (Verified 09/11/19 12:05) Anaphylaxis ciprofloxacin [From Cipro] Allergy (Verified 09/11/19 12:05) Anaphylaxis clindamycin [Clindamycin] Allergy (Verified 09/11/19 12:05) hydrocodone [From Vicodin] Allergy (Verified 09/11/19 12:05) ibuprofen [From Motrin] Allergy (Verified 09/11/19 12:05) Anaphylaxis lidocaine [From Lidoderm] Allergy (Verified 09/11/19 12:05) Generalized rash tramadol HCl [From Ultram] Allergy (Verified 09/11/19 12:05) vancomycin [Vancomycin] Allergy (Verified 09/11/19 12:05) Shortness of Breath nitroglycerin [Nitroglycerin] Adverse Reaction (Intermediate, Verified 09/11/19 12:05) Joint pain Past Medical History - General Information source: Patient - Social History Smoking Status: Never Smoker Frequency of alcohol use: None Drug Abuse: None Family History: Reviewed & Not Pertinent Patient has suicidal ideation: No Patient has homicidal ideation: No - Past Medical History Cardiac Medical History: Reports: Hx Congestive Heart Failure, Hx Coronary Artery Disease, Hx Hypertension, Hx Heart Murmur Pulmonary Medical History: Reports: Hx Asthma, Hx Pneumonia Neurological Medical History: Reports: Hx Migraine, Hx Seizures - only r/t low calcium. Denies: Hx Parkinson's Disease Endocrine Medical History: Reports: Hx Diabetes Mellitus Type 1, Hx Diabetes Mellitus Type 2 Renal/ Medical History: Reports: Hx End Stage Renal Disease - On hemodialysis 7 days a week, Hx Hemodialysis, Hx Ovarian Cysts. Denies: Hx Peritoneal Abena lysis Malignancy Medical History: GI Medical History: Reports: Hx Gastritis Musculoskeletal Medical History: Skin Medical History: Reports Hx Psoriasis Psychiatric Medical History: Reports: Hx Depression Traumatic Medical History: Infectious Medical History: Past Surgical History: Reports: Hx Appendectomy, Hx Cholecystectomy, Hx Vascular Surgery - Lt AV Fistula and graft; Rt AV fistula - Immunizations Immunizations up to date: Yes Hx Diphtheria, Pertussis, Tetanus Vaccination: Yes Hx Pneumococcal Vaccination: 08/22/11 Review of Systems - Review of Systems Constitutional: Weakness. denies: Fever Cardiovascular: denies: Chest pain, Palpitations Respiratory: Cough, Short of breath Gastrointestinal: denies: Diarrhea, Vomiting -: Yes All other systems reviewed and negative Physical Exam - Vital signs Vitals: Temp Pulse Resp BP Pulse Ox 97.9 F 90 18 134/99 H 96 09/11/19 12:13 09/11/19 12:13 09/11/19 12:13 09/11/19 12:13 09/11/19 12:13 Interpretation: Normal - General General appearance: Lethargic In distress: None - HEENT Head: Normocephalic, Atraumatic Eyes: Normal Pupils: PERRL - Respiratory Respiratory status: No respiratory distress Chest status: Nontender Breath sounds: Decreased air movement Chest palpation: Normal - Cardiovascular Rhythm: Regular Heart sounds: Normal auscultation Murmur: No - Abdominal Inspection: Normal Distension: No distension Bowel sounds: Normal Tenderness: Nontender Organomegaly: No organomegaly - Back Back: Normal, Nontender - Extremities General upper extremity: Normal inspection, Nontender, Normal color, Normal ROM, Normal temperature General lower extremity: Normal inspection, Nontender, Edema - 1+ bilateral pitting edema, Normal color, Normal ROM, Normal temperature. No: Lina's sign - Neurological Neuro grossly intact: Yes Cognition: Inattentive [place] Coma Scale Eye Opening: To Voice [place] Coma Scale Verbal: Oriented [place] Coma Scale Motor: Obeys Commands [place] Coma Scale Total: 14 Speech: Normal Motor strength normal: LUE, RUE, LLE, RLE - Psychological Associated symptoms: Depressed, Flat affect - Skin Skin Temperature: Warm Skin Moisture: Dry Skin Color: Normal Course - Re-evaluation Re-evalutation: 09/11/19 15:21 Patient comes in with altered mental status from dialysis. It is unclear at this time with patient's altered mental status is secondary to. Patient CO2 on her blood gas is normal. Therefore does not hypercapnia. She is not hypotensive. Patient does take Percocet daily however there is no significant change of mental status with Narcan. Patient is not obtunded. She will arouse and speak sensibly but is immediately falling back asleep as soon as she has done speaking. Sometimes she falls asleep mid sentence. Vital signs are otherwise stable however. Sats are 100% on room air. Patient did not receive dialysis today. Dr. Klein has seen her in the emergency department. She will receive dialysis at 7 AM tomorrow. Potassium is 5.5 and will be treated with Kayexalate. She has no significant pulmonary edema that requires intervention at this time. I have discussed the case with the slitter operator and patient will be transferred to the ICU. - Vital Signs Vital signs: Temp Pulse Resp BP Pulse Ox 97.9 F 90 13 140/96 H 100 09/11/19 12:13 09/11/19 12:13 09/11/19 13:01 09/11/19 13:00 09/11/19 13:01 - Laboratory Result Diagrams: 09/11/19 13:12 09/11/19 13:12 Laboratory results interpreted by me: 09/11/19 09/11/19 09/11/19 12:13 13:12 13:12 RBC 2.97 L Hgb 8.3 L Hct 25.7 L RDW 16.4 H Carbonic Acid ABG pH ABG pCO2 ABG HCO3 ABG Total CO2 VBG pH VBG HCO3 Sodium 134.9 L Potassium 5.5 H Chloride 94 L Carbon Dioxide 15 L Anion Gap 26 H BUN 112 H Creatinine 11.76 H Est GFR ( Amer) 4 L Est GFR (MDRD) Non-Af 4 L Glucose 191 H POC Glucose 304 H Calcium 6.8 L* Alkaline Phosphatase 154 H Creatine Kinase 139 H NT-Pro-B Natriuret Pep Total Protein 8.4 H 09/11/19 09/11/19 09/11/19 13:12 13:12 14:26 RBC Hgb Hct RDW Carbonic Acid 0.98 L ABG pH 7.25 L ABG pCO2 32.6 L ABG HCO3 14.1 L ABG Total CO2 15.1 L VBG pH 7.21 L VBG HCO3 17.2 L Sodium Potassium Chloride Carbon Dioxide Anion Gap BUN Creatinine Est GFR ( Amer) Est GFR (MDRD) Non-Af Glucose POC Glucose Calcium Alkaline Phosphatase Creatine Kinase NT-Pro-B Natriuret Pep 4930 H Total Protein - Diagnostic Test Radiology reviewed: Image reviewed, Reports reviewed - EKG Interpretation by Me EKG shows normal: Sinus rhythm Rate: Normal - 88 Rhythm: NSR Heart block present: 1st Degree Discharge - Discharge Clinical Impression: Hyperkalemia, ESRD (end stage renal disease) on dialysis, Acute anemia, Obesity, morbid, BMI 40.0-49.9, Insulin dependent diabetes mellitus Pulmonary edema Qualifiers: Chronicity: acute Qualified Code(s): J81.0 - Acute pulmonary edema Headache Qualifiers: Headache type: unspecified Headache chronicity pattern: acute headache Intractability: intractable Qualified Code(s): R51 - Headache Volume overload Qualifiers: Hypervolemia type: other Qualified Code(s): E87.79 - Other fluid overload Altered mental status Qualifiers: Altered mental status type: somnolence Qualified Code(s): R40.0 - Somnolence Condition: Serious Disposition: ADMITTED INPATIENT Admitting Provider: mauri-slitter operator Unit Admitted: ICU Referrals: HILARY HERNANDEZ MD [Primary Care Provider] - Follow up as needed
[2019-09-11] MEDS ORDERED: GLUCAGON,HUMAN RECOMB 1 MG INJ SUBCUT PRN (16:06)
[2019-09-11] MEDS ORDERED: DEXTROSE 50%-WATER 25 GM/50 ML DISP.SYRIN IV PRN ×4 (16:06→20:32)
[2019-09-11] MEDS ORDERED: DEXTROSE 40% GEL 15 GM TUBE PO PRN ×4 (16:06→20:32)
--- NOTE | 2019-09-11 16:54 | EKG REPORT ---
SEVERITY:- ABNORMAL ECG - SINUS RHYTHM FIRST DEGREE AV BLOCK PROLONGED QT INTERVAL : Confirmed by: Beatriz Leyva MD 11-Sep-2019 16:53:45
[2019-09-11 17:17] LABS: ACETAMINOPHEN < 10 ug/mL (10-30); BLOOD UREA NITROGEN 113 mg/dL (7-20); CARBON DIOXIDE 15 mmol/L (22-30); CHLORIDE 95 mmol/L (98-107); GLUCOSE 77 mg/dL (75-110); PHOSPHORUS 12.4 mg/dL (2.5-4.5); POTASSIUM 5.2 mmol/L (3.6-5.0)
[2019-09-11 17:24] LABS: ANION GAP 25 (5-19); CALCIUM 6.7 mg/dL (8.4-10.2)
[2019-09-11] MEDS: HEPARIN SOD (PORCINE) 5,000 UNIT/ML 1 ML VIAL SUBCUT SCH ×2 (18:10→23:02)
[2019-09-11] MEDS ORDERED: GLUCAGON,HUMAN RECOMB 1 MG INJ IM PRN (20:32)
--- NOTE | 2019-09-11 21:06 | CRITICAL CARE ADMISSION REPORT ---
HPI Date:: 09/11/19 Time:: 17:00 Reason for ICU Reason:: Encephalopathy. Suspicion for effect of mood altering medications HPI: 34-year-old black female with type 1 diabetes mellitus with frequent admissions for altered mental status and dialysis issues. She is on several mood altering medication and has been here on occasion for what appeared to be nonintentional overdose or excessive sedation. The patient was brought in by ambulance from the dialysis center but they would not perform the dialysis due to altered mental status. On arrival to the ED, patient complained of headache. She did not complain of this when I evaluated her. Unable to obtain a significant and salient history because of the patient's somnolent. She was noted to be sonorous but had an acceptable ABG. She was placed on BiPAP to assure that she maintained ventilation during this oversedation.. She is a poor historian because she was very somnolent in the ED. She would only wake up and say partial sentences before she fell back to sleep. She was given some doses of Narcan with some improvement over time. She denies taking any excessive medications such as narcotics. She states that she has not changed her medication regimen. When she was reevaluated in the ICU she complained of chest discomfort which worsened with deep inspiration. Her EKG did not show any significant changes and was improved from her initial presentation. She did have some slight QT prolongation. She endorses that this pain occurred last time she had pneumonia. She states she has felt warm and has had a slight cough but no shortness of breath s. No vomiting or diarrhea. She states she does not know why she is so sleepy. No known falls or trauma. History obtained from:: ED, medical records, Patient when improved - Diagnosis/Plan (1) Acute metabolic encephalopathy Plan: I suspect that the metabolic encephalopathy is related to patient's medications including Paxil, Neurontin and narcotics. Given that she has dialysis Wednesday and Wednesday it is conceivable logical and congruent that a synergistic effect of the prolonged metabolites of these medications linked to her chronic renal failure would be the etiologic process. I have reduced her medications and/or stop them. Continue to monitor in the ICU check an ammonia level. (2) Hypersomnolence disorder, acute Is this a current diagnosis for this admission?: Yes Plan: Please see above (3) Type 1 diabetes mellitus with complication, uncontrolled Is this a current diagnosis for this admission?: Yes Plan: We will start her on Lantus twice daily. She is on a significant amount of Levemir at home and will monitor her glucose here. Also written for subcutaneous coverage. She has not had dialysis so I will not place her on high-dose long-acting insulin. Diabetes is poorly controlled (4) Prolonged Q-T interval on ECG Is this a current diagnosis for this admission?: Yes Plan: We will monitor supportively. Allow magnesium levels to be slightly elevated. Have reduced medications which may contribute to this. (5) Chest pain of uncertain etiology Is this a current diagnosis for this admission?: Yes Plan: Patient states that she has had a work-up for this before. We will try to determine whether the work-up included a cardiac work-up. Although the age of 34 she is at risk for premature coronary artery disease and will obtain troponin and follow accordingly. Have added statin therapy. She is allergic to aspirin and this would not be suitable as a primary regimen without known coronary disease. Past Medical History Cardiac Medical History: Reports: Congestive Heart Failure, Coronary Artery Disease, Hypertension, Heart Murmur Pulmonary Medical History: Reports: Asthma, Pneumonia Neurological Medical History: Reports: Migraine, Seizures - only r/t low calcium Endocrine Medical History: Reports: Diabetes Mellitus Type 1 Renal/ Medical History: Reports: End Stage Renal Disease - On hemodialysis -W- Malignancy Medical History: GI Medical History: Musculoskeltal Medical History: Skin Medical History: Reports: Psoriasis Psychiatric Medical History: Reports: Depression Hematology: Reports: Anemia Infectious Medical History: Past Surgical History Past Surgical History: Reports: Appendectomy, Cholecystectomy, Vascular Surgery - Lt AV Fistula and graft; Rt AV fistula Social/Family History - Social History Smoking Status: Never Smoker Frequency of Alcohol Use: Occasional Hx Recreational Drug Use: No Drugs: None Hx Prescription Drug Abuse: No - Medication/Allergies Home Medications: Calcium Acetate [Phoslo 667 Mg Capsule] 1,334 mg PO .[id number] 09/11/19 Calcium Acetate [Phoslo 667 Mg Capsule] 2,001 mg PO Q8 09/11/19 Furosemide [Lasix 80 mg Tablet] 80 mg PO Q8 09/11/19 Gabapentin Enacarbil [Horizant] 300 mg PO MOWEFR@1000 09/11/19 Insulin Detemir [Levemir] 35 unit SQ BID 09/11/19 Insulin Lispro [Humalog Insulin 100 Unit/1 ml 3 ml Vial] 0 unit SUBCUT .SLD SCALE 09/11/19 Minocycline HCl [Dynacin] 100 mg PO BID 09/11/19 Nifedipine [Procardia XL 60 mg Tablet] 60 mg PO Q12 09/11/19 Oxcarbazepine [Trileptal] 300 mg PO Q12 09/11/19 Oxycodone HCl/Acetaminophen [Percocet 7.5-325 mg Tablet] 1 each PO QIDP PRN 09/11/19 Paroxetine HCl [Paxil] 80 mg PO QPM 09/11/19 Promethazine HCl 12.5 mg PO Q12HP PRN 09/11/19 Sodium Polystyrene Sulfonate 30 gm PO SRIVASTAVA@1000 09/11/19 Tizanidine HCl [Zanaflex] 4 mg PO BID 09/11/19 Allergies/Adverse Reactions: aspirin [Aspirin] Allergy (Verified 09/11/19 12:05) Anaphylaxis ciprofloxacin [From Cipro] Allergy (Verified 09/11/19 12:05) Anaphylaxis clindamycin [Clindamycin] Allergy (Verified 09/11/19 12:05) hydrocodone [From Vicodin] Allergy (Verified 09/11/19 12:05) ibuprofen [From Motrin] Allergy (Verified 09/11/19 12:05) Anaphylaxis lidocaine [From Lidoderm] Allergy (Verified 09/11/19 12:05) Generalized rash tramadol HCl [From Ultram] Allergy (Verified 09/11/19 12:05) vancomycin [Vancomycin] Allergy (Verified 09/11/19 12:05) Shortness of Breath nitroglycerin [Nitroglycerin] Adverse Reaction (Intermediate, Verified 09/11/19 12:05) Joint pain Review of Systems ROS unobtainable: Due to mental status Constitutional: PRESENT: as per HPI, fever(s) Cardiovascular: PRESENT: chest pain, edema. ABSENT: dyspnea on exertion, orthropnea, palpitations Gastrointestinal: ABSENT: abdominal pain Physical Exam Vital Signs: Temp Pulse Resp BP Pulse Ox 98.1 F 100 14 126/68 H 100 09/11/19 17:30 09/11/19 19:49 09/11/19 18:30 09/11/19 18:30 09/11/19 18:30 Intake & Output 10/09/11/19 09/12/19 06:59 06:59 06:59 Weight 113.398 kg Weight/Height Weight 113.398 kg General appearance: PRESENT: no acute distress, disheveled, morbidly obese Exam: Appearing 34-year-old black female no acute distress. She is somnolent but arouses to voice and stimulus. Is improved over multiple examinations Eye exam: PRESENT: conjunctiva pink, EOMI, PERRLA. ABSENT: conjunctival injection, nystagmus, scleral icterus Ear exam: PRESENT: normal external ear exam Mouth exam: PRESENT: moist, neck supple, tongue midline Teeth exam: PRESENT: poor dentation Neck exam: PRESENT: full ROM. ABSENT: carotid bruit, JVD, lymphadenopathy, meningismus, tenderness, thyromegaly, tracheal deviation Respiratory exam: PRESENT: chest wall tenderness - bilaterally. Reproduces pain but worse with inspiration, clear to auscultation freddy, symmetrical, unlabored. ABSENT: accessory muscle use, crackles, decreased breath sounds, prolonged expiratory phas, rales, retraction, rhonchi, wheezes Cardiovascular exam: PRESENT: RRR, +S1, +S2. ABSENT: bradycardia, clicks, diast olic murmur, gallop, rubs, tachycardia Pulses: PRESENT: +2 pedal pulses bilateral Vascular exam: PRESENT: normal capillary refill GI/Abdominal exam: PRESENT: normal bowel sounds, soft. ABSENT: ascites, diminished bowel sounds, distended, firm, guarding, mass, rebound, rigid, tenderness Rectal exam: PRESENT: deferred Extremities exam: PRESENT: pedal edema Musculoskeletal exam: PRESENT: normal inspection. ABSENT: deformity, dislocation Neurological exam: PRESENT: altered, oriented to person, oriented to place, oriented to time, oriented to situation - Over time, improved, CN II-XII grossly intact. ABSENT: motor sensory deficit, aphasic Psychiatric exam: PRESENT: unusual affect. ABSENT: agitated, anxious Skin exam: PRESENT: intact, normal color, warm. ABSENT: abrasion, cyanosis, mottled, petechiae, urticaria, vesicles Tubes/Lines: ABSENT: Endotracheal Tube, Chest Tube, Central Line, Arterial Catheter, Dialysis catheter, Peg Tube, Nasogastic Tube Laboratory/Radiographs Laboratory Results: 09/11/19 13:12 09/11/19 16:38 09/11/19 09/11/19 09/11/19 13:12 13:12 13:12 WBC 8.8 RBC 2.97 L Hgb 8.3 L Hct 25.7 L MCV 87 MCH 28.0 MCHC 32.4 RDW 16.4 H Plt Count 328 Seg Neutrophils % 65.4 Carbonic Acid HCO3/H2CO3 Ratio ABG pH ABG pCO2 ABG pO2 ABG HCO3 ABG O2 Saturation ABG Base Excess VBG pH 7.21 L VBG pCO2 43.7 VBG HCO3 17.2 L VBG Base Excess -10.0 FiO2 Sodium 134.9 L Potassium 5.5 H Chloride 94 L Carbon Dioxide 15 L Anion Gap 26 H BUN 112 H Creatinine 11.76 H Est GFR ( Amer) 4 L Glucose 191 H Serum Osmolality Lactic Acid Calcium 6.8 L* Phosphorus Magnesium Total Bilirubin 0.3 AST 15 Alkaline Phosphatase 154 H Ammonia Total Protein 8.4 H Albumin 4.5 TSH Free T4 Serum HCG, Qual 09/11/19 09/11/19 09/11/19 13:12 13:12 14:26 WBC RBC Hgb Hct MCV MCH MCHC RDW Plt Count Seg Neutrophils % Carbonic Acid 0.98 L HCO3/H2CO3 Ratio 14:1 ABG pH 7.25 L ABG pCO2 32.6 L ABG pO2 86.6 ABG HCO3 14.1 L ABG O2 Saturation 95.3 ABG Base Excess -12.0 VBG pH VBG pCO2 VBG HCO3 VBG Base Excess FiO2 2L Sodium Potassium Chloride Carbon Dioxide Anion Gap BUN Creatinine Est GFR ( Amer) Glucose Serum Osmolality Lactic Acid 0.7 Calcium Phosphorus Magnesium Total Bilirubin AST Alkaline Phosphatase Ammonia Total Protein Albumin TSH 1.68 Free T4 Serum HCG, Qual 09/11/19 09/11/19 09/11/19 16:38 16:38 16:38 WBC RBC Hgb Hct MCV MCH MCHC RDW Plt Count Seg Neutrophils % Carbonic Acid HCO3/H2CO3 Ratio ABG pH ABG pCO2 ABG pO2 ABG HCO3 ABG O2 Saturation ABG Base Excess VBG pH VBG pCO2 VBG HCO3 VBG Base Excess FiO2 Sodium 135.0 L Potassium 5.2 H Chloride 95 L Carbon Dioxide 15 L Anion Gap 25 H BUN 113 H Creatinine 12.03 H Est GFR ( Amer) 4 L Glucose 77 Serum Osmolality 319 H Lactic Acid Calcium 6.7 L* Phosphorus 12.4 H Magnesium 2.6 H Total Bilirubin AST Alkaline Phosphatase Ammonia < 8.7 L Total Protein Albumin TSH Free T4 Serum HCG, Qual 09/11/19 09/11/19 16:38 16:38 WBC RBC Hgb Hct MCV MCH MCHC RDW Plt Count Seg Neutrophils % Carbonic Acid HCO3/H2CO3 Ratio ABG pH ABG pCO2 ABG pO2 ABG HCO3 ABG O2 Saturation ABG Base Excess VBG pH VBG pCO2 VBG HCO3 VBG Base Excess FiO2 Sodium Potassium Chloride Carbon Dioxide Anion Gap BUN Creatinine Est GFR ( Amer) Glucose Serum Osmolality Lactic Acid Calcium Phosphorus Magnesium Total Bilirubin AST Alkaline Phosphatase Ammonia Total Protein Albumin TSH Free T4 0.79 Serum HCG, Qual NEGATIVE 09/11/19 09/11/19 09/11/19 13:12 13:12 16:38 Creatine Kinase 139 H CK-MB (CK-2) 1.28 Troponin I < 0.012 0.012 NT-Pro-B Natriuret Pep 4930 H Impressions: Chest X-Ray 09/11/19 12:30 IMPRESSION: CARDIAC ENLARGEMENT. MILD VASCULAR CONGESTION. Head CT 09/11/19 13:36 IMPRESSION: NORMAL BRAIN CT WITHOUT CONTRAST. EVIDENCE OF ACUTE STROKE: NO. EKG: QTc 522. Improved lateral T wave changes Critical Time Critical Time (minutes): 68 -: The care of a critically ill patient is dynamic. This note represents a static moment in the admission process. orders and treatments may be given simultaneously and urgently, and time is not traveling sales representative of the treatment process. This patient requires Critical Care secondary to life threatening organ or limb dysfunction. Without the need for Critical Care services, the patient is at risk for increased mortality and morbidity.
[2019-09-11 21:29] LABS: C-REACTIVE PROTEIN 44.2 mg/L (<10.0); GLUCOSE 132 mg/dL (75-110); POTASSIUM 5.8 mmol/L (3.6-5.0)
[2019-09-11 21:33] LABS: CARBON DIOXIDE 15 mmol/L (22-30); CHLORIDE 96 mmol/L (98-107)
[2019-09-11 21:34] LABS: BLOOD UREA NITROGEN 119 mg/dL (7-20)
[2019-09-11 21:35] LABS: ANION GAP 23 (5-19)
[2019-09-11 21:39] LABS: CALCIUM 6.4 mg/dL (8.4-10.2)
[2019-09-11 21:44] LABS: TROPONIN I < 0.012 ng/mL
[2019-09-11] MEDS ORDERED: INSULIN GLARGINE,HUM.REC.ANLOG 1,000 UNIT/10 ML VIAL SUBCUT SCH (22:00)
[2019-09-11] MEDS: INSULIN LISPRO 100 UNIT/ML 3 ML VIAL SUBCUT SCH (22:52)
[2019-09-11] MEDS: NIFEDIPINE 30 MG TAB.ER.24 PO SCH ×2 (22:58→23:12)
[2019-09-11] MEDS ORDERED: EPOETIN ALFA-EPBX 20,000 UNIT in SYRINGE, DISPOSABLE, 1 EACH IV PRN (22:58)
[2019-09-11] MEDS: FUROSEMIDE 80 MG TABLET PO SCH ×2 (22:59→23:11)
[2019-09-12] MEDS: INSULIN LISPRO 100 UNIT/ML 3 ML VIAL SUBCUT SCH ×4 (00:15→17:28)
[2019-09-12] MEDS ORDERED: PROMETHAZINE HCL INJ 25 MG/1 ML VIAL IV PRN (01:56)
[2019-09-12] MEDS ORDERED: HYDRALAZINE HCL INJ/PF 20 MG/1 ML SDV IV PRN (02:03)
[2019-09-12 02:56] LABS: ABSOLUTE EOSINOPHILS # (AUTO) 0.4 10^3/uL (0.0-0.6); ABSOLUTE LYMPHOCYTES (AUTO) 2.7 10^3/uL (0.5-4.7); ABSOLUTE MONOCYTES (AUTO) 0.7 10^3/uL (0.1-1.4); ABSOLUTE NEUT (AUTO) 6.3 10^3/uL (1.7-8.2); BASOPHILS % (AUTO) 0.2 % (0-2); EOSINOPHILS % (AUTO) 3.6 % (0-6); HEMATOCRIT 24.9 % (36.0-47.0); HEMOGLOBIN 8.1 g/dL (12.0-15.5); LYMPHOCYTES % (AUTO) 26.4 % (13-45); MEAN CORPUSCULAR HEMOGLOBIN 28.1 pg (27.0-33.4); MEAN CORPUSCULAR HGB CONC 32.6 g/dL (32.0-36.0); MEAN CORPUSCULAR VOLUME 86 fl (80-97); MONOCYTES % (AUTO) 7.4 % (3-13); PLATELET COUNT 321 10^3/uL (150-450); RED BLOOD COUNT 2.88 10^6/uL (3.72-5.28); RED CELL DISTRIBUTION WIDTH 16.3 % (11.5-14.0); SEGMENTED NEUTROPHILS % (AUTO) 62.4 % (42-78); TOTAL CELLS COUNTED % (AUTO) 100 %; WHITE BLOOD COUNT 10.1 10^3/uL (4.0-10.5)
[2019-09-12 03:30] LABS: ALBUMIN 4.2 g/dL (3.5-5.0); ALKALINE PHOSPHATASE 153 U/L (38-126); ASPARTATE AMINO TRANSFERASE 17 U/L (14-36); BILIRUBIN,DIRECT 0.4 mg/dL (0.0-0.4); BILIRUBIN,TOTAL 0.4 mg/dL (0.2-1.3); CARBON DIOXIDE 15 mmol/L (22-30); GLUCOSE 88 mg/dL (75-110); TOTAL PROTEIN 7.9 g/dL (6.3-8.2)
[2019-09-12 03:35] LABS: CHLORIDE 97 mmol/L (98-107)
[2019-09-12 03:42] LABS: ANION GAP 24 (5-19); BLOOD UREA NITROGEN 122 mg/dL (7-20); CREATINE KINASE MB 1.13 ng/mL (<4.55)
[2019-09-12 03:44] LABS: CALCIUM 6.4 mg/dL (8.4-10.2)
[2019-09-12 03:46] LABS: TROPONIN I < 0.012 ng/mL
[2019-09-12] MEDS: HEPARIN SOD (PORCINE) 5,000 UNIT/ML 1 ML VIAL SUBCUT SCH ×3 (05:52→22:14)
[2019-09-12] MEDS: FUROSEMIDE 80 MG TABLET PO SCH ×2 (05:52→15:21)
[2019-09-12] MEDS ORDERED: CALCIUM ACETATE 667 MG CAPSULE PO SCH (08:00)
[2019-09-12] MEDS ORDERED: HEPARIN SOD (PORCINE) 1,000 UNIT/ML 10 ML VIAL IV PRN (09:00)
--- NOTE | 2019-09-12 09:25 | EKG REPORT ---
SEVERITY:- ABNORMAL ECG - SINUS RHYTHM PROBABLE LEFT VENTRICULAR HYPERTROPHY PROLONGED QT INTERVAL : Confirmed by: Beatriz Leyva MD 12-Sep-2019 09:24:16
--- NOTE | 2019-09-12 09:25 | EKG REPORT ---
SEVERITY:- ABNORMAL ECG - SINUS RHYTHM PROLONGED QT INTERVAL : Confirmed by: Beatriz Leyva MD 12-Sep-2019 09:24:12
--- NOTE | 2019-09-12 09:25 | EKG REPORT ---
SEVERITY:- ABNORMAL ECG - SINUS RHYTHM FIRST DEGREE AV BLOCK NONSPECIFIC T ABNORMALITIES, LATERAL LEADS PROLONGED QT INTERVAL : Confirmed by: Beatriz Leyva MD 12-Sep-2019 09:24:20
[2019-09-12] MEDS ORDERED: EPOETIN ALFA-EPBX 10,000 UNIT/ML VIAL (RENAL) IV ONE (09:45)
[2019-09-12] MEDS ORDERED: PAROXETINE HCL 20 MG TABLET PO SCH (10:00)
--- NOTE | 2019-09-12 10:13 | PDOC CONSULTATION ---
Consultation Consult Date: 09/12/19 Provider Consulted: ERICA IVY Consult reason:: I was asked to see patient for HD in an ESRD patient. History of Present Illness Admission Date/PCP: 09/11/19 15:43 HILARY HERNANDEZ MD History of Present Illness: ERICH GOODMAN is a 34 year old lady known to me with history of ESRD on maintenance hemodialysis 4 times a week on Wednesday, Wednesday, Wednesday and Wednesday secondary to diabetic nephropathy, known noncompliance with treatments, diabetes mellitus type 1, hypertension, anemia of chronic kidney disease, and multiple hospitalizations due to noncompliance presenting with fluid overload and hyperkalemia for the most part who was admitted yesterday because of altered mental status. Initial admission reports he states that the patient was brought into the room the dialysis unit because of altered mental status. She was thought to be oversedated due to medications although patient denies taking medications which she confirms today saying that she does not take any medications prior to dialysis. She was placed on BiPAP and was also given Na rcan with elevated of improvement. Her complaints on initial presentation include headache and chest pains. She was also found to have prolonged QT. I am seeing her today this morning during dialysis treatment. She is sleeping most the time but arousable when prompted. She answers few questions. She relates that she was sitting at home and was feeling short of breath just walking very short distances. She tells me that her mother told her that she was hallucinating. She was just admitted at [facility] about a week ago. Again she denies taking any medications yesterday prior to her supposedly dialysis. She was not dialyzed yesterday. Her last dialysis was Wednesday. She said the last time she took her Percocet was last Wednesday. She reiterated that her chest hurts across the chest up to her armpit. She has occasional cough with some sputum production. She is nauseous but no vomiting. She denies any fever. She has constipation. Currently she is tolerating dialysis. Past Medical History Cardiac Medical History: Reports: Coronary Artery Disease, Heart Murmur, Hypertension-primary Pulmonary Medical History: Reports: Asthma, Pneumonia Neurological Medical History: Reports: Migraine, Seizures - only r/t low calcium Endocrine Medical History: Reports: Diabetes Mellitus Type 1 Complications of Diabetes: Reports: Autonomic Neuropathy, Nephropathy, Retinopathy Renal/ Medical History: Reports: End Stage Renal Disease - On hemodialysis [id number], Hypocalcemia, Hyperkalemia, Hyperphosphatemia, Secondary H yperparathyroidism Malignancy Medical History: GI Medical History: Musculoskeltal Medical History: Skin Medical History: Reports: Psoriasis Psychiatric Medical History: Reports: Depression Infectious Medical History: Hematology Medical History: Reports Anemia of Chronic Kidney Disease Past Surgical History Past Surgical History: Reports: Appendectomy, Cholecystectomy, Dialysis Access Surgery AVF, Vascular Surgery - Lt AV Fistula and graft; Rt AV fistula Social History Information Source: [facility] Records Lives with: Family - Her mother and son Smoking Status: Never Smoker Frequency of Alcohol Use: Occasional Hx Recreational Drug Use: No Drugs: None Hx Prescription Drug Abuse: No - Advance Directive Resuscitation Status: Full Code Family History Family History: No family history of kidney disease. Son has autism. Parental Family History Reviewed: Yes Children Family History Reviewed: Yes Sibling(s) Family History Reviewed.: Yes Medication/Allergy Home Medications: Calcium Acetate [Phoslo 667 Mg Capsule] 1,334 mg PO .[id number] 09/11/19 Calcium Acetate [Phoslo 667 Mg Capsule] 2,001 mg PO Q8 09/11/19 Furosemide [Lasix 80 mg Tablet] 80 mg PO Q8 09/11/19 Gabapentin Enacarbil [Horizant] 300 mg PO MOWEFR@1000 09/11/19 Insulin Detemir [Levemir] 35 unit SQ BID 09/11/19 Insulin Lispro [Humalog Insulin 100 Unit/1 ml 3 ml Vial] 0 unit SUBCUT .SLD SCALE 09/11/19 Minocycline HCl [Dynacin] 100 mg PO BID 09/11/19 Nifedipine [Procardia XL 60 mg Tablet] 60 mg PO Q12 09/11/19 Oxcarbazepine [Trileptal] 300 mg PO Q12 09/11/19 Oxycodone HCl/Acetaminophen [Percocet 7.5-325 mg Tablet] 1 each PO QIDP PRN 09/11/19 Paroxetine HCl [Paxil] 80 mg PO QPM 09/11/19 Promethazine HCl 12.5 mg PO Q12HP PRN 09/11/19 Sodium Polystyrene Sulfonate 30 gm PO SRIVASTAVA@1000 09/11/19 Tizanidine HCl [Zanaflex] 4 mg PO BID 09/11/19 Allergies/Adverse Reactions: aspirin [Aspirin] Allergy (Verified 09/11/19 12:05) Anaphylaxis ciprofloxacin [From Cipro] Allergy (Verified 09/11/19 12:05) Anaphylaxis clindamycin [Clindamycin] Allergy (Verified 09/11/19 12:05) hydrocodone [From Vicodin] Allergy (Verified 09/11/19 12:05) ibuprofen [From Motrin] Allergy (Verified 09/11/19 12:05) Anaphylaxis lidocaine [From Lidoderm] Allergy (Verified 09/11/19 12:05) Generalized rash tramadol HCl [From Ultram] Allergy (Verified 09/11/19 12:05) vancomycin [Vancomycin] Allergy (Verified 09/11/19 12:05) Shortness of Breath nitroglycerin [Nitroglycerin] Adverse Reaction (Intermediate, Verified 09/11/19 12:05) Joint pain Review of Systems All systems: reviewed and no additional remarkable complaints except as stated Review of Systems: Constitutional: ABSENT: chills, fatigue, fever(s), headache(s), weight gain, weight loss Eyes: ABSENT: visual disturbances Ears: ABSENT: hearing changes Cardiovascular: ABSENT: Edema, orthropnea, palpitations; admits chest pains and shortness of breath Respiratory: ABSENT: Hemoptysis; admits cough Gastrointestinal: ABSENT: Diarrhea, hematemesis, hematochezia, vomiting; admits constipation, abdominal pain during dialysis and nausea Genitourinary: ABSENT: dysuria, hematuria Musculoskeletal: ABSENT: joint swelling Integumentary: ABSENT: rash, wounds Neurological: ABSENT: abnormal gait, abnormal speech, dizziness, focal weakness, numbness, syncope; reportedly has some hallucinations and altered mental status Psychiatric: ABSENT: anxiety, depression Endocrine: ABSENT: cold intolerance, heat intolerance, polydipsia, polyuria Hematologic/Lymphatic: ABSENT: easy bleeding, easy bruising, lymphadenopathy Physical Exam Vital Signs: Temp Pulse Resp BP Pulse Ox 97.6 F 84 14 157/86 H 100 09/12/19 09:00 09/12/19 09:00 09/12/19 09:00 09/12/19 09:00 09/12/19 09:00 Intake & Output 09/11/19 09/12/19 09/13/19 06:59 06:59 06:59 Intake Total 0 0 Output Total 0 0 Balance 0 0 Weight 131.7 kg Vitals during dialysis: Blood pressure 137/112, heart rate of 86, oxygen saturation 100% with oxygen at 2 L via nasal cannula, blood flow rate of 450 mL/min and dialysate flow rate of 800 mL/min. Exam: General appearance: No acute distress, cooperative, well-developed, well- nourished Head exam: PRESENT: atraumatic, normocephalic; face appears swollen Eye exam: PRESENT: Conjunctiva Rankin, EOMI, PERRLA. ABSENT: conjunctival injection, scleral icterus Mouth exam: PRESENT: moist, neck supple, tongue midline Neck exam: PRESENT: full ROM. ABSENT: carotid bruit, JVD, lymphadenopathy, thyromegaly Respiratory exam: PRESENT: Diminished to auscultation bilaterally. ABSENT: rales, rhonchi, stridor, wheezes Cardiovascular exam: PRESENT: RRR, +S1, +S2. ABSENT: systolic murmur Pulses: PRESENT: normal radial pulses, normal dorsalis pedis pulses GI/Abdominal exam: PRESENT: normal bowel sounds, soft. ABSENT: guarding, mass, tenderness Rectal exam: Deferred Extremities exam: PRESENT: full ROM. Positive edema in upper extremities and grade 1 lower extremity pitting edema. Her skin is generally tight ABSENT: calf tenderness Musculoskeletal: PRESENT: full ROM. ABSENT: deformity Neurological exam: PRESENT: Very somnolent but arousable and answers questions, Oriented to person, Oriented to place, Oriented to time, reflexes normal, CN II-XII grossly intact. ABSENT: motor sensory deficit Psychiatric exam: PRESENT: appropriate affect, normal mood. ABSENT: homicidal ideation, suicidal ideation Skin exam: PRESENT: intact, dry, warm. ABSENT: rash Results Laboratory Results: 09/12/19 02:49 09/12/19 02:49 09/11/19 09/11/19 09/11/19 13:12 13:12 13:12 WBC 8.8 RBC 2.97 L Hgb 8.3 L Hct 25.7 L MCV 87 MCH 28.0 MCHC 32.4 RDW 16.4 H Plt Count 328 Seg Neutrophils % 65.4 Carbonic Acid HCO3/H2CO3 Ratio ABG pH ABG pCO2 ABG pO2 ABG HCO3 ABG O2 Saturation ABG Base Excess VBG pH 7.21 L VBG pCO2 43.7 VBG HCO3 17.2 L VBG Base Excess -10.0 FiO2 Sodium 134.9 L Potassium 5.5 H Chloride 94 L Carbon Dioxide 15 L Anion Gap 26 H BUN 112 H Creatinine 11.76 H Est GFR ( Amer) 4 L Glucose 191 H Serum Osmolality Lactic Acid Calcium 6.8 L* Phosphorus Magnesium Total Bilirubin 0.3 AST 15 Alkaline Phosphatase 154 H Ammonia C-Reactive Protein Total Protein 8.4 H Albumin 4.5 TSH Free T4 Serum HCG, Qual 09/11/19 09/11/19 09/11/19 13:12 13:12 14:26 WBC RBC Hgb Hct MCV MCH MCHC RDW Plt Count Seg Neutrophils % Carbonic Acid 0.98 L HCO3/H2CO3 Ratio 14:1 ABG pH 7.25 L ABG pCO2 32.6 L ABG pO2 86.6 ABG HCO3 14.1 L ABG O2 Saturation 95.3 ABG Base Excess -12.0 VBG pH VBG pCO2 VBG HCO3 VBG Base Excess FiO2 2L Sodium Potassium Chloride Carbon Dioxide Anion Gap BUN Creatinine Est GFR ( Amer) Glucose Serum Osmolality Lactic Acid 0.7 Calcium Phosphorus Magnesium Total Bilirubin AST Alkaline Phosphatase Ammonia C-Reactive Protein Total Protein Albumin TSH 1.68 Free T4 Serum HCG, Qual 09/11/19 09/11/19 09/11/19 16:38 16:38 16:38 WBC RBC Hgb Hct MCV MCH MCHC RDW Plt Count Seg Neutrophils % Carbonic Acid HCO3/H2CO3 Ratio ABG pH ABG pCO2 ABG pO2 ABG HCO3 ABG O2 Saturation ABG Base Excess VBG pH VBG pCO2 VBG HCO3 VBG Base Excess FiO2 Sodium 135.0 L Potassium 5.2 H Chloride 95 L Carbon Dioxide 15 L Anion Gap 25 H BUN 113 H Creatinine 12.03 H Est GFR ( Amer) 4 L Glucose 77 Serum Osmolality 319 H Lactic Acid Calcium 6.7 L* Phosphorus 12.4 H Magnesium 2.6 H Total Bilirubin AST Alkaline Phosphatase Ammonia < 8.7 L C-Reactive Protein Total Protein Albumin TSH Free T4 Serum HCG, Qual 09/11/19 09/11/19 09/11/19 16:38 16:38 20:55 WBC RBC Hgb Hct MCV MCH MCHC RDW Plt Count Seg Neutrophils % Carbonic Acid HCO3/H2CO3 Ratio ABG pH ABG pCO2 ABG pO2 ABG HCO3 ABG O2 Saturation ABG Base Excess VBG pH VBG pCO2 VBG HCO3 VBG Base Excess FiO2 Sodium 133.6 L Potassium 5.8 H Chloride 96 L Carbon Dioxide 15 L Anion Gap 23 H BUN 119 H Creatinine 12.99 H Est GFR ( Amer) 4 L Glucose 132 H Serum Osmolality Lactic Acid Calcium 6.4 L* Phosphorus Magnesium 2.5 H Total Bilirubin AST Alkaline Phosphatase Ammonia C-Reactive Protein 44.2 H Total Protein Albumin TSH Free T4 0.79 Serum HCG, Qual NEGATIVE 09/12/19 09/12/19 09/12/19 02:49 02:49 02:49 WBC 10.1 RBC 2.88 L Hgb 8.1 L Hct 24.9 L MCV 86 MCH 28.1 MCHC 32.6 RDW 16.3 H Plt Count 321 Seg Neutrophils % 62.4 Carbonic Acid HCO3/H2CO3 Ratio ABG pH ABG pCO2 ABG pO2 ABG HCO3 ABG O2 Saturation ABG Base Excess VBG pH VBG pCO2 VBG HCO3 VBG Base Excess FiO2 Sodium 135.5 L Potassium 5.0 Chloride 97 L Carbon Dioxide 15 L Anion Gap 24 H BUN 122 H Creatinine 13.47 H Est GFR ( Amer) 4 L Glucose 88 Serum Osmolality Lactic Acid Calcium 6.4 L* Phosphorus 12.0 H Magnesium 2.6 H Total Bilirubin 0.4 AST 17 Alkaline Phosphatase 153 H Ammonia < 8.7 L C-Reactive Protein Total Protein 7.9 Albumin 4.2 TSH Free T4 Serum HCG, Qual 09/11/19 09/11/19 09/11/19 13:12 13:12 16:38 Creatine Kinase 139 H CK-MB (CK-2) 1.28 Troponin I < 0.012 0.012 NT-Pro-B Natriuret Pep 4930 H 09/11/19 09/11/19 09/12/19 20:55 20:55 02:49 Creatine Kinase 145 H 149 H CK-MB (CK-2) 1.20 Troponin I < 0.012 NT-Pro-B Natriuret Pep 09/12/19 02:49 Creatine Kinase CK-MB (CK-2) 1.13 Troponin I < 0.012 NT-Pro-B Natriuret Pep Impressions: Chest X-Ray 09/11/19 12:30 IMPRESSION: CARDIAC ENLARGEMENT. MILD VASCULAR CONGESTION. Head CT 09/11/19 13:36 IMPRESSION: NORMAL BRAIN CT WITHOUT CONTRAST. EVIDENCE OF ACUTE STROKE: NO. Assessment & Plan - Diagnosis (1) Acute metabolic encephalopathy Is this a current diagnosis for this admission?: Yes Plan: Exact etiology uncertain but could be multifactorial. Possible causes include pain medications, and missing dialysis. (2) End stage renal disease on dialysis Is this a current diagnosis for this admission?: Yes Plan: We will do dialysis today for 3 hours, using the patient's AV fistula, with [3.0 calcium and 2 potassium bath, blood flow rate of 450 mL per minute, dialysate flow rate of 800 mL per minute, ultrafiltration at least 5 L as tolerated, heparin per protocol and Procrit with 20,000 units during dialysis intravenously. Patient will be monitored throughout dialysis treatment for her dialysis nurse. We will adjust treatment especially ultrafiltration depending on the patient's response. If patient improves after dialysis today, hopefully she can be transferred out of ICU. (3) Volume overload Qualifiers: Hypervolemia type: other Qualified Code(s): E87.79 - Other fluid overload Is this a current diagnosis for this admission?: Yes Plan: Patient dry weight is 116 kg and she is 131 kg today. Fortunately her chest x- ray did not show much of pulmonary edema as she usually presents with. However clinically she has peripheral edema and fluid retention. We will do as much ultrafiltration as patient tolerates during dialysis today. (4) Metabolic acidosis Is this a current diagnosis for this admission?: Yes Plan: Her blood sugar is not elevated. This could be related to her ESRD and missing dialysis. (5) Anemia in chronic kidney disease (CKD) Qualifiers: Chronic kidney disease stage: on chronic dialysis Qualified Code(s): N18.6 - End stage renal disease; D63.1 - Anemia in chronic kidney disease; Z99.2 - Dependence on renal dialysis Is this a current diagnosis for this admission?: Yes Plan: Patient will be given Procrit during dialysis treatment. (6) Hypermagnesemia Is this a current diagnosis for this admission?: Yes (7) Chest pain of uncertain etiology Is this a current diagnosis for this admission?: Yes Plan: Troponin is within acceptable normal limits. Consider other causes including musculoskeletal cause. (8) Type 1 diabetes mellitus with complication, uncontrolled Is this a current diagnosis for this admission?: Yes (9) Hyperphosphatemia Is this a current diagnosis for this admission?: Yes Plan: Uncontrolled. This brings about hypocalcemia. Patient has not been very compliant with diet nor medications. Resume her calcium acetate 667 mg 4 capsules with meals. (10) Hypertension Qualifiers: Is this a current diagnosis for this admission?: Yes Plan: He usually goes up with fluid retention. Ultrafiltration and dialysis usually helps control blood pressure. Continue baseline blood pressure medications. (11) Hypocalcemia Is this a current diagnosis for this admission?: Yes Plan: Associated with severe hyperphosphatemia. We will give IV calcium gluconate and use higher calcium bath during dialysis. (12) Prolonged Q-T interval on ECG Is this a current diagnosis for this admission?: Yes (13) Obesity, morbid, BMI 40.0-49.9 Is this a current diagnosis for this admission?: Yes - Notes Notes: Thank you very much for the consultation. - Time Time Spent: Greater than 70 Minutes
[2019-09-12 10:18] LABS: CREATINE KINASE MB 1.16 ng/mL (<4.55)
[2019-09-12 10:25] LABS: TROPONIN I < 0.012 ng/mL
[2019-09-12] MEDS ORDERED: CALCIUM GLUCONATE 1000 MG/10 ML INJ IV ONE (10:30)
[2019-09-12] MEDS: INSULIN GLARGINE,HUM.REC.ANLOG 1,000 UNIT/10 ML VIAL SUBCUT SCH ×2 (11:03→22:15)
[2019-09-12] MEDS: GABAPENTIN 100 MG CAPSULE PO SCH (12:44)
[2019-09-12] MEDS: CALCIUM ACETATE 667 MG CAPSULE PO SCH ×2 (12:44→17:08)
[2019-09-12] MEDS: NIFEDIPINE 30 MG TAB.ER.24 PO SCH ×2 (12:44→22:14)
--- NOTE | 2019-09-12 12:51 | PDOC PROGRESS REPORT ---
Subjective Progress Note for:: 09/12/19 Subjective:: Patient's mental status has improved and she is able to communicate although still is lethargic at times. She was maintained on BiPAP because she had sonorous respirations yesterday. Her blood pressures have been slightly elevated but she is undergoing hemodialysis at this time. She is tolerating this well. She was started on basal insulin and lowest recorded blood sugar was 60 without symptoms. She endorses that her chest pain has improved. It is worse with palpation and deep inspiration. Lengthy discussion with nephrology consult service who relate that the patient has been very noncompliant with her treatment program. Notably her hemoglobin A1c is above 12. Lab work has all been essentially unremarkable and no etiologic cause for her sedation can be determined. Presumptively this appears to be all related to the accumulation of her mood altering medications and narcotic medications. She is on Neurontin for pain. Patient had 5 liters of fluid removed. Her dry weight is listed at 113 kg. Pre- dialysis weight today is 131. She states that she does urinate and is on lasix Q8h. Reason For Visit: ENCEPHALOPATHY, TOXIC Physical Exam Vital Signs: Temp Pulse Resp BP Pulse Ox 98.1 F 81 16 157/86 H 96 09/11/19 17:30 09/12/19 07:49 09/12/19 07:08 09/12/19 07:08 09/12/19 07:08 Intake & Output 09/11/19 09/12/19 09/13/19 06:59 06:59 06:59 Intake Total 0 Output Total 0 Balance 0 Weight 131.7 kg Physical Exam: Obese nontoxic but chronically ill appearing 34-year-old female no active distress. She is lethargic but arousable and communicative. General appearance: PRESENT: no acute distress, cooperative, morbidly obese Head exam: PRESENT: atraumatic, normocephalic Eye exam: PRESENT: conjunctiva pink, EOMI, PERRLA. ABSENT: conjunctival injection, nystagmus, scleral icterus Mouth exam: PRESENT: moist, neck supple Additional comments: Large rotund neck Teeth exam: PRESENT: poor dentation Neck exam: ABSENT: carotid bruit, JVD, lymphadenopathy, meningismus, thyromegaly Respiratory exam: PRESENT: clear to auscultation freddy, unlabored. ABSENT: accessory muscle use, stridor, tachypnea Cardiovascular exam: PRESENT: RRR, +S1, +S2. ABSENT: rubs, systolic murmur Additional comments: Heart sounds are distant Pulses: PRESENT: normal carotid pulses, +2 pedal pulses bilateral Vascular exam: PRESENT: normal capillary refill GI/Abdominal exam: PRESENT: normal bowel sounds, soft. ABSENT: ascites, distended, firm, guarding, mass, Mckinnon's sign, rebound, rigid, tenderness Rectal exam: ABSENT: deferred Extremities exam: PRESENT: full ROM, pedal edema. ABSENT: joint swelling Musculoskeletal exam: PRESENT: normal inspection. ABSENT: deformity, dislocation Neurological exam: PRESENT: awake, oriented to person, oriented to place, oriented to time, oriented to situation Psychiatric exam: PRESENT: depressed, flat affect Focused psych exam: ABSENT: psychomotor agitation, restlessness Skin exam: PRESENT: dry, intact, normal color. ABSENT: cyanosis, erythema, mottled, petechiae, rash, urticaria, vesicles Results Laboratory Results: 09/12/19 02:49 09/12/19 02:49 09/11/19 09/11/19 09/11/19 13:12 13:12 13:12 WBC 8.8 RBC 2.97 L Hgb 8.3 L Hct 25.7 L MCV 87 MCH 28.0 MCHC 32.4 RDW 16.4 H Plt Count 328 Seg Neutrophils % 65.4 Carbonic Acid HCO3/H2CO3 Ratio ABG pH ABG pCO2 ABG pO2 ABG HCO3 ABG O2 Saturation ABG Base Excess VBG pH 7.21 L VBG pCO2 43.7 VBG HCO3 17.2 L VBG Base Excess -10.0 FiO2 Sodium 134.9 L Potassium 5.5 H Chloride 94 L Carbon Dioxide 15 L Anion Gap 26 H BUN 112 H Creatinine 11.76 H Est GFR ( Amer) 4 L Glucose 191 H Serum Osmolality Lactic Acid Calcium 6.8 L* Phosphorus Magnesium Total Bilirubin 0.3 AST 15 Alkaline Phosphatase 154 H Ammonia C-Reactive Protein Total Protein 8.4 H Albumin 4.5 TSH Free T4 Serum HCG, Qual 09/11/19 09/11/19 09/11/19 13:12 13:12 14:26 WBC RBC Hgb Hct MCV MCH MCHC RDW Plt Count Seg Neutrophils % Carbonic Acid 0.98 L HCO3/H2CO3 Ratio 14:1 ABG pH 7.25 L ABG pCO2 32.6 L ABG pO2 86.6 ABG HCO3 14.1 L ABG O2 Saturation 95.3 ABG Base Excess -12.0 VBG pH VBG pCO2 VBG HCO3 VBG Base Excess FiO2 2L Sodium Potassium Chloride Carbon Dioxide Anion Gap BUN Creatinine Est GFR ( Amer) Glucose Serum Osmolality Lactic Acid 0.7 Calcium Phosphorus Magnesium Total Bilirubin AST Alkaline Phosphatase Ammonia C-Reactive Protein Total Protein Albumin TSH 1.68 Free T4 Serum HCG, Qual 09/11/19 09/11/19 09/11/19 16:38 16:38 16:38 WBC RBC Hgb Hct MCV MCH MCHC RDW Plt Count Seg Neutrophils % Carbonic Acid HCO3/H2CO3 Ratio ABG pH ABG pCO2 ABG pO2 ABG HCO3 ABG O2 Saturation ABG Base Excess VBG pH VBG pCO2 VBG HCO3 VBG Base Excess FiO2 Sodium 135.0 L Potassium 5.2 H Chloride 95 L Carbon Dioxide 15 L Anion Gap 25 H BUN 113 H Creatinine 12.03 H Est GFR ( Amer) 4 L Glucose 77 Serum Osmolality 319 H Lactic Acid Calcium 6.7 L* Phosphorus 12.4 H Magnesium 2.6 H Total Bilirubin AST Alkaline Phosphatase Ammonia < 8.7 L C-Reactive Protein Total Protein Albumin TSH Free T4 Serum HCG, Qual 09/11/19 09/11/19 09/11/19 16:38 16:38 20:55 WBC RBC Hgb Hct MCV MCH MCHC RDW Plt Count Seg Neutrophils % Carbonic Acid HCO3/H2CO3 Ratio ABG pH ABG pCO2 ABG pO2 ABG HCO3 ABG O2 Saturation ABG Base Excess VBG pH VBG pCO2 VBG HCO3 VBG Base Excess FiO2 Sodium 133.6 L Potassium 5.8 H Chloride 96 L Carbon Dioxide 15 L Anion Gap 23 H BUN 119 H Creatinine 12.99 H Est GFR ( Amer) 4 L Glucose 132 H Serum Osmolality Lactic Acid Calcium 6.4 L* Phosphorus Magnesium 2.5 H Total Bilirubin AST Alkaline Phosphatase Ammonia C-Reactive Protein 44.2 H Total Protein Albumin TSH Free T4 0.79 Serum HCG, Qual NEGATIVE 09/12/19 09/12/19 09/12/19 02:49 02:49 02:49 WBC 10.1 RBC 2.88 L Hgb 8.1 L Hct 24.9 L MCV 86 MCH 28.1 MCHC 32.6 RDW 16.3 H Plt Count 321 Seg Neutrophils % 62.4 Carbonic Acid HCO3/H2CO3 Ratio ABG pH ABG pCO2 ABG pO2 ABG HCO3 ABG O2 Saturation ABG Base Excess VBG pH VBG pCO2 VBG HCO3 VBG Base Excess FiO2 Sodium 135.5 L Potassium 5.0 Chloride 97 L Carbon Dioxide 15 L Anion Gap 24 H BUN 122 H Creatinine 13.47 H Est GFR ( Amer) 4 L Glucose 88 Serum Osmolality Lactic Acid Calcium 6.4 L* Phosphorus 12.0 H Magnesium 2.6 H Total Bilirubin 0.4 AST 17 Alkaline Phosphatase 153 H Ammonia < 8.7 L C-Reactive Protein Total Protein 7.9 Albumin 4.2 TSH Free T4 Serum HCG, Qual 09/11/19 09/11/19 09/11/19 13:12 13:12 16:38 Creatine Kinase 139 H CK-MB (CK-2) 1.28 Troponin I < 0.012 0.012 NT-Pro-B Natriuret Pep 4930 H 09/11/19 09/11/19 09/12/19 20:55 20:55 02:49 Creatine Kinase 145 H 149 H CK-MB (CK-2) 1.20 Troponin I < 0.012 NT-Pro-B Natriuret Pep 09/12/19 02:49 Creatine Kinase CK-MB (CK-2) 1.13 Troponin I < 0.012 NT-Pro-B Natriuret Pep EKG Comments: Today's ECG shows improved but still elevated Qtc at 522 (down from 533). Impressions: Chest X-Ray 09/11/19 12:30 IMPRESSION: CARDIAC ENLARGEMENT. MILD VASCULAR CONGESTION. Head CT 09/11/19 13:36 IMPRESSION: NORMAL BRAIN CT WITHOUT CONTRAST. EVIDENCE OF ACUTE STROKE: NO. Assessment & Plan - Diagnosis (1) Acute metabolic encephalopathy Is this a current diagnosis for this admission?: Yes (2) Hypersomnolence disorder, acute Is this a current diagnosis for this admission?: Yes (3) Type 1 diabetes mellitus with complication, uncontrolled Is this a current diagnosis for this admission?: Yes (4) Prolonged Q-T interval on ECG Is this a current diagnosis for this admission?: Yes (5) Chest pain of uncertain etiology Is this a current diagnosis for this admission?: Yes (6) Chronic pain disorder Is this a current diagnosis for this admission?: Yes (7) CKD (chronic kidney disease) stage V requiring chronic dialysis Is this a current diagnosis for this admission?: Yes - Time Time Spent with patient: 35 or more minutes Total Critical Time (Minutes): 40 Medications reviewed and adjusted accordingly: Yes Anticipated discharge: Home, Home with Homehealth Within: within 48 hours Disposition: Potential downgrade after dialysis completed. Need to determine neurologic status and hemodynamic improvement. - Inpatient Certification Based on my medical assessment, after consideration of the patient's comorbidities, presenting symptoms, or acuity I expect that the services needed warrant INPATIENT care.: Yes I certify that my determination is in accordance with my understanding of Medicare's requirements for reasonable and necessary INPATIENT services [42 CFR 412.3e].: Yes Medical Necessity: Need Close Monitoring Due to Risk of Patient Decompensation, Need For Continuous Telemetry Monitoring, Need for Neurological Checks Post Hospital Care: D/C [employer] Documentation - Plan Summary Plan Summary: Patient's neurological status has improved and she is more awake. She still remains somnolent at times. She is refused BiPAP while she sleeps. She had noted snoring while sleeping in the emergency room. Has prolonged QT and this may be related to her medications. I did an extensive search to determine which medication would be most likely to cause this. He is on Paxil and Zanaflex and I have discontinued these. The Neurontin minocycline and nifedipine do not appear to affect the QT interval. She has nonspecific chest pain which appears to be noncardiac in nature. Given her extensive complications related to her type 1 diabetes and her renal failure she is at risk for precocious coronary disease. Will need workup. Echocardiogram ordered. She is at risk for significant complications secondary to her noncompliance and I discussion was carried out with her regarding this. Have reduced her basal insulin dose and will continue to supplement based on blood sugars. Also need to adjust medications so that we can pain medications and mood a ltering medications are not contributing to her neurological decline. Will need official sleep study as well. Patient seen in multidisciplinary rounds. Care of in ICU patient is ongoing and dynamic. This note represents a static representation of ongoing care in the last 24 hours. Was given completed and entered via computer are not always reflective of actual time done. Medical power of contracts attorney is: Mother Patient requires ICU care secondary t
--- NOTE | 2019-09-12 18:46 | Progress Note ---
Provider Note Provider Note: I personally reviewed the patient's echocardiogram from today. Left ventricle appears underfilled have held Lasix.
[2019-09-12] MEDS: PATIROMER 8.4 GM SUSP PACKET PO SCH (20:47)
[2019-09-12] MEDS ORDERED: EPOETIN ALFA-EPBX 10,000 UNIT in SYRINGE, DISPOSABLE, 1 EACH IV PRN (21:07)
[2019-09-12] MEDS ORDERED: AMLODIPINE BESYLATE 10 MG TABLET PO ONE (23:30)
[2019-09-13] MEDS: INSULIN LISPRO 100 UNIT/ML 3 ML VIAL SUBCUT SCH ×4 (00:48→18:30)
[2019-09-13] MEDS ORDERED: EPOETIN ALFA-EPBX 10,000 UNIT/ML VIAL (RENAL) IV PRN (05:00)
[2019-09-13] MEDS ORDERED: HEPARIN SOD (PORCINE) 1,000 UNIT/ML 10 ML VIAL IV PRN ×2 (05:00→13:02)
[2019-09-13 05:32] LABS: ABSOLUTE BASOPHILS # (AUTO) 0.1 10^3/uL (0.0-0.2); ABSOLUTE EOSINOPHILS # (AUTO) 0.4 10^3/uL (0.0-0.6); ABSOLUTE MONOCYTES (AUTO) 0.7 10^3/uL (0.1-1.4); HEMOGLOBIN 8.8 g/dL (12.0-15.5); LYMPHOCYTES % (AUTO) 30.9 % (13-45); TOTAL CELLS COUNTED % (AUTO) 100 %
[2019-09-13 05:36] LABS: ABSOLUTE LYMPHOCYTES (AUTO) 2.3 10^3/uL (0.5-4.7); EOSINOPHILS % (AUTO) 4.8 % (0-6); MEAN CORPUSCULAR HEMOGLOBIN 27.9 pg (27.0-33.4); MEAN CORPUSCULAR HGB CONC 32.5 g/dL (32.0-36.0); MEAN CORPUSCULAR VOLUME 86 fl (80-97); MONOCYTES % (AUTO) 9.1 % (3-13); PLATELET COUNT 327 10^3/uL (150-450); RED BLOOD COUNT 3.15 10^6/uL (3.72-5.28); RED CELL DISTRIBUTION WIDTH 16.7 % (11.5-14.0); SEGMENTED NEUTROPHILS % (AUTO) 54.2 % (42-78); WHITE BLOOD COUNT 7.3 10^3/uL (4.0-10.5)
[2019-09-13 05:44] LABS: BLOOD UREA NITROGEN 82 mg/dL (7-20); CALCIUM 7.1 mg/dL (8.4-10.2); CARBON DIOXIDE 23 mmol/L (22-30); CHLORIDE 93 mmol/L (98-107); GLUCOSE 158 mg/dL (75-110); PHOSPHORUS 8.6 mg/dL (2.5-4.5); POTASSIUM 3.9 mmol/L (3.6-5.0)
[2019-09-13 05:50] LABS: ANION GAP 21 (5-19)
[2019-09-13] MEDS: HEPARIN SOD (PORCINE) 5,000 UNIT/ML 1 ML VIAL SUBCUT SCH ×3 (06:13→23:07)
[2019-09-13] MEDS: CALCIUM ACETATE 667 MG CAPSULE PO SCH ×3 (09:26→18:31)
[2019-09-13] MEDS: NIFEDIPINE 30 MG TAB.ER.24 PO SCH ×2 (09:27→23:02)
[2019-09-13] MEDS: GABAPENTIN 100 MG CAPSULE PO SCH (09:27)
[2019-09-13] MEDS: INSULIN GLARGINE,HUM.REC.ANLOG 1,000 UNIT/10 ML VIAL SUBCUT SCH ×2 (10:40→23:05)
[2019-09-13] MEDS ORDERED: CALCIUM GLUCONATE 1000 MG/10 ML INJ IV ONE (13:00)
--- NOTE | 2019-09-13 13:13 | PDOC PROGRESS REPORT ---
Subjective Progress Note for:: 09/13/19 Subjective:: I am seeing the patient on dialysis at this time. She is again very sleepy and lethargic although I was told by our dialysis nurse that the initiation of dialysis she is awake, able to stand up and communicate a little bit better. Her blood pressure is acceptable. She does not verbalizing any complaints otherwise except that she just does not feel good. Reason For Visit: ENCEPHALOPATHY, TOXIC Physical Exam Vital Signs: Temp Pulse Resp BP Pulse Ox 98.3 F 92 14 151/79 H 98 09/13/19 10:00 09/13/19 10:00 09/13/19 11:00 09/13/19 10:00 09/13/19 11:00 Intake & Output 09/12/19 09/13/19 09/14/19 06:59 06:59 06:59 Intake Total 0 711 Output Total 0 0 Balance 0 711 Weight 131.7 kg 127.2 kg Vitals on dialysis: Blood pressure 161/77, heart rate of 100, blood flow rate of 400 mL/min and dialysate flow rate of 800 mL/min. Exam: General appearance: PRESENT: no acute distress, very somnolent with arousable when prompted, well-developed, well-nourished Head exam: PRESENT: atraumatic, normocephalic; face is still swollen Eye exam: PRESENT: conjunctiva pale, PERRLA. ABSENT: scleral icterus Neck exam: ABSENT: JVD Respiratory exam: PRESENT: Diminished breath sounds. ABSENT: crackles, rales, rhonchi, unlabored, wheezes Cardiovascular exam: PRESENT: Regular rate rhythm -+S1, +S2. ABSENT: diastolic murmur, systolic murmur GI/Abdominal exam: PRESENT: normal bowel sounds, soft. ABSENT: guarding, mass, tenderness Extremities exam: Trace bilateral lower extremity edema Neurological exam: PRESENT: Somnolent, arousable, oriented to person, place and time. Skin exam: PRESENT: dry, warm, Results Laboratory Results: 09/13/19 05:17 09/13/19 05:17 09/13/19 09/13/19 05:17 05:17 WBC 7.3 RBC 3.15 L Hgb 8.8 L Hct 27.0 L MCV 86 MCH 27.9 MCHC 32.5 RDW 16.7 H Plt Count 327 Seg Neutrophils % 54.2 Sodium 136.6 L Potassium 3.9 Chloride 93 L Carbon Dioxide 23 Anion Gap 21 H BUN 82 H Creatinine 10.47 H Est GFR ( Amer) 5 L Glucose 158 H Calcium 7.1 L Phosphorus 8.6 H Magnesium 2.4 H 09/11/19 09/11/19 09/11/19 13:12 13:12 16:38 Creatine Kinase 139 H CK-MB (CK-2) 1.28 Troponin I < 0.012 0.012 NT-Pro-B Natriuret Pep 4930 H 09/11/19 09/11/19 09/12/19 20:55 20:55 02:49 Creatine Kinase 145 H 149 H CK-MB (CK-2) 1.20 Troponin I < 0.012 NT-Pro-B Natriuret Pep 09/12/19 09/12/19 09/12/19 02:49 09:27 09:27 Creatine Kinase 153 H CK-MB (CK-2) 1.13 1.16 Troponin I < 0.012 < 0.012 NT-Pro-B Natriuret Pep Impressions: Chest X-Ray 09/11/19 12:30 IMPRESSION: CARDIAC ENLARGEMENT. MILD VASCULAR CONGESTION. Head CT 09/11/19 13:36 IMPRESSION: NORMAL BRAIN CT WITHOUT CONTRAST. EVIDENCE OF ACUTE STROKE: NO. Assessment & Plan - Diagnosis (1) Acute metabolic encephalopathy Is this a current diagnosis for this admission?: Yes Plan: I agree that this could be related to her medications including pain medications and mood stabilizers which were all discontinued by our sheet rock nailer, Dr. Landers . Continue to hold those medications. (2) End stage renal disease on dialysis Is this a current diagnosis for this admission?: Yes Plan: We will do dialysis today for 3 hours, using the patient's right upper arm AV fistula, with 3 calcium and 3 potassium bath, blood flow rate of 400 mL per minute, dialysate flow rate of 800 mL per minute, ultrafiltration 3 to 4 L as tolerated, heparin per protocol and Procrit with 10,000 units during dialysis intravenously. We will adjust treatment accordingly depending on patient's response to hemodialysis treatment. Patient will be monitored throughout dialysis by our dialysis nurse. (3) Volume overload Qualifiers: Hypervolemia type: other Qualified Code(s): E87.79 - Other fluid overload Is this a current diagnosis for this admission?: Yes Plan: Improving with dialysis. (4) Metabolic acidosis Is this a current diagnosis for this admission?: Yes Plan: Resolved with dialysis. (5) Anemia in chronic kidney disease (CKD) Qualifiers: Chronic kidney disease stage: on chronic dialysis Qualified Code(s): N18.6 - End stage renal disease; D63.1 - Anemia in chronic kidney disease; Z99.2 - Dependence on renal dialysis Is this a current diagnosis for this admission?: Yes Plan: Procrit to be given on dialysis. (6) Hypermagnesemia Is this a current diagnosis for this admission?: Yes (7) Chest pain of uncertain etiology Is this a current diagnosis for this admission?: Yes Plan: Appears to be noncardiac. Possibly musculoskeletal. (8) Type 1 diabetes mellitus with complication, uncontrolled Is this a current diagnosis for this admission?: Yes (9) Hyperphosphatemia Is this a current diagnosis for this admission?: Yes Plan: Continue phosphorus binders. Encourage compliance. (10) Hypertension Qualifiers: Is this a current diagnosis for this admission?: Yes Plan: Improving. (11) Hypocalcemia Is this a current diagnosis for this admission?: Yes Plan: We are using high calcium bath as above. We will also give an amp of calcium gluconate intravenously during dialysis. The quiles to resolving this issue is to also control phosphorus level. (12) Prolonged Q-T interval on ECG Is this a current diagnosis for this admission?: Yes (13) Obesity, morbid, BMI 40.0-49.9 Is this a current diagnosis for this admission?: Yes - Time Time with patient: 15-25 minutes
--- NOTE | 2019-09-13 15:09 | PDOC PROGRESS REPORT ---
Subjective Progress Note for:: 09/13/19 Subjective:: 09.13.19: Patient continues to have improvement in her lethargy however has chronic pain complaints. Nausea has improved. Of note her sed rate and CRP have returned and are elevated. We have started a work-up for vasculitis. She needs to undergo dialysis. Her QTC has improved and she has had no dysrhythmias. Patient states she always has pain but just feels general malaise--out of proportion to how she normally feels. She endorses that she takes Tripleptal for seizures. Levels still pending. Endorses fevers and joint pains. 09.12.19:Patient's mental status has improved and she is able to communicate although still is lethargic at times. She was maintained on BiPAP because she had sonorous respirations yesterday. Her blood pressures have been slightly elevated but she is undergoing hemodialysis at this time. She is tolerating this well. She was started on basal insulin and lowest recorded blood sugar was 60 without symptoms. She endorses that her chest pain has improved. It is worse with palpation and deep inspiration. Lengthy discussion with nephrology consult service who relate that the patient has been very noncompliant with her treatment program. Notably her hemoglobin A1c is above 12. Lab work has all been essentially unremarkable and no etiologic cause for her sedation can be determined. Presumptively this appears to be all related to the accumulation of her mood altering medications and narcotic medications. She is on Neurontin for pain. Patient had 5 liters of fluid removed. Her dry weight is listed at 113 kg. Pre- dialysis weight today is 131. She states that she does urinate and is on lasix Q 8h. Reason For Visit: ENCEPHALOPATHY, TOXIC Physical Exam Vital Signs: Temp Pulse Resp BP Pulse Ox 98.2 F 105 H 17 154/77 H 98 09/13/19 06:00 09/12/19 19:00 09/13/19 06:00 09/13/19 02:37 09/12/19 23:54 Intake & Output 09/12/19 09/13/19 09/14/19 06:59 06:59 06:59 Intake Total 0 711 Output Total 0 0 Balance 0 711 Weight 131.7 kg 127.2 kg Physical Exam: Healthy obese appearing 34-year-old female no acute distress. Lethargic but alma usable and communicates well. General appearance: PRESENT: no acute distress, morbidly obese Eye exam: PRESENT: conjunctiva pink, EOMI, PERRLA. ABSENT: conjunctival injection, nystagmus, periorbital swelling, scleral icterus Mouth exam: PRESENT: moist Additional comments: Rotund neck Teeth exam: PRESENT: poor dentation Neck exam: PRESENT: full ROM. ABSENT: carotid bruit, JVD, lymphadenopathy, meningismus, thyromegaly, tracheal deviation Respiratory exam: PRESENT: chest wall tenderness, clear to auscultation freddy, unl abored. ABSENT: accessory muscle use, retraction, stridor, tachypnea, wheezes Cardiovascular exam: PRESENT: RRR, +S1, +S2. ABSENT: rubs, systolic murmur Pulses: PRESENT: +1 pedal pulses bilateral Vascular exam: PRESENT: normal capillary refill GI/Abdominal exam: PRESENT: soft. ABSENT: ascites, distended, firm, guarding, mass, Mckinnon's sign, normal bowel sounds, rebound, rigid, tenderness Rectal exam: PRESENT: deferred Extremities exam: PRESENT: pedal edema, other - No joint erythema, warmth or swelling. ABSENT: joint swelling, tenderness Musculoskeletal exam: PRESENT: deformity, dislocation, normal inspection Neurological exam: PRESENT: awake, oriented to person, oriented to place, orien rigo to time, oriented to situation, CN II-XII grossly intact. ABSENT: motor sensory deficit, aphasic Additional comments: Lethargic. Examined during morning hours. Psychiatric exam: PRESENT: flat affect Focused psych exam: ABSENT: psychomotor agitation, restlessness Skin exam: PRESENT: intact. ABSENT: erythema, mottled, pallor, petechiae, rash, urticaria, vesicles Results Laboratory Results: 09/13/19 05:17 09/13/19 05:17 09/13/19 09/13/19 05:17 05:17 WBC 7.3 RBC 3.15 L Hgb 8.8 L Hct 27.0 L MCV 86 MCH 27.9 MCHC 32.5 RDW 16.7 H Plt Count 327 Seg Neutrophils % 54.2 Sodium 136.6 L Potassium 3.9 Chloride 93 L Carbon Dioxide 23 Anion Gap 21 H BUN 82 H Creatinine 10.47 H Est GFR ( Amer) 5 L Glucose 158 H Calcium 7.1 L Phosphorus 8.6 H Magnesium 2.4 H 09/11/19 09/11/1909/11/19 13:12 13:12 16:38 Creatine Kinase 139 H CK-MB (CK-2) 1.28 Troponin I < 0.012 0.012 NT-Pro-B Natriuret Pep 4930 H 09/11/19 09/11/19 09/12/19 20:55 20:55 02:49 Creatine Kinase 145 H 149 H CK-MB (CK-2) 1.20 Troponin I < 0.012 NT-Pro-B Natriuret Pep 09/12/19 09/12/19 09/12/19 02:49 09:27 09:27 Creatine Kinase 153 H CK-MB (CK-2) 1.13 1.16 Troponin I < 0.012 < 0.012 NT-Pro-B Natriuret Pep Impressions: Chest X-Ray 09/11/19 12:30 IMPRESSION: CARDIAC ENLARGEMENT. MILD VASCULAR CONGESTION. Head CT 09/11/19 13:36 IMPRESSION: NORMAL BRAIN CT WITHOUT CONTRAST. EVIDENCE OF ACUTE STROKE: NO. Assessment & Plan - Diagnosis (1) Acute metabolic encephalopathy Is this a current diagnosis for this admission?: Yes (2) Hypersomnolence disorder, acute Is this a current diagnosis for this admission?: Yes (3) Type 1 diabetes mellitus with complication, uncontrolled Is this a current diagnosis for this admission?: Yes (4) Prolonged Q-T interval on ECG Is this a current diagnosis for this admission?: Yes (5) Chest pain of uncertain etiology Is this a current diagnosis for this admission?: Yes (6) Chronic pain disorder Is this a current diagnosis for this admission?: Yes (7) CKD (chronic kidney disease) stage V requiring chronic dialysis Is this a current diagnosis for this admission?: Yes (8) Elevated erythrocyte sedimentation rate Is this a current diagnosis for this admission?: Yes - Time Time Spent with patient: 35 or more minutes Total Critical Time (Minutes): 0 - 86447 Medications reviewed and adjusted accordingly: Yes - Inpatient Certification Based on my medical assessment, after consideration of the patient's comorbidities, presenting symptoms, or acuity I expect that the services needed warrant INPATIENT care.: Yes I certify that my determination is in accordance with my understanding of Medicare's requirements for reasonable and necessary INPATIENT services [42 CFR 412.3e].: Yes Medical Necessity: Need Close Monitoring Due to Risk of Patient Decompensation, Need for Neurological Checks, Risk of Complication if Not Cared For in Hospital Post Hospital Care: D/C Aquatics Assistant Department Head Documentation - Plan Summary Plan Summary: 09.13.19: Patient continues to have varying degrees of lethargy and chronic pain. Her pain appears more than her normal baseline however we have held some of her sedating type medications and narcotics. Her sed rate and CRP are both elevated which raises the concern about a generalized inflammatory condition. I am concerned that she has an autoimmune disease and have ordered lab work including lab work for vasculitis and lupus. Her QT C has improved she has had no arrhythmias or hemodynamic instability. I have downgraded her to regular general medical floor status. Dr. Singleton accepted the patient. Be in a significant quandary if the patient has a vasculitis syndrome given her diabetes and hyperglycemia--most likely need steroid therapy. Have increased her Lantus to cover basal insulin coverage needs. Also evaluated the patient in dialysis and she was tolerating this well. Discussed her diabetes care. She does not want to be considered for insulin pump (would most likely not be a good candidate) because of her autistic son. Would suggest sleep study and should be on BiPAP at night especially if she is sonorous. Follow-up items include: 1. Trileptal levels (question need) 2. Autoimmune workup 3. Qtc 4. Have discontinued Paxil. 5. Medication adjustment 09.12.19: Patient's neurological status has improved and she is more awake. She still remains somnolent at times. She is refused BiPAP while she sleeps. She had noted snoring while sleeping in the emergency room. Has prolonged QT and this may be related to her medications. I did an extensive search to determine which medication would be most likely to cause this. He is on Paxil and Zanaflex and I have discontinued these. The Neurontin minocycline and nifedipine do not appear to affect the QT interval. She has nonspecific chest pain which appears to be noncardiac in nature. Given her extensive complications related to her type 1 diabetes and her renal failure she is at risk for precocious coronary disease. Will need workup. Echocardiogram ordered. She is at risk for significant complications secondary to her noncompliance and I discussion was carried out with her regarding this. Have reduced her basal insulin dose and will continue to supplement based on blood sugars. Also need to adjust medications so that we can pain medications and mood altering medications are not contributing to her neurological decline. Will need official sleep study as well. Patient seen in multidisciplinary rounds. Care of in ICU patient is ongoing and dynamic. This note represents a static representation of ongoing care in the last 24 hours. Was given completed and entered via computer are not always reflective of actual time done. Medical power of employment attorney is: Patient no longer requires ICU care and has been down-graded to telemetry secondary to Qtc
[2019-09-13] MEDS: PATIROMER 8.4 GM SUSP PACKET PO SCH (18:41)
--- NOTE | 2019-09-13 18:59 | EKG REPORT ---
SEVERITY:- ABNORMAL ECG - SINUS RHYTHM FIRST DEGREE AV BLOCK BORDERLINE LEFT AXIS DEVIATION NONSPECIFIC T ABNORMALITIES, LATERAL LEADS PROLONGED QT INTERVAL : Confirmed by: Beatriz Leyva MD 13-Sep-2019 18:58:46
--- NOTE | 2019-09-13 19:50 | XCELERA REPORT ---
[address] [address] Transthoracic Echocardiogram Report Name: ERICH GOODMAN Age: 34 yrs Gender: Female : 1985 Patient Status: Inpatient Patient Location: ICU^608^A Study Date: 09/12/2019 02:55 PM Height: 67 in Weight: 290 lb BSA: 2.4 m2 Procedure: A two-dimensional transthoracic echocardiogram with color flow and Doppler was performed. Study Quality: Technically suboptimal. Images were not obtained from all of the standard acoustic windows due to the limited scope of the study. Reason For Study: chest pain History: chest pain. Ordering Physician: DOC FAM Performed By: Corinna Mckeon Interpretation Summary Study Quality: Technically suboptimal. Images were not obtained from all of the standard acoustic windows due to the limited scope of the study. The left ventricle is grossly normal size. There is mild concentric left ventricular hypertrophy. No True apical 2 chamber views obtained.Hence cannot comment on the apical anterior , the basal anterior, the basal inferior and apical inferior rubio.Poor endocardial visualisation .Probably The mid anterior , the mid inferior and the rest of the LV rubio contract normally. .Normal LVEF is normal and is greater than 55% in the limited views. LV diastolic function not assessed. The right ventricle is not well visualized secondary to technical limitations Right atrium not well visualized secondary to technical limitations Probably normal LA size. The mitral valve is not well visualized. There is no mitral valve stenosis. There is a trace amount of mitral regurgitation There is mild aortic stenosis There is a peak gradient of 22.1 mm of Hg. No aortic regurgitation is present. The tricuspid valve is not well visualized secondary to technical limitations Poor doppler interogation.TR jet and RVSP estimation cannot be ,made. The pulmonic valve is not well visualized. The aortic root is not well visualized. There is no pericardial effusion. MMode/2D Measurements & Calculations RVDd: 2.3 cm LVIDd: 4.8 cm FS: 36.7 % Ao root diam: 2.3 cm IVSd: 1.2 cm LVIDs: 3.1 cm EDV(Teich): 110.1 ml Ao root area: 4.1 cm2 LVPWd: 1.2 cm ESV(Teich): 37.0 ml LA dimension: 3.5 cm EF(Teich): 66.4 % Doppler Measurements & Calculations MV E max niranjan: MV P1/2t max niranjan: Ao V2 max: LV V1 max P.3 cm/sec 163.7 cm/sec 238.9 cm/sec 9.1 mmHg MV P1/2t: 48.5 msec Ao max PG: LV V1 max: MVA(P1/2t): 4.5 cm2 22.8 mmHg 150.5 cm/sec MV dec slope: 989.3 cm/sec2 MV dec time: 0.14 sec PI end-d niranjan: MV P1/2t-pr_phl: 257.3 cm/sec 48.5 msec Left Ventricle The left ventricle is grossly normal size. There is mild concentric left ventricular hypertrophy. No True apical 2 chamber views obtained.Hence cannot comment on the apical anterior , the basal anterior, the basal inferior and apical inferior rubio.Poor endocardial visualisation .Probably The mid anterior , the mid inferior and the rest of the LV rubio contract normally. .Normal LVEF is normal and is greater than 55% in the limited views. LV diastolic function not assessed. Right Ventricle The right ventricle is not well visualized secondary to technical limitations. Atria Right atrium not well visualized secondary to technical limitations. Probably normal LA size. Mitral Valve The mitral valve is not well visualized. There is no mitral valve stenosis. There is a trace amount of mitral regurgitation. Aortic Valve There is mild aortic stenosis. There is a peak gradient of 22.1 mm of Hg. No aortic regurgitation is present. Tricuspid Valve The tricuspid valve is not well visualized secondary to technical limitations. Poor doppler interogation.TR jet and RVSP estimation cannot be ,made. Pulmonic Valve The pulmonic valve is not well visualized. Great Vessels The aortic root is not well visualized. Effusions There is no pericardial effusion. : DOC FAM, Beatriz
[2019-09-13] MEDS ORDERED: DIPHENHYDRAMINE HCL 50 MG/ML VIAL IV ONE (22:30)
[2019-09-13] MEDS ORDERED: INSULIN LISPRO 100 UNIT/ML 3 ML VIAL ONE (22:52)
[2019-09-14] MEDS ORDERED: PROMETHAZINE HCL INJ 25 MG/1 ML VIAL IV ONE (00:15)
[2019-09-14] MEDS ORDERED: INSULIN LISPRO 100 UNIT/ML 3 ML VIAL SUBCUT ONE (00:30)
[2019-09-14] MEDS: HEPARIN SOD (PORCINE) 5,000 UNIT/ML 1 ML VIAL SUBCUT SCH ×3 (06:10→22:12)
[2019-09-14] MEDS: INSULIN LISPRO 100 UNIT/ML 3 ML VIAL SUBCUT SCH ×4 (08:02→22:22)
[2019-09-14 08:06] LABS: ABSOLUTE BASOPHILS # (AUTO) 0.1 10^3/uL (0.0-0.2); ABSOLUTE EOSINOPHILS # (AUTO) 0.4 10^3/uL (0.0-0.6); ABSOLUTE LYMPHOCYTES (AUTO) 1.7 10^3/uL (0.5-4.7); ABSOLUTE MONOCYTES (AUTO) 0.7 10^3/uL (0.1-1.4); ABSOLUTE NEUT (AUTO) 4.5 10^3/uL (1.7-8.2); BASOPHILS % (AUTO) 0.8 % (0-2); HEMATOCRIT 28.2 % (36.0-47.0); HEMOGLOBIN 9.1 g/dL (12.0-15.5); LYMPHOCYTES % (AUTO) 23.2 % (13-45); MEAN CORPUSCULAR HEMOGLOBIN 27.8 pg (27.0-33.4); MEAN CORPUSCULAR HGB CONC 32.4 g/dL (32.0-36.0); MEAN CORPUSCULAR VOLUME 86 fl (80-97); MONOCYTES % (AUTO) 9.1 % (3-13); PLATELET COUNT 305 10^3/uL (150-450); RED BLOOD COUNT 3.28 10^6/uL (3.72-5.28); RED CELL DISTRIBUTION WIDTH 17.1 % (11.5-14.0); SEGMENTED NEUTROPHILS % (AUTO) 61.9 % (42-78); TOTAL CELLS COUNTED % (AUTO) 100 %; WHITE BLOOD COUNT 7.3 10^3/uL (4.0-10.5)
[2019-09-14 08:58] LABS: ANION GAP 16 (5-19); BLOOD UREA NITROGEN 59 mg/dL (7-20); CALCIUM 7.8 mg/dL (8.4-10.2); CARBON DIOXIDE 26 mmol/L (22-30); CHLORIDE 93 mmol/L (98-107); GLUCOSE 322 mg/dL (75-110); PHOSPHORUS 6.4 mg/dL (2.5-4.5); POTASSIUM 4.6 mmol/L (3.6-5.0)
[2019-09-14] MEDS: NIFEDIPINE 30 MG TAB.ER.24 PO SCH ×2 (09:16→22:12)
[2019-09-14] MEDS: INSULIN GLARGINE,HUM.REC.ANLOG 1,000 UNIT/10 ML VIAL SUBCUT SCH ×2 (09:16→22:23)
[2019-09-14] MEDS: GABAPENTIN 100 MG CAPSULE PO SCH ×2 (09:24→22:12)
[2019-09-14] MEDS ORDERED: PROMETHAZINE HCL INJ 25 MG/1 ML VIAL IV PRN (12:22)
--- NOTE | 2019-09-14 12:22 | PDOC PROGRESS REPORT ---
Subjective Progress Note for:: 09/14/19 Subjective:: 09.14.19: The patient continues to endorse generalized malaise. She continues to refuse certain medications such as her calcium. She remains sedentary but does get out of bed to go to the bathroom. Her Trileptal levels are acceptable and certainly not elevated. Autoimmune work-up is still pending and ongoing. Questionable daily dialysis. 09.13.19: Patient continues to have improvement in her lethargy however has chronic pain complaints. Nausea has improved. Of note her sed rate and CRP have returned and are elevated. We have started a work-up for vasculitis. She needs to undergo dialysis. Her QTC has improved and she has had no dysrhythmias. Patient states she always has pain but just feels general malaise--out of proportion to how she normally feels. She endorses that she takes Tripleptal for seizures. Levels still pending. Endorses fevers and joint pains. 09.12.19:Patient's mental status has improved and she is able to communicate although still is lethargic at times. She was maintained on BiPAP because she had sonorous respirations yesterday. Her blood pressures have been slightly sharron vated but she is undergoing hemodialysis at this time. She is tolerating this well. She was started on basal insulin and lowest recorded blood sugar was 60 without symptoms. She endorses that her chest pain has improved. It is worse with palpation and deep inspiration. Lengthy discussion with nephrology consult service who relate that the patient has been very noncompliant with her treatment program. Notably her hemoglobin A1c is above 12. Lab work has all been essentially unremarkable and no etiologic cause for her sedation can be determined. Presumptively this appears to be all related to the accumulation of her mood altering medications and narcotic medications. She is on Neurontin for pain. Patient had 5 liters of fluid removed. Her dry weight is listed at 113 kg. Pre- dialysis weight today is 131. She states that she does urinate and is on lasix Q8h. Reason For Visit: ENCEPHALOPATHY, TOXIC Physical Exam Vital Signs: Temp Pulse Resp BP Pulse Ox 98.3 F 92 14 151/79 H 98 09/13/19 10:00 09/13/19 19:00 09/13/19 11:00 09/13/19 10:00 09/13/19 11:00 Intake & Output 09/13/19 09/14/19 09/15/19 06:59 06:59 06:59 Intake Total 711 711 Output Total 0 4600 Balance 711 -3887 Weight 127.2 kg 123.8 kg Physical Exam: Dur appearing nontoxic chronically ill-appearing 34-year-old female no active distress awake alert oriented x3 General appearance: PRESENT: no acute distress, cooperative, morbidly obese Head exam: PRESENT: atraumatic, normocephalic Eye exam: PRESENT: conjunctiva pink, EOMI, PERRLA. ABSENT: conjunctival injection, nystagmus, scleral icterus Mouth exam: PRESENT: moist, neck supple, tongue midline Additional comments: large rotund neck Teeth exam: PRESENT: poor dentation Neck exam: PRESENT: full ROM. ABSENT: carotid bruit, JVD, lymphadenopathy, thyromegaly Respiratory exam: PRESENT: clear to auscultation freddy, unlabored. ABSENT: accessory muscle use, tachypnea, wheezes Cardiovascular exam: PRESENT: RRR, +S1, +S2 Pulses: PRESENT: normal carotid pulses, +1 pedal pulses bilateral GI/Abdominal exam: PRESENT: normal bowel sounds, soft. ABSENT: ascites, diminished bowel sounds, distended, firm, guarding, mass, Mckinnon's sign, rebound, rigid Extremities exam: PRESENT: pedal edema. ABSENT: joint swelling Musculoskeletal exam: PRESENT: normal inspection, tenderness - mild at ankle joint. None at knee or wrist joints. ABSENT: deformity, dislocation Neurological exam: PRESENT: awake, oriented to person, oriented to place, oriented to time, oriented to situation, CN II-XII grossly intact. ABSENT: motor sensory deficit, aphasic Psychiatric exam: PRESENT: flat affect. ABSENT: agitated, anxious Focused psych exam: ABSENT: psychomotor agitation, restlessness Skin exam: PRESENT: normal color. ABSENT: abrasion, mottled, petechiae, urticaria, vesicles Results Laboratory Results: 09/13/19 05:17 09/13/19 05:17 09/11/19 09/11/19 09/11/19 13:12 13:12 16:38 Creatine Kinase 139 H CK-MB (CK-2) 1.28 Troponin I < 0.012 0.012 NT-Pro-B Natriuret Pep 4930 H 09/11/19 09/11/19 09/12/19 20:55 20:55 02:49 Creatine Kinase 145 H 149 H CK-MB (CK-2) 1.20 Troponin I < 0.012 NT-Pro-B Natriuret Pep 09/12/19 09/12/19 09/12/19 02:49 09:27 09:27 Creatine Kinase 153 H CK-MB (CK-2) 1.13 1.16 Troponin I < 0.012 < 0.012 NT-Pro-B Natriuret Pep Impressions: Chest X-Ray 09/11/19 12:30 IMPRESSION: CARDIAC ENLARGEMENT. MILD VASCULAR CONGESTION. Head CT 09/11/19 13:36 IMPRESSION: NORMAL BRAIN CT WITHOUT CONTRAST. EVIDENCE OF ACUTE STROKE: NO. Assessment & Plan - Diagnosis (1) Acute metabolic encephalopathy Is this a current diagnosis for this admission?: Yes (2) Hypersomnolence disorder, acute Is this a current diagnosis for this admission?: Yes (3) Type 1 diabetes mellitus with complication, uncontrolled Is this a current diagnosis for this admission?: Yes (4) Prolonged Q-T interval on ECG Is this a current diagnosis for this admission?: Yes (5) Chest pain of uncertain etiology Is this a current diagnosis for this admission?: Yes (6) Chronic pain disorder Is this a current diagnosis for this admission?: Yes (7) CKD (chronic kidney disease) stage V requiring chronic dialysis Is this a current diagnosis for this admission?: Yes (8) Elevated erythrocyte sedimentation rate Is this a current diagnosis for this admission?: Yes - Time Time Spent with patient: 25-34 minutes Total Critical Time (Minutes): 30 - 61697 Medications reviewed and adjusted accordingly: Yes Anticipated discharge: Home Within: within 24 hours - Inpatient Certification Medical Necessity: Need Close Monitoring Due to Risk of Patient Decompensation, Risk of Complication if Not Cared For in Hospital - Plan Summary Plan Summary: 09.14.19: Has been improvement in overall alertness. Patient seems depressed and is u nwilling to participate in her care at times. She does complain of generalized malaise cannot categorize or specifically of any distinct improvement symptoms. Her QTC continues to improve and is now at 511. Examination of her joints show no swelling erythema. 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 We are awaiting the autoimmune work-up. Nephrology wanted her to consider daily dialysis and she remains in the hospital for this to be accomplished. Furthermore we are awaiting her autoimmune work-up completion. She has been domiciled in the ICU, albeit in a down grade, and has been accepted by Dr. Singleton. Communicated our concerns to her primary team and they will follow-up. Patient does complain of "jitteriness"--we have discontinued her Paxil and will need to be prudent to watch for serotonin withdrawal. At this point there is no clonus or tremors. Supportive care and follow-up will be done by the primary medical team. 09.13.19: Patient continues to have varying degrees of lethargy and chronic pain. Her pain appears more than her normal baseline however we have held some of her sedating type medications and narcotics. Her sed rate and CRP are both elevated which raises the concern about a generalized inflammatory condition. I am concerned that she has an autoimmune disease and have ordered lab work including lab work for vasculitis and lupus. Her QT C has improved she has had no arrhythmias or hemodynamic instability. I have downgraded her to regular general medical floor status. Dr. Singleton accepted the patient. Be in a significant quandary if the patient has a vasculitis syndrome given her diabetes and hyperglycemia--most likely need steroid therapy. Have increased her Lantus to cover basal insulin coverage needs. Also evaluated the patient in dialysis and she was tolerating this well. Discussed her diabetes care. She does not want to be considered for insulin pump (would most likely not be a good candidate) because of her autistic son. Would suggest sleep study and should be on BiPAP at night especially if she is sonorous. Follow-up items include: 1. Trileptal levels (question need) 2. Autoimmune workup 3. Qtc 4. Have discontinued Paxil. 5. Medication adjustment 09.12.19: Patient's neurological status has improved and she is more awake. She still remains somnolent at times. She is refused BiPAP while she sleeps. She had noted snoring while sleeping in the emergency room. Has prolonged QT and this may be related to her medications. I did an extensive search to determine which medication would be most likely to cause this. He is on Paxil and Zanaflex and I have discontinued these. The Neurontin minocycline and nifedipine do not appear to affect the QT interval. She has nonspecific chest pain which appears to be noncardiac in nature. Given her extensive complications related to her type 1 diabetes and her renal failure she is at risk for precocious coronary disease. Will need workup. Echocardiogram ordered. She is at risk for significant complications secondary to her noncompliance and I discussion was carried out with her regarding this. Have reduced her basal insulin dose and will continue to supplement based on blood sugars. Also need to adjust medications so that we can pain medications and mood altering medications are not contributing to her neurological decline. Will need official sleep study as well. Patient seen in multidisciplinary rounds. Care of in ICU patient is ongoing and dynamic. This note represents a static representation of ongoing care in the last 24 hours. Was given completed and entered via computer are not always reflective of actual time done. Medical power of mining engineer is: Patient no longer requires ICU care and has been down-graded to telemetry secondary to Qtc
[2019-09-14] MEDS: CALCIUM ACETATE 667 MG CAPSULE PO SCH ×2 (18:03→18:15)
[2019-09-14] MEDS: METHOCARBAMOL 500 MG TABLET PO SCH (18:03)
[2019-09-14] MEDS: PATIROMER 8.4 GM SUSP PACKET PO SCH (18:16)
--- NOTE | 2019-09-14 20:17 | EKG REPORT ---
SEVERITY:- ABNORMAL ECG - SINUS RHYTHM BORDERLINE LEFT AXIS DEVIATION NONSPECIFIC T ABNORMALITIES, LATERAL LEADS PROLONGED QT INTERVAL : Confirmed by: Beatriz Leyva MD 14-Sep-2019 20:16:33
[2019-09-14] MEDS ORDERED: EPOETIN ALFA-EPBX 10,000 UNIT in SYRINGE, DISPOSABLE, 1 EACH IV PRN (21:02)
[2019-09-14] MEDS ORDERED: EPOETIN ALFA-EPBX 10,000 UNIT/ML VIAL (RENAL) IV PRN (21:18)
[2019-09-15 04:32] LABS: HEMOGLOBIN 9.3 g/dL (12.0-15.5); MEAN CORPUSCULAR HEMOGLOBIN 27.7 pg (27.0-33.4); MEAN CORPUSCULAR HGB CONC 32.1 g/dL (32.0-36.0); MEAN CORPUSCULAR VOLUME 86 fl (80-97); PLATELET COUNT 343 10^3/uL (150-450); RED BLOOD COUNT 3.36 10^6/uL (3.72-5.28); RED CELL DISTRIBUTION WIDTH 16.7 % (11.5-14.0); WHITE BLOOD COUNT 8.7 10^3/uL (4.0-10.5)
[2019-09-15 04:47] LABS: ANION GAP 19 (5-19); BLOOD UREA NITROGEN 73 mg/dL (7-20); CALCIUM 7.4 mg/dL (8.4-10.2); CARBON DIOXIDE 23 mmol/L (22-30); CHLORIDE 95 mmol/L (98-107); GLUCOSE 159 mg/dL (75-110); POTASSIUM 4.4 mmol/L (3.6-5.0)
[2019-09-15] MEDS ORDERED: HEPARIN SOD (PORCINE) 1,000 UNIT/ML 10 ML VIAL IV PRN (05:00)
[2019-09-15] MEDS: METHOCARBAMOL 500 MG TABLET PO SCH ×2 (06:37→17:47)
[2019-09-15] MEDS: HEPARIN SOD (PORCINE) 5,000 UNIT/ML 1 ML VIAL SUBCUT SCH ×3 (06:37→21:54)
[2019-09-15] MEDS ORDERED: OXYCODONE-ACETAMINOPHEN 5-325 MG TABLET ONE (07:51)
[2019-09-15] MEDS: OXYCODONE-ACETAMINOPHEN 5-325 MG TABLET PO PRN ×3 (07:52→20:13)
--- NOTE | 2019-09-15 09:31 | PDOC PROGRESS REPORT ---
Subjective Progress Note for:: 09/15/19 Subjective:: I am seeing the patient during dialysis this morning. Surprisingly she has gained 5 kg even though her intake as recorded is not that much. She still states that she does not feel good and she has a pain in her sacral area. She denies any history of falls. She is a little bit more awake and communicating and answering questions this morning. Her blood pressure is slightly elevated. She is comfortable without oxygen. So far she is tolerating dialysis. Reason For Visit: ENCEPHALOPATHY, TOXIC Physical Exam Vital Signs: Temp Pulse Resp BP Pulse Ox 98.1 F 97 10 L 185/78 H 100 09/15/19 08:00 09/15/19 08:00 09/15/19 08:00 09/15/19 08:00 09/15/19 08:00 Intake & Output 09/14/19 09/15/19 09/16/19 06:59 06:59 06:59 Intake Total 711 250 Output Total 4600 Balance -3889 250 Weight 123.8 kg 126.1 kg Vitals during dialysis: Blood pressure 172/96, pulse rate of 109, blood flow rate of 450 mL/min and dialysate flow rate of 800 mL/min. Exam: General appearance: PRESENT: no acute distress, cooperative, well-developed, well-nourished Head exam: PRESENT: atraumatic, normocephalic Eye exam: PRESENT: conjunctiva slightly pale, PERRLA. Still with facial swelling ABSENT: scleral icterus Neck exam: ABSENT: JVD Respiratory exam: PRESENT: Diminished breath sounds. ABSENT: crackles, rales, rhonchi, unlabored, wheezes Cardiovascular exam: PRESENT: Regular rate rhythm -+S1, +S2. ABSENT: diastolic murmur, systolic murmur GI/Abdominal exam: PRESENT: normal bowel sounds, soft. ABSENT: guarding, mass, tenderness Extremities exam: ABSENT: No edema Neurological exam: PRESENT: alert, awake, oriented to person, place and time. Skin exam: PRESENT: dry, warm, Results Laboratory Results: 09/15/19 04:08 09/15/19 04:08 09/15/19 09/15/19 04:08 04:08 WBC 8.7 RBC 3.36 L Hgb 9.3 L Hct 29.0 L MCV 86 MCH 27.7 MCHC 32.1 RDW 16.7 H Plt Count 343 Sodium 136.7 L Potassium 4.4 Chloride 95 L Carbon Dioxide 23 Anion Gap 19 BUN 73 H Creatinine 11.03 H Est GFR ( Amer) 5 L Glucose 159 H Calcium 7.4 L 09/11/19 09/11/19 09/11/19 13:12 13:12 16:38 Creatine Kinase 139 H CK-MB (CK-2) 1.28 Troponin I < 0.012 0.012 NT-Pro-B Natriuret Pep 4930 H 09/11/19 09/11/19 09/12/19 20:55 20:55 02:49 Creatine Kinase 145 H 149 H CK-MB (CK-2) 1.20 Troponin I < 0.012 NT-Pro-B Natriuret Pep 09/12/19 09/12/19 09/12/19 02:49 09:27 09:27 Creatine Kinase 153 H CK-MB (CK-2) 1.13 1.16 Troponin I < 0.012 < 0.012 NT-Pro-B Natriuret Pep Impressions: Chest X-Ray 09/11/19 12:30 IMPRESSION: CARDIAC ENLARGEMENT. MILD VASCULAR CONGESTION. Head CT 09/11/19 13:36 IMPRESSION: NORMAL BRAIN CT WITHOUT CONTRAST. EVIDENCE OF ACUTE STROKE: NO. Assessment & Plan - Diagnosis (1) End stage renal disease on dialysis Is this a current diagnosis for this admission?: Yes Plan: We will do dialysis today for 4 hours, using the patient's AV fistula, with 3 calcium with 2 potassium bath, blood flow rate of 450 mL per minute, dialysate flow rate of 800 mL per minute, ultrafiltration 4-5 L as tolerated, low-dose heparin and Procrit with 10,000 units during dialysis intravenously. Patient will be monitored throughout dialysis treatment and ultrafiltration adjusted according to her response. Due to her questionable weight gain without much intake as recorded, will check cortisol level this morning. (2) Acute metabolic encephalopathy Is this a current diagnosis for this admission?: Yes Plan: Improving. (3) Volume overload Qualifiers: Hypervolemia type: other Qualified Code(s): E87.79 - Other fluid overload Is this a current diagnosis for this admission?: Yes Plan: Patient has significant intradialytic weight gain. We will get 4 to 5 L of ultrafiltration today going through the weekend without dialysis. (4) Metabolic acidosis Is this a current diagnosis for this admission?: Yes Plan: Resolved with dialysis. (5) Anemia in chronic kidney disease (CKD) Qualifiers: Chronic kidney disease stage: on chronic dialysis Qualified Code(s): N18.6 - End stage renal disease; D63.1 - Anemia in chronic kidney disease; Z99.2 - Dependence on renal dialysis Is this a current diagnosis for this admission?: Yes Plan: Procrit to be given on dialysis. (6) Hypermagnesemia Is this a current diagnosis for this admission?: Yes Plan: Improving. (7) Chest pain of uncertain etiology Is this a current diagnosis for this admission?: Yes Plan: Improving. (8) Type 1 diabetes mellitus with complication, uncontrolled Is this a current diagnosis for this admission?: Yes (9) Hyperphosphatemia Is this a current diagnosis for this admission?: Yes Plan: Improving with dialysis however patient is not consistently taking her calcium acetate phosphate binders. Will encourage compliance. (10) Hypertension Qualifiers: Is this a current diagnosis for this admission?: Yes Plan: Improving. (11) Hypocalcemia Is this a current diagnosis for this admission?: Yes Plan: Slowly improving. We are using high calcium bath as above. The quiles to resolving this issue is to also control phosphorus level. (12) Prolonged Q-T interval on ECG Is this a current diagnosis for this admission?: Yes Plan: Improved. (13) Obesity, morbid, BMI 40.0-49.9 Is this a current diagnosis for this admission?: Yes - Time Time with patient: 15-25 minutes
[2019-09-15] MEDS: INSULIN LISPRO 100 UNIT/ML 3 ML VIAL SUBCUT SCH ×4 (13:29→21:53)
[2019-09-15] MEDS: CALCIUM ACETATE 667 MG CAPSULE PO SCH ×2 (13:52→17:47)
[2019-09-15] MEDS: NIFEDIPINE 30 MG TAB.ER.24 PO SCH ×2 (13:52→21:53)
[2019-09-15] MEDS: INSULIN GLARGINE,HUM.REC.ANLOG 1,000 UNIT/10 ML VIAL SUBCUT SCH ×2 (14:04→21:53)
[2019-09-15 14:19] LABS: ANTINUCLEAR ANTIBODIES Negative (Negative)
[2019-09-15] MEDS: PATIROMER 8.4 GM SUSP PACKET PO SCH (17:20)
--- NOTE | 2019-09-15 19:57 | PDOC PROGRESS REPORT ---
Subjective Progress Note for:: 09/15/19 Subjective:: Patient was admitted for the last few days in ICU, he was managed by the linemarker, just downgraded to medical floor. She presented with her usual volume overload problem. She complained of back pain, she had hemodialysis today Reason For Visit: ENCEPHALOPATHY, TOXIC Physical Exam Vital Signs: Temp Pulse Resp BP Pulse Ox 98.1 F 97 10 L 185/78 H 100 09/15/19 08:00 09/15/19 08:00 09/15/19 08:00 09/15/19 08:00 09/15/19 08:00 Intake & Output 09/14/19 09/15/19 09/16/19 06:59 06:59 06:59 Intake Total 711 250 Output Total 4600 5000 Balance -3889 250 -5000 Weight 123.8 kg 126.1 kg 126.1 kg General appearance: PRESENT: no acute distress Eye exam: PRESENT: PERRLA Respiratory exam: PRESENT: clear to auscultation freddy Cardiovascular exam: PRESENT: +S1, +S2 GI/Abdominal exam: PRESENT: soft Neurological exam: PRESENT: alert Results Laboratory Results: 09/15/19 04:08 09/15/19 04:08 09/15/19 09/15/19 04:08 04:08 WBC 8.7 RBC 3.36 L Hgb 9.3 L Hct 29.0 L MCV 86 MCH 27.7 MCHC 32.1 RDW 16.7 H Plt Count 343 Sodium 136.7 L Potassium 4.4 Chloride 95 L Carbon Dioxide 23 Anion Gap 19 BUN 73 H Creatinine 11.03 H Est GFR ( Amer) 5 L Glucose 159 H Calcium 7.4 L 09/11/19 09/11/19 09/11/19 13:12 13:12 16:38 Creatine Kinase 139 H CK-MB (CK-2) 1.28 Troponin I < 0.012 0.012 NT-Pro-B Natriuret Pep 4930 H 09/11/19 09/11/19 09/12/19 20:55 20:55 02:49 Creatine Kinase 145 H 149 H CK-MB (CK-2) 1.20 Troponin I < 0.012 NT-Pro-B Natriuret Pep 09/12/19 09/12/19 09/12/19 02:49 09:27 09:27 Creatine Kinase 153 H CK-MB (CK-2) 1.13 1.16 Troponin I < 0.012 < 0.012 NT-Pro-B Natriuret Pep Impressions: Chest X-Ray 09/11/19 12:30 IMPRESSION: CARDIAC ENLARGEMENT. MILD VASCULAR CONGESTION. Head CT 09/11/19 13:36 IMPRESSION: NORMAL BRAIN CT WITHOUT CONTRAST. EVIDENCE OF ACUTE STROKE: NO. Assessment & Plan - Diagnosis (1) Metabolic encephalopathy Is this a current diagnosis for this admission?: Yes Plan: Patient will longer stuporous, alert oriented (2) Type 1 diabetes mellitus with unspecified complications Is this a current diagnosis for this admission?: Yes (3) Fluid overload, unspecified Qualifiers: Hypervolemia type: other Qualified Code(s): E87.79 - Other fluid overload Is this a current diagnosis for this admission?: Yes (4) End-stage renal disease (ESRD) Is this a current diagnosis for this admission?: Yes Plan: Followed by nephrology - Time Time Spent with patient: 25-34 minutes Level of Care: TELE
[2019-09-15] MEDS ORDERED: INSULIN GLARGINE,HUM.REC.ANLOG 1,000 UNIT/10 ML VIAL (PYX) SUBCUT ONE (21:45)
[2019-09-15] MEDS: GABAPENTIN 100 MG CAPSULE PO SCH (21:54)
[2019-09-16] MEDS: OXYCODONE-ACETAMINOPHEN 5-325 MG TABLET PO PRN (02:17)
[2019-09-16] MEDS: HEPARIN SOD (PORCINE) 5,000 UNIT/ML 1 ML VIAL SUBCUT SCH ×2 (05:52→14:26)
[2019-09-16] MEDS: METHOCARBAMOL 500 MG TABLET PO SCH (05:53)
[2019-09-16] MEDS: INSULIN LISPRO 100 UNIT/ML 3 ML VIAL SUBCUT SCH ×2 (08:32→12:38)
[2019-09-16] MEDS: CALCIUM ACETATE 667 MG CAPSULE PO SCH ×2 (08:34→12:42)
[2019-09-16 08:37] LABS: DILUTE RUSSELL VIPOR VENOM 59.7 sec (0.0-47.0); PTT-LA 50.6 sec (0.0-51.9); THROMBIN TIME 18.8 sec (0.0-23.0)
[2019-09-16] MEDS: INSULIN GLARGINE,HUM.REC.ANLOG 1,000 UNIT/10 ML VIAL SUBCUT SCH (09:41)
[2019-09-16] MEDS: NIFEDIPINE 30 MG TAB.ER.24 PO SCH (09:41)
[2019-09-16 14:34] VITALS: BP 150/81
--- NOTE | 2019-09-16 14:49 | PDOC DISCHARGE SUMMARY ---
Impression - Admit/DC Date/PCP Admission Date/Primary Care Provider: 09/11/19 15:43 HILARY HERNANDEZ MD Discharge Date: 09/16/19 - Discharge Diagnosis (1) Metabolic encephalopathy Is this a current diagnosis for this admission?: Yes (2) Type 1 diabetes mellitus with unspecified complications Is this a current diagnosis for this admission?: Yes (3) Fluid overload, unspecified Is this a current diagnosis for this admission?: Yes (4) End-stage renal disease (ESRD) Is this a current diagnosis for this admission?: Yes - Additional Information Resuscitation Status: Full Code Discharge Activity: Activity As Tolerated Referrals: HILARY HERNANDEZ MD [Primary Care Provider] - Follow up as needed Home Medications: Calcium Acetate [Phoslo 667 Mg Capsule] 2,001 mg PO Q8 09/11/19 Calcium Acetate [Phoslo 667 mg Capsule] 1,334 mg PO .[id number] 09/11/19 Furosemide [Lasix 80 mg Tablet] 80 mg PO Q8 09/11/19 Gabapentin Enacarbil [Horizant] 300 mg PO MOWEFR@1000 09/11/19 Insulin Detemir [Levemir] 35 unit SQ BID 09/11/19 Insulin Lispro [Humalog Insulin (Lispro) 100 unit/mL] 0 unit SUBCUT .SLD SCALE 09/11/19 Minocycline HCl [Dynacin] 100 mg PO BID 09/11/19 Nifedipine [Procardia XL 60 mg Tablet] 60 mg PO Q12 09/11/19 Oxcarbazepine [Trileptal] 300 mg PO Q12 09/11/19 Oxycodone HCl/Acetaminophen [Percocet 7.5-325 mg Tablet] 1 each PO QIDP PRN 09/11/19 Paroxetine HCl [Paxil] 80 mg PO QPM 09/11/19 Sodium Polystyrene Sulfonate 30 gm PO SRIVASTAVA@1000 09/11/19 History of Present Illiness History of Present Illness: EIRCH GOODMAN is a 34 year old female, patient is on maintenance hemodialysis she presented on 09/11/2019 with altered mental status, volume overload. She was brought in from outpatient dialysis because she was stuporous and the outpatient dialysis center will not perform dialysis on her because she was very altered. In the emergency room history taking was a challenge she was very somnolent, s he was volume overloaded, she was also found to have prolonged QT interval, she was admitted to ICU and managed by the firearms expert. She was seen by managing broker she underwent hemodialysis she did not require mechanical ventilation Hospital Course Hospital Course: Patient was managed for metabolic encephalopathy felt to be due to multiple etiologies including medication, opioid, end-stage renal disease on hemodialysis she was managed in ICU initially by the firearms expert subsequently downgraded to medical floor/telemetry. She was seen by nephrology underwent hemodialysis on this admission. She was seen today on the floor patient is stable for discharge Physical Exam Vital Signs: Temp Pulse Resp BP Pulse Ox 98.1 F 103 H 14 150/81 H 97 09/16/19 14:34 09/16/19 14:34 09/16/19 14:34 09/16/19 14:34 09/16/19 14:34 Intake & Output 09/15/19 09/16/19 09/17/19 06:59 06:59 06:59 Intake Total 250 462 Output Total 5000 Balance 250 -4538 Weight 126.1 kg 121 kg General appearance: PRESENT: no acute distress Eye exam: PRESENT: PERRLA Respiratory exam: PRESENT: clear to auscultation freddy Cardiovascular exam: PRESENT: +S1, +S2 GI/Abdominal exam: PRESENT: soft Neurological exam: PRESENT: alert Results Laboratory Results: WBC 8.7 10^3/uL (4.0-10.5) 09/15/19 04:08 RBC 3.36 10^6/uL (3.72-5.28) L 09/15/19 04:08 Hgb 9.3 g/dL (12.0-15.5) L 09/15/19 04:08 Hct 29.0 % (36.0-47.0) L 09/15/19 04:08 MCV 86 fl (80-97) 09/15/19 04:08 MCH 27.7 pg (27.0-33.4) 09/15/19 04:08 MCHC 32.1 g/dL (32.0-36.0) 09/15/19 04:08 RDW 16.7 % (11.5-14.0) H 09/15/19 04:08 Plt Count 343 10^3/uL (150-450) 09/15/19 04:08 Lymph % (Auto) 23.2 % (13-45) 09/14/19 07:52 Mclennan % (Auto) 9.1 % (3-13) 09/14/19 07:52 Eos % (Auto) 5.0 % (0-6) 09/14/19 07:52 Baso % (Auto) 0.8 % (0-2) 09/14/19 07:52 Absolute Neuts (auto) 4.5 10^3/uL (1.7-8.2) 09/14/19 07:52 Absolute Lymphs (auto) 1.7 10^3/uL (0.5-4.7) 09/14/19 07:52 Absolute Monos (auto) 0.7 10^3/uL (0.1-1.4) 09/14/19 07:52 Absolute Eos (auto) 0.4 10^3/uL (0.0-0.6) 09/14/19 07:52 Absolute Basos (auto) 0.1 10^3/uL (0.0-0.2) 09/14/19 07:52 Seg Neutrophils % 61.9 % (42-78) 09/14/19 07:52 ESR 89 mm/hr (0-20) H 09/11/19 20:55 Carbonic Acid 0.98 mmol/L (1.05-1.35) L 09/11/19 14:26 HCO3/H2CO3 Ratio 14:1 09/11/19 14:26 ABG pH 7.25 (7.35-7.45) L 09/11/19 14:26 ABG pCO2 32.6 mmHg (35-45) L 09/11/19 14:26 ABG pO2 86.6 mmHg (80-100) 09/11/19 14:26 ABG HCO3 14.1 mmol/L (20-24) L 09/11/19 14:26 ABG Total CO2 15.1 mmol/L (21-25) L 09/11/19 14:26 ABG O2 Saturation 95.3 % (94-98) 09/11/19 14:26 ABG Base Excess -12.0 mmol/L 09/11/19 14:26 VBG pH 7.21 (7.30-7.42) L 09/11/19 13:12 VBG pCO2 43.7 mmHg (35-63) 09/11/19 13:12 VBG HCO3 17.2 mmol/L (20-32) L 09/11/19 13:12 VBG Base Excess -10.0 mmol/L 09/11/19 13:12 FiO2 2L 09/11/19 14:26 Sodium 136.7 mmol/L (137-145) L 09/15/19 04:08 Potassium 4.4 mmol/L (3.6-5.0) 09/15/19 04:08 Chloride 95 mmol/L (98-107) L 09/15/19 04:08 Carbon Dioxide 23 mmol/L (22-30) 09/15/19 04:08 Anion Gap 19 (5-19) 09/15/19 04:08 BUN 73 mg/dL (7-20) H 09/15/19 04:08 Creatinine 11.03 mg/dL (0.52-1.25) H 09/15/19 04:08 Est GFR ( Amer) 5 (>60) L 09/15/19 04:08 Est GFR (MDRD) Non-Af 4 (>60) L 09/15/19 04:08 Glucose 159 mg/dL (75-110) H 09/15/19 04:08 POC Glucose 264 mg/dL (70-110) H 09/16/19 11:47 Hemoglobin A1c % 12.6 % (4.7-6.0) H 09/12/19 02:49 Serum Osmolality 319 mOsm/kg (275-301) H 09/11/19 16:38 Lactic Acid 0.7 mmol/L (0.7-2.1) 09/11/19 13:12 Calcium 7.4 mg/dL (8.4-10.2) L 09/15/19 04:08 Phosphorus 6.4 mg/dL (2.5-4.5) H 09/14/19 07:52 Magnesium 2.2 mg/dL (1.6-2.3) 09/14/19 07:52 Total Bilirubin 0.4 mg/dL (0.2-1.3) 09/12/19 02:49 Direct Bilirubin 0.4 mg/dL (0.0-0.4) 09/12/19 02:49 Neonat Total Bilirubin Not Reportable 09/12/19 02:49 Neonat Direct Bilirubin Not Reportable 09/12/19 02:49 Neonat Indirect Bili Not Reportable 09/12/19 02:49 AST 17 U/L (14-36) 09/12/19 02:49 ALT 11 U/L (<35) 09/12/19 02:49 Alkaline Phosphatase 153 U/L (38-126) H 09/12/19 02:49 Ammonia < 8.7 umol/L (9-33) L 09/12/19 02:49 Creatine Kinase 153 U/L (30-135) H 09/12/19 09:27 CK-MB (CK-2) 1.16 ng/mL (<4.55) 09/12/19 09:27 Troponin I < 0.012 ng/mL 09/12/19 09:27 C-Reactive Protein 44.2 mg/L (<10.0) H 09/11/19 20:55 NT-Pro-B Natriuret Pep 4930 pg/mL (<125) H 09/11/19 13:12 Total Protein 7.9 g/dL (6.3-8.2) 09/12/19 02:49 Albumin 4.2 g/dL (3.5-5.0) 09/12/19 02:49 Beta-Hydroxybutyrate 0.3 mg/dL (.) 09/11/19 13:12 TSH 1.68 uIU/mL (0.47-4.68) 09/11/19 13:12 Free T4 0.79 ng/dL (0.78-2.19) 09/11/19 16:38 Serum HCG, Qual NEGATIVE (NEGATIVE) 09/11/19 16:38 Cortisol AM Sample 8.61 ug/dL (4.46-22.7) 09/15/19 04:08 Salicylates 1.0 mg/dL (2.0-20.0) L 09/11/19 16:38 Acetaminophen < 10 ug/mL (10-30) L 09/11/19 16:38 Oxcarbazepine 12 ug/mL (10-35) 09/11/19 20:55 Serum Alcohol < 10 mg/dL (NONE DETECTED) 09/11/19 20:55 ENZO (Multiplex) Cancelled 09/14/19 07:52 Anti-Nuclear Antibody Negative (Negative) 09/14/19 07:52 09/11/19 09/11/19 09/11/19 13:12 16:38 20:55 CK-MB (CK-2) 1.28 1.20 Troponin I < 0.012 0.012 < 0.012 NT-Pro-B Natriuret Pep 4930 H 09/12/19 09/12/19 02:49 09:27 CK-MB (CK-2) 1.13 1.16 Troponin I < 0.012 < 0.012 NT-Pro-B Natriuret Pep Impressions: Chest X-Ray 09/11/19 12:30 IMPRESSION: CARDIAC ENLARGEMENT. MILD VASCULAR CONGESTION. Head CT 09/11/19 13:36 IMPRESSION: NORMAL BRAIN CT WITHOUT CONTRAST. EVIDENCE OF ACUTE STROKE: NO. Stroke Is this a Stroke Patient?: No Acute Heart Failure - Is this a Heart Failure Patient?: No
[2019-09-16 18:36] LABS: ANTIMYELOPEROXIDASE (MPO) AB <9.0 U/mL (0.0-9.0); CYTOPLASMIC (C-ANCA) <1:20 titer (Neg:<1:20)
[2019-09-17 11:51] LABS: ATYPICAL PANCA <1:20 titer (Neg:<1:20); LUPUS PANEL INTERPRETATION Comment: (.)
== END 2019-09-16 15:45 | disposition home or self-care (01) | DRG 91 ==
LOC: ER 12:03 → EH 15:43 → ICU 19:20 → 5 09-15 13:45
PROVIDERS: ADMIT Internal Medicine; ATTEND Internal Medicine
PROC: 5A09557 Assistance with Respiratory Ventilation, Greater than 96 Consecutive Hours, Continuous Positive Airway Pressure (ICD-10-PCS; 2019-09-11)
PROC: 5A1D70Z Performance of Urinary Filtration, Intermittent, Less than 6 Hours Per Day (ICD-10-PCS; principal; 2019-09-12)
PROC: 5A1D70Z Performance of Urinary Filtration, Intermittent, Less than 6 Hours Per Day (ICD-10-PCS; 2019-09-13)
PROC: 5A1D70Z Performance of Urinary Filtration, Intermittent, Less than 6 Hours Per Day (ICD-10-PCS; 2019-09-15)
DX: G92 Toxic encephalopathy (principal); N18.6 End stage renal disease; I12.0 Hypertensive chronic kidney disease with stage 5 chronic kidney disease or end stage renal disease; N25.81 Secondary hyperparathyroidism of renal origin; Z68.41 Body mass index [BMI] 40.0-44.9, adult; T40.2X5A Adverse effect of other opioids, initial encounter; Y92.9 Unspecified place or not applicable; E10.22 Type 1 diabetes mellitus with diabetic chronic kidney disease; E87.70 Fluid overload, unspecified; R94.31 Abnormal electrocardiogram [ECG] [EKG]; D63.1 Anemia in chronic kidney disease; E10.21 Type 1 diabetes mellitus with diabetic nephropathy; E87.5 Hyperkalemia; I25.10 Atherosclerotic heart disease of native coronary artery without angina pectoris; E10.40 Type 1 diabetes mellitus with diabetic neuropathy, unspecified; E10.319 Type 1 diabetes mellitus with unspecified diabetic retinopathy without macular edema; E83.51 Hypocalcemia; E83.39 Other disorders of phosphorus metabolism; E83.41 Hypermagnesemia; E66.01 Morbid (severe) obesity due to excess calories; E10.65 Type 1 diabetes mellitus with hyperglycemia; F32.9 Major depressive disorder, single episode, unspecified; G89.29 Other chronic pain; Z79.899 Other long term (current) drug therapy; Z79.4 Long term (current) use of insulin; Z91.15 Patient's noncompliance with renal dialysis; Z88.6 Allergy status to analgesic agent; Z88.3 Allergy status to other anti-infective agents; Z88.8 Allergy status to other drugs, medicaments and biological substances; Z99.2 Dependence on renal dialysis
CPT/HCPCS: 36415; 70450; 71046; 80048; 80053; 80183; 80307; 82010; 82140; 82533; 82550; 82553; 82803; 82962; 83036; 83516; 83520; 83605; 83735; 83880; 83930; 84100; 84439; 84443; 84484; 84703; 85025; 85027; 85652; 86038; 86140; 86225; 86235; 86256; 86431; 93005; 93010; 93306; 94660; 96374; 96376; 99285; J0360; J0610; J1644; J1815; J2310; J2550; J3490; Q5105

== ENCOUNTER 2019-09-19 18:36 | Emergency (ER) | payer MEDICARE, MEDICAID ==
--- NOTE | 2019-09-19 20:09 | ER Document Report ---
ED General - General Chief Complaint: Sore Throat Stated Complaint: HEADACHE Time Seen by Provider: 09/19/19 20:09 Primary Care Provider: HILARY HERNANDEZ MD [Primary Care Provider] - Follow up as needed Mode of Arrival: Ambulatory Information source: Patient Notes: HISTORY OF PRESENT ILLNESS: Patient is a 34-year-old female with a past medical history of chronic renal failure on dialysis who presents with headache with sore throat and swelling of the jaw that began 1 day ago. Patient reports that symptoms began 1 day ago, primarily located in the throat as well as the ears with an earache, she then noticed mild swelling on the outside of the ears 1 day ago. She denies injury, no fevers or chills, no cough or congestion. Location: Neck, throat Onset: One day ago Provocation: Swallowing Quality: Swelling, aching Radiation: None Severity: Mild Timing: Constant Known sick contacts: None Associated symptoms: Denies fevers or chills, no cough or congestion, does report mild earache Home treatment: Ibuprofen REVIEW OF SYSTEMS: CONSTITUTIONAL : Denies fever or chills, no sweats. Denies recent illness. EENT: Positive for mild bilateral earache with a swelling, mild dysphasia but no sore throat or fever, no nasal or chest congestion. CARDIOVASCULAR: Denies chest pain. RESPIRATORY: Denies cough, cold, or chest congestion. Denies shortness of breath, difficulty breathing, or wheezing. GASTROINTESTINAL: Denies abdominal pain. Denies nausea, vomiting, or diarrhea. Denies constipation. GENITOURINARY: Denies difficulty urinating, painful urination, burning, frequency, or blood in urine. FEMALE GENITOURINARY: Denies vaginal bleeding, abnormal or irregular periods. MUSCULOSKELETAL: Denies body aches. Denies neck or back pain or joint pain or swelling. SKIN: Denies rash or skin lesions. HEMATOLOGIC : Denies easy bruising or bleeding. LYMPHATIC: Denies swollen, enlarged glands. NEUROLOGICAL: Denies altered mental status or loss of consciousness. Denies headache. Denies weakness or paralysis or loss of use of either side. Denies problems with gait or speech. Denies sensory or motor loss. PSYCHIATRIC: Denies anxiety or stress or depression. All other systems reviewed and negative. PHYSICAL EXAMINATION: GENERAL: Well-appearing, well-nourished and in no acute distress. HEAD: Atraumatic, normocephalic. No scalp deformity, depression, or crepitance. EYES: Pupils are 3 mm and equal/round/reactive to light, extraocular movements intact, sclera anicteric, conjunctiva are normal. ENT: Mild to moderate preauricular lymphadenopathy bilaterally, mild tenderness. Nares patent bilaterally, oropharynx clear without exudates or palatal petechia. Moist mucous membranes. No tonsil hypertrophy. NECK: Normal range of motion, supple without lymphadenopathy. LUNGS: Breath sounds present, equal, and clear to auscultation bilaterally. No wheezes, rales, or rhonchi. HEART: Regular rate and rhythm without murmurs, rubs, or gallops. 2+ peripheral pulses. Normal capillary refill. ABDOMEN: Soft, nontender, nondistended. Normoactive bowel sounds. No guarding, no rebound. No masses appreciated. BACK: Normal contour, no midline tenderness. Rectal exam deferred. GENITAL/PELVC: Deferred. EXTREMITIES: Normal range of motion, no pitting or edema. No cyanosis. NEUROLOGICAL: No focal neurological deficits. Moves all extremities spontaneously and on command. PSYCH: Normal mood, normal affect. No suicidal thoughts/ideations. No homicidal thoughts/ideations. No hallucinations. SKIN: Warm, dry, normal turgor, no rashes or lesions noted. ASSESSMENT AND PLAN: This patient is a 34-year-old female who presents with earaches and preauricular lymphadenopathy consistent with likely viral syndrome, tympanic membranes bilaterally are benign but also supports viral etiology. 1. Will give intramuscular Decadron and reassess. 2. Will likely discharge. TRAVEL OUTSIDE OF THE [place] IN LAST 30 DAYS: No - HPI Onset: Yesterday Onset/Duration: Sudden Quality of pain: Throbbing Severity: Mild Pain Level: 1 Associated symptoms: None, Earache, Headache, Sore throat Exacerbated by: Denies Relieved by: Denies Similar symptoms previously: No Recently seen / treated by doctor: No - Related Data Allergies/Adverse Reactions: aspirin [Aspirin] Allergy (Verified 09/11/19 12:05) Anaphylaxis ciprofloxacin [From Cipro] Allergy (Verified 09/11/19 12:05) Anaphylaxis clindamycin [Clindamycin] Allergy (Verified 09/11/19 12:05) hydrocodone [From Vicodin] Allergy (Verified 09/11/19 12:05) ibuprofen [From Motrin] Allergy (Verified 09/11/19 12:05) Anaphylaxis lidocaine [From Lidoderm] Allergy (Verified 09/11/19 12:05) Generalized rash tramadol HCl [From Ultram] Allergy (Verified 09/11/19 12:05) vancomycin [Vancomycin] Allergy (Verified 09/11/19 12:05) Shortness of Breath nitroglycerin [Nitroglycerin] Adverse Reaction (Intermediate, Verified 09/11/19 12:05) Joint pain Past Medical History - General Information source: Patient - Social History Smoking Status: Unknown if Ever Smoked Chew tobacco use (# tins/day): No Frequency of alcohol use: None Drug Abuse: None Family History: Reviewed & Not Pertinent Patient has suicidal ideation: No Patient has homicidal ideation: No - Past Medical History Cardiac Medical History: Reports: Hx Congestive Heart Failure, Hx Coronary Artery Disease, Hx Hypertension, Hx Heart Murmur Pulmonary Medical History: Reports: Hx Asthma, Hx Pneumonia EENT Medical History: Reports: None Neurological Medical History: Reports: Hx Migraine, Hx Seizures - only r/t low calcium. Denies: Hx Parkinson's Disease Endocrine Medical History: Reports: Hx Diabetes Mellitus Type 1, Hx Diabetes Mellitus Type 2 Renal/ Medical History: Reports: Hx End Stage Renal Disease - On hemodialysis ---, Hx Hemodialysis, Hx Ovarian Cysts. Denies: Hx Peritoneal Dialysis Malignancy Medical History: Reports: None GI Medical History: Reports: Hx Gastritis Musculoskeletal Medical History: Reports None Skin Medical History: Reports Hx Psoriasis Psychiatric Medical History: Reports: Hx Depression Traumatic Medical History: Reports: None Infectious Medical History: Reports: None Past Surgical History: Reports: Hx Appendectomy, Hx Cholecystectomy, Hx Vascular Surgery - Lt AV Fistula and graft; Rt AV fistula - Immunizations Immunizations up to date: Yes Hx Diphtheria, Pertussis, Tetanus Vaccination: Yes Hx Pneumococcal Vaccination: 08/22/11 Review of Systems - Review of Systems Constitutional: No symptoms reported EENT: See HPI, Ear pain, Throat pain Cardiovascular: No symptoms reported Respiratory: No symptoms reported Gastrointestinal: No symptoms reported Genitourinary: No symptoms reported Female Genitourinary: No symptoms reported Musculoskeletal: No symptoms reported Skin: No symptoms reported Hematologic/Lymphatic: No symptoms reported Neurological/Psychological: No symptoms reported -: Yes All other systems reviewed and negative Physical Exam - Vital signs Vitals: Temp Pulse Resp BP Pulse Ox 98.3 F 90 16 155/80 H 100 09/19/19 18:47 09/19/19 18:47 09/19/19 18:47 09/19/19 18:47 09/19/19 18:47 Interpretation: Normal Course - Re-evaluation Re-evalutation: 09/19/19 21:32 Will discharge the patient home with strict return precautions and follow-up with primary care. All results were explained to and discussed with the patient, and all questions addressed and answered. The patient voices both understanding and agreeing with the plan. - Vital Signs Vital signs: Temp Pulse Resp BP Pulse Ox 97.9 F 91 17 180/87 H 94 09/19/19 21:53 09/19/19 21:53 09/19/19 21:53 09/19/19 21:53 09/19/19 21:53 Discharge - Discharge Clinical Impression: Viral syndrome, Lymphadenopathy of head and neck region Condition: Good Disposition: HOME, SELF-CARE Instructions: Lymphadenopathy ([facility]), Viral Syndrome ([facility]) Additional Instructions: You have been evaluated in the Emergency Department for pain and swelling of the area surrounding your ears that is likely related to a viral illness and resulting swollen lymph nodes. While here, you were given an intramuscular injection of a steroid and it is now safe to be discharged home. Please follow- up with your primary physician as instructed in one week to be rechecked. Return to the Emergency Department if you experience high fevers, difficulty breathing, increased swelling of the head or face, or any other concerning symptoms. Prescriptions: Methylprednisolone [Medrol Dosepack (4 mg/Tab) 21 Tab/Dosepak] 4 mg PO ASDIR PRN #21 [email or web address] PRN Reason: Referrals: HILARY HERNANDEZ MD [Primary Care Provider] - Follow up as needed Print Language: [place] Island[place]
[2019-09-19] MEDS ORDERED: DEXAMETHASONE SOD PHOS INJ 10 MG/1 ML VIAL IM ONE (21:09)
[2019-09-19 21:54] VITALS: BP 180/87
== END 2019-09-19 21:45 | disposition home or self-care (01) ==
LOC: ER 18:36
DX: B34.9 Viral infection, unspecified (principal); R59.0 Localized enlarged lymph nodes; J02.9 Acute pharyngitis, unspecified; R51 Headache; I50.9 Heart failure, unspecified; E11.22 Type 2 diabetes mellitus with diabetic chronic kidney disease; I13.2 Hypertensive heart and chronic kidney disease with heart failure and with stage 5 chronic kidney disease, or end stage renal disease; N18.6 End stage renal disease; Z99.2 Dependence on renal dialysis; Z90.49 Acquired absence of other specified parts of digestive tract
CPT/HCPCS: 99282; 96374; J1100

== ENCOUNTER 2019-09-25 09:08 | Inpatient (IN) | payer MEDICARE, MEDICAID ==
[2019-09-25] MEDS ORDERED: ONDANSETRON HCL INJ/PF 4 MG/2 ML SDV IV ONE (09:45)
[2019-09-25] MEDS ORDERED: MORPHINE SULFATE 10 MG/ML INJ IV ONE (09:45)
--- NOTE | 2019-09-25 09:50 | ER Document Report ---
ED GI/ - General Chief Complaint: Abdominal Pain Stated Complaint: ABDOMINAL PAIN Time Seen by Provider: 09/25/19 09:25 Primary Care Provider: HILARY HERNANDEZ MD [Primary Care Provider] - Follow up as needed Notes: HPI: 34-year-old female very well-known to this emergency department who presents today with the onset this morning of some left upper abdominal pain without radiation. She denies any aggravating or relieving factors. She states nausea without vomiting. She states multiple bouts of nonbloody diarrhea. She denies being febrile. She does not make urine. She denies any recent travel or antibiotics. Patient was admitted to the hospital on 2 weeks ago secondary to metabolic encephalopathy with possible opioid ingestion and fluid overload. She states she did receive dialysis on Wednesday and Wednesday. ROS: See HPI All other review of systems reviewed and otherwise negative Reviewed vital signs and nursing note as charted by RN. PHYSICAL EXAM: CONSTITUTIONAL: Alert and oriented and responds appropriately to questions. Well-appearing; well-nourished HEAD: Normocephalic; atraumatic EYES: Sclerae non-icteric ENT: Normal nose; no rhinorrhea; moist mucous membranes; pharynx without lesions noted NECK: Supple without meningismus; non-tender; no cervical lymphadenopathy, no masses CARD: Regular rate and rhythm; no murmurs; symmetric distal pulses RESP: Normal chest excursion without splinting or tachypnea; breath sounds clear and equal bilaterally; no wheezes, no rhonchi, no rales ABD/GI: Normal bowel sounds; slightly distended; soft, mildly tender palpation of left upper quadrant without rebound or guarding; no lower abdominal tenderness; no palpable organomegaly or masses BACK: The back appears normal and is non-tender to palpation EXT: Normal ROM in all joints; non-tender to palpation; no edema SKIN: No acute lesions noted NEURO: CN 2-12 intact; 5/5 bilateral upper and lower extremity strength with sensation intact to light touch PSYCH: The patient's mood and manner are appropriate. Grooming and personal hygiene are appropriate. TRAVEL OUTSIDE OF THE [place] IN LAST 30 DAYS: No - Related Data Allergies/Adverse Reactions: aspirin [Aspirin] Allergy (Verified 09/11/19 12:05) Anaphylaxis ciprofloxacin [From Cipro] Allergy (Verified 09/11/19 12:05) Anaphylaxis clindamycin [Clindamycin] Allergy (Verified 09/11/19 12:05) hydrocodone [From Vicodin] Allergy (Verified 09/11/19 12:05) ibuprofen [From Motrin] Allergy (Verified 09/11/19 12:05) Anaphylaxis lidocaine [From Lidoderm] Allergy (Verified 09/11/19 12:05) Generalized rash tramadol HCl [From Ultram] Allergy (Verified 09/11/19 12:05) vancomycin [Vancomycin] Allergy (Verified 09/11/19 12:05) Shortness of Breath nitroglycerin [Nitroglycerin] Adverse Reaction (Intermediate, Verified 09/11/19 12:05) Joint pain Past Medical History - Social History Smoking Status: Never Smoker Chew tobacco use (# tins/day): No Frequency of alcohol use: None Drug Abuse: None Family History: Reviewed & Not Pertinent Patient has suicidal ideation: No Patient has homicidal ideation: No - Past Medical History Cardiac Medical History: Reports: Hx Congestive Heart Failure, Hx Coronary Artery Disease, Hx Hypertension, Hx Heart Murmur Pulmonary Medical History: Reports: Hx Asthma, Hx Pneumonia Neurological Medical History: Reports: Hx Migraine, Hx Seizures - only r/t low calcium. Denies: Hx Parkinson's Disease Endocrine Medical History: Reports: Hx Diabetes Mellitus Type 1, Hx Diabetes Mellitus Type 2 Renal/ Medical History: Reports: Hx End Stage Renal Disease - On hemodialysis , Hx Hemodialysis, Hx Ovarian Cysts. Denies: Hx Peritoneal Dialysis Malignancy Medical History: GI Medical History: Reports: Hx Gastritis Musculoskeletal Medical History: Skin Medical History: Reports Hx Psoriasis Psychiatric Medical History: Reports: Hx Depression Traumatic Medical History: Infectious Medical History: Past Surgical History: Reports: Hx Appendectomy, Hx Cholecystectomy, Hx Vascular Surgery - Lt AV Fistula and graft; Rt AV fistula - Immunizations Immunizations up to date: Yes Hx Diphtheria, Pertussis, Tetanus Vaccination: Yes Hx Pneumococcal Vaccination: 08/22/11 Physical Exam - Vital signs Vitals: Temp Resp Pulse Ox 98.0 F 16 100 09/25/19 09:24 09/25/19 09:24 09/25/19 09:24 Course - Re-evaluation Re-evalutation: 09/25/19 09:49 Given the history and physical examination we will order basic labs, liver panel, lipase, CT scan of the abdomen and pelvis without contrast, and reassess. I have very low suspicion for an acute appendicitis given the location of the patient's pain. 09/25/19 11:35 Patient has a slightly elevated lipase. Potassium 6.6. Calcium is very low at 5.7. Patient has an elevated anion gap with a CO2 of 13. Blood glucose is greater than 400. Concern about diabetic ketoacidosis. Venous blood gas has been ordered. I will provide a bolus of insulin for the patient's glucose and potassium. We will most likely touch base with the patient's shop tailor. 09/25/19 11:39 I spoken with the shop tailor who states that he is able to dialyze the patient this afternoon if needed. I am waiting for the VBG. When this returns, patient will be admitted. 09/25/19 11:54 EKG shows a heart rate of 80, normal sinus rhythm, inverted T waves in aVL, peak T waves V4 through V6. T waves appear to be new. Patient supposedly will be taken to dialysis momentarily. I will admit the patient to the IMCU at this moment. - Vital Signs Vital signs: Temp Pulse Resp BP Pulse Ox 98.0 F 13 115/73 97 09/25/19 09:24 09/25/19 11:01 09/25/19 11:01 09/25/19 11:01 - Laboratory Result Diagrams: 09/25/19 10:10 09/25/19 10:10 Laboratory results interpreted by me: 09/25/19 09/25/19 10:10 10:10 WBC 12.3 H RBC 3.34 L Hgb 10.4 L Hct 29.2 L RDW 16.9 H Absolute Eos (auto) 0.7 H Sodium 130.7 L Potassium 6.6 H* Chloride 90 L Carbon Dioxide 13 L Anion Gap 28 H BUN 116 H Creatinine 13.45 H Est GFR ( Amer) 4 L Est GFR (MDRD) Non-Af 3 L Glucose 406 H* Calcium 5.2 L* Alkaline Phosphatase 153 H Lipase 525.2 H Critical Care Note - Critical Care Note Total time excluding time spent on procedures (mins): 45 Discharge - Discharge Clinical Impression: Acute pancreatitis Qualifiers: Pancreatitis type: unspecified pancreatitis type Acute pancreatitis complication: unspecified Qualified Code(s): K85.90 - Acute pancreatitis without necrosis or infection, unspecified Diarrhea Qualifiers: Diarrhea type: unspecified type Qualified Code(s): R19.7 - Diarrhea, unspecified Diabetic ketoacidosis Qualifiers: Diabetes mellitus type: type 1 Diabetes mellitus complication detail: without coma Qualified Code(s): E10.10 - Type 1 diabetes mellitus with ketoacidosis without coma Condition: Fair Disposition: ADMITTED INPATIENT Admitting Provider: Areli Unit Admitted: IMCU Referrals: HILARY HERNANDEZ MD [Primary Care Provider] - Follow up as needed
[2019-09-25 10:27] LABS: ABSOLUTE BASOPHILS # (AUTO) 0.2 10^3/uL (0.0-0.2); ABSOLUTE EOSINOPHILS # (AUTO) 0.7 10^3/uL (0.0-0.6); ABSOLUTE LYMPHOCYTES (AUTO) 3.1 10^3/uL (0.5-4.7); ABSOLUTE MONOCYTES (AUTO) 0.7 10^3/uL (0.1-1.4); ABSOLUTE NEUT (AUTO) 7.7 10^3/uL (1.7-8.2); BASOPHILS % (AUTO) 1.4 % (0-2); EOSINOPHILS % (AUTO) 5.3 % (0-6); HEMATOCRIT 29.2 % (36.0-47.0); HEMOGLOBIN 10.4 g/dL (12.0-15.5); LYMPHOCYTES % (AUTO) 25.3 % (13-45); MEAN CORPUSCULAR HEMOGLOBIN 31.2 pg (27.0-33.4); MEAN CORPUSCULAR HGB CONC 35.6 g/dL (32.0-36.0); MEAN CORPUSCULAR VOLUME 88 fl (80-97); MONOCYTES % (AUTO) 5.6 % (3-13); PLATELET COUNT 429 10^3/uL (150-450); RED BLOOD COUNT 3.34 10^6/uL (3.72-5.28); RED CELL DISTRIBUTION WIDTH 16.9 % (11.5-14.0); SEGMENTED NEUTROPHILS % (AUTO) 62.4 % (42-78); TOTAL CELLS COUNTED % (AUTO) 100 %; WHITE BLOOD COUNT 12.3 10^3/uL (4.0-10.5)
--- NOTE | 2019-09-25 10:43 | RADIOLOGY REPORT (SQ) ---
EXAM DESCRIPTION: CT ABD/PELVIS NO ORAL OR IV COMPLETED DATE/TIME: 09/25/2019 10:15 am REASON FOR STUDY: 22; left abdominal pain COMPARISON: 07/27/2019 TECHNIQUE: CT scan of the abdomen and pelvis performed without intravenous or oral contrast. Images reviewed with lung, soft tissue, and bone windows. Reconstructed coronal and sagittal MPR images revi ewed. All images stored on PACS. All CT scanners at this facility use dose modulation, iterative reconstruction, and/or weight based d osing when appropriate to reduce radiation dose to as low as reasonably achievable (ALARA). [facility]: Dose Right [facility]: CareDose [facility]: Dose Right [facility]: Teradose 4D [facility]: [employer] RADIATION DOSE: CT Rad equipment meets quality standard of care and radiation dose reduction techniq ues were employed. CTDIvol: 19.1 mGy. DLP: 1073 mGy-cm.mGy. LIMITATIONS: None. FINDINGS: LOWER CHEST: Bibasilar ground-glass opacity, likely related to partial atelectasis or smal l airways disease. NON-CONTRASTED LIVER, SPLEEN, ADRENALS: Evaluation limited by lack of IV contrast. No identified sign ificant masses. PANCREAS: No masses. No peripancreatic inflammatory changes. GALLBLADDER: Surgically absent. RIGHT KIDNEY AND URETER: Atrophic. No suspicious masses. Assessment limited by lack of IV contrast. No significant calcifications. No hydronephrosis or hydroureter. LEFT KIDNEY AND URETER: Atrophic. No suspicious masses. Assessment limited by lack of IV contrast. No significant calcifications. No hydronephrosis or hydroureter. AORTA AND RETROPERITONEUM: No aneurysm. No retroperitoneal masses or adenopathy. Calcific atheroscle rosis and vascular calcinosis. BOWEL AND PERITONEAL CAVITY: No obvious masses or inflammatory changes. No free fluid. APPENDIX: Not clearly visualized. PELVIS, BLADDER, AND ABDOMINAL WALL:No abnormal masses. No free fluid. Bladder normal. BONES: Renal osteodystrophy. OTHER: No other significant finding. IMPRESSION: 1. No acute noncontrast CT findings of the abdomen or pelvis to explain left upper quad rant abdominal pain. 2. Stigmata of end-stage renal disease. COMMENT: Quality ID # [id number]: Final reports with documentation of one or more dose reduction techniques (e.g., Automated exposure control, adjustment of the mA and/or kV according to patient size, use of iterative reconstruction technique) TECHNICAL DOCUMENTATION: JOB ID: [id number] [employer]- All Rights Reserved Reading location - IP/workstation name: [email or web address]
[2019-09-25 10:48] LABS: ALBUMIN 4.3 g/dL (3.5-5.0); ALKALINE PHOSPHATASE 153 U/L (38-126); ASPARTATE AMINO TRANSFERASE 17 U/L (14-36); BLOOD UREA NITROGEN 116 mg/dL (7-20)
[2019-09-25 10:49] LABS: BILIRUBIN,DIRECT 0.4 mg/dL (0.0-0.4); BILIRUBIN,TOTAL 0.4 mg/dL (0.2-1.3); TOTAL PROTEIN 8.1 g/dL (6.3-8.2)
[2019-09-25 10:54] LABS: CARBON DIOXIDE 13 mmol/L (22-30); CHLORIDE 90 mmol/L (98-107)
[2019-09-25 11:10] LABS: CALCIUM 5.2 mg/dL (8.4-10.2)
[2019-09-25 11:11] LABS: GLUCOSE 406 mg/dL (75-110)
[2019-09-25 11:23] LABS: ANION GAP 28 (5-19)
[2019-09-25] MEDS ORDERED: INSULIN REG, HUMAN 100 UNIT/ML 3 ML VIAL (PYX) IV ONE (11:31)
[2019-09-25] MEDS ORDERED: CALCIUM GLUCONATE 1000 MG/10 ML INJ IV ONE (11:32)
[2019-09-25 11:34] LABS: POTASSIUM 6.6 mmol/L (3.6-5.0)
[2019-09-25 12:33] LABS: VENOUS BLOOD BASE EXCESS -13.7 mmol/L; VENOUS BLOOD HCO3 13.3 mmol/L (20-32); VENOUS BLOOD PCO2 35.1 mmHg (35-63); VENOUS BLOOD PH 7.2 (7.30-7.42)
[2019-09-25] MEDS ORDERED: HEPARIN SOD (PORCINE) 1,000 UNIT/ML 10 ML VIAL IV PRN (14:17)
[2019-09-25] MEDS ORDERED: DIPHENHYDRAMINE HCL 50 MG/ML VIAL IV ONE (15:30)
--- NOTE | 2019-09-25 18:05 | PDOC CONSULTATION ---
Consultation Consult Date: 09/25/19 Provider Consulted: Lazarus OLIVARES Consult reason:: ESRD for urgent hemodialysis in the setting of severe hyperkalemia and fluid overload History of Present Illness Admission Date/PCP: 09/25/19 12:05 HILAYR HERNANDEZ MD History of Present Illness: ERICH GOODMAN is a 34 year old female with a history of ESRD in the background of poorly controlled diabetes, hypertension, Hypocalcemia and severe noncompliance with diet and medications and dialysis treatments. She is being admitted with history of left upper quadrant pain for the last 24 hours. No history of any nausea or vomiting. No history of any radiation or precipitating or relieving factors. She also has some headaches. She states her last dialysis was Wednesday but also underwent ultrafiltration on Wednesday as well. She has a history of noncompliance with medications as well as hemodialysis treatments and has had multiple missed treatments as well as treatments that have been cut short dras tically. She also mentions that she has had a couple of episodes of diarrhea today which is not bloody. No history of any recent antibiotics. No history of any fever or chills. She is currently being seen while undergoing dialysis. She looks quite comfortable in no acute distress. She states she has got some itching and is requesting for Benadryl. Labs and medications were reviewed. Lipase is elevated at around 500+.Potassium is 6.6 and a calcium is 5.2 with an albumin of 4.3. Her blood sugars close to 500. She received 2 g of IV calcium gluconate in the ER. Dialysis orders were reviewed with the treating dialysis nurse. Past Medical History Cardiac Medical History: Reports: Coronary Artery Disease, Heart Murmur, Hypertension-primary Pulmonary Medical History: Reports: Asthma, Pneumonia Neurological Medical History: Reports: Migraine, Seizures - only r/t low calcium Endocrine Medical History: Reports: Diabetes Mellitus Type 1, Diabetes Mellitus Type 2 Complications of Diabetes: Reports: Autonomic Neuropathy, Nephropathy, Retinopathy Renal/ Medical History: Reports: End Stage Renal Disease - On hemodialysis ---, Hypocalcemia, Hyperkalemia, Hyperphosphatemia, Secondary Hyperparathyroidism Malignancy Medical History: GI Medical History: Musculoskeltal Medical History: Skin Medical History: Reports: Psoriasis Psychiatric Medical History: Reports: Depression Infectious Medical History: Hematology Medical History: Reports Anemia of Chronic Kidney Disease Past Surgical History Past Surgical History: Reports: Appendectomy, Cholecystectomy, Dialysis Access Surgery AVF, Vascular Surgery - Lt AV Fistula and graft; Rt AV fistula Social History Smoking Status: Never Smoker Electronic Cigarette use?: No Frequency of Alcohol Use: Occasional Hx Recreational Drug Use: No Drugs: None Hx Prescription Drug Abuse: No - Advance Directive Resuscitation Status: Full Code Family History Parental Family History Reviewed: No Children Family History Reviewed: No Sibling(s) Family History Reviewed.: No Medication/Allergy Allergies/Adverse Reactions: aspirin [Aspirin] Allergy (Verified 09/11/19 12:05) Anaphylaxis ciprofloxacin [From Cipro] Allergy (Verified 09/11/19 12:05) Anaphylaxis clindamycin [Clindamycin] Allergy (Verified 09/11/19 12:05) hydrocodone [From Vicodin] Allergy (Verified 09/11/19 12:05) ibuprofen [From Motrin] Allergy (Verified 09/11/19 12:05) Anaphylaxis lidocaine [From Lidoderm] Allergy (Verified 09/11/19 12:05) Generalized rash tramadol HCl [From Ultram] Allergy (Verified 09/11/19 12:05) vancomycin [Vancomycin] Allergy (Verified 09/11/19 12:05) Shortness of Breath nitroglycerin [Nitroglycerin] Adverse Reaction (Intermediate, Verified 09/11/19 12:05) Joint pain Review of Systems Constitutional: PRESENT: fatigue, headache(s), weakness. ABSENT: anorexia, fever(s), night sweats Nose, Mouth, and Throat: ABSENT: mouth pain, sore throat Cardiovascular: ABSENT: chest pain, dyspnea on exertion, edema, orthropnea, palpitations Gastrointestinal: PRESENT: abdominal pain - Left upper abdominal, diarrhea. ABSENT: bloating, coffee ground emesis, constipation, dysphagia, heartburn, nausea, vomiting Musculoskeletal: ABSENT: deformity, joint swelling Integumentary: PRESENT: pruritus. ABSENT: lesions Neurological: ABSENT: abnormal gait, abnormal speech, confusion, convulsions, focal weakness, frequent falls, lack of coordination Psychiatric: PRESENT: anxiety, depression Hematologic/Lymphatic: ABSENT: easy bruising, lymphadenopathy Physical Exam Vital Signs: Temp Pulse Resp BP Pulse Ox 98.0 F 13 115/73 97 09/25/19 09:24 09/25/19 11:01 09/25/19 11:01 09/25/19 11:01 Intake & Output 09/24/19 09/25/1919 06:59 06:59 06:59 Weight 117.48 kg General appearance: PRESENT: no acute distress Eye exam: PRESENT: EOMI, PERRLA. ABSENT: scleral icterus Ear exam: PRESENT: normal external ear exam Mouth exam: PRESENT: moist, neck supple Neck exam: ABSENT: lymphadenopathy, meningismus, tenderness, thyromegaly, tracheal deviation Respiratory exam: PRESENT: clear to auscultation freddy. ABSENT: crackles Cardiovascular exam: PRESENT: +S1, +S2 GI/Abdominal exam: PRESENT: normal bowel sounds, soft, tenderness - Mildly tender in the left upper quadrant.. ABSENT: organomegaly Extremities exam: PRESENT: pedal edema Neurological exam: PRESENT: alert, awake, oriented to person, oriented to place, oriented to time, oriented to situation Psychiatric exam: PRESENT: anxious Skin exam: ABSENT: cyanosis, erythema, mottled, petechiae, rash Results Laboratory Results: 09/25/19 10:10 09/25/19 10:10 09/25/19 09/25/19 09/25/19 10:10 10:10 12:00 WBC 12.3 H RBC 3.34 L Hgb 10.4 L Hct 29.2 L MCV 88 MCH 31.2 MCHC 35.6 RDW 16.9 H Plt Count 429 Seg Neutrophils % 62.4 VBG pH 7.20 L VBG pCO2 35.1 VBG HCO3 13.3 L VBG Base Excess -13.7 Sodium 130.7 L Potassium 6.6 H* Chloride 90 L Carbon Dioxide 13 L Anion Gap 28 H BUN 116 H Creatinine 13.45 H Est GFR ( Amer) 4 L Glucose 406 H* Calcium 5.2 L* Total Bilirubin 0.4 AST 17 Alkaline Phosphatase 153 H Total Protein 8.1 Albumin 4.3 Lipase 525.2 H Impressions: Abdomen/Pelvis CT 09/25/19 09:45 IMPRESSION: 1. No acute noncontrast CT findings of the abdomen or pelvis to explain left upper quadrant abdominal pain. 2. Stigmata of end-stage renal disease. Assessment & Plan - Diagnosis (1) Hyperkalemia Plan: Should respond to urgent dialysis which is being instituted. See response to dialysis. Again reiterated watching her diet and discussed the consequences. (2) Hypocalcemia Plan: No apparent evidences of tetany. IV calcium given in the ER. We will continue with IV calcium and start on calcitriol.She admits to noncompliance with taking her Tums as well as calcitriol. (3) ESRD (end stage renal disease) Plan: Patient currently undergoing dialysis. Vital signs are stable. Dialysis is being supervised to ensure safe and smooth procedure. Plan to remove between 4 and 5 L as tolerated as she is got fluid overload. Will put on a 1K bath followed by 2K bath on a 3 calcium bath. Discussed and reviewed dialysis orders with the treating nurse. Discussed with patient about compliance with diet and medications and not cutting and missing dialysis treatments. Unfortunately this has been going on multiple times and all the advice of falling on deaf ears and I fear that she will pay a heavy hector. (4) Acute pancreatitis Qualifiers: Pancreatitis type: unspecified pancreatitis type Acute pancreatitis complication: unspecified Qualified Code(s): K85.90 - Acute pancreatitis without necrosis or infection, unspecified Plan: As per Dr. Hernandez. (5) Abdominal pain Qualifiers: Abdominal location: unspecified location Qualified Code(s): R10.9 - Unspecified abdominal pain Plan: Likely from a mild acute pancreatitis. Management as per Dr. Hernandez. (6) Anemia in chronic kidney disease (CKD) Qualifiers: Chronic kidney disease stage: on chronic dialysis Qualified Code(s): N18.6 - End stage renal disease; D63.1 - Anemia in chronic kidney disease; Z99.2 - Dependence on renal dialysis Plan: Currently no indications for erythropoietin. Monitor. (7) Diabetes mellitus type 1 Qualifiers: Plan: Poorly controlled. Advised the need for watching her diet and taking her medications properly to keep her blood sugars controlled. (8) Hypertension Qualifiers: Hypertension type: unspecified Qualified Code(s): I10 - Essential (primary) hypertension (9) Morbid obesity Plan: Controlled currently.
[2019-09-25] MEDS ORDERED: GLUCAGON,HUMAN RECOMB 1 MG INJ IM PRN (18:30)
[2019-09-25] MEDS ORDERED: DEXTROSE 40% GEL 15 GM TUBE X 2 PO PRN (18:30)
[2019-09-25] MEDS ORDERED: DEXTROSE 50%-WATER SYRINGE 12.5 GM/25 ML DOSE IV PRN (18:30)
[2019-09-25] MEDS ORDERED: DEXTROSE 50%-WATER SYRINGE 25 GM/50 ML DOSE IV PRN (18:30)
[2019-09-25] MEDS ORDERED: DEXTROSE 40% GEL 15 GM TUBE PO PRN (18:30)
[2019-09-25] MEDS ORDERED: (PENDING PHARMACY ID) (Oxycodone Hcl/Acetaminophen [Percocet 7.5-325 Mg Tablet] 1 EACH) PO PRN (18:47)
[2019-09-25] MEDS: CALCITRIOL 0.25 MCG CAPSULE PO SCH (18:53)
[2019-09-25] MEDS: CALCIUM GLUCONATE 1000 MG/10 ML INJ IV SCH (18:54)
[2019-09-25] MEDS ORDERED: CALCIUM ACETATE 667 MG CAPSULE PO SCH (19:00)
[2019-09-25] MEDS ORDERED: INSULIN LISPRO 100 UNIT/ML 3 ML VIAL SUBCUT SCH (19:00)
[2019-09-25] MEDS: CALCIUM ACETATE 667 MG CAPSULE PO SCH (19:53)
[2019-09-25] MEDS: OXYCODONE HCL IR 5 MG TABLET PO PRN (19:54)
[2019-09-25] MEDS: OXYCODONE-ACETAMINOPHEN 5-325 MG TABLET PO PRN (19:54)
[2019-09-25] MEDS: PAROXETINE HCL 20 MG TABLET PO SCH (19:54)
--- NOTE | 2019-09-25 21:20 | PDOC H&P ---
History of Present Illness Admission Date/PCP: 09/25/19 12:05 HILARY HERNANDEZ MD History of Present Illness: ERICH GOODMAN is a 34 year old femaleShe came to the emergency room for evaluation of abdominal pain, there was associated diarrhea, she had multiple episode of non-bloody diarrhea, in the emergency room she was evaluated she was found to have severe hyperglycemia, she was in DKA when she presented to the emergency room CT scan of the abdomen and pelvis with no contrast was obtained, it showed bilateral atrophic kidneys there was no CAT scan evidence of inflamed pancreas, the serum lipase was slightly elevated in the 600 range.. She has end-stage renal disease on maintenance hemodialysis Past Medical History Cardiac Medical History: Reports: Congestive Heart Failure, Coronary Artery Disease, Hypertension, Heart Murmur Pulmonary Medical History: Reports: Asthma, Pneumonia Neurological Medical History: Reports: Migraine, Seizures - only r/t low calcium Endocrine Medical History: Reports: Diabetes Mellitus Type 1 Renal/ Medical History: Reports: End Stage Renal Disease - On hemodialysis --- Malignancy Medical History: GI Medical History: Musculoskeltal Medical History: Skin Medical History: Reports: Psoriasis Psychiatric Medical History: Reports: Depression Hematology: Reports: Anemia Infectious Medical History: Past Surgical History Past Surgical History: Reports: Appendectomy, Cholecystectomy, Vascular Surgery - Lt AV Fistula and graft; Rt AV fistula Social History Smoking Status: Never Smoker Electronic Cigarette use?: No Frequency of Alcohol Use: Occasional Hx Recreational Drug Use: No Drugs: None Hx Prescription Drug Abuse: No - Advance Directive Resuscitation Status: Full Code Family History Family History: Reviewed & Not Pertinent Parental Family History Reviewed: Yes Children Family History Reviewed: Yes Sibling(s) Family History Reviewed.: Yes Medication/Allergy Home Medications: Calcium Acetate [Phoslo 667 Mg Capsule] 1,334 mg PO .[id number] 09/25/19 Calcium Acetate [Phoslo 667 Mg Capsule] 2,001 mg PO Q8 09/25/19 Furosemide [Lasix 80 mg Tablet] 80 mg PO Q8 09/25/19 Gabapentin Enacarbil [Horizant] 300 mg PO MOWEFR@1000 09/25/19 Insulin Detemir [Levemir] 35 unit SQ BID 09/25/19 Insulin Lispro [Humalog Insulin 100 Unit/1 ml 3 ml Vial] 0 unit SUBCUT .SLD SCALE 09/25/19 Methylprednisolone [Medrol Dosepack (4 mg/Tab) 21 Tab/Dosepak] 4 mg PO ASDIR PRN 09/25/19 Minocycline HCl [Dynacin] 100 mg PO BID 09/25/19 Nifedipine [Procardia XL 60 mg Tablet] 60 mg PO Q12 09/25/19 Oxcarbazepine [Trileptal] 300 mg PO Q12 09/25/19 Oxycodone HCl/Acetaminophen [Percocet 7.5-325 mg Tablet] 1 each PO QIDP PRN 09/25/19 Paroxetine HCl [Paxil] 80 mg PO QPM 09/25/19 Sodium Polystyrene Sulfonate [Kayexalate 15 Gm/60 Ml Susp 60 Ml] 30 gm PO SRIVASTAVA@1000 09/25/19 Allergies/Adverse Reactions: aspirin [Aspirin] Allergy (Verified 09/11/19 12:05) Anaphylaxis ciprofloxacin [From Cipro] Allergy (Verified 09/11/19 12:05) Anaphylaxis clindamycin [Clindamycin] Allergy (Verified 09/11/19 12:05) hydrocodone [From Vicodin] Allergy (Verified 09/11/19 12:05) ibuprofen [From Motrin] Allergy (Verified 09/11/19 12:05) Anaphylaxis lidocaine [From Lidoderm] Allergy (Verified 09/11/19 12:05) Generalized rash tramadol HCl [From Ultram] Allergy (Verified 09/11/19 12:05) vancomycin [Vancomycin] Allergy (Verified 09/11/19 12:05) Shortness of Breath nitroglycerin [Nitroglycerin] Adverse Reaction (Intermediate, Verified 09/11/19 12:05) Joint pain Review of Systems Constitutional: ABSENT: chills, fever(s), headache(s), weight gain, weight loss Eyes: ABSENT: visual disturbances Ears: ABSENT: hearing changes Cardiovascular: ABSENT: chest pain, dyspnea on exertion, edema, orthropnea, palpitations Respiratory: ABSENT: cough, hemoptysis Gastrointestinal: PRESENT: abdominal pain. ABSENT: constipation, diarrhea, hematemesis, hematochezia, nausea, vomiting Genitourinary: ABSENT: dysuria, hematuria Musculoskeletal: ABSENT: joint swelling Integumentary: ABSENT: rash, wounds Neurological: ABSENT: abnormal gait, abnormal speech, confusion, dizziness, focal weakness, syncope Psychiatric: ABSENT: anxiety, depression, homidical ideation, suicidal ideation Endocrine: ABSENT: cold intolerance, heat intolerance, menstrual abnormalities, polydipsia, polyuria Hematologic/Lymphatic: ABSENT: easy bleeding, easy bruising, lymphadenopathy Physical Exam Vital Signs: Temp Pulse Resp BP Pulse Ox 98.2 F 91 16 147/73 H 100 09/25/19 20:00 09/25/19 20:00 09/25/19 20:00 09/25/19 20:00 09/25/19 20:00 Intake & Output 09/24/19 09/25/19 09/26/19 06:59 06:59 06:59 Output Total 4147 Balance -4147 Weight 117.48 kg General appearance: PRESENT: no acute distress, well-developed, well-nourished Head exam: PRESENT: atraumatic, normocephalic Eye exam: PRESENT: conjunctiva pink, EOMI, PERRLA Ear exam: PRESENT: normal external ear exam Mouth exam: PRESENT: moist, tongue midline Neck exam: PRESENT: full ROM Respiratory exam: PRESENT: clear to auscultation freddy Cardiovascular exam: PRESENT: RRR, +S1, +S2 Pulses: PRESENT: normal dorsalis pedis pul, +2 pedal pulses bilateral Vascular exam: PRESENT: normal capillary refill GI/Abdominal exam: PRESENT: normal bowel sounds, soft Rectal exam: PRESENT: deferred Neurological exam: PRESENT: alert, CN II-XII grossly intact Psychiatric exam: PRESENT: appropriate affect, normal mood Skin exam: PRESENT: dry, intact, warm. ABSENT: cyanosis, rash Results Laboratory Results: 09/25/19 10:10 09/25/19 10:10 09/25/19 09/25/19 09/25/19 10:10 10:10 12:00 WBC 12.3 H RBC 3.34 L Hgb 10.4 L Hct 29.2 L MCV 88 MCH 31.2 MCHC 35.6 RDW 16.9 H Plt Count 429 Seg Neutrophils % 62.4 VBG pH 7.20 L VBG pCO2 35.1 VBG HCO3 13.3 L VBG Base Excess -13.7 Sodium 130.7 L Potassium 6.6 H* Chloride 90 L Carbon Dioxide 13 L Anion Gap 28 H BUN 116 H Creatinine 13.45 H Est GFR ( Amer) 4 L Glucose 406 H* Calcium 5.2 L* Total Bilirubin 0.4 AST 17 Alkaline Phosphatase 153 H Total Protein 8.1 Albumin 4.3 Lipase 525.2 H Impressions: Abdomen/Pelvis CT 09/25/19 09:45 IMPRESSION: 1. No acute noncontrast CT findings of the abdomen or pelvis to explain left upper quadrant abdominal pain. 2. Stigmata of end-stage renal disease. Assessment & Plan - Diagnosis (1) DKA (diabetic ketoacidoses) Qualifiers: Diabetes mellitus type: type 1 Diabetes mellitus complication detail: without coma Qualified Code(s): E10.10 - Type 1 diabetes mellitus with ketoacidosis without coma Is this a current diagnosis for this admission?: Yes Plan: Patient presented with DKA, the abdominal pain, elevated serum lipase could be related to the DKA, clearly hemodialysis will help with management of DKA, she was started on low-dose insulin infusion in the emergency room (2) End-stage renal disease Is this a current diagnosis for this admission?: Yes (3) Serum lipase elevation Is this a current diagnosis for this admission?: Yes Plan: This is probably related to DKA
[2019-09-25] MEDS: FUROSEMIDE 80 MG TABLET PO SCH (22:22)
[2019-09-25] MEDS: OXCARBAZEPINE 150 MG TABLET PO SCH (22:22)
[2019-09-25] MEDS: NIFEDIPINE 30 MG TAB.ER.24 PO SCH (22:24)
[2019-09-25] MEDS: INSULIN LISPRO 100 UNIT/ML 3 ML VIAL SUBCUT SCH (22:24)
[2019-09-25] MEDS: INSULIN GLARGINE,HUM.REC.ANLOG 1,000 UNIT/10 ML VIAL SUBCUT SCH (22:25)
[2019-09-25] MEDS ORDERED: ONDANSETRON 4 MG TAB.RAPDIS ONE (22:52)
[2019-09-26] MEDS: FUROSEMIDE 80 MG TABLET PO SCH ×3 (06:13→21:44)
[2019-09-26] MEDS: INSULIN LISPRO 100 UNIT/ML 3 ML VIAL SUBCUT SCH ×4 (08:43→21:44)
[2019-09-26] MEDS: CALCIUM ACETATE 667 MG CAPSULE PO SCH ×3 (08:43→17:57)
--- NOTE | 2019-09-26 09:36 | EKG REPORT ---
SEVERITY:- ABNORMAL ECG - SINUS RHYTHM FIRST DEGREE AV BLOCK PROBABLE LEFT VENTRICULAR HYPERTROPHY PROLONGED QT INTERVAL : Confirmed by: Daniela Lemons 26-Sep-2019 09:35:41
[2019-09-26] MEDS ORDERED: (PENDING PHARMACY ID) (Insulin Detemir [Levemir] 35 UNIT) SQ SCH (10:00)
[2019-09-26] MEDS: ONDANSETRON 4 MG TAB.RAPDIS PO PRN ×2 (10:33→21:53)
[2019-09-26] MEDS: OXCARBAZEPINE 150 MG TABLET PO SCH ×2 (10:34→21:45)
[2019-09-26] MEDS: NIFEDIPINE 30 MG TAB.ER.24 PO SCH ×2 (10:34→21:45)
[2019-09-26] MEDS: OXYCODONE HCL IR 5 MG TABLET PO PRN ×2 (10:34→23:50)
[2019-09-26] MEDS: OXYCODONE-ACETAMINOPHEN 5-325 MG TABLET PO PRN ×3 (10:34→23:50)
[2019-09-26] MEDS: CALCIUM GLUCONATE 1000 MG/10 ML INJ IV SCH ×2 (10:35→17:56)
[2019-09-26] MEDS: CALCITRIOL 0.25 MCG CAPSULE PO SCH ×2 (10:35→17:57)
[2019-09-26] MEDS: INSULIN GLARGINE,HUM.REC.ANLOG 1,000 UNIT/10 ML VIAL SUBCUT SCH ×2 (10:35→21:44)
[2019-09-26 13:09] LABS: BLOOD UREA NITROGEN 88 mg/dL (7-20); CALCIUM 7.2 mg/dL (8.4-10.2); GLUCOSE 234 mg/dL (75-110)
[2019-09-26 13:15] LABS: CARBON DIOXIDE 17 mmol/L (22-30); CHLORIDE 95 mmol/L (98-107)
[2019-09-26 13:21] LABS: ANION GAP 25 (5-19)
[2019-09-26] MEDS: SODIUM POLYSTYRENE SULFONATE 15 GM/60 ML PO SCH ×2 (17:56→21:45)
--- NOTE | 2019-09-26 17:57 | PDOC PROGRESS REPORT ---
Subjective Progress Note for:: 09/26/19 Reason For Visit: Patient seen today. Still generally feeling better but complains of persistent diarrhea. Left upper abdominal pain is better and she says is now intermittent. No nausea vomiting. Complains of some pain around the the neck region. No radiation to the chest joint of the head. Headache is generally better. Symptoms to indicate tetany. Unfortunately no labs were donewe will order that. Physical Exam Vital Signs: Temp Pulse Resp BP Pulse Ox 97.8 F 86 17 128/83 H 98 09/26/19 10:29 09/26/19 14:47 09/26/19 14:47 09/26/19 14:47 09/26/19 14:47 Intake & Output 09/25/19 09/26/19 09/27/19 06:59 06:59 06:59 Intake Total 360 Output Total 4147 Balance -4147 360 Weight 121.9 kg General appearance: PRESENT: no acute distress Respiratory exam: PRESENT: clear to auscultation freddy, decreased breath sounds. ABSENT: crackles Cardiovascular exam: PRESENT: +S1, +S2 GI/Abdominal exam: PRESENT: normal bowel sounds, soft, tenderness - Mildly tender in the left upper quadrant.. ABSENT: organomegaly Extremities exam: PRESENT: pedal edema Neurological exam: PRESENT: alert, awake, oriented to person, oriented to place Results Laboratory Results: 09/25/19 10:10 09/26/19 12:37 09/26/19 09/26/19 12:37 12:37 Sodium 137.1 Potassium 6.0 H* Chloride 95 L Carbon Dioxide 17 L Anion Gap 25 H BUN 88 H Creatinine 11.23 H Est GFR ( Amer) 5 L Glucose 234 H Calcium 7.2 L Lipase 487.9 H PTH Intact 1563.0 H Impressions: Abdomen/Pelvis CT 09/25/19 09:45 IMPRESSION: 1. No acute noncontrast CT findings of the abdomen or pelvis to explain left upper quadrant abdominal pain. 2. Stigmata of end-stage renal disease. Assessment & Plan - Diagnosis (1) Hyperkalemia Plan: She was dialyzed yesterday. Will repeat labs today to see what the status of her potassium. Is due for dialysis again tomorrow. (2) Hypocalcemia Plan: She was getting [id number] IV calcium and have begun her on calcitriol. She has a history of noncompliance with her calcitriol as an outpatient is unfortunate. I will get her PTH levels done as well to see what is the status of that. Meanwhile repeat labs to see what is the level of calcium today as compared to yesterday of 5. (3) ESRD (end stage renal disease) Plan: She was dialyzed yesterday and will repeat dialysis again tomorrow. No acute indications for dialysing her today. (4) Acute pancreatitis Qualifiers: Pancreatitis type: unspecified pancreatitis type Acute pancreatitis complication: unspecified Qualified Code(s): K85.90 - Acute pancreatitis w ithout necrosis or infection, unspecified Plan: We will follow-up on the serum lipase to guide us for management. Further evaluations and management from Dr. Singleton.Further studies might need to see if there is any apparent treatable causes of pancreatitis. (5) Abdominal pain Qualifiers: Abdominal location: unspecified location Qualified Code(s): R10.9 - Unspecified abdominal pain Plan: Apparently some better and now is rather intermittent. Follow-up on lipase l evels serially. (6) Anemia in chronic kidney disease (CKD) Qualifiers: Chronic kidney disease stage: on chronic dialysis Qualified Code(s): N18.6 - End stage renal disease; D63.1 - Anemia in chronic kidney disease; Z99.2 - Dependence on renal dialysis Plan: Monitor. (7) Diabetes mellitus type 1 Qualifiers: Plan: Advised tight control (8) Hypertension Qualifiers: Hypertension type: unspecified Qualified Code(s): I10 - Essential (primary) hypertension Plan: Under good control. (9) Morbid obesity Plan: Unfortunately patient has been gaining a lot of weight. Besides that she has got symptoms that are suggestive of sleep apnea as well.
[2019-09-26] MEDS: PAROXETINE HCL 20 MG TABLET PO SCH (17:58)
[2019-09-26 19:32] LABS: ABSOLUTE BASOPHILS # (AUTO) 0.1 10^3/uL (0.0-0.2); ABSOLUTE EOSINOPHILS # (AUTO) 0.6 10^3/uL (0.0-0.6); ABSOLUTE LYMPHOCYTES (AUTO) 2.4 10^3/uL (0.5-4.7); ABSOLUTE MONOCYTES (AUTO) 0.7 10^3/uL (0.1-1.4); ABSOLUTE NEUT (AUTO) 4.3 10^3/uL (1.7-8.2); BASOPHILS % (AUTO) 1.1 % (0-2); EOSINOPHILS % (AUTO) 6.9 % (0-6); HEMATOCRIT 31.9 % (36.0-47.0); HEMOGLOBIN 10.6 g/dL (12.0-15.5); LYMPHOCYTES % (AUTO) 29.3 % (13-45); MEAN CORPUSCULAR HEMOGLOBIN 28.5 pg (27.0-33.4); MEAN CORPUSCULAR HGB CONC 33.3 g/dL (32.0-36.0); MEAN CORPUSCULAR VOLUME 86 fl (80-97); PLATELET COUNT 384 10^3/uL (150-450); RED BLOOD COUNT 3.73 10^6/uL (3.72-5.28); RED CELL DISTRIBUTION WIDTH 17.3 % (11.5-14.0); SEGMENTED NEUTROPHILS % (AUTO) 53.7 % (42-78); TOTAL CELLS COUNTED % (AUTO) 100 %
[2019-09-26 20:06] LABS: BLOOD UREA NITROGEN 90 mg/dL (7-20); CALCIUM 7.2 mg/dL (8.4-10.2); GLUCOSE 251 mg/dL (75-110); POTASSIUM 5.6 mmol/L (3.6-5.0)
[2019-09-26 20:12] LABS: CARBON DIOXIDE 21 mmol/L (22-30); CHLORIDE 91 mmol/L (98-107)
[2019-09-26 20:17] LABS: ANION GAP 22 (5-19)
--- NOTE | 2019-09-26 21:08 | PDOC PROGRESS REPORT ---
Subjective Progress Note for:: 09/26/19 Subjective:: Patient seen by the bedside, she complained of nasal congestion, enlarged cervical lymph nodes Reason For Visit: ACUTE PANCREATITIS,DIARRHEA Physical Exam Vital Signs: Temp Pulse Resp BP Pulse Ox 97.8 F 91 16 165/78 H 97 09/26/19 19:38 09/26/19 19:38 09/26/19 19:38 09/26/19 19:38 09/26/19 19:38 Intake & Output 09/25/19 09/26/19 09/27/19 06:59 06:59 06:59 Intake Total 360 Output Total 4147 Balance -4147 360 Weight 121.9 kg General appearance: PRESENT: no acute distress Eye exam: PRESENT: PERRLA Neck exam: PRESENT: lymphadenopathy Cardiovascular exam: PRESENT: +S1, +S2 GI/Abdominal exam: PRESENT: soft Neurological exam: PRESENT: alert, CN II-XII grossly intact Results Laboratory Results: 09/26/19 19:26 09/26/19 19:26 09/26/19 09/26/19 09/26/19 12:37 12:37 19:26 WBC 8.0 RBC 3.73 Hgb 10.6 L Hct 31.9 L MCV 86 MCH 28.5 MCHC 33.3 RDW 17.3 H Plt Count 384 Seg Neutrophils % 53.7 Sodium 137.1 Potassium 6.0 H* Chloride 95 L Carbon Dioxide 17 L Anion Gap 25 H BUN 88 H Creatinine 11.23 H Est GFR ( Amer) 5 L Glucose 234 H Calcium 7.2 L Lipase 487.9 H PTH Intact 1563.0 H 09/26/19 19:26 WBC RBC Hgb Hct MCV MCH MCHC RDW Plt Count Seg Neutrophils % Sodium 133.9 L Potassium 5.6 H Chloride 91 L Carbon Dioxide 21 L Anion Gap 22 H BUN 90 H Creatinine 11.75 H Est GFR ( Amer) 4 L Glucose 251 H Calcium 7.2 L Lipase PTH Intact Impressions: Abdomen/Pelvis CT 09/25/19 09:45 IMPRESSION: 1. No acute noncontrast CT findings of the abdomen or pelvis to explain left upper quadrant abdominal pain. 2. Stigmata of end-stage renal disease. Assessment & Plan - Diagnosis (1) DKA (diabetic ketoacidoses) Qualifiers: Diabetes mellitus type: type 1 Diabetes mellitus complication detail: without coma Qualified Code(s): E10.10 - Type 1 diabetes mellitus with ketoacidosis without coma Is this a current diagnosis for this admission?: Yes Plan: This is resolved (2) End-stage renal disease Is this a current diagnosis for this admission?: Yes Plan: Per nephrology (3) Serum lipase elevation Is this a current diagnosis for this admission?: Yes Plan: Improving (4) Acute sinusitis Qualifiers: Sinusitis location: unspecified location Recurrence: not specified as recurrent Qualified Code(s): J01.90 - Acute sinusitis, unspecified Is this a current diagnosis for this admission?: Yes Plan: Start Claritin - Time Time Spent with patient: 35 or more minutes Level of Care: CU
[2019-09-26] MEDS: LORATADINE 10 MG TABLET PO SCH (22:15)
[2019-09-27] MEDS: SODIUM POLYSTYRENE SULFONATE 15 GM/60 ML PO SCH ×2 (02:09)
[2019-09-27] MEDS: GABAPENTIN 100 MG CAPSULE PO SCH ×4 (05:09→22:01)
[2019-09-27] MEDS: FUROSEMIDE 80 MG TABLET PO SCH ×3 (05:10→22:01)
[2019-09-27 05:24] LABS: HEMATOCRIT 29.6 % (36.0-47.0); HEMOGLOBIN 9.9 g/dL (12.0-15.5); MEAN CORPUSCULAR HEMOGLOBIN 28.6 pg (27.0-33.4); MEAN CORPUSCULAR HGB CONC 33.5 g/dL (32.0-36.0); MEAN CORPUSCULAR VOLUME 85 fl (80-97); PLATELET COUNT 391 10^3/uL (150-450); RED BLOOD COUNT 3.47 10^6/uL (3.72-5.28); RED CELL DISTRIBUTION WIDTH 16.9 % (11.5-14.0); WHITE BLOOD COUNT 8.6 10^3/uL (4.0-10.5)
[2019-09-27 05:45] LABS: BLOOD UREA NITROGEN 100 mg/dL (7-20); CHLORIDE 91 mmol/L (98-107); GLUCOSE 282 mg/dL (75-110); PHOSPHORUS 11.1 mg/dL (2.5-4.5)
[2019-09-27 05:50] LABS: CARBON DIOXIDE 20 mmol/L (22-30)
[2019-09-27 06:00] LABS: ANION GAP 23 (5-19); POTASSIUM 4.5 mmol/L (3.6-5.0)
[2019-09-27 06:02] LABS: CALCIUM 6.5 mg/dL (8.4-10.2)
[2019-09-27] MEDS: OXYCODONE HCL IR 5 MG TABLET PO PRN ×3 (07:43→19:56)
[2019-09-27] MEDS: OXYCODONE-ACETAMINOPHEN 5-325 MG TABLET PO PRN ×3 (07:44→19:55)
[2019-09-27] MEDS: INSULIN LISPRO 100 UNIT/ML 3 ML VIAL SUBCUT SCH ×4 (07:45→22:02)
[2019-09-27] MEDS: CALCIUM ACETATE 667 MG CAPSULE PO SCH ×3 (07:45→16:33)
[2019-09-27] MEDS ORDERED: HEPARIN SOD (PORCINE) 1,000 UNIT/ML 10 ML VIAL IV PRN ×2 (09:25→10:04)
[2019-09-27] MEDS ORDERED: EPOETIN ALFA-EPBX 2,000 UNIT, EPOETIN ALFA-EPBX 3,000 UNIT in SYRINGE, DISPOSABLE, 1 EACH IV PRN (09:25)
[2019-09-27] MEDS ORDERED: CALCIUM GLUCONATE 2,222 MG in DEXTROSE 5%-WATER 100 ML IV ONE (09:30)
[2019-09-27] MEDS: CALCIUM GLUCONATE 1000 MG/10 ML INJ IV SCH ×2 (09:59→18:24)
[2019-09-27] MEDS ORDERED: (PENDING PHARMACY ID) (Gabapentin Enacarbil [Horizant] 300 MG) PO SCH (10:00)
[2019-09-27] MEDS: OXCARBAZEPINE 150 MG TABLET PO SCH ×2 (11:08→22:02)
[2019-09-27] MEDS: CALCITRIOL 0.25 MCG CAPSULE PO SCH ×2 (11:08→18:25)
[2019-09-27] MEDS: INSULIN GLARGINE,HUM.REC.ANLOG 1,000 UNIT/10 ML VIAL SUBCUT SCH ×2 (11:09→22:02)
[2019-09-27] MEDS: LORATADINE 10 MG TABLET PO SCH (11:09)
--- NOTE | 2019-09-27 11:17 | PDOC PROGRESS REPORT ---
Subjective Progress Note for:: 09/27/19 Reason For Visit: Patient was seen today while undergoing dialysis. Patient looks comfortable and in no distress. She has some headaches she complains of denies any history of chest pains or shortness of breath. Abdominal pain is better. Labs and medications were reviewed. No signs and symptoms to indicate tetany. Dialysis orders were reviewed with the treating dialysis nurse Physical Exam Vital Signs: Temp Pulse Resp BP Pulse Ox 97.9 F 86 17 153/75 H 100 09/27/19 07:29 09/27/19 07:29 09/27/19 07:29 09/27/19 07:29 09/27/19 07:29 Intake & Output 09/26/19 09/27/19 09/28/19 06:59 06:59 06:59 Intake Total 360 Output Total 4147 Balance -4147 360 Weight 121.9 kg 123.6 kg General appearance: PRESENT: no acute distress Respiratory exam: PRESENT: clear to auscultation freddy, decreased breath sounds. ABSENT: crackles Cardiovascular exam: PRESENT: +S1, +S2 GI/Abdominal exam: PRESENT: normal bowel sounds, soft, tenderness - Mildly tender in the left upper quadrant.. ABSENT: organomegaly Extremities exam: PRESENT: pedal edema Neurological exam: PRESENT: alert, awake, oriented to person, oriented to place Psychiatric exam: PRESENT: appropriate affect Results Laboratory Results: 09/27/19 05:08 09/27/19 05:08 09/26/19 09/26/19 09/26/19 12:37 12:37 19:26 WBC 8.0 RBC 3.73 Hgb 10.6 L Hct 31.9 L MCV 86 MCH 28.5 MCHC 33.3 RDW 17.3 H Plt Count 384 Seg Neutrophils % 53.7 Sodium 137.1 Potassium 6.0 H* Chloride 95 L Carbon Dioxide 17 L Anion Gap 25 H BUN 88 H Creatinine 11.23 H Est GFR ( Amer) 5 L Glucose 234 H Calcium 7.2 L Ionized Calcium New Phosphorus Lipase 487.9 H PTH Intact 1563.0 H 09/26/19 09/27/19 09/27/19 19:26 05:08 05:08 WBC 8.6 RBC 3.47 L Hgb 9.9 L Hct 29.6 L MCV 85 MCH 28.6 MCHC 33.5 RDW 16.9 H Plt Count 391 Seg Neutrophils % Sodium 133.9 L 134.4 L Potassium 5.6 H 4.5 D Chloride 91 L 91 L Carbon Dioxide 21 L 20 L Anion Gap 22 H 23 H BUN 90 H 100 H Creatinine 11.75 H 12.89 H Est GFR ( Amer) 4 L 4 L Glucose 251 H 282 H Calcium 7.2 L 6.5 L* Ionized Calcium New Phosphorus 11.1 H Lipase PTH Intact 09/27/19 05:08 WBC RBC Hgb Hct MCV MCH MCHC RDW Plt Count Seg Neutrophils % Sodium Potassium Chloride Carbon Dioxide Anion Gap BUN Creatinine Est GFR ( Amer) Glucose Calcium Ionized Calcium New 0.79 L Phosphorus Lipase PTH Intact Impressions: Abdomen/Pelvis CT 09/25/19 09:45 IMPRESSION: 1. No acute noncontrast CT findings of the abdomen or pelvis to explain left upper quadrant abdominal pain. 2. Stigmata of end-stage renal disease. Assessment & Plan - Diagnosis (1) Hyperkalemia Plan: Hypertension of yesterday aspirin corrected with K with Kayexalate. See response to dialysis. We discussed the potassium issues with her again. (2) Hypocalcemia Plan: She is getting cheto-wsv-sdypu IV calcium and have begun her on calcitriol. She still has critically low calcium and I have ordered her bolus doses of calcium and again we will continue bgoblu-bqf-[id number] IV calcium replacements. I discussed at length the consequences of inadequate calcium intake. (3) ESRD (end stage renal disease) Plan: Patient seen on dialysis today. Vital signs are stable. Dialysis is being supervised to ensure safe and smooth procedure. She is on a 3 calcium bath while she is also getting IV calcium supplements.Plan to remove between 4-5 L as tolerated. Dialysis orders were reviewed with the treating dialysis nurse.. (4) Acute pancreatitis Qualifiers: Pancreatitis type: unspecified pancreatitis type Acute pancreatitis complication: unspecified Qualified Code(s): K85.90 - Acute pancreatitis without necrosis or infection, unspecified Plan: Per Dr. Singleton. Clinically better. (5) Abdominal pain Qualifiers: Abdominal location: unspecified location Qualified Code(s): R10.9 - Unspecified abdominal pain Plan: Improving. (6) Anemia in chronic kidney disease (CKD) Qualifiers: Chronic kidney disease stage: on chronic dialysis Qualified Code(s): N18.6 - End stage renal disease; D63.1 - Anemia in chronic kidney disease; Z99.2 - Dependence on renal dialysis Plan: Monitor.Adjust erythropoietin. (7) Diabetes mellitus type 1 Qualifiers: Diabetes mellitus complication status: with ketoacidosis Plan: Advised tight control (8) Hypertension Qualifiers: Hypertension type: unspecified Qualified Code(s): I10 - Essential (primary) hypertension Plan: Under good control. (9) Morbid obesity Plan: Status quo.
--- NOTE | 2019-09-27 13:13 | PDOC PROGRESS REPORT ---
Subjective Progress Note for:: 09/27/19 Subjective:: She was seen by the bedside, she has non specific lymphadenitis of the neck Reason For Visit: ACUTE PANCREATITIS,DIARRHEA Physical Exam Vital Signs: Temp Pulse Resp BP Pulse Ox 97.9 F 86 17 153/75 H 100 09/27/19 07:29 09/27/19 07:29 09/27/19 07:29 09/27/19 07:29 09/27/19 07:29 Intake & Output 09/26/19 09/27/19 09/28/19 06:59 06:59 06:59 Intake Total 360 Output Total 4147 Balance -4147 360 Weight 121.9 kg 123.6 kg General appearance: PRESENT: no acute distress Eye exam: PRESENT: PERRLA Neck exam: PRESENT: lymphadenopathy Respiratory exam: PRESENT: clear to auscultation freddy Cardiovascular exam: PRESENT: +S1, +S2 Neurological exam: PRESENT: alert Results Laboratory Results: 09/27/19 05:08 09/27/19 05:08 09/26/19 09/26/19 09/26/19 12:37 12:37 19:26 WBC 8.0 RBC 3.73 Hgb 10.6 L Hct 31.9 L MCV 86 MCH 28.5 MCHC 33.3 RDW 17.3 H Plt Count 384 Seg Neutrophils % 53.7 Sodium 137.1 Potassium 6.0 H* Chloride 95 L Carbon Dioxide 17 L Anion Gap 25 H BUN 88 H Creatinine 11.23 H Est GFR ( Amer) 5 L Glucose 234 H Calcium 7.2 L Ionized Calcium New Phosphorus Lipase 487.9 H PTH Intact 1563.0 H 09/26/19 09/27/19 09/27/19 19:26 05:08 05:08 WBC 8.6 RBC 3.47 L Hgb 9.9 L Hct 29.6 L MCV 85 MCH 28.6 MCHC 33.5 RDW 16.9 H Plt Count 391 Seg Neutrophils % Sodium 133.9 L 134.4 L Potassium 5.6 H 4.5 D Chloride 91 L 91 L Carbon Dioxide 21 L 20 L Anion Gap 22 H 23 H BUN 90 H 100 H Creatinine 11.75 H 12.89 H Est GFR ( Amer) 4 L 4 L Glucose 251 H 282 H Calcium 7.2 L 6.5 L* Ionized Calcium New Phosphorus 11.1 H Lipase PTH Intact 09/27/19 05:08 WBC RBC Hgb Hct MCV MCH MCHC RDW Plt Count Seg Neutrophils % Sodium Potassium Chloride Carbon Dioxide Anion Gap BUN Creatinine Est GFR ( Amer) Glucose Calcium Ionized Calcium New 0.79 L Phosphorus Lipase PTH Intact Impressions: Abdomen/Pelvis CT 09/25/19 09:45 IMPRESSION: 1. No acute noncontrast CT findings of the abdomen or pelvis to explain left upper quadrant abdominal pain. 2. Stigmata of end-stage renal disease. Assessment & Plan - Diagnosis (1) DKA (diabetic ketoacidoses) Qualifiers: Diabetes mellitus type: type 1 Diabetes mellitus complication detail: without coma Qualified Code(s): E10.10 - Type 1 diabetes mellitus with ketoacidosis without coma Is this a current diagnosis for this admission?: Yes (2) End-stage renal disease Is this a current diagnosis for this admission?: Yes (3) Serum lipase elevation Is this a current diagnosis for this admission?: Yes (4) Acute sinusitis Qualifiers: Sinusitis location: unspecified location Recurrence: not specified as recurrent Qualified Code(s): J01.90 - Acute sinusitis, unspecified Is this a current diagnosis for this admission?: Yes (5) Lymphadenitis Is this a current diagnosis for this admission?: Yes Plan: Start azithromycin 500 mg p.o. daily - Time Time Spent with patient: 35 or more minutes
[2019-09-27] MEDS: NIFEDIPINE 30 MG TAB.ER.24 PO SCH ×2 (13:18→22:01)
[2019-09-27] MEDS: AZITHROMYCIN 250 MG TABLET PO SCH (15:29)
[2019-09-27] MEDS: PAROXETINE HCL 20 MG TABLET PO SCH (18:25)
[2019-09-27] MEDS: ONDANSETRON 4 MG TAB.RAPDIS PO PRN (19:55)
[2019-09-28] MEDS: FUROSEMIDE 80 MG TABLET PO SCH ×3 (05:45→22:18)
[2019-09-28] MEDS: OXYCODONE HCL IR 5 MG TABLET PO PRN (05:46)
[2019-09-28] MEDS: OXYCODONE-ACETAMINOPHEN 5-325 MG TABLET PO PRN ×2 (05:47→19:26)
[2019-09-28] MEDS: ONDANSETRON 4 MG TAB.RAPDIS PO PRN (05:50)
[2019-09-28 06:11] LABS: ANION GAP 19 (5-19); CARBON DIOXIDE 25 mmol/L (22-30); CHLORIDE 93 mmol/L (98-107); GLUCOSE 165 mg/dL (75-110); POTASSIUM 4.1 mmol/L (3.6-5.0)
[2019-09-28 06:27] LABS: BLOOD UREA NITROGEN 68 mg/dL (7-20)
[2019-09-28] MEDS: INSULIN LISPRO 100 UNIT/ML 3 ML VIAL SUBCUT SCH ×4 (08:06→22:17)
[2019-09-28] MEDS: CALCIUM ACETATE 667 MG CAPSULE PO SCH ×3 (08:09→17:39)
[2019-09-28] MEDS: CALCITRIOL 0.25 MCG CAPSULE PO SCH ×2 (09:48→17:40)
[2019-09-28] MEDS: NIFEDIPINE 30 MG TAB.ER.24 PO SCH ×2 (09:48→22:18)
[2019-09-28] MEDS: OXCARBAZEPINE 150 MG TABLET PO SCH ×2 (09:48→22:18)
[2019-09-28] MEDS: CALCIUM GLUCONATE 1000 MG/10 ML INJ IV SCH ×2 (09:49→17:40)
[2019-09-28] MEDS: LORATADINE 10 MG TABLET PO SCH (09:49)
[2019-09-28] MEDS: AZITHROMYCIN 250 MG TABLET PO SCH (09:49)
[2019-09-28] MEDS: INSULIN GLARGINE,HUM.REC.ANLOG 1,000 UNIT/10 ML VIAL SUBCUT SCH ×2 (09:49→22:17)
--- NOTE | 2019-09-28 16:57 | PDOC PROGRESS REPORT ---
Subjective Progress Note for:: 09/28/19 Subjective:: Patient had dialysis today she has cervical adenopathy, started empirically on azithromycin Reason For Visit: ACUTE PANCREATITIS,DIARRHEA Physical Exam Vital Signs: Temp Pulse Resp BP Pulse Ox 98.1 F 90 16 147/83 H 96 09/28/19 03:07 09/28/19 14:00 09/28/19 03:07 09/28/19 03:07 09/28/19 03:07 Intake & Output 09/27/19 09/28/19 09/29/19 06:59 06:59 06:59 Intake Total 360 480 Output Total 3400 Balance 360 -2920 Weight 123.6 kg 123 kg General appearance: PRESENT: no acute distress Eye exam: PRESENT: PERRLA Respiratory exam: PRESENT: clear to auscultation freddy Cardiovascular exam: PRESENT: +S1, +S2 GI/Abdominal exam: PRESENT: soft Results Laboratory Results: 09/27/19 05:08 09/28/19 05:00 09/28/19 05:00 Sodium 136.7 L Potassium 4.1 Chloride 93 L Carbon Dioxide 25 Anion Gap 19 BUN 68 H D Creatinine 10.61 H Est GFR ( Amer) 5 L Glucose 165 H Calcium 8.0 L Impressions: Abdomen/Pelvis CT 09/25/19 09:45 IMPRESSION: 1. No acute noncontrast CT findings of the abdomen or pelvis to explain left upper quadrant abdominal pain. 2. Stigmata of end-stage renal disease. Assessment & Plan - Diagnosis (1) DKA (diabetic ketoacidoses) Qualifiers: Diabetes mellitus type: type 1 Diabetes mellitus complication detail: without coma Qualified Code(s): E10.10 - Type 1 diabetes mellitus with ketoacidosis without coma Is this a current diagnosis for this admission?: Yes (2) End-stage renal disease Is this a current diagnosis for this admission?: Yes (3) Serum lipase elevation Is this a current diagnosis for this admission?: Yes (4) Acute sinusitis Qualifiers: Sinusitis location: unspecified location Recurrence: not specified as recurrent Qualified Code(s): J01.90 - Acute sinusitis, unspecified Is this a current diagnosis for this admission?: Yes (5) Lymphadenitis Is this a current diagnosis for this admission?: Yes - Time Time Spent with patient: 15-24 minutes
[2019-09-28] MEDS: PAROXETINE HCL 20 MG TABLET PO SCH (17:39)
[2019-09-28] MEDS: BUTALB/ACETAMINOPHEN/CAFFEINE 1 TAB EACH PO PRN ×2 (17:39→22:18)
[2019-09-28] MEDS ORDERED: EPOETIN ALFA-EPBX 2,000 UNIT, EPOETIN ALFA-EPBX 3,000 UNIT in SYRINGE, DISPOSABLE, 1 EACH IV PRN (21:08)
[2019-09-29] MEDS: OXYCODONE-ACETAMINOPHEN 5-325 MG TABLET PO PRN (01:22)
[2019-09-29] MEDS ORDERED: HEPARIN SOD (PORCINE) 1,000 UNIT/ML 10 ML VIAL IV PRN (05:00)
[2019-09-29] MEDS: FUROSEMIDE 80 MG TABLET PO SCH ×3 (05:34→21:22)
[2019-09-29 05:42] LABS: ABSOLUTE BASOPHILS # (AUTO) 0.1 10^3/uL (0.0-0.2); ABSOLUTE EOSINOPHILS # (AUTO) 0.6 10^3/uL (0.0-0.6); ABSOLUTE LYMPHOCYTES (AUTO) 2.8 10^3/uL (0.5-4.7); ABSOLUTE MONOCYTES (AUTO) 0.9 10^3/uL (0.1-1.4); ABSOLUTE NEUT (AUTO) 3.8 10^3/uL (1.7-8.2); BASOPHILS % (AUTO) 0.8 % (0-2); EOSINOPHILS % (AUTO) 6.9 % (0-6); HEMATOCRIT 30.7 % (36.0-47.0); MEAN CORPUSCULAR HGB CONC 32.7 g/dL (32.0-36.0); MEAN CORPUSCULAR VOLUME 86 fl (80-97); MONOCYTES % (AUTO) 10.5 % (3-13); PLATELET COUNT 335 10^3/uL (150-450); RED BLOOD COUNT 3.58 10^6/uL (3.72-5.28); RED CELL DISTRIBUTION WIDTH 16.4 % (11.5-14.0); SEGMENTED NEUTROPHILS % (AUTO) 46.8 % (42-78); TOTAL CELLS COUNTED % (AUTO) 100 %; WHITE BLOOD COUNT 8.1 10^3/uL (4.0-10.5)
[2019-09-29 05:58] LABS: BLOOD UREA NITROGEN 86 mg/dL (7-20); GLUCOSE 113 mg/dL (75-110); PHOSPHORUS 10.3 mg/dL (2.5-4.5); POTASSIUM 4.9 mmol/L (3.6-5.0)
[2019-09-29 06:04] LABS: CARBON DIOXIDE 20 mmol/L (22-30); CHLORIDE 95 mmol/L (98-107)
[2019-09-29 06:07] LABS: ANION GAP 23 (5-19)
[2019-09-29] MEDS: INSULIN LISPRO 100 UNIT/ML 3 ML VIAL SUBCUT SCH ×4 (07:41→21:27)
[2019-09-29] MEDS: CALCIUM ACETATE 667 MG CAPSULE PO SCH ×3 (07:42→17:41)
[2019-09-29] MEDS: CALCIUM GLUCONATE 1000 MG/10 ML INJ IV SCH ×2 (10:01→11:49)
[2019-09-29] MEDS ORDERED: DIPHENHYDRAMINE HCL 50 MG/ML VIAL IV ONE (11:00)
--- NOTE | 2019-09-29 12:01 | PDOC PROGRESS REPORT ---
Subjective Progress Note for:: 09/29/19 Subjective:: I am seeing the patient on dialysis this morning. She is complaining of headache and some itching. Her blood pressure is on the low side so were decreasing ultrafiltration rate. Otherwise she denies any chest pains no shortness of breath. Reason For Visit: ACUTE PANCREATITIS,DIARRHEA Physical Exam Vital Signs: Temp Pulse Resp BP Pulse Ox 97.9 F 93 16 147/75 H 94 09/29/19 07:28 09/29/19 07:28 09/29/19 07:28 09/29/19 07:28 09/29/19 07:28 Intake & Output 09/28/19 09/29/19 09/30/19 06:59 06:59 06:59 Intake Total 480 1310 Output Total 3400 0 Balance -2920 1310 Weight 123 kg 125.1 kg Vitals during dialysis: Blood pressure 106/54, heart rate of 102, blood flow rate of 350 mL/min and dialysate flow rate of 800 mL/min. Exam: General appearance: PRESENT: no acute distress, cooperative, well-developed, well-nourished Head exam: PRESENT: atraumatic, normocephalic Eye exam: PRESENT: conjunctiva pink, PERRLA. ABSENT: scleral icterus Neck exam: ABSENT: JVD Respiratory exam: PRESENT: Normal breath sounds. ABSENT: crackles, rales, rhonchi, unlabored, wheezes Cardiovascular exam: PRESENT: Regular rate rhythm -+S1, +S2. ABSENT: diastolic murmur, systolic murmur GI/Abdominal exam: PRESENT: normal bowel sounds, soft. ABSENT: guarding, mass, tenderness Extremities exam: ABSENT: No edema Neurological exam: PRESENT: alert, awake, oriented to person, place and time. Skin exam: PRESENT: dry, warm, Cardiovascular exam: PRESENT: +S1, +S2 GI/Abdominal exam: PRESENT: normal bowel sounds, soft, tenderness - Mildly tender in the left upper quadrant.. ABSENT: organomegaly Results Laboratory Results: 09/29/19 04:57 09/29/19 04:57 09/29/19 09/29/19 04:57 04:57 WBC 8.1 RBC 3.58 L Hgb 10.0 L Hct 30.7 L MCV 86 MCH 28.0 MCHC 32.7 RDW 16.4 H Plt Count 335 Seg Neutrophils % 46.8 Sodium 138.3 Potassium 4.9 Chloride 95 L Carbon Dioxide 20 L Anion Gap 23 H BUN 86 H Creatinine 13.29 H Est GFR ( Amer) 4 L Glucose 113 H Calcium 8.0 L Phosphorus 10.3 H Magnesium 2.3 Impressions: Abdomen/Pelvis CT 09/25/19 09:45 IMPRESSION: 1. No acute noncontrast CT findings of the abdomen or pelvis to explain left upper quadrant abdominal pain. 2. Stigmata of end-stage renal disease. Assessment & Plan - Diagnosis (1) Acute pancreatitis Qualifiers: Pancreatitis type: unspecified pancreatitis type Acute pancreatitis complication: unspecified Qualified Code(s): K85.90 - Acute pancreatitis without necrosis or infection, unspecified Is this a current diagnosis for this admission?: Yes Plan: Abdominal pain has resolved. Management per Dr. Singleton. (2) End stage renal disease on dialysis Is this a current diagnosis for this admission?: Yes Plan: We will do dialysis today for 3.5 hours, using the patient's AV fistula, with 2 potassium bath, blood flow rate of 350 mL per minute, dialysate flow rate of 800 mL per minute, ultrafiltration 4 to 5 L as tolerated, low-dose heparin and Procrit with 5000 units during dialysis intravenously. Due to relative hypotension we will adjust ultrafiltration accordingly. We will also give the patient Benadryl 12.5 mg IV for the pruritus. (3) Anemia in chronic kidney disease (CKD) Qualifiers: Chronic kidney disease stage: on chronic dialysis Qualified Code(s): N18.6 - End stage renal disease; D63.1 - Anemia in chronic kidney disease; Z99.2 - Dependence on renal dialysis Is this a current diagnosis for this admission?: Yes Plan: We will give Procrit during dialysis as above. (4) Diabetes mellitus type 1 Qualifiers: Diabetes mellitus complication status: with ketoacidosis Is this a current diagnosis for this admission?: Yes (5) Hyperphosphatemia Is this a current diagnosis for this admission?: Yes Plan: Her severe hyperphosphatemia is likely due to noncompliance with diet and med ications. This is causing her hypocalcemia. We will continue to encourage compliance. (6) Hypocalcemia Is this a current diagnosis for this admission?: Yes Plan: Will discontinue IV calcium gluconate after dialysis. Needs to control phosphorus. (7) Hypertension Qualifiers: Is this a current diagnosis for this admission?: Yes (8) Metabolic acidosis Is this a current diagnosis for this admission?: Yes Plan: Mild, should improve with dialysis. - Time Time with patient: 15-25 minutes
[2019-09-29] MEDS: INSULIN GLARGINE,HUM.REC.ANLOG 1,000 UNIT/10 ML VIAL SUBCUT SCH ×2 (13:19→21:23)
[2019-09-29] MEDS: OXCARBAZEPINE 150 MG TABLET PO SCH ×2 (13:20→21:22)
[2019-09-29] MEDS: NIFEDIPINE 30 MG TAB.ER.24 PO SCH ×2 (13:20→21:22)
[2019-09-29] MEDS: BUTALB/ACETAMINOPHEN/CAFFEINE 1 TAB EACH PO PRN ×2 (13:20→22:14)
[2019-09-29] MEDS: AZITHROMYCIN 250 MG TABLET PO SCH (13:21)
[2019-09-29] MEDS: LORATADINE 10 MG TABLET PO SCH (13:21)
[2019-09-29] MEDS: CALCITRIOL 0.25 MCG CAPSULE PO SCH ×2 (13:21→17:41)
--- NOTE | 2019-09-29 17:29 | PDOC PROGRESS REPORT ---
Subjective Progress Note for:: 09/29/19 Subjective:: Patient had dialysis today she has cervical adenopathy, started empirically on azithromycin Reason For Visit: ACUTE PANCREATITIS,DIARRHEA Physical Exam Vital Signs: Temp Pulse Resp BP Pulse Ox 97.9 F 95 16 147/75 H 94 09/29/19 07:28 09/29/19 14:00 09/29/19 07:28 09/29/19 07:28 09/29/19 07:28 Intake & Output 09/28/19 09/29/19 09/30/19 06:59 06:59 06:59 Intake Total 480 1310 360 Output Total 3400 0 4500 Balance -2920 1310 -4140 Weight 123 kg 125.1 kg General appearance: PRESENT: no acute distress Eye exam: PRESENT: PERRLA Respiratory exam: PRESENT: clear to auscultation freddy Cardiovascular exam: PRESENT: +S1, +S2 GI/Abdominal exam: PRESENT: soft Neurological exam: PRESENT: alert, CN II-XII grossly intact Results Laboratory Results: 09/29/19 04:57 09/29/19 04:57 09/29/19 09/29/19 04:57 04:57 WBC 8.1 RBC 3.58 L Hgb 10.0 L Hct 30.7 L MCV 86 MCH 28.0 MCHC 32.7 RDW 16.4 H Plt Count 335 Seg Neutrophils % 46.8 Sodium 138.3 Potassium 4.9 Chloride 95 L Carbon Dioxide 20 L Anion Gap 23 H BUN 86 H Creatinine 13.29 H Est GFR ( Amer) 4 L Glucose 113 H Calcium 8.0 L Phosphorus 10.3 H Magnesium 2.3 Impressions: Abdomen/Pelvis CT 09/25/19 09:45 IMPRESSION: 1. No acute noncontrast CT findings of the abdomen or pelvis to explain left upper quadrant abdominal pain. 2. Stigmata of end-stage renal disease. Assessment & Plan - Diagnosis (1) DKA (diabetic ketoacidoses) Qualifiers: Diabetes mellitus type: type 1 Diabetes mellitus complication detail: without coma Qualified Code(s): E10.10 - Type 1 diabetes mellitus with ketoacidosis without coma Is this a current diagnosis for this admission?: Yes (2) End-stage renal disease Is this a current diagnosis for this admission?: Yes (3) Serum lipase elevation Is this a current diagnosis for this admission?: Yes (4) Acute sinusitis Qualifiers: Sinusitis location: unspecified location Recurrence: not specified as recurrent Qualified Code(s): J01.90 - Acute sinusitis, unspecified Is this a current diagnosis for this admission?: Yes (5) Lymphadenitis Is this a current diagnosis for this admission?: Yes - Time Time Spent with patient: 25-34 minutes - Plan Summary Plan Summary: Continue treatment
[2019-09-29] MEDS: PAROXETINE HCL 20 MG TABLET PO SCH (17:41)
[2019-09-29] MEDS: GABAPENTIN 100 MG CAPSULE PO SCH (21:22)
[2019-09-30] MEDS: FUROSEMIDE 80 MG TABLET PO SCH ×3 (05:12→22:18)
[2019-09-30] MEDS: CALCIUM ACETATE 667 MG CAPSULE PO SCH ×3 (08:31→17:43)
[2019-09-30] MEDS: INSULIN LISPRO 100 UNIT/ML 3 ML VIAL SUBCUT SCH ×4 (08:31→22:19)
[2019-09-30] MEDS: OXYCODONE-ACETAMINOPHEN 5-325 MG TABLET PO PRN (08:36)
[2019-09-30] MEDS: LORATADINE 10 MG TABLET PO SCH (10:06)
[2019-09-30] MEDS: NIFEDIPINE 30 MG TAB.ER.24 PO SCH ×2 (10:06→22:18)
[2019-09-30] MEDS: AZITHROMYCIN 250 MG TABLET PO SCH (10:06)
[2019-09-30] MEDS: OXCARBAZEPINE 150 MG TABLET PO SCH ×2 (10:06→22:18)
[2019-09-30] MEDS: INSULIN GLARGINE,HUM.REC.ANLOG 1,000 UNIT/10 ML VIAL SUBCUT SCH ×2 (10:06→22:30)
[2019-09-30] MEDS: CALCITRIOL 0.25 MCG CAPSULE PO SCH ×2 (10:06→17:47)
--- NOTE | 2019-09-30 10:54 | PDOC PROGRESS REPORT ---
Subjective Progress Note for:: 09/30/19 Subjective:: Patient is currently doing well Patient had a very recurrent hospital admissions due to the noncompliance Patient's dialyzed yesterday Patient's blood sugar is all stable Denied any chest pain to than any shortness of the breath Patient is walking the hallway Reason For Visit: ACUTE PANCREATITIS,DIARRHEA Physical Exam Vital Signs: Temp Pulse Resp BP Pulse Ox 98.2 F 94 16 137/84 H 94 09/30/19 07:53 09/30/19 07:53 09/30/19 07:53 09/30/19 07:53 09/30/19 07:53 Intake & Output 09/29/19 09/30/19 10/01/19 06:59 06:59 06:59 Intake Total 1310 360 Output Total 0 4500 Balance 1310 -4140 Weight 125.1 kg 121 kg General appearance: PRESENT: no acute distress, well-developed, well-nourished Head exam: PRESENT: atraumatic, normocephalic Eye exam: PRESENT: conjunctiva pink, EOMI, PERRLA. ABSENT: scleral icterus Ear exam: PRESENT: normal external ear exam Mouth exam: PRESENT: moist, tongue midline Neck exam: PRESENT: full ROM. ABSENT: carotid bruit, JVD, lymphadenopathy, thyromegaly Respiratory exam: PRESENT: clear to auscultation freddy Cardiovascular exam: PRESENT: RRR. ABSENT: diastolic murmur, rubs, systolic murmur Pulses: PRESENT: normal dorsalis pedis pul, +2 pedal pulses bilateral Vascular exam: PRESENT: normal capillary refill GI/Abdominal exam: PRESENT: normal bowel sounds, soft. ABSENT: distended, guarding, mass, organolmegaly, rebound, tenderness Rectal exam: PRESENT: deferred Musculoskeletal exam: PRESENT: ambulatory Neurological exam: PRESENT: alert, awake, oriented to person, oriented to place, oriented to time, oriented to situation, CN II-XII grossly intact. ABSENT: motor sensory deficit Psychiatric exam: PRESENT: appropriate affect, normal mood. ABSENT: homicidal ideation, suicidal ideation Skin exam: PRESENT: dry, intact, warm. ABSENT: cyanosis, rash Results Laboratory Results: 09/29/19 04:57 09/29/19 04:57 Impressions: Abdomen/Pelvis CT 09/25/19 09:45 IMPRESSION: 1. No acute noncontrast CT findings of the abdomen or pelvis to explain left upper quadrant abdominal pain. 2. Stigmata of end-stage renal disease. Assessment & Plan - Diagnosis (1) DKA (diabetic ketoacidoses) Qualifiers: Diabetes mellitus type: type 1 Diabetes mellitus complication detail: without coma Qualified Code(s): E10.10 - Type 1 diabetes mellitus with ketoacidosis without coma Is this a current diagnosis for this admission?: Yes Plan: [place] all resolved (2) End-stage renal disease Is this a current diagnosis for this admission?: Yes Plan: Currently on hemodialysis (3) Chronic diastolic (congestive) heart failure Is this a current diagnosis for this admission?: Yes (4) Chronic pain disorder Is this a current diagnosis for this admission?: Yes (5) End stage chronic kidney disease Is this a current diagnosis for this admission?: Yes - Time Time Spent with patient: 15-24 minutes Level of Care: IMCU Medications reviewed and adjusted accordingly: Yes Anticipated discharge: Other Within: Other - Plan Summary Plan Summary: Continues to current medications
[2019-09-30] MEDS ORDERED: BISACODYL 5 MG TABEC PO PRN (11:52)
[2019-09-30] MEDS ORDERED: MAGNESIUM CITRATE 296 ML BOTTLE PO PRN (11:53)
[2019-09-30] MEDS ORDERED: ONDANSETRON HCL INJ/PF 4 MG/2 ML SDV ONE (16:30)
[2019-09-30] MEDS ORDERED: ONDANSETRON HCL INJ/PF 4 MG/2 ML SDV IV PRN (16:48)
[2019-09-30] MEDS ORDERED: PROMETHAZINE HCL 25 MG SUPP.RECT PR ONE (17:00)
[2019-09-30] MEDS ORDERED: POLYETHYLENE GLYCOL 3350 POWDER 17 GM/1 PACKET PO ONE (17:30)
[2019-09-30] MEDS: DOCUSATE SODIUM 100 MG CAPSULE PO SCH (17:47)
[2019-09-30] MEDS: PAROXETINE HCL 20 MG TABLET PO SCH (17:47)
--- NOTE | 2019-09-30 20:18 | RADIOLOGY REPORT (SQ) ---
EXAM DESCRIPTION: CT ABDOMEN PELVIS WITHOUT IV CONTRAST COMPLETED DATE/TME: 09/30/2019 17:07 CLINICAL HISTORY: 34 years, Female, constipation, [place], LBM 09/27 COMPARISON: Prior study from 09/25/2019 TECHNIQUE: Noncontrast CT of the abdomen/pelvis was performed. Coronal and sagittal reformations were created. Images stored on PACS. All CT scanners at this facility use dose modulation, iterative reconstruction, and/or weight based dosing when appropriate to reduce radiation dose to as low as reasonably achievable (ALARA). [facility]: Dose Right [facility]: CareDose [facility]: Dose Right [facility]: Teradose 4D [facility]: GLIIF LIMITATIONS: None. FINDINGS: Limited evaluation of the lower chest reveals clear lung bases. The liver, spleen, pancreas, and both adrenal glands appear normal. Gallbladder is absent. Both kidneys are atrophic. A few fluid density lesions are noted about the left kidney, incompletely assessed on this noncontrast study though statistically corresponding to simple renal cysts. No hydronephrosis or hydroureter. Urinary bladder is collapsed, thus its evaluation is limited. Uterus and both ovaries show no suspicious abnormality. Small and large bowel appear normal in caliber. No evidence of bowel obstruction. Appendix is not visualized. Calcifications are evident about the abdominal aorta and proximal iliac vessels. No suspicious lymphadenopathy or drainable fluid collections are appreciated. Suspect vascular calcifications about both renal sinuses. Bone windows show erosive changes about the bilateral sacroiliac joints. This appears unchanged from multiple previous exams and likely indicates sequela of renal osteodystrophy. IMPRESSION: No acute abnormality within the abdomen or pelvis. TECHNICAL DOCUMENTATION: Quality ID # 436: Final reports with documentation of one or more dose reduction techniques (e.g., Automated exposure control, adjustment of the mA and/or kV according to patient size, use of iterative reconstruction technique) copyright 2011 [employer]- All Rights Reserved
[2019-09-30] MEDS ORDERED: INSULIN GLARGINE,HUM.REC.ANLOG 1,000 UNIT/10 ML VIAL (PYX) SUBCUT ONE (22:27)
[2019-10-01] MEDS: OXYCODONE-ACETAMINOPHEN 5-325 MG TABLET PO PRN ×2 (03:08→15:40)
[2019-10-01] MEDS: OXYCODONE HCL IR 5 MG TABLET PO PRN ×2 (03:08→15:40)
[2019-10-01] MEDS: BUTALB/ACETAMINOPHEN/CAFFEINE 1 TAB EACH PO PRN (06:22)
[2019-10-01] MEDS: FUROSEMIDE 80 MG TABLET PO SCH ×3 (06:23→21:41)
[2019-10-01] MEDS: INSULIN LISPRO 100 UNIT/ML 3 ML VIAL SUBCUT SCH ×4 (08:16→21:42)
[2019-10-01] MEDS: NIFEDIPINE 30 MG TAB.ER.24 PO SCH ×2 (09:39→21:41)
[2019-10-01] MEDS: CALCITRIOL 0.25 MCG CAPSULE PO SCH ×2 (09:39→17:04)
[2019-10-01] MEDS: AZITHROMYCIN 250 MG TABLET PO SCH (09:40)
[2019-10-01] MEDS: CALCIUM ACETATE 667 MG CAPSULE PO SCH ×3 (09:40→17:04)
[2019-10-01] MEDS: OXCARBAZEPINE 150 MG TABLET PO SCH ×2 (09:40→21:43)
[2019-10-01] MEDS: LORATADINE 10 MG TABLET PO SCH (09:40)
[2019-10-01] MEDS: INSULIN GLARGINE,HUM.REC.ANLOG 1,000 UNIT/10 ML VIAL SUBCUT SCH ×2 (09:40→21:42)
[2019-10-01] MEDS: POLYETHYLENE GLYCOL 3350 POWDER 17 GM/1 PACKET PO SCH (09:40)
[2019-10-01] MEDS: DOCUSATE SODIUM 100 MG CAPSULE PO SCH ×2 (09:40→17:05)
--- NOTE | 2019-10-01 09:41 | PDOC PROGRESS REPORT ---
Subjective Progress Note for:: 10/01/19 Subjective:: Patient was feeling nauseating yesterday after eating the pizza Patient underwent for the CT scan of the abdomen and pelvis did not show any obstructions or any acute pancreatitis Patient this morning breakfast without any problems Patient is complaining some sinus congestions Patient is a very noncompliance with the diet denied any chest pain no short of breath Reason For Visit: ACUTE PANCREATITIS,DIARRHEA Physical Exam Vital Signs: Temp Pulse Resp BP Pulse Ox 97.7 F 84 17 123/65 94 10/01/19 08:05 10/01/19 08:05 10/01/19 08:05 10/01/19 08:05 10/01/19 08:05 Intake & Output 09/30/19 10/01/19 10/02/19 06:59 06:59 06:59 Intake Total 360 720 Output Total 4500 Balance -4140 720 Weight 121 kg 122.7 kg General appearance: PRESENT: no acute distress, well-developed, well-nourished Head exam: PRESENT: atraumatic, normocephalic Eye exam: PRESENT: conjunctiva pink, EOMI, PERRLA. ABSENT: scleral icterus Ear exam: PRESENT: normal external ear exam Mouth exam: PRESENT: moist, tongue midline Neck exam: PRESENT: full ROM. ABSENT: carotid bruit, JVD, lymphadenopathy, thyromegaly Respiratory exam: PRESENT: clear to auscultation freddy Cardiovascular exam: PRESENT: RRR. ABSENT: diastolic murmur, rubs, systolic murmur Pulses: PRESENT: normal dorsalis pedis pul, +2 pedal pulses bilateral Vascular exam: PRESENT: normal capillary refill GI/Abdominal exam: PRESENT: normal bowel sounds, soft. ABSENT: distended, guarding, mass, organolmegaly, rebound, tenderness Rectal exam: PRESENT: deferred Musculoskeletal exam: PRESENT: ambulatory Neurological exam: PRESENT: alert, awake, oriented to person, oriented to place, oriented to time, oriented to situation, CN II-XII grossly intact. ABSENT: motor sensory deficit Psychiatric exam: PRESENT: appropriate affect, normal mood. ABSENT: homicidal ideation, suicidal ideation Skin exam: PRESENT: dry, intact, warm. ABSENT: cyanosis, rash Results Laboratory Results: 09/29/19 04:57 09/29/19 04:57 Impressions: Abdomen/Pelvis CT 09/30/19 17:07 IMPRESSION: No acute abnormality within the abdomen or pelvis. TECHNICAL DOCUMENTATION: Quality ID # 436: Final reports with documentation of one or more dose reduction techniques (e.g., Automated exposure control, adjustment of the mA and/or kV according to patient size, use of iterative reconstruction technique) copyright 2011 [employer]- All Rights Reserved Assessment & Plan - Diagnosis (1) DKA (diabetic ketoacidoses) Qualifiers: Diabetes mellitus type: type 1 Diabetes mellitus complication detail: without coma Qualified Code(s): E10.10 - Type 1 diabetes mellitus with ketoacidosis without coma Is this a current diagnosis for this admission?: Yes Plan: [place] all resolved (2) End-stage renal disease Is this a current diagnosis for this admission?: Yes Plan: Currently on hemodialysis (3) Chronic diastolic (congestive) heart failure Is this a current diagnosis for this admission?: Yes (4) Chronic pain disorder Is this a current diagnosis for this admission?: Yes (5) End stage chronic kidney disease Is this a current diagnosis for this admission?: Yes (6) Constipation Qualifiers: Constipation type: unspecified constipation type Qualified Code(s): K59.00 - Constipation, unspecified Is this a current diagnosis for this admission?: Yes Plan: We will continue some MiraLAX and add the lactulose Discussed with the patient about diet compliance Patient's repeat CT abdomen and pelvis did not show any other acute findings Patient's lipase was slightly elevated on admission patients did not sign of any pancreatitis We will repeat the blood work - Time Time Spent with patient: 15-24 minutes Level of Care: IMCU Medications reviewed and adjusted accordingly: Yes Anticipated discharge: Other Within: Other - Plan Summary Plan Summary: Continues to current medication Full liquid to soft diet Discussed with the patient about compliance with diet and do not try to eat outside food
[2019-10-01] MEDS ORDERED: SODIUM POLYSTYRENE SULFONATE 15 GM/60 ML PO SCH (10:00)
[2019-10-01] MEDS: LACTULOSE SYRUP 20 GM/30 ML UDCUP PO SCH (15:40)
[2019-10-01] MEDS: PAROXETINE HCL 20 MG TABLET PO SCH (17:05)
[2019-10-01] MEDS ORDERED: EPOETIN ALFA-EPBX 2,000 UNIT, EPOETIN ALFA-EPBX 3,000 UNIT in SYRINGE, DISPOSABLE, 1 EACH IV PRN (22:14)
[2019-10-01] MEDS ORDERED: GUAIFENESIN 600 MG TABLET.SA PO ONE (23:00)
[2019-10-02] MEDS ORDERED: HEPARIN SOD (PORCINE) 1,000 UNIT/ML 10 ML VIAL IV PRN (05:00)
[2019-10-02 05:58] LABS: HEMATOCRIT 29.4 % (36.0-47.0); HEMOGLOBIN 9.6 g/dL (12.0-15.5); MEAN CORPUSCULAR HEMOGLOBIN 28.2 pg (27.0-33.4); MEAN CORPUSCULAR HGB CONC 32.7 g/dL (32.0-36.0); MEAN CORPUSCULAR VOLUME 86 fl (80-97); PLATELET COUNT 326 10^3/uL (150-450); RED CELL DISTRIBUTION WIDTH 16.7 % (11.5-14.0); WHITE BLOOD COUNT 7.8 10^3/uL (4.0-10.5)
[2019-10-02] MEDS: FUROSEMIDE 80 MG TABLET PO SCH ×3 (06:16→22:22)
[2019-10-02 06:19] LABS: ANION GAP 19 (5-19); BLOOD UREA NITROGEN 76 mg/dL (7-20); CALCIUM 7.8 mg/dL (8.4-10.2); CARBON DIOXIDE 29 mmol/L (22-30); CHLORIDE 88 mmol/L (98-107); GLUCOSE 107 mg/dL (75-110); POTASSIUM 4.5 mmol/L (3.6-5.0)
[2019-10-02] MEDS: INSULIN LISPRO 100 UNIT/ML 3 ML VIAL SUBCUT SCH ×4 (08:21→22:23)
[2019-10-02] MEDS: CALCIUM ACETATE 667 MG CAPSULE PO SCH ×3 (08:23→17:11)
--- NOTE | 2019-10-02 12:00 | PDOC PROGRESS REPORT ---
Subjective Progress Note for:: 10/02/19 Reason For Visit: Patient seen today on dialysis. Complains of head congestion and some headaches. Otherwise doing relatively well. Unfortunately noncompliant with diet and fluids since she has gained a lot of fluid over the weekend. Labs and medications were reviewed. Dialysis orders were reviewed with the treating dialysis nurse. Physical Exam Vital Signs: Temp Pulse Resp BP Pulse Ox 97.5 F 86 18 163/101 H 100 10/02/19 07:27 10/02/19 07:27 10/02/19 07:27 10/02/19 07:27 10/02/19 07:27 Intake & Output 10/01/19 10/02/19 10/03/19 06:59 06:59 06:59 Intake Total 720 462 Output Total 0 Balance 720 462 Weight 122.7 kg 126.1 kg General appearance: PRESENT: no acute distress Respiratory exam: PRESENT: clear to auscultation freddy, decreased breath sounds. ABSENT: crackles Cardiovascular exam: PRESENT: +S1, +S2 GI/Abdominal exam: PRESENT: normal bowel sounds, soft, tenderness - Mildly tender in the left upper quadrant.. ABSENT: organomegaly Extremities exam: ABSENT: pedal edema Neurological exam: PRESENT: alert, awake, oriented to person, oriented to place Psychiatric exam: PRESENT: appropriate affect Results Laboratory Results: 10/02/19 05:35 10/02/19 05:35 10/02/19 10/02/19 05:35 05:35 WBC 7.8 RBC 3.40 L Hgb 9.6 L Hct 29.4 L MCV 86 MCH 28.2 MCHC 32.7 RDW 16.7 H Plt Count 326 Sodium 135.9 L Potassium 4.5 Chloride 88 L Carbon Dioxide 29 Anion Gap 19 BUN 76 H Creatinine 13.36 H Est GFR ( Amer) 4 L Glucose 107 Calcium 7.8 L Phosphorus 9.0 H Magnesium 2.6 H Impressions: Abdomen/Pelvis CT 09/30/19 17:07 IMPRESSION: No acute abnormality within the abdomen or pelvis. TECHNICAL DOCUMENTATION: Quality ID # 436: Final reports with documentation of one or more dose reduction techniques (e.g., Automated exposure control, adjustment of the mA and/or kV according to patient size, use of iterative reconstruction technique) copyright 2011 [employer]- All Rights Reserved Assessment & Plan - Diagnosis (1) Hyperkalemia Plan: Resolved. (2) Hypocalcemia Is this a current diagnosis for this admission?: Yes Plan: Improving. No signs of tetany. Continue current medications and plans. (3) ESRD (end stage renal disease) Plan: Patient seen on dialysis today. Vital signs are stable. Dialysis is being supervised to ensure safe and smooth procedure. Plan to remove between 4-5 L as tolerated. Dialysis orders were reviewed with the treating dialysis nurse. (4) Acute pancreatitis Qualifiers: Pancreatitis type: unspecified pancreatitis type Acute pancreatitis complication: unspecified Qualified Code(s): K85.90 - Acute pancreatitis without necrosis or infection, unspecified Is this a current diagnosis for this admission?: Yes Plan: Clinically improving. (5) Abdominal pain Qualifiers: Abdominal location: unspecified location Qualified Code(s): R10.9 - Unspecified abdominal pain Plan: Currently resolved. (6) Anemia in chronic kidney disease (CKD) Qualifiers: Chronic kidney disease stage: on chronic dialysis Qualified Code(s): N18.6 - End stage renal disease; D63.1 - Anemia in chronic kidney disease; Z99.2 - Dependence on renal dialysis Is this a current diagnosis for this admission?: Yes Plan: Monitor.Adjust erythropoietin. (7) Diabetes mellitus type 1 Qualifiers: Diabetes mellitus complication status: with ketoacidosis Is this a current diagnosis for this admission?: Yes Plan: Advised tight control (8) Hypertension Qualifiers: Hypertension type: unspecified Qualified Code(s): I10 - Essential (primary) hypertension Plan: Not well controlled.See response to fluid removal on dialysis. (9) Morbid obesity Plan: Status quo.
[2019-10-02] MEDS: INSULIN GLARGINE,HUM.REC.ANLOG 1,000 UNIT/10 ML VIAL SUBCUT SCH ×2 (13:07→22:23)
[2019-10-02] MEDS: LACTULOSE SYRUP 20 GM/30 ML UDCUP PO SCH (13:07)
[2019-10-02] MEDS: GUAIFENESIN 600 MG TABLET.SA PO SCH ×2 (13:08→17:11)
[2019-10-02] MEDS: DOCUSATE SODIUM 100 MG CAPSULE PO SCH ×2 (13:08→17:13)
[2019-10-02] MEDS: POLYETHYLENE GLYCOL 3350 POWDER 17 GM/1 PACKET PO SCH (13:08)
[2019-10-02] MEDS: LORATADINE 10 MG TABLET PO SCH (13:08)
[2019-10-02] MEDS: NIFEDIPINE 30 MG TAB.ER.24 PO SCH ×3 (13:08→22:23)
[2019-10-02] MEDS: CALCITRIOL 0.25 MCG CAPSULE PO SCH ×2 (13:09→17:11)
[2019-10-02] MEDS: OXCARBAZEPINE 150 MG TABLET PO SCH ×3 (13:09→22:23)
[2019-10-02] MEDS: AZITHROMYCIN 250 MG TABLET PO SCH (13:18)
[2019-10-02] MEDS: PAROXETINE HCL 20 MG TABLET PO SCH (17:11)
--- NOTE | 2019-10-02 21:22 | RADIOLOGY REPORT (SQ) ---
EXAM DESCRIPTION: CT MAXILLOFACIAL WITHOUT IV CONTRAST COMPLETED DATE/TME: 10/02/2019 00:00 COMPARISON: None. TECHNIQUE: Contiguous axial images obtained through the facial bones without IV contrast. Coronal and sagittal reformatted images obtained. This exam was performed according to our department optimization program which includes automated exposure control, adjustment of the mA and/or kv according to patient size and/or use of iterative reconstruction technique. FINDINGS: Nasal bones, nasal septum and nasal spine appear intact. Lip piercing on the left. Zygomatic arches and mandible appear intact. Stable calcifications along the body of the mandible on the right. No acute orbital fracture. IMPRESSION: No acute facial fracture is identified.
--- NOTE | 2019-10-02 22:17 | PDOC PROGRESS REPORT ---
Subjective Progress Note for:: 10/02/19 Subjective:: She was seen by the bedside she has right facial swelling suspicious for maxillary sinusitis,The CAT scan of the face that was done negative Reason For Visit: ACUTE PANCREATITIS,DIARRHEA Physical Exam Vital Signs: Temp Pulse Resp BP Pulse Ox 98.7 F 96 21 H 148/83 H 100 10/02/19 19:07 10/02/19 19:07 10/02/19 19:07 10/02/19 19:07 10/02/19 19:07 Intake & Output 10/01/19 10/02/19 10/03/19 06:59 06:59 06:59 Intake Total 720 462 720 Output Total 0 5100 Balance 720 462 -4380 Weight 122.7 kg 126.1 kg General appearance: PRESENT: no acute distress Eye exam: PRESENT: PERRLA Respiratory exam: PRESENT: clear to auscultation freddy Cardiovascular exam: PRESENT: +S1, +S2 GI/Abdominal exam: PRESENT: soft Neurological exam: PRESENT: alert, CN II-XII grossly intact Results Laboratory Results: 10/02/19 05:35 10/02/19 05:35 10/02/19 10/02/19 05:35 05:35 WBC 7.8 RBC 3.40 L Hgb 9.6 L Hct 29.4 L MCV 86 MCH 28.2 MCHC 32.7 RDW 16.7 H Plt Count 326 Sodium 135.9 L Potassium 4.5 Chloride 88 L Carbon Dioxide 29 Anion Gap 19 BUN 76 H Creatinine 13.36 H Est GFR ( Amer) 4 L Glucose 107 Calcium 7.8 L Phosphorus 9.0 H Magnesium 2.6 H Impressions: Abdomen/Pelvis CT 09/30/19 17:07 IMPRESSION: No acute abnormality within the abdomen or pelvis. TECHNICAL DOCUMENTATION: Quality ID # 436: Final reports with documentation of one or more dose reduction techniques (e.g., Automated exposure control, adjustment of the mA and/or kV according to patient size, use of iterative reconstruction technique) copyright 2011 [employer]- All Rights Reserved Facial Bones CT 10/02/19 00:00 IMPRESSION: No acute facial fracture is identified. Assessment & Plan - Diagnosis (1) DKA (diabetic ketoacidoses) Qualifiers: Diabetes mellitus type: type 1 Diabetes mellitus complication detail: without coma Qualified Code(s): E10.10 - Type 1 diabetes mellitus with ketoacidosis without coma Is this a current diagnosis for this admission?: Yes (2) End-stage renal disease Is this a current diagnosis for this admission?: Yes (3) Serum lipase elevation Is this a current diagnosis for this admission?: Yes (4) Acute sinusitis Qualifiers: Sinusitis location: unspecified location Recurrence: not specified as recurrent Qualified Code(s): J01.90 - Acute sinusitis, unspecified Is this a current diagnosis for this admission?: Yes (5) Lymphadenitis Is this a current diagnosis for this admission?: Yes - Time Time Spent with patient: 35 or more minutes
[2019-10-02] MEDS: GABAPENTIN 100 MG CAPSULE PO SCH (22:25)
[2019-10-03] MEDS: BUTALB/ACETAMINOPHEN/CAFFEINE 1 TAB EACH PO PRN (01:10)
[2019-10-03] MEDS: FUROSEMIDE 80 MG TABLET PO SCH ×2 (05:05→14:49)
[2019-10-03] MEDS: CALCIUM ACETATE 667 MG CAPSULE PO SCH ×3 (08:17→16:51)
[2019-10-03] MEDS: INSULIN LISPRO 100 UNIT/ML 3 ML VIAL SUBCUT SCH ×3 (08:19→16:50)
[2019-10-03] MEDS: LACTULOSE SYRUP 20 GM/30 ML UDCUP PO SCH (09:33)
[2019-10-03] MEDS: POLYETHYLENE GLYCOL 3350 POWDER 17 GM/1 PACKET PO SCH (09:34)
[2019-10-03] MEDS: CALCITRIOL 0.25 MCG CAPSULE PO SCH ×2 (09:35→17:48)
[2019-10-03] MEDS: AZITHROMYCIN 250 MG TABLET PO SCH (09:35)
[2019-10-03] MEDS: GUAIFENESIN 600 MG TABLET.SA PO SCH ×2 (09:36→17:48)
[2019-10-03] MEDS: NIFEDIPINE 30 MG TAB.ER.24 PO SCH (09:36)
[2019-10-03] MEDS: DOCUSATE SODIUM 100 MG CAPSULE PO SCH ×2 (09:36→17:48)
[2019-10-03] MEDS: LORATADINE 10 MG TABLET PO SCH (09:36)
[2019-10-03] MEDS: OXCARBAZEPINE 150 MG TABLET PO SCH (09:37)
[2019-10-03] MEDS: INSULIN GLARGINE,HUM.REC.ANLOG 1,000 UNIT/10 ML VIAL SUBCUT SCH (09:38)
[2019-10-03] MEDS: OXYCODONE-ACETAMINOPHEN 5-325 MG TABLET PO PRN (14:51)
[2019-10-03] MEDS: PAROXETINE HCL 20 MG TABLET PO SCH (17:47)
[2019-10-03 18:37] VITALS: BP 147/73
--- NOTE | 2019-10-03 22:24 | PDOC DISCHARGE SUMMARY ---
Impression - Admit/DC Date/PCP Admission Date/Primary Care Provider: 09/25/19 12:05 HILARY HERNANDEZ MD Discharge Date: 10/03/19 - Discharge Diagnosis (1) DKA (diabetic ketoacidoses) Is this a current diagnosis for this admission?: Yes (2) End-stage renal disease Is this a current diagnosis for this admission?: Yes (3) Serum lipase elevation Is this a current diagnosis for this admission?: Yes (4) Acute sinusitis Is this a current diagnosis for this admission?: Yes (5) Lymphadenitis Is this a current diagnosis for this admission?: Yes (6) ESRD (end stage renal disease) on dialysis Is this a current diagnosis for this admission?: Yes - Additional Information Resuscitation Status: Full Code Discharge Diet: Diabetic Discharge Activity: Activity As Tolerated Referrals: HILARY HERNANDEZ MD [Primary Care Provider] - 10/10/19 9:45 am Prescriptions: Loratadine [Claritin 10 mg Tablet] 10 mg PO DAILY #90 tablet Calcitriol [Rocaltrol 0.25 mcg Capsule] 0.5 mcg PO BID #180 capsule Home Medications: Calcium Acetate [Phoslo 667 mg Capsule] 1,334 mg PO .BIDWITHSNACKS 09/25/19 Calcium Acetate [Phoslo 667 mg Capsule] 2,001 mg PO Q8 09/25/19 Furosemide [Lasix 80 mg Tablet] 80 mg PO Q8 09/25/19 Gabapentin Enacarbil [Horizant] 300 mg PO MOWEFR@1000 09/25/19 Insulin Detemir [Levemir] 35 unit SQ BID 09/25/19 Insulin Lispro [Humalog Insulin (Lispro) 100 unit/mL] 0 unit SUBCUT .SLD SCALE 09/25/19 Nifedipine [Procardia XL 60 mg Tablet] 60 mg PO Q12 09/25/19 Oxcarbazepine [Trileptal] 300 mg PO Q12 09/25/19 Oxycodone HCl/Acetaminophen [Percocet 7.5-325 mg Tablet] 1 each PO QIDP PRN 09/25/19 Paroxetine HCl [Paxil] 80 mg PO QPM 09/25/19 Sodium Polystyrene Sulfonate [Kayexalate 15 gm/60 ml Susp 60 ml] 30 gm PO SRIVASTAVA@1000 09/25/19 Calcitriol [Rocaltrol 0.25 mcg Capsule] 0.5 mcg PO BID #180 capsule 10/03/19 Docusate Sodium [Colace 100 mg Capsule] 100 mg PO BID capsule 10/03/19 Glucagon,Human Recombinant [Glucagen Inj 1 mg Vial] 1 mg IM PRN PRN vial 10/03/19 Guaifenesin [Mucinex Sr 600 mg Tablet.sa] 600 mg PO BID tablet.sa 10/03/19 Loratadine [Claritin 10 mg Tablet] 10 mg PO DAILY #90 tablet 10/03/19 History of Present Illiness History of Present Illness: ERICH GOODMAN is a 34 year old female She came to the emergency room for evaluation of abdominal pain, there was associated diarrhea, she had multiple episode of non-bloody diarrhea, in the emergency room she was evaluated she was found to have severe hyperglycemia, she was in DKA when she presented to the emergency room CT scan of the abdomen and pelvis with no contrast was obtained, it showed bilateral atrophic kidneys there was no CAT scan evidence of inflamed pancreas, the serum lipase was slightly elevated in the 600 range.. She has end-stage renal disease on maintenance hemodialysis Hospital Course Hospital Course: .She was admitted for the management of diabetes ketoacidosis, DKA, end-stage renal disease on dialysis, she was seen by nephrology she underwent hemodialysis on this admission she has DKA, at this was treated with insulin drip she also had acute sinusitis complicated with enlarged lymph nodes in the neck this was treated with antibiotic zithromax with near resolution of symptoms Physical Exam Vital Signs: Temp Pulse Resp BP Pulse Ox 97.8 F 111 H 18 147/73 H 99 10/03/19 18:32 10/03/19 18:32 10/03/19 18:32 10/03/19 18:32 10/03/19 18:32 Intake & Output 10/02/19 10/03/19 10/04/19 06:59 06:59 06:59 Intake Total 462 1560 980 Output Total 0 5100 0 Balance 462 -3540 980 Weight 126.1 kg 121.9 kg General appearance: PRESENT: no acute distress Eye exam: PRESENT: PERRLA Respiratory exam: PRESENT: clear to auscultation freddy Cardiovascular exam: PRESENT: +S1, +S2 GI/Abdominal exam: PRESENT: rigid Neurological exam: PRESENT: alert, CN II-XII grossly intact Results Laboratory Results: WBC 7.8 10^3/uL (4.0-10.5) 10/02/19 05:35 RBC 3.40 10^6/uL (3.72-5.28) L 10/02/19 05:35 Hgb 9.6 g/dL (12.0-15.5) L 10/02/19 05:35 Hct 29.4 % (36.0-47.0) L 10/02/19 05:35 MCV 86 fl (80-97) 10/02/19 05:35 MCH 28.2 pg (27.0-33.4) 10/02/19 05:35 MCHC 32.7 g/dL (32.0-36.0) 10/02/19 05:35 RDW 16.7 % (11.5-14.0) H 10/02/19 05:35 Plt Count 326 10^3/uL (150-450) 10/02/19 05:35 Lymph % (Auto) 35.0 % (13-45) 09/29/19 04:57 Bryan % (Auto) 10.5 % (3-13) 09/29/19 04:57 Eos % (Auto) 6.9 % (0-6) H 09/29/19 04:57 Baso % (Auto) 0.8 % (0-2) 09/29/19 04:57 Absolute Neuts (auto) 3.8 10^3/uL (1.7-8.2) 09/29/19 04:57 Absolute Lymphs (auto) 2.8 10^3/uL (0.5-4.7) 09/29/19 04:57 Absolute Monos (auto) 0.9 10^3/uL (0.1-1.4) 09/29/19 04:57 Absolute Eos (auto) 0.6 10^3/uL (0.0-0.6) 09/29/19 04:57 Absolute Basos (auto) 0.1 10^3/uL (0.0-0.2) 09/29/19 04:57 Seg Neutrophils % 46.8 % (42-78) 09/29/19 04:57 VBG pH 7.20 (7.30-7.42) L 09/25/19 12:00 VBG pCO2 35.1 mmHg (35-63) 09/25/19 12:00 VBG HCO3 13.3 mmol/L (20-32) L 09/25/19 12:00 VBG Base Excess -13.7 mmol/L 09/25/19 12:00 Sodium 135.9 mmol/L (137-145) L 10/02/19 05:35 Potassium 4.5 mmol/L (3.6-5.0) 10/02/19 05:35 Chloride 88 mmol/L (98-107) L 10/02/19 05:35 Carbon Dioxide 29 mmol/L (22-30) 10/02/19 05:35 Anion Gap 19 (5-19) 10/02/19 05:35 BUN 76 mg/dL (7-20) H 10/02/19 05:35 Creatinine 13.36 mg/dL (0.52-1.25) H 10/02/19 05:35 Est GFR ( Amer) 4 (>60) L 10/02/19 05:35 Est GFR (MDRD) Non-Af 3 (>60) L 10/02/19 05:35 Glucose 107 mg/dL (75-110) 10/02/19 05:35 POC Glucose 215 mg/dL (70-110) H 10/03/19 16:18 Calcium 7.8 mg/dL (8.4-10.2) L 10/02/19 05:35 Ionized Calcium New 0.79 mmol/L (1.14-1.30) L 09/27/19 05:08 Phosphorus 9.0 mg/dL (2.5-4.5) H 10/02/19 05:35 Magnesium 2.6 mg/dL (1.6-2.3) H 10/02/19 05:35 Total Bilirubin 0.4 mg/dL (0.2-1.3) 09/25/19 10:10 Direct Bilirubin 0.4 mg/dL (0.0-0.4) 09/25/19 10:10 Neonat Total Bilirubin Not Reportable 09/25/19 10:10 Neonat Direct Bilirubin Not Reportable 09/25/19 10:10 Neonat Indirect Bili Not Reportable 09/25/19 10:10 AST 17 U/L (14-36) 09/25/19 10:10 ALT 12 U/L (<35) 09/25/19 10:10 Alkaline Phosphatase 153 U/L (38-126) H 09/25/19 10:10 Total Protein 8.1 g/dL (6.3-8.2) 09/25/19 10:10 Albumin 4.3 g/dL (3.5-5.0) 09/25/19 10:10 Lipase 487.9 U/L (23-300) H 09/26/19 12:37 PTH Intact 1563.0 pg/mL (10.0-65.0) H 09/26/19 12:37 Impressions: Abdomen/Pelvis CT 09/25/19 09:45 IMPRESSION: 1. No acute noncontrast CT findings of the abdomen or pelvis to explain left upper quadrant abdominal pain. 2. Stigmata of end-stage renal disease. Abdomen/Pelvis CT 09/30/19 17:07 IMPRESSION: No acute abnormality within the abdomen or pelvis. TECHNICAL DOCUMENTATION: Quality ID # [id number]: Final reports with documentation of one or more dose reduction techniques (e.g., Automated exposure control, adjustment of the mA and/or kV according to patient size, use of iterative reconstruction technique) copyright 2011 [employer]- All Rights Reserved Facial Bones CT 10/02/19 00:00 IMPRESSION: No acute facial fracture is identified. Stroke Is this a Stroke Patient?: No Acute Heart Failure - Is this a Heart Failure Patient?: No
[2019-10-04] MEDS ORDERED: HEPARIN SOD (PORCINE) 1,000 UNIT/ML 10 ML VIAL IV PRN (05:00)
[2019-10-04] MEDS ORDERED: EPOETIN ALFA-EPBX 2,000 UNIT, EPOETIN ALFA-EPBX 3,000 UNIT in SYRINGE, DISPOSABLE, 1 EACH IV PRN (05:00)
== END 2019-10-03 19:29 | disposition home or self-care (01) | DRG 637 ==
LOC: ER 09:08 → EH 12:05 → 3W 17:36
PROVIDERS: ADMIT Internal Medicine; ATTEND Internal Medicine
PROC: 5A1D70Z Performance of Urinary Filtration, Intermittent, Less than 6 Hours Per Day (ICD-10-PCS; principal; 2019-09-25)
DX: E10.10 Type 1 diabetes mellitus with ketoacidosis without coma (principal); N18.6 End stage renal disease; I13.2 Hypertensive heart and chronic kidney disease with heart failure and with stage 5 chronic kidney disease, or end stage renal disease; N25.81 Secondary hyperparathyroidism of renal origin; I50.32 Chronic diastolic (congestive) heart failure; D63.1 Anemia in chronic kidney disease; E83.51 Hypocalcemia; E83.39 Other disorders of phosphorus metabolism; E10.22 Type 1 diabetes mellitus with diabetic chronic kidney disease; E10.43 Type 1 diabetes mellitus with diabetic autonomic (poly)neuropathy; J01.90 Acute sinusitis, unspecified; I88.9 Nonspecific lymphadenitis, unspecified; Z91.11 Patient's noncompliance with dietary regimen; L29.9 Pruritus, unspecified; I25.10 Atherosclerotic heart disease of native coronary artery without angina pectoris; J45.909 Unspecified asthma, uncomplicated; G43.909 Migraine, unspecified, not intractable, without status migrainosus; E87.5 Hyperkalemia; L40.9 Psoriasis, unspecified; F32.9 Major depressive disorder, single episode, unspecified; F41.9 Anxiety disorder, unspecified; E66.01 Morbid (severe) obesity due to excess calories; E10.319 Type 1 diabetes mellitus with unspecified diabetic retinopathy without macular edema; G89.29 Other chronic pain; K59.00 Constipation, unspecified; Z79.4 Long term (current) use of insulin; Z99.2 Dependence on renal dialysis; Z91.15 Patient's noncompliance with renal dialysis; Z88.6 Allergy status to analgesic agent; Z88.4 Allergy status to anesthetic agent; Z88.1 Allergy status to other antibiotic agents; Z88.8 Allergy status to other drugs, medicaments and biological substances
CPT/HCPCS: 36415; 70486; 74176; 80048; 80053; 82330; 82803; 82962; 83690; 83735; 83970; 84100; 85025; 85027; 93005; 93010; 96374; 96375; 99291; J0610; J1200; J1644; J1815; J2270; J2405; J3490; J7060; Q5105; S0119

== ENCOUNTER 2019-10-15 15:08 | Emergency (ER) | payer MEDICARE, MEDICAID ==
--- NOTE | 2019-10-15 15:22 | ER Document Report ---
ED Medical Screen (RME) - General Chief Complaint: Sore Throat Stated Complaint: SORE THROAT Time Seen by Provider: 10/15/19 15:19 Primary Care Provider: HILARY HERNANDEZ MD [Primary Care Provider] - Follow up as needed Mode of Arrival: Ambulatory Information source: Patient Notes: 34-year-old female presented to ED for complaint of sinus infection short of breath cough and sore throat that she has had for about 3 weeks. She states she took a regime of azithromycin and amoxicillin and is still having the symptoms. She states her last dialysis was on Wednesday and she is due tomorrow. She states frequently when she comes in here with the symptoms she is dehydrated or her potassium is high. And she states her blood sugar has been high today. There is no swelling to the tongue she does have a lot of nasal congestion lungs sound clear. I have greeted and performed a rapid initial assessment of this patient. A comprehensive ED assessment and evaluation of the patient, analysis of test results and completion of medical decision making process will be conducted by an additional ED providers. TRAVEL OUTSIDE OF THE [place] IN LAST 30 DAYS: No - Related Data Allergies/Adverse Reactions: aspirin [Aspirin] Allergy (Verified 10/15/19 15:18) Anaphylaxis ciprofloxacin [From Cipro] Allergy (Verified 10/15/19 15:18) Anaphylaxis clindamycin [Clindamycin] Allergy (Verified 10/15/19 15:18) hydrocodone [From Vicodin] Allergy (Verified 10/15/19 15:18) ibuprofen [From Motrin] Allergy (Verified 10/15/19 15:18) Anaphylaxis lidocaine [From Lidoderm] Allergy (Verified 10/15/19 15:18) Generalized rash tramadol HCl [From Ultram] Allergy (Verified 10/15/19 15:18) vancomycin [Vancomycin] Allergy (Verified 10/15/19 15:18) Shortness of Breath nitroglycerin [Nitroglycerin] Adverse Reaction (Intermediate, Verified 10/15/19 15:18) Joint pain Past Medical History - Social History Family history: Reviewed & Not Pertinent - Past Medical History Cardiac Medical History: Reports: Hx Congestive Heart Failure, Hx Coronary Artery Disease, Hx Hypertension, Hx Heart Murmur Pulmonary Medical History: Reports: Hx Asthma, Hx Pneumonia Neurological Medical History: Reports: Hx Migraine, Hx Seizures - only r/t low calcium. Denies: Hx Parkinson's Disease Endocrine Medical History: Reports: Hx Diabetes Mellitus Type 1, Hx Diabetes Mellitus Type 2 Renal/ Medical History: Reports: Hx End Stage Renal Disease - On hemodialysis -, Hx Hemodialysis, Hx Ovarian Cysts. Denies: Hx Peritoneal Dialysis Malignancy Medical History: GI Medical History: Reports: Hx Gastritis Musculoskeltal Medical History: Skin Medical History: Reports Hx Psoriasis Psychiatric Medical History: Reports: Hx Depression Traumatic Medical History: Infectious Medical History: Past Surgical History: Reports: Hx Appendectomy, Hx Cholecystectomy, Hx Vascular Surgery - Lt AV Fistula and graft; Rt AV fistula - Immunizations Immunizations up to date: Yes Hx Diphtheria, Pertussis, Tetanus Vaccination: Yes Doctor's Discharge - Discharge Referrals: HILARY HERNANDEZ MD [Primary Care Provider] - Follow up as needed
--- NOTE | 2019-10-15 16:20 | RADIOLOGY REPORT (SQ) ---
EXAM DESCRIPTION: CHEST 2 VIEWS COMPLETED DATE/TIME: 10/15/2019 4:02 pm REASON FOR STUDY: Cough congestion COMPARISON: 09/11/2019 EXAM PARAMETERS: NUMBER OF VIEWS: two views TECHNIQUE: Digital Frontal and Lateral radiographic views of the chest acquired. RADIATION DOSE: NA LIMITATIONS: none FINDINGS: LUNGS AND PLEURA: Mild diffuse interstitial pulmonary opacity, similar to prior examinatio n. No new airspace opacity. MEDIASTINUM AND HILAR STRUCTURES: No masses or contour abnormalities. HEART AND VASCULAR STRUCTURES: Cardiomegaly. BONES: No acute findings. HARDWARE: None in the chest. OTHER: Right subclavian vascular stent and partially imaged upper extremity stent graft component. IMPRESSION: Mild diffuse interstitial pulmonary opacity, similar to prior examination, likely edema in the setting of cardiomegaly. No new airspace opacity. TECHNICAL DOCUMENTATION: JOB ID: [id number] [employer]- All Rights Reserved Reading location - IP/workstation name: [email or web address]
--- NOTE | 2019-10-15 16:42 | ER Document Report ---
ED General - General Chief Complaint: Sore Throat Stated Complaint: SORE THROAT Time Seen by Provider: 10/15/19 15:19 Primary Care Provider: HILARY HERNANDEZ MD [Primary Care Provider] - Follow up as needed Mode of Arrival: Ambulatory Notes: This 34-year-old woman presents to the emergency department with a complaint of sore throat, sinus pressure, ear pressure and headache. She has had symptoms for 3 weeks, treated with Zithromax and amoxicillin, on 2 separate occasions. She notes that her symptoms improved briefly and then rebounded. She attempted to take Benadryl but states that she is having itching in her throat and her tongue felt heavy. She is now requesting further treatment. She is a type I diabetic, end-stage renal disease on hemodialysis, and history of DKA in the past. TRAVEL OUTSIDE OF THE [place] IN LAST 30 DAYS: No - Related Data Allergies/Adverse Reactions: aspirin [Aspirin] Allergy (Verified 10/15/19 15:18) Anaphylaxis ciprofloxacin [From Cipro] Allergy (Verified 10/15/19 15:18) Anaphylaxis clindamycin [Clindamycin] Allergy (Verified 10/15/19 15:18) hydrocodone [From Vicodin] Allergy (Verified 10/15/19 15:18) ibuprofen [From Motrin] Allergy (Verified 10/15/19 15:18) Anaphylaxis lidocaine [From Lidoderm] Allergy (Verified 10/15/19 15:18) Generalized rash tramadol HCl [From Ultram] Allergy (Verified 10/15/19 15:18) vancomycin [Vancomycin] Allergy (Verified 10/15/19 15:18) Shortness of Breath nitroglycerin [Nitroglycerin] Adverse Reaction (Intermediate, Verified 10/15/19 15:18) Joint pain Home Medications: nefedipine. clonidine. carvedilol. lasix. paxil. tramadol. xanax. percocet. ambien. humalog. levimer Past Medical History - General Information source: Patient - Social History Smoking Status: Never Smoker Chew tobacco use (# tins/day): No Frequency of alcohol use: None Drug Abuse: None Family History: Reviewed & Not Pertinent Patient has suicidal ideation: No Patient has homicidal ideation: No - Past Medical History Cardiac Medical History: Reports: Hx Congestive Heart Failure, Hx Coronary Artery Disease, Hx Hypertension, Hx Heart Murmur Pulmonary Medical History: Reports: Hx Asthma, Hx Pneumonia Neurological Medical History: Reports: Hx Migraine, Hx Seizures - only r/t low calcium. Denies: Hx Parkinson's Disease Endocrine Medical History: Reports: Hx Diabetes Mellitus Type 1, Hx Diabetes Mellitus Type 2 Renal/ Medical History: Reports: Hx End Stage Renal Disease - On hemodialysis M-W--S, Hx Hemodialysis, Hx Ovarian Cysts. Denies: Hx Peritoneal Dialysis Malignancy Medical History: GI Medical History: Reports: Hx Gastritis Musculoskeletal Medical History: Skin Medical History: Reports Hx Psoriasis Psychiatric Medical History: Reports: Hx Depression Traumatic Medical History: Infectious Medical History: Past Surgical History: Reports: Hx Appendectomy, Hx Cholecystectomy, Hx Vascular Surgery - Lt AV Fistula and graft; Rt AV fistula - Immunizations Immunizations up to date: Yes Hx Diphtheria, Pertussis, Tetanus Vaccination: Yes Hx Pneumococcal Vaccination: 08/22/11 Review of Systems - Review of Systems Notes: Constitutional: Negative for fever. HEENT: + bilateral face, + pain bilateral ear pressure Cardiovascular: Negative for chest pain. Respiratory: Negative for shortness of breath. Gastrointestinal: Negative for vomiting Musculoskeletal: Negative for back pain. Skin: Negative for rash. Neurological: Negative for weakness or numbness. 10 point ROS negative except as marked above and in HPI. Physical Exam - Vital signs Vitals: Temp Pulse Resp BP Pulse Ox 97.9 F 90 18 156/82 H 96 10/15/19 15:18 10/15/19 15:18 10/15/19 15:18 10/15/19 15:18 10/15/19 15:18 - Notes Notes: PHYSICAL EXAMINATION: GENERAL: Well-appearing, well-nourished and in no acute distress. HEAD: Atraumatic, normocephalic. EYES: Pupils equal round and reactive to light, extraocular movements intact, sclera anicteric, conjunctiva are normal. ENT: nares patent, oropharynx clear without exudates. Moist mucous membranes. TMs are dull with air-fluid levels bilaterally + nasal congestion, maxillary and frontal sinus pressure/tenderness NECK: Normal range of motion, supple without lymphadenopathy LUNGS: Breath sounds clear to auscultation bilaterally and equal. No wheezes rales or rhonchi. HEART: Regular rate and rhythm without murmurs ABDOMEN: Soft, nontender, normoactive bowel sounds. No guarding, no rebound. No masses appreciated. EXTREMITIES: Normal range of motion, no pitting or edema. No cyanosis. NEUROLOGICAL: No focal neurological deficits. Moves all extremities spontaneously and on command. PSYCH: Normal mood, normal affect. SKIN: Warm, Dry, normal turgor, no rashes or lesions noted. Course - Re-evaluation Re-evalutation: Chronically ill 34-year-old woman who has been having problems with upper respiratory tract symptoms. Tenderness over the maxillary and frontal sinuses, nasal drainage sore throat and ear pressure. She has had nausea and vomiting and of course, history of type 1 diabetes mellitus and renal failure on hemodialysis. She has been hospitalized with DKA, today blood sugar is slightly elevated to 75 and has a acidosis which appears chronic after reviewing her records. She is not taking her usual medications today and her blood pressure is slightly elevated. She is scheduled for dialysis tomorrow. Does not exhibit signs of failure and after medications for pain and nausea appears to be much improved. I have explained to the patient that we can restart her on a different antibiotic, will use Atarax to help with the itchiness in her concerns for "" allergic reaction/congestion. She does voice concern that she continues to have some headache, however, improved. I have explained that hydromorphone is not typically used for her headache, continue her usual medications now that the nausea has improved. She apparently has Phenergan at home that she has been using chronically. After further discussion, the patient is discharged home follow-up with her dialysis on Wednesday. She is given a prescription for the medications as noted and also cautioned to return to the emergency department if she is unable to keep down fluids or if there are other new or concerning symptoms. She voices understanding of this plan and states that she is ready to go home. - Vital Signs Vital signs: Temp Pulse Resp BP Pulse Ox 98.0 F 85 20 152/85 H 100 10/15/19 19:50 10/15/19 19:50 10/15/19 19:50 10/15/19 19:50 10/15/19 19:50 - Laboratory Result Diagrams: 10/15/19 17:43 10/15/19 17:43 Laboratory results interpreted by me: 10/15/19 10/15/19 10/15/19 15:40 16:40 17:00 RBC Hgb Hct RDW VBG pH 7.29 L Sodium Chloride Carbon Dioxide Anion Gap BUN Creatinine Est GFR ( Amer) Est GFR (MDRD) Non-Af Glucose POC Glucose 315 H 270 H Calcium Direct Bilirubin 10/15/19 10/15/19 17:43 17:43 RBC 3.18 L Hgb 9.1 L Hct 27.3 L RDW 17.3 H VBG pH Sodium 136.3 L Chloride 96 L Carbon Dioxide 17 L Anion Gap 23 H BUN 76 H Creatinine 11.76 H Est GFR ( Amer) 4 L Est GFR (MDRD) Non-Af 4 L Glucose 239 H POC Glucose Calcium 7.5 L Direct Bilirubin 0.5 H I have reviewed laboratory data and used this information for the treatment decisions regarding the patient. - Diagnostic Test Radiology reviewed: Image reviewed, Reports reviewed - Chest x-ray with cardiomegaly and interstitial changes compatible to prior x-ray, no new infiltrates or opacities Discharge - Discharge Clinical Impression: End stage renal disease, ESRD (end stage renal disease) on dialysis, Morbid obesity Sinusitis Qualifiers: Sinusitis location: unspecified location Chronicity: unspecified Qualified Code(s): J32.9 - Chronic sinusitis, unspecified Nausea and vomiting Qualifiers: Vomiting type: unspecified Vomiting Intractability: unspecified Qualified Code(s): R11.2 - Nausea with vomiting, unspecified Headache Qualifiers: Headache type: unspecified Headache chronicity pattern: episodic headache Intractability: not intractable Qualified Code(s): R51 - Headache Acute pharyngitis Qualifiers: Pharyngitis/tonsillitis etiology: unspecified etiology Qualified Code(s): J02.9 - Acute pharyngitis, unspecified Hypertension Qualifiers: Hypertension type: unspecified Qualified Code(s): I10 - Essential (primary) hypertension Condition: Stable Disposition: HOME, SELF-CARE Prescriptions: Hydroxyzine HCl [Atarax 25 mg Tablet] 1 - 2 tab PO QID #25 tablet Amox Tr/Potassium Clavulanate [Augmentin 875-125 Tablet] 1 tab PO BID 10 Days tablet Referrals: HILARY HERNANDEZ MD [Primary Care Provider] - Follow up as needed
[2019-10-15] MEDS ORDERED: HYDROMORPHONE HCL INJ/PF 2 MG/ML AMPULE IM ONE (16:43)
[2019-10-15 17:17] LABS: VENOUS BLOOD BASE EXCESS -5.2 mmol/L; VENOUS BLOOD HCO3 21.1 mmol/L (20-32); VENOUS BLOOD PCO2 44.5 mmHg (35-63); VENOUS BLOOD PH 7.29 (7.30-7.42)
[2019-10-15 17:56] LABS: ABSOLUTE BASOPHILS # (AUTO) 0.1 10^3/uL (0.0-0.2); ABSOLUTE EOSINOPHILS # (AUTO) 0.3 10^3/uL (0.0-0.6); ABSOLUTE MONOCYTES (AUTO) 0.7 10^3/uL (0.1-1.4); HEMOGLOBIN 9.1 g/dL (12.0-15.5); TOTAL CELLS COUNTED % (AUTO) 100 %
[2019-10-15 18:17] LABS: ABSOLUTE LYMPHOCYTES (AUTO) 2.1 10^3/uL (0.5-4.7); ABSOLUTE NEUT (AUTO) 4.6 10^3/uL (1.7-8.2); BASOPHILS % (AUTO) 0.7 % (0-2); EOSINOPHILS % (AUTO) 3.8 % (0-6); HEMATOCRIT 27.3 % (36.0-47.0); LYMPHOCYTES % (AUTO) 27.4 % (13-45); MEAN CORPUSCULAR HEMOGLOBIN 28.6 pg (27.0-33.4); MEAN CORPUSCULAR HGB CONC 33.3 g/dL (32.0-36.0); MEAN CORPUSCULAR VOLUME 86 fl (80-97); MONOCYTES % (AUTO) 9.1 % (3-13); PLATELET COUNT 264 10^3/uL (150-450); RED BLOOD COUNT 3.18 10^6/uL (3.72-5.28); RED CELL DISTRIBUTION WIDTH 17.3 % (11.5-14.0); WHITE BLOOD COUNT 7.8 10^3/uL (4.0-10.5)
[2019-10-15 18:21] LABS: ALBUMIN 4.2 g/dL (3.5-5.0); ALKALINE PHOSPHATASE 122 U/L (38-126); ASPARTATE AMINO TRANSFERASE 15 U/L (14-36); BILIRUBIN,DIRECT 0.5 mg/dL (0.0-0.4); BILIRUBIN,TOTAL 0.6 mg/dL (0.2-1.3); BLOOD UREA NITROGEN 76 mg/dL (7-20); CALCIUM 7.5 mg/dL (8.4-10.2); CARBON DIOXIDE 17 mmol/L (22-30); CHLORIDE 96 mmol/L (98-107); GLUCOSE 239 mg/dL (75-110); POTASSIUM 4.7 mmol/L (3.6-5.0)
[2019-10-15 18:27] LABS: ANION GAP 23 (5-19)
[2019-10-15] MEDS ORDERED: PROMETHAZINE HCL INJ 25 MG/1 ML VIAL IM ONE (18:28)
[2019-10-15 19:51] VITALS: BP 152/85
== END 2019-10-15 20:12 | disposition home or self-care (01) ==
LOC: ER 15:08
DX: J02.9 Acute pharyngitis, unspecified (principal); J32.9 Chronic sinusitis, unspecified; R11.2 Nausea with vomiting, unspecified; R51 Headache; E66.01 Morbid (severe) obesity due to excess calories; E11.22 Type 2 diabetes mellitus with diabetic chronic kidney disease; I50.9 Heart failure, unspecified; I13.2 Hypertensive heart and chronic kidney disease with heart failure and with stage 5 chronic kidney disease, or end stage renal disease; N18.6 End stage renal disease; Z99.2 Dependence on renal dialysis; Z88.6 Allergy status to analgesic agent; Z88.3 Allergy status to other anti-infective agents; Z90.49 Acquired absence of other specified parts of digestive tract
CPT/HCPCS: 99283; 96372; 36415; 82962; 84703; 85025; 80053; 82803; 71046; J1170; J2550

== ENCOUNTER 2019-10-23 15:15 | Emergency (ER) | payer MEDICARE, MEDICAID ==
[2019-10-23 15:58] LABS: ABSOLUTE BASOPHILS # (AUTO) 0.1 10^3/uL (0.0-0.2); ABSOLUTE EOSINOPHILS # (AUTO) 0.3 10^3/uL (0.0-0.6); ABSOLUTE MONOCYTES (AUTO) 0.5 10^3/uL (0.1-1.4); ABSOLUTE NEUT (AUTO) 5.2 10^3/uL (1.7-8.2); BASOPHILS % (AUTO) 0.8 % (0-2); EOSINOPHILS % (AUTO) 3.4 % (0-6); HEMATOCRIT 26.8 % (36.0-47.0); HEMOGLOBIN 8.9 g/dL (12.0-15.5); LYMPHOCYTES % (AUTO) 25.2 % (13-45); MEAN CORPUSCULAR HEMOGLOBIN 28.3 pg (27.0-33.4); MEAN CORPUSCULAR HGB CONC 33.1 g/dL (32.0-36.0); MEAN CORPUSCULAR VOLUME 85 fl (80-97); MONOCYTES % (AUTO) 6.4 % (3-13); PLATELET COUNT 352 10^3/uL (150-450); RED BLOOD COUNT 3.14 10^6/uL (3.72-5.28); RED CELL DISTRIBUTION WIDTH 17.4 % (11.5-14.0); SEGMENTED NEUTROPHILS % (AUTO) 64.2 % (42-78); TOTAL CELLS COUNTED % (AUTO) 100 %; WHITE BLOOD COUNT 8.1 10^3/uL (4.0-10.5)
[2019-10-23] MEDS ORDERED: INSULIN REG, HUMAN 100 UNIT/ML 3 ML VIAL (PYX) IV ONE (16:01)
--- NOTE | 2019-10-23 16:13 | ER Document Report ---
ED General - General Chief Complaint: General Weakness Stated Complaint: WEAKNESS Time Seen by Provider: 10/23/19 15:40 Primary Care Provider: HILARY HERNANDEZ MD [Primary Care Provider] - Follow up tomorrow Notes: 34-year-old female with past medical history of hemodialysis, diabetes, and DKA presents with generalized weakness, sore throat, myalgias for the past few weeks. Patient denies any chest pain, dyspnea, nausea/vomiting, abdominal pain. Patient was seen in this ER for sore throat on 10/15 and was prescribed Augmentin that she states she has been taking. Patient has also been placed on 2 other antibiotics for sore throat. Pt states this does not feel like DKA. Pt is also complaining of right knee pain. Denies any injuries. Pt does not make urine. Pt goes to dialysis on MWF but did not go today. TRAVEL OUTSIDE OF THE [place] IN LAST 30 DAYS: No - Related Data Allergies/Adverse Reactions: aspirin [Aspirin] Allergy (Verified 10/15/19 15:18) Anaphylaxis ciprofloxacin [From Cipro] Allergy (Verified 10/15/19 15:18) Anaphylaxis clindamycin [Clindamycin] Allergy (Verified 10/15/19 15:18) hydrocodone [From Vicodin] Allergy (Verified 10/15/19 15:18) ibuprofen [From Motrin] Allergy (Verified 10/15/19 15:18) Anaphylaxis lidocaine [From Lidoderm] Allergy (Verified 10/15/19 15:18) Generalized rash tramadol HCl [From Ultram] Allergy (Verified 10/15/19 15:18) vancomycin [Vancomycin] Allergy (Verified 10/15/19 15:18) Shortness of Breath nitroglycerin [Nitroglycerin] Adverse Reaction (Intermediate, Verified 10/15/19 15:18) Joint pain Past Medical History - Social History Smoking Status: Unknown if Ever Smoked Family History: Reviewed & Not Pertinent Patient has suicidal ideation: No Patient has homicidal ideation: No - Past Medical History Cardiac Medical History: Reports: Hx Congestive Heart Failure, Hx Coronary Artery Disease, Hx Hypertension, Hx Heart Murmur Pulmonary Medical History: Reports: Hx Asthma, Hx Pneumonia Neurological Medical History: Reports: Hx Migraine, Hx Seizures - only r/t low calcium. Denies: Hx Parkinson's Disease Endocrine Medical History: Reports: Hx Diabetes Mellitus Type 1, Hx Diabetes Mellitus Type 2 Renal/ Medical History: Reports: Hx End Stage Renal Disease - On hemodialysis M-[id number], Hx Hemodialysis, Hx Ovarian Cysts. Denies: Hx Peritoneal Dialysis Malignancy Medical History: GI Medical History: Reports: Hx Gastritis Musculoskeletal Medical History: Skin Medical History: Reports Hx Psoriasis Psychiatric Medical History: Reports: Hx Depression Traumatic Medical History: Infectious Medical History: Past Surgical History: Reports: Hx Appendectomy, Hx Cholecystectomy, Hx Vascular Surgery - Lt AV Fistula and graft; Rt AV fistula - Immunizations Immunizations up to date: Yes Hx Diphtheria, Pertussis, Tetanus Vaccination: Yes Hx Pneumococcal Vaccination: 08/22/11 Review of Systems - Review of Systems Notes: Constitutional: Negative for fever. HENT: Positive for sore throat. Eyes: Negative for visual changes. Cardiovascular: Negative for chest pain. Respiratory: Negative for shortness of breath. Gastrointestinal: Negative for abdominal pain, vomiting or diarrhea. Musculoskeletal: Positive for myalgias. Negative for back pain. Skin: Negative for rash. Neurological: Positive for generalized weakness. Negative for headaches or numbness. 10 point ROS negative except as marked above and in HPI. Physical Exam - Vital signs Vitals: Temp Resp BP Pulse Ox 98.4 F 17 170/96 H 94 10/23/19 15:27 10/23/19 15:27 10/23/19 15:27 10/23/19 15:27 - Notes Notes: GENERAL: Well-appearing, well-nourished and in no acute distress. HEAD: Atraumatic, normocephalic. EYES: Pupils equal round and reactive to light, extraocular movements intact, sclera anicteric, conjunctiva are normal. ENT: TMs normal, nares patent, oropharynx clear without exudates. Moist mucous membranes. No trismus. Mild tonsilar hypertrophy without exudates or erythema. Uvula midline without edema. No muffled voice. Speaks full sentences without difficulty. NECK: Normal range of motion, supple without lymphadenopathy or JVD. LUNGS: Breath sounds clear to auscultation bilaterally and equal. No wheezes rales or rhonchi. HEART: Regular rate and rhythm without murmurs, rubs or gallops. ABDOMEN: Soft, nontender. No guarding, no rebound. No masses appreciated. EXTREMITIES: Normal range of motion, no pitting or edema. No clubbing or cyanosis. Right knee -- FROM, mild tenderness, no effusion NEUROLOGICAL: Cranial nerves II through XII grossly intact. Normal speech, normal gait. PSYCH: Normal mood, normal affect. SKIN: Warm, Dry, normal turgor, no rashes or lesions noted. Course - Re-evaluation Re-evalutation: 10/23/19 34 y/o female presents for generalized weakness, malaise, myalgias, and sore throat for several weeks. Pt has been seen multiple times for sore throat and has been on 3 different antibiotics, pt is currently taking Augmentin. Per EMS, pt had a "high" glucose and was given her home dose of 12 units of insulin. Pt's bgl 480 upon arrival to ER. Pt is nontoxic, well appearing. Throat - mild tonsillar hypertrophy without exudates/erythema, no trismus, no muffled voice, tongue without edema, pt handling secretions well. RRR. Lungs clear to auscultation bilaterally. Labwork initiated. Considering infectious vs DKA. 10/23/19 17:48 Labwork shows anemia which is at baseline. pH on VBG is at baseline. Potassium mildly elevated. Pt did miss dialysis today. Anion gap of 22 however this is near pt's baseline. Lipase mildly elevated however no abdominal pain. Pt was given insulin with improvement in her blood glucose. CXR showed mild edema. Discussed pt with Dr. Ratliff, attending, who agrees with plan of care. Discussed results with pt and instructed pt to go to dialysis tomorrow. Pt also given close follow up with PCP. Strict return precautions given/discussed. Pt voices understanding and agrees with plan of care. - Vital Signs Vital signs: Temp Pulse Resp BP Pulse Ox 98.4 F 98 17 113/54 L 98 10/23/19 15:27 10/23/19 19:32 10/23/19 19:32 10/23/19 19:32 10/23/19 19:32 - Laboratory Result Diagrams: 10/23/19 15:35 10/23/19 15:35 Laboratory results interpreted by me: 10/23/19 10/23/19 10/23/19 15:30 15:35 15:35 RBC 3.14 L Hgb 8.9 L Hct 26.8 L RDW 17.4 H VBG pH Sodium 129.3 L Potassium 5.3 H Chloride 90 L Carbon Dioxide 17 L Anion Gap 22 H BUN 105 H Creatinine 14.41 H Est GFR ( Amer) 4 L Est GFR (MDRD) Non-Af 3 L Glucose 478 H* POC Glucose 470 H* Calcium 7.5 L Direct Bilirubin 1.0 H Total Protein 8.4 H Lipase 592.9 H 10/23/19 10/23/19 10/23/19 15:36 16:12 17:46 RBC Hgb Hct RDW VBG pH 7.23 L Sodium Potassium Chloride Carbon Dioxide Anion Gap BUN Creatinine Est GFR ( Amer) Est GFR (MDRD) Non-Af Glucose POC Glucose 482 H* 215 H Calcium Direct Bilirubin Total Protein Lipase 10/23/19 19:01 RBC Hgb Hct RDW VBG pH Sodium Potassium Chloride Carbon Dioxide Anion Gap BUN Creatinine Est GFR ( Amer) Est GFR (MDRD) Non-Af Glucose POC Glucose 186 H Calcium Direct Bilirubin Total Protein Lipase Discharge - Discharge Clinical Impression: Malaise, Hyperglycemia Condition: Stable Disposition: HOME, SELF-CARE Instructions: Hyperglycemia ([facility]), Malaise ([facility]) Additional Instructions: Your workup today was reassuring. Your chest x-ray showed mild fluid. Please go to dialysis tomorrow. Your flu test was negative. Your strep test was negative. Please finish your antibiotic as prescribed. Follow up with your primary care doctor in 1-3 days. Return to ER for any worsening symptoms, including fever, shortness of breath, unable to open mouth, chest pain, abdominal pain, nausea/vomiting, or any other symptoms that are concerning to you. Referrals: HILARY HERNANDEZ MD [Primary Care Provider] - Follow up tomorrow
[2019-10-23 16:17] LABS: ALBUMIN 4.5 g/dL (3.5-5.0); ALKALINE PHOSPHATASE 123 U/L (38-126); ASPARTATE AMINO TRANSFERASE 16 U/L (14-36); BLOOD UREA NITROGEN 105 mg/dL (7-20); CALCIUM 7.5 mg/dL (8.4-10.2); POTASSIUM 5.3 mmol/L (3.6-5.0); TOTAL PROTEIN 8.4 g/dL (6.3-8.2)
[2019-10-23 16:22] LABS: CARBON DIOXIDE 17 mmol/L (22-30); CHLORIDE 90 mmol/L (98-107)
[2019-10-23 16:26] LABS: VENOUS BLOOD BASE EXCESS -7.4 mmol/L; VENOUS BLOOD PCO2 49.3 mmHg (35-63); VENOUS BLOOD PH 7.23 (7.30-7.42)
[2019-10-23 16:27] LABS: A TYPE INFLUENZA AG NEGATIVE (NEGATIVE); B INFLUENZA AG NEGATIVE (NEGATIVE)
[2019-10-23 16:34] LABS: GLUCOSE 478 mg/dL (75-110)
[2019-10-23 16:35] LABS: ANION GAP 22 (5-19)
--- NOTE | 2019-10-23 16:36 | RADIOLOGY REPORT (SQ) ---
EXAM DESCRIPTION: CHEST 2 VIEWS COMPLETED DATE/TIME: 10/23/2019 4:22 pm REASON FOR STUDY: malaise COMPARISON: 10/15/2019 EXAM PARAMETERS: NUMBER OF VIEWS: two views TECHNIQUE: Digital Frontal and Lateral radiographic views of the chest acquired. RADIATION DOSE: NA LIMITATIONS: none FINDINGS: LUNGS AND PLEURA: Again seen is perihilar and basilar predominant fluffy opacities. No si gnificant pleural effusion. No pneumothorax. MEDIASTINUM AND HILAR STRUCTURES: Fluffy perihilar opacities bilaterally, stable. HEART AND VASCULAR STRUCTURES: Enlarged cardiac silhouette, mildly increased from prior. Central vas cular congestion. BONES: No acute findings. HARDWARE: Vascular stent overlie right axilla and subclavian vein. OTHER: No other significant finding. IMPRESSION: Mildly increased fluffy perihilar and basilar opacities suggestive of edema. Enlarged c ardiac silhouette TECHNICAL DOCUMENTATION: JOB ID: [id number] [employer]- All Rights Reserved Reading location - IP/workstation name: [email or web address]
[2019-10-23] MEDS ORDERED: OXYCODONE-ACETAMINOPHEN 5-325 MG TABLET PO ONE (18:44)
[2019-10-23 20:10] VITALS: BP 127/65
--- NOTE | 2019-10-23 22:29 | EKG REPORT ---
SEVERITY:- ABNORMAL ECG - SINUS RHYTHM FIRST DEGREE AV BLOCK BORDERLINE LEFT AXIS DEVIATION PROLONGED QT INTERVAL : Confirmed by: Beatriz Leyva MD 23-Oct-2019 22:28:41
== END 2019-10-23 20:11 | disposition home or self-care (01) ==
LOC: ER 15:15
DX: E10.65 Type 1 diabetes mellitus with hyperglycemia (principal); R53.81 Other malaise; R53.1 Weakness; J02.9 Acute pharyngitis, unspecified; M79.10 Myalgia, unspecified site; M25.561 Pain in right knee; I50.9 Heart failure, unspecified; I25.10 Atherosclerotic heart disease of native coronary artery without angina pectoris; I11.0 Hypertensive heart disease with heart failure; J45.909 Unspecified asthma, uncomplicated; N18.6 End stage renal disease; Z99.2 Dependence on renal dialysis
CPT/HCPCS: 93005; 99285; 36415; 87070; 87880; 82962; 83690; 84703; 85025; 80053; 82803; 83605; 87804; 71046; 93010; A9270 ×2; J1815

== ENCOUNTER 2019-10-24 06:14 | Inpatient (IN) | payer MEDICARE, MEDICAID ==
[2019-10-24] MEDS ORDERED: METOCLOPRAMIDE HCL INJ/PF 10 MG/2 ML SDV IV ONE (07:06)
[2019-10-24] MEDS ORDERED: NITROGLYCERIN 2% OINTMENT 1 GM PACKET TP ONE (07:07)
[2019-10-24] MEDS ORDERED: DIPHENHYDRAMINE HCL 50 MG/ML VIAL IV ONE ×2 (07:07→07:43)
[2019-10-24] MEDS ORDERED: ENALAPRILAT DIHYDRATE INJ/PF 1.25 MG/1 ML SDV IV ONE (07:08)
[2019-10-24] MEDS ORDERED: HYDRALAZINE HCL INJ/PF 20 MG/1 ML SDV IV ONE (07:13)
--- NOTE | 2019-10-24 07:22 | ER Document Report ---
ED General - General Chief Complaint: Headache Stated Complaint: HEADACHE Time Seen by Provider: 10/24/19 06:34 Notes: 34 year old female with multiple comorbidities and here with complaints of frontal headache of gradual onset. No fever. Recently diagnosed with sinusitis. TRAVEL OUTSIDE OF THE [place] IN LAST 30 DAYS: No - Related Data Allergies/Adverse Reactions: aspirin [Aspirin] Allergy (Verified 10/24/19 06:24) Anaphylaxis ciprofloxacin [From Cipro] Allergy (Verified 10/24/19 06:24) Anaphylaxis clindamycin [Clindamycin] Allergy (Verified 10/24/19 06:24) hydrocodone [From Vicodin] Allergy (Verified 10/24/19 06:24) ibuprofen [From Motrin] Allergy (Verified 10/24/19 06:24) Anaphylaxis lidocaine [From Lidoderm] Allergy (Verified 10/24/19 06:24) Generalized rash tramadol HCl [From Ultram] Allergy (Verified 10/24/19 06:24) vancomycin [Vancomycin] Allergy (Verified 10/24/19 06:24) Shortness of Breath nitroglycerin [Nitroglycerin] Adverse Reaction (Intermediate, Verified 10/24/19 06:24) Joint pain Past Medical History - Social History Smoking Status: Current Every Day Smoker Chew tobacco use (# tins/day): No Frequency of alcohol use: None Drug Abuse: None Family History: Reviewed & Not Pertinent Patient has suicidal ideation: No Patient has homicidal ideation: No - Past Medical History Cardiac Medical History: Reports: Hx Congestive Heart Failure, Hx Coronary Artery Disease, Hx Hypertension, Hx Heart Murmur Pulmonary Medical History: Reports: Hx Asthma, Hx Pneumonia Neurological Medical History: Reports: Hx Migraine, Hx Seizures - only r/t low calcium. Denies: Hx Parkinson's Disease Endocrine Medical History: Reports: Hx Diabetes Mellitus Type 1, Hx Diabetes Mellitus Type 2 Renal/ Medical History: Reports: Hx End Stage Renal Disease - On hemodialysis -W-, Hx Hemodialysis, Hx Ovarian Cysts. Denies: Hx Peritoneal Dialysis Malignancy Medical History: GI Medical History: Reports: Hx Gastritis Musculoskeletal Medical History: Skin Medical History: Reports Hx Psoriasis Psychiatric Medical History: Reports: Hx Depression Traumatic Medical History: Infectious Medical History: Past Surgical History: Reports: Hx Appendectomy, Hx Cholecystectomy, Hx Vascular Surgery - Lt AV Fistula and graft; Rt AV fistula - Immunizations Immunizations up to date: Yes Hx Diphtheria, Pertussis, Tetanus Vaccination: Yes Hx Pneumococcal Vaccination: 08/22/11 Review of Systems - Review of Systems Constitutional: See HPI, Malaise, Weakness EENT: No symptoms reported Cardiovascular: No symptoms reported Respiratory: See HPI, Cough, Short of breath, Wheezing Gastrointestinal: See HPI, Vomiting Genitourinary: No symptoms reported Female Genitourinary: No symptoms reported Musculoskeletal: No symptoms reported Skin: No symptoms reported Hematologic/Lymphatic: No symptoms reported Neurological/Psychological: No symptoms reported Physical Exam - Vital signs Vitals: Resp 0 L 10/24/19 01:27 Interpretation: Normal - General General appearance: Appears well, Alert - HEENT Head: Normocephalic, Atraumatic Eyes: Normal Pupils: PERRL - Respiratory Respiratory status: Respiratory distress, Tachypnea. No: No respiratory distress, Tripod position Chest status: Nontender. No: Tender Breath sounds: Decreased air movement, Rhonchi, Wheezing. No: Normal Chest palpation: Normal - Cardiovascular Rhythm: Regular Heart sounds: Normal auscultation Murmur: No - Abdominal Inspection: Normal Distension: No distension Bowel sounds: Normal Tenderness: Nontender Organomegaly: No organomegaly - Back Back: Normal, Nontender - Extremities General upper extremity: Normal inspection, Nontender, Normal color, Normal ROM, Normal temperature General lower extremity: Normal inspection, Nontender, Normal color, Normal ROM, Normal temperature, Normal weight bearing. No: Lina's sign - Neurological Neuro grossly intact: Yes Cognition: Normal Orientation: AAOx4 Hellen Coma Scale Eye Opening: Spontaneous Odin Coma Scale Verbal: Oriented Hellen Coma Scale Motor: Obeys Commands Hellen Coma Scale Total: 15 Speech: Normal Motor strength normal: LUE, RUE, LLE, RLE Sensory: Normal - Psychological Associated symptoms: Normal affect, Normal mood - Skin Skin Temperature: Warm Skin Moisture: Dry Skin Color: Normal Course - Re-evaluation Re-evalutation: 10/24/19 08:46 mdm I have called Dr. Kwon and am awaiting a call back. 10/24/19 09:22 I have spoken with Dr. Kwon and Dr. Carlson and they will graciously see and evaluate the pt for admission and hemodialysis. - Vital Signs Vital signs: Temp Pulse Resp BP Pulse Ox 100.0 F 104 H 26 H 142/68 H 100 10/24/19 12:01 10/24/19 14:01 10/24/19 14:18 10/24/19 14:18 10/24/19 14:18 - Laboratory Result Diagrams: 10/24/19 06:30 10/24/19 10:30 Laboratory results interpreted by me: 10/24/19 10/24/19 10/24/19 06:30 06:30 06:36 RBC 3.25 L Hgb 9.1 L Hct 28.0 L RDW 16.8 H ABG pH ABG pO2 ABG HCO3 ABG Total CO2 ABG O2 Saturation Sodium 134.7 L Potassium 5.6 H Chloride 95 L Carbon Dioxide 16 L Anion Gap 24 H BUN 115 H Creatinine 16.22 H Est GFR ( Amer) 3 L Est GFR (MDRD) Non-Af 3 L Glucose 346 H POC Glucose 357 H Calcium 7.3 L Direct Bilirubin 1.2 H Alkaline Phosphatase 133 H Total Protein 8.6 H 10/24/19 10/24/19 10/24/19 09:45 10:30 10:33 RBC Hgb Hct RDW ABG pH 7.25 L ABG pO2 74.4 L ABG HCO3 16.3 L ABG Total CO2 17.5 L ABG O2 Saturation 92.8 L Sodium 134.7 L Potassium 6.2 H* Chloride 95 L Carbon Dioxide 14 L Anion Gap 26 H BUN 122 H Creatinine 17.12 H Est GFR ( Amer) 3 L Est GFR (MDRD) Non-Af 2 L Glucose 364 H POC Glucose 385 H Calcium 7.2 L Direct Bilirubin Alkaline Phosphatase Total Protein - Diagnostic Test Radiology reviewed: Image reviewed, Reports reviewed Critical Care Note - Critical Care Note Total time excluding time spent on procedures (mins): 30 Discharge - Discharge Clinical Impression: Acute diastolic (congestive) heart failure, End stage renal disease on dialysis due to type 1 diabetes mellitus, Acute metabolic encephalopathy DKA (diabetic ketoacidoses) Qualifiers: Diabetes mellitus type: type 1 Diabetes mellitus complication detail: without coma Qualified Code(s): E10.10 - Type 1 diabetes mellitus with ketoacidosis without coma Condition: Critical Disposition: ADMITTED INPATIENT Admitting Provider: Robyn (B[facility] Driver) Unit Admitted: ICU
[2019-10-24 07:23] LABS: ALBUMIN 4.5 g/dL (3.5-5.0); ALKALINE PHOSPHATASE 133 U/L (38-126); ASPARTATE AMINO TRANSFERASE 16 U/L (14-36); BILIRUBIN,DIRECT 1.2 mg/dL (0.0-0.4); BILIRUBIN,TOTAL 1.2 mg/dL (0.2-1.3); BLOOD UREA NITROGEN 115 mg/dL (7-20); CALCIUM 7.3 mg/dL (8.4-10.2); GLUCOSE 346 mg/dL (75-110); POTASSIUM 5.6 mmol/L (3.6-5.0); TOTAL PROTEIN 8.6 g/dL (6.3-8.2)
[2019-10-24 07:29] LABS: CARBON DIOXIDE 16 mmol/L (22-30); CHLORIDE 95 mmol/L (98-107)
[2019-10-24 07:30] LABS: ANION GAP 24 (5-19)
[2019-10-24 07:34] LABS: ABSOLUTE BASOPHILS # (AUTO) 0.1 10^3/uL (0.0-0.2); ABSOLUTE EOSINOPHILS # (AUTO) 0.3 10^3/uL (0.0-0.6); ABSOLUTE LYMPHOCYTES (AUTO) 1.9 10^3/uL (0.5-4.7); ABSOLUTE MONOCYTES (AUTO) 0.3 10^3/uL (0.1-1.4); ABSOLUTE NEUT (AUTO) 7.2 10^3/uL (1.7-8.2); BASOPHILS % (AUTO) 0.8 % (0-2); EOSINOPHILS % (AUTO) 3.2 % (0-6); HEMOGLOBIN 9.1 g/dL (12.0-15.5); LYMPHOCYTES % (AUTO) 19.6 % (13-45); MEAN CORPUSCULAR HEMOGLOBIN 28.1 pg (27.0-33.4); MEAN CORPUSCULAR HGB CONC 32.6 g/dL (32.0-36.0); MEAN CORPUSCULAR VOLUME 86 fl (80-97); MONOCYTES % (AUTO) 3.4 % (3-13); PLATELET COUNT 411 10^3/uL (150-450); RED BLOOD COUNT 3.25 10^6/uL (3.72-5.28); RED CELL DISTRIBUTION WIDTH 16.8 % (11.5-14.0); TOTAL CELLS COUNTED % (AUTO) 100 %; WHITE BLOOD COUNT 9.8 10^3/uL (4.0-10.5)
[2019-10-24] MEDS ORDERED: ALBUTEROL SULFATE 0.083% NEB 2.5 MG/3 ML AMPUL NEB ONE (07:55)
[2019-10-24] MEDS ORDERED: INSULIN REG, HUMAN 100 UNIT/ML 3 ML VIAL (PYX) IV ONE (08:44)
--- NOTE | 2019-10-24 08:50 | RADIOLOGY REPORT (SQ) ---
EXAM DESCRIPTION: CHEST SINGLE VIEW COMPLETED DATE/TIME: 10/24/2019 8:34 am REASON FOR STUDY: Cough COMPARISON: 10/23/2019 EXAM PARAMETERS: NUMBER OF VIEWS: One view. TECHNIQUE: Single frontal radiographic view of the chest acquired. RADIATION DOSE: NA LIMITATIONS: None. FINDINGS: LUNGS AND PLEURA: Interval worsening in the appearance of the lungs, slightly more so on the right. Diffuse fairly extensive bilateral perihilar opacities, may be on the basis of edema. No pneumothorax or pleural effusion. MEDIASTINUM AND HILAR STRUCTURES: Stable appearance. HEART AND VASCULAR STRUCTURES: Cardiomegaly and pulmonary vascular congestion, again noted. BONES: No acute findings. HARDWARE: Vascular stent overlies the right axillary and subclavian veins, unchanged finding. OTHER: No other significant finding. IMPRESSION: 1. Since the previous examination dated 10/23/2019, interval worsening with diffuse fair ly extensive bilateral perihilar opacities, may represent edema. 2. Cardiomegaly and pulmonary vascular congestion. COMMENT: 1. The results of this examination were discussed with the emergency department provider barbara garcia 10/24/2019 at 08:40 hours. TECHNICAL DOCUMENTATION: JOB ID: [id number] [employer]- All Rights Reserved Reading location - IP/workstation name: [email or web address]
[2019-10-24] MEDS ORDERED: ONDANSETRON HCL INJ/PF 4 MG/2 ML SDV ONE (09:21)
[2019-10-24] MEDS ORDERED: ONDANSETRON HCL INJ/PF 4 MG/2 ML SDV IV ONE (09:22)
[2019-10-24] MEDS ORDERED: DEXTROSE 50%-WATER 25 GM/50 ML DISP.SYRIN IV PRN ×6 (09:24→11:22)
[2019-10-24] MEDS ORDERED: DEXTROSE 40% GEL 15 GM TUBE PO PRN ×6 (09:24→11:22)
[2019-10-24] MEDS ORDERED: GLUCAGON,HUMAN RECOMB 1 MG INJ IM PRN (09:24)
[2019-10-24] MEDS ORDERED: NORMAL SALINE 100 ML with INSULIN REGULAR, HUMAN 100 UNIT IV PRN ×2 (09:24)
[2019-10-24 10:20] LABS: ARTERIAL BLOOD BASE EXCESS -10.1 mmol/L; ARTERIAL BLOOD FIO2 40%; ARTERIAL BLOOD H2CO3 1.14 mmol/L (1.05-1.35); ARTERIAL BLOOD HCO3 16.3 mmol/L (20-24); ARTERIAL BLOOD O2 SATURATION 92.8 % (94-98); ARTERIAL BLOOD PH 7.25 (7.35-7.45); ARTERIAL BLOOD PO2 74.4 mmHg (80-100); ARTERIAL BLOOD TOTAL CO2 17.5 mmol/L (21-25)
[2019-10-24 10:58] LABS: CALCIUM 7.2 mg/dL (8.4-10.2); GLUCOSE 364 mg/dL (75-110)
[2019-10-24 11:08] LABS: CARBON DIOXIDE 14 mmol/L (22-30); CHLORIDE 95 mmol/L (98-107)
[2019-10-24 11:12] LABS: BLOOD UREA NITROGEN 122 mg/dL (7-20)
[2019-10-24 11:14] LABS: ANION GAP 26 (5-19)
[2019-10-24] MEDS ORDERED: GLUCAGON,HUMAN RECOMB 1 MG INJ SUBCUT PRN (11:17)
[2019-10-24 12:19] LABS: ARTERIAL BLOOD BASE EXCESS -12.7 mmol/L; ARTERIAL BLOOD FIO2 40%; ARTERIAL BLOOD H2CO3 0.98 mmol/L (1.05-1.35); ARTERIAL BLOOD HCO3 13.6 mmol/L (20-24); ARTERIAL BLOOD O2 SATURATION 73.6 % (94-98); ARTERIAL BLOOD PCO2 32.6 mmHg (35-45); ARTERIAL BLOOD PH 7.24 (7.35-7.45); ARTERIAL BLOOD PO2 44.8 mmHg (80-100); ARTERIAL BLOOD TOTAL CO2 14.6 mmol/L (21-25)
[2019-10-24 12:41] LABS: POTASSIUM 6.2 mmol/L (3.6-5.0)
--- NOTE | 2019-10-24 12:46 | PDOC CONSULTATION ---
Consultation Consult Date: 10/24/19 Provider Consulted: Lazarus OLIVARES Consult reason:: ESRD in respiratory failure History of Present Illness Admission Date/PCP: 10/24/19 11:00 HILARY HERNANDEZ MD History of Present Illness: ERICH GOODMAN is a 34 year old female with a complex past medical history that includes ESRD on hemodialysis in the background of diabetes mellitus type 1, hypertension, seizure disorder, morbid obesity, severe noncompliance with diet medications and dialysis was admitted with history of progressive shortness of breath acute on chronic headaches from the ER. She is currently on BiPAP in the ICU and not very talkative. She answers in monosyllables. Therefore chart review was done and discussions were done with the treating nurse. I am currently seeing the patient while she is undergoing dialysis as well. Has had a history of severe noncompliance with diet and medications and fluid intake. She has had multiple admissions in the past history of hypertension and congestive heart failure in the face of missing out on many of her dialysis treatments.Labs and medications were reviewed. As usual she is chronically hyperkalemic. Imaging studies shows possibility of bronchopneumonia with added congestive heart failure. Dialysis orders were reviewed with the treating dialysis nurse Past Medical History Cardiac Medical History: Reports: Coronary Artery Disease, Heart Murmur, Hypertension-primary Pulmonary Medical History: Reports: Asthma, Pneumonia Neurological Medical History: Reports: Migraine, Seizures - only r/t low calcium Endocrine Medical History: Reports: Diabetes Mellitus Type 1 Complications of Diabetes: Reports: Autonomic Neuropathy, Nephropathy, Retinopathy Renal/ Medical History: Reports: End Stage Renal Disease - On hemodialysis M-W-F, Hypocalcemia, Hyperkalemia, Hyperphosphatemia, Secondary Hyperparathyroidism Malignancy Medical History: GI Medical History: Musculoskeltal Medical History: Skin Medical History: Reports: Psoriasis Psychiatric Medical History: Reports: Depression Infectious Medical History: Hematology Medical History: Reports Anemia of Chronic Kidney Disease Past Surgical History Past Surgical History: Reports: Appendectomy, Cholecystectomy, Dialysis Access Surgery AVF, Vascular Surgery - Lt AV Fistula and graft; Rt AV fistula Social History Smoking Status: Current Every Day Smoker Electronic Cigarette use?: No Frequency of Alcohol Use: Occasional Hx Recreational Drug Use: No Drugs: None Hx Prescription Drug Abuse: No - Advance Directive Resuscitation Status: Full Code Family History Parental Family History Reviewed: Yes - negative for esrd Children Family History Reviewed: No Sibling(s) Family History Reviewed.: No Medication/Allergy Home Medications: Calcium Acetate [Phoslo 667 mg Capsule] 1,334 mg PO .BIDWITHSNACKS 09/25/19 Calcium Acetate [Phoslo 667 mg Capsule] 2,001 mg PO Q8 09/25/19 Furosemide [Lasix 80 mg Tablet] 80 mg PO Q8 09/25/19 Gabapentin Enacarbil [Horizant] 300 mg PO MOWEFR@1000 09/25/19 Insulin Detemir [Levemir] 35 unit SQ BID 09/25/19 Insulin Lispro [Humalog Insulin (Lispro) 100 unit/mL] 0 unit SUBCUT .SLD SCALE 09/25/19 Nifedipine [Procardia XL 60 mg Tablet] 60 mg PO Q12 09/25/19 Oxcarbazepine [Trileptal] 300 mg PO Q12 09/25/19 Oxycodone HCl/Acetaminophen [Percocet 7.5-325 mg Tablet] 1 each PO QIDP PRN 09/25/19 Paroxetine HCl [Paxil] 80 mg PO QPM 09/25/19 Sodium Polystyrene Sulfonate [Kayexalate 15 gm/60 ml Susp 60 ml] 30 gm PO SRIVASTAVA@1 000 09/25/19 Calcitriol [Rocaltrol 0.25 mcg Capsule] 0.5 mcg PO BID #180 capsule 10/03/19 Docusate Sodium [Colace 100 mg Capsule] 100 mg PO BID capsule 10/03/19 Glucagon,Human Recombinant [Glucagen Inj 1 mg Vial] 1 mg IM PRN PRN vial 10/03/19 Guaifenesin [Mucinex Sr 600 mg Tablet.sa] 600 mg PO BID tablet.sa 10/03/19 Loratadine [Claritin 10 mg Tablet] 10 mg PO DAILY #90 tablet 10/03/19 Amox Tr/Potassium Clavulanate [Augmentin 875-125 Tablet] 1 tab PO BID 10 Days tablet 10/15/19 Hydroxyzine HCl [Atarax 25 mg Tablet] 1 - 2 tab PO QID #25 tablet 10/15/19 Allergies/Adverse Reactions: aspirin [Aspirin] Allergy (Verified 10/24/19 06:24) Anaphylaxis ciprofloxacin [From Cipro] Allergy (Verified 10/24/19 06:24) Anaphylaxis clindamycin [Clindamycin] Allergy (Verified 10/24/19 06:24) hydrocodone [From Vicodin] Allergy (Verified 10/24/19 06:24) ibuprofen [From Motrin] Allergy (Verified 10/24/19 06:24) Anaphylaxis lidocaine [From Lidoderm] Allergy (Verified 10/24/19 06:24) Generalized rash tramadol HCl [From Ultram] Allergy (Verified 10/24/19 06:24) vancomycin [Vancomycin] Allergy (Verified 10/24/19 06:24) Shortness of Breath nitroglycerin [Nitroglycerin] Adverse Reaction (Intermediate, Verified 10/24/19 06:24) Joint pain Review of Systems ROS unobtainable: Due to mental status Constitutional: PRESENT: fatigue, headache(s), weakness. ABSENT: anorexia, fever(s), night sweats Nose, Mouth, and Throat: ABSENT: mouth pain, sore throat Cardiovascular: PRESENT: dyspnea on exertion, edema. ABSENT: chest pain, orthropnea Respiratory: PRESENT: cough, dyspnea. ABSENT: hemoptysis Gastrointestinal: PRESENT: nausea. ABSENT: abdominal pain, coffee ground emesis, diarrhea, dysphagia, heartburn, hematemesis, hematochezia Musculoskeletal: ABSENT: deformity, joint swelling Integumentary: ABSENT: lesions, pruritus, rash Neurological: PRESENT: numbness. ABSENT: as per HPI, abnormal movements, abnormal speech, confusion, convulsions, focal weakness, frequent falls Hematologic/Lymphatic: ABSENT: easy bruising, lymphadenopathy Physical Exam Vital Signs: Temp Pulse Resp BP Pulse Ox 99.7 F 105 H 35 H 172/78 H 100 10/24/19 12:01 10/24/19 12:01 10/24/19 12:01 10/24/19 12:01 10/24/19 12:01 Intake & Output 10/23/19 10/24/19 10/25/19 06:59 06:59 06:59 Intake Total 6 Balance 6 Weight 129.1 kg 129.3 kg General appearance: PRESENT: mild distress Exam: on bipap. Eye exam: PRESENT: EOMI, PERRLA. ABSENT: scleral icterus Ear exam: PRESENT: normal external ear exam Neck exam: ABSENT: lymphadenopathy, meningismus, tenderness, thyromegaly, trac heal deviation Respiratory exam: PRESENT: clear to auscultation freddy, crackles, decreased breath sounds. ABSENT: rhonchi Cardiovascular exam: PRESENT: +S1, +S2 GI/Abdominal exam: PRESENT: normal bowel sounds, soft. ABSENT: organomegaly, tenderness Extremities exam: PRESENT: +1 edema. ABSENT: calf tenderness, clubbing Neurological exam: PRESENT: altered Skin exam: ABSENT: erythema, mottled, rash Results Laboratory Results: 10/24/19 06:30 10/24/19 10:30 10/24/19 10/24/19 10/24/19 06:30 06:30 06:30 WBC 9.8 RBC 3.25 L Hgb 9.1 L Hct 28.0 L MCV 86 MCH 28.1 MCHC 32.6 RDW 16.8 H Plt Count 411 Seg Neutrophils % 73.0 Carbonic Acid HCO3/H2CO3 Ratio ABG pH ABG pCO2 ABG pO2 ABG HCO3 ABG O2 Saturation ABG Base Excess FiO2 Sodium 134.7 L Potassium 5.6 H Chloride 95 L Carbon Dioxide 16 L Anion Gap 24 H BUN 115 H Creatinine 16.22 H Est GFR ( Amer) 3 L Glucose 346 H Lactic Acid Calcium 7.3 L Total Bilirubin 1.2 AST 16 Alkaline Phosphatase 133 H Total Protein 8.6 H Albumin 4.5 TSH 2.04 10/24/19 10/24/19 10/24/19 09:45 09:45 10:30 WBC RBC Hgb Hct MCV MCH MCHC RDW Plt Count Seg Neutrophils % Carbonic Acid 1.14 HCO3/H2CO3 Ratio 14:1 ABG pH 7.25 L ABG pCO2 38.0 ABG pO2 74.4 L ABG HCO3 16.3 L ABG O2 Saturation 92.8 L ABG Base Excess -10.1 FiO2 40% Sodium 134.7 L Potassium 6.2 H* Chloride 95 L Carbon Dioxide 14 L Anion Gap 26 H BUN 122 H Creatinine 17.12 H Est GFR ( Amer) 3 L Glucose 364 H Lactic Acid 1.1 Calcium 7.2 L Total Bilirubin AST Alkaline Phosphatase Total Protein Albumin TSH 10/24/19 11:40 WBC RBC Hgb Hct MCV MCH MCHC RDW Plt Count Seg Neutrophils % Carbonic Acid 0.98 L HCO3/H2CO3 Ratio 13:1 ABG pH 7.24 L ABG pCO2 32.6 L ABG pO2 44.8 L ABG HCO3 13.6 L ABG O2 Saturation 73.6 L ABG Base Excess -12.7 FiO2 40% Sodium Potassium Chloride Carbon Dioxide Anion Gap BUN Creatinine Est GFR ( Amer) Glucose Lactic Acid Calcium Total Bilirubin AST Alkaline Phosphatase Total Protein Albumin TSH 10/24/19 06:30 Troponin I 0.021 Impressions: Chest X-Ray 10/24/19 07:06 IMPRESSION: 1. Since the previous examination dated 10/23/2019, interval worsening with diffuse fairly extensive bilateral perihilar opacities, may represent edema. 2. Cardiomegaly and pulmonary vascular congestion. Assessment & Plan - Diagnosis (1) Acute diastolic (congestive) heart failure Plan: Imaging studies are suggestive of superadded heart failure on top of bilateral bronchopneumonia. See response to dialysis and see if she can be withdrawn safely from the BiPAP. She has clinical evidences of severe fluid overload. (2) DKA (diabetic ketoacidoses) Qualifiers: Diabetes mellitus type: type 1 Diabetes mellitus complication detail: without coma Qualified Code(s): E10.10 - Type 1 diabetes mellitus with ketoacidosis without coma Plan: Currently on insulin drip. Dr. Hernandez. (3) End stage renal disease on dialysis due to type 1 diabetes mellitus Plan: Patient is currently undergoing dialysis. Vital signs shows blood pressure more normotensive. Plan to remove at least 5 to-6 L of fluid as tolerated. Dialysis is being supervised to ensure safe and smooth procedure. Dialysis orders were reviewed with the treating dialysis nurse. Advised compliance with dialysis treatments in the future. (4) Acute hypoxemic respiratory failure Plan: Patient currently on BiPAP. See response to dialysis. However bronchopneumonia might be over helping and status will have to be determined once she is off dialysis. (5) Bilateral pneumonia Qualifiers: Plan: Antibiotics as per Dr. Hernandez. (6) Body mass index (BMI) 35.0-35.9, adult Plan: Status quo. (7) Diabetes mellitus type 1 Plan: Unfortunately is poorly controlled. Currently she has got an element of DKA as well. Management as per Dr. Hernandez. (8) Hyperkalemia Plan: Should respond to dialysis. Monitor. (9) Hypertension Qualifiers: Plan: Currently well controlled. Monitor.
[2019-10-24] MEDS ORDERED: HEPARIN SOD (PORCINE) 1,000 UNIT/ML 10 ML VIAL ONE (12:52)
[2019-10-24 13:35] LABS: INTERNATIONAL RATION (INR) 1.09; PROTHROMBIN TIME 14.2 SEC (11.4-15.4)
[2019-10-24] MEDS ORDERED: EPOETIN ALFA-EPBX 10,000 UNIT/ML VIAL (RENAL) IV PRN (13:45)
[2019-10-24] MEDS ORDERED: HEPARIN SOD (PORCINE) 1,000 UNIT/ML 10 ML VIAL IV PRN (13:45)
[2019-10-24] MEDS: HEPARIN SOD (PORCINE) 5,000 UNIT/ML 1 ML VIAL SUBCUT SCH ×2 (14:11→21:28)
--- NOTE | 2019-10-24 14:29 | EKG REPORT ---
SEVERITY:- ABNORMAL ECG - SINUS RHYTHM FIRST DEGREE AV BLOCK BORDERLINE LEFT AXIS DEVIATION PROLONGED QT INTERVAL : Confirmed by: Beatriz Leyva MD 24-Oct-2019 14:28:19
[2019-10-24] MEDS ORDERED: CALCIUM GLUCONATE 1000 MG/10 ML INJ IV ONE (15:00)
[2019-10-24] MEDS ORDERED: METHOCARBAMOL 500 MG TABLET PO ONE (18:30)
[2019-10-24 19:21] LABS: GLUCOSE 242 mg/dL (75-110)
[2019-10-24 19:32] LABS: ANION GAP 23 (5-19)
[2019-10-24 19:43] LABS: BLOOD UREA NITROGEN 63 mg/dL (7-20); CARBON DIOXIDE 20 mmol/L (22-30); CHLORIDE 95 mmol/L (98-107); POTASSIUM 4.7 mmol/L (3.6-5.0)
--- NOTE | 2019-10-24 20:50 | CRITICAL CARE ADMISSION REPORT ---
HPI Date:: 10/24/19 Time:: 13:00 Reason for ICU Reason:: Acute respiratory failure requiring NIVV HPI: Patient is a 34 year old female,admitted multiple times secondary to non- compliance in the face of a complex past medical history. She has known CKD-5 on hemodialysis from poorly controlled type 1 DM, hypertension, seizure disorder, morbid obesity, severe noncompliance with diet medications and dialysis. She has missed several treatments. Presented to ED with dyspnea and pain which is not uncommon for her. Has headache. She is very stoic and I am unable to obtain a significant history from her. She is on Bipap. She does not endorse any new complaints other than headache. Admitted with history of progressive shortness of breath acute on chronic headaches from the ER. She is currently on BiPAP. She is chronically hyperkalemic. Imaging shows pulmonary edema. Dialysis was done in ICU - Diagnosis/Plan (1) Acute on chronic respiratory failure with hypoxia Is this a current diagnosis for this admission?: Yes (2) Acute on chronic renal failure Qualifiers: Chronic kidney disease stage: on chronic dialysis Is this a current diagnosis for this admission?: Yes (3) Medical non-compliance Is this a current diagnosis for this admission?: Yes (4) Cephalgia Qualifiers: Headache type: unspecified Headache chronicity pattern: chronic headache Intractability: intractable Qualified Code(s): R51 - Headache Is this a current diagnosis for this admission?: Yes (5) Hypertension Qualifiers: Hypertension type: secondary to other renal disorders Qualified Code(s): I15.1 - Hypertension secondary to other renal disorders; N28.89 - Other specified disorders of kidney and ureter Is this a current diagnosis for this admission?: Yes (6) Metabolic acidosis Is this a current diagnosis for this admission?: Yes (7) DKA (diabetic ketoacidoses) Qualifiers: Diabetes mellitus type: type 1 Diabetes mellitus complication detail: without coma Qualified Code(s): E10.10 - Type 1 diabetes mellitus with ketoacidosis without coma Is this a current diagnosis for this admission?: Yes (8) Type 1 diabetes mellitus with complication, uncontrolled Is this a current diagnosis for this admission?: Yes - . Plan Summary: Patient was admitted to the ICU on noninvasive ventilation and underwent acute hemodialysis. Respiratory status has improved and she was given a diet. She complains of chronic headache is worse today. Neurologically she is intact but given her hypertension and her noncompliance history I have ordered a CT scan of her brain to be assured that there is no organic pathology. It is very difficult to care for this patient given her stoic and limted answers/responses. No doubt her prognosis long-term is diminished. We have had social work msw care and services but despite this she is continually noncompliant. Will follow in the ICU, place her on BiPAP at night, and follow her chest x-ray postdialysis. Past Medical History Cardiac Medical History: Reports: Congestive Heart Failure, Coronary Artery Disease, Hypertension, Heart Murmur Pulmonary Medical History: Reports: Asthma, Pneumonia Neurological Medical History: Reports: Migraine, Seizures - only r/t low calcium Endocrine Medical History: Reports: Diabetes Mellitus Type 1, Diabetes Mellitus Type 2 Renal/ Medical History: Reports: End Stage Renal Disease - On hemodialysis -W- Malignancy Medical History: GI Medical History: Musculoskeltal Medical History: Skin Medical History: Reports: Psoriasis Psychiatric Medical History: Reports: Depression Hematology: Reports: Anemia Infectious Medical History: Past Surgical History Past Surgical History: Reports: Appendectomy, Cholecystectomy, Vascular Surgery - Lt AV Fistula and graft; Rt AV fistula Social/Family History - Social History Smoking Status: Current Every Day Smoker Frequency of Alcohol Use: Occasional Hx Recreational Drug Use: No Drugs: None Hx Prescription Drug Abuse: No - Medication/Allergies Home Medications: Calcium Acetate [Phoslo 667 mg Capsule] 1,334 mg PO .BIDWITHSNACKS 09/25/19 Calcium Acetate [Phoslo 667 mg Capsule] 2,001 mg PO Q8 09/25/19 Furosemide [Lasix 80 mg Tablet] 80 mg PO Q8 09/25/19 Gabapentin Enacarbil [Horizant] 300 mg PO MOWEFR@1000 09/25/19 Insulin Detemir [Levemir] 35 unit SQ BID 09/25/19 Insulin Lispro [Humalog Insulin (Lispro) 100 unit/mL] 0 unit SUBCUT .SLD SCALE 09/25/19 Nifedipine [Procardia XL 60 mg Tablet] 60 mg PO Q12 09/25/19 Oxcarbazepine [Trileptal] 300 mg PO Q12 09/25/19 Oxycodone HCl/Acetaminophen [Percocet 7.5-325 mg Tablet] 1 each PO QIDP PRN 09/25/19 Paroxetine HCl [Paxil] 80 mg PO QPM 09/25/19 Sodium Polystyrene Sulfonate [Kayexalate 15 gm/60 ml Susp 60 ml] 30 gm PO SRIVASTAVA@1000 09/25/19 Calcitriol [Rocaltrol 0.25 mcg Capsule] 0.5 mcg PO BID #180 capsule 10/03/19 Docusate Sodium [Colace 100 mg Capsule] 100 mg PO BID capsule 10/03/19 Glucagon,Human Recombinant [Glucagen Inj 1 mg Vial] 1 mg IM PRN PRN vial 10/03/19 Guaifenesin [Mucinex Sr 600 mg Tablet.sa] 600 mg PO BID tablet.sa 10/03/19 Loratadine [Claritin 10 mg Tablet] 10 mg PO DAILY #90 tablet 10/03/19 Amox Tr/Potassium Clavulanate [Augmentin 875-125 Tablet] 1 tab PO BID 10 Days tablet 10/15/19 Hydroxyzine HCl [Atarax 25 mg Tablet] 1 - 2 tab PO QID #25 tablet 10/15/19 Allergies/Adverse Reactions: aspirin [Aspirin] Allergy (Verified 10/24/19 06:24) Anaphylaxis ciprofloxacin [From Cipro] Allergy (Verified 10/24/19 06:24) Anaphylaxis clindamycin [Clindamycin] Allergy (Verified 10/24/19 06:24) hydrocodone [From Vicodin] Allergy (Verified 10/24/19 06:24) ibuprofen [From Motrin] Allergy (Verified 10/24/19 06:24) Anaphylaxis lidocaine [From Lidoderm] Allergy (Verified 10/24/19 06:24) Generalized rash tramadol HCl [From Ultram] Allergy (Verified 10/24/19 06:24) vancomycin [Vancomycin] Allergy (Verified 10/24/19 06:24) Shortness of Breath nitroglycerin [Nitroglycerin] Adverse Reaction (Intermediate, Verified 10/24/19 06:24) Joint pain Review of Systems ROS unobtainable: Due to mental status Constitutional: PRESENT: headache(s). ABSENT: fever(s) Physical Exam Vital Signs: Temp Pulse Resp BP Pulse Ox 99 F 105 H 20 134/61 H 100 10/24/19 16:00 10/24/19 18:00 10/24/19 18:20 10/24/19 18:20 10/24/19 18:20 Intake & Output 10/23/19 10/24/19 10/25/19 06:59 06:59 06:59 Intake Total 22 Output Total 5400 Balance -5378 Weight 129.1 kg 129.3 kg Weight/Height Weight 129.3 kg Height 5 ft 7 in General appearance: PRESENT: no acute distress, morbidly obese. ABSENT: mild distress, severe distress Exam: Stoic quiet 34-year-old white female appears older than stated age no acute distress. She follows commands but will not engage in communication nor maintain eye contact. Head exam: PRESENT: atraumatic, normocephalic Eye exam: PRESENT: conjunctiva pink, EOMI, PERRLA. ABSENT: conjunctival injection, nystagmus, scleral icterus Ear exam: PRESENT: normal external ear exam Mouth exam: PRESENT: moist, neck supple, other - rotund neck Teeth exam: PRESENT: poor dentation Neck exam: ABSENT: carotid bruit, JVD, meningismus, thyromegaly, tracheal deviation Respiratory exam: PRESENT: rhonchi, unlabored. ABSENT: tachypnea Cardiovascular exam: PRESENT: RRR, +S1, +S2. ABSENT: gallop, systolic murmur Pulses: PRESENT: +1 pedal pulses bilateral Vascular exam: PRESENT: normal capillary refill. ABSENT: pallor GI/Abdominal exam: PRESENT: normal bowel sounds, soft. ABSENT: ascites, distended, guarding, mass, organolmegaly, rebound, tenderness Rectal exam: PRESENT: deferred Extremities exam: PRESENT: pedal edema Musculoskeletal exam: ABSENT: deformity, dislocation Neurological exam: PRESENT: awake, oriented to person, oriented to place, CN II- XII grossly intact. ABSENT: motor sensory deficit - Monosybillic Psychiatric exam: PRESENT: flat affect, unusual affect Focused psych exam: ABSENT: pressured speech, psychomotor agitation, restlessness Skin exam: PRESENT: dry, intact, warm. ABSENT: cyanosis, rash Tubes/Lines: ABSENT: Endotracheal Tube, Chest Tube, Central Line, Arterial Catheter, Dialysis catheter, Peg Tube, Nasogastic Tube, Other Laboratory/Radiographs Laboratory Results: 10/24/19 06:30 10/24/19 18:41 10/24/19 10/24/19 10/24/19 06:30 06:30 06:30 WBC 9.8 RBC 3.25 L Hgb 9.1 L Hct 28.0 L MCV 86 MCH 28.1 MCHC 32.6 RDW 16.8 H Plt Count 411 Seg Neutrophils % 73.0 Carbonic Acid HCO3/H2CO3 Ratio ABG pH ABG pCO2 ABG pO2 ABG HCO3 ABG O2 Saturation ABG Base Excess FiO2 Sodium 134.7 L Potassium 5.6 H Chloride 95 L Carbon Dioxide 16 L Anion Gap 24 H BUN 115 H Creatinine 16.22 H Est GFR ( Amer) 3 L Est GFR (Non-Af Amer) Glucose 346 H Lactic Acid Calcium 7.3 L Total Bilirubin 1.2 AST 16 Alkaline Phosphatase 133 H Total Protein 8.6 H Albumin 4.5 TSH 2.04 10/24/19 10/24/19 10/24/19 09:45 09:45 10:30 WBC RBC Hgb Hct MCV MCH MCHC RDW Plt Count Seg Neutrophils % Carbonic Acid 1.14 HCO3/H2CO3 Ratio 14:1 ABG pH 7.25 L ABG pCO2 38.0 ABG pO2 74.4 L ABG HCO3 16.3 L ABG O2 Saturation 92.8 L ABG Base Excess -10.1 FiO2 40% Sodium 134.7 L Potassium 6.2 H* Chloride 95 L Carbon Dioxide 14 L Anion Gap 26 H BUN 122 H Creatinine 17.12 H Est GFR ( Amer) 3 L Est GFR (Non-Af Amer) Glucose 364 H Lactic Acid 1.1 Calcium 7.2 L Total Bilirubin AST Alkaline Phosphatase Total Protein Albumin TSH 10/24/19 10/24/19 10/24/19 11:40 18:41 18:41 WBC RBC Hgb Hct MCV MCH MCHC RDW Plt Count Seg Neutrophils % Carbonic Acid 0.98 L HCO3/H2CO3 Ratio 13:1 ABG pH 7.24 L ABG pCO2 32.6 L ABG pO2 44.8 L ABG HCO3 13.6 L ABG O2 Saturation 73.6 L ABG Base Excess -12.7 FiO2 40% Sodium 137.8 Cancelled Potassium 4.7 D Cancelled Chloride 95 L Cancelled Carbon Dioxide 20 L Cancelled Anion Gap 23 H Cancelled BUN 63 H D Cancelled Creatinine 9.68 H Cancelled Est GFR ( Amer) 6 L Cancelled Est GFR (Non-Af Amer) Cancelled Glucose 242 H Cancelled Lactic Acid Calcium 9.0 Cancelled Total Bilirubin AST Alkaline Phosphatase Total Protein Albumin TSH 10/24/19 06:30 Troponin I 0.021 Impressions: Chest X-Ray 10/24/19 07:06 IMPRESSION: 1. Since the previous examination dated 10/23/2019, interval worsening with diffuse fairly extensive bilateral perihilar opacities, may repr esent edema. 2. Cardiomegaly and pulmonary vascular congestion. All labs, radiographs, diagnostic studies and EKGs were personally reviewed: Yes In addition, reports of radiographic and diagnostic studies were read: Yes Critical Time Critical Time (minutes): 40 -: The care of a critically ill patient is dynamic. This note represents a static moment in the admission process. orders and treatments may be given simultaneously and urgently, and time is not medical detail representative of the treatment process. This patient requires Critical Care secondary to life threatening organ or limb dysfunction. Without the need for Critical Care services, the patient is at risk for increased mortality and morbidity.
[2019-10-24 22:09] LABS: VENOUS BLOOD HCO3 26.8 mmol/L (20-32); VENOUS BLOOD PCO2 42.9 mmHg (35-63); VENOUS BLOOD PH 7.41 (7.30-7.42)
--- NOTE | 2019-10-24 22:11 | RADIOLOGY REPORT (SQ) ---
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 COMPARISON: 09/11/2019 TECHNIQUE: CT scan of the brain without IV contrast. This exam was performed according to our departmental dose-optimization program, which includes automated exposure control, adjustment of the mA and/or kV according to patient size and/or use of iterative reconstruction technique. FINDINGS: The ventricles, cisterns, and sulci are age-appropriate. No evidence of acute infarction, intracranial hemorrhage, extra-axial fluid collection, or midline shift. No air-fluid levels are seen in the paranasal sinuses to suggest acute sinusitis. No depressed skull fracture. IMPRESSION: No acute intracranial findings.
[2019-10-24 22:27] LABS: BLOOD UREA NITROGEN 61 mg/dL (7-20); CALCIUM 8.5 mg/dL (8.4-10.2); GLUCOSE 228 mg/dL (75-110); POTASSIUM 3.8 mmol/L (3.6-5.0)
[2019-10-24 22:32] LABS: ANION GAP 19 (5-19); CARBON DIOXIDE 24 mmol/L (22-30); CHLORIDE 93 mmol/L (98-107)
[2019-10-25 04:21] LABS: ABSOLUTE BASOPHILS # (AUTO) 0.1 10^3/uL (0.0-0.2); ABSOLUTE EOSINOPHILS # (AUTO) 0.3 10^3/uL (0.0-0.6); ABSOLUTE LYMPHOCYTES (AUTO) 2.2 10^3/uL (0.5-4.7); ABSOLUTE MONOCYTES (AUTO) 0.6 10^3/uL (0.1-1.4); ABSOLUTE NEUT (AUTO) 8.4 10^3/uL (1.7-8.2); BASOPHILS % (AUTO) 0.6 % (0-2); EOSINOPHILS % (AUTO) 2.8 % (0-6); HEMOGLOBIN 8.8 g/dL (12.0-15.5); LYMPHOCYTES % (AUTO) 19.1 % (13-45); MEAN CORPUSCULAR HEMOGLOBIN 27.6 pg (27.0-33.4); MEAN CORPUSCULAR HGB CONC 32.6 g/dL (32.0-36.0); MEAN CORPUSCULAR VOLUME 85 fl (80-97); PLATELET COUNT 382 10^3/uL (150-450); RED BLOOD COUNT 3.19 10^6/uL (3.72-5.28); SEGMENTED NEUTROPHILS % (AUTO) 72.5 % (42-78); TOTAL CELLS COUNTED % (AUTO) 100 %; WHITE BLOOD COUNT 11.5 10^3/uL (4.0-10.5)
[2019-10-25 04:33] LABS: ANION GAP 17 (5-19); BLOOD UREA NITROGEN 68 mg/dL (7-20); CALCIUM 7.8 mg/dL (8.4-10.2); CARBON DIOXIDE 26 mmol/L (22-30); CHLORIDE 93 mmol/L (98-107); GLUCOSE 248 mg/dL (75-110); PHOSPHORUS 7.5 mg/dL (2.5-4.5); POTASSIUM 3.6 mmol/L (3.6-5.0)
[2019-10-25] MEDS ORDERED: ACETAMINOPHEN 325 MG TABLET PO ONE (05:15)
[2019-10-25] MEDS: HEPARIN SOD (PORCINE) 5,000 UNIT/ML 1 ML VIAL SUBCUT SCH ×3 (05:18→22:20)
[2019-10-25] MEDS ORDERED: EPOETIN ALFA-EPBX 10,000 UNIT in SYRINGE, DISPOSABLE, 1 EACH IV PRN (06:36)
--- NOTE | 2019-10-25 08:46 | RADIOLOGY REPORT (SQ) ---
EXAM DESCRIPTION: CHEST SINGLE VIEW COMPLETED DATE/TIME: 10/25/2019 6:42 am REASON FOR STUDY: respiratory failure COMPARISON: None. EXAM PARAMETERS: NUMBER OF VIEWS: One view. TECHNIQUE: Single frontal radiographic view of the chest acquired. RADIATION DOSE: NA LIMITATIONS: None. FINDINGS: LUNGS AND PLEURA: Unchanged asymmetric bilateral alveolar opacities. There is no sizable pleural effusion or pneumothorax. MEDIASTINUM AND HILAR STRUCTURES: Unchanged mediastinal and hilar contours. HEART AND VASCULAR STRUCTURES: Unchanged cardiomegaly. BONES: No acute findings. HARDWARE: Endovascular stents within the venous outflow of a right-sided hemodialysis access. OTHER: No other finding. IMPRESSION: Unchanged radiographic appearance of the chest with asymmetric bilateral alveolar opacit ies. TECHNICAL DOCUMENTATION: JOB ID: [id number] [employer]- All Rights Reserved Reading location - IP/workstation name: [email or web address]
--- NOTE | 2019-10-25 12:07 | PDOC CRITICAL CARE PROG REPORT ---
General Date:: 10/25/19 ICU Day:: 2 Ventilator Day:: 0 Hospital Day:: 2 Events in the past 12 to 24 Hours:: Patient was admitted for shortness of breath. She underwent dialysis with significant volume removal. This resulted in dramatic improvement and she was discontinued from BiPAP and placed on nasal cannula. Because of her chronic headache she went for CT scan of the brain which was negative. Included were CT of the sinuses which were negative for any acute sinusitis. Review of systems relevant to events:: Patient endorses that she has chronic sinus and ear discomfort. Has been on 3 antibiotics and Flonase causes nasal bleeds. Reason for ICU Addmission:: Acute respiratory failure requiring NIVV - Medications: Medications reviewed and adjusted accordingly: Yes Physical Exam Vital Signs: Temp Pulse Resp BP Pulse Ox 99.6 F 93 16 143/90 H 100 10/25/19 08:00 10/25/19 10:00 10/25/19 10:00 10/25/19 10:00 10/25/19 10:00 Intake & Output 10/24/19 10/25/19 10/26/19 06:59 06:59 06:59 Intake Total 51 Output Total 5400 88779 Balance -5349 -89683 Weight 129.1 kg 124.2 kg Weight/Height Weight 124.2 kg Height 5 ft 7 in General appearance: PRESENT: no acute distress, morbidly obese Exam: Obese appearing nontoxic older 34-year-old female no active distress she is awake alert oriented x3 Eye exam: PRESENT: conjunctiva pink, EOMI, PERRLA. ABSENT: scleral icterus Ear exam: PRESENT: normal external ear exam Mouth exam: PRESENT: moist, neck supple, other - rotund neck Neck exam: ABSENT: carotid bruit, JVD, lymphadenopathy, thyromegaly Respiratory exam: PRESENT: clear to auscultation freddy, unlabored. ABSENT: accessory muscle use, rales, rhonchi, tachypnea, wheezes Cardiovascular exam: PRESENT: RRR, +S1, +S2 Pulses: PRESENT: +1 pedal pulses bilateral GI/Abdominal exam: PRESENT: normal bowel sounds, soft. ABSENT: ascites, distended, guarding, mass, organolmegaly, rebound, tenderness Rectal exam: PRESENT: deferred Extremities exam: PRESENT: pedal edema. ABSENT: tenderness Musculoskeletal exam: ABSENT: deformity, dislocation Neurological exam: PRESENT: alert, awake, oriented to person, oriented to place, oriented to time, oriented to situation, CN II-XII grossly intact. ABSENT: motor sensory deficit Psychiatric exam: PRESENT: appropriate affect, normal mood. ABSENT: homicidal ideation, suicidal ideation Focused psych exam: ABSENT: pressured speech, psychomotor agitation, restlessness Skin exam: PRESENT: dry, intact, warm. ABSENT: cyanosis, rash Tubes/Lines: ABSENT: Endotracheal Tube, Chest Tube, Central Line, Arterial Catheter, Dialysis catheter, Peg Tube, Nasogastic Tube, Other Laboratory/Radiographs Laboratory Results: 10/25/19 04:01 10/25/19 04:01 10/24/19 10/24/19 10/24/19 06:30 10:30 11:40 WBC RBC Hgb Hct MCV MCH MCHC RDW Plt Count Seg Neutrophils % Carbonic Acid 0.98 L HCO3/H2CO3 Ratio 13:1 ABG pH 7.24 L ABG pCO2 32.6 L ABG pO2 44.8 L ABG HCO3 13.6 L ABG O2 Saturation 73.6 L ABG Base Excess -12.7 VBG pH VBG pCO2 VBG HCO3 VBG Base Excess FiO2 40% Sodium Potassium 6.2 H* Chloride Carbon Dioxide Anion Gap BUN Creatinine Est GFR ( Amer) Est GFR (Non-Af Amer) Glucose Calcium Phosphorus Magnesium TSH 2.04 10/24/19 10/24/19 10/24/19 18:41 18:41 21:59 WBC RBC Hgb Hct MCV MCH MCHC RDW Plt Count Seg Neutrophils % Carbonic Acid HCO3/H2CO3 Ratio ABG pH ABG pCO2 ABG pO2 ABG HCO3 ABG O2 Saturation ABG Base Excess VBG pH VBG pCO2 VBG HCO3 VBG Base Excess FiO2 Sodium 137.8 Cancelled 135.7 L Potassium 4.7 D Cancelled 3.8 Chloride 95 L Cancelled 93 L Carbon Dioxide 20 L Cancelled 24 Anion Gap 23 H Cancelled 19 BUN 63 H D Cancelled 61 H Creatinine 9.68 H Cancelled 10.89 H Est GFR ( Amer) 6 L Cancelled 5 L Est GFR (Non-Af Amer) Cancelled Glucose 242 H Cancelled 228 H Calcium 9.0 Cancelled 8.5 Phosphorus Magnesium TSH 10/24/19 10/25/19 10/25/19 21:59 04:01 04:01 WBC 11.5 H RBC 3.19 L Hgb 8.8 L Hct 27.0 L MCV 85 MCH 27.6 MCHC 32.6 RDW 17.0 H Plt Count 382 Seg Neutrophils % 72.5 Carbonic Acid HCO3/H2CO3 Ratio ABG pH ABG pCO2 ABG pO2 ABG HCO3 ABG O2 Saturation ABG Base Excess VBG pH 7.41 VBG pCO2 42.9 VBG HCO3 26.8 VBG Base Excess 2.0 FiO2 Sodium 135.9 L Potassium 3.6 Chloride 93 L Carbon Dioxide 26 Anion Gap 17 BUN 68 H Creatinine 11.98 H Est GFR ( Amer) 4 L Est GFR (Non-Af Amer) Glucose 248 H Calcium 7.8 L Phosphorus 7.5 H Magnesium 2.3 TSH 10/24/19 06:30 Troponin I 0.021 Impressions: Head CT 10/24/19 00:00 IMPRESSION: No acute intracranial findings. Chest X-Ray 10/25/19 06:00 IMPRESSION: Unchanged radiographic appearance of the chest with asymmetric bilateral alveolar opacities. All labs, radiographs, diagnostic studies and EKGs were personally reviewed: Yes In addition, reports of radiographic and diagnostic studies were read: Yes Assessment and Plan - Diagnosis (1) Acute on chronic respiratory failure with hypoxia Is this a current diagnosis for this admission?: Yes (2) Acute on chronic renal failure Qualifiers: Chronic kidney disease stage: on chronic dialysis Is this a current diagnosis for this admission?: Yes (3) Medical non-compliance Is this a current diagnosis for this admission?: Yes (4) Cephalgia Qualifiers: Headache type: unspecified Headache chronicity pattern: chronic headache Intractability: intractable Qualified Code(s): R51 - Headache Is this a current diagnosis for this admission?: Yes (5) Hypertension Qualifiers: Hypertension type: secondary to other renal disorders Qualified Code(s): I15.1 - Hypertension secondary to other renal disorders; N28.89 - Other speci fied disorders of kidney and ureter Is this a current diagnosis for this admission?: Yes (6) Metabolic acidosis Is this a current diagnosis for this admission?: Yes (7) DKA (diabetic ketoacidoses) Qualifiers: Diabetes mellitus type: type 1 Diabetes mellitus complication detail: without coma Qualified Code(s): E10.10 - Type 1 diabetes mellitus with ketoacidosis without coma Is this a current diagnosis for this admission?: Yes (8) Type 1 diabetes mellitus with complication, uncontrolled Is this a current diagnosis for this admission?: Yes Plan Summary: Patient has had dramatic improvement since dialysis. We had a long lengthy discussion about her persistent noncompliance. When asked what would help her best she replied " a new kidney". She was turned down by [facility] because she has been noncompliant and has significant anxiety and depression which preclude the use of medications and transplant. Has been a constant and vicious cycle of admissions and discharges because of her poor self-care. patient services representative has been consulted multiple times but the patient has not personally taken ownership or control of her health. She does have hypertension and will attempt to get her back on her home medications. 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 I have started her on her twice daily Lantus but at 38 units each dose. I have given her a transient dose of NPH until this evening's Lantus dose. She is stable for transfer and downgrade. She will need dialysis today. Recommend ENT follow-up and BiPAP at night Discussed case with Dr. Singleton Critical Time Critical Time (minutes): 0 - [id number] Level of Care: MEDICAL Anticipated discharge: Home with Homehealth Within: within 48 hours -: 1. The care of a critical patient is a dynamic process. This note is a technical sales representatives synopsis but static in nature. The timeframe for treatments given in order is not necessary the actual time these treatments may have been done. 2. This patient no longer requires critical care. Can be downgraded and t ransfered to a lower level of care and mortality. 3. Multidisciplinary rounds completed. 4. ABCDE bundle addressed.
[2019-10-25] MEDS ORDERED: (PENDING PHARMACY ID) (Nifedipine [Procardia Xl 60 Mg Tablet] 60 MG) PO SCH (12:15)
[2019-10-25] MEDS ORDERED: CALCIUM ACETATE 667 MG CAPSULE PO SCH (12:15)
[2019-10-25] MEDS ORDERED: INSULIN NPH (ISOPHANE), HUMAN 100 UNIT/ML 3 ML SUBCUT ONE (12:30)
[2019-10-25] MEDS: INSULIN LISPRO 100 UNIT/ML 3 ML VIAL SUBCUT SCH ×2 (12:35→18:03)
--- NOTE | 2019-10-25 15:35 | PDOC PROGRESS REPORT ---
Subjective Progress Note for:: 10/25/19 Reason For Visit: Patient has done very well since dialysis yesterday and removal of 5 L of fluid. She is quite awake alert oriented off the BiPAP. She is been downgraded to the floor. She is currently being seen while undergoing dialysis. Still complains of some headaches which is apparently is chronic. No complaints of any chest pains or shortness of breath. Labs and medications were reviewed. Dialysis orders were reviewed with the treating dialysis nurse. Physical Exam Vital Signs: Temp Pulse Resp BP Pulse Ox 98.4 F 97 21 H 164/85 H 100 10/25/19 12:00 10/25/19 12:00 10/25/19 13:00 10/25/19 12:21 10/25/19 13:00 Intake & Output 10/24/19 10/25/19 10/26/19 06:59 06:59 06:59 Intake Total 51 16 Output Total 5400 84582 Balance -4336 -75512 Weight 129.1 kg 124.2 kg General appearance: PRESENT: no acute distress Respiratory exam: PRESENT: clear to auscultation freddy, decreased breath sounds. ABSENT: crackles Cardiovascular exam: PRESENT: +S1, +S2 GI/Abdominal exam: PRESENT: normal bowel sounds, soft. ABSENT: organomegaly, tenderness Extremities exam: PRESENT: pedal edema Neurological exam: PRESENT: alert, awake, oriented to person, oriented to place Psychiatric exam: PRESENT: appropriate affect Skin exam: ABSENT: erythema, mottled, rash Results Laboratory Results: 10/25/19 04:01 10/25/19 04:01 10/24/19 10/24/19 10/24/19 18:41 18:41 21:59 WBC RBC Hgb Hct MCV MCH MCHC RDW Plt Count Seg Neutrophils % VBG pH VBG pCO2 VBG HCO3 VBG Base Excess Sodium 137.8 Cancelled 135.7 L Potassium 4.7 D Cancelled 3.8 Chloride 95 L Cancelled 93 L Carbon Dioxide 20 L Cancelled 24 Anion Gap 23 H Cancelled 19 BUN 63 H D Cancelled 61 H Creatinine 9.68 H Cancelled 10.89 H Est GFR ( Amer) 6 L Cancelled 5 L Est GFR (Non-Af Amer) Cancelled Glucose 242 H Cancelled 228 H Calcium 9.0 Cancelled 8.5 Phosphorus Magnesium 1210/25/19 10/25/19 21:59 04:01 04:01 WBC 11.5 H RBC 3.19 L Hgb 8.8 L Hct 27.0 L MCV 85 MCH 27.6 MCHC 32.6 RDW 17.0 H Plt Count 382 Seg Neutrophils % 72.5 VBG pH 7.41 VBG pCO2 42.9 VBG HCO3 26.8 VBG Base Excess 2.0 Sodium 135.9 L Potassium 3.6 Chloride 93 L Carbon Dioxide 26 Anion Gap 17 BUN 68 H Creatinine 11.98 H Est GFR ( Amer) 4 L Est GFR (Non-Af Amer) Glucose 248 H Calcium 7.8 L Phosphorus 7.5 H Magnesium 2.3 10/24/19 06:30 Troponin I 0.021 Impressions: Head CT 10/24/19 00:00 IMPRESSION: No acute intracranial findings. Chest X-Ray 10/25/19 06:00 IMPRESSION: Unchanged radiographic appearance of the chest with asymmetric bilateral alveolar opacities. Assessment & Plan - Diagnosis (1) Acute diastolic (congestive) heart failure Plan: Currently resolved. She is going to get another dialysis and good ultr afiltration should make her feel a whole lot better. Radiologically also she is much improved. Advised compliance with diet and medications. (2) DKA (diabetic ketoacidoses) Qualifiers: Diabetes mellitus type: type 1 Diabetes mellitus complication detail: without coma Qualified Code(s): E10.10 - Type 1 diabetes mellitus with ketoacidosis without coma Plan: Sugars are stable. Today's labs are pending. Advised the need for tight blood sugar control starting with diet. (3) End stage renal disease on dialysis due to type 1 diabetes mellitus Plan: Patient currently undergoing dialysis. Vital signs are stable. Dialysis is hua ng supervised to ensure safe and smooth procedure. Plan to remove 4-5 L as tolerated. Dialysis orders were reviewed with the treating dialysis nurse. Advised patient on compliance with dialysis treatments. (4) Acute hypoxemic respiratory failure Plan: Resolved with good ultrafiltration on dialysis yesterday. She should feel even better with today's dialysis and more ultrafiltration. (6) Diabetes mellitus type 1 Plan: Advised on the need for tight control. (7) Hyperkalemia Plan: His labs are pending. She is on appropriate low K bath. (8) Hypertension Qualifiers: Plan: Uncontrolled but better. See the response to current dialysis treatment today now. (9) Anemia in chronic kidney disease (CKD) Qualifiers: Chronic kidney disease stage: on chronic dialysis Qualified Code(s): N18.6 - End stage renal disease; D63.1 - Anemia in chronic kidney disease; Z99.2 - Dependence on renal dialysis Plan: Adjust erythropoietin.
[2019-10-25] MEDS ORDERED: METOLAZONE 5 MG TABLET PO ONE (17:30)
[2019-10-25] MEDS ORDERED: HEPARIN SOD (PORCINE) 5,000 UNIT/ML 1 ML VIAL SUBCUT ONE (17:30)
[2019-10-25] MEDS ORDERED: FUROSEMIDE 80 MG TABLET PO ONE (17:30)
[2019-10-25] MEDS ORDERED: PAROXETINE PO SCH (18:00)
[2019-10-25] MEDS ORDERED: (PENDING PHARMACY ID) (Amox Tr/Potassium Clavulanate [Augmentin 875-125 Mg Tablet] 1 TAB) PO SCH (18:00)
[2019-10-25] MEDS: PAROXETINE HCL 20 MG TABLET PO SCH (18:04)
[2019-10-25] MEDS: OXYCODONE-ACETAMINOPHEN 5-325 MG TABLET PO PRN (18:05)
[2019-10-25] MEDS: METOLAZONE 5 MG TABLET PO SCH (18:06)
[2019-10-25] MEDS: FUROSEMIDE 80 MG TABLET PO SCH ×2 (18:06→22:19)
[2019-10-25] MEDS: PROMETHAZINE HCL 25 MG TABLET PO PRN (18:07)
[2019-10-25] MEDS ORDERED: (PENDING PHARMACY ID) (Oxcarbazepine [Trileptal] 300 MG) PO SCH (22:00)
[2019-10-25] MEDS: INSULIN GLARGINE,HUM.REC.ANLOG 1,000 UNIT/10 ML VIAL SUBCUT SCH (22:18)
[2019-10-25] MEDS: NIFEDIPINE 30 MG TAB.ER.24 PO SCH (22:19)
[2019-10-25] MEDS: OXCARBAZEPINE 150 MG TABLET PO SCH (22:20)
[2019-10-26] MEDS: INSULIN LISPRO 100 UNIT/ML 3 ML VIAL SUBCUT SCH ×4 (00:28→17:58)
[2019-10-26] MEDS: OXYCODONE-ACETAMINOPHEN 5-325 MG TABLET PO PRN ×3 (03:34→20:34)
[2019-10-26] MEDS: HEPARIN SOD (PORCINE) 5,000 UNIT/ML 1 ML VIAL SUBCUT SCH ×4 (05:14→21:40)
[2019-10-26] MEDS: FUROSEMIDE 80 MG TABLET PO SCH ×3 (05:17→21:32)
[2019-10-26] MEDS: PROMETHAZINE HCL 25 MG TABLET PO PRN ×2 (05:22→17:59)
--- NOTE | 2019-10-26 08:34 | RADIOLOGY REPORT (SQ) ---
EXAM DESCRIPTION: CHEST SINGLE VIEW COMPLETED DATE/TIME: 10/26/2019 6:44 am REASON FOR STUDY: respiratory failure COMPARISON: 10/25/2019. EXAM PARAMETERS: NUMBER OF VIEWS: One view. TECHNIQUE: Single frontal radiographic view of the chest acquired. RADIATION DOSE: NA LIMITATIONS: None. FINDINGS: LUNGS AND PLEURA: Diffuse bilateral airspace disease. No large pleural effusion. No pneu mothorax. MEDIASTINUM AND HILAR STRUCTURES: No masses. Contour normal. HEART AND VASCULAR STRUCTURES: Stable cardiomegaly. BONES: No acute findings. HARDWARE: Right subclavian/ axillary stent. OTHER: No other significant finding. IMPRESSION: NO SIGNIFICANT CHANGE IN APPEARANCE OF THE CHEST. TECHNICAL DOCUMENTATION: JOB ID: [id number] [employer]- All Rights Reserved Reading location - IP/workstation name: [email or web address]
[2019-10-26] MEDS: NIFEDIPINE 30 MG TAB.ER.24 PO SCH ×2 (09:46→21:31)
[2019-10-26] MEDS: METOLAZONE 5 MG TABLET PO SCH (09:47)
[2019-10-26] MEDS: OXCARBAZEPINE 150 MG TABLET PO SCH ×2 (09:47→21:31)
[2019-10-26] MEDS: INSULIN GLARGINE,HUM.REC.ANLOG 1,000 UNIT/10 ML VIAL SUBCUT SCH ×2 (09:48→21:33)
[2019-10-26] MEDS ORDERED: METOLAZONE 10 MG PO SCH (10:00)
[2019-10-26] MEDS ORDERED: INSULIN NPH (ISOPHANE), HUMAN 100 UNIT/ML 3 ML SUBCUT ONE (11:28)
[2019-10-26] MEDS: PAROXETINE HCL 20 MG TABLET PO SCH (17:59)
--- NOTE | 2019-10-26 20:45 | PDOC PROGRESS REPORT ---
Subjective Progress Note for:: 10/26/19 Subjective:: Patient seen by the bedside, awaiting transfer to medical floor Reason For Visit: RESPIRATORY FAILURE, HYPERGLYCEMIA Physical Exam Vital Signs: Temp Pulse Resp BP Pulse Ox 98.8 F 97 15 130/77 H 99 10/26/19 07:48 10/26/19 07:48 10/26/19 07:48 10/26/19 07:48 10/26/19 07:48 Intake & Output 10/25/19 10/26/19 10/27/19 06:59 06:59 06:59 Intake Total 51 16 Output Total 5190 70234 Balance -5022 -56830 Weight 124.2 kg 122.4 kg 122.4 kg General appearance: PRESENT: no acute distress Eye exam: PRESENT: PERRLA Respiratory exam: PRESENT: clear to auscultation freddy Cardiovascular exam: PRESENT: +S1, +S2 GI/Abdominal exam: PRESENT: soft Neurological exam: PRESENT: alert Results Laboratory Results: 10/25/19 04:01 10/25/19 04:01 10/26/19 03:50 Phosphorus 6.0 H Magnesium 2.1 10/24/19 06:30 Troponin I 0.021 Impressions: Head CT 10/24/19 00:00 IMPRESSION: No acute intracranial findings. Chest X-Ray 10/26/19 06:00 IMPRESSION: NO SIGNIFICANT CHANGE IN APPEARANCE OF THE CHEST. Assessment & Plan - Diagnosis (1) Acute pulmonary edema Is this a current diagnosis for this admission?: Yes (2) End stage renal disease Is this a current diagnosis for this admission?: Yes (3) Type 1 diabetes mellitus with complication Is this a current diagnosis for this admission?: Yes - Time Time Spent with patient: Less than 15 minutes
[2019-10-27] MEDS: INSULIN LISPRO 100 UNIT/ML 3 ML VIAL SUBCUT SCH ×4 (00:11→17:30)
[2019-10-27] MEDS: OXYCODONE-ACETAMINOPHEN 5-325 MG TABLET PO PRN ×2 (04:28→12:54)
[2019-10-27 04:34] LABS: PHOSPHORUS 9.6 mg/dL (2.5-4.5)
[2019-10-27] MEDS: HEPARIN SOD (PORCINE) 5,000 UNIT/ML 1 ML VIAL SUBCUT SCH ×2 (05:20→16:50)
[2019-10-27] MEDS: PROMETHAZINE HCL 25 MG TABLET PO PRN (05:51)
[2019-10-27] MEDS: FUROSEMIDE 80 MG TABLET PO SCH ×2 (05:51→16:51)
[2019-10-27] MEDS ORDERED: EPOETIN ALFA-EPBX 10,000 UNIT in SYRINGE, DISPOSABLE, 1 EACH IV PRN (07:23)
--- NOTE | 2019-10-27 08:26 | RADIOLOGY REPORT (SQ) ---
EXAM DESCRIPTION: CHEST SINGLE VIEW COMPLETED DATE/TIME: 10/27/2019 6:01 am REASON FOR STUDY: respiratory failure COMPARISON: 10/26/2019 EXAM PARAMETERS: NUMBER OF VIEWS: One view. TECHNIQUE: Single frontal radiographic view of the chest acquired. RADIATION DOSE: NA LIMITATIONS: None. FINDINGS: LUNGS AND PLEURA: Persistent perihilar and basilar interstitial opacities. No dense conso lidation. Mild improved aeration from prior. No large effusion. No pneumothorax. MEDIASTINUM AND HILAR STRUCTURES: No discrete mass. HEART AND VASCULAR STRUCTURES: Enlarged cardiac silhouette, stable. Central vascular congestion. BONES: No acute findings. HARDWARE: Partially visualized right subclavian and axillary stents. OTHER: No other significant finding. IMPRESSION: Enlarged cardiac silhouette with persistent interstitial opacities, likely edema. Findi ngs mildly improved from prior. No large effusion. TECHNICAL DOCUMENTATION: JOB ID: [id number] [employer]- All Rights Reserved Reading location - IP/workstation name: [email or web address]
[2019-10-27] MEDS ORDERED: (PENDING PHARMACY ID) (Gabapentin Enacarbil [Horizant] 300 MG) PO SCH (10:00)
[2019-10-27] MEDS: NIFEDIPINE 30 MG TAB.ER.24 PO SCH (10:33)
[2019-10-27] MEDS: OXCARBAZEPINE 150 MG TABLET PO SCH (10:33)
[2019-10-27] MEDS: METOLAZONE 5 MG TABLET PO SCH (10:33)
[2019-10-27] MEDS: INSULIN GLARGINE,HUM.REC.ANLOG 1,000 UNIT/10 ML VIAL SUBCUT SCH (10:34)
[2019-10-27 12:44] LABS: HEMATOCRIT 28.3 % (36.0-47.0); HEMOGLOBIN 9.4 g/dL (12.0-15.5); MEAN CORPUSCULAR HEMOGLOBIN 28.6 pg (27.0-33.4); MEAN CORPUSCULAR HGB CONC 33.3 g/dL (32.0-36.0); MEAN CORPUSCULAR VOLUME 86 fl (80-97); PLATELET COUNT 476 10^3/uL (150-450); RED BLOOD COUNT 3.29 10^6/uL (3.72-5.28); WHITE BLOOD COUNT 9.8 10^3/uL (4.0-10.5)
[2019-10-27 12:51] VITALS: BP 175/77
[2019-10-27 13:06] LABS: BLOOD UREA NITROGEN 66 mg/dL (7-20); CALCIUM 7.7 mg/dL (8.4-10.2); GLUCOSE 280 mg/dL (75-110); POTASSIUM 4.1 mmol/L (3.6-5.0)
[2019-10-27 13:16] LABS: CARBON DIOXIDE 22 mmol/L (22-30); CHLORIDE 90 mmol/L (98-107)
[2019-10-27 13:21] LABS: ANION GAP 24 (5-19)
--- NOTE | 2019-10-27 13:51 | PDOC PROGRESS REPORT ---
Subjective Progress Note for:: 10/27/19 Reason For Visit: RESPIRATORY FAILURE, HYPERGLYCEMIA Physical Exam Vital Signs: Temp Pulse Resp BP Pulse Ox 97.9 F 96 18 175/77 H 100 10/27/19 12:00 10/27/19 12:00 10/27/19 12:00 10/27/19 12:00 10/27/19 12:00 Intake & Output 10/26/19 10/27/19 10/28/19 06:59 06:59 06:59 Intake Total 16 300 Output Total 01806 Balance -48805 300 Weight 122.4 kg 121.5 kg Cardiovascular exam: PRESENT: +S1, +S2 GI/Abdominal exam: PRESENT: normal bowel sounds, soft. ABSENT: organomegaly, tenderness Results Laboratory Results: 10/27/19 12:29 10/27/19 12:29 10/27/19 10/27/19 10/27/19 03:54 12:29 12:29 WBC 9.8 RBC 3.29 L Hgb 9.4 L Hct 28.3 L MCV 86 MCH 28.6 MCHC 33.3 RDW 17.0 H Plt Count 476 H Sodium 136.3 L Potassium 4.1 Chloride 90 L Carbon Dioxide 22 Anion Gap 24 H BUN 66 H Creatinine 13.82 H Est GFR ( Amer) 4 L Glucose 280 H Calcium 7.7 L Phosphorus 9.6 H Magnesium 2.2 10/24/19 06:30 Troponin I 0.021 Impressions: Head CT 10/24/19 00:00 IMPRESSION: No acute intracranial findings. Chest X-Ray 10/27/19 06:00 IMPRESSION: Enlarged cardiac silhouette with persistent interstitial opacities, likely edema. Findings mildly improved from prior. No large effusion. Assessment & Plan - Diagnosis (2) DKA (diabetic ketoacidoses) Qualifiers: Diabetes mellitus type: type 1 Diabetes mellitus complication detail: without coma Qualified Code(s): E10.10 - Type 1 diabetes mellitus with ketoacidosis without coma (8) Hypertension Qualifiers: (9) Anemia in chronic kidney disease (CKD) Qualifiers: Chronic kidney disease stage: on chronic dialysis Qualified Code(s): N18.6 - End stage renal disease; D63.1 - Anemia in chronic kidney disease; Z99.2 - Dependence on renal dialysis
[2019-10-27] MEDS: PAROXETINE HCL 20 MG TABLET PO SCH (17:31)
--- NOTE | 2019-10-27 20:54 | PDOC DISCHARGE SUMMARY ---
Impression - Admit/DC Date/PCP Admission Date/Primary Care Provider: 10/24/19 11:00 HILARY HERNANDEZ MD Discharge Date: 10/27/19 - Discharge Diagnosis (1) Acute pulmonary edema Is this a current diagnosis for this admission?: Yes (3) ESRD on dialysis Is this a current diagnosis for this admission?: Yes (4) Type 1 diabetes mellitus with unspecified complications Is this a current diagnosis for this admission?: Yes - Additional Information Resuscitation Status: Full Code Discharge Diet: Cardiac, Diabetic, Other (Comments) Discharge Activity: Activity As Tolerated, Balance Activity w/Rest, Weigh Daily Referrals: HILARY HERNANDEZ MD [Primary Care Provider] - Follow up as needed Home Medications: Calcium Acetate [Phoslo 667 mg Capsule] 1,334 mg PO .BIDWITHSNACKS 09/25/19 Calcium Acetate [Phoslo 667 mg Capsule] 2,001 mg PO Q8 09/25/19 Furosemide [Lasix 80 mg Tablet] 80 mg PO Q8 09/25/19 Gabapentin Enacarbil [Horizant] 300 mg PO MOWEFR@1000 09/25/19 Insulin Detemir [Levemir] 35 unit SQ BID 09/25/19 Insulin Lispro [Humalog Insulin (Lispro) 100 unit/mL] 0 unit SUBCUT .SLD SCALE 09/25/19 Nifedipine [Procardia XL 60 mg Tablet] 60 mg PO Q12 09/25/19 Oxcarbazepine [Trileptal] 300 mg PO Q12 09/25/19 Oxycodone HCl/Acetaminophen [Percocet 7.5-325 mg Tablet] 1 each PO QIDP PRN 09/25/19 Paroxetine HCl [Paxil] 80 mg PO QPM 09/25/19 Sodium Polystyrene Sulfonate [Kayexalate 15 gm/60 ml Susp 60 ml] 30 gm PO SRIVASTAVA@1000 09/25/19 Amox Tr/Potassium Clavulanate [Augmentin 875-125 mg Tablet] 1 tab PO BID 10 Days tablet 10/15/19 Alprazolam 1 mg PO TID 10/25/19 Bumetanide [Bumex 2 mg Tablet] 2 mg PO BID 10/25/19 Metolazone 10 mg PO DAILY 10/25/19 Promethazine HCl [Phenergan 25 mg Tablet] 12.5 mg PO Q12HP PRN 10/25/19 History of Present Illiness History of Present Illness: ERICH GOODMAN is a 34 year old femaleShe presented to the emergency room with respiratory distress due to acute pulmonary edema, patient required immediate hemodialysis, she was admitted by the crutcher helper in intensive care unit where she was emergently hemodialyzed. She spent the first few days in intensive care unit, she was seen in consultation by nephrology, the trim mounter supervised the hemodialysis sessions in the hospital. She was transferred out of Intensive care unit yesterday Hospital Course Hospital Course: Patient was seen today she was admitted and manage in intensive care unit by the crutcher helper for the first few days of admission, she required a noninvasive positive pressure ventilation, BiPAP, she also was hemodialyzed. Part of patient's problem was noncompliance with hemodialysis sessions, she apparently missed outpatient dialysis couple of times before she developed acute pulmonary edema which is foreseeable in this patient because she has end-stage renal disease on hemodialysis anytime she missed hemodialysis she will end up with acute pulmonary edema associated with acute respiratory distress requiring noninvasive positive pressure ventilation and also immediate hemodialysis this has been the pattern of care/presentation in the last couple of admission proc ess..Patient seen today, she wants to go home, she is stable enough for discharge Physical Exam Vital Signs: Temp Pulse Resp BP Pulse Ox 97.9 F 96 18 175/77 H 100 10/27/19 18:48 10/27/19 18:48 10/27/19 18:48 10/27/19 18:48 10/27/19 18:48 Intake & Output 10/26/19 10/27/19 10/28/19 06:59 06:59 06:59 Intake Total 16 300 Output Total 66874 4400 Balance -93756 -4100 Weight 122.4 kg 121.5 kg General appearance: PRESENT: no acute distress Eye exam: PRESENT: PERRLA Respiratory exam: PRESENT: clear to auscultation freddy Cardiovascular exam: PRESENT: +S1, +S2 GI/Abdominal exam: PRESENT: soft Neurological exam: PRESENT: alert, CN II-XII grossly intact Results Laboratory Results: WBC 9.8 10^3/uL (4.0-10.5) 10/27/19 12:29 RBC 3.29 10^6/uL (3.72-5.28) L 10/27/19 12:29 Hgb 9.4 g/dL (12.0-15.5) L 10/27/19 12:29 Hct 28.3 % (36.0-47.0) L 10/27/19 12:29 MCV 86 fl (80-97) 10/27/19 12:29 MCH 28.6 pg (27.0-33.4) 10/27/19 12:29 MCHC 33.3 g/dL (32.0-36.0) 10/27/19 12:29 RDW 17.0 % (11.5-14.0) H 10/27/19 12:29 Plt Count 476 10^3/uL (150-450) H 10/27/19 12:29 Lymph % (Auto) 19.1 % (13-45) 10/25/19 04:01 Christian % (Auto) 5.0 % (3-13) 10/25/19 04:01 Eos % (Auto) 2.8 % (0-6) 10/25/19 04:01 Baso % (Auto) 0.6 % (0-2) 10/25/19 04:01 Absolute Neuts (auto) 8.4 10^3/uL (1.7-8.2) H 10/25/19 04:01 Absolute Lymphs (auto) 2.2 10^3/uL (0.5-4.7) 10/25/19 04:01 Absolute Monos (auto) 0.6 10^3/uL (0.1-1.4) 10/25/19 04:01 Absolute Eos (auto) 0.3 10^3/uL (0.0-0.6) 10/25/19 04:01 Absolute Basos (auto) 0.1 10^3/uL (0.0-0.2) 10/25/19 04:01 Seg Neutrophils % 72.5 % (42-78) 10/25/19 04:01 PT 14.2 SEC (11.4-15.4) 10/24/19 13:00 INR 1.09 10/24/19 13:00 APTT Cancelled 10/24/19 13:00 Carbonic Acid 0.98 mmol/L (1.05-1.35) L 10/24/19 11:40 HCO3/H2CO3 Ratio 13:1 10/24/19 11:40 ABG pH 7.24 (7.35-7.45) L 10/24/19 11:40 ABG pCO2 32.6 mmHg (35-45) L 10/24/19 11:40 ABG pO2 44.8 mmHg (80-100) L 10/24/19 11:40 ABG HCO3 13.6 mmol/L (20-24) L 10/24/19 11:40 ABG Total CO2 14.6 mmol/L (21-25) L 10/24/19 11:40 ABG O2 Saturation 73.6 % (94-98) L 10/24/19 11:40 ABG Base Excess -12.7 mmol/L 10/24/19 11:40 VBG pH 7.41 (7.30-7.42) 10/24/19 21:59 VBG pCO2 42.9 mmHg (35-63) 10/24/19 21:59 VBG HCO3 26.8 mmol/L (20-32) 10/24/19 21:59 VBG Base Excess 2.0 mmol/L 10/24/19 21:59 FiO2 40% 10/24/19 11:40 Sodium 136.3 mmol/L (137-145) L 10/27/19 12:29 Potassium 4.1 mmol/L (3.6-5.0) 10/27/19 12:29 Chloride 90 mmol/L (98-107) L 10/27/19 12:29 Carbon Dioxide 22 mmol/L (22-30) 10/27/19 12:29 Anion Gap 24 (5-19) H 10/27/19 12:29 BUN 66 mg/dL (7-20) H 10/27/19 12:29 Creatinine 13.82 mg/dL (0.52-1.25) H 10/27/19 12:29 Est GFR ( Amer) 4 (>60) L 10/27/19 12:29 Est GFR (Non-Af Amer) Cancelled 10/24/19 18:41 Est GFR (MDRD) Non-Af 3 (>60) L 10/27/19 12:29 Glucose 280 mg/dL (75-110) H 10/27/19 12:29 POC Glucose 191 mg/dL (70-110) H 10/27/19 17:15 Lactic Acid 1.1 mmol/L (0.7-2.1) 10/24/19 09:45 Calcium 7.7 mg/dL (8.4-10.2) L 10/27/19 12:29 Phosphorus 9.6 mg/dL (2.5-4.5) H 10/27/19 03:54 Magnesium 2.2 mg/dL (1.6-2.3) 10/27/19 03:54 Total Bilirubin 1.2 mg/dL (0.2-1.3) 10/24/19 06:30 Direct Bilirubin 1.2 mg/dL (0.0-0.4) H 10/24/19 06:30 Neonat Total Bilirubin Not Reportable 10/24/19 06:30 Neonat Direct Bilirubin Not Reportable 10/24/19 06:30 Neonat Indirect Bili Not Reportable 10/24/19 06:30 AST 16 U/L (14-36) 10/24/19 06:30 ALT 12 U/L (<35) 10/24/19 06:30 Alkaline Phosphatase 133 U/L (38-126) H 10/24/19 06:30 Troponin I 0.021 ng/mL 10/24/19 06:30 Total Protein 8.6 g/dL (6.3-8.2) H 10/24/19 06:30 Albumin 4.5 g/dL (3.5-5.0) 10/24/19 06:30 EGFR Cancelled 10/24/19 18:41 Beta-Hydroxybutyrate 0.5 mg/dL (.) 10/24/19 06:30 TSH 2.04 uIU/mL (0.47-4.68) 10/24/19 06:30 10/24/19 06:30 Troponin I 0.021 Impressions: Head CT 10/24/19 00:00 IMPRESSION: No acute intracranial findings. Chest X-Ray 10/24/19 07:06 IMPRESSION: 1. Since the previous examination dated 10/23/2019, interval worsening with diffuse fairly extensive bilateral perihilar opacities, may represent edema. 2. Cardiomegaly and pulmonary vascular congestion. Chest X-Ray 10/25/19 06:00 IMPRESSION: Unchanged radiographic appearance of the chest with asymmetric bila teral alveolar opacities. Chest X-Ray 10/26/19 06:00 IMPRESSION: NO SIGNIFICANT CHANGE IN APPEARANCE OF THE CHEST. Chest X-Ray 10/27/19 06:00 IMPRESSION: Enlarged cardiac silhouette with persistent interstitial opacities, likely edema. Findings mildly improved from prior. No large effusion. Stroke Is this a Stroke Patient?: No Acute Heart Failure - Is this a Heart Failure Patient?: No
[2019-10-29] MEDS ORDERED: SODIUM POLYSTYRENE SULFONATE 15 GM/60 ML PO SCH (10:00)
== END 2019-10-27 20:27 | disposition home or self-care (01) | DRG 291 ==
LOC: ER 06:14 → EH 11:00 → ICU 11:20 → 4W 10-27 13:26 → 4S 10-27 14:37 → 4W 10-27 16:07
PROVIDERS: ADMIT Internal Medicine Critical Care Medicine; ATTEND Internal Medicine
PROC: 5A1D70Z Performance of Urinary Filtration, Intermittent, Less than 6 Hours Per Day (ICD-10-PCS; principal; 2019-10-24)
PROC: 5A09457 Assistance with Respiratory Ventilation, 24-96 Consecutive Hours, Continuous Positive Airway Pressure (ICD-10-PCS; 2019-10-24)
DX: I13.2 Hypertensive heart and chronic kidney disease with heart failure and with stage 5 chronic kidney disease, or end stage renal disease (principal); J96.21 Acute and chronic respiratory failure with hypoxia; E10.10 Type 1 diabetes mellitus with ketoacidosis without coma; I50.33 Acute on chronic diastolic (congestive) heart failure; N18.6 End stage renal disease; Z68.41 Body mass index [BMI] 40.0-44.9, adult; E10.22 Type 1 diabetes mellitus with diabetic chronic kidney disease; G40.909 Epilepsy, unspecified, not intractable, without status epilepticus; E66.01 Morbid (severe) obesity due to excess calories; E87.5 Hyperkalemia; R51 Headache; D63.1 Anemia in chronic kidney disease; F41.9 Anxiety disorder, unspecified; J45.909 Unspecified asthma, uncomplicated; L40.9 Psoriasis, unspecified; F32.9 Major depressive disorder, single episode, unspecified; Z91.15 Patient's noncompliance with renal dialysis; Z91.14 Patient's other noncompliance with medication regimen; Z79.4 Long term (current) use of insulin; Z99.2 Dependence on renal dialysis; Z90.49 Acquired absence of other specified parts of digestive tract; Z79.82 Long term (current) use of aspirin
CPT/HCPCS: 36415; 70450; 71045; 71046; 80048; 80053; 82010; 82803; 82962; 83605; 83690; 83735; 84100; 84443; 84484; 84703; 85025; 85027; 85610; 87040; 87070; 87804; 87880; 93005; 93010; 94640; 94660; 96374; 96375; 99285; 99291; J0360; J0610; J1200; J1644; J1815; J2405; J2765; J3490; J7050; Q5105

== ENCOUNTER 2019-11-05 10:23 | Emergency (ER) | payer MEDICARE, MEDICAID ==
--- NOTE | 2019-11-05 12:10 | ER Document Report ---
ED Medical Screen (RME) - General Stated Complaint: NECK PAIN Time Seen by Provider: 11/05/19 12:07 Primary Care Provider: HILARY HERNANDEZ MD [Primary Care Provider] - Follow up as needed Mode of Arrival: Wheelchair Information source: Patient Notes: 34-year-old female with history of dialysis presents emergency department with reports she woke up this morning did not feel good. Reports shortness of breath neck pain headache lymph node swelling. Denies fever vomiting diarrhea. I have greeted and performed a rapid initial assessment of this patient. A comprehensive ED assessment and evaluation of the patient, analysis of test results and completion of the medical decision making process will be conducted by additional ED providers. Dictation of this chart was performed using voice recognition software; therefore, there may be some unintended grammatical errors. TRAVEL OUTSIDE OF THE [place] IN LAST 30 DAYS: No - Related Data Allergies/Adverse Reactions: aspirin [Aspirin] Allergy (Verified 11/05/19 12:07) Anaphylaxis ciprofloxacin [From Cipro] Allergy (Verified 11/05/19 12:07) Anaphylaxis clindamycin [Clindamycin] Allergy (Verified 11/05/19 12:07) hydrocodone [From Vicodin] Allergy (Verified 11/05/19 12:07) ibuprofen [From Motrin] Allergy (Verified 11/05/19 12:07) Anaphylaxis lidocaine [From Lidoderm] Allergy (Verified 11/05/19 12:07) Generalized rash tramadol HCl [From Ultram] Allergy (Verified 11/05/19 12:07) vancomycin [Vancomycin] Allergy (Verified 11/05/19 12:07) Shortness of Breath nitroglycerin [Nitroglycerin] Adverse Reaction (Intermediate, Verified 11/05/19 12:07) Joint pain Past Medical History - Social History Family history: Reviewed & Not Pertinent - Past Medical History Cardiac Medical History: Reports: Hx Congestive Heart Failure, Hx Coronary Artery Disease, Hx Hypertension, Hx Heart Murmur Pulmonary Medical History: Reports: Hx Asthma, Hx Pneumonia Neurological Medical History: Reports: Hx Migraine, Hx Seizures - only r/t low calcium. Denies: Hx Parkinson's Disease Endocrine Medical History: Reports: Hx Diabetes Mellitus Type 1, Hx Diabetes Mellitus Type 2 Renal/ Medical History: Reports: Hx End Stage Renal Disease - On hemodialysis M-W-, Hx Hemodialysis, Hx Ovarian Cysts. Denies: Hx Peritoneal Dialysis Malignancy Medical History: GI Medical History: Reports: Hx Gastritis Musculoskeltal Medical History: Skin Medical History: Reports Hx Psoriasis Psychiatric Medical History: Reports: Hx Depression Traumatic Medical History: Infectious Medical History: Past Surgical History: Reports: Hx Appendectomy, Hx Cholecystectomy, Hx Vascular Surgery - Lt AV Fistula and graft; Rt AV fistula - Immunizations Immunizations up to date: Yes Hx Diphtheria, Pertussis, Tetanus Vaccination: Yes Physical Exam - Vital signs Vitals: Temp Pulse Resp BP Pulse Ox 98 F 102 H 24 H 156/90 H 94 11/05/19 10:50 11/05/19 10:50 11/05/19 10:50 11/05/19 10:50 11/05/19 10:50 Course - Vital Signs Vital signs: Temp Pulse Resp BP Pulse Ox 98 F 102 H 24 H 156/90 H 94 11/05/19 10:50 11/05/19 10:50 11/05/19 10:50 11/05/19 10:50 11/05/19 10:50 Doctor's Discharge - Discharge Referrals: HILARY HERNANDEZ MD [Primary Care Provider] - Follow up as needed
[2019-11-05 13:38] LABS: ABSOLUTE BASOPHILS # (AUTO) 0.1 10^3/uL (0.0-0.2); ABSOLUTE EOSINOPHILS # (AUTO) 0.6 10^3/uL (0.0-0.6); ABSOLUTE LYMPHOCYTES (AUTO) 2.3 10^3/uL (0.5-4.7); ABSOLUTE MONOCYTES (AUTO) 0.7 10^3/uL (0.1-1.4); ABSOLUTE NEUT (AUTO) 9.7 10^3/uL (1.7-8.2); BASOPHILS % (AUTO) 0.9 % (0-2); EOSINOPHILS % (AUTO) 4.7 % (0-6); HEMATOCRIT 29.2 % (36.0-47.0); HEMOGLOBIN 9.3 g/dL (12.0-15.5); MEAN CORPUSCULAR HEMOGLOBIN 27.2 pg (27.0-33.4); MEAN CORPUSCULAR HGB CONC 31.8 g/dL (32.0-36.0); MEAN CORPUSCULAR VOLUME 86 fl (80-97); MONOCYTES % (AUTO) 5.3 % (3-13); PLATELET COUNT 337 10^3/uL (150-450); RED BLOOD COUNT 3.41 10^6/uL (3.72-5.28); RED CELL DISTRIBUTION WIDTH 17.3 % (11.5-14.0); SEGMENTED NEUTROPHILS % (AUTO) 72.1 % (42-78); TOTAL CELLS COUNTED % (AUTO) 100 %; WHITE BLOOD COUNT 13.5 10^3/uL (4.0-10.5)
[2019-11-05 13:54] LABS: ALBUMIN 4.7 g/dL (3.5-5.0); ALKALINE PHOSPHATASE 135 U/L (38-126); ASPARTATE AMINO TRANSFERASE 15 U/L (14-36); BILIRUBIN,DIRECT 0.5 mg/dL (0.0-0.4); BILIRUBIN,TOTAL 0.5 mg/dL (0.2-1.3); BLOOD UREA NITROGEN 112 mg/dL (7-20); GLUCOSE 333 mg/dL (75-110); POTASSIUM 4.4 mmol/L (3.6-5.0); TOTAL PROTEIN 8.6 g/dL (6.3-8.2)
[2019-11-05 13:59] LABS: CARBON DIOXIDE 17 mmol/L (22-30); CHLORIDE 94 mmol/L (98-107)
[2019-11-05 14:02] LABS: ANION GAP 25 (5-19)
--- NOTE | 2019-11-05 14:07 | RADIOLOGY REPORT (SQ) ---
EXAM DESCRIPTION: CHEST 2 VIEWS COMPLETED DATE/TIME: 11/05/2019 1:49 pm REASON FOR STUDY: chest pain COMPARISON: 10/27/2019. TECHNIQUE: Frontal and lateral radiographic views of the chest acquired. NUMBER OF VIEWS: Two view. LIMITATIONS: None. FINDINGS: LUNGS AND PLEURA: No evidence of consolidating pneumonia. No nodules or masses. MEDIASTINUM AND HILAR STRUCTURES: Stable contours. HEART AND VASCULAR STRUCTURES: Cardiac enlargement with vascular congestion and indistinct appearance of the vessels. No significant pleural fluid. BONES: No acute findings. HARDWARE: None in the chest. OTHER: No other significant finding. IMPRESSION: Cardiomegaly and vascular congestion, similar to prior. TECHNICAL DOCUMENTATION: JOB ID: [id number] [employer]- All Rights Reserved Reading location - IP/workstation name: [email or web address]
--- NOTE | 2019-11-05 15:45 | EKG REPORT ---
SEVERITY:- ABNORMAL ECG - SINUS RHYTHM FIRST DEGREE AV BLOCK PROBABLE LEFT VENTRICULAR HYPERTROPHY PROLONGED QT INTERVAL : Confirmed by: Ciro Beckford MD 05-Nov-2019 15:44:49
--- NOTE | 2019-11-05 17:39 | ER Document Report ---
Entered by TRENT VILLAREAL SCRIBE 11/05/19 [id number] Acting as scribe for:RAJINDER SOMMERS IV, MD ED General - General Chief Complaint: Flu Symptoms Stated Complaint: NECK PAIN Time Seen by Provider: 11/05/19 12:07 Primary Care Provider: HILARY HERNANDEZ MD [Primary Care Provider] - Follow up as needed Mode of Arrival: Wheelchair Notes: This 34-year-old female patient is incredibly well-known to staff here with over 10 visits here in the last month or two, presenting today with complaints of "I noticed my lymph nodes were swollen when I woke up". Patient also adds that she has some throat discomfort. Patient was sleeping upon entry into room and continued to doze off during the entire interaction. Patient did not really provide much of any meaningful his tory. TRAVEL OUTSIDE OF THE [place] IN LAST 30 DAYS: No - Related Data Allergies/Adverse Reactions: aspirin [Aspirin] Allergy (Verified 11/05/19 12:07) Anaphylaxis ciprofloxacin [From Cipro] Allergy (Verified 11/05/19 12:07) Anaphylaxis clindamycin [Clindamycin] Allergy (Verified 11/05/19 12:07) hydrocodone [From Vicodin] Allergy (Verified 11/05/19 12:07) ibuprofen [From Motrin] Allergy (Verified 11/05/19 12:07) Anaphylaxis lidocaine [From Lidoderm] Allergy (Verified 11/05/19 12:07) Generalized rash tramadol HCl [From Ultram] Allergy (Verified 11/05/19 12:07) vancomycin [Vancomycin] Allergy (Verified 11/05/19 12:07) Shortness of Breath nitroglycerin [Nitroglycerin] Adverse Reaction (Intermediate, Verified 11/05/19 12:07) Joint pain Past Medical History - General Information source: Patient - Social History Smoking Status: Never Smoker Cigarette use (# per day): No Chew tobacco use (# tins/day): No Frequency of alcohol use: None Drug Abuse: None Lives with: Family Family History: Reviewed & Not Pertinent Patient has suicidal ideation: No Patient has homicidal ideation: No - Past Medical History Cardiac Medical History: Reports: Hx Congestive Heart Failure, Hx Coronary Artery Disease, Hx Hypertension, Hx Heart Murmur Pulmonary Medical History: Reports: Hx Asthma, Hx Pneumonia Neurological Medical History: Reports: Hx Migraine, Hx Seizures - only r/t low calcium. Denies: Hx Parkinson's Disease Endocrine Medical History: Reports: Hx Diabetes Mellitus Type 1, Hx Diabetes Mellitus Type 2 Renal/ Medical History: Reports: Hx End Stage Renal Disease - On hemodialysis -W-, Hx Hemodialysis, Hx Ovarian Cysts. Denies: Hx Peritoneal Dialysis Malignancy Medical History: GI Medical History: Reports: Hx Gastritis Musculoskeletal Medical History: Skin Medical History: Reports Hx Psoriasis Psychiatric Medical History: Reports: Hx Depression Traumatic Medical History: Infectious Medical History: Past Surgical History: Reports: Hx Appendectomy, Hx Cholecystectomy, Hx Vascular Surgery - Lt AV Fistula and graft; Rt AV fistula - Immunizations Immunizations up to date: Yes Hx Diphtheria, Pertussis, Tetanus Vaccination: Yes Hx Pneumococcal Vaccination: 08/22/11 Review of Systems - Review of Systems Constitutional: No symptoms reported EENT: See HPI, Throat pain Cardiovascular: No symptoms reported Respiratory: No symptoms reported Gastrointestinal: No symptoms reported Genitourinary: No symptoms reported Female Genitourinary: No symptoms reported Musculoskeletal: No symptoms reported Skin: No symptoms reported Hematologic/Lymphatic: No symptoms reported Neurological/Psychological: No symptoms reported -: Yes All other systems reviewed and negative Physical Exam - Vital signs Vitals: Temp Pulse Resp BP Pulse Ox 98 F 102 H 24 H 156/90 H 94 11/05/19 10:50 11/05/19 10:50 11/05/19 10:50 11/05/19 10:50 11/05/19 10:50 - Notes Notes: Physical Exam: General: Alert, appears well. HEENT: Normocephalic. Atraumatic. PERRL. Extraocular movements intact. Oropharynx clear. Neck: Supple. Non-tender. Respiratory: No respiratory distress. Clear and equal breath sounds bilaterally. Cardiovascular: Regular rate and rhythm. Abdominal: Normal Inspection. Non-tender. No distension. Normal Bowel Sounds. Back: No gross abnormalities. Extremities: Moves all four extremities. Upper extremities: Normal inspection. Normal ROM. Lower extremities: Normal inspection. No edema. Normal ROM. Neurological: Normal cognition. AAOx4. Normal speech. Psychological: Normal affect. Normal Mood. Skin: Warm. Dry. Normal color. Course - Re-evaluation Re-evalutation: 11/05/19 18:27 Results of the ED MSE discussed with patient. - Vital Signs Vital signs: Temp Pulse Resp BP Pulse Ox 97.4 F 95 18 171/88 H 96 11/05/19 16:30 11/05/19 16:30 11/05/19 16:30 11/05/19 16:30 11/05/19 16:30 - Laboratory Result Diagrams: 11/05/19 13:19 11/05/19 13:19 Laboratory results interpreted by me: 11/05/19 11/05/19 13:19 13:19 WBC 13.5 H RBC 3.41 L Hgb 9.3 L Hct 29.2 L MCHC 31.8 L RDW 17.3 H Absolute Neuts (auto) 9.7 H Sodium 135.8 L Chloride 94 L Carbon Dioxide 17 L Anion Gap 25 H BUN 112 H Creatinine 11.92 H Est GFR ( Amer) 4 L Est GFR (MDRD) Non-Af 4 L Glucose 333 H Calcium 8.0 L Direct Bilirubin 0.5 H Alkaline Phosphatase 135 H Total Protein 8.6 H Discharge - Discharge Clinical Impression: Viral syndrome Condition: Good Disposition: HOME, SELF-CARE Instructions: Viral Syndrome ([facility]) Additional Instructions: Return to the Emergency Department without delay if any worse. HOME CARE INSTRUCTIONS & INFORMATION: Thank you for choosing us for your medical needs. We hope you're satisfied with the care you received. After you leave, you must properly care for your problem and, at the same time, observe its progress. Any condition can change. Some illnesses can change rapidly over hours or days. If your condition worsens, return to the Emergency Department or see your physician promptly. ABOUT YOUR X-RAYS AND EKG'S: If you had an EKG or X-rays taken, they have been read by the Emergency Physician. The X-rays and EKG's will also be read by a Radiologist or Itinerant Teacher Assistant within 24 hours. If discrepancies are noted, you will be notified by telephone. Please be certain the ED has a correct telephone number & address where you can be reached. Also, realize that some fractures or abnormalities do not show up on initial X-rays. If your symptoms continue, see your physician. ABOUT YOUR LABORATORY TEST: If you had laboratory tests, the results have been reviewed by the Emergency Physician. Some test results (for example cultures) may not be available for several days. You will be contacted if any test result shows you need additional treatment. Please be certain the ED has a correct telephone number and address where you can be reached. ABOUT YOUR MEDICATIONS: You will receive instructions on how to take your medicine on the prescription label you receive. Additional information may be provided by the Pharmacy. If you have questions afterwards, call the ED for clarification or further instructions. Some prescribed medications may cause drowsiness. Do not perform tasks such as driving a car or operating machinery without consulting your Pharmacist. If you feel you need a refill of pain medication, your condition will need re-evaluation. Please do not call for a refill of any medication. ABOUT YOUR SIGNATURE: Signature of this document acknowledges to followin. Understanding that you received emergency treatment and that you may be released before al medical problems are known or treated. Please be certain the ED has a correct phone number & address where you can be reached. 2. Acknowledgement that you will arrange for follow-up care as recommended. 3. Authorization for the Emergency Physician to provide information to your follow-up Physician in order to maximize your care. AT ANY TIME, IF YOUR SYMPTOMS CHANGE SIGNIFICANTLY OR WORSEN OR YOU DEVELOP NEW SYMPTOMS, RETURN TO THE EMERGENCY DEPARTMENT IMMEDIATELY FOR RE-EVALUATION. OUR GOAL IS TO PROVIDE EXCELLENT MEDICAL CARE! WE HOPE THAT WE HAVE MET YOUR EXPECTATIONS DURING YOUR EMERGENCY DEPARTMENT VISIT AND THAT YOU FEEL YOU HAVE RECEIVED EXCELLENT CARE! Referrals: IHLARY HERNANDEZ MD [Primary Care Provider] - Follow up as needed I personally performed the services described in the documentation, reviewed and edited the documentation which was dictated to the scribe in my presence, and it accurately records my words and actions.
[2019-11-05] MEDS ORDERED: DEXAMETHASONE SOD PHOS INJ 10 MG/1 ML VIAL IM ONE (18:04)
[2019-11-05 19:21] VITALS: BP 185/88
== END 2019-11-05 19:21 | disposition home or self-care (01) ==
LOC: ER 10:23
DX: B34.9 Viral infection, unspecified (principal); M54.2 Cervicalgia; R59.9 Enlarged lymph nodes, unspecified; I50.9 Heart failure, unspecified; I25.10 Atherosclerotic heart disease of native coronary artery without angina pectoris; I11.0 Hypertensive heart disease with heart failure; J45.909 Unspecified asthma, uncomplicated; E11.9 Type 2 diabetes mellitus without complications
CPT/HCPCS: 93005; 36415; 87070; 87880; 85025; 80053; 84484; 71046; 93010; J1100; 96372; 99284

== ENCOUNTER 2019-11-06 10:20 | Emergency (ER) | payer MEDICARE, MEDICAID ==
[2019-11-06 11:17] LABS: ABSOLUTE BASOPHILS # (AUTO) 0.1 10^3/uL (0.0-0.2); ABSOLUTE LYMPHOCYTES (AUTO) 1.5 10^3/uL (0.5-4.7); ABSOLUTE MONOCYTES (AUTO) 0.6 10^3/uL (0.1-1.4); ABSOLUTE NEUT (AUTO) 13.8 10^3/uL (1.7-8.2); BASOPHILS % (AUTO) 0.4 % (0-2); EOSINOPHILS % (AUTO) 0.1 % (0-6); HEMATOCRIT 30.1 % (36.0-47.0); HEMOGLOBIN 9.6 g/dL (12.0-15.5); LYMPHOCYTES % (AUTO) 9.6 % (13-45); MEAN CORPUSCULAR HEMOGLOBIN 27.3 pg (27.0-33.4); MEAN CORPUSCULAR HGB CONC 31.9 g/dL (32.0-36.0); MEAN CORPUSCULAR VOLUME 86 fl (80-97); MONOCYTES % (AUTO) 3.8 % (3-13); PLATELET COUNT 339 10^3/uL (150-450); RED BLOOD COUNT 3.52 10^6/uL (3.72-5.28); RED CELL DISTRIBUTION WIDTH 17.4 % (11.5-14.0); SEGMENTED NEUTROPHILS % (AUTO) 86.1 % (42-78); TOTAL CELLS COUNTED % (AUTO) 100 %
[2019-11-06 11:43] LABS: ALBUMIN 4.6 g/dL (3.5-5.0); ALKALINE PHOSPHATASE 136 U/L (38-126); ASPARTATE AMINO TRANSFERASE 22 U/L (14-36); BILIRUBIN,DIRECT 0.6 mg/dL (0.0-0.4); BILIRUBIN,TOTAL 0.7 mg/dL (0.2-1.3); CALCIUM 7.6 mg/dL (8.4-10.2); CARBON DIOXIDE 16 mmol/L (22-30); CHLORIDE 93 mmol/L (98-107); POTASSIUM 5.2 mmol/L (3.6-5.0); TOTAL PROTEIN 8.5 g/dL (6.3-8.2)
[2019-11-06 11:52] LABS: TROPONIN I 0.015 ng/mL
[2019-11-06 11:57] LABS: BLOOD UREA NITROGEN 129 mg/dL (7-20)
[2019-11-06 12:00] LABS: GLUCOSE 488 mg/dL (75-110)
--- NOTE | 2019-11-06 12:09 | RADIOLOGY REPORT (SQ) ---
EXAM DESCRIPTION: CHEST SINGLE VIEW COMPLETED DATE/TIME: 11/06/2019 11:37 am REASON FOR STUDY: sob COMPARISON: 11/05/2019 EXAM PARAMETERS: NUMBER OF VIEWS: One view. TECHNIQUE: Single frontal radiographic view of the chest acquired. RADIATION DOSE: NA LIMITATIONS: None. FINDINGS: LUNGS AND PLEURA: Diffuse bilateral alveolar airspace disease throughout the right lung fi eld and in the left base. Findings have progressed significantly from yesterday. MEDIASTINUM AND HILAR STRUCTURES: No masses. Contour normal. HEART AND VASCULAR STRUCTURES: Heart remains enlarged with central vascular prominence. BONES: No acute findings. HARDWARE: None in the chest. OTHER: No other significant finding. IMPRESSION: Cardiomegaly and bilateral alveolar airspace disease consistent with pulmonary edema. TECHNICAL DOCUMENTATION: JOB ID: [id number] [employer]- All Rights Reserved Reading location - IP/workstation name: [email or web address]
[2019-11-06] MEDS ORDERED: ONDANSETRON 4 MG TAB.RAPDIS PO ONE (12:22)
[2019-11-06 12:27] LABS: ANION GAP 24 (5-19)
--- NOTE | 2019-11-06 12:28 | ER Document Report ---
ED Respiratory Problem - General Chief Complaint: Breathing Difficulty Stated Complaint: SHORTNESS OF BREATH Time Seen by Provider: 11/06/19 10:43 Primary Care Provider: HILARY HERNANDEZ MD [Primary Care Provider] - Follow up as needed Notes: Ms. Monae is a 34 yo f w/ extensive medical history most notable for end-stage renal disease on dialysis Wednesday brought in by EMS for shortness of breath and chest pain. Patient was just seen here yesterday for neck pain and sore throat. Patient is a frequent flyer to the ED. She states she did not feel well this morning therefore she did not go to dialysis however she is due for dialysis today. Patient endorsing right-sided chest pain with difficulty breathing. Upon evaluation, the patient had already been placed on BiPAP. Patient denies any fevers but does endorse chills. She denies any cough or production of sputum. Patient denies any nausea, vomiting or diarrhea. TRAVEL OUTSIDE OF THE [place] IN LAST 30 DAYS: No - Related Data Allergies/Adverse Reactions: aspirin [Aspirin] Allergy (Verified 11/05/19 12:07) Anaphylaxis ciprofloxacin [From Cipro] Allergy (Verified 11/05/19 12:07) Anaphylaxis clindamycin [Clindamycin] Allergy (Verified 11/05/19 12:07) hydrocodone [From Vicodin] Allergy (Verified 11/05/19 12:07) ibuprofen [From Motrin] Allergy (Verified 11/05/19 12:07) Anaphylaxis lidocaine [From Lidoderm] Allergy (Verified 11/05/19 12:07) Generalized rash tramadol HCl [From Ultram] Allergy (Verified 11/05/19 12:07) vancomycin [Vancomycin] Allergy (Verified 11/05/19 12:07) Shortness of Breath nitroglycerin [Nitroglycerin] Adverse Reaction (Intermediate, Verified 11/05/19 12:07) Joint pain Past Medical History - Social History Smoking Status: Unknown if Ever Smoked Frequency of alcohol use: None Drug Abuse: None Family History: Reviewed & Not Pertinent Patient has suicidal ideation: No Patient has homicidal ideation: No - Past Medical History Cardiac Medical History: Reports: Hx Congestive Heart Failure, Hx Coronary Artery Disease, Hx Hypertension, Hx Heart Murmur Pulmonary Medical History: Reports: Hx Asthma, Hx Pneumonia Neurological Medical History: Reports: Hx Migraine, Hx Seizures - only r/t low calcium. Denies: Hx Parkinson's Disease Endocrine Medical History: Reports: Hx Diabetes Mellitus Type 1, Hx Diabetes Mellitus Type 2 Renal/ Medical History: Reports: Hx End Stage Renal Disease - On hemodialysis --, Hx Hemodialysis, Hx Ovarian Cysts. Denies: Hx Peritoneal Dialysis Malignancy Medical History: GI Medical History: Reports: Hx Gastritis Musculoskeletal Medical History: Skin Medical History: Reports Hx Psoriasis Psychiatric Medical History: Reports: Hx Depression Traumatic Medical History: Infectious Medical History: Past Surgical History: Reports: Hx Appendectomy, Hx Cholecystectomy, Hx Vascular Surgery - Lt AV Fistula and graft; Rt AV fistula - Immunizations Immunizations up to date: Yes Hx Diphtheria, Pertussis, Tetanus Vaccination: Yes Hx Pneumococcal Vaccination: 08/22/11 Review of Systems - Review of Systems Constitutional: See HPI EENT: No symptoms reported Cardiovascular: See HPI Respiratory: See HPI Gastrointestinal: No symptoms reported Genitourinary: No symptoms reported Female Genitourinary: No symptoms reported Musculoskeletal: No symptoms reported Skin: No symptoms reported Hematologic/Lymphatic: No symptoms reported Neurological/Psychological: No symptoms reported Physical Exam - Vital signs Vitals: Pulse Ox 93 11/06/19 07:22 Interpretation: Hypertensive, Tachycardic, Tachypneic - General General appearance: Appears well, Alert In distress: Mild - HEENT Head: Normocephalic, Atraumatic Eyes: Normal Pupils: PERRL - Respiratory Respiratory status: No respiratory distress Chest status: Nontender Breath sounds: Decreased air movement, Rales - In bilateral bases Chest palpation: Normal - Cardiovascular Rhythm: Regular Heart sounds: Normal auscultation Murmur: No - Abdominal Inspection: Normal Distension: No distension Bowel sounds: Normal Tenderness: Nontender Organomegaly: No organomegaly - Back Back: Normal, Nontender - Extremities General upper extremity: Normal inspection, Nontender, Normal color, Normal ROM, Normal temperature General lower extremity: Normal inspection, Nontender, Normal color, Normal ROM, Normal temperature, Normal weight bearing. No: Lina's sign - Neurological Neuro grossly intact: Yes Cognition: Normal Orientation: AAOx4 [place] Coma Scale Eye Opening: Spontaneous [place] Coma Scale Verbal: Oriented [place] Coma Scale Motor: Obeys Commands [place] Coma Scale Total: 15 Speech: Normal Motor strength normal: LUE, RUE, LLE, RLE Sensory: Normal - Psychological Associated symptoms: Normal mood, Anxious - Skin Skin Temperature: Warm Skin Moisture: Dry Skin Color: Normal Course - Re-evaluation Re-evalutation: Patient is generally well-appearing and nontoxic however she does appear anxious. Initial vitals notable for elevated blood pressure as well as tachypnea with tachycardia. Differential diagnosis includes electrolyte abnormality, volume overload, ACS (unlikely), pneumonia (less likely) That the patient missed dialysis and is due for dialysis today, her elevated blood pressure and tachypnea as well as shortness of breath are all likely related to volume overload. Labs and chest x-ray were ordered from triage. CBC notable for leukocytosis of 16 with some left shift. H&H is low however stable for this patient. CMP notable for multiple abnormalities including creatinine, elevated BUN of 129 and hyperglycemia 488. BNP is significantly elevated at greater than 6500. Initial troponin is negative and EKG is nonischemic. Chest x-ray is consistent with cardiomegaly and bilateral alveolar airspace disease with pulmonary edema. This is all likely related to the fact that the patient is due for dialysis. 11/06/19 12:24 Patient feels nauseated. Zofran ODT ordered. Patient appears clinically volume overloaded with pulmonary edema on chest x-ray elevated BNP and given that it is her day for dialysis, she is due and will feel improved after dialysis is performed and the volume is removed from her lungs. Transport was coordinated by nursing care as a dialysis center stated that they could still do a full session of dialysis for 4 hours if she arrived before 1:00. 11/06/19 12:40 Transport team here for patient. Patient felt improved after the Zofran. Patient will be transported directly to her dialysis center to have a session of dialysis. Patient given return precautions. - Vital Signs Vital signs: Temp Pulse Resp BP Pulse Ox 98.6 F 107 H 20 171/132 H 96 11/06/19 12:33 11/06/19 12:33 11/06/19 12:33 11/06/19 12:33 11/06/19 12:33 - Laboratory Result Diagrams: 11/06/19 11:05 11/06/19 11:05 Laboratory results interpreted by me: 11/06/19 11/06/19 11/06/19 11:05 11:05 11:05 WBC 16.0 H RBC 3.52 L Hgb 9.6 L Hct 30.1 L MCHC 31.9 L RDW 17.4 H Lymph % (Auto) 9.6 L Absolute Neuts (auto) 13.8 H Seg Neutrophils % 86.1 H Sodium 132.8 L Potassium 5.2 H Chloride 93 L Carbon Dioxide 16 L Anion Gap 24 H BUN 129 H Creatinine 13.63 H Est GFR ( Amer) 4 L Est GFR (MDRD) Non-Af 3 L Glucose 488 H* Calcium 7.6 L Direct Bilirubin 0.6 H Alkaline Phosphatase 136 H NT-Pro-B Natriuret Pep 6570 H Total Protein 8.5 H - EKG Interpretation by Me EKG shows normal: Sinus rhythm, QRS Complexes, ST-T Waves Rate: Tachycardia Rhythm: NSR [place]/QRS: Right axis deviation Voltage: Consistant with LVH When compared to previous EKG there are: No significant change, Other - Prolonged QT Discharge - Discharge Clinical Impression: Missed dialysis, Hyperglycemia, Nausea, Noncompliance with medication regimen, Anxiety Volume overload Qualifiers: Hypervolemia type: unspecified Qualified Code(s): E87.70 - Fluid overload, unspecified Condition: Fair Disposition: DAVITA Additional Instructions: It is important that you are compliant with your dialysis. Otherwise you will feel short of breath and ill. Referrals: HILARY HERNANDEZ MD [Primary Care Provider] - Follow up as needed
[2019-11-06 12:36] VITALS: BP 171/132
[2019-11-06] MEDS ORDERED: DEXTROSE 50%-WATER 25 GM/50 ML DISP.SYRIN IV PRN ×2 (22:27)
[2019-11-06] MEDS ORDERED: DEXTROSE 40% GEL 15 GM TUBE PO PRN ×2 (22:27)
[2019-11-06] MEDS ORDERED: GLUCAGON,HUMAN RECOMB 1 MG INJ IM PRN (22:27)
[2019-11-06] MEDS ORDERED: HEPARIN SOD (PORCINE) 5,000 UNIT/ML 1 ML VIAL SUBCUT SCH (22:30)
[2019-11-06] MEDS ORDERED: INSULIN LISPRO 100 UNIT/ML 3 ML VIAL SUBCUT SCH (22:30)
[2019-11-06] MEDS ORDERED: CEFTRIAXONE 1 GM/D5W RTU 1 GM/50 ML RTUPB IV ONE (23:00)
--- NOTE | 2019-11-07 00:21 | EKG REPORT ---
SEVERITY:- ABNORMAL ECG - SINUS TACHYCARDIA PROBABLE LEFT VENTRICULAR HYPERTROPHY BORDERLINE PROLONGED QT INTERVAL APC : Confirmed by: Daniela Lemons 07-Nov-2019 00:20:56
[2019-11-07] MEDS ORDERED: CEFTRIAXONE 1 GM/D5W RTU 1 GM/50 ML RTUPB IV SCH (22:00)
== END 2019-11-06 12:33 | disposition home health service (06) ==
LOC: ER 10:20
DX: I12.0 Hypertensive chronic kidney disease with stage 5 chronic kidney disease or end stage renal disease (principal); E11.22 Type 2 diabetes mellitus with diabetic chronic kidney disease; E11.65 Type 2 diabetes mellitus with hyperglycemia; N18.6 End stage renal disease; Z99.2 Dependence on renal dialysis; Z91.15 Patient's noncompliance with renal dialysis; E87.70 Fluid overload, unspecified; R07.9 Chest pain, unspecified; R68.83 Chills (without fever); R11.0 Nausea; F41.9 Anxiety disorder, unspecified; D72.829 Elevated white blood cell count, unspecified; J45.909 Unspecified asthma, uncomplicated; R06.02 Shortness of breath; R00.0 Tachycardia, unspecified; I25.10 Atherosclerotic heart disease of native coronary artery without angina pectoris; Z91.14 Patient's other noncompliance with medication regimen; Z87.892 Personal history of anaphylaxis; Z88.8 Allergy status to other drugs, medicaments and biological substances; Z88.4 Allergy status to anesthetic agent; Z88.1 Allergy status to other antibiotic agents; Z88.6 Allergy status to analgesic agent; Z88.5 Allergy status to narcotic agent
CPT/HCPCS: 99285; 36415; 85025; 80053; 84484; 83880; 71045; 93005; 93010; 94660; A9270; S0119

== ENCOUNTER 2019-11-06 14:04 | Inpatient (IN) | payer MEDICARE, MEDICAID ==
[~2019-11-06 14:04] MED LIST: PIPERACILLIN SODIUM/TAZOBACTAM 3.375 GM in NORMAL SALINE 100 ML IV SCH
--- NOTE | 2019-11-06 15:36 | ER Document Report ---
ED Medical Screen (RME) - General Chief Complaint: Shortness Of Breath Stated Complaint: SHORTNESS OF BREATH Time Seen by Provider: 11/06/19 15:28 Primary Care Provider: HILARY HERNANDEZ MD [Primary Care Provider] - Follow up as needed Mode of Arrival: Wheelchair Information source: Patient Notes: 34-year-old dialysis patient presents to the emergency department for the second time today reporting her chest is hurting and she cannot breathe. O2 sats are 88% to 90% on non rebreather. Patient's reporting her chest is hurting. Patient is very tearful I have greeted and performed a rapid initial assessment of this patient. A comprehensive ED assessment and evaluation of the patient, analysis of test results and completion of the medical decision making process will be conducted by additional ED providers. Dictation of this chart was performed using voice recognition software; therefore, there may be some unintended grammatical errors. TRAVEL OUTSIDE OF THE [place] IN LAST 30 DAYS: No - Related Data Allergies/Adverse Reactions: aspirin [Aspirin] Allergy (Verified 11/05/19 12:07) Anaphylaxis ciprofloxacin [From Cipro] Allergy (Verified 11/05/19 12:07) Anaphylaxis clindamycin [Clindamycin] Allergy (Verified 11/05/19 12:07) hydrocodone [From Vicodin] Allergy (Verified 11/05/19 12:07) ibuprofen [From Motrin] Allergy (Verified 11/05/19 12:07) Anaphylaxis lidocaine [From Lidoderm] Allergy (Verified 11/05/19 12:07) Generalized rash tramadol HCl [From Ultram] Allergy (Verified 11/05/19 12:07) vancomycin [Vancomycin] Allergy (Verified 11/05/19 12:07) Shortness of Breath nitroglycerin [Nitroglycerin] Adverse Reaction (Intermediate, Verified 11/05/19 12:07) Joint pain Past Medical History - Social History Family history: Reviewed & Not Pertinent - Past Medical History Cardiac Medical History: Reports: Hx Congestive Heart Failure, Hx Coronary Artery Disease, Hx Hypertension, Hx Heart Murmur Pulmonary Medical History: Reports: Hx Asthma, Hx Pneumonia Neurological Medical History: Reports: Hx Migraine, Hx Seizures - only r/t low calcium. Denies: Hx Parkinson's Disease Endocrine Medical History: Reports: Hx Diabetes Mellitus Type 1, Hx Diabetes Mellitus Type 2 Renal/ Medical History: Reports: Hx End Stage Renal Disease - On hemodialysis -W-, Hx Hemodialysis, Hx Ovarian Cysts. Denies: Hx Peritoneal Dialysis Malignancy Medical History: GI Medical History: Reports: Hx Gastritis Musculoskeltal Medical History: Skin Medical History: Reports Hx Psoriasis Psychiatric Medical History: Reports: Hx Depression Traumatic Medical History: Infectious Medical History: Past Surgical History: Reports: Hx Appendectomy, Hx Cholecystectomy, Hx Vascular Surgery - Lt AV Fistula and graft; Rt AV fistula - Immunizations Immunizations up to date: Yes Hx Diphtheria, Pertussis, Tetanus Vaccination: Yes Doctor's Discharge - Discharge Referrals: HILARY HERNANDEZ MD [Primary Care Provider] - Follow up as needed
--- NOTE | 2019-11-06 16:12 | RADIOLOGY REPORT (SQ) ---
EXAM DESCRIPTION: CHEST 2 VIEWS COMPLETED DATE/TIME: 11/06/2019 3:58 pm REASON FOR STUDY: cp sob COMPARISON: 11/06/2019 at 1128 hours. EXAM PARAMETERS: NUMBER OF VIEWS: two views TECHNIQUE: Digital Frontal and Lateral radiographic views of the chest acquired. RADIATION DOSE: NA LIMITATIONS: none FINDINGS: LUNGS AND PLEURA: Extensive bilateral airspace disease. No large pleural effusion. MEDIASTINUM AND HILAR STRUCTURES: No masses or contour abnormalities. HEART AND VASCULAR STRUCTURES: Stable cardiomegaly. BONES: No acute findings. HARDWARE: Vascular stents. OTHER: No other significant finding. IMPRESSION: NO CHANGE IN APPEARANCE OF THE CHEST. TECHNICAL DOCUMENTATION: JOB ID: [id number] [employer]- All Rights Reserved Reading location - IP/workstation name: [email or web address]
[2019-11-06 16:44] LABS: HEMATOCRIT 30.7 % (36.0-47.0); HEMOGLOBIN 9.7 g/dL (12.0-15.5); MEAN CORPUSCULAR HEMOGLOBIN 27.1 pg (27.0-33.4); MEAN CORPUSCULAR HGB CONC 31.8 g/dL (32.0-36.0); MEAN CORPUSCULAR VOLUME 85 fl (80-97); PLATELET COUNT 336 10^3/uL (150-450); RED CELL DISTRIBUTION WIDTH 17.2 % (11.5-14.0); WHITE BLOOD COUNT 23.9 10^3/uL (4.0-10.5)
[2019-11-06 17:04] LABS: ALBUMIN 4.7 g/dL (3.5-5.0); ALKALINE PHOSPHATASE 145 U/L (38-126); ASPARTATE AMINO TRANSFERASE 31 U/L (14-36); BILIRUBIN,DIRECT 0.6 mg/dL (0.0-0.4); BILIRUBIN,TOTAL 0.7 mg/dL (0.2-1.3); BLOOD UREA NITROGEN 118 mg/dL (7-20); CALCIUM 7.7 mg/dL (8.4-10.2); TOTAL PROTEIN 8.7 g/dL (6.3-8.2)
[2019-11-06 17:09] LABS: CARBON DIOXIDE 17 mmol/L (22-30); CHLORIDE 93 mmol/L (98-107)
[2019-11-06 17:11] LABS: ANION GAP 25 (5-19)
[2019-11-06 17:12] LABS: GLUCOSE 415 mg/dL (75-110)
[2019-11-06 17:13] LABS: ABSOLUTE LYMPHOCYTES# (MANUAL) 1.2 10^3/uL (0.5-4.7); ABSOLUTE MONOCYTES # (MANUAL) 0.2 10^3/uL (0.1-1.4); BASOPHILS % (MANUAL) 0 % (0-2); EOSINOPHILS % (MANUAL) 0 % (0-6); LYMPHOCYTES % (MANUAL) 5 % (13-45); MONOCYTES % (MANUAL) 1 % (3-13); SEGMENTED NEUTROPHILS % (MAN) 94 % (42-78); TOTAL CELLS COUNTED 100
[2019-11-06 17:14] LABS: ANISOCYTOSIS 1+; PLATELET COMMENT ADEQUATE
[2019-11-06 17:15] LABS: OVALOCYTES SLIGHT; POLYCHROMASIA SLIGHT
--- NOTE | 2019-11-06 21:35 | ER Document Report ---
ED General - General Chief Complaint: Shortness Of Breath Stated Complaint: SHORTNESS OF BREATH Time Seen by Provider: 11/06/19 15:28 Primary Care Provider: HILARY HERNANDEZ MD [Primary Care Provider] - Follow up as needed Mode of Arrival: Wheelchair Notes: 34-year-old woman presents to the emergency department history of diagnosed with asthma exacerbation and bronchitis on put on penicillin time. She is continued to have a increasing difficulty giving and shortness of breath. She went to dialysis this morning but can only stay for an hour. She then came to the emergency department for further evaluation and treatment. She complains of headache, shortness of breath and difficulty breathing. Presently requiring facemask O2. TRAVEL OUTSIDE OF THE [place] IN LAST 30 DAYS: No - Related Data Allergies/Adverse Reactions: aspirin [Aspirin] Allergy (Verified 11/05/19 12:07) Anaphylaxis ciprofloxacin [From Cipro] Allergy (Verified 11/05/19 12:07) Anaphylaxis clindamycin [Clindamycin] Allergy (Verified 11/05/19 12:07) hydrocodone [From Vicodin] Allergy (Verified 11/05/19 12:07) ibuprofen [From Motrin] Allergy (Verified 11/05/19 12:07) Anaphylaxis lidocaine [From Lidoderm] Allergy (Verified 11/05/19 12:07) Generalized rash tramadol HCl [From Ultram] Allergy (Verified 11/05/19 12:07) vancomycin [Vancomycin] Allergy (Verified 11/05/19 12:07) Shortness of Breath nitroglycerin [Nitroglycerin] Adverse Reaction (Intermediate, Verified 11/05/19 12:07) Joint pain Past Medical History - General Information source: Patient - Social History Smoking Status: Unknown if Ever Smoked Family History: Reviewed & Not Pertinent Patient has suicidal ideation: No Patient has homicidal ideation: No - Past Medical History Cardiac Medical History: Reports: Hx Congestive Heart Failure, Hx Coronary Artery Disease, Hx Hypertension, Hx Heart Murmur Pulmonary Medical History: Reports: Hx Asthma, Hx Pneumonia Neurological Medical History: Reports: Hx Migraine, Hx Seizures - only r/t low calcium. Denies: Hx Parkinson's Disease Endocrine Medical History: Reports: Hx Diabetes Mellitus Type 1, Hx Diabetes Mellitus Type 2 Renal/ Medical History: Reports: Hx End Stage Renal Disease - On hemodialysis --, Hx Hemodialysis, Hx Ovarian Cysts. Denies: Hx Peritoneal Dialysis Malignancy Medical History: GI Medical History: Reports: Hx Gastritis Musculoskeletal Medical History: Skin Medical History: Reports Hx Psoriasis Psychiatric Medical History: Reports: Hx Depression Traumatic Medical History: Infectious Medical History: Past Surgical History: Reports: Hx Appendectomy, Hx Cholecystectomy, Hx Vascular Surgery - Lt AV Fistula and graft; Rt AV fistula - Immunizations Immunizations up to date: Yes Hx Diphtheria, Pertussis, Tetanus Vaccination: Yes Hx Pneumococcal Vaccination: 08/22/11 Review of Systems - Review of Systems Notes: Constitutional: Negative for fever. HENT: Negative for sore throat. Eyes: Negative for visual changes. Cardiovascular: Negative for chest pain. Respiratory: + Shortness of breath Gastrointestinal: Negative for abdominal pain, vomiting or diarrhea. Genitourinary: Negative for dysuria. Musculoskeletal: Negative for back pain. Skin: Negative for rash. Neurological: +headache 10 point ROS negative except as marked above and in HPI. Physical Exam - Vital signs Vitals: Pulse Resp BP Pulse Ox 108 H 24 H 122/93 H 90 L 11/06/19 15:30 11/06/19 15:30 11/06/19 15:30 11/06/19 15:30 - Notes Notes: PHYSICAL EXAMINATION: Physical Exam: General: Obese female in moderate distress secondary to shortness of breath. HEENT: NC/AT, pupils equal round and reactive to light, MM moist,nares clear, Neck: supple, no adenopathy, no masses. Lungs: Bilateral coarse breath sounds with wheezing and crackles. CVS: Regular rate and rhythm no murmur gallop or rub Abdomen: Soft active nontender, no masses, no hepatosplenomegaly Ext: No edema clubbing or cyanosis. Neuro: Alert and responsive, moving all 4 extremities on command, cranial nerves intact. Skin: Intact no open lesions, no rash PSYCH: Normal mood, normal affect. Course - Vital Signs Vital signs: Temp Pulse Resp BP Pulse Ox 98.2 F 108 H 34 H 171/98 H 100 11/06/19 20:47 11/06/19 15:37 11/06/19 21:01 11/06/19 21:01 11/06/19 21:01 11/06/19 22:23 I discussed the patient's findings and presentation with her physician Dr. Hernandez, bilateral infiltrates, elevated WBC, respiratory failure and BiPAP use. 3 to admit the patient to the hospital and Dr. Kwon has agreed to dialyze the patient in the a.m. Explained to the patient that she is being admitted for care of her respiratory illness, IV antibiotics are being given and she will receive a dose of medication for pain. Patient is agreeable with this plan. - Laboratory Result Diagrams: 11/06/19 16:11 11/06/19 16:11 Laboratory results interpreted by me: 11/06/19 11/06/19 16:11 16:11 WBC 23.9 H RBC 3.60 L Hgb 9.7 L Hct 30.7 L MCHC 31.8 L RDW 17.2 H Seg Neuts % (Manual) 94 H Lymphocytes % (Manual) 5 L Monocytes % (Manual) 1 L Abs Neuts (Manual) 22.5 H Sodium 135.0 L Chloride 93 L Carbon Dioxide 17 L Anion Gap 25 H BUN 118 H Creatinine 12.50 H Est GFR ( Amer) 4 L Est GFR (MDRD) Non-Af 3 L Glucose 415 H* Calcium 7.7 L Direct Bilirubin 0.6 H Alkaline Phosphatase 145 H Total Protein 8.7 H 11/06/19 21:54 I have reviewed laboratory data and used this information for the treatment decisions regarding the patient. - EKG Interpretation by Me Rate: Tachycardia - 104, Additional EKG results interpreted by me: 11/06/19 21:57 Sinus tachycardia, rate 104, prolonged QT interval. No acute ST or T wave abnormalities noted. Critical Care Note - Critical Care Note Total time excluding time spent on procedures (mins): 60 - Critical care time sp ent obtaining history from patient or surrogate, discussions with consultants, development of treatment plan with patient or surrogate, evaluation of patient's response to treatment, examination of patient, ordering and performing treatments and interventions, ordering and review of laboratory studies, re- evaluation of patient's condition, ordering and review of radiographic studies and review of old charts Discharge - Discharge Clinical Impression: End-stage renal disease on hemodialysis Pneumonia Qualifiers: Pneumonia type: due to unspecified organism Laterality: bilateral Lung location: unspecified part of lung Qualified Code(s): J18.9 - Pneumonia, unspecified organism Leukocytosis Qualifiers: Leukocytosis type: bandemia Qualified Code(s): D72.825 - Bandemia Condition: Critical Disposition: ADMITTED INPATIENT Unit Admitted: [facility] Referrals: HILARY HERNANDEZ MD [Primary Care Provider] - Follow up as needed
[2019-11-06] MEDS ORDERED: IPRATROPIUM/ALBUTEROL 0.5-2.5 MG/3 ML AMPUL NEB ONE (21:45)
[2019-11-06] MEDS ORDERED: ONDANSETRON HCL INJ/PF 4 MG/2 ML SDV IV ONE (22:59)
[2019-11-06] MEDS ORDERED: HYDROMORPHONE HCL INJ/PF 2 MG/ML AMPULE IV ONE (23:00)
[2019-11-06 23:16] LABS: INTERNATIONAL RATION (INR) 1.13; PROTHROMBIN TIME 14.6 SEC (11.4-15.4)
[2019-11-06] MEDS: PIPERACILLIN SODIUM/TAZOBACTAM 3.375 GM in NORMAL SALINE 100 ML IV SCH (23:21)
--- NOTE | 2019-11-07 00:21 | EKG REPORT ---
SEVERITY:- ABNORMAL ECG - SINUS TACHYCARDIA PROLONGED QT INTERVAL : Confirmed by: Daniela Lemons 07-Nov-2019 00:20:14
[2019-11-07] MEDS: OXYCODONE-ACETAMINOPHEN 5-325 MG TABLET PO PRN ×4 (00:47→20:19)
[2019-11-07 01:56] LABS: HEMATOCRIT 29.8 % (36.0-47.0); HEMOGLOBIN 9.5 g/dL (12.0-15.5); MEAN CORPUSCULAR HEMOGLOBIN 27.2 pg (27.0-33.4); MEAN CORPUSCULAR VOLUME 85 fl (80-97); PLATELET COUNT 347 10^3/uL (150-450); RED CELL DISTRIBUTION WIDTH 17.3 % (11.5-14.0); WHITE BLOOD COUNT 17.8 10^3/uL (4.0-10.5)
[2019-11-07 02:05] LABS: VENOUS BLOOD BASE EXCESS -8.8 mmol/L; VENOUS BLOOD HCO3 18.5 mmol/L (20-32); VENOUS BLOOD PCO2 45.6 mmHg (35-63); VENOUS BLOOD PH 7.23 (7.30-7.42)
[2019-11-07 02:25] LABS: CALCIUM 7.7 mg/dL (8.4-10.2); POTASSIUM 5.7 mmol/L (3.6-5.0)
[2019-11-07] MEDS ORDERED: DEXTROSE 50%-WATER SYRINGE 12.5 GM/25 ML DOSE IV PRN (02:30)
[2019-11-07] MEDS ORDERED: DEXTROSE 50%-WATER SYRINGE 25 GM/50 ML DOSE IV PRN (02:30)
[2019-11-07] MEDS ORDERED: DEXTROSE 40% GEL 15 GM TUBE X 2 PO PRN (02:30)
[2019-11-07] MEDS ORDERED: DEXTROSE 40% GEL 15 GM TUBE PO PRN (02:30)
[2019-11-07] MEDS ORDERED: GLUCAGON,HUMAN RECOMB 1 MG INJ IM PRN (02:30)
[2019-11-07 02:39] LABS: CARBON DIOXIDE 15 mmol/L (22-30); CHLORIDE 94 mmol/L (98-107)
[2019-11-07 02:48] LABS: ANION GAP 28 (5-19); BLOOD UREA NITROGEN 127 mg/dL (7-20)
[2019-11-07 02:49] LABS: GLUCOSE 470 mg/dL (75-110)
[2019-11-07] MEDS ORDERED: INSULIN LISPRO 100 UNIT/ML 3 ML VIAL SUBCUT ONE ×2 (03:00→04:30)
[2019-11-07] MEDS: ONDANSETRON HCL INJ/PF 4 MG/2 ML SDV IV PRN ×2 (03:49→19:48)
[2019-11-07] MEDS ORDERED: EPOETIN ALFA-EPBX 10,000 UNIT in SYRINGE, DISPOSABLE, 1 EACH IV PRN (05:00)
[2019-11-07] MEDS: PIPERACILLIN SODIUM/TAZOBACTAM 3.375 GM in NORMAL SALINE 100 ML IV SCH (05:32)
[2019-11-07] MEDS: INSULIN LISPRO 100 UNIT/ML 3 ML VIAL SUBCUT SCH ×4 (07:43→21:29)
[2019-11-07] MEDS ORDERED: HEPARIN SOD (PORCINE) 1,000 UNIT/ML 10 ML VIAL IV PRN ×3 (09:08→21:00)
[2019-11-07] MEDS ORDERED: DIPHENHYDRAMINE HCL 50 MG/ML VIAL IV ONE ×2 (10:45→11:00)
--- NOTE | 2019-11-07 11:21 | PDOC CONSULTATION ---
Consultation Consult Date: 11/07/19 Provider Consulted: Lazarus OLIVARES History of Present Illness Admission Date/PCP: 11/06/19 22:28 HILARY HERNANDEZ MD History of Present Illness: ERICH GOODMAN is a 34 year old female with past medical history of CHF, ESRD on HD MWF, DM2, HTN, Severe noncompliance. She was on dialysis at the [facility] dialysis unit yesterday. She was SOB when she arrived but she agreed to start d ialysis. She was 7L over her dry weight at the time with crackles in the lower lobes of her lungs. About 30 minutes into dialysis she started to have chest pain that was a stabbing sensation and rated as an 7/10. She denied it radiating anywhere. She also at that point started to use accessory muscles to start breathing. Unfortunately due to an allergy to nitro, none could be given to see if that would improve her chest pain. At that time she was taken off dialysis and sent to the ER via EMS. In the ER a chest x-ray was done that showed bilateral infiltrates, she had an elevated white count also. She was started on antibiotics, placed on BIpap. With dialysis this morning she is able to be maintained on a NRB at 10L of oxygen. She is no longer using accessory muscles to breath. She is still complaining of SOB. Patient was undergoing dialysis with no complications. 6 to 7L was the target goal for removal if tolerated. Vitals were stable. Past Medical History Cardiac Medical History: Reports: Coronary Artery Disease, Heart Murmur, Hypertension-primary Pulmonary Medical History: Reports: Asthma, Pneumonia Neurological Medical History: Reports: Migraine, Seizures - only r/t low calcium Endocrine Medical History: Reports: Diabetes Mellitus Type 1, Diabetes Mellitus Type 2 Complications of Diabetes: Reports: Autonomic Neuropathy, Nephropathy, Retinopathy Renal/ Medical History: Reports: End Stage Renal Disease - On hemodialysis M-W-F, Hypocalcemia, Hyperkalemia, Hyperphosphatemia Malignancy Medical History: GI Medical History: Musculoskeltal Medical History: Skin Medical History: Reports: Psoriasis Psychiatric Medical History: Reports: Depression Infectious Medical History: Past Surgical History Past Surgical History: Reports: Appendectomy, Cholecystectomy, Dialysis Access Surgery AVF, Vascular Surgery - Lt AV Fistula and graft; Rt AV fistula Social History Smoking Status: Never Smoker Frequency of Alcohol Use: Occasional Hx Recreational Drug Use: No Drugs: None Hx Prescription Drug Abuse: No Family History Family History: Reviewed & Not Pertinent Parental Family History Reviewed: Yes Children Family History Reviewed: Yes Sibling(s) Family History Reviewed.: Yes Medication/Allergy Home Medications: Calcium Acetate [Phoslo 667 mg Capsule] 1,334 mg PO .BIDWITHSNACKS 09/25/19 Calcium Acetate [Phoslo 667 mg Capsule] 2,001 mg PO Q8 09/25/19 Furosemide [Lasix 80 mg Tablet] 80 mg PO Q8 09/25/19 Gabapentin Enacarbil [Horizant] 300 mg PO MOWEFR@1000 09/25/19 Insulin Detemir [Levemir] 35 unit SQ BID 09/25/19 Insulin Lispro [Humalog Insulin (Lispro) 100 unit/mL] 0 unit SUBCUT .SLD SCALE 09/25/19 Nifedipine [Procardia XL 60 mg Tablet] 60 mg PO Q12 09/25/19 Oxcarbazepine [Trileptal] 300 mg PO Q12 09/25/19 Oxycodone HCl/Acetaminophen [Percocet 7.5-325 mg Tablet] 1 each PO QIDP PRN 09/25/19 Paroxetine HCl [Paxil] 80 mg PO QPM 09/25/19 Sodium Polystyrene Sulfonate [Kayexalate 15 gm/60 ml Susp 60 ml] 30 gm PO SRIVASTAVA@1000 09/25/19 Amox Tr/Potassium Clavulanate [Augmentin 875-125 mg Tablet] 1 tab PO BID 10 Days tablet 10/15/19 Alprazolam 1 mg PO TID 10/25/19 Bumetanide [Bumex 2 mg Tablet] 2 mg PO BID 10/25/19 Metolazone 10 mg PO DAILY 10/25/19 Promethazine HCl [Phenergan 25 mg Tablet] 12.5 mg PO Q12HP PRN 10/25/19 Allergies/Adverse Reactions: aspirin [Aspirin] Allergy (Verified 11/05/19 12:07) Anaphylaxis ciprofloxacin [From Cipro] Allergy (Verified 11/05/19 12:07) Anaphylaxis clindamycin [Clindamycin] Allergy (Verified 11/05/19 12:07) hydrocodone [From Vicodin] Allergy (Verified 11/05/19 12:07) ibuprofen [From Motrin] Allergy (Verified 11/05/19 12:07) Anaphylaxis lidocaine [From Lidoderm] Allergy (Verified 11/05/19 12:07) Generalized rash tramadol HCl [From Ultram] Allergy (Verified 11/05/19 12:07) vancomycin [Vancomycin] Allergy (Verified 11/05/19 12:07) Shortness of Breath nitroglycerin [Nitroglycerin] Adverse Reaction (Intermediate, Verified 11/05/19 12:07) Joint pain Review of Systems Constitutional: PRESENT: weakness. ABSENT: chills, fever(s) Nose, Mouth, and Throat: ABSENT: headache(s) Cardiovascular: PRESENT: dyspnea on exertion, orthropnea. ABSENT: chest pain, palpitations Respiratory: PRESENT: cough, dyspnea, sputum Gastrointestinal: PRESENT: nausea. ABSENT: abdominal pain, constipation, diarrhea, vomiting Genitourinary: ABSENT: dysuria Neurological: ABSENT: dizziness, weakness Physical Exam Vital Signs: Temp Pulse Resp BP Pulse Ox 98.3 F 114 H 38 H 130/68 H 98 11/07/19 07:06 11/07/19 07:06 11/07/19 07:50 11/07/19 07:06 11/07/19 07:50 Intake & Output 11/06/19 11/07/19 11/08/19 06:59 06:59 06:59 Intake Total 100 100 Balance 100 100 Weight 111.6 kg General appearance: PRESENT: mild distress, morbidly obese. ABSENT: no acute distress Mouth exam: PRESENT: neck supple. ABSENT: dry mucosa Neck exam: ABSENT: JVD, tracheal deviation Respiratory exam: PRESENT: crackles, rales. ABSENT: accessory muscle use, clear to auscultation freddy, rhonchi, wheezes Cardiovascular exam: PRESENT: RRR, +S1, +S2 GI/Abdominal exam: PRESENT: soft. ABSENT: tenderness Extremities exam: PRESENT: pedal edema, +1 edema. ABSENT: tenderness Musculoskeletal exam: PRESENT: normal inspection. ABSENT: tenderness Neurological exam: PRESENT: alert, awake, oriented to person, oriented to place, oriented to time, oriented to situation Psychiatric exam: PRESENT: normal mood, unusual affect Skin exam: PRESENT: dry, intact, warm. ABSENT: cyanosis Results Laboratory Results: 11/07/19 01:39 11/07/19 01:39 11/06/19 11/06/19 11/07/19 16:11 16:11 01:39 WBC 23.9 H 17.8 H RBC 3.60 L 3.50 L Hgb 9.7 L 9.5 L Hct 30.7 L 29.8 L MCV 85 85 MCH 27.1 27.2 MCHC 31.8 L 32.0 RDW 17.2 H 17.3 H Plt Count 336 347 Seg Neutrophils % Not Reportable VBG pH VBG pCO2 VBG HCO3 VBG Base Excess Sodium 135.0 L Potassium 5.0 Chloride 93 L Carbon Dioxide 17 L Anion Gap 25 H BUN 118 H Creatinine 12.50 H Est GFR ( Amer) 4 L Glucose 415 H* Calcium 7.7 L Total Bilirubin 0.7 AST 31 Alkaline Phosphatase 145 H Total Protein 8.7 H Albumin 4.7 11/07/19 11/07/19 01:39 01:39 WBC RBC Hgb Hct MCV MCH MCHC RDW Plt Count Seg Neutrophils % VBG pH 7.23 L VBG pCO2 45.6 VBG HCO3 18.5 L VBG Base Excess -8.8 Sodium 136.6 L Potassium 5.7 H Chloride 94 L Carbon Dioxide 15 L Anion Gap 28 H BUN 127 H Creatinine 13.56 H Est GFR ( Amer) 4 L Glucose 470 H* Calcium 7.7 L Total Bilirubin AST Alkaline Phosphatase Total Protein Albumin 11/06/19 16:11 Troponin I 0.026 Impressions: Chest X-Ray 11/06/19 15:36 IMPRESSION: NO CHANGE IN APPEARANCE OF THE CHEST. Assessment & Plan - Diagnosis (1) End-stage renal disease on hemodialysis Plan: Patients labs, orders and vitals were reviewed with her treating dialysis nurse. Vitals were stable. Only complaint was SOB. Looking to removed 6 to 7L as tole rated. (2) Pneumonia Qualifiers: Pneumonia type: due to unspecified organism Laterality: bilateral Lung location: unspecified part of lung Qualified Code(s): J18.9 - Pneumonia, unspecified organism Plan: Adjusting antibiotics to be properly dosed for HD, antibiotic choice per primary. (3) Acute diastolic (congestive) heart failure Plan: removing 6 to 7L of fluid with dialysis. (4) Anemia Qualifiers: Other causes of anemia: chronic disease, kidney Plan: giving 10,000 units of retacrit with dialysis. (5) Hyperkalemia Plan: removing potassium with dialysis. Patient continues to be noncompliant with her diet. (6) Hyperphosphatemia Plan: will look to get levels and add calcium acetate 2 with meals (7) Hypertension Qualifiers: Hypertension type: unspecified Qualified Code(s): I10 - Essential (primary) hypertension Plan: look to be improving. Will reassess once more fluid is removed from her. (8) Hypocalcemia Plan: will add a calcium supplement (9) Leukocytosis Qualifiers: Leukocytosis type: bandemia Qualified Code(s): D72.825 - Bandemia
[2019-11-07] MEDS: CALCIUM ACETATE 667 MG CAPSULE PO SCH ×2 (14:03→17:13)
[2019-11-07] MEDS: CALCIUM CARBONATE 500 MG TABLET PO SCH (14:16)
[2019-11-07] MEDS: BUSPIRONE HCL 10 MG TABLET PO SCH (15:30)
[2019-11-07] MEDS ORDERED: METOPROLOL TARTRATE PF/INJ 5 MG/5 ML SDV IV ONE (20:58)
[2019-11-07] MEDS ORDERED: ASPIRIN 81 MG TABLET, CHEWABLE PO ONE (21:00)
[2019-11-07] MEDS ORDERED: CLOPIDOGREL BISULFATE 300 MG TABLET PO ONE (21:00)
[2019-11-07] MEDS: METOPROLOL TARTRATE PF/INJ 5 MG/5 ML SDV IV SCH ×2 (21:09→21:30)
--- NOTE | 2019-11-07 21:12 | PDOC H&P ---
History of Present Illness Admission Date/PCP: 11/06/19 22:28 HILARY HERNANDEZ MD History of Present Illness: ERICH GOODMAN is a 34 year old female,She has end-stage renal disease on maint enance hemodialysis, she came to the emergency room last night for evaluation of shortness of breath, chest x-ray was consistent with pulmonary edema. This has been a recurrent problem for this patient, she typically present with acute pulmonary edema.She has had multiple hospital admission for the same problem, she was just recently discharged from this hospital for the same problem, she would need immediate hemodialysis, the breathing was supported with noninvasive positive pressure ventilation, BiPAP.She was dialyzed today, she developed chest pain, EKG demonstrated sinus tachycardia with ST segment deviation Past Medical History Cardiac Medical History: Reports: Congestive Heart Failure, Coronary Artery Disease, Hypertension, Heart Murmur Pulmonary Medical History: Reports: Asthma, Pneumonia Neurological Medical History: Reports: Migraine, Seizures - only r/t low calcium Endocrine Medical History: Reports: Diabetes Mellitus Type 1 Renal/ Medical History: Reports: End Stage Renal Disease - On hemodialysis M-W- Malignancy Medical History: GI Medical History: Musculoskeltal Medical History: Skin Medical History: Reports: Psoriasis Psychiatric Medical History: Reports: Depression Hematology: Reports: Anemia Infectious Medical History: Past Surgical History Past Surgical History: Reports: Appendectomy, Cholecystectomy, Vascular Surgery - Lt AV Fistula and graft; Rt AV fistula Social History Smoking Status: Never Smoker Frequency of Alcohol Use: Occasional Hx Recreational Drug Use: No Drugs: None Hx Prescription Drug Abuse: No Family History Family History: Reviewed & Not Pertinent Parental Family History Reviewed: Yes Children Family History Reviewed: Yes Sibling(s) Family History Reviewed.: Yes Medication/Allergy Home Medications: Calcium Acetate [Phoslo 667 mg Capsule] 1,334 mg PO .BIDWITHSNACKS 09/25/19 Calcium Acetate [Phoslo 667 mg Capsule] 2,001 mg PO Q8 09/25/19 Furosemide [Lasix 80 mg Tablet] 80 mg PO Q8 09/25/19 Gabapentin Enacarbil [Horizant] 300 mg PO MOWEFR@1000 09/25/19 Insulin Detemir [Levemir] 35 unit SQ BID 09/25/19 Insulin Lispro [Humalog Insulin (Lispro) 100 unit/mL] 0 unit SUBCUT .SLD SCALE 09/25/19 Nifedipine [Procardia XL 60 mg Tablet] 60 mg PO Q12 09/25/19 Oxcarbazepine [Trileptal] 300 mg PO Q12 09/25/19 Oxycodone HCl/Acetaminophen [Percocet 7.5-325 mg Tablet] 1 each PO QIDP PRN 09/25/19 Paroxetine HCl [Paxil] 80 mg PO QPM 09/25/19 Sodium Polystyrene Sulfonate [Kayexalate 15 gm/60 ml Susp 60 ml] 30 gm PO SRIVASTAVA@1000 09/25/19 Amox Tr/Potassium Clavulanate [Augmentin 875-125 mg Tablet] 1 tab PO BID 10 Days tablet 10/15/19 Alprazolam 1 mg PO TID 10/25/19 Bumetanide [Bumex 2 mg Tablet] 2 mg PO BID 10/25/19 Metolazone 10 mg PO DAILY 10/25/19 Promethazine HCl [Phenergan 25 mg Tablet] 12.5 mg PO Q12HP PRN 10/25/19 Allergies/Adverse Reactions: aspirin [Aspirin] Allergy (Verified 11/05/19 12:07) Anaphylaxis ciprofloxacin [From Cipro] Allergy (Verified 11/05/19 12:07) Anaphylaxis clindamycin [Clindamycin] Allergy (Verified 11/05/19 12:07) hydrocodone [From Vicodin] Allergy (Verified 11/05/19 12:07) ibuprofen [From Motrin] Allergy (Verified 11/05/19 12:07) Anaphylaxis lidocaine [From Lidoderm] Allergy (Verified 11/05/19 12:07) Generalized rash tramadol HCl [From Ultram] Allergy (Verified 11/05/19 12:07) vancomycin [Vancomycin] Allergy (Verified 11/05/19 12:07) Shortness of Breath nitroglycerin [Nitroglycerin] Adverse Reaction (Intermediate, Verified 11/05/19 12:07) Joint pain Review of Systems Constitutional: PRESENT: fatigue, weakness Eyes: ABSENT: visual disturbances Ears: ABSENT: hearing changes Cardiovascular: PRESENT: chest pain, dyspnea on exertion Respiratory: PRESENT: cough, dyspnea, sputum Gastrointestinal: ABSENT: abdominal pain, constipation, diarrhea, hematemesis, hematochezia, nausea, vomiting Genitourinary: ABSENT: dysuria, hematuria Musculoskeletal: ABSENT: joint swelling Integumentary: ABSENT: rash, wounds Neurological: ABSENT: abnormal gait, abnormal speech, confusion, dizziness, focal weakness, syncope Psychiatric: ABSENT: anxiety, depression, homidical ideation, suicidal ideation Endocrine: ABSENT: cold intolerance, heat intolerance, menstrual abnormalities, polydipsia, polyuria Hematologic/Lymphatic: ABSENT: easy bleeding, easy bruising, lymphadenopathy Physical Exam Vital Signs: Temp Pulse Resp BP Pulse Ox 99.4 F 112 H 33 H 101/56 L 94 11/07/19 14:55 11/07/19 19:14 11/07/19 19:14 11/07/19 19:14 11/07/19 19:14 Intake & Output 11/06/19 11/07/19 11/08/19 06:59 06:59 06:59 Intake Total 100 200 Output Total 5100 Balance 100 -4900 Weight 111.6 kg General appearance: PRESENT: mild distress Eye exam: PRESENT: conjunctiva pink, EOMI, PERRLA Ear exam: PRESENT: normal external ear exam Mouth exam: PRESENT: moist, tongue midline Neck exam: PRESENT: full ROM Respiratory exam: PRESENT: clear to auscultation freddy Cardiovascular exam: PRESENT: RRR, +S1, +S2 Vascular exam: PRESENT: normal capillary refill GI/Abdominal exam: PRESENT: normal bowel sounds, soft Rectal exam: PRESENT: deferred Neurological exam: PRESENT: alert, CN II-XII grossly intact Psychiatric exam: PRESENT: appropriate affect, normal mood. ABSENT: homicidal ideation, suicidal ideation Skin exam: PRESENT: dry, intact, warm. ABSENT: cyanosis, rash Results Laboratory Results: 11/07/19 01:39 11/07/19 01:39 11/07/19 11/07/19 11/07/19 01:39 01:39 01:39 WBC 17.8 H RBC 3.50 L Hgb 9.5 L Hct 29.8 L MCV 85 MCH 27.2 MCHC 32.0 RDW 17.3 H Plt Count 347 VBG pH 7.23 L VBG pCO2 45.6 VBG HCO3 18.5 L VBG Base Excess -8.8 Sodium 136.6 L Potassium 5.7 H Chloride 94 L Carbon Dioxide 15 L Anion Gap 28 H BUN 127 H Creatinine 13.56 H Est GFR ( Amer) 4 L Glucose 470 H* Calcium 7.7 L 11/06/19 16:11 Troponin I 0.026 Impressions: Chest X-Ray 11/06/19 15:36 IMPRESSION: NO CHANGE IN APPEARANCE OF THE CHEST. Assessment & Plan - Diagnosis (1) Acute hypoxemic respiratory failure Is this a current diagnosis for this admission?: Yes Plan: This is probably from the pulmonary edema, she is presently on BiPAP (2) Acute pulmonary edema Is this a current diagnosis for this admission?: Yes (3) ESRD (end stage renal disease) on dialysis Is this a current diagnosis for this admission?: Yes Plan: Per nephrology (4) End stage renal disease on dialysis due to type 1 diabetes mellitus Is this a current diagnosis for this admission?: Yes (5) DM (diabetes mellitus), type 1 with hyperosmolarity Qualifiers: Diabetes mellitus complication detail: without coma Qualified Code(s): E10.69 - Type 1 diabetes mellitus with other specified complication Is this a current diagnosis for this admission?: Yes
[2019-11-07] MEDS: HEPARIN SOD (PORCINE) 1,000 UNIT/ML 10 ML VIAL IV PRN (21:41)
[2019-11-07] MEDS ORDERED: CALCIUM ACETATE 667 MG CAPSULE PO SCH (21:45)
[2019-11-07] MEDS: HEPARIN SODIUM,PORCINE/D5W 25,000 UNIT/250 ML RTUINJ IV PRN (21:47)
[2019-11-07] MEDS ORDERED: MORPHINE SULFATE 10 MG/ML INJ IV PRN (21:59)
[2019-11-07] MEDS ORDERED: PIPERACILLIN SODIUM/TAZOBACTAM 2.25 GM in NORMAL SALINE 100 ML IV SCH (22:00)
[2019-11-07] MEDS ORDERED: (PENDING PHARMACY ID) (Oxcarbazepine [Trileptal] 300 MG) PO SCH (22:00)
[2019-11-07 22:04] LABS: CREATINE KINASE MB 14.5 ng/mL (<4.55)
[2019-11-07 22:24] LABS: TROPONIN I 2.23 ng/mL
--- NOTE | 2019-11-07 22:25 | PDOC CONSULTATION ---
Consultation Consult Date: 11/07/19 Attending physician:: HILARY HERNANDEZ Provider Consulted: CHAPARRO MURRIETA Consult reason:: Chest pain, abnormal EKG History of Present Illness Admission Date/PCP: 11/06/19 22:28 HILARY HERNANDEZ MD Patient complains of: Chest pain, dyspnea History of Present Illness: ERICH GOODMAN is a 34 year old female With end-stage renal disease on hemodialysis with high systemic hypertension. She is noted to be severely noncompliant. Recent admission to the dialysis unit for volume overload and emergent dialysis. However during the treatment she developed chest pain and subsequently sent to the emergency room. Since admission to the hospital she has been complaining of chest pain. EKG performed just prior to the evaluation showed some concern of ST elevation and cardiology was consulted. At the time of my evaluation patient is on a nonrebreather. History is difficult to obtain. Patient does not mention prior history of coronary artery disease. She reports allergies to aspirin as well as nitroglycerin. Allergies nitroglycerin includes respiratory difficulty as well as headache. Further history is limited due to respiratory distress. Past Medical History Cardiac Medical History: Reports: Congestive Heart Failure, Coronary Artery Disease, Hypertension, Heart Murmur Pulmonary Medical History: Reports: Asthma, Pneumonia Neurological Medical History: Reports: Migraine, Seizures - only r/t low calcium Endocrine Medical History: Reports: Diabetes Mellitus Type 1, Diabetes Mellitus Type 2 Renal/ Medical History: Reports: End Stage Renal Disease - On hemodialysis M-W-F Malignancy Medical History: GI Medical History: Musculoskeltal Medical History: Skin Medical History: Reports: Psoriasis Psychiatric Medical History: Reports: Depression Hematology: Reports: Anemia Infectious Medical History: Past Surgical History Past Surgical History: Reports: Appendectomy, Cholecystectomy, Vascular Surgery - Lt AV Fistula and graft; Rt AV fistula Social History Smoking Status: Never Smoker Frequency of Alcohol Use: Occasional Hx Recreational Drug Use: No Drugs: None Hx Prescription Drug Abuse: No Family History Family History: Reviewed & Not Pertinent Parental Family History Reviewed: No - Unable to obtain detailed history due to patient's respiratory distress. Children Family History Reviewed: NA Sibling(s) Family History Reviewed.: NA Medication/Allergy Home Medications: RX: Calcium Acetate [Phoslo 667 mg Capsule] 1,334 mg PO .BIDWITHSNACKS 09/25/19 RX: Calcium Acetate [Phoslo 667 mg Capsule] 2,001 mg PO Q8 09/25/19 RX: Furosemide [Lasix 80 mg Tablet] 80 mg PO Q8 09/25/19 RX: Gabapentin Enacarbil [Horizant] 300 mg PO MOWEFR@1000 09/25/19 RX: Insulin Detemir [Levemir] 35 unit SQ BID 09/25/19 RX: Insulin Lispro [Humalog Insulin (Lispro) 100 unit/mL] 0 unit SUBCUT .SLD SCALE 09/25/19 RX: Nifedipine [Procardia XL 60 mg Tablet] 60 mg PO Q12 09/25/19 RX: Oxcarbazepine [Trileptal] 300 mg PO Q12 09/25/19 RX: Oxycodone HCl/Acetaminophen [Percocet 7.5-325 mg Tablet] 1 each PO QIDP PRN 09/25/19 RX: Paroxetine HCl [Paxil] 80 mg PO QPM 09/25/19 RX: Sodium Polystyrene Sulfonate [Kayexalate 15 gm/60 ml Susp 60 ml] 30 gm PO SRIVASTAVA@1000 09/25/19 RX: Amox Tr/Potassium Clavulanate [Augmentin 875-125 mg Tablet] 1 tab PO BID 10 Days tablet 10/15/19 RX: Alprazolam 1 mg PO TID 10/25/19 RX: Bumetanide [Bumex 2 mg Tablet] 2 mg PO BID 10/25/19 RX: Metolazone 10 mg PO DAILY 10/25/19 RX: Promethazine HCl [Phenergan 25 mg Tablet] 12.5 mg PO Q12HP PRN 10/25/19 Allergies/Adverse Reactions: aspirin [Aspirin] Allergy (Verified 11/05/19 12:07) Anaphylaxis ciprofloxacin [From Cipro] Allergy (Verified 11/05/19 12:07) Anaphylaxis clindamycin [Clindamycin] Allergy (Verified 11/05/19 12:07) hydrocodone [From Vicodin] Allergy (Verified 11/05/19 12:07) ibuprofen [From Motrin] Allergy (Verified 11/05/19 12:07) Anaphylaxis lidocaine [From Lidoderm] Allergy (Verified 11/05/19 12:07) Generalized rash tramadol HCl [From Ultram] Allergy (Verified 11/05/19 12:07) vancomycin [Vancomycin] Allergy (Verified 11/05/19 12:07) Shortness of Breath nitroglycerin [Nitroglycerin] Adverse Reaction (Intermediate, Verified 11/05/19 12:07) Joint pain Review of Systems ROS unobtainable: Other - Due to respiratory distress and patient being on BiPAP. Admits to chest pain. Cardiovascular: PRESENT: chest pain Physical Exam Vital Signs: Temp Pulse Resp BP Pulse Ox 98.4 F 111 H 30 H 119/76 99 11/07/19 20:32 11/07/19 20:32 11/07/19 20:32 11/07/19 20:32 11/07/19 20:32 Intake & Output 11/06/19 11/07/19 11/08/19 06:59 06:59 06:59 Intake Total 100 200 Output Total 5100 Balance 100 -4900 Weight 111.6 kg General appearance: PRESENT: morbidly obese Head exam: PRESENT: atraumatic, normocephalic Eye exam: PRESENT: EOMI Ear exam: PRESENT: normal external ear exam Mouth exam: PRESENT: moist Neck exam: PRESENT: JVD Respiratory exam: PRESENT: accessory muscle use, crackles, decreased breath sounds, rales, tachypnea Cardiovascular exam: PRESENT: RRR, +S1, +S2 Pulses: PRESENT: other - AV fistula right upper extremity Vascular exam: PRESENT: other GI/Abdominal exam: PRESENT: soft Rectal exam: PRESENT: deferred Musculoskeletal exam: PRESENT: normal inspection Neurological exam: PRESENT: alert, oriented to person, oriented to time Results Laboratory Results: 11/07/19 01:39 11/07/19 01:39 11/07/19 11/07/19 11/07/19 01:39 01:39 01:39 WBC 17.8 H RBC 3.50 L Hgb 9.5 L Hct 29.8 L MCV 85 MCH 27.2 MCHC 32.0 RDW 17.3 H Plt Count 347 VBG pH 7.23 L VBG pCO2 45.6 VBG HCO3 18.5 L VBG Base Excess -8.8 Sodium 136.6 L Potassium 5.7 H Chloride 94 L Carbon Dioxide 15 L Anion Gap 28 H BUN 127 H Creatinine 13.56 H Est GFR ( Amer) 4 L Glucose 470 H* Calcium 7.7 L 11/06/19 11/07/19 16:11 21:14 Creatine Kinase 238 H Troponin I 0.026 EKG Comments: Twelve-lead EKG 11/07/2019 2000 hrs. Sinus tachycardia 111 bpm, PVC, minimal ST depression in 1 and aVL. There is also some ST depression in 2 Impressions: Chest X-Ray 11/06/19 15:36 IMPRESSION: NO CHANGE IN APPEARANCE OF THE CHEST. Status: Image reviewed by me - Chest x-ray shows cardiomegaly and severe pulmonary congestion Assessment & Plan - Diagnosis (1) ESRD (end stage renal disease) on dialysis Is this a current diagnosis for this admission?: Yes Plan: Patient has been noncompliant at dialysis. Significantly volume overloaded. Will require treatment very quickly. She has impending respiratory failure and is on nonrebreather. Will recommend volume removal. (2) Volume overload Qualifiers: Hypervolemia type: unspecified Qualified Code(s): E87.70 - Fluid overload, unspecified (3) Hypertension Qualifiers: Is this a current diagnosis for this admission?: Yes Plan: Continue therapy for systemic hypertension Dialysis will help (4) Acute pulmonary edema Is this a current diagnosis for this admission?: Yes Plan: Will require dialysis. (5) Chest pain Qualifiers: Chest pain type: unspecified Qualified Code(s): R07.9 - Chest pain, unspecified Is this a current diagnosis for this admission?: Yes Plan: Patient complains of chest pain. EKG does show some changes of ST depression in the lateral leads but is not completely localizing as there is some ST d epression in lead II as well. This may be a reflection of hypoxia and volume overload. However due to his end-stage renal disease risk of having coexistent coronary artery disease is high and it would be prudent to treat her medically with intravenous heparin, antiplatelet agent and treatment of hypertension as well as beta-waylon. Trend troponins. Intravenous heparin therapy can be discontinued based on clinical progress and trend in troponins. I suspect EKG changes ought to resolve with correction of hypoxia and volume overload. - Notes Notes: EKG shows ST depression and is probably a reflection of hypoxia. Patient is volume overloaded with significant pulmonary edema and will merit from hemodialysis. She continues to retain fluid. We will trend troponins Initiate intravenous heparin infusion-ACS protocol Patient has already received clopidogrel load. Morphine 2 mg IV every 4 hours for relief of pulmonary vascular congestion as well as pain. Oxygen by nonrebreather. Watch respiratory status Hemodialysis The above care plan was discussed with the nurse taking care of the patient as well as Dr. Hernandez
--- NOTE | 2019-11-07 22:27 | EKG REPORT ---
SEVERITY:- ABNORMAL ECG - SINUS TACHYCARDIA REPOL ABNRM SUGGESTS ISCHEMIA, LATERAL LEADS BORDERLINE PROLONGED QT INTERVAL : Confirmed by: Daniela Lemons 07-Nov-2019 22:27:03
[2019-11-07] MEDS ORDERED: OXYCODONE-ACETAMINOPHEN 5-325 MG TABLET PO PRN (22:45)
[2019-11-07] MEDS: FUROSEMIDE 80 MG TABLET PO SCH (23:24)
[2019-11-08] MEDS: OXYCODONE-ACETAMINOPHEN 5-325 MG TABLET PO PRN (00:48)
[2019-11-08 04:19] LABS: ABSOLUTE BASOPHILS # (AUTO) 0.1 10^3/uL (0.0-0.2); ABSOLUTE LYMPHOCYTES (AUTO) 2.4 10^3/uL (0.5-4.7); ABSOLUTE MONOCYTES (AUTO) 0.7 10^3/uL (0.1-1.4); ABSOLUTE NEUT (AUTO) 14.9 10^3/uL (1.7-8.2); BASOPHILS % (AUTO) 0.4 % (0-2); EOSINOPHILS % (AUTO) 0.2 % (0-6); HEMATOCRIT 28.7 % (36.0-47.0); LYMPHOCYTES % (AUTO) 13.3 % (13-45); MEAN CORPUSCULAR HEMOGLOBIN 26.8 pg (27.0-33.4); MEAN CORPUSCULAR HGB CONC 31.4 g/dL (32.0-36.0); MEAN CORPUSCULAR VOLUME 86 fl (80-97); MONOCYTES % (AUTO) 4.1 % (3-13); PLATELET COUNT 350 10^3/uL (150-450); RED BLOOD COUNT 3.35 10^6/uL (3.72-5.28); RED CELL DISTRIBUTION WIDTH 17.5 % (11.5-14.0); TOTAL CELLS COUNTED % (AUTO) 100 %; WHITE BLOOD COUNT 18.1 10^3/uL (4.0-10.5)
[2019-11-08 04:56] LABS: BLOOD UREA NITROGEN 70 mg/dL (7-20); CALCIUM 7.9 mg/dL (8.4-10.2); CARBON DIOXIDE 14 mmol/L (22-30); CHLORIDE 90 mmol/L (98-107); CREATINE KINASE 466 U/L (30-135); GLUCOSE 330 mg/dL (75-110); PHOSPHORUS 11.9 mg/dL (2.5-4.5); POTASSIUM 5.9 mmol/L (3.6-5.0)
[2019-11-08] MEDS: HEPARIN SOD (PORCINE) 1,000 UNIT/ML 10 ML VIAL IV PRN ×2 (04:58→11:45)
[2019-11-08 05:02] LABS: ANION GAP 34 (5-19)
[2019-11-08] MEDS: FUROSEMIDE 80 MG TABLET PO SCH (05:02)
[2019-11-08] MEDS ORDERED: INSULIN LISPRO 100 UNIT/ML 3 ML VIAL SUBCUT ONE (05:30)
[2019-11-08] MEDS ORDERED: PIPERACILLIN SODIUM/TAZOBACTAM 2.25 GM in NORMAL SALINE 100 ML IV SCH (06:00)
[2019-11-08] MEDS: INSULIN LISPRO 100 UNIT/ML 3 ML VIAL SUBCUT SCH ×2 (08:24→11:52)
[2019-11-08] MEDS: ONDANSETRON HCL INJ/PF 4 MG/2 ML SDV IV PRN (08:24)
[2019-11-08 08:31] VITALS: BP 97/56
[2019-11-08 08:42] LABS: CREATINE KINASE MB 33.2 ng/mL (<4.55)
[2019-11-08 08:48] LABS: TROPONIN I 10.6 ng/mL
[2019-11-08] MEDS: CALCIUM CARBONATE 500 MG TABLET PO SCH (09:33)
[2019-11-08] MEDS: BUSPIRONE HCL 10 MG TABLET PO SCH (09:34)
[2019-11-08] MEDS ORDERED: NIFEDIPINE 30 MG TAB.ER.24 PO SCH (10:00)
[2019-11-08] MEDS ORDERED: BUMETANIDE 1 MG TABLET PO SCH (10:00)
[2019-11-08] MEDS ORDERED: GABAPENTIN 300 MG CAPSULE PO SCH (10:00)
[2019-11-08] MEDS ORDERED: CLOPIDOGREL BISULFATE 75 MG TABLET PO SCH (10:00)
[2019-11-08] MEDS ORDERED: INSULIN GLARGINE,HUM.REC.ANLOG 1,000 UNIT/10 ML VIAL SUBCUT SCH (10:00)
[2019-11-08] MEDS ORDERED: OXCARBAZEPINE 150 MG TABLET PO SCH (11:00)
--- NOTE | 2019-11-08 11:21 | PDOC TRANSFER SUMMARY ---
General Admission Date/PCP: 11/06/19 22:28 HILARY HERNANDEZ MD Transfer Date: 11/08/19 Accepting Facility: [facility] - Transfer Diagnosis (1) Acute hypoxemic respiratory failure Is this a current diagnosis for this admission?: Yes (2) Acute pulmonary edema Is this a current diagnosis for this admission?: Yes (3) ESRD (end stage renal disease) on dialysis Is this a current diagnosis for this admission?: Yes (5) Diabetes mellitus type 1 Is this a current diagnosis for this admission?: Yes - Transfer Medications Home Medications: Calcium Acetate [Phoslo 667 mg Capsule] 1,334 mg PO .BIDWITHSNACKS 09/25/19 Calcium Acetate [Phoslo 667 mg Capsule] 2,001 mg PO Q8 09/25/19 Furosemide [Lasix 80 mg Tablet] 80 mg PO Q8 09/25/19 Gabapentin Enacarbil [Horizant] 300 mg PO MOWEFR@1000 09/25/19 Insulin Detemir [Levemir] 35 unit SQ BID 09/25/19 Insulin Lispro [Humalog Insulin (Lispro) 100 unit/mL] 0 unit SUBCUT .SLD SCALE 09/25/19 Nifedipine [Procardia XL 60 mg Tablet] 60 mg PO Q12 09/25/19 Oxcarbazepine [Trileptal] 300 mg PO Q12 09/25/19 Oxycodone HCl/Acetaminophen [Percocet 7.5-325 mg Tablet] 1 each PO QIDP PRN 03/10 Paroxetine HCl [Paxil] 80 mg PO QPM 09/25/19 Sodium Polystyrene Sulfonate [Kayexalate 15 gm/60 ml Susp 60 ml] 30 gm PO SRIVASTAVA@1000 09/25/19 Alprazolam 1 mg PO TID 10/25/19 Bumetanide [Bumex 2 mg Tablet] 2 mg PO BID 10/25/19 Metolazone 10 mg PO DAILY 10/25/19 Promethazine HCl [Phenergan 25 mg Tablet] 12.5 mg PO Q12HP PRN 10/25/19 Transfer Medications: Current Medications Bumetanide (Bumex 1 Mg Tablet) 2 mg PO BID [facility] Stop: 12/08/19 09:59 Last Admin: 11/08/19 09:09 Dose: Not Given Documented by: Buspirone HCl (Buspar 10 Mg Tablet) 10 mg PO BID [facility] Stop: 12/07/19 15:59 Last Admin: 11/08/19 09:34 Dose: 10 mg Documented by: Calcium Acetate (Phoslo 667 Mg Capsule) 1,334 mg PO .BIDWITHSNACKS [facility] Stop: 12/07/19 21:44 Calcium Carbonate (Os-Clarence 500 Mg Tablet (Oyster-Shell)) 500 mg PO DAILY [facility] Stop: 12/07/19 11:29 Last Admin: 11/08/19 09:33 Dose: 500 mg Documented by: Clopidogrel Bisulfate (Plavix 75 Mg Tablet) 75 mg PO DAILY [facility] Stop: 12/08/19 09:59 Last Admin: 11/08/19 10:34 Dose: 75 mg Documented by: Dextrose (Dextrose Inj 50% Syringe (25 Gm/50 Ml)) 12.5 gm IV PRN PRN; Protocol PRN Reason: FOR BG 50-69 IN ALERT PATIENT Stop: 12/07/19 02:29 Dextrose (Dextrose Inj 50% Syringe (25 Gm/50 Ml)) 25 gm IV PRN PRN; Protocol Stop: 12/07/19 02:29 Furosemide (Lasix 80 Mg Tablet) 80 mg PO Q8 [facility] Stop: 12/07/19 21:59 Last Admin: 11/08/19 05:02 Dose: Not Given Documented by: Gabapentin (Neurontin 300 Mg Capsule) 300 mg PO MoWeFr [facility] Stop: 12/08/19 09:59 Last Admin: 11/08/19 09:33 Dose: 300 mg Documented by: Glucagon (Glucagen Inj 1 Mg Vial) 1 mg IM PRN PRN; Protocol PRN Reason: EVALUATE FOR BG < 70 Stop: 12/07/19 02:29 Glucose (Glutose 40% Gel 15 Gm Tube) 15 gm PO PRN PRN; Protocol PRN Reason: FOR BG 50-69 IN ALERT PATIENT Stop: 12/07/19 02:29 Glucose (Glutose 40% Gel 15 Gm Tube) 30 gm PO PRN PRN; Protocol PRN Reason: FOR BG < 50 IN ALERT PATIENT Stop: 12/07/19 02:29 Heparin Sodium (Porcine) (Heparin Inj 1,000 Unit/Ml 10 Ml Vial) 4,000 unit IV .BOLUS PER PROTOCOL PRN; Protocol PRN Reason: RESPOND TO aPTT VALUES Stop: 12/07/19 20:59 Last Admin: 11/08/19 04:58 Dose: 3,300 units Documented by: Heparin Sodium/Dextrose (Heparin Rtu 25,000 Unit/250 Ml D5w Premix) 25,000 unit in 250 mls @ 0 mls/hr IV CONTINUOUS PRN; Protocol PRN Reason: THIS MED IS NOT "PRN" Stop: 12/07/19 20:59 Last Titration: 11/08/19 05:34 Dose: 12.23 mls/hr, 12.23 mls/hr Documented by: Piperacillin Sod/Tazobactam (Sod 2.25 gm/ Sodium Chloride) 100 mls @ 200 mls/hr IV Q12A [facility] Stop: 11/14/19 21:59 Last Infusion: 11/08/19 08:35 Dose: Infused Documented by: Insulin Glargine (Lantus Insulin 100 Unit/1 Ml 10 Ml) 35 unit SUBCUT BID [facility] Stop: 12/08/19 09:59 Last Admin: 11/08/19 09:34 Dose: 35 unit Documented by: Insulin Human Lispro (Humalog Insulin 100 Unit/1 Ml 3 Ml Vial) 0 - 12 unit SUBCUT ACHS [facility]; Protocol Stop: 12/07/19 07:59 Last Admin: 11/08/19 08:24 Dose: 6 unit Documented by: Morphine Sulfate (Morphine 10 Mg/Ml Inj) 2 mg IV Q4HP PRN PRN Reason: PAIN Stop: 11/14/19 21:58 Last Admin: 11/07/19 22:30 Dose: 2 mg Documented by: Nifedipine (Procardia Xl 30 Mg Tablet) 60 mg PO Q12 [facility] Stop: 12/08/19 09:59 Last Admin: 11/08/19 09:09 Dose: Not Given Documented by: Ondansetron HCl (Zofran Inj/Pf 4 Mg/2 Ml Sdv) 4 mg IV Q4HP PRN PRN Reason: NAUSEA Stop: 12/07/19 03:43 Last Admin: 11/08/19 08:24 Dose: 4 mg Documented by: Oxcarbazepine (Trileptal 150 Mg Tablet) 300 mg PO Q12 [facility] Stop: 12/08/19 10:59 Oxycodone/Acetaminophen (Percocet 5-325 Mg Tablet) 1 tab PO Q4HP PRN PRN Reason: PAIN Stop: 12/24/19 00:37 Last Admin: 11/08/19 00:48 Dose: 1 tab Documented by: Oxycodone/Acetaminophen (Percocet 5-325 Mg Tablet) 1 tab PO QIDP PRN PRN Reason: SEVERE PAIN Stop: 11/14/19 22:44 Sodium Chloride (Saline Flush 2.5 Ml Monoject Prefil Syrin) 2.5 ml IV Q8 [facility] Stop: 12/06/19 21:59 Last Admin: 11/08/19 05:03 Dose: Not Given Documented by: - Allergies Allergies/Adverse Reactions: aspirin [Aspirin] Allergy (Verified 11/05/19 12:07) Anaphylaxis ciprofloxacin [From Cipro] Allergy (Verified 11/05/19 12:07) Anaphylaxis clindamycin [Clindamycin] Allergy (Verified 11/05/19 12:07) hydrocodone [From Vicodin] Allergy (Verified 11/05/19 12:07) ibuprofen [From Motrin] Allergy (Verified 11/05/19 12:07) Anaphylaxis lidocaine [From Lidoderm] Allergy (Verified 11/05/19 12:07) Generalized rash tramadol HCl [From Ultram] Allergy (Verified 11/05/19 12:07) vancomycin [Vancomycin] Allergy (Verified 11/05/19 12:07) Shortness of Breath nitroglycerin [Nitroglycerin] Adverse Reaction (Intermediate, Verified 11/05/19 12:07) Joint pain Hospital Course Hospital Course: Patient 34-year-old female with end-stage renal disease on maintenance hemodialysis with recurrent hospital admission for the management of pulmonary edema partly due to noncompliance with her dialysis treatment, she presented in the usual fashion with acute pulmonary edema she was hemodialyzed yesterday about 5 L of fluid was removed at dialysis, last night she had chest pain, EKG was done that showed ST depression in precordial leads suggest ischemia, initial cardiac enzymes was drawn it was 2, it has been trending up it was 10 this morning, last night she was started on anti-ischemic medication including IV heparin, beta-waylon, antiplatelet therapy with Plavix she has aspirin allergy on record not sure what the allergy is. She was seen in consultation by cardiology Dr. Chen and also nephrology supervises the hemodialysis. It was felt this morning that patient needed to be transferred to a tertiary care with possibility for hemodialysis and also probably catheterization. The elevated troponin could be secondary to CAD, LA or acute metabolic in nature it could be a leak from the myocardium due to poorly controlled diabetes mellitus. Patient was accepted in transfer in [place] Physical Exam Vital Signs: Temp Pulse Resp BP Pulse Ox 98.6 F 97 29 H 97/56 L 94 11/08/19 03:16 11/08/19 06:50 11/08/19 09:51 11/08/19 08:17 11/08/19 08:17 Intake & Output 11/07/19 11/08/19 11/09/19 06:59 06:59 06:59 Intake Total 100 280 100 Output Total 5101 Balance 100 -4821 100 Weight 111.6 kg 111.6 kg General appearance: PRESENT: no acute distress Eye exam: PRESENT: PERRLA Respiratory exam: PRESENT: clear to auscultation freddy Cardiovascular exam: PRESENT: +S1, +S2 GI/Abdominal exam: PRESENT: soft Neurological exam: PRESENT: alert Results Laboratory Results: 11/08/19 04:09 11/08/19 04:09 11/08/19 11/08/19 04:09 04:09 WBC 18.1 H RBC 3.35 L Hgb 9.0 L Hct 28.7 L MCV 86 MCH 26.8 L MCHC 31.4 L RDW 17.5 H Plt Count 350 Seg Neutrophils % 82.0 H Sodium 138.4 Potassium 5.9 H Chloride 90 L Carbon Dioxide 14 L Anion Gap 34 H BUN 70 H Creatinine 10.46 H Est GFR ( Amer) 5 L Glucose 330 H Calcium 7.9 L Phosphorus 11.9 H 11/07/19 01:39 Blood Blood Culture (PCR) - Final Staphylococcus Species 11/06/19 11/07/19 11/07/19 16:11 21:14 21:14 Creatine Kinase 238 H CK-MB (CK-2) 14.50 H Troponin I 0.026 2.230 11/08/19 11/08/19 04:09 07:50 Creatine Kinase 466 H CK-MB (CK-2) 33.20 H Troponin I 10.600 Impressions: Chest X-Ray 11/06/19 15:36 IMPRESSION: NO CHANGE IN APPEARANCE OF THE CHEST.
[2019-11-08] MEDS: HEPARIN SODIUM,PORCINE/D5W 25,000 UNIT/250 ML RTUINJ IV PRN (11:46)
[2019-11-08] MEDS ORDERED: CALCIUM GLUCONATE 1000 MG/10 ML INJ IV ONE (12:36)
[2019-11-08] MEDS ORDERED: NORMAL SALINE 1000 ML 1,000 ML IV PRN (12:43)
--- NOTE | 2019-11-08 12:45 | PDOC PROGRESS REPORT ---
Subjective Progress Note for:: 11/08/19 Reason For Visit: Patient seen this morning. She is not feeling well and looks uncomfortable on BiPAP. She complained of chest pain last night. It was right-sided with no radiation. She admits to being more short of breath. She underwent an uneventful dialysis yesterday with removal of approximately 5 L of fluid which she says is obviously made a breathing better for a while. However clinically she is now hypotensive with a systolic in the low 90s. She denies history of fever or chills. Besides that her troponin has leapt to around 10+ from around 2+ earlier. Discussions were done with Dr. Isacc Chen/cardiology given her high troponin leak as well as hypotension. As far as renal issues are concerned she was dialyzed yesterday she does not look to be in any distress that she needs to be dialyzed today. She can wait till tomorrow. She does not show any signs of clinical fluid overload either centrally or peripherally. Labs and medications were reviewed. Chest x-ray done earlier shows bilateral bronchopneumonic pattern. She does not show any widening mediastinum to indicate that she might have a severe pericardial effusion/tamponade. Discussions were done with the treating nurse Dev. Physical Exam Vital Signs: Temp Pulse Resp BP Pulse Ox 98.6 F 97 29 H 97/56 L 94 11/08/19 03:16 11/08/19 06:50 11/08/19 09:51 11/08/19 08:17 11/08/19 08:17 Intake & Output 11/07/19 11/08/19 11/09/19 06:59 06:59 06:59 Intake Total 100 280 176 Output Total 5101 Balance 100 -4821 176 Weight 111.6 kg 111.6 kg General appearance: PRESENT: disheveled, mild distress Respiratory exam: PRESENT: clear to auscultation freddy, decreased breath sounds. ABSENT: crackles Cardiovascular exam: PRESENT: RRR, +S1, +S2 GI/Abdominal exam: PRESENT: normal bowel sounds, soft. ABSENT: organomegaly, tenderness Extremities exam: ABSENT: pedal edema Neurological exam: PRESENT: alert, awake, oriented to person, oriented to place Psychiatric exam: PRESENT: anxious Skin exam: ABSENT: cyanosis, erythema, mottled, rash Results Laboratory Results: 11/08/19 04:09 11/08/19 04:09 11/08/19 11/08/19 04:09 04:09 WBC 18.1 H RBC 3.35 L Hgb 9.0 L Hct 28.7 L MCV 86 MCH 26.8 L MCHC 31.4 L RDW 17.5 H Plt Count 350 Seg Neutrophils % 82.0 H Sodium 138.4 Potassium 5.9 H Chloride 90 L Carbon Dioxide 14 L Anion Gap 34 H BUN 70 H Creatinine 10.46 H Est GFR ( Amer) 5 L Glucose 330 H Calcium 7.9 L Phosphorus 11.9 H 11/07/19 01:39 Blood Blood Culture (PCR) - Final Staphylococcus Species 11/06/19 11/07/19 11/07/19 16:11 21:14 21:14 Creatine Kinase 238 H CK-MB (CK-2) 14.50 H Troponin I 0.026 2.230 11/08/19 11/08/19 04:09 07:50 Creatine Kinase 466 H CK-MB (CK-2) 33.20 H Troponin I 10.600 Impressions: Chest X-Ray 11/06/19 15:36 IMPRESSION: NO CHANGE IN APPEARANCE OF THE CHEST. Assessment & Plan - Diagnosis (1) Acute hypoxemic respiratory failure Is this a current diagnosis for this admission?: Yes Plan: He does not show any evidence to indicate that she has decompensated heart failure. Most likely it is from her bronchopneumonia and possible sepsis. I would recommend transfer to the ICU and starting on pressor agents and starting on IV fluids especially given her metabolic acidosis. Check lactate levels.However she is getting quite critical especially with the severe rise of her troponin levels and being hypotensive. Given the overall situation she is better off transfer to a tertiary care. (2) End-stage renal disease on hemodialysis Plan: She was dialyzed yesterday and we removed approximately 5 L of fluid. She may have presented with a component of diastolic congestive heart failure which would have resolved with that procedure. Currently she is not showing any signs of overt congestive heart failure. (3) Non-ST elevated myocardial infarction Plan: Troponins progressively rising and current one is 10+. Looks like she has an NSTEMI. Hypotension is complicating the whole procedure at the moment and is unsure whether this is because of pump failure leading to cardiogenic shock or is this part of septic shock.Discussed with Dr. Chen/cardiology who agreed that given overall situation and criticality of the nature she is better off transferred to a tertiary care. (4) Pneumonia Qualifiers: Pneumonia type: due to unspecified organism Laterality: bilateral Lung location: unspecified part of lung Qualified Code(s): J18.9 - Pneumonia, unspecified organism Plan: On IV antibiotics (5) Acute diastolic (congestive) heart failure Plan: Currently showing no decompensation. (6) Diabetes mellitus type 1 with complications Plan: Very poorly controlled. Patient is extremely noncompliant unfortunately (7) Hyperkalemia Plan: Was dialyzed yesterday. We will treat with Kayexalate now. (8) Metabolic acidosis Plan: Differentials includes sepsis versus DKA/ESRD. Unlikely from ESRD given the fact she was dialyzed yesterday. This could be part of diabetic ketoacidosis. Would suggest IV normal saline along with IV insulin. (9) Sepsis Qualifiers: Sepsis type: sepsis due to unspecified organism Qualified Code(s): A41.9 - Sepsis, unspecified organism Plan: Given her bronchopneumonic presentation and leukocytosis and currently she is on IV antibiotics. Primary blood cultures growing a staph species. Would recommend 1 dose of daptomycin 500 mg now.
[2019-11-08] MEDS ORDERED: DAPTOMYCIN INJ 500 MG VIAL IV ONE (12:57)
[2019-11-08] MEDS ORDERED: SODIUM POLYSTYRENE SULFONATE 15 GM/60 ML PO ONE (13:00)
[2019-11-08] MEDS ORDERED: PIPERACILLIN SODIUM/TAZOBACTAM 2.25 GM in NORMAL SALINE 50 ML IV SCH (18:00)
== END 2019-11-08 13:10 | disposition short-term general hospital (02) | DRG 189 ==
LOC: ER 14:04 → EH 22:28 → 3W 23:50
PROVIDERS: ADMIT Internal Medicine; ATTEND Internal Medicine
PROC: 5A1D70Z Performance of Urinary Filtration, Intermittent, Less than 6 Hours Per Day (ICD-10-PCS; principal; 2019-11-06)
PROC: 5A09357 Assistance with Respiratory Ventilation, Less than 24 Consecutive Hours, Continuous Positive Airway Pressure (ICD-10-PCS; 2019-11-06)
DX: J81.1 Chronic pulmonary edema (principal); J96.01 Acute respiratory failure with hypoxia; I21.4 Non-ST elevation (NSTEMI) myocardial infarction; N18.6 End stage renal disease; I50.31 Acute diastolic (congestive) heart failure; I13.2 Hypertensive heart and chronic kidney disease with heart failure and with stage 5 chronic kidney disease, or end stage renal disease; E10.43 Type 1 diabetes mellitus with diabetic autonomic (poly)neuropathy; D63.1 Anemia in chronic kidney disease; E10.319 Type 1 diabetes mellitus with unspecified diabetic retinopathy without macular edema; E83.39 Other disorders of phosphorus metabolism; E83.51 Hypocalcemia; I95.9 Hypotension, unspecified; E10.22 Type 1 diabetes mellitus with diabetic chronic kidney disease; I25.10 Atherosclerotic heart disease of native coronary artery without angina pectoris; L40.9 Psoriasis, unspecified; F32.9 Major depressive disorder, single episode, unspecified; E66.01 Morbid (severe) obesity due to excess calories; E87.5 Hyperkalemia; D72.825 Bandemia; R00.0 Tachycardia, unspecified; Z79.4 Long term (current) use of insulin; Z91.15 Patient's noncompliance with renal dialysis; Z99.2 Dependence on renal dialysis; Z87.01 Personal history of pneumonia (recurrent); Z88.6 Allergy status to analgesic agent; Z88.1 Allergy status to other antibiotic agents; Z88.3 Allergy status to other anti-infective agents; Z88.8 Allergy status to other drugs, medicaments and biological substances; Z68.38 Body mass index [BMI] 38.0-38.9, adult
CPT/HCPCS: 36415; 71046; 80048; 82550; 82553; 82803; 82962; 83605; 84100; 84484; 85025; 85027; 85610; 85730; 87040; 87070; 87077; 87150; 87186; 93005; 93010; 94660; 99291; J1170; J1644; J1815; J2270; J2405; J2543; J3490; J7050; J7620; Q5105

== ENCOUNTER 2019-11-20 16:51 | Emergency (ER) | payer MEDICARE, MEDICAID ==
--- NOTE | 2019-11-20 17:58 | ER Document Report ---
ED General - General Chief Complaint: Chest Pain Stated Complaint: CHEST PAIN Time Seen by Provider: 11/20/19 17:39 Primary Care Provider: HILARY HERNANDEZ MD [Primary Care Provider] - Follow up as needed Mode of Arrival: Medic Information source: Patient Notes: 34-year-old woman presents to the emergency department with a history of chest pain which she states began while she was completing dialysis today. She has been seen in the emergency department on prior occasions with atypical chest pain. She denies shortness of breath for palpitations and presently is in no distress. She rates her pain a 7/8 out of 10 and denies radiation of the pain. TRAVEL OUTSIDE OF THE [place] IN LAST 30 DAYS: No - Related Data Allergies/Adverse Reactions: aspirin [Aspirin] Allergy (Verified 11/05/19 12:07) Anaphylaxis ciprofloxacin [From Cipro] Allergy (Verified 11/05/19 12:07) Anaphylaxis clindamycin [Clindamycin] Allergy (Verified 11/05/19 12:07) hydrocodone [From Vicodin] Allergy (Verified 11/05/19 12:07) ibuprofen [From Motrin] Allergy (Verified 11/05/19 12:07) Anaphylaxis lidocaine [From Lidoderm] Allergy (Verified 11/05/19 12:07) Generalized rash tramadol HCl [From Ultram] Allergy (Verified 11/05/19 12:07) vancomycin [Vancomycin] Allergy (Verified 11/05/19 12:07) Shortness of Breath nitroglycerin [Nitroglycerin] Adverse Reaction (Intermediate, Verified 11/05/19 12:07) Joint pain Past Medical History - Social History Smoking Status: Never Smoker Family History: Reviewed & Not Pertinent Patient has suicidal ideation: No Patient has homicidal ideation: No - Past Medical History Cardiac Medical History: Reports: Hx Congestive Heart Failure, Hx Coronary Artery Disease, Hx Hypertension, Hx Heart Murmur Pulmonary Medical History: Reports: Hx Asthma, Hx Pneumonia Neurological Medical History: Reports: Hx Migraine, Hx Seizures - only r/t low calcium. Denies: Hx Parkinson's Disease Endocrine Medical History: Reports: Hx Diabetes Mellitus Type 1, Hx Diabetes Mellitus Type 2 Renal/ Medical History: Reports: Hx End Stage Renal Disease - On hemodialysis M-W-F, Hx Hemodialysis, Hx Ovarian Cysts. Denies: Hx Peritoneal Dialysis Malignancy Medical History: GI Medical History: Reports: Hx Gastritis Musculoskeletal Medical History: Skin Medical History: Reports Hx Psoriasis Psychiatric Medical History: Reports: Hx Depression Traumatic Medical History: Infectious Medical History: Past Surgical History: Reports: Hx Appendectomy, Hx Cholecystectomy, Hx Vascular Surgery - Lt AV Fistula and graft; Rt AV fistula - Immunizations Immunizations up to date: Yes Hx Diphtheria, Pertussis, Tetanus Vaccination: Yes Hx Pneumococcal Vaccination: 08/22/11 Review of Systems - Review of Systems Notes: Constitutional: Negative for fever. HENT: Negative for sore throat. Eyes: Negative for visual changes. Cardiovascular: +chest pain. Respiratory: Negative for shortness of breath. Gastrointestinal: Negative for abdominal pain, vomiting or diarrhea. Genitourinary: Negative for dysuria. Musculoskeletal: Negative for back pain. Skin: Negative for rash. Neurological: + headaches, no weakness or numbness. 10 point ROS negative except as marked above and in HPI. Physical Exam - Vital signs Vitals: Pulse Ox 100 11/20/19 16:51 - Notes Notes: PHYSICAL EXAMINATION: Physical Exam: General: Obese female in no acute distress HEENT: NC/AT, pupils equal round and reactive to light, MM moist,nares clear, Neck: supple, no adenopathy, no masses. Lungs: clear, no wheezing, no rales no rhonchi CVS: Regular rate and rhythm no murmur gallop or rub Abdomen: Soft active nontender, no masses, no hepatosplenomegaly Ext: No edema clubbing or cyanosis. Neuro: Alert and responsive, moving all 4 extremities on command, cranial nerves intact. Skin: Intact no open lesions, no rash PSYCH: Normal mood, normal affect. Course - Re-evaluation Re-evalutation: 11/20/19 19:28 Patient was given 1 mg of Lorazepam and 75 mg of hydroxyzine IM, states that her headache has resolved and her chest pain has resolved. She is ready to go home. Laboratory data is unremarkable for acute coronary syndrome. Given her history of atypical chest pain, I am comfortable discharging the patient and she will follow-up as needed. Patient is in agreement with that plan. - Vital Signs Vital signs: Temp Pulse Resp BP Pulse Ox 100 11/20/19 16:51 - Laboratory Result Diagrams: 11/20/19 18:01 11/20/19 18:01 Laboratory results interpreted by me: 11/20/19 11/20/19 18:01 18:01 WBC 12.7 H RBC 3.23 L Hgb 8.6 L Hct 26.8 L MCH 26.7 L RDW 17.7 H Absolute Neuts (auto) 9.2 H Chloride 91 L BUN 44 H Creatinine 7.81 H Est GFR ( Amer) 7 L Est GFR (MDRD) Non-Af 6 L Glucose 121 H Alkaline Phosphatase 145 H Total Protein 8.5 H I have reviewed laboratory data and used this information for the treatment decisions regarding the patient. - EKG Interpretation by Me EKG shows normal: Sinus rhythm - Rate of 91, left atrial abnormality, prolonged QT interval, no acute ST elevation NM. Discharge - Discharge Clinical Impression: Atypical chest pain, Non-cardiac chest pain, ESRD (end stage renal disease) on dialysis Headache Qualifiers: Headache type: unspecified Headache chronicity pattern: unspecified pattern Intractability: not intractable Qualified Code(s): R51 - Headache Condition: Good Disposition: HOME, SELF-CARE Instructions: Chest Pain of Unclear Cause ([facility]) Additional Instructions: Please continue your usual medications Please follow-up with your primary care doctor as needed Return to the emergency department if needed. Referrals: HILARY HERNANDEZ MD [Primary Care Provider] - Follow up as needed
[2019-11-20] MEDS ORDERED: LORAZEPAM INJ 2 MG/1 ML VIAL IV ONE (18:02)
[2019-11-20] MEDS ORDERED: HYDROXYZINE HCL INJ 50 MG/1 ML VIAL IM ONE (18:02)
[2019-11-20 18:22] LABS: ABSOLUTE BASOPHILS # (AUTO) 0.1 10^3/uL (0.0-0.2); ABSOLUTE EOSINOPHILS # (AUTO) 0.4 10^3/uL (0.0-0.6); ABSOLUTE LYMPHOCYTES (AUTO) 1.9 10^3/uL (0.5-4.7); ABSOLUTE MONOCYTES (AUTO) 1.1 10^3/uL (0.1-1.4); ABSOLUTE NEUT (AUTO) 9.2 10^3/uL (1.7-8.2); BASOPHILS % (AUTO) 0.9 % (0-2); EOSINOPHILS % (AUTO) 2.8 % (0-6); HEMATOCRIT 26.8 % (36.0-47.0); HEMOGLOBIN 8.6 g/dL (12.0-15.5); LYMPHOCYTES % (AUTO) 15.1 % (13-45); MEAN CORPUSCULAR HEMOGLOBIN 26.7 pg (27.0-33.4); MEAN CORPUSCULAR HGB CONC 32.2 g/dL (32.0-36.0); MEAN CORPUSCULAR VOLUME 83 fl (80-97); MONOCYTES % (AUTO) 8.6 % (3-13); PLATELET COUNT 392 10^3/uL (150-450); RED BLOOD COUNT 3.23 10^6/uL (3.72-5.28); RED CELL DISTRIBUTION WIDTH 17.7 % (11.5-14.0); SEGMENTED NEUTROPHILS % (AUTO) 72.6 % (42-78); TOTAL CELLS COUNTED % (AUTO) 100 %; WHITE BLOOD COUNT 12.7 10^3/uL (4.0-10.5)
[2019-11-20 18:39] LABS: ALBUMIN 4.6 g/dL (3.5-5.0); ALKALINE PHOSPHATASE 145 U/L (38-126); ANION GAP 19 (5-19); ASPARTATE AMINO TRANSFERASE 25 U/L (14-36); BILIRUBIN,DIRECT 0.4 mg/dL (0.0-0.4); BILIRUBIN,TOTAL 0.6 mg/dL (0.2-1.3); BLOOD UREA NITROGEN 44 mg/dL (7-20); CALCIUM 8.9 mg/dL (8.4-10.2); CARBON DIOXIDE 27 mmol/L (22-30); CHLORIDE 91 mmol/L (98-107); CREATINE KINASE 62 U/L (30-135); GLUCOSE 121 mg/dL (75-110); POTASSIUM 3.9 mmol/L (3.6-5.0); TOTAL PROTEIN 8.5 g/dL (6.3-8.2)
--- NOTE | 2019-11-20 18:45 | EKG REPORT ---
SEVERITY:- ABNORMAL ECG - SINUS RHYTHM PROBABLE LEFT ATRIAL ABNORMALITY PROLONGED QT INTERVAL : Confirmed by: Ciro Beckford MD 20-Nov-2019 18:43:25
[2019-11-20 18:49] LABS: CREATINE KINASE MB 0.77 ng/mL (<4.55)
[2019-11-20 19:01] LABS: TROPONIN I 0.078 ng/mL
[2019-11-20 20:28] VITALS: BP 170/103
== END 2019-11-20 20:24 | disposition home or self-care (01) ==
LOC: ER 16:51
DX: R07.89 Other chest pain (principal); R51 Headache; I25.10 Atherosclerotic heart disease of native coronary artery without angina pectoris; I12.0 Hypertensive chronic kidney disease with stage 5 chronic kidney disease or end stage renal disease; E11.22 Type 2 diabetes mellitus with diabetic chronic kidney disease; N18.6 End stage renal disease; Z99.2 Dependence on renal dialysis; J45.909 Unspecified asthma, uncomplicated; Z87.892 Personal history of anaphylaxis; Z88.8 Allergy status to other drugs, medicaments and biological substances; Z88.1 Allergy status to other antibiotic agents; Z88.6 Allergy status to analgesic agent; Z88.5 Allergy status to narcotic agent; Z88.4 Allergy status to anesthetic agent
CPT/HCPCS: 93005; 99285; 96372; 96374; 36415; 82553; 82550; 85025; 80053; 84484; 93010; J3410; J2060

== ENCOUNTER 2019-11-27 18:20 | Emergency (ER) | payer MEDICARE, MEDICAID ==
--- NOTE | 2019-11-27 19:27 | ER Document Report ---
ED Medical Screen (RME) - General Chief Complaint: Abdominal Pain Stated Complaint: ABDOMINAL PAIN/LEG SWELLING Time Seen by Provider: 11/27/19 19:01 Primary Care Provider: HILARY HERNANDEZ MD [Primary Care Provider] - Follow up as needed Mode of Arrival: Wheelchair Information source: Patient Notes: 34-year-old female patient presenting to the emergency department chief complaint of right rib pain. Patient reports that she has also missed dialysis as [facility]. She reports that she already has new dialysis scheduled for tomorrow. Denies any chest pain or shortness of breath but does report lower extremity edema. I have greeted and performed a rapid initial assessment of this patient. A comprehensive ED assessment and evaluation of the patient, analysis of test results and completion of the medical decision making process will be conducted by additional ED providers. I have specifically instructed the patient or family members with the patient to immediately return to any nursing staff should anything change in the patient's condition or with their chief complaint. TRAVEL OUTSIDE OF THE [place] IN LAST 30 DAYS: No - Related Data Allergies/Adverse Reactions: aspirin [Aspirin] Allergy (Verified 11/05/19 12:07) Anaphylaxis ciprofloxacin [From Cipro] Allergy (Verified 11/05/19 12:07) Anaphylaxis clindamycin [Clindamycin] Allergy (Verified 11/05/19 12:07) hydrocodone [From Vicodin] Allergy (Verified 11/05/19 12:07) ibuprofen [From Motrin] Allergy (Verified 11/05/19 12:07) Anaphylaxis lidocaine [From Lidoderm] Allergy (Verified 11/05/19 12:07) Generalized rash tramadol HCl [From Ultram] Allergy (Verified 11/05/19 12:07) vancomycin [Vancomycin] Allergy (Verified 11/05/19 12:07) Shortness of Breath nitroglycerin [Nitroglycerin] Adverse Reaction (Intermediate, Verified 11/05/19 12:07) Joint pain Past Medical History - Social History Family history: Reviewed & Not Pertinent - Past Medical History Cardiac Medical History: Reports: Hx Congestive Heart Failure, Hx Coronary Artery Disease, Hx Hypertension, Hx Heart Murmur Pulmonary Medical History: Reports: Hx Asthma, Hx Pneumonia Neurological Medical History: Reports: Hx Migraine, Hx Seizures - only r/t low calcium. Denies: Hx Parkinson's Disease Endocrine Medical History: Reports: Hx Diabetes Mellitus Type 1, Hx Diabetes Mellitus Type 2 Renal/ Medical History: Reports: Hx End Stage Renal Disease - On hemodialysis M-W-, Hx Hemodialysis, Hx Ovarian Cysts. Denies: Hx Peritoneal Dialysis Malignancy Medical History: GI Medical History: Reports: Hx Gastritis Musculoskeltal Medical History: Skin Medical History: Reports Hx Psoriasis Psychiatric Medical History: Reports: Hx Depression Traumatic Medical History: Infectious Medical History: Past Surgical History: Reports: Hx Appendectomy, Hx Cholecystectomy, Hx Vascular Surgery - Lt AV Fistula and graft; Rt AV fistula - Immunizations Immunizations up to date: Yes Hx Diphtheria, Pertussis, Tetanus Vaccination: Yes Physical Exam - Vital signs Vitals: Temp Pulse Resp BP Pulse Ox 97.9 F 94 18 144/62 H 100 11/27/19 18:54 11/27/19 18:54 11/27/19 18:54 11/27/19 18:54 11/27/19 18:54 Course - Vital Signs Vital signs: Temp Pulse Resp BP Pulse Ox 97.9 F 94 18 144/62 H 100 11/27/19 18:54 11/27/19 18:54 11/27/19 18:54 11/27/19 18:54 11/27/19 18:54 Doctor's Discharge - Discharge Referrals: HILARY HERNANDEZ MD [Primary Care Provider] - Follow up as needed
--- NOTE | 2019-11-27 19:55 | RADIOLOGY REPORT (SQ) ---
EXAM DESCRIPTION: CHEST SINGLE VIEW COMPLETED DATE/TIME: 11/27/2019 7:33 pm REASON FOR STUDY: eval for fluid overload COMPARISON: 11/06/2019 EXAM PARAMETERS: NUMBER OF VIEWS: One view. TECHNIQUE: Single frontal radiographic view of the chest acquired. RADIATION DOSE: NA LIMITATIONS: None. FINDINGS: LUNGS AND PLEURA: Mild pulmonary edema. MEDIASTINUM AND HILAR STRUCTURES: No masses. Contour normal. HEART AND VASCULAR STRUCTURES: Cardiomegaly. BONES: No acute findings. HARDWARE: None in the chest. OTHER: No other significant finding. IMPRESSION: Cardiomegaly with mild pulmonary edema/ fluid overload. TECHNICAL DOCUMENTATION: JOB ID: [id number]- All Rights Reserved Reading location - IP/workstation name: [email or web address]
--- NOTE | 2019-11-27 20:20 | ER Document Report ---
ED General - General Chief Complaint: Abdominal Pain Stated Complaint: ABDOMINAL PAIN/LEG SWELLING Time Seen by Provider: 11/27/19 19:01 Primary Care Provider: HILARY HERNANDEZ MD [Primary Care Provider] - Follow up as needed Mode of Arrival: Wheelchair TRAVEL OUTSIDE OF THE [place] IN LAST 30 DAYS: No - HPI Onset: This morning Onset/Duration: Gradual Quality of pain: Achy Severity: Moderate Context: 34 year old female arrives with right sided palpable reproducible right anterior costal margin pain. No injury. She has htn and ESRD. She is due for for HD tomorrow after missing HD today. She tells me she was in correction. She is mostly concerned she may developing paniculitis on her lower extremities that she has had before. No injury. Exacerbated by: Denies Relieved by: Denies - Related Data Allergies/Adverse Reactions: aspirin [Aspirin] Allergy (Verified 11/05/19 12:07) Anaphylaxis ciprofloxacin [From Cipro] Allergy (Verified 11/05/19 12:07) Anaphylaxis clindamycin [Clindamycin] Allergy (Verified 11/05/19 12:07) hydrocodone [From Vicodin] Allergy (Verified 11/05/19 12:07) ibuprofen [From Motrin] Allergy (Verified 11/05/19 12:07) Anaphylaxis lidocaine [From Lidoderm] Allergy (Verified 11/05/19 12:07) Generalized rash tramadol HCl [From Ultram] Allergy (Verified 11/05/19 12:07) vancomycin [Vancomycin] Allergy (Verified 11/05/19 12:07) Shortness of Breath nitroglycerin [Nitroglycerin] Adverse Reaction (Intermediate, Verified 11/05/19 12:07) Joint pain Past Medical History - General Information source: Patient - Social History Smoking Status: Unknown if Ever Smoked Family History: Reviewed & Not Pertinent Patient has suicidal ideation: No Patient has homicidal ideation: No - Past Medical History Cardiac Medical History: Reports: Hx Congestive Heart Failure, Hx Coronary Artery Disease, Hx Hypertension, Hx Heart Murmur Pulmonary Medical History: Reports: Hx Asthma, Hx Pneumonia Neurological Medical History: Reports: Hx Migraine, Hx Seizures - only r/t low calcium. Denies: Hx Parkinson's Disease Endocrine Medical History: Reports: Hx Diabetes Mellitus Type 1, Hx Diabetes Mellitus Type 2 Renal/ Medical History: Reports: Hx End Stage Renal Disease - On hemodialysis M-W-F, Hx Hemodialysis, Hx Ovarian Cysts. Denies: Hx Peritoneal Dialysis Malignancy Medical History: GI Medical History: Reports: Hx Gastritis Musculoskeletal Medical History: Skin Medical History: Reports Hx Psoriasis Psychiatric Medical History: Reports: Hx Depression Traumatic Medical History: Infectious Medical History: Past Surgical History: Reports: Hx Appendectomy, Hx Cholecystectomy, Hx Vascular Surgery - Lt AV Fistula and graft; Rt AV fistula - Immunizations Immunizations up to date: Yes Hx Diphtheria, Pertussis, Tetanus Vaccination: Yes Hx Pneumococcal Vaccination: 08/22/11 Review of Systems - Review of Systems Constitutional: No symptoms reported EENT: No symptoms reported Cardiovascular: No symptoms reported Respiratory: No symptoms reported Gastrointestinal: No symptoms reported Genitourinary: No symptoms reported Female Genitourinary: No symptoms reported Musculoskeletal: No symptoms reported Skin: See HPI, Other - leg pain Hematologic/Lymphatic: No symptoms reported Neurological/Psychological: No symptoms reported Physical Exam - Vital signs Vitals: Temp Pulse Resp BP Pulse Ox 97.9 F 94 18 144/62 H 100 11/27/19 18:54 11/27/19 18:54 11/27/19 18:54 11/27/19 18:54 11/27/19 18:54 Interpretation: Normal - General General appearance: Appears well, Alert - HEENT Head: Normocephalic, Atraumatic Eyes: Normal Pupils: PERRL - Respiratory Respiratory status: No respiratory distress Chest status: Nontender Breath sounds: Normal Chest palpation: Normal - Cardiovascular Rhythm: Regular Heart sounds: Normal auscultation Murmur: No - Abdominal Inspection: Normal Distension: No distension Bowel sounds: Normal Tenderness: Nontender Organomegaly: No organomegaly - Back Back: Normal, Nontender - Extremities General upper extremity: Normal inspection, Nontender, Normal color, Normal ROM, Normal temperature General lower extremity: Tender, Normal color, Normal ROM, Normal temperature, Normal weight bearing, Other - ttp lower legs with no pain out of preportion to exam. No cellulitis.. No: Lina's sign - Neurological Neuro grossly intact: Yes Cognition: Normal Orientation: AAOx4 [place] Coma Scale Eye Opening: Spontaneous Hell[place] Coma Scale Verbal: Oriented [place] Coma Scale Motor: Obeys Commands Hell[place] Coma Scale Total: 15 Speech: Normal Motor strength normal: LUE, RUE, LLE, RLE Sensory: Normal - Psychological Associated symptoms: Normal affect, Normal mood - Skin Skin Temperature: Warm Skin Moisture: Dry Skin Color: Normal Course - Re-evaluation Re-evalutation: 11/27/19 20:22 MDM Perhaps she has mild panniculitis. Would give aspirin, but she is allergic. Has pain medicine at home. Will treat with antibiotics - keflex. Also spoke with her about follow up with PCP and HD doctor for consideration of IV antibiotics at HD. She expressed understanding. Regarding the right costal margin pain it is positional and reproducible without any serious concerns. She is mostly having pain in both the lower legs. 11/27/19 22:27 While she has a degree of elevated K it is likely related to the missed HD. She is due tomorrow. I will treat with kayexalate and give dose for tonight. She expressed understanding of the importance of following up as scheduled tomorrow for HD. - Vital Signs Vital signs: Temp Pulse Resp BP Pulse Ox 97.9 F 94 18 144/62 H 100 11/27/19 18:54 11/27/19 18:54 11/27/19 18:54 11/27/19 18:54 11/27/19 20:30 - Laboratory Result Diagrams: 11/27/19 20:47 11/27/19 20:47 Laboratory results interpreted by me: 11/27/19 11/27/19 20:47 20:47 WBC 10.9 H RBC 3.07 L Hgb 8.5 L Hct 26.1 L RDW 18.0 H Sodium 134.7 L Potassium 5.6 H Chloride 90 L Carbon Dioxide 21 L Anion Gap 24 H BUN 77 H Creatinine 13.33 H Est GFR ( Amer) 4 L Est GFR (MDRD) Non-Af 3 L Glucose 354 H Direct Bilirubin 0.6 H Alkaline Phosphatase 134 H Total Protein 9.1 H - Diagnostic Test Radiology reviewed: Reports reviewed - EKG Interpretation by Me EKG shows normal: Sinus rhythm Rate: Normal Rhythm: NSR - NSR LAD [address] elevation or depression my interpretation. When compared to previous EKG there are: No significant change Discharge - Discharge Clinical Impression: ESRD (end stage renal disease) on dialysis, Costal margin pain, Leg pain, bilateral, Hyperkalemia Condition: Good Disposition: HOME, SELF-CARE Additional Instructions: Keep your hemodialysis appointment tomorrow. Rest. Take the pain medicine you have for the pain. Return here for any chest pain or shortness of breath or other concerns. Prescriptions: Sodium Polystyrene Sulfonate [Sps] 30 gm PO ONCE PRN #120 ml PRN Reason: Cephalexin Monohydrate [Keflex 500 mg Capsule] 250 mg PO BID #20 capsule Forms: Elevated Blood Pressure Referrals: HILARY HERNANDEZ MD [Primary Care Provider] - Follow up as needed
[2019-11-27] MEDS ORDERED: ONDANSETRON HCL INJ/PF 4 MG/2 ML SDV IV ONE ×2 (20:50→22:26)
[2019-11-27 21:11] LABS: ABSOLUTE BASOPHILS # (AUTO) 0.1 10^3/uL (0.0-0.2); ABSOLUTE EOSINOPHILS # (AUTO) 0.3 10^3/uL (0.0-0.6); ABSOLUTE LYMPHOCYTES (AUTO) 2.1 10^3/uL (0.5-4.7); ABSOLUTE MONOCYTES (AUTO) 0.6 10^3/uL (0.1-1.4); ABSOLUTE NEUT (AUTO) 7.8 10^3/uL (1.7-8.2); BASOPHILS % (AUTO) 0.7 % (0-2); EOSINOPHILS % (AUTO) 2.9 % (0-6); HEMATOCRIT 26.1 % (36.0-47.0); HEMOGLOBIN 8.5 g/dL (12.0-15.5); LYMPHOCYTES % (AUTO) 19.1 % (13-45); MEAN CORPUSCULAR HEMOGLOBIN 27.5 pg (27.0-33.4); MEAN CORPUSCULAR HGB CONC 32.4 g/dL (32.0-36.0); MEAN CORPUSCULAR VOLUME 85 fl (80-97); MONOCYTES % (AUTO) 5.9 % (3-13); PLATELET COUNT 413 10^3/uL (150-450); RED BLOOD COUNT 3.07 10^6/uL (3.72-5.28); SEGMENTED NEUTROPHILS % (AUTO) 71.4 % (42-78); TOTAL CELLS COUNTED % (AUTO) 100 %; WHITE BLOOD COUNT 10.9 10^3/uL (4.0-10.5)
[2019-11-27 21:37] LABS: ALBUMIN 4.8 g/dL (3.5-5.0); ALKALINE PHOSPHATASE 134 U/L (38-126); ASPARTATE AMINO TRANSFERASE 35 U/L (14-36); BILIRUBIN,DIRECT 0.6 mg/dL (0.0-0.4); BILIRUBIN,TOTAL 0.6 mg/dL (0.2-1.3); BLOOD UREA NITROGEN 77 mg/dL (7-20); CALCIUM 9.1 mg/dL (8.4-10.2); GLUCOSE 354 mg/dL (75-110); POTASSIUM 5.6 mmol/L (3.6-5.0); TOTAL PROTEIN 9.1 g/dL (6.3-8.2)
[2019-11-27 21:43] LABS: CARBON DIOXIDE 21 mmol/L (22-30); CHLORIDE 90 mmol/L (98-107)
[2019-11-27 21:48] LABS: ANION GAP 24 (5-19)
--- NOTE | 2019-11-27 22:12 | EKG REPORT ---
SEVERITY:- ABNORMAL ECG - SINUS RHYTHM FIRST DEGREE AV BLOCK PROBABLE LEFT ATRIAL ABNORMALITY PROBABLE LEFT VENTRICULAR HYPERTROPHY PROLONGED QT INTERVAL : Confirmed by: Daniela Lemons 27-Nov-2019 22:11:26
[2019-11-27] MEDS ORDERED: MORPHINE SULFATE 10 MG/ML INJ IV ONE (22:24)
[2019-11-27] MEDS ORDERED: SODIUM POLYSTYRENE SULFONATE 15 GM/60 ML PO ONE (22:26)
[2019-11-27 23:16] VITALS: BP 166/77
== END 2019-11-27 23:30 | disposition home or self-care (01) ==
LOC: ER 18:20
DX: R07.89 Other chest pain (principal); E87.5 Hyperkalemia; I12.0 Hypertensive chronic kidney disease with stage 5 chronic kidney disease or end stage renal disease; E11.22 Type 2 diabetes mellitus with diabetic chronic kidney disease; N18.6 End stage renal disease; Z99.2 Dependence on renal dialysis; Z91.15 Patient's noncompliance with renal dialysis; M79.604 Pain in right leg; M79.605 Pain in left leg; J45.909 Unspecified asthma, uncomplicated; Z87.892 Personal history of anaphylaxis; Z88.8 Allergy status to other drugs, medicaments and biological substances; Z88.1 Allergy status to other antibiotic agents; Z88.6 Allergy status to analgesic agent; Z88.5 Allergy status to narcotic agent; Z88.4 Allergy status to anesthetic agent
CPT/HCPCS: 93005; 96376; 99284; 96374; 96375; 36415; 85025; 80053; 84484; 71045; 93010; J2270; A9270; J2405

== ENCOUNTER 2019-11-29 09:39 | Inpatient (IN) | payer MEDICARE, MEDICAID ==
--- NOTE | 2019-11-29 10:11 | ER Document Report ---
ED General - General Chief Complaint: Altered Mental Status Stated Complaint: ALTERED MENTAL STATUS Time Seen by Provider: 11/29/19 10:00 Primary Care Provider: HILARY HERNANDEZ MD [Primary Care Provider] - Follow up as needed Mode of Arrival: Medic Information source: Patient, Emergency Med Personnel, [facility] Records Cannot obtain history due to: Altered mental status Notes: Patient states that she took her Ambien last evening however this morning it seems to have affected her and she is showing signs of generalized weakness and mild slurred speech. At time of presentation patient presents via EMS sleepy but is able to answer questions appropriately. Patient was recently seen at this facility for leg swelling. Patient states her legs are still swollen and painful. TRAVEL OUTSIDE OF THE [place] IN LAST 30 DAYS: No - HPI Patient complains to provider of: Generalized weakness and leg pain/ swelling Onset: This morning Onset/Duration: Gradual Quality of pain: Achy, Pressure Severity: Moderate Pain Level: 2 Associated symptoms: Leg swelling, Slow to respond, Weakness Exacerbated by: Movement Relieved by: Denies Similar symptoms previously: Yes Recently seen / treated by doctor: Yes - Related Data Allergies/Adverse Reactions: aspirin [Aspirin] Allergy (Verified 11/05/19 12:07) Anaphylaxis ciprofloxacin [From Cipro] Allergy (Verified 11/05/19 12:07) Anaphylaxis clindamycin [Clindamycin] Allergy (Verified 11/05/19 12:07) hydrocodone [From Vicodin] Allergy (Verified 11/05/19 12:07) ibuprofen [From Motrin] Allergy (Verified 11/05/19 12:07) Anaphylaxis lidocaine [From Lidoderm] Allergy (Verified 11/05/19 12:07) Generalized rash tramadol HCl [From Ultram] Allergy (Verified 11/05/19 12:07) vancomycin [Vancomycin] Allergy (Verified 11/05/19 12:07) Shortness of Breath nitroglycerin [Nitroglycerin] Adverse Reaction (Intermediate, Verified 11/05/19 12:07) Joint pain Past Medical History - General Information source: Patient, Emergency Med Personnel, [facility] Records Cannot obtain history due to: Altered mental status - Social History Smoking Status: Unknown if Ever Smoked Cigarette use (# per day): No Chew tobacco use (# tins/day): No Frequency of alcohol use: None Drug Abuse: None Lives with: Family Family History: Reviewed & Not Pertinent Patient has suicidal ideation: No Patient has homicidal ideation: No - Medical History Medical History: Other - Past Medical History Cardiac Medical History: Reports: Hx Congestive Heart Failure, Hx Coronary Artery Disease, Hx Hypertension, Hx Heart Murmur Pulmonary Medical History: Reports: Hx Asthma, Hx Pneumonia EENT Medical History: Reports: None Neurological Medical History: Reports: Hx Migraine, Hx Seizures - only r/t low calcium. Denies: Hx Parkinson's Disease Endocrine Medical History: Reports: Hx Diabetes Mellitus Type 1, Hx Diabetes Mellitus Type 2 Renal/ Medical History: Reports: Hx End Stage Renal Disease - On hemodialysis --, Hx Hemodialysis, Hx Ovarian Cysts. Denies: Hx Peritoneal Dialysis Malignancy Medical History: GI Medical History: Reports: Hx Gastritis Musculoskeletal Medical History: Skin Medical History: Reports Hx Psoriasis Psychiatric Medical History: Reports: Hx Depression Traumatic Medical History: Infectious Medical History: Past Surgical History: Reports: Hx Appendectomy, Hx Cholecystectomy, Hx Vascular Surgery - Lt AV Fistula and graft; Rt AV fistula - Immunizations Immunizations up to date: Yes Hx Diphtheria, Pertussis, Tetanus Vaccination: Yes History of Pneumococcal Vaccine: Unknown Hx Pneumococcal Vaccination: 08/22/11 History of Influenza Vaccine for 08/2019 - 01/2020 Season: Unknown Review of Systems - Review of Systems Constitutional: Malaise, Weakness EENT: No symptoms reported Cardiovascular: No symptoms reported Respiratory: Short of breath Gastrointestinal: No symptoms reported Genitourinary: No symptoms reported Female Genitourinary: No symptoms reported Musculoskeletal: Leg swelling, Ankle swelling Skin: Rash Hematologic/Lymphatic: No symptoms reported Neurological/Psychological: No symptoms reported -: Yes All other systems reviewed and negative Physical Exam - Vital signs Vitals: Pulse Resp BP Pulse Ox 94 18 105/69 94 11/29/19 09:40 11/29/19 09:40 11/29/19 09:40 11/29/19 09:40 Interpretation: Normal - General In distress: None - HEENT Head: Normocephalic, Atraumatic Eyes: Normal Conjunctiva: Normal Cornea: Normal Extraocular movements intact: Yes Eyelashes: Normal Pupils: PERRL Nasal: Normal Mouth/Lips: Normal Neck: Normal - Respiratory Respiratory status: No respiratory distress Chest status: Nontender Breath sounds: Normal Chest palpation: Normal - Cardiovascular Rhythm: Regular Heart sounds: Normal auscultation Murmur: No Pulses: Normal: Radial, Dorsalis pedis Normal capillary refill: Yes - Abdominal Inspection: Normal Distension: No distension Bowel sounds: Normal Tenderness: Nontender - Extremities Shoulder: Normal Calf: Normal Ankle: Edema Foot: Edema - Neurological Cognition: Normal Orientation: AAOx4 [place]en Coma Scale Eye Opening: To Pain [place] Coma Scale Verbal: Oriented [place] Coma Scale Motor: Obeys Commands [place] Coma Scale Total: 13 Speech: Dysarthria Cranial nerves: Normal Sensory: Normal - Psychological Associated symptoms: Excessive sleeping - Skin Skin Temperature: Warm Skin Moisture: Dry Skin Color: Ecchymosis Location of irregularity: Generalized Course - Re-evaluation Re-evalutation: 11/29/19 11:38 On reevaluation patient is still sleepy at this time however does continue to answer questions appropriately. Chest x-ray demonstrates no significant finding EKG was similar to baseline currently waiting on lab results. 11/29/19 1 11/29/19 13:10 . I was able to speak with the patient's primary care provider after reviewing her labs he requests that we speak with nephrology for dialysis. Please transf er text on reevaluation the patient is resting comfortably in hospital bed. After reviewing the patient's labs I spoke with the patient's primary care provider and he requests the patient be admitted for the purpose of dialysis. I just spoke with Dr. Bolivar nephrology pre certification specialist who agrees with admission and currently is obtaining a bed for the patient. Patient is stable for admission at this time. - Vital Signs Vital signs: Temp Pulse Resp BP Pulse Ox 97.8 F 94 15 135/82 H 95 11/29/19 10:00 11/29/19 09:40 11/29/19 11:01 11/29/19 11:01 11/29/19 11:01 - Laboratory Result Diagrams: 11/29/19 11:21 11/29/19 11:21 Laboratory results interpreted by me: 11/29/19 11/29/19 11/29/19 11:21 11:21 11:21 RBC 2.86 L Hgb 7.8 L Hct 24.1 L RDW 17.8 H Potassium 5.7 H Chloride 94 L Carbon Dioxide 20 L Anion Gap 24 H BUN 84 H Creatinine 16.35 H Est GFR ( Amer) 3 L Est GFR (MDRD) Non-Af 3 L Glucose 199 H Calcium 8.2 L Alkaline Phosphatase 131 H NT-Pro-B Natriuret Pep 26385 H Acetaminophen < 10 L - Diagnostic Test Radiology reviewed: Pending, Image reviewed, Reports reviewed - EKG Interpretation by Me EKG shows normal: Sinus rhythm Rate: Normal Rhythm: PVC's Heart block present: 1st Degree When compared to previous EKG there are: No significant change Additional EKG results interpreted by me: 11/29/19 10:27 . EKG today demonstrates sinus rhythm with PVCs rate of 88 bpm no axis deviation no ST elevation no major change compared to prior EKG of November 27, 2019 Discharge - Discharge Clinical Impression: ESRD (end stage renal disease) on dialysis, Hyperkalemia, Shortness of breath Altered mental status Qualifiers: Altered mental status type: somnolence Qualified Code(s): R40.0 - Somnolence Condition: Fair Disposition: ADMITTED INPATIENT Admitting Provider: Areli Unit Admitted: Medical Floor Referrals: HILARY HERNANDEZ MD [Primary Care Provider] - Follow up as needed
--- NOTE | 2019-11-29 10:31 | RADIOLOGY REPORT (SQ) ---
EXAM DESCRIPTION: CHEST SINGLE VIEW COMPLETED DATE/TIME: 11/29/2019 10:19 am REASON FOR STUDY: AMS COMPARISON: AP view of the chest from 11/27/2019. EXAM PARAMETERS: NUMBER OF VIEWS: One view. TECHNIQUE: An AP view of the chest was obtained. RADIATION DOSE: NA LIMITATIONS: None. FINDINGS: LUNGS AND PLEURA: Low inspiratory lung volumes without a superimposed consolidation, sizea ble pleural effusion or pneumothorax. MEDIASTINUM AND HILAR STRUCTURES: Stable mediastinal and hilar contours. HEART AND VASCULAR STRUCTURES: Stable cardiomegaly. BONES: No acute findings. HARDWARE: Endovascular stents within the venous outflow of a right upper extremity dialysis access. OTHER: No other finding. IMPRESSION: Cardiomegaly and low inspiratory lung volumes without a superimposed acute cardiopulmona ry process. TECHNICAL DOCUMENTATION: JOB ID: [id number] [employer]- All Rights Reserved Reading location - IP/workstation name: [email or web address]
--- NOTE | 2019-11-29 11:20 | EKG REPORT ---
SEVERITY:- ABNORMAL ECG - SINUS RHYTHM FIRST DEGREE AV BLOCK PROLONGED QT INTERVAL ARTIFACTS NOTED : Confirmed by: Daniela Lemons 29-Nov-2019 11:20:01
[2019-11-29 11:49] LABS: ABSOLUTE BASOPHILS # (AUTO) 0.1 10^3/uL (0.0-0.2); ABSOLUTE EOSINOPHILS # (AUTO) 0.3 10^3/uL (0.0-0.6); ABSOLUTE LYMPHOCYTES (AUTO) 1.8 10^3/uL (0.5-4.7); ABSOLUTE MONOCYTES (AUTO) 0.6 10^3/uL (0.1-1.4); ABSOLUTE NEUT (AUTO) 5.3 10^3/uL (1.7-8.2); BASOPHILS % (AUTO) 0.6 % (0-2); EOSINOPHILS % (AUTO) 3.6 % (0-6); HEMATOCRIT 24.1 % (36.0-47.0); MEAN CORPUSCULAR HEMOGLOBIN 27.3 pg (27.0-33.4); MEAN CORPUSCULAR HGB CONC 32.4 g/dL (32.0-36.0); MEAN CORPUSCULAR VOLUME 84 fl (80-97); MONOCYTES % (AUTO) 7.1 % (3-13); PLATELET COUNT 338 10^3/uL (150-450); RED BLOOD COUNT 2.86 10^6/uL (3.72-5.28); RED CELL DISTRIBUTION WIDTH 17.8 % (11.5-14.0); SEGMENTED NEUTROPHILS % (AUTO) 66.7 % (42-78); TOTAL CELLS COUNTED % (AUTO) 100 %
[2019-11-29 11:54] LABS: HEMOGLOBIN 7.8 g/dL (12.0-15.5)
[2019-11-29 12:01] LABS: ALBUMIN 4.2 g/dL (3.5-5.0); ALKALINE PHOSPHATASE 131 U/L (38-126); ASPARTATE AMINO TRANSFERASE 20 U/L (14-36); BILIRUBIN,DIRECT 0.4 mg/dL (0.0-0.4); BILIRUBIN,TOTAL 0.4 mg/dL (0.2-1.3); BLOOD UREA NITROGEN 84 mg/dL (7-20); CALCIUM 8.2 mg/dL (8.4-10.2); CARBON DIOXIDE 20 mmol/L (22-30); CHLORIDE 94 mmol/L (98-107); GLUCOSE 199 mg/dL (75-110); POTASSIUM 5.7 mmol/L (3.6-5.0); TOTAL PROTEIN 8.1 g/dL (6.3-8.2)
[2019-11-29 12:13] LABS: ACETAMINOPHEN < 10 ug/mL (10-30); ALCOHOL < 10 mg/dL (NONE DETECTED)
[2019-11-29 12:49] LABS: ANION GAP 24 (5-19)
[2019-11-29] MEDS ORDERED: HEPARIN SOD (PORCINE) 1,000 UNIT/ML 10 ML VIAL IV PRN (13:20)
[2019-11-29] MEDS ORDERED: EPOETIN ALFA-EPBX 20,000 UNIT in SYRINGE, DISPOSABLE, 1 EACH IV PRN (13:20)
[2019-11-29] MEDS ORDERED: (PENDING PHARMACY ID) (Oxycodone Hcl/Acetaminophen [Percocet 7.5-325 Mg Tablet] 1 EACH) PO PRN (16:48)
[2019-11-29] MEDS ORDERED: (PENDING PHARMACY ID) (Nifedipine [Procardia Xl 60 Mg Tablet] 60 MG) PO SCH (17:00)
[2019-11-29] MEDS ORDERED: CALCIUM ACETATE 667 MG CAPSULE PO PRN (17:00)
[2019-11-29] MEDS ORDERED: (PENDING PHARMACY ID) (Oxcarbazepine [Trileptal] 300 MG) PO SCH (17:00)
[2019-11-29] MEDS ORDERED: METOLAZONE 10 MG PO SCH (17:00)
[2019-11-29] MEDS ORDERED: OXYCODONE-ACETAMINOPHEN 5-325 MG TABLET PO PRN (17:38)
[2019-11-29] MEDS ORDERED: OXYCODONE HCL IR 5 MG TABLET PO PRN (17:38)
[2019-11-29] MEDS ORDERED: PAROXETINE PO SCH (18:00)
[2019-11-29] MEDS ORDERED: (PENDING PHARMACY ID) (Insulin Detemir [Levemir] 35 UNIT) SQ SCH (18:00)
[2019-11-29] MEDS ORDERED: (PENDING PHARMACY ID) (Alprazolam [Alprazolam] 1 MG) PO SCH (18:00)
[2019-11-29] MEDS ORDERED: (PENDING PHARMACY ID) (Bumetanide [Bumex 2 Mg Tablet] 2 MG) PO SCH (18:00)
--- NOTE | 2019-11-29 18:04 | PDOC CONSULTATION ---
Consultation Consult Date: 11/29/19 Provider Consulted: ERICA IVY Consult reason:: I was asked to see the patient to supervise dialysis and ESRD patient coming in with mild hyperkalemia and clinical signs of fluid overload. History of Present Illness Admission Date/PCP: 11/29/19 13:31 HILARY HERNANDEZ MD History of Present Illness: ERICH GOODMAN is a 34-year-old lady known to me with history of ESRD secondary to diabetic nephropathy on maintenance hemodialysis 3 times a week, diabetes mellitus type 1, hypertension, hypocalcemia, anemia of chronic kidney disease, and recent episode of possible acute VA requiring transfer to [facility] on November 08, 2019. According to the emergency room provider, Dr. Brian the patient took Ambien last night and came in via EMS to the emergency room with generalized weakness and mild slurred speech. She was also in the ER 2 days ago because of swollen and painful lower extremities. When I talked with the patient, being that she is actually awake and answering questions appropriately, she tells me that she was actually at the pain management clinic this morning but she could not keep herself awake so EMS was called and she was brought to the emergency room. She denies having taking Ambien telling me that she actually does not have Ambien so not sure if that is credible. She states that her legs are hurting so bad that she is unable to sleep for the last 3 days. She complains that there is she feels that something is stuck in her throat and she has difficulty swallowing. She said she feels like she is getting some allergic reaction but she could not tell me if there are any new medications or food that she ate. Dr. Hernandez look at her throat earlier and saw no abnormality. She complains of pain on her left lower rib cage area. She denies any shortness of breath, cough, diarrhea nor vomiting but admits to nausea. Initial evaluation in the emergency room showed a potassium of 5.7, expected elevation of BUN at 84 and creatinine of 16.35 with hemoglobin of 7.8. Her chest x-ray showed cardiomegaly with low inspiratory lung volumes without superimposed acute cardiopulmonary process. Patient was admitted from November 07 to November 08 and was transferred to [facility] due to elevated troponin and possible acute VA. She was also thought to have possible sepsis with hypotension and pneumonia during that admission. At this time we do not have records from [facility] so were not sure what happened there but she was there for about a week according to the patient. I am seeing the patient during dialysis this afternoon. She is pretty much concerned about her throat and her leg pains. She is tolerating dialysis thoug h. We are trying to get as much ultrafiltration that she can tolerate. She is so far hemodynamically stable. Her last dialysis treatment was last Wednesday and apparently she missed her dialysis last Wednesday. Past Medical History Cardiac Medical History: Reports: Coronary Artery Disease, Heart Murmur, Hypertension-primary, Myocardial Infarction Pulmonary Medical History: Reports: Asthma, Pneumonia Neurological Medical History: Reports: Migraine, Seizures - only r/t low calcium Endocrine Medical History: Reports: Diabetes Mellitus Type 1 Complications of Diabetes: Reports: Autonomic Neuropathy, Nephropathy, Retinopathy Renal/ Medical History: Reports: End Stage Renal Disease - On hemodialysis M-W-, Hypocalcemia, Hyperkalemia, Hyperphosphatemia Malignancy Medical History: GI Medical History: Musculoskeltal Medical History: Skin Medical History: Reports: Psoriasis Psychiatric Medical History: Reports: Depression Infectious Medical History: Hematology Medical History: Reports Anemia of Chronic Kidney Disease Past Surgical History Past Surgical History: Reports: Appendectomy, Cholecystectomy, Dialysis Access Surgery AVF, Vascular Surgery - Lt AV Fistula and graft; Rt AV fistula Social History Information Source: Patient, [facility] Records Lives with: Family Smoking Status: Never Smoker Electronic Cigarette use?: No Frequency of Alcohol Use: Occasional Hx Recreational Drug Use: No Drugs: None Hx Prescription Drug Abuse: No Family History Family History: No history of kidney disease. Son has autism. Parental Family History Reviewed: Yes Children Family History Reviewed: Yes Sibling(s) Family History Reviewed.: Yes Medication/Allergy Home Medications: Calcium Acetate [Phoslo 667 mg Capsule] 1,334 mg PO .[id number] 09/25/19 Calcium Acetate [Phoslo 667 mg Capsule] 2,001 mg PO Q8 09/25/19 Furosemide [Lasix 80 mg Tablet] 80 mg PO Q8 09/25/19 Insulin Detemir [Levemir] 35 unit SQ BID 09/25/19 Insulin Lispro [Humalog Insulin (Lispro) 100 unit/mL] 0 unit SUBCUT .SLD SCALE 09/25/19 Nifedipine [Procardia XL 60 mg Tablet] 60 mg PO Q12 09/25/19 Oxcarbazepine [Trileptal] 300 mg PO Q12 09/25/19 Oxycodone HCl/Acetaminophen [Percocet 7.5-325 mg Tablet] 1 each PO QIDP PRN 09/25/19 Paroxetine HCl [Paxil] 80 mg PO QPM 09/25/19 Sodium Polystyrene Sulfonate [Kayexalate 15 gm/60 ml Susp 60 ml] 30 gm PO SRIVASTAVA@1000 09/25/19 Alprazolam 1 mg PO TID 10/25/19 Bumetanide [Bumex 2 mg Tablet] 2 mg PO BID 10/25/19 Metolazone 10 mg PO DAILY 10/25/19 Promethazine HCl [Phenergan 25 mg Tablet] 12.5 mg PO Q12HP PRN 10/25/19 Atorvastatin Calcium [Lipitor 80 mg Tablet] 80 mg PO QHS 11/29/19 Carvedilol [Coreg 3.125 mg Tablet] 3.125 mg PO Q12 11/29/19 Clonidine HCl [Catapres 0.1 mg Tablet] 0.1 mg PO Q8 11/29/19 Clopidogrel Bisulfate [Plavix 75 mg Tablet] 75 mg PO DAILY 11/29/19 Zolpidem Tartrate [Ambien] 10 mg PO QHS 11/29/19 Allergies/Adverse Reactions: aspirin [Aspirin] Allergy (Verified 11/05/19 12:07) Anaphylaxis ciprofloxacin [From Cipro] Allergy (Verified 11/05/19 12:07) Anaphylaxis clindamycin [Clindamycin] Allergy (Verified 11/05/19 12:07) hydrocodone [From Vicodin] Allergy (Verified 11/05/19 12:07) ibuprofen [From Motrin] Allergy (Verified 11/05/19 12:07) Anaphylaxis lidocaine [From Lidoderm] Allergy (Verified 11/05/19 12:07) Generalized rash tramadol HCl [From Ultram] Allergy (Verified 11/05/19 12:07) vancomycin [Vancomycin] Allergy (Verified 11/05/19 12:07) Shortness of Breath nitroglycerin [Nitroglycerin] Adverse Reaction (Intermediate, Verified 11/05/19 12:07) Joint pain Review of Systems All systems: reviewed and no additional remarkable complaints except as stated Review of Systems: Constitutional: ABSENT: chills, fatigue, fever(s), headache(s), weight gain, weight loss Eyes: ABSENT: visual disturbances Ears: ABSENT: hearing changes Cardiovascular: ABSENT: chest pain, dyspnea on exertion, orthropnea, palpitations; admits leg swelling Respiratory: ABSENT: cough, dyspnea, hemoptysis Gastrointestinal: ABSENT: abdominal pain, constipation, diarrhea, hematemesis, hematochezia, nausea, vomiting Genitourinary: ABSENT: dysuria, hematuria Musculoskeletal: ABSENT: joint swelling Integumentary: ABSENT: Wounds; admits painful rashes on her lower extremities Neurological: ABSENT: abnormal gait, abnormal speech, confusion, dizziness, focal weakness, numbness, syncope Psychiatric: ABSENT: anxiety, depression Endocrine: ABSENT: cold intolerance, heat intolerance, polydipsia, polyuria Hematologic/Lymphatic: ABSENT: easy bleeding, easy bruising, lymphadenopathy Physical Exam Vital Signs: Temp Pulse Resp BP Pulse Ox 97.8 F 94 16 117/70 99 11/29/19 10:00 11/29/19 09:40 11/29/19 13:01 11/29/19 13:00 11/29/19 13:01 Vitals during dialysis: Blood pressure 149/63, heart rate of 90, blood flow rate of 450 mL/min and dialysate flow rate of 800 mL/min. Exam: General appearance: No acute distress, cooperative, well-developed, well- nourished Head exam: PRESENT: atraumatic, normocephalic; she has facial swelling Eye exam: PRESENT: Conjunctiva pale, EOMI, PERRLA. Positive periorbital edema ABSENT: conjunctival injection, scleral icterus Mouth exam: PRESENT: moist, neck supple, tongue midline, from limited view of her throat I do not see any erythema nor edema. Neck exam: PRESENT: full ROM. She has short neck ABSENT: carotid bruit, JVD, lymphadenopathy, thyromegaly Respiratory exam: PRESENT: clear to auscultation bilaterally. ABSENT: rales, rhonchi, stridor, wheezes Cardiovascular exam: PRESENT: RRR, +S1, +S2. ABSENT: systolic murmur Pulses: PRESENT: normal radial pulses, normal dorsalis pedis pulses GI/Abdominal exam: PRESENT: normal bowel sounds, soft. ABSENT: guarding, mass, tenderness Rectal exam: Deferred Extremities exam: PRESENT: full ROM. She has grade 2 bilateral lower extremity pitting edema; both her legs are very tender to light touch not only over the rashes but diffusely. ABSENT: calf tenderness Musculoskeletal: PRESENT: full ROM. Positive left lower rib cage tenderness ABSENT: deformity Neurological exam: PRESENT: alert, Awake, Oriented to person, Oriented to place, Oriented to time, reflexes normal, CN II-XII grossly intact. ABSENT: motor sensory deficit Psychiatric exam: PRESENT: appropriate affect, she was tearful ABSENT: homicidal ideation, suicidal ideation Skin exam: PRESENT: intact, dry, warm. She has follicular lesion on her lower e xtremity consistent with folliculitis and few erythematous macular painful rashes Results Laboratory Results: 11/29/19 11:21 11/29/19 11:21 11/29/19 11/29/19 11:21 11:21 WBC 8.0 RBC 2.86 L Hgb 7.8 L Hct 24.1 L MCV 84 MCH 27.3 MCHC 32.4 RDW 17.8 H Plt Count 338 Seg Neutrophils % 66.7 Sodium 138.4 Potassium 5.7 H Chloride 94 L Carbon Dioxide 20 L Anion Gap 24 H BUN 84 H Creatinine 16.35 H Est GFR ( Amer) 3 L Glucose 199 H Calcium 8.2 L Total Bilirubin 0.4 AST 20 Alkaline Phosphatase 131 H Total Protein 8.1 Albumin 4.2 11/29/19 11/29/19 11:21 11:21 Troponin I 0.024 NT-Pro-B Natriuret Pep 09364 H Impressions: Chest X-Ray 11/29/19 10:03 IMPRESSION: Cardiomegaly and low inspiratory lung volumes without a superimposed acute cardiopulmonary process. Assessment & Plan - Diagnosis (1) ESRD on dialysis Is this a current diagnosis for this admission?: Yes Plan: We will do dialysis today for 3.5 hours, using the patient's AV fistula, with 2 potassium bath, blood flow rate of 450 mL per minute, dialysate flow rate of 800 mL per minute, ultrafiltration 4 to 5 L as tolerated, low-dose heparin and Procrit with 20,000 units during dialysis intravenously. Patient is currently being monitored throughout dialysis treatment. Ultrafiltration is adjusted accordingly per her blood pressure. (2) Hyperkalemia Is this a current diagnosis for this admission?: Yes Plan: Urgent dialysis as above. (3) Bilateral lower extremity edema Is this a current diagnosis for this admission?: Yes Plan: Likely due to missing dialysis treatment and noncompliance with diet and fluid restrictions. (4) Leg pain, bilateral Is this a current diagnosis for this admission?: Yes Plan: Possible causes include diabetic neuropathy, pain due to increased lower extremity edema and with the presence of skin rashes I think we need to rule out vasculitis. (5) Skin rash Is this a current diagnosis for this admission?: Yes Plan: Patient has acute onset of painful skin rash on bilateral lower extremities. I will repeat vasculitis work-up including ANCA, ENZO, and cryoglobulin. Previously in September 14, 2019 she had a negative ENZO, negative PNC ANCA but she did not have this rash before. Hopefully decreasing lower extremity edema would help the pain as well too. (6) Anemia in chronic kidney disease (CKD) Qualifiers: Chronic kidney disease stage: on chronic dialysis Qualified Code(s): N18.6 - End stage renal disease; D63.1 - Anemia in chronic kidney disease; Z99.2 - Dependence on renal dialysis Is this a current diagnosis for this admission?: Yes Plan: Procrit/Retacrit during dialysis treatment as needed. (7) Diabetes mellitus type 1 with complications Is this a current diagnosis for this admission?: Yes (8) Dysphagia, unspecified Is this a current diagnosis for this admission?: Yes Plan: No obvious acute pathology clinically. Etiology is unknown. (9) Hypertension Qualifiers: Is this a current diagnosis for this admission?: Yes (10) Hypocalcemia Is this a current diagnosis for this admission?: Yes Plan: Currently mild. - Notes Notes: Discussed with Dr. Hernandez. Thank you very much for this consultation. We will follow the patient with you. - Time Time Spent: Greater than 70 Minutes
[2019-11-29] MEDS: NIFEDIPINE 30 MG TAB.ER.24 PO SCH (20:31)
[2019-11-29] MEDS: PAROXETINE HCL 20 MG TABLET PO SCH (20:31)
[2019-11-29] MEDS: BUMETANIDE 1 MG TABLET PO SCH (20:31)
[2019-11-29] MEDS: CALCIUM ACETATE 667 MG CAPSULE PO SCH (20:31)
[2019-11-29] MEDS: CLOPIDOGREL BISULFATE 75 MG TABLET PO SCH (20:35)
[2019-11-29] MEDS: OXCARBAZEPINE 150 MG TABLET PO SCH (20:48)
[2019-11-29] MEDS: METOLAZONE 5 MG TABLET PO SCH (20:48)
--- NOTE | 2019-11-29 21:11 | PDOC H&P ---
History of Present Illness Admission Date/PCP: 11/29/19 13:31 HILARY HERNANDEZ MD History of Present Illness: ERICH GOODMAN is a 34 year old female,She has end-stage kidney disease on [facility] hemodialysis, she was recently transferred to [place] in October 2019 when she presented with elevated serum troponin with acute ST-T segment deviation,there was associated hypotension ,NC versus septic shock was suspected, we do not have records from [place] at this time there was no communication between [place] and myself or another physician we do not know exactly what she was managed for in [place] but she stated that she was in [place] for a week and she was on 24-hour dialysis. She came to the emergency room for evaluation of altered mental status she apparently went to pain management today for her chronic pain management she was found to be altered EMS was called and she was transferred to emergency room. She was also seen in the emergency room yesterday when she presented with painful nodules in the lower extremity she also apparently took sleeping pills,ambien and it seemed that she developed reaction to the drug, history taking was a challenge s he was somewhat slurred but able to answer questions she stated that she has a sore throat when I inspected it showed did not see any normality of significance Past Medical History Cardiac Medical History: Reports: Congestive Heart Failure, Coronary Artery Di sease, Myocardial Infarction, Hypertension, Heart Murmur Pulmonary Medical History: Reports: Asthma, Pneumonia EENT Medical History: Reports: None Neurological Medical History: Reports: Migraine, Seizures - only r/t low calcium Endocrine Medical History: Reports: Diabetes Mellitus Type 1 Renal/ Medical History: Reports: End Stage Renal Disease - On hemodialysis M-W-[id number] Malignancy Medical History: GI Medical History: Musculoskeltal Medical History: Skin Medical History: Reports: Psoriasis Psychiatric Medical History: Reports: Depression Hematology: Reports: Anemia Infectious Medical History: Past Surgical History Past Surgical History: Reports: Appendectomy, Cholecystectomy, Vascular Surgery - Lt AV Fistula and graft; Rt AV fistula Social History Lives with: Family Smoking Status: Never Smoker Electronic Cigarette use?: No Frequency of Alcohol Use: None Hx Recreational Drug Use: No Drugs: None Hx Prescription Drug Abuse: No Family History Family History: Reviewed & Not Pertinent Parental Family History Reviewed: Yes Children Family History Reviewed: Yes Sibling(s) Family History Reviewed.: Yes Medication/Allergy Home Medications: Calcium Acetate [Phoslo 667 mg Capsule] 1,334 mg PO .[id number] 09/25/19 Calcium Acetate [Phoslo 667 mg Capsule] 2,001 mg PO Q8 09/25/19 Furosemide [Lasix 80 mg Tablet] 80 mg PO Q8 09/25/19 Insulin Detemir [Levemir] 35 unit SQ BID 09/25/19 Insulin Lispro [Humalog Insulin (Lispro) 100 unit/mL] 0 unit SUBCUT .SLD SCALE 09/25/19 Nifedipine [Procardia XL 60 mg Tablet] 60 mg PO Q12 09/25/19 Oxcarbazepine [Trileptal] 300 mg PO Q12 09/25/19 Oxycodone HCl/Acetaminophen [Percocet 7.5-325 mg Tablet] 1 each PO QIDP PRN 09/25/19 Paroxetine HCl [Paxil] 80 mg PO QPM 09/25/19 Sodium Polystyrene Sulfonate [Kayexalate 15 gm/60 ml Susp 60 ml] 30 gm PO SRIVASTAVA@1000 09/25/19 Alprazolam 1 mg PO TID 10/25/19 Bumetanide [Bumex 2 mg Tablet] 2 mg PO BID 10/25/19 Metolazone 10 mg PO DAILY 10/25/19 Promethazine HCl [Phenergan 25 mg Tablet] 12.5 mg PO Q12HP PRN 10/25/19 Atorvastatin Calcium [Lipitor 80 mg Tablet] 80 mg PO QHS 11/29/19 Carvedilol [Coreg 3.125 mg Tablet] 3.125 mg PO Q12 11/29/19 Clonidine HCl [Catapres 0.1 mg Tablet] 0.1 mg PO Q8 11/29/19 Clopidogrel Bisulfate [Plavix 75 mg Tablet] 75 mg PO DAILY 11/29/19 Zolpidem Tartrate [Ambien] 10 mg PO QHS 11/29/19 Allergies/Adverse Reactions: aspirin [Aspirin] Allergy (Verified 11/05/19 12:07) Anaphylaxis ciprofloxacin [From Cipro] Allergy (Verified 11/05/19 12:07) Anaphylaxis clindamycin [Clindamycin] Allergy (Verified 11/05/19 12:07) hydrocodone [From Vicodin] Allergy (Verified 11/05/19 12:07) ibuprofen [From Motrin] Allergy (Verified 11/05/19 12:07) Anaphylaxis lidocaine [From Lidoderm] Allergy (Verified 11/05/19 12:07) Generalized rash tramadol HCl [From Ultram] Allergy (Verified 11/05/19 12:07) vancomycin [Vancomycin] Allergy (Verified 11/05/19 12:07) Shortness of Breath nitroglycerin [Nitroglycerin] Adverse Reaction (Intermediate, Verified 11/05/19 12:07) Joint pain Review of Systems Constitutional: PRESENT: anorexia, fatigue, weakness Eyes: ABSENT: visual disturbances Ears: ABSENT: hearing changes Cardiovascular: ABSENT: chest pain, dyspnea on exertion, edema, orthropnea, palpitations Respiratory: PRESENT: cough Gastrointestinal: ABSENT: abdominal pain, constipation, diarrhea, hematemesis, hematochezia, nausea, vomiting Genitourinary: ABSENT: dysuria, hematuria Musculoskeletal: ABSENT: joint swelling Integumentary: ABSENT: rash, wounds Neurological: PRESENT: dizziness, paresthesias Psychiatric: ABSENT: anxiety, depression, homidical ideation, suicidal ideation Endocrine: ABSENT: cold intolerance, heat intolerance, menstrual abnormalities, polydipsia, polyuria Physical Exam Vital Signs: Temp Pulse Resp BP Pulse Ox 99.5 F 102 H 22 H 148/65 H 96 11/29/19 20:06 11/29/19 20:06 11/29/19 20:06 11/29/19 20:06 11/29/19 20:06 Intake & Output 11/28/19 11/29/19 11/30/19 06:59 06:59 06:59 Output Total 4800 Balance -4800 General appearance: PRESENT: other - Patient is somnolent but arousable Head exam: PRESENT: atraumatic, normocephalic Eye exam: PRESENT: PERRLA Ear exam: PRESENT: normal external ear exam Neck exam: PRESENT: full ROM Respiratory exam: PRESENT: clear to auscultation freddy Cardiovascular exam: PRESENT: RRR, +S1, +S2 Vascular exam: PRESENT: normal capillary refill GI/Abdominal exam: PRESENT: normal bowel sounds, soft Rectal exam: PRESENT: deferred Neurological exam: PRESENT: alert, CN II-XII grossly intact Psychiatric exam: PRESENT: appropriate affect, normal mood Skin exam: PRESENT: erythema Results Laboratory Results: 11/29/19 11:21 11/29/19 11:21 11/29/19 11/29/19 11:21 11:21 WBC 8.0 RBC 2.86 L Hgb 7.8 L Hct 24.1 L MCV 84 MCH 27.3 MCHC 32.4 RDW 17.8 H Plt Count 338 Seg Neutrophils % 66.7 Sodium 138.4 Potassium 5.7 H Chloride 94 L Carbon Dioxide 20 L Anion Gap 24 H BUN 84 H Creatinine 16.35 H Est GFR ( Amer) 3 L Glucose 199 H Calcium 8.2 L Total Bilirubin 0.4 AST 20 Alkaline Phosphatase 131 H Total Protein 8.1 Albumin 4.2 11/29/19 11/29/19 11:21 11:21 Troponin I 0.024 NT-Pro-B Natriuret Pep 04854 H Impressions: Chest X-Ray 11/29/19 10:03 IMPRESSION: Cardiomegaly and low inspiratory lung volumes without a superimposed acute cardiopulmonary process. Assessment & Plan - Diagnosis (1) Metabolic encephalopathy Is this a current diagnosis for this admission?: Yes (13) Acute on chronic renal failure Qualifiers: Chronic kidney disease stage: on chronic dialysis (16) Acute pancreatitis Qualifiers: Pancreatitis type: unspecified pancreatitis type Acute pancreatitis complication: unspecified Qualified Code(s): K85.90 - Acute pancreatitis without necrosis or infection, unspecified (28) Acute sinusitis Qualifiers: Sinusitis location: maxillary Recurrence: recurrent Qualified Code(s): J01.01 - Acute recurrent maxillary sinusitis (29) Acute sinusitis Qualifiers: Sinusitis location: unspecified location Recurrence: not specified as recurrent Qualified Code(s): J01.90 - Acute sinusitis, unspecified (30) Anemia Qualifiers: Other causes of anemia: chronic disease, kidney (31) Anemia in chronic kidney disease (CKD) Qualifiers: Chronic kidney disease stage: on chronic dialysis Qualified Code(s): N18.6 - End stage renal disease; D63.1 - Anemia in chronic kidney disease; Z99.2 - Dependence on renal dialysis (35) Bilateral pneumonia Qualifiers: (44) Cephalgia Qualifiers: Headache type: unspecified Headache chronicity pattern: unspecified pattern Intractability: not intractable Qualified Code(s): R51 - Headache (45) Chest pain Qualifiers: Chest pain type: unspecified Qualified Code(s): R07.9 - Chest pain, unspecified (53) Constipation Qualifiers: Constipation type: unspecified constipation type Qualified Code(s): K59.00 - Constipation, unspecified (55) DKA (diabetic ketoacidoses) Qualifiers: Diabetes mellitus type: type 1 Diabetes mellitus complication detail: without coma Qualified Code(s): E10.10 - Type 1 diabetes mellitus with ketoacidosis without coma (56) DKA (diabetic ketoacidoses) Qualifiers: Diabetes mellitus type: type 1 Diabetes mellitus complication detail: without coma Qualified Code(s): E10.10 - Type 1 diabetes mellitus with ketoacidosis without coma (57) DKA (diabetic ketoacidoses) Qualifiers: Diabetes mellitus type: type 1 Diabetes mellitus complication detail: without coma Qualified Code(s): E10.10 - Type 1 diabetes mellitus with ketoacidosis without coma (58) DM (diabetes mellitus), type 1 with hyperosmolarity Qualifiers: Diabetes mellitus complication detail: without coma Qualified Code(s): E10.69 - Type 1 diabetes mellitus with other specified complication (59) Depression Qualifiers: Depression Type: major depressive disorder (61) Diabetes mellitus type 1 Qualifiers: Diabetes mellitus complication status: with neurologic complications Diabetes mellitus complication detail: with polyneuropathy Qualified Code(s): E10.42 - Type 1 diabetes mellitus with diabetic polyneuropathy (63) Diarrhea Qualifiers: Diarrhea type: unspecified type Qualified Code(s): R19.7 - Diarrhea, unspecified (66) Dyspnea Qualifiers: Dyspnea type: shortness of breath Qualified Code(s): R06.02 - Shortness of breath; R06.00 - Dyspnea, unspecified; R06.01 - Orthopnea (74) Fever Qualifiers: Fever type: unspecified Qualified Code(s): R50.9 - Fever, unspecified (77) Fluid overload, unspecified Qualifiers: Hypervolemia type: other Qualified Code(s): E87.79 - Other fluid overload (78) Headache Qualifiers: Headache type: unspecified Headache chronicity pattern: episodic headache Intractability: not intractable Qualified Code(s): R51 - Headache (89) Hypertension Qualifiers: (90) Hypertension Qualifiers: Hypertension type: unspecified Qualified Code(s): I10 - Essential (primary) hypertension (91) Hypertension Qualifiers: Hypertension type: secondary to other renal disorders Qualified Code(s): I15.1 - Hypertension secondary to other renal disorders; N28.89 - Other specified disorders of kidney and ureter (100) Leukocytosis Qualifiers: Leukocytosis type: bandemia Qualified Code(s): D72.825 - Bandemia (101) Low back pain Qualifiers: Chronicity: acute Back pain laterality: left Sciatica presence: with sciatica Sciatica laterality: sciatica of left side Qualified Code(s): M54.42 - Lumbago with sciatica, left side (112) Nausea & vomiting Qualifiers: Vomiting type: unspecified Vomiting Intractability: unspecified Qualified Code(s): R11.2 - Nausea with vomiting, unspecified (113) Nausea and vomiting Qualifiers: Vomiting type: unspecified Vomiting Intractability: non-intractable Qualified Code(s): R11.2 - Nausea with vomiting, unspecified (117) Pneumonia Qualifiers: Pneumonia type: due to unspecified organism Laterality: unspecified laterality Lung location: unspecified part of lung Qualified Code(s): J18.9 - Pneumonia, unspecified organism (118) Pneumonia Qualifiers: Pneumonia type: due to unspecified organism Laterality: bilateral Lung location: unspecified part of lung Qualified Code(s): J18.9 - Pneumonia, unspecified organism (119) Pneumonia involving right lung Qualifiers: Pneumonia type: due to unspecified organism Lung location: unspecified part of lung Qualified Code(s): J18.9 - Pneumonia, unspecified organism (121) Pulmonary edema Qualifiers: Chronicity: acute Qualified Code(s): J81.0 - Acute pulmonary edema Is this a current diagnosis for this admission?: Yes (122) Pulmonary edema Qualifiers: Chronicity: acute Qualified Code(s): J81.0 - Acute pulmonary edema (128) Sepsis Qualifiers: Sepsis type: sepsis due to unspecified organism Qualified Code(s): A41.9 - Sepsis, unspecified organism
[2019-11-29] MEDS: CARVEDILOL 3.125 MG TABLET PO SCH (22:46)
[2019-11-29] MEDS: FUROSEMIDE 80 MG TABLET PO SCH (22:46)
[2019-11-29] MEDS: CLONIDINE HCL 0.1 MG TABLET PO SCH (22:46)
[2019-11-29] MEDS: ALPRAZOLAM 0.5 MG TABLET PO SCH (22:46)
[2019-11-29] MEDS: ATORVASTATIN CALCIUM 80 MG TABLET PO SCH (22:47)
[2019-11-29] MEDS: INSULIN GLARGINE,HUM.REC.ANLOG 1,000 UNIT/10 ML VIAL SUBCUT SCH (22:47)
[2019-11-29] MEDS: HEPARIN SOD (PORCINE) 5,000 UNIT/ML 1 ML VIAL SUBCUT SCH (22:47)
[2019-11-30] MEDS: HEPARIN SOD (PORCINE) 5,000 UNIT/ML 1 ML VIAL SUBCUT SCH ×3 (05:42→21:53)
[2019-11-30] MEDS: CLONIDINE HCL 0.1 MG TABLET PO SCH ×3 (05:42→22:07)
[2019-11-30] MEDS: NIFEDIPINE 30 MG TAB.ER.24 PO SCH ×2 (05:43→17:17)
[2019-11-30 05:46] LABS: ABSOLUTE EOSINOPHILS # (AUTO) 0.3 10^3/uL (0.0-0.6); ABSOLUTE LYMPHOCYTES (AUTO) 1.7 10^3/uL (0.5-4.7); ABSOLUTE MONOCYTES (AUTO) 0.6 10^3/uL (0.1-1.4); ABSOLUTE NEUT (AUTO) 4.5 10^3/uL (1.7-8.2); BASOPHILS % (AUTO) 0.7 % (0-2); EOSINOPHILS % (AUTO) 3.8 % (0-6); HEMATOCRIT 22.9 % (36.0-47.0); LYMPHOCYTES % (AUTO) 23.9 % (13-45); MEAN CORPUSCULAR HEMOGLOBIN 27.1 pg (27.0-33.4); MEAN CORPUSCULAR HGB CONC 32.8 g/dL (32.0-36.0); MEAN CORPUSCULAR VOLUME 83 fl (80-97); MONOCYTES % (AUTO) 8.6 % (3-13); PLATELET COUNT 314 10^3/uL (150-450); RED BLOOD COUNT 2.76 10^6/uL (3.72-5.28); RED CELL DISTRIBUTION WIDTH 17.6 % (11.5-14.0); TOTAL CELLS COUNTED % (AUTO) 100 %; WHITE BLOOD COUNT 7.2 10^3/uL (4.0-10.5)
[2019-11-30 05:58] LABS: HEMOGLOBIN 7.5 g/dL (12.0-15.5)
[2019-11-30] MEDS: OXCARBAZEPINE 150 MG TABLET PO SCH ×2 (05:59→17:17)
[2019-11-30] MEDS: ALPRAZOLAM 0.5 MG TABLET PO SCH ×3 (05:59→22:08)
[2019-11-30] MEDS: FUROSEMIDE 80 MG TABLET PO SCH ×3 (06:00→22:07)
[2019-11-30 06:04] LABS: ALBUMIN 3.8 g/dL (3.5-5.0); ALKALINE PHOSPHATASE 125 U/L (38-126); ANION GAP 15 (5-19); ASPARTATE AMINO TRANSFERASE 20 U/L (14-36); BILIRUBIN,DIRECT 0.4 mg/dL (0.0-0.4); BILIRUBIN,TOTAL 0.4 mg/dL (0.2-1.3); CALCIUM 8.1 mg/dL (8.4-10.2); CARBON DIOXIDE 27 mmol/L (22-30); CHLORIDE 95 mmol/L (98-107); GLUCOSE 166 mg/dL (75-110); TOTAL PROTEIN 7.6 g/dL (6.3-8.2)
[2019-11-30 06:16] LABS: BLOOD UREA NITROGEN 45 mg/dL (7-20); POTASSIUM 4.6 mmol/L (3.6-5.0)
[2019-11-30] MEDS: METOLAZONE 5 MG TABLET PO SCH (10:06)
[2019-11-30] MEDS: BUMETANIDE 1 MG TABLET PO SCH ×2 (10:07→17:17)
[2019-11-30] MEDS: CARVEDILOL 3.125 MG TABLET PO SCH ×2 (10:07→22:07)
[2019-11-30] MEDS: CLOPIDOGREL BISULFATE 75 MG TABLET PO SCH (10:07)
[2019-11-30] MEDS: INSULIN GLARGINE,HUM.REC.ANLOG 1,000 UNIT/10 ML VIAL SUBCUT SCH ×2 (11:02→22:09)
[2019-11-30] MEDS: CALCIUM ACETATE 667 MG CAPSULE PO SCH ×3 (11:03→17:18)
--- NOTE | 2019-11-30 11:08 | RADIOLOGY REPORT (SQ) ---
EXAM DESCRIPTION: MRI HEAD WITHOUT COMPLETED DATE/TIME: 11/30/2019 10:42 am REASON FOR STUDY: confusion COMPARISON: None. TECHNIQUE: Multiplanar imaging includes non-contrasted T1, T2, FLAIR, and diffusion with ADC map seq uences. Images stored on PACS. LIMITATIONS: Extensive patient motion artifact throughout. FINDINGS: ANATOMY: No anomalies. Normal vascular flow voids. Pituitary fossa normal. CSF SPACES: Normal in size and contour. No hemorrhage. CEREBRUM: Sulci and gyri normal in size and contour. There is scattered periventricular and deep whi te matter T2/FLAIR hyperintensity, evaluation significantly limited by motion artifact. No evidence of hemorrhage, mass, or extraaxial fluid collection. POSTERIOR FOSSA: No signal alteration. No hemorrhage. No edema, masses or mass effect. Internal tobi tory canals, cerebello-pontine angles, mastoids normal. DIFFUSION IMAGING: Negative for acute or sub-acute infarction. ORBITS: No masses. Globes normal. PARANASAL SINUSES: No fluid levels. Mucosa normal. OTHER: No other significant finding. IMPRESSION: There is scattered periventricular and deep white matter T2/FLAIR hyperintensity, evalua tion significantly limited by motion artifact. Given patient age, these findings are concerning for inflammatory or infectious white matter pathology, including demyelinating disorders. Small vessel w oswald matter disease to this degree would be very unusual for patient age. Repeat MRI examination wit h reduced patient motion artifact and contrast administration may be useful to further evaluate. No evidence of acute diffusion restricting infarction. EVIDENCE OF ACUTE STROKE: NO. TECHNICAL DOCUMENTATION: JOB ID: [id number] [employer]- All Rights Reserved Reading location - IP/workstation name: [email or web address]
[2019-11-30] MEDS: PAROXETINE HCL 20 MG TABLET PO SCH (17:17)
--- NOTE | 2019-11-30 21:00 | PDOC H&P ---
History of Present Illness Admission Date/PCP: 11/29/19 13:31 HILARY HERNANDEZ MD History of Present Illness: ERICH GOODMAN is a 34 year old female, Patient came to the emergency room for evaluation of altered mental status, She apparently went to the pain clinic, she was found to be altered, EMS was called to the pain clinic and she was referred to the ER for evaluation. She was recently admitted in this hospital in October of last 2018 she was transferred to [facility] for evaluation of elevated serum troponin in the setting of hypotension and ST-T segment deviation suspicious for acute MD versus septic shock, we do not have record from [place], I am not sure exactly what she was managed for while she was in [place] but patient stated that she stayed 1 week in [place] and she was on continuous hemodialysis.She cannot recall if she had cardiac cat heterization done.I saw patient in dialysis in the hospital she was stuporous but she was able to give a history, she apparently was in the emergency room 2 days ago before this visit for evaluation of painful erythematous nodules in the lower extremities,According to the ER record she took Ambien for sleep, it seems that she has a reaction to Ambien though she stated that she did not take Ambien last night but she took Ambien 2 nights before. She is very stuporous speech is slurred, she looks like she is under the influence of medication. She also missed her dialysis on Wednesday, she is extremely bloated Past Medical History Cardiac Medical History: Reports: Congestive Heart Failure, Coronary Artery Disease, Myocardial Infarction, Hypertension, Heart Murmur Pulmonary Medical History: Reports: Asthma, Pneumonia EENT Medical History: Reports: None Neurological Medical History: Reports: Migraine, Seizures - only r/t low calcium Endocrine Medical History: Reports: Diabetes Mellitus Type 2 Renal/ Medical History: Reports: End Stage Renal Disease - On hemodialysis M-W-[id number] Malignancy Medical History: GI Medical History: Musculoskeltal Medical History: Skin Medical History: Reports: Psoriasis Psychiatric Medical History: Reports: Depression Hematology: Reports: Anemia Infectious Medical History: Past Surgical History Past Surgical History: Reports: Appendectomy, Cholecystectomy, Vascular Surgery - Lt AV Fistula and graft; Rt AV fistula Social History Lives with: Family Smoking Status: Never Smoker Electronic Cigarette use?: No Frequency of Alcohol Use: Occasional Hx Recreational Drug Use: No Drugs: None Hx Prescription Drug Abuse: No Family History Family History: Reviewed & Not Pertinent Parental Family History Reviewed: Yes Children Family History Reviewed: Yes Sibling(s) Family History Reviewed.: Yes Medication/Allergy Home Medications: Calcium Acetate [Phoslo 667 mg Capsule] 1,334 mg PO .[id number] 09/25/19 Calcium Acetate [Phoslo 667 mg Capsule] 2,001 mg PO Q8 09/25/19 Furosemide [Lasix 80 mg Tablet] 80 mg PO Q8 09/25/19 Insulin Detemir [Levemir] 35 unit SQ BID 09/25/19 Insulin Lispro [Humalog Insulin (Lispro) 100 unit/mL] 0 unit SUBCUT .SLD SCALE 09/25/19 Nifedipine [Procardia XL 60 mg Tablet] 60 mg PO Q12 09/25/19 Oxcarbazepine [Trileptal] 300 mg PO Q12 09/25/19 Oxycodone HCl/Acetaminophen [Percocet 7.5-325 mg Tablet] 1 each PO QIDP PRN 09/25/19 Paroxetine HCl [Paxil] 80 mg PO QPM 09/25/19 Sodium Polystyrene Sulfonate [Kayexalate 15 gm/60 ml Susp 60 ml] 30 gm PO SRIVASTAVA@1000 09/25/19 Alprazolam 1 mg PO TID 10/25/19 Bumetanide [Bumex 2 mg Tablet] 2 mg PO BID 10/25/19 Metolazone 10 mg PO DAILY 10/25/19 Promethazine HCl [Phenergan 25 mg Tablet] 12.5 mg PO Q12HP PRN 10/25/19 Atorvastatin Calcium [Lipitor 80 mg Tablet] 80 mg PO QHS 11/29/19 Carvedilol [Coreg 3.125 mg Tablet] 3.125 mg PO Q12 11/29/19 Clonidine HCl [Catapres 0.1 mg Tablet] 0.1 mg PO Q8 11/29/19 Clopidogrel Bisulfate [Plavix 75 mg Tablet] 75 mg PO DAILY 11/29/19 Zolpidem Tartrate [Ambien] 10 mg PO QHS 11/29/19 Allergies/Adverse Reactions: aspirin [Aspirin] Allergy (Verified 11/05/19 12:07) Anaphylaxis ciprofloxacin [From Cipro] Allergy (Verified 11/05/19 12:07) Anaphylaxis clindamycin [Clindamycin] Allergy (Verified 11/05/19 12:07) hydrocodone [From Vicodin] Allergy (Verified 11/05/19 12:07) ibuprofen [From Motrin] Allergy (Verified 11/05/19 12:07) Anaphylaxis lidocaine [From Lidoderm] Allergy (Verified 11/05/19 12:07) Generalized rash tramadol HCl [From Ultram] Allergy (Verified 11/05/19 12:07) vancomycin [Vancomycin] Allergy (Verified 11/05/19 12:07) Shortness of Breath nitroglycerin [Nitroglycerin] Adverse Reaction (Intermediate, Verified 11/05/19 12:07) Joint pain Review of Systems Constitutional: PRESENT: chills, fatigue Eyes: ABSENT: visual disturbances Ears: ABSENT: hearing changes Respiratory: ABSENT: cough, hemoptysis Gastrointestinal: ABSENT: abdominal pain, constipation, diarrhea, hematemesis, hematochezia, nausea, vomiting Genitourinary: ABSENT: dysuria, hematuria Musculoskeletal: ABSENT: joint swelling Integumentary: ABSENT: rash, wounds Neurological: PRESENT: dizziness Endocrine: ABSENT: cold intolerance, heat intolerance, menstrual abnormalities, polydipsia, polyuria Hematologic/Lymphatic: ABSENT: easy bleeding, easy bruising, lymphadenopathy Physical Exam Vital Signs: Temp Pulse Resp BP Pulse Ox 98.4 F 81 14 149/72 H 96 11/30/19 19:58 11/30/19 19:58 11/30/19 16:44 11/30/19 19:58 11/30/19 19:58 Intake & Output 11/29/19 11/30/19 12/01/19 06:59 06:59 06:59 Intake Total 520 1305 Output Total 4800 Balance -4280 1305 Weight 126.3 kg General appearance: PRESENT: obese Head exam: PRESENT: atraumatic, normocephalic Eye exam: PRESENT: PERRLA. ABSENT: scleral icterus Ear exam: PRESENT: normal external ear exam Mouth exam: PRESENT: moist, tongue midline Neck exam: PRESENT: full ROM Respiratory exam: PRESENT: clear to auscultation freddy Cardiovascular exam: PRESENT: RRR, +S1, +S2 Pulses: PRESENT: normal dorsalis pedis pul, +2 pedal pulses bilateral Vascular exam: PRESENT: normal capillary refill GI/Abdominal exam: PRESENT: normal bowel sounds, soft Rectal exam: PRESENT: deferred Neurological exam: PRESENT: alert. ABSENT: motor sensory deficit Skin exam: PRESENT: erythema. ABSENT: cyanosis, rash Results Laboratory Results: 11/30/19 05:08 11/30/19 05:08 11/30/19 11/30/19 05:08 05:08 WBC 7.2 RBC 2.76 L Hgb 7.5 L Hct 22.9 L MCV 83 MCH 27.1 MCHC 32.8 RDW 17.6 H Plt Count 314 Seg Neutrophils % 63.0 Sodium 137.4 Potassium 4.6 D Chloride 95 L Carbon Dioxide 27 Anion Gap 15 BUN 45 H D Creatinine 11.01 H Est GFR ( Amer) 5 L Glucose 166 H Calcium 8.1 L Total Bilirubin 0.4 AST 20 Alkaline Phosphatase 125 Total Protein 7.6 Albumin 3.8 11/29/19 11/29/19 11:21 11:21 Troponin I 0.024 NT-Pro-B Natriuret Pep [id number] H Impressions: Chest X-Ray 11/29/19 10:03 IMPRESSION: Cardiomegaly and low inspiratory lung volumes without a superimposed acute cardiopulmonary process. Head MRI 11/30/19 00:00 IMPRESSION: There is scattered periventricular and deep white matter T2/FLAIR hyperintensity, evaluation significantly limited by motion artifact. Given patient age, these findings are concerning for inflammatory or infectious white matter pathology, including demyelinating disorders. Small vessel white matter disease to this degree would be very unusual for patient age. Repeat MRI examination with reduced patient motion artifact and contrast administration may be useful to further evaluate. No evidence of acute diffusion restricting infarction. EVIDENCE OF ACUTE STROKE: NO. Assessment & Plan - Diagnosis (1) Metabolic encephalopathy Is this a current diagnosis for this admission?: Yes Plan: She has metabolic encephalopathy with a long differential diagnosis (2) Bilateral lower extremity edema Is this a current diagnosis for this admission?: Yes (3) ESRD on dialysis Is this a current diagnosis for this admission?: Yes (13) Acute on chronic renal failure Qualifiers: Chronic kidney disease stage: on chronic dialysis (16) Acute pancreatitis Qualifiers: Pancreatitis type: unspecified pancreatitis type Acute pancreatitis complication: unspecified Qualified Code(s): K85.90 - Acute pancreatitis without necrosis or infection, unspecified (28) Acute sinusitis Qualifiers: Sinusitis location: maxillary Recurrence: recurrent Qualified Code(s): J0 1.01 - Acute recurrent maxillary sinusitis (29) Acute sinusitis Qualifiers: Sinusitis location: unspecified location Recurrence: not specified as recurrent Qualified Code(s): J01.90 - Acute sinusitis, unspecified (30) Anemia Qualifiers: Other causes of anemia: chronic disease, kidney (31) Anemia in chronic kidney disease (CKD) Qualifiers: Chronic kidney disease stage: on chronic dialysis Qualified Code(s): N18.6 - End stage renal disease; D63.1 - Anemia in chronic kidney disease; Z99.2 - Dependence on renal dialysis Is this a current diagnosis for this admission?: Yes (35) Bilateral pneumonia Qualifiers: (44) Cephalgia Qualifiers: Headache type: unspecified Headache chronicity pattern: unspecified pattern Intractability: not intractable Qualified Code(s): R51 - Headache (45) Chest pain Qualifiers: Chest pain type: unspecified Qualified Code(s): R07.9 - Chest pain, unspecified (53) Constipation Qualifiers: Constipation type: unspecified constipation type Qualified Code(s): K59.00 - Constipation, unspecified (55) DKA (diabetic ketoacidoses) Qualifiers: Diabetes mellitus type: type 1 Diabetes mellitus complication detail: without coma Qualified Code(s): E10.10 - Type 1 diabetes mellitus with ketoacidosis without coma (56) DKA (diabetic ketoacidoses) Qualifiers: Diabetes mellitus type: type 1 Diabetes mellitus complication detail: without coma Qualified Code(s): E10.10 - Type 1 diabetes mellitus with ketoacidosis without coma (57) DKA (diabetic ketoacidoses) Qualifiers: Diabetes mellitus type: type 1 Diabetes mellitus complication detail: without coma Qualified Code(s): E10.10 - Type 1 diabetes mellitus with k etoacidosis without coma (58) DM (diabetes mellitus), type 1 with hyperosmolarity Qualifiers: Diabetes mellitus complication detail: without coma Qualified Code(s): E10.69 - Type 1 diabetes mellitus with other specified complication (59) Depression Qualifiers: Depression Type: major depressive disorder (61) Diabetes mellitus type 1 Qualifiers: Diabetes mellitus complication status: with neurologic complications Diabet es mellitus complication detail: with polyneuropathy Qualified Code(s): E10.42 - Type 1 diabetes mellitus with diabetic polyneuropathy (62) Diabetes mellitus type 1 with complications Is this a current diagnosis for this admission?: Yes (63) Diarrhea Qualifiers: Diarrhea type: unspecified type Qualified Code(s): R19.7 - Diarrhea, unspecified (65) Dysphagia, unspecified Is this a current diagnosis for this admission?: Yes (66) Dyspnea Qualifiers: Dyspnea type: shortness of breath Qualified Code(s): R06.02 - Shortness of breath; R06.00 - Dyspnea, unspecified; R06.01 - Orthopnea (74) Fever Qualifiers: Fever type: unspecified Qualified Code(s): R50.9 - Fever, unspecified (77) Fluid overload, unspecified Qualifiers: Hypervolemia type: other Qualified Code(s): E87.79 - Other fluid overload (78) Headache Qualifiers: Headache type: unspecified Headache chronicity pattern: episodic headache Intractability: not intractable Qualified Code(s): R51 - Headache (89) Hypertension Qualifiers: Is this a current diagnosis for this admission?: Yes (90) Hypertension Qualifiers: Hypertension type: unspecified Qualified Code(s): I10 - Essential (primary) hypertension (91) Hypertension Qualifiers: Hypertension type: secondary to other renal disorders Qualified Code(s): I15.1 - Hypertension secondary to other renal disorders; N28.89 - Other specified disorders of kidney and ureter (92) Hypocalcemia Is this a current diagnosis for this admission?: Yes (99) Leg pain, bilateral Is this a current diagnosis for this admission?: Yes (100) Leukocytosis Qualifiers: Leukocytosis type: bandemia Qualified Code(s): D72.825 - Bandemia (101) Low back pain Qualifiers: Chronicity: acute Back pain laterality: left Sciatica presence: with sciatica Sciatica laterality: sciatica of left side Qualified Code(s): M54.42 - Lumbago with sciatica, left side (112) Nausea & vomiting Qualifiers: Vomiting type: unspecified Vomiting Intractability: unspecified Qualified Code(s): R11.2 - Nausea with vomiting, unspecified (113) Nausea and vomiting Qualifiers: Vomiting type: unspecified Vomiting Intractability: non-intractable Qualified Code(s): R11.2 - Nausea with vomiting, unspecified (117) Pneumonia Qualifiers: Pneumonia type: due to unspecified organism Laterality: unspecified laterality Lung location: unspecified part of lung Qualified Code(s): J18.9 - Pneumonia, unspecified organism (118) Pneumonia Qualifiers: Pneumonia type: due to unspecified organism Laterality: bilateral Lung location: unspecified part of lung Qualified Code(s): J18.9 - Pneumonia, unspecified organism (119) Pneumonia involving right lung Qualifiers: Pneumonia type: due to unspecified organism Lung location: unspecified part of lung Qualified Code(s): J18.9 - Pneumonia, unspecified organism (121) Pulmonary edema Qualifiers: Chronicity: acute Qualified Code(s): J81.0 - Acute pulmonary edema (122) Pulmonary edema Qualifiers: Chronicity: acute Qualified Code(s): J81.0 - Acute pulmonary edema (128) Sepsis Qualifiers: Sepsis type: sepsis due to unspecified organism Qualified Code(s): A41.9 - Sepsis, unspecified organism
--- NOTE | 2019-11-30 21:13 | PDOC PROGRESS REPORT ---
Subjective Progress Note for:: 11/30/19 Subjective:: Patient seen by the bedside, MRI brain was done today it was a poor study because of motion artifact, she is more alert today and responsive Reason For Visit: UNSPECIFIED ENEPHALOPATHY,ESRD .ERYTHEMA NODULAR Physical Exam Vital Signs: Temp Pulse Resp BP Pulse Ox 98.4 F 81 14 149/72 H 96 11/30/19 19:58 11/30/19 19:58 11/30/19 16:44 11/30/19 19:58 11/30/19 19:58 Intake & Output 11/29/19 11/30/19 12/01/19 06:59 06:59 06:59 Intake Total 520 1305 Output Total 4800 Balance -4280 1305 Weight 126.3 kg General appearance: PRESENT: no acute distress Eye exam: PRESENT: PERRLA Respiratory exam: PRESENT: clear to auscultation freddy Cardiovascular exam: PRESENT: +S1, +S2 GI/Abdominal exam: PRESENT: soft Results Laboratory Results: 11/30/19 05:08 11/30/19 05:08 11/30/19 11/30/19 05:08 05:08 WBC 7.2 RBC 2.76 L Hgb 7.5 L Hct 22.9 L MCV 83 MCH 27.1 MCHC 32.8 RDW 17.6 H Plt Count 314 Seg Neutrophils % 63.0 Sodium 137.4 Potassium 4.6 D Chloride 95 L Carbon Dioxide 27 Anion Gap 15 BUN 45 H D Creatinine 11.01 H Est GFR ( Amer) 5 L Glucose 166 H Calcium 8.1 L Total Bilirubin 0.4 AST 20 Alkaline Phosphatase 125 Total Protein 7.6 Albumin 3.8 11/29/19 11/29/19 11:21 11:21 Troponin I 0.024 NT-Pro-B Natriuret Pep 54047 H Impressions: Chest X-Ray 11/29/19 10:03 IMPRESSION: Cardiomegaly and low inspiratory lung volumes without a superimposed acute cardiopulmonary process. Head MRI 11/30/19 00:00 IMPRESSION: There is scattered periventricular and deep white matter T2/FLAIR hyperintensity, evaluation significantly limited by motion artifact. Given patient age, these findings are concerning for inflammatory or infectious white matter pathology, including demyelinating disorders. Small vessel white matter disease to this degree would be very unusual for patient age. Repeat MRI examination with reduced patient motion artifact and contrast administration may be useful to further evaluate. No evidence of acute diffusion restricting infarction. EVIDENCE OF ACUTE STROKE: NO. Assessment & Plan - Diagnosis (1) Metabolic encephalopathy Is this a current diagnosis for this admission?: Yes (2) Bilateral lower extremity edema Is this a current diagnosis for this admission?: No (3) ESRD on dialysis Is this a current diagnosis for this admission?: Yes (4) Shortness of breath Is this a current diagnosis for this admission?: No (5) Acute anemia Is this a current diagnosis for this admission?: Yes (6) Acute diastolic (congestive) heart failure Is this a current diagnosis for this admission?: No (7) Acute hypoxemic respiratory failure Is this a current diagnosis for this admission?: Yes (10) Acute on chronic renal failure Qualifiers: Chronic kidney disease stage: on chronic dialysis Is this a current diagnosis for this admission?: No (12) Acute pancreatitis Qualifiers: Pancreatitis type: unspecified pancreatitis type Acute pancreatitis complication: unspecified Qualified Code(s): K85.90 - Acute pancreatitis without necrosis or infection, unspecified (19) Acute sinusitis Qualifiers: Sinusitis location: unspecified location Recurrence: not specified as recurrent Qualified Code(s): J01.90 - Acute sinusitis, unspecified (20) Anemia Qualifiers: Other causes of anemia: chronic disease, kidney (21) Anemia in chronic kidney disease (CKD) Qualifiers: Chronic kidney disease stage: on chronic dialysis Qualified Code(s): N18.6 - End stage renal disease; D63.1 - Anemia in chronic kidney disease; Z99.2 - De pendence on renal dialysis Is this a current diagnosis for this admission?: Yes (25) Bilateral pneumonia Qualifiers: (34) Cephalgia Qualifiers: Headache type: unspecified Headache chronicity pattern: unspecified pattern Intractability: not intractable Qualified Code(s): R51 - Headache (35) Chest pain Qualifiers: Chest pain type: unspecified Qualified Code(s): R07.9 - Chest pain, unspecified (43) Constipation Qualifiers: Constipation type: unspecified constipation type Qualified Code(s): K59.00 - Constipation, unspecified (45) DKA (diabetic ketoacidoses) Qualifiers: Diabetes mellitus type: type 1 Diabetes mellitus complication detail: without coma Qualified Code(s): E10.10 - Type 1 diabetes mellitus with ketoacidosis without coma (46) DKA (diabetic ketoacidoses) Qualifiers: Diabetes mellitus type: type 1 Diabetes mellitus complication detail: without coma Qualified Code(s): E10.10 - Type 1 diabetes mellitus with ketoacidosis without coma (47) DKA (diabetic ketoacidoses) Qualifiers: Diabetes mellitus type: type 1 Diabetes mellitus complication detail: without coma Qualified Code(s): E10.10 - Type 1 diabetes mellitus with ketoacidosis without coma (48) DM (diabetes mellitus), type 1 with hyperosmolarity Qualifiers: Diabetes mellitus complication detail: without coma Qualified Code(s): E10.69 - Type 1 diabetes mellitus with other specified complication (49) Depression Qualifiers: Depression Type: major depressive disorder (51) Diabetes mellitus type 1 Qualifiers: Diabetes mellitus complication status: with neurologic complications Diabetes mellitus complication detail: with polyneuropathy Qualified Code(s): E10.42 - Type 1 diabetes mellitus with diabetic polyneuropathy (52) Diabetes mellitus type 1 with complications Is this a current diagnosis for this admission?: Yes (53) Diarrhea Qualifiers: Diarrhea type: unspecified type Qualified Code(s): R19.7 - Diarrhea, unspecified (55) Dysphagia, unspecified Is this a current diagnosis for this admission?: Yes (56) Dyspnea Qualifiers: Dyspnea type: shortness of breath Qualified Code(s): R06.02 - Shortness of breath; R06.00 - Dyspnea, unspecified; R06.01 - Orthopnea (64) Fever Qualifiers: Fever type: unspecified Qualified Code(s): R50.9 - Fever, unspecified (67) Fluid overload, unspecified Qualifiers: Hypervolemia type: other Qualified Code(s): E87.79 - Other fluid overload (68) Headache Qualifiers: Headache type: unspecified Headache chronicity pattern: episodic headache Intractability: not intractable Qualified Code(s): R51 - Headache (79) Hypertension Qualifiers: Is this a current diagnosis for this admission?: Yes (80) Hypertension Qualifiers: Hypertension type: unspecified Qualified Code(s): I10 - Essential (primary) hypertension (81) Hypertension Qualifiers: Hypertension type: secondary to other renal disorders Qualified Code(s): I15.1 - Hypertension secondary to other renal disorders; N28.89 - Other specified disorders of kidney and ureter (82) Hypocalcemia Is this a current diagnosis for this admission?: Yes (89) Leg pain, bilateral Is this a current diagnosis for this admission?: Yes (90) Leukocytosis Qualifiers: Leukocytosis type: bandemia Qualified Code(s): D72.825 - Bandemia (91) Low back pain Qualifiers: Chronicity: acute Back pain laterality: left Sciatica presence: with sciatica Sciatica laterality: sciatica of left side Qualified Code(s): M54.42 - Lumbago with sciatica, left side (102) Nausea & vomiting Qualifiers: Vomiting type: unspecified Vomiting Intractability: unspecified Qualified Code(s): R11.2 - Nausea with vomiting, unspecified (103) Nausea and vomiting Qualifiers: Vomiting type: unspecified Vomiting Intractability: non-intractable Qualified Code(s): R11.2 - Nausea with vomiting, unspecified (107) Pneumonia Qualifiers: Pneumonia type: due to unspecified organism Laterality: unspecified laterality Lung location: unspecified part of lung Qualified Code(s): J18.9 - Pneumonia, unspecified organism (108) Pneumonia Qualifiers: Pneumonia type: due to unspecified organism Laterality: bilateral Lung location: unspecified part of lung Qualified Code(s): J18.9 - Pneumonia, unspecified organism (109) Pneumonia involving right lung Qualifiers: Pneumonia type: due to unspecified organism Lung location: unspecified part of lung Qualified Code(s): J18.9 - Pneumonia, unspecified organism (111) Pulmonary edema Qualifiers: Chronicity: acute Qualified Code(s): J81.0 - Acute pulmonary edema (112) Pulmonary edema Qualifiers: Chronicity: acute Qualified Code(s): J81.0 - Acute pulmonary edema (118) Sepsis Qualifiers: Sepsis type: sepsis due to unspecified organism Qualified Code(s): A41.9 - Sepsis, unspecified organism - Time Time Spent with patient: 15-24 minutes
[2019-11-30] MEDS ORDERED: INSULIN GLARGINE,HUM.REC.ANLOG 1,000 UNIT/10 ML VIAL (PYX) SUBCUT ONE ×2 (22:04→22:15)
[2019-11-30] MEDS: ATORVASTATIN CALCIUM 80 MG TABLET PO SCH (22:08)
[2019-12-01] MEDS ORDERED: HEPARIN SOD (PORCINE) 1,000 UNIT/ML 10 ML VIAL IV PRN (05:00)
[2019-12-01] MEDS ORDERED: EPOETIN ALFA-EPBX 20,000 UNIT in SYRINGE, DISPOSABLE, 1 EACH IV PRN (05:00)
[2019-12-01] MEDS: FUROSEMIDE 80 MG TABLET PO SCH ×2 (05:33→14:00)
[2019-12-01] MEDS: NIFEDIPINE 30 MG TAB.ER.24 PO SCH ×2 (05:33→17:43)
[2019-12-01] MEDS: OXCARBAZEPINE 150 MG TABLET PO SCH ×2 (05:33→17:43)
[2019-12-01] MEDS: CLONIDINE HCL 0.1 MG TABLET PO SCH ×2 (05:34→13:36)
[2019-12-01] MEDS: HEPARIN SOD (PORCINE) 5,000 UNIT/ML 1 ML VIAL SUBCUT SCH ×2 (05:34→14:00)
[2019-12-01] MEDS: ALPRAZOLAM 0.5 MG TABLET PO SCH ×2 (05:34→13:36)
[2019-12-01 06:08] LABS: ABSOLUTE BASOPHILS # (AUTO) 0.1 10^3/uL (0.0-0.2); ABSOLUTE EOSINOPHILS # (AUTO) 0.3 10^3/uL (0.0-0.6); ABSOLUTE LYMPHOCYTES (AUTO) 2.2 10^3/uL (0.5-4.7); ABSOLUTE MONOCYTES (AUTO) 0.8 10^3/uL (0.1-1.4); ABSOLUTE NEUT (AUTO) 3.6 10^3/uL (1.7-8.2); BASOPHILS % (AUTO) 0.8 % (0-2); HEMATOCRIT 23.3 % (36.0-47.0); LYMPHOCYTES % (AUTO) 31.6 % (13-45); MEAN CORPUSCULAR HEMOGLOBIN 26.4 pg (27.0-33.4); MEAN CORPUSCULAR HGB CONC 31.8 g/dL (32.0-36.0); MEAN CORPUSCULAR VOLUME 83 fl (80-97); MONOCYTES % (AUTO) 10.9 % (3-13); PLATELET COUNT 343 10^3/uL (150-450); RED BLOOD COUNT 2.81 10^6/uL (3.72-5.28); RED CELL DISTRIBUTION WIDTH 17.6 % (11.5-14.0); SEGMENTED NEUTROPHILS % (AUTO) 51.7 % (42-78); TOTAL CELLS COUNTED % (AUTO) 100 %; WHITE BLOOD COUNT 6.9 10^3/uL (4.0-10.5)
[2019-12-01 06:18] LABS: HEMOGLOBIN 7.4 g/dL (12.0-15.5)
[2019-12-01 06:28] LABS: BLOOD UREA NITROGEN 60 mg/dL (7-20); CALCIUM 8.7 mg/dL (8.4-10.2); GLUCOSE 194 mg/dL (75-110); PHOSPHORUS 8.8 mg/dL (2.5-4.5)
[2019-12-01 06:33] LABS: ANION GAP 19 (5-19); CARBON DIOXIDE 26 mmol/L (22-30); CHLORIDE 91 mmol/L (98-107)
[2019-12-01 07:56] LABS: HEPATITS B SURFACE ANTIGEN Negative (Negative)
--- NOTE | 2019-12-01 08:29 | PDOC PROGRESS REPORT ---
Subjective Progress Note for:: 11/30/19 Subjective:: Patient seen by the bedside, she is much better today,MRI of the brain demonstrated no specific lesions in the white matter but there was tremendous motion artifact Reason For Visit: UNSPECIFIED ENEPHALOPATHY,ESRD .ERYTHEMA NODULAR Physical Exam Vital Signs: Temp Pulse Resp BP Pulse Ox 98.6 F 80 16 122/67 100 12/01/19 00:00 12/01/19 04:28 12/01/19 00:00 12/01/19 04:28 12/01/19 04:28 Intake & Output 11/30/19 12/01/19 12/02/19 06:59 06:59 06:59 Intake Total 520 1425 Output Total 4800 Balance -4280 1425 Weight 126.3 kg 130.1 kg General appearance: PRESENT: no acute distress Eye exam: PRESENT: PERRLA Respiratory exam: PRESENT: clear to auscultation freddy Cardiovascular exam: PRESENT: +S1, +S2 GI/Abdominal exam: PRESENT: soft Neurological exam: PRESENT: alert Results Laboratory Results: 12/01/19 05:27 12/01/19 05:27 12/01/19 12/01/19 05:27 05:27 WBC 6.9 RBC 2.81 L Hgb 7.4 L Hct 23.3 L MCV 83 MCH 26.4 L MCHC 31.8 L RDW 17.6 H Plt Count 343 Seg Neutrophils % 51.7 Sodium 136.0 L Potassium 5.0 Chloride 91 L Carbon Dioxide 26 Anion Gap 19 BUN 60 H Creatinine 12.52 H Est GFR ( Amer) 4 L Glucose 194 H Calcium 8.7 Phosphorus 8.8 H 11/29/19 11/29/19 11:21 11:21 Troponin I 0.024 NT-Pro-B Natriuret Pep 53125 H Impressions: Chest X-Ray 11/29/19 10:03 IMPRESSION: Cardiomegaly and low inspiratory lung volumes without a superimposed acute cardiopulmonary process. Head MRI 11/30/19 00:00 IMPRESSION: There is scattered periventricular and deep white matter T2/FLAIR hyperintensity, evaluation significantly limited by motion artifact. Given patient age, these findings are concerning for inflammatory or infectious white matter pathology, including demyelinating disorders. Small vessel white matter disease to this degree would be very unusual for patient age. Repeat MRI examination with reduced patient motion artifact and contrast administration may be useful to further evaluate. No evidence of acute diffusion restricting i nfarction. EVIDENCE OF ACUTE STROKE: NO. Assessment & Plan - Diagnosis (1) Metabolic encephalopathy Is this a current diagnosis for this admission?: Yes Plan: The potential diagnosis includes medication, electrolyte derangements, volume overload. - Time Time Spent with patient: 15-24 minutes
[2019-12-01 09:35] LABS: HEPATITIS B CORE AB TOT Negative (Negative)
[2019-12-01] MEDS: CALCIUM ACETATE 667 MG CAPSULE PO SCH ×3 (12:29→17:42)
[2019-12-01] MEDS: BUMETANIDE 1 MG TABLET PO SCH ×2 (13:35→17:42)
[2019-12-01] MEDS: CLOPIDOGREL BISULFATE 75 MG TABLET PO SCH (13:37)
[2019-12-01] MEDS: METOLAZONE 5 MG TABLET PO SCH (13:50)
[2019-12-01] MEDS: INSULIN GLARGINE,HUM.REC.ANLOG 1,000 UNIT/10 ML VIAL SUBCUT SCH (13:57)
[2019-12-01] MEDS: CARVEDILOL 3.125 MG TABLET PO SCH (14:01)
[2019-12-01 15:02] LABS: ANTINUCLEAR ANTIBODIES Negative (Negative)
[2019-12-01 15:53] VITALS: BP 117/60
--- NOTE | 2019-12-01 16:00 | PDOC PROGRESS REPORT ---
Subjective Progress Note for:: 12/01/19 Subjective:: I am seeing the patient during dialysis treatment. Patient is sleeping through out most of the dialysis. She is however arousable and answers questions. She feels better but she still feels tired. She denies any shortness of breath. Her lower extremity pain seems to be improved as well. Currently she is tolerating dialysis including ultrafiltration. Reason For Visit: UNSPECIFIED ENEPHALOPATHY,ESRD .ERYTHEMA NODULAR Physical Exam Vital Signs: Temp Pulse Resp BP Pulse Ox 98.4 F 77 20 121/59 L 95 12/01/19 08:00 12/01/19 08:00 12/01/19 08:00 12/01/19 08:00 12/01/19 08:00 Intake & Output 11/30/19 12/01/19 12/02/19 06:59 06:59 06:59 Intake Total 520 1425 Output Total 4800 Balance -4280 1425 Weight 126.3 kg 130.1 kg Vitals during dialysis: Blood pressure 133/67, pulse rate of 73, blood flow rate of 450 mL/min and dialysate flow rate of 800 mL/min Exam: General appearance: PRESENT: no acute distress, cooperative, well-developed, well-nourished Head exam: PRESENT: atraumatic, normocephalic, improved facial swelling Eye exam: PRESENT: conjunctiva pale PERRLA. Improved periorbital edema ABSENT: scleral icterus Neck exam: ABSENT: JVD Respiratory exam: PRESENT: Normal breath sounds. ABSENT: crackles, rales, rhonchi, unlabored, wheezes Cardiovascular exam: PRESENT: Regular rate rhythm -+S1, +S2. ABSENT: diastolic murmur, systolic murmur GI/Abdominal exam: PRESENT: normal bowel sounds, soft. ABSENT: guarding, mass, tenderness Extremities exam: A grade 2 bilateral lower extremity pitting edema; lower extremity pain seems to be improved compared to Wednesday. Neurological exam: PRESENT: alert, awake, oriented to person, place and time. Skin exam: PRESENT: dry, warm, she still has the erythematous macular rashes in her lower extremities plus lesions consistent with folliculitis. Results Laboratory Results: 12/01/19 05:27 12/01/19 05:27 12/01/19 12/01/19 05:27 05:27 WBC 6.9 RBC 2.81 L Hgb 7.4 L Hct 23.3 L MCV 83 MCH 26.4 L MCHC 31.8 L RDW 17.6 H Plt Count 343 Seg Neutrophils % 51.7 Sodium 136.0 L Potassium 5.0 Chloride 91 L Carbon Dioxide 26 Anion Gap 19 BUN 60 H Creatinine 12.52 H Est GFR ( Amer) 4 L Glucose 194 H Calcium 8.7 Phosphorus 8.8 H 11/29/19 11/29/19 11:21 11:21 Troponin I 0.024 NT-Pro-B Natriuret Pep 67889 H Impressions: Chest X-Ray 11/29/19 10:03 IMPRESSION: Cardiomegaly and low inspiratory lung volumes without a superimposed acute cardiopulmonary process. Head MRI 11/30/19 00:00 IMPRESSION: There is scattered periventricular and deep white matter T2/FLAIR hyperintensity, evaluation significantly limited by motion artifact. Given patient age, these findings are concerning for inflammatory or infectious white matter pathology, including demyelinating disorders. Small vessel white matter disease to this degree would be very unusual for patient age. Repeat MRI examination with reduced patient motion artifact and contrast administration may be useful to further evaluate. No evidence of acute diffusion restricting infarction. EVIDENCE OF ACUTE STROKE: NO. Assessment & Plan - Diagnosis (1) ESRD on dialysis Is this a current diagnosis for this admission?: Yes Plan: We will do dialysis today for 3 hours, using the patient's AV fistula, with 2 potassium bath, blood flow rate of 450 mL per minute, dialysate flow rate of 800 mL per minute, ultrafiltration 5 to 6 L as tolerated, no heparin and Procrit with 20,000 units during dialysis intravenously. Patient is monitored throughout dialysis treatment. Ultrafiltration is adjusted according to her blood pressure. (2) Hyperkalemia Is this a current diagnosis for this admission?: Yes Plan: Resolve with dialysis. (3) Bilateral lower extremity edema Is this a current diagnosis for this admission?: Yes (4) Leg pain, bilateral Is this a current diagnosis for this admission?: Yes Plan: Possibly due to neuropathy. (5) Skin rash Is this a current diagnosis for this admission?: Yes Plan: Her ENZO and rheumatoid factor are negative. Her hepatitis B surface antigen and hepatitis C antibody are negative she has hepatitis B surface antibody. Vasculitis work-up still pending. (6) Anemia in chronic kidney disease (CKD) Qualifiers: Chronic kidney disease stage: on chronic dialysis Qualified Code(s): N18.6 - End stage renal disease; D63.1 - Anemia in chronic kidney disease; Z99.2 - Dependence on renal dialysis Is this a current diagnosis for this admission?: Yes Plan: Retacrit given on dialysis. 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 (10) Hypocalcemia Is this a current diagnosis for this admission?: Yes Plan: Now within normal limits. - Time Time with patient: 15-25 minutes
[2019-12-01] MEDS: PAROXETINE HCL 20 MG TABLET PO SCH (17:42)
--- NOTE | 2019-12-01 20:25 | PDOC DISCHARGE SUMMARY ---
Impression - Admit/DC Date/PCP Admission Date/Primary Care Provider: 11/29/19 13:31 HILARY HERNANDEZ MD Discharge Date: 12/01/19 - Discharge Diagnosis (1) Metabolic encephalopathy Is this a current diagnosis for this admission?: Yes (2) End stage renal disease on dialysis Is this a current diagnosis for this admission?: Yes - Additional Information Discharge Diet: As Tolerated Discharge Activity: Activity As Tolerated Referrals: HILARY HERNANDEZ MD [Primary Care Provider] - Follow up as needed Home Medications: RX: Calcium Acetate [Phoslo 667 mg Capsule] 1,334 mg PO .BIDWITHSNACKS 09/25/19 RX: Calcium Acetate [Phoslo 667 mg Capsule] 2,001 mg PO Q8 09/25/19 RX: Furosemide [Lasix 80 mg Tablet] 80 mg PO Q8 09/25/19 RX: Insulin Detemir [Levemir] 35 unit SQ BID 09/25/19 RX: Insulin Lispro [Humalog Insulin (Lispro) 100 unit/mL] 0 unit SUBCUT .SLD SCALE 09/25/19 RX: Nifedipine [Procardia XL 60 mg Tablet] 60 mg PO Q12 09/25/19 RX: Oxcarbazepine [Trileptal] 300 mg PO Q12 09/25/19 RX: Oxycodone HCl/Acetaminophen [Percocet 7.5-325 mg Tablet] 1 each PO QIDP PRN 09/25/19 RX: Paroxetine HCl [Paxil] 80 mg PO QPM 09/25/19 RX: Sodium Polystyrene Sulfonate [Kayexalate 15 gm/60 ml Susp 60 ml] 30 gm PO SRIVASTAVA@1000 09/25/19 RX: Alprazolam 1 mg PO TID 10/25/19 RX: Bumetanide [Bumex 2 mg Tablet] 2 mg PO BID 10/25/19 RX: Metolazone 10 mg PO DAILY 10/25/19 RX: Promethazine HCl [Phenergan 25 mg Tablet] 12.5 mg PO Q12HP PRN 10/25/19 RX: Atorvastatin Calcium [Lipitor 80 mg Tablet] 80 mg PO QHS 11/29/19 RX: Carvedilol [Coreg 3.125 mg Tablet] 3.125 mg PO Q12 11/29/19 RX: Clonidine HCl [Catapres 0.1 mg Tablet] 0.1 mg PO Q8 11/29/19 RX: Clopidogrel Bisulfate [Plavix 75 mg Tablet] 75 mg PO DAILY 11/29/19 History of Present Illiness History of Present Illness: ERICH GOODMAN is a 34 year old female, Patient came to the emergency room for evaluation of altered mental status, She apparently went to the pain clinic, she was found to be altered, EMS was called to the pain clinic and she was referred to the ER for evaluation. She was recently admitted in this hospital in October of last year, 2018 she was transferred to [facility] for evaluation of elevated serum troponin in the setting of hypotension and ST-T segment deviation suspicious for acute AL versus septic shock, we do not have record from [place], I am not sure exactly what she was managed for while she was in [place] but patient stated that she stayed 1 week in [place] and she was on continuous hemodialysis.She cannot recall if she had cardiac catheterization done.I saw patient in dialysis in the hospital she was stuporous but she was able to give a history, she apparently was in the emergency room 2 days ago before this visit for evaluation of painful erythematous nodules in the lower extremities,According to the ER record she took Ambien for sleep, it seems that she has a reaction to Ambien though she stated that she did not take Ambien last night but she took Ambien 2 nights before. She is very stuporous speech is slurred, she looks like she is under the influence of medication. She also missed her dialysis on Wednesday, she is extremely bloated Hospital Course Hospital Course: Patient was admitted for the management of metabolic encephalopathy with a background of end-stage kidney disease on maintenance hemodialysis. She was seen by nephrology she underwent hemodialysis on this admission, the potential etiology of the metabolic encephalopathy was medication, Ambien. MRI brain was obtained it was a poor study because of motion artifact. Patient stated that she want to be discharged home today because her autistic child is having a feet and she has to go home to take care of him. Physical Exam Vital Signs: Temp Pulse Resp BP Pulse Ox 97.6 F 93 16 117/60 99 12/01/19 19:33 12/01/19 19:33 12/01/19 19:33 12/01/19 19:33 12/01/19 19:33 Intake & Output 11/30/19 12/01/19 12/02/19 06:59 06:59 06:59 Intake Total 520 1425 506 Output Total 4800 6000 Balance -4289 2755 -6123 Weight 126.3 kg 130.1 kg General appearance: PRESENT: no acute distress Eye exam: PRESENT: PERRLA Respiratory exam: PRESENT: clear to auscultation freddy Cardiovascular exam: PRESENT: +S1, +S2 GI/Abdominal exam: PRESENT: soft Neurological exam: PRESENT: alert Results Laboratory Results: WBC 6.9 10^3/uL (4.0-10.5) 12/01/19 05:27 RBC 2.81 10^6/uL (3.72-5.28) L 12/01/19 05:27 Hgb 7.4 g/dL (12.0-15.5) L 12/01/19 05:27 Hct 23.3 % (36.0-47.0) L 12/01/19 05:27 MCV 83 fl (80-97) 12/01/19 05:27 MCH 26.4 pg (27.0-33.4) L 12/01/19 05:27 MCHC 31.8 g/dL (32.0-36.0) L 12/01/19 05:27 RDW 17.6 % (11.5-14.0) H 12/01/19 05:27 Plt Count 343 10^3/uL (150-450) 12/01/19 05:27 Lymph % (Auto) 31.6 % (13-45) 12/01/19 05:27 Yates % (Auto) 10.9 % (3-13) 12/01/19 05:27 Eos % (Auto) 5.0 % (0-6) 12/01/19 05:27 Baso % (Auto) 0.8 % (0-2) 12/01/19 05:27 Absolute Neuts (auto) 3.6 10^3/uL (1.7-8.2) 12/01/19 05:27 Absolute Lymphs (auto) 2.2 10^3/uL (0.5-4.7) 12/01/19 05:27 Absolute Monos (auto) 0.8 10^3/uL (0.1-1.4) 12/01/19 05:27 Absolute Eos (auto) 0.3 10^3/uL (0.0-0.6) 12/01/19 05:27 Absolute Basos (auto) 0.1 10^3/uL (0.0-0.2) 12/01/19 05:27 Seg Neutrophils % 51.7 % (42-78) 12/01/19 05:27 Sodium 136.0 mmol/L (137-145) L 12/01/19 05:27 Potassium 5.0 mmol/L (3.6-5.0) 12/01/19 05:27 Chloride 91 mmol/L (98-107) L 12/01/19 05:27 Carbon Dioxide 26 mmol/L (22-30) 12/01/19 05:27 Anion Gap 19 (5-19) 12/01/19 05:27 BUN 60 mg/dL (7-20) H 12/01/19 05:27 Creatinine 12.52 mg/dL (0.52-1.25) H 12/01/19 05:27 Est GFR ( Amer) 4 (>60) L 12/01/19 05:27 Est GFR (MDRD) Non-Af 3 (>60) L 12/01/19 05:27 Glucose 194 mg/dL (75-110) H 12/01/19 05:27 POC Glucose 138 mg/dL (70-110) H 12/01/19 13:49 Calcium 8.7 mg/dL (8.4-10.2) 12/01/19 05:27 Phosphorus 8.8 mg/dL (2.5-4.5) H 12/01/19 05:27 Total Bilirubin 0.4 mg/dL (0.2-1.3) 11/30/19 05:08 Direct Bilirubin 0.4 mg/dL (0.0-0.4) 11/30/19 05:08 Neonat Total Bilirubin Not Reportable 11/30/19 05:08 Neonat Direct Bilirubin Not Reportable 11/30/19 05:08 Neonat Indirect Bili Not Reportable 11/30/19 05:08 AST 20 U/L (14-36) 11/30/19 05:08 ALT 16 U/L (<35) 11/30/19 05:08 Alkaline Phosphatase 125 U/L (38-126) 11/30/19 05:08 Troponin I 0.024 ng/mL 11/29/19 11:21 NT-Pro-B Natriuret Pep 03825 pg/mL (<125) H 11/29/19 11:21 Total Protein 7.6 g/dL (6.3-8.2) 11/30/19 05:08 Albumin 3.8 g/dL (3.5-5.0) 11/30/19 05:08 Acetaminophen < 10 ug/mL (10-30) L 11/29/19 11:21 Serum Alcohol < 10 mg/dL (NONE DETECTED) 11/29/19 11:21 Rheumatoid Factor NEGATIVE (NEGATIVE) 12/01/19 05:27 Anti-Nuclear Antibody Negative (Negative) 11/29/19 18:23 Hep Bs Antigen Negative (Negative) 11/29/19 18:23 Hep Bs Antibody, Quant 45.1 mIU/mL (Immunity>9) 11/29/19 18:23 Hep B Core Total Ab Negative (Negative) 11/29/19 18:23 11/29/19 11/29/19 11:21 11:21 Troponin I 0.024 NT-Pro-B Natriuret Pep 26465 H Impressions: Chest X-Ray 11/29/19 10:03 IMPRESSION: Cardiomegaly and low inspiratory lung volumes without a superimposed acute cardiopulmonary process. Head MRI 11/30/19 00:00 IMPRESSION: There is scattered periventricular and deep white matter T2/FLAIR hyperintensity, evaluation significantly limited by motion artifact. Given patient age, these findings are concerning for inflammatory or infectious white matter pathology, including demyelinating disorders. Small vessel white matter disease to this degree would be very unusual for patient age. Repeat MRI examination with reduced patient motion artifact and contrast administration may be useful to further evaluate. No evidence of acute diffusion restricting infarction. EVIDENCE OF ACUTE STROKE: NO. Stroke Is this a Stroke Patient?: No Acute Heart Failure - Is this a Heart Failure Patient?: No
[2019-12-02 16:37] LABS: HEPATITIS C QUANTITATION HCV Not Detected IU/mL (.)
[2019-12-02 17:36] LABS: ANTIMYELOPEROXIDASE (MPO) AB <9.0 U/mL (0.0-9.0); CYTOPLASMIC (C-ANCA) <1:20 titer (Neg:<1:20)
[2019-12-03 15:28] LABS: ATYPICAL PANCA <1:20 titer (Neg:<1:20)
== END 2019-12-01 20:21 | disposition home or self-care (01) | DRG 91 ==
LOC: ER 09:39 → EH 13:31 → 5 19:57
PROVIDERS: ADMIT Internal Medicine; ATTEND Internal Medicine
PROC: 5A1D70Z Performance of Urinary Filtration, Intermittent, Less than 6 Hours Per Day (ICD-10-PCS; principal; 2019-11-29)
PROC: 5A1D70Z Performance of Urinary Filtration, Intermittent, Less than 6 Hours Per Day (ICD-10-PCS; 2019-12-01)
DX: G92 Toxic encephalopathy (principal); N18.6 End stage renal disease; I13.2 Hypertensive heart and chronic kidney disease with heart failure and with stage 5 chronic kidney disease, or end stage renal disease; T42.6X5A Adverse effect of other antiepileptic and sedative-hypnotic drugs, initial encounter; I50.9 Heart failure, unspecified; I25.10 Atherosclerotic heart disease of native coronary artery without angina pectoris; F32.9 Major depressive disorder, single episode, unspecified; L40.9 Psoriasis, unspecified; E10.21 Type 1 diabetes mellitus with diabetic nephropathy; D63.1 Anemia in chronic kidney disease; E83.51 Hypocalcemia; R01.1 Cardiac murmur, unspecified; E10.43 Type 1 diabetes mellitus with diabetic autonomic (poly)neuropathy; E10.319 Type 1 diabetes mellitus with unspecified diabetic retinopathy without macular edema; E87.5 Hyperkalemia; R13.10 Dysphagia, unspecified; R21 Rash and other nonspecific skin eruption; Z79.4 Long term (current) use of insulin; Z99.2 Dependence on renal dialysis; Z91.15 Patient's noncompliance with renal dialysis; Z90.49 Acquired absence of other specified parts of digestive tract; Z79.02 Long term (current) use of antithrombotics/antiplatelets; Z88.6 Allergy status to analgesic agent; Z88.1 Allergy status to other antibiotic agents; Z88.3 Allergy status to other anti-infective agents; Z88.8 Allergy status to other drugs, medicaments and biological substances
CPT/HCPCS: 36415; 70551; 71045; 80048; 80053; 80307; 82595; 82962; 83516; 83880; 84100; 84484; 85025; 86038; 86256; 86317; 86430; 86704; 87340; 87522; 93005; 93010; 99285; J1644; J1815; J3490; Q5105

== ENCOUNTER 2019-12-17 12:20 | Emergency (ER) | payer MEDICARE, MEDICAID ==
--- NOTE | 2019-12-17 13:52 | ER Document Report ---
ED Medical Screen (RME) - General Stated Complaint: SHOULDER PAIN/HEADACHE Time Seen by Provider: 12/17/19 13:51 Primary Care Provider: HILARY HERNANDEZ MD [Primary Care Provider] - Follow up as needed Notes: Patient presents emergency department with complaints of swelling to her right upper chest and lymph node swelling. She reports that she was treated for bursitis recently. S she denies fever vomiting diarrhea. TRAVEL OUTSIDE OF THE [place] IN LAST 30 DAYS: No - Related Data Allergies/Adverse Reactions: aspirin [Aspirin] Allergy (Verified 12/17/19 13:48) Anaphylaxis ciprofloxacin [From Cipro] Allergy (Verified 12/17/19 13:48) Anaphylaxis clindamycin [Clindamycin] Allergy (Verified 12/17/19 13:48) hydrocodone [From Vicodin] Allergy (Verified 12/17/19 13:48) ibuprofen [From Motrin] Allergy (Verified 12/17/19 13:48) Anaphylaxis lidocaine [From Lidoderm] Allergy (Verified 12/17/19 13:48) Generalized rash tramadol HCl [From Ultram] Allergy (Verified 12/17/19 13:48) vancomycin [Vancomycin] Allergy (Verified 12/17/19 13:48) Shortness of Breath nitroglycerin [Nitroglycerin] Adverse Reaction (Intermediate, Verified 12/17/19 13:48) Joint pain Past Medical History - Social History Family history: Reviewed & Not Pertinent - Past Medical History Cardiac Medical History: Reports: Hx Congestive Heart Failure, Hx Coronary Artery Disease, Hx Heart Attack, Hx Hypertension, Hx Heart Murmur Pulmonary Medical History: Reports: Hx Asthma, Hx Pneumonia Neurological Medical History: Reports: Hx Migraine, Hx Seizures - only r/t low calcium. Denies: Hx Parkinson's Disease Endocrine Medical History: Reports: Hx Diabetes Mellitus Type 1, Hx Diabetes Mellitus Type 2 Renal/ Medical History: Reports: Hx End Stage Renal Disease - On hemodialysis -W-, Hx Hemodialysis, Hx Ovarian Cysts. Denies: Hx Peritoneal Dialysis Malignancy Medical History: GI Medical History: Reports: Hx Gastritis Musculoskeltal Medical History: Skin Medical History: Reports Hx Psoriasis Psychiatric Medical History: Reports: Hx Depression Traumatic Medical History: Infectious Medical History: Past Surgical History: Reports: Hx Appendectomy, Hx Cholecystectomy, Hx Vascular Surgery - Lt AV Fistula and graft; Rt AV fistula - Immunizations Immunizations up to date: Yes Hx Diphtheria, Pertussis, Tetanus Vaccination: Yes Physical Exam - Vital signs Vitals: Temp Pulse Resp BP Pulse Ox 98.2 F 94 18 157/96 H 94 12/17/19 13:06 12/17/19 13:06 12/17/19 13:06 12/17/19 13:06 12/17/19 13:06 Course - Vital Signs Vital signs: Temp Pulse Resp BP Pulse Ox 98.2 F 94 18 157/96 H 94 12/17/19 13:06 12/17/19 13:06 12/17/19 13:06 12/17/19 13:06 12/17/19 13:06 Doctor's Discharge - Discharge Referrals: HILARY HERNANDEZ MD [Primary Care Provider] - Follow up as needed
[2019-12-17 14:59] LABS: ABSOLUTE BASOPHILS # (AUTO) 0.1 10^3/uL (0.0-0.2); ABSOLUTE EOSINOPHILS # (AUTO) 0.3 10^3/uL (0.0-0.6); ABSOLUTE LYMPHOCYTES (AUTO) 1.8 10^3/uL (0.5-4.7); ABSOLUTE MONOCYTES (AUTO) 0.7 10^3/uL (0.1-1.4); ABSOLUTE NEUT (AUTO) 3.8 10^3/uL (1.7-8.2); ALBUMIN 4.4 g/dL (3.5-5.0); ALKALINE PHOSPHATASE 103 U/L (38-126); ANION GAP 18 (5-19); ASPARTATE AMINO TRANSFERASE 16 U/L (14-36); BASOPHILS % (AUTO) 0.9 % (0-2); BILIRUBIN,DIRECT 0.3 mg/dL (0.0-0.4); BILIRUBIN,TOTAL 0.4 mg/dL (0.2-1.3); BLOOD UREA NITROGEN 49 mg/dL (7-20); CALCIUM 8.7 mg/dL (8.4-10.2); CARBON DIOXIDE 22 mmol/L (22-30); CHLORIDE 97 mmol/L (98-107); EOSINOPHILS % (AUTO) 5.1 % (0-6); GLUCOSE 322 mg/dL (75-110); HEMATOCRIT 28.3 % (36.0-47.0); HEMOGLOBIN 9.2 g/dL (12.0-15.5); LYMPHOCYTES % (AUTO) 27.3 % (13-45); MEAN CORPUSCULAR HEMOGLOBIN 27.7 pg (27.0-33.4); MEAN CORPUSCULAR HGB CONC 32.6 g/dL (32.0-36.0); MEAN CORPUSCULAR VOLUME 85 fl (80-97); MONOCYTES % (AUTO) 10.3 % (3-13); PLATELET COUNT 337 10^3/uL (150-450); POTASSIUM 4.9 mmol/L (3.6-5.0); RED BLOOD COUNT 3.33 10^6/uL (3.72-5.28); SEGMENTED NEUTROPHILS % (AUTO) 56.4 % (42-78); TOTAL CELLS COUNTED % (AUTO) 100 %; TOTAL PROTEIN 7.7 g/dL (6.3-8.2); WHITE BLOOD COUNT 6.7 10^3/uL (4.0-10.5)
[2019-12-17] MEDS ORDERED: CYCLOBENZAPRINE HCL 10 MG TABLET PO ONE (18:27)
--- NOTE | 2019-12-17 18:33 | ER Document Report ---
ED General - General Chief Complaint: Shoulder Pain Stated Complaint: SHOULDER PAIN/HEADACHE Time Seen by Provider: 12/17/19 13:51 Primary Care Provider: HILARY HERNANDEZ MD [Primary Care Provider] - Follow up as needed TRAVEL OUTSIDE OF THE [place] IN LAST 30 DAYS: No - HPI Notes: Patient is a 34-year-old female summarized who presents the emergency department for evaluation of pain in the right shoulder area. She states that she feels the area is swollen. Is been going on for last 3 weeks. She states she thought it was her bursitis. She was treated with a steroid shot and states it got better. She states it still persists. She states it worsens when she moves her right upper extremity. She denies any fevers or chills. No nausea or vomiting. She was last dialyzed on Wednesday. Her AV fistula is in her right upper arm, there is not been any issues with the fistula, no difficulty accessing. She states the pain is a 3 out of 5, worsened by movement, nothing seems to make it better. She is waiting to go to pain management to see if they can try some trigger point injections which may be helpful. - Related Data Allergies/Adverse Reactions: aspirin [Aspirin] Allergy (Verified 12/17/19 13:48) Anaphylaxis ciprofloxacin [From Cipro] Allergy (Verified 12/17/19 13:48) Anaphylaxis clindamycin [Clindamycin] Allergy (Verified 12/17/19 13:48) hydrocodone [From Vicodin] Allergy (Verified 12/17/19 13:48) ibuprofen [From Motrin] Allergy (Verified 12/17/19 13:48) Anaphylaxis lidocaine [From Lidoderm] Allergy (Verified 12/17/19 13:48) Generalized rash tramadol HCl [From Ultram] Allergy (Verified 12/17/19 13:48) vancomycin [Vancomycin] Allergy (Verified 12/17/19 13:48) Shortness of Breath nitroglycerin [Nitroglycerin] Adverse Reaction (Intermediate, Verified 12/17/19 13:48) Joint pain Past Medical History - General Information source: Patient - Social History Smoking Status: Never Smoker Chew tobacco use (# tins/day): No Frequency of alcohol use: None Drug Abuse: None Family History: Reviewed & Not Pertinent Patient has suicidal ideation: No Patient has homicidal ideation: No - Past Medical History Cardiac Medical History: Reports: Hx Congestive Heart Failure, Hx Coronary Artery Disease, Hx Heart Attack, Hx Hypertension, Hx Heart Murmur Pulmonary Medical History: Reports: Hx Asthma, Hx Pneumonia Neurological Medical History: Reports: Hx Migraine, Hx Seizures - only r/t low calcium. Denies: Hx Parkinson's Disease Endocrine Medical History: Reports: Hx Diabetes Mellitus Type 1, Hx Diabetes Mellitus Type 2 Renal/ Medical History: Reports: Hx End Stage Renal Disease - On hemodialysis M-W-, Hx Hemodialysis, Hx Ovarian Cysts. Denies: Hx Peritoneal Dialysis Malignancy Medical History: GI Medical History: Reports: Hx Gastritis Musculoskeletal Medical History: Skin Medical History: Reports Hx Psoriasis Psychiatric Medical History: Reports: Hx Depression Traumatic Medical History: Infectious Medical History: Past Surgical History: Reports: Hx Appendectomy, Hx Cholecystectomy, Hx Vascular Surgery - Lt AV Fistula and graft; Rt AV fistula - Immunizations Immunizations up to date: Yes Hx Diphtheria, Pertussis, Tetanus Vaccination: Yes Hx Pneumococcal Vaccination: 08/22/11 Review of Systems - Review of Systems Constitutional: No symptoms reported EENT: No symptoms reported Cardiovascular: No symptoms reported Respiratory: No symptoms reported Gastrointestinal: No symptoms reported Genitourinary: No symptoms reported Musculoskeletal: See HPI Skin: No symptoms reported Neurological/Psychological: No symptoms reported Physical Exam - Vital signs Vitals: Temp Pulse Resp BP Pulse Ox 98.2 F 94 18 157/96 H 94 12/17/19 13:06 12/17/19 13:06 12/17/19 13:06 12/17/19 13:06 12/17/19 13:06 - Notes Notes: Vital signs reviewed, please refer to chart. Head is normocephalic, atraumatic. Pupils equal round, reactive to light. Neck is supple without meningismus. Heart is regular rate and rhythm. Lungs are clear to auscultation bilaterally. Examination of the right shoulder and right upper extremity yields no obvious edema. No calor, no skin changes. She has an AV fistula in the right upper e xtremity with palpable thrill. Neurovascularly intact distally to the right upper extremity. She does have some significant tenderness as well as muscle tension throughout the cervical spine paraspinal musculature and into the trapezius on the right. Course - Re-evaluation Re-evalutation: 12/17/19 18:30 Patient presents emerged department for evaluation. She initial laboratory investigations as ordered through triage. The patient does not have a significant leukocytosis. The rest of her labs are at baseline. My suspicion is that this is musculoskeletal. She is given Flexeril 5 mg. This is cleared through hepatic metabolism so should be safe for the patient. I will send her home with 5 mg of Flexeril as needed and close follow-up. She is to return to the ED with worsening. - Vital Signs Vital signs: Temp Pulse Resp BP Pulse Ox 98.2 F 94 18 157/96 H 94 12/17/19 13:06 12/17/19 13:06 12/17/19 13:06 12/17/19 13:06 12/17/19 13:06 - Laboratory Result Diagrams: 12/17/19 14:30 12/17/19 14:30 Laboratory results interpreted by me: 12/17/19 12/17/19 14:30 14:30 RBC 3.33 L Hgb 9.2 L Hct 28.3 L RDW 19.0 H Sodium 136.9 L Chloride 97 L BUN 49 H Creatinine 10.52 H Est GFR ( Amer) 5 L Est GFR (MDRD) Non-Af 4 L Glucose 322 H Discharge - Discharge Clinical Impression: Muscle pain, myofascial Right shoulder pain Qualifiers: Chronicity: acute Qualified Code(s): M25.511 - Pain in right shoulder Condition: Stable Disposition: HOME, SELF-CARE Instructions: Muscle Relaxers ([facility]), Muscle Strain ([facility]) Additional Instructions: Take Flexeril as directed. Please watch for dizziness and drowsiness with this medication. Follow-up with your primary care provider and pain management this week. Return to the emergency department for worsening or new concerning symptoms of any sort. Referrals: HILARY HERNANDEZ MD [Primary Care Provider] - Follow up as needed
[2019-12-17 18:56] VITALS: BP 148/88
== END 2019-12-17 18:48 | disposition home or self-care (01) ==
LOC: ER 12:20
DX: M25.511 Pain in right shoulder (principal); M79.10 Myalgia, unspecified site; I25.10 Atherosclerotic heart disease of native coronary artery without angina pectoris; I12.0 Hypertensive chronic kidney disease with stage 5 chronic kidney disease or end stage renal disease; E11.22 Type 2 diabetes mellitus with diabetic chronic kidney disease; N18.6 End stage renal disease; Z99.2 Dependence on renal dialysis; Z87.892 Personal history of anaphylaxis; Z88.8 Allergy status to other drugs, medicaments and biological substances; Z88.1 Allergy status to other antibiotic agents; Z88.6 Allergy status to analgesic agent; Z88.5 Allergy status to narcotic agent; Z88.4 Allergy status to anesthetic agent
CPT/HCPCS: 99283; 36415; 85025; 80053; A9270

== ENCOUNTER 2019-12-28 03:50 | Emergency (ER) | payer MEDICARE, MEDICAID ==
[2019-12-28 05:55] LABS: ALBUMIN 4.3 g/dL (3.5-5.0); ALKALINE PHOSPHATASE 106 U/L (38-126); ASPARTATE AMINO TRANSFERASE 16 U/L (14-36); BILIRUBIN,DIRECT 0.4 mg/dL (0.0-0.4); BILIRUBIN,TOTAL 0.4 mg/dL (0.2-1.3); BLOOD UREA NITROGEN 61 mg/dL (7-20); CALCIUM 8.3 mg/dL (8.4-10.2); GLUCOSE 337 mg/dL (75-110); POTASSIUM 5.6 mmol/L (3.6-5.0); TOTAL PROTEIN 7.9 g/dL (6.3-8.2)
[2019-12-28 06:00] LABS: CARBON DIOXIDE 23 mmol/L (22-30); CHLORIDE 91 mmol/L (98-107)
[2019-12-28 06:05] LABS: ABSOLUTE BASOPHILS # (AUTO) 0.1 10^3/uL (0.0-0.2); ABSOLUTE EOSINOPHILS # (AUTO) 0.5 10^3/uL (0.0-0.6); ABSOLUTE LYMPHOCYTES (AUTO) 2.1 10^3/uL (0.5-4.7); ABSOLUTE MONOCYTES (AUTO) 0.8 10^3/uL (0.1-1.4); ABSOLUTE NEUT (AUTO) 6.4 10^3/uL (1.7-8.2); BASOPHILS % (AUTO) 0.7 % (0-2); EOSINOPHILS % (AUTO) 4.6 % (0-6); HEMATOCRIT 28.6 % (36.0-47.0); HEMOGLOBIN 9.6 g/dL (12.0-15.5); LYMPHOCYTES % (AUTO) 21.7 % (13-45); MEAN CORPUSCULAR HEMOGLOBIN 28.4 pg (27.0-33.4); MEAN CORPUSCULAR HGB CONC 33.5 g/dL (32.0-36.0); MEAN CORPUSCULAR VOLUME 85 fl (80-97); MONOCYTES % (AUTO) 8.1 % (3-13); PLATELET COUNT 312 10^3/uL (150-450); RED BLOOD COUNT 3.38 10^6/uL (3.72-5.28); RED CELL DISTRIBUTION WIDTH 18.9 % (11.5-14.0); SEGMENTED NEUTROPHILS % (AUTO) 64.9 % (42-78); TOTAL CELLS COUNTED % (AUTO) 100 %; WHITE BLOOD COUNT 9.8 10^3/uL (4.0-10.5)
[2019-12-28 06:08] LABS: ANION GAP 22 (5-19)
[2019-12-28] MEDS ORDERED: ACETAMINOPHEN 325 MG TABLET PO ONE (06:55)
--- NOTE | 2019-12-28 08:15 | RADIOLOGY REPORT (SQ) ---
EXAM DESCRIPTION: CHEST 2 VIEWS COMPLETED DATE/TIME: 12/28/2019 7:11 am REASON FOR STUDY: chest pain COMPARISON: 11/06/2019, 11/27/2019, 11/29/2019 EXAM PARAMETERS: NUMBER OF VIEWS: two views TECHNIQUE: Digital Frontal and Lateral radiographic views of the chest acquired. RADIATION DOSE: NA LIMITATIONS: none FINDINGS: LUNGS AND PLEURA: No opacities, masses or pneumothorax. No pleural effusion. MEDIASTINUM AND HILAR STRUCTURES: No masses or contour abnormalities. HEART AND VASCULAR STRUCTURES: Mild cardiomegaly. No evidence for failure. BONES: No acute findings. HARDWARE: Right subclavian venous stents. OTHER: No other significant finding. IMPRESSION: NO ACUTE RADIOGRAPHIC FINDING IN THE CHEST. TECHNICAL DOCUMENTATION: JOB ID: [id number] [employer]- All Rights Reserved Reading location - IP/workstation name: [email or web address]
--- NOTE | 2019-12-28 09:12 | ER Document Report ---
ED General - General Chief Complaint: Chest Wall Pain Stated Complaint: CHEST PAIN Time Seen by Provider: 12/28/19 08:42 Primary Care Provider: HILARY HERNANDEZ MD [Primary Care Provider] - Follow up as needed Notes: Patient is a 34-year-old -Faro[place] female with past medical history of dialysis who received a new dialysis access port in the right brachial artery yesterday. She reports shortly after this procedure she began having pain in the arm that radiated into the chest. She states she skipped dialysis yesterday because her arm was hurting so bad she did not want to ride in the car to come here to get dialysis. Patient denies any other pain, complaints or concerns. Her deli/bakery associate is Dr. Gustavo Kwon. TRAVEL OUTSIDE OF THE [place] IN LAST 30 DAYS: No - Related Data Allergies/Adverse Reactions: aspirin [Aspirin] Allergy (Verified 12/17/19 13:48) Anaphylaxis ciprofloxacin [From Cipro] Allergy (Verified 12/17/19 13:48) Anaphylaxis clindamycin [Clindamycin] Allergy (Verified 12/17/19 13:48) hydrocodone [From Vicodin] Allergy (Verified 12/17/19 13:48) ibuprofen [From Motrin] Allergy (Verified 12/17/19 13:48) Anaphylaxis lidocaine [From Lidoderm] Allergy (Verified 12/17/19 13:48) Generalized rash tramadol HCl [From Ultram] Allergy (Verified 12/17/19 13:48) vancomycin [Vancomycin] Allergy (Verified 12/17/19 13:48) Shortness of Breath nitroglycerin [Nitroglycerin] Adverse Reaction (Intermediate, Verified 12/17/19 13:48) Joint pain Home Medications: Clonodine, Humalog, Lobetalol, lasix, levemir, nifedipine Past Medical History - Social History Smoking Status: Never Smoker Chew tobacco use (# tins/day): No Frequency of alcohol use: Rare Drug Abuse: None Family History: Reviewed & Not Pertinent Patient has suicidal ideation: No Patient has homicidal ideation: No - Past Medical History Cardiac Medical History: Reports: Hx Congestive Heart Failure, Hx Coronary Artery Disease, Hx Heart Attack, Hx Hypertension, Hx Heart Murmur Pulmonary Medical History: Reports: Hx Asthma, Hx Pneumonia Neurological Medical History: Reports: Hx Migraine, Hx Seizures - only r/t low calcium. Denies: Hx Parkinson's Disease Endocrine Medical History: Reports: Hx Diabetes Mellitus Type 1, Hx Diabetes Mellitus Type 2 Renal/ Medical History: Reports: Hx End Stage Renal Disease - On hemodialysis --, Hx Hemodialysis, Hx Ovarian Cysts. Denies: Hx Peritoneal Dialysis Malignancy Medical History: GI Medical History: Reports: Hx Gastritis Musculoskeletal Medical History: Skin Medical History: Reports Hx Psoriasis Psychiatric Medical History: Reports: Hx Depression Traumatic Medical History: Infectious Medical History: Past Surgical History: Reports: Hx Appendectomy, Hx Cholecystectomy, Hx Vascular Surgery - Lt AV Fistula and graft; Rt AV fistula - Immunizations Immunizations up to date: Yes Hx Diphtheria, Pertussis, Tetanus Vaccination: Yes Hx Pneumococcal Vaccination: 08/22/11 Review of Systems - Review of Systems Musculoskeletal: Other - Arm pain -: Yes All other systems reviewed and negative Physical Exam - Vital signs Vitals: Resp 12 12/28/19 04:04 - General General appearance: Appears well, Other - Sleeping, no acute distress, easily arousable - Respiratory Respiratory status: No respiratory distress Chest status: Nontender Breath sounds: Normal Chest palpation: Normal - Cardiovascular Rhythm: Regular Heart sounds: Normal auscultation - Extremities General upper extremity: Other - Right upper extremity with 1 solitary suture at the proximal right AC. Dialysis port functional. No obvious swelling or increased warmth of the affected arm. The arm is diffusely tender to palpation. - Neurological Neuro grossly intact: Yes Cognition: Normal Orientation: AAOx4 Hellen Coma Scale Eye Opening: Spontaneous Bumpass Coma Scale Verbal: Oriented Bumpass Coma Scale Motor: Obeys Commands Hellen Coma Scale Total: 15 Speech: Normal Motor strength normal: LUE, RUE, LLE, RLE Sensory: Normal - Psychological Associated symptoms: Normal affect, Normal mood - Skin Skin Temperature: Warm Skin Moisture: Dry Skin Color: Normal Course - Re-evaluation Re-evalutation: 12/28/19 13:39 Spoke with the interventional radiologist, Dr. Joseph Limon who advised there is a thrombus in the internal jugular and subclavian but the stent is patent. I called and spoke with the patient's deli/bakery associate Dr. Kwon who advised given the patient's numbers here today if she does not require any further intervention that she can be dialyzed per schedule dialysis tomorrow. I have called and spoke with Dr. Tellez, the interventional deli/bakery associate who did an angioplasty on the patient yesterday and described the findings to them, his charge nurse. Awaiting his return call now for plan. 12/28/19 13:[address] Tellez's charge nurse again, they advised nothing from their standpoint to do given that they are not surgeons. We will consult vascular surgery. 12/28/19 14:08 I spoke again with Dr. Joseph Limon, interventional list who advised there is nothing interventional to do with the patient's findings of thrombus. He reports that the primary doctor may choose to place the patient back on some sort of anticoagulation measure but at this time there is nothing specific from his standpoint to do. Per the patient's deli/bakery associate she is stable for discharge and outpatient dialysis tomorrow. I called and spoke with the patient's primary doctor, Dr. Brady Chua who advised he wishes to start the patient on Eliquis 2.5 mg p.o. twice daily. He asked that the patient follow-up with him on Wednesday. All this was communicated clearly to the patient. We discussed the importance of outpatient follow-up and advised that she return here or any ER immediately with any new, persistent or worsening symptoms. She verbalized understood and agreed. 12/28/19 14:10 Patient request prescription for regular human insulin. She states that she takes 10 units baseline and uses sliding scale from there. - Vital Signs Vital signs: Temp Pulse Resp BP Pulse Ox 16 152/130 H 100 12/28/19 14:00 12/28/19 11:00 12/28/19 13:00 - Laboratory Result Diagrams: 12/28/19 04:10 12/28/19 04:10 Laboratory results interpreted by me: 12/28/19 12/28/19 04:10 04:10 RBC 3.38 L Hgb 9.6 L Hct 28.6 L RDW 18.9 H Sodium 135.5 L Potassium 5.6 H Chloride 91 L Anion Gap 22 H BUN 61 H Creatinine 13.30 H Est GFR ( Amer) 4 L Est GFR (MDRD) Non-Af 3 L Glucose 337 H Calcium 8.3 L Discharge - Discharge Clinical Impression: DVT (deep venous thrombosis) Qualifiers: DVT location: non-extremity vein Chronicity: acute Qualified Code(s): I82.90 - Acute embolism and thrombosis of unspecified vein Condition: Stable Disposition: HOME, SELF-CARE Instructions: DVT Outpatient Treatment ([facility]) Additional Instructions: Follow-up with your primary doctor on Wednesday morning as discussed. Return here or any ER immediately with any new, persistent or worsening symptoms. Prescriptions: Insulin Regular, Human [Humulin R (Reg) Insulin 100 unit/mL] 10 unit SUBCUT .SLD SCALE #10 ml Referrals: HILARY HERNANDEZ MD [Primary Care Provider] - Follow up as needed
[2019-12-28] MEDS ORDERED: FENTANYL CITRATE INJ/PF 100 MCG/2 ML AMPUL IV ONE ×2 (10:49→14:09)
[2019-12-28] MEDS ORDERED: INSULIN REG, HUMAN 100 UNIT/ML 3 ML VIAL (PYX) IV ONE (13:54)
[2019-12-28 14:33] VITALS: BP 181/105
--- NOTE | 2019-12-28 15:32 | XCELERA REPORT ---
[address] [address] Upper Extremity Venous Evaluation Name: ERICH GOODMAN Age: 34 yrs Gender: Female : 1985 Patient Status: Emergency Patient Location: ER Study Date: 12/28/2019 11:16 AM Procedure: Unilateral duplex scan of the right upper extremity veins was performed, including responses to compression and other maneuvers. Reason For Study: Pain s/p dialysis access placement Ordering Physician: LORRAINE FUNES Performed By: Enid Andrews Right Side Venous Evaluation Abnormal vessel filling, no compression limited Colour flow , enlarged veins with echogenic content, in the Internal Jugular and part of the Subclavian vein. A Cephalic Arteriovenous fistula is patent. Otherwise acceptable appearance of the other right upper extremity veins. Critical Findings Discussed with Roberto Funes in the Emergency room. Interpretation Summary Deep venous thrombosis in the right Internal Jugular and Subclavian veins. Seems sub acute. A functioning Brachial Cephalic fistula is noted. : LORRAINE FUNES > Robert Limon
--- NOTE | 2019-12-28 19:37 | EKG REPORT ---
SEVERITY:- ABNORMAL ECG - SINUS RHYTHM FIRST DEGREE AV BLOCK PROLONGED QT INTERVAL : Confirmed by: Beatriz Leyva MD 28-Dec-2019 19:35:53
== END 2019-12-28 14:51 | disposition home or self-care (01) ==
LOC: ER 03:50
DX: I82.C11 Acute embolism and thrombosis of right internal jugular vein (principal); R07.89 Other chest pain; I13.2 Hypertensive heart and chronic kidney disease with heart failure and with stage 5 chronic kidney disease, or end stage renal disease; E11.22 Type 2 diabetes mellitus with diabetic chronic kidney disease; N18.6 End stage renal disease; I50.9 Heart failure, unspecified; Z99.2 Dependence on renal dialysis; Z79.4 Long term (current) use of insulin; Z88.6 Allergy status to analgesic agent; Z88.3 Allergy status to other anti-infective agents; Z90.49 Acquired absence of other specified parts of digestive tract
CPT/HCPCS: 93005; 36415; 82962; 85025; 80053; 93971 ×2; 71046; 93010; A9270 ×2; J3010; J1815

== ENCOUNTER 2020-01-14 15:33 | Emergency (ER) | payer MEDICARE, MEDICAID ==
--- NOTE | 2020-01-14 16:45 | ER Document Report ---
ED Medical Screen (RME) - General Chief Complaint: Chest Pain Stated Complaint: CHEST PAIN Time Seen by Provider: 01/14/20 16:41 Primary Care Provider: HILARY HERNANDEZ MD [Primary Care Provider] - Follow up as needed Mode of Arrival: Medic Information source: Patient Notes: Patient presents complaining of midsternal chest pain that started around 5:00 this morning. Patient does complain of right shoulder pain and nausea. No cough or cold symptoms. Patient has a history of hypertension, heart failure end-stage renal disease and dialysis on Wednesday. Patient denies missing any dialysis sessions recently. I have greeted and performed a rapid initial assessment of this patient. A comprehensive ED assessment and evaluation of the patient, analysis of test results and completion of the medical decision making process will be conducted by additional ED providers. TRAVEL OUTSIDE OF THE [place] IN LAST 30 DAYS: No - Related Data Allergies/Adverse Reactions: aspirin [Aspirin] Allergy (Verified 12/17/19 13:48) Anaphylaxis ciprofloxacin [From Cipro] Allergy (Verified 12/17/19 13:48) Anaphylaxis clindamycin [Clindamycin] Allergy (Verified 12/17/19 13:48) hydrocodone [From Vicodin] Allergy (Verified 12/17/19 13:48) ibuprofen [From Motrin] Allergy (Verified 12/17/19 13:48) Anaphylaxis lidocaine [From Lidoderm] Allergy (Verified 12/17/19 13:48) Generalized rash tramadol HCl [From Ultram] Allergy (Verified 12/17/19 13:48) vancomycin [Vancomycin] Allergy (Verified 12/17/19 13:48) Shortness of Breath nitroglycerin [Nitroglycerin] Adverse Reaction (Intermediate, Verified 12/17/19 13:48) Joint pain Past Medical History - Social History Family history: Reviewed & Not Pertinent - Past Medical History Cardiac Medical History: Reports: Hx Congestive Heart Failure, Hx Coronary Artery Disease, Hx Heart Attack, Hx Hypertension, Hx Heart Murmur Pulmonary Medical History: Reports: Hx Asthma, Hx Pneumonia Neurological Medical History: Reports: Hx Migraine, Hx Seizures - only r/t low calcium. Denies: Hx Parkinson's Disease Endocrine Medical History: Reports: Hx Diabetes Mellitus Type 1, Hx Diabetes Mellitus Type 2 Renal/ Medical History: Reports: Hx End Stage Renal Disease - On hemodialysis M-W-F, Hx Hemodialysis, Hx Ovarian Cysts. Denies: Hx Peritoneal Dialysis Malignancy Medical History: GI Medical History: Reports: Hx Gastritis Musculoskeltal Medical History: Skin Medical History: Reports Hx Psoriasis Psychiatric Medical History: Reports: Hx Depression Traumatic Medical History: Infectious Medical History: Past Surgical History: Reports: Hx Appendectomy, Hx Cholecystectomy, Hx Vascular Surgery - Lt AV Fistula and graft; Rt AV fistula - Immunizations Immunizations up to date: Yes Hx Diphtheria, Pertussis, Tetanus Vaccination: Yes Physical Exam - Respiratory Respiratory status: No respiratory distress Breath sounds: Normal - Cardiovascular Rhythm: Regular Heart sounds: S1 appreciated, S2 appreciated Doctor's Discharge - Discharge Referrals: HILARY HERNANDEZ MD [Primary Care Provider] - Follow up as needed
[2020-01-14 17:42] LABS: ABSOLUTE BASOPHILS # (AUTO) 0.1 10^3/uL (0.0-0.2); ABSOLUTE EOSINOPHILS # (AUTO) 0.5 10^3/uL (0.0-0.6); ABSOLUTE LYMPHOCYTES (AUTO) 1.7 10^3/uL (0.5-4.7); ABSOLUTE MONOCYTES (AUTO) 0.7 10^3/uL (0.1-1.4); ABSOLUTE NEUT (AUTO) 5.8 10^3/uL (1.7-8.2); BASOPHILS % (AUTO) 0.8 % (0-2); EOSINOPHILS % (AUTO) 5.5 % (0-6); HEMATOCRIT 27.9 % (36.0-47.0); HEMOGLOBIN 8.9 g/dL (12.0-15.5); LYMPHOCYTES % (AUTO) 19.7 % (13-45); MEAN CORPUSCULAR HEMOGLOBIN 26.9 pg (27.0-33.4); MEAN CORPUSCULAR HGB CONC 31.8 g/dL (32.0-36.0); MEAN CORPUSCULAR VOLUME 85 fl (80-97); MONOCYTES % (AUTO) 7.9 % (3-13); PLATELET COUNT 317 10^3/uL (150-450); RED BLOOD COUNT 3.29 10^6/uL (3.72-5.28); RED CELL DISTRIBUTION WIDTH 17.8 % (11.5-14.0); SEGMENTED NEUTROPHILS % (AUTO) 66.1 % (42-78); TOTAL CELLS COUNTED % (AUTO) 100 %; WHITE BLOOD COUNT 8.8 10^3/uL (4.0-10.5)
[2020-01-14 17:56] LABS: ALBUMIN 4.5 g/dL (3.5-5.0); ALKALINE PHOSPHATASE 96 U/L (38-126); ANION GAP 17 (5-19); ASPARTATE AMINO TRANSFERASE 15 U/L (14-36); BILIRUBIN,DIRECT 0.2 mg/dL (0.0-0.4); BILIRUBIN,TOTAL 0.4 mg/dL (0.2-1.3); BLOOD UREA NITROGEN 60 mg/dL (7-20); CALCIUM 8.3 mg/dL (8.4-10.2); CARBON DIOXIDE 23 mmol/L (22-30); CHLORIDE 92 mmol/L (98-107); GLUCOSE 391 mg/dL (75-110); TOTAL PROTEIN 8.1 g/dL (6.3-8.2)
[2020-01-14 18:00] LABS: POTASSIUM 6.6 mmol/L (3.6-5.0)
--- NOTE | 2020-01-14 18:04 | RADIOLOGY REPORT (SQ) ---
EXAM DESCRIPTION: CHEST 2 VIEWS COMPLETED DATE/TIME: 01/14/2020 4:32 pm REASON FOR STUDY: cp COMPARISON: 12/28/2019, 11/29/2019 EXAM PARAMETERS: NUMBER OF VIEWS: two views TECHNIQUE: Digital Frontal and Lateral radiographic views of the chest acquired. RADIATION DOSE: NA LIMITATIONS: none FINDINGS: LUNGS AND PLEURA: No opacities, masses or pneumothorax. No pleural effusion. MEDIASTINUM AND HILAR STRUCTURES: No masses. Prominent aortic arch is stable. HEART AND VASCULAR STRUCTURES: Indistinctness of the pulmonary vasculature with cephalization of vess els and peribronchial cuffing consistent with mild pulmonary edema. Moderate cardiomegaly is stable. BONES: No acute findings. HARDWARE: None in the chest. OTHER: No other significant finding. IMPRESSION: Moderate cardiomegaly with mild pulmonary edema. TECHNICAL DOCUMENTATION: JOB ID: [id number] 2010 [employer]- All Rights Reserved Reading location - IP/workstation name: [email or web address]
[2020-01-14 18:06] LABS: TROPONIN I 0.021 ng/mL
[2020-01-14] MEDS ORDERED: CALCIUM GLUCONATE 1000 MG/10 ML INJ IV ONE (18:42)
[2020-01-14] MEDS ORDERED: SODIUM BICARBONATE 8.4% INJ 50 MEQ/50 ML DISP.SYRIN IV ONE (18:45)
[2020-01-14] MEDS ORDERED: ALBUTEROL SULFATE 0.083% NEB 2.5 MG/3 ML AMPUL NEB ONE (18:45)
[2020-01-14] MEDS ORDERED: PATIROMER 8.4 GM SUSP PACKET PO SCH (18:45)
[2020-01-14] MEDS ORDERED: INSULIN REG, HUMAN 100 UNIT/ML 3 ML VIAL (PYX) IV ONE (18:45)
[2020-01-14] MEDS ORDERED: FUROSEMIDE INJ/PF 40 MG/4 ML SDV IV ONE (18:46)
[2020-01-14] MEDS ORDERED: ONDANSETRON HCL INJ/PF 4 MG/2 ML SDV IV ONE (18:55)
[2020-01-14] MEDS ORDERED: PATIROMER 8.4 GM SUSP PACKET ONE (19:49)
[2020-01-14] MEDS ORDERED: HYDROMORPHONE HCL INJ/PF 2 MG/ML AMPULE IV ONE ×2 (21:11→22:42)
--- NOTE | 2020-01-14 21:43 | ER Document Report ---
ED General - General Chief Complaint: Chest Pain Stated Complaint: CHEST PAIN Time Seen by Provider: 01/14/20 16:41 Primary Care Provider: HILARY HERNANDEZ MD [Primary Care Provider] - Follow up as needed Mode of Arrival: Medic Notes: 34-year-old female presents emergency department complaining of nausea and feeling generally unwell for the past 24 hours. Patient states she has been hav ing shortness of breath, some pain in her right arm radiating to her right neck and the right side of her chest starting last evening as well as dizziness and shortness of breath while laying down flat. Patient is concerned because this is the same way she felt 3 weeks ago when she ended up needing to have angioplasty in [place] for blood clots in her right IJ and right subclavian in [place]. Patient is concerned that she may have problems with that again and that it may cause difficulty with her dialysis access. Patient states that for the past 3 weeks since the angioplasty every time she has dialysis she has significant pain with dialysis. Patient is on Eliquis and has been taking it as directed. Patient also complains of a right-sided headache that is similar to prior to the angioplasty 3 weeks ago. No blurry vision, no numbness, no tingling, no focal weakness. No head trauma. Patient is ESRD on Wednesday dialysis and has not missed any sessions. TRAVEL OUTSIDE OF THE [place] IN LAST 30 DAYS: No - Related Data Allergies/Adverse Reactions: aspirin [Aspirin] Allergy (Verified 12/17/19 13:48) Anaphylaxis ciprofloxacin [From Cipro] Allergy (Verified 12/17/19 13:48) Anaphylaxis clindamycin [Clindamycin] Allergy (Verified 12/17/19 13:48) hydrocodone [From Vicodin] Allergy (Verified 12/17/19 13:48) ibuprofen [From Motrin] Allergy (Verified 12/17/19 13:48) Anaphylaxis lidocaine [From Lidoderm] Allergy (Verified 12/17/19 13:48) Generalized rash tramadol HCl [From Ultram] Allergy (Verified 12/17/19 13:48) vancomycin [Vancomycin] Allergy (Verified 12/17/19 13:48) Shortness of Breath nitroglycerin [Nitroglycerin] Adverse Reaction (Intermediate, Verified 12/17/19 13:48) Joint pain Past Medical History - General Information source: Patient - Social History Smoking Status: Never Smoker Frequency of alcohol use: None Drug Abuse: None Family History: Reviewed & Not Pertinent Patient has suicidal ideation: No Patient has homicidal ideation: No - Past Medical History Cardiac Medical History: Reports: Hx Congestive Heart Failure, Hx Coronary Artery Disease, Hx Heart Attack, Hx Hypertension, Hx Heart Murmur Pulmonary Medical History: Reports: Hx Asthma, Hx Pneumonia Neurological Medical History: Reports: Hx Migraine, Hx Seizures - only r/t low calcium. Denies: Hx Parkinson's Disease Endocrine Medical History: Reports: Hx Diabetes Mellitus Type 1, Hx Diabetes Mellitus Type 2 Renal/ Medical History: Reports: Hx End Stage Renal Disease - On hemodialysis -W-, Hx Hemodialysis, Hx Ovarian Cysts. Denies: Hx Peritoneal Dialysis Malignancy Medical History: GI Medical History: Reports: Hx Gastritis Musculoskeletal Medical History: Skin Medical History: Reports Hx Psoriasis Psychiatric Medical History: Reports: Hx Depression Traumatic Medical History: Infectious Medical History: Past Surgical History: Reports: Hx Appendectomy, Hx Cholecystectomy, Hx Vascular Surgery - Lt AV Fistula and graft; Rt AV fistula - Immunizations Immunizations up to date: Yes Hx Diphtheria, Pertussis, Tetanus Vaccination: Yes Hx Pneumococcal Vaccination: 08/22/11 Review of Systems - Review of Systems Constitutional: See HPI, Malaise, Weakness. denies: Chills, Diaphoresis, Fever EENT: No symptoms reported Cardiovascular: See HPI Respiratory: See HPI Gastrointestinal: No symptoms reported. denies: Abdominal pain, Diarrhea, Nausea, Vomiting Genitourinary: Other - Does not make any urine. Musculoskeletal: See HPI -: Yes All other systems reviewed and negative Physical Exam - Vital signs Vitals: Temp Pulse Resp BP Pulse Ox 98.5 F 90 26 H 177/89 H 95 01/14/20 16:48 01/14/20 16:48 01/14/20 16:48 01/14/20 16:48 01/14/20 16:48 Interpretation: Hypertensive - Notes Notes: GENERAL: Alert, interacts well. Appears uncomfortable. HEAD: Normocephalic, atraumatic EYES: Pupils equal, round and reactive to light, extraocular movements intact. ENT: Oral mucosa moist, tongue midline. NECK: Full range of motion, supple, trachea midline. Right side of the neck over top of the IJ is somewhat tender to palpation, no enlarged vessels noted, no cording noted. LUNGS: Clear to auscultation bilaterally, no wheezes, rales or rhonchi, no respiratory distress. HEART: Regular rate and rhythm, no murmurs, gallops, rubs. ABDOMEN: Soft, nontender, nondistended, bowel sounds present in all 4 quadrants. EXTREMITIES: Moves all 4 extremities spontaneously, right upper extremity has a dialysis fistula with palpable thrill, she states it is tender to palpation, there is a bit of an aneurysm noted. No cyanosis. NEUROLOGICAL: Alert and oriented x3, normal speech. PSYCH: Normal mood, normal affect. SKIN: Warm, Dry, normal turgor. Course - Re-evaluation Re-evalutation: 01/14/20 21:53 CBC shows chronic anemia with hemoglobin 8.9, CMP shows pseudohyponatremia with a sodium of 132.4, markedly elevated potassium at 6.6, this was treated with calcium gluconate, bicarb, insulin, no glucose was given as her glucose is already elevated, V[place], albuterol 5 mg nebulized. EKG does show peaked T waves but no QRS widening, BUN and creatinine are chronically elevated, troponin is detectable at 0.021 but not indeterminate or positive, proBNP is elevated at 6778, patient has no overt signs of heart failure at this time, she is not hypoxic, clinically she is not in any respiratory distress, lungs are clear and there is no peripheral edema. She does have slightly elevated lipase at 489.6. Chest x-ray does show mild pulmonary edema. Patient was not given Lasix as she makes no urine whatsoever. I did have Doppler, and repeat the ultrasound, they state that it looks identical to the ultrasound that was performed several weeks ago showing blood clot in the right IJ and right subclavian as well as enlarged dialysis access fistula. I have called [facility] in [place] where they previously performed angioplasty for these blood clots to try and transfer this patient and I am awaiting a phone call back. She will need to be transferred both because we cannot do angioplasty here to fix the blood clots in the subclavian and the right IJ but also because we do not have dialysis and she has a markedly elevated potassium that will need to be treated. Repeat BMP will be performed 1 hour after the last of the potassium shifting medications have been given. 01/14/20 23:[address] Jimenes, he has accepted the patient and we are waiting on bed assignment. Reviewing the chart from last visit it does appear that they may not actually need to intervene on the clot in the subclavian or the right IJ however the patient still needs dialysis and we have no dialysis beds. Cannot go home due to the ongoing chest pain and shortness of breath as well as markedly elevated potassium Patient will be transferred [facility] via [facility] ground transport. Repeat BMP is pending. 01/15/20 01:13 Repeat BMP shows decreased potassium of 5.7. No bowel movement this time. Continuing to complain of right-sided chest and neck pain as well as shortness of breath. Still no hypoxia. 01/15/20 03:10 Patient has been having continuing intermittent right-sided chest pain, headache and nausea. Attempted to treat the chest pain with nitroglycerin however she is states she is allergic to it and develops airway swelling with it. Patient's headache, chest pain and nausea has been successfully treated with Zofran and intermittent Dilaudid 0.5 mg. Transport should arrive shortly, patient continues to be stable. - Vital Signs Vital signs: Temp Pulse Resp BP Pulse Ox 98.5 F 90 17 148/101 H 96 01/14/20 16:48 01/14/20 16:48 01/15/20 02:01 01/15/20 02:00 01/15/20 02:01 - Laboratory Result Diagrams: 01/14/20 17:15 01/14/20 22:58 Laboratory results interpreted by me: 01/14/20 01/14/20 01/14/20 17:15 17:15 17:15 RBC 3.29 L Hgb 8.9 L Hct 27.9 L MCH 26.9 L MCHC 31.8 L RDW 17.8 H Sodium 132.4 L Potassium 6.6 H* Chloride 92 L BUN 60 H Creatinine 11.36 H Est GFR ( Amer) 5 L Est GFR (MDRD) Non-Af 4 L Glucose 391 H POC Glucose Calcium 8.3 L NT-Pro-B Natriuret Pep 6770 H Lipase 489.6 H 01/14/20 01/14/20 01/14/20 20:09 22:39 22:58 RBC Hgb Hct MCH MCHC RDW Sodium Potassium 5.7 H Chloride 94 L BUN 70 H Creatinine 11.24 H Est GFR ( Amer) 5 L Est GFR (MDRD) Non-Af 4 L Glucose 192 H POC Glucose 307 H 185 H Calcium NT-Pro-B Natriuret Pep Lipase - EKG Interpretation by Me Additional EKG results interpreted by me: 01/14/20 23:29 EKG shows sinus rhythm rate 93, first-degree AV block, left axis deviation, peaked T waves, no QRS widening, borderline prolonged QT interval, T wave inversions in aVL, no ST segment elevations or depressions per my interpre tation. Critical Care Note - Critical Care Note Total time excluding time spent on procedures (mins): 37 Discharge - Discharge Clinical Impression: ESRD (end stage renal disease) on dialysis, Hyperkalemia, End stage renal disease on dialysis due to type 1 diabetes mellitus, Diabetes mellitus type 1 with complications, Chest pain of uncertain etiology, Serum lipase elevation Pulmonary edema Qualifiers: Chronicity: acute Qualified Code(s): J81.0 - Acute pulmonary edema Condition: Serious Disposition: [facility] Referrals: HILARY HERNANDEZ MD [Primary Care Provider] - Follow up as needed
[2020-01-14] MEDS ORDERED: NITROGLYCERIN 0.4 MG/TAB 25 TAB/BOTTLE SL PRN (22:42)
--- NOTE | 2020-01-14 23:12 | EKG REPORT ---
SEVERITY:- ABNORMAL ECG - SINUS RHYTHM FIRST DEGREE AV BLOCK BORDERLINE LEFT AXIS DEVIATION PROLONGED QT INTERVAL : Confirmed by: Daniela Lemons 14-Jan-2020 23:11:47
[2020-01-14 23:34] LABS: ANION GAP 19 (5-19); BLOOD UREA NITROGEN 70 mg/dL (7-20); CALCIUM 8.6 mg/dL (8.4-10.2); CARBON DIOXIDE 24 mmol/L (22-30); CHLORIDE 94 mmol/L (98-107); GLUCOSE 192 mg/dL (75-110); POTASSIUM 5.7 mmol/L (3.6-5.0)
[2020-01-15] MEDS ORDERED: ONDANSETRON HCL INJ/PF 4 MG/2 ML SDV IV ONE (01:12)
[2020-01-15] MEDS ORDERED: HYDROMORPHONE HCL INJ/PF 2 MG/ML AMPULE IV ONE (01:12)
[2020-01-15 03:17] VITALS: BP 138/89
--- NOTE | 2020-01-15 09:40 | XCELERA REPORT ---
[address] [address] Upper Extremity Venous Evaluation Name: ERICH GOODMAN Age: 34 yrs Gender: Female : 1985 Patient Status: Emergency Patient Location: ER Study Date: 01/14/2020 09:04 PM Procedure: Unilateral duplex scan of the right upper extremity veins was performed, including responses to compression and other maneuvers. Reason For Study: h/o RIJ and R subclavian clot Ordering Physician: LEYDI GARCIA Performed By: Enid Andrews Right Side Venous Evaluation Echogenic, non compressible with no Colour flow in the Internal Jugular, and Subclavian, unchanged from recent study. A Patent AV graft is noted in the arm. Otherwise normal vessel filling wall to wall, compression and augmentation as well as Colour flow down to the forearm veins. Interpretation Summary Chronic DVT in the right Internal Jugular vein. Patent AV graft in right arm. : LEYDI GARCIA > Robert Limon
== END 2020-01-15 03:40 | disposition short-term general hospital (02) ==
LOC: ER 15:33
DX: E87.5 Hyperkalemia (principal); J81.0 Acute pulmonary edema; E10.22 Type 1 diabetes mellitus with diabetic chronic kidney disease; N18.6 End stage renal disease; D63.1 Anemia in chronic kidney disease; Z99.2 Dependence on renal dialysis; R74.8 Abnormal levels of other serum enzymes; I82.B11 Acute embolism and thrombosis of right subclavian vein; I82.C11 Acute embolism and thrombosis of right internal jugular vein; M79.601 Pain in right arm; R07.9 Chest pain, unspecified; M54.2 Cervicalgia; R06.02 Shortness of breath; R11.0 Nausea; R51 Headache; R53.81 Other malaise; R53.1 Weakness; I10 Essential (primary) hypertension; I44.0 Atrioventricular block, first degree; I25.10 Atherosclerotic heart disease of native coronary artery without angina pectoris; J45.909 Unspecified asthma, uncomplicated; Z98.890 Other specified postprocedural states; Z86.718 Personal history of other venous thrombosis and embolism; Z79.01 Long term (current) use of anticoagulants; Z87.892 Personal history of anaphylaxis; Z88.8 Allergy status to other drugs, medicaments and biological substances; Z88.1 Allergy status to other antibiotic agents; Z88.6 Allergy status to analgesic agent; Z88.5 Allergy status to narcotic agent; Z88.4 Allergy status to anesthetic agent
CPT/HCPCS: 93005; 96376; 94640; 99285; 96374; 96375; 36415; 82962; 83690; 84703; 85025; 80053; 84484; 83880; 93971 ×2; 71046; 93010; J0610; J1170 ×2; A9270 ×3; J3490; J2405 ×2; J1815

== ENCOUNTER 2020-02-07 11:24 | Emergency (ER) | payer MEDICARE, MEDICAID ==
[2020-02-07 13:31] LABS: ABSOLUTE BASOPHILS # (AUTO) 0.1 10^3/uL (0.0-0.2); ABSOLUTE EOSINOPHILS # (AUTO) 0.6 10^3/uL (0.0-0.6); ABSOLUTE MONOCYTES (AUTO) 0.8 10^3/uL (0.1-1.4); ABSOLUTE NEUT (AUTO) 6.1 10^3/uL (1.7-8.2); BASOPHILS % (AUTO) 0.9 % (0-2); EOSINOPHILS % (AUTO) 6.4 % (0-6); HEMATOCRIT 34.9 % (36.0-47.0); HEMOGLOBIN 11.1 g/dL (12.0-15.5); LYMPHOCYTES % (AUTO) 20.9 % (13-45); MEAN CORPUSCULAR HEMOGLOBIN 27.1 pg (27.0-33.4); MEAN CORPUSCULAR HGB CONC 31.9 g/dL (32.0-36.0); MEAN CORPUSCULAR VOLUME 85 fl (80-97); MONOCYTES % (AUTO) 8.4 % (3-13); PLATELET COUNT 295 10^3/uL (150-450); SEGMENTED NEUTROPHILS % (AUTO) 63.4 % (42-78); TOTAL CELLS COUNTED % (AUTO) 100 %; WHITE BLOOD COUNT 9.7 10^3/uL (4.0-10.5)
[2020-02-07 13:52] LABS: ANISOCYTOSIS 2+; PLATELET COMMENT ADEQUATE; PLATELET LARGE PRESENT; POLYCHROMASIA SLIGHT
--- NOTE | 2020-02-07 13:52 | ER Document Report ---
ED General - General Chief Complaint: Abdominal Pain Stated Complaint: ABDOMINAL PAIN Time Seen by Provider: 02/07/20 13:11 Primary Care Provider: HILARY HERNANDEZ MD [Primary Care Provider] - Follow up as needed Mode of Arrival: Ambulatory Information source: Patient TRAVEL OUTSIDE OF THE [place] IN LAST 30 DAYS: No - HPI Onset: Other - over the last several days Onset/Duration: Gradual Quality of pain: Achy, Sharp Severity: Severe Pain Level: 5 Associated symptoms: Diarrhea, Nausea Exacerbated by: Other - palpation of abdomen Relieved by: Denies, Food Similar symptoms previously: No Recently seen / treated by doctor: No Notes: 34 year old female with a history of ESRD (patient skipped dialysis today), CAD, CHF, DM, Asthma, Anemia, Depression here for abdominal pains with nausea for the last several days and an urge to want to have a BM but she has not been having d iarrhea or constipation. The patient has had her gallbladder and appendix removed in the past. The patient denies fevers. chills, sweats, blood in her stool, vaginal discharge. The patient says she makes no urine. - Related Data Allergies/Adverse Reactions: aspirin [Aspirin] Allergy (Verified 02/07/20 12:03) Anaphylaxis ciprofloxacin [From Cipro] Allergy (Verified 02/07/20 12:03) Anaphylaxis clindamycin [Clindamycin] Allergy (Verified 02/07/20 12:03) hydrocodone [From Vicodin] Allergy (Verified 02/07/20 12:03) ibuprofen [From Motrin] Allergy (Verified 02/07/20 12:03) Anaphylaxis lidocaine [From Lidoderm] Allergy (Verified 02/07/20 12:03) Generalized rash tramadol HCl [From Ultram] Allergy (Verified 02/07/20 12:03) vancomycin [Vancomycin] Allergy (Verified 02/07/20 12:03) Shortness of Breath nitroglycerin [Nitroglycerin] Adverse Reaction (Intermediate, Verified 02/07/20 12:03) Joint pain Past Medical History - General Information source: Patient - Social History Smoking Status: Never Smoker Frequency of alcohol use: None Drug Abuse: None Lives with: Alone Family History: Reviewed & Not Pertinent Patient has suicidal ideation: No Patient has homicidal ideation: No - Past Medical History Cardiac Medical History: Reports: Hx Congestive Heart Failure, Hx Coronary Artery Disease, Hx Heart Attack, Hx Hypertension, Hx Heart Murmur Pulmonary Medical History: Reports: Hx Asthma, Hx Pneumonia Neurological Medical History: Reports: Hx Migraine, Hx Seizures - only r/t low calcium. Denies: Hx Parkinson's Disease Endocrine Medical History: Reports: Hx Diabetes Mellitus Type 1, Hx Diabetes Mellitus Type 2 Renal/ Medical History: Reports: Hx End Stage Renal Disease - On hemodialysis M-W-F, Hx Hemodialysis, Hx Ovarian Cysts. Denies: Hx Peritoneal Dialysis Malignancy Medical History: GI Medical History: Reports: Hx Gastritis Musculoskeletal Medical History: Skin Medical History: Reports Hx Psoriasis Psychiatric Medical History: Reports: Hx Depression Traumatic Medical History: Infectious Medical History: Past Surgical History: Reports: Hx Appendectomy, Hx Cholecystectomy, Hx Vascular Surgery - Lt AV Fistula and graft; Rt AV fistula - Immunizations Immunizations up to date: Yes Hx Diphtheria, Pertussis, Tetanus Vaccination: Yes Hx Pneumococcal Vaccination: 08/22/11 Review of Systems - Review of Systems Constitutional: No symptoms reported EENT: No symptoms reported Cardiovascular: No symptoms reported Respiratory: No symptoms reported Gastrointestinal: Abdominal pain, Nausea Genitourinary: No symptoms reported Female Genitourinary: No symptoms reported Musculoskeletal: No symptoms reported Skin: No symptoms reported Hematologic/Lymphatic: No symptoms reported Neurological/Psychological: No symptoms reported -: Yes All other systems reviewed and negative Physical Exam - Vital signs Vitals: Temp Pulse Resp BP Pulse Ox 98.0 F 107 H 20 174/114 H 100 02/07/20 11:47 02/07/20 11:47 02/07/20 11:47 02/07/20 11:47 02/07/20 11:47 - Notes Notes: GENERAL: Well-appearing, well-nourished and in no acute distress. HEAD: Atraumatic, normocephalic. EYES: Pupils equal round and reactive to light, extraocular movements intact, sclera anicteric, conjunctiva are normal. ENT: TMs normal, nares patent, oropharynx clear without exudates. Moist mucous membranes. NECK: Normal range of motion, supple without lymphadenopathy or JVD. LUNGS: Breath sounds clear to auscultation bilaterally and equal. No wheezes rales or rhonchi. HEART: Regular rate and rhythm without murmurs, rubs or gallops. ABDOMEN: Soft, mild tenderness throughout, normoactive bowel sounds. No guarding, no rebound. No masses appreciated. EXTREMITIES: Normal range of motion, no pitting or edema. No clubbing or cyanosis. NEUROLOGICAL: Cranial nerves II through XII grossly intact. Normal speech, normal gait. PSYCH: Normal mood, normal affect. SKIN: Warm, Dry, normal turgor, no rashes or lesions noted. Course - Re-evaluation Re-evalutation: 02/07/20 16:48 The patient is here for abdominal pains. She is a high utilizer of the ER. Labs are essentially baseline for her (she has ESRD and she skipped dialysis today and she also has uncontrolled DM). Patient was give a GI Cocktail and one Percocet tablet in the ER with improvement in her pain. CT scan performed since patient said she has never had this type of abdominal pain before. CT scan shows no acute process. Patient was given 10 units of insulin subcu due to her hyperglycemia. Patient is safe for outpatient follow up. Patient told to have dialysis MEL since she skipped today. No need for emergent dialysis right now. - Vital Signs Vital signs: Temp Pulse Resp BP Pulse Ox 98.4 F 107 H 20 181/95 H 99 02/07/20 16:44 02/07/20 11:47 02/07/20 16:44 02/07/20 16:44 02/07/20 16:44 - Laboratory Result Diagrams: 02/07/20 13:09 02/07/20 14:15 Laboratory results interpreted by me: 02/07/20 02/07/20 13:09 14:15 Hgb 11.1 L Hct 34.9 L MCHC 31.9 L RDW 18.0 H Eos % (Auto) 6.4 H Sodium 135.9 L Potassium 5.4 H Chloride 93 L BUN 48 H Creatinine 10.16 H Est GFR ( Amer) 5 L Est GFR (MDRD) Non-Af 4 L Glucose 357 H Alkaline Phosphatase 132 H Total Protein 8.6 H Lipase 455.7 H - Diagnostic Test Radiology reviewed: Image reviewed, Reports reviewed Discharge - Discharge Clinical Impression: Abdominal pain Qualifiers: Abdominal location: generalized Qualified Code(s): R10.84 - Generalized abd ominal pain Condition: Stable Disposition: HOME, SELF-CARE Instructions: Abdominal Pain ([facility]) Additional Instructions: Use Reglan as needed for nausea and abdominal cramps. Use Tylenol for abdominal pains. Have dialysis as soon as you can since you missed today. Follow up with your primary care doctor for better management of your diabetes and if your GI symptoms persist. You had blood work and a CT of your abdomen/pelvis in the ER today which showed no acute process. Prescriptions: Metoclopramide HCl [Reglan] 10 mg PO Q8H PRN #15 tablet PRN Reason: Referrals: HILARY HERNANDEZ MD [Primary Care Provider] - Follow up as needed
[2020-02-07] MEDS ORDERED: MAG HYDROX/AL HYDROX/SIMETH SUSP 30 ML UDCUP PO ONE (14:03)
[2020-02-07] MEDS ORDERED: METOCLOPRAMIDE HCL ORAL SOLN 10 MG/10 ML UDCUP PO ONE (14:03)
[2020-02-07] MEDS ORDERED: LIDOCAINE 2% VISCOUS SOLN 15 ML UDCUP PO ONE (14:03)
[2020-02-07 14:54] LABS: ALBUMIN 4.7 g/dL (3.5-5.0); ALKALINE PHOSPHATASE 132 U/L (38-126); ANION GAP 19 (5-19); ASPARTATE AMINO TRANSFERASE 16 U/L (14-36); BILIRUBIN,DIRECT 0.1 mg/dL (0.0-0.4); BILIRUBIN,TOTAL 0.4 mg/dL (0.2-1.3); BLOOD UREA NITROGEN 48 mg/dL (7-20); CALCIUM 9.2 mg/dL (8.4-10.2); CARBON DIOXIDE 24 mmol/L (22-30); CHLORIDE 93 mmol/L (98-107); GLUCOSE 357 mg/dL (75-110); POTASSIUM 5.4 mmol/L (3.6-5.0); TOTAL PROTEIN 8.6 g/dL (6.3-8.2)
--- NOTE | 2020-02-07 16:10 | RADIOLOGY REPORT (SQ) ---
EXAM DESCRIPTION: CT ABD/PELVIS WITH IV ONLY COMPLETED DATE/TIME: 02/07/2020 3:49 pm REASON FOR STUDY: eval for diverticulitis COMPARISON: None. TECHNIQUE: CT scan of the abdomen and pelvis performed using helical scanning technique with dynamic intravenous contrast injection. No oral contrast. Images reviewed with lung, soft tissue, and bone windows. Reconstructed coronal and sagittal MPR images reviewed. Delayed images for evaluation of the urinary system also acquired. All images stored on PACS. All CT scanners at this facility use dose modulation, iterative reconstruction, and/or weight based d osing when appropriate to reduce radiation dose to as low as reasonably achievable (ALARA). [facility]: Dose Right [facility]: CareDose [facility]: Dose Right [facility]: Teradose 4D [facility]: [employer] CONTRAST TYPE AND DOSE: contrast/concentration: Isovue 350.00 mg/ml; Total Contrast Delivered: 99.0 ml; Total Saline Delivered: 44.3 ml RENAL FUNCTION: None required. The patient is less than 50 years old. RADIATION DOSE: CT Rad equipment meets quality standard of care and radiation dose reduction techniq ues were employed. CTDIvol: 21.1 mGy. DLP: 3593 mGy-cm.. LIMITATIONS: None. FINDINGS: LOWER CHEST: No significant findings. No nodules or infiltrates. LIVER: Normal size. No masses. No dilated ducts. SPLEEN: Normal size. No focal lesions. PANCREAS: No masses. No significant calcifications. No adjacent inflammation or peripancreatic fluid collections. Pancreatic duct not dilated. GALLBLADDER: Surgically absent. ADRENAL GLANDS: No significant masses or asymmetry. RIGHT KIDNEY AND URETER: No solid masses. There are some tiny intrarenal calculi that may be vascul ar. No hydronephrosis or hydroureter. There is no excretion of contrast on the 10 minute delayed i mages. LEFT KIDNEY AND URETER: No solid masses. There are some tiny intrarenal calculi that may be vascula r. No hydronephrosis or hydroureter. There is no excretion of contrast on the 10 minute delayed im ages. AORTA AND VESSELS: No aneurysm. No dissection. Renal arteries, SMA, celiac without stenosis. RETROPERITONEUM: No retroperitoneal adenopathy, hemorrhage or masses. BOWEL AND PERITONEAL CAVITY: No masses or inflammatory changes. No free fluid or peritoneal masses. APPENDIX: Normal. PELVIS: There is no contrast in the bladder at 10 minutes. ABDOMINAL WALL: No masses. No hernias. BONES: No significant or acute findings. OTHER: No other significant finding. IMPRESSION: There is no excretion of contrast by either kidney on the 10 minute delayed images. The tiny intrarenal calculi seen bilaterally in may be vascular. No other significant finding. TECHNICAL DOCUMENTATION: JOB ID: [id number] Quality ID # [id number]: Final reports with documentation of one or more dose reduction techniques (e.g., Au tomated exposure control, adjustment of the mA and/or kV according to patient size, use of iterative reconstruction technique) 2010 [employer] All Rights Reserved Reading location - IP/workstation name: [email or web address]
[2020-02-07] MEDS ORDERED: OXYCODONE-ACETAMINOPHEN 5-325 MG TABLET PO ONE (16:28)
[2020-02-07] MEDS ORDERED: INSULIN REG, HUMAN 100 UNIT/ML 3 ML VIAL (PYX) SUBCUT ONE (16:34)
[2020-02-07 16:48] VITALS: BP 181/95
== END 2020-02-07 17:32 | disposition home or self-care (01) ==
LOC: ER 11:24
DX: R10.84 Generalized abdominal pain (principal); R10.817 Generalized abdominal tenderness; R11.0 Nausea; I12.0 Hypertensive chronic kidney disease with stage 5 chronic kidney disease or end stage renal disease; E11.22 Type 2 diabetes mellitus with diabetic chronic kidney disease; E11.65 Type 2 diabetes mellitus with hyperglycemia; N18.6 End stage renal disease; Z99.2 Dependence on renal dialysis; Z91.15 Patient's noncompliance with renal dialysis; I25.10 Atherosclerotic heart disease of native coronary artery without angina pectoris; J45.909 Unspecified asthma, uncomplicated; Z90.49 Acquired absence of other specified parts of digestive tract; Z87.892 Personal history of anaphylaxis; Z88.8 Allergy status to other drugs, medicaments and biological substances; Z88.1 Allergy status to other antibiotic agents; Z88.6 Allergy status to analgesic agent; Z88.5 Allergy status to narcotic agent; Z88.4 Allergy status to anesthetic agent
CPT/HCPCS: 99284; 36415; 82962; 84702; 83690; 85025; 80053; 74177; J3490; A9270 ×4; J1815

== ENCOUNTER 2020-02-20 04:23 | Emergency (ER) | payer MEDICARE, MEDICAID ==
--- NOTE | 2020-02-20 04:52 | ER Document Report ---
ED General - General Chief Complaint: Breathing Difficulty Stated Complaint: DIFFICULTY BREATHING Time Seen by Provider: 02/20/20 04:46 Primary Care Provider: HILARY HERNANDEZ MD [Primary Care Provider] - Follow up as needed Mode of Arrival: Medic Information source: Patient TRAVEL OUTSIDE OF THE [place] IN LAST 30 DAYS: No - HPI Onset: This morning - suddenly Onset/Duration: Sudden Quality of pain: Pressure Severity: Moderate Pain Level: 3 Associated symptoms: Shortness of breath Exacerbated by: Denies Relieved by: Denies Similar symptoms previously: Yes - several times Recently seen / treated by doctor: Yes - patient had 3.5 hours of her usualy 4.5 hours of dialysis yesterday Notes: 34 year old female with history of ESRD, CAD, CHF, HTN, DM, Asthma, Anemia, Depression here for shortness of breath, wheezing, and chest tightness since early this morning. The patient says these symptoms woke her from sleep today and since her inhaler alone didnt resolve her symptoms she called EMS. The patient denies recent fevers, chills, sweats, nausea, vomiting. The patient says the chest tightness seems to be due to her having trouble breathing. The patient denies radiation of the chest tightness. - Related Data Allergies/Adverse Reactions: aspirin [Aspirin] Allergy (Verified 02/07/20 12:03) Anaphylaxis ciprofloxacin [From Cipro] Allergy (Verified 02/07/20 12:03) Anaphylaxis clindamycin [Clindamycin] Allergy (Verified 02/07/20 12:03) hydrocodone [From Vicodin] Allergy (Verified 02/07/20 12:03) ibuprofen [From Motrin] Allergy (Verified 02/07/20 12:03) Anaphylaxis lidocaine [From Lidoderm] Allergy (Verified 02/07/20 12:03) Generalized rash tramadol HCl [From Ultram] Allergy (Verified 02/07/20 12:03) vancomycin [Vancomycin] Allergy (Verified 02/07/20 12:03) Shortness of Breath nitroglycerin [Nitroglycerin] Adverse Reaction (Intermediate, Verified 02/07/20 12:03) Joint pain Past Medical History - General Information source: Patient - Social History Smoking Status: Never Smoker Frequency of alcohol use: Occasional Drug Abuse: None Lives with: Family Family History: Reviewed & Not Pertinent - Past Medical History Cardiac Medical History: Reports: Hx Congestive Heart Failure, Hx Coronary Artery Disease, Hx Heart Attack, Hx Hypertension, Hx Heart Murmur Pulmonary Medical History: Reports: Hx Asthma, Hx Pneumonia Neurological Medical History: Reports: Hx Migraine, Hx Seizures - only r/t low calcium. Denies: Hx Parkinson's Disease Endocrine Medical History: Reports: Hx Diabetes Mellitus Type 1, Hx Diabetes Mellitus Type 2 Renal/ Medical History: Reports: Hx End Stage Renal Disease - On hemodialysis M-W-F, Hx Hemodialysis, Hx Ovarian Cysts. Denies: Hx Peritoneal Dialysis Malignancy Medical History: GI Medical History: Reports: Hx Gastritis Musculoskeletal Medical History: Skin Medical History: Reports Hx Psoriasis Psychiatric Medical History: Reports: Hx Depression Traumatic Medical History: Infectious Medical History: Past Surgical History: Reports: Hx Appendectomy, Hx Cholecystectomy, Hx Vascular Surgery - Lt AV Fistula and graft; Rt AV fistula - Immunizations Immunizations up to date: Yes Hx Diphtheria, Pertussis, Tetanus Vaccination: Yes Hx Pneumococcal Vaccination: 08/22/11 Review of Systems - Review of Systems Constitutional: No symptoms reported EENT: No symptoms reported Cardiovascular: Chest pain Respiratory: Short of breath, Wheezing Gastrointestinal: No symptoms reported Genitourinary: No symptoms reported Female Genitourinary: No symptoms reported Musculoskeletal: No symptoms reported Skin: No symptoms reported Hematologic/Lymphatic: No symptoms reported Neurological/Psychological: No symptoms reported -: Yes All other systems reviewed and negative Physical Exam - Vital signs Vitals: Resp 17 02/20/20 04:35 - Notes Notes: GENERAL: Well-appearing, well-nourished and in no acute distress. HEAD: Atraumatic, normocephalic. EYES: Pupils equal round and reactive to light, extraocular movements intact, sclera anicteric, conjunctiva are normal. ENT: Nares patent, oropharynx clear without exudates. Moist mucous membranes. NECK: Normal range of motion, supple without lymphadenopathy or JVD. LUNGS: Mild expiratory wheezing bilaterally otherwise normal lung exam. HEART: Regular rate and rhythm without murmurs, rubs or gallops. ABDOMEN: Soft, nontender, normoactive bowel sounds. No guarding, no rebound. No masses appreciated. EXTREMITIES: Normal range of motion, no pitting or edema. No clubbing or cyanosis. NEUROLOGICAL: Cranial nerves II through XII grossly intact. Normal speech, normal gait. PSYCH: Normal mood, normal affect. SKIN: Multiple Chronic Skin Wounds. Skin is warm, valadez, normal turgor, no rashes or lesions noted. Course - Re-evaluation Re-evalutation: 02/20/20 05:47 The patient is here for shortness of breath, wheezing, and chest pain. She missed 1.5 hours of dialysis yesterday. Patient was given a Duoneb and Prednisone in the ER with improvement of symptoms. Chest Xray shows vascular congestion. Patient likely is feeling short of breath due to a combination of asthma and mild volume overload. Patient's EKG is unchanged from prior EKGs and her chest pain sounds more related to her respiratory issues then to primary cardiac. Patient told to have an outpatient cardiac stress test and she was DCed with scripts for an Albuterol inhaler and with a short course of Prednisone. - Vital Signs Vital signs: Temp Pulse Resp BP Pulse Ox 24 H 172/80 H 100 02/20/20 05:00 02/20/20 04:49 02/20/20 05:00 - Laboratory Result Diagrams: 02/20/20 05:18 02/20/20 05:18 Laboratory results interpreted by me: 02/20/20 05:18 RBC 3.61 L Hgb 10.2 L Hct 30.8 L RDW 18.1 H Eos % (Auto) 6.2 H - Diagnostic Test Radiology reviewed: Image reviewed, Reports reviewed - EKG Interpretation by Id EKG shows normal: Sinus rhythm, Intervals Rate: Normal Lorane/QRS: Left axis deviation Voltage: Consistant with LVH When compared to previous EKG there are: No significant change Additional EKG results interpreted by me: 02/20/20 05:11 T wave inversions in aVR, aVL Discharge - Discharge Clinical Impression: Asthma Qualifiers: Asthma severity: mild Asthma persistence: intermittent Asthma complication type: uncomplicated Qualified Code(s): J45.20 - Mild intermittent asthma, uncomplicated Chest pain Qualifiers: Chest pain type: unspecified Qualified Code(s): R07.9 - Chest pain, unspecified Condition: Stable Disposition: HOME, SELF-CARE Instructions: Asthma ([facility]), Chest Pain of Unclear Cause ([facility]) Additional Instructions: Follow up with your primary care doctor, your Health Care Legal Assistant, and your Cattle [facility]pper. Tell your doctors about your ER visit today for shortness of juvenal th and chest pain. Use albuterol as needed for shortness of breath and wheezing. Take prednisone as prescribed. Have an outpatient cardiac stress test. Prescriptions: Prednisone [Deltasone 20 mg Tablet] 2 tab PO DAILY 5 Days tablet Albuterol Sulfate [Proair HFA Inhalation Aerosol 8.5 gm MDI] 2 puff IH Q4H PRN #1 mdi PRN Reason: Referrals: HILARY HERNANDEZ MD [Primary Care Provider] - Follow up as needed
[2020-02-20 05:32] LABS: ABSOLUTE BASOPHILS # (AUTO) 0.1 10^3/uL (0.0-0.2); ABSOLUTE EOSINOPHILS # (AUTO) 0.5 10^3/uL (0.0-0.6); ABSOLUTE LYMPHOCYTES (AUTO) 1.9 10^3/uL (0.5-4.7); ABSOLUTE MONOCYTES (AUTO) 0.7 10^3/uL (0.1-1.4); ABSOLUTE NEUT (AUTO) 4.3 10^3/uL (1.7-8.2); EOSINOPHILS % (AUTO) 6.2 % (0-6); HEMATOCRIT 30.8 % (36.0-47.0); HEMOGLOBIN 10.2 g/dL (12.0-15.5); MEAN CORPUSCULAR HEMOGLOBIN 28.2 pg (27.0-33.4); MEAN CORPUSCULAR VOLUME 85 fl (80-97); MONOCYTES % (AUTO) 9.4 % (3-13); PLATELET COUNT 281 10^3/uL (150-450); RED BLOOD COUNT 3.61 10^6/uL (3.72-5.28); RED CELL DISTRIBUTION WIDTH 18.1 % (11.5-14.0); SEGMENTED NEUTROPHILS % (AUTO) 57.4 % (42-78); TOTAL CELLS COUNTED % (AUTO) 100 %; WHITE BLOOD COUNT 7.5 10^3/uL (4.0-10.5)
[2020-02-20] MEDS ORDERED: IPRATROPIUM/ALBUTEROL 0.5-2.5 MG/3 ML AMPUL NEB ONE (05:48)
[2020-02-20] MEDS ORDERED: PREDNISONE 20 MG TABLET PO ONE (05:48)
--- NOTE | 2020-02-20 05:51 | RADIOLOGY REPORT (SQ) ---
PA and lateral chest radiograph: 02/20/2020 4:49 AM CDT History: 34-year old patient with dyspnea. Comparison: Chest x-ray from 01/14/2020 Findings: The cardiomediastinal silhouette is enlarged. There are increasing bilateral airspace opacities with interstitial and central vascular prominence. No pneumothorax is seen. There is blunting of both costophrenic angles, suggestive of trace effusions. Right subclavian and axillary extensor noted. Impression: There are increasing bilateral airspace opacities with interstitial and central vascular prominence, most likely reflecting edema.
[2020-02-20 06:02] LABS: NT PRO BNP 7590 pg/mL (<125)
[2020-02-20 06:07] LABS: TROPONIN I < 0.012 ng/mL
[2020-02-20 06:14] LABS: ANION GAP 13 (5-19); BLOOD UREA NITROGEN 50 mg/dL (7-20); CALCIUM 8.5 mg/dL (8.4-10.2); CARBON DIOXIDE 25 mmol/L (22-30); CHLORIDE 95 mmol/L (98-107); GLUCOSE 310 mg/dL (75-110); POTASSIUM 4.8 mmol/L (3.6-5.0)
[2020-02-20 07:10] LABS: ARTERIAL BLOOD BASE EXCESS -0.3 mmol/L; ARTERIAL BLOOD H2CO3 1.43 mmol/L (1.05-1.35); ARTERIAL BLOOD HCO3 25.6 mmol/L (20-24); ARTERIAL BLOOD O2 SATURATION 83.2 % (94-98); ARTERIAL BLOOD PCO2 47.6 mmHg (35-45); ARTERIAL BLOOD PH 7.35 (7.35-7.45); ARTERIAL BLOOD PO2 49.9 mmHg (80-100); ARTERIAL BLOOD TOTAL CO2 27.1 mmol/L (21-25)
[2020-02-20 07:11] LABS: ARTERIAL BLOOD FIO2 28%
[2020-02-20 08:45] VITALS: BP 166/106
--- NOTE | 2020-02-20 09:23 | EKG REPORT ---
SEVERITY:- ABNORMAL ECG - SINUS RHYTHM FIRST DEGREE AV BLOCK CONSIDER LEFT VENTRICULAR HYPERTROPHY PROLONGED QT INTERVAL : Confirmed by: Daniela Lemons 20-Feb-2020 09:23:09
== END 2020-02-20 08:59 | disposition home or self-care (01) ==
LOC: ER 04:23
DX: J45.20 Mild intermittent asthma, uncomplicated (principal); I12.0 Hypertensive chronic kidney disease with stage 5 chronic kidney disease or end stage renal disease; E11.22 Type 2 diabetes mellitus with diabetic chronic kidney disease; N18.6 End stage renal disease; Z99.2 Dependence on renal dialysis; Z91.15 Patient's noncompliance with renal dialysis; I25.10 Atherosclerotic heart disease of native coronary artery without angina pectoris; R06.02 Shortness of breath; R07.89 Other chest pain; Z79.899 Other long term (current) drug therapy; Z87.01 Personal history of pneumonia (recurrent); Z87.892 Personal history of anaphylaxis; Z88.8 Allergy status to other drugs, medicaments and biological substances; Z88.1 Allergy status to other antibiotic agents; Z88.4 Allergy status to anesthetic agent; Z88.6 Allergy status to analgesic agent; Z88.5 Allergy status to narcotic agent
CPT/HCPCS: 93005; 94640; 99285; 36415; 82803; 85025; 80048; 84484; 83880; 71046; 93010; 36600; A9270 ×2; J7512; J7620

== ENCOUNTER → 2020-02-27 | Outpatient (CLI) | payer MEDICARE, MEDICAID ==
--- NOTE | 2020-02-27 16:44 | ER RDC ASSESSMENT REPORT ---
Intake - In the Last 14 days Have you been in close contact with someone CONFIRMED: No Worked in Healthcare?: No - Symptoms Subjective Fever(Harvey feverish): Yes Chills: Yes Muscule Aches: Yes Runny Nose: Yes Sore Throat: No Cough (New or worsening chronic cough): No Shortness of breath: Yes Nausea or Vomiting: Yes Headache: Yes Abdominal Pain: Yes Diarrhea(3 or more loose stools in last 24 hours): Yes - Do you have any of the following Chronic lung disease: Asthma or emphysema or COPD: Yes Chronic Lung Disease Comment: With a history of asthma Cystic Fibrosis: No Diabetes: Yes Diabetes Comment: Reports a history of type 1 diabetes High Blood Pressure: Yes Cardiovascular Disease: Yes Cardiovascular Disease Comment: Reports a history of CHF Chronic Kidney Disease: Yes Chronic Kidney Disease Comment: Patient reports is on dialysis had dialysis yesterday in the ED Chronic Liver Disease: No Weak immune system due to disease or medication: Yes Immune System Comment: Dialysis patient Neurologic condition that limits movement: No Developmental delay - Moderate to Severe: No Recent (within past 2 weeks) or current : No Morbid Obesity (>100 pounds over ideal weight): Yes Obesity Comment: Patient height 5 foot 7 inches weight 117 kg - Objective Temperature: 98.7 F Pulse Rate: 91 Respiratory Rate: 20 Blood Pressure: 136/82 O2 Sat by Pulse Oximetry: 96 Objective: Given above, testing performed: If Testing Performed: Test Specimen Type Sent to General - General Information source: Patient Notes: Patient here for Covid testing. was initially scheduled through her Dialysis team for yesterday. She was feeling short of breath at the time and was sent to the ED from Dialysis for evaluation. She was diaylized in the ED. Today improved from her SOB and does have some continued respiratory symptoms that started on Wednesday. - Related Data Allergies/Adverse Reactions: aspirin [Aspirin] Allergy (Verified 02/26/20 13:40) Anaphylaxis ciprofloxacin [From Cipro] Allergy (Verified 02/26/20 13:40) Anaphylaxis clindamycin [Clindamycin] Allergy (Verified 02/26/20 13:40) hydrocodone [From Vicodin] Allergy (Verified 02/26/20 13:40) ibuprofen [From Motrin] Allergy (Verified 02/26/20 13:40) Anaphylaxis lidocaine [From Lidoderm] Allergy (Verified 02/26/20 13:40) Generalized rash tramadol HCl [From Ultram] Allergy (Verified 02/26/20 13:40) vancomycin [Vancomycin] Allergy (Verified 02/26/20 13:40) Shortness of Breath nitroglycerin [Nitroglycerin] Adverse Reaction (Intermediate, Verified 02/26/20 13:40) Joint pain Past Medical History - Social History Smoking Status: Never Smoker Family History: Reviewed & Not Pertinent - Past Medical History Cardiac Medical History: Reports: Hx Congestive Heart Failure, Hx Coronary Artery Disease, Hx Heart Attack, Hx Hypertension, Hx Heart Murmur Pulmonary Medical History: Reports: Hx Asthma, Hx Pneumonia Neurological Medical History: Reports: Hx Migraine, Hx Seizures - only r/t low calcium. Denies: Hx Parkinson's Disease Endocrine Medical History: Reports: Hx Diabetes Mellitus Type 1, Hx Diabetes Mellitus Type 2 Renal/ Medical History: Reports: Hx End Stage Renal Disease - On hemodialysis --, Hx Hemodialysis, Hx Ovarian Cysts. Denies: Hx Peritoneal Dialysis Malignancy Medical History: GI Medical History: Reports: Hx Gastritis Musculoskeletal Medical History: Skin Medical History: Reports Hx Psoriasis Psychiatric Medical History: Reports: Hx Depression Traumatic Medical History: Infectious Medical History: Past Surgical History: Reports: Hx Appendectomy, Hx Cholecystectomy, Hx Vascular Surgery - Lt AV Fistula and graft; Rt AV fistula Physical Exam - General General appearance: Appears well, Alert In distress: None Notes: PHYSICAL EXAMINATION: GENERAL: Well-appearing and in no acute distress. HEAD: Atraumatic, normocephalic. EYES: sclera anicteric, conjunctiva are normal. ENT: nares patent. Moist mucous membranes. NECK: Normal range of motion, supple without lymphadenopathy LUNGS: CTAB and equal. No wheezes rales or rhonchi. Respirations even and unlabored. Lung sounds clear. HEART: Regular rate and rhythm without murmurs ABDOMEN: Soft, nontender, normal bowel sounds, no guarding. EXTREMITIES: No cyanosis. NEUROLOGICAL: Normal speech. PSYCH: Normal mood, normal affect. SKIN: Warm, Dry, normal turgor, Diagnostic Results Laboratory Results: Patient informed of negative rapid strep and negative rapid flu results. pending strep culture. Pending Covid Testing Results. Intructions for COVID provided to include: As a person under investigation for Covid 19, the [facility] and Human Services, division of public health advises you to adhere to the following guidance until your test results are reported to you. If your test result is positive, you will receive additional information from your provider and your local health department at that time. Remain at home until you are cleared by the health provider or public health authorities. Keep a log of visitors to your home, notify any visitors to your home of your isolation status. If you plan to move to a new address or leave the county, notify the local health department in your County. Call your doctor or seek care if you have an urgent medical need. Before seeking medical care, call ahead to get instructions from the provider before arriving at the medical office clinic or hospital. Notify them that you are being tested for the virus that causes Covid 19 so that arrangements can be made, as necessary, to prevent transmission to others in the healthcare setting. Next, notify the local health department in your county. If a medical emergency arises and you need to call 911, inform the first responders that you are being tested for the virus that causes Covid 19. Next, notify the local health department in your county. Patient Education/Counseling Counseling/Education: Patient presents with upper respiratory symptoms worrisome for possible Covid 19. Patient does not have emergency worring symptoms such as difficulty breathing, shortness of breath, chest pain, pressure, confusion or cyanosis. Patient appears suitable for discharge. Patient's vital signs are stable and patient is nontoxic in appearance. Good return precautions have been discussed with patient, patient verbalized understanding and is agreeable with discharge plan of care at this time. Patient instructed for follow up with PCP for persistent or worsening symptoms. To the ED if needed. RDC Discharge - Discharge Clinical Impression: COVID - 19 SCREENING
[2020-02-27 16:49] VITALS: BP 136/82
[2020-02-27 17:13] LABS: A TYPE INFLUENZA AG NEGATIVE (NEGATIVE); B INFLUENZA AG NEGATIVE (NEGATIVE)
== END ==
LOC: RDC 16:14
PROVIDERS: ATTEND Nurse Practitioner Family
DX: Z20.828 Contact with and (suspected) exposure to other viral communicable diseases (principal); R06.02 Shortness of breath; R50.9 Fever, unspecified; R11.2 Nausea with vomiting, unspecified; R09.89 Other specified symptoms and signs involving the circulatory and respiratory systems; R10.9 Unspecified abdominal pain; R51 Headache; R19.7 Diarrhea, unspecified; I12.0 Hypertensive chronic kidney disease with stage 5 chronic kidney disease or end stage renal disease; N18.6 End stage renal disease; E10.22 Type 1 diabetes mellitus with diabetic chronic kidney disease; M79.10 Myalgia, unspecified site; E66.01 Morbid (severe) obesity due to excess calories; Z88.1 Allergy status to other antibiotic agents; Z88.6 Allergy status to analgesic agent; Z88.8 Allergy status to other drugs, medicaments and biological substances
CPT/HCPCS: 87070; 87880; 87804; U0003; G0463; 87635; 99211

== ENCOUNTER 2020-03-04 21:13 | Emergency (ER) | payer MEDICARE, MEDICAID ==
--- NOTE | 2020-03-04 22:27 | ER Document Report ---
Entered by JAVY CONTE SCRIBE 03/04/20 [id number] Acting as scribe for:KIERA RASHEED DO ED GI/ - General Chief Complaint: Abdominal Pain Stated Complaint: ABDOMINAL PAIN Time Seen by Provider: 03/04/20 22:11 Primary Care Provider: HILARY HERNANDEZ MD [Primary Care Provider] - Follow up as needed Mode of Arrival: Medic Information source: Patient Notes: This 34 year old female patient with a history of diabetes on HD MWF brought in by EMS presents to the ED today with complaints of epigastric pain with associated intermittent nausea/vomiting for the past x8 days, worse this evening. Patient reports that lying on her side helps alleviate some of the pain. She states that she took Zofran and Compazine without relief. She also no cara diarrhea and states that her last bowel movement was x2 days ago. She did receive dialysis treatment today. She reports a history of gastroparesis. Patient is followed by Dr. Kwon for nephrology. TRAVEL OUTSIDE OF THE [place] IN LAST 30 DAYS: No - Related Data Allergies/Adverse Reactions: aspirin [Aspirin] Allergy (Verified 02/26/20 13:40) Anaphylaxis ciprofloxacin [From Cipro] Allergy (Verified 02/26/20 13:40) Anaphylaxis clindamycin [Clindamycin] Allergy (Verified 02/26/20 13:40) hydrocodone [From Vicodin] Allergy (Verified 02/26/20 13:40) ibuprofen [From Motrin] Allergy (Verified 02/26/20 13:40) Anaphylaxis lidocaine [From Lidoderm] Allergy (Verified 02/26/20 13:40) Generalized rash tramadol HCl [From Ultram] Allergy (Verified 02/26/20 13:40) vancomycin [Vancomycin] Allergy (Verified 02/26/20 13:40) Shortness of Breath nitroglycerin [Nitroglycerin] Adverse Reaction (Intermediate, Verified 02/26/20 13:40) Joint pain Past Medical History - General Information source: Patient, [facility] Records - Social History Smoking Status: Never Smoker Cigarette use (# per day): No Chew tobacco use (# tins/day): No Smoking Education Provided: No Frequency of alcohol use: Rare Drug Abuse: None Lives with: Family Family History: Reviewed & Not Pertinent Patient has suicidal ideation: No Patient has homicidal ideation: No - Past Medical History Cardiac Medical History: Reports: Hx Congestive Heart Failure, Hx Coronary Artery Disease, Hx Heart Attack, Hx Hypertension, Hx Heart Murmur Pulmonary Medical History: Reports: Hx Asthma, Hx Pneumonia Neurological Medical History: Reports: Hx Migraine, Hx Seizures - only r/t low calcium Endocrine Medical History: Reports: Hx Diabetes Mellitus Type 1, Hx Diabetes Mellitus Type 2 Renal/ Medical History: Reports: Hx End Stage Renal Disease - On hemodialysis M-W-, Hx Hemodialysis, Hx Ovarian Cysts Malignancy Medical History: GI Medical History: Reports: Hx Gastritis Musculoskeletal Medical History: Skin Medical History: Reports Hx Psoriasis Psychiatric Medical History: Reports: Hx Depression Traumatic Medical History: Infectious Medical History: Past Surgical History: Reports: Hx Appendectomy, Hx Cholecystectomy, Hx Vascular Surgery - Lt AV Fistula and graft; Rt AV fistula - Immunizations Immunizations up to date: Yes Hx Diphtheria, Pertussis, Tetanus Vaccination: Yes Hx Pneumococcal Vaccination: 08/22/11 Review of Systems - Review of Systems Constitutional: No symptoms reported EENT: No symptoms reported Cardiovascular: No symptoms reported Gastrointestinal: See HPI, Abdominal pain, Diarrhea, Nausea, Vomiting Genitourinary: No symptoms reported Female Genitourinary: No symptoms reported Musculoskeletal: No symptoms reported Skin: No symptoms reported Hematologic/Lymphatic: No symptoms reported Neurological/Psychological: No symptoms reported -: Yes All other systems reviewed and negative Physical Exam - Vital signs Vitals: Resp Pulse Ox 20 98 03/04/20 21:16 03/04/20 21:16 - General General appearance: Alert, Other - Chronically ill appearing. Appears older than stated age. - HEENT Head: Normocephalic, Atraumatic Eyes: Normal Pupils: PERRL - Respiratory Respiratory status: No respiratory distress Chest status: Nontender Breath sounds: Normal Chest palpation: Normal - Cardiovascular Rhythm: Regular Heart sounds: Normal auscultation Murmur: No Friction rub: No Gallop: None auscultated - Abdominal Inspection: Obese Distension: No distension Bowel sounds: Normal Tenderness: Tender - Mild epigastric tenderness to palpation Organomegaly: No organomegaly - Back Back: Normal, Nontender - Extremities General upper extremity: Other - Palpable thrill noted in RUE from dialysis acc ess General lower extremity: Normal inspection - Neurological Neuro grossly intact: Yes Hellen Coma Scale Eye Opening: Spontaneous Hellen Coma Scale Verbal: Oriented Hellen Coma Scale Motor: Obeys Commands [place] Coma Scale Total: 15 - Psychological Associated symptoms: Normal affect, Normal mood - Skin Skin Temperature: Warm Skin Moisture: Dry Skin Color: Normal Course - Vital Signs Vital signs: Temp Pulse Resp BP Pulse Ox 97.6 F 23 H 95 03/04/20 22:00 03/04/20 22:00 03/04/20 22:00 - Laboratory Result Diagrams: 03/04/20 21:40 03/04/20 21:40 Laboratory results interpreted by me: 03/04/20 03/04/20 21:40 21:40 RBC 3.39 L Hgb 9.5 L Hct 29.1 L RDW 18.0 H Sodium 135.6 L BUN 21 H Creatinine 5.10 H Est GFR ( Amer) 12 L Est GFR (MDRD) Non-Af 10 L Glucose 248 H Lipase 340.8 H - EKG Interpretation by Me EKG shows normal: Sinus rhythm Rate: Normal Rhythm: NSR - NSR Left [place] [address] elevation or depression my interpretation. Discharge - Discharge Clinical Impression: Epigastric pain, Nausea, Vomiting with nausea, not intractable Hypertension Qualifiers: Hypertension type: unspecified Qualified Code(s): I10 - Essential (primary) hypertension Condition: Good Disposition: HOME, SELF-CARE Instructions: Abdominal Pain ([facility]), Antinausea Medication ([facility]), Reglan ([facility]), Vomiting ([facility]) Additional Instructions: Call Dr. Mancera this morning for follow up. Please return here for any problems or any concerns including but not limited to chest pain, shortness of breath or other concerns. Referrals: HILARY HERNANDEZ MD [Primary Care Provider] - Follow up as needed I personally performed the services described in the documentation, reviewed and edited the documentation which was dictated to the scribe in my presence, and it accurately records my words and actions.
[2020-03-04] MEDS ORDERED: DIPHENHYDRAMINE HCL 50 MG/ML VIAL IV ONE (23:11)
[2020-03-04] MEDS ORDERED: METOCLOPRAMIDE HCL INJ/PF 10 MG/2 ML SDV IV ONE (23:11)
[2020-03-04] MEDS ORDERED: FENTANYL CITRATE INJ/PF 100 MCG/2 ML AMPUL IV ONE (23:11)
[2020-03-04 23:27] LABS: ABSOLUTE BASOPHILS # (AUTO) 0.1 10^3/uL (0.0-0.2); ABSOLUTE EOSINOPHILS # (AUTO) 0.3 10^3/uL (0.0-0.6); ABSOLUTE LYMPHOCYTES (AUTO) 1.1 10^3/uL (0.5-4.7); ABSOLUTE MONOCYTES (AUTO) 0.4 10^3/uL (0.1-1.4); ABSOLUTE NEUT (AUTO) 6.2 10^3/uL (1.7-8.2); BASOPHILS % (AUTO) 0.7 % (0-2); EOSINOPHILS % (AUTO) 3.3 % (0-6); HEMATOCRIT 29.1 % (36.0-47.0); HEMOGLOBIN 9.5 g/dL (12.0-15.5); LYMPHOCYTES % (AUTO) 13.8 % (13-45); MEAN CORPUSCULAR HEMOGLOBIN 28.1 pg (27.0-33.4); MEAN CORPUSCULAR HGB CONC 32.6 g/dL (32.0-36.0); MEAN CORPUSCULAR VOLUME 86 fl (80-97); MONOCYTES % (AUTO) 4.7 % (3-13); PLATELET COUNT 340 10^3/uL (150-450); RED BLOOD COUNT 3.39 10^6/uL (3.72-5.28); SEGMENTED NEUTROPHILS % (AUTO) 77.5 % (42-78); TOTAL CELLS COUNTED % (AUTO) 100 %
[2020-03-04 23:35] LABS: ALBUMIN 4.4 g/dL (3.5-5.0); ALKALINE PHOSPHATASE 102 U/L (38-126); ANION GAP 12 (5-19); ASPARTATE AMINO TRANSFERASE 31 U/L (14-36); BILIRUBIN,DIRECT 0.2 mg/dL (0.0-0.4); BILIRUBIN,TOTAL 0.5 mg/dL (0.2-1.3); BLOOD UREA NITROGEN 21 mg/dL (7-20); CALCIUM 8.9 mg/dL (8.4-10.2); CARBON DIOXIDE 25 mmol/L (22-30); CHLORIDE 99 mmol/L (98-107); GLUCOSE 248 mg/dL (75-110); TOTAL PROTEIN 8.2 g/dL (6.3-8.2)
[2020-03-05] MEDS ORDERED: ONDANSETRON HCL INJ/PF 4 MG/2 ML SDV IV ONE (01:10)
[2020-03-05] MEDS ORDERED: MORPHINE SULFATE 10 MG/ML INJ IV ONE (01:10)
[2020-03-05 03:00] VITALS: BP 112/35
--- NOTE | 2020-03-05 08:09 | EKG REPORT ---
SEVERITY:- ABNORMAL ECG - SINUS RHYTHM FIRST DEGREE AV BLOCK PROBABLE LEFT ATRIAL ABNORMALITY BORDERLINE LEFT AXIS DEVIATION = LAFB ABNORMAL Q SUGGESTS ANTERIOR INFARCT NONSPECIFIC T ABNORMALITIES, ANT-LAT LEADS PROLONGED QT INTERVAL : Confirmed by: Ciro Beckford MD 05-Mar-2020 08:09:08
== END 2020-03-05 03:42 | disposition home or self-care (01) ==
LOC: ER 21:13
DX: R10.13 Epigastric pain (principal); I11.0 Hypertensive heart disease with heart failure; R11.2 Nausea with vomiting, unspecified; R19.7 Diarrhea, unspecified; R10.9 Unspecified abdominal pain; E11.9 Type 2 diabetes mellitus without complications; Z88.1 Allergy status to other antibiotic agents; Z88.8 Allergy status to other drugs, medicaments and biological substances; I50.9 Heart failure, unspecified; I25.10 Atherosclerotic heart disease of native coronary artery without angina pectoris; J45.909 Unspecified asthma, uncomplicated
CPT/HCPCS: 93005; 99284; 96374; 96375; 36415; 83690; 85025; 80053; 93010; J1200; J3010; J2765; J2270; J2405

== ENCOUNTER 2020-03-11 07:40 | Emergency (ER) | payer MEDICARE, MEDICAID ==
[2020-03-11] MEDS ORDERED: FUROSEMIDE INJ/PF 20 MG/2 ML SDV IV ONE (07:52)
[2020-03-11 08:27] LABS: ABSOLUTE EOSINOPHILS # (AUTO) 0.1 10^3/uL (0.0-0.6); ABSOLUTE LYMPHOCYTES (AUTO) 0.9 10^3/uL (0.5-4.7); ABSOLUTE MONOCYTES (AUTO) 0.5 10^3/uL (0.1-1.4); ABSOLUTE NEUT (AUTO) 13.2 10^3/uL (1.7-8.2); BASOPHILS % (AUTO) 0.3 % (0-2); EOSINOPHILS % (AUTO) 0.4 % (0-6); HEMATOCRIT 26.4 % (36.0-47.0); HEMOGLOBIN 8.4 g/dL (12.0-15.5); LYMPHOCYTES % (AUTO) 6.2 % (13-45); MEAN CORPUSCULAR HEMOGLOBIN 27.4 pg (27.0-33.4); MEAN CORPUSCULAR VOLUME 86 fl (80-97); MONOCYTES % (AUTO) 3.2 % (3-13); PLATELET COUNT 297 10^3/uL (150-450); RED BLOOD COUNT 3.08 10^6/uL (3.72-5.28); SEGMENTED NEUTROPHILS % (AUTO) 89.9 % (42-78); TOTAL CELLS COUNTED % (AUTO) 100 %; WHITE BLOOD COUNT 14.6 10^3/uL (4.0-10.5)
[2020-03-11 08:36] LABS: INTERNATIONAL RATION (INR) 1.08
[2020-03-11 08:37] LABS: PARTIAL THROMBOPLASTIN TIME 39.4 SEC (23.5-35.8)
[2020-03-11] MEDS ORDERED: ONDANSETRON HCL INJ/PF 4 MG/2 ML SDV IV ONE (08:40)
[2020-03-11] MEDS ORDERED: FENTANYL CITRATE INJ/PF 100 MCG/2 ML AMPUL IV ONE (08:41)
[2020-03-11 08:52] LABS: ALBUMIN 4.4 g/dL (3.5-5.0); ALKALINE PHOSPHATASE 91 U/L (38-126); ANION GAP 14 (5-19); ASPARTATE AMINO TRANSFERASE 16 U/L (14-36); BILIRUBIN,DIRECT 0.4 mg/dL (0.0-0.4); BILIRUBIN,TOTAL 0.7 mg/dL (0.2-1.3); BLOOD UREA NITROGEN 51 mg/dL (7-20); CALCIUM 8.7 mg/dL (8.4-10.2); CARBON DIOXIDE 24 mmol/L (22-30); CHLORIDE 99 mmol/L (98-107); GLUCOSE 238 mg/dL (75-110)
--- NOTE | 2020-03-11 08:54 | RADIOLOGY REPORT (SQ) ---
EXAM DESCRIPTION: CHEST SINGLE VIEW IMAGES COMPLETED DATE/TIME: 03/11/2020 8:27 am REASON FOR STUDY: dyspnea COMPARISON: 02/26/2020 EXAM PARAMETERS: NUMBER OF VIEWS: One view. TECHNIQUE: Single frontal radiographic view of the chest acquired. RADIATION DOSE: NA LIMITATIONS: None. FINDINGS: LUNGS AND PLEURA: Diffuse bilateral patchy interstitial alveolar airspace disease, similar to prior. Possible trace bilateral effusions. No pneumothorax. MEDIASTINUM AND HILAR STRUCTURES: No discrete mass. HEART AND VASCULAR STRUCTURES: Enlarged cardiac silhouette with central vascular congestion, stable. BONES: No acute findings. HARDWARE: Right vascular stents overlie axillary and subclavian veins. OTHER: No other significant finding. IMPRESSION: Stable enlarged cardiac silhouette and diffuse bilateral interstitial and alveolar opaci ties, likely edema. TECHNICAL DOCUMENTATION: JOB ID: [id number] 2010 [employer]- All Rights Reserved Reading location - IP/workstation name: [email or web address]
--- NOTE | 2020-03-11 08:57 | ER Document Report ---
ED General - General Chief Complaint: Chest Pain Stated Complaint: CHEST PAIN Time Seen by Provider: 03/11/20 07:51 Primary Care Provider: HILARY HERNANDEZ MD [Primary Care Provider] - Follow up as needed TRAVEL OUTSIDE OF THE [place] IN LAST 30 DAYS: No - HPI Notes: Chief complaint: Difficulty breathing and chest tightness 34 year old female with history of ESRD, CAD, CHF, HTN, DM, Asthma, Anemia, Depression here for shortness of breath, wheezing, and chest tightness since early this morning. The patient says these symptoms woke her from sleep today and since her inhaler alone didnt resolve her symptoms she called EMS. The patient denies recent fevers, chills, sweats, nausea, vomiting. The patient says the chest tightness seems to be due to her having trouble breathing. The patient denies radiation of the chest tightness. This lady normally dialyzes Wednesday and says that she got a full dialysis run on Wednesday. She was supposed to dialyze at 1030 this morning but felt she could not wait and therefore called EMS. I have been back through a lot of her old records here and it seems that this lady is notoriously noncompliant with dietary measures and usual medications and frequently shows up on Mondays after such indiscretions over the weekend. - Related Data Allergies/Adverse Reactions: aspirin [Aspirin] Allergy (Verified 03/11/20 08:31) Anaphylaxis ciprofloxacin [From Cipro] Allergy (Verified 03/11/20 08:31) Anaphylaxis clindamycin [Clindamycin] Allergy (Verified 03/11/20 08:31) hydrocodone [From Vicodin] Allergy (Verified 03/11/20 08:31) ibuprofen [From Motrin] Allergy (Verified 03/11/20 08:31) Anaphylaxis lidocaine [From Lidoderm] Allergy (Verified 03/11/20 08:31) Generalized rash tramadol HCl [From Ultram] Allergy (Verified 03/11/20 08:31) vancomycin [Vancomycin] Allergy (Verified 03/11/20 08:31) Shortness of Breath nitroglycerin [Nitroglycerin] Adverse Reaction (Intermediate, Verified 03/11/20 08:31) Joint pain Past Medical History - General Information source: Patient, Emergency Med Personnel, [facility] Records - Social History Smoking Status: Never Smoker Chew tobacco use (# tins/day): No Frequency of alcohol use: None Drug Abuse: None Family History: Reviewed & Not Pertinent Patient has suicidal ideation: No Patient has homicidal ideation: No - Past Medical History Cardiac Medical History: Reports: Hx Congestive Heart Failure, Hx Coronary Artery Disease, Hx Hypertension, Hx Heart Murmur Pulmonary Medical History: Reports: Hx Asthma, Hx Pneumonia Neurological Medical History: Reports: Hx Migraine, Hx Seizures - only r/t low calcium. Denies: Hx Parkinson's Disease Endocrine Medical History: Reports: Hx Diabetes Mellitus Type 1, Hx Diabetes Mellitus Type 2 Renal/ Medical History: Reports: Hx End Stage Renal Disease - On hemodialysis M-W-, Hx Hemodialysis, Hx Ovarian Cysts. Denies: Hx Peritoneal Dialysis Malignancy Medical History: GI Medical History: Reports: Hx Gastritis Musculoskeletal Medical History: Skin Medical History: Reports Hx Psoriasis Psychiatric Medical History: Reports: Hx Depression Traumatic Medical History: Infectious Medical History: Past Surgical History: Reports: Hx Appendectomy, Hx Cholecystectomy, Hx Vascular Surgery - Lt AV Fistula and graft; Rt AV fistula - Immunizations Immunizations up to date: Yes Hx Diphtheria, Pertussis, Tetanus Vaccination: Yes Hx Pneumococcal Vaccination: 08/22/11 Review of Systems - Review of Systems Notes: Constitutional: Negative for fever. HENT: Negative for sore throat. Eyes: Negative for visual changes. Cardiovascular: As per HPI. Respiratory: As per HPI. Gastrointestinal: Negative for abdominal pain, vomiting or diarrhea. Genitourinary: Negative for dysuria. Musculoskeletal: Negative for musculoskeletal pain. Skin: Negative for rash. Neurological: Negative for headaches, weakness or numbness. 10 point ROS negative except as marked above and in HPI. Physical Exam - Vital signs Vitals: BP Pulse Ox 184/97 H 98 03/11/20 07:44 03/11/20 07:44 - Notes Notes: GENERAL: Somewhat obese female appearing approximately stated age who appears dyspneic. SKIN: Good turgor no rashes. HEAD: Normocephalic atraumatic. EYES: PERRLA. EOMI. Conjunctivae and sclerae clear. EARS: CANALS AND TMS CLEAR. NOSE: CLEAR. MOUTH: Moist mucosa. Good dentition. No stridor or edema. No drooling. NECK: Supple. No masses or thyromegaly. No adenopathy. Carotids 2+ without bruits. Prominent JVD at 30 degrees elevation bilaterally. BACK: Symmetrical without tenderness. CHEST: Tachypneic with mild use of accessory muscles. Diminished breath sounds both bases with bilateral wheezing. HEART: Mild diffuse chest wall tenderness. Regular rhythm. No murmur gallop or rub. ABDOMEN: Soft nontender without masses, organomegaly or rebound. Bowel sounds normally active. No bruits. GENITALIA: Deferred. EXTREMITIES: AV fistula present right upper arm with positive thrill and bruit. Bilateral 1+ pretibial edema. No calf tenderness. Cap refill less than 1.5 seconds. Dorsalis pedis and posterior tibial pulses 3+ and symmetrical. NEUROLOGICAL: GCS 15. Alert and oriented x3. Fluent speech. Cranial nerves II through XII intact. Sensorimotor and cerebellar normal. Normal tone. PSYCHIATRIC: Appropriate affect. Course - Re-evaluation Re-evalutation: 03/11/20 10:03 Patient is a dialysis patient well-known to this department who frequently comes in on Mondays with fluid overload as she is done again today. She also complained of chest tightness radiating into her back. EKG x2 shows no acute ST changes. Troponin is normal. Patient is clinically fluid overloaded and requiring oxygen via nonrebreather although she is holding her good saturation with this. Blood pressure is also elevated around 180/95. Chest x-ray shows bilateral interstitial infiltrates consistent with fluid overload. Findings are discussed with Dr. Gustavo Kwon from nephrology who requests that she be admitted by her primary care doctor to fourth floor and he will have her dialyzed as soon as possible. I have discussed case with her primary provider Dr. Hernandez who is agreeable. - Vital Signs Vital signs: Temp Pulse Resp BP Pulse Ox 97.8 F 25 H 191/118 H 99 03/11/20 08:11 03/11/20 08:12 03/11/20 08:12 03/11/20 08:12 - Laboratory Result Diagrams: 03/11/20 08:07 03/11/20 08:07 Laboratory results interpreted by me: 03/11/20 03/11/20 03/11/20 08:07 08:07 08:07 WBC 14.6 H RBC 3.08 L Hgb 8.4 L Hct 26.4 L RDW 19.0 H Lymph % (Auto) 6.2 L Absolute Neuts (auto) 13.2 H Seg Neutrophils % 89.9 H APTT 39.4 H BUN 51 H Creatinine 10.43 H Est GFR ( Amer) 5 L Est GFR (MDRD) Non-Af 4 L Glucose 238 H - EKG Interpretation by Me Additional EKG results interpreted by me: 03/11/20 09:32 Twelve-lead EKG from 0756 hrs. reviewed contemporaneously by me normal sinus rhythm rate 94 with first-degree AV block and left atrial abnormality as well as prolonged QT interval. She is noted to have some shallow T wave inversion in aVL and this is unchanged from prior tracing of 03/04/2020. She has no acute ST changes. Discharge - Discharge Clinical Impression: Acute pulmonary edema, End stage renal disease Chest pain Qualifiers: Chest pain type: unspecified Qualified Code(s): R07.9 - Chest pain, unspecified Condition: Fair Disposition: ADMITTED INPATIENT Admitting Provider: Areli Unit Admitted: Medical Floor Referrals: HILARY HERNANDEZ MD [Primary Care Provider] - Follow up as needed
[2020-03-11] MEDS ORDERED: EPOETIN ALFA-EPBX 10,000 UNIT in SYRINGE, DISPOSABLE, 1 EACH IV PRN (11:36)
[2020-03-11] MEDS ORDERED: OXYCODONE HCL IR 5 MG TABLET PO PRN (11:37)
[2020-03-11] MEDS ORDERED: OXYCODONE-ACETAMINOPHEN 5-325 MG TABLET PO PRN (11:45)
[2020-03-11 12:32] VITALS: BP 167/95
[2020-03-11] MEDS ORDERED: ACETAMINOPHEN 325 MG TABLET PO ONE (16:30)
--- NOTE | 2020-03-11 19:23 | PDOC H&P ---
History of Present Illness Admission Date/PCP: 03/11/20 10:23 HILARY HERNANDEZ MD History of Present Illness: ERICH GOODMAN is a 34 year old female, She came to the emergency room this morning because of shortness of breath she needed immediate hemodialysis, she was dialyzed, patient said she needed to go home to take care of her son because there was no one at home to take care of him I did not see the patient before she left Past Medical History Cardiac Medical History: Reports: Congestive Heart Failure, Coronary Artery Disease, Myocardial Infarction, Hypertension, Heart Murmur Pulmonary Medical History: Reports: Asthma, Pneumonia Neurological Medical History: Reports: Migraine, Seizures - only r/t low calcium Endocrine Medical History: Reports: Diabetes Mellitus Type 1, Diabetes Mellitus Type 2 Renal/ Medical History: Reports: End Stage Renal Disease - On hemodialysis -W- Malignancy Medical History: GI Medical History: Musculoskeltal Medical History: Skin Medical History: Reports: Psoriasis Psychiatric Medical History: Reports: Depression Hematology: Reports: Anemia Infectious Medical History: Past Surgical History Past Surgical History: Reports: Appendectomy, Cholecystectomy, Vascular Surgery - Lt AV Fistula and graft; Rt AV fistula Social History Smoking Status: Never Smoker Electronic Cigarette use?: No Frequency of Alcohol Use: Occasional Hx Recreational Drug Use: No Drugs: None Hx Prescription Drug Abuse: No Family History Family History: Reviewed & Not Pertinent Parental Family History Reviewed: Yes Children Family History Reviewed: Yes Sibling(s) Family History Reviewed.: Yes Medication/Allergy Home Medications: Calcium Acetate [Phoslo 667 mg Capsule] 1,334 mg PO .BIDWITHSNACKS 09/25/19 Calcium Acetate [Phoslo 667 mg Capsule] 2,001 mg PO Q8 09/25/19 Furosemide [Lasix 80 mg Tablet] 80 mg PO Q8 09/25/19 Insulin Detemir [Levemir] 35 unit SQ BID 09/25/19 Insulin Lispro [Humalog Insulin (Lispro) 100 unit/mL] 0 unit SUBCUT .SLD SCALE 1 11/25/18 Nifedipine [Procardia XL 60 mg Tablet] 60 mg PO Q12 09/25/19 Oxcarbazepine [Trileptal] 300 mg PO Q12 09/25/19 Oxycodone HCl/Acetaminophen [Percocet 7.5-325 mg Tablet] 1 each PO QIDP PRN 03/10 Paroxetine HCl [Paxil] 80 mg PO QPM 09/25/19 Alprazolam 1 mg PO TID 10/25/19 Metolazone 10 mg PO DAILY 10/25/19 Promethazine HCl [Phenergan 25 mg Tablet] 12.5 mg PO Q6HP PRN 10/25/19 Atorvastatin Calcium [Lipitor 80 mg Tablet] 80 mg PO QHS 11/29/19 Carvedilol [Coreg 3.125 mg Tablet] 3.125 mg PO Q12 11/29/19 Clonidine HCl [Catapres 0.1 mg Tablet] 0.1 mg PO Q8 11/29/19 Clopidogrel Bisulfate [Plavix 75 mg Tablet] 75 mg PO DAILY 11/29/19 Apixaban [Eliquis 2.5 mg Tablet] 2.5 mg PO BID #60 tablet 12/28/19 Ondansetron [Zofran Odt 4 mg Tablet] 1 tab PO Q4H PRN #15 tab.rapdis 02/26/20 Prochlorperazine Maleate [Compazine 10 mg Tablet] 10 mg PO BID PRN #10 tablet 02/26/20 Albuterol Sulfate [Proair HFA Inhalation Aerosol 8.5 gm MDI] 2 puff IH Q4HP PRN 03/11/20 Gabapentin Enacarbil [Horizant] 300 mg PO QPM 03/11/20 Insulin Aspart [Novolog] 12 unit SQ TID 03/11/20 Tizanidine HCl [Zanaflex 4 Mg Tablet] 4 mg PO BIDP PRN 03/11/20 Zolpidem Tartrate [Ambien] 10 mg PO HSP PRN 03/11/20 Allergies/Adverse Reactions: aspirin [Aspirin] Allergy (Verified 03/11/20 08:31) Anaphylaxis ciprofloxacin [From Cipro] Allergy (Verified 03/11/20 08:31) Anaphylaxis clindamycin [Clindamycin] Allergy (Verified 03/11/20 08:31) hydrocodone [From Vicodin] Allergy (Verified 03/11/20 08:31) ibuprofen [From Motrin] Allergy (Verified 03/11/20 08:31) Anaphylaxis lidocaine [From Lidoderm] Allergy (Verified 03/11/20 08:31) Generalized rash tramadol HCl [From Ultram] Allergy (Verified 03/11/20 08:31) vancomycin [Vancomycin] Allergy (Verified 03/11/20 08:31) Shortness of Breath nitroglycerin [Nitroglycerin] Adverse Reaction (Intermediate, Verified 03/11/20 08:31) Joint pain Physical Exam Vital Signs: Temp Pulse Resp BP Pulse Ox 97.8 F 18 167/95 H 98 03/11/20 08:11 03/11/20 12:01 03/11/20 12:01 03/11/20 12:01 Intake & Output 03/10/20 03/11/20 03/12/20 06:59 06:59 06:59 Output Total 5900 Balance -5900 Weight 134.9 kg Results Laboratory Results: 03/11/20 08:07 03/11/20 08:07 03/11/20 03/11/20 08:07 08:07 WBC 14.6 H RBC 3.08 L Hgb 8.4 L Hct 26.4 L MCV 86 MCH 27.4 MCHC 32.0 RDW 19.0 H Plt Count 297 Seg Neutrophils % 89.9 H Sodium 137.2 Potassium 5.0 Chloride 99 Carbon Dioxide 24 Anion Gap 14 BUN 51 H Creatinine 10.43 H Est GFR ( Amer) 5 L Glucose 238 H Calcium 8.7 Total Bilirubin 0.7 AST 16 Alkaline Phosphatase 91 Total Protein 8.0 Albumin 4.4 03/11/20 08:07 Troponin I 0.013 Impressions: Chest X-Ray 03/11/20 07:55 IMPRESSION: Stable enlarged cardiac silhouette and diffuse bilateral interstitial and alveolar opacities, likely edema. Assessment & Plan - Diagnosis (1) Acute hypoxemic respiratory failure Is this a current diagnosis for this admission?: Yes (2) End-stage renal disease on hemodialysis Is this a current diagnosis for this admission?: Yes
--- NOTE | 2020-03-11 22:46 | EKG REPORT ---
SEVERITY:- ABNORMAL ECG - SINUS RHYTHM FIRST DEGREE AV BLOCK PROBABLE LEFT ATRIAL ABNORMALITY PROLONGED QT INTERVAL : Confirmed by: Daniela Lemons 11-Mar-2020 22:45:41
--- NOTE | 2020-03-11 22:46 | EKG REPORT ---
SEVERITY:- ABNORMAL ECG - SINUS RHYTHM PROBABLE LEFT ATRIAL ABNORMALITY BORDERLINE LEFT AXIS DEVIATION BORDERLINE T ABNORMALITIES, ANT-LAT LEADS PROLONGED QT INTERVAL : Confirmed by: Daniela Lemons 11-Mar-2020 22:45:31
--- NOTE | 2020-03-12 | PDOC CONSULTATION ---
Consultation Consult Date: 03/11/20 Provider Consulted: Lazarus OLIVARES Consult reason:: Emergent hemodialysis in the setting of acute congestive heart failure/ acute COPD History of Present Illness Admission Date/PCP: 03/11/20 10:23 HILARY HERNANDEZ MD History of Present Illness: ERICH GOODMAN is a 34 year old female admitted for emergent dialysis and is being seen while undergoing dialysis. She looks quite comfortable than when she came in. She feels a whole lot better after having removed approximately 2 L of fluid at the moment. Labs and medications were reviewed. She has a complicated past medical history that includes type 1 diabetes mellitus with multiple complications, hypertension, history of severe noncompliance was admitted with history of progressive shortness of breath associated with chest discomfort and wheezing. There was no complaints of any expectoration, fever or chills. She says her last dialysis was on Wednesday. She also has a bad noncompliant history of either missing dialysis according to chart and not sticking with proper dietary and fluid restrictions.Denies any history to indicate any GI bleeds. Evaluations revealed that she could be in early congestive heart failure/acute exacerbation of COPD. Past Medical History Cardiac Medical History: Reports: Coronary Artery Disease, Heart Murmur, Hypertension-primary, Myocardial Infarction Pulmonary Medical History: Reports: Asthma, Pneumonia Neurological Medical History: Reports: Migraine, Seizures - only r/t low calcium Endocrine Medical History: Reports: Diabetes Mellitus Type 1 Complications of Diabetes: Reports: Autonomic Neuropathy, Nephropathy, Re tinopathy Renal/ Medical History: Reports: End Stage Renal Disease - On hemodialysis M-W-F, Hypocalcemia, Hyperkalemia, Hyperphosphatemia, Secondary Hyperparathyroidism Malignancy Medical History: GI Medical History: Musculoskeltal Medical History: Skin Medical History: Reports: Psoriasis Psychiatric Medical History: Reports: Depression Infectious Medical History: Hematology Medical History: Reports Anemia of Chronic Kidney Disease Past Surgical History Past Surgical History: Reports: Appendectomy, Cholecystectomy, Dialysis Access Surgery AVF, Vascular Surgery - Lt AV Fistula and graft; Rt AV fistula Social History Smoking Status: Never Smoker Electronic Cigarette use?: No Frequency of Alcohol Use: Occasional Hx Recreational Drug Use: No Drugs: None Hx Prescription Drug Abuse: No Family History Parental Family History Reviewed: Yes - Negative for ESRD Children Family History Reviewed: No Sibling(s) Family History Reviewed.: No Medication/Allergy Home Medications: Calcium Acetate [Phoslo 667 mg Capsule] 1,334 mg PO .BIDWITHSNACKS 09/25/19 Calcium Acetate [Phoslo 667 mg Capsule] 2,001 mg PO Q8 09/25/19 Furosemide [Lasix 80 mg Tablet] 80 mg PO Q8 09/25/19 Insulin Detemir [Levemir] 35 unit SQ BID 09/25/19 Insulin Lispro [Humalog Insulin (Lispro) 100 unit/mL] 0 unit SUBCUT .SLD SCALE 09/25/19 Nifedipine [Procardia XL 60 mg Tablet] 60 mg PO Q12 09/25/19 Oxcarbazepine [Trileptal] 300 mg PO Q12 09/25/19 Oxycodone HCl/Acetaminophen [Percocet 7.5-325 mg Tablet] 1 each PO QIDP PRN 09/25/19 Paroxetine HCl [Paxil] 80 mg PO QPM 09/25/19 Alprazolam 1 mg PO TID 10/25/19 Metolazone 10 mg PO DAILY 10/25/19 Promethazine HCl [Phenergan 25 mg Tablet] 12.5 mg PO Q6HP PRN 10/25/19 Atorvastatin Calcium [Lipitor 80 mg Tablet] 80 mg PO QHS 11/29/19 Carvedilol [Coreg 3.125 mg Tablet] 3.125 mg PO Q12 11/29/19 Clonidine HCl [Catapres 0.1 mg Tablet] 0.1 mg PO Q8 11/29/19 Clopidogrel Bisulfate [Plavix 75 mg Tablet] 75 mg PO DAILY 11/29/19 Apixaban [Eliquis 2.5 mg Tablet] 2.5 mg PO BID #60 tablet 12/28/19 Ondansetron [Zofran Odt 4 mg Tablet] 1 tab PO Q4H PRN #15 tab.rapdis 02/26/20 Prochlorperazine Maleate [Compazine 10 mg Tablet] 10 mg PO BID PRN #10 tablet 02/26/20 Albuterol Sulfate [Proair HFA Inhalation Aerosol 8.5 gm MDI] 2 puff IH Q4HP PRN 03/11/20 Gabapentin Enacarbil [Horizant] 300 mg PO QPM 03/11/20 Insulin Aspart [Novolog] 12 unit SQ TID 03/11/20 Tizanidine HCl [Zanaflex 4 Mg Tablet] 4 mg PO BIDP PRN 03/11/20 Zolpidem Tartrate [Ambien] 10 mg PO HSP PRN 03/11/20 Allergies/Adverse Reactions: aspirin [Aspirin] Allergy (Verified 03/11/20 08:31) Anaphylaxis ciprofloxacin [From Cipro] Allergy (Verified 03/11/20 08:31) Anaphylaxis clindamycin [Clindamycin] Allergy (Verified 03/11/20 08:31) hydrocodone [From Vicodin] Allergy (Verified 03/11/20 08:31) ibuprofen [From Motrin] Allergy (Verified 03/11/20 08:31) Anaphylaxis lidocaine [From Lidoderm] Allergy (Verified 03/11/20 08:31) Generalized rash tramadol HCl [From Ultram] Allergy (Verified 03/11/20 08:31) vancomycin [Vancomycin] Allergy (Verified 03/11/20 08:31) Shortness of Breath nitroglycerin [Nitroglycerin] Adverse Reaction (Intermediate, Verified 03/11/20 08:31) Joint pain Review of Systems Constitutional: PRESENT: fatigue, weakness. ABSENT: chills, fever(s), hea dache(s), night sweats Cardiovascular: PRESENT: dyspnea on exertion, edema, orthropnea. ABSENT: chest pain, palpitations Respiratory: PRESENT: dyspnea. ABSENT: cough, hemoptysis Gastrointestinal: ABSENT: diarrhea, dysphagia, hematochezia, nausea, vomiting Genitourinary: ABSENT: hematuria Musculoskeletal: ABSENT: deformity, joint swelling Integumentary: ABSENT: lesions, pruritus Neurological: ABSENT: abnormal gait, abnormal movements, abnormal speech, focal weakness, frequent falls Hematologic/Lymphatic: ABSENT: easy bruising Physical Exam Vital Signs: Temp Pulse Resp BP Pulse Ox 97.8 F 18 167/95 H 98 03/11/20 08:11 03/11/20 12:01 03/11/20 12:01 03/11/20 12:01 Intake & Output 03/10/20 03/11/20 03/12/20 06:59 06:59 06:59 Weight 134.9 kg General appearance: PRESENT: no acute distress Eye exam: PRESENT: EOMI, PERRLA. ABSENT: scleral icterus Ear exam: PRESENT: normal external ear exam Mouth exam: PRESENT: moist, neck supple Neck exam: ABSENT: meningismus, tenderness, thyromegaly, tracheal deviation Respiratory exam: PRESENT: clear to auscultation freddy, decreased breath sounds. ABSENT: crackles Cardiovascular exam: PRESENT: +S1, +S2 GI/Abdominal exam: PRESENT: normal bowel sounds, soft. ABSENT: distended, firm, organomegaly, tenderness Extremities exam: PRESENT: +1 edema Neurological exam: PRESENT: alert, awake, oriented to person, oriented to place Psychiatric exam: PRESENT: appropriate affect Results Laboratory Results: 03/11/20 08:07 03/11/20 08:07 03/11/20 03/11/20 08:07 08:07 WBC 14.6 H RBC 3.08 L Hgb 8.4 L Hct 26.4 L MCV 86 MCH 27.4 MCHC 32.0 RDW 19.0 H Plt Count 297 Seg Neutrophils % 89.9 H Sodium 137.2 Potassium 5.0 Chloride 99 Carbon Dioxide 24 Anion Gap 14 BUN 51 H Creatinine 10.43 H Est GFR ( Amer) 5 L Glucose 238 H Calcium 8.7 Total Bilirubin 0.7 AST 16 Alkaline Phosphatase 91 Total Protein 8.0 Albumin 4.4 03/11/20 08:07 Troponin I 0.013 Impressions: Chest X-Ray 03/11/20 07:55 IMPRESSION: Stable enlarged cardiac silhouette and diffuse bilateral inters titial and alveolar opacities, likely edema. Assessment & Plan - Diagnosis (1) Acute diastolic (congestive) heart failure Plan: Patient looks like she is in a combination of heart failure and acute COPD. See how she responds to dialysis. Presently she is already feeling better after removal of approximately less than 2 L of fluid on ultrafiltration on dialysis. Monitor. Advised dietary and fluid compliance. (2) Acute bronchitis with COPD Plan: Management as per ER physician/Dr. Hernandez. (3) Acute hypoxemic respiratory failure Plan: Secondary to combination of the 2 above-mentioned diagnosis. Monitor. (4) ESRD on dialysis Plan: Patient currently undergoing dialysis. Vital signs shows that her blood pressure was quite high. Otherwise she is undergoing dialysis without any pr oblems. Dialysis is being supervised to ensure safe and smooth procedure. Plan to remove approximately 4-5 L of fluid as tolerated. Dialysis orders were reviewed with the treating dialysis nurse. Discussed dietary and fluid compliance with the patient. (5) Hypertension Qualifiers: Hypertension type: unspecified Qualified Code(s): I10 - Essential (primary) hypertension Plan: She responds after removal of 4-5 L of fluid on dialysis. Monitor closely. Advised compliance with diet, fluids and medications. (6) Diabetes mellitus type 1 Qualifiers: Diabetes mellitus complication status: with neurologic complications Diabetes mellitus complication detail: with polyneuropathy Qualified Code(s): E10.42 - Type 1 diabetes mellitus with diabetic polyneuropathy Plan: As per Dr. Hernandez. (7) Anemia in chronic kidney disease (CKD) Qualifiers: Chronic kidney disease stage: on chronic dialysis Qualified Code(s): N18.6 - End stage renal disease; D63.1 - Anemia in chronic kidney disease; Z99.2 - Dependence on renal dialysis Plan: Adjust erythropoietin. However will have to withhold it if her blood pressure remains very high. Monitor closely.
--- NOTE | 2020-03-13 11:09 | CDI QUERY ---
CDI Query CDI Review: Dear Provider: To better reflect your patients severity of illness, morbidity, and resource utilization Please specify and document in the Progress Notes and Discharge Summary if you are monitoring / treating / evaluating any of the following conditions: Query Clinical indicators If you concur with these diagnoses, please include them in your Progress Notes and the Discharge Summary. Per Nephrology Consult Notes: Acute diastolic heart failure Acute bronchitis with COPD The terms probable, suspected, likely, possible or still to be ruled out may be used if you are unable to determine the exact nature of a condition. Thank you for your consideration, Clinical Documentation Physician Advisors BALWINDER Goodwin RN BALWINDER [place] Office [phone] Office [phone]
== END 2020-03-11 17:43 | disposition other institution (70) ==
LOC: ER 07:40 → UNDOADMIN 10:23 → EH 10:23 → UNDODISIN 17:53
DX: I12.0 Hypertensive chronic kidney disease with stage 5 chronic kidney disease or end stage renal disease (principal); E11.22 Type 2 diabetes mellitus with diabetic chronic kidney disease; N18.6 End stage renal disease; Z99.2 Dependence on renal dialysis; R07.89 Other chest pain; J81.0 Acute pulmonary edema; I25.10 Atherosclerotic heart disease of native coronary artery without angina pectoris; J45.909 Unspecified asthma, uncomplicated; R06.02 Shortness of breath; E66.9 Obesity, unspecified; Z79.899 Other long term (current) drug therapy; Z87.892 Personal history of anaphylaxis; Z88.8 Allergy status to other drugs, medicaments and biological substances; Z88.1 Allergy status to other antibiotic agents; Z88.6 Allergy status to analgesic agent; Z88.5 Allergy status to narcotic agent; I44.0 Atrioventricular block, first degree
CPT/HCPCS: 93005; 99285; 96374; 96375; 36415; 85025; 85610; 85730; 80053; 84484; 71045; 93010; A9270 ×3; J3010; J1940; J2405; J3490; Q5105

== ENCOUNTER 2020-03-25 13:35 | Emergency (ER) | payer MEDICARE, MEDICAID ==
[2020-03-25] MEDS ORDERED: MORPHINE SULFATE 10 MG/ML INJ IV ONE (13:53)
[2020-03-25] MEDS ORDERED: METOCLOPRAMIDE HCL INJ/PF 10 MG/2 ML SDV IV ONE (13:53)
--- NOTE | 2020-03-25 13:55 | ER Document Report ---
ED GI/ - General Chief Complaint: Abdominal Pain Stated Complaint: ABDOMINAL PAIN Time Seen by Provider: 03/25/20 13:36 Primary Care Provider: HILARY HERNANDEZ MD [Primary Care Provider] - Follow up as needed Notes: CHIEF COMPLAINT: Abdominal pain today HPI: 34-year-old female who is a dialysis patient of Dr. Kwon presenting to the emergency department complaining of mid abdominal pain states it feels like her gastroparesis. No chest pain or shortness of breath. Patient states pain started this morning. She states she has never been admitted for this pain before. Patient has had some intermittent diarrhea today with this. She reports a history of some constipation issues. No fever. No vomiting. She is an uric. Patient states that she normally has her dialysis Wednesday and was able to finish the majority of her dialysis except for 1 hour today. ROS: See HPI - all other systems were reviewed and are otherwise negative Constitutional: no fever Eyes: no drainage, no blurred vision ENT: no runny nose, no sore throat Cardiovascular: no chest pain Resp: no SOB, no cough GI: no vomiting, no diarrhea, + abdominal pain : no dysuria Integumentary: no rash Allergy: no hives Musculoskeletal: no extremity pain or swelling Neurological: no numbness/tingling, no weakness MEDICATIONS: I agree with the patient medications as charted by the RN. ALLERGIES: I agree with the allergies as charted by the RN. PAST MEDICAL HISTORY/PAST SURGICAL HISTORY: Reviewed and agree as charted by RN. SOCIAL HISTORY: Reviewed and agree as charted by RN. FAMILY HISTORY: No significant familial comorbid conditions directly related to patient complaint EXAM: Reviewed vital signs as charted by RN. CONSTITUTIONAL: Alert and oriented and responds appropriately to questions. Well-appearing; well-nourished, mild distress secondary to discomfort HEAD: Normocephalic; atraumatic EYES: PERRL; Conjunctivae clear, sclerae non-icteric ENT: normal nose; no rhinorrhea; moist mucous membranes; pharynx without lesions noted, no uvula edema or deviation, no tonsillar hypertrophy, phonation normal NECK: Supple without meningismus; non-tender; no cervical lymphadenopathy, no masses CARD: RRR; no murmurs, no clicks, no rubs, no gallops; symmetric distal pulses RESP: Normal chest excursion without splinting or tachypnea; breath sounds clear and equal bilaterally; no wheezes, no rhonchi, no rales, pulse oximetry ABD/GI: Morbidly obese normal bowel sounds; non-distended; soft, mild general ized mid abdominal tenderness on palpation, no rebound, no guarding; no palpable organomegaly or masses. BACK: The back appears normal and is non-tender to palpation, there is no CVA tenderness EXT: Normal ROM in all joints; non-tender to palpation; no cyanosis, no effusions, no edema. Shunt in the right upper arm with positive thrill and bruit SKIN: Normal color for age and race; warm; dry; good turgor; no acute lesions noted NEURO: Moves all extremities equally; Motor and sensory function intact PSYCH: The patient's mood and manner are appropriate. Grooming and personal hygiene are appropriate. MDM: 34-year-old anuretic female who is on dialysis for the last 9 years presenting again with abdominal pain. She has multiple visits to the emergency department with similar complaints over the last year. Most recent abdominal pain presentation was approximately 6 weeks ago. Patient does not have any chest pain or shortness of breath. Will obtain basic screening labs, plan for CT as patient is on dialysis and is otherwise an positive for take his liftoff uric to ensure there is no obstructive issue, she has prior history of appendectomy and cholecystectomy TRAVEL OUTSIDE OF THE [place] IN LAST 30 DAYS: No - Related Data Allergies/Adverse Reactions: aspirin [Aspirin] Allergy (Verified 03/11/20 08:31) Anaphylaxis ciprofloxacin [From Cipro] Allergy (Verified 03/11/20 08:31) Anaphylaxis clindamycin [Clindamycin] Allergy (Verified 03/11/20 08:31) hydrocodone [From Vicodin] Allergy (Verified 03/11/20 08:31) ibuprofen [From Motrin] Allergy (Verified 03/11/20 08:31) Anaphylaxis lidocaine [From Lidoderm] Allergy (Verified 03/11/20 08:31) Generalized rash tramadol HCl [From Ultram] Allergy (Verified 03/11/20 08:31) vancomycin [Vancomycin] Allergy (Verified 03/11/20 08:31) Shortness of Breath nitroglycerin [Nitroglycerin] Adverse Reaction (Intermediate, Verified 03/11/20 08:31) Joint pain Past Medical History - Social History Smoking Status: Unknown if Ever Smoked Family History: Reviewed & Not Pertinent - Past Medical History Cardiac Medical History: Reports: Hx Congestive Heart Failure, Hx Coronary Artery Disease, Hx Heart Attack, Hx Hypertension, Hx Heart Murmur Pulmonary Medical History: Reports: Hx Asthma, Hx Pneumonia Neurological Medical History: Reports: Hx Migraine, Hx Seizures - only r/t low calcium. Denies: Hx Parkinson's Disease Endocrine Medical History: Reports: Hx Diabetes Mellitus Type 1, Hx Diabetes Mellitus Type 2 Renal/ Medical History: Reports: Hx End Stage Renal Disease - On hemodialysis -W-, Hx Hemodialysis, Hx Ovarian Cysts. Denies: Hx Peritoneal Dialysis Malignancy Medical History: GI Medical History: Reports: Hx Gastritis Musculoskeletal Medical History: Skin Medical History: Reports Hx Psoriasis Psychiatric Medical History: Reports: Hx Depression Traumatic Medical History: Infectious Medical History: Past Surgical History: Reports: Hx Appendectomy, Hx Cholecystectomy, Hx Vascular Surgery - Lt AV Fistula and graft; Rt AV fistula - Immunizations Immunizations up to date: Yes Hx Diphtheria, Pertussis, Tetanus Vaccination: Yes Hx Pneumococcal Vaccination: 08/22/11 Physical Exam - Vital signs Vitals: Temp 97.8 F 03/25/20 13:35 Course - Re-evaluation Re-evalutation: 03/25/20 16:00 I received a call from the photonic laboratory technician in CT scan. They do not want to perform the CT scan if the patient cannot have dialysis within 24 hours they state that is the radiologist's policy. Patient is anuric and came to the ER for her abdominal pain from dialysis today where she completed most of her dialysis except for 1 hour[address] I spoke with Dr. Kwon the patient's recreation clerk who states that given these facts he is completely fine with the patient having CT imaging with contrast today. I called back and spoke with the photonic laboratory technician in CT scan again and informed them that the patient's recreation clerk who manages the patient's dialysis schedule is aware of the patient getting CT scan today and will be able to manage her outpatient 03/25/20 17:02 Patient's lab work and imaging studies do not show acute emergent abnormalities. Creatinine is at her baseline. She states that she has seen gastroenterology Dr. Caldera. She will call them tomorrow to schedule close follow-up in the office. She states she is currently being scheduled for endoscopy. We will give her a short course of Bentyl for abdominal spasm - Vital Signs Vital signs: Temp Pulse Resp BP Pulse Ox 97.8 F 16 176/80 H 100 03/25/20 13:35 03/25/20 16:03 03/25/20 16:03 03/25/20 16:02 - Laboratory Result Diagrams: 03/25/20 13:53 03/25/20 13:53 Laboratory results interpreted by me: 03/25/20 03/25/20 13:53 13:53 RBC 3.56 L Hgb 10.0 L Hct 30.0 L RDW 18.5 H Sodium 136.1 L Chloride 95 L BUN 22 H Creatinine 5.84 H Est GFR ( Amer) 10 L Est GFR (MDRD) Non-Af 8 L Glucose 255 H Total Protein 8.7 H Lipase 316.5 H Discharge - Discharge Clinical Impression: Abdominal pain, acute, periumbilical Condition: Stable Disposition: HOME, SELF-CARE Additional Instructions: Call your seafood technology specialist for further evaluation and management options for your abdominal pain. Your imaging study today did not show obstruction or other alarming abnormalities. Take the Bentyl for abdominal pain as prescribed Prescriptions: Dicyclomine HCl [Bentyl 10 mg Capsule] 1 cap PO TID #30 cap Referrals: HILARY HERNANDEZ MD [Primary Care Provider] - Follow up as needed
[2020-03-25 14:15] LABS: ABSOLUTE BASOPHILS # (AUTO) 0.1 10^3/uL (0.0-0.2); ABSOLUTE EOSINOPHILS # (AUTO) 0.3 10^3/uL (0.0-0.6); ABSOLUTE LYMPHOCYTES (AUTO) 1.5 10^3/uL (0.5-4.7); ABSOLUTE MONOCYTES (AUTO) 0.5 10^3/uL (0.1-1.4); ABSOLUTE NEUT (AUTO) 5.5 10^3/uL (1.7-8.2); EOSINOPHILS % (AUTO) 3.6 % (0-6); MEAN CORPUSCULAR HGB CONC 33.2 g/dL (32.0-36.0); MEAN CORPUSCULAR VOLUME 84 fl (80-97); MONOCYTES % (AUTO) 6.8 % (3-13); PLATELET COUNT 346 10^3/uL (150-450); RED BLOOD COUNT 3.56 10^6/uL (3.72-5.28); RED CELL DISTRIBUTION WIDTH 18.5 % (11.5-14.0); SEGMENTED NEUTROPHILS % (AUTO) 69.6 % (42-78); TOTAL CELLS COUNTED % (AUTO) 100 %; WHITE BLOOD COUNT 7.9 10^3/uL (4.0-10.5)
[2020-03-25 14:25] LABS: ALBUMIN 4.6 g/dL (3.5-5.0); ALKALINE PHOSPHATASE 101 U/L (38-126); ANION GAP 13 (5-19); ASPARTATE AMINO TRANSFERASE 22 U/L (14-36); BILIRUBIN,DIRECT 0.2 mg/dL (0.0-0.4); BILIRUBIN,TOTAL 0.6 mg/dL (0.2-1.3); BLOOD UREA NITROGEN 22 mg/dL (7-20); CALCIUM 9.1 mg/dL (8.4-10.2); CARBON DIOXIDE 28 mmol/L (22-30); CHLORIDE 95 mmol/L (98-107); GLUCOSE 255 mg/dL (75-110); POTASSIUM 4.4 mmol/L (3.6-5.0); TOTAL PROTEIN 8.7 g/dL (6.3-8.2)
--- NOTE | 2020-03-25 16:42 | RADIOLOGY REPORT (SQ) ---
EXAM DESCRIPTION: CT ABD/PELVIS WITH IV ONLY IMAGES COMPLETED DATE/TIME: 03/25/2020 4:20 pm REASON FOR STUDY: mid abd pain/dialysis patient COMPARISON: CT of the abdomen pelvis with contrast from 02/07/2020. TECHNIQUE: CT scan of the abdomen and pelvis performed using helical scanning technique with dynamic intravenous contrast injection. No oral contrast. Images reviewed with lung, soft tissue, and bone windows. Reconstructed coronal and sagittal MPR images reviewed. Delayed images for evaluation of the urinary system also acquired. All images stored on PACS. All CT scanners at this facility use dose modulation, iterative reconstruction, and/or weight based d osing when appropriate to reduce radiation dose to as low as reasonably achievable (ALARA). [facility]: Dose Right [facility]: CareDose [facility]: Dose Right [facility]: Teradose 4D [facility]: [employer] CONTRAST TYPE AND DOSE: Contrast/concentration: Isovue 300.00 mg/ml; Total Contrast Delivered: 98.0 ml; Total Saline Delivered: 72.0 ml RENAL FUNCTION: Creatinine 5.84 milligrams/deciliter. RADIATION DOSE: CT Rad equipment meets quality standard of care and radiation dose reduction techniq ues were employed. CTDIvol: 19.0 - 21.1 mGy. DLP: 2212 mGy-cm. LIMITATIONS: None. FINDINGS: LOWER CHEST: Cardiomegaly and atherosclerotic calcification of the coronary arteries. The re is no pericardial effusion. LIVER: The morphology of the liver is noncirrhotic. There is no hepatic mass. SPLEEN: The spleen is borderline enlarged and it measures 13 cm in AP diameter. PANCREAS: No acute gross abnormality of the pancreas. GALLBLADDER: The gallbladder is surgically absent. ADRENAL GLANDS: No mass or asymmetry. RIGHT KIDNEY AND URETER: The subcentimeter hypodensities in the superior cortex of the kidney are too small to characterize. There is no solid mass, hydronephrosis, nephrolithiasis, hydroureter or uret erolithiasis. LEFT KIDNEY AND URETER: The subcentimeter hypodensities in the inferior pole of the kidney are too sm all to characterize. There is no solid mass, hydronephrosis, nephrolithiasis, hydroureter or uretero lithiasis. AORTA AND VESSELS: No aneurysm or dissection of the abdominal aorta. RETROPERITONEUM: No retroperitoneal adenopathy, hemorrhage or mass. BOWEL AND PERITONEAL CAVITY: No bowel obstruction, bowel wall thickening or pericolonic/ perienteric inflammation. No mesenteric adenopathy, free intraperitoneal fluid or mesenteric/ omental inflammati on. APPENDIX: Unable to identify the appendix. There is no periappendiceal inflammation. PELVIS: Probable corpus luteum cyst in the right adnexum. There is no abnormality of the uterus or l eft adnexum that is apparent on CT. The urinary bladder is nondistended. ABDOMINAL WALL: Fat containing umbilical hernia. BONES: Schmorl's node along the inferior endplate of the L4 vertebral body. The appearance of the SI joints is unchanged. There is no fracture. OTHER: No other finding. IMPRESSION: No acute intra-abdominal abnormality. TECHNICAL DOCUMENTATION: JOB ID: [id number] Quality ID # [id number]: Final reports with documentation of one or more dose reduction techniques (e.g., Au tomated exposure control, adjustment of the mA and/or kV according to patient size, use of iterative reconstruction technique) 2010 [employer]- All Rights Reserved Reading location - IP/workstation name: [email or web address]
[2020-03-25] MEDS ORDERED: DICYCLOMINE HCL INJ 20 MG/2 ML AMPULE IM ONE (17:02)
[2020-03-25 18:29] VITALS: BP 178/89
--- NOTE | 2020-03-25 19:12 | EKG REPORT ---
SEVERITY:- ABNORMAL ECG - SINUS RHYTHM FIRST DEGREE AV BLOCK PROBABLE LEFT ATRIAL ABNORMALITY BORDERLINE LEFT AXIS DEVIATION PROLONGED QT INTERVAL : Confirmed by: Ciro Beckford MD 25-Mar-2020 19:10:10
== END 2020-03-25 18:28 | disposition home or self-care (01) ==
LOC: ER 13:35
DX: R10.33 Periumbilical pain (principal); E11.22 Type 2 diabetes mellitus with diabetic chronic kidney disease; I13.2 Hypertensive heart and chronic kidney disease with heart failure and with stage 5 chronic kidney disease, or end stage renal disease; I50.9 Heart failure, unspecified; N18.6 End stage renal disease; Z99.2 Dependence on renal dialysis; Z90.49 Acquired absence of other specified parts of digestive tract; Z88.6 Allergy status to analgesic agent
CPT/HCPCS: 93005; 99284; 96372; 96374; 96375; 36415; 83690; 85025; 80053; 74177; 93010; J0500; J2765; J2270

== ENCOUNTER → 2020-04-18 | Outpatient (CLI) | payer MEDICARE, MEDICAID ==
--- NOTE | 2020-04-18 09:25 | RADIOLOGY REPORT (SQ) ---
EXAM DESCRIPTION: BARIUM SWALLOW ESOPHAGUS IMAGES COMPLETED DATE/TIME: 04/18/2020 9:07 am REASON FOR STUDY: R11.2 NAUSEA WITH VOMITING, UNSPECIFIED R11.2 NAUSEA WITH VOMITING, UNSPECIFIED COMPARISON: None. TECHNIQUE: Under fluoroscopic guidance, patient ingested effervescent granules followed by thick and thin barium. Fluoroscopic spot images and routine radiographic images acquired and stored on PACS. 12 MM BARIUM TABLET GIVEN: Yes. No significant delay in passage. LIMITATIONS: None. FLUOROSCOPY TIME: FLUORO TIME: 1.9 minutes of fluoroscopy was used. 8 images saved to PACS. FINDINGS: NEUROMUSCULAR COORDINATION OF SWALLOW: Normal. No aspiration. ESOPHAGEAL MOTILITY: Mild esophageal dysmotility. No esophageal spasm. ESOPHAGEAL MUCOSA: Normal mucosa without masses or ulceration. GASTRO-ESOPHAGEAL JUNCTION: Small sliding hiatal hernia with mild gastroesophageal reflux. 12 mm bar ium tablet passed through the GE junction without delay. NON-GI TRACT STRUCTURES: No significant finding. OTHER: Moderate retained food material within the stomach which may be related to patient stated elton roparesis. IMPRESSION: MILD ESOPHAGEAL DYSMOTILITY WITH SMALL HIATAL HERNIA AND MILD REFLUX. COMMENT: Quality ID 145: Final reports for procedures using fluoroscopy that document radiation exp osure indices, or exposure time and number of fluorographic images (if radiation exposure indices are not available) TECHNICAL DOCUMENTATION: JOB ID: [id number] 2010 [employer]- All Rights Reserved Reading location - IP/workstation name: [email or web address] [id number]
== END ==
LOC: RAD 08:33
PROVIDERS: ATTEND Internal Medicine Gastroenterology
DX: R11.2 Nausea with vomiting, unspecified (principal); K21.9 Gastro-esophageal reflux disease without esophagitis; K44.9 Diaphragmatic hernia without obstruction or gangrene
CPT/HCPCS: 74220

== ENCOUNTER 2020-04-26 06:24 | Inpatient (IN) | payer MEDICARE, MEDICAID ==
[2020-04-26 07:00] LABS: ABSOLUTE BASOPHILS # (AUTO) 0.1 10^3/uL (0.0-0.2); ABSOLUTE EOSINOPHILS # (AUTO) 0.5 10^3/uL (0.0-0.6); ABSOLUTE LYMPHOCYTES (AUTO) 1.9 10^3/uL (0.5-4.7); ABSOLUTE MONOCYTES (AUTO) 0.7 10^3/uL (0.1-1.4); ABSOLUTE NEUT (AUTO) 3.9 10^3/uL (1.7-8.2); BASOPHILS % (AUTO) 1.2 % (0-2); EOSINOPHILS % (AUTO) 7.4 % (0-6); HEMATOCRIT 34.6 % (36.0-47.0); HEMOGLOBIN 11.3 g/dL (12.0-15.5); LYMPHOCYTES % (AUTO) 26.7 % (13-45); MEAN CORPUSCULAR HEMOGLOBIN 28.1 pg (27.0-33.4); MEAN CORPUSCULAR HGB CONC 32.7 g/dL (32.0-36.0); MEAN CORPUSCULAR VOLUME 86 fl (80-97); MONOCYTES % (AUTO) 9.3 % (3-13); PLATELET COUNT 253 10^3/uL (150-450); RED BLOOD COUNT 4.03 10^6/uL (3.72-5.28); SEGMENTED NEUTROPHILS % (AUTO) 55.4 % (42-78); TOTAL CELLS COUNTED % (AUTO) 100 %; WHITE BLOOD COUNT 7.1 10^3/uL (4.0-10.5)
[2020-04-26 07:30] LABS: ALBUMIN 4.2 g/dL (3.5-5.0); ALKALINE PHOSPHATASE 103 U/L (38-126); ANION GAP 15 (5-19); ASPARTATE AMINO TRANSFERASE 24 U/L (14-36); BILIRUBIN,DIRECT 0.3 mg/dL (0.0-0.4); BILIRUBIN,TOTAL 0.4 mg/dL (0.2-1.3); BLOOD UREA NITROGEN 68 mg/dL (7-20); CALCIUM 8.9 mg/dL (8.4-10.2); CARBON DIOXIDE 24 mmol/L (22-30); CHLORIDE 94 mmol/L (98-107); CREATINE KINASE 67 U/L (30-135); GLUCOSE 312 mg/dL (75-110); POTASSIUM 5.4 mmol/L (3.6-5.0); TOTAL PROTEIN 8.2 g/dL (6.3-8.2)
[2020-04-26] MEDS ORDERED: MORPHINE SULFATE 10 MG/ML INJ IV ONE ×2 (07:37→10:15)
[2020-04-26] MEDS ORDERED: ONDANSETRON HCL INJ/PF 4 MG/2 ML SDV IV ONE (07:38)
[2020-04-26] MEDS ORDERED: ACETAMINOPHEN 325 MG TABLET PO ONE (07:39)
[2020-04-26 07:59] LABS: CREATINE KINASE MB 1.04 ng/mL (<4.55)
[2020-04-26 08:05] LABS: TROPONIN I 0.649 ng/mL
--- NOTE | 2020-04-26 08:29 | RADIOLOGY REPORT (SQ) ---
EXAM DESCRIPTION: CHEST SINGLE VIEW IMAGES COMPLETED DATE/TIME: 04/26/2020 8:13 am REASON FOR STUDY: chest pain COMPARISON: AP view of the chest from 03/11/2020. EXAM PARAMETERS: NUMBER OF VIEWS: One view. TECHNIQUE: An AP view of the chest was obtained. RADIATION DOSE: NA LIMITATIONS: None. FINDINGS: LUNGS AND PLEURA: Bilateral asymmetric interstitial and alveolar opacities in the perihila r aspect of the left hemithorax and in the mid to inferior aspect of the right hemithorax. There is no sizable pleural effusion or pneumothorax. MEDIASTINUM AND HILAR STRUCTURES: The clyde are indistinct. HEART AND VASCULAR STRUCTURES: The cardiac silhouette is enlarged. BONES: No acute findings. HARDWARE: Endovascular stents within the venous outflow of upper extremity dialysis accesses. OTHER: No other finding. IMPRESSION: Cardiomegaly and bilateral asymmetric interstitial alveolar opacities. Clinical correla tion for signs and symptoms of CHF/pulmonary edema is recommended. TECHNICAL DOCUMENTATION: JOB ID: [id number] 2010 [employer]- All Rights Reserved Reading location - IP/workstation name: [email or web address]
[2020-04-26] MEDS ORDERED: NITROGLYCERIN 0.4 MG/TAB 25 TAB/BOTTLE SL PRN (10:14)
--- NOTE | 2020-04-26 10:54 | RADIOLOGY REPORT (SQ) ---
EXAM DESCRIPTION: CT HEAD WITHOUT IMAGES COMPLETED DATE/TIME: 04/26/2020 10:42 am REASON FOR STUDY: headache/right sided COMPARISON: MRI of the brain without contrast from 11/30/[address] of the head without contrast from 10/24/2019. TECHNIQUE: Axial images acquired through the brain without intravenous contrast. Images reviewed wi th bone, brain and subdural windows. Additional sagittal and coronal reconstructions were generated. Images stored on PACS. All CT scanners at this facility use dose modulation, iterative reconstruction, and/or weight based d osing when appropriate to reduce radiation dose to as low as reasonably achievable (ALARA). [facility]: Dose Right [facility]: CareDose [facility]: Dose Right [facility]: Teradose 4D [facility]: [employer] RADIATION DOSE: CT Rad equipment meets quality standard of care and radiation dose reduction techniq ues were employed. CTDIvol: 53.2 mGy. DLP: 1044 mGy-cm. LIMITATIONS: None. FINDINGS: There is no acute intracranial hemorrhage, vascular territorial infarct, extra-axial fluid collection, mass effect or midline shift. The calvillo-white matter differentiation is preserved. Ther e is no effacement of cerebral sulci or basal subarachnoid cisterns. The caliber of the ventricles i s concordant with the degree of sulcation. The orbits and globes are intact. The diffuse atherosclerotic calcification of the extracranial vasc ulature is indicative of underlying diabetes mellitus. The paranasal sinuses are clear. There is no fracture of the calvarium. IMPRESSION: No acute intracranial abnormality. EVIDENCE OF ACUTE STROKE: NO. COMMENT: Quality ID # 436: Final reports with documentation of one or more dose reduction techniques (e.g., Automated exposure control, adjustment of the mA and/or kV according to patient size, use of iterative reconstruction technique) TECHNICAL DOCUMENTATION: JOB ID: [id number] 2010 [employer]- All Rights Reserved Reading location - IP/workstation name: [email or web address]
[2020-04-26] MEDS ORDERED: NORMAL SALINE 1000 ML 1,000 ML IV PRN (11:17)
--- NOTE | 2020-04-26 12:28 | PDOC CONSULTATION ---
Consultation Consult Date: 04/26/20 Attending physician:: ELOISA SALINAS Provider Consulted: EBONI DIAMOND Consult reason:: Chest pain History of Present Illness Admission Date/PCP: HILARY HERNANDEZ MD History of Present Illness: ERICH GOODMAN is a 34 year old female with history of ESRD on dialysis Mondays, Wednesdays and Fridays, hypertension, type 1 diabetes and prior episodes of heart failure secondary to fluid overload, lifelong non-smoker and unknown family history for premature coronary artery disease who is consulted to our service for evaluation of chest pain. The patient states that she began with chest pain approximately 3 days ago, she describes it as an ache, stabbing/very sharp in nature, localized to the right upper chest, sometimes feels like a pressure, with radiation to the right jaw, constantly present for 3 days and just getting worse, and not associated with diaphoresis, palpitations, syncope or presyncope. She also complains of a headache and neck pain that radiates down to her chest. She denies pleuritic component to her chest pain, it is not exertional and it does not appear to be positional either. She is due for dialysis today. Her director card is Dr. Kwon. Physical exam on 04/26/2020: GENERAL: Pleasant and conversational. Emotionally upset, crying and concerned about who is going to take care of her autistic son, still with chest pain, oriented x3, obese. HEENT: Normocephalic, atraumatic. Pupils equal. Sclerae anicteric. Oropharynx moist. NECK: No JVD. No carotid bruits. LUNGS: Clear to auscultation bilaterally. Normal respiratory effort without the use of accessory muscles or intercostal retractions. CARDIOVASCULAR: Regular rate and rhythm, normal S1 and S2 without murmurs, rubs, or gallops. PMI not displaced. ABDOMEN: No masses or tenderness to palpation. No bruit. No splenomegaly or hepatomegaly. No abdominal aorta bruit noted. EXTREMITIES: Trace pitting edema bilaterally, no cyanosis, no clubbing. +2 pulses femoral and pedal pulses bilaterally. SKIN: No lesions or rashes. MUSCULOSKELETAL: No chest tenderness to palpation. NEUROLOGIC: Nonfocal. No gross sensory or motor deficits bilateral upper or lower extremities. Past Medical History Cardiac Medical History: Reports: Congestive Heart Failure, Coronary Artery Disease, Myocardial Infarction, Hypertension, Heart Murmur Pulmonary Medical History: Reports: Asthma, Pneumonia Neurological Medical History: Reports: Migraine, Seizures - only r/t low calcium Endocrine Medical History: Reports: Diabetes Mellitus Type 1, Diabetes Mellitus Type 2 Renal/ Medical History: Reports: End Stage Renal Disease - On hemodialysis M-W-F Malignancy Medical History: GI Medical History: Musculoskeltal Medical History: Skin Medical History: Reports: Psoriasis Psychiatric Medical History: Reports: Depression Hematology: Reports: Anemia Infectious Medical History: Past Surgical History Past Surgical History: Reports: Appendectomy, Cholecystectomy, Vascular Surgery - Lt AV Fistula and graft; Rt AV fistula Social History Smoking Status: Never Smoker Frequency of Alcohol Use: Occasional Hx Recreational Drug Use: No Drugs: None Hx Prescription Drug Abuse: No Family History Family History: Reviewed & Not Pertinent Parental Family History Reviewed: Yes Children Family History Reviewed: Yes Sibling(s) Family History Reviewed.: Yes Medication/Allergy Home Medications: Calcium Acetate [Phoslo 667 mg Capsule] 1,334 mg PO .[id number] 09/25/19 Calcium Acetate [Phoslo 667 mg Capsule] 2,001 mg PO Q8 09/25/19 Furosemide [Lasix 80 mg Tablet] 80 mg PO Q8 09/25/19 Insulin Detemir [Levemir] 35 unit SQ BID 09/25/19 Insulin Lispro [Humalog Insulin (Lispro) 100 unit/mL] 0 unit SUBCUT .SLD SCALE 09/25/19 Nifedipine [Procardia XL 60 mg Tablet] 60 mg PO Q12 09/25/19 Oxcarbazepine [Trileptal] 300 mg PO Q12 09/25/19 Oxycodone HCl/Acetaminophen [Percocet 7.5-325 mg Tablet] 1 each PO QIDP PRN 09/25/19 Paroxetine HCl [Paxil] 80 mg PO QPM 09/25/19 Alprazolam 1 mg PO TID 10/25/19 Metolazone 10 mg PO DAILY 10/25/19 Promethazine HCl [Phenergan 25 mg Tablet] 12.5 mg PO Q6HP PRN 10/25/19 Atorvastatin Calcium [Lipitor 80 mg Tablet] 80 mg PO QHS 11/29/19 Carvedilol [Coreg 3.125 mg Tablet] 3.125 mg PO Q12 11/29/19 Clonidine HCl [Catapres 0.1 mg Tablet] 0.1 mg PO Q8 11/29/19 Clopidogrel Bisulfate [Plavix 75 mg Tablet] 75 mg PO DAILY 11/29/19 Apixaban [Eliquis 2.5 mg Tablet] 2.5 mg PO BID #60 tablet 12/28/19 Ondansetron [Zofran Odt 4 mg Tablet] 1 tab PO Q4H PRN #15 tab.rapdis 02/26/20 Prochlorperazine Maleate [Compazine 10 mg Tablet] 10 mg PO BID PRN #10 tablet 02/26/20 Albuterol Sulfate [Proair HFA Inhalation Aerosol 8.5 gm MDI] 2 puff IH Q4HP PRN 03/11/20 Gabapentin Enacarbil [Horizant] 300 mg PO QPM 03/11/20 Insulin Aspart [Novolog] 12 unit SQ TID 03/11/20 Tizanidine HCl [Zanaflex 4 Mg Tablet] 4 mg PO BIDP PRN 03/11/20 Zolpidem Tartrate [Ambien] 10 mg PO HSP PRN 03/11/20 Dicyclomine HCl [Bentyl 10 mg Capsule] 1 cap PO TID #30 cap 03/25/20 Allergies/Adverse Reactions: aspirin [Aspirin] Allergy (Verified 03/11/20 08:31) Anaphylaxis ciprofloxacin [From Cipro] Allergy (Verified 03/11/20 08:31) Anaphylaxis clindamycin [Clindamycin] Allergy (Verified 03/11/20 08:31) hydrocodone [From Vicodin] Allergy (Verified 03/11/20 08:31) ibuprofen [From Motrin] Allergy (Verified 03/11/20 08:31) Anaphylaxis lidocaine [From Lidoderm] Allergy (Verified 03/11/20 08:31) Generalized rash tramadol HCl [From Ultram] Allergy (Verified 03/11/20 08:31) vancomycin [Vancomycin] Allergy (Verified 03/11/20 08:31) Shortness of Breath nitroglycerin [Nitroglycerin] Adverse Reaction (Intermediate, Verified 03/11/20 08:31) Joint pain Physical Exam Vital Signs: Temp Pulse Resp BP Pulse Ox 98.3 F 81 18 148/90 H 100 04/26/20 06:51 04/26/20 06:51 04/26/20 06:51 04/26/20 06:51 04/26/20 06:51 Intake & Output 04/25/20 04/26/20 04/27/20 06:59 06:59 06:59 Weight 116 kg Results Laboratory Results: 04/26/20 06:45 04/26/20 06:45 04/26/20 04/26/20 06:45 06:45 WBC 7.1 RBC 4.03 Hgb 11.3 L Hct 34.6 L MCV 86 MCH 28.1 MCHC 32.7 RDW 18.0 H Plt Count 253 Seg Neutrophils % 55.4 Sodium 132.5 L Potassium 5.4 H Chloride 94 L Carbon Dioxide 24 Anion Gap 15 BUN 68 H Creatinine 10.05 H Est GFR ( Amer) 5 L Glucose 312 H Calcium 8.9 Total Bilirubin 0.4 AST 24 Alkaline Phosphatase 103 Total Protein 8.2 Albumin 4.2 04/26/20 04/26/20 06:45 06:45 Creatine Kinase 67 CK-MB (CK-2) 1.04 Troponin I 0.649 Impressions: Chest X-Ray 04/26/20 06:51 IMPRESSION: Cardiomegaly and bilateral asymmetric interstitial alveolar opacities. Clinical correlation for signs and symptoms of CHF/pulmonary edema is recommended. 04/26/20 06:45 04/26/20 06:45 MCV 86 fl (80-97) 04/26/20 06:45 MCH 28.1 pg (27.0-33.4) 04/26/20 06:45 MCHC 32.7 g/dL (32.0-36.0) 04/26/20 06:45 RDW 18.0 % (11.5-14.0) H 04/26/20 06:45 Seg Neutrophils % 55.4 % (42-78) 04/26/20 06:45 Chloride 94 mmol/L (98-107) L 04/26/20 06:45 Carbon Dioxide 24 mmol/L (22-30) 04/26/20 06:45 Anion Gap 15 (5-19) 04/26/20 06:45 Est GFR ( Amer) 5 (>60) L 04/26/20 06:45 Glucose 312 mg/dL (75-110) H 04/26/20 06:45 Calcium 8.9 mg/dL (8.4-10.2) 04/26/20 06:45 Total Bilirubin 0.4 mg/dL (0.2-1.3) 04/26/20 06:45 AST 24 U/L (14-36) 04/26/20 06:45 Alkaline Phosphatase 103 U/L (38-126) 04/26/20 06:45 Total Protein 8.2 g/dL (6.3-8.2) 04/26/20 06:45 Albumin 4.2 g/dL (3.5-5.0) 04/26/20 06:45 04/26/20 04/26/20 04/26/20 06:45 06:45 10:19 Creatine Kinase 67 CK-MB (CK-2) 1.04 Troponin I 0.649 0.699 Current Medication List Generic Name Dose Route Start Last Admin Trade Name Freq PRN Reason Stop Dose Admin Sodium Chloride 1,000 mls @ 0 mls/hr 04/26/20 11:17 Nacl 0.9% 1000 Ml Iv Soln IV 04/26/20 23:59 .DIALYSIS PRN THIS MED IS NOT "PRN" As Directed Discontinued Medications Generic Name Dose Route Start Last Admin Trade Name Freq PRN Reason Stop Dose Admin Acetaminophen 975 mg 04/26/20 07:39 04/26/20 08:02 Tylenol 325 Mg Tablet PO 04/26/20 07:40 975 mg NOW ONE Administration Morphine Sulfate 4 mg 04/26/20 07:37 04/26/20 08:02 Morphine 10 Mg/Ml Inj IV 04/26/20 07:38 4 mg NOW ONE Administration Morphine Sulfate 4 mg 04/26/20 10:15 04/26/20 11:27 Morphine 10 Mg/Ml Inj IV 04/26/20 10:16 4 mg NOW ONE Administration Nitroglycerin 1 tab 04/26/20 10:14 Nitrostat 0.4 Mg (1/150 Gr) Tabs 25/Bottle SL 05/26/20 10:13 Q5MP PRN FOR CHEST PAIN Ondansetron HCl 4 mg 04/26/20 07:38 04/26/20 08:03 Zofran Inj/Pf 4 Mg/2 Ml Sdv IV 04/26/20 07:39 4 mg NOW ONE Administration Assessment & Plan - Diagnosis (1) Chest pain Plan: 34-year-old female with multiple cardiac risk factors who presented to the emergency room with very atypical chest pain lasting for the last 3 days in a constant fashion. I performed a bedside echocardiogram in the emergency room as the patient was having chest pain which demonstrated grossly normal wall motion and normal systolic function therefore I do not believe her chest pain is ischemic in etiology but either musculoskeletal, secondary to her severe hypertension or even possibly myopericarditis. It was alleviated by Tylenol and morphine. Recommendations: -Continue with pain control of your choice. -Cardiac telemetry. -We will continue to follow-up with you. (2) Elevated troponin I level Plan: Likely multifactorial in etiology given her uncontrolled hypertension, her acute exacerbation of heart failure and ESRD and possibly myopericarditis however, given the technical limitations of this facility, I discussed with the patient that she should be transferred to a higher echelon of care however she refused stating that she had to take care of her son. A bedside echocardiogram in the emergency room with the patient having chest pain demonstrated grossly normal wall motion with normal ejection fraction. Recommendations: -Dialysis today as discussed with Dr. Farah. -Continue to trend cardiac enzymes. -Formal echocardiogram. -We will continue to follow with you. (3) Heart failure with preserved ejection fraction Plan: Likely secondary to fluid overload as she is due for dialysis today. Recommendations: -Dialysis today. -Continue with outpatient medical therapy. -Restrict fluid intake to 1500 cc daily. -Low sodium diet, less than 1500 mg daily. -Daily weights. (4) Hypertension Qualifiers: Plan: Further management per nephrology team. (5) ESRD (end stage renal disease) on dialysis Plan: The patient will be dialyzed today. Further management per nephrology team.
--- NOTE | 2020-04-26 12:39 | EKG REPORT ---
SEVERITY:- ABNORMAL ECG - SINUS RHYTHM FIRST DEGREE AV BLOCK PROBABLE LEFT VENTRICULAR HYPERTROPHY PROLONGED QT INTERVAL : Confirmed by: Daniela Lemons 26-Apr-2020 12:38:32
--- NOTE | 2020-04-26 16:07 | XCELERA REPORT ---
[address] [address] Transthoracic Echocardiogram Report Name: ERICH GOODMAN Age: 34 yrs Gender: Female : 1985 Patient Status: Inpatient Patient Location: [place] [address]^A Study Date: 04/26/2020 11:50 AM Height: 67 in Weight: 255 lb BSA: 2.2 m2 Procedure: A complete two-dimensional transthoracic echocardiogram was performed (2D, M-mode, spectral and color flow Doppler). The study was technically difficult with many images being suboptimal in quality. Reason For Study: Chest pain, positive troponin History: ESRD on hemodialysis. Ordering Physician: EBONI BENNETT Performed By: Jenny Weinstein Interpretation Summary Technically limited study secondary to the patient's body habitus. The left ventricle is grossly normal size. There is mild concentric left ventricular hypertrophy. The left ventricular ejection fraction is normal. The Ejection Fraction estimate is 55-60%. Doppler measurements suggest normal left ventricular diastolic function. No gross regional wall motion abnormalities noted within the technical limitations of the studty. The left ventricular apex is not well visualized. Valvular structures were not well visualized however there was no gross significant regurgitation or hemodynamically important lesions. Trace TR. When compared to a prior study dated SEP 09, there is no significant difference. MMode/2D Measurements & Calculations RVDd: 2.5 cm LVIDd: 4.5 cm FS: 34.8 % Ao root diam: 2.7 cm IVSd: 1.1 cm LVIDs: 3.0 cm EDV(Teich): 94.2 ml Ao root area: 5.7 cm2 LVPWd: 1.2 cm ESV(Teich): 33.8 ml LA dimension: 3.5 cm EF(Teich): 64.1 % Doppler Measurements & Calculations MV E max niranjan: MV P1/2t max niranjan: Ao V2 max: LV V1 max P.0 cm/sec 117.5 cm/sec 195.9 cm/sec 6.7 mmHg MV A max niranjan: MV P1/2t: 82.9 msec Ao max PG: LV V1 max: 104.6 cm/sec MVA(P1/2t): 2.7 cm2 15.3 mmHg 129.3 cm/sec MV E/A: 1.1 MV dec slope: 415.3 cm/sec2 MV dec time: 0.29 sec PA V2 max: TR max niranjan: MV P1/2t-pr_phl: 103.2 cm/sec 265.7 cm/sec 82.9 msec PA max P.3 mmHgTR max P.2 mmHg Left Ventricle The left ventricle is grossly normal size. There is mild concentric left ventricular hypertrophy. The left ventricular ejection fraction is normal. The Ejection Fraction estimate is 55-60%. Doppler measurements suggest normal left ventricular diastolic function. No gross regional wall motion abnormalities noted within the technical limitations of the studty. The apex was not well visualized. The left ventricular apex is not well visualized. Right Ventricle The right ventricle is grossly normal size. Cannot comment on RVSF due to the technical limitations of the study. Atria The right atrium is normal in size. The left atrial size is normal. Interarterial septum not well visualized and not well dopplered. Cannot comment on ASD/PFO presence. Mitral Valve The mitral valve is not well visualized. There is no mitral valve stenosis. No significant MR noted. Aortic Valve The aortic valve is calcified. The aortic valve is not well visualized secondary to technical limitations. There is no aortic valve stenosis. No aortic regurgitation is present. Tricuspid Valve The tricuspid valve is not well visualized secondary to technical limitations. There is a trace or physiologic amount of tricuspid regurgitation. Pulmonic Valve The pulmonic valve is not well visualized. Great Vessels The inferior vena cava appeared normal and decreased > 50% with respiration (RAP 5-10 mmHg). Effusions There is no pericardial effusion. : EBONI BENNETT, Eboni
[2020-04-26] MEDS ORDERED: ONDANSETRON 4 MG TAB.RAPDIS PO PRN (18:03)
[2020-04-26] MEDS ORDERED: (PENDING PHARMACY ID) (Albuterol Sulfate 2 PUFF) IH PRN (18:03)
[2020-04-26] MEDS ORDERED: (PENDING PHARMACY ID) (Oxycodone Hcl/Acetaminophen [Percocet 7.5-325 Mg Tablet] 1 EACH) PO PRN (18:03)
[2020-04-26] MEDS ORDERED: HYDROXYZINE HCL 10 MG TABLET PO PRN (18:03)
[2020-04-26] MEDS ORDERED: ALBUTEROL SULFATE HFA (90 MCG/PUFF) 200 PUFF/8.5 GM MDI IH PRN (18:11)
[2020-04-26] MEDS ORDERED: (PENDING PHARMACY ID) (Nifedipine [Procardia Xl 60 Mg Tablet] 60 MG) PO SCH (18:15)
[2020-04-26] MEDS ORDERED: (PENDING PHARMACY ID) (Gabapentin Enacarbil [Horizant] 300 MG) PO SCH (18:15)
[2020-04-26] MEDS ORDERED: PAROXETINE PO SCH (18:15)
[2020-04-26] MEDS ORDERED: (PENDING PHARMACY ID) (Alprazolam [Alprazolam] 1 MG) PO SCH (18:15)
[2020-04-26] MEDS ORDERED: ZOLPIDEM TARTRATE 5 MG TABLET PO PRN (18:30)
[2020-04-26 18:54] LABS: CREATINE KINASE MB 3.78 ng/mL (<4.55)
[2020-04-26 18:57] LABS: TROPONIN I 1.97 ng/mL
[2020-04-26] MEDS ORDERED: CALCIUM ACETATE 667 MG CAPSULE PO SCH (19:00)
[2020-04-26] MEDS ORDERED: INSULIN LISPRO 100 UNIT/ML 3 ML VIAL SUBCUT SCH (19:00)
[2020-04-26] MEDS ORDERED: CARVEDILOL 3.125 MG TABLET PO SCH (19:00)
[2020-04-26] MEDS ORDERED: CLOPIDOGREL BISULFATE 75 MG TABLET PO SCH (19:00)
[2020-04-26] MEDS ORDERED: CALCIUM ACETATE 667 MG CAPSULE PO PRN (19:00)
[2020-04-26] MEDS ORDERED: DICYCLOMINE HCL 10 MG CAPSULE PO SCH (19:00)
[2020-04-26] MEDS: OXYCODONE HCL IR 5 MG TABLET PO PRN (20:05)
[2020-04-26] MEDS: OXYCODONE-ACETAMINOPHEN 5-325 MG TABLET PO PRN (20:07)
--- NOTE | 2020-04-26 20:10 | PDOC CONSULTATION ---
Consultation Consult Date: 04/26/20 Provider Consulted: ERICA IVY Consult reason:: ESRD History of Present Illness Admission Date/PCP: 04/26/20 11:43 HILARY HERNANDEZ MD History of Present Illness: ERICH GOODMAN is a 34 year old female Known to me with history of ESRD on maintenance hemodialysis 3 times a week secondary to diabetic nephropathy, diabetes mellitus type 1, hypertension, coronary artery disease, history of acute NH in October 2019 who presented to the emergency room this morning because of chest pains. Patient stated that 3 days ago she started experiencing this chest pain felt on the right side of her chest with radiation to her jaw and right side of the face. It is described as constant. This morning she said she woke up with the same kind of pain but it has gotten worse and excruciating for about an hour so she called EMS and she was brought to the emergency room. In the emergency room she was evaluated by composition weatherboard applier, Dr. Bennett. Her troponin was elevated. Her potassium was mildly elevated. Dr. Bennett did a bedside echocardiogram. I spoke to Dr. Bennett in the emergency room and he recommended initially to have the patient transferred for possible cardiac catheterization but patient refused and did not want to be transferred so I just recommended the patient stay here. The echocardiogram showed preserved ejection fraction of 55 to 60% with mild concentric LVH and no obvious regional or global wall motion abnormalities. Her chest x-ray showed cardiomegaly with bilateral asymmetric interstitial alveolar opacities. Head CT scan was negative. Today is the patient's dialysis today. Of note the patient states that she actually has followed up with composition weatherboard applier, Dr. Chen about couple weeks ago but patient could not tell me exactly what Dr. Chen as told her. I am seeing the patient during dialysis this afternoon. She states that the chest pain is now subsiding. She complains of headache and right shoulder pain. She said she has slight Brett short of breath but denies any cough no fever no other complaints aside from the above. Currently she is very comfortable while receiving dialysis. Her blood pressure is moderately elevated during dialysis. Past Medical History Cardiac Medical History: Reports: Coronary Artery Disease, Heart Murmur, Hypertension-primary, Myocardial Infarction Pulmonary Medical History: Reports: Asthma, Pneumonia Neurological Medical History: Reports: Migraine, Seizures - only r/t low calcium Endocrine Medical History: Reports: Diabetes Mellitus Type 1 Complications of Diabetes: Reports: Autonomic Neuropathy, Nephropathy, Retinopathy Renal/ Medical History: Reports: End Stage Renal Disease - On hemodialysis M-W-F, Hypocalcemia, Hyperkalemia, Hyperphosphatemia Malignancy Medical History: GI Medical History: Musculoskeltal Medical History: Skin Medical History: Reports: Psoriasis Psychiatric Medical History: Reports: Depression Infectious Medical History: Hematology Medical History: Reports Anemia of Chronic Kidney Disease Past Surgical History Past Surgical History: Reports: Appendectomy, Cholecystectomy, Dialysis Access Surgery AVF, Vascular Surgery - Lt AV Fistula and graft; Rt AV fistula Social History Information Source: Patient, H Records Lives with: Family Smoking Status: Never Smoker Frequency of Alcohol Use: Occasional Hx Recreational Drug Use: No Drugs: None Hx Prescription Drug Abuse: No Family History Family History: Reviewed & Not Pertinent Parental Family History Reviewed: Yes Children Family History Reviewed: Yes Sibling(s) Family History Reviewed.: Yes Medication/Allergy Home Medications: Calcium Acetate [Phoslo 667 mg Capsule] 1,334 mg PO .BIDWITHSNACKS 09/25/19 Calcium Acetate [Phoslo 667 mg Capsule] 2,001 mg PO Q8 09/25/19 Furosemide [Lasix 80 mg Tablet] 80 mg PO Q8 09/25/19 Insulin Detemir [Levemir] 35 unit SQ BID 09/25/19 Nifedipine [Procardia XL 60 mg Tablet] 60 mg PO Q12 09/25/19 Oxycodone HCl/Acetaminophen [Percocet 7.5-325 mg Tablet] 1 each PO QIDP PRN 09/25/19 Paroxetine HCl [Paxil] 80 mg PO QPM 09/25/19 Alprazolam 1 mg PO TID 10/25/19 Metolazone 10 mg PO DAILY 10/25/19 Promethazine HCl [Phenergan 25 mg Tablet] 12.5 mg PO Q6HP PRN 10/25/19 Carvedilol [Coreg 3.125 mg Tablet] 3.125 mg PO Q12 11/29/19 Clonidine HCl [Catapres 0.1 mg Tablet] 0.1 mg PO Q8 11/29/19 Clopidogrel Bisulfate [Plavix 75 mg Tablet] 75 mg PO DAILY 11/29/19 Ondansetron [Zofran Odt 4 mg Tablet] 1 tab PO Q4H PRN #15 tab.rapdis 02/26/20 Prochlorperazine Maleate [Compazine 10 mg Tablet] 10 mg PO BID PRN #10 tablet 02/26/20 Albuterol Sulfate [Proair HFA Inhalation Aerosol 8.5 gm MDI] 2 puff IH Q4HP PRN 03/11/20 Gabapentin Enacarbil [Horizant] 300 mg PO QPM 03/11/20 Insulin Aspart [Novolog] 12 unit SQ TID 03/11/20 Zolpidem Tartrate [Ambien] 10 mg PO HSP PRN 03/11/20 Dicyclomine HCl [Bentyl 10 mg Capsule] 1 cap PO TID #30 cap 03/25/20 Hydroxyzine HCl [Atarax 10 mg Tablet] 25 mg PO Q6HP PRN 04/26/20 Omeprazole 20 mg PO DAILY 04/26/20 Allergies/Adverse Reactions: aspirin [Aspirin] Allergy (Verified 03/11/20 08:31) Anaphylaxis ciprofloxacin [From Cipro] Allergy (Verified 03/11/20 08:31) Anaphylaxis clindamycin [Clindamycin] Allergy (Verified 03/11/20 08:31) hydrocodone [From Vicodin] Allergy (Verified 03/11/20 08:31) ibuprofen [From Motrin] Allergy (Verified 03/11/20 08:31) Anaphylaxis lidocaine [From Lidoderm] Allergy (Verified 03/11/20 08:31) Generalized rash tramadol HCl [From Ultram] Allergy (Verified 03/11/20 08:31) vancomycin [Vancomycin] Allergy (Verified 03/11/20 08:31) Shortness of Breath nitroglycerin [Nitroglycerin] Adverse Reaction (Intermediate, Verified 03/11/20 08:31) Joint pain Review of Systems All systems: reviewed and no additional remarkable complaints except as stated Review of Systems: Constitutional: ABSENT: chills, fatigue, fever(s), weight gain, weight loss; admits headache Eyes: ABSENT: visual disturbances Ears: ABSENT: hearing changes Cardiovascular: ABSENT: Dyspnea on exertion, edema, orthropnea, palpitations; admits chest pains Respiratory: ABSENT: cough, dyspnea, hemoptysis Gastrointestinal: ABSENT: abdominal pain, constipation, diarrhea, hematemesis, hematochezia, nausea, vomiting Genitourinary: ABSENT: dysuria, hematuria Musculoskeletal: ABSENT: joint swelling; admits right shoulder pain Integumentary: ABSENT: rash, wounds Neurological: ABSENT: abnormal gait, abnormal speech, confusion, dizziness, focal weakness, numbness, syncope Psychiatric: ABSENT: anxiety, depression Endocrine: ABSENT: cold intolerance, heat intolerance, polydipsia, polyuria Hematologic/Lymphatic: ABSENT: easy bleeding, easy bruising, lymphadenopathy Physical Exam Vital Signs: Temp Pulse Resp BP Pulse Ox 98.3 F 81 14 163/87 H 100 04/26/20 06:51 04/26/20 06:51 04/26/20 11:00 04/26/20 10:01 04/26/20 11:00 Intake & Output 04/25/20 04/26/20 04/27/20 06:59 06:59 06:59 Weight 116 kg Vitals during dialysis: Blood pressure 176/92, heart rate of 85, blood flow rate of 450 mL/min and dialysate flow rate of 800 mL/min. Exam: General appearance: No acute distress, cooperative, well-developed, well- nourished, obese Head exam: PRESENT: atraumatic, normocephalic Eye exam: PRESENT: Conjunctiva [place], EOMI, PERRLA. ABSENT: conjunctival injection, scleral icterus Mouth exam: PRESENT: moist, neck supple, tongue midline Neck exam: PRESENT: full ROM. ABSENT: carotid bruit, JVD, lymphadenopathy, thyromegaly Respiratory exam: PRESENT: clear to auscultation bilaterally. ABSENT: rales, rhonchi, stridor, wheezes Cardiovascular exam: PRESENT: RRR, +S1, +S2. ABSENT: systolic murmur Pulses: PRESENT: normal radial pulses, normal dorsalis pedis pulses GI/Abdominal exam: PRESENT: normal bowel sounds, soft. ABSENT: guarding, mass, tenderness Rectal exam: Deferred Extremities exam: PRESENT: full ROM. ABSENT: calf tenderness, pedal edema Musculoskeletal: PRESENT: full ROM. ABSENT: deformity Neurological exam: PRESENT: alert, Awake, Oriented to person, Oriented to place, Oriented to time, reflexes normal, CN II-XII grossly intact. ABSENT: motor sensory deficit Psychiatric exam: PRESENT: appropriate affect, normal mood. ABSENT: homicidal ideation, suicidal ideation Skin exam: PRESENT: intact, dry, warm. ABSENT: rash Results Laboratory Results: 04/26/20 06:45 04/26/20 06:45 04/26/20 04/26/20 06:45 06:45 WBC 7.1 RBC 4.03 Hgb 11.3 L Hct 34.6 L MCV 86 MCH 28.1 MCHC 32.7 RDW 18.0 H Plt Count 253 Seg Neutrophils % 55.4 Sodium 132.5 L Potassium 5.4 H Chloride 94 L Carbon Dioxide 24 Anion Gap 15 BUN 68 H Creatinine 10.05 H Est GFR ( Amer) 5 L Glucose 312 H Calcium 8.9 Total Bilirubin 0.4 AST 24 Alkaline Phosphatase 103 Total Protein 8.2 Albumin 4.2 04/26/20 04/26/20 04/26/20 06:45 06:45 10:19 Creatine Kinase 67 CK-MB (CK-2) 1.04 Troponin I 0.649 0.699 Impressions: Chest X-Ray 04/26/20 06:51 IMPRESSION: Cardiomegaly and bilateral asymmetric interstitial alveolar opacities. Clinical correlation for signs and symptoms of CHF/pulmonary edema is recommended. Head CT 04/26/20 10:16 IMPRESSION: No acute intracranial abnormality. EVIDENCE OF ACUTE STROKE: NO. Assessment & Plan - Diagnosis (1) Chest pain Is this a current diagnosis for this admission?: Yes Plan: Per Dr. Bennett, he thinks that the patient's pain is nonischemic and possibly due to myopericarditis yet needs to be monitored. (2) Elevated troponin I level Is this a current diagnosis for this admission?: Yes (3) Heart failure with preserved ejection fraction Is this a current diagnosis for this admission?: Yes Plan: Echocardiogram showed ejection fraction of 55 to 60%. (4) End stage renal disease on dialysis Is this a current diagnosis for this admission?: Yes Plan: We will do dialysis today for 3 hours, using the patient's AV fistula, with 2 potassium bath, blood flow rate of 450 mL per minute, dialysate flow rate of 800 mL per minute, ultrafiltration 45 L as tolerated, no heparin and no Retacrit. Patient is being monitored during dialysis. Adjust ultrafiltration accordingly. (5) Hyperkalemia Is this a current diagnosis for this admission?: Yes Plan: Dialysis today. (6) Anemia in chronic kidney disease (CKD) Qualifiers: Chronic kidney disease stage: on chronic dialysis Qualified Code(s): N18.6 - End stage renal disease; D63.1 - Anemia in chronic kidney disease; Z99.2 - Dependence on renal dialysis Is this a current diagnosis for this admission?: Yes Plan: Retacrit only as needed during dialysis. (7) Shoulder pain, right Is this a current diagnosis for this admission?: Yes Plan: Will do shoulder x-ray just in case this is a noncardiac etiology of her pain with radiation to her chest, neck and jaw. (8) Hypertension Qualifiers: Is this a current diagnosis for this admission?: Yes Plan: Patient's blood pressure is usually controlled with current home blood pressure regimen. (9) Hyponatremia Is this a current diagnosis for this admission?: Yes Plan: Hopefully ultrafiltration will help this. (10) Diabetes mellitus type 1 Qualifiers: Diabetes mellitus complication status: with neurologic complications Diabetes mellitus complication detail: with polyneuropathy Qualified Code(s): E10.42 - Type 1 diabetes mellitus with diabetic polyneuropathy Is this a current diagnosis for this admission?: Yes - Notes Notes: Thank you for this consultation we will follow with you. - Time Time Spent: 50 to 70 Minutes
[2020-04-26] MEDS: CLONIDINE HCL 0.1 MG TABLET PO SCH (21:32)
[2020-04-26] MEDS: NIFEDIPINE 30 MG TAB.ER.24 PO SCH (21:32)
[2020-04-26] MEDS: FUROSEMIDE 80 MG TABLET PO SCH (21:32)
[2020-04-26] MEDS: ALPRAZOLAM 0.5 MG TABLET PO SCH (21:33)
[2020-04-26] MEDS: PAROXETINE HCL 20 MG TABLET PO SCH (21:33)
[2020-04-26] MEDS: CARVEDILOL 3.125 MG TABLET PO SCH (21:33)
[2020-04-26] MEDS: PROMETHAZINE HCL 25 MG TABLET PO PRN (21:35)
[2020-04-26] MEDS: INSULIN GLARGINE,HUM.REC.ANLOG 1,000 UNIT/10 ML VIAL SUBCUT SCH (22:01)
--- NOTE | 2020-04-26 22:04 | PDOC H&P ---
History of Present Illness Admission Date/PCP: 04/26/20 11:43 HILARY HERNANDEZ MD History of Present Illness: ERICH GOODMAN is a 34 year old female,She has end-stage renal disease on hemod ialysis she came to the emergency room for evaluation of chest pain, the chest pain is atypical but she has multiple risk factors for ischemic heart disease. She was to be transferred to tertiary care for evaluation of the chest pain but patient refused, she was seen by the sales promoter and family advocate and she was dialyzed today in the ER. When I saw her on the floor she was stable she has minimal chest pain, she stated that the chest pain she had has subsided Past Medical History Cardiac Medical History: Reports: Congestive Heart Failure, Coronary Artery Disease, Myocardial Infarction, Hypertension, Heart Murmur Pulmonary Medical History: Reports: Asthma, Pneumonia Neurological Medical History: Reports: Migraine, Seizures - only r/t low calcium Endocrine Medical History: Reports: Diabetes Mellitus Type 1 Renal/ Medical History: Reports: End Stage Renal Disease - On hemodialysis M-W-F Malignancy Medical History: GI Medical History: Musculoskeltal Medical History: Skin Medical History: Reports: Psoriasis Psychiatric Medical History: Reports: Depression Hematology: Reports: Anemia Infectious Medical History: Past Surgical History Past Surgical History: Reports: Appendectomy, Cholecystectomy, Vascular Surgery - Lt AV Fistula and graft; Rt AV fistula Social History Lives with: Family Smoking Status: Never Smoker Frequency of Alcohol Use: Occasional Hx Recreational Drug Use: No Drugs: None Hx Prescription Drug Abuse: No Family History Family History: Reviewed & Not Pertinent Parental Family History Reviewed: Yes Children Family History Reviewed: Yes Sibling(s) Family History Reviewed.: Yes Medication/Allergy Home Medications: Calcium Acetate [Phoslo 667 mg Capsule] 1,334 mg PO .BIDWITHSNACKS 09/25/19 Calcium Acetate [Phoslo 667 mg Capsule] 2,001 mg PO Q8 09/25/19 Furosemide [Lasix 80 mg Tablet] 80 mg PO Q8 09/25/19 Insulin Detemir [Levemir] 35 unit SQ BID 09/25/19 Nifedipine [Procardia XL 60 mg Tablet] 60 mg PO Q12 09/25/19 Oxycodone HCl/Acetaminophen [Percocet 7.5-325 mg Tablet] 1 each PO QIDP PRN 09/25/19 Paroxetine HCl [Paxil] 80 mg PO QPM 09/25/19 Alprazolam 1 mg PO TID 10/25/19 Metolazone 10 mg PO DAILY 10/25/19 Promethazine HCl [Phenergan 25 mg Tablet] 12.5 mg PO Q6HP PRN 10/25/19 Carvedilol [Coreg 3.125 mg Tablet] 3.125 mg PO Q12 11/29/19 Clonidine HCl [Catapres 0.1 mg Tablet] 0.1 mg PO Q8 11/29/19 Clopidogrel Bisulfate [Plavix 75 mg Tablet] 75 mg PO DAILY 11/29/19 Ondansetron [Zofran Odt 4 mg Tablet] 1 tab PO Q4H PRN #15 tab.rapdis 02/26/20 Prochlorperazine Maleate [Compazine 10 mg Tablet] 10 mg PO BID PRN #10 tablet 02/26/20 Albuterol Sulfate [Proair HFA Inhalation Aerosol 8.5 gm MDI] 2 puff IH Q4HP PRN 03/11/20 Gabapentin Enacarbil [Horizant] 300 mg PO QPM 03/11/20 Insulin Aspart [Novolog] 12 unit SQ TID 03/11/20 Zolpidem Tartrate [Ambien] 10 mg PO HSP PRN 03/11/20 Dicyclomine HCl [Bentyl 10 mg Capsule] 1 cap PO TID #30 cap 03/25/20 Hydroxyzine HCl [Atarax 10 mg Tablet] 25 mg PO Q6HP PRN 04/26/20 Omeprazole 20 mg PO DAILY 04/26/20 Allergies/Adverse Reactions: aspirin [Aspirin] Allergy (Verified 03/11/20 08:31) Anaphylaxis ciprofloxacin [From Cipro] Allergy (Verified 03/11/20 08:31) Anaphylaxis clindamycin [Clindamycin] Allergy (Verified 03/11/20 08:31) hydrocodone [From Vicodin] Allergy (Verified 03/11/20 08:31) ibuprofen [From Motrin] Allergy (Verified 03/11/20 08:31) Anaphylaxis lidocaine [From Lidoderm] Allergy (Verified 03/11/20 08:31) Generalized rash tramadol HCl [From Ultram] Allergy (Verified 03/11/20 08:31) vancomycin [Vancomycin] Allergy (Verified 03/11/20 08:31) Shortness of Breath nitroglycerin [Nitroglycerin] Adverse Reaction (Intermediate, Verified 03/11/20 08:31) Joint pain Review of Systems Constitutional: ABSENT: chills, fever(s), headache(s), weight gain, weight loss Eyes: ABSENT: visual disturbances Ears: ABSENT: hearing changes Cardiovascular: PRESENT: chest pain Respiratory: ABSENT: cough, hemoptysis Gastrointestinal: ABSENT: abdominal pain, constipation, diarrhea, hematemesis, hematochezia, nausea, vomiting Genitourinary: ABSENT: dysuria, hematuria Musculoskeletal: ABSENT: joint swelling Integumentary: ABSENT: rash, wounds Neurological: ABSENT: abnormal gait, abnormal speech, confusion, dizziness, focal weakness, syncope Psychiatric: ABSENT: anxiety, depression, homidical ideation, suicidal ideation Endocrine: ABSENT: cold intolerance, heat intolerance, menstrual abnormalities, polydipsia, polyuria Hematologic/Lymphatic: ABSENT: easy bleeding, easy bruising, lymphadenopathy Physical Exam Vital Signs: Temp Pulse Resp BP Pulse Ox 97.8 F 83 20 117/67 100 04/26/20 16:25 04/26/20 19:00 04/26/20 16:25 04/26/20 16:25 04/26/20 16:25 Intake & Output 04/25/20 04/26/20 04/27/20 06:59 06:59 06:59 Intake Total 480 Output Total 5300 Balance -4820 Weight 116 kg General appearance: PRESENT: no acute distress, well-developed, well-nourished Head exam: PRESENT: atraumatic, normocephalic Eye exam: PRESENT: conjunctiva pink, EOMI, PERRLA Ear exam: PRESENT: normal external ear exam Mouth exam: PRESENT: moist, tongue midline Neck exam: PRESENT: full ROM Respiratory exam: PRESENT: clear to auscultation freddy Cardiovascular exam: PRESENT: RRR, +S1, +S2 Pulses: PRESENT: normal dorsalis pedis pul, +2 pedal pulses bilateral Vascular exam: PRESENT: normal capillary refill GI/Abdominal exam: PRESENT: normal bowel sounds, soft Rectal exam: PRESENT: deferred Neurological exam: PRESENT: alert, awake, oriented to person, oriented to place, oriented to time, oriented to situation, CN II-XII grossly intact Psychiatric exam: PRESENT: appropriate affect, normal mood Skin exam: PRESENT: dry, intact, warm Results Laboratory Results: 04/26/20 06:45 04/26/20 06:45 04/26/20 04/26/20 06:45 06:45 WBC 7.1 RBC 4.03 Hgb 11.3 L Hct 34.6 L MCV 86 MCH 28.1 MCHC 32.7 RDW 18.0 H Plt Count 253 Seg Neutrophils % 55.4 Sodium 132.5 L Potassium 5.4 H Chloride 94 L Carbon Dioxide 24 Anion Gap 15 BUN 68 H Creatinine 10.05 H Est GFR ( Amer) 5 L Glucose 312 H Calcium 8.9 Total Bilirubin 0.4 AST 24 Alkaline Phosphatase 103 Total Protein 8.2 Albumin 4.2 04/26/20 04/26/20 04/26/20 06:45 06:45 10:19 Creatine Kinase 67 CK-MB (CK-2) 1.04 Troponin I 0.649 0.699 04/26/20 04/26/20 17:51 17:51 Creatine Kinase 131 CK-MB (CK-2) 3.78 Troponin I 1.970 Impressions: Chest X-Ray 04/26/20 06:51 IMPRESSION: Cardiomegaly and bilateral asymmetric interstitial alveolar opacities. Clinical correlation for signs and symptoms of CHF/pulmonary edema is recommended. Head CT 04/26/20 10:16 IMPRESSION: No acute intracranial abnormality. EVIDENCE OF ACUTE STROKE: NO. Assessment & Plan - Diagnosis (1) Chest pain Qualifiers: Chest pain type: unspecified Qualified Code(s): R07.9 - Chest pain, unspecified Is this a current diagnosis for this admission?: Yes Plan: She has atypical chest pain but she has multiple risk factors for ischemic heart disease, she was seen by the sales promoter Dr. Bennett this morning a 2D echo was done by the bedside, there was no wall motion abnormalities, the echo was done when she was having chest pain (2) Essential (primary) hypertension Is this a current diagnosis for this admission?: Yes (3) Elevated troponin I level Is this a current diagnosis for this admission?: Yes Plan: The serum troponin was elevated there are many potential etiology this could represent ischemic heart disease or it could represent supply demand mismatch and could be ischemic, myocarditis will continue to monitor cardiac enzyme (4) Heart failure with preserved ejection fraction Qualifiers: Heart failure chronicity: chronic Qualified Code(s): I50.32 - Chronic diastolic (congestive) heart failure Is this a current diagnosis for this admission?: Yes Plan: She has heart failure with preserved ejection fraction of left ventricle, she was dialyzed today (5) End stage renal disease Is this a current diagnosis for this admission?: Yes Plan: Management per nephrology team (6) Type 1 diabetes mellitus with unspecified complications Is this a current diagnosis for this admission?: Yes Plan: Continue present regimen, sliding scale with Humalog/NovoLog
[2020-04-27 00:25] LABS: CREATINE KINASE MB 5.13 ng/mL (<4.55)
[2020-04-27 00:27] LABS: TROPONIN I 3.35 ng/mL
--- NOTE | 2020-04-27 00:47 | RADIOLOGY REPORT (SQ) ---
CLINICAL INDICATION: Right shoulder/neck pain. . TECHNIQUE: 3 view(s) were obtained of the right shoulder. COMPARISON: June 10, 2014. FINDINGS: No acute displaced fracture is identified of the shoulder. Alignment appears anatomic. Joint spaces are within normal limits for age. Metallic stents within the right brachiocephalic and subclavian veins. A stent is also seen within the axillary vein. IMPRESSION: No evidence of acute bony injury to the shoulder.
[2020-04-27] MEDS: PROMETHAZINE HCL 25 MG TABLET PO PRN (03:27)
[2020-04-27] MEDS: OXYCODONE-ACETAMINOPHEN 5-325 MG TABLET PO PRN ×2 (04:03→19:28)
[2020-04-27] MEDS: OXYCODONE HCL IR 5 MG TABLET PO PRN ×2 (04:03→19:29)
[2020-04-27] MEDS ORDERED: ONDANSETRON HCL INJ/PF 4 MG/2 ML SDV IV PRN (04:33)
[2020-04-27] MEDS: ALPRAZOLAM 0.5 MG TABLET PO SCH ×3 (05:38→22:13)
[2020-04-27] MEDS: FUROSEMIDE 80 MG TABLET PO SCH ×3 (05:38→22:14)
[2020-04-27] MEDS: CLONIDINE HCL 0.1 MG TABLET PO SCH ×3 (05:39→22:13)
[2020-04-27 06:58] LABS: CREATINE KINASE MB 4.13 ng/mL (<4.55)
[2020-04-27 07:00] LABS: TROPONIN I 4.48 ng/mL
--- NOTE | 2020-04-27 07:48 | PDOC PROGRESS REPORT ---
Subjective Progress Note for:: 04/27/20 Subjective:: ERICH GOODMAN is a 34 year old female with history of ESRD on dialysis Mondays, Wednesdays and Fridays, hypertension, type 1 diabetes and prior episodes of heart failure secondary to fluid overload, lifelong non-smoker and unknown family history for premature coronary artery disease who is consulted to our service for evaluation of chest pain. The patient states that she began with chest pain approximately 3 days ago, she describes it as an ache, stabbing/very sharp in nature, localized to the right upper chest, sometimes feels like a pressure, with radiation to the right jaw, constantly present for 3 days and just getting worse, and not associated with diaphoresis, palpitations, syncope or presyncope. She also complains of a headache and neck pain that radiates down to her chest. She denies pleuritic component to her chest pain, it is not exertional and it does not appear to be positional either. She is due for dialysis today. 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 04/27/2020: The patient underwent dialysis yesterday without cardiac complications. She had an uneventful night. Her telemetry demonstrates normal sinus rhythm without any sustained atrial or ventricular dysrhythmias. She is found sleeping in bed comfortably this morning and easily arousable. She denies recurrence of her index chest pain but complains of right shoulder pain. Her troponin continues to rise. A review of her chart demonstrates that she was admitted to this facility in October 2019 at which time she was critically ill. Her troponin at that time peaked at 10 and the patient was eventually transferred to the [facility] but unfortunately we do not have any of those records. When asked specifically about that transfer, the patient is unable to provide any details and states that she does not remember anything regarding that transfer. Physical exam on 04/27/2020: GENERAL: Pleasant and conversational, oriented x3, obese. HEENT: Normocephalic, atraumatic. Pupils equal. Sclerae anicteric. Oropharynx moist. NECK: No JVD. No carotid bruits. LUNGS: Clear to auscultation bilaterally. Normal respiratory effort without the use of accessory muscles or intercostal retractions. CARDIOVASCULAR: Regular rate and rhythm, normal S1 and S2 without murmurs, rubs, or gallops. PMI not displaced. EXTREMITIES: Trace pitting edema bilaterally, no cyanosis, no clubbing. +2 pulses femoral and pedal pulses bilaterally. SKIN: No lesions or rashes. MUSCULOSKELETAL: No chest tenderness to palpation. NEUROLOGIC: Nonfocal. No gross sensory or motor deficits bilateral upper or lower extremities. Reason For Visit: ESRD(END STAGE RENAL DISEASE)ON DIALYSIS,PULMONARY Physical Exam Vital Signs: Temp Pulse Resp BP Pulse Ox 97.7 F 85 20 146/73 H 94 04/27/20 03:59 04/27/20 04:56 04/27/20 03:59 04/27/20 04:56 04/27/20 04:56 Intake & Output 04/25/20 04/26/20 04/27/20 06:59 06:59 06:59 Intake Total 924 Output Total 5300 Balance -4376 Weight 116 kg 118.3 kg Results Laboratory Results: 04/26/20 06:45 04/26/20 06:45 04/26/20 04/26/20 06:45 06:45 WBC 7.1 RBC 4.03 Hgb 11.3 L Hct 34.6 L MCV 86 MCH 28.1 MCHC 32.7 RDW 18.0 H Plt Count 253 Seg Neutrophils % 55.4 Sodium 132.5 L Potassium 5.4 H Chloride 94 L Carbon Dioxide 24 Anion Gap 15 BUN 68 H Creatinine 10.05 H Est GFR ( Amer) 5 L Glucose 312 H Calcium 8.9 Total Bilirubin 0.4 AST 24 Alkaline Phosphatase 103 Total Protein 8.2 Albumin 4.2 04/26/20 04/26/20 04/26/20 06:45 06:45 10:19 Creatine Kinase 67 CK-MB (CK-2) 1.04 Troponin I 0.649 0.699 04/26/20 04/26/20 04/26/20 17:51 17:51 23:44 Creatine Kinase 131 135 CK-MB (CK-2) 3.78 Troponin I 1.970 04/26/20 23:44 Creatine Kinase CK-MB (CK-2) 5.13 H Troponin I 3.350 Impressions: Shoulder X-Ray 04/26/20 00:00 IMPRESSION: No evidence of acute bony injury to the shoulder. Chest X-Ray 04/26/20 06:51 IMPRESSION: Cardiomegaly and bilateral asymmetric interstitial alveolar opacities. Clinical correlation for signs and symptoms of CHF/pulmonary edema is recommended. Head CT 04/26/20 10:16 IMPRESSION: No acute intracranial abnormality. EVIDENCE OF ACUTE STROKE: NO. 04/26/20 06:45 04/26/20 06:45 MCV 86 fl (80-97) 04/26/20 06:45 MCH 28.1 pg (27.0-33.4) 04/26/20 06:45 MCHC 32.7 g/dL (32.0-36.0) 04/26/20 06:45 RDW 18.0 % (11.5-14.0) H 04/26/20 06:45 Seg Neutrophils % 55.4 % (42-78) 04/26/20 06:45 Chloride 94 mmol/L (98-107) L 04/26/20 06:45 Carbon Dioxide 24 mmol/L (22-30) 04/26/20 06:45 Anion Gap 15 (5-19) 04/26/20 06:45 Est GFR ( Amer) 5 (>60) L 04/26/20 06:45 Glucose 312 mg/dL (75-110) H 04/26/20 06:45 Calcium 8.9 mg/dL (8.4-10.2) 04/26/20 06:45 Total Bilirubin 0.4 mg/dL (0.2-1.3) 04/26/20 06:45 AST 24 U/L (14-36) 04/26/20 06:45 Alkaline Phosphatase 103 U/L (38-126) 04/26/20 06:45 Total Protein 8.2 g/dL (6.3-8.2) 04/26/20 06:45 Albumin 4.2 g/dL (3.5-5.0) 04/26/20 06:45 04/26/20 04/26/20 04/26/20 06:45 06:45 10:19 Creatine Kinase 67 CK-MB (CK-2) 1.04 Troponin I 0.649 0.699 04/26/20 04/26/20 04/26/20 17:51 17:51 23:44 Creatine Kinase 131 135 CK-MB (CK-2) 3.78 Troponin I 1.970 04/26/20 23:44 Creatine Kinase CK-MB (CK-2) 5.13 H Troponin I 3.350 Current Medication List Generic Name Dose Route Start Last Admin Trade Name Kierra PRN Reason Stop Dose Admin Albuterol 2 puff 04/26/20 18:11 Proair Hfa Inhalation Aerosol 8.5 Gm Mdi IH 05/26/20 18:10 Q4HP PRN FOR SHORTNESS OF BREATH Alprazolam 1 mg 04/26/20 22:00 04/27/20 05:38 Xanax 0.5 Mg Tablet PO 05/03/20 21:59 1 mg Q8 GURPREET Administration Calcium Acetate 1,334 mg 04/26/20 19:00 Phoslo 667 Mg Capsule PO 05/26/20 18:59 .BIDWITHSNACKS PRN TWICE DAILY WITH SNACKS Calcium Acetate 2,001 mg 04/27/20 08:00 Phoslo 667 Mg Capsule PO 05/27/20 07:59 MEALS GURPREET Carvedilol 3.125 mg 04/26/20 22:00 04/26/20 21:33 Coreg 3.125 Mg Tablet PO 05/26/20 21:59 3.125 mg Q12 GURPREET Administration Clonidine 0.1 mg 04/26/20 22:00 04/27/20 05:39 Catapres 0.1 Mg Tablet PO 05/26/20 21:59 0.1 mg Q8 GURPREET Administration Clopidogrel Bisulfate 75 mg 04/27/20 10:00 Plavix 75 Mg Tablet PO 05/27/20 09:59 DAILY GURPREET Dicyclomine HCl 10 mg 04/27/20 10:00 Bentyl 10 Mg Capsule PO 05/27/20 09:59 TID GURPREET Furosemide 80 mg 04/26/20 22:00 04/27/20 05:38 Lasix 80 Mg Tablet PO 05/26/20 21:59 80 mg Q8 GURPREET Administration Hydroxyzine HCl 25 mg 04/26/20 18:03 Atarax 10 Mg Tablet PO 05/26/20 18:02 Q6HP PRN ITCHING Insulin Glargine 35 unit 04/26/20 22:00 04/26/20 22:01 Lantus Insulin 100 Unit/1 Ml 10 Ml SUBCUT 05/26/20 21:59 35 unit Q12 GURPREET Administration Insulin Human Lispro 12 unit 04/27/20 08:00 Humalog Insulin 100 Unit/1 Ml 3 Ml Vial SUBCUT 05/27/20 07:59 AC GURPREET Metolazone 10 mg 04/27/20 10:00 Zaroxolyn 5 Mg Tablet PO 05/27/20 09:59 DAILY [facility] Nifedipine 60 mg 04/26/20 22:00 04/26/20 21:32 Procardia Xl 30 Mg Tablet PO 05/26/20 21:59 60 mg Q12 GURPREET Administration Ondansetron HCl 4 mg 04/26/20 18:03 Zofran Odt 4 Mg Tablet PO 05/26/20 18:02 Q4HP PRN FOR NAUSEA/VOMITING Ondansetron HCl 4 mg 04/27/20 04:33 04/27/20 04:38 Zofran Inj/Pf 4 Mg/2 Ml Sdv IV 05/27/20 04:32 4 mg Q4HP PRN Administration FOR NAUSEA/VOMITING Oxycodone HCl 2.5 mg 04/26/20 18:23 04/27/20 04:03 Oxy-Ir 5 Mg Tablet PO 05/03/20 18:22 2.5 mg Q6HP PRN Administration FOR SEVERE PAIN Oxycodone/Acetaminophen 1 tab 04/26/20 18:22 04/27/20 04:03 Percocet 5-325 Mg Tablet PO 05/03/20 18:21 1 tab Q6HP PRN Administration FOR SEVERE PAIN Pantoprazole Sodium 20 mg 04/27/20 10:[address] Tablet PO 05/27/20 09:59 DAILY [facility] Paroxetine HCl 80 mg 04/26/20 22:00 04/26/20 21:33 Paxil 20 Mg Tablet PO 05/26/20 21:59 80 mg QHS GURPREET Administration Patient Own Medication 300 mg 04/26/20 18:15 Gabapentin Enacarbil [Horizant] PO 05/26/20 18:14 .QPM [facility] Promethazine HCl 12.5 mg 04/26/20 18:03 04/27/20 03:27 Phenergan 25 Mg Tablet PO 05/26/20 18:02 12.5 mg Q6HP PRN Administration FOR UNRESOLVED NAUSEA/VOMITING Zolpidem Tartrate 10 mg 04/26/20 18:30 Ambien 5 Mg Tablet PO 05/03/20 18:29 HSP PRN FOR SLEEP Discontinued Medications Generic Name Dose Route Start Last Admin Trade Name Freq PRN Reason Stop Dose Admin Acetaminophen 975 mg 04/26/20 07:39 04/26/20 08:02 Tylenol 325 Mg Tablet PO 04/26/20 07:40 975 mg NOW ONE Administration Calcium Acetate 2,001 mg 04/26/20 19:00 Phoslo 667 Mg Capsule PO 05/26/20 18:59 MEALS [facility] Carvedilol 3.125 mg 04/26/20 19:00 Coreg 3.125 Mg Tablet PO 05/26/20 18:59 Q12A GURPREET Clopidogrel Bisulfate 75 mg 04/26/20 19:00 Plavix 75 Mg Tablet PO 05/26/20 18:59 DAILY [facility] Dicyclomine HCl 10 mg 04/26/20 19:00 Bentyl 10 Mg Capsule PO 05/26/20 18:59 TID [facility] Sodium Chloride 1,000 mls @ 0 mls/hr 04/26/20 11:17 Nacl 0.9% 1000 Ml Iv Soln IV 04/26/20 23:59 .DIALYSIS PRN THIS MED IS NOT "PRN" As Directed Insulin Human Lispro 12 unit 04/26/20 19:00 Humalog Insulin 100 Unit/1 Ml 3 Ml Vial SUBCUT 05/26/20 18:59 AC [facility] Morphine Sulfate 4 mg 04/26/20 07:37 04/26/20 08:02 Morphine 10 Mg/Ml Inj IV 04/26/20 07:38 4 mg NOW ONE Administration Morphine Sulfate 4 mg 04/26/20 10:15 04/26/20 11:27 Morphine 10 Mg/Ml Inj IV 04/26/20 10:16 4 mg NOW ONE Administration Nitroglycerin 1 tab 04/26/20 10:14 Nitrostat 0.4 Mg (1/150 Gr) Tabs 25/Bottle SL 05/26/20 10:13 Q5MP PRN FOR CHEST PAIN Ondansetron HCl 4 mg 04/26/20 07:38 04/26/20 08:03 Zofran Inj/Pf 4 Mg/2 Ml Sdv IV 04/26/20 07:39 4 mg NOW ONE Administration Assessment & Plan - Diagnosis (1) Chest pain Qualifiers: Chest pain type: unspecified Qualified Code(s): R07.9 - Chest pain, unspecified Is this a current diagnosis for this admission?: Yes Plan: 34-year-old female with multiple cardiac risk factors who presented to the emergency room with very atypical chest pain lasting for the last 3 days in a constant fashion. Her chest pain has not recurred after dialysis. See #2 below for further recommendations. Recommendations: -Continue with pain control of your choice. -Cardiac telemetry. -We will continue to follow-up with you. (2) Elevated troponin I level Is this a current diagnosis for this admission?: Yes Plan: The patient does not have ischemic symptoms at this point however her troponin continues to rise. She was admitted to this facility in October 2019 at which time she was extremely sick with a troponin that peaked at 10. She was seen by Dr. Chen and eventually the patient was transferred to [facility] but unfortunately none of those records are available for my review and the patient does not remember any details of that transfer. Her elevated troponin is likely multifactorial in etiology given her uncontrolled hypertension, her acute exacerbation of heart failure and ESRD and possibly myopericarditis however, she is at at very elevated risk for coronary artery disease given her comorbidities. Given the fact that she has remained hemodynamically stable and without ischemic symptoms we will continue with current medical management and will obtain a copy of the records from [facility] in order to clarify what kind of cardiovascular work-up she had done. Of note, her echocardiogram demonstrated a grossly normal LV systolic function without gross focal wall motion abnormalities. Of note, the patient is apparently allergic to aspirin. Recommendations: -Continue to trend cardiac enzymes. -Increase carvedilol to 6.25 mg twice daily. -Get records from [facility]. -We will continue to follow with you. (3) Heart failure with preserved ejection fraction Qualifiers: Heart failure chronicity: chronic Qualified Code(s): I50.32 - Chronic diastolic (congestive) heart failure Is this a current diagnosis for this admission?: Yes Plan: Secondary to medication and dialysis noncompliance. She underwent dialysis yesterday and feels much better today. Recommendations: -Continue with dialysis per nephrology recommendations. -Continue with current medical therapy. -Restrict fluid intake to 1500 cc daily. -Low sodium diet, less than 1500 mg daily. (4) Hypertension Qualifiers: Is this a current diagnosis for this admission?: Yes Plan: Her blood pressure is improved however continues to be above goal. Recommendations: -Increase carvedilol to 6.25 mg twice daily. (5) ESRD (end stage renal disease) on dialysis Plan: The patient underwent dialysis yesterday. Nephrology team is on board now.
[2020-04-27] MEDS: CALCIUM ACETATE 667 MG CAPSULE PO SCH ×3 (07:53→17:01)
[2020-04-27] MEDS: INSULIN LISPRO 100 UNIT/ML 3 ML VIAL SUBCUT SCH ×3 (07:53→16:50)
[2020-04-27] MEDS: DICYCLOMINE HCL 10 MG CAPSULE PO SCH ×3 (09:24→17:01)
[2020-04-27] MEDS: NIFEDIPINE 30 MG TAB.ER.24 PO SCH ×2 (09:25→22:14)
[2020-04-27] MEDS: CLOPIDOGREL BISULFATE 75 MG TABLET PO SCH (09:25)
[2020-04-27] MEDS: PANTOPRAZOLE SODIUM 20 MG TABLET.DR PO SCH (09:25)
[2020-04-27] MEDS: INSULIN GLARGINE,HUM.REC.ANLOG 1,000 UNIT/10 ML VIAL SUBCUT SCH ×2 (09:25→22:12)
[2020-04-27] MEDS: CARVEDILOL 3.125 MG TABLET PO SCH ×2 (09:25→22:13)
[2020-04-27] MEDS: METOLAZONE 5 MG TABLET PO SCH (09:25)
[2020-04-27 14:50] LABS: CREATINE KINASE MB 3.22 ng/mL (<4.55); TROPONIN I 5.26 ng/mL
--- NOTE | 2020-04-27 15:55 | PDOC PROGRESS REPORT ---
Subjective Progress Note for:: 04/27/20 Subjective:: She reported improvement in her chest pain. Breathing less labored. Had episodes of nausea and vomiting overnight. No abdominal pain. No fever or chills. Her cardiac enzymes continue to trend upward. Patient continue to refuse transfer to tertiary center. Reason For Visit: ESRD(END STAGE RENAL DISEASE)ON DIALYSIS,PULMONARY Physical Exam Vital Signs: Temp Pulse Resp BP Pulse Ox 98.1 F 78 19 135/69 H 96 04/27/20 11:11 04/27/20 14:00 04/27/20 11:11 04/27/20 11:11 04/27/20 11:11 Intake & Output 04/26/20 04/27/20 04/28/20 06:59 06:59 06:59 Intake Total 924 560 Output Total 5300 Balance -4376 560 Weight 116 kg 118.3 kg General appearance: PRESENT: mild distress - with supplemental oxygen in use via nasal cannula, morbidly obese Head exam: PRESENT: atraumatic, normocephalic Eye exam: PRESENT: conjunctiva pink. ABSENT: scleral icterus Mouth exam: PRESENT: moist Respiratory exam: PRESENT: clear to auscultation freddy Cardiovascular exam: PRESENT: RRR, +S1, +S2. ABSENT: diastolic murmur, rubs, systolic murmur Pulses: PRESENT: +2 pedal pulses bilateral Vascular exam: ABSENT: pallor GI/Abdominal exam: PRESENT: normal bowel sounds, soft. ABSENT: distended, guarding, mass, organolmegaly, rebound, tenderness Extremities exam: PRESENT: pedal edema - trace Neurological exam: PRESENT: alert, awake, oriented to person, oriented to place, oriented to time, oriented to situation, CN II-XII grossly intact. ABSENT: motor sensory deficit Psychiatric exam: PRESENT: appropriate affect, normal mood. ABSENT: homicidal ideation, suicidal ideation Skin exam: PRESENT: dry, warm Results Laboratory Results: 04/26/20 06:45 04/26/20 06:45 04/26/20 04/26/20 04/26/20 06:45 06:45 10:19 Creatine Kinase 67 CK-MB (CK-2) 1.04 Troponin I 0.649 0.699 04/26/20 04/26/20 04/26/20 17:51 17:51 23:44 Creatine Kinase 131 135 CK-MB (CK-2) 3.78 Troponin I 1.970 04/26/20 04/27/20 04/27/20 23:44 05:56 05:56 Creatine Kinase 137 H CK-MB (CK-2) 5.13 H 4.13 Troponin I 3.350 4.480 04/27/20 04/27/20 13:50 13:50 Creatine Kinase 115 CK-MB (CK-2) 3.22 Troponin I 5.260 Impressions: Shoulder X-Ray 04/26/20 00:00 IMPRESSION: No evidence of acute bony injury to the shoulder. Chest X-Ray 04/26/20 06:51 IMPRESSION: Cardiomegaly and bilateral asymmetric interstitial alveolar opacities. Clinical correlation for signs and symptoms of CHF/pulmonary edema is recommended. Head CT 04/26/20 10:16 IMPRESSION: No acute intracranial abnormality. EVIDENCE OF ACUTE STROKE: NO. Assessment & Plan - Diagnosis (1) Chest pain Qualifiers: Chest pain type: unspecified Qualified Code(s): R07.9 - Chest pain, unspecified Is this a current diagnosis for this admission?: Yes Plan: Continue current medication management. Cardiology input appreciated. (2) Elevated troponin I level Is this a current diagnosis for this admission?: Yes Plan: Continue current medication management. Cardiology input appreciated. (3) Heart failure with preserved ejection fraction Qualifiers: Heart failure chronicity: chronic Qualified Code(s): I50.32 - Chronic diastolic (congestive) heart failure Is this a current diagnosis for this admission?: Yes Plan: Continue current medication management. Cardiology input appreciated. (4) Essential (primary) hypertension Is this a current diagnosis for this admission?: Yes Plan: Continue current medication management. Cardiology input appreciated. (5) Diabetes mellitus type 1 with complications Is this a current diagnosis for this admission?: Yes Plan: Continue current medication management. Emphasized dietary compliance. (6) CKD (chronic kidney disease) stage V requiring chronic dialysis Is this a current diagnosis for this admission?: Yes Plan: Continue current medication management. She will remain on HD supplementation. Nephrology input appreciated. (7) Obesity, morbid, BMI 40.0-49.9 Is this a current diagnosis for this admission?: Yes Plan: Continue current medication management and caloric restriction management. - Time Time Spent with patient: 25-34 minutes Level of Care: IMCU Medications reviewed and adjusted accordingly: Yes Anticipated discharge: Home Within: Other - Inpatient Certification Based on my medical assessment, after consideration of the patient's comorbidities, presenting symptoms, or acuity I expect that the services needed warrant INPATIENT care.: Yes I certify that my determination is in accordance with my understanding of Medicare's requirements for reasonable and necessary INPATIENT services [42 CFR 412.3e].: Yes Medical Necessity: Significant Comorbidiites Make Outpatient Treatment Too Risky, Need Close Monitoring Due to Risk of Patient Decompensation, Need For Con tinuous Telemetry Monitoring, Risk of Complication if Not Cared For in Hospital, Risk of Diagnosis Which Will Require Inpatient Eval/Care/Monitoring Post Hospital Care: D/C Stock Counter Documentation - Plan Summary Plan Summary: Continue current medication management. Consultants input appreciated. Overall prognosis remain guarded.
--- NOTE | 2020-04-27 20:47 | EKG REPORT ---
SEVERITY:- ABNORMAL ECG - SINUS RHYTHM FIRST DEGREE AV BLOCK PROBABLE LEFT VENTRICULAR HYPERTROPHY PROLONGED QT INTERVAL : Confirmed by: Daniela Lemons 27-Apr-2020 20:46:54
[2020-04-27] MEDS: PAROXETINE HCL 20 MG TABLET PO SCH (22:15)
[2020-04-27 23:11] LABS: CREATINE KINASE MB 2.79 ng/mL (<4.55); TROPONIN I 5.68 ng/mL
[2020-04-28] MEDS: OXYCODONE-ACETAMINOPHEN 5-325 MG TABLET PO PRN ×3 (06:17→21:42)
[2020-04-28] MEDS: OXYCODONE HCL IR 5 MG TABLET PO PRN ×3 (06:18→21:43)
[2020-04-28] MEDS: ALPRAZOLAM 0.5 MG TABLET PO SCH ×3 (06:19→21:41)
[2020-04-28] MEDS: FUROSEMIDE 80 MG TABLET PO SCH ×3 (06:19→21:43)
[2020-04-28] MEDS: CLONIDINE HCL 0.1 MG TABLET PO SCH ×3 (06:19→21:42)
[2020-04-28 07:11] LABS: CREATINE KINASE MB 1.97 ng/mL (<4.55); TROPONIN I 5.93 ng/mL
--- NOTE | 2020-04-28 07:49 | PDOC PROGRESS REPORT ---
Subjective Progress Note for:: 04/28/20 Subjective:: ERICH GOODMAN is a 34 year old female with history of ESRD on dialysis Mondays, Wednesdays and Fridays, hypertension, type 1 diabetes and prior episodes of heart failure secondary to fluid overload, lifelong non-smoker and unknown family history for premature coronary artery disease who is consulted to our service for evaluation of chest pain. The patient states that she began with chest pain approximately 3 days ago, she describes it as an ache, stabbing/very sharp in nature, localized to the right upper chest, sometimes feels like a pressure, with radiation to the right jaw, constantly present for 3 days and just getting worse, and not associated with diaphoresis, palpitations, syncope or presyncope. She also complains of a headache and neck pain that radiates down to her chest. She denies pleuritic component to her chest pain, it is not exertional and it does not appear to be positional either. She is due for dialysis today. Her furniture detailer is Dr. Kwon. 04/28/2020: The patient had an uneventful night. This morning she is sitting at the edge of the bed without new cardiac complaints although she continues to have low grade, persistent and constant chest pain. She continues to have right shoulder pain. Her telemetry demonstrates normal sinus rhythm without any sustained atrial or ventricular dysrhythmias and his BP is now at goal. We received very limited records from her admission at [facility] in October 2019. She was initially admitte d to the ICU and critically ill. Her troponin at that time peaked at almost 30. Cardiology was consulted and planned for outpatient LHC/RHC but the patient never followed up. Her troponin continues to rise. Physical exam on 04/28/2020: GENERAL: Sitting at the edge of her bed, somnolent but easily arousable. HEENT: Normocephalic, atraumatic. Pupils equal. Sclerae anicteric. Oropharynx moist. NECK: No JVD. No carotid bruits. LUNGS: Clear to auscultation bilaterally. Normal respiratory effort without the use of accessory muscles or intercostal retractions. CARDIOVASCULAR: Regular rate and rhythm, normal S1 and S2 rubs, or gallops. 1- 2/6 systolic murmur at the LUSB. PMI not displaced. EXTREMITIES: Trace pitting edema bilaterally, no cyanosis, no clubbing. +2 pulses femoral and pedal pulses bilaterally. SKIN: No lesions or rashes. MUSCULOSKELETAL: No chest tenderness to palpation. NEUROLOGIC: Nonfocal. No gross sensory or motor deficits bilateral upper or lower extremities. Reason For Visit: ESRD(END STAGE RENAL DISEASE)ON DIALYSIS,PULMONARY Physical Exam Vital Signs: Temp Pulse Resp BP Pulse Ox 97.2 F 75 18 124/71 100 04/28/20 03:24 04/28/20 03:24 04/28/20 03:24 04/28/20 03:24 04/28/20 03:24 Intake & Output 04/26/20 04/27/20 04/28/20 06:59 06:59 06:59 Intake Total 924 1220 Output Total 5300 Balance -4376 1220 Weight 116 kg 118.3 kg Results Laboratory Results: 04/26/20 06:45 04/26/20 06:45 04/26/20 04/26/20 04/26/20 06:45 06:45 10:19 Creatine Kinase 67 CK-MB (CK-2) 1.04 Troponin I 0.649 0.699 04/26/20 04/26/20 04/26/20 17:51 17:51 23:44 Creatine Kinase 131 135 CK-MB (CK-2) 3.78 Troponin I 1.970 04/26/20 04/27/20 04/27/20 23:44 05:56 05:56 Creatine Kinase 137 H CK-MB (CK-2) 5.13 H 4.13 Troponin I 3.350 4.480 04/27/20 04/27/20 04/27/20 13:50 13:50 22:15 Creatine Kinase 115 99 CK-MB (CK-2) 3.22 Troponin I 5.260 04/27/20 22:15 Creatine Kinase CK-MB (CK-2) 2.79 Troponin I 5.680 Impressions: Shoulder X-Ray 04/26/20 00:00 IMPRESSION: No evidence of acute bony injury to the shoulder. Chest X-Ray 04/26/20 06:51 IMPRESSION: Cardiomegaly and bilateral asymmetric interstitial alveolar opacities. Clinical correlation for signs and symptoms of CHF/pulmonary edema is recommended. Head CT 04/26/20 10:16 IMPRESSION: No acute intracranial abnormality. EVIDENCE OF ACUTE STROKE: NO. 04/26/20 06:45 04/26/20 06:45 MCV 86 fl (80-97) 04/26/20 06:45 MCH 28.1 pg (27.0-33.4) 04/26/20 06:45 MCHC 32.7 g/dL (32.0-36.0) 04/26/20 06:45 RDW 18.0 % (11.5-14.0) H 04/26/20 06:45 Seg Neutrophils % 55.4 % (42-78) 04/26/20 06:45 Chloride 94 mmol/L (98-107) L 04/26/20 06:45 Carbon Dioxide 24 mmol/L (22-30) 04/26/20 06:45 Anion Gap 15 (5-19) 04/26/20 06:45 Est GFR ( Amer) 5 (>60) L 04/26/20 06:45 Glucose 312 mg/dL (75-110) H 04/26/20 06:45 Calcium 8.9 mg/dL (8.4-10.2) 04/26/20 06:45 Total Bilirubin 0.4 mg/dL (0.2-1.3) 04/26/20 06:45 AST 24 U/L (14-36) 04/26/20 06:45 Alkaline Phosphatase 103 U/L (38-126) 04/26/20 06:45 Total Protein 8.2 g/dL (6.3-8.2) 04/26/20 06:45 Albumin 4.2 g/dL (3.5-5.0) 04/26/20 06:45 04/26/20 04/26/20 04/26/20 06:45 06:45 10:19 Creatine Kinase 67 CK-MB (CK-2) 1.04 Troponin I 0.649 0.699 04/26/20 04/26/20 04/26/20 17:51 17:51 23:44 Creatine Kinase 131 135 CK-MB (CK-2) 3.78 Troponin I 1.970 04/26/20 04/27/20 04/27/20 23:44 05:56 05:56 Creatine Kinase 137 H CK-MB (CK-2) 5.13 H 4.13 Troponin I 3.350 4.480 04/27/20 04/27/20 04/27/20 13:50 13:50 22:15 Creatine Kinase 115 99 CK-MB (CK-2) 3.22 Troponin I 5.260 04/27/20 22:15 Creatine Kinase CK-MB (CK-2) 2.79 Troponin I 5.680 Current Medication List Generic Name Dose Route Start Last Admin Trade Name Kierra PRN Reason Stop Dose Admin Albuterol 2 puff 04/26/20 18:11 Proair Hfa Inhalation Aerosol 8.5 Gm Mdi IH 05/26/20 18:10 Q4HP PRN FOR SHORTNESS OF BREATH Alprazolam 1 mg 04/26/20 22:00 04/28/20 06:19 Xanax 0.5 Mg Tablet PO 05/03/20 21:59 1 mg Q8 GURPREET Administration Calcium Acetate 1,334 mg 04/26/20 19:00 Phoslo 667 Mg Capsule PO 05/26/20 18:59 .BIDWITHSNACKS PRN TWICE DAILY WITH SNACKS Calcium Acetate 2,001 mg 04/27/20 08:00 04/27/20 17:01 Phoslo 667 Mg Capsule PO 05/27/20 07:59 2,001 mg MEALS GURPREET Administration Carvedilol 3.125 mg 04/26/20 22:00 04/27/20 22:13 Coreg 3.125 Mg Tablet PO 05/26/20 21:59 3.125 mg Q12 GURPREET Administration Clonidine 0.1 mg 04/26/20 22:00 04/28/20 06:19 Catapres 0.1 Mg Tablet PO 05/26/20 21:59 0.1 mg Q8 GURPREET Administration Clopidogrel Bisulfate 75 mg 04/27/20 10:00 04/27/20 09:25 Plavix 75 Mg Tablet PO 05/27/20 09:59 75 mg DAILY GURPREET Administration Dicyclomine HCl 10 mg 04/27/20 10:00 04/27/20 17:01 Bentyl 10 Mg Capsule PO 05/27/20 09:59 10 mg TID GURPREET Administration Furosemide 80 mg 04/26/20 22:00 04/28/20 06:19 Lasix 80 Mg Tablet PO 05/26/20 21:59 80 mg Q8 GURPREET Administration Hydroxyzine HCl 25 mg 04/26/20 18:03 Atarax 10 Mg Tablet PO 05/26/20 18:02 Q6HP PRN ITCHING Insulin Glargine 35 unit 04/26/20 22:00 04/27/20 22:12 Lantus Insulin 100 Unit/1 Ml 10 Ml SUBCUT 05/26/20 21:59 35 unit Q12 GURPREET Administration Insulin Human Lispro 12 unit 04/27/20 08:00 04/27/20 16:50 Humalog Insulin 100 Unit/1 Ml 3 Ml Vial SUBCUT 05/27/20 07:59 Not Given AC [facility] Metolazone 10 mg 04/27/20 10:00 04/27/20 09:25 Zaroxolyn 5 Mg Tablet PO 05/27/20 09:59 10 mg DAILY GURPREET Administration Nifedipine 60 mg 04/26/20 22:00 04/27/20 22:14 Procardia Xl 30 Mg Tablet PO 05/26/20 21:59 60 mg Q12 GURPREET Administration Ondansetron HCl 4 mg 04/26/20 18:03 Zofran Odt 4 Mg Tablet PO 05/26/20 18:02 Q4HP PRN FOR NAUSEA/VOMITING Ondansetron HCl 4 mg 04/27/20 04:33 04/27/20 04:38 Zofran Inj/Pf 4 Mg/2 Ml Sdv IV 05/27/20 04:32 4 mg Q4HP PRN Administration FOR NAUSEA/VOMITING Oxycodone HCl 2.5 mg 04/26/20 18:23 04/28/20 06:18 Oxy-Ir 5 Mg Tablet PO 05/03/20 18:22 2.5 mg Q6HP PRN Administration FOR SEVERE PAIN Oxycodone/Acetaminophen 1 tab 04/26/20 18:22 04/28/20 06:17 Percocet 5-325 Mg Tablet PO 05/03/20 18:21 1 tab Q6HP PRN Administration FOR SEVERE PAIN Pantoprazole Sodium 20 mg 04/27/20 10:00 04/27/20 09:[address] Tablet PO 05/27/20 09:59 20 mg DAILY GURPREET Administration Paroxetine HCl 80 mg 04/26/20 22:00 04/27/20 22:15 Paxil 20 Mg Tablet PO 05/26/20 21:59 80 mg QHS GURPREET Administration Patient Own Medication 300 mg 04/26/20 18:15 Gabapentin Enacarbil [Horizant] PO 05/26/20 18:14 .QPM GURPREET Promethazine HCl 12.5 mg 04/26/20 18:03 04/27/20 03:27 Phenergan 25 Mg Tablet PO 05/26/20 18:02 12.5 mg Q6HP PRN Administration FOR UNRESOLVED NAUSEA/VOMITING Zolpidem Tartrate 10 mg 04/26/20 18:30 Ambien 5 Mg Tablet PO 05/03/20 18:29 HSP PRN FOR SLEEP Discontinued Medications Generic Name Dose Route Start Last Admin Trade Name Kierra PRN Reason Stop Dose Admin Acetaminophen 975 mg 04/26/20 07:39 04/26/20 08:02 Tylenol 325 Mg Tablet PO 04/26/20 07:40 975 mg NOW ONE Administration Calcium Acetate 2,001 mg 04/26/20 19:00 Phoslo 667 Mg Capsule PO 05/26/20 18:59 MEALS [facility] Carvedilol 3.125 mg 04/26/20 19:00 Coreg 3.125 Mg Tablet PO 05/26/20 18:59 Q12A [facility] Clopidogrel Bisulfate 75 mg 04/26/20 19:00 Plavix 75 Mg Tablet PO 05/26/20 18:59 DAILY [facility] Dicyclomine HCl 10 mg 04/26/20 19:00 Bentyl 10 Mg Capsule PO 05/26/20 18:59 TID [facility] Sodium Chloride 1,000 mls @ 0 mls/hr 04/26/20 11:17 Nacl 0.9% 1000 Ml Iv Soln IV 04/26/20 23:59 .DIALYSIS PRN THIS MED IS NOT "PRN" As Directed Insulin Human Lispro 12 unit 04/26/20 19:00 Humalog Insulin 100 Unit/1 Ml 3 Ml Vial SUBCUT 05/26/20 18:59 AC GURPREET Morphine Sulfate 4 mg 04/26/20 07:37 04/26/20 08:02 Morphine 10 Mg/Ml Inj IV 04/26/20 07:38 4 mg NOW ONE Administration Morphine Sulfate 4 mg 04/26/20 10:15 04/26/20 11:27 Morphine 10 Mg/Ml Inj IV 04/26/20 10:16 4 mg NOW ONE Administration Nitroglycerin 1 tab 04/26/20 10:14 Nitrostat 0.4 Mg (1/150 Gr) Tabs 25/Bottle SL 05/26/20 10:13 Q5MP PRN FOR CHEST PAIN Ondansetron HCl 4 mg 04/26/20 07:38 04/26/20 08:03 Zofran Inj/Pf 4 Mg/2 Ml Sdv IV 04/26/20 07:39 4 mg NOW ONE Administration Assessment & Plan - Diagnosis (1) Chest pain Qualifiers: Chest pain type: unspecified Qualified Code(s): R07.9 - Chest pain, unspecified Is this a current diagnosis for this admission?: Yes Plan: 34-year-old female with multiple cardiac risk factors who presented to the emergency room with very atypical chest pain lasting for the last 3 days in a constant fashion. See #2 below for further recommendations. Recommendations: -Continue with pain control of your choice. -Cardiac telemetry. -We will continue to follow-up with you. (2) Elevated troponin I level Is this a current diagnosis for this admission?: Yes Plan: Likely secondary to another Type II ND in the setting of acute HF secondary to fluid overload due to non-compliance with dialysis and medications, severe hypertension on presentation, tachycardia and mild LVH. Her troponin continues to rise although she does not have any typical ischemic symptoms in the setting of an echocardiogram without gross regional wall motion abnormalites. Given her very elevated risk for CAD and her repeat type II ND, she needs invasive assessment of her coronary anatomy which could be done in the outpatient setting however, knowing how non-compliant she had been in the past, I believe the best way to proceed is to get the procedure done as inpatient; to that end, I recommend the patient to be transferred to [facility] today or tomorrow morning. I discussed the plan with the patient who is in agreemnet. Of note, the patient is allergic to aspirin. Recommendations: -Continue to trend cardiac enzymes. -Increase carvedilol to 6.25 mg twice daily. -Continue with current medical management. -Transfer to [facility] today or tomorrow morning for LHC/RHC. (3) Heart failure with preserved ejection fraction Qualifiers: Heart failure chronicity: chronic Qualified Code(s): I50.32 - Chronic diastolic (congestive) heart failure Is this a current diagnosis for this admission?: Yes Plan: Secondary to medication and dialysis noncompliance. She underwent dialysis Wednesday and feels much better. She is due for dialysis on Wednesday. Recommendations: -Continue with dialysis per nephrology recommendations. -Continue with current medical therapy. -Restrict fluid intake to 1500 cc daily. -Low sodium diet, less than 1500 mg daily. (4) Hypertension Qualifiers: Is this a current diagnosis for this admission?: Yes Plan: Now at goal. Recommendations: -Continue with current management. (5) ESRD (end stage renal disease) on dialysis Plan: The patient underwent dialysis last Wednesday. Nephrology team is on board now.
[2020-04-28] MEDS: CALCIUM ACETATE 667 MG CAPSULE PO SCH ×3 (08:16→17:20)
[2020-04-28] MEDS: INSULIN LISPRO 100 UNIT/ML 3 ML VIAL SUBCUT SCH ×3 (08:17→16:28)
[2020-04-28] MEDS: PANTOPRAZOLE SODIUM 20 MG TABLET.DR PO SCH (09:41)
[2020-04-28] MEDS: NIFEDIPINE 30 MG TAB.ER.24 PO SCH ×2 (09:42→21:42)
[2020-04-28] MEDS: CARVEDILOL 3.125 MG TABLET PO SCH ×2 (09:42→21:43)
[2020-04-28] MEDS: METOLAZONE 5 MG TABLET PO SCH (09:42)
[2020-04-28] MEDS: DICYCLOMINE HCL 10 MG CAPSULE PO SCH ×3 (09:42→17:20)
[2020-04-28] MEDS: INSULIN GLARGINE,HUM.REC.ANLOG 1,000 UNIT/10 ML VIAL SUBCUT SCH ×2 (09:42→21:53)
[2020-04-28] MEDS: CLOPIDOGREL BISULFATE 75 MG TABLET PO SCH (09:42)
--- NOTE | 2020-04-28 13:45 | PDOC PROGRESS REPORT ---
Subjective Progress Note for:: 04/28/20 Subjective:: She denied any chest pain or difficulty with breathing. No nausea, vomiting, or abdominal pain. No fever or chills. Her cardiac enzymes continue to trend upward with most recent Troponin I at 5.930 but her total CK and CKMB are trending down. Patient is agreeable with consideration of transfer to [facility] for invasive cardiac vasculature assessment. Reason For Visit: ESRD(END STAGE RENAL DISEASE)ON DIALYSIS,PULMONARY Physical Exam Vital Signs: Temp Pulse Resp BP Pulse Ox 97.9 F 72 17 127/76 H 96 04/28/20 10:38 04/28/20 10:38 04/28/20 10:38 04/28/20 10:38 04/28/20 10:38 Intake & Output 04/27/20 04/28/20 04/29/20 06:59 06:59 06:59 Intake Total 924 1835 345 Output Total 5300 Balance -4376 1835 345 Weight 118.3 kg 115.8 kg Physical Exam: General appearance: PRESENT: No acute distress, morbidly obese Head exam: PRESENT: atraumatic, normocephalic Eye exam: PRESENT: conjunctiva pink. ABSENT: pallor, scleral icterus Mouth exam: PRESENT: moist Respiratory exam: PRESENT: clear to auscultation freddy Cardiovascular exam: PRESENT: RRR, +S1, +S2. ABSENT: diastolic murmur, rubs, s ystolic murmur Pulses: PRESENT: +2 pedal pulses bilateral GI/Abdominal exam: PRESENT: normal bowel sounds, soft. ABSENT: distended, guarding, mass, organomegaly, rebound, tenderness Extremities exam: PRESENT: pedal edema - trace Neurological exam: PRESENT: alert, awake, oriented to person, oriented to place, oriented to time, oriented to situation, CN II-XII grossly intact. ABSENT: motor sensory deficit Psychiatric exam: PRESENT: appropriate affect, normal mood. ABSENT: homicidal ideation, suicidal ideation Skin exam: PRESENT: dry, warm Results Laboratory Results: 04/26/20 06:45 04/26/20 06:45 04/26/20 04/26/20 04/26/20 06:45 06:45 10:19 Creatine Kinase 67 CK-MB (CK-2) 1.04 Troponin I 0.649 0.699 04/26/20 04/26/2004/26/20 17:51 17:51 23:44 Creatine Kinase 131 135 CK-MB (CK-2) 3.78 Troponin I 1.970 04/26/20 04/27/20 04/27/20 23:44 05:56 05:56 Creatine Kinase 137 H CK-MB (CK-2) 5.13 H 4.13 Troponin I 3.350 4.480 04/27/20 04/27/20 04/27/20 13:50 13:50 22:15 Creatine Kinase 115 99 CK-MB (CK-2) 3.22 Troponin I 5.260 04/27/20 04/28/20 04/28/20 22:15 06:28 06:28 Creatine Kinase 92 CK-MB (CK-2) 2.79 1.97 Troponin I 5.680 5.930 Impressions: Shoulder X-Ray 04/26/20 00:00 IMPRESSION: No evidence of acute bony injury to the shoulder. Chest X-Ray 04/26/20 06:51 IMPRESSION: Cardiomegaly and bilateral asymmetric interstitial alveolar opacities. Clinical correlation for signs and symptoms of CHF/pulmonary edema is recommended. Head CT 04/26/20 10:16 IMPRESSION: No acute intracranial abnormality. EVIDENCE OF ACUTE STROKE: NO. Assessment & Plan - Diagnosis (1) Chest pain Qualifiers: Chest pain type: unspecified Qualified Code(s): R07.9 - Chest pain, unspecified Is this a current diagnosis for this admission?: Yes (2) Elevated troponin I level Is this a current diagnosis for this admission?: Yes (3) Heart failure with preserved ejection fraction Qualifiers: Heart failure chronicity: chronic Qualified Code(s): I50.32 - Chronic diastolic (congestive) heart failure Is this a current diagnosis for this admission?: Yes (4) Essential (primary) hypertension Is this a current diagnosis for this admission?: Yes (5) Diabetes mellitus type 1 with complications Is this a current diagnosis for this admission?: Yes (6) CKD (chronic kidney disease) stage V requiring chronic dialysis Is this a current diagnosis for this admission?: Yes (7) Obesity, morbid, BMI 40.0-49.9 Is this a current diagnosis for this admission?: Yes - Time Time Spent with patient: 25-34 minutes Level of Care: IMCU Medications reviewed and adjusted accordingly: Yes Anticipated discharge: Home with Homehealth Within: Other - Inpatient Certification Based on my medical assessment, after consideration of the patient's comorbidities, presenting symptoms, or acuity I expect that the services needed warrant INPATIENT care.: Yes I certify that my determination is in accordance with my understanding of Medicare's requirements for reasonable and necessary INPATIENT services [42 CFR 412.3e].: Yes Medical Necessity: Significant Comorbidiites Make Outpatient Treatment Too Risky , Need Close Monitoring Due to Risk of Patient Decompensation, Need For Continuous Telemetry Monitoring, Risk of Complication if Not Cared For in Hospital, Risk of Diagnosis Which Will Require Inpatient Eval/Care/Monitoring Post Hospital Care: D/C Mounter Smoking Pipe Documentation - Plan Summary Plan Summary: Continue current medication management. I will coordinate possible transfer with the cardiology and Nephrology teams due to need for contrast use during cardiac catheterization and need for hemodialysis. She is schedule for dialysis tomorrow and possible transfer after dialysis to [facility]. I discussed case with Dr. Bennett, economics consultant.
[2020-04-28] MEDS: PAROXETINE HCL 20 MG TABLET PO SCH (21:43)
[2020-04-29] MEDS: OXYCODONE HCL IR 5 MG TABLET PO PRN ×3 (03:49→22:44)
[2020-04-29] MEDS: OXYCODONE-ACETAMINOPHEN 5-325 MG TABLET PO PRN ×3 (03:50→22:45)
[2020-04-29] MEDS ORDERED: NORMAL SALINE 1000 ML 1,000 ML IV PRN (05:00)
[2020-04-29 05:31] LABS: ABSOLUTE BASOPHILS # (AUTO) 0.1 10^3/uL (0.0-0.2); ABSOLUTE EOSINOPHILS # (AUTO) 0.3 10^3/uL (0.0-0.6); ABSOLUTE LYMPHOCYTES (AUTO) 2.3 10^3/uL (0.5-4.7); ABSOLUTE MONOCYTES (AUTO) 0.5 10^3/uL (0.1-1.4); ABSOLUTE NEUT (AUTO) 3.6 10^3/uL (1.7-8.2); HEMATOCRIT 33.5 % (36.0-47.0); HEMOGLOBIN 10.8 g/dL (12.0-15.5); LYMPHOCYTES % (AUTO) 33.6 % (13-45); MEAN CORPUSCULAR HEMOGLOBIN 27.6 pg (27.0-33.4); MEAN CORPUSCULAR HGB CONC 32.3 g/dL (32.0-36.0); MEAN CORPUSCULAR VOLUME 85 fl (80-97); MONOCYTES % (AUTO) 7.9 % (3-13); PLATELET COUNT 248 10^3/uL (150-450); RED BLOOD COUNT 3.92 10^6/uL (3.72-5.28); RED CELL DISTRIBUTION WIDTH 17.8 % (11.5-14.0); SEGMENTED NEUTROPHILS % (AUTO) 52.5 % (42-78); TOTAL CELLS COUNTED % (AUTO) 100 %; WHITE BLOOD COUNT 6.9 10^3/uL (4.0-10.5)
[2020-04-29 05:54] LABS: ANION GAP 17 (5-19); BLOOD UREA NITROGEN 93 mg/dL (7-20); CALCIUM 8.9 mg/dL (8.4-10.2); CARBON DIOXIDE 23 mmol/L (22-30); CHLORIDE 92 mmol/L (98-107); GLUCOSE 190 mg/dL (75-110)
[2020-04-29] MEDS: CLONIDINE HCL 0.1 MG TABLET PO SCH ×3 (06:06→22:46)
[2020-04-29] MEDS: FUROSEMIDE 80 MG TABLET PO SCH ×3 (06:06→22:46)
[2020-04-29 06:08] LABS: POTASSIUM 6.3 mmol/L (3.6-5.0)
[2020-04-29] MEDS: ALPRAZOLAM 0.5 MG TABLET PO SCH ×3 (06:17→22:46)
[2020-04-29] MEDS: CALCIUM ACETATE 667 MG CAPSULE PO SCH ×3 (07:00→17:18)
[2020-04-29] MEDS ORDERED: HYDROXYZINE PAMOATE 25 MG CAPSULE PO PRN (07:13)
[2020-04-29 08:20] LABS: CREATINE KINASE MB 1.84 ng/mL (<4.55); TROPONIN I 4.17 ng/mL
--- NOTE | 2020-04-29 10:00 | ER Document Report ---
Entered by MADHAVI ARREDONDO SCRIBE 04/26/20 0735 Acting as scribe for:ELOISA SALINAS MD ED General - General Chief Complaint: Chest Pain Stated Complaint: CHEST PAIN Information source: Patient Notes: This 34-year-old female presents to the emergency department via EMS complaining of a headache that woke her from her sleep 3 hours ago. Patient states that she woke up to 4/5 pain that "began at the top of my head, went to my jaw, down to my chest and now is in my right shoulder". Patient states that she has felt a "slight ache" in her chest prior to today's episode. Patient states that she has not had a migraine in years. Patient reports nausea, photosensitivity, neck pain, ear pain and a headache. Patient denies vomiting and sinus discharge. TRAVEL OUTSIDE OF THE [place] IN LAST 30 DAYS: No - Related Data Allergies/Adverse Reactions: aspirin [Aspirin] Allergy (Verified 03/11/20 08:31) Anaphylaxis ciprofloxacin [From Cipro] Allergy (Verified 03/11/20 08:31) Anaphylaxis clindamycin [Clindamycin] Allergy (Verified 03/11/20 08:31) hydrocodone [From Vicodin] Allergy (Verified 03/11/20 08:31) ibuprofen [From Motrin] Allergy (Verified 03/11/20 08:31) Anaphylaxis lidocaine [From Lidoderm] Allergy (Verified 03/11/20 08:31) Generalized rash tramadol HCl [From Ultram] Allergy (Verified 03/11/20 08:31) vancomycin [Vancomycin] Allergy (Verified 03/11/20 08:31) Shortness of Breath nitroglycerin [Nitroglycerin] Adverse Reaction (Intermediate, Verified 03/11/20 08:31) Joint pain Past Medical History - General Information source: Patient - Social History Smoking Status: Never Smoker Cigarette use (# per day): No Chew tobacco use (# tins/day): No Frequency of alcohol use: Rare Family History: Reviewed & Not Pertinent Patient has homicidal ideation: No - Past Medical History Cardiac Medical History: Reports: Hx Congestive Heart Failure, Hx Coronary Artery Disease, Hx Heart Attack, Hx Hypertension, Hx Heart Murmur Pulmonary Medical History: Reports: Hx Asthma, Hx Pneumonia Neurological Medical History: Reports: Hx Migraine, Hx Seizures - only r/t low calcium Endocrine Medical History: Reports: Hx Diabetes Mellitus Type 1, Hx Diabetes Mellitus Type 2 Renal/ Medical History: Reports: Hx Hemodialysis - MWF, Hx Ovarian Cysts Malignancy Medical History: GI Medical History: Reports: Hx Gastritis Musculoskeletal Medical History: Skin Medical History: Reports Hx Psoriasis Psychiatric Medical History: Reports: Hx Depression Traumatic Medical History: Infectious Medical History: Past Surgical History: Reports: Hx Appendectomy, Hx Cholecystectomy, Hx Vascular Surgery - Lt AV Fistula and graft; Rt AV fistula - Immunizations Immunizations up to date: Yes Hx Diphtheria, Pertussis, Tetanus Vaccination: Yes Hx Pneumococcal Vaccination: 08/22/11 Review of Systems - Review of Systems Constitutional: No symptoms reported EENT: See HPI. denies: Nose discharge, Sinus discharge Cardiovascular: No symptoms reported Respiratory: No symptoms reported Gastrointestinal: See HPI, Nausea. denies: Vomiting Genitourinary: No symptoms reported Female Genitourinary: No symptoms reported Musculoskeletal: See HPI, Neck pain Skin: No symptoms reported Hematologic/Lymphatic: No symptoms reported Neurological/Psychological: See HPI, Headaches -: Yes All other systems reviewed and negative Physical Exam - Vital signs Vitals: Temp 98.3 F 04/26/20 06:24 - Notes Notes: Physical Exam: General: Alert, appears well. HEENT: Normocephalic. Atraumatic. PERRL. Extraocular movements intact. Oropharynx clear. Neck: Supple. Non-tender. Respiratory: No respiratory distress. Clear and equal breath sounds bilaterally. Cardiovascular: Regular rate and rhythm. Abdominal: Obese. Non-tender. No distension. Normal Bowel Sounds. Back: No gross abnormalities. Extremities: Moves all four extremities. Upper extremities: Normal inspection. Normal ROM. Lower extremities: Normal inspection. No edema. Normal ROM. Neurological: Normal cognition. AAOx4. Normal speech. Psychological: Normal affect. Normal Mood. Skin: Warm. Dry. Normal color. Course - Vital Signs Vital signs: Temp Pulse Resp BP Pulse Ox 98.0 F 93 16 120/78 100 04/29/20 14:38 04/29/20 14:38 04/29/20 03:28 04/29/20 14:38 04/29/20 14:38 - Laboratory Result Diagrams: 04/29/20 05:14 04/29/20 05:14 Laboratory results interpreted by me: 04/26/20 04/26/20 06:45 06:45 Hgb 11.3 L Hct 34.6 L RDW 18.0 H Eos % (Auto) 7.4 H Sodium 132.5 L Potassium 5.4 H Chloride 94 L BUN 68 H Creatinine 10.05 H Est GFR ( Amer) 5 L Est GFR (MDRD) Non-Af 4 L Glucose 312 H Discharge - Discharge Clinical Impression: ESRD (end stage renal disease) on dialysis, Right-sided headache, Elevated troponin, Chest pain due to CAD Pulmonary edema Qualifiers: Chronicity: acute Qualified Code(s): J81.0 - Acute pulmonary edema Condition: Critical Admitting Provider: Areli Unit Admitted: IMCU I personally performed the services described in the documentation, reviewed and edited the documentation which was dictated to the scribe in my presence, and it accurately records my words and actions.
[2020-04-29] MEDS: NIFEDIPINE 30 MG TAB.ER.24 PO SCH ×2 (11:23→22:47)
[2020-04-29] MEDS: CLOPIDOGREL BISULFATE 75 MG TABLET PO SCH (11:24)
[2020-04-29] MEDS: METOLAZONE 5 MG TABLET PO SCH (11:24)
[2020-04-29] MEDS: PANTOPRAZOLE SODIUM 20 MG TABLET.DR PO SCH (11:24)
[2020-04-29] MEDS: INSULIN GLARGINE,HUM.REC.ANLOG 1,000 UNIT/10 ML VIAL SUBCUT SCH ×2 (11:25→22:47)
[2020-04-29] MEDS: CARVEDILOL 3.125 MG TABLET PO SCH ×2 (11:25→22:47)
[2020-04-29] MEDS: INSULIN LISPRO 100 UNIT/ML 3 ML VIAL SUBCUT SCH ×3 (12:00→17:18)
--- NOTE | 2020-04-29 12:00 | PDOC PROGRESS REPORT ---
Subjective Progress Note for:: 04/29/20 Reason For Visit: I saw Mrs. Raheem Massey on dialysis today. She is very well-known to me with history of ESRD on maintenance hemodialysis 3 times a week secondary to diabetic nephropathy, diabetes mellitus type 1, hypertension, coronary artery disease, history of acute NE in October 2019 , and an unfortunate history of severe noncompliance with diet medications and missing treatments was admitted with chest pains. She has an atypical chest pain as well as neck pains with rad iation into her arms and jaws and into the chest and she has already been evaluated by beveler, Dr. Bennett. Her troponin was elevated and has peaked at 5.9 yesterday. The patient is apparently to be transferred for possible cardiac catheterization but patient refused and did not want to be transferred. I am seeing the patient during dialysis. She is sleeping quite comfortably while undergoing dialysis as I see her. She easily awakens to oral commands. She states that the chest pain is now subsiding. She complains of headache and right shoulder pain. Currently she is very comfortable while receiving dialysis. Her blood pressure is rather lowish in the low 100 systolics during d ialysis.Labs and medications were reviewed. Dialysis orders were reviewed with the treating dialysis nurse. Physical Exam Vital Signs: Temp Pulse Resp BP Pulse Ox 97.6 F 83 16 137/59 H 94 04/29/20 11:14 04/29/20 11:14 04/29/20 03:28 04/29/20 11:14 04/29/20 11:14 Intake & Output 04/28/20 04/29/20 04/30/20 06:59 06:59 06:59 Intake Total 1835 1395 Output Total 400 Balance 1835 1395 -400 Weight 115.8 kg 122.2 kg General appearance: PRESENT: no acute distress Respiratory exam: PRESENT: clear to auscultation freddy, decreased breath sounds. ABSENT: crackles Cardiovascular exam: PRESENT: +S1, +S2 GI/Abdominal exam: PRESENT: normal bowel sounds, soft. ABSENT: organomegaly, tenderness Extremities exam: PRESENT: pedal edema Neurological exam: PRESENT: alert, awake, oriented to person, oriented to place Psychiatric exam: PRESENT: appropriate affect Skin exam: ABSENT: cyanosis, erythema, mottled Results Laboratory Results: 04/29/20 05:14 04/29/20 05:14 04/29/20 04/29/20 05:14 05:14 WBC 6.9 RBC 3.92 Hgb 10.8 L Hct 33.5 L MCV 85 MCH 27.6 MCHC 32.3 RDW 17.8 H Plt Count 248 Seg Neutrophils % 52.5 Sodium 132.1 L Potassium 6.3 H* Chloride 92 L Carbon Dioxide 23 Anion Gap 17 BUN 93 H Creatinine 13.00 H Est GFR ( Amer) 4 L Glucose 190 H Calcium 8.9 04/26/20 04/26/20 04/26/20 06:45 06:45 10:19 Creatine Kinase 67 CK-MB (CK-2) 1.04 Troponin I 0.649 0.699 04/26/20 04/26/20 04/26/20 17:51 17:51 23:44 Creatine Kinase 131 135 CK-MB (CK-2) 3.78 Troponin I 1.970 04/26/20 04/27/20 04/27/20 23:44 05:56 05:56 Creatine Kinase 137 H CK-MB (CK-2) 5.13 H 4.13 Troponin I 3.350 4.480 04/27/20 04/27/20 04/27/20 13:50 13:50 22:15 Creatine Kinase 115 99 CK-MB (CK-2) 3.22 Troponin I 5.260 04/27/20 04/28/20 04/28/20 22:15 06:28 06:28 Creatine Kinase 92 CK-MB (CK-2) 2.79 1.97 Troponin I 5.680 5.930 04/29/20 04/29/20 07:35 07:35 Creatine Kinase 71 CK-MB (CK-2) 1.84 Troponin I 4.170 Impressions: Shoulder X-Ray 04/26/20 00:00 IMPRESSION: No evidence of acute bony injury to the shoulder. Chest X-Ray 04/26/20 06:51 IMPRESSION: Cardiomegaly and bilateral asymmetric interstitial alveolar opacities. Clinical correlation for signs and symptoms of CHF/pulmonary edema is recommended. Head CT 04/26/20 10:16 IMPRESSION: No acute intracranial abnormality. EVIDENCE OF ACUTE STROKE: NO. Assessment & Plan - Diagnosis (1) Chest pain Qualifiers: Chest pain type: unspecified Qualified Code(s): R07.9 - Chest pain, unspecified Is this a current diagnosis for this admission?: Yes Plan: As per cardiology and Dr. Singleton. Patient apparently to be transferred to [facility] for cardiac catheterization given her very high rising troponin and high risk factors. Discussed this with patient. (2) ESRD on dialysis Plan: Patient currently undergoing dialysis without any issues. Vital signs are stable even though blood pressure is low 100 systolics. Dialysis being supervised to ensure safe and smooth procedure. Plan to remove it in 1-2 L as tolerated given her drop in blood pressure. Monitor for any evidences of sepsis which I do not see at the moment. Dialysis orders reviewed with the treating dialysis nurse. (3) Elevated troponin I level Is this a current diagnosis for this admission?: Yes Plan: Follow recommendations of cardiology and primary care. (4) Essential (primary) hypertension Is this a current diagnosis for this admission?: Yes Plan: Presently low 100 systolics. Monitor. (5) Heart failure with preserved ejection fraction Qualifiers: Heart failure chronicity: chronic Qualified Code(s): I50.32 - Chronic diastolic (congestive) heart failure Is this a current diagnosis for this admission?: Yes Plan: Presently do not see any evidences of decompensation. Monitor. (6) Diabetes mellitus type 1 Qualifiers: Diabetes mellitus complication status: with neurologic complications Diabetes mellitus complication detail: with polyneuropathy Qualified Code(s): E10.42 - Type 1 diabetes mellitus with diabetic polyneuropathy Is this a current diagnosis for this admission?: Yes Plan: Advised better compliance and better control. (7) Hyperkalemia Is this a current diagnosis for this admission?: Yes Plan: Unstable. Should respond to dialysis. Monitor.
[2020-04-29] MEDS: DICYCLOMINE HCL 10 MG CAPSULE PO SCH ×3 (12:06→17:18)
--- NOTE | 2020-04-29 13:32 | PDOC PROGRESS REPORT ---
Subjective Progress Note for:: 04/29/20 Subjective:: Patient was seen and examined in the dialysis. She is resting comfortably. No distress is noted. Plans are on for the patient to be transferred for cardiac authorization to [facility]. Reason For Visit: ESRD(END STAGE RENAL DISEASE)ON DIALYSIS,PULMONARY Physical Exam Vital Signs: Temp Pulse Resp BP Pulse Ox 97.6 F 83 16 137/59 H 94 04/29/20 11:14 04/29/20 11:14 04/29/20 03:28 04/29/20 11:14 04/29/20 11:14 Intake & Output 04/28/20 04/29/20 04/30/20 06:59 06:59 06:59 Intake Total 1835 1395 Output Total 400 Balance 1835 1395 -400 Weight 115.8 kg 122.2 kg General appearance: PRESENT: no acute distress, cooperative, morbidly obese Head exam: PRESENT: atraumatic, normocephalic Eye exam: PRESENT: EOMI Mouth exam: PRESENT: moist Respiratory exam: PRESENT: clear to auscultation freddy, decreased breath sounds, symmetrical Cardiovascular exam: PRESENT: RRR, +S1, +S2 GI/Abdominal exam: PRESENT: soft Rectal exam: PRESENT: deferred Skin exam: PRESENT: dry, intact Results Laboratory Results: 04/29/20 05:14 04/29/20 05:14 04/29/20 04/29/20 05:14 05:14 WBC 6.9 RBC 3.92 Hgb 10.8 L Hct 33.5 L MCV 85 MCH 27.6 MCHC 32.3 RDW 17.8 H Plt Count 248 Seg Neutrophils % 52.5 Sodium 132.1 L Potassium 6.3 H* Chloride 92 L Carbon Dioxide 23 Anion Gap 17 BUN 93 H Creatinine 13.00 H Est GFR ( Amer) 4 L Glucose 190 H Calcium 8.9 04/26/20 04/26/20 04/26/20 06:45 06:45 10:19 Creatine Kinase 67 CK-MB (CK-2) 1.04 Troponin I 0.649 0.699 04/26/20 04/26/20 04/26/20 17:51 17:51 23:44 Creatine Kinase 131 135 CK-MB (CK-2) 3.78 Troponin I 1.970 04/26/20 04/27/20 04/27/20 23:44 05:56 05:56 Creatine Kinase 137 H CK-MB (CK-2) 5.13 H 4.13 Troponin I 3.350 4.480 04/27/20 04/27/20 04/27/20 13:50 13:50 22:15 Creatine Kinase 115 99 CK-MB (CK-2) 3.22 Troponin I 5.260 04/27/20 04/28/20 04/28/20 22:15 06:28 06:28 Creatine Kinase 92 CK-MB (CK-2) 2.79 1.97 Troponin I 5.680 5.930 04/29/20 04/29/20 07:35 07:35 Creatine Kinase 71 CK-MB (CK-2) 1.84 Troponin I 4.170 EKG Comments: Transthoracic echocardiogram 04/26/2020 Left ventricular ejection fraction is preserved at 55 to 60% Poor quality study. No significant valve lesion Twelve-lead EKG 04/26/2020 Sinus rhythm, 81 bpm, first-degree AV block, left ventricular hypertrophy, borderline prolonged QTC Cardiac troponin 1.97-->5.68-->5.9-->4.17 Impressions: Shoulder X-Ray 04/26/20 00:00 IMPRESSION: No evidence of acute bony injury to the shoulder. Chest X-Ray 04/26/20 06:51 IMPRESSION: Cardiomegaly and bilateral asymmetric interstitial alveolar opacities. Clinical correlation for signs and symptoms of CHF/pulmonary edema is recommended. Head CT 04/26/20 10:16 IMPRESSION: No acute intracranial abnormality. EVIDENCE OF ACUTE STROKE: NO. Assessment & Plan - Diagnosis (1) ESRD on dialysis Is this a current diagnosis for this admission?: Yes Plan: Tolerating hemodialysis. Nephrology is following. (2) Elevated troponin I level Is this a current diagnosis for this admission?: Yes Plan: Non-ST segment elevation myocardial infarction. Presently chest pain-free Cardiac troponin has begun to decrease. Likely type II myocardial infarction although underlying obstructive coronary artery disease has to be excluded given significant risk factors. However patient is quite young Given significant elevation in troponin cardiac utilization is being considered and anticipate transfer for this. If patient develops symptoms of chest pain consider systemic heparinization. Continue clopidogrel 75 mg daily Aspirin is listed as an allergy Continue carvedilol 3.125 mg twice daily (3) Heart failure with preserved ejection fraction Qualifiers: Heart failure chronicity: chronic Qualified Code(s): I50.32 - Chronic diastolic (congestive) heart failure Is this a current diagnosis for this admission?: Yes Plan: Appears to be compensated Tolerating dialysis well (4) Essential (primary) hypertension Is this a current diagnosis for this admission?: Yes Plan: Watching blood pressure Continue clonidine Continue carvedilol Continue Procardia
--- NOTE | 2020-04-29 14:00 | CDI QUERY ---
<KATELIN HOLLEY - Last Filed: 04/29/20 14:00> CDI Query CDI Review: Dear Provider: To better reflect your patients severity of illness, morbidity, and resource utilization Please specify and document in the Progress Notes and Discharge Summary if you are monitoring / treating / evaluating any of the following conditions: Query Clinical indicators Please clarify and document in your Progress Notes as well as the Discharge Summary or transfer note if you agree with Cardiology: Type II AR in the setting of acute HF secondary to fluid overload due to non- compliance with dialysis Please clarify if the patient had an acute exacerbation of the chronic diastolic heart failure as indicated in the Cardiology note. Per Cardiology Notes: chest pain approximately 3 days ago, she describes it as an ache, stabb ing/very sharp in nature, localized to the right upper chest, sometimes feels like a pressure, with radiation to the right jaw, constantly present for 3 days and just getting worse, 2) Elevated troponin I level Is this a current diagnosis for this admission?: Yes Plan: Likely secondary to another Type II AR in the setting of acute HF secondary to fluid overload due to non-compliance with dialysis and medications, severe hypertension on presentation, tachycardia and mild LVH. (3) Heart failure with preserved ejection fraction Qualifiers: Heart failure chronicity: chronic Qualified Code(s): I50.32 - Chronic diastolic (congestive) heart failure The terms probable, suspected, likely, possible or still to be ruled out may be used if you are unable to determine the exact nature of a condition. Thank you for your consideration, Clinical Documentation Physician Advisors BALWINDER Goodwin RN, BSN RN <DALLAS DOTSON - Last Filed: 04/29/20 18:09> CDI Query Agree with Query: No - Please refer to my #3 Diagnosis. Discuss acuteness of the condition with her PCP.
[2020-04-29 15:40] LABS: CREATINE KINASE MB 1.84 ng/mL (<4.55)
[2020-04-29 15:44] LABS: TROPONIN I 3.5 ng/mL
--- NOTE | 2020-04-29 21:47 | PDOC PROGRESS REPORT ---
Subjective Progress Note for:: 04/29/20 Subjective:: Patient seen by the bedside, she had hemodialysis today, she complain of pain in the right shoulder, the troponin increased over the weekend, diagnosed with non- ST elevated CT, scheduled for or transfer anticipated the next day or 2 to [facility] Reason For Visit: ESRD(END STAGE RENAL DISEASE)ON DIALYSIS,PULMONARY Physical Exam Vital Signs: Temp Pulse Resp BP Pulse Ox 98.0 F 82 16 120/78 100 04/29/20 14:38 04/29/20 19:00 04/29/20 03:28 04/29/20 14:38 04/29/20 14:38 Intake & Output 04/28/20 04/29/20 04/30/20 06:59 06:59 06:59 Intake Total 1835 1395 470 Output Total 400 Balance 1835 1395 70 Weight 115.8 kg 122.2 kg General appearance: PRESENT: no acute distress Eye exam: PRESENT: PERRLA Respiratory exam: PRESENT: clear to auscultation freddy Cardiovascular exam: PRESENT: +S1, +S2 GI/Abdominal exam: PRESENT: soft Results Laboratory Results: 04/29/20 05:14 04/29/20 05:14 04/29/20 04/29/20 05:14 05:14 WBC 6.9 RBC 3.92 Hgb 10.8 L Hct 33.5 L MCV 85 MCH 27.6 MCHC 32.3 RDW 17.8 H Plt Count 248 Seg Neutrophils % 52.5 Sodium 132.1 L Potassium 6.3 H* Chloride 92 L Carbon Dioxide 23 Anion Gap 17 BUN 93 H Creatinine 13.00 H Est GFR ( Amer) 4 L Glucose 190 H Calcium 8.9 04/26/20 04/26/20 04/26/20 06:45 06:45 10:19 Creatine Kinase 67 CK-MB (CK-2) 1.04 Troponin I 0.649 0.699 04/26/20 04/26/20 04/26/20 17:51 17:51 23:44 Creatine Kinase 131 135 CK-MB (CK-2) 3.78 Troponin I 1.970 04/26/20 04/27/20 04/27/20 23:44 05:56 05:56 Creatine Kinase 137 H CK-MB (CK-2) 5.13 H 4.13 Troponin I 3.350 4.480 04/27/20 04/27/20 04/27/20 13:50 13:50 22:15 Creatine Kinase 115 99 CK-MB (CK-2) 3.22 Troponin I 5.260 04/27/20 04/28/20 04/28/20 22:15 06:28 06:28 Creatine Kinase 92 CK-MB (CK-2) 2.79 1.97 Troponin I 5.680 5.930 04/29/20 04/29/20 04/29/20 07:35 07:35 15:00 Creatine Kinase 71 75 CK-MB (CK-2) 1.84 Troponin I 4.170 04/29/20 15:00 Creatine Kinase CK-MB (CK-2) 1.84 Troponin I 3.500 Impressions: Shoulder X-Ray 04/26/20 00:00 IMPRESSION: No evidence of acute bony injury to the shoulder. Chest X-Ray 04/26/20 06:51 IMPRESSION: Cardiomegaly and bilateral asymmetric interstitial alveolar opacities. Clinical correlation for signs and symptoms of CHF/pulmonary edema is recommended. Head CT 04/26/20 10:16 IMPRESSION: No acute intracranial abnormality. EVIDENCE OF ACUTE STROKE: NO. Assessment & Plan - Diagnosis (1) Chest pain Qualifiers: Chest pain type: unspecified Qualified Code(s): R07.9 - Chest pain, unspecified Is this a current diagnosis for this admission?: Yes (2) Essential (primary) hypertension Is this a current diagnosis for this admission?: Yes (3) Elevated troponin I level Is this a current diagnosis for this admission?: Yes (4) Heart failure with preserved ejection fraction Qualifiers: Heart failure chronicity: chronic Qualified Code(s): I50.32 - Chronic diastolic (congestive) heart failure Is this a current diagnosis for this admission?: Yes (5) End stage renal disease Is this a current diagnosis for this admission?: Yes (6) Type 1 diabetes mellitus with unspecified complications Is this a current diagnosis for this admission?: Yes Plan: Continue treatment (7) Chronic diastolic heart failure Is this a current diagnosis for this admission?: Yes (8) Shoulder pain, right Qualifiers: Chronicity: acute Qualified Code(s): M25.511 - Pain in right shoulder Is this a current diagnosis for this admission?: Yes Plan: She is not able to elevate her right shoulder, she is tender on palpation suggesting AC disease (9) Non-ST elevated myocardial infarction Is this a current diagnosis for this admission?: Yes Plan: Patient on antiplatelet for possible transfer - Time Time Spent with patient: 25-34 minutes Level of Care: IMCU Medications reviewed and adjusted accordingly: Yes
[2020-04-29 22:31] LABS: CREATINE KINASE MB 1.66 ng/mL (<4.55)
[2020-04-29 22:38] LABS: TROPONIN I 3.59 ng/mL
[2020-04-29] MEDS: PAROXETINE HCL 20 MG TABLET PO SCH (22:46)
[2020-04-30] MEDS ORDERED: OXYCODONE-ACETAMINOPHEN 5-325 MG TABLET PO ONE (02:30)
[2020-04-30] MEDS ORDERED: OXYCODONE HCL IR 5 MG TABLET PO ONE (02:30)
[2020-04-30] MEDS ORDERED: DEXTROSE 40% GEL 15 GM TUBE ONE (05:22)
[2020-04-30] MEDS: CLONIDINE HCL 0.1 MG TABLET PO SCH ×2 (06:01→13:39)
[2020-04-30] MEDS: FUROSEMIDE 80 MG TABLET PO SCH ×2 (06:01→13:39)
[2020-04-30] MEDS: ALPRAZOLAM 0.5 MG TABLET PO SCH ×2 (06:01→13:40)
[2020-04-30] MEDS ORDERED: DEXTROSE 40% GEL 15 GM TUBE X 2 PO PRN (06:30)
[2020-04-30] MEDS ORDERED: DEXTROSE 40% GEL 15 GM TUBE PO PRN (06:30)
[2020-04-30] MEDS ORDERED: DEXTROSE 50%-WATER SYRINGE 12.5 GM/25 ML DOSE IV PRN (06:30)
[2020-04-30] MEDS ORDERED: DEXTROSE 50%-WATER SYRINGE 25 GM/50 ML DOSE IV PRN (06:30)
[2020-04-30] MEDS ORDERED: GLUCAGON,HUMAN RECOMB 1 MG INJ IM PRN (06:30)
[2020-04-30] MEDS: INSULIN LISPRO 100 UNIT/ML 3 ML VIAL SUBCUT SCH ×2 (08:32→12:09)
[2020-04-30] MEDS: CALCIUM ACETATE 667 MG CAPSULE PO SCH ×2 (09:31→12:10)
[2020-04-30] MEDS: NIFEDIPINE 30 MG TAB.ER.24 PO SCH (09:31)
[2020-04-30] MEDS: CARVEDILOL 3.125 MG TABLET PO SCH (09:31)
[2020-04-30] MEDS: PANTOPRAZOLE SODIUM 20 MG TABLET.DR PO SCH (09:31)
[2020-04-30] MEDS: INSULIN GLARGINE,HUM.REC.ANLOG 1,000 UNIT/10 ML VIAL SUBCUT SCH (09:31)
[2020-04-30] MEDS: DICYCLOMINE HCL 10 MG CAPSULE PO SCH ×2 (09:31→12:10)
[2020-04-30] MEDS: METOLAZONE 5 MG TABLET PO SCH (09:31)
[2020-04-30] MEDS: CLOPIDOGREL BISULFATE 75 MG TABLET PO SCH (09:31)
--- NOTE | 2020-04-30 11:24 | PDOC TRANSFER SUMMARY ---
General Admission Date/PCP: 04/26/20 11:43 HILAYR HERNANDEZ MD - Transfer Diagnosis (1) ESRD on dialysis Is this a current diagnosis for this admission?: Yes (2) Elevated troponin I level Is this a current diagnosis for this admission?: Yes (3) Heart failure with preserved ejection fraction Is this a current diagnosis for this admission?: Yes (4) Essential (primary) hypertension Is this a current diagnosis for this admission?: Yes - Transfer Medications Home Medications: Calcium Acetate [Phoslo 667 mg Capsule] 1,334 mg PO .BIDWITHSNACKS 09/25/19 Calcium Acetate [Phoslo 667 mg Capsule] 2,001 mg PO Q8 09/25/19 Furosemide [Lasix 80 mg Tablet] 80 mg PO Q8 09/25/19 Insulin Detemir [Levemir] 35 unit SQ BID 09/25/19 Nifedipine [Procardia XL 60 mg Tablet] 60 mg PO Q12 09/25/19 Oxycodone HCl/Acetaminophen [Percocet 7.5-325 mg Tablet] 1 each PO QIDP PRN 09/25/19 Paroxetine HCl [Paxil] 80 mg PO QPM 09/25/19 Alprazolam 1 mg PO TID 10/25/19 Metolazone 10 mg PO DAILY 10/25/19 Promethazine HCl [Phenergan 25 mg Tablet] 12.5 mg PO Q6HP PRN 10/25/19 Carvedilol [Coreg 3.125 mg Tablet] 3.125 mg PO Q12 11/29/19 Clonidine HCl [Catapres 0.1 mg Tablet] 0.1 mg PO Q8 11/29/19 Clopidogrel Bisulfate [Plavix 75 mg Tablet] 75 mg PO DAILY 11/29/19 Albuterol Sulfate [Proair HFA Inhalation Aerosol 8.5 gm MDI] 2 puff IH Q4HP PRN 03/11/20 Gabapentin Enacarbil [Horizant] 300 mg PO QPM 03/11/20 Insulin Aspart [Novolog] 12 unit SQ TID 03/11/20 Zolpidem Tartrate [Ambien] 10 mg PO HSP PRN 03/11/20 Hydroxyzine HCl [Atarax 10 mg Tablet] 25 mg PO Q6HP PRN 04/26/20 Omeprazole 20 mg PO DAILY 04/26/20 Transfer Medications: Current Medications Albuterol (Proair Hfa Inhalation Aerosol 8.5 Gm Mdi) 2 puff IH Q4HP PRN PRN Reason: FOR SHORTNESS OF BREATH Stop: 05/26/20 18:10 Alprazolam (Xanax 0.5 Mg Tablet) 1 mg PO Q8 GURPREET Stop: 05/03/20 21:59 Last Admin: 04/30/20 06:01 Dose: 1 mg Documented by: Calcium Acetate (Phoslo 667 Mg Capsule) 1,334 mg PO .BIDWITHSNACKS PRN PRN Reason: TWICE DAILY WITH SNACKS Stop: 05/26/20 18:59 Calcium Acetate (Phoslo 667 Mg Capsule) 2,001 mg PO MEALS GURPREET Stop: 05/27/20 07:59 Last Admin: 04/30/20 09:31 Dose: 2,001 mg Documented by: Carvedilol (Coreg 3.125 Mg Tablet) 3.125 mg PO Q12 GURPREET Stop: 05/26/20 21:59 Last Admin: 04/30/20 09:31 Dose: 3.125 mg Documented by: Clonidine (Catapres 0.1 Mg Tablet) 0.1 mg PO Q8 GURPREET Stop: 05/26/20 21:59 Last Admin: 04/30/20 06:01 Dose: 0.1 mg Documented by: Clopidogrel Bisulfate (Plavix 75 Mg Tablet) 75 mg PO DAILY GURPREET Stop: 05/27/20 09:59 Last Admin: 04/30/20 09:31 Dose: 75 mg Documented by: Dextrose (Dextrose Inj 50% Syringe (25 Gm/50 Ml)) 12.5 gm IV PRN PRN; Protocol PRN Reason: FOR BG 50-69 IN ALERT PATIENT Stop: 05/30/20 06:29 Dextrose (Dextrose Inj 50% Syringe (25 Gm/50 Ml)) 25 gm IV PRN PRN; Protocol Stop: 05/30/20 06:29 Dicyclomine HCl (Bentyl 10 Mg Capsule) 10 mg PO AC GURPREET Stop: 05/27/20 09:59 Last Admin: 04/30/20 09:31 Dose: 10 mg Documented by: Furosemide (Lasix 80 Mg Tablet) 80 mg PO Q8 GURPREET Stop: 05/26/20 21:59 Last Admin: 04/30/20 06:01 Dose: 80 mg Documented by: Glucagon (Glucagen Inj 1 Mg Vial) 1 mg IM PRN PRN; Protocol PRN Reason: EVALUATE FOR BG < 70 Stop: 05/30/20 06:29 Glucose (Glutose 40% Gel 15 Gm Tube) 15 gm PO PRN PRN; Protocol PRN Reason: FOR BG 50-69 IN ALERT PATIENT Stop: 05/30/20 06:29 Glucose (Glutose 40% Gel 15 Gm Tube) 30 gm PO PRN PRN; Protocol PRN Reason: FOR BG < 50 IN ALERT PATIENT Stop: 05/30/20 06:29 Hydroxyzine Pamoate (Vistaril 25 Mg Capsule) 25 mg PO Q6HP PRN PRN Reason: ITCHING Stop: 05/29/20 07:12 Insulin Glargine (Lantus Insulin 100 Unit/1 Ml 10 Ml) 35 unit SUBCUT Q12 [facility] Stop: 05/26/20 21:59 Last Admin: 04/30/20 09:31 Dose: Not Given Documented by: Insulin Human Lispro (Humalog Insulin 100 Unit/1 Ml 3 Ml Vial) 12 unit SUBCUT AC [facility] Stop: 05/27/20 07:59 Last Admin: 04/30/20 08:32 Dose: Not Given Documented by: Metolazone (Zaroxolyn 5 Mg Tablet) 10 mg PO DAILY [facility] Stop: 05/27/20 09:59 Last Admin: 04/30/20 09:31 Dose: 10 mg Documented by: Nifedipine (Procardia Xl 30 Mg Tablet) 60 mg PO Q12 [facility] Stop: 05/26/20 21:59 Last Admin: 04/30/20 09:31 Dose: 60 mg Documented by: Ondansetron HCl (Zofran Odt 4 Mg Tablet) 4 mg PO Q4HP PRN PRN Reason: FOR NAUSEA/VOMITING Stop: 05/26/20 18:02 Ondansetron HCl (Zofran Inj/Pf 4 Mg/2 Ml Sdv) 4 mg IV Q4HP PRN PRN Reason: FOR NAUSEA/VOMITING Stop: 05/27/20 04:32 Last Admin: 04/27/20 04:38 Dose: 4 mg Documented by: Oxycodone HCl (Oxy-Ir 5 Mg Tablet) 2.5 mg PO Q6HP PRN PRN Reason: FOR SEVERE PAIN Stop: 05/03/20 18:22 Last Admin: 04/29/20 22:44 Dose: 2.5 mg Documented by: Oxycodone/Acetaminophen (Percocet 5-325 Mg Tablet) 1 tab PO Q6HP PRN PRN Reason: FOR SEVERE PAIN Stop: 05/03/20 18:21 Last Admin: 04/29/20 22:45 Dose: 1 tab Documented by: Pantoprazole Sodium (Protonix [address] Tablet) 20 mg PO DAILY GURPREET Stop: 05/27/20 09:59 Last Admin: 04/30/20 09:31 Dose: 20 mg Documented by: Paroxetine HCl (Paxil 20 Mg Tablet) 80 mg PO QHS GURPREET Stop: 05/26/20 21:59 Last Admin: 04/29/20 22:46 Dose: 80 mg Documented by: Patient Own Medication (Gabapentin Enacarbil [Horizant]) 300 mg PO .QPM GURPREET Stop: 05/26/20 18:14 Promethazine HCl (Phenergan 25 Mg Tablet) 12.5 mg PO Q6HP PRN PRN Reason: FOR UNRESOLVED NAUSEA/VOMITING Stop: 05/26/20 18:02 Last Admin: 04/27/20 03:27 Dose: 12.5 mg Documented by: Zolpidem Tartrate (Ambien 5 Mg Tablet) 10 mg PO HSP PRN PRN Reason: FOR SLEEP Stop: 05/03/20 18:29 - Allergies Allergies/Adverse Reactions: aspirin [Aspirin] Allergy (Verified 03/11/20 08:31) Anaphylaxis ciprofloxacin [From Cipro] Allergy (Verified 03/11/20 08:31) Anaphylaxis clindamycin [Clindamycin] Allergy (Verified 03/11/20 08:31) hydrocodone [From Vicodin] Allergy (Verified 03/11/20 08:31) ibuprofen [From Motrin] Allergy (Verified 03/11/20 08:31) Anaphylaxis lidocaine [From Lidoderm] Allergy (Verified 03/11/20 08:31) Generalized rash tramadol HCl [From Ultram] Allergy (Verified 03/11/20 08:31) vancomycin [Vancomycin] Allergy (Verified 03/11/20 08:31) Shortness of Breath nitroglycerin [Nitroglycerin] Adverse Reaction (Intermediate, Verified 03/11/20 08:31) Joint pain - Diet/Activity Discharge Diet: Cardiac, Diabetic, Other (Comments) Hospital Course Hospital Course: Admitted with chest pain and NSTEMI. Peak troponin was 5.9 and has trended downwards. Now chest pain free. Has allergy to ASA On Clopidogrel now Continuing HD for ESRD without issues. Plan to pursue RHC and LHC given NSTEMI Physical Exam Vital Signs: Temp Pulse Resp BP Pulse Ox 97.6 F 73 17 149/79 H 97 04/30/20 08:15 04/30/20 08:15 04/30/20 08:15 04/30/20 08:15 04/30/20 08:15 Intake & Output 04/29/20 04/30/20 05/01/20 06:59 06:59 06:59 Intake Total 1395 914 Output Total 400 Balance 1395 514 Weight 122.2 kg 124.4 kg General appearance: PRESENT: no acute distress, cooperative, morbidly obese Head exam: PRESENT: atraumatic, normocephalic Eye exam: PRESENT: EOMI Respiratory exam: PRESENT: clear to auscultation freddy, decreased breath sounds, symmetrical, unlabored Cardiovascular exam: PRESENT: RRR, +S1, +S2 Pulses: PRESENT: normal radial pulses GI/Abdominal exam: PRESENT: soft Rectal exam: PRESENT: deferred Neurological exam: PRESENT: awake, oriented to person, oriented to place, orien rigo to time Skin exam: PRESENT: dry, intact Results Laboratory Results: 04/29/20 05:14 04/29/20 05:14 04/26/20 04/26/20 04/26/20 06:45 06:45 10:19 Creatine Kinase 67 CK-MB (CK-2) 1.04 Troponin I 0.649 0.699 04/26/20 04/26/20 04/26/20 17:51 17:51 23:44 Creatine Kinase 131 135 CK-MB (CK-2) 3.78 Troponin I 1.970 04/26/20 04/27/20 04/27/20 23:44 05:56 05:56 Creatine Kinase 137 H CK-MB (CK-2) 5.13 H 4.13 Troponin I 3.350 4.480 04/27/20 04/27/20 04/27/20 13:50 13:50 22:15 Creatine Kinase 115 99 CK-MB (CK-2) 3.22 Troponin I 5.260 04/27/20 04/28/20 04/28/20 22:15 06:28 06:28 Creatine Kinase 92 CK-MB (CK-2) 2.79 1.97 Troponin I 5.680 5.930 04/29/20 04/29/20 04/29/20 07:35 07:35 15:00 Creatine Kinase 71 75 CK-MB (CK-2) 1.84 Troponin I 4.170 04/29/20 04/29/20 04/29/20 15:00 21:53 21:53 Creatine Kinase 80 CK-MB (CK-2) 1.84 1.66 Troponin I 3.500 3.590 Impressions: Shoulder X-Ray 04/26/20 00:00 IMPRESSION: No evidence of acute bony injury to the shoulder. Chest X-Ray 04/26/20 06:51 IMPRESSION: Cardiomegaly and bilateral asymmetric interstitial alveolar opacities. Clinical correlation for signs and symptoms of CHF/pulmonary edema is recommended. Head CT 04/26/20 10:16 IMPRESSION: No acute intracranial abnormality. EVIDENCE OF ACUTE STROKE: NO. Plan Discharge Plan: Left and right heart catheterization
[2020-04-30 12:20] VITALS: BP 146/82
--- NOTE | 2020-04-30 12:58 | PDOC PROGRESS REPORT ---
Subjective Progress Note for:: 04/30/20 Subjective:: Patient was seen and examined in the dialysis. She is resting comfortably. No distress is noted. Plans are on for the patient to be transferred for cardiac authorization to [facility]. Reason For Visit: ESRD(END STAGE RENAL DISEASE)ON DIALYSIS,PULMONARY Physical Exam Vital Signs: Temp Pulse Resp BP Pulse Ox 97.6 F 73 17 149/79 H 97 04/30/20 08:15 04/30/20 08:15 04/30/20 08:15 04/30/20 08:15 04/30/20 08:15 Intake & Output 04/29/20 04/30/20 05/01/20 06:59 06:59 06:59 Intake Total 1395 914 Output Total 400 Balance 1395 514 Weight 122.2 kg 124.4 kg General appearance: PRESENT: no acute distress, cooperative, morbidly obese, well-developed, well-nourished Head exam: PRESENT: atraumatic, normocephalic Eye exam: PRESENT: EOMI Mouth exam: PRESENT: moist Respiratory exam: PRESENT: clear to auscultation freddy, decreased breath sounds, symmetrical, unlabored Cardiovascular exam: PRESENT: RRR, +S1, +S2 Pulses: PRESENT: normal radial pulses GI/Abdominal exam: PRESENT: soft Rectal exam: PRESENT: deferred Extremities exam: PRESENT: other - AV fistula + bruit. RUE Neurological exam: PRESENT: alert, awake, oriented to person, oriented to place, oriented to time, oriented to situation Psychiatric exam: PRESENT: appropriate affect Skin exam: PRESENT: dry, intact Results Laboratory Results: 04/29/20 05:14 04/29/20 05:14 04/26/20 04/26/20 04/26/20 06:45 06:45 10:19 Creatine Kinase 67 CK-MB (CK-2) 1.04 Troponin I 0.649 0.699 04/26/20 04/26/20 04/26/20 17:51 17:51 23:44 Creatine Kinase 131 135 CK-MB (CK-2) 3.78 Troponin I 1.970 04/26/20 04/27/20 04/27/20 23:44 05:56 05:56 Creatine Kinase 137 H CK-MB (CK-2) 5.13 H 4.13 Troponin I 3.350 4.480 04/27/20 04/27/20 04/27/20 13:50 13:50 22:15 Creatine Kinase 115 99 CK-MB (CK-2) 3.22 Troponin I 5.260 04/27/20 04/28/20 04/28/20 22:15 06:28 06:28 Creatine Kinase 92 CK-MB (CK-2) 2.79 1.97 Troponin I 5.680 5.930 04/29/20 04/29/20 04/29/20 07:35 07:35 15:00 Creatine Kinase 71 75 CK-MB (CK-2) 1.84 Troponin I 4.170 04/29/20 04/29/20 04/29/20 15:00 21:53 21:53 Creatine Kinase 80 CK-MB (CK-2) 1.84 1.66 Troponin I 3.500 3.590 Impressions: Shoulder X-Ray 04/26/20 00:00 IMPRESSION: No evidence of acute bony injury to the shoulder. Chest X-Ray 04/26/20 06:51 IMPRESSION: Cardiomegaly and bilateral asymmetric interstitial alveolar opacities. Clinical correlation for signs and symptoms of CHF/pulmonary edema is recommended. Head CT 04/26/20 10:16 IMPRESSION: No acute intracranial abnormality. EVIDENCE OF ACUTE STROKE: NO. Assessment & Plan - Diagnosis (1) ESRD on dialysis Is this a current diagnosis for this admission?: Yes Plan: Tolerating hemodialysis. Nephrology is following. Had HD yesterday-MWF (2) Elevated troponin I level Is this a current diagnosis for this admission?: Yes Plan: Non-ST segment elevation myocardial infarction. Presently chest pain-free Cardiac troponin has begun to decrease. Likely type II myocardial infarction although underlying obstructive coronary artery disease has to be excluded given significant risk factors. However patient is quite young Given significant elevation in troponin cardiac utilization is being considered and anticipate transfer for this. If patient develops symptoms of chest pain consider systemic heparinization. Continue clopidogrel 75 mg daily Aspirin is listed as an allergy Continue carvedilol 3.125 mg twice daily Discussed with Dr. Guadalupe. Anticipate transfer to [facility] as planned by Dr. Ortega for cardiac cath given NSTEMI. Discussed with Dr. Sesay and primary care physician as well. (3) Heart failure with preserved ejection fraction Qualifiers: Heart failure chronicity: chronic Qualified Code(s): I50.32 - Chronic diastolic (congestive) heart failure Is this a current diagnosis for this admission?: Yes Plan: Appears to be compensated Tolerating dialysis well (4) Essential (primary) hypertension Is this a current diagnosis for this admission?: Yes Plan: Watching blood pressure Continue clonidine Continue carvedilol Continue Procardia - Notes Notes: Discussed with Dr. Guadalupe. Anticipate transfer to [facility] as planned by Dr. Ortega for cardiac cath given NSTEMI. Discussed with Dr. Sesay and primary care physician as well. Completed tertiary transfer summary Transfer form completed and signed Dr. Guadalupe was kind to accept at [facility] Discussed with patient as well. Updated re : care plan and all questions a nswered
== END 2020-04-30 14:44 | disposition short-term general hospital (02) | DRG 280 ==
LOC: ER 06:24 → EH 11:43 → 3N 16:16
PROVIDERS: ADMIT Internal Medicine; ATTEND Internal Medicine
PROC: 5A1D70Z Performance of Urinary Filtration, Intermittent, Less than 6 Hours Per Day (ICD-10-PCS; principal; 2020-04-26)
DX: I21.A1 Myocardial infarction type 2 (principal); N18.6 End stage renal disease; I13.2 Hypertensive heart and chronic kidney disease with heart failure and with stage 5 chronic kidney disease, or end stage renal disease; E87.1 Hypo-osmolality and hyponatremia; I50.32 Chronic diastolic (congestive) heart failure; Z68.41 Body mass index [BMI] 40.0-44.9, adult; E10.22 Type 1 diabetes mellitus with diabetic chronic kidney disease; E10.21 Type 1 diabetes mellitus with diabetic nephropathy; I25.10 Atherosclerotic heart disease of native coronary artery without angina pectoris; E10.43 Type 1 diabetes mellitus with diabetic autonomic (poly)neuropathy; E10.319 Type 1 diabetes mellitus with unspecified diabetic retinopathy without macular edema; E83.51 Hypocalcemia; E87.5 Hyperkalemia; E83.39 Other disorders of phosphorus metabolism; L40.9 Psoriasis, unspecified; F32.9 Major depressive disorder, single episode, unspecified; D63.1 Anemia in chronic kidney disease; E66.01 Morbid (severe) obesity due to excess calories; M25.511 Pain in right shoulder; E10.42 Type 1 diabetes mellitus with diabetic polyneuropathy; I25.2 Old myocardial infarction; Z99.2 Dependence on renal dialysis; Z79.899 Other long term (current) drug therapy; Z79.4 Long term (current) use of insulin; Z79.02 Long term (current) use of antithrombotics/antiplatelets; Z88.6 Allergy status to analgesic agent; Z88.4 Allergy status to anesthetic agent; Z88.3 Allergy status to other anti-infective agents; Z88.8 Allergy status to other drugs, medicaments and biological substances; Z91.15 Patient's noncompliance with renal dialysis; Z91.14 Patient's other noncompliance with medication regimen
CPT/HCPCS: 36415; 70450; 71045; 80048; 80053; 82550; 82553; 82962; 84484; 85025; 93005; 93010; 93306; 96374; 96375; 96376; 99285; J1815; J2270; J2405; J3490

== ENCOUNTER 2020-05-27 10:04 | Inpatient (IN) | payer MEDICARE, MEDICAID ==
[2020-05-27 10:58] LABS: ABSOLUTE BASOPHILS # (AUTO) 0.1 10^3/uL (0.0-0.2); ABSOLUTE EOSINOPHILS # (AUTO) 0.5 10^3/uL (0.0-0.6); ABSOLUTE LYMPHOCYTES (AUTO) 1.3 10^3/uL (0.5-4.7); ABSOLUTE MONOCYTES (AUTO) 0.4 10^3/uL (0.1-1.4); ABSOLUTE NEUT (AUTO) 6.1 10^3/uL (1.7-8.2); BASOPHILS % (AUTO) 0.8 % (0-2); EOSINOPHILS % (AUTO) 5.6 % (0-6); HEMOGLOBIN 8.8 g/dL (12.0-15.5); LYMPHOCYTES % (AUTO) 15.9 % (13-45); MEAN CORPUSCULAR HEMOGLOBIN 27.5 pg (27.0-33.4); MEAN CORPUSCULAR HGB CONC 32.6 g/dL (32.0-36.0); MEAN CORPUSCULAR VOLUME 85 fl (80-97); MONOCYTES % (AUTO) 4.7 % (3-13); PLATELET COUNT 274 10^3/uL (150-450); RED BLOOD COUNT 3.19 10^6/uL (3.72-5.28); TOTAL CELLS COUNTED % (AUTO) 100 %; WHITE BLOOD COUNT 8.4 10^3/uL (4.0-10.5)
[2020-05-27 11:02] LABS: ALBUMIN 4.2 g/dL (3.5-5.0); ALKALINE PHOSPHATASE 102 U/L (38-126); ASPARTATE AMINO TRANSFERASE 19 U/L (14-36); BILIRUBIN,DIRECT 0.3 mg/dL (0.0-0.4); BILIRUBIN,TOTAL 0.5 mg/dL (0.2-1.3); BLOOD UREA NITROGEN 112 mg/dL (7-20); CALCIUM 7.4 mg/dL (8.4-10.2); GLUCOSE 162 mg/dL (75-110); POTASSIUM 4.4 mmol/L (3.6-5.0); TOTAL PROTEIN 8.2 g/dL (6.3-8.2)
[2020-05-27 11:09] LABS: CARBON DIOXIDE 19 mmol/L (22-30); CHLORIDE 97 mmol/L (98-107)
[2020-05-27 11:14] LABS: TROPONIN I 0.02 ng/mL
[2020-05-27] MEDS ORDERED: ACETAMINOPHEN 325 MG TABLET PO ONE (11:19)
--- NOTE | 2020-05-27 11:19 | ER Document Report ---
Entered by TRENT VILLAREAL SCRIBE 05/27/20 1058 Acting as scribe for:LEVI PATRICK MD ED Respiratory Problem - General Stated Complaint: DIFFICULTY BREATHING Time Seen by Provider: 05/27/20 10:21 Primary Care Provider: HILARY HERNANDEZ MD [Primary Care Provider] - Follow up as needed Mode of Arrival: Medic Information source: Patient, [facility] Records Notes: This 34 year old female patient who is a M,W,F dialysis patient presents to the emergency department today with complaints of shortness of breath. Patient states she feel poorly all weekend mentioning generalized body aches, a headache, and nausea. Patient states she vomited once prior to arrival here to day and she did not go to dialysis today. Patient was admitted here from 04/26 - 04/30 and was transferred to [facility] due to climbing troponins. They did a cardiac catheterization and noted scarr ing but there was nothing to stent. Patient denies fevers or a cough. TRAVEL OUTSIDE OF THE [place] IN LAST 30 DAYS: No - Related Data Allergies/Adverse Reactions: aspirin [Aspirin] Allergy (Verified 03/11/20 08:31) Anaphylaxis ciprofloxacin [From Cipro] Allergy (Verified 03/11/20 08:31) Anaphylaxis clindamycin [Clindamycin] Allergy (Verified 03/11/20 08:31) hydrocodone [From Vicodin] Allergy (Verified 03/11/20 08:31) ibuprofen [From Motrin] Allergy (Verified 03/11/20 08:31) Anaphylaxis lidocaine [From Lidoderm] Allergy (Verified 03/11/20 08:31) Generalized rash tramadol HCl [From Ultram] Allergy (Verified 03/11/20 08:31) vancomycin [Vancomycin] Allergy (Verified 03/11/20 08:31) Shortness of Breath nitroglycerin [Nitroglycerin] Adverse Reaction (Intermediate, Verified 03/11/20 08:31) Joint pain Home Medications: clonidine, humalog, lasix, levemir, nifedipine, carvidolol, plavix, asa, lipitor, percocet, phenergan Past Medical History - General Information source: Patient, Emergency Med Personnel, [facility] Records - Social History Smoking Status: Never Smoker Cigarette use (# per day): No Frequency of alcohol use: None Drug Abuse: None Lives with: Family Family History: Reviewed & Not Pertinent - Past Medical History Cardiac Medical History: Reports: Hx Congestive Heart Failure, Hx Coronary Artery Disease, Hx Heart Attack, Hx Hypertension, Hx Heart Murmur Pulmonary Medical History: Reports: Hx Asthma, Hx Pneumonia Neurological Medical History: Reports: Hx Migraine, Hx Seizures - only r/t low calcium Endocrine Medical History: Reports: Hx Diabetes Mellitus Type 1, Hx Diabetes Mellitus Type 2 Renal/ Medical History: Reports: Hx End Stage Renal Disease - On hemodialysis M-W-F, Hx Hemodialysis - MWF, Hx Ovarian Cysts Malignancy Medical History: GI Medical History: Reports: Hx Gastritis Musculoskeletal Medical History: Skin Medical History: Reports Hx Psoriasis Psychiatric Medical History: Reports: Hx Depression Traumatic Medical History: Infectious Medical History: Past Surgical History: Reports: Hx Appendectomy, Hx Cholecystectomy, Hx Vascular Surgery - Lt AV Fistula and graft; Rt AV fistula - Immunizations Immunizations up to date: Yes Hx Diphtheria, Pertussis, Tetanus Vaccination: Yes Hx Pneumococcal Vaccination: 08/22/11 Review of Systems - Review of Systems Constitutional: denies: Fever EENT: No symptoms reported Cardiovascular: No symptoms reported Respiratory: See HPI, Short of breath. denies: Cough Gastrointestinal: See HPI, Nausea, Vomiting Genitourinary: No symptoms reported Female Genitourinary: No symptoms reported Musculoskeletal: See HPI, Muscle pain Skin: No symptoms reported Hematologic/Lymphatic: No symptoms reported Neurological/Psychological: No symptoms reported -: Yes All other systems reviewed and negative Physical Exam - Vital signs Vitals: Temp 97.9 F 05/27/20 10:10 - Notes Notes: Physical Exam: General: Alert, appears well. HEENT: Normocephalic. Atraumatic. PERRL. Extraocular movements intact. Oropharynx clear. Neck: Supple. Non-tender. Respiratory: Saturating 100% on bi-pap. Lung mckeon are clear now. Cardiovascular: Tachycardic, regular rhythm. Abdominal: Obese. Non-tender. No distension. Normal Bowel Sounds. Back: No gross abnormalities. Extremities: Moves all four extremities. Upper extremities: Normal inspection. Normal ROM. Lower extremities: Lower extremity pitting edema bilaterally. Neurological: Normal cognition. AAOx4. Normal speech. Psychological: Normal affect. Normal Mood. Skin: Warm. Dry. Normal color. Course - Vital Signs Vital signs: Temp Pulse Resp BP Pulse Ox 97.9 F 15 152/83 H 100 07/06/20 10:10 05/27/20 11:00 05/27/20 12:01 05/27/20 12:01 - Laboratory Result Diagrams: 05/27/20 10:07 05/27/20 10:07 Laboratory results interpreted by me: 05/27/20 05/27/20 05/27/20 10:07 10:07 10:07 RBC 3.19 L Hgb 8.8 L Hct 27.0 L RDW 18.0 H Sodium 136.4 L Chloride 97 L Carbon Dioxide 19 L Anion Gap 20 H BUN 112 H Creatinine 12.78 H Est GFR ( Amer) 4 L Est GFR (MDRD) Non-Af 3 L Glucose 162 H Lactic Acid 0.6 L Calcium 7.4 L NT-Pro-B Natriuret Pep 05/27/20 10:07 RBC Hgb Hct RDW Sodium Chloride Carbon Dioxide Anion Gap BUN Creatinine Est GFR ( Amer) Est GFR (MDRD) Non-Af Glucose Lactic Acid Calcium NT-Pro-B Natriuret Pep 77574 H - Diagnostic Test Radiology reviewed: Image reviewed, Reports reviewed - Chest x-ray shows cardiomegaly with pulmonary edema - EKG Interpretation by Me EKG shows normal: Sinus rhythm, Gurley, QRS Complexes, ST-T Waves. abnormal: Intervals - Prolonged QT interval Rate: Normal - 84 Heart block present: 1st Degree When compared to previous EKG there are: No significant change - Consults Dr. Kwon Time consulted: 12:23 Consulted provider: other - States the patient will need to go to the ICU for dialysis, and then disposition will be determined after she dialyzes. He requests that I get her primary care provider to admit her. Dr. Hernandez Time consulted: 13:15 Consulted provider: will see as inpatient Discharge - Discharge Clinical Impression: ESRD (end stage renal disease) on dialysis, Hypocalcemia Pulmonary edema Qualifiers: Chronicity: acute Qualified Code(s): J81.0 - Acute pulmonary edema Anemia Qualifiers: Anemia type: unspecified type Qualified Code(s): D64.9 - Anemia, unspecified Condition: Fair Disposition: ADMITTED OBSERVATION Admitting Provider: Areli Unit Admitted: ICU Referrals: HILARY HERNANDEZ MD [Primary Care Provider] - Follow up as needed I personally performed the services described in the documentation, reviewed and edited the documentation which was dictated to the scribe in my presence, and it accurately records my words and actions.
--- NOTE | 2020-05-27 11:25 | RADIOLOGY REPORT (SQ) ---
EXAM DESCRIPTION: CHEST SINGLE VIEW IMAGES COMPLETED DATE/TIME: 05/27/2020 11:13 am REASON FOR STUDY: sob COMPARISON: 04/26/2020 EXAM PARAMETERS: NUMBER OF VIEWS: One view. TECHNIQUE: Single frontal radiographic view of the chest acquired. RADIATION DOSE: NA LIMITATIONS: None. FINDINGS: LUNGS AND PLEURA: Bilateral interstitial alveolar opacities. No large effusion. No pneum othorax. MEDIASTINUM AND HILAR STRUCTURES: No discrete mass. HEART AND VASCULAR STRUCTURES: Enlarged, stable. Central vascular congestion. BONES: No acute findings. HARDWARE: Vascular stents overlie right subclavian and axillary veins. OTHER: No other significant finding. IMPRESSION: Cardiomegaly with interstitial and alveolar opacities, likely edema. No large effusion. TECHNICAL DOCUMENTATION: JOB ID: [id number] 2010 [employer]- All Rights Reserved Reading location - IP/workstation name: [email or web address]
[2020-05-27 12:46] LABS: ANION GAP 20 (5-19)
--- NOTE | 2020-05-27 13:10 | EKG REPORT ---
SEVERITY:- ABNORMAL ECG - SINUS RHYTHM FIRST DEGREE AV BLOCK PROLONGED QT INTERVAL NONSPECIFIC ST-T CHANGES LATERAL LEADS. : Confirmed by: Ciro Beckford MD 27-May-2020 13:09:30
[2020-05-27] MEDS ORDERED: EPOETIN ALFA-EPBX 2,000 UNIT, EPOETIN ALFA-EPBX 3,000 UNIT, EPOETIN ALFA-EPBX 20,000 UN... IV PRN ×4 (13:52)
[2020-05-27] MEDS ORDERED: ONDANSETRON HCL INJ/PF 4 MG/2 ML SDV IV ONE (13:54)
--- NOTE | 2020-05-27 17:38 | PDOC CONSULTATION ---
Consultation Consult Date: 05/27/20 Provider Consulted: Lazarus OLIVARES Consult reason:: Acute CHF for urgent HD. History of Present Illness Admission Date/PCP: 05/27/20 13:32 HILARY HERNANDEZ MD History of Present Illness: ERICH GOODMAN is a 34 year old female with a past medical history of ESRD on hemodialysis in the background of type 1 diabetes mellitus, hypertension, noncompliance was admitted with history of progressive shortness of breath. Her last dialysis was Wednesday and she is due for dialysis today. She denies any history of coughing spells fever or chills. She was recently admitted in early April with chest pain and shortness of breath and was found to have elevated troponin levels and as per recommendations of Dr. Isacc Chen/cardiology was transferred for a right and left heart catheterization for ruling out CAD. Not privy to those results but patient says the cath was negative.Echocardiogram done at that time had shown preserved LV function. Currently patient has been admitted to the ICU where she is being dialyzed urgently, given that the patient is on BiPAP. She feels little bit better with fluid extraction. Labs and medications were reviewed. Dialysis orders were reviewed with the treating dialysis nurse. Past Medical History Cardiac Medical History: Reports: Coronary Artery Disease, Heart Murmur, Hypertension-primary, Myocardial Infarction Pulmonary Medical History: Reports: Asthma, Pneumonia Neurological Medical History: Reports: Migraine, Seizures - only r/t low calcium Endocrine Medical History: Reports: Diabetes Mellitus Type 1 Complications of Diabetes: Reports: Autonomic Neuropathy, Nephropathy, Re tinopathy Renal/ Medical History: Reports: End Stage Renal Disease - On hemodialysis M-W-, Hypocalcemia, Hyperkalemia, Hyperphosphatemia, Renal Osteodystropy Malignancy Medical History: GI Medical History: Musculoskeltal Medical History: Skin Medical History: Reports: Psoriasis Psychiatric Medical History: Reports: Depression Infectious Medical History: Hematology Medical History: Reports Anemia of Chronic Kidney Disease Past Surgical History Past Surgical History: Reports: Appendectomy, Cholecystectomy, Dialysis Access Surgery AVF, Vascular Surgery - Lt AV Fistula and graft; Rt AV fistula Social History Lives with: Family Smoking Status: Never Smoker Frequency of Alcohol Use: Occasional Hx Recreational Drug Use: No Drugs: None Hx Prescription Drug Abuse: No Family History Parental Family History Reviewed: Yes - Negative for ESRD Children Family History Reviewed: No Sibling(s) Family History Reviewed.: No Medication/Allergy Home Medications: Calcium Acetate [Phoslo 667 mg Capsule] 1,334 mg PO .BIDWITHSNACKS 09/25/19 Calcium Acetate [Phoslo 667 mg Capsule] 2,001 mg PO Q8 09/25/19 Furosemide [Lasix 80 mg Tablet] 80 mg PO Q8 09/25/19 Insulin Detemir [Levemir] 35 unit SQ BID 09/25/19 Nifedipine [Procardia XL 60 mg Tablet] 60 mg PO Q12 09/25/19 Oxycodone HCl/Acetaminophen [Percocet 7.5-325 mg Tablet] 1 each PO QIDP PRN 09/25/19 Alprazolam 1 mg PO TIDP PRN 10/25/19 Metolazone 10 mg PO DAILY 10/25/19 Promethazine HCl [Phenergan 25 mg Tablet] 25 mg PO Q6HP PRN 10/25/19 Clonidine HCl [Catapres 0.1 mg Tablet] 0.1 mg PO Q8 11/29/19 Clopidogrel Bisulfate [Plavix 75 mg Tablet] 75 mg PO DAILY 11/29/19 Gabapentin Enacarbil [Horizant] 300 mg PO QPM 03/11/20 Insulin Aspart [Novolog] 12 unit SQ MEALS 03/11/20 Zolpidem Tartrate [Ambien] 10 mg PO HSP PRN 03/11/20 Omeprazole 20 mg PO DAILY 04/26/20 Atorvastatin Calcium [Lipitor 80 mg Tablet] 80 mg PO QHS 05/27/20 Oxcarbazepine 300 mg PO Q12 05/27/20 Allergies/Adverse Reactions: aspirin [Aspirin] Allergy (Verified 03/11/20 08:31) Anaphylaxis ciprofloxacin [From Cipro] Allergy (Verified 03/11/20 08:31) Anaphylaxis clindamycin [Clindamycin] Allergy (Verified 03/11/20 08:31) hydrocodone [From Vicodin] Allergy (Verified 03/11/20 08:31) ibuprofen [From Motrin] Allergy (Verified 03/11/20 08:31) Anaphylaxis lidocaine [From Lidoderm] Allergy (Verified 03/11/20 08:31) Generalized rash tramadol HCl [From Ultram] Allergy (Verified 03/11/20 08:31) vancomycin [Vancomycin] Allergy (Verified 03/11/20 08:31) Shortness of Breath nitroglycerin [Nitroglycerin] Adverse Reaction (Intermediate, Verified 03/11/20 08:31) Joint pain Review of Systems Constitutional: PRESENT: anorexia, fatigue, weakness. ABSENT: fever(s), headache(s), night sweats Nose, Mouth, and Throat: ABSENT: mouth pain, sore throat Cardiovascular: PRESENT: dyspnea on exertion, edema. ABSENT: orthropnea Physical Exam Vital Signs: Temp Pulse Resp BP Pulse Ox 97.9 F 25 H 166/79 H 100 05/27/20 10:10 05/27/20 17:26 05/27/20 17:26 05/27/20 17:26 Intake & Output 05/26/20 05/27/20 05/28/20 06:59 06:59 06:59 Weight 122.5 kg General appearance: PRESENT: mild distress, morbidly obese Eye exam: PRESENT: EOMI, PERRLA. ABSENT: scleral icterus Ear exam: PRESENT: normal external ear exam Neck exam: ABSENT: lymphadenopathy, meningismus, tenderness, thyromegaly, tracheal deviation Respiratory exam: PRESENT: clear to auscultation freddy, crackles, decreased breath sounds, rhonchi Cardiovascular exam: PRESENT: +S1, +S2 GI/Abdominal exam: PRESENT: normal bowel sounds, soft. ABSENT: organomegaly, tenderness Extremities exam: PRESENT: pedal edema Neurological exam: PRESENT: alert, awake, oriented to person, oriented to place Skin exam: ABSENT: erythema, mottled, rash Results Laboratory Results: 05/27/20 10:07 05/27/20 10:07 05/27/20 05/27/20 05/27/20 10:07 10:07 10:07 WBC 8.4 RBC 3.19 L Hgb 8.8 L Hct 27.0 L MCV 85 MCH 27.5 MCHC 32.6 RDW 18.0 H Plt Count 274 Seg Neutrophils % 73.0 Sodium 136.4 L Potassium 4.4 Chloride 97 L Carbon Dioxide 19 L Anion Gap 20 H BUN 112 H Creatinine 12.78 H Est GFR ( Amer) 4 L Glucose 162 H Lactic Acid 0.6 L Calcium 7.4 L Total Bilirubin 0.5 AST 19 Alkaline Phosphatase 102 Total Protein 8.2 Albumin 4.2 05/27/20 05/27/20 10:07 10:07 Creatine Kinase 104 Troponin I 0.020 NT-Pro-B Natriuret Pep [id number] H Impressions: Chest X-Ray 05/27/20 10:39 IMPRESSION: Cardiomegaly with interstitial and alveolar opacities, likely edema. No large effusion. Assessment & Plan - Diagnosis (1) Acute diastolic (congestive) heart failure Plan: Clinically and radiologically she is in heart failure. Patient is on BiPAP. She is in respiratory failure. See response to ultrafiltration on hemodialysis that is being carried out urgently. (2) ESRD on dialysis Plan: Currently undergoing urgent dialysis given the fact that she is in diastolic congestive heart failure rather acute. See response to dialysis. Apparently s he had a recent cardiac catheterization and we should get a copy of those results. Patient has history of noncompliance with diet fluid and medications unfortunately. We will plan to remove between 4-5 L of fluid as tolerated. Dialysis orders were reviewed with the treating dialysis nurse. Dialysis being supervised. (3) Hypocalcemia Plan: Patient is on a 2.5 calcium bath. Repeat ionized calcium in the morning and see if she needs to be on IV replacements but will order p.o. replacements which she has had a history of not complying with. (4) Acute hypoxemic respiratory failure Plan: In the face of acute diastolic heart failure. See response to urgent dialysis. (5) Diabetes mellitus type 1 with complications Plan: Advised tight control. (6) Essential (primary) hypertension Plan: Fairly well controlled. Monitor. (7) Anemia Qualifiers: Anemia type: unspecified type Qualified Code(s): D64.9 - Anemia, unspecified Plan: Adjust erythropoietin.
[2020-05-27] MEDS ORDERED: DEXTROSE 50%-WATER SYRINGE 25 GM/50 ML DOSE IV PRN (19:30)
[2020-05-27] MEDS ORDERED: DEXTROSE 40% GEL 15 GM TUBE PO PRN (19:30)
[2020-05-27] MEDS ORDERED: DEXTROSE 50%-WATER SYRINGE 12.5 GM/25 ML DOSE IV PRN (19:30)
[2020-05-27] MEDS ORDERED: DEXTROSE 40% GEL 15 GM TUBE X 2 PO PRN (19:30)
[2020-05-27] MEDS ORDERED: GLUCAGON,HUMAN RECOMB 1 MG INJ IM PRN (19:30)
[2020-05-27] MEDS ORDERED: (PENDING PHARMACY ID) (Oxycodone Hcl/Acetaminophen [Percocet 7.5-325 Mg Tablet] 1 EACH) PO PRN (19:33)
[2020-05-27] MEDS ORDERED: (PENDING PHARMACY ID) (Alprazolam [Alprazolam] 1 MG) PO PRN (19:33)
[2020-05-27] MEDS ORDERED: (PENDING PHARMACY ID) (Zolpidem Tartrate [Ambien] 10 MG) PO PRN (19:33)
[2020-05-27] MEDS ORDERED: ALPRAZOLAM 0.5 MG TABLET PO PRN (19:36)
[2020-05-27] MEDS ORDERED: ZOLPIDEM TARTRATE 5 MG TABLET PO PRN (19:39)
[2020-05-27] MEDS ORDERED: CALCIUM ACETATE 667 MG CAPSULE PO SCH (19:45)
--- NOTE | 2020-05-27 20:43 | PDOC H&P ---
History of Present Illness Admission Date/PCP: 05/27/20 19:00 HILARY HERNANDEZ MD History of Present Illness: ERICH GOODMAN is a 34 year old female, She has a history of end-stage renal di sease on hemodialysis, she has type 1 diabetes mellitus, hypertension, she was recently transfer to [facility] she underwent cardiac catheterization she said it was normal, I do not have the results of the procedure, she presented in her usual fashion of pulmonary edema, She required emergent hemodialysis Past Medical History Cardiac Medical History: Reports: Coronary Artery Disease, Myocardial Infarction, Hypertension, Heart Murmur, Other - Chronic diastolic heart failure Pulmonary Medical History: Reports: Asthma, Pneumonia Neurological Medical History: Reports: Migraine, Seizures - only r/t low calcium Endocrine Medical History: Reports: Diabetes Mellitus Type 1 Renal/ Medical History: Reports: End Stage Renal Disease - On hemodialysis M-W-F Malignancy Medical History: GI Medical History: Musculoskeltal Medical History: Skin Medical History: Reports: Psoriasis Psychiatric Medical History: Reports: Depression Hematology: Reports: Anemia Infectious Medical History: Past Surgical History Past Surgical History: Reports: Appendectomy, Cholecystectomy, Vascular Surgery - Lt AV Fistula and graft; Rt AV fistula Social History Lives with: Family Smoking Status: Never Smoker Frequency of Alcohol Use: Occasional Hx Recreational Drug Use: No Drugs: None Hx Prescription Drug Abuse: No Family History Family History: Reviewed & Not Pertinent Parental Family History Reviewed: Yes Children Family History Reviewed: Yes Sibling(s) Family History Reviewed.: Yes Medication/Allergy Home Medications: Calcium Acetate [Phoslo 667 mg Capsule] 1,334 mg PO .BIDWITHSNACKS 09/25/19 Calcium Acetate [Phoslo 667 mg Capsule] 2,001 mg PO Q8 09/25/19 Furosemide [Lasix 80 mg Tablet] 80 mg PO Q8 09/25/19 Insulin Detemir [Levemir] 35 unit SQ BID 09/25/19 Nifedipine [Procardia XL 60 mg Tablet] 60 mg PO Q12 09/25/19 Oxycodone HCl/Acetaminophen [Percocet 7.5-325 mg Tablet] 1 each PO QIDP PRN 09/25/19 Alprazolam 1 mg PO TIDP PRN 10/25/19 Metolazone 10 mg PO DAILY 10/25/19 Promethazine HCl [Phenergan 25 mg Tablet] 25 mg PO Q6HP PRN 10/25/19 Clonidine HCl [Catapres 0.1 mg Tablet] 0.1 mg PO Q8 11/29/19 Clopidogrel Bisulfate [Plavix 75 mg Tablet] 75 mg PO DAILY 11/29/19 Gabapentin Enacarbil [Horizant] 300 mg PO QPM 03/11/20 Insulin Aspart [Novolog] 12 unit SQ MEALS 03/11/20 Zolpidem Tartrate [Ambien] 10 mg PO HSP PRN 03/11/20 Omeprazole 20 mg PO DAILY 04/26/20 Atorvastatin Calcium [Lipitor 80 mg Tablet] 80 mg PO QHS 05/27/20 Oxcarbazepine 300 mg PO Q12 05/27/20 Allergies/Adverse Reactions: aspirin [Aspirin] Allergy (Verified 03/11/20 08:31) Anaphylaxis ciprofloxacin [From Cipro] Allergy (Verified 03/11/20 08:31) Anaphylaxis clindamycin [Clindamycin] Allergy (Verified 03/11/20 08:31) hydrocodone [From Vicodin] Allergy (Verified 03/11/20 08:31) ibuprofen [From Motrin] Allergy (Verified 03/11/20 08:31) Anaphylaxis lidocaine [From Lidoderm] Allergy (Verified 03/11/20 08:31) Generalized rash tramadol HCl [From Ultram] Allergy (Verified 03/11/20 08:31) vancomycin [Vancomycin] Allergy (Verified 03/11/20 08:31) Shortness of Breath nitroglycerin [Nitroglycerin] Adverse Reaction (Intermediate, Verified 03/11/20 08:31) Joint pain Review of Systems Constitutional: PRESENT: chills Eyes: ABSENT: visual disturbances Ears: ABSENT: hearing changes Cardiovascular: PRESENT: edema Respiratory: PRESENT: dyspnea. ABSENT: cough, hemoptysis Gastrointestinal: ABSENT: abdominal pain, constipation, diarrhea, hematemesis, hematochezia, nausea, vomiting Genitourinary: ABSENT: dysuria, hematuria Musculoskeletal: ABSENT: joint swelling Integumentary: ABSENT: rash, wounds Neurological: ABSENT: abnormal gait, abnormal speech, confusion, dizziness, focal weakness, syncope Psychiatric: ABSENT: anxiety, depression, homidical ideation, suicidal ideation Endocrine: ABSENT: cold intolerance, heat intolerance, menstrual abnormalities, polydipsia, polyuria Hematologic/Lymphatic: ABSENT: easy bleeding, easy bruising, lymphadenopathy Physical Exam Vital Signs: Temp Pulse Resp BP Pulse Ox 98.0 F 88 22 H 143/79 H 100 05/27/20 18:59 05/27/20 18:59 05/27/20 18:59 05/27/20 18:59 05/27/20 18:59 Intake & Output 05/26/20 05/27/20 05/28/20 06:59 06:59 06:59 Output Total 4200 Balance -4200 Weight 122.5 kg General appearance: PRESENT: morbidly obese Head exam: PRESENT: atraumatic, normocephalic Eye exam: PRESENT: PERRLA Ear exam: PRESENT: normal external ear exam Mouth exam: PRESENT: moist, tongue midline Neck exam: PRESENT: full ROM Respiratory exam: PRESENT: clear to auscultation freddy Cardiovascular exam: PRESENT: RRR, +S1, +S2 Pulses: PRESENT: normal dorsalis pedis pul, +2 pedal pulses bilateral Vascular exam: PRESENT: normal capillary refill GI/Abdominal exam: PRESENT: normal bowel sounds, soft Rectal exam: PRESENT: deferred Neurological exam: PRESENT: alert, CN II-XII grossly intact Psychiatric exam: PRESENT: appropriate affect, normal mood Skin exam: PRESENT: dry, intact, warm Results Laboratory Results: 05/27/20 10:07 05/27/20 10:07 05/27/20 05/27/20 05/27/20 10:07 10:07 10:07 WBC 8.4 RBC 3.19 L Hgb 8.8 L Hct 27.0 L MCV 85 MCH 27.5 MCHC 32.6 RDW 18.0 H Plt Count 274 Seg Neutrophils % 73.0 Sodium 136.4 L Potassium 4.4 Chloride 97 L Carbon Dioxide 19 L Anion Gap 20 H BUN 112 H Creatinine 12.78 H Est GFR ( Amer) 4 L Glucose 162 H Lactic Acid 0.6 L Calcium 7.4 L Total Bilirubin 0.5 AST 19 Alkaline Phosphatase 102 Total Protein 8.2 Albumin 4.2 05/27/20 05/27/20 10:07 10:07 Creatine Kinase 104 Troponin I 0.020 NT-Pro-B Natriuret Pep [id number] H Impressions: Chest X-Ray 05/27/20 10:39 IMPRESSION: Cardiomegaly with interstitial and alveolar opacities, likely edema. No large effusion. Assessment & Plan - Diagnosis (1) Acute pulmonary edema Is this a current diagnosis for this admission?: Yes Plan: Patient with acute pulmonary edema, she required emergent hemodialysis (2) Acute diastolic (congestive) heart failure Is this a current diagnosis for this admission?: Yes (3) ESRD on dialysis Is this a current diagnosis for this admission?: Yes (4) Type 1 diabetes mellitus with complication Is this a current diagnosis for this admission?: Yes
[2020-05-27] MEDS: NIFEDIPINE 30 MG TAB.ER.24 PO SCH (21:39)
[2020-05-27] MEDS: CALCIUM ACETATE 667 MG CAPSULE PO SCH (21:40)
[2020-05-27] MEDS: FUROSEMIDE 80 MG TABLET PO SCH (21:43)
[2020-05-27] MEDS: OXCARBAZEPINE 150 MG TABLET PO SCH (21:43)
[2020-05-27] MEDS: CALCIUM CARBONATE 500 MG TAB.CHEW PO SCH (21:44)
[2020-05-27] MEDS: CLONIDINE HCL 0.1 MG TABLET PO SCH (21:44)
[2020-05-27] MEDS: ATORVASTATIN CALCIUM 80 MG TABLET PO SCH (21:44)
[2020-05-27] MEDS ORDERED: (PENDING PHARMACY ID) (Nifedipine [Procardia Xl 60 Mg Tablet] 60 MG) PO SCH (22:00)
[2020-05-27] MEDS ORDERED: (PENDING PHARMACY ID) (Oxcarbazepine [Oxcarbazepine] 300 MG) PO SCH (22:00)
[2020-05-27] MEDS: INSULIN LISPRO 100 UNIT/ML 3 ML VIAL SUBCUT SCH (22:52)
[2020-05-28] MEDS: CLONIDINE HCL 0.1 MG TABLET PO SCH ×3 (05:55→22:10)
[2020-05-28] MEDS: FUROSEMIDE 80 MG TABLET PO SCH ×3 (05:55→22:12)
[2020-05-28] MEDS: CALCIUM ACETATE 667 MG CAPSULE PO SCH ×3 (05:55→22:12)
[2020-05-28 06:25] LABS: ANION GAP 14 (5-19); CALCIUM 8.3 mg/dL (8.4-10.2); CARBON DIOXIDE 26 mmol/L (22-30); CHLORIDE 96 mmol/L (98-107); GLUCOSE 210 mg/dL (75-110); POTASSIUM 4.3 mmol/L (3.6-5.0)
[2020-05-28 06:26] LABS: BLOOD UREA NITROGEN 74 mg/dL (7-20)
[2020-05-28] MEDS: INSULIN LISPRO 100 UNIT/ML 3 ML VIAL SUBCUT SCH ×4 (07:39→22:13)
[2020-05-28] MEDS: NIFEDIPINE 30 MG TAB.ER.24 PO SCH ×2 (09:17→22:12)
[2020-05-28] MEDS: PANTOPRAZOLE SODIUM 20 MG TABLET.DR PO SCH (09:17)
[2020-05-28] MEDS: GABAPENTIN 100 MG CAPSULE PO SCH ×3 (09:27→22:19)
[2020-05-28] MEDS ORDERED: METOLAZONE 10 MG PO SCH (10:00)
[2020-05-28] MEDS ORDERED: CLOPIDOGREL BISULFATE 75 MG TABLET PO SCH (10:00)
[2020-05-28] MEDS ORDERED: METOLAZONE 5 MG TABLET PO SCH (10:00)
[2020-05-28] MEDS: OXCARBAZEPINE 150 MG TABLET PO SCH ×2 (10:40→22:13)
[2020-05-28] MEDS: OXYCODONE HCL IR 5 MG TABLET PO PRN ×2 (12:49→20:15)
[2020-05-28] MEDS: PROMETHAZINE HCL 25 MG TABLET PO PRN ×2 (12:49→20:16)
[2020-05-28] MEDS: OXYCODONE-ACETAMINOPHEN 5-325 MG TABLET PO PRN ×2 (12:50→20:18)
[2020-05-28] MEDS ORDERED: BISACODYL 5 MG TABEC PO ONE (17:15)
[2020-05-28] MEDS ORDERED: (PENDING PHARMACY ID) (Gabapentin Enacarbil [Horizant] 300 MG) PO SCH (18:00)
--- NOTE | 2020-05-28 19:38 | PDOC PROGRESS REPORT ---
Subjective Progress Note for:: 05/28/20 Subjective:: Patient seen by the bedside she is requiring oxygen Reason For Visit: RESPIRATORY DISTRESS, ESRD ON DIALYSIS Physical Exam Vital Signs: Temp Pulse Resp BP Pulse Ox 97.8 F 78 16 130/74 H 93 05/28/20 16:02 05/28/20 16:02 05/28/20 16:02 05/28/20 16:02 05/28/20 16:02 Intake & Output 05/27/20 05/28/20 05/29/20 06:59 06:59 06:59 Intake Total 740 960 Output Total 4200 Balance -3460 960 Weight 109.6 kg General appearance: PRESENT: no acute distress Eye exam: PRESENT: PERRLA Respiratory exam: PRESENT: clear to auscultation freddy Cardiovascular exam: PRESENT: +S1, +S2 GI/Abdominal exam: PRESENT: soft Neurological exam: PRESENT: alert Results Laboratory Results: 05/27/20 10:07 05/28/20 05:36 05/28/20 05/28/20 05:36 05:36 Sodium 135.9 L Potassium 4.3 Chloride 96 L Carbon Dioxide 26 Anion Gap 14 BUN 74 H D Creatinine 9.84 H Est GFR ( Amer) 6 L Glucose 210 H Calcium 8.3 L Ionized Calcium New 1.00 L 05/27/20 05/27/20 10:07 10:07 Creatine Kinase 104 Troponin I 0.020 NT-Pro-B Natriuret Pep [id number] H Impressions: Chest X-Ray 05/27/20 10:39 IMPRESSION: Cardiomegaly with interstitial and alveolar opacities, likely edema. No large effusion. Assessment & Plan - Diagnosis (1) Acute pulmonary edema Is this a current diagnosis for this admission?: Yes (2) Acute diastolic (congestive) heart failure Is this a current diagnosis for this admission?: Yes (3) ESRD on dialysis Is this a current diagnosis for this admission?: Yes (4) Type 1 diabetes mellitus with complication Is this a current diagnosis for this admission?: Yes Plan: continue treatment - Time Time Spent with patient: 25-34 minutes Level of Care: MEDICAL
[2020-05-28] MEDS: ATORVASTATIN CALCIUM 80 MG TABLET PO SCH (22:10)
[2020-05-28] MEDS: CALCIUM CARBONATE 500 MG TAB.CHEW PO SCH (22:10)
[2020-05-28] MEDS: CLOPIDOGREL BISULFATE 75 MG TABLET PO SCH (22:12)
[2020-05-28] MEDS: METOLAZONE 5 MG TABLET PO SCH (22:12)
[2020-05-28] MEDS: INSULIN GLARGINE,HUM.REC.ANLOG 1,000 UNIT/10 ML VIAL SUBCUT SCH (22:13)
[2020-05-29] MEDS ORDERED: EPOETIN ALFA-EPBX 20,000 UNIT in SYRINGE, DISPOSABLE, 1 EACH IV PRN (05:00)
[2020-05-29] MEDS: CALCIUM ACETATE 667 MG CAPSULE PO SCH ×3 (05:29→22:58)
[2020-05-29 05:52] LABS: HEMATOCRIT 26.6 % (36.0-47.0); HEMOGLOBIN 8.7 g/dL (12.0-15.5); MEAN CORPUSCULAR HEMOGLOBIN 27.7 pg (27.0-33.4); MEAN CORPUSCULAR HGB CONC 32.9 g/dL (32.0-36.0); MEAN CORPUSCULAR VOLUME 84 fl (80-97); PLATELET COUNT 254 10^3/uL (150-450); RED BLOOD COUNT 3.16 10^6/uL (3.72-5.28); RED CELL DISTRIBUTION WIDTH 17.5 % (11.5-14.0); WHITE BLOOD COUNT 6.5 10^3/uL (4.0-10.5)
[2020-05-29] MEDS: GABAPENTIN 100 MG CAPSULE PO SCH ×3 (06:00→22:57)
[2020-05-29] MEDS: CLONIDINE HCL 0.1 MG TABLET PO SCH ×3 (06:00→22:55)
[2020-05-29] MEDS: FUROSEMIDE 80 MG TABLET PO SCH ×3 (06:00→22:56)
[2020-05-29 06:04] LABS: ANION GAP 17 (5-19); BLOOD UREA NITROGEN 86 mg/dL (7-20); CARBON DIOXIDE 25 mmol/L (22-30); CHLORIDE 93 mmol/L (98-107); GLUCOSE 179 mg/dL (75-110); POTASSIUM 4.4 mmol/L (3.6-5.0)
[2020-05-29] MEDS: OXYCODONE-ACETAMINOPHEN 5-325 MG TABLET PO PRN (06:14)
[2020-05-29] MEDS: PROMETHAZINE HCL 25 MG TABLET PO PRN (06:15)
[2020-05-29] MEDS: OXYCODONE HCL IR 5 MG TABLET PO PRN (06:15)
[2020-05-29] MEDS: INSULIN LISPRO 100 UNIT/ML 3 ML VIAL SUBCUT SCH ×4 (07:46→22:52)
[2020-05-29] MEDS: OXCARBAZEPINE 150 MG TABLET PO SCH ×2 (11:59→22:53)
[2020-05-29] MEDS: INSULIN GLARGINE,HUM.REC.ANLOG 1,000 UNIT/10 ML VIAL SUBCUT SCH ×2 (12:00→22:51)
[2020-05-29] MEDS: PANTOPRAZOLE SODIUM 20 MG TABLET.DR PO SCH (12:00)
[2020-05-29] MEDS: NIFEDIPINE 30 MG TAB.ER.24 PO SCH ×2 (12:00→22:55)
--- NOTE | 2020-05-29 16:24 | PDOC PROGRESS REPORT ---
Subjective Progress Note for:: 05/29/20 Reason For Visit: Patient seen on dialysis today. She is still needing oxygen through nasal cannula. She says she still short of breath. Denies any history of headaches or severe chest pains. Labs and medications were reviewed. Dialysis orders were reviewed with the treating dialysis nurse. Physical Exam Vital Signs: Temp Pulse Resp BP Pulse Ox 97.9 F 89 12 134/82 H 97 05/29/20 11:41 05/29/20 11:41 05/29/20 11:41 05/29/20 11:41 05/29/20 16:03 Intake & Output 05/28/20 05/29/20 05/30/20 06:59 06:59 06:59 Intake Total 740 1340 260 Output Total 4200 Balance -3460 1340 260 Weight 109.6 kg 110 kg General appearance: PRESENT: no acute distress Respiratory exam: PRESENT: clear to auscultation freddy, decreased breath sounds. ABSENT: crackles Cardiovascular exam: PRESENT: +S1, +S2 GI/Abdominal exam: PRESENT: normal bowel sounds, soft. ABSENT: organomegaly, tenderness Extremities exam: PRESENT: pedal edema Neurological exam: PRESENT: alert, awake, oriented to person, oriented to place Psychiatric exam: PRESENT: anxious Results Laboratory Results: 05/29/20 04:56 05/29/20 04:56 05/29/20 05/29/20 04:56 04:56 WBC 6.5 RBC 3.16 L Hgb 8.7 L Hct 26.6 L MCV 84 MCH 27.7 MCHC 32.9 RDW 17.5 H Plt Count 254 Sodium 135.4 L Potassium 4.4 Chloride 93 L Carbon Dioxide 25 Anion Gap 17 BUN 86 H Creatinine 11.96 H Est GFR ( Amer) 4 L Glucose 179 H Calcium 8.0 L 05/27/20 05/27/20 10:07 10:07 Creatine Kinase 104 Troponin I 0.020 NT-Pro-B Natriuret Pep [id number] H Impressions: Chest X-Ray 05/27/20 10:39 IMPRESSION: Cardiomegaly with interstitial and alveolar opacities, likely edema. No large effusion. Assessment & Plan - Diagnosis (1) Acute diastolic (congestive) heart failure Plan: See response to dialysis today. She is definitely much improved than when I saw her on Wednesday for urgent dialysis. (2) ESRD on dialysis Is this a current diagnosis for this admission?: Yes Plan: Currently undergoing dialysis. Dialysis being supervised. Vital signs are stable. Plan to remove 3-4 L as tolerated. Dialysis orders were reviewed with the treating dialysis nurse. (3) Hypocalcemia Plan: Fairly stable. Advised compliance with calcium supplements. Monitor. (4) Acute hypoxemic respiratory failure Plan: Much improved but she still requires nasal cannula. Monitor. See response to dialysis. (5) Diabetes mellitus type 1 with complications Plan: Advised tight control. (6) Essential (primary) hypertension Plan: Currently well controlled. Monitor. (7) Anemia Qualifiers: Anemia type: unspecified type Qualified Code(s): D64.9 - Anemia, unspecified Plan: Adjust erythropoietin.
--- NOTE | 2020-05-29 18:19 | PDOC PROGRESS REPORT ---
Subjective Progress Note for:: 05/29/20 Subjective:: Patient seen by the bedside, she has many somatic symptoms Reason For Visit: RESPIRATORY DISTRESS, ESRD ON DIALYSIS Physical Exam Vital Signs: Temp Pulse Resp BP Pulse Ox 97.9 F 89 12 134/82 H 97 05/29/20 11:41 05/29/20 11:41 05/29/20 11:41 05/29/20 11:41 05/29/20 16:03 Intake & Output 05/28/20 05/29/20 05/30/20 06:59 06:59 06:59 Intake Total 740 1340 260 Output Total 4200 3300 Balance -3460 1340 -3040 Weight 109.6 kg 110 kg General appearance: PRESENT: no acute distress Eye exam: PRESENT: PERRLA Respiratory exam: PRESENT: clear to auscultation freddy Cardiovascular exam: PRESENT: +S1, +S2 GI/Abdominal exam: PRESENT: soft Neurological exam: PRESENT: alert Results Laboratory Results: 05/29/20 04:56 05/29/20 04:56 05/29/20 05/29/20 04:56 04:56 WBC 6.5 RBC 3.16 L Hgb 8.7 L Hct 26.6 L MCV 84 MCH 27.7 MCHC 32.9 RDW 17.5 H Plt Count 254 Sodium 135.4 L Potassium 4.4 Chloride 93 L Carbon Dioxide 25 Anion Gap 17 BUN 86 H Creatinine 11.96 H Est GFR ( Amer) 4 L Glucose 179 H Calcium 8.0 L 05/27/20 05/27/20 10:07 10:07 Creatine Kinase 104 Troponin I 0.020 NT-Pro-B Natriuret Pep [id number] H Impressions: Chest X-Ray 05/27/20 10:39 IMPRESSION: Cardiomegaly with interstitial and alveolar opacities, likely edema. No large effusion. Assessment & Plan - Diagnosis (1) Acute pulmonary edema Is this a current diagnosis for this admission?: Yes (2) Acute diastolic (congestive) heart failure Is this a current diagnosis for this admission?: Yes (3) ESRD on dialysis Is this a current diagnosis for this admission?: Yes (4) Type 1 diabetes mellitus with complication Is this a current diagnosis for this admission?: Yes - Time Time Spent with patient: 25-34 minutes Level of Care: MEDICAL
[2020-05-29] MEDS: METOLAZONE 5 MG TABLET PO SCH (22:54)
[2020-05-29] MEDS: ATORVASTATIN CALCIUM 80 MG TABLET PO SCH (22:56)
[2020-05-29] MEDS: CLOPIDOGREL BISULFATE 75 MG TABLET PO SCH (22:56)
[2020-05-29] MEDS: CALCIUM CARBONATE 500 MG TAB.CHEW PO SCH (22:59)
[2020-05-30] MEDS: OXYCODONE HCL IR 5 MG TABLET PO PRN ×2 (00:31→23:47)
[2020-05-30] MEDS: OXYCODONE-ACETAMINOPHEN 5-325 MG TABLET PO PRN ×2 (00:32→23:47)
[2020-05-30] MEDS: PROMETHAZINE HCL 25 MG TABLET PO PRN ×2 (00:32→23:48)
[2020-05-30] MEDS: FUROSEMIDE 80 MG TABLET PO SCH ×3 (06:00→22:40)
[2020-05-30] MEDS: CALCIUM ACETATE 667 MG CAPSULE PO SCH ×3 (06:00→22:39)
[2020-05-30] MEDS: GABAPENTIN 100 MG CAPSULE PO SCH ×4 (06:01→22:40)
[2020-05-30] MEDS: CLONIDINE HCL 0.1 MG TABLET PO SCH ×3 (06:01→22:40)
[2020-05-30 08:05] LABS: ANION GAP 12 (5-19); BLOOD UREA NITROGEN 58 mg/dL (7-20); CALCIUM 8.1 mg/dL (8.4-10.2); CARBON DIOXIDE 26 mmol/L (22-30); CHLORIDE 97 mmol/L (98-107); GLUCOSE 200 mg/dL (75-110); POTASSIUM 4.7 mmol/L (3.6-5.0)
[2020-05-30] MEDS: INSULIN GLARGINE,HUM.REC.ANLOG 1,000 UNIT/10 ML VIAL SUBCUT SCH ×2 (10:20→22:38)
[2020-05-30] MEDS: OXCARBAZEPINE 150 MG TABLET PO SCH ×2 (10:20→22:40)
[2020-05-30] MEDS: INSULIN LISPRO 100 UNIT/ML 3 ML VIAL SUBCUT SCH ×4 (10:20→22:38)
[2020-05-30] MEDS: PANTOPRAZOLE SODIUM 20 MG TABLET.DR PO SCH (10:20)
[2020-05-30] MEDS: NIFEDIPINE 30 MG TAB.ER.24 PO SCH ×2 (10:21→22:40)
--- NOTE | 2020-05-30 12:49 | PDOC PROGRESS REPORT ---
Subjective Progress Note for:: 05/30/20 Subjective:: Patient was seen sitting up on the edge of her bed. At the time she still receiving oxygen via a NC. She does claim to have had to use the bipap part of last night. Her SOB is slightly improved from yesterday. She denies chest pain, n/v/d/c. Reason For Visit: RESPIRATORY DISTRESS, ESRD ON DIALYSIS Physical Exam Vital Signs: Temp Pulse Resp BP Pulse Ox 97.5 F 79 17 123/64 100 05/30/20 07:52 05/30/20 07:52 05/30/20 07:52 05/30/20 07:52 05/30/20 07:52 Intake & Output 05/29/20 05/30/20 05/31/20 06:59 06:59 06:59 Intake Total 1340 1600 Output Total 3300 Balance 1340 -1700 Weight 110 kg 110 kg General appearance: PRESENT: no acute distress, well-developed, well-nourished Mouth exam: PRESENT: moist Neck exam: ABSENT: lymphadenopathy, tracheal deviation Respiratory exam: PRESENT: crackles, rales. ABSENT: clear to auscultation freddy, wheezes Cardiovascular exam: PRESENT: +S1, +S2 GI/Abdominal exam: PRESENT: normal bowel sounds, soft. ABSENT: organomegaly, tenderness Extremities exam: PRESENT: pedal edema, +1 edema. ABSENT: +2 edema Musculoskeletal exam: PRESENT: normal inspection. ABSENT: tenderness Neurological exam: PRESENT: alert, awake, oriented to person, oriented to place, oriented to time, oriented to situation Psychiatric exam: PRESENT: depressed, flat affect Skin exam: PRESENT: dry, intact, warm. ABSENT: cyanosis Results Laboratory Results: 05/29/20 04:56 05/30/20 07:28 05/30/20 07:28 Sodium 134.6 L Potassium 4.7 Chloride 97 L Carbon Dioxide 26 Anion Gap 12 BUN 58 H Creatinine 9.49 H Est GFR ( Amer) 6 L Glucose 200 H Calcium 8.1 L 05/27/20 05/27/20 10:07 10:07 Creatine Kinase 104 Troponin I 0.020 NT-Pro-B Natriuret Pep [id number] H Impressions: Chest X-Ray 05/27/20 10:39 IMPRESSION: Cardiomegaly with interstitial and alveolar opacities, likely edema. No large effusion. Assessment & Plan - Diagnosis (1) ESRD on dialysis Is this a current diagnosis for this admission?: Yes Plan: Will look to arrange for dialysis tomorrow and extra fluid removal. (2) Acute diastolic heart failure Plan: will look to removal more fluid with dialysis tomorrow. (3) Acute hypoxemic respiratory failure Plan: improving with fluid removal (4) Anemia in chronic kidney disease (CKD) Qualifiers: Chronic kidney disease stage: on chronic dialysis Qualified Code(s): N18.6 - End stage renal disease; D63.1 - Anemia in chronic kidney disease; Z99.2 - Dependence on renal dialysis Plan: will look to arrange for retacrit tomorrow with dialysis. (5) Hypocalcemia Plan: stable on calcium supplements, could benefit from the addition of calcitriol (6) Diabetes mellitus type 1 with complications Plan: patient needs to have better control of her diabetes. (7) Essential (primary) hypertension Plan: improved and controlled now
[2020-05-30] MEDS: CALCITRIOL 0.25 MCG CAPSULE PO SCH (15:33)
--- NOTE | 2020-05-30 21:02 | PDOC PROGRESS REPORT ---
Subjective Progress Note for:: 05/30/20 Subjective:: Patient seen by the bedside Reason For Visit: RESPIRATORY DISTRESS, ESRD ON DIALYSIS Physical Exam Vital Signs: Temp Pulse Resp BP Pulse Ox 97.6 F 84 18 146/83 H 100 05/30/20 19:54 05/30/20 19:54 05/30/20 19:54 05/30/20 19:54 05/30/20 19:54 Intake & Output 05/29/20 05/30/20 05/31/20 06:59 06:59 06:59 Intake Total 1340 1600 240 Output Total 3300 360 Balance 1340 -1700 -120 Weight 110 kg 110 kg General appearance: PRESENT: no acute distress Eye exam: PRESENT: PERRLA Respiratory exam: PRESENT: clear to auscultation freddy Cardiovascular exam: PRESENT: +S1, +S2 GI/Abdominal exam: PRESENT: soft Neurological exam: PRESENT: alert Results Laboratory Results: 05/29/20 04:56 05/30/20 07:28 05/30/20 07:28 Sodium 134.6 L Potassium 4.7 Chloride 97 L Carbon Dioxide 26 Anion Gap 12 BUN 58 H Creatinine 9.49 H Est GFR ( Amer) 6 L Glucose 200 H Calcium 8.1 L 05/27/20 05/27/20 10:07 10:07 Creatine Kinase 104 Troponin I 0.020 NT-Pro-B Natriuret Pep 32215 H Impressions: Chest X-Ray 05/27/20 10:39 IMPRESSION: Cardiomegaly with interstitial and alveolar opacities, likely edema. No large effusion. Assessment & Plan - Diagnosis (1) Acute pulmonary edema Is this a current diagnosis for this admission?: Yes (2) Acute diastolic (congestive) heart failure Is this a current diagnosis for this admission?: Yes (3) ESRD on dialysis Is this a current diagnosis for this admission?: Yes (4) Type 1 diabetes mellitus with complication Is this a current diagnosis for this admission?: Yes - Time Time Spent with patient: 15-24 minutes Level of Care: MEDICAL
[2020-05-30] MEDS: CALCIUM CARBONATE 500 MG TAB.CHEW PO SCH (22:39)
[2020-05-30] MEDS: ATORVASTATIN CALCIUM 80 MG TABLET PO SCH (22:39)
[2020-05-30] MEDS: METOLAZONE 5 MG TABLET PO SCH (22:40)
[2020-05-30] MEDS: CLOPIDOGREL BISULFATE 75 MG TABLET PO SCH (22:41)
[2020-05-31] MEDS: FUROSEMIDE 80 MG TABLET PO SCH ×3 (05:33→22:12)
[2020-05-31] MEDS: CLONIDINE HCL 0.1 MG TABLET PO SCH ×3 (05:33→22:12)
[2020-05-31] MEDS: GABAPENTIN 100 MG CAPSULE PO SCH ×3 (06:10→22:12)
[2020-05-31] MEDS: CALCIUM ACETATE 667 MG CAPSULE PO SCH ×3 (06:12→22:11)
[2020-05-31] MEDS ORDERED: EPOETIN ALFA-EPBX 2,000 UNIT, EPOETIN ALFA-EPBX 3,000 UNIT, EPOETIN ALFA-EPBX 20,000 UN... IV PRN ×4 (06:43)
[2020-05-31] MEDS: INSULIN LISPRO 100 UNIT/ML 3 ML VIAL SUBCUT SCH ×4 (08:09→22:13)
[2020-05-31 08:37] LABS: HEMATOCRIT 25.5 % (36.0-47.0); HEMOGLOBIN 8.1 g/dL (12.0-15.5); MEAN CORPUSCULAR HEMOGLOBIN 27.4 pg (27.0-33.4); MEAN CORPUSCULAR HGB CONC 31.9 g/dL (32.0-36.0); MEAN CORPUSCULAR VOLUME 86 fl (80-97); PLATELET COUNT 310 10^3/uL (150-450); RED BLOOD COUNT 2.97 10^6/uL (3.72-5.28); RED CELL DISTRIBUTION WIDTH 18.1 % (11.5-14.0); WHITE BLOOD COUNT 6.9 10^3/uL (4.0-10.5)
[2020-05-31 08:58] LABS: ANION GAP 16 (5-19); BLOOD UREA NITROGEN 71 mg/dL (7-20); CALCIUM 8.8 mg/dL (8.4-10.2); CARBON DIOXIDE 26 mmol/L (22-30); CHLORIDE 94 mmol/L (98-107); GLUCOSE 127 mg/dL (75-110); POTASSIUM 4.8 mmol/L (3.6-5.0)
--- NOTE | 2020-05-31 11:41 | PDOC PROGRESS REPORT ---
Subjective Progress Note for:: 05/31/20 Reason For Visit: Seen on dialysis today. She still complains of shortness of breath and is on nasal cannula. Denies any history of chest pains. Denies history of fever or chills. Labs and medications were reviewed. Dialysis orders were reviewed with the treating dialysis nurse. Physical Exam Vital Signs: Temp Pulse Resp BP Pulse Ox 98.2 F 78 19 157/63 H 100 05/30/20 23:25 05/30/20 23:25 05/30/20 23:25 05/30/20 23:25 05/30/20 23:25 Intake & Output 05/30/20 05/31/20 06/01/20 06:59 06:59 06:59 Intake Total 1600 1020 Output Total 3300 360 Balance -1700 660 Weight 110 kg 110 kg General appearance: PRESENT: no acute distress Respiratory exam: PRESENT: clear to auscultation freddy, decreased breath sounds. ABSENT: crackles Cardiovascular exam: PRESENT: +S1, +S2 GI/Abdominal exam: PRESENT: normal bowel sounds, soft. ABSENT: organomegaly, tenderness Extremities exam: ABSENT: pedal edema Neurological exam: PRESENT: alert, awake, oriented to person Psychiatric exam: PRESENT: depressed Results Laboratory Results: 05/31/20 07:35 05/31/20 07:35 05/31/20 05/31/20 07:35 07:35 WBC 6.9 RBC 2.97 L Hgb 8.1 L Hct 25.5 L MCV 86 MCH 27.4 MCHC 31.9 L RDW 18.1 H Plt Count 310 Sodium 135.7 L Potassium 4.8 Chloride 94 L Carbon Dioxide 26 Anion Gap 16 BUN 71 H Creatinine 11.80 H Est GFR ( Amer) 4 L Glucose 127 H Calcium 8.8 05/27/20 05/27/20 10:07 10:07 Creatine Kinase 104 Troponin I 0.020 NT-Pro-B Natriuret Pep [id number] H Impressions: Chest X-Ray 05/27/20 10:39 IMPRESSION: Cardiomegaly with interstitial and alveolar opacities, likely edema. No large effusion. Assessment & Plan - Diagnosis (1) Acute diastolic (congestive) heart failure Plan: See response to dialysis today. We will follow-up with a chest x-ray postdialysis. (2) ESRD on dialysis Is this a current diagnosis for this admission?: Yes Plan: Currently undergoing dialysis. Dialysis being supervised. Vital signs are stable. Plan to remove 3-4 L as tolerated. Dialysis orders were reviewed with the treating dialysis nurse. (3) Hypocalcemia Plan: Fairly stable. Advised compliance with calcium supplements. Monitor. (4) Acute hypoxemic respiratory failure Plan: Much improved but she still requires nasal cannula. Monitor. See response to dialysis. (5) Diabetes mellitus type 1 with complications Plan: Advised tight control. (6) Essential (primary) hypertension Plan: Currently well controlled. Monitor. (7) Anemia Qualifiers: Anemia type: unspecified type Qualified Code(s): D64.9 - Anemia, unspecified Plan: Adjust erythropoietin.Get iron studies rechecked.
[2020-05-31] MEDS: INSULIN GLARGINE,HUM.REC.ANLOG 1,000 UNIT/10 ML VIAL SUBCUT SCH ×2 (11:55→22:13)
[2020-05-31] MEDS: PANTOPRAZOLE SODIUM 20 MG TABLET.DR PO SCH (12:11)
[2020-05-31] MEDS: NIFEDIPINE 30 MG TAB.ER.24 PO SCH ×2 (12:11→22:11)
[2020-05-31] MEDS: CALCITRIOL 0.25 MCG CAPSULE PO SCH (12:12)
[2020-05-31] MEDS: OXCARBAZEPINE 150 MG TABLET PO SCH ×2 (12:12→22:12)
--- NOTE | 2020-05-31 16:35 | RADIOLOGY REPORT (SQ) ---
EXAM DESCRIPTION: CHEST SINGLE VIEW IMAGES COMPLETED DATE/TIME: 05/31/2020 4:13 pm REASON FOR STUDY: dyspnea COMPARISON: AP view of the chest from 05/27/2020. EXAM PARAMETERS: NUMBER OF VIEWS: One view. TECHNIQUE: An AP view of the chest was obtained. RADIATION DOSE: NA LIMITATIONS: None. FINDINGS: LUNGS AND PLEURA: Unchanged bilateral basilar predominant interstitial and alveolar opacit ies. There is no sizable pleural effusion or pneumothorax. MEDIASTINUM AND HILAR STRUCTURES: No mediastinal or hilar contour abnormality. HEART AND VASCULAR STRUCTURES: The cardiac silhouette is enlarged. BONES: No acute findings. HARDWARE: Endovascular stents within the outflow track of a right upper extremity hemodialysis access . OTHER: No other finding. IMPRESSION: Unchanged cardiomegaly and bilateral basilar predominant interstitial and alveolar opaci ties. Clinical correlation to exclude pulmonary edema is recommend. TECHNICAL DOCUMENTATION: JOB ID: [id number] 2010 [employer]- All Rights Reserved Reading location - IP/workstation name: [email or web address]
--- NOTE | 2020-05-31 21:16 | PDOC DISCHARGE SUMMARY ---
Impression - Admit/DC Date/PCP Admission Date/Primary Care Provider: 05/27/20 19:00 HILARY HERNANDEZ MD Discharge Date: 05/31/20 - Discharge Diagnosis (1) Acute pulmonary edema Is this a current diagnosis for this admission?: Yes (2) Acute diastolic (congestive) heart failure Is this a current diagnosis for this admission?: Yes (3) ESRD on dialysis Is this a current diagnosis for this admission?: Yes (4) Type 1 diabetes mellitus with complication Is this a current diagnosis for this admission?: Yes - Additional Information Discharge Activity: Activity As Tolerated, Balance Activity w/Rest, Weigh Daily Referrals: [facility] [Outside] HILARY HERNANDEZ MD [Primary Care Provider] - Home Medications: Calcium Acetate [Phoslo 667 mg Capsule] 1,334 mg PO .BIDWITHSNACKS 09/25/19 Calcium Acetate [Phoslo 667 mg Capsule] 2,001 mg PO Q8 09/25/19 Furosemide [Lasix 80 mg Tablet] 80 mg PO Q8 09/25/19 Insulin Detemir [Levemir] 35 unit SQ BID 09/25/19 Nifedipine [Procardia XL 60 mg Tablet] 60 mg PO Q12 09/25/19 Oxycodone HCl/Acetaminophen [Percocet 7.5-325 mg Tablet] 1 each PO QIDP PRN 09/25/19 Alprazolam 1 mg PO TIDP PRN 10/25/19 Metolazone 10 mg PO DAILY 10/25/19 Promethazine HCl [Phenergan 25 mg Tablet] 25 mg PO Q6HP PRN 10/25/19 Clonidine HCl [Catapres 0.1 mg Tablet] 0.1 mg PO Q8 11/29/19 Clopidogrel Bisulfate [Plavix 75 mg Tablet] 75 mg PO DAILY 11/29/19 Gabapentin Enacarbil [Horizant] 300 mg PO QPM 03/11/20 Insulin Aspart [Novolog] 12 unit SQ MEALS 03/11/20 Zolpidem Tartrate [Ambien] 10 mg PO HSP PRN 03/11/20 Omeprazole 20 mg PO DAILY 04/26/20 Atorvastatin Calcium [Lipitor 80 mg Tablet] 80 mg PO QHS 05/27/20 Oxcarbazepine 300 mg PO Q12 05/27/20 History of Present Illiness History of Present Illness: ERICH GOODMAN is a 34 year old female, She has a history of end-stage renal disease on hemodialysis, she has type 1 diabetes mellitus, hypertension, she was recently transfer to [facility] she underwent cardiac catheterization she said it was normal, I do not have the results of the procedure, she presented in her usual fashion of pulmonary edema, She required emergent hemodialysis Hospital Course Hospital Course: Patient was admitted for the management of acute pulmonary edema, she required hemodialysis. She felt she needed oxygen therapy but the oxygen saturation did not meet the criteria for home oxygen therapy, oxygen saturation was more than 88%.She was seen consultation by nephrology Dr. Gustavo Kwon.. She required multiple hospitalization For the same indication she will typically present with pulmonary edema usually after hemodialysis she will clinically improve. She recently was transferred to [facility] where she underwent cardiac catheterization, apparently she has normal coronary artery, and never received a report but that is what she said Physical Exam Vital Signs: Temp Pulse Resp BP Pulse Ox 98.0 F 83 18 172/83 H 97 05/31/20 20:04 05/31/20 20:04 05/31/20 20:04 05/31/20 20:04 05/31/20 20:04 Intake & Output 05/30/20 05/31/20 06/01/20 06:59 06:59 06:59 Intake Total 1600 1020 240 Output Total 3300 360 4100 Balance -1700 660 -3860 Weight 110 kg 110 kg General appearance: PRESENT: no acute distress Eye exam: PRESENT: PERRLA Respiratory exam: PRESENT: clear to auscultation freddy Cardiovascular exam: PRESENT: +S1, +S2 GI/Abdominal exam: PRESENT: soft Neurological exam: PRESENT: alert, CN II-XII grossly intact Results Laboratory Results: WBC 6.9 10^3/uL (4.0-10.5) 05/31/20 07:35 RBC 2.97 10^6/uL (3.72-5.28) L 05/31/20 07:35 Hgb 8.1 g/dL (12.0-15.5) L 05/31/20 07:35 Hct 25.5 % (36.0-47.0) L 05/31/20 07:35 MCV 86 fl (80-97) 05/31/20 07:35 MCH 27.4 pg (27.0-33.4) 05/31/20 07:35 MCHC 31.9 g/dL (32.0-36.0) L 05/31/20 07:35 RDW 18.1 % (11.5-14.0) H 05/31/20 07:35 Plt Count 310 10^3/uL (150-450) 05/31/20 07:35 Lymph % (Auto) 15.9 % (13-45) 05/27/20 10:07 [place] % (Auto) 4.7 % (3-13) 05/27/20 10:07 Eos % (Auto) 5.6 % (0-6) 05/27/20 10:07 Baso % (Auto) 0.8 % (0-2) 05/27/20 10:07 Absolute Neuts (auto) 6.1 10^3/uL (1.7-8.2) 05/27/20 10:07 Absolute Lymphs (auto) 1.3 10^3/uL (0.5-4.7) 05/27/20 10:07 Absolute Monos (auto) 0.4 10^3/uL (0.1-1.4) 05/27/20 10:07 Absolute Eos (auto) 0.5 10^3/uL (0.0-0.6) 05/27/20 10:07 Absolute Basos (auto) 0.1 10^3/uL (0.0-0.2) 05/27/20 10:07 Seg Neutrophils % 73.0 % (42-78) 05/27/20 10:07 Sodium 135.7 mmol/L (137-145) L 05/31/20 07:35 Potassium 4.8 mmol/L (3.6-5.0) 05/31/20 07:35 Chloride 94 mmol/L (98-107) L 05/31/20 07:35 Carbon Dioxide 26 mmol/L (22-30) 05/31/20 07:35 Anion Gap 16 (5-19) 05/31/20 07:35 BUN 71 mg/dL (7-20) H 05/31/20 07:35 Creatinine 11.80 mg/dL (0.52-1.25) H 05/31/20 07:35 Est GFR ( Amer) 4 (>60) L 05/31/20 07:35 Est GFR (MDRD) Non-Af 4 (>60) L 05/31/20 07:35 Glucose 127 mg/dL (75-110) H 05/31/20 07:35 POC Glucose 218 mg/dL (70-110) H 05/31/20 21:05 Lactic Acid 0.6 mmol/L (0.7-2.1) L 05/27/20 10:07 Calcium 8.8 mg/dL (8.4-10.2) 05/31/20 07:35 Ionized Calcium New 1.00 mmol/L (1.14-1.30) L 05/28/20 05:36 Total Bilirubin 0.5 mg/dL (0.2-1.3) 05/27/20 10:07 Direct Bilirubin 0.3 mg/dL (0.0-0.4) 05/27/20 10:07 Neonat Total Bilirubin Not Reportable 05/27/20 10:07 Neonat Direct Bilirubin Not Reportable 05/27/20 10:07 Neonat Indirect Bili Not Reportable 05/27/20 10:07 AST 19 U/L (14-36) 05/27/20 10:07 ALT 9 U/L (<35) 05/27/20 10:07 Alkaline Phosphatase 102 U/L (38-126) 05/27/20 10:07 Creatine Kinase 104 U/L (30-135) 05/27/20 10:07 Troponin I 0.020 ng/mL 05/27/20 10:07 NT-Pro-B Natriuret Pep 97109 pg/mL (<125) H 05/27/20 10:07 Total Protein 8.2 g/dL (6.3-8.2) 05/27/20 10:07 Albumin 4.2 g/dL (3.5-5.0) 05/27/20 10:07 SARS-CoV-2 (PCR) NEGATIVE (NEGATIVE) 05/27/20 12:20 05/27/20 10:07 Troponin I 0.020 NT-Pro-B Natriuret Pep [id number] H Impressions: Chest X-Ray 05/27/20 10:39 IMPRESSION: Cardiomegaly with interstitial and alveolar opacities, likely edema . No large effusion. Chest X-Ray 05/31/20 00:00 IMPRESSION: Unchanged cardiomegaly and bilateral basilar predominant interstitial and alveolar opacities. Clinical correlation to exclude pulmonary edema is recommend. Stroke Is this a Stroke Patient?: No Acute Heart Failure - Is this a Heart Failure Patient?: No
[2020-05-31] MEDS: METOLAZONE 5 MG TABLET PO SCH (22:11)
[2020-05-31] MEDS: CLOPIDOGREL BISULFATE 75 MG TABLET PO SCH (22:12)
[2020-05-31] MEDS: ATORVASTATIN CALCIUM 80 MG TABLET PO SCH (22:12)
[2020-05-31] MEDS: CALCIUM CARBONATE 500 MG TAB.CHEW PO SCH (22:14)
[2020-06-01 01:19] VITALS: BP 164/73
== END 2020-06-01 01:22 | disposition home or self-care (01) | DRG 291 ==
LOC: ER 10:04 → EH 13:32 → ICU 14:50 → 4N 18:46 → OBSVTOIN 19:00
PROVIDERS: ADMIT Internal Medicine; ATTEND Internal Medicine
DX: I13.2 Hypertensive heart and chronic kidney disease with heart failure and with stage 5 chronic kidney disease, or end stage renal disease (principal); I50.33 Acute on chronic diastolic (congestive) heart failure; N18.6 End stage renal disease; J96.01 Acute respiratory failure with hypoxia; E83.51 Hypocalcemia; D63.1 Anemia in chronic kidney disease; I25.10 Atherosclerotic heart disease of native coronary artery without angina pectoris; J45.909 Unspecified asthma, uncomplicated; E10.22 Type 1 diabetes mellitus with diabetic chronic kidney disease; E10.319 Type 1 diabetes mellitus with unspecified diabetic retinopathy without macular edema; E10.43 Type 1 diabetes mellitus with diabetic autonomic (poly)neuropathy; N25.0 Renal osteodystrophy; E83.39 Other disorders of phosphorus metabolism; E66.01 Morbid (severe) obesity due to excess calories; Z99.2 Dependence on renal dialysis; Z79.4 Long term (current) use of insulin; I25.2 Old myocardial infarction; Z90.49 Acquired absence of other specified parts of digestive tract; Z79.82 Long term (current) use of aspirin; Z88.1 Allergy status to other antibiotic agents; Z88.5 Allergy status to narcotic agent; Z88.8 Allergy status to other drugs, medicaments and biological substances; Z03.818 Encounter for observation for suspected exposure to other biological agents ruled out; Z88.6 Allergy status to analgesic agent; Z88.3 Allergy status to other anti-infective agents
CPT/HCPCS: 36415; 71045; 80048; 80053; 82330; 82550; 82962; 83605; 83880; 84484; 85025; 85027; 87040; 87635; 93005; 93010; 94660; 96374; 99285; C9803; J1815; J2405; J3490; Q5105

== ENCOUNTER 2020-06-03 10:21 | Emergency (ER) | payer MEDICARE, MEDICAID ==
[2020-06-03 11:07] LABS: ABSOLUTE EOSINOPHILS # (AUTO) 0.4 10^3/uL (0.0-0.6); ABSOLUTE LYMPHOCYTES (AUTO) 1.3 10^3/uL (0.5-4.7); ABSOLUTE MONOCYTES (AUTO) 0.4 10^3/uL (0.1-1.4); ABSOLUTE NEUT (AUTO) 6.4 10^3/uL (1.7-8.2); BASOPHILS % (AUTO) 0.5 % (0-2); EOSINOPHILS % (AUTO) 4.9 % (0-6); HEMATOCRIT 25.8 % (36.0-47.0); HEMOGLOBIN 8.4 g/dL (12.0-15.5); MEAN CORPUSCULAR HEMOGLOBIN 27.8 pg (27.0-33.4); MEAN CORPUSCULAR HGB CONC 32.5 g/dL (32.0-36.0); MEAN CORPUSCULAR VOLUME 86 fl (80-97); MONOCYTES % (AUTO) 4.7 % (3-13); PLATELET COUNT 327 10^3/uL (150-450); RED BLOOD COUNT 3.02 10^6/uL (3.72-5.28); RED CELL DISTRIBUTION WIDTH 18.4 % (11.5-14.0); SEGMENTED NEUTROPHILS % (AUTO) 74.9 % (42-78); TOTAL CELLS COUNTED % (AUTO) 100 %; WHITE BLOOD COUNT 8.5 10^3/uL (4.0-10.5)
[2020-06-03 11:11] LABS: VENOUS BLOOD BASE EXCESS 0.4 mmol/L; VENOUS BLOOD HCO3 24.8 mmol/L (20-32); VENOUS BLOOD PCO2 39.1 mmHg (35-63); VENOUS BLOOD PH 7.42 (7.30-7.42)
[2020-06-03 11:27] LABS: ALBUMIN 4.5 g/dL (3.5-5.0); ALKALINE PHOSPHATASE 99 U/L (38-126); ANION GAP 16 (5-19); ASPARTATE AMINO TRANSFERASE 16 U/L (14-36); BILIRUBIN,DIRECT 0.3 mg/dL (0.0-0.4); BILIRUBIN,TOTAL 0.5 mg/dL (0.2-1.3); BLOOD UREA NITROGEN 83 mg/dL (7-20); CALCIUM 8.7 mg/dL (8.4-10.2); CARBON DIOXIDE 26 mmol/L (22-30); CHLORIDE 96 mmol/L (98-107); GLUCOSE 175 mg/dL (75-110); POTASSIUM 5.1 mmol/L (3.6-5.0)
--- NOTE | 2020-06-03 11:48 | RADIOLOGY REPORT (SQ) ---
EXAM DESCRIPTION: CHEST SINGLE VIEW IMAGES COMPLETED DATE/TIME: 06/03/2020 11:29 am REASON FOR STUDY: SHORTNESS OF BREATH COMPARISON: 05/31/2020 EXAM PARAMETERS: NUMBER OF VIEWS: One view. TECHNIQUE: Single frontal radiographic view of the chest acquired. RADIATION DOSE: NA LIMITATIONS: None. FINDINGS: LUNGS AND PLEURA: There is bilateral alveolar airspace disease most likely edema. No defi nite effusions. MEDIASTINUM AND HILAR STRUCTURES: No masses. Contour normal. HEART AND VASCULAR STRUCTURES: Heart is enlarged with central vascular prominence. BONES: No acute findings. HARDWARE: Vascular stent is in place on the right. OTHER: No other significant finding. IMPRESSION: Cardiomegaly with bilateral alveolar airspace disease most likely pulmonary edema. TECHNICAL DOCUMENTATION: JOB ID: [id number] 2010 [employer]- All Rights Reserved Reading location - IP/workstation name: [email or web address]
[2020-06-03] MEDS ORDERED: EPOETIN ALFA-EPBX 20,000 UNIT in SYRINGE, DISPOSABLE, 1 EACH IV PRN (14:01)
--- NOTE | 2020-06-03 17:22 | ER Document Report ---
Entered by POP GONCALVES SCRIBE 06/03/20 [id number] Acting as scribe for:ELOISA SALINAS MD ED General - General Chief Complaint: Shortness Of Breath Stated Complaint: SHORTNESS OF BREATH Time Seen by Provider: 06/03/20 11:36 Primary Care Provider: HIALRY HERNANDEZ MD [Primary Care Provider] - Follow up as needed Information source: Patient Notes: This 34 year old female patient presents to the emergency department today with complaints of shortness of breath. Patient states she is a hemodialysis patient on MWF, with her last treatment being x3 days ago on Wednesday. Patient states he has felt short of breath the past x2 days and missed her hemodialysis appointmen t this morning for this reason. Denies any fever, chills, or cough. TRAVEL OUTSIDE OF THE [place] IN LAST 30 DAYS: No - Related Data Allergies/Adverse Reactions: aspirin [Aspirin] Allergy (Verified 03/11/20 08:31) Anaphylaxis ciprofloxacin [From Cipro] Allergy (Verified 03/11/20 08:31) Anaphylaxis clindamycin [Clindamycin] Allergy (Verified 03/11/20 08:31) hydrocodone [From Vicodin] Allergy (Verified 03/11/20 08:31) ibuprofen [From Motrin] Allergy (Verified 03/11/20 08:31) Anaphylaxis lidocaine [From Lidoderm] Allergy (Verified 03/11/20 08:31) Generalized rash tramadol HCl [From Ultram] Allergy (Verified 03/11/20 08:31) vancomycin [Vancomycin] Allergy (Verified 03/11/20 08:31) Shortness of Breath nitroglycerin [Nitroglycerin] Adverse Reaction (Intermediate, Verified 03/11/20 08:31) Joint pain Past Medical History - General Information source: Patient - Social History Smoking Status: Unknown if Ever Smoked Family History: Reviewed & Not Pertinent Patient has homicidal ideation: No - Past Medical History Cardiac Medical History: Reports: Hx Congestive Heart Failure, Hx Coronary Artery Disease, Hx Heart Attack, Hx Hypertension, Hx Heart Murmur Pulmonary Medical History: Reports: Hx Asthma, Hx Pneumonia Neurological Medical History: Reports: Hx Migraine, Hx Seizures - only r/t low calcium Endocrine Medical History: Reports: Hx Diabetes Mellitus Type 1, Hx Diabetes Mellitus Type 2 Renal/ Medical History: Reports: Hx End Stage Renal Disease - On hemodialysis --F, Hx Hemodialysis - MWF, Hx Ovarian Cysts Malignancy Medical History: GI Medical History: Reports: Hx Gastritis Musculoskeletal Medical History: Skin Medical History: Reports Hx Psoriasis Psychiatric Medical History: Reports: Hx Depression Traumatic Medical History: Infectious Medical History: Past Surgical History: Reports: Hx Appendectomy, Hx Cholecystectomy, Hx Vascular Surgery - Lt AV Fistula and graft; Rt AV fistula - Immunizations Immunizations up to date: Yes Hx Diphtheria, Pertussis, Tetanus Vaccination: Yes Hx Pneumococcal Vaccination: 08/22/11 Review of Systems - Review of Systems Constitutional: See HPI. denies: Chills, Fever EENT: No symptoms reported Cardiovascular: No symptoms reported Respiratory: See HPI, Short of breath. denies: Cough Gastrointestinal: No symptoms reported Genitourinary: No symptoms reported Female Genitourinary: No symptoms reported Musculoskeletal: No symptoms reported Skin: No symptoms reported Hematologic/Lymphatic: No symptoms reported Neurological/Psychological: No symptoms reported Physical Exam - Vital signs Vitals: Resp BP Pulse Ox 22 H 163/113 H 91 L 06/03/20 10:33 06/03/20 10:33 06/03/20 10:33 - General General appearance: Appears well, Alert - HEENT Head: Normocephalic, Atraumatic Eyes: Normal Pupils: PERRL - Respiratory Respiratory status: No respiratory distress Chest status: Nontender Breath sounds: Other - Diminished in bases bilaterally. No: Wheezing Chest palpation: Normal - Cardiovascular Rhythm: Regular Heart sounds: Normal auscultation Murmur: No - Abdominal Inspection: Obese Distension: No distension Bowel sounds: Normal Tenderness: Nontender - Extremities General upper extremity: Normal inspection. No: Edema Notes: AV fistula present in right upper extremity. Trace non-pitting edema of the bilateral lower extremities. - Neurological Neuro grossly intact: Yes Cognition: Normal Orientation: AAOx4 Speech: Normal - Psychological Associated symptoms: Normal affect, Normal mood - Skin Skin Temperature: Warm Skin Moisture: Dry Skin Color: Normal Course - Re-evaluation Re-evalutation: 06/03/20 17:16 Patient currently is in dialysis inpatient in the hospital in the dialysis room. Patient usually has a 4-hour dialysis time. Once patient completes her dialysis she is to return to the emergency department and be discharged home. Patient is hemodynamically stable and saturations on room air were between 94 and 97%. Patient denies any chest pain. - Vital Signs Vital signs: Temp Pulse Resp BP Pulse Ox 98.4 F 98 17 163/113 H 98 06/03/20 10:36 06/03/20 10:36 06/03/20 13:00 06/03/20 10:36 06/03/20 13:00 06/03/20 17:16 Vital signs show systolic diastolic hypertension. Patient will have vital signs repeated when she returns from dialysis. - Laboratory Result Diagrams: 06/03/20 10:45 06/03/20 10:45 Laboratory results interpreted by me: 06/03/20 06/03/20 10:45 10:45 RBC 3.02 L Hgb 8.4 L Hct 25.8 L RDW 18.4 H Potassium 5.1 H Chloride 96 L BUN 83 H Creatinine 14.50 H Est GFR ( Amer) 4 L Est GFR (MDRD) Non-Af 3 L Glucose 175 H 06/03/20 17:17 Patient has a chronic anemia and a potassium of 5.1 and a BUN 83 creatinine 14.5 patient is in end-stage renal disease patient on hemodialysis. Today is her day of hemodialysis but patient felt too weak this morning to go to dialysis. - Diagnostic Test Radiology reviewed: Image reviewed, Reports reviewed Radiology results interpreted by me: 06/03/20 17:18 Chest x-ray shows cardiomegaly and bibasilar infiltrates consistent with pulmonary edema - EKG Interpretation by Me Additional EKG results interpreted by me: 06/03/20 17:19 Twelve-lead EKG shows a normal sinus rhythm with a first-degree AV block and left ventricular hypertrophy. No acute ST-T wave changes to suggest infarction. Discharge - Discharge Clinical Impression: ESRD (end stage renal disease) on dialysis, Pulmonary edema, Anemia in chronic kidney disease (CKD) Condition: Good Disposition: HOME, SELF-CARE Additional Instructions: High Blood Pressure When your blood pressure was taken today it was elevated. Today's reading was . Pre-hypertension/Hypertension: The patient has been informed that they may have pre-hypertension or Hypertension based on a blood pressure reading in the emergency department. I recommend that the patient call the primary care provider listed on their discharge instructions or a physician of their choice this week to arrange follow up for further evaluation of possible pre- hypertension or Hypertension. Sometimes, stress or illness causes a temporary elevation of your blood pressure. We suggest that you get your blood pressure measured three more times during the next few days to see if this is more than a temporary abnormality. If your blood pressure is greater than 150/90 on each occasion, you must have treatment. Some simple things you can do to help are: If you have blood pressure medicine but aren't using it regularly, start taking it again. Get some aerobic exercise for at least 20 minutes on a daily basis. (See your doctor before beginning a new exercise program.) Eat a low-fat diet. Lose excess weight. Avoid salty foods and avoid adding salt to any of the foods you eat. Avoid diet pills, decongestants, "energizing" herbs, and other medicines that elevate blood pressure. If left untreated, hypertension greatly enhances your risk for developing heart disease and strokes. Please don't ignore this problem. Congestive Heart Failure You have been diagnosed as having congestive heart failure (CHF). CHF occurs when the heart is unable to pump blood efficiently, leading to fluid buildup in the veins and lungs. Typical symptoms are swelling of the legs, shortness of breath on minor exertion, and fatigue. CHF is treated with salt restriction, medicine to eliminate excess water and salt from the body, and medication to help the heart contract more efficiently. Eliminate added salt and salty foods in your diet. Decrease your activity until excess fluid has been eliminated. It will also be helpful to raise the head of your bed so you can sleep more easily. Keep a daily record of your weight. This will help your physician monitor your progress. Once extra water has been eliminated, light aerobic exercise daily -- such as walking -- will be helpful (unless your physician has told you to restrict activity for other reasons). Be sure to follow up with the physician as instructed. Contact the doctor at once if you worsen in any way.Kidney Failure When your kidneys no longer filter the blood adequately, we call this "kidney failure." While kidney failure can happen suddenly, usually it's the result of many years of slow damage. Kidneys can be injured by many different medical problems including infections, diabetes, high blood pressure, kidney stones, drug toxicity, and immune reactions. The symptoms of kidney failure do not develop until most of the normal kidney tissue has been lost. Early kidney failure usually has no symptoms. As it gets worse, symptoms can include weakness, confusion, high blood pressure, swelling, nausea, anemia, and itching. The seriousness of kidney failure is determined by measuring kidney function tests such as BUN or creatinine. The cause of kidney failure may be obvious from the medical history, but occasionally requires special tests such as an angiogram or kidney biopsy. Kidney failure can cause high blood pressure, and uncontrolled hypertension damages kidneys. Good control of blood pressure is important. If you have diabetes, good blood sugar control helps prevent further kidney damage. Fluid retention can be monitored by checking your weight daily. It's best to eat a diet low in protein, potassium, and salt. When kidney failure becomes severe, dialysis or kidney transplant may be required. Call the doctor or return if you develop significant weakness, repeated vomiting, severe lightheadedness, confusion, severe headache, or other serious change in your health. There is no prescriptions ordered today on discharge please continue your medications you are required to take for hypertension congestive heart failure and renal failure. And of course your next dialysis should be on your usual schedule Wednesday. Referrals: HILARY HERNANDEZ MD [Primary Care Provider] - Follow up as needed I personally performed the services described in the documentation, reviewed and edited the documentation which was dictated to the scribe in my presence, and it accurately records my words and actions.
--- NOTE | 2020-06-03 18:10 | PDOC PROGRESS REPORT ---
Subjective Progress Note for:: 06/03/20 Reason For Visit: This is a patient with history of ESRD on dialysis in the background of type 1 diabetes mellitus, hypertension, morbid obesity and severe noncompliance with diet medications, especially fluid and dialysis treatments was readmitted after just being discharged this last Wednesday based when she was admitted for acute congestive heart failure. She says she has not been drinking too much of fluids and has been watching her diet because of some abdominal pains and she cannot eat much. However the scales show that she has gained approximately 15 pounds over the weekend since she was discharged !!!. Currently being seen while undergoing dialysis. She is on 2 L of nasal cannula and quite comfortable as she is working her phone. Labs and medications were reviewed. Dialysis orders were reviewed with the treating dialysis nurse. Physical Exam Vital Signs: Temp Pulse Resp BP Pulse Ox 98.4 F 98 17 163/113 H 98 06/03/20 10:36 06/03/20 10:36 06/03/20 13:00 06/03/20 10:36 06/03/20 13:00 General appearance: PRESENT: no acute distress Respiratory exam: PRESENT: clear to auscultation freddy, decreased breath sounds. ABSENT: crackles Cardiovascular exam: PRESENT: +S1, +S2, systolic murmur GI/Abdominal exam: PRESENT: normal bowel sounds, soft. ABSENT: organomegaly, tenderness Extremities exam: PRESENT: pedal edema Neurological exam: PRESENT: alert, awake, oriented to person, oriented to place Psychiatric exam: PRESENT: appropriate affect Results Laboratory Results: 06/03/20 10:45 06/03/20 10:45 06/03/20 06/03/20 06/03/20 10:45 10:45 10:45 WBC 8.5 RBC 3.02 L Hgb 8.4 L Hct 25.8 L MCV 86 MCH 27.8 MCHC 32.5 RDW 18.4 H Plt Count 327 Seg Neutrophils % 74.9 VBG pH 7.42 VBG pCO2 39.1 VBG HCO3 24.8 VBG Base Excess 0.4 Sodium 138.0 Potassium 5.1 H Chloride 96 L Carbon Dioxide 26 Anion Gap 16 BUN 83 H Creatinine 14.50 H Est GFR ( Amer) 4 L Glucose 175 H Calcium 8.7 Total Bilirubin 0.5 AST 16 Alkaline Phosphatase 99 Total Protein 8.0 Albumin 4.5 Impressions: Chest X-Ray 07/13/20 10:30 IMPRESSION: Cardiomegaly with bilateral alveolar airspace disease most likely p ulmonary edema. Assessment & Plan - Diagnosis (1) Acute diastolic (congestive) heart failure Plan: Patient on 2 L of nasal cannula while she is undergoing emergent dialysis. Again reiterated the fact that she has to stick to the proper diet and fluid restrictions because she keeps coming on so many times with multiple admissions for the same. At some point she is not going to make it and I have expressed this very clearly.Cardiac catheterization at [facility] which she apparently states was normal and show any obstructive lesions (2) ESRD on dialysis Plan: Currently being seen while undergoing dialysis. Dialysis is stable. Blood pressure was quite high as is the case whenever she comes in with a similar presentation. Advised compliance with diet medications and fluid and salt intake. Plan to remove 4-4 L as tolerated. Discussed the fluid gains as again st what she is telling me that she is on fluid restriction. Dialysis orders were reviewed with the treating dialysis nurse. (3) Diabetes mellitus type 1 with complications Plan: Advised tight control for best reasons. (4) Essential (primary) hypertension Plan: Uncontrolled in the face of acute diastolic heart failure. See response to fluid removal and medications. Monitor. (5) Medical non-compliance Plan: Has been talked about on multiple level by different physicians but apparently is is unfortunately falling on deaf ears which I believe will lead to serious consequences down the road. (6) Anemia in chronic kidney disease (CKD) Qualifiers: Plan: Adjust erythropoietin if blood pressure allows.
[2020-06-03 20:20] VITALS: BP 180/79
--- NOTE | 2020-06-04 14:18 | EKG REPORT ---
SEVERITY:- ABNORMAL ECG - SINUS RHYTHM FIRST DEGREE AV BLOCK CONSIDER LEFT VENTRICULAR HYPERTROPHY PROLONGED QT INTERVAL : Confirmed by: Isacc Chen MD 04-Jun-2020 14:18:01
--- NOTE | 2020-06-04 14:18 | EKG REPORT ---
SEVERITY:- ABNORMAL ECG - SINUS RHYTHM FIRST DEGREE AV BLOCK PROBABLE LEFT ATRIAL ABNORMALITY LEFT AXIS DEVIATION LEFT VENTRICULAR HYPERTROPHY PROLONGED QT INTERVAL : Confirmed by: Isacc Chen MD 04-Jun-2020 14:17:50
== END 2020-06-03 20:50 | disposition home or self-care (01) ==
LOC: ER 10:21
DX: I13.2 Hypertensive heart and chronic kidney disease with heart failure and with stage 5 chronic kidney disease, or end stage renal disease (principal); E10.22 Type 1 diabetes mellitus with diabetic chronic kidney disease; N18.6 End stage renal disease; I50.31 Acute diastolic (congestive) heart failure; D63.1 Anemia in chronic kidney disease; Z99.2 Dependence on renal dialysis; Z91.15 Patient's noncompliance with renal dialysis; E66.01 Morbid (severe) obesity due to excess calories; Z91.14 Patient's other noncompliance with medication regimen; Z91.11 Patient's noncompliance with dietary regimen; R01.1 Cardiac murmur, unspecified; R06.02 Shortness of breath; I25.10 Atherosclerotic heart disease of native coronary artery without angina pectoris; J45.909 Unspecified asthma, uncomplicated; Z87.892 Personal history of anaphylaxis; Z88.8 Allergy status to other drugs, medicaments and biological substances; Z88.1 Allergy status to other antibiotic agents; Z88.6 Allergy status to analgesic agent; Z88.5 Allergy status to narcotic agent; Z88.4 Allergy status to anesthetic agent
CPT/HCPCS: 93005; 99285; 36415; 85025; 80053; 82803; 71045; 93010; J3490; Q5105; G0257

== ENCOUNTER 2020-06-07 14:27 | Emergency (ER) | payer MEDICARE, MEDICAID ==
--- NOTE | 2020-06-07 14:45 | ER Document Report ---
ED Medical Screen (RME) - General Chief Complaint: Chest Pressure Stated Complaint: CHEST PRESSURE Time Seen by Provider: 06/07/20 14:41 Primary Care Provider: HILARY HERNANDEZ MD [Primary Care Provider] - Follow up as needed Mode of Arrival: Medic Information source: Patient Notes: 34-year-old female presented to ED for complaint of chest pressure and low blood pressure. She states she was on dialysis for her normal dialysis today and after about 3 hours her blood pressure dropped and they did not take her off right away so then she developed severe chest pressure. She states now she is still having chest pressure and so they brought her to the emergency room for evaluation. Patient is alert and oriented answering questions appropriately. She is a long-term dialysis patient. She did get 3-1/2 of her for now 1/2-hour dialysis treatment done. She does not have low blood pressure at this time. I have greeted and performed a rapid initial assessment of this patient. A comprehensive ED assessment and evaluation of the patient, analysis of test results and completion of medical decision making process will be conducted by an additional ED providers. TRAVEL OUTSIDE OF THE [place] IN LAST 30 DAYS: No - Related Data Allergies/Adverse Reactions: aspirin [Aspirin] Allergy (Verified 03/11/20 08:31) Anaphylaxis ciprofloxacin [From Cipro] Allergy (Verified 03/11/20 08:31) Anaphylaxis clindamycin [Clindamycin] Allergy (Verified 03/11/20 08:31) hydrocodone [From Vicodin] Allergy (Verified 03/11/20 08:31) ibuprofen [From Motrin] Allergy (Verified 03/11/20 08:31) Anaphylaxis lidocaine [From Lidoderm] Allergy (Verified 03/11/20 08:31) Generalized rash tramadol HCl [From Ultram] Allergy (Verified 03/11/20 08:31) vancomycin [Vancomycin] Allergy (Verified 03/11/20 08:31) Shortness of Breath nitroglycerin [Nitroglycerin] Adverse Reaction (Intermediate, Verified 03/11/20 08:31) Joint pain Past Medical History - Social History Family history: Reviewed & Not Pertinent - Past Medical History Cardiac Medical History: Reports: Hx Congestive Heart Failure, Hx Coronary Artery Disease, Hx Heart Attack, Hx Hypertension, Hx Heart Murmur Pulmonary Medical History: Reports: Hx Asthma, Hx Pneumonia Neurological Medical History: Reports: Hx Migraine, Hx Seizures - only r/t low calcium. Denies: Hx Parkinson's Disease Endocrine Medical History: Reports: Hx Diabetes Mellitus Type 1, Hx Diabetes Mellitus Type 2 Renal/ Medical History: Reports: Hx End Stage Renal Disease - On hemodialysis --, Hx Hemodialysis - MWF, Hx Ovarian Cysts. Denies: Hx Peritoneal Dialysis Malignancy Medical History: GI Medical History: Reports: Hx Gastritis Musculoskeltal Medical History: Skin Medical History: Reports Hx Psoriasis Psychiatric Medical History: Reports: Hx Depression Traumatic Medical History: Infectious Medical History: Past Surgical History: Reports: Hx Appendectomy, Hx Cholecystectomy, Hx Vascular Surgery - Lt AV Fistula and graft; Rt AV fistula - Immunizations Immunizations up to date: Yes Hx Diphtheria, Pertussis, Tetanus Vaccination: Yes Physical Exam - Vital signs Vitals: Temp Pulse Resp BP Pulse Ox 98.4 F 91 24 H 135/80 H 100 06/07/20 14:41 06/07/20 14:41 06/07/20 14:41 06/07/20 14:41 06/07/20 14:41 Course - Vital Signs Vital signs: Temp Pulse Resp BP Pulse Ox 98.4 F 91 24 H 135/80 H 100 06/07/20 14:41 06/07/20 14:41 06/07/20 14:41 06/07/20 14:41 06/07/20 14:41 Doctor's Discharge - Discharge Referrals: HILARY HERNANDEZ MD [Primary Care Provider] - Follow up as needed
--- NOTE | 2020-06-07 15:14 | RADIOLOGY REPORT (SQ) ---
EXAM DESCRIPTION: CHEST 2 VIEWS IMAGES COMPLETED DATE/TIME: 06/07/2020 2:59 pm REASON FOR STUDY: chest pain during dialysis COMPARISON: 06/03/2020 EXAM PARAMETERS: NUMBER OF VIEWS: two views TECHNIQUE: Digital Frontal and Lateral radiographic views of the chest acquired. RADIATION DOSE: NA LIMITATIONS: none FINDINGS: LUNGS AND PLEURA: Bilateral perihilar infiltrate. No effusions or pneumothorax. MEDIASTINUM AND HILAR STRUCTURES: No masses or contour abnormalities. HEART AND VASCULAR STRUCTURES: Heart size is stable with central vascular congestion. BONES: No acute findings. HARDWARE: None in the chest. OTHER: No other significant finding. IMPRESSION: Persistent vascular congestion. No significant change from prior exam. TECHNICAL DOCUMENTATION: JOB ID: [id number] 2010 [employer]- All Rights Reserved Reading location - IP/workstation name: [email or web address]
[2020-06-07 15:43] LABS: ABSOLUTE BASOPHILS # (AUTO) 0.1 10^3/uL (0.0-0.2); ABSOLUTE EOSINOPHILS # (AUTO) 0.4 10^3/uL (0.0-0.6); ABSOLUTE LYMPHOCYTES (AUTO) 1.3 10^3/uL (0.5-4.7); ABSOLUTE MONOCYTES (AUTO) 0.8 10^3/uL (0.1-1.4); ABSOLUTE NEUT (AUTO) 4.9 10^3/uL (1.7-8.2); BASOPHILS % (AUTO) 0.8 % (0-2); EOSINOPHILS % (AUTO) 5.7 % (0-6); HEMATOCRIT 35.2 % (36.0-47.0); HEMOGLOBIN 11.3 g/dL (12.0-15.5); LYMPHOCYTES % (AUTO) 16.9 % (13-45); MEAN CORPUSCULAR HEMOGLOBIN 27.7 pg (27.0-33.4); MEAN CORPUSCULAR HGB CONC 32.1 g/dL (32.0-36.0); MEAN CORPUSCULAR VOLUME 86 fl (80-97); PLATELET COUNT 392 10^3/uL (150-450); RED BLOOD COUNT 4.09 10^6/uL (3.72-5.28); RED CELL DISTRIBUTION WIDTH 18.7 % (11.5-14.0); SEGMENTED NEUTROPHILS % (AUTO) 65.6 % (42-78); TOTAL CELLS COUNTED % (AUTO) 100 %; WHITE BLOOD COUNT 7.5 10^3/uL (4.0-10.5)
[2020-06-07 15:50] LABS: INTERNATIONAL RATION (INR) 1.03; PROTHROMBIN TIME 13.5 SEC (11.4-15.4)
[2020-06-07 15:51] LABS: PARTIAL THROMBOPLASTIN TIME 33.5 SEC (23.5-35.8)
[2020-06-07 16:00] LABS: ALBUMIN 4.6 g/dL (3.5-5.0); ALKALINE PHOSPHATASE 129 U/L (38-126); ANION GAP 13 (5-19); ASPARTATE AMINO TRANSFERASE 17 U/L (14-36); BILIRUBIN,DIRECT 0.2 mg/dL (0.0-0.4); BILIRUBIN,TOTAL 0.4 mg/dL (0.2-1.3); BLOOD UREA NITROGEN 15 mg/dL (7-20); CALCIUM 8.7 mg/dL (8.4-10.2); CARBON DIOXIDE 31 mmol/L (22-30); CHLORIDE 92 mmol/L (98-107); GLUCOSE 263 mg/dL (75-110); TOTAL PROTEIN 8.1 g/dL (6.3-8.2)
--- NOTE | 2020-06-07 17:27 | EKG REPORT ---
SEVERITY:- ABNORMAL ECG - SINUS RHYTHM FIRST DEGREE AV BLOCK PROBABLE LEFT VENTRICULAR HYPERTROPHY BORDERLINE PROLONGED QT INTERVAL : Confirmed by: Isacc Chen MD 07-Jun-2020 17:27:23
--- NOTE | 2020-06-07 18:48 | ER Document Report ---
ED General - General Chief Complaint: Breathing Difficulty Stated Complaint: CHEST PRESSURE Time Seen by Provider: 06/07/20 14:41 Primary Care Provider: HILARY HERNANDEZ MD [Primary Care Provider] - Follow up as needed Mode of Arrival: Medic TRAVEL OUTSIDE OF THE [place] IN LAST 30 DAYS: No - HPI Notes: Patient is a 34-year-old female, end-stage renal disease, who was dialyzed today. Approximately 3 hours in her dialysis she started developing low blood pressure, and she developed chest tightness. She states that it was not noticed. She is taken off of dialysis early. She is unsure as to how much fluid they took off. They sent her here for further evaluation. At the time of my evaluation the patient states her pain is entirely resolved. She denies any chest tightness or shortness of breath. She states she has been taking her medications as prescribed. She went back on her Plavix. She states she has been following with cardiology. - Related Data Allergies/Adverse Reactions: aspirin [Aspirin] Allergy (Verified 03/11/20 08:31) Anaphylaxis ciprofloxacin [From Cipro] Allergy (Verified 03/11/20 08:31) Anaphylaxis clindamycin [Clindamycin] Allergy (Verified 03/11/20 08:31) hydrocodone [From Vicodin] Allergy (Verified 03/11/20 08:31) ibuprofen [From Motrin] Allergy (Verified 03/11/20 08:31) Anaphylaxis lidocaine [From Lidoderm] Allergy (Verified 03/11/20 08:31) Generalized rash tramadol HCl [From Ultram] Allergy (Verified 03/11/20 08:31) vancomycin [Vancomycin] Allergy (Verified 03/11/20 08:31) Shortness of Breath nitroglycerin [Nitroglycerin] Adverse Reaction (Intermediate, Verified 03/11/20 08:31) Joint pain Home Medications: Clonidine, Humalog, Labetalol Past Medical History - General Information source: Patient - Social History Smoking Status: Never Smoker Family History: Reviewed & Not Pertinent, Hypertension - Past Medical History Cardiac Medical History: Reports: Hx Congestive Heart Failure, Hx Coronary Artery Disease, Hx Heart Attack, Hx Hypertension, Hx Heart Murmur Pulmonary Medical History: Reports: Hx Asthma, Hx Pneumonia Neurological Medical History: Reports: Hx Migraine, Hx Seizures - only r/t low calcium. Denies: Hx Parkinson's Disease Endocrine Medical History: Reports: Hx Diabetes Mellitus Type 1, Hx Diabetes Mellitus Type 2 Renal/ Medical History: Reports: Hx End Stage Renal Disease - On hemodialysis M-W-F, Hx Hemodialysis - MWF, Hx Ovarian Cysts. Denies: Hx Peritoneal Dialysis Malignancy Medical History: GI Medical History: Reports: Hx Gastritis Musculoskeletal Medical History: Skin Medical History: Reports Hx Psoriasis Psychiatric Medical History: Reports: Hx Depression Traumatic Medical History: Infectious Medical History: Past Surgical History: Reports: Hx Appendectomy, Hx Cholecystectomy, Hx Vascular Surgery - Lt AV Fistula and graft; Rt AV fistula - Immunizations Immunizations up to date: Yes Hx Diphtheria, Pertussis, Tetanus Vaccination: Yes Hx Pneumococcal Vaccination: 08/22/11 Review of Systems - Review of Systems Constitutional: Weakness Cardiovascular: See HPI -: Yes All other systems reviewed and negative Physical Exam - Vital signs Vitals: Temp Pulse Resp BP Pulse Ox 98.4 F 91 24 H 135/80 H 100 06/07/20 14:41 06/07/20 14:41 06/07/20 14:41 06/07/20 14:41 06/07/20 14:41 - Notes Notes: This is an obese 34-year-old female who appears her stated age, no acute distress. Vital signs reviewed, please refer to chart. Head is normocephalic, atraumatic. Pupils equal round, reactive to light. Neck is supple without meningismus. Heart is regular rate and rhythm. Lungs are clear to auscultation bilaterally. AV fistula noted in right arm, palpable thrill noted. Abdomen is soft, nontender, normoactive bowel sounds throughout. Extremities without cyanosis, clubbing. Posterior calves are nontender. Peripheral pulses are equal. Skin is warm and dry. Patient is awake, alert, neurological exam is nonfocal. Course - Re-evaluation Re-evalutation: 06/07/20 18:54 Patient presents to the emergency department for evaluation of chest tightness. It was apparent companied by low blood pressure. She was given a small amount of IV fluids. Her vital signs are stabilized. She is no longer dizzy. Her chest x-ray shows what appears to be some chronic vascular congestion, but the patient is 99 to 100% on room air, does not sound wet, and is breathing normally. Her initial troponin was indeterminate. Will repeat given her history of NSTEMI. Patient is currently stable, we will continue to monitor. 06/07/20 21:48 Patient remains chest pain-free. Her laboratory investigations revealed 2 tro ponins below the threshold for an acute IL, with a delta troponin that is only 8%. We will have her follow-up with primary care and cardiology, she is to return to the ED with worsening extending symptoms of any sort. - Vital Signs Vital signs: Temp Pulse Resp BP Pulse Ox 98.4 F 91 14 132/56 H 99 06/07/20 14:41 06/07/20 14:41 06/07/20 20:03 06/07/20 20:03 06/07/20 20:03 - Laboratory Result Diagrams: 06/07/20 15:09 06/07/20 15:09 Laboratory results interpreted by me: 06/07/20 06/07/20 15:09 15:09 Hgb 11.3 L Hct 35.2 L RDW 18.7 H Sodium 135.6 L Chloride 92 L Carbon Dioxide 31 H Creatinine 4.61 H Est GFR ( Amer) 13 L Est GFR (MDRD) Non-Af 11 L Glucose 263 H Alkaline Phosphatase 129 H - Diagnostic Test Radiology reviewed: Image reviewed, Reports reviewed Radiology results interpreted by me: 06/07/20 18:55 Chest X-Ray 06/07/20 14:46 IMPRESSION: Persistent vascular congestion. No significant change from prior exam. - EKG Interpretation by Me Additional EKG results interpreted by me: 06/07/20 18:55 Sinus mechanism with rate of 92 bpm, PVC noted. First-degree AV block. Left axis deviation. Borderline QT prolongation, actually improved from prior. Nonspecific ST changes. No other significant changes when compared to prior study. Discharge - Discharge Clinical Impression: Chest pain Qualifiers: Chest pain type: unspecified Qualified Code(s): R07.9 - Chest pain, unspecified Condition: Stable Disposition: HOME, SELF-CARE Instructions: Chest Pain of Unclear Cause ([facility]) Additional Instructions: Continue your home medications as prescribed. Follow-up with primary care next week. Return to the emergency department for worsening or new concerning symptoms of any sort. Referrals: HILARY HERNANDEZ MD [Primary Care Provider] - Follow up as needed
[2020-06-07 22:17] VITALS: BP 121/39
== END 2020-06-07 22:17 | disposition home or self-care (01) ==
LOC: ER 14:27
DX: R07.9 Chest pain, unspecified (principal); I13.2 Hypertensive heart and chronic kidney disease with heart failure and with stage 5 chronic kidney disease, or end stage renal disease; E11.22 Type 2 diabetes mellitus with diabetic chronic kidney disease; N18.6 End stage renal disease; I50.9 Heart failure, unspecified; Z99.2 Dependence on renal dialysis; Z79.4 Long term (current) use of insulin; I25.10 Atherosclerotic heart disease of native coronary artery without angina pectoris; I25.2 Old myocardial infarction; I95.9 Hypotension, unspecified
CPT/HCPCS: 36415; 71046; 80053; 83735; 84484; 85025; 85610; 85730; 93005; 93010; 99284

== ENCOUNTER 2020-07-29 09:12 | Inpatient (IN) | payer MEDICARE, MEDICAID ==
[2020-07-29 10:09] LABS: ABSOLUTE BASOPHILS # (AUTO) 0.1 10^3/uL (0.0-0.2); ABSOLUTE EOSINOPHILS # (AUTO) 0.3 10^3/uL (0.0-0.6); ABSOLUTE LYMPHOCYTES (AUTO) 1.7 10^3/uL (0.5-4.7); ABSOLUTE MONOCYTES (AUTO) 0.8 10^3/uL (0.1-1.4); ABSOLUTE NEUT (AUTO) 5.5 10^3/uL (1.7-8.2); BASOPHILS % (AUTO) 0.8 % (0-2); EOSINOPHILS % (AUTO) 3.3 % (0-6); HEMATOCRIT 35.4 % (36.0-47.0); HEMOGLOBIN 11.3 g/dL (12.0-15.5); LYMPHOCYTES % (AUTO) 20.8 % (13-45); MEAN CORPUSCULAR HEMOGLOBIN 27.8 pg (27.0-33.4); MEAN CORPUSCULAR VOLUME 87 fl (80-97); MONOCYTES % (AUTO) 9.3 % (3-13); PLATELET COUNT 271 10^3/uL (150-450); RED BLOOD COUNT 4.07 10^6/uL (3.72-5.28); RED CELL DISTRIBUTION WIDTH 18.1 % (11.5-14.0); SEGMENTED NEUTROPHILS % (AUTO) 65.8 % (42-78); TOTAL CELLS COUNTED % (AUTO) 100 %; WHITE BLOOD COUNT 8.4 10^3/uL (4.0-10.5)
[2020-07-29 10:26] LABS: ALBUMIN 4.2 g/dL (3.5-5.0); ALKALINE PHOSPHATASE 93 U/L (38-126); ANION GAP 18 (5-19); ASPARTATE AMINO TRANSFERASE 14 U/L (14-36); BILIRUBIN,DIRECT 0.4 mg/dL (0.0-0.4); BILIRUBIN,TOTAL 0.4 mg/dL (0.2-1.3); BLOOD UREA NITROGEN 85 mg/dL (7-20); CALCIUM 9.4 mg/dL (8.4-10.2); CARBON DIOXIDE 21 mmol/L (22-30); CHLORIDE 96 mmol/L (98-107); CREATINE KINASE 80 U/L (30-135); TOTAL PROTEIN 7.5 g/dL (6.3-8.2)
[2020-07-29 10:30] LABS: GLUCOSE 408 mg/dL (75-110)
[2020-07-29 10:31] LABS: POTASSIUM 6.1 mmol/L (3.6-5.0)
[2020-07-29] MEDS ORDERED: INSULIN REG, HUMAN 100 UNIT/ML 3 ML VIAL (PYX) IV ONE (10:34)
[2020-07-29] MEDS ORDERED: CALCIUM GLUCONATE 1000 MG/10 ML INJ IV ONE (10:34)
[2020-07-29] MEDS ORDERED: SODIUM POLYSTYRENE SULFONATE 15 GM/60 ML PO ONE (10:34)
[2020-07-29 10:36] LABS: CREATINE KINASE MB 1.92 ng/mL (<4.55)
[2020-07-29] MEDS ORDERED: ACETAMINOPHEN 325 MG TABLET PO ONE (10:37)
--- NOTE | 2020-07-29 10:42 | ER Document Report ---
ED General - General Chief Complaint: Chest Pain Stated Complaint: CHEST PAIN Time Seen by Provider: 07/29/20 09:33 Primary Care Provider: HILARY HERNANDEZ MD [Primary Care Provider] - Follow up as needed TRAVEL OUTSIDE OF THE [place] IN LAST 30 DAYS: No - HPI Notes: Chief complaint: Chest pain and shortness of breath History of present illness: 35-year-old female under the care of Dr. Hernandez and also seeing nephrology for hemodialysis for end-stage renal disease presents now complaining of chest pain and shortness of breath. Patient is well-known to this ED the and to me personally from prior encounters. She is chronically on 2 L of nasal O2 at home and has a history of congestive heart failure, multiple admissions for pulmonary edema/fluid overload and poor compliance with treatment for diabetes and hypertension. She dialyzes Wednesday. She denies missing any episodes of dialysis recently. She is supposed to be seen at dialysis center at 2 PM today. States that for the last 3 days she has had intermittent vague tightness in her chest and she felt a little more short of breath than usual with morning. She decided to come to the ED rather than going to dialysis. Pain is described as soreness and tightness in the center of her chest without radiation. This is not affected by breathing or movement. There is no associated nausea of, vomiting or diaphoresis. No hemoptysis. Patient is a non-smoker. She has been worked up multiple times for this discomfort in the past and it is usually related to fluid overload. - Related Data Allergies/Adverse Reactions: aspirin [Aspirin] Allergy (Verified 07/29/20 09:52) Anaphylaxis ciprofloxacin [From Cipro] Allergy (Verified 07/29/20 09:52) Anaphylaxis clindamycin [Clindamycin] Allergy (Verified 07/29/20 09:52) hydrocodone [From Vicodin] Allergy (Verified 07/29/20 09:52) ibuprofen [From Motrin] Allergy (Verified 07/29/20 09:52) Anaphylaxis lidocaine [From Lidoderm] Allergy (Verified 07/29/20 09:52) Generalized rash tramadol HCl [From Ultram] Allergy (Verified 07/29/20 09:52) vancomycin [Vancomycin] Allergy (Verified 07/29/20 09:52) Shortness of Breath nitroglycerin [Nitroglycerin] Adverse Reaction (Intermediate, Verified 07/29/20 09:52) Joint pain Past Medical History - General Information source: Patient, [facility] Records - Social History Smoking Status: Never Smoker Frequency of alcohol use: None Drug Abuse: None Lives with: Family Family History: Reviewed & Not Pertinent, Hypertension - Past Medical History Cardiac Medical History: Reports: Hx Congestive Heart Failure, Hx Coronary Artery Disease, Hx Heart Attack, Hx Hypertension, Hx Heart Murmur Pulmonary Medical History: Reports: Hx Asthma, Hx Pneumonia Neurological Medical History: Reports: Hx Migraine, Hx Seizures - only r/t low calcium. Denies: Hx Parkinson's Disease Endocrine Medical History: Reports: Hx Diabetes Mellitus Type 1, Hx Diabetes Mellitus Type 2 Renal/ Medical History: Reports: Hx End Stage Renal Disease - On hemodialysis -W-, Hx Hemodialysis - MWF, Hx Ovarian Cysts. Denies: Hx Peritoneal Dialysis Malignancy Medical History: GI Medical History: Reports: Hx Gastritis Musculoskeletal Medical History: Skin Medical History: Reports Hx Psoriasis Psychiatric Medical History: Reports: Hx Depression Traumatic Medical History: Infectious Medical History: Past Surgical History: Reports: Hx Appendectomy, Hx Cholecystectomy, Hx Vascular Surgery - Lt AV Fistula and graft; Rt AV fistula - Immunizations Immunizations up to date: Yes Hx Diphtheria, Pertussis, Tetanus Vaccination: Yes Hx Pneumococcal Vaccination: 08/22/11 Review of Systems - Review of Systems Notes: Constitutional: Negative for fever. HENT: Negative for sore throat. Eyes: Negative for visual changes. Cardiovascular: As per HPI. Respiratory: As per HPI. Gastrointestinal: Negative for abdominal pain, vomiting or diarrhea. Genitourinary: Negative for dysuria. Musculoskeletal: Negative for back pain. Skin: Negative for rash. Neurological: Negative for headaches, focal weakness or numbness. 10 point ROS negative except as marked above and in HPI. Physical Exam - Vital signs Vitals: Resp Pulse Ox 11 L 92 07/29/20 09:39 07/29/20 09:39 - Notes Notes: GENERAL: Morbidly obese female of approximately stated age appearing in no acute distress. SKIN: Good turgor no rashes. HEAD: Normocephalic atraumatic. EYES: PERRLA. EOMI. Conjunctivae and sclerae clear. EARS: CANALS AND TMS CLEAR. NOSE: CLEAR. MOUTH: Moist mucosa. Good dentition. No stridor or edema. No drooling. NECK: Supple. No masses or thyromegaly. No adenopathy. Carotids 2+ without bruits. No JVD. BACK: Symmetrical without tenderness. CHEST: Tenderness right parasternal area reproducing patient's current discomfort. Respirations unlabored. Breath sounds clear and symmetrical slightly diminished at both bases. HEART: Regular rhythm. No murmur gallop or rub. ABDOMEN: Obese. Soft nontender without masses, organomegaly or rebound. Bowel sounds normally active. No bruits. GENITALIA: Deferred. EXTREMITIES: AV fistula with positive thrill and bruit upper arm on the right. 1+ bilateral pedal edema. No calf tenderness. Cap refill less than 1.5 seconds. Dorsalis pedis and posterior tibial pulses 3+ and symmetrical. NEUROLOGICAL: GCS 15. Alert and oriented x3. Fluent speech. Cranial nerves II through XII intact. Sensorimotor and cerebellar normal. Normal tone. PSYCHIATRIC: Flat affect. Course - Re-evaluation Re-evalutation: 07/29/20 13:39 Very noncompliant obese end-stage renal patient who is diabetic and hy pertensive. She presented with chest pain today and was supposed to go to dialysis but felt she could not make it because she was short of breath. Clinically she is fluid overloaded. She is oxygenating normally. EKG shows peaking of the T waves and she has K of 6.1. We have treated her hyperkalemia acutely. She is being dialyzed in the emergency department. Her blood sugar was in 400s. She is not in DKA. Her troponin is mildly elevated here less than on prior admissions. This is felt to be due to her renal disease. We note that she had a cardiac catheterization and April of this year at [facility]. I spoke with Dr. Bennett from cardiology about her situation and he is reviewed the cath report. He notes that she has multiple lesions less than 50%. He feels that she is very unlikely to have acute myocardial injury at this point and recommends admission to a monitored bed. I spoke with Dr. Harman who is covering for Dr. Hernandez and patient will be admitted to [facility]. - Vital Signs Vital signs: Temp Pulse Resp BP Pulse Ox 12 133/62 H 98 07/29/20 11:00 07/29/20 10:01 07/29/20 11:00 - Laboratory Result Diagrams: 07/29/20 09:55 07/29/20 09:55 Laboratory results interpreted by me: 07/29/20 07/29/20 09:55 09:55 Hgb 11.3 L Hct 35.4 L RDW 18.1 H Sodium 135.1 L Potassium 6.1 H* Chloride 96 L Carbon Dioxide 21 L BUN 85 H Creatinine 11.44 H Est GFR ( Amer) 5 L Est GFR (MDRD) Non-Af 4 L Glucose 408 H* - Diagnostic Test Radiology reviewed: Reports reviewed - Portable chest x-ray per radiologist: Cardiomegaly and mild central vascular congestion. - EKG Interpretation by Me Additional EKG results interpreted by me: 07/29/20 10:45 Twelve-lead EKG from 932 hours reviewed contemporaneously by me. Indication for study: Chest pain. Normal sinus rhythm. Rate 89. First-degree AV block with WA interval of milliseconds. Intervals otherwise normal. QRS axis -15 degrees. Peaking of T waves consistent with hyperkalemia. No ST elevations. Comparison with prior tracing from 06/07/2020 shows interval development peaked T waves consistent with hyperkalemia. INTERPRETATION: FIRST-DEGREE AV BLOCK AND PEAKING OF T WAVES CONSISTENT WITH HYPERKALEMIA. Critical Care Note - Critical Care Note Total time excluding time spent on procedures (mins): 65 - Emergency treatment of critical hyperkalemia. Oral Kayexalate. IV insulin and IV calcium. Discharge - Discharge Clinical Impression: Chest pain, ESRD (end stage renal disease) on dialysis, Hyperkalemia Chest pain Qualifiers: Chest pain type: unspecified Qualified Code(s): R07.9 - Chest pain, unspecified Pulmonary edema Qualifiers: Chronicity: acute Qualified Code(s): J81.0 - Acute pulmonary edema Condition: Fair Disposition: ADMITTED INPATIENT Admitting Provider: Aer[facility] Unit Admitted: IMCU Referrals: HILARY HERNANDEZ MD [Primary Care Provider] - Follow up as needed
[2020-07-29] MEDS ORDERED: ALBUTEROL SULFATE 0.083% NEB 2.5 MG/3 ML AMPUL NEB ONE (10:45)
--- NOTE | 2020-07-29 10:50 | RADIOLOGY REPORT (SQ) ---
EXAM DESCRIPTION: CHEST SINGLE VIEW IMAGES COMPLETED DATE/TIME: 07/29/2020 10:41 am REASON FOR STUDY: cp COMPARISON: 06/07/2020 FINDINGS: One-view chest AP portable upright. Cardiomegaly with slight central vascular congestion. No pneumothorax. No evidence of pneumonia. TECHNICAL DOCUMENTATION: JOB ID: [id number] Reading location - IP/workstation name: [email or web address]
[2020-07-29 10:54] LABS: TROPONIN I 0.179 ng/mL
[2020-07-29] MEDS ORDERED: MORPHINE SULFATE 10 MG/ML INJ IV ONE (12:15)
[2020-07-29] MEDS ORDERED: ONDANSETRON HCL INJ/PF 4 MG/2 ML SDV IV ONE (12:16)
[2020-07-29] MEDS ORDERED: LORAZEPAM INJ 2 MG/1 ML VIAL IV ONE (12:56)
--- NOTE | 2020-07-29 14:41 | PDOC CONSULTATION ---
Consultation Consult Date: 07/29/20 Provider Consulted: Lazarus OLIVARES Consult reason:: ESRD for urgent HD for CHF. History of Present Illness Admission Date/PCP: HILARY HERNANDEZ MD History of Present Illness: ERICH GOODMAN is a 35 year old female with history of ESRD on hemodialysis in the background of type 1 diabetes mellitus, hypertension, congestive heart failure, history of severe noncompliance with medications dialysis and diet resulting in multiple admissions for fluid overload, chronic chest pain and apparently has been worked up including recent cardiac catheterization which I am told by the ED physician was apparently rather benign with no obstructive lesions is being admitted with history of progressive centralized chest pain and shortness of breath. Apparently his pain has been going on for the last few days but has been mild and apparently got worse over the last few hours and got worse and was planning going to [facility] for dialysis today she was redirected to come to the ER. Chest x-ray shows mild fluid congestion. No complaints of any abdominal pains nausea vomiting. No complaints of any severe headaches or focal deficits. Labs and medications were reviewed. Patient currently undergoing dialysis and is being supervised. Dialysis orders were reviewed with the treating dialysis Past Medical History Cardiac Medical History: Reports: Coronary Artery Disease, Heart Murmur, Hypertension-primary, Myocardial Infarction Pulmonary Medical History: Reports: Asthma, Pneumonia Neurological Medical History: Reports: Migraine, Seizures - only r/t low calcium Endocrine Medical History: Reports: Diabetes Mellitus Type 1 Complications of Diabetes: Reports: Autonomic Neuropathy, Nephropathy, Retinopathy Renal/ Medical History: Reports: End Stage Renal Disease - On hemodialysis M-W-F, Hypocalcemia, Hyperkalemia, Hyperphosphatemia, Secondary Hyperparathyroidism Malignancy Medical History: GI Medical History: Musculoskeltal Medical History: Skin Medical History: Reports: Psoriasis Psychiatric Medical History: Reports: Depression Infectious Medical History: Past Surgical History Past Surgical History: Reports: Appendectomy, Cholecystectomy, Dialysis Access Surgery AVF, Vascular Surgery - Lt AV Fistula and graft; Rt AV fistula Social History Lives with: Family Smoking Status: Never Smoker Frequency of Alcohol Use: Occasional Hx Recreational Drug Use: No Drugs: None Hx Prescription Drug Abuse: No Family History Parental Family History Reviewed: Yes - Negative for ESRD Children Family History Reviewed: Yes Sibling(s) Family History Reviewed.: No Medication/Allergy Home Medications: Calcium Acetate [Phoslo 667 mg Capsule] 1,334 mg PO .BIDWITHSNACKS 09/25/19 Calcium Acetate [Phoslo 667 mg Capsule] 2,001 mg PO Q8 09/25/19 Furosemide [Lasix 80 mg Tablet] 80 mg PO Q8 09/25/19 Insulin Detemir [Levemir] 35 unit SQ BID 09/25/19 Nifedipine [Procardia XL 60 mg Tablet] 60 mg PO Q12 09/25/19 Oxycodone HCl/Acetaminophen [Percocet 7.5-325 mg Tablet] 1 each PO QIDP PRN 09/25/19 Alprazolam 1 mg PO TIDP PRN 10/25/19 Metolazone 10 mg PO DAILY 10/25/19 Promethazine HCl [Phenergan 25 mg Tablet] 25 mg PO Q6HP PRN 10/25/19 Clonidine HCl [Catapres 0.1 mg Tablet] 0.1 mg PO Q8 11/29/19 Clopidogrel Bisulfate [Plavix 75 mg Tablet] 75 mg PO DAILY 11/29/19 Gabapentin Enacarbil [Horizant] 300 mg PO QPM 03/11/20 Insulin Aspart [Novolog] 12 unit SQ MEALS 03/11/20 Zolpidem Tartrate [Ambien] 10 mg PO HSP PRN 03/11/20 Omeprazole 20 mg PO DAILY 04/26/20 Atorvastatin Calcium [Lipitor 80 mg Tablet] 80 mg PO QHS 05/27/20 Oxcarbazepine 300 mg PO Q12 05/27/20 Allergies/Adverse Reactions: aspirin [Aspirin] Allergy (Verified 07/29/20 09:52) Anaphylaxis ciprofloxacin [From Cipro] Allergy (Verified 07/29/20 09:52) Anaphylaxis clindamycin [Clindamycin] Allergy (Verified 07/29/20 09:52) hydrocodone [From Vicodin] Allergy (Verified 07/29/20 09:52) ibuprofen [From Motrin] Allergy (Verified 07/29/20 09:52) Anaphylaxis lidocaine [From Lidoderm] Allergy (Verified 07/29/20 09:52) Generalized rash tramadol HCl [From Ultram] Allergy (Verified 07/29/20 09:52) vancomycin [Vancomycin] Allergy (Verified 07/29/20 09:52) Shortness of Breath nitroglycerin [Nitroglycerin] Adverse Reaction (Intermediate, Verified 07/29/20 09:52) Joint pain Review of Systems Constitutional: PRESENT: fatigue, weakness. ABSENT: anorexia, chills, fever(s), headache(s), night sweats Nose, Mouth, and Throat: ABSENT: mouth pain, sore throat Cardiovascular: PRESENT: chest pain, dyspnea on exertion, edema. ABSENT: orthropnea, palpitations Respiratory: PRESENT: dyspnea. ABSENT: cough, hemoptysis Gastrointestinal: ABSENT: abdominal pain, coffee ground emesis, diarrhea, dysphagia, heartburn, hematemesis, hematochezia, nausea, vomiting Genitourinary: ABSENT: hematuria Musculoskeletal: ABSENT: deformity Integumentary: ABSENT: pruritus Neurological: ABSENT: abnormal gait, abnormal movements, abnormal speech, confusion, focal weakness Endocrine: ABSENT: heat intolerance, polydipsia Hematologic/Lymphatic: ABSENT: easy bruising, lymphadenopathy Physical Exam Vital Signs: Temp Pulse Resp BP Pulse Ox 12 133/62 H 98 07/29/20 11:00 07/29/20 10:01 07/29/20 11:00 Intake & Output 07/28/20 07/29/20 07/30/20 06:59 06:59 06:59 Weight 111 kg General appearance: PRESENT: mild distress Eye exam: PRESENT: EOMI. ABSENT: scleral icterus Ear exam: PRESENT: normal external ear exam Mouth exam: PRESENT: moist, neck supple Neck exam: ABSENT: lymphadenopathy, meningismus, tenderness, thyromegaly, tracheal deviation Respiratory exam: PRESENT: clear to auscultation freddy, decreased breath sounds. ABSENT: crackles Cardiovascular exam: PRESENT: +S1, +S2 GI/Abdominal exam: PRESENT: normal bowel sounds, soft. ABSENT: organomegaly, tenderness Extremities exam: PRESENT: +2 edema Neurological exam: PRESENT: alert, awake, oriented to person, oriented to place, oriented to time Psychiatric exam: PRESENT: appropriate affect Skin exam: ABSENT: erythema, rash Results Laboratory Results: 07/29/20 09:55 07/29/20 09:55 07/29/20 07/29/20 09:55 09:55 WBC 8.4 RBC 4.07 Hgb 11.3 L Hct 35.4 L MCV 87 MCH 27.8 MCHC 32.0 RDW 18.1 H Plt Count 271 Seg Neutrophils % 65.8 Sodium 135.1 L Potassium 6.1 H* Chloride 96 L Carbon Dioxide 21 L Anion Gap 18 BUN 85 H Creatinine 11.44 H Est GFR ( Amer) 5 L Glucose 408 H* Calcium 9.4 Total Bilirubin 0.4 AST 14 Alkaline Phosphatase 93 Total Protein 7.5 Albumin 4.2 07/29/20 07/29/20 09:55 09:55 Creatine Kinase 80 CK-MB (CK-2) 1.92 Troponin I 0.179 Assessment & Plan - Diagnosis (1) Chest pain Qualifiers: Chest pain type: unspecified Qualified Code(s): R07.9 - Chest pain, unspecified Plan: Patient being evaluated and managed by the ED physician as she is being transitioned to her primary care doctor Areli/covering physician. (2) ESRD on dialysis Plan: Patient currently undergoing urgent dialysis in the ER which is supervised. Patient tolerating dialysis well without any distress. Vital signs are stable with blood pressures in the 150 systolic. Plan to remove 3-4 L of fluid as tolerated. Dialysis orders were reviewed with treating dialysis nurse. Labs and medications were reviewed. Discussed hyperkalemia again with the patient as she has no known to be noncompliant with her diet. (3) Hyperkalemia Plan: Should respond to dialysis. Monitor. (4) Acute diastolic (congestive) heart failure Plan: Currently decompensated and should respond to fluid removal on current urgent d ialysis. Monitor. Advised compliance with diet and medications and missing dialysis treatments. (6) Hypertension Qualifiers: Hypertension type: unspecified Qualified Code(s): I10 - Essential (primary) hypertension Plan: To respond further to hemodialysis and fluid removal. Monitor. (7) Morbid obesity Plan: Status quo.
[2020-07-29] MEDS ORDERED: DIPHENHYDRAMINE HCL 50 MG/ML VIAL IV ONE (14:45)
[2020-07-29] MEDS ORDERED: ALPRAZOLAM 0.5 MG TABLET PO PRN (19:15)
[2020-07-29] MEDS ORDERED: OXYCODONE HCL IR 5 MG TABLET PO PRN (19:29)
[2020-07-29] MEDS ORDERED: ZOLPIDEM TARTRATE 5 MG TABLET PO PRN (19:30)
[2020-07-29] MEDS ORDERED: INSULIN GLARGINE,HUM.REC.ANLOG 1,000 UNIT/10 ML VIAL (PYX) SUBCUT PRN (19:34)
[2020-07-29] MEDS ORDERED: INSULIN GLARGINE,HUM.REC.ANLOG 1,000 UNIT/10 ML VIAL SUBCUT ONE (19:45)
[2020-07-29] MEDS ORDERED: INSULIN LISPRO 100 UNIT/ML 3 ML VIAL ONE (21:27)
[2020-07-29] MEDS: ATORVASTATIN CALCIUM 80 MG TABLET PO SCH (21:30)
[2020-07-29] MEDS: FUROSEMIDE 80 MG TABLET PO SCH (21:30)
[2020-07-29] MEDS: NIFEDIPINE 30 MG TAB.ER.24 PO SCH (21:31)
[2020-07-29] MEDS: CLONIDINE HCL 0.1 MG TABLET PO SCH (21:31)
[2020-07-29] MEDS: CALCIUM ACETATE 667 MG CAPSULE PO SCH ×2 (21:31→21:48)
[2020-07-29] MEDS: OXCARBAZEPINE 150 MG TABLET PO SCH (21:48)
[2020-07-29] MEDS: INSULIN LISPRO 100 UNIT/ML 3 ML VIAL SUBCUT SCH (21:51)
[2020-07-29] MEDS ORDERED: INSULIN LISPRO 100 UNIT/ML 3 ML VIAL SUBCUT ONE (22:00)
[2020-07-29] MEDS ORDERED: DEXTROSE 40% GEL 15 GM TUBE X 2 PO PRN (22:00)
[2020-07-29] MEDS ORDERED: GLUCAGON,HUMAN RECOMB 1 MG INJ IM PRN (22:00)
[2020-07-29] MEDS ORDERED: DEXTROSE 40% GEL 15 GM TUBE PO PRN (22:00)
[2020-07-29] MEDS ORDERED: DEXTROSE 50%-WATER SYRINGE 25 GM/50 ML DOSE IV PRN (22:00)
[2020-07-29] MEDS ORDERED: DEXTROSE 50%-WATER SYRINGE 12.5 GM/25 ML DOSE IV PRN (22:00)
[2020-07-30] MEDS ORDERED: INSULIN LISPRO 100 UNIT/ML 3 ML VIAL SUBCUT ONE (02:15)
[2020-07-30] MEDS: PANTOPRAZOLE SODIUM 20 MG TABLET.DR PO SCH (06:45)
[2020-07-30] MEDS: CLONIDINE HCL 0.1 MG TABLET PO SCH ×3 (06:45→21:51)
[2020-07-30] MEDS: OXYCODONE HCL IR 5 MG TABLET PO PRN ×3 (06:45→21:53)
[2020-07-30] MEDS: PROMETHAZINE HCL 25 MG TABLET PO PRN (06:46)
[2020-07-30] MEDS: OXYCODONE-ACETAMINOPHEN 5-325 MG TABLET PO PRN ×3 (06:46→21:52)
[2020-07-30] MEDS: FUROSEMIDE 80 MG TABLET PO SCH ×3 (06:46→21:51)
[2020-07-30] MEDS: CALCIUM ACETATE 667 MG CAPSULE PO SCH ×3 (08:39→21:51)
[2020-07-30] MEDS: INSULIN LISPRO 100 UNIT/ML 3 ML VIAL SUBCUT SCH ×8 (08:40→21:23)
--- NOTE | 2020-07-30 08:47 | EKG REPORT ---
SEVERITY:- ABNORMAL ECG - SINUS RHYTHM FIRST DEGREE AV BLOCK PROBABLE LEFT VENTRICULAR HYPERTROPHY BORDERLINE PROLONGED QT INTERVAL : Confirmed by: Isacc Chen MD 30-Jul-2020 08:46:46
--- NOTE | 2020-07-30 08:47 | EKG REPORT ---
SEVERITY:- ABNORMAL ECG - SINUS TACHYCARDIA PROBABLE LEFT ATRIAL ABNORMALITY LVH WITH SECONDARY REPOLARIZATION ABNORMALITY : Confirmed by: Isacc Chen MD 30-Jul-2020 08:46:40
[2020-07-30] MEDS ORDERED: INSULIN GLARGINE,HUM.REC.ANLOG 1,000 UNIT/10 ML VIAL SUBCUT SCH (10:00)
[2020-07-30] MEDS ORDERED: CALCIUM ACETATE 667 MG CAPSULE PO PRN (10:00)
[2020-07-30] MEDS: METOLAZONE 5 MG TABLET PO SCH ×2 (11:08→18:50)
[2020-07-30] MEDS: OXCARBAZEPINE 150 MG TABLET PO SCH ×2 (11:11→21:51)
[2020-07-30] MEDS: NIFEDIPINE 30 MG TAB.ER.24 PO SCH ×2 (11:11→21:50)
[2020-07-30] MEDS: CLOPIDOGREL BISULFATE 75 MG TABLET PO SCH (11:12)
[2020-07-30] MEDS: GABAPENTIN 300 MG CAPSULE PO SCH (18:50)
--- NOTE | 2020-07-30 20:18 | PDOC H&P ---
History of Present Illness Admission Date/PCP: 07/29/20 14:55 HILARY HERNANDEZ MD History of Present Illness: ERICH GOODMAN is a 35 year old female,She has end-stage renal disease on maint enance hemodialysis she presented with acute pulmonary edema requiring immediate hemodialysis. She had cardiac catheterization done about 1 month ago she was found to have nonobstructive coronary arteries, patient has presented multiple times with acute pulmonary edema requiring immediate hemodialysis, she was also found to have hyperglycemia, the serum glucose was above 400 Past Medical History Cardiac Medical History: Reports: Hypertension, Heart Murmur Pulmonary Medical History: Reports: Asthma, Pneumonia Neurological Medical History: Reports: Migraine, Seizures - only r/t low calcium Endocrine Medical History: Reports: Diabetes Mellitus Type 1 Renal/ Medical History: Reports: End Stage Renal Disease - On hemodialysis -W- Malignancy Medical History: GI Medical History: Musculoskeltal Medical History: Skin Medical History: Reports: Psoriasis Psychiatric Medical History: Reports: Depression Hematology: Reports: Anemia Infectious Medical History: Past Surgical History Past Surgical History: Reports: Appendectomy, Cholecystectomy, Vascular Surgery - Lt AV Fistula and graft; Rt AV fistula Social History Lives with: Family Smoking Status: Never Smoker Electronic Cigarette use?: No Frequency of Alcohol Use: Occasional Hx Recreational Drug Use: No Drugs: None Hx Prescription Drug Abuse: No Family History Family History: Reviewed & Not Pertinent, Hypertension Parental Family History Reviewed: Yes Children Family History Reviewed: Yes Sibling(s) Family History Reviewed.: Yes Medication/Allergy Home Medications: Calcium Acetate [Phoslo 667 mg Capsule] 1,334 mg PO .BIDWITHSNACKS 09/25/19 Calcium Acetate [Phoslo 667 mg Capsule] 2,001 mg PO Q8 09/25/19 Furosemide [Lasix 80 mg Tablet] 80 mg PO Q8 09/25/19 Insulin Detemir [Levemir] 35 unit SQ BID 09/25/19 Nifedipine [Procardia XL 60 mg Tablet] 60 mg PO Q12 09/25/19 Oxycodone HCl/Acetaminophen [Percocet 7.5-325 mg Tablet] 1 each PO QIDP PRN 09/25/19 Alprazolam 1 mg PO TIDP PRN 10/25/19 Metolazone 10 mg PO BID 10/25/19 Promethazine HCl [Phenergan 25 mg Tablet] 25 mg PO Q6HP PRN 10/25/19 Clonidine HCl [Catapres 0.1 mg Tablet] 0.1 mg PO Q8 11/29/19 Clopidogrel Bisulfate [Plavix 75 mg Tablet] 75 mg PO DAILY 11/29/19 Gabapentin Enacarbil [Horizant] 300 mg PO QPM 03/11/20 Insulin Aspart [Novolog] 12 unit SQ MEALS 03/11/20 Zolpidem Tartrate [Ambien] 10 mg PO HSP PRN 03/11/20 Omeprazole 20 mg PO DAILY 04/26/20 Atorvastatin Calcium [Lipitor 80 mg Tablet] 80 mg PO QHS 05/27/20 Oxcarbazepine 300 mg PO Q12 05/27/20 Linaclotide [Linzess] 290 mcg PO DAILY 07/29/20 Allergies/Adverse Reactions: aspirin [Aspirin] Allergy (Verified 07/29/20 09:52) Anaphylaxis ciprofloxacin [From Cipro] Allergy (Verified 07/29/20 09:52) Anaphylaxis clindamycin [Clindamycin] Allergy (Verified 07/29/20 09:52) hydrocodone [From Vicodin] Allergy (Verified 07/29/20 09:52) ibuprofen [From Motrin] Allergy (Verified 07/29/20 09:52) Anaphylaxis lidocaine [From Lidoderm] Allergy (Verified 07/29/20 09:52) Generalized rash tramadol HCl [From Ultram] Allergy (Verified 07/29/20 09:52) vancomycin [Vancomycin] Allergy (Verified 07/29/20 09:52) Shortness of Breath nitroglycerin [Nitroglycerin] Adverse Reaction (Intermediate, Verified 07/29/20 09:52) Joint pain Review of Systems Constitutional: ABSENT: chills, fever(s), headache(s), weight gain, weight loss Eyes: ABSENT: visual disturbances Ears: ABSENT: hearing changes Cardiovascular: PRESENT: dyspnea on exertion, edema. ABSENT: chest pain, orthropnea, palpitations Respiratory: PRESENT: dyspnea. ABSENT: cough, hemoptysis Gastrointestinal: ABSENT: abdominal pain, constipation, diarrhea, hematemesis, hematochezia, nausea, vomiting Genitourinary: ABSENT: dysuria, hematuria Musculoskeletal: ABSENT: joint swelling Integumentary: ABSENT: rash, wounds Neurological: ABSENT: abnormal gait, abnormal speech, confusion, dizziness, focal weakness, syncope Psychiatric: ABSENT: anxiety, depression, homidical ideation, suicidal ideation Endocrine: ABSENT: cold intolerance, heat intolerance, menstrual abnormalities, polydipsia, polyuria Hematologic/Lymphatic: ABSENT: easy bleeding, easy bruising, lymphadenopathy Physical Exam Vital Signs: Temp Pulse Resp BP Pulse Ox 97.9 F 83 18 133/86 H 100 07/30/20 11:52 07/30/20 19:00 07/30/20 11:52 07/30/20 11:52 07/30/20 11:52 Intake & Output 07/29/20 07/30/20 07/31/20 06:59 06:59 06:59 Intake Total 482 732 Output Total 3600 Balance -3118 732 Weight 119.9 kg General appearance: PRESENT: obese Head exam: PRESENT: atraumatic, normocephalic Eye exam: PRESENT: PERRLA Ear exam: PRESENT: normal external ear exam Neck exam: PRESENT: full ROM Respiratory exam: PRESENT: rhonchi Cardiovascular exam: PRESENT: RRR, +S1, +S2 Vascular exam: PRESENT: normal capillary refill GI/Abdominal exam: PRESENT: normal bowel sounds, soft Rectal exam: PRESENT: deferred Neurological exam: PRESENT: alert, CN II-XII grossly intact Psychiatric exam: PRESENT: appropriate affect, normal mood Skin exam: PRESENT: dry, intact, warm Results Laboratory Results: 07/29/20 09:55 07/29/20 09:55 07/29/20 07/29/20 07/29/20 09:55 09:55 12:49 Creatine Kinase 80 CK-MB (CK-2) 1.92 Troponin I 0.179 0.177 Assessment & Plan - Diagnosis (1) Acute pulmonary edema Is this a current diagnosis for this admission?: Yes Plan: Patient was emergently dialyzed, the pulmonary edema has resolved (2) DM (diabetes mellitus), type 1 with hyperosmolarity Qualifiers: Diabetes mellitus complication detail: without coma Qualified Code(s): E10.69 - Type 1 diabetes mellitus with other specified complication Is this a current diagnosis for this admission?: Yes Plan: Continue long acting insulin ,sliding scale (3) End stage renal disease Is this a current diagnosis for this admission?: Yes Plan: Per nephrology - Time Time Spent: Greater than 70 Minutes Medications reviewed and adjusted accordingly: Yes Anticipated Discharge Disposition: Home, Self Care Anticipated Discharge Timeframe: within 72 hours
[2020-07-30] MEDS ORDERED: INSULIN GLARGINE,HUM.REC.ANLOG 1,000 UNIT/10 ML VIAL (PYX) SUBCUT ONE (21:35)
[2020-07-30] MEDS: ATORVASTATIN CALCIUM 80 MG TABLET PO SCH (21:51)
[2020-07-30] MEDS: INSULIN GLARGINE,HUM.REC.ANLOG 1,000 UNIT/10 ML VIAL SUBCUT SCH (21:52)
[2020-07-31] MEDS: PANTOPRAZOLE SODIUM 20 MG TABLET.DR PO SCH (05:42)
[2020-07-31] MEDS: CALCIUM ACETATE 667 MG CAPSULE PO SCH ×3 (05:42→21:24)
[2020-07-31] MEDS: FUROSEMIDE 80 MG TABLET PO SCH ×3 (05:45→21:25)
[2020-07-31] MEDS: CLONIDINE HCL 0.1 MG TABLET PO SCH ×3 (05:45→21:26)
[2020-07-31 06:00] LABS: HEMATOCRIT 32.8 % (36.0-47.0); HEMOGLOBIN 10.8 g/dL (12.0-15.5); MEAN CORPUSCULAR HEMOGLOBIN 28.3 pg (27.0-33.4); MEAN CORPUSCULAR VOLUME 86 fl (80-97); PLATELET COUNT 257 10^3/uL (150-450); RED BLOOD COUNT 3.83 10^6/uL (3.72-5.28); RED CELL DISTRIBUTION WIDTH 18.5 % (11.5-14.0); WHITE BLOOD COUNT 7.6 10^3/uL (4.0-10.5)
[2020-07-31 06:27] LABS: ANION GAP 18 (5-19); BLOOD UREA NITROGEN 84 mg/dL (7-20); CALCIUM 9.1 mg/dL (8.4-10.2); CARBON DIOXIDE 22 mmol/L (22-30); CHLORIDE 94 mmol/L (98-107); GLUCOSE 308 mg/dL (75-110)
[2020-07-31] MEDS: INSULIN LISPRO 100 UNIT/ML 3 ML VIAL SUBCUT SCH ×7 (07:51→21:25)
[2020-07-31] MEDS: INSULIN GLARGINE,HUM.REC.ANLOG 1,000 UNIT/10 ML VIAL SUBCUT SCH ×2 (11:30→21:26)
[2020-07-31] MEDS: METOLAZONE 5 MG TABLET PO SCH ×2 (11:31→17:20)
[2020-07-31] MEDS: CLOPIDOGREL BISULFATE 75 MG TABLET PO SCH (11:31)
[2020-07-31] MEDS: NIFEDIPINE 30 MG TAB.ER.24 PO SCH ×2 (11:31→21:25)
[2020-07-31] MEDS: OXCARBAZEPINE 150 MG TABLET PO SCH ×2 (11:31→21:25)
--- NOTE | 2020-07-31 12:21 | PDOC PROGRESS REPORT ---
Subjective Progress Note for:: 07/31/20 Reason For Visit: Patient seen on HD today. Looks very comfortable playing in her cell phone while underogoing dialysis.Denies any chest pains, dyspnea. Labs and medications were reviewed with her and the treating RN. Physical Exam Vital Signs: Temp Pulse Resp BP Pulse Ox 98.4 F 93 18 132/78 H 100 07/31/20 11:34 07/31/20 11:34 07/31/20 11:34 07/31/20 11:34 07/31/20 11:34 Intake & Output 07/30/20 07/31/20 08/01/20 06:59 06:59 06:59 Intake Total 482 1374 Output Total 3600 4300 Balance -3118 1374 -4300 Weight 119.9 kg 123.2 kg General appearance: PRESENT: no acute distress Respiratory exam: PRESENT: clear to auscultation freddy, decreased breath sounds. ABSENT: crackles Cardiovascular exam: PRESENT: +S1, +S2 GI/Abdominal exam: PRESENT: normal bowel sounds, soft. ABSENT: organomegaly, tenderness Extremities exam: ABSENT: pedal edema Neurological exam: PRESENT: alert, awake, oriented to person, oriented to place Psychiatric exam: PRESENT: appropriate affect Results Laboratory Results: 07/31/20 05:18 07/31/20 05:18 07/31/20 07/31/20 05:18 05:18 WBC 7.6 RBC 3.83 Hgb 10.8 L Hct 32.8 L MCV 86 MCH 28.3 MCHC 33.0 RDW 18.5 H Plt Count 257 Sodium 134.1 L Potassium 5.0 Chloride 94 L Carbon Dioxide 22 Anion Gap 18 BUN 84 H Creatinine 11.08 H Est GFR ( Amer) 5 L Glucose 308 H Calcium 9.1 07/29/20 07/29/20 07/29/20 09:55 09:55 12:49 Creatine Kinase 80 CK-MB (CK-2) 1.92 Troponin I 0.179 0.177 Assessment & Plan - Diagnosis (1) Chest pain Qualifiers: Chest pain type: unspecified Qualified Code(s): R07.9 - Chest pain, unspeci fied Plan: Resolved.As per Dr Mark (2) ESRD on dialysis Plan: Patient currently undergoing urgent dialysis which is supervised. Patient tolerating dialysis well without any distress. Vital signs are stable with blood pressures in the 150 systolic. Plan to remove 2-3 L of fluid as tolerated. Dialysis orders were reviewed with treating dialysis nurse. Labs and medications were reviewed. (3) Hyperkalemia Plan: Should respond to dialysis. Monitor. (4) Acute diastolic (congestive) heart failure Plan: Currently compensated and respond to fluid removal on earlier dialysis. Monitor. Advised compliance with diet and medications and missing dialysis treatments. (5) Diabetes mellitus type 1 with complications Plan: Uncontrolled. (6) Hypertension Qualifiers: Hypertension type: unspecified Qualified Code(s): I10 - Essential (primary) hypertension Plan: Well controlled now. (7) Morbid obesity Plan: Status quo.
--- NOTE | 2020-07-31 17:18 | PDOC PROGRESS REPORT ---
Subjective Progress Note for:: 07/31/20 Subjective:: Patient seen by the bedside, she was dialyzed today, it seemed that she may have fistula problems Reason For Visit: CHEST PAIN,PULMONARY CONGESTION Physical Exam Vital Signs: Temp Pulse Resp BP Pulse Ox 98.1 F 82 13 126/68 H 99 07/31/20 16:18 07/31/20 16:18 07/31/20 16:18 07/31/20 16:18 07/31/20 16:18 Intake & Output 07/30/20 07/31/20 08/01/20 06:59 06:59 06:59 Intake Total 482 1374 Output Total 3600 4300 Balance -3118 1374 -4300 Weight 119.9 kg 123.2 kg General appearance: PRESENT: no acute distress Eye exam: PRESENT: PERRLA Respiratory exam: PRESENT: clear to auscultation freddy Cardiovascular exam: PRESENT: +S1, +S2 GI/Abdominal exam: PRESENT: soft Neurological exam: PRESENT: alert Results Laboratory Results: 07/31/20 05:18 07/31/20 05:18 07/31/20 07/31/20 05:18 05:18 WBC 7.6 RBC 3.83 Hgb 10.8 L Hct 32.8 L MCV 86 MCH 28.3 MCHC 33.0 RDW 18.5 H Plt Count 257 Sodium 134.1 L Potassium 5.0 Chloride 94 L Carbon Dioxide 22 Anion Gap 18 BUN 84 H Creatinine 11.08 H Est GFR ( Amer) 5 L Glucose 308 H Calcium 9.1 07/29/20 07/29/20 07/29/20 09:55 09:55 12:49 Creatine Kinase 80 CK-MB (CK-2) 1.92 Troponin I 0.179 0.177 Assessment & Plan - Diagnosis (1) Acute pulmonary edema Is this a current diagnosis for this admission?: Yes (2) DM (diabetes mellitus), type 1 with hyperosmolarity Qualifiers: Diabetes mellitus complication detail: without coma Qualified Code(s): E 10.69 - Type 1 diabetes mellitus with other specified complication Is this a current diagnosis for this admission?: Yes Plan: Continue present treatment (3) End stage renal disease Is this a current diagnosis for this admission?: Yes - Time Time Spent with patient: 25-34 minutes Level of Care: IMCU Medications reviewed and adjusted accordingly: Yes Anticipated discharge: Home Anticipated DC Timeframe: within 48 hours
[2020-07-31] MEDS: GABAPENTIN 300 MG CAPSULE PO SCH (17:21)
[2020-07-31] MEDS: ATORVASTATIN CALCIUM 80 MG TABLET PO SCH (21:25)
[2020-07-31] MEDS: OXYCODONE-ACETAMINOPHEN 5-325 MG TABLET PO PRN (21:26)
[2020-07-31] MEDS: OXYCODONE HCL IR 5 MG TABLET PO PRN (21:28)
[2020-08-01] MEDS: OXYCODONE-ACETAMINOPHEN 5-325 MG TABLET PO PRN ×2 (03:51→20:42)
[2020-08-01] MEDS: OXYCODONE HCL IR 5 MG TABLET PO PRN (03:51)
[2020-08-01] MEDS: PROMETHAZINE HCL 25 MG TABLET PO PRN (03:51)
[2020-08-01] MEDS: CALCIUM ACETATE 667 MG CAPSULE PO SCH ×3 (05:25→21:10)
[2020-08-01] MEDS: FUROSEMIDE 80 MG TABLET PO SCH ×3 (05:25→21:09)
[2020-08-01] MEDS: CLONIDINE HCL 0.1 MG TABLET PO SCH ×3 (05:25→21:09)
[2020-08-01] MEDS: PANTOPRAZOLE SODIUM 20 MG TABLET.DR PO SCH (05:25)
[2020-08-01] MEDS: INSULIN LISPRO 100 UNIT/ML 3 ML VIAL SUBCUT SCH ×7 (07:48→21:12)
[2020-08-01] MEDS: NIFEDIPINE 30 MG TAB.ER.24 PO SCH ×2 (09:50→21:09)
[2020-08-01] MEDS: OXCARBAZEPINE 150 MG TABLET PO SCH ×2 (09:52→21:09)
[2020-08-01] MEDS: INSULIN GLARGINE,HUM.REC.ANLOG 1,000 UNIT/10 ML VIAL SUBCUT SCH ×2 (09:53→21:12)
[2020-08-01] MEDS: CLOPIDOGREL BISULFATE 75 MG TABLET PO SCH (09:53)
[2020-08-01] MEDS: METOLAZONE 5 MG TABLET PO SCH ×2 (09:53→17:02)
[2020-08-01] MEDS ORDERED: DIPHENHYDRAMINE HCL 25 MG CAPSULE PO PRN (11:21)
[2020-08-01] MEDS: GABAPENTIN 300 MG CAPSULE PO SCH (17:04)
--- NOTE | 2020-08-01 20:32 | PDOC PROGRESS REPORT ---
Subjective Progress Note for:: 08/01/20 Subjective:: Patient seen by the bedside, she was dialyzed today, it seemed that she may have fistula problems Reason For Visit: CHEST PAIN,PULMONARY CONGESTION Physical Exam Vital Signs: Temp Pulse Resp BP Pulse Ox 97.9 F 85 19 133/64 H 100 08/01/20 11:02 08/01/20 15:12 08/01/20 15:12 08/01/20 15:12 08/01/20 15:12 Intake & Output 07/31/20 08/01/20 08/02/20 06:59 06:59 06:59 Intake Total 1374 1214 1101 Output Total 4300 Balance 1374 -3086 1101 Weight 123.2 kg 120.3 kg General appearance: PRESENT: no acute distress Eye exam: PRESENT: PERRLA Respiratory exam: PRESENT: clear to auscultation freddy Cardiovascular exam: PRESENT: +S1, +S2 GI/Abdominal exam: PRESENT: soft Neurological exam: PRESENT: alert Results Laboratory Results: 07/31/20 05:18 07/31/20 05:18 07/29/20 07/29/20 07/29/20 09:55 09:55 12:49 Creatine Kinase 80 CK-MB (CK-2) 1.92 Troponin I 0.179 0.177 Assessment & Plan - Diagnosis (1) Acute pulmonary edema Is this a current diagnosis for this admission?: Yes (2) DM (diabetes mellitus), type 1 with hyperosmolarity Qualifiers: Diabetes mellitus complication detail: without coma Qualified Code(s): E10.69 - Type 1 diabetes mellitus with other specified complication Is this a current diagnosis for this admission?: Yes Plan: Continue present treatment (3) End stage renal disease Is this a current diagnosis for this admission?: Yes - Time Time Spent with patient: 15-24 minutes Level of Care: IMCU Medications reviewed and adjusted accordingly: Yes Anticipated discharge: Home - Inpatient Certification Based on my medical assessment, after consideration of the patient's comorbidities, presenting symptoms, or acuity I expect that the services needed warrant INPATIENT care.: Yes I certify that my determination is in accordance with my understanding of Medicare's requirements for reasonable and necessary INPATIENT services [42 CFR 412.3e].: Yes
[2020-08-01] MEDS: ATORVASTATIN CALCIUM 80 MG TABLET PO SCH (21:09)
[2020-08-02] MEDS: PROMETHAZINE HCL 25 MG TABLET PO PRN (01:50)
[2020-08-02] MEDS: OXYCODONE HCL IR 5 MG TABLET PO PRN ×2 (01:56→13:38)
[2020-08-02] MEDS: FUROSEMIDE 80 MG TABLET PO SCH ×2 (05:31→13:34)
[2020-08-02] MEDS: CALCIUM ACETATE 667 MG CAPSULE PO SCH ×2 (05:31→13:35)
[2020-08-02] MEDS: PANTOPRAZOLE SODIUM 20 MG TABLET.DR PO SCH (05:31)
[2020-08-02] MEDS: CLONIDINE HCL 0.1 MG TABLET PO SCH ×2 (05:31→13:34)
[2020-08-02 06:47] LABS: HEMATOCRIT 34.6 % (36.0-47.0); HEMOGLOBIN 11.4 g/dL (12.0-15.5); MEAN CORPUSCULAR HEMOGLOBIN 27.9 pg (27.0-33.4); MEAN CORPUSCULAR HGB CONC 32.8 g/dL (32.0-36.0); MEAN CORPUSCULAR VOLUME 85 fl (80-97); PLATELET COUNT 263 10^3/uL (150-450); RED BLOOD COUNT 4.06 10^6/uL (3.72-5.28); RED CELL DISTRIBUTION WIDTH 18.2 % (11.5-14.0); WHITE BLOOD COUNT 6.7 10^3/uL (4.0-10.5)
[2020-08-02 07:08] LABS: ANION GAP 16 (5-19); BLOOD UREA NITROGEN 79 mg/dL (7-20); CALCIUM 9.8 mg/dL (8.4-10.2); CARBON DIOXIDE 27 mmol/L (22-30); CHLORIDE 93 mmol/L (98-107); GLUCOSE 110 mg/dL (75-110); POTASSIUM 5.6 mmol/L (3.6-5.0)
[2020-08-02] MEDS ORDERED: DIPHENHYDRAMINE HCL 50 MG/ML VIAL IV ONE (09:45)
[2020-08-02] MEDS: INSULIN LISPRO 100 UNIT/ML 3 ML VIAL SUBCUT SCH ×6 (11:10→17:08)
[2020-08-02 11:13] VITALS: BP 149/77
[2020-08-02] MEDS: CLOPIDOGREL BISULFATE 75 MG TABLET PO SCH (11:14)
[2020-08-02] MEDS: INSULIN GLARGINE,HUM.REC.ANLOG 1,000 UNIT/10 ML VIAL SUBCUT SCH (11:14)
[2020-08-02] MEDS: NIFEDIPINE 30 MG TAB.ER.24 PO SCH (11:15)
[2020-08-02] MEDS: OXCARBAZEPINE 150 MG TABLET PO SCH (11:15)
[2020-08-02] MEDS: METOLAZONE 5 MG TABLET PO SCH ×2 (11:16→17:07)
--- NOTE | 2020-08-02 13:25 | PDOC PROGRESS REPORT ---
Subjective Progress Note for:: 08/02/20 Subjective:: I am seeing the patient on dialysis this morning. She tells me that she is breaking out around her mouth although I could not see any rashes. Wondering if she has some reaction to the mask. She said she has some slight shortness of breath. She is also complaining of right index finger swelling. Other than that she is tolerating dialysis without much issues. Otherwise stable. Our dialysis nurse is telling me that there are some issues with her AV fistula. She last went to the vascular access center in [place] couple weeks ago for which she had angioplasty which might need to be reevaluated again after she gets discharged at this time. [facility] is trying to arrange an appointment for her at the vascular access center. Reason For Visit: CHEST PAIN,PULMONARY CONGESTION Physical Exam Vital Signs: Temp Pulse Resp BP Pulse Ox 97.7 F 91 14 155/84 H 100 08/02/20 03:16 08/02/20 07:00 08/02/20 03:16 08/02/20 03:16 08/02/20 03:16 Intake & Output 08/01/20 08/02/20 08/03/20 06:59 06:59 06:59 Intake Total 1214 1621 Output Total 4300 Balance -3086 1621 Weight 120.3 kg 126 kg Vitals during dialysis: Blood pressure 151/85, heart rate of 82, blood flow rate of 150 mL/min and dialysate flow rate of 800 mL/min. Exam: General appearance: PRESENT: no acute distress, cooperative, well-developed, well-nourished Head exam: PRESENT: atraumatic, normocephalic Eye exam: PRESENT: conjunctiva slightly pale PERRLA. ABSENT: scleral icterus Neck exam: ABSENT: JVD Respiratory exam: PRESENT: Diminished breath sounds. ABSENT: crackles, rales, rhonchi, unlabored, wheezes Cardiovascular exam: PRESENT: Regular rate rhythm -+S1, +S2. ABSENT: diastolic murmur, systolic murmur GI/Abdominal exam: PRESENT: normal bowel sounds, soft. ABSENT: guarding, mass, tenderness Extremities exam: ABSENT: No edema Neurological exam: PRESENT: alert, awake, oriented to person, place and time. Skin exam: PRESENT: dry, warm, Cardiovascular exam: PRESENT: +S1, +S2 GI/Abdominal exam: PRESENT: normal bowel sounds, soft. ABSENT: organomegaly, tenderness Results Laboratory Results: 08/02/20 05:44 08/02/20 05:44 08/02/20 08/02/20 05:44 05:44 WBC 6.7 RBC 4.06 Hgb 11.4 L Hct 34.6 L MCV 85 MCH 27.9 MCHC 32.8 RDW 18.2 H Plt Count 263 Sodium 136.4 L Potassium 5.6 H Chloride 93 L Carbon Dioxide 27 Anion Gap 16 BUN 79 H Creatinine 11.12 H Est GFR ( Amer) 5 L Glucose 110 Calcium 9.8 07/29/20 07/29/20 07/29/20 09:55 09:55 12:49 Creatine Kinase 80 CK-MB (CK-2) 1.92 Troponin I 0.179 0.177 Assessment & Plan - Diagnosis (1) ESRD on dialysis Is this a current diagnosis for this admission?: Yes Plan: We will do dialysis today for 3 hours, using the patient's left arm AV fistula, with 2 potassium bath, blood flow rate of 450 mL per minute, dialysate flow rate of 800 mL per minute, ultrafiltration 4 to 5 L as tolerated, no heparin and no Epogen. Patient is being monitored throughout dialysis treatment. Ult rafiltration adjusted accordingly. (2) Hyperkalemia Is this a current diagnosis for this admission?: Yes Plan: Should be taken cared of during dialysis today. (3) Acute diastolic (congestive) heart failure Is this a current diagnosis for this admission?: Yes Plan: Improving. Appears compensated. (4) Anemia in chronic kidney disease (CKD) Qualifiers: Is this a current diagnosis for this admission?: Yes Plan: Retacrit as needed during dialysis. Not needed today. (5) Chest pain Qualifiers: Chest pain type: unspecified Qualified Code(s): R07.9 - Chest pain, unspecified Is this a current diagnosis for this admission?: Yes Plan: Resolved. (6) Diabetes mellitus type 1 Qualifiers: Diabetes mellitus complication status: with neurologic complications Diabetes mellitus complication detail: with polyneuropathy Qualified Code(s): E10.42 - Type 1 diabetes mellitus with diabetic polyneuropathy Is this a current diagnosis for this admission?: Yes (7) Hypertension Qualifiers: Is this a current diagnosis for this admission?: Yes (8) Allergic reaction Is this a current diagnosis for this admission?: Yes Plan: Possible allergy to the mass causing perioral breakout per patient. I gave Benadryl 25 mg IV during dialysis today. - Time Time with patient: 15-25 minutes
[2020-08-02] MEDS: OXYCODONE-ACETAMINOPHEN 5-325 MG TABLET PO PRN (13:39)
[2020-08-02] MEDS: GABAPENTIN 300 MG CAPSULE PO SCH (17:07)
--- NOTE | 2020-08-02 20:17 | PDOC DISCHARGE SUMMARY ---
Impression - Admit/DC Date/PCP Admission Date/Primary Care Provider: 07/29/20 14:55 HILARY HERNANDEZ MD Discharge Date: 08/02/20 - Discharge Diagnosis (1) Acute pulmonary edema Is this a current diagnosis for this admission?: Yes (2) DM (diabetes mellitus), type 1 with hyperosmolarity Is this a current diagnosis for this admission?: Yes (3) End stage renal disease Is this a current diagnosis for this admission?: Yes (4) Paronychia of right index finger Is this a current diagnosis for this admission?: Yes - Additional Information Discharge Diet: Diabetic, Other (Comments) Discharge Activity: Activity As Tolerated, Balance Activity w/Rest, Weigh Daily Referrals: HILARY HERNANDEZ MD [Primary Care Provider] - 08/09/20 10:15 am Prescriptions: RX: Doxycycline Hyclate 100 mg PO BID #14 tablet.dr Ridge Medications: RX: Calcium Acetate [Phoslo 667 mg Capsule] 1,334 mg PO .BIDWITHSNACKS 09/25/19 RX: Calcium Acetate [Phoslo 667 mg Capsule] 2,001 mg PO Q8 09/25/19 RX: Furosemide [Lasix 80 mg Tablet] 80 mg PO Q8 09/25/19 RX: Insulin Detemir [Levemir] 35 unit SQ BID 09/25/19 RX: Nifedipine [Procardia XL 60 mg Tablet] 60 mg PO Q12 09/25/19 RX: Oxycodone HCl/Acetaminophen [Percocet 7.5-325 mg Tablet] 1 each PO QIDP PRN 09/25/19 RX: Alprazolam 1 mg PO TIDP PRN 10/25/19 RX: Metolazone 10 mg PO BID 10/25/19 RX: Promethazine HCl [Phenergan 25 mg Tablet] 25 mg PO Q6HP PRN 10/25/19 RX: Clonidine HCl [Catapres 0.1 mg Tablet] 0.1 mg PO Q8 11/29/19 RX: Clopidogrel Bisulfate [Plavix 75 mg Tablet] 75 mg PO DAILY 11/29/19 RX: Gabapentin Enacarbil [Horizant] 300 mg PO QPM 03/11/20 RX: Insulin Aspart [Novolog] 12 unit SQ MEALS 03/11/20 RX: Zolpidem Tartrate [Ambien] 10 mg PO HSP PRN 03/11/20 RX: Omeprazole 20 mg PO DAILY 04/26/20 RX: Atorvastatin Calcium [Lipitor 80 mg Tablet] 80 mg PO QHS 05/27/20 RX: Oxcarbazepine 300 mg PO Q12 05/27/20 RX: Linaclotide [Linzess] 290 mcg PO DAILY 07/29/20 RX: Doxycycline Hyclate 100 mg PO BID #14 tablet. 08/02/20 History of Present Illiness History of Present Illness: ERICH GOODMAN is a 35 year old female,She has end-stage renal disease on maintenance hemodialysis she presented with acute pulmonary edema requiring immediate hemodialysis. She had cardiac catheterization done about 1 month ago she was found to have nonobstructive coronary arteries, patient has presented multiple times with acute pulmonary edema requiring immediate hemodialysis, she was also found to have hyperglycemia, the serum glucose was above 400 Hospital Course Hospital Course: Patient was admitted for the management of acute pulmonary edema due to end- stage renal disease she was hemodialyzed there was concern that the AV fistula was malfunctioning. She also has paronychia of the right index finger she was prescribed this is likely on discharge. On admission she had severe elevated serum glucose she required insulin during the course of hospital stay she was able to euglycemia. Physical Exam Vital Signs: Temp Pulse Resp BP Pulse Ox 98.2 F 89 18 149/77 H 97 08/02/20 11:05 08/02/20 14:00 08/02/20 11:05 08/02/20 11:05 08/02/20 11:05 Intake & Output 08/01/20 08/02/20 08/03/20 06:59 06:59 06:59 Intake Total 1214 1621 462 Output Total 4300 5100 Balance -3086 1621 -4623 Weight 120.3 kg 126 kg General appearance: PRESENT: no acute distress Eye exam: PRESENT: PERRLA Respiratory exam: PRESENT: clear to auscultation freddy Cardiovascular exam: PRESENT: +S1, +S2 GI/Abdominal exam: PRESENT: soft Neurological exam: PRESENT: alert Results Laboratory Results: WBC 6.7 10^3/uL (4.0-10.5) 08/02/20 05:44 RBC 4.06 10^6/uL (3.72-5.28) 08/02/20 05:44 Hgb 11.4 g/dL (12.0-15.5) L 08/02/20 05:44 Hct 34.6 % (36.0-47.0) L 08/02/20 05:44 MCV 85 fl (80-97) 08/02/20 05:44 MCH 27.9 pg (27.0-33.4) 08/02/20 05:44 MCHC 32.8 g/dL (32.0-36.0) 08/02/20 05:44 RDW 18.2 % (11.5-14.0) H 08/02/20 05:44 Plt Count 263 10^3/uL (150-450) 08/02/20 05:44 Lymph % (Auto) 20.8 % (13-45) 07/29/20 09:55 Porter % (Auto) 9.3 % (3-13) 07/29/20 09:55 Eos % (Auto) 3.3 % (0-6) 07/29/20 09:55 Baso % (Auto) 0.8 % (0-2) 07/29/20 09:55 Absolute Neuts (auto) 5.5 10^3/uL (1.7-8.2) 07/29/20 09:55 Absolute Lymphs (auto) 1.7 10^3/uL (0.5-4.7) 07/29/20 09:55 Absolute Monos (auto) 0.8 10^3/uL (0.1-1.4) 07/29/20 09:55 Absolute Eos (auto) 0.3 10^3/uL (0.0-0.6) 07/29/20 09:55 Absolute Basos (auto) 0.1 10^3/uL (0.0-0.2) 07/29/20 09:55 Seg Neutrophils % 65.8 % (42-78) 07/29/20 09:55 Sodium 136.4 mmol/L (137-145) L 08/02/20 05:44 Potassium 5.6 mmol/L (3.6-5.0) H 08/02/20 05:44 Chloride 93 mmol/L (98-107) L 08/02/20 05:44 Carbon Dioxide 27 mmol/L (22-30) 08/02/20 05:44 Anion Gap 16 (5-19) 08/02/20 05:44 BUN 79 mg/dL (7-20) H 08/02/20 05:44 Creatinine 11.12 mg/dL (0.52-1.25) H 08/02/20 05:44 Est GFR ( Amer) 5 (>60) L 08/02/20 05:44 Est GFR (MDRD) Non-Af 4 (>60) L 08/02/20 05:44 Glucose 110 mg/dL (75-110) 08/02/20 05:44 POC Glucose 177 mg/dL (70-110) H 08/02/20 16:07 Calcium 9.8 mg/dL (8.4-10.2) 08/02/20 05:44 Total Bilirubin 0.4 mg/dL (0.2-1.3) 07/29/20 09:55 Direct Bilirubin 0.4 mg/dL (0.0-0.4) 07/29/20 09:55 Neonat Total Bilirubin Not Reportable 07/29/20 09:55 Neonat Direct Bilirubin Not Reportable 07/29/20 09:55 Neonat Indirect Bili Not Reportable 07/29/20 09:55 AST 14 U/L (14-36) 07/29/20 09:55 ALT 12 U/L (<35) 07/29/20 09:55 Alkaline Phosphatase 93 U/L (38-126) 07/29/20 09:55 Creatine Kinase 80 U/L (30-135) 07/29/20 09:55 CK-MB (CK-2) 1.92 ng/mL (<4.55) 07/29/20 09:55 Troponin I 0.177 ng/mL 07/29/20 12:49 Total Protein 7.5 g/dL (6.3-8.2) 07/29/20 09:55 Albumin 4.2 g/dL (3.5-5.0) 07/29/20 09:55 07/29/20 07/29/20 09:55 12:49 CK-MB (CK-2) 1.92 Troponin I 0.179 0.177 Stroke Is this a Stroke Patient?: No Acute Heart Failure Is this a Heart Failure Patient?: No
== END 2020-08-02 20:02 | disposition home or self-care (01) | DRG 291 ==
LOC: ER 09:12 → OBSVTOIN 14:55 → INTOOBSV 14:55 → EH 14:55 → 3W 17:32
PROVIDERS: ADMIT Internal Medicine; ATTEND Internal Medicine
PROC: 5A1D70Z Performance of Urinary Filtration, Intermittent, Less than 6 Hours Per Day (ICD-10-PCS; principal; 2020-07-29)
DX: I13.2 Hypertensive heart and chronic kidney disease with heart failure and with stage 5 chronic kidney disease, or end stage renal disease (principal); J81.0 Acute pulmonary edema; E11.00 Type 2 diabetes mellitus with hyperosmolarity without nonketotic hyperglycemic-hyperosmolar coma (NKHHC); N18.6 End stage renal disease; I50.31 Acute diastolic (congestive) heart failure; D63.1 Anemia in chronic kidney disease; E11.319 Type 2 diabetes mellitus with unspecified diabetic retinopathy without macular edema; E11.22 Type 2 diabetes mellitus with diabetic chronic kidney disease; E11.43 Type 2 diabetes mellitus with diabetic autonomic (poly)neuropathy; Z99.81 Dependence on supplemental oxygen; L03.011 Cellulitis of right finger; E11.65 Type 2 diabetes mellitus with hyperglycemia; I25.10 Atherosclerotic heart disease of native coronary artery without angina pectoris; J45.909 Unspecified asthma, uncomplicated; G43.909 Migraine, unspecified, not intractable, without status migrainosus; L40.9 Psoriasis, unspecified; F32.9 Major depressive disorder, single episode, unspecified; E87.5 Hyperkalemia; E66.01 Morbid (severe) obesity due to excess calories; Z79.4 Long term (current) use of insulin; Z99.2 Dependence on renal dialysis; Z91.15 Patient's noncompliance with renal dialysis; I25.2 Old myocardial infarction; Z88.6 Allergy status to analgesic agent; Z88.4 Allergy status to anesthetic agent; Z88.1 Allergy status to other antibiotic agents; Z88.8 Allergy status to other drugs, medicaments and biological substances
CPT/HCPCS: 36415; 71045; 80048; 80053; 82550; 82553; 82962; 84484; 85025; 85027; 93005; 93010; 94640; 96374; 96375; 99291; G0257; J0610; J1200; J1815; J2060; J2270; J2405; J3490; J7613

== ENCOUNTER 2020-08-04 12:48 | Inpatient (IN) | payer MEDICARE, MEDICAID ==
[2020-08-04] MEDS ORDERED: ONDANSETRON 4 MG TAB.RAPDIS PO ONE (13:14)
[2020-08-04] MEDS ORDERED: PROMETHAZINE HCL 25 MG TABLET PO ONE (13:14)
[2020-08-04 14:13] LABS: ABSOLUTE BASOPHILS # (AUTO) 0.1 10^3/uL (0.0-0.2); ABSOLUTE EOSINOPHILS # (AUTO) 0.5 10^3/uL (0.0-0.6); ABSOLUTE LYMPHOCYTES (AUTO) 2.3 10^3/uL (0.5-4.7); ABSOLUTE MONOCYTES (AUTO) 0.9 10^3/uL (0.1-1.4); ABSOLUTE NEUT (AUTO) 4.4 10^3/uL (1.7-8.2); BASOPHILS % (AUTO) 0.9 % (0-2); EOSINOPHILS % (AUTO) 6.1 % (0-6); HEMATOCRIT 33.2 % (36.0-47.0); HEMOGLOBIN 10.9 g/dL (12.0-15.5); LYMPHOCYTES % (AUTO) 27.6 % (13-45); MEAN CORPUSCULAR HEMOGLOBIN 28.3 pg (27.0-33.4); MEAN CORPUSCULAR HGB CONC 32.7 g/dL (32.0-36.0); MEAN CORPUSCULAR VOLUME 87 fl (80-97); MONOCYTES % (AUTO) 11.4 % (3-13); PLATELET COUNT 253 10^3/uL (150-450); RED BLOOD COUNT 3.84 10^6/uL (3.72-5.28); RED CELL DISTRIBUTION WIDTH 17.9 % (11.5-14.0); TOTAL CELLS COUNTED % (AUTO) 100 %; WHITE BLOOD COUNT 8.2 10^3/uL (4.0-10.5)
--- NOTE | 2020-08-04 14:23 | ER Document Report ---
Entered by TRENT VILLAREAL SCRIBE 08/04/20 1307 Acting as scribe for:LEVI PATRICK MD ED General - General Mode of Arrival: Ambulatory Information source: Patient TRAVEL OUTSIDE OF THE [place] IN LAST 30 DAYS: No <LEVI PATRICK - Last Filed: 08/04/20 21:14> <RAJINDER MEJIA IV - Last Filed: 08/05/20 03:03> - General Chief Complaint: General Weakness Stated Complaint: WEAKNESS Time Seen by Provider: 08/04/20 12:56 Primary Care Provider: HILARY SINGLETON MD [Primary Care Provider] - Follow up as needed Notes: This 35 year old female patient presents to the emergency department today with complaints of vomiting which began at 3:00 AM this morning. She reports that wh en she got up to vomit she noticed that she was generally weak and she had to hold on to the table so she didn't fall. She is due to dialyze tomorrow and she states she thinks her potassium is too high. The patient was admitted here on 07/29/2020 through 08/02/2020 for complaint of chest pain. She was dialyzed on the afternoon of 08/02/2020. (LEVI PATRICK) - Related Data Allergies/Adverse Reactions: aspirin [Aspirin] Allergy (Verified 07/29/20 09:52) Anaphylaxis ciprofloxacin [From Cipro] Allergy (Verified 07/29/20 09:52) Anaphylaxis clindamycin [Clindamycin] Allergy (Verified 07/29/20 09:52) hydrocodone [From Vicodin] Allergy (Verified 07/29/20 09:52) ibuprofen [From Motrin] Allergy (Verified 07/29/20 09:52) Anaphylaxis lidocaine [From Lidoderm] Allergy (Verified 07/29/20 09:52) Generalized rash tramadol HCl [From Ultram] Allergy (Verified 07/29/20 09:52) vancomycin [Vancomycin] Allergy (Verified 07/29/20 09:52) Shortness of Breath nitroglycerin [Nitroglycerin] Adverse Reaction (Intermediate, Verified 07/29/20 09:52) Joint pain Past Medical History - General Information source: Patient - Social History Smoking Status: Never Smoker Cigarette use (# per day): No Lives with: Family Family History: Reviewed & Not Pertinent, Hypertension - Past Medical History Cardiac Medical History: Reports: Hx Congestive Heart Failure, Hx Coronary Artery Disease, Hx Heart Attack, Hx Hypertension, Hx Heart Murmur Pulmonary Medical History: Reports: Hx Asthma, Hx Pneumonia Neurological Medical History: Reports: Hx Migraine, Hx Seizures - only r/t low calcium Endocrine Medical History: Reports: Hx Diabetes Mellitus Type 1, Hx Diabetes Mellitus Type 2 Renal/ Medical History: Reports: Hx End Stage Renal Disease - On hemodialysis M-W-F, Hx Hemodialysis - MWF, Hx Ovarian Cysts Malignancy Medical History: GI Medical History: Reports: Hx Gastritis Musculoskeletal Medical History: Skin Medical History: Reports Hx Psoriasis Psychiatric Medical History: Reports: Hx Depression Traumatic Medical History: Infectious Medical History: Past Surgical History: Reports: Hx Appendectomy, Hx Cholecystectomy, Hx Vascular Surgery - Lt AV Fistula and graft; Rt AV fistula - Immunizations Immunizations up to date: Yes Hx Diphtheria, Pertussis, Tetanus Vaccination: Yes Hx Pneumococcal Vaccination: 08/22/11 <LEVI PATRICK - Last Filed: 08/04/20 21:14> Review of Systems - Review of Systems Constitutional: See HPI, Weakness EENT: No symptoms reported Cardiovascular: No symptoms reported Respiratory: No symptoms reported Gastrointestinal: See HPI, Vomiting Genitourinary: No symptoms reported Female Genitourinary: No symptoms reported Musculoskeletal: No symptoms reported Skin: No symptoms reported Hematologic/Lymphatic: No symptoms reported Neurological/Psychological: No symptoms reported -: Yes All other systems reviewed and negative <LEVI PATRICK - Last Filed: 08/04/20 21:14> Physical Exam <LEVI PATRICK - Last Filed: 08/04/20 21:14> - Vital signs Vitals: Temp Resp BP Pulse Ox 98.8 F 9 L 173/94 H 100 08/04/20 13:00 08/04/20 13:00 08/04/20 13:00 08/04/20 13:00 - Notes Notes: Physical Exam: General: Alert, appears well. HEENT: Normocephalic. Atraumatic. PERRL. Extraocular movements intact. Oropharynx clear. Neck: Supple. Non-tender. Respiratory: No respiratory distress. Clear and equal breath sounds bilaterally. Cardiovascular: Regular rate and rhythm. Abdominal: Normal Inspection. Non-tender. No distension. Normal Bowel Sounds. Back: No gross abnormalities. Extremities: Moves all four extremities. Upper extremities: Fistula in Left upper extremity. Normal ROM. Lower extremities: 1+ peripheral edema. Normal ROM. Neurological: Normal cognition. AAOx4. Normal speech. Psychological: Normal affect. Normal Mood. Skin: Warm. Dry. Normal color. (LEVI PATRICK) Course - Laboratory Result Diagrams: 08/04/20 13:50 08/04/20 17:35 - Diagnostic Test Radiology reviewed: Image reviewed - Chest x-ray shows cardiomegaly with slight central vascular congestion. - EKG Interpretation by Ma EKG shows normal: Sinus rhythm, Aurora, Intervals, QRS Complexes, ST-T Waves Aurora/QRS: IVCD Voltage: Consistent with LVH Heart block present: 1st Degree When compared to previous EKG there are: Changes noted - Compared to 07/29/2020, lateral T waves are little taller and peaked, there is a first-degree AV block, and there is a nonspecific interventricular conduction delay. All this is most likely due to her high potassium. The patient had similar EKG changes on when her potassium was 7.0 - Transfer of Care Care transferred to following provider: Dr. Mejia <LEVI PATRICK - Last Filed: 08/04/20 21:14> - Laboratory Result Diagrams: 08/04/20 13:50 08/05/20 01:17 - Consults Dr. Singleton Time consulted: 03:01 - Dr. Singleton was informed of the patient's course, repeat potassiums, treatment of hyperkalemia and attempt to transfer with ultimate refusal of transfer. Dr. Singleton agreed to admit pt here. <RAJINDER MEJIA IV - Last Filed: 08/05/20 03:03> - Re-evaluation Re-evalutation: 08/04/20 14:24 Patient is presently sleeping. Chemistries are pending. The patient was evaluated during the global COVID-19 pandemic and that diagnosis was suspected/considered upon their initial presentation. Their evaluation, treatment and testing was consistent with current guidelines for patients who present with complaints or symptoms that may be related to COVID-19. 08/04/20 15:06 The patient's potassium came back at 7.7 I did call [facility] at 1510 for transfer, and was told that they were at capacity and could not accept the patient. I next called [facility] at 1514 and received a call back at [address]ist Dr[address] Elyse West. She was requesting a repeat potassium level. I was called again from the transfer center at 1740 asking about the patient's COVID testing status. At that time I asked the charge nurse to try and get a rapid COVID test done. I was then called back by the hospitalist at 1757 asking about the patient's potassium level and COVID status. At that point the potassium level was still pending. She stated she had spoken with the alteration hand, and they felt that the patient could stay here and continue to be treated for her elevated potassium and would not require emergent dialysis, since she was not in congestive heart failure. She did request Veltassa be given to the patient. She also asked about the EKG changes and if there was a comparison EKG. I told her that those changes were new compared to 1 week ago, but I had not pulled up old EKGs. After I spoke with her, I went through old records and found the last time she had a elevated potassium at 7.0, the EKG at that time showed the same first-degree AV block and lateral peak T waves. The repeat potassium did come back at 7.0 Due to the reluctance to accept the patient for dialysis, I will repeat her po tassium again and if it continues to be unacceptably elevated, will attempt again to get the patient transferred. (LEVI PARTICK) 08/04/20 22:54 Repeat potassium just resulted it has increased from 7.0 to 7.3 despite the patient being given Veltassa. 08/04/20 23:11 This spoke to the transfer center at [facility]. The craft coordinator called this back and informed me that the alteration hand with [place], Dr. Camilo lee spoke with the alteration hand at [facility] and stated that the patient did not need to be dialyzed tonight. This MD was under the impression after checkout from Dr. Patirck if the third potassium was not significantly lower that the patient would have to be transferred since we do not have dialysis capabilities or a alteration hand directly bathroom tiling professional for the ED tonight. This MD requested speak to the hospitalist Dr. Curran. This MD informed Dr. Curran that the initial potassium was 7.7, the patient was given the usual medications for hyperkalemia and the repeat potassium was 7, Dr. Mcgee is told that the provider he spoke to at [facility] wanted the patient to receive Audrey Jennifer and check another potassium level afterwards. That was done and the repeat (third potassium) had increased from 7.[address] Curran stated that he would speak to the alteration hand bathroom tiling professional for [place] and have him get in touch with this MD. This MD has concerns that we do not know dialysis capabilities available tonight should the patient's potassium continue to increase and we do not have direct bathroom tiling professional access to a alteration hand. 08/04/20 23:30 According to the transfer center trimmer operator at [facility], Dr. Curran spoke with Dr. Small, alteration hand with [facility]. She stated that Geovanny Willard told Dr. curran that he would not call in dialysis team to emergently dialyze patient because it would take 4 hours or so and pt is scheduled for dialysis at 6am, so Dr. Curran refused the transfer. Additional calcium, dextrose, insulin, bicarb and kayexalate ordered by this md. (RAJINDER MEJIA IV) - Vital Signs Vital signs: Temp Pulse Resp BP Pulse Ox 98.8 F 11 L 112/53 L 100 08/04/20 13:04 08/04/20 19:01 08/04/20 19:00 08/04/20 19:01 - Laboratory Laboratory results interpreted by wi: 08/04/20 08/04/20 08/04/20 13:50 13:50 17:35 Hgb 10.9 L Hct 33.2 L RDW 17.9 H Eos % (Auto) 6.1 H Sodium 135.4 L 134.7 L Potassium 7.7 H* 7.0 H* Chloride 95 L 95 L BUN 97 H 101 H Creatinine 12.05 H 11.97 H Est GFR ( Amer) 4 L 4 L Est GFR (MDRD) Non-Af 4 L 4 L Glucose 138 H 156 H Calcium Magnesium 2.4 H 08/04/20 08/05/20 21:49 01:17 Hgb Hct RDW Eos % (Auto) Sodium 135.3 L 136.3 L Potassium 7.3 H* 6.9 H* Chloride 95 L 95 L BUN 96 H 102 H Creatinine 12.39 H 12.70 H Est GFR ( Amer) 4 L 4 L Est GFR (MDRD) Non-Af 3 L 3 L Glucose 230 H Calcium 8.3 L Magnesium - Consults Dr. Singleton Reason for consultation: 08/05/20 03:01 vomitng, hyperkalemia (RAJINDER MEJIA IV) - Transfer of Care Notes: 08/04/20 21:15 Patient is pending repeat potassium level. Disposition will depend on how much lower her potassium goes with medical management. Jazmyne Lockhart had considered admission, but wanted to try further medical management here to see if the potassium could be brought down enough for the patient to remain at this facility until she could be dialyzed tomorrow. (LEVI PATRICK) Critical Care Note - Critical Care Note Total time excluding time spent on procedures (mins): 50 <LEVI PATRICK - Last Filed: 08/04/20 21:14> - Critical Care Note Comments: At least 50 minutes spent evaluating patient, reviewing current and prior hospital records and labs and EKGs. Re-evaluations and repeat lab work ordered and evaluated. Discussions with different hospital transfer centers, and hospitalists in an attempt to get the patient transferred. Patient handed off to the oncoming shift, as disposition has still not been determined. (LEVI PATRICK) Discharge <LEVI PATRICK - Last Filed: 08/04/20 21:14> - Discharge Admitting Provider: Areli Unit Admitted: [facility] <RAJINDER MEJIA IV - Last Filed: 08/05/20 03:03> - Discharge Clinical Impression: Weakness, Hyperkalemia, ESRD (end stage renal disease) on dialysis, Diabetes mellitus type 1 with complications Nausea and vomiting Qualifiers: Vomiting type: unspecified Vomiting Intractability: non-intractable Qualified Code(s): R11.2 - Nausea with vomiting, unspecified Condition: Stable Disposition: ADMITTED INPATIENT Referrals: HILARY SINGLETON MD [Primary Care Provider] - Follow up as needed I personally performed the services described in the documentation, reviewed and edited the documentation which was dictated to the scribe in my presence, and it accurately records my words and actions.
[2020-08-04 14:39] LABS: ALBUMIN 4.4 g/dL (3.5-5.0); ALKALINE PHOSPHATASE 89 U/L (38-126); ANION GAP 18 (5-19); ASPARTATE AMINO TRANSFERASE 18 U/L (14-36); BILIRUBIN,DIRECT 0.4 mg/dL (0.0-0.4); BILIRUBIN,TOTAL 0.4 mg/dL (0.2-1.3); BLOOD UREA NITROGEN 97 mg/dL (7-20); CALCIUM 8.7 mg/dL (8.4-10.2); CARBON DIOXIDE 22 mmol/L (22-30); CHLORIDE 95 mmol/L (98-107); CREATINE KINASE 125 U/L (30-135); GLUCOSE 138 mg/dL (75-110)
[2020-08-04 14:49] LABS: POTASSIUM 7.7 mmol/L (3.6-5.0)
[2020-08-04] MEDS ORDERED: CALCIUM GLUCONATE 1000 MG/10 ML INJ IV ONE ×2 (14:56→23:28)
[2020-08-04] MEDS ORDERED: SODIUM POLYSTYRENE SULFONATE 15 GM/60 ML PO ONE ×2 (14:57→23:29)
[2020-08-04] MEDS ORDERED: SODIUM BICARBONATE 8.4% INJ 50 MEQ/50 ML DISP.SYRIN ONE ×2 (14:57→23:30)
[2020-08-04] MEDS ORDERED: SODIUM BICARBONATE 8.4% INJ 50 MEQ/50 ML DISP.SYRIN IV ONE ×4 (14:57→23:29)
[2020-08-04] MEDS ORDERED: DEXTROSE 50%-WATER 25 GM/50 ML DISP.SYRIN IV ONE ×2 (15:09→23:28)
[2020-08-04] MEDS ORDERED: INSULIN REG, HUMAN 100 UNIT/ML 3 ML VIAL (PYX) IV ONE ×2 (15:09→23:28)
[2020-08-04] MEDS ORDERED: ALBUTEROL SULFATE 0.083% NEB 2.5 MG/3 ML AMPUL NEB ONE (15:10)
[2020-08-04] MEDS ORDERED: FENTANYL CITRATE INJ/PF 100 MCG/2 ML AMPUL IV ONE (15:47)
[2020-08-04 18:07] LABS: ANION GAP 18 (5-19); BLOOD UREA NITROGEN 101 mg/dL (7-20); CALCIUM 8.8 mg/dL (8.4-10.2); CARBON DIOXIDE 22 mmol/L (22-30); CHLORIDE 95 mmol/L (98-107); GLUCOSE 156 mg/dL (75-110)
--- NOTE | 2020-08-04 21:20 | RADIOLOGY REPORT (SQ) ---
EXAM: XR CHEST 1 VIEW CLINICAL INDICATION: 35-year-old female with hyperkalemia and chronic renal failure. TECHNIQUE: Single view, AP portable chest was obtained. COMPARISON: 08/08/2020. FINDINGS: Stable cardiac and mediastinal silhouette. Heart size is mildly enlarged. Mild interstitial prominence raising the possibility of pulmonary vascular congestion. Low lung volumes otherwise grossly clear without focal opacity, pneumothorax or large pleural effusions. Trace pleural effusion cannot be excluded. The visualized bones are within normal limits. Stent is identified at the level of the RIGHT subclavian and RIGHT axillary distribution. There appears to be either fracture or narrowing of the distal stent. IMPRESSION: Enlarged cardiac silhouette with interstitial prominence raising the concern for pulmonary vascular congestion.
[2020-08-04] MEDS ORDERED: PATIROMER 8.4 GM SUSP PACKET ONE (22:17)
[2020-08-04 22:34] LABS: ANION GAP 16 (5-19); BLOOD UREA NITROGEN 96 mg/dL (7-20); CALCIUM 8.3 mg/dL (8.4-10.2); CARBON DIOXIDE 24 mmol/L (22-30); CHLORIDE 95 mmol/L (98-107); GLUCOSE 107 mg/dL (75-110)
[2020-08-04] MEDS: PATIROMER 8.4 GM SUSP PACKET PO SCH (22:42)
[2020-08-04 22:44] LABS: POTASSIUM 7.3 mmol/L (3.6-5.0)
[2020-08-05] MEDS ORDERED: ONDANSETRON HCL INJ/PF 4 MG/2 ML SDV IV ONE (01:05)
[2020-08-05 02:20] LABS: ANION GAP 18 (5-19); BLOOD UREA NITROGEN 102 mg/dL (7-20); CALCIUM 9.3 mg/dL (8.4-10.2); CARBON DIOXIDE 23 mmol/L (22-30); CHLORIDE 95 mmol/L (98-107); GLUCOSE 230 mg/dL (75-110)
--- NOTE | 2020-08-05 02:26 | EKG REPORT ---
SEVERITY:- ABNORMAL ECG - SINUS RHYTHM FIRST DEGREE AV BLOCK NONSPECIFIC INTRAVENTRICULAR CONDUCTION DELAY PROBABLE LEFT VENTRICULAR HYPERTROPHY : Confirmed by: Isacc Chen MD 05-Aug-2020 02:25:26
[2020-08-05 02:49] LABS: POTASSIUM 6.9 mmol/L (3.6-5.0)
[2020-08-05] MEDS ORDERED: NORMAL SALINE 1000 ML 1,000 ML IV PRN (09:38)
--- NOTE | 2020-08-05 10:57 | PDOC PROGRESS REPORT ---
Subjective Progress Note for:: 08/05/20 Subjective:: I am seeing the patient during dialysis this morning. She seems pretty comfortable and hyperkalemia pain shortness of breath, chest pains, fever nor cough. She is currently tolerating dialysis using her right arm AV fistula. Patient was just recently discharged last Wednesday after dialysis. She states that upon getting home she was up all night until commissary representative Wednesday at around 3 AM and then he finally slept. At around 12 noon when she got awakened, she states that she could not get up. She was having nausea, vomiting and metallic taste in her mouth. So yesterday they called EMS again and she was brought to the emergency room. Initial evaluation showed a potassium of 7.7. Patient was attempted to be transferred but was unable to. In the emergency room she was given 2 doses of calcium gluconate, a dose of Veltassa, combination of 10 units of insulin with 1 amp of D50 50, 2 A of sodium bicarbonate and 1 dose of Kayexalate 30 g. Her potassium this morning came down only to 6.9. Reason For Visit: WEAKNESS,HYPERKALEMIA,ESRD(END STAGE RENAL DISEAES Physical Exam Vital Signs: Temp Pulse Resp BP Pulse Ox 98.8 F 10 L 166/102 H 100 08/04/20 13:04 08/05/20 06:01 08/05/20 06:01 08/05/20 05:01 Intake & Output 08/04/20 08/05/20 08/06/20 06:59 06:59 06:59 Weight 117 kg Vitals during dialysis: Blood pressure 183/94, heart rate of 89, blood flow rate of 450 mL/min and dialysate flow rate of 800 mL/min. Exam: General appearance: PRESENT: no acute distress, cooperative, well-developed, we ll-nourished Head exam: PRESENT: atraumatic, normocephalic Eye exam: PRESENT: conjunctiva pink, PERRLA. ABSENT: scleral icterus Neck exam: ABSENT: JVD Respiratory exam: PRESENT: Normal breath sounds. ABSENT: crackles, rales, rhonchi, unlabored, wheezes Cardiovascular exam: PRESENT: Regular rate rhythm -+S1, +S2. ABSENT: diastolic murmur, systolic murmur GI/Abdominal exam: PRESENT: normal bowel sounds, soft. ABSENT: guarding, mass, tenderness Extremities exam: Grade 1 bilateral lower extremity pitting edema Neurological exam: PRESENT: alert, awake, oriented to person, place and time. Skin exam: PRESENT: dry, warm, Results Laboratory Results: 08/04/20 13:50 08/05/20 01:17 08/04/20 08/04/20 08/04/20 13:50 13:50 17:35 WBC 8.2 RBC 3.84 Hgb 10.9 L Hct 33.2 L MCV 87 MCH 28.3 MCHC 32.7 RDW 17.9 H Plt Count 253 Seg Neutrophils % 54.0 Sodium 135.4 L 134.7 L Potassium 7.7 H* 7.0 H* Chloride 95 L 95 L Carbon Dioxide 22 22 Anion Gap 18 18 BUN 97 H 101 H Creatinine 12.05 H 11.97 H Est GFR ( Amer) 4 L 4 L Glucose 138 H 156 H Calcium 8.7 8.8 Magnesium 2.4 H Total Bilirubin 0.4 AST 18 Alkaline Phosphatase 89 Total Protein 8.0 Albumin 4.4 08/04/20 08/05/20 21:49 01:17 WBC RBC Hgb Hct MCV MCH MCHC RDW Plt Count Seg Neutrophils % Sodium 135.3 L 136.3 L Potassium 7.3 H* 6.9 H* Chloride 95 L 95 L Carbon Dioxide 24 23 Anion Gap 16 18 BUN 96 H 102 H Creatinine 12.39 H 12.70 H Est GFR ( Amer) 4 L 4 L Glucose 107 230 H Calcium 8.3 L 9.3 Magnesium Total Bilirubin AST Alkaline Phosphatase Total Protein Albumin 08/04/20 08/04/20 08/04/20 13:50 13:50 17:35 Creatine Kinase 125 Troponin I 1.140 0.956 Impressions: Chest X-Ray 08/04/20 20:05 IMPRESSION: Enlarged cardiac silhouette with interstitial prominence raising the concern for pulmonary vascular congestion. Assessment & Plan - Diagnosis (1) ESRD on dialysis Is this a current diagnosis for this admission?: Yes Plan: We will do dialysis today for 3.5 hours, using the patient's right AV fistula, with 1K for 2 hours followed by 2 potassium bath, blood flow rate of 450 mL per minute, dialysate flow rate of 800 mL per minute, ultrafiltration 4-5 L as t olerated, no heparin and no Epogen. Patient is being monitored currently during dialysis treatment. Ultrafiltration adjusted accordingly. (2) Hyperkalemia Is this a current diagnosis for this admission?: Yes Plan: Currently being dialyzed with low potassium bath. (3) Uremia Is this a current diagnosis for this admission?: Yes Plan: Symptoms could be due to uremia due to inadequate dialysis because of problems with her vascular access. (4) Problem with dialysis access Is this a current diagnosis for this admission?: Yes Plan: Her AV fistula needs to be evaluated and fix. She has been going to [facility] almost every 2 weeks to have it fixed. She is scheduled for an outpatient angiogram this coming and I am hoping that she can be discharged to make that appointment. We will coordinate with the vascular access center and see if the patient would need some AV fistula revision or a new access. (5) Anemia in chronic kidney disease (CKD) Qualifiers: Is this a current diagnosis for this admission?: Yes Plan: Retacrit as needed during dialysis. (6) Hypertension Qualifiers: Is this a current diagnosis for this admission?: Yes Plan: Resume all home blood pressure medications. 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 - Time Time with patient: 15-25 minutes
[2020-08-05] MEDS ORDERED: (PENDING PHARMACY ID) (Oxycodone Hcl/Acetaminophen [Percocet 7.5-325 Mg Tablet] 1 EACH) PO PRN (15:34)
[2020-08-05] MEDS ORDERED: (PENDING PHARMACY ID) (Zolpidem Tartrate [Ambien] 10 MG) PO PRN (15:34)
[2020-08-05] MEDS ORDERED: (PENDING PHARMACY ID) (Alprazolam [Alprazolam] 1 MG) PO PRN (15:35)
[2020-08-05] MEDS ORDERED: CALCIUM ACETATE 667 MG CAPSULE PO SCH (15:45)
[2020-08-05] MEDS ORDERED: INSULIN ASPART 12 UNIT SQ SCH (17:00)
[2020-08-05] MEDS: PATIROMER 8.4 GM SUSP PACKET PO SCH (17:39)
[2020-08-05] MEDS: INSULIN LISPRO 100 UNIT/ML 3 ML VIAL SUBCUT SCH (17:40)
[2020-08-05] MEDS ORDERED: DOXYCYCLINE HYCLATE 100 MG TABLET PO SCH (18:00)
[2020-08-05] MEDS ORDERED: (PENDING PHARMACY ID) (Insulin Detemir [Levemir] 35 UNIT) SQ SCH (18:00)
[2020-08-05] MEDS ORDERED: (PENDING PHARMACY ID) (Gabapentin Enacarbil [Horizant] 300 MG) PO SCH (18:00)
[2020-08-05] MEDS ORDERED: METOLAZONE 5 MG TABLET PO SCH (18:00)
[2020-08-05] MEDS ORDERED: PAROXETINE PO SCH (18:00)
[2020-08-05] MEDS ORDERED: DOXYCYCLINE HYCLATE 100 MG PO SCH (18:00)
[2020-08-05] MEDS ORDERED: METOLAZONE 10 MG PO SCH (18:00)
[2020-08-05] MEDS ORDERED: PAROXETINE HCL 20 MG TABLET PO SCH (18:00)
--- NOTE | 2020-08-05 20:28 | PDOC H&P ---
History of Present Illness Admission Date/PCP: 08/05/20 03:25 HILARY HERNANDEZ MD History of Present Illness: ERICH GOODMAN is a 35 year old female With end-stage renal disease on maintenance hemodialysis, she was just discharged from the hospital on 08/02/2020, she came to the emergency room for evaluation of, nausea, vomiting, metallic taste in the mouth, in the emergency room she was found to have severe hyperkalemia, She was treated medically for the potassium and she is admitted for further management. There was concern that she may have malfunction of the fistula that she uses for dialysis and the fistula needs to be evaluated by vascular surgery because of the concern for malfunction of the fistula Past Medical History Cardiac Medical History: Reports: Congestive Heart Failure, Myocardial Infarction, Hypertension, Heart Murmur Pulmonary Medical History: Reports: Asthma, Pneumonia Neurological Medical History: Reports: Migraine, Seizures - only r/t low calcium Endocrine Medical History: Reports: Diabetes Mellitus Type 1 Renal/ Medical History: Reports: End Stage Renal Disease - On hemodialysis [id number] Malignancy Medical History: GI Medical History: Musculoskeltal Medical History: Skin Medical History: Reports: Psoriasis Psychiatric Medical History: Reports: Depression Hematology: Reports: Anemia Infectious Medical History: Past Surgical History Past Surgical History: Reports: Appendectomy, Cholecystectomy, Vascular Surgery - Lt AV Fistula and graft; Rt AV fistula Social History Lives with: Family Smoking Status: Never Smoker Electronic Cigarette use?: No Frequency of Alcohol Use: Rare Hx Recreational Drug Use: No Drugs: None Hx Prescription Drug Abuse: No Family History Family History: Reviewed & Not Pertinent, Hypertension Parental Family History Reviewed: Yes Children Family History Reviewed: Yes Sibling(s) Family History Reviewed.: Yes Medication/Allergy Home Medications: RX: Calcium Acetate [Phoslo 667 mg Capsule] 1,334 mg PO .[id number] 09/25/19 RX: Calcium Acetate [Phoslo 667 mg Capsule] 2,001 mg PO Q8 09/25/19 RX: Insulin Detemir [Levemir] 35 unit SQ BID 09/25/19 RX: Oxycodone HCl/Acetaminophen [Percocet 7.5-325 mg Tablet] 1 each PO QIDP PRN 09/25/19 RX: Alprazolam 1 mg PO TIDP PRN 10/25/19 RX: Metolazone 10 mg PO BID 10/25/19 RX: Clopidogrel Bisulfate [Plavix 75 mg Tablet] 75 mg PO DAILY 11/29/19 RX: Gabapentin Enacarbil [Horizant] 300 mg PO QPM 03/11/20 RX: Insulin Aspart [Novolog] 12 unit SQ MEALS 03/11/20 RX: Zolpidem Tartrate [Ambien] 10 mg PO HSP PRN 03/11/20 RX: Omeprazole 20 mg PO DAILY 04/26/20 RX: Atorvastatin Calcium [Lipitor 80 mg Tablet] 80 mg PO QHS 05/27/20 RX: Oxcarbazepine 300 mg PO Q12 05/27/20 RX: Linaclotide [Linzess] 290 mcg PO DAILY 07/29/20 RX: Doxycycline Hyclate 100 mg PO BID #14 tablet. 08/02/20 Nifedipine [Nifedipine ER] 60 mg PO Q12 08/05/20 Paroxetine HCl [Paxil] 80 mg PO QPM 08/05/20 Allergies/Adverse Reactions: aspirin [Aspirin] Allergy (Verified 07/29/20 09:52) Anaphylaxis ciprofloxacin [From Cipro] Allergy (Verified 07/29/20 09:52) Anaphylaxis clindamycin [Clindamycin] Allergy (Verified 07/29/20 09:52) hydrocodone [From Vicodin] Allergy (Verified 07/29/20 09:52) ibuprofen [From Motrin] Allergy (Verified 07/29/20 09:52) Anaphylaxis lidocaine [From Lidoderm] Allergy (Verified 07/29/20 09:52) Generalized rash tramadol HCl [From Ultram] Allergy (Verified 07/29/20 09:52) vancomycin [Vancomycin] Allergy (Verified 07/29/20 09:52) Shortness of Breath nitroglycerin [Nitroglycerin] Adverse Reaction (Intermediate, Verified 07/29/20 09:52) Joint pain Review of Systems Eyes: ABSENT: visual disturbances Ears: ABSENT: hearing changes Cardiovascular: ABSENT: chest pain, dyspnea on exertion, edema, orthropnea, palpitations Respiratory: PRESENT: dyspnea. ABSENT: cough, hemoptysis Gastrointestinal: PRESENT: nausea, vomiting Genitourinary: ABSENT: dysuria, hematuria Musculoskeletal: ABSENT: joint swelling Integumentary: ABSENT: rash, wounds Neurological: ABSENT: abnormal gait, abnormal speech, confusion, dizziness, focal weakness, syncope Psychiatric: ABSENT: anxiety, depression, homidical ideation, suicidal ideation Endocrine: ABSENT: cold intolerance, heat intolerance, menstrual abnormalities, polydipsia, polyuria Hematologic/Lymphatic: ABSENT: easy bleeding, easy bruising, lymphadenopathy Physical Exam Vital Signs: Temp Pulse Resp BP Pulse Ox 98.0 F 95 22 H 149/65 H 100 08/05/20 19:46 08/05/20 19:46 08/05/20 19:46 08/05/20 19:46 08/05/20 19:46 Intake & Output 08/04/20 08/05/20 08/06/20 06:59 06:59 06:59 Intake Total 230 Output Total 5400 Balance -5170 Weight 117 kg 117 kg General appearance: PRESENT: no acute distress Respiratory exam: PRESENT: clear to auscultation ferddy Cardiovascular exam: PRESENT: +S1, +S2 GI/Abdominal exam: PRESENT: soft Neurological exam: PRESENT: alert Results Laboratory Results: 08/04/20 13:50 08/05/20 01:17 08/04/20 08/05/20 21:49 01:17 Sodium 135.3 L 136.3 L Potassium 7.3 H* 6.9 H* Chloride 95 L 95 L Carbon Dioxide 24 23 Anion Gap 16 18 BUN 96 H 102 H Creatinine 12.39 H 12.70 H Est GFR ( Amer) 4 L 4 L Glucose 107 230 H Calcium 8.3 L 9.3 08/04/20 08/04/20 08/04/20 13:50 13:50 17:35 Creatine Kinase 125 Troponin I 1.140 0.956 Impressions: Chest X-Ray 08/04/20 20:05 IMPRESSION: Enlarged cardiac silhouette with interstitial prominence raising the concern for pulmonary vascular congestion. Assessment & Plan - Diagnosis (1) Hyperkalemia Is this a current diagnosis for this admission?: Yes Plan: Patient is admitted for management (2) ESRD (end stage renal disease) on dialysis Is this a current diagnosis for this admission?: Yes - Time Time Spent: Greater than 70 Minutes Medications reviewed and adjusted accordingly: Yes Anticipated Discharge Disposition: Home, Self Care Anticipated Discharge Timeframe: within 72 hours - Inpatient Certification Based on my medical assessment, after consideration of the patient's c omorbidities, presenting symptoms, or acuity I expect that the services needed warrant INPATIENT care.: Yes I certify that my determination is in accordance with my understanding of Medicare's requirements for reasonable and necessary INPATIENT services [42 CFR 412.3e].: Yes
[2020-08-05] MEDS: PAROXETINE HCL 20 MG TABLET PO SCH (21:13)
[2020-08-05] MEDS: OXCARBAZEPINE 150 MG TABLET PO SCH (21:13)
[2020-08-05] MEDS: NIFEDIPINE 30 MG TAB.ER.24 PO SCH (21:14)
[2020-08-05] MEDS: DOXYCYCLINE HYCLATE 100 MG TABLET PO SCH (21:15)
[2020-08-05] MEDS: ATORVASTATIN CALCIUM 80 MG TABLET PO SCH (21:15)
[2020-08-05] MEDS: METOLAZONE 5 MG TABLET PO SCH (21:15)
[2020-08-05] MEDS ORDERED: (PENDING PHARMACY ID) (Oxcarbazepine [Oxcarbazepine] 300 MG) PO SCH (22:00)
[2020-08-05] MEDS ORDERED: (PENDING PHARMACY ID) (Nifedipine [Nifedipine Er] 60 MG) PO SCH (22:00)
[2020-08-05] MEDS: INSULIN GLARGINE,HUM.REC.ANLOG 1,000 UNIT/10 ML VIAL SUBCUT SCH (22:52)
[2020-08-05] MEDS: ONDANSETRON HCL INJ/PF 4 MG/2 ML SDV IV PRN (22:52)
[2020-08-06] MEDS: CALCIUM ACETATE 667 MG CAPSULE PO SCH ×3 (08:18→17:05)
[2020-08-06] MEDS: INSULIN LISPRO 100 UNIT/ML 3 ML VIAL SUBCUT SCH ×3 (08:18→17:04)
[2020-08-06] MEDS: OXYCODONE HCL IR 5 MG TABLET PO PRN ×3 (08:25→20:08)
[2020-08-06] MEDS: OXYCODONE-ACETAMINOPHEN 5-325 MG TABLET PO PRN ×3 (08:25→20:07)
[2020-08-06] MEDS: ONDANSETRON HCL INJ/PF 4 MG/2 ML SDV IV PRN (08:26)
[2020-08-06] MEDS: METOLAZONE 5 MG TABLET PO SCH ×2 (09:13→21:30)
[2020-08-06] MEDS: NIFEDIPINE 30 MG TAB.ER.24 PO SCH ×2 (09:14→21:29)
[2020-08-06] MEDS: OXCARBAZEPINE 150 MG TABLET PO SCH ×2 (09:14→21:29)
[2020-08-06] MEDS: DOXYCYCLINE HYCLATE 100 MG TABLET PO SCH ×2 (09:14→21:30)
[2020-08-06] MEDS: CLOPIDOGREL BISULFATE 75 MG TABLET PO SCH (09:14)
[2020-08-06] MEDS: ALPRAZOLAM 0.5 MG TABLET PO PRN ×3 (09:14→20:04)
[2020-08-06] MEDS: PANTOPRAZOLE SODIUM 20 MG TABLET.DR PO SCH (09:14)
[2020-08-06] MEDS: INSULIN GLARGINE,HUM.REC.ANLOG 1,000 UNIT/10 ML VIAL SUBCUT SCH (09:15)
[2020-08-06 10:25] LABS: ANION GAP 19 (5-19); BLOOD UREA NITROGEN 66 mg/dL (7-20); CALCIUM 8.9 mg/dL (8.4-10.2); CARBON DIOXIDE 27 mmol/L (22-30); CHLORIDE 93 mmol/L (98-107); CREATINE KINASE 97 U/L (30-135); GLUCOSE 165 mg/dL (75-110); POTASSIUM 5.2 mmol/L (3.6-5.0)
[2020-08-06 10:38] LABS: CREATINE KINASE MB 1.07 ng/mL (<4.55)
[2020-08-06 11:00] LABS: TROPONIN I 0.57 ng/mL
[2020-08-06] MEDS: PATIROMER 8.4 GM SUSP PACKET PO SCH (17:04)
--- NOTE | 2020-08-06 20:27 | PDOC PROGRESS REPORT ---
Subjective Progress Note for:: 08/06/20 Subjective:: Patient seen by the bedside Reason For Visit: HYPERKALEMIA,END STAGE RENAL DISEASE ON DIALYSIS Physical Exam Vital Signs: Temp Pulse Resp BP Pulse Ox 97.3 F 89 19 155/94 H 100 08/06/20 16:39 08/06/20 16:39 08/06/20 16:39 08/06/20 16:39 08/06/20 16:39 Intake & Output 08/05/20 08/06/20 08/07/20 06:59 06:59 06:59 Intake Total 630 1202 Output Total 5400 840 Balance -4770 362 Weight 117 kg 115.2 kg 115.2 kg General appearance: PRESENT: no acute distress Eye exam: PRESENT: PERRLA Respiratory exam: PRESENT: clear to auscultation freddy Cardiovascular exam: PRESENT: +S1, +S2 GI/Abdominal exam: PRESENT: soft Neurological exam: PRESENT: alert Results Laboratory Results: 08/04/20 13:50 08/06/20 09:53 08/06/20 09:53 Sodium 138.5 Potassium 5.2 H Chloride 93 L Carbon Dioxide 27 Anion Gap 19 BUN 66 H Creatinine 10.48 H Est GFR ( Amer) 5 L Glucose 165 H Calcium 8.9 08/04/20 08/04/20 08/04/20 13:50 13:50 17:35 Creatine Kinase 125 CK-MB (CK-2) Troponin I 1.140 0.956 08/06/20 08/06/20 09:53 09:53 Creatine Kinase 97 CK-MB (CK-2) 1.07 Troponin I 0.570 Impressions: Chest X-Ray 08/04/20 20:05 IMPRESSION: Enlarged cardiac silhouette with interstitial prominence raising the concern for pulmonary vascular congestion. Assessment & Plan - Diagnosis (1) Hyperkalemia Is this a current diagnosis for this admission?: Yes (2) ESRD (end stage renal disease) on dialysis Is this a current diagnosis for this admission?: Yes - Time Time Spent with patient: 15-24 minutes Level of Care: IMCU Medications reviewed and adjusted accordingly: Yes Anticipated discharge: Home - Inpatient Certification Based on my medical assessment, after consideration of the patient's comorbidities, presenting symptoms, or acuity I expect that the services needed warrant INPATIENT care.: Yes I certify that my determination is in accordance with my understanding of Medicare's requirements for reasonable and necessary INPATIENT services [42 CFR 412.3e].: Yes
[2020-08-06] MEDS: PAROXETINE HCL 20 MG TABLET PO SCH (21:29)
[2020-08-06] MEDS: ATORVASTATIN CALCIUM 80 MG TABLET PO SCH (21:30)
[2020-08-06] MEDS ORDERED: INSULIN GLARGINE,HUM.REC.ANLOG 1,000 UNIT/10 ML VIAL (PYX) SUBCUT ONE (22:00)
--- NOTE | 2020-08-07 00:50 | EKG REPORT ---
SEVERITY:- BORDERLINE ECG - SINUS TACHYCARDIA PROBABLE LEFT ATRIAL ABNORMALITY BORDERLINE PROLONGED QT INTERVAL : Confirmed by: Daniela Lemons 07-Aug-2020 00:49:35
[2020-08-07] MEDS: ZOLPIDEM TARTRATE 5 MG TABLET PO PRN ×2 (04:10→21:26)
[2020-08-07] MEDS: ALPRAZOLAM 0.5 MG TABLET PO PRN (04:10)
[2020-08-07 04:36] LABS: ABSOLUTE BASOPHILS # (AUTO) 0.1 10^3/uL (0.0-0.2); ABSOLUTE EOSINOPHILS # (AUTO) 0.4 10^3/uL (0.0-0.6); ABSOLUTE LYMPHOCYTES (AUTO) 2.2 10^3/uL (0.5-4.7); ABSOLUTE MONOCYTES (AUTO) 0.7 10^3/uL (0.1-1.4); ABSOLUTE NEUT (AUTO) 2.8 10^3/uL (1.7-8.2); BASOPHILS % (AUTO) 0.8 % (0-2); EOSINOPHILS % (AUTO) 7.3 % (0-6); HEMATOCRIT 32.9 % (36.0-47.0); HEMOGLOBIN 10.8 g/dL (12.0-15.5); MEAN CORPUSCULAR HEMOGLOBIN 28.4 pg (27.0-33.4); MEAN CORPUSCULAR HGB CONC 32.8 g/dL (32.0-36.0); MEAN CORPUSCULAR VOLUME 87 fl (80-97); MONOCYTES % (AUTO) 11.7 % (3-13); PLATELET COUNT 240 10^3/uL (150-450); RED BLOOD COUNT 3.79 10^6/uL (3.72-5.28); RED CELL DISTRIBUTION WIDTH 17.4 % (11.5-14.0); SEGMENTED NEUTROPHILS % (AUTO) 45.2 % (42-78); TOTAL CELLS COUNTED % (AUTO) 100 %; WHITE BLOOD COUNT 6.2 10^3/uL (4.0-10.5)
[2020-08-07 04:57] LABS: BLOOD UREA NITROGEN 75 mg/dL (7-20); CALCIUM 8.9 mg/dL (8.4-10.2); CARBON DIOXIDE 25 mmol/L (22-30); CHLORIDE 90 mmol/L (98-107); GLUCOSE 149 mg/dL (75-110); POTASSIUM 5.4 mmol/L (3.6-5.0)
[2020-08-07] MEDS ORDERED: NORMAL SALINE 1000 ML 1,000 ML IV PRN (05:00)
[2020-08-07 05:49] LABS: ANION GAP 22 (5-19)
[2020-08-07] MEDS: INSULIN LISPRO 100 UNIT/ML 3 ML VIAL SUBCUT SCH ×5 (08:52→21:38)
[2020-08-07] MEDS: CALCIUM ACETATE 667 MG CAPSULE PO SCH ×4 (11:49→18:16)
[2020-08-07] MEDS: OXYCODONE HCL IR 5 MG TABLET PO PRN ×3 (12:10→23:57)
[2020-08-07] MEDS: OXYCODONE-ACETAMINOPHEN 5-325 MG TABLET PO PRN ×3 (12:10→23:56)
[2020-08-07] MEDS: METOLAZONE 5 MG TABLET PO SCH ×2 (12:12→21:24)
[2020-08-07] MEDS: DOXYCYCLINE HYCLATE 100 MG TABLET PO SCH ×2 (12:12→21:25)
[2020-08-07] MEDS: PANTOPRAZOLE SODIUM 20 MG TABLET.DR PO SCH (12:12)
[2020-08-07] MEDS: NIFEDIPINE 30 MG TAB.ER.24 PO SCH ×2 (12:12→21:26)
[2020-08-07] MEDS: OXCARBAZEPINE 150 MG TABLET PO SCH ×2 (12:12→21:26)
[2020-08-07] MEDS: INSULIN GLARGINE,HUM.REC.ANLOG 1,000 UNIT/10 ML VIAL SUBCUT SCH ×2 (12:12→21:23)
[2020-08-07] MEDS: CLOPIDOGREL BISULFATE 75 MG TABLET PO SCH (12:12)
[2020-08-07] MEDS: ONDANSETRON HCL INJ/PF 4 MG/2 ML SDV IV PRN (12:18)
--- NOTE | 2020-08-07 13:16 | PDOC PROGRESS REPORT ---
Subjective Progress Note for:: 08/07/20 Reason For Visit: Patient seen today on dialysis. Undergoing dialysis without any issues. Patient denies any chest pain or shortness of breath or abdominal pains. Labs and medications were reviewed. Dialysis orders were reviewed with the treating dialysis nurse. Physical Exam Vital Signs: Temp Pulse Resp BP Pulse Ox 97.9 F 96 16 120/61 98 08/07/20 11:55 08/07/20 12:00 08/07/20 12:00 08/07/20 12:00 08/07/20 12:00 Intake & Output 08/06/20 08/07/20 08/08/20 06:59 06:59 06:59 Intake Total 630 1202 Output Total 5400 840 Balance -4770 362 Weight 115.2 kg 127.3 kg General appearance: PRESENT: no acute distress Respiratory exam: PRESENT: clear to auscultation freddy, decreased breath sounds. ABSENT: crackles Cardiovascular exam: PRESENT: +S1, +S2 GI/Abdominal exam: PRESENT: normal bowel sounds, soft. ABSENT: organomegaly, tenderness Extremities exam: PRESENT: pedal edema Neurological exam: PRESENT: alert, altered, awake, oriented to person, oriented to place Psychiatric exam: PRESENT: appropriate affect Results Laboratory Results: 08/07/20 04:07 08/07/20 04:07 08/07/20 08/07/20 04:07 04:07 WBC 6.2 RBC 3.79 Hgb 10.8 L Hct 32.9 L MCV 87 MCH 28.4 MCHC 32.8 RDW 17.4 H Plt Count 240 Seg Neutrophils % 45.2 Sodium 137.4 Potassium 5.4 H Chloride 90 L Carbon Dioxide 25 Anion Gap 22 H BUN 75 H Creatinine 11.28 H Est GFR ( Amer) 5 L Glucose 149 H Calcium 8.9 08/04/20 08/04/20 08/04/20 13:50 13:50 17:35 Creatine Kinase 125 CK-MB (CK-2) Troponin I 1.140 0.956 08/06/20 08/06/20 08/07/20 09:53 09:53 04:07 Creatine Kinase 97 CK-MB (CK-2) 1.07 Troponin I 0.570 0.444 Impressions: Chest X-Ray 08/04/20 20:05 IMPRESSION: Enlarged cardiac silhouette with interstitial prominence raising the concern for pulmonary vascular congestion. Assessment & Plan - Diagnosis (1) ESRD on dialysis Is this a current diagnosis for this admission?: Yes Plan: Patient currently undergoing dialysis which is being supervised. Vital signs are stable. Plan to remove 3-4 L of fluid as tolerated. Dialysis orders were reviewed with the treating dialysis nurse. (2) Hyperkalemia Is this a current diagnosis for this admission?: Yes Plan: Advised on proper dietary modifications. Patient had needs to have her AV fistula interrogated for possible recirculation and leading to hyperkalemia. Set as an outpatient. (3) Problem with dialysis access Is this a current diagnosis for this admission?: Yes Plan: As mentioned earlier. Plan for outpatient interrogation. (4) Essential (primary) hypertension Plan: Controlled. Monitor. (5) Diabetes mellitus type 1 with complications Is this a current diagnosis for this admission?: Yes Plan: Unfortunately not controlled. Advised for dietary modifications and compliance.
[2020-08-07] MEDS: PATIROMER 8.4 GM SUSP PACKET PO SCH (14:50)
[2020-08-07] MEDS ORDERED: DEXTROSE 50%-WATER SYRINGE 12.5 GM/25 ML DOSE IV PRN (15:30)
[2020-08-07] MEDS ORDERED: DEXTROSE 40% GEL 15 GM TUBE X 2 PO PRN (15:30)
[2020-08-07] MEDS ORDERED: GLUCAGON,HUMAN RECOMB 1 MG INJ IM PRN (15:30)
[2020-08-07] MEDS ORDERED: DEXTROSE 40% GEL 15 GM TUBE PO PRN (15:30)
[2020-08-07] MEDS ORDERED: DEXTROSE 50%-WATER SYRINGE 25 GM/50 ML DOSE IV PRN (15:30)
[2020-08-07] MEDS: RANOLAZINE 500 MG TAB.SR.12H PO SCH ×2 (18:14→21:25)
--- NOTE | 2020-08-07 19:46 | PDOC PROGRESS REPORT ---
Subjective Progress Note for:: 08/07/20 Subjective:: She complained of chest pain, pressure-like sensation, blood pressure elevated Reason For Visit: HYPERKALEMIA,END STAGE RENAL DISEASE ON DIALYSIS Physical Exam Vital Signs: Temp Pulse Resp BP Pulse Ox 97.9 F 89 16 183/90 H 100 08/07/20 17:04 08/07/20 17:04 08/07/20 12:00 08/07/20 17:04 08/07/20 17:04 Intake & Output 08/06/20 08/07/20 08/08/20 06:59 06:59 06:59 Intake Total 630 1202 358 Output Total 5400 840 5400 Balance -4763 263 -5042 Weight 115.2 kg 127.3 kg General appearance: PRESENT: no acute distress Eye exam: PRESENT: PERRLA Respiratory exam: PRESENT: clear to auscultation freddy Cardiovascular exam: PRESENT: +S1, +S2 GI/Abdominal exam: PRESENT: soft Neurological exam: PRESENT: alert Results Laboratory Results: 08/07/20 04:07 08/07/20 04:07 08/07/20 08/07/20 04:07 04:07 WBC 6.2 RBC 3.79 Hgb 10.8 L Hct 32.9 L MCV 87 MCH 28.4 MCHC 32.8 RDW 17.4 H Plt Count 240 Seg Neutrophils % 45.2 Sodium 137.4 Potassium 5.4 H Chloride 90 L Carbon Dioxide 25 Anion Gap 22 H BUN 75 H Creatinine 11.28 H Est GFR ( Amer) 5 L Glucose 149 H Calcium 8.9 08/04/20 08/04/20 08/04/20 13:50 13:50 17:35 Creatine Kinase 125 CK-MB (CK-2) Troponin I 1.140 0.956 08/06/20 08/06/20 08/07/20 09:53 09:53 04:07 Creatine Kinase 97 CK-MB (CK-2) 1.07 Troponin I 0.570 0.444 Impressions: Chest X-Ray 08/04/20 20:05 IMPRESSION: Enlarged cardiac silhouette with interstitial prominence raising the concern for pulmonary vascular congestion. Assessment & Plan - Diagnosis (1) Hyperkalemia Is this a current diagnosis for this admission?: Yes (2) ESRD (end stage renal disease) on dialysis Is this a current diagnosis for this admission?: Yes (3) Chest pain Qualifiers: Chest pain type: unspecified Qualified Code(s): R07.9 - Chest pain, unspecified Is this a current diagnosis for this admission?: Yes Plan: Start Ranexa 500 mg p.o. twice daily, for blood pressure start metoprolol succinate 50 mg p.o. daily - Time Time Spent with patient: 35 or more minutes Level of Care: IMCU Medications reviewed and adjusted accordingly: Yes Anticipated discharge: Home Anticipated DC Timeframe: within 24 hours
[2020-08-07] MEDS: ATORVASTATIN CALCIUM 80 MG TABLET PO SCH (21:24)
[2020-08-07] MEDS: PAROXETINE HCL 20 MG TABLET PO SCH (21:26)
[2020-08-07] MEDS: METOPROLOL SUCCINATE 50 MG TAB.SR.24H PO SCH (21:36)
[2020-08-08] MEDS: ALPRAZOLAM 0.5 MG TABLET PO PRN (01:59)
[2020-08-08 02:39] VITALS: BP 144/93
[2020-08-08] MEDS: INSULIN LISPRO 100 UNIT/ML 3 ML VIAL SUBCUT SCH ×6 (09:05→18:20)
[2020-08-08] MEDS: INSULIN GLARGINE,HUM.REC.ANLOG 1,000 UNIT/10 ML VIAL SUBCUT SCH (09:21)
[2020-08-08] MEDS: DOXYCYCLINE HYCLATE 100 MG TABLET PO SCH (09:22)
[2020-08-08] MEDS: PANTOPRAZOLE SODIUM 20 MG TABLET.DR PO SCH (09:22)
[2020-08-08] MEDS: CLOPIDOGREL BISULFATE 75 MG TABLET PO SCH (09:22)
[2020-08-08] MEDS: CALCIUM ACETATE 667 MG CAPSULE PO SCH ×3 (09:22→17:06)
[2020-08-08] MEDS: METOPROLOL SUCCINATE 50 MG TAB.SR.24H PO SCH (09:22)
[2020-08-08] MEDS: NIFEDIPINE 30 MG TAB.ER.24 PO SCH (09:22)
[2020-08-08] MEDS: RANOLAZINE 500 MG TAB.SR.12H PO SCH (09:22)
[2020-08-08] MEDS: OXCARBAZEPINE 150 MG TABLET PO SCH (09:23)
[2020-08-08] MEDS: METOLAZONE 5 MG TABLET PO SCH (09:23)
[2020-08-08] MEDS: ONDANSETRON HCL INJ/PF 4 MG/2 ML SDV IV PRN ×2 (12:50→17:04)
[2020-08-08] MEDS: PATIROMER 8.4 GM SUSP PACKET PO SCH ×2 (14:54→17:10)
--- NOTE | 2020-08-08 21:35 | PDOC DISCHARGE SUMMARY ---
Impression - Admit/DC Date/PCP Admission Date/Primary Care Provider: 08/05/20 03:25 HILARY HERNANDEZ MD Discharge Date: 08/08/20 - Discharge Diagnosis (1) Hyperkalemia Is this a current diagnosis for this admission?: Yes (2) ESRD (end stage renal disease) on dialysis Is this a current diagnosis for this admission?: Yes (3) Chest pain Is this a current diagnosis for this admission?: Yes (4) Diabetes mellitus type 1 with complications Is this a current diagnosis for this admission?: Yes - Additional Information Discharge Diet: Cardiac, Diabetic, Other (Comments) Discharge Activity: Activity As Tolerated, Balance Activity w/Rest, Weigh Daily Referrals: HILARY HERNANDEZ MD [Primary Care Provider] - Follow up as needed Prescriptions: Ranolazine [Ranexa 500 mg Tab.sr] 500 mg PO Q12 #60 tab.sr.12h Home Medications: Calcium Acetate [Phoslo 667 mg Capsule] 1,334 mg PO .BIDWITHSNACKS 09/25/19 Calcium Acetate [Phoslo 667 mg Capsule] 2,001 mg PO Q8 09/25/19 Insulin Detemir [Levemir] 35 unit SQ BID 09/25/19 Oxycodone HCl/Acetaminophen [Percocet 7.5-325 mg Tablet] 1 each PO QIDP PRN 09/25/19 Alprazolam 1 mg PO TIDP PRN 10/25/19 Metolazone 10 mg PO BID 10/25/19 Clopidogrel Bisulfate [Plavix 75 mg Tablet] 75 mg PO DAILY 11/29/19 Gabapentin Enacarbil [Horizant] 300 mg PO QPM 03/11/20 Insulin Aspart [Novolog] 12 unit SQ MEALS 03/11/20 Zolpidem Tartrate [Ambien] 10 mg PO HSP PRN 03/11/20 Omeprazole 20 mg PO DAILY 04/26/20 Atorvastatin Calcium [Lipitor 80 mg Tablet] 80 mg PO QHS 05/27/20 Oxcarbazepine 300 mg PO Q12 05/27/20 Linaclotide [Linzess] 290 mcg PO DAILY 07/29/20 Doxycycline Hyclate 100 mg PO BID #14 tablet. 08/02/20 Nifedipine [Nifedipine ER] 60 mg PO Q12 08/05/20 Paroxetine HCl [Paxil] 80 mg PO QPM 08/05/20 Ranolazine [Ranexa 500 mg Tab.sr] 500 mg PO Q12 #60 tab.sr.12h 08/08/20 History of Present Illiness History of Present Illness: ERICH GOODMAN is a 35 year old female With end-stage renal disease on maintenance hemodialysis, she was just discharged from the hospital on 08/02/2020, she came to the emergency room for evaluation of, nausea, vomiting, metallic taste in the mouth, in the emergency room she was found to have severe hyperkalemia, She was treated medically for the potassium and she is admitted for further management. There was concern that she may have malfunction of the fistula that she uses for dialysis and the fistula needs to be evaluated by vascular surgery because of the concern for malfunction of the fistula Hospital Course Hospital Course: Patient was admitted for the management of hyperkalemia,End-stage renal disease on hemodialysis. She was seen by nephrology at dialysis was supervised by nephrology she complained of chest pain, She was treated with Ranexa with improvement of her symptoms. She has dysfunction of the fistula for dialysis the plan is for her to see vascular surgery tomorrow for evaluation and management of fistula Physical Exam Vital Signs: Temp Pulse Resp BP Pulse Ox 98.2 F 78 20 144/93 H 97 08/08/20 18:25 08/08/20 18:25 08/08/20 18:25 08/08/20 18:25 08/08/20 18:25 Intake & Output 08/07/20 08/08/20 08/09/20 06:59 06:59 06:59 Intake Total 1202 478 Output Total 840 5400 Balance 362 -2282 Weight 127.3 kg 117.2 kg General appearance: PRESENT: no acute distress Eye exam: PRESENT: PERRLA Respiratory exam: PRESENT: clear to auscultation freddy Cardiovascular exam: PRESENT: +S1, +S2 GI/Abdominal exam: PRESENT: soft Neurological exam: PRESENT: alert Results Laboratory Results: WBC 6.2 10^3/uL (4.0-10.5) 08/07/20 04:07 RBC 3.79 10^6/uL (3.72-5.28) 08/07/20 04:07 Hgb 10.8 g/dL (12.0-15.5) L 08/07/20 04:07 Hct 32.9 % (36.0-47.0) L 08/07/20 04:07 MCV 87 fl (80-97) 08/07/20 04:07 MCH 28.4 pg (27.0-33.4) 08/07/20 04:07 MCHC 32.8 g/dL (32.0-36.0) 08/07/20 04:07 RDW 17.4 % (11.5-14.0) H 08/07/20 04:07 Plt Count 240 10^3/uL (150-450) 08/07/20 04:07 Lymph % (Auto) 35.0 % (13-45) 08/07/20 04:07 [place] % (Auto) 11.7 % (3-13) 08/07/20 04:07 Eos % (Auto) 7.3 % (0-6) H 08/07/20 04:07 Baso % (Auto) 0.8 % (0-2) 08/07/20 04:07 Absolute Neuts (auto) 2.8 10^3/uL (1.7-8.2) 08/07/20 04:07 Absolute Lymphs (auto) 2.2 10^3/uL (0.5-4.7) 08/07/20 04:07 Absolute Monos (auto) 0.7 10^3/uL (0.1-1.4) 08/07/20 04:07 Absolute Eos (auto) 0.4 10^3/uL (0.0-0.6) 08/07/20 04:07 Absolute Basos (auto) 0.1 10^3/uL (0.0-0.2) 08/07/20 04:07 Seg Neutrophils % 45.2 % (42-78) 08/07/20 04:07 Sodium 137.4 mmol/L (137-145) 08/07/20 04:07 Potassium 5.4 mmol/L (3.6-5.0) H 08/07/20 04:07 Chloride 90 mmol/L (98-107) L 08/07/20 04:07 Carbon Dioxide 25 mmol/L (22-30) 08/07/20 04:07 Anion Gap 22 (5-19) H 08/07/20 04:07 BUN 75 mg/dL (7-20) H 08/07/20 04:07 Creatinine 11.28 mg/dL (0.52-1.25) H 08/07/20 04:07 Est GFR ( Amer) 5 (>60) L 08/07/20 04:07 Est GFR (MDRD) Non-Af 4 (>60) L 08/07/20 04:07 Glucose 149 mg/dL (75-110) H 08/07/20 04:07 POC Glucose 103 mg/dL (70-110) 08/08/20 18:17 Calcium 8.9 mg/dL (8.4-10.2) 08/07/20 04:07 Magnesium 2.4 mg/dL (1.6-2.3) H 08/04/20 13:50 Total Bilirubin 0.4 mg/dL (0.2-1.3) 08/04/20 13:50 Direct Bilirubin 0.4 mg/dL (0.0-0.4) 08/04/20 13:50 Neonat Total Bilirubin Not Reportable 08/04/20 13:50 Neonat Direct Bilirubin Not Reportable 08/04/20 13:50 Neonat Indirect Bili Not Reportable 08/04/20 13:50 AST 18 U/L (14-36) 08/04/20 13:50 ALT 11 U/L (<35) 08/04/20 13:50 Alkaline Phosphatase 89 U/L (38-126) 08/04/20 13:50 Creatine Kinase 97 U/L (30-135) 08/06/20 09:53 CK-MB (CK-2) 1.07 ng/mL (<4.55) 08/06/20 09:53 Troponin I 0.444 ng/mL 08/07/20 04:07 Total Protein 8.0 g/dL (6.3-8.2) 08/04/20 13:50 Albumin 4.4 g/dL (3.5-5.0) 08/04/20 13:50 COVID-19 Source Cancelled 08/04/20 13:50 COVID-19 ([facility]) Cancelled 08/04/20 13:50 SARS-CoV-2 (PCR) NEGATIVE (NEGATIVE) 08/04/20 13:50 0908/04/20 08/06/20 13:50 17:35 09:53 CK-MB (CK-2) 1.07 Troponin I 1.140 0.956 0.570 08/07/20 04:07 CK-MB (CK-2) Troponin I 0.444 Impressions: Chest X-Ray 08/04/20 20:05 IMPRESSION: Enlarged cardiac silhouette with interstitial prominence raising the concern for pulmonary vascular congestion. Stroke Is this a Stroke Patient?: No Acute Heart Failure Is this a Heart Failure Patient?: No
== END 2020-08-08 19:34 | disposition home or self-care (01) | DRG 640 ==
LOC: ER 12:48 → EH 08-05 03:25 → 3W 08-05 06:38
PROVIDERS: ADMIT Internal Medicine; ATTEND Internal Medicine
PROC: 5A1D70Z Performance of Urinary Filtration, Intermittent, Less than 6 Hours Per Day (ICD-10-PCS; principal; 2020-08-05)
DX: E87.5 Hyperkalemia (principal); N18.6 End stage renal disease; I13.2 Hypertensive heart and chronic kidney disease with heart failure and with stage 5 chronic kidney disease, or end stage renal disease; I50.32 Chronic diastolic (congestive) heart failure; T82.590A Other mechanical complication of surgically created arteriovenous fistula, initial encounter; E10.22 Type 1 diabetes mellitus with diabetic chronic kidney disease; D63.1 Anemia in chronic kidney disease; I25.10 Atherosclerotic heart disease of native coronary artery without angina pectoris; I25.2 Old myocardial infarction; Z99.2 Dependence on renal dialysis; Z20.828 Contact with and (suspected) exposure to other viral communicable diseases
CPT/HCPCS: 36415; 71045; 80048; 80053; 82550; 82553; 82962; 83735; 84484; 85025; 87635; 93005; 93010; 94640; 96374; 96375; 96376; 99291; C9803; J0610; J1815; J2405; J3010; J3490; J7613; S0119

== ENCOUNTER 2020-08-09 17:00 | Emergency (ER) | payer MEDICARE, MEDICAID ==
--- NOTE | 2020-08-09 17:18 | ER Document Report ---
ED Medical Screen (RME) - General Chief Complaint: Fall Injury Stated Complaint: FALL/FOREHEAD INJURY Time Seen by Provider: 08/09/20 17:15 Primary Care Provider: HILARY HERNANDEZ MD [Primary Care Provider] - Follow up as needed Mode of Arrival: Medic Information source: Patient Notes: 35-year-old female presented to ED for complaint of fall. She states that she was coming back from [place] and she stepped out of the transportation van and fell. She states she does not know if she tripped slipped or what happened she just fell hitting her head her right knee. She states she went to [place] to have her fistula worked on. She states her neck is also hurting. Patient is a dialysis patient. She states she does not know if she passed out or what happen ed she just fell. She states she does not know if she lost consciousness. Patient is alert and oriented able to answer questions at this time. I have greeted and performed a rapid initial assessment of this patient. A comprehensive ED assessment and evaluation of the patient, analysis of test results and completion of medical decision making process will be conducted by an additional ED providers. TRAVEL OUTSIDE OF THE [place] IN LAST 30 DAYS: No - Related Data Allergies/Adverse Reactions: aspirin [Aspirin] Allergy (Verified 07/29/20 09:52) Anaphylaxis ciprofloxacin [From Cipro] Allergy (Verified 07/29/20 09:52) Anaphylaxis clindamycin [Clindamycin] Allergy (Verified 07/29/20 09:52) hydrocodone [From Vicodin] Allergy (Verified 07/29/20 09:52) ibuprofen [From Motrin] Allergy (Verified 07/29/20 09:52) Anaphylaxis lidocaine [From Lidoderm] Allergy (Verified 07/29/20 09:52) Generalized rash tramadol HCl [From Ultram] Allergy (Verified 07/29/20 09:52) vancomycin [Vancomycin] Allergy (Verified 07/29/20 09:52) Shortness of Breath nitroglycerin [Nitroglycerin] Adverse Reaction (Intermediate, Verified 07/29/20 09:52) Joint pain Past Medical History - Social History Family history: Reviewed & Not Pertinent - Past Medical History Cardiac Medical History: Reports: Hx Congestive Heart Failure, Hx Coronary Artery Disease, Hx Heart Attack, Hx Hypertension, Hx Heart Murmur Pulmonary Medical History: Reports: Hx Asthma, Hx Pneumonia Neurological Medical History: Reports: Hx Migraine, Hx Seizures - only r/t low calcium. Denies: Hx Parkinson's Disease Endocrine Medical History: Reports: Hx Diabetes Mellitus Type 1, Hx Diabetes Mellitus Type 2 Renal/ Medical History: Reports: Hx End Stage Renal Disease - On hemodialysis -W-, Hx Hemodialysis - MWF, Hx Ovarian Cysts. Denies: Hx Peritoneal Dialysis Malignancy Medical History: GI Medical History: Reports: Hx Gastritis Musculoskeltal Medical History: Skin Medical History: Reports Hx Psoriasis Psychiatric Medical History: Reports: Hx Depression Traumatic Medical History: Infectious Medical History: Past Surgical History: Reports: Hx Appendectomy, Hx Cholecystectomy, Hx Vascular Surgery - Lt AV Fistula and graft; Rt AV fistula - Immunizations Immunizations up to date: Yes Hx Diphtheria, Pertussis, Tetanus Vaccination: Yes Physical Exam - Vital signs Vitals: Temp Pulse Resp BP Pulse Ox 98.7 F 88 16 152/98 H 97 08/09/20 17:11 08/09/20 17:11 08/09/20 17:11 08/09/20 17:11 08/09/20 17:11 Course - Vital Signs Vital signs: Temp Pulse Resp BP Pulse Ox 98.7 F 88 16 152/98 H 97 08/09/20 17:11 08/09/20 17:11 08/09/20 17:11 08/09/20 17:11 08/09/20 17:11 Doctor's Discharge - Discharge Referrals: HILARY HERNANDEZ MD [Primary Care Provider] - Follow up as needed
[2020-08-09] MEDS ORDERED: ACETAMINOPHEN 325 MG TABLET PO ONE (17:21)
--- NOTE | 2020-08-09 18:10 | RADIOLOGY REPORT (SQ) ---
EXAM DESCRIPTION: KNEE RIGHT 4 VIEWS IMAGES COMPLETED DATE/TIME: 08/09/2020 5:50 pm REASON FOR STUDY: fall pain head neck and r knee COMPARISON: None. NUMBER OF VIEWS: Four views. TECHNIQUE: AP, lateral, and both oblique radiographic images acquired of the right knee. LIMITATIONS: None. FINDINGS: MINERALIZATION: Normal. BONES: No acute fracture or dislocation. No worrisome bone lesions. JOINT: No effusion. SOFT TISSUES: No soft tissue swelling. No radio-opaque foreign body. OTHER: No other significant finding. IMPRESSION: NEGATIVE STUDY OF THE RIGHT KNEE. NO RADIOGRAPHIC EVIDENCE OF ACUTE INJURY. TECHNICAL DOCUMENTATION: JOB ID: [id number] 2010 [employer]- All Rights Reserved Reading location - IP/workstation name: [email or web address]
--- NOTE | 2020-08-09 18:20 | RADIOLOGY REPORT (SQ) ---
EXAM DESCRIPTION: CT HEAD WITHOUT IMAGES COMPLETED DATE/TIME: 08/09/2020 6:11 pm REASON FOR STUDY: fall pain head neck and r knee COMPARISON: 06/26/2020 TECHNIQUE: Axial images acquired through the brain without intravenous contrast. Images reviewed wi th bone, brain and subdural windows. Additional sagittal and coronal reconstructions were generated. Images stored on PACS. All CT scanners at this facility use dose modulation, iterative reconstruction, and/or weight based d osing when appropriate to reduce radiation dose to as low as reasonably achievable (ALARA). [facility]: Dose Right [facility]: CareDose [facility]: Dose Right [facility]: Teradose 4D [facility]: Becual RADIATION DOSE: CT Rad equipment meets quality standard of care and radiation dose reduction techniq ues were employed. CTDIvol: 53.2 mGy. DLP: 991 mGy-cm. mGy. LIMITATIONS: None. FINDINGS: VENTRICLES: Normal size and contour. CEREBRUM: No masses. No hemorrhage. No midline shift. No evidence for acute infarction. Normal gra y/white matter differentiation. No areas of low density in the white matter. CEREBELLUM: No masses. No hemorrhage. No alteration of density. No evidence for acute infarction. EXTRAAXIAL SPACES: No fluid collections. No masses. ORBITS AND GLOBE: No intra- or extraconal masses. Normal contour of globe without masses. CALVARIUM: No fracture. PARANASAL SINUSES: No fluid or mucosal thickening. SOFT TISSUES: No mass or hematoma. OTHER: No other significant finding. IMPRESSION: NORMAL BRAIN CT WITHOUT CONTRAST. EVIDENCE OF ACUTE STROKE: NO. COMMENT: Quality ID # [id number]: Final reports with documentation of one or more dose reduction techniques (e.g., Automated exposure control, adjustment of the mA and/or kV according to patient size, use of iterative reconstruction technique) TECHNICAL DOCUMENTATION: JOB ID: [id number] I have 2010 [employer]- All Rights Reserved Reading location - IP/workstation name: [email or web address]
--- NOTE | 2020-08-09 18:22 | RADIOLOGY REPORT (SQ) ---
EXAM DESCRIPTION: CT CERVICAL SPINE WITHOUT IMAGES COMPLETED DATE/TIME: 08/09/2020 6:11 pm REASON FOR STUDY: fall pain head neck and r knee COMPARISON: None. TECHNIQUE: Axial images acquired through the cervical spine without intravenous contrast. Images re viewed with lung, soft tissue and bone windows. Reconstructed coronal and sagittal MPR images review ed. Images stored on PACS. All CT scanners at this facility use dose modulation, iterative reconstruction, and/or weight based d osing when appropriate to reduce radiation dose to as low as reasonably achievable (ALARA). [facility]: Dose Right [facility]: CareDose [facility]: Dose Right [facility]: Teradose 4D [facility]: Smart ideeli RADIATION DOSE: CT Rad equipment meets quality standard of care and radiation dose reduction techniq ues were employed. CTDIvol: 37.5 mGy. DLP: 829 mGy-cm. mGy. LIMITATIONS: None. FINDINGS: ALIGNMENT: Anatomic. MINERALIZATION: Normal. VERTEBRAL BODIES: No fractures or dislocation. DISCS: No significant disc disease. FACETS, LATERAL MASSES, POSTERIOR ELEMENTS: No fractures. No dislocation. No acute findings. HARDWARE: None in the spine. VISUALIZED RIBS: No fractures. LUNG APICES AND SOFT TISSUES: No significant or acute findings. OTHER: No other significant finding. IMPRESSION: NO ACUTE OR SIGNIFICANT FINDINGS IN THE CERVICAL SPINE. TECHNICAL DOCUMENTATION: JOB ID: [id number] Quality ID # [id number]: Final reports with documentation of one or more dose reduction techniques (e.g., Au tomated exposure control, adjustment of the mA and/or kV according to patient size, use of iterative reconstruction technique) 2010 [employer]- All Rights Reserved Reading location - IP/workstation name: [email or web address]
[2020-08-09] MEDS ORDERED: ACETAMINOPHEN 325 MG TABLET ONE (22:22)
--- NOTE | 2020-08-09 22:28 | ER Document Report ---
ED General - General Chief Complaint: Fall Injury Stated Complaint: FALL/FOREHEAD INJURY Time Seen by Provider: 08/09/20 17:15 Primary Care Provider: HILARY HERNANDEZ MD [Primary Care Provider] - Follow up as needed Mode of Arrival: Medic Information source: Patient Notes: ED Medical Screen (Eitan dietz) - General Chief Complaint: Fall Injury Stated Complaint: FALL/FOREHEAD INJURY Time Seen by Provider: 08/09/20 17:15 Primary Care Provider: HILARY HERNANDEZ MD [Primary Care Provider] - Follow up as needed Mode of Arrival: Medic Information source: Patient Notes: 35-year-old female presented to ED for complaint of fall. She states that she was coming back from [place] and she stepped out of the transportation van and fell. She states she does not know if she tripped slipped or what happened she just fell hitting her head her right knee. She states she went to [place] to have her fistula worked on. She states her neck is also hurting. Patient is a dialysis patient. She states she does not know if she passed out or what hap pened she just fell. She states she does not know if she lost consciousness. Patient is alert and oriented able to answer questions at this time. MY NOTES 35-year-old black female arrives with chief complaint of right periorbital edema and tenderness and abrasion to right knee after she stepped out of a transport van coming back from [place] and tripped and fell injuring her right head and right knee. She also complains of dorsum of neck being painful. She is a ESRD patient on dialysis. She questions whether she had any LOC but her CT of head and neck are within normal limits here and her right knee x-ray was without any fractures. Patient has morbid obesity and laying in the room sleeping with quite sonorous nasal sounds and I had to shake her in order to wake her. She is in bed #12. TRAVEL OUTSIDE OF THE [place] IN LAST 30 DAYS: No - HPI Onset: This afternoon Onset/Duration: Sudden, Better Quality of pain: Achy Severity: Mild Pain Level: 1 Associated symptoms: Headache, Other - right knee and dorsal neckpain Exacerbated by: Movement Relieved by: Denies Similar symptoms previously: No Recently seen / treated by doctor: No - Related Data Allergies/Adverse Reactions: aspirin [Aspirin] Allergy (Verified 07/29/20 09:52) Anaphylaxis ciprofloxacin [From Cipro] Allergy (Verified 07/29/20 09:52) Anaphylaxis clindamycin [Clindamycin] Allergy (Verified 07/29/20 09:52) hydrocodone [From Vicodin] Allergy (Verified 07/29/20 09:52) ibuprofen [From Motrin] Allergy (Verified 07/29/20 09:52) Anaphylaxis lidocaine [From Lidoderm] Allergy (Verified 07/29/20 09:52) Generalized rash tramadol HCl [From Ultram] Allergy (Verified 07/29/20 09:52) vancomycin [Vancomycin] Allergy (Verified 07/29/20 09:52) Shortness of Breath nitroglycerin [Nitroglycerin] Adverse Reaction (Intermediate, Verified 07/29/20 09:52) Joint pain Past Medical History - General Information source: Patient - Social History Smoking Status: Unknown if Ever Smoked Cigarette use (# per day): No Chew tobacco use (# tins/day): No Smoking Education Provided: No Frequency of alcohol use: None Drug Abuse: None Lives with: Family Family History: Reviewed & Not Pertinent, Hypertension Patient has suicidal ideation: No Patient has homicidal ideation: No - Past Medical History Cardiac Medical History: Reports: Hx Congestive Heart Failure, Hx Coronary Artery Disease, Hx Heart Attack, Hx Hypertension, Hx Heart Murmur Pulmonary Medical History: Reports: Hx Asthma, Hx Pneumonia Neurological Medical History: Reports: Hx Migraine, Hx Seizures - only r/t low calcium. Denies: Hx Parkinson's Disease Endocrine Medical History: Reports: Hx Diabetes Mellitus Type 1, Hx Diabetes Mellitus Type 2 Renal/ Medical History: Reports: Hx End Stage Renal Disease - On hemodialysis -W-, Hx Hemodialysis - MWF, Hx Ovarian Cysts. Denies: Hx Peritoneal Dialysis Malignancy Medical History: GI Medical History: Reports: Hx Gastritis Musculoskeletal Medical History: Skin Medical History: Reports Hx Psoriasis Psychiatric Medical History: Reports: Hx Depression Traumatic Medical History: Infectious Medical History: Past Surgical History: Reports: Hx Appendectomy, Hx Cholecystectomy, Hx Vascular Surgery - Lt AV Fistula and graft; Rt AV fistula - Immunizations Immunizations up to date: Yes Hx Diphtheria, Pertussis, Tetanus Vaccination: Yes Hx Pneumococcal Vaccination: 08/22/11 Review of Systems - Review of Systems Constitutional: No symptoms reported, Weakness. denies: Other, Weight gain, Recent illness EENT: See HPI, Eye pain - right orbital edema pain. denies: Nose congestion, Sinus pressure, Difficulty swallowing Cardiovascular: No symptoms reported Respiratory: No symptoms reported Gastrointestinal: No symptoms reported. denies: Vomiting, Constipation, Blood streaked bowels, Poor appetite, Poor fluid intake Genitourinary: No symptoms reported. denies: Frequency, Flank pain, Hematuria Female Genitourinary: No symptoms reported. denies: Post menopausal, Heavy/abnormal periods Musculoskeletal: See HPI, Joint pain - r knee abrasion pain, Neck pain Skin: No symptoms reported Hematologic/Lymphatic: No symptoms reported Neurological/Psychological: See HPI, Weakness. denies: Gait changes, Paralysis, Seizure, Lost consciousness, Headaches Physical Exam - Vital signs Vitals: Temp Pulse Resp BP Pulse Ox 98.7 F 88 16 152/98 H 97 08/09/20 17:11 08/09/20 17:11 08/09/20 17:11 08/09/20 17:11 08/09/20 17:11 Interpretation: Hypertensive - General General appearance: Other - sleepy easily awakened - HEENT Head: Normocephalic, Other - r periorbital edema tender on p/p Eyes: Normal Conjunctiva: Normal Extraocular movements intact: Yes Pupils: PERRL Sinus: Normal Nasal: Normal Mouth/Lips: Normal Mucous membranes: Normal Pharynx: Peritonsillar abscess Neck: Normal - Respiratory Respiratory status: No respiratory distress Chest status: Nontender Breath sounds: Normal Chest palpation: Normal - Cardiovascular Rhythm: Regular Heart sounds: Normal auscultation Murmur: No - Abdominal Inspection: Normal Distension: No distension Bowel sounds: Normal Tenderness: Nontender Organomegaly: No organomegaly - Rectal Hemorrhoids: Other - deferred - Genitourinary [place] exam: Other - deferred - Back Back: Normal - Extremities General upper extremity: Normal inspection General lower extremity: Tender - abrasion to right patella ; r ant knee patella tender to p/p rom - Neurological Neuro grossly intact: Yes Cognition: Normal Orientation: AAOx4 [place] Coma Scale Eye Opening: Spontaneous [place] Coma Scale Verbal: Oriented [place] Coma Scale Motor: Obeys Commands [place] Coma Scale Total: 15 Speech: Normal Motor strength normal: LUE, RUE, LLE, RLE Sensory: Normal - Psychological Associated symptoms: Normal affect - Skin Skin Temperature: Warm Skin Moisture: Dry - except right knee Course - Vital Signs Vital signs: Temp Pulse Resp BP Pulse Ox 98.6 F 95 18 220/95 H 94 08/09/20 22:45 08/09/20 22:45 08/09/20 22:45 08/09/20 22:45 08/09/20 22:45 - Laboratory Result Diagrams: 08/09/20 22:30 08/09/20 22:30 Laboratory results interpreted by me: 08/09/20 08/09/20 22:30 22:30 Hgb 10.9 L Hct 33.0 L RDW 17.0 H Sodium 133.6 L Potassium 5.7 H Chloride 92 L BUN 82 H Creatinine 11.85 H Est GFR ( Amer) 4 L Est GFR (MDRD) Non-Af 4 L Glucose 196 H - Diagnostic Test Radiology reviewed: Reports reviewed - cts head neck wnl ; xray r knee neg Discharge - Discharge Clinical Impression: Fall Qualifiers: Encounter type: initial encounter Qualified Code(s): W19.XXXA - Unspecified fa ll, initial encounter Head injury Qualifiers: Encounter type: initial encounter Qualified Code(s): S09.90XA - Unspecified i njury of head, initial encounter Right knee injury Qualifiers: Encounter type: initial encounter Qualified Code(s): S89.91XA - Unspecified injury of right lower leg, initial encounter Condition: Good Disposition: HOME, SELF-CARE Additional Instructions: Follow-up with personal doctor; return to ER as needed; take your usual medications ;keep wound clean and dry; Referrals: HILARY HERNANDEZ MD [Primary Care Provider] - Follow up as needed
[2020-08-09 22:53] LABS: ABSOLUTE EOSINOPHILS # (AUTO) 0.2 10^3/uL (0.0-0.6); ABSOLUTE LYMPHOCYTES (AUTO) 2.1 10^3/uL (0.5-4.7); ABSOLUTE MONOCYTES (AUTO) 0.6 10^3/uL (0.1-1.4); ABSOLUTE NEUT (AUTO) 6.5 10^3/uL (1.7-8.2); BASOPHILS % (AUTO) 0.5 % (0-2); EOSINOPHILS % (AUTO) 2.2 % (0-6); HEMOGLOBIN 10.9 g/dL (12.0-15.5); MEAN CORPUSCULAR HEMOGLOBIN 28.4 pg (27.0-33.4); MEAN CORPUSCULAR HGB CONC 33.1 g/dL (32.0-36.0); MEAN CORPUSCULAR VOLUME 86 fl (80-97); MONOCYTES % (AUTO) 6.2 % (3-13); PLATELET COUNT 262 10^3/uL (150-450); RED BLOOD COUNT 3.85 10^6/uL (3.72-5.28); SEGMENTED NEUTROPHILS % (AUTO) 69.1 % (42-78); TOTAL CELLS COUNTED % (AUTO) 100 %; WHITE BLOOD COUNT 9.4 10^3/uL (4.0-10.5)
[2020-08-09 23:02] LABS: ALBUMIN 4.3 g/dL (3.5-5.0); ALKALINE PHOSPHATASE 85 U/L (38-126); ANION GAP 17 (5-19); ASPARTATE AMINO TRANSFERASE 18 U/L (14-36); BILIRUBIN,DIRECT 0.4 mg/dL (0.0-0.4); BILIRUBIN,TOTAL 0.4 mg/dL (0.2-1.3); BLOOD UREA NITROGEN 82 mg/dL (7-20); CALCIUM 8.8 mg/dL (8.4-10.2); CARBON DIOXIDE 25 mmol/L (22-30); CHLORIDE 92 mmol/L (98-107); GLUCOSE 196 mg/dL (75-110); POTASSIUM 5.7 mmol/L (3.6-5.0); TOTAL PROTEIN 7.8 g/dL (6.3-8.2)
[2020-08-09] MEDS ORDERED: OXYCODONE-ACETAMINOPHEN 5-325 MG TABLET PO ONE (23:16)
[2020-08-10 00:24] VITALS: BP 189/90
== END 2020-08-10 00:24 | disposition home or self-care (01) ==
LOC: ER 17:00
DX: S09.90XA Unspecified injury of head, initial encounter (principal); S80.211A Abrasion, right knee, initial encounter; M54.2 Cervicalgia; R51 Headache; W19.XXXA Unspecified fall, initial encounter; Y93.89 Activity, other specified; E11.22 Type 2 diabetes mellitus with diabetic chronic kidney disease; I13.2 Hypertensive heart and chronic kidney disease with heart failure and with stage 5 chronic kidney disease, or end stage renal disease; I50.9 Heart failure, unspecified; N18.6 End stage renal disease; J36 Peritonsillar abscess; R53.1 Weakness; Z99.2 Dependence on renal dialysis; E66.01 Morbid (severe) obesity due to excess calories; I25.10 Atherosclerotic heart disease of native coronary artery without angina pectoris; J45.909 Unspecified asthma, uncomplicated; Z87.892 Personal history of anaphylaxis; Z88.8 Allergy status to other drugs, medicaments and biological substances; Z88.1 Allergy status to other antibiotic agents; Z88.6 Allergy status to analgesic agent; Z88.5 Allergy status to narcotic agent
CPT/HCPCS: 99285; 36415; 82962; 85025; 80053; 73564; 70450; 72125; A9270 ×2

== ENCOUNTER 2020-08-28 12:08 | Emergency (ER) | payer MEDICARE, MEDICAID ==
--- NOTE | 2020-08-28 14:14 | ER Document Report ---
ED General - General Chief Complaint: Chest Pain Stated Complaint: CHEST PAIN/SHORT OF BREATH Time Seen by Provider: 08/28/20 13:56 Primary Care Provider: HILARY HERNANDEZ MD [Primary Care Provider] - Follow up as needed Mode of Arrival: Ambulatory Information source: Patient Notes: Patient is a 35-year-old -[place] female with uncontrolled type 1 diabetes mellitus, end-stage renal disease, hypertension, and morbid obesity here from dialysis. About 1 hour into dialysis patient states she developed chest pain and shortness of breath. She has no fevers or chills. No cough. No malaise or myalgias TRAVEL OUTSIDE OF THE [place] IN LAST 30 DAYS: No - Related Data Allergies/Adverse Reactions: aspirin [Aspirin] Allergy (Verified 08/28/20 12:45) Anaphylaxis ciprofloxacin [From Cipro] Allergy (Verified 08/28/20 12:45) Anaphylaxis clindamycin [Clindamycin] Allergy (Verified 08/28/20 12:45) hydrocodone [From Vicodin] Allergy (Verified 08/28/20 12:45) ibuprofen [From Motrin] Allergy (Verified 08/28/20 12:45) Anaphylaxis lidocaine [From Lidoderm] Allergy (Verified 08/28/20 12:45) Generalized rash tramadol HCl [From Ultram] Allergy (Verified 08/28/20 12:45) vancomycin [Vancomycin] Allergy (Verified 08/28/20 12:45) Shortness of Breath nitroglycerin [Nitroglycerin] Adverse Reaction (Intermediate, Verified 08/28/20 12:45) Joint pain Past Medical History - Social History Smoking Status: Unknown if Ever Smoked Family History: Reviewed & Not Pertinent, Hypertension Patient has homicidal ideation: No - Past Medical History Cardiac Medical History: Reports: Hx Congestive Heart Failure, Hx Coronary Artery Disease, Hx Heart Attack, Hx Hypertension, Hx Heart Murmur Pulmonary Medical History: Reports: Hx Asthma, Hx Pneumonia Neurological Medical History: Reports: Hx Migraine, Hx Seizures - only r/t low calcium. Denies: Hx Parkinson's Disease Endocrine Medical History: Reports: Hx Diabetes Mellitus Type 1, Hx Diabetes Mellitus Type 2 Renal/ Medical History: Reports: Hx End Stage Renal Disease - On hemodialysis M-W-F, Hx Hemodialysis - MWF, Hx Ovarian Cysts. Denies: Hx Peritoneal Dialysis Malignancy Medical History: GI Medical History: Reports: Hx Gastritis Musculoskeletal Medical History: Skin Medical History: Reports Hx Psoriasis Psychiatric Medical History: Reports: Hx Depression Traumatic Medical History: Infectious Medical History: Past Surgical History: Reports: Hx Appendectomy, Hx Cholecystectomy, Hx Vascular Surgery - Lt AV Fistula and graft; Rt AV fistula - Immunizations Immunizations up to date: Yes Hx Diphtheria, Pertussis, Tetanus Vaccination: Yes Hx Pneumococcal Vaccination: 08/22/11 Review of Systems - Review of Systems Notes: Constitutional: No fevers. No chills. EENT: No eye redness. No eye pain. No ear pain. No sore throat. Cardiovascular: +chest pain. No palpitations. Respiratory: No cough. +shortness of breath. No respiratory distress. Gastrointestinal: No abdominal pain. No nausea, vomiting, or diarrhea. Genitourinary: Atraumatic. No lesions. No pain. No discharge. Musculoskeletal: Atraumatic. No swelling. No deformities. Skin: No rash or lesions. Lymphatic: No swollen lymph nodes. Neurologic: No headache. No syncope. Psychiatric: No suicidal or homicidal ideation. Physical Exam - Vital signs Vitals: Temp Pulse Resp BP Pulse Ox 98.3 F 99 20 136/85 H 95 08/28/20 12:24 08/28/20 12:24 08/28/20 12:24 08/28/20 12:24 08/28/20 12:24 - Notes Notes: General: Morbidly obese and chronically ill-appearing. Nontoxic appearance and in no acute distress Cardiac: Well-perfused. Regular rate and rhythm. No murmurs, rubs, or gallops. Pulmonary: No respiratory distress. No cyanosis. Bilateral lung mckeon are clear to auscultation. Abdominal: Non-distended. Non-rigid. Bowels sounds are present in all four quadrants. No guarding or rebound. HEENT: Head is atraumatic. Conjunctivae not reddened. No tearing. PERRL. EOMI. Orbits atraumatic. No periorbital swelling or erythema. Oropharynx is without erythema, swelling, or exudates. Neck: Supple. No adenopathy. No meningismus. Dermatologic: Warm with good turgor. No rash. Atraumatic. Chest: Atraumatic. No chest wall tenderness to palpation. Musculoskeletal: Moves all extremities well. No range of motion deficits. no muscular or joint tenderness. No paraspinal muscle tenderness. no midline spinal tenderness or step-off. Genitourinary: Examination deferred Neurologic: No gross neurologic deficits. Psychiatric: Normal mood. Course - Re-evaluation Re-evalutation: 08/28/20 14:13 Patient is young but has numerous medical comorbidities. Need to rule out respiratory etiologies including pneumonia, pulmonary edema as well as cardiac pathology including ischemia, angina, etc. 08/28/20 22:35 Patient has a long history of positive troponin test. She has a 4-hour repeat troponin which is actually less than the first value. Her chest x-ray is negative. Her pulmonary embolism VQ scan study shows low probability for PE. Will discharge patient home - Vital Signs Vital signs: Temp Pulse Resp BP Pulse Ox 98.8 F 93 16 160/80 H 95 08/28/20 21:01 08/28/20 21:01 08/28/20 21:01 08/28/20 21:01 08/28/20 21:01 - Laboratory Result Diagrams: 08/28/20 14:48 08/28/20 14:48 Laboratory results interpreted by me: 08/28/20 08/28/20 14:48 14:48 Hgb 11.6 L Hct 34.0 L RDW 17.2 H Eos % (Auto) 8.1 H Sodium 136.8 L BUN 46 H Creatinine 8.33 H Est GFR ( Amer) 7 L Est GFR (MDRD) Non-Af 5 L Glucose 192 H Direct Bilirubin 0.5 H Lipase 429.7 H Discharge - Discharge Clinical Impression: ESRD (end stage renal disease) on dialysis Chest pain Qualifiers: Chest pain type: unspecified Qualified Code(s): R07.9 - Chest pain, unspecified Condition: Good Disposition: HOME, SELF-CARE Instructions: Chest Pain of Unclear Cause ([facility]) Additional Instructions: Patient to go to dialysis tomorrow as instructed Referrals: HILARY HERNANDEZ MD [Primary Care Provider] - Follow up tomorrow
--- NOTE | 2020-08-28 14:30 | RADIOLOGY REPORT (SQ) ---
EXAM DESCRIPTION: CHEST SINGLE VIEW IMAGES COMPLETED DATE/TIME: 08/28/2020 2:23 pm REASON FOR STUDY: karolina turcios COMPARISON: 08/04/2020 EXAM PARAMETERS: NUMBER OF VIEWS: One view. TECHNIQUE: Single frontal radiographic view of the chest acquired. RADIATION DOSE: NA LIMITATIONS: None. FINDINGS: LUNGS AND PLEURA: No opacities, masses or pneumothorax. No pleural effusion. MEDIASTINUM AND HILAR STRUCTURES: No masses. Contour normal. HEART AND VASCULAR STRUCTURES: Heart normal in size. Normal vasculature. BONES: No acute findings. HARDWARE: None in the chest. OTHER: No other significant finding. IMPRESSION: NO ACUTE RADIOGRAPHIC FINDING IN THE CHEST. TECHNICAL DOCUMENTATION: JOB ID: [id number] 2010 [employer]- All Rights Reserved Reading location - IP/workstation name: [email or web address]
[2020-08-28 15:09] LABS: ABSOLUTE BASOPHILS # (AUTO) 0.1 10^3/uL (0.0-0.2); ABSOLUTE EOSINOPHILS # (AUTO) 0.6 10^3/uL (0.0-0.6); ABSOLUTE MONOCYTES (AUTO) 0.7 10^3/uL (0.1-1.4); EOSINOPHILS % (AUTO) 8.1 % (0-6); HEMOGLOBIN 11.6 g/dL (12.0-15.5); LYMPHOCYTES % (AUTO) 27.7 % (13-45); MEAN CORPUSCULAR HEMOGLOBIN 29.3 pg (27.0-33.4); MEAN CORPUSCULAR VOLUME 86 fl (80-97); MONOCYTES % (AUTO) 9.3 % (3-13); PLATELET COUNT 268 10^3/uL (150-450); RED BLOOD COUNT 3.94 10^6/uL (3.72-5.28); RED CELL DISTRIBUTION WIDTH 17.2 % (11.5-14.0); SEGMENTED NEUTROPHILS % (AUTO) 53.9 % (42-78); TOTAL CELLS COUNTED % (AUTO) 100 %; WHITE BLOOD COUNT 7.4 10^3/uL (4.0-10.5)
--- NOTE | 2020-08-28 15:14 | EKG REPORT ---
SEVERITY:- ABNORMAL ECG - SINUS RHYTHM PROBABLE LEFT ATRIAL ABNORMALITY PROBABLE LEFT VENTRICULAR HYPERTROPHY BORDERLINE PROLONGED QT INTERVAL : Confirmed by: Beatriz Leyva MD 28-Aug-2020 15:14:09
[2020-08-28 15:27] LABS: BLOOD UREA NITROGEN 46 mg/dL (7-20); CALCIUM 9.3 mg/dL (8.4-10.2); GLUCOSE 192 mg/dL (75-110)
[2020-08-28 15:28] LABS: ALBUMIN 4.4 g/dL (3.5-5.0); ALKALINE PHOSPHATASE 123 U/L (38-126); ANION GAP 15 (5-19); ASPARTATE AMINO TRANSFERASE 24 U/L (14-36); BILIRUBIN,DIRECT 0.5 mg/dL (0.0-0.4); BILIRUBIN,TOTAL 0.5 mg/dL (0.2-1.3); CARBON DIOXIDE 24 mmol/L (22-30); CHLORIDE 98 mmol/L (98-107); POTASSIUM 4.8 mmol/L (3.6-5.0); TOTAL PROTEIN 8.2 g/dL (6.3-8.2)
[2020-08-28] MEDS ORDERED: MORPHINE SULFATE 10 MG/ML INJ IV ONE (16:26)
[2020-08-28] MEDS ORDERED: ONDANSETRON HCL INJ/PF 4 MG/2 ML SDV IV ONE (16:27)
--- NOTE | 2020-08-28 18:16 | RADIOLOGY REPORT (SQ) ---
EXAM DESCRIPTION: NM LUNG PERFUSION SCAN IMAGES COMPLETED DATE/TIME: 08/28/2020 6:08 pm REASON FOR STUDY: pleuritic chest pain COMPARISON: None. RADIONUCLIDE AND DOSE: 5.4 millicuries TC-99m MAA The route of agent administration: Intravenous TECHNIQUE: Eight views of the lungs acquired following injection of MAA. LIMITATIONS: None. FINDINGS: PERFUSION: Perfusion images with normal homogenous activity and no wedge-shaped or segment al defects. OTHER: No other significant finding. IMPRESSION: There is a low probability of pulmonary embolus. TECHNICAL DOCUMENTATION: JOB ID: [id number] 2010 [employer]- All Rights Reserved Reading location - IP/workstation name: [email or web address]
[2020-08-28 22:52] VITALS: BP 154/88
== END 2020-08-28 23:00 | disposition home or self-care (01) ==
LOC: ER 12:08
DX: R07.9 Chest pain, unspecified (principal); R06.02 Shortness of breath; E11.22 Type 2 diabetes mellitus with diabetic chronic kidney disease; I13.2 Hypertensive heart and chronic kidney disease with heart failure and with stage 5 chronic kidney disease, or end stage renal disease; I50.9 Heart failure, unspecified; N18.6 End stage renal disease; E66.01 Morbid (severe) obesity due to excess calories; Z99.2 Dependence on renal dialysis; Z90.49 Acquired absence of other specified parts of digestive tract
CPT/HCPCS: 93005; 99285; 96374; 96375; 36415; 83690; 85025; 80053; 84484; 71045; 78580; 93010; A9540; J2270; J2405; Q9969

== ENCOUNTER 2020-09-06 15:29 | Emergency (ER) | payer MEDICARE, MEDICAID ==
--- NOTE | 2020-09-06 15:52 | ER Document Report ---
ED Medical Screen (RME) - General Chief Complaint: Headache Stated Complaint: HEADACHE Time Seen by Provider: 09/06/20 15:36 Primary Care Provider: HILARY HERNANDEZ MD [Primary Care Provider] - Follow up as needed Notes: Patient is a 35-year-old female who presents emergency department with the chief complaint of a headache. Patient is an end-stage renal patient on dialysis. Patient states that she was in the middle of her dialysis and she developed a headache. States he gave her Tylenol, but this has not helped with her headache. States "my head feels like it is going to burst." Exam: Patient clutching her head. I have greeted and performed a rapid initial assessment of this patient. A comprehensive ED assessment and evaluation of the patient, analysis of test results and completion of medical decision making process will be conducted by an additional ED providers. TRAVEL OUTSIDE OF THE [place] IN LAST 30 DAYS: No - Related Data Allergies/Adverse Reactions: aspirin [Aspirin] Allergy (Verified 08/28/20 12:45) Anaphylaxis ciprofloxacin [From Cipro] Allergy (Verified 08/28/20 12:45) Anaphylaxis clindamycin [Clindamycin] Allergy (Verified 08/28/20 12:45) hydrocodone [From Vicodin] Allergy (Verified 08/28/20 12:45) ibuprofen [From Motrin] Allergy (Verified 08/28/20 12:45) Anaphylaxis lidocaine [From Lidoderm] Allergy (Verified 08/28/20 12:45) Generalized rash tramadol HCl [From Ultram] Allergy (Verified 08/28/20 12:45) vancomycin [Vancomycin] Allergy (Verified 08/28/20 12:45) Shortness of Breath nitroglycerin [Nitroglycerin] Adverse Reaction (Intermediate, Verified 08/28/20 12:45) Joint pain Past Medical History - Social History Chew tobacco use (# tins/day): No Frequency of alcohol use: Rare Family history: Reviewed & Not Pertinent - Past Medical History Cardiac Medical History: Reports: Hx Congestive Heart Failure, Hx Coronary Artery Disease, Hx Heart Attack, Hx Hypertension, Hx Heart Murmur Pulmonary Medical History: Reports: Hx Asthma, Hx Pneumonia Neurological Medical History: Reports: Hx Migraine, Hx Seizures - only r/t low calcium. Denies: Hx Parkinson's Disease Endocrine Medical History: Reports: Hx Diabetes Mellitus Type 1, Hx Diabetes Mellitus Type 2 Renal/ Medical History: Reports: Hx End Stage Renal Disease - On hemodialysis M-W-F, Hx Hemodialysis - MWF, Hx Ovarian Cysts. Denies: Hx Peritoneal Dialysis Malignancy Medical History: GI Medical History: Reports: Hx Gastritis Musculoskeltal Medical History: Skin Medical History: Reports Hx Psoriasis Psychiatric Medical History: Reports: Hx Depression Traumatic Medical History: Infectious Medical History: Past Surgical History: Reports: Hx Appendectomy, Hx Cholecystectomy, Hx Vascular Surgery - Lt AV Fistula and graft; Rt AV fistula - Immunizations Immunizations up to date: Yes Hx Diphtheria, Pertussis, Tetanus Vaccination: Yes Physical Exam - Vital signs Vitals: Temp Pulse Resp BP Pulse Ox 97.7 F 113 H 20 135/69 H 94 09/06/20 15:34 09/06/20 15:34 09/06/20 15:34 09/06/20 15:34 09/06/20 15:34 Course - Vital Signs Vital signs: Temp Pulse Resp BP Pulse Ox 97.7 F 113 H 20 135/69 H 94 09/06/20 15:34 09/06/20 15:34 09/06/20 15:34 09/06/20 15:34 09/06/20 15:34 Doctor's Discharge - Discharge Referrals: HILARY HERNANDEZ MD [Primary Care Provider] - Follow up as needed
[2020-09-06] MEDS ORDERED: DIPHENHYDRAMINE HCL 50 MG/ML VIAL IV ONE (16:28)
[2020-09-06] MEDS ORDERED: PROCHLORPERAZINE EDISYLATE INJ 10 MG/2 ML VIAL IV ONE (16:28)
[2020-09-06 16:37] LABS: ABSOLUTE BASOPHILS # (AUTO) 0.1 10^3/uL (0.0-0.2); ABSOLUTE EOSINOPHILS # (AUTO) 0.6 10^3/uL (0.0-0.6); ABSOLUTE LYMPHOCYTES (AUTO) 1.5 10^3/uL (0.5-4.7); ABSOLUTE MONOCYTES (AUTO) 0.8 10^3/uL (0.1-1.4); EOSINOPHILS % (AUTO) 7.2 % (0-6); HEMATOCRIT 33.8 % (36.0-47.0); HEMOGLOBIN 11.2 g/dL (12.0-15.5); LYMPHOCYTES % (AUTO) 16.4 % (13-45); MEAN CORPUSCULAR VOLUME 88 fl (80-97); MONOCYTES % (AUTO) 8.4 % (3-13); PLATELET COUNT 356 10^3/uL (150-450); RED BLOOD COUNT 3.85 10^6/uL (3.72-5.28); RED CELL DISTRIBUTION WIDTH 17.8 % (11.5-14.0); TOTAL CELLS COUNTED % (AUTO) 100 %; WHITE BLOOD COUNT 8.9 10^3/uL (4.0-10.5)
[2020-09-06 16:55] LABS: ALBUMIN 4.7 g/dL (3.5-5.0); ALKALINE PHOSPHATASE 128 U/L (38-126); ANION GAP 15 (5-19); ASPARTATE AMINO TRANSFERASE 21 U/L (14-36); BILIRUBIN,DIRECT 0.6 mg/dL (0.0-0.4); BILIRUBIN,TOTAL 0.6 mg/dL (0.2-1.3); BLOOD UREA NITROGEN 23 mg/dL (7-20); CALCIUM 9.5 mg/dL (8.4-10.2); CARBON DIOXIDE 30 mmol/L (22-30); CHLORIDE 93 mmol/L (98-107); GLUCOSE 333 mg/dL (75-110); POTASSIUM 5.2 mmol/L (3.6-5.0); TOTAL PROTEIN 8.8 g/dL (6.3-8.2)
--- NOTE | 2020-09-06 17:44 | ER Document Report ---
Entered by TRENT VILLAREAL SCRIBE 09/06/20 [id number] Acting as scribe for:LEVI PATRICK MD ED General - General Chief Complaint: Headache Stated Complaint: HEADACHE Time Seen by Provider: 09/06/20 15:36 Primary Care Provider: HILARY HERNANDEZ MD [Primary Care Provider] - Follow up as needed Information source: Patient Notes: This 35 year old female patient presents to the emergency department today with complaints of a headache which began three hours into her dialysis treatment today. Patient reports that she has migraine headaches but those usually start gradually but this one was intense from the start. Patient states the headache is a global pressure that is "really intense" but unable to clarify further. TRAVEL OUTSIDE OF THE [place] IN LAST 30 DAYS: No - Related Data Allergies/Adverse Reactions: aspirin [Aspirin] Allergy (Verified 08/28/20 12:45) Anaphylaxis ciprofloxacin [From Cipro] Allergy (Verified 08/28/20 12:45) Anaphylaxis clindamycin [Clindamycin] Allergy (Verified 08/28/20 12:45) hydrocodone [From Vicodin] Allergy (Verified 08/28/20 12:45) ibuprofen [From Motrin] Allergy (Verified 08/28/20 12:45) Anaphylaxis lidocaine [From Lidoderm] Allergy (Verified 08/28/20 12:45) Generalized rash tramadol HCl [From Ultram] Allergy (Verified 08/28/20 12:45) vancomycin [Vancomycin] Allergy (Verified 08/28/20 12:45) Shortness of Breath nitroglycerin [Nitroglycerin] Adverse Reaction (Intermediate, Verified 08/28/20 12:45) Joint pain Past Medical History - General Information source: Patient - Social History Smoking Status: Current Every Day Smoker Cigarette use (# per day): Yes Chew tobacco use (# tins/day): No Frequency of alcohol use: Rare Drug Abuse: None Lives with: Family Family History: Reviewed & Not Pertinent, Hypertension Patient has homicidal ideation: No - Past Medical History Cardiac Medical History: Reports: Hx Congestive Heart Failure, Hx Coronary Artery Disease, Hx Heart Attack, Hx Hypertension, Hx Heart Murmur Pulmonary Medical History: Reports: Hx Asthma, Hx Pneumonia Neurological Medical History: Reports: Hx Migraine, Hx Seizures - only r/t low calcium Endocrine Medical History: Reports: Hx Diabetes Mellitus Type 1, Hx Diabetes Mellitus Type 2 Renal/ Medical History: Reports: Hx End Stage Renal Disease - On hemodialysis M-W-F, Hx Hemodialysis - MWF, Hx Ovarian Cysts Malignancy Medical History: GI Medical History: Reports: Hx Gastritis Musculoskeletal Medical History: Skin Medical History: Reports Hx Psoriasis Psychiatric Medical History: Reports: Hx Depression Traumatic Medical History: Infectious Medical History: Past Surgical History: Reports: Hx Appendectomy, Hx Cholecystectomy, Hx Vascular Surgery - Lt AV Fistula and graft; Rt AV fistula - Immunizations Immunizations up to date: Yes Hx Diphtheria, Pertussis, Tetanus Vaccination: Yes Hx Pneumococcal Vaccination: 08/22/11 Review of Systems - Review of Systems Constitutional: No symptoms reported EENT: No symptoms reported Cardiovascular: No symptoms reported Respiratory: No symptoms reported Gastrointestinal: No symptoms reported Genitourinary: No symptoms reported Female Genitourinary: No symptoms reported Musculoskeletal: No symptoms reported Skin: No symptoms reported Hematologic/Lymphatic: No symptoms reported Neurological/Psychological: See HPI, Headaches -: Yes All other systems reviewed and negative Physical Exam - Vital signs Vitals: Temp Pulse Resp BP Pulse Ox 97.7 F 113 H 20 135/69 H 94 09/06/20 15:34 09/06/20 15:34 09/06/20 15:34 09/06/20 15:34 09/06/20 15:34 - Notes Notes: Physical Exam: General: Alert, appears uncomfortable. HEENT: Normocephalic. Atraumatic. PERRL. Extraocular movements intact. Oropharynx clear. Eye globes are not tender to palpation. No scalp or forehead muscle tenderness to palpation. Neck: Supple. Minimal cervical musculature tenderness to palpation. Respiratory: No respiratory distress. Clear and equal breath sounds bilaterally. Cardiovascular: Regular rate and rhythm. Abdominal: Normal Inspection. Non-tender. No distension. Normal Bowel Sounds. Back: No gross abnormalities. Extremities: Moves all four extremities. Upper extremities: Normal inspection. Normal ROM. Lower extremities: Normal inspection. No edema. Normal ROM. Neurological: Normal cognition. AAOx4. Normal speech. Psychological: Normal affect. Normal Mood. Skin: Warm. Dry. Normal color. Course - Re-evaluation Re-evalutation: 09/06/20 19:27 The patient was sleeping. I woke her up she stated that her headache was much improved. - Vital Signs Vital signs: Temp Pulse Resp BP Pulse Ox 98.8 F 100 20 138/60 H 97 09/06/20 18:18 09/06/20 18:18 09/06/20 18:18 09/06/20 18:18 09/06/20 18:18 - Laboratory Result Diagrams: 09/06/20 16:25 09/06/20 16:25 Laboratory results interpreted by me: 09/06/20 09/06/20 16:25 16:25 Hgb 11.2 L Hct 33.8 L RDW 17.8 H Eos % (Auto) 7.2 H Potassium 5.2 H Chloride 93 L BUN 23 H Creatinine 4.73 H Est GFR ( Amer) 13 L Est GFR (MDRD) Non-Af 11 L Glucose 333 H Direct Bilirubin 0.6 H Alkaline Phosphatase 128 H Total Protein 8.8 H - Diagnostic Test Radiology reviewed: Image reviewed, Reports reviewed - CT scan of the head does not show acute changes. Discharge - Discharge Clinical Impression: Headache Qualifiers: Headache type: unspecified Headache chronicity pattern: acute headache Intractability: not intractable Qualified Code(s): R51.9 - Headache, unspecified Condition: Stable Disposition: HOME, SELF-CARE Additional Instructions: Headache The physician does not feel that the headache you are experiencing has a serious underlying cause. Most headaches are due to emotional stress, with resultant muscle tension (tension headache). Occasionally, headaches are secondary to changes in the blood vessels of the scalp (vascular headache and migraine headache). Sometimes, a headache is the first symptom of another devel oping illness, such as a viral infection. You have no evidence of stroke, bleeding, meningitis, or other serious cause of your headache. The treatment of headaches varies with the severity and cause of the pain. Not all headaches need pain shots. In fact, there is evidence that using narcotics for headaches may make them worse in the long run. The physician will determine the therapy that's in your best interest. If you develop a fever, if the headache is different from any you've previously experienced, or if the headache progressively worsens, then call your physician at once or go to the emergency room. Continue your regular medications. Follow-up with your primary care provider if you continue to have headaches. RETURN TO THE EMERGENCY ROOM IF ANY NEW OR WORSENING SYMPTOMS. Referrals: HILARY HERNANDEZ MD [Primary Care Provider] - Follow up as needed I personally performed the services described in the documentation, reviewed and edited the documentation which was dictated to the scribe in my presence, and it accurately records my words and actions.
--- NOTE | 2020-09-06 18:42 | RADIOLOGY REPORT (SQ) ---
EXAM DESCRIPTION: CT HEAD WITHOUT IMAGES COMPLETED DATE/TIME: 09/06/2020 6:30 pm REASON FOR STUDY: headache; on plavix COMPARISON: 08/09/2020 TECHNIQUE: Axial images acquired through the brain without intravenous contrast. Images reviewed wi th bone, brain and subdural windows. Additional sagittal and coronal reconstructions were generated. Images stored on PACS. All CT scanners at this facility use dose modulation, iterative reconstruction, and/or weight based d osing when appropriate to reduce radiation dose to as low as reasonably achievable (ALARA). [facility]: Dose Right [facility]: CareDose [facility]: Dose Right [facility]: Teradose 4D [facility]: [employer] RADIATION DOSE: CT Rad equipment meets quality standard of care and radiation dose reduction techniq ues were employed. CTDIvol: 53.2 mGy. DLP: 991 mGy-cm. mGy. LIMITATIONS: None. FINDINGS: VENTRICLES: Normal size and contour. CEREBRUM: No masses. No hemorrhage. No midline shift. No evidence for acute infarction. Normal gra y/white matter differentiation. No areas of low density in the white matter. CEREBELLUM: No masses. No hemorrhage. No alteration of density. No evidence for acute infarction. EXTRAAXIAL SPACES: No fluid collections. No masses. ORBITS AND GLOBE: No intra- or extraconal masses. Normal contour of globe without masses. CALVARIUM: No fracture. PARANASAL SINUSES: No fluid or mucosal thickening. SOFT TISSUES: No mass or hematoma. OTHER: No other significant finding. IMPRESSION: NORMAL BRAIN CT WITHOUT CONTRAST. EVIDENCE OF ACUTE STROKE: NO. COMMENT: Quality ID # [id number]: Final reports with documentation of one or more dose reduction techniques (e.g., Automated exposure control, adjustment of the mA and/or kV according to patient size, use of iterative reconstruction technique) TECHNICAL DOCUMENTATION: JOB ID: [id number] 2010 [employer]- All Rights Reserved Reading location - IP/workstation name: [email or web address]
[2020-09-06 19:28] VITALS: BP 132/60
== END 2020-09-06 19:38 | disposition home or self-care (01) ==
LOC: ER 15:29
DX: R51.9 Headache, unspecified (principal); I12.0 Hypertensive chronic kidney disease with stage 5 chronic kidney disease or end stage renal disease; E11.22 Type 2 diabetes mellitus with diabetic chronic kidney disease; N18.6 End stage renal disease; Z99.2 Dependence on renal dialysis; F17.210 Nicotine dependence, cigarettes, uncomplicated; I25.10 Atherosclerotic heart disease of native coronary artery without angina pectoris; J45.909 Unspecified asthma, uncomplicated; Z88.1 Allergy status to other antibiotic agents; Z87.892 Personal history of anaphylaxis; Z88.8 Allergy status to other drugs, medicaments and biological substances; Z88.6 Allergy status to analgesic agent; Z88.5 Allergy status to narcotic agent
CPT/HCPCS: 99285; 96374; 96375; 36415; 85025; 80053; 70450; J1200; J0780

== ENCOUNTER 2020-09-11 14:06 | Emergency (ER) | payer MEDICARE, MEDICAID ==
[2020-09-11] MEDS ORDERED: ONDANSETRON HCL INJ/PF 4 MG/2 ML SDV IV ONE (15:58)
--- NOTE | 2020-09-11 15:59 | ER Document Report ---
ED Medical Screen (RME) - General Chief Complaint: Nausea/Vomiting/Diarrhea Stated Complaint: NAUSEA Time Seen by Provider: 09/11/20 14:30 Primary Care Provider: HILARY HERNANDEZ MD [Primary Care Provider] - Follow up as needed Information source: Patient Notes: Patient presents complaining of nausea vomiting diarrhea for the past 3 days. Patient states that she vomited once today and has had numerous episodes of diarrhea. Patient dialyzes on Wednesday and Wednesday although only dialyzed for 45 minutes today and only received half of her session on Wednesday due to her symptoms. Patient does have a history of hypertension, end-stage renal disease, asthma, CHF. Patient complains of generalized abdominal tenderness. I have greeted and performed a rapid initial assessment of this patient. A comprehensive ED assessment and evaluation of the patient, analysis of test results and completion of the medical decision making process will be conducted by additional ED providers. TRAVEL OUTSIDE OF THE [place] IN LAST 30 DAYS: No - Related Data Allergies/Adverse Reactions: aspirin [Aspirin] Allergy (Verified 08/28/20 12:45) Anaphylaxis ciprofloxacin [From Cipro] Allergy (Verified 08/28/20 12:45) Anaphylaxis clindamycin [Clindamycin] Allergy (Verified 08/28/20 12:45) hydrocodone [From Vicodin] Allergy (Verified 08/28/20 12:45) ibuprofen [From Motrin] Allergy (Verified 08/28/20 12:45) Anaphylaxis lidocaine [From Lidoderm] Allergy (Verified 08/28/20 12:45) Generalized rash tramadol HCl [From Ultram] Allergy (Verified 08/28/20 12:45) vancomycin [Vancomycin] Allergy (Verified 08/28/20 12:45) Shortness of Breath nitroglycerin [Nitroglycerin] Adverse Reaction (Intermediate, Verified 08/28/20 12:45) Joint pain Past Medical History - Social History Family history: Reviewed & Not Pertinent - Past Medical History Cardiac Medical History: Reports: Hx Congestive Heart Failure, Hx Coronary Artery Disease, Hx Heart Attack, Hx Hypertension, Hx Heart Murmur Pulmonary Medical History: Reports: Hx Asthma, Hx Pneumonia Neurological Medical History: Reports: Hx Migraine, Hx Seizures - only r/t low calcium. Denies: Hx Parkinson's Disease Endocrine Medical History: Reports: Hx Diabetes Mellitus Type 1, Hx Diabetes Mellitus Type 2 Renal/ Medical History: Reports: Hx End Stage Renal Disease - On hemodialysis M-W-F, Hx Hemodialysis - MWF, Hx Ovarian Cysts. Denies: Hx Peritoneal Dialysis Malignancy Medical History: GI Medical History: Reports: Hx Gastritis Musculoskeltal Medical History: Skin Medical History: Reports Hx Psoriasis Psychiatric Medical History: Reports: Hx Depression Traumatic Medical History: Infectious Medical History: Past Surgical History: Reports: Hx Appendectomy, Hx Cholecystectomy, Hx Vascular Surgery - Lt AV Fistula and graft; Rt AV fistula - Immunizations Immunizations up to date: Yes Hx Diphtheria, Pertussis, Tetanus Vaccination: Yes Physical Exam - Vital signs Vitals: Temp Pulse Resp BP Pulse Ox 98.7 F 118 H 20 179/85 H 100 09/11/20 15:46 09/11/20 15:46 09/11/20 15:46 09/11/20 15:46 09/11/20 15:46 - Cardiovascular Rhythm: Tachycardia - Abdominal Inspection: Obese Tenderness: Tender - Generalized abdominal tenderness Course - Vital Signs Vital signs: Temp Pulse Resp BP Pulse Ox 98.7 F 118 H 20 179/85 H 100 09/11/20 15:46 09/11/20 15:46 09/11/20 15:46 09/11/20 15:46 09/11/20 15:46 Doctor's Discharge - Discharge Referrals: HILARY HERNANDEZ MD [Primary Care Provider] - Follow up as needed
[2020-09-11 16:57] LABS: ABSOLUTE EOSINOPHILS # (AUTO) 0.6 10^3/uL (0.0-0.6); ABSOLUTE LYMPHOCYTES (AUTO) 1.3 10^3/uL (0.5-4.7); ABSOLUTE MONOCYTES (AUTO) 0.7 10^3/uL (0.1-1.4); ABSOLUTE NEUT (AUTO) 8.4 10^3/uL (1.7-8.2); BASOPHILS % (AUTO) 0.4 % (0-2); EOSINOPHILS % (AUTO) 5.8 % (0-6); HEMATOCRIT 33.8 % (36.0-47.0); HEMOGLOBIN 11.2 g/dL (12.0-15.5); LYMPHOCYTES % (AUTO) 11.5 % (13-45); MEAN CORPUSCULAR HEMOGLOBIN 28.9 pg (27.0-33.4); MEAN CORPUSCULAR HGB CONC 33.1 g/dL (32.0-36.0); MEAN CORPUSCULAR VOLUME 87 fl (80-97); MONOCYTES % (AUTO) 6.7 % (3-13); PLATELET COUNT 412 10^3/uL (150-450); RED BLOOD COUNT 3.87 10^6/uL (3.72-5.28); RED CELL DISTRIBUTION WIDTH 17.8 % (11.5-14.0); SEGMENTED NEUTROPHILS % (AUTO) 75.6 % (42-78); TOTAL CELLS COUNTED % (AUTO) 100 %; WHITE BLOOD COUNT 11.1 10^3/uL (4.0-10.5)
--- NOTE | 2020-09-11 16:57 | ER Document Report ---
ED General - General Chief Complaint: Nausea/Vomiting/Diarrhea Stated Complaint: NAUSEA Time Seen by Provider: 09/11/20 14:30 Primary Care Provider: HILARY HERNANDEZ MD [Primary Care Provider] - Follow up as needed Mode of Arrival: Ambulatory Information source: Patient Notes: 35-year-old morbidly obese -[place] female with numerous medical comorbidities comes in via ambulance for nausea vomiting and diarrhea as well as abdominal pain for the past 2 days. Patient is a hemodialysis patient. Only got a partial dialysis session on Wednesday and only got about 45 minutes of her session and today before she summoned the ambulance to bring her over here. No fevers or chills. Patient complains of watery diarrhea. TRAVEL OUTSIDE OF THE [place] IN LAST 30 DAYS: No - Related Data Allergies/Adverse Reactions: aspirin [Aspirin] Allergy (Verified 08/28/20 12:45) Anaphylaxis ciprofloxacin [From Cipro] Allergy (Verified 08/28/20 12:45) Anaphylaxis clindamycin [Clindamycin] Allergy (Verified 08/28/20 12:45) hydrocodone [From Vicodin] Allergy (Verified 08/28/20 12:45) ibuprofen [From Motrin] Allergy (Verified 08/28/20 12:45) Anaphylaxis lidocaine [From Lidoderm] Allergy (Verified 08/28/20 12:45) Generalized rash tramadol HCl [From Ultram] Allergy (Verified 08/28/20 12:45) vancomycin [Vancomycin] Allergy (Verified 08/28/20 12:45) Shortness of Breath nitroglycerin [Nitroglycerin] Adverse Reaction (Intermediate, Verified 08/28/20 12:45) Joint pain Past Medical History - General Information source: Patient - Social History Smoking Status: Never Smoker Family History: Reviewed & Not Pertinent, Hypertension - Past Medical History Cardiac Medical History: Reports: Hx Congestive Heart Failure, Hx Coronary Artery Disease, Hx Heart Attack, Hx Hypertension, Hx Heart Murmur Pulmonary Medical History: Reports: Hx Asthma, Hx Pneumonia Neurological Medical History: Reports: Hx Migraine, Hx Seizures - only r/t low calcium. Denies: Hx Parkinson's Disease Endocrine Medical History: Reports: Hx Diabetes Mellitus Type 1, Hx Diabetes Mellitus Type 2 Renal/ Medical History: Reports: Hx End Stage Renal Disease - On hemodialysis M-W-F, Hx Hemodialysis - MWF, Hx Ovarian Cysts. Denies: Hx Peritoneal Dialysis Malignancy Medical History: GI Medical History: Reports: Hx Gastritis Musculoskeletal Medical History: Skin Medical History: Reports Hx Psoriasis Psychiatric Medical History: Reports: Hx Depression Traumatic Medical History: Infectious Medical History: Past Surgical History: Reports: Hx Appendectomy, Hx Cholecystectomy, Hx Vascular Surgery - Lt AV Fistula and graft; Rt AV fistula - Immunizations Immunizations up to date: Yes Hx Diphtheria, Pertussis, Tetanus Vaccination: Yes Hx Pneumococcal Vaccination: 08/22/11 Review of Systems - Review of Systems Notes: Constitutional: No fevers. No chills. EENT: No eye redness. No eye pain. No ear pain. No sore throat. Cardiovascular: No chest pain. No palpitations. Respiratory: No cough. No shortness of breath. No respiratory distress. Gastrointestinal: Positive for abdominal pain, nausea, vomiting, and watery diarrhea Genitourinary: Atraumatic. No lesions. No pain. No discharge. Musculoskeletal: Atraumatic. No swelling. No deformities. Skin: No rash or lesions. Lymphatic: No swollen lymph nodes. Neurologic: No headache. No syncope. Psychiatric: No suicidal or homicidal ideation. Physical Exam - Vital signs Vitals: Temp Pulse Resp BP Pulse Ox 98.7 F 118 H 20 179/85 H 100 09/11/20 15:46 09/11/20 15:46 09/11/20 15:46 09/11/20 15:46 09/11/20 15:46 - Notes Notes: General: Well-developed, well-nourished. In no acute distress. Non-toxic a ppearing. Cardiac: Well-perfused. Regular rate and rhythm. No murmurs, rubs, or gallops. Pulmonary: No respiratory distress. No cyanosis. Bilateral lung fiels are clear to auscultation. Abdominal: Abdomen is obese. Soft. Nonrigid. Bowel sounds present all 4 quadrants. Diffuse mild tenderness to palpation without guarding or rebound. HEENT: Head is atraumatic. Conjunctivae not reddened. No tearing. PERRL. EOMI. Orbits atraumatic. No periorbital swelling or erythema. Oropharynx is without erythema, swelling, or exudates. Neck: Supple. No adenopathy. No meningismus. Dermatologic: Subcutaneous warm and erythematous slightly nodular skin manifestations on bilateral lower legs Chest: Atraumatic. No chest wall tenderness to palpation. Musculoskeletal: Moves all extremities well. No range of motion deficits. no muscular or joint tenderness. No paraspinal muscle tenderness. no midline spinal tenderness or step-off. Genitourinary: Examination deferred Neurologic: No gross neurologic deficits. Psychiatric: Normal mood. Course - Re-evaluation Re-evalutation: 09/11/20 16:59 Patient has an extensive medical history. She is mildly tachycardic on exam. Suspect this may be from pain/illness. She may need some minimal IV fluids given her ESRD. We will get a CAT scan without contrast to see if there is anyt phillip acute going on causing her present symptoms. 09/11/20 18:23 Patient has a critical potassium of 6.1. Kayexalate [address] Kwon of nephrology. He has arranged for her to be dialyzed tomorrow at [facility]. He requests that we go ahead and correct her potassium here and then discharge her home. She can call [facility] in the morning to set up the appropriate time for dialysis. 09/11/20 20:32 Patient is now having chest pain. This time to recollect her metabolic profile. We will add a troponin. We will repeat EKG. 09/11/20 22:23 Patient's EKG does not show any ST elevations or depressions. Troponin has historically been high in the past. Patient has been resting comfortably in the bed the whole time she has been here. She has not been vomiting. She has not had diarrhea. We have been working diligently to get her potassium down to a safe level so she can be discharged home. At this time she is mildly tachycardic which I think may be some volume loss due to her reported history of vomiting and diarrhea over the past few days. We will give her a 500 normal saline bolus so as not to overload her. She seems to be comfortable at this time. We will wait for the IV fluids to infuse. 09/12/20 00:15 After numerous hours here and numerous tests patient is finally got a reasonably good potassium. She is still tachycardic at a rate of 117. I requested the Dr. Ron come and see her. He feels that she is safe to go home. She must dialyze in the morning. She is instructed to call [facility] to set up her appointment tomorrow to dialyze. - Vital Signs Vital signs: Temp Pulse Resp BP Pulse Ox 99.2 F 117 H 16 155/83 H 100 09/11/20 23:31 09/11/20 23:31 09/11/20 23:31 09/11/20 23:31 09/11/20 23:31 - Laboratory Result Diagrams: 09/11/20 16:28 09/11/20 22:45 Laboratory results interpreted by me: 09/11/20 09/11/20 09/11/20 16:28 16:28 20:26 WBC 11.1 H Hgb 11.2 L Hct 33.8 L RDW 17.8 H Lymph % (Auto) 11.5 L Absolute Neuts (auto) 8.4 H Potassium 6.1 H* Chloride 94 L BUN 62 H Creatinine 11.35 H Est GFR ( Amer) 5 L Est GFR (MDRD) Non-Af 4 L Glucose POC Glucose 267 H Magnesium 2.7 H Direct Bilirubin 0.6 H Alkaline Phosphatase 132 H Total Protein 9.3 H 09/11/20 09/11/20 20:45 22:45 WBC Hgb Hct RDW Lymph % (Auto) Absolute Neuts (auto) Potassium 5.4 H 5.7 H Chloride 95 L BUN 63 H Creatinine 11.18 H Est GFR ( Amer) 5 L Est GFR (MDRD) Non-Af 4 L Glucose 139 H POC Glucose Magnesium Direct Bilirubin Alkaline Phosphatase Total Protein - EKG Interpretation by Me Rate: Tachycardia Additional EKG results interpreted by me: 09/11/20 21:19 Junctional tachycardia rate of 118. No ST elevations or depressions Discharge - Discharge Clinical Impression: End stage renal disease, Hyperkalemia, Nausea vomiting and diarrhea, Tachycardia, Panniculitis, Elevated blood pressure reading Condition: Good Disposition: HOME, SELF-CARE Additional Instructions: You can take Zofran every 4 hours as needed for nausea and vomiting. You must dialyze tomorrow. You are instructed to call [facility] in the morning to set up your appointment time. 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 Start the antibiotics for your leg infection. See your primary doctor in 2 days for recheck Prescriptions: Cephalexin Monohydrate [Keflex 500 mg Capsule] 500 mg PO Q6H 10 Days #40 capsule Forms: Elevated Blood Pressure Referrals: OHILARY CABALLERO MD [Primary Care Provider] - Follow up tomorrow
--- NOTE | 2020-09-11 16:59 | RADIOLOGY REPORT (SQ) ---
EXAM DESCRIPTION: CHEST SINGLE VIEW IMAGES COMPLETED DATE/TIME: 09/11/2020 4:47 pm REASON FOR STUDY: n/v/d, short dialysis session x 2 COMPARISON: AP view of the chest from 08/28/2020. EXAM PARAMETERS: NUMBER OF VIEWS: One view. TECHNIQUE: An AP view of the chest was obtained. RADIATION DOSE: NA LIMITATIONS: None. FINDINGS: LUNGS AND PLEURA: No consolidation, pleural effusion or pneumothorax. MEDIASTINUM AND HILAR STRUCTURES: No mediastinal or hilar contour abnormality. HEART AND VASCULAR STRUCTURES: The cardiac silhouette is enlarged. BONES: No acute findings. HARDWARE: Endovascular stents in the right axillary and subclavian veins. OTHER: No other finding. IMPRESSION: Cardiomegaly and low inspiratory lung volumes without a superimposed acute cardiopulmona ry process. TECHNICAL DOCUMENTATION: JOB ID: [id number] 2010 [email or web address]- All Rights Reserved Reading location - IP/workstation name: [email or web address]
[2020-09-11] MEDS ORDERED: HYDROMORPHONE HCL INJ/PF 2 MG/ML AMPULE IV ONE (17:02)
[2020-09-11 17:18] LABS: ALBUMIN 4.9 g/dL (3.5-5.0); ALKALINE PHOSPHATASE 132 U/L (38-126); ANION GAP 19 (5-19); ASPARTATE AMINO TRANSFERASE 20 U/L (14-36); BILIRUBIN,DIRECT 0.6 mg/dL (0.0-0.4); BILIRUBIN,TOTAL 0.6 mg/dL (0.2-1.3); BLOOD UREA NITROGEN 62 mg/dL (7-20); CARBON DIOXIDE 25 mmol/L (22-30); CHLORIDE 94 mmol/L (98-107); GLUCOSE 92 mg/dL (75-110); TOTAL PROTEIN 9.3 g/dL (6.3-8.2)
[2020-09-11 17:23] LABS: POTASSIUM 6.1 mmol/L (3.6-5.0)
[2020-09-11] MEDS ORDERED: SODIUM POLYSTYRENE SULFONATE 15 GM/60 ML PO ONE (17:31)
--- NOTE | 2020-09-11 17:57 | RADIOLOGY REPORT (SQ) ---
EXAM DESCRIPTION: CT ABD/PELVIS NO ORAL OR IV IMAGES COMPLETED DATE/TIME: 09/11/2020 5:21 pm REASON FOR STUDY: diffuse abd pain with v/d COMPARISON: CT abdomen and pelvis 10/06/2018 TECHNIQUE: CT scan of the abdomen and pelvis performed without intravenous or oral contrast. Images reviewed with lung, soft tissue, and bone windows. Reconstructed coronal and sagittal MPR images revi ewed. All images stored on PACS. All CT scanners at this facility use dose modulation, iterative reconstruction, and/or weight based d osing when appropriate to reduce radiation dose to as low as reasonably achievable (ALARA). [facility]: Dose Right [facility]: CareDose [facility]: Dose Right [facility]: Teradose 4D [facility]: [employer] RADIATION DOSE: CT Rad equipment meets quality standard of care and radiation dose reduction techniq ues were employed. CTDIvol: 19.0 mGy. DLP: 1055 mGy-cm.mGy. LIMITATIONS: None. FINDINGS: LOWER CHEST: Mild diffuse bibasilar airspace disease. NON-CONTRASTED LIVER, SPLEEN, ADRENALS: Evaluation limited by lack of IV contrast. No identified sign ificant masses. PANCREAS: No masses. No peripancreatic inflammatory changes. GALLBLADDER: Surgically absent RIGHT KIDNEY AND URETER: Small, with diffuse cortical thinning and vascular calcifications. Small cysts. No hydronephrosis or hydroureter. LEFT KIDNEY AND URETER: Small, with diffuse cortical thinning and vascular calcifications. Small c ysts. No hydronephrosis or hydroureter. AORTA AND RETROPERITONEUM: No aneurysm. No retroperitoneal masses or adenopathy. BOWEL AND PERITONEAL CAVITY: No obvious masses or inflammatory changes. No free fluid. APPENDIX: Surgically absent PELVIS, BLADDER, AND ABDOMINAL WALL:No abnormal masses. No free fluid. Bladder normal. BONES: No significant findings. OTHER: No other significant finding. IMPRESSION: NO SIGNIFICANT OR ACUTE PROCESS IN THE ABDOMEN OR PELVIS. COMMENT: Quality ID # [id number]: Final reports with documentation of one or more dose reduction techniques (e.g., Automated exposure control, adjustment of the mA and/or kV according to patient size, use of iterative reconstruction technique) TECHNICAL DOCUMENTATION: JOB ID: [id number] 2010 [employer]- All Rights Reserved Reading location - IP/workstation name: [email or web address]
[2020-09-11] MEDS ORDERED: INSULIN REG, HUMAN 100 UNIT/ML 3 ML VIAL (PYX) IV ONE (18:17)
[2020-09-11] MEDS ORDERED: CALCIUM GLUCONATE 1000 MG/10 ML INJ IV ONE (18:17)
[2020-09-11] MEDS ORDERED: DEXTROSE 50%-WATER 25 GM/50 ML DISP.SYRIN IV ONE (18:17)
[2020-09-11] MEDS ORDERED: NORMAL SALINE 500 ML IV ONE (21:02)
[2020-09-11 21:12] LABS: ANION GAP 19 (5-19); BLOOD UREA NITROGEN 63 mg/dL (7-20); CALCIUM 8.5 mg/dL (8.4-10.2); CARBON DIOXIDE 24 mmol/L (22-30); CHLORIDE 95 mmol/L (98-107); GLUCOSE 139 mg/dL (75-110); POTASSIUM 5.4 mmol/L (3.6-5.0)
[2020-09-11 23:32] VITALS: BP 155/83
[2020-09-12] MEDS ORDERED: ONDANSETRON ODT 4 MG TAB (6 TAB/ER DISP) PO PRN (00:17)
--- NOTE | 2020-09-12 17:56 | EKG REPORT ---
SEVERITY:- ABNORMAL ECG - SINUS TACHYCARDIA PROBABLE LEFT VENTRICULAR HYPERTROPHY BORDERLINE PROLONGED QT INTERVAL : Confirmed by: Isacc Chen MD 12-Sep-2020 17:55:32
--- NOTE | 2020-09-12 17:56 | EKG REPORT ---
SEVERITY:- ABNORMAL ECG - SINUS TACHYCARDIA PROBABLE LVH WITH SECONDARY REPOL ABNRM : Confirmed by: Isacc Chen MD 12-Sep-2020 17:55:16
== END 2020-09-12 00:24 | disposition home or self-care (01) ==
LOC: ER 14:06
DX: R19.7 Diarrhea, unspecified (principal); R11.2 Nausea with vomiting, unspecified; R10.84 Generalized abdominal pain; R10.817 Generalized abdominal tenderness; E87.5 Hyperkalemia; R07.9 Chest pain, unspecified; R00.0 Tachycardia, unspecified; M79.3 Panniculitis, unspecified; I13.11 Hypertensive heart and chronic kidney disease without heart failure, with stage 5 chronic kidney disease, or end stage renal disease; E11.22 Type 2 diabetes mellitus with diabetic chronic kidney disease; N18.6 End stage renal disease; Z99.2 Dependence on renal dialysis; I25.10 Atherosclerotic heart disease of native coronary artery without angina pectoris; J45.909 Unspecified asthma, uncomplicated; Z90.49 Acquired absence of other specified parts of digestive tract; Z87.892 Personal history of anaphylaxis; Z88.8 Allergy status to other drugs, medicaments and biological substances; Z88.1 Allergy status to other antibiotic agents; Z88.6 Allergy status to analgesic agent; Z88.5 Allergy status to narcotic agent; Z88.4 Allergy status to anesthetic agent
CPT/HCPCS: 93005; 99285; 96361; 96374; 96375; 36415; 82962; 83690; 83735; 84132; 85025; 80053; 84484; 71045; 74176; 93010; J0610; J3490; J1170; A9270 ×3; J2405; J7040; J1815

== ENCOUNTER 2020-10-17 20:49 | Emergency (ER) | payer MEDICARE, MEDICAID ==
[2020-10-17] MEDS ORDERED: HYDROMORPHONE HCL 2 MG TABLET PO ONE (22:08)
[2020-10-17] MEDS ORDERED: PREDNISONE 20 MG TABLET PO ONE (22:14)
[2020-10-17] MEDS ORDERED: HYDROMORPHONE HCL INJ/PF 2 MG/ML AMPULE IV ONE ×2 (22:19→23:55)
[2020-10-17 22:51] LABS: ABSOLUTE BASOPHILS # (AUTO) 0.1 10^3/uL (0.0-0.2); ABSOLUTE EOSINOPHILS # (AUTO) 1.1 10^3/uL (0.0-0.6); ABSOLUTE LYMPHOCYTES (AUTO) 2.4 10^3/uL (0.5-4.7); ABSOLUTE MONOCYTES (AUTO) 0.8 10^3/uL (0.1-1.4); ABSOLUTE NEUT (AUTO) 6.5 10^3/uL (1.7-8.2); BASOPHILS % (AUTO) 0.5 % (0-2); HEMATOCRIT 33.9 % (36.0-47.0); LYMPHOCYTES % (AUTO) 21.9 % (13-45); MEAN CORPUSCULAR HEMOGLOBIN 28.9 pg (27.0-33.4); MEAN CORPUSCULAR HGB CONC 32.5 g/dL (32.0-36.0); MEAN CORPUSCULAR VOLUME 89 fl (80-97); MONOCYTES % (AUTO) 7.6 % (3-13); PLATELET COUNT 358 10^3/uL (150-450); RED BLOOD COUNT 3.81 10^6/uL (3.72-5.28); RED CELL DISTRIBUTION WIDTH 17.4 % (11.5-14.0); TOTAL CELLS COUNTED % (AUTO) 100 %; WHITE BLOOD COUNT 10.8 10^3/uL (4.0-10.5)
--- NOTE | 2020-10-17 23:02 | ER Document Report ---
ED General - General TRAVEL OUTSIDE OF THE [place] IN LAST 30 DAYS: No - Related Data Home Medications: Clonadine. Carvedilol. Lasix <BRAULIO BOWDEN - Last Filed: 10/18/20 02:09> <SHARON RON JR - Last Filed: 10/18/20 02:52> <LEVI PATRICK - Last Filed: 10/18/20 10:06> - General Chief Complaint: Arm Pain Stated Complaint: ARM PAIN Primary Care Provider: HILARY HERNANDEZ MD [Primary Care Provider] - Follow up as needed Notes: 35-year-old female with ESRD on dialysis Wednesday last dialysis 10/15/2020, insulin-dependent diabetes, hypertension, PVD with right subclavian stent presents with few days of pain in the right upper extremity. Patient describes few days of mild pain and mild swelling in entire right upper extremity but worst in right index finger and right thumb but then suddenly a few hours prior to arrival pain became much worse and at that point became a severe sharp shooting pain from the tip of index finger radiating up right upper extremity to right upper chest that feels worse when she moves her right shoulder right wrist and right index finger. Patient has had no injuries and kerns s not had any similar episodes in the past. Patient saw her vascular surgeon for this pain and he accessed her right arm fistula and performed angiogram and found no abnormalities in the fistula or in her subclavian stent. Patient says the pain in her chest just feels worse when she moves her arm but denies any exertional chest pain, pleuritic chest pain, other extremity edema, DVT/PE history. Patient also denies weakness, numbness, fever, rashes. (BRUALIO BOWDEN) - Related Data Allergies/Adverse Reactions: aspirin [Aspirin] Allergy (Verified 08/28/20 12:45) Anaphylaxis ciprofloxacin [From Cipro] Allergy (Verified 08/28/20 12:45) Anaphylaxis clindamycin [Clindamycin] Allergy (Verified 08/28/20 12:45) hydrocodone [From Vicodin] Allergy (Verified 08/28/20 12:45) ibuprofen [From Motrin] Allergy (Verified 08/28/20 12:45) Anaphylaxis lidocaine [From Lidoderm] Allergy (Verified 08/28/20 12:45) Generalized rash tramadol HCl [From Ultram] Allergy (Verified 08/28/20 12:45) vancomycin [Vancomycin] Allergy (Verified 08/28/20 12:45) Shortness of Breath nitroglycerin [Nitroglycerin] Adverse Reaction (Intermediate, Verified 08/28/20 12:45) Joint pain Past Medical History - General Information source: Patient, [facility] Records - Social History Smoking Status: Never Smoker Family History: Reviewed & Not Pertinent, Hypertension - Past Medical History Cardiac Medical History: Reports: Hx Congestive Heart Failure, Hx Coronary Artery Disease, Hx Heart Attack, Hx Hypertension, Hx Heart Murmur Pulmonary Medical History: Reports: Hx Asthma, Hx Pneumonia Neurological Medical History: Reports: Hx Migraine, Hx Seizures - only r/t low calcium. Denies: Hx Parkinson's Disease Endocrine Medical History: Reports: Hx Diabetes Mellitus Type 1, Hx Diabetes Mellitus Type 2 Renal/ Medical History: Reports: Hx End Stage Renal Disease - On hemodialysis M-W-F, Hx Hemodialysis - MWF, Hx Ovarian Cysts. Denies: Hx Peritoneal Dialysis Malignancy Medical History: GI Medical History: Reports: Hx Gastritis Musculoskeletal Medical History: Skin Medical History: Reports Hx Psoriasis Psychiatric Medical History: Reports: Hx Depression Traumatic Medical History: Infectious Medical History: Past Surgical History: Reports: Hx Appendectomy, Hx Cholecystectomy, Hx Vascular Surgery - Lt AV Fistula and graft; Rt AV fistula - Immunizations Immunizations up to date: Yes Hx Diphtheria, Pertussis, Tetanus Vaccination: Yes Hx Pneumococcal Vaccination: 08/22/11 <BRAULIO BOWDEN - Last Filed: 10/18/20 02:09> Review of Systems <BRAULIO BOWDEN - Last Filed: 10/18/20 02:09> - Review of Systems Notes: REVIEW OF SYSTEMS: CONSTITUTIONAL : Denies fever, chills, or sweats. EENT: Denies recent cold/sinus symptoms, denies throat pain CARDIOVASCULAR: + chest pain, -OBI RESPIRATORY: Denies cough, denies shortness of breath. GASTROINTESTINAL: Denies abdominal pain, nausea/vomiting. GENITOURINARY: Denies difficulty urinating, painful urination. FEMALE GENITOURINARY: Denies abnormal vaginal bleeding, vaginal discharge. MUSCULOSKELETAL: Denies neck pain, back pain. SKIN: Denies rash or skin lesions. HEMATOLOGIC : Denies easy bruising or bleeding. LYMPHATIC: Denies swollen, enlarged glands. NEUROLOGICAL: Denies headache, denies change in gait. PSYCHIATRIC: Denies anxiety or stress or depression. (BOWDEN,BRAULIO Best) Physical Exam <BRAULIO BOWDEN - Last Filed: 10/18/20 02:09> - Vital signs Vitals: Pulse Ox 100 10/17/20 20:50 - Notes Notes: PHYSICAL EXAMINATION: GENERAL: Uncomfortable appearing adult female sitting up in stretcher in no acute distress HEAD: Atraumatic, normocephalic. EYES: Pupils equal round and appropriate constriction, sclera anicteric, conjunctiva are normal. ENT: nares patent, moist mucous membranes. NECK: Normal range of motion, supple without lymphadenopathy LUNGS: Breath sounds clear to auscultation bilaterally and equal. No wheezes rales or rhonchi. Normal respiratory rate and effort HEART/CHEST: Regular rate and rhythm without murmurs, chest nontender, no masses, normal inspection ABDOMEN: Soft, nontender, no guarding, no masses, no CVAT EXTREMITIES: Bilateral radial pulses 2+, right forearm fistula with +thrill, cap refill 1 second in all fingers, very mild right hand edema diffusely, all skin intact, no focal edema, no induration, no erythema, no abnormal warmth, full strength and sensation in all extremity distributions but significant diffuse sharp pain with all movements of index finger and thumb, no bony tenderness or deformity, able to fully range right shoulder and elbow without any significant pain and no tenderness of these articulations NEUROLOGICAL: Awake, alert, conversing appropriately, moves all extremities spontaneously. PSYCH: Normal mood, normal affect. SKIN: Warm, Dry, normal turgor, no rashes or lesions noted. (BOWDENPRANAY KoenigRA Nasir) Course - Laboratory Result Diagrams: 10/17/20 22:30 10/17/20 22:30 <BRAULIO BOWDEN - Last Filed: 10/18/20 02:09> - Laboratory Result Diagrams: 10/17/20 22:30 10/18/20 01:35 <SHARON RON JR - Last Filed: 10/18/20 02:52> - Laboratory Result Diagrams: 10/17/20 22:30 10/18/20 01:35 <LEVI PATRICK - Last Filed: 11/27/20 10:06> - Re-evaluation Re-evalutation: 10/18/20 00:27 Patient in significant pain which is likely the source of her vital sign abnormalities. right arm pain and edema radiating to lateral upper right chest, patient with subclavian stent on the right but this was investigated by vascular surgeon during current symptoms arterial cause ruled out and no signs of ischemia to limb on ED evaluation. No signs of infection. Rule out right upper extremity DVT and PE. Pain most consistent with a radial nerve impingement v. tendinitis, likely secondary to volume overload. No signs of cervical nerve source of pain. Less likely occult atraumatic hand fracture, but will obtain diagnostic x-ray of hand. On work-up patient found to have hyperkalemia with peaked T waves, but normal intervals. Patient's dialysis was delayed 1 day because of holiday. Patient has appointment at 10:45 AM today for dialysis at [facility] dialysis at [address] [place] [address] in [place]. Given decreased resources in the pandemic, no current availability for dialysis beds in this hospital, and shortage of outside dialysis beds will stabilize patient's potassium here in ED and arrange ambulance transport to her dialysis center to have dialysis as scheduled this morning. Will rule out PE with VQ scan as unable to obtain adequate access for CTA chest prior to transferring pt to dialysis and will either obtain right upper extremity ultrasound for DVT rule out in the morning at 8 AM when cardiovascular technician arrives or instruct patient to return after dialysis for ultrasound (empiric dose of Lovenox given). gave D50, insulin, serial nebs, calcium gluconate, and Kayexalate for hyperkalemia. Repeat EKG ordered and additional repeat EKG and repeat BMP scheduled for 4 AM. Discussed plan with overnight physician Dr. Ron, charge nurse, and patient 's RN. 10/18/20 00:46 Repeat EKG shows improvement of NM interval and peak T waves. Give additional dose of hydromorphone for hand pain as patient is chronically on high doses of p.o. opioids at home for other chronic pain and has high tolerance. Patient otherwise remains stable, pain greatly improved with analgesia. Patient turned over to Dr. Ron pending repeat lab and EKG, VQ scan, and transfer to dialysis in the morning. 10/18/20 02:09 Patient approximately 20 minutes ago again experiencing retrosternal chest pain described as tightness without radiation different than the pain that she initially presented with. Patient says that pain was severe and patient appeared uncomfortable and repeat EKG was ordered which showed no significant dynamic changes from prior EKGs. Because of this chest pain I also ordered a troponin and I informed patient that we would need to transfer her for chest pain work-up because she cannot stay in this hospital as there is no ability to dialyze her here and she is too high risk for ACS to be ruled out in the emergency department. Patient refused transfer because she is concerned that if she has an admission that it will affect her candidacy for renal and pancreatic transplant. I tried to speak to patient regarding this concern and told her that her being in better health which is more likely if she had the appropriate work-up would make her a better candidate for transplant but she did not change her mind. Patient wanted to wait until troponin resulted to make a decision about whether to be transferred or leave against medical advice. I told patient that even if troponin was negative that this would not mean that nothing was going on with her heart and that a negative troponin did not mean that she could leave AGAINST MEDICAL ADVICE safely which she did demonstrate understanding of. Chest pain could be secondary to PE which patient is still pending VQ scan to rule out, but given that patient remains completely hemodynamically stable there is no indication to change plan for PE rule out at this time. Patient was given Lovenox and no indication for TPA at this time. I informed Dr. Ron of this change in plan and he will discuss with patient what her decision is after troponin results. (BRAULIO BOWDEN) - Vital Signs Vital signs: Temp Pulse Resp BP Pulse Ox 97.6 F 18 170/83 H 100 10/18/20 06:54 10/18/20 07:01 10/18/20 07:01 10/18/20 07:01 - Laboratory Laboratory results interpreted by me: 10/17/20 10/17/20 10/17/20 22:30 22:30 22:30 WBC 10.8 H Hgb 11.0 L Hct 33.9 L RDW 17.4 H Eos % (Auto) 10.0 H Absolute Eos (auto) 1.1 H D-Dimer 1.84 H Sodium 132.3 L Potassium 7.1 H* Chloride 92 L Carbon Dioxide 21 L Anion Gap BUN 64 H Creatinine 11.49 H Est GFR ( Amer) 5 L Est GFR (MDRD) Non-Af 4 L Glucose 273 H POC Glucose Total Protein 8.7 H 10/18/20 10/18/20 00:13 01:35 WBC Hgb Hct RDW Eos % (Auto) Absolute Eos (auto) D-Dimer Sodium 132.4 L Potassium 5.7 H D Chloride 92 L Carbon Dioxide 18 L Anion Gap 22 H BUN 65 H Creatinine 11.24 H Est GFR ( Amer) 5 L Est GFR (MDRD) Non-Af 4 L Glucose 375 H POC Glucose 268 H Total Protein - EKG Interpretation by Me Additional EKG results interpreted by me: 10/18/20 02:15 Initial EKG 10/17/20202058: Sinus rhythm, first-degree heart block, no significant ST elevations or depressions, LVH, peaked T waves, borderline NM interval at 200, normal P waves Second EKG at 0035 10/18/2020: Repeat EKG, no significant change from initial, peak T waves improved, NM interval improved Third EKG at 0134: Sinus tachycardia, no significant dynamic changes, no significant ST elevations or depressions (BRAULIO BOWDEN) Critical Care Note <SHARON RON JR - Last Filed: 10/18/20 02:52> - Critical Care Note Comments: Dr. Farah was called and she advised no in-house dialysis. Patient was off ered transfer and she refuses this. I called up Dr. Hernandez and he advises he will accept the patient but cannot do dialysis. Patient history was again offered to Dr. Hernandez at 0 256 and he advises he knows this patient well and suggest that after dialysis her left lower lobe infusion may dissipate. He did not want her to be admitted here. I discussed this with patient as well. We will give her antibiotics here and have her follow-up with dialysis. We also follow-up with VQ scan here today as per Dr. Bowden. (SHARON RON JR) Discharge <BRAULIO BOWDEN - Last Filed: 10/18/20 02:09> <SHARON RON JR - Last Filed: 10/18/20 02:52> <LEVI PATRICK - Last Filed: 10/18/20 10:06> - Discharge Clinical Impression: ESRD (end stage renal disease) on dialysis, Hyperkalemia Chronic deep vein thrombosis (DVT) Qualifiers: DVT location: upper extremity Affected thrombotic vein of extremity: unspeci fied vein of extremity Laterality: right Qualified Code(s): I82.721 - Chronic embolism and thrombosis of deep veins of right upper extremity Condition: Stable Disposition: [facility] Additional Instructions: Go to dialysis. Follow-up with Dr. Farah today after dialysis. Referrals: HILARY HERNANDEZ MD [Primary Care Provider] - Follow up as needed
--- NOTE | 2020-10-17 23:03 | EKG REPORT ---
SEVERITY:- ABNORMAL ECG - SINUS RHYTHM WITH FIRST DEGREE AVB PROBABLE LEFT ATRIAL ABNORMALITY NONSPECIFIC INTRAVENTRICULAR CONDUCTION DELAY LVH WITH SECONDARY REPOLARIZATION ABNORMALITY : Confirmed by: Ciro Beckford MD 17-Oct-2020 23:02:16
[2020-10-17 23:09] LABS: ALBUMIN 4.7 g/dL (3.5-5.0); ALKALINE PHOSPHATASE 88 U/L (38-126); ANION GAP 19 (5-19); ASPARTATE AMINO TRANSFERASE 19 U/L (14-36); BILIRUBIN,DIRECT 0.4 mg/dL (0.0-0.4); BILIRUBIN,TOTAL 0.4 mg/dL (0.2-1.3); BLOOD UREA NITROGEN 64 mg/dL (7-20); CALCIUM 9.9 mg/dL (8.4-10.2); CARBON DIOXIDE 21 mmol/L (22-30); CHLORIDE 92 mmol/L (98-107); GLUCOSE 273 mg/dL (75-110); TOTAL PROTEIN 8.7 g/dL (6.3-8.2)
[2020-10-17 23:14] LABS: POTASSIUM 7.1 mmol/L (3.6-5.0)
[2020-10-17] MEDS ORDERED: ALBUTEROL SULFATE 0.083% NEB 2.5 MG/3 ML AMPUL NEB ONE (23:22)
[2020-10-17] MEDS ORDERED: DEXTROSE 50%-WATER 25 GM/50 ML DISP.SYRIN IV ONE (23:23)
[2020-10-17] MEDS ORDERED: SODIUM POLYSTYRENE SULFONATE 15 GM/60 ML PO ONE (23:23)
[2020-10-17] MEDS ORDERED: CALCIUM GLUCONATE 1000 MG/10 ML INJ IV ONE (23:23)
[2020-10-17] MEDS ORDERED: INSULIN REG, HUMAN 100 UNIT/ML 3 ML VIAL (PYX) IV ONE (23:24)
[2020-10-17] MEDS ORDERED: ENOXAPARIN SODIUM INJ 120 MG/0.8 ML DISP.SYRIN SUBCUT ONE (23:59)
--- NOTE | 2020-10-18 01:13 | RADIOLOGY REPORT (SQ) ---
EXAM DESCRIPTION: CHEST SINGLE VIEW CLINICAL HISTORY: 35 years Female, R upper CP RUE pain HD DM COMPARISON: Single view of the chest September 11, 2020 FINDINGS: Lungs: Lung volumes are low. There is increasing central airways thickening. Subtle opacification is present in the left infrahilar region. No pneumothorax. Mediastinum: Cardiac and mediastinal silhouette are widened. There is multiple vascular stents projecting over the right axilla and right upper arm. Bones: Osseous structures are normal. IMPRESSION: Low lung volumes with cardiomegaly. There is increasing airways thickening and developing opacification in the left lower lobe.
--- NOTE | 2020-10-18 01:15 | RADIOLOGY REPORT (SQ) ---
EXAM DESCRIPTION: XR HAND 3 OR MORE VIEWS COMPLETED DATE/TME: 10/18/2020 00:51 CLINICAL HISTORY: 35 years, Female, right index finger pain hand swelling COMPARISON: None. NUMBER OF VIEWS: 3 TECHNIQUE: Three views of the right hand were obtained LIMITATIONS: None. FINDINGS: No bone or joint abnormality is seen. There is no soft tissue gas or opaque foreign body. Extensive arterial calcifications are noted. IMPRESSION: No acute abnormality as above. copyright 2010 [employer]- All Rights Reserved
[2020-10-18] MEDS ORDERED: NIFEDIPINE 10 MG CAPSULE PO ONE (01:29)
[2020-10-18] MEDS ORDERED: CLONIDINE HCL 0.1 MG TABLET PO ONE (01:30)
[2020-10-18] MEDS ORDERED: CARVEDILOL 3.125 MG TABLET PO ONE (01:30)
[2020-10-18] MEDS ORDERED: NITROGLYCERIN 0.4 MG/TAB 25 TAB/BOTTLE SL PRN (01:32)
[2020-10-18] MEDS ORDERED: HYDROMORPHONE HCL INJ/PF 2 MG/ML AMPULE IV ONE ×2 (02:04→04:38)
[2020-10-18 02:12] LABS: BLOOD UREA NITROGEN 65 mg/dL (7-20); CALCIUM 9.9 mg/dL (8.4-10.2); CHLORIDE 92 mmol/L (98-107); GLUCOSE 375 mg/dL (75-110)
[2020-10-18 02:18] LABS: CARBON DIOXIDE 18 mmol/L (22-30)
[2020-10-18] MEDS ORDERED: NIFEDIPINE 10 MG CAPSULE ONE ×2 (02:20→03:02)
[2020-10-18 02:21] LABS: ANION GAP 22 (5-19); POTASSIUM 5.7 mmol/L (3.6-5.0)
[2020-10-18] MEDS ORDERED: LEVOFLOXACIN 500 MG TABLET PO ONE (03:27)
--- NOTE | 2020-10-18 08:02 | RADIOLOGY REPORT (SQ) ---
Perfusion lung scan: Clinical indication: 35-year old patient with edema, positive d-dimer, dyspnea. Comparison: Chest radiograph performed 10/18/2020. Technique: Following the intravenous injection of 5.19 mCi of technetium 99m labeled MAA, planar images of the chest were obtained in multiple projections. No ventilation imaging was obtained. Findings: There is homogeneous radiotracer distribution in the lungs on perfusion images. There is a single matched defect at the right lung base. Impression: Low probability ventilation/perfusion lung scan.
[2020-10-18] MEDS ORDERED: PROMETHAZINE HCL INJ 25 MG/1 ML VIAL IV ONE (08:47)
[2020-10-18 10:06] VITALS: BP 179/155
--- NOTE | 2020-10-18 10:36 | RADIOLOGY REPORT (SQ) ---
EXAM DESCRIPTION: VENOUS UNILATERAL UPPER IMAGES COMPLETED DATE/TIME: 10/18/2020 10:03 am REASON FOR STUDY: RUE swelling pain dialysis fistula COMPARISON: Venous Doppler exams 10/07/2017, 01/12/2019, 12/28/2019, 01/14/2020 TECHNIQUE: Dynamic and static calvillo scale and color images acquired of the right arm venous system. S elected spectral images acquired with additional compression and augmentation maneuvers. Images stor ed on PACS. LIMITATIONS: None. FINDINGS: RIGHT INTERNAL JUGULAR VEIN: Chronic incompletely occlusive echogenic clot is present the right internal ju gular similar compared to 01/14/2020, 12/28/2019 SUBCLAVIAN VEIN: Chronic incompletely occlusive echogenic clot is present in the right subclavian vei n, with a prominent collateral vessel, similar compared to 01/14/2020, 12/28/2019. AXILLARY VEIN: Normal compression, augmentation. No visualized echogenic material on calvillo scale. No d efects on color images. BRACHIAL VEIN: Normal compression, augmentation. No visualized echogenic material on calvillo scale. No d efects on color images. BASILIC VEIN: Normal compression, augmentation. No visualized echogenic material on calvillo scale. No de fects on color images. Diminished size and flow, likely related to cephalic vein AV graft. CEPHALIC VEIN: Normal compression, augmentation. No visualized echogenic material on calvillo scale. No d efects on color images. Right cephalic vein is ectatic, providing in flow to dialysis graft. 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 This new compared to prior studies. OTHER: No other significant finding. IMPRESSION: Chronic appearing incompletely occlusive clot in the right internal jugular and subclavi an veins with prominent right subclavian venous collateral, unchanged from 01/14/2020. 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
--- NOTE | 2020-10-18 11:11 | EKG REPORT ---
SEVERITY:- ABNORMAL ECG - SINUS TACHYCARDIA NONSPECIFIC INTRAVENTRICULAR CONDUCTION DELAY PROBABLE LVH WITH SECONDARY REPOL ABNRM : Confirmed by: Ciro Beckford MD 18-Oct-2020 11:10:26
--- NOTE | 2020-10-18 11:12 | EKG REPORT ---
SEVERITY:- ABNORMAL ECG - SINUS TACHYCARDIA NONSPECIFIC INTRAVENTRICULAR CONDUCTION DELAY PROBABLE LVH WITH SECONDARY REPOL ABNRM LA ENLARGEMENT : Confirmed by: Ciro Beckford MD 18-Oct-2020 11:11:22
--- NOTE | 2020-10-19 11:48 | EKG REPORT ---
SEVERITY:- ABNORMAL ECG - SINUS TACHYCARDIA REPOL ABNRM SUGGESTS ISCHEMIA, LATERAL LEADS BORDERLINE PROLONGED QT INTERVAL : Confirmed by: Ciro Beckford MD 19-Oct-2020 11:47:30
--- NOTE | 2020-10-19 11:48 | EKG REPORT ---
SEVERITY:- ABNORMAL ECG - SINUS TACHYCARDIA PROBABLE LEFT ATRIAL ABNORMALITY BORDERLINE LEFT AXIS DEVIATION REPOL ABNRM SUGGESTS ISCHEMIA, LATERAL LEADS : Confirmed by: Ciro Beckford MD 19-Oct-2020 11:47:45
== END 2020-10-18 10:14 | disposition home health service (06) ==
LOC: ER 20:49
DX: I82.721 Chronic embolism and thrombosis of deep veins of right upper extremity (principal); E87.5 Hyperkalemia; E11.22 Type 2 diabetes mellitus with diabetic chronic kidney disease; I13.2 Hypertensive heart and chronic kidney disease with heart failure and with stage 5 chronic kidney disease, or end stage renal disease; I50.9 Heart failure, unspecified; N18.6 End stage renal disease; Z99.2 Dependence on renal dialysis
CPT/HCPCS: 93005 ×2; 96376; 94640; 99285; 96372; 96375 ×2; 96365; 36415; 82962; 84703; 85025; 80048; 80053; 84484; 85379; 93971; 71045; 73130; 78580; 93010 ×2; A9540; J0610; A9270 ×8; J3490; J1650; J1170 ×2; J2550; Q9969; J1815; J7512; J7613

== ENCOUNTER 2020-10-19 05:25 | Emergency (ER) | payer MEDICARE, MEDICAID ==
[2020-10-19 07:58] LABS: ABSOLUTE BASOPHILS # (AUTO) 0.1 10^3/uL (0.0-0.2); ABSOLUTE EOSINOPHILS # (AUTO) 0.6 10^3/uL (0.0-0.6); ABSOLUTE LYMPHOCYTES (AUTO) 2.2 10^3/uL (0.5-4.7); ABSOLUTE MONOCYTES (AUTO) 0.8 10^3/uL (0.1-1.4); ABSOLUTE NEUT (AUTO) 5.7 10^3/uL (1.7-8.2); BASOPHILS % (AUTO) 0.6 % (0-2); EOSINOPHILS % (AUTO) 6.6 % (0-6); HEMATOCRIT 31.2 % (36.0-47.0); HEMOGLOBIN 10.2 g/dL (12.0-15.5); LYMPHOCYTES % (AUTO) 23.4 % (13-45); MEAN CORPUSCULAR HEMOGLOBIN 29.1 pg (27.0-33.4); MEAN CORPUSCULAR HGB CONC 32.8 g/dL (32.0-36.0); MEAN CORPUSCULAR VOLUME 89 fl (80-97); MONOCYTES % (AUTO) 8.2 % (3-13); PLATELET COUNT 320 10^3/uL (150-450); RED BLOOD COUNT 3.51 10^6/uL (3.72-5.28); RED CELL DISTRIBUTION WIDTH 17.3 % (11.5-14.0); SEGMENTED NEUTROPHILS % (AUTO) 61.2 % (42-78); TOTAL CELLS COUNTED % (AUTO) 100 %; WHITE BLOOD COUNT 9.2 10^3/uL (4.0-10.5)
[2020-10-19 08:04] LABS: ALBUMIN 4.2 g/dL (3.5-5.0); ALKALINE PHOSPHATASE 83 U/L (38-126); ANION GAP 15 (5-19); ASPARTATE AMINO TRANSFERASE 33 U/L (14-36); BILIRUBIN,DIRECT 0.3 mg/dL (0.0-0.4); BILIRUBIN,TOTAL 0.3 mg/dL (0.2-1.3); BLOOD UREA NITROGEN 48 mg/dL (7-20); CALCIUM 9.4 mg/dL (8.4-10.2); CARBON DIOXIDE 28 mmol/L (22-30); CHLORIDE 90 mmol/L (98-107); CREATINE KINASE 175 U/L (30-135); POTASSIUM 4.9 mmol/L (3.6-5.0); TOTAL PROTEIN 7.8 g/dL (6.3-8.2)
--- NOTE | 2020-10-19 08:09 | ER Document Report ---
ED General - General Chief Complaint: Chest Pain Stated Complaint: CHEST PAIN Time Seen by Provider: 10/19/20 08:08 Primary Care Provider: HILARY HERNANDEZ MD [Primary Care Provider] - Follow up as needed TRAVEL OUTSIDE OF THE [place] IN LAST 30 DAYS: No - HPI Notes: 35-year-old female with a history of end-stage renal disease on dialysis who went yesterday, insulin-dependent diabetes, hypertension, CHF, asthma, diabetes, RA, PVD with right subclavian stent, and an OK in October 2019 in April 2020 presents to the ED via EMS with substernal chest pain that radiates to her right jaw that started after midnight and before the son came up. Reports chest pain has been constant along with having nausea, no vomiting but shortness of breath. Denies any abdominal pain. Patient states she is anticoagulated on Plavix and baby aspirin. Denies being a smoker. Last menstrual cycle was 09/19/2020. Patient did receive 324 mg of baby aspirin in the ambulance, her rapid Covid test was negative as well as her Covid screen was negative. Patient did not take any of her medications this morning. Patient reports pain is sharp and constant. - Related Data Allergies/Adverse Reactions: aspirin [Aspirin] Allergy (Verified 08/28/20 12:45) Anaphylaxis ciprofloxacin [From Cipro] Allergy (Verified 08/28/20 12:45) Anaphylaxis clindamycin [Clindamycin] Allergy (Verified 08/28/20 12:45) hydrocodone [From Vicodin] Allergy (Verified 08/28/20 12:45) ibuprofen [From Motrin] Allergy (Verified 08/28/20 12:45) Anaphylaxis lidocaine [From Lidoderm] Allergy (Verified 08/28/20 12:45) Generalized rash tramadol HCl [From Ultram] Allergy (Verified 08/28/20 12:45) vancomycin [Vancomycin] Allergy (Verified 08/28/20 12:45) Shortness of Breath nitroglycerin [Nitroglycerin] Adverse Reaction (Intermediate, Verified 08/28/20 12:45) Joint pain Past Medical History - General Information source: Patient - Social History Smoking Status: Never Smoker Family History: Reviewed & Not Pertinent, Hypertension - Past Medical History Cardiac Medical History: Reports: Hx Congestive Heart Failure, Hx Coronary Artery Disease, Hx Heart Attack, Hx Hypertension, Hx Heart Murmur Pulmonary Medical History: Reports: Hx Asthma, Hx Pneumonia Neurological Medical History: Reports: Hx Migraine, Hx Seizures - only r/t low calcium. Denies: Hx Parkinson's Disease Endocrine Medical History: Reports: Hx Diabetes Mellitus Type 1, Hx Diabetes Mellitus Type 2 Renal/ Medical History: Reports: Hx End Stage Renal Disease - On hemodialysis M-W-F, Hx Hemodialysis - MWF, Hx Ovarian Cysts. Denies: Hx Peritoneal Dialysis Malignancy Medical History: GI Medical History: Reports: Hx Gastritis Musculoskeletal Medical History: Skin Medical History: Reports Hx Psoriasis Psychiatric Medical History: Reports: Hx Depression Traumatic Medical History: Infectious Medical History: Past Surgical History: Reports: Hx Appendectomy, Hx Cholecystectomy, Hx Vascular Surgery - Lt AV Fistula and graft; Rt AV fistula - Immunizations Immunizations up to date: Yes Hx Diphtheria, Pertussis, Tetanus Vaccination: Yes Hx Pneumococcal Vaccination: 08/22/11 Review of Systems - Review of Systems Constitutional: No symptoms reported EENT: No symptoms reported Cardiovascular: See HPI Respiratory: No symptoms reported Gastrointestinal: No symptoms reported Genitourinary: No symptoms reported Female Genitourinary: No symptoms reported Musculoskeletal: No symptoms reported Skin: No symptoms reported Hematologic/Lymphatic: No symptoms reported Neurological/Psychological: No symptoms reported Physical Exam - Vital signs Vitals: Temp Pulse Resp BP Pulse Ox 98 F 117 H 21 H 178/141 H 100 10/19/20 05:38 10/19/20 05:38 10/19/20 05:38 10/19/20 05:38 10/19/20 05:38 - Notes Notes: MEDICATIONS: I agree with the patient medications as charted by the RN. ALLERGIES: I agree with the allergies as charted by the RN. PAST MEDICAL HISTORY/PAST SURGICAL HISTORY: Reviewed and agree as charted by RN. SOCIAL HISTORY: Reviewed and agree as charted by RN. FAMILY HISTORY: No significant familial comorbid conditions directly related to patient complaint EXAM: Reviewed vital signs as charted by RN. PHYSICAL EXAMINATION: reviewed vital signs by RN GENERAL: Chronically ill well-nourished and in no acute distress. HEAD: Atraumatic, normocephalic. EYES: Pupils equal round and reactive to light, extraocular movements intact, conjunctiva are normal. ENT: Nares patent, oropharynx clear without exudates. Moist mucous membranes. NECK: Normal range of motion, supple without lymphadenopathy LUNGS: Breath sounds clear to auscultation bilaterally and equal. No wheezes rales or rhonchi. HEART: Sinus tachycardia. Nonreproducible chest pain on palpation ABDOMEN: Soft, nontender, nondistended abdomen. No guarding, no rebound. No masses appreciated. Female : deferred Musculoskeletal: Normal range of motion, no pitting or edema. No cyanosis. NEUROLOGICAL: Cranial nerves grossly intact. Normal speech, normal gait. Normal sensory, motor exams PSYCH: Normal mood, normal affect. SKIN: Warm, Dry, normal turgor, no rashes or lesions noted. +1 pitting edema bilaterally. Distal pulses +2 bilaterally equally - Extremities Notes: Fistula in right arm Course - Re-evaluation Re-evalutation: 10/19/20 09:13 Afebrile, hypertensive and tachycardic, 100% on room air respiratory rate 18. Serum troponin 10.9, EKG negative for STEMI however her blood work does show she does have an NSTEMI. Dr. Obed Scanlon, ER supervising physician made aware of troponin and collaborated with me for transfer of patient to [facility], since this is where she went the last time she had a NSTEMI. CBC negative for leukocytosis, patient does have anemia, glucose is 447, she did not take her Levemir this morning, will start patient IV fluids as well as 10 units of insulin. Patient's creatinine is 8.22 with a BUN of 48. Liver enzymes are normal. Heparin drip started per protocol. she did not take her blood pressure medication this morning patient's blood pressure is 185/85, coordination with supervising physician, will start patient on a nitro drip per protocol. Discussed with patient that her troponin is elevated and that she will need to go to [facility] for further management of her NSTEMI. Patient's creatinine being elevated and needing dialysis, Dr. Isacc Chen felt that it would be prudent for her to go to a another location for her cardiac care as well as for dialysis. patient verbalized an understanding of this plan of care and agreed with plan of care. Consulted with [facility] at 0839 this morning, who directed me that Dr. Rachel Ring, rod tape operator, will accept patient. Patient verbalized understanding of this plan of care and agree with plan of care going [facility] for further medical evaluation for her NSTEMI - Vital Signs Vital signs: Temp Pulse Resp BP Pulse Ox 98 F 117 H 15 185/88 H 100 10/19/20 05:38 10/19/20 05:38 10/19/20 09:01 10/19/20 09:01 10/19/20 09:01 - Laboratory Result Diagrams: 10/19/20 09:23 10/19/20 06:38 Laboratory results interpreted by me: 10/19/20 10/19/20 10/19/20 06:38 06:38 06:38 RBC 3.51 L Hgb 10.2 L Hct 31.2 L RDW 17.3 H Eos % (Auto) 6.6 H Absolute Eos (auto) APTT Sodium 132.9 L Chloride 90 L BUN 48 H Creatinine 8.22 H Est GFR ( Amer) 7 L Est GFR (MDRD) Non-Af 6 L Glucose 447 H* Creatine Kinase 175 H CK-MB (CK-2) 7.00 H 10/19/20 10/19/20 09:23 09:23 RBC 3.54 L Hgb 10.2 L Hct 31.6 L RDW 17.3 H Eos % (Auto) 6.8 H Absolute Eos (auto) 0.7 H APTT 37.9 H Sodium Chloride BUN Creatinine Est GFR ( Amer) Est GFR (MDRD) Non-Af Glucose Creatine Kinase CK-MB (CK-2) - EKG Interpretation by Me EKG shows normal: Sinus rhythm Rate: Tachycardia Additional EKG results interpreted by me: 10/19/20 09:28 Heart rate 107, sinus tachycardia, interpreted by Dr. Obed Scanlon, P axis 64, QRS axis -3, T [place] 108. No STEMI Discharge - Discharge Clinical Impression: NSTEMI (non-ST elevated myocardial infarction) Condition: Stable Disposition: [facility], [facility] Referrals: HILARY HERNANDEZ MD [Primary Care Provider] - Follow up as needed
[2020-10-19 08:12] LABS: GLUCOSE 447 mg/dL (75-110)
[2020-10-19] MEDS ORDERED: NORMAL SALINE 1000 ML 1,000 ML IV ONE (08:13)
[2020-10-19] MEDS ORDERED: INSULIN REG, HUMAN 100 UNIT/ML 3 ML VIAL (PYX) IV ONE (08:13)
[2020-10-19 08:16] LABS: TROPONIN I 10.9 ng/mL
[2020-10-19] MEDS ORDERED: HEPARIN SOD (PORCINE) 1,000 UNIT/ML 10 ML VIAL IV ONE (08:23)
[2020-10-19] MEDS ORDERED: DEXTROSE 5%-WATER 250 ML with NITROPRUSSIDE SODIUM 50 MG IV PRN ×2 (08:27)
--- NOTE | 2020-10-19 08:35 | ER Document Report ---
Doctor's Note Notes: 10/19/20 08:32 This is a 35-year-old female I was asked see along with midlevel provider. This lady has a history of end-stage renal disease on dialysis, hypertension, diabetes mellitus and CAD with previous non-STEMI treated in October of last year presenting now with chest pain intermittently since last night. She is having ongoing pain now. She is quite hypertensive. Patient is very obese. Her chest is clear she has 1+ edema of her lower extremities. Chest wall is nontender. Peripheral pulses are bounding and equal. Patient's EKG shows sinus tachycardia and repolarization changes but she does not meet criteria for STEMI. Her troponin, however, is quite elevated in excess of 10. Overall presentation is most consistent with non-STEMI. Patient reports an anaphylactic reaction to aspirin. I suggested we give her Plavix and place her on IV heparin and IV nitroglycerin. She can also received morphine as needed to control her pain. She will need transfer back to cardiology service at [facility] in [facility] where she was previously treated.
[2020-10-19] MEDS ORDERED: MORPHINE SULFATE 10 MG/ML INJ IV ONE (08:54)
[2020-10-19] MEDS ORDERED: NITROGLYCERIN/D5W 50 MG/250 ML RTUINJ IV PRN (08:58)
--- NOTE | 2020-10-19 09:11 | RADIOLOGY REPORT (SQ) ---
EXAM DESCRIPTION: CHEST SINGLE VIEW IMAGES COMPLETED DATE/TIME: 10/19/2020 8:55 am REASON FOR STUDY: chest pain COMPARISON: 10/18/2020 EXAM PARAMETERS: NUMBER OF VIEWS: One view. TECHNIQUE: Single frontal radiographic view of the chest acquired. RADIATION DOSE: NA LIMITATIONS: None. FINDINGS: LUNGS AND PLEURA: No discrete opacities. Low lung volumes. MEDIASTINUM AND HILAR STRUCTURES: No masses. Contour normal. HEART AND VASCULAR STRUCTURES: Heart normal in size. Normal vasculature. BONES: No acute findings. HARDWARE: Vascular stent OTHER: No other significant finding. IMPRESSION: Stable appearance. TECHNICAL DOCUMENTATION: JOB ID: [id number] 2010 [employer]- All Rights Reserved Reading location - IP/workstation name: [email or web address]
[2020-10-19 09:32] VITALS: BP 185/88
[2020-10-19 09:46] LABS: ABSOLUTE BASOPHILS # (AUTO) 0.1 10^3/uL (0.0-0.2); ABSOLUTE EOSINOPHILS # (AUTO) 0.7 10^3/uL (0.0-0.6); ABSOLUTE LYMPHOCYTES (AUTO) 1.9 10^3/uL (0.5-4.7); ABSOLUTE MONOCYTES (AUTO) 0.9 10^3/uL (0.1-1.4); ABSOLUTE NEUT (AUTO) 6.5 10^3/uL (1.7-8.2); BASOPHILS % (AUTO) 0.5 % (0-2); EOSINOPHILS % (AUTO) 6.8 % (0-6); HEMATOCRIT 31.6 % (36.0-47.0); HEMOGLOBIN 10.2 g/dL (12.0-15.5); LYMPHOCYTES % (AUTO) 18.6 % (13-45); MEAN CORPUSCULAR HEMOGLOBIN 28.7 pg (27.0-33.4); MEAN CORPUSCULAR HGB CONC 32.2 g/dL (32.0-36.0); MEAN CORPUSCULAR VOLUME 89 fl (80-97); MONOCYTES % (AUTO) 8.9 % (3-13); PLATELET COUNT 317 10^3/uL (150-450); RED BLOOD COUNT 3.54 10^6/uL (3.72-5.28); RED CELL DISTRIBUTION WIDTH 17.3 % (11.5-14.0); SEGMENTED NEUTROPHILS % (AUTO) 65.2 % (42-78); TOTAL CELLS COUNTED % (AUTO) 100 %; WHITE BLOOD COUNT 9.9 10^3/uL (4.0-10.5)
[2020-10-19 10:01] LABS: INTERNATIONAL RATION (INR) 0.97; PROTHROMBIN TIME 13.1 SEC (11.4-15.4)
[2020-10-19] MEDS ORDERED: HEPARIN SODIUM,PORCINE/D5W 25,000 UNIT/250 ML RTUINJ IV PRN (10:01)
[2020-10-19 10:02] LABS: PARTIAL THROMBOPLASTIN TIME 37.9 SEC (23.5-35.8)
[2020-10-19] MEDS ORDERED: HEPARIN SODIUM,PORCINE/D5W 25,000 UNIT/250 ML RTUINJ IV ONE (10:04)
== END 2020-10-19 10:22 | disposition short-term general hospital (02) ==
LOC: ER 05:25
DX: I21.4 Non-ST elevation (NSTEMI) myocardial infarction (principal); R07.9 Chest pain, unspecified; R60.9 Edema, unspecified; E11.22 Type 2 diabetes mellitus with diabetic chronic kidney disease; I12.0 Hypertensive chronic kidney disease with stage 5 chronic kidney disease or end stage renal disease; N18.6 End stage renal disease; Z99.2 Dependence on renal dialysis
CPT/HCPCS: 99285; 96361; 96374; 96375; 36415; 82553; 82550; 84702; 85025; 85610; 85730; 80053; 84484; 71045; J1644 ×2; J2270; A9270; J7030; J1815

== ENCOUNTER 2020-10-22 12:48 | Inpatient (IN) | payer MEDICARE, MEDICAID ==
--- NOTE | 2020-10-22 14:39 | RADIOLOGY REPORT (SQ) ---
EXAM DESCRIPTION: CHEST SINGLE VIEW IMAGES COMPLETED DATE/TIME: 10/22/2020 2:27 pm REASON FOR STUDY: short of breath COMPARISON: None. EXAM PARAMETERS: NUMBER OF VIEWS: One view. TECHNIQUE: Single frontal radiographic view of the chest acquired. RADIATION DOSE: NA LIMITATIONS: None. FINDINGS: LUNGS AND PLEURA: There is marked fluffy opacification both lungs, right more than left. MEDIASTINUM AND HILAR STRUCTURES: No masses. Contour normal. HEART AND VASCULAR STRUCTURES: Heart size is borderline. BONES: No acute findings. HARDWARE: Right subclavian/ axillary stent. OTHER: No other significant finding. IMPRESSION: Borderline cardiomegaly. Cannot exclude pulmonary edema. Cannot exclude an atypical in fectious/ inflammatory process such as COVID-19. TECHNICAL DOCUMENTATION: JOB ID: [id number] 2010 [employer]- All Rights Reserved Reading location - IP/workstation name: [email or web address]
[2020-10-22] MEDS ORDERED: ONDANSETRON HCL INJ/PF 4 MG/2 ML SDV IV ONE (15:02)
[2020-10-22 16:20] LABS: ABSOLUTE EOSINOPHILS # (AUTO) 0.7 10^3/uL (0.0-0.6); ABSOLUTE LYMPHOCYTES (AUTO) 1.2 10^3/uL (0.5-4.7); ABSOLUTE MONOCYTES (AUTO) 0.6 10^3/uL (0.1-1.4); ABSOLUTE NEUT (AUTO) 11.3 10^3/uL (1.7-8.2); BASOPHILS % (AUTO) 0.3 % (0-2); EOSINOPHILS % (AUTO) 5.2 % (0-6); HEMATOCRIT 31.6 % (36.0-47.0); LYMPHOCYTES % (AUTO) 8.4 % (13-45); MEAN CORPUSCULAR HEMOGLOBIN 27.9 pg (27.0-33.4); MEAN CORPUSCULAR HGB CONC 31.6 g/dL (32.0-36.0); MEAN CORPUSCULAR VOLUME 88 fl (80-97); MONOCYTES % (AUTO) 4.2 % (3-13); PLATELET COUNT 332 10^3/uL (150-450); RED BLOOD COUNT 3.58 10^6/uL (3.72-5.28); RED CELL DISTRIBUTION WIDTH 16.7 % (11.5-14.0); SEGMENTED NEUTROPHILS % (AUTO) 81.9 % (42-78); TOTAL CELLS COUNTED % (AUTO) 100 %; WHITE BLOOD COUNT 13.8 10^3/uL (4.0-10.5)
[2020-10-22 16:42] LABS: ALKALINE PHOSPHATASE 79 U/L (38-126); ANION GAP 14 (5-19); ASPARTATE AMINO TRANSFERASE 18 U/L (14-36); BILIRUBIN,DIRECT 0.4 mg/dL (0.0-0.4); BILIRUBIN,TOTAL 0.4 mg/dL (0.2-1.3); BLOOD UREA NITROGEN 52 mg/dL (7-20); CARBON DIOXIDE 22 mmol/L (22-30); CHLORIDE 95 mmol/L (98-107); GLUCOSE 137 mg/dL (75-110); TOTAL PROTEIN 7.8 g/dL (6.3-8.2)
[2020-10-22 16:54] LABS: POTASSIUM 7.1 mmol/L (3.6-5.0)
--- NOTE | 2020-10-22 17:58 | PDOC CONSULTATION ---
Consultation Consult Date: 10/22/20 Provider Consulted: Lazarus OLIVARES Consult reason:: ESRD in severe CHF with respiratory failure and severe hyperkalemia History of Present Illness Admission Date/PCP: HILARY HERNANDEZ MD History of Present Illness: ERICH GOODMAN is a 35 year old female with a past medical history of ESRD on hemodialysis in the background of longstanding uncontrolled type 1 diabetes mellitus, hypertension, congestive heart failure, severe noncompliance with diet medications and dialysis treatments was admitted with history of progressive shortness of breath. Last dialysis was on Wednesday. She was transferred to [facility] over the weekend with chest pain and shortness of breath with high troponins and apparently she was worked up over there. Unsure why she could not be dialyzed over there priot her discharge yesterday because she had a clotted access. Therefore she was told to have it declotted at [place] on Wednesday which is today which she had it done and she then went to [facility] dialysis for her regular dialysis. However she was progressively short of breath earlier today and she could not lay still on the recliner at [facility] and therefore she was transferred to the ER on a provisional diagnosis of severe congestive heart failure. Radiologically she has bilateral fluffy shadows that is likely more congestive heart failure than possible COVID pneumonia. Later on labs came back with a potassium of 7.1. Therefore urgent hemodialysis was instituted. I am currently seeing her while undergoing dialysis. She is on a BiPAP.She also mentions that she has a mild cough which is rather none productive. She has also got generalized body aches. She however denies any history of sore throat fever or chills. Labs and medications were discussed with her. Dialysis orders were reviewed with treating dialysis nurse.There is a question whether she may have gotten Covid testing done when she was at [facility] but she is unsure of the test results over this weekend. Past Medical History Cardiac Medical History: Reports: Coronary Artery Disease, Heart Murmur, Hypertension-primary, Myocardial Infarction Pulmonary Medical History: Reports: Asthma, Pneumonia Neurological Medical History: Reports: Migraine, Seizures - only r/t low calcium Endocrine Medical History: Reports: Diabetes Mellitus Type 1 Complications of Diabetes: Reports: Autonomic Neuropathy, Nephropathy, Retinopathy Renal/ Medical History: Reports: End Stage Renal Disease - On hemodialysis -W-F, Hypocalcemia, Hyperkalemia, Secondary Hyperparathyroidism Malignancy Medical History: GI Medical History: Musculoskeltal Medical History: Skin Medical History: Reports: Psoriasis Psychiatric Medical History: Reports: Depression Infectious Medical History: Hematology Medical History: Reports Anemia of Chronic Kidney Disease Past Surgical History Past Surgical History: Reports: Appendectomy, Cholecystectomy, Dialysis Access Surgery AVF, Vascular Surgery - Lt AV Fistula and graft; Rt AV fistula Social History Smoking Status: Unknown if Ever Smoked Frequency of Alcohol Use: Rare Hx Recreational Drug Use: No Drugs: None Hx Prescription Drug Abuse: No Family History Parental Family History Reviewed: Yes - Negative for ESRD Children Family History Reviewed: No Sibling(s) Family History Reviewed.: No Medication/Allergy Home Medications: Calcium Acetate [Phoslo 667 mg Capsule] 1,334 mg PO .[id number] 09/25/19 Calcium Acetate [Phoslo 667 mg Capsule] 2,001 mg PO Q8 09/25/19 Insulin Detemir [Levemir] 35 unit SQ BID 09/25/19 Oxycodone HCl/Acetaminophen [Percocet 7.5-325 mg Tablet] 1 each PO QIDP PRN 09/25/19 Alprazolam 1 mg PO TIDP PRN 10/25/19 Metolazone 10 mg PO BID 10/25/19 Clopidogrel Bisulfate [Plavix 75 mg Tablet] 75 mg PO DAILY 11/29/19 Gabapentin Enacarbil [Horizant] 300 mg PO QPM 03/11/20 Insulin Aspart [Novolog] 12 unit SQ MEALS 03/11/20 Zolpidem Tartrate [Ambien] 10 mg PO HSP PRN 03/11/20 Omeprazole 20 mg PO DAILY 04/26/20 Atorvastatin Calcium [Lipitor 80 mg Tablet] 80 mg PO QHS 05/27/20 Oxcarbazepine 300 mg PO Q12 05/27/20 Linaclotide [Linzess] 290 mcg PO DAILY 07/29/20 Doxycycline Hyclate 100 mg PO BID #14 tablet. 08/02/20 Nifedipine [Nifedipine ER] 60 mg PO Q12 08/05/20 Paroxetine HCl [Paxil] 80 mg PO QPM 08/05/20 Ranolazine [Ranexa 500 mg Tab.sr] 500 mg PO Q12 #60 tab.sr.12h 08/08/20 Cephalexin Monohydrate [Keflex 500 mg Capsule] 500 mg PO Q6H 10 Days #40 capsule 09/12/20 Allergies/Adverse Reactions: aspirin [Aspirin] Allergy (Verified 08/28/20 12:45) Anaphylaxis ciprofloxacin [From Cipro] Allergy (Verified 08/28/20 12:45) Anaphylaxis clindamycin [Clindamycin] Allergy (Verified 08/28/20 12:45) hydrocodone [From Vicodin] Allergy (Verified 08/28/20 12:45) ibuprofen [From Motrin] Allergy (Verified 08/28/20 12:45) Anaphylaxis lidocaine [From Lidoderm] Allergy (Verified 08/28/20 12:45) Generalized rash tramadol HCl [From Ultram] Allergy (Verified 08/28/20 12:45) vancomycin [Vancomycin] Allergy (Verified 08/28/20 12:45) Shortness of Breath nitroglycerin [Nitroglycerin] Adverse Reaction (Intermediate, Verified 08/28/20 12:45) Joint pain Review of Systems Constitutional: PRESENT: anorexia, fatigue, weakness. ABSENT: chills, fever(s), headache(s) Nose, Mouth, and Throat: ABSENT: mouth pain, sore throat Cardiovascular: PRESENT: dyspnea on exertion, edema. ABSENT: chest pain Respiratory: PRESENT: cough, dyspnea. ABSENT: hemoptysis Gastrointestinal: ABSENT: abdominal pain, bloating, coffee ground emesis, diarrhea, melena, nausea, vomiting Genitourinary: ABSENT: dysuria, hematuria Musculoskeletal: PRESENT: other - Generalized myalgia. ABSENT: deformity, joint swelling Neurological: ABSENT: abnormal movements, abnormal speech, confusion, convulsions, focal weakness Hematologic/Lymphatic: ABSENT: easy bruising, lymphadenopathy Physical Exam Vital Signs: Temp Pulse Resp BP Pulse Ox 98.6 F 23 H 170/139 H 99 10/22/20 12:48 10/22/20 17:02 10/22/20 17:02 10/22/20 16:20 Intake & Output 10/21/20 10/22/20 10/23/20 06:59 06:59 06:59 Weight 125.8 kg General appearance: PRESENT: mild distress, obese Neck exam: ABSENT: meningismus, tenderness, thyromegaly, tracheal deviation Respiratory exam: PRESENT: clear to auscultation freddy, crackles, decreased breath sounds Cardiovascular exam: PRESENT: +S1, +S2 GI/Abdominal exam: PRESENT: normal bowel sounds, soft. ABSENT: organomegaly, tenderness Extremities exam: PRESENT: +1 edema Neurological exam: PRESENT: alert, awake, oriented to person, oriented to place, oriented to time Psychiatric exam: PRESENT: anxious Skin exam: ABSENT: erythema, mottled, rash Results Laboratory Results: 10/22/20 15:55 10/22/20 15:55 10/22/20 10/22/20 15:55 15:55 WBC 13.8 H RBC 3.58 L Hgb 10.0 L Hct 31.6 L MCV 88 MCH 27.9 MCHC 31.6 L RDW 16.7 H Plt Count 332 Seg Neutrophils % 81.9 H Sodium 131.3 L Potassium 7.1 H* Chloride 95 L Carbon Dioxide 22 Anion Gap 14 BUN 52 H Creatinine 11.03 H Est GFR ( Amer) 5 L Glucose 137 H Calcium 9.0 Total Bilirubin 0.4 AST 18 Alkaline Phosphatase 79 Total Protein 7.8 Albumin 4.0 10/22/20 15:55 Troponin I 2.650 Impressions: Chest X-Ray 10/22/20 13:42 IMPRESSION: Borderline cardiomegaly. Cannot exclude pulmonary edema. Cannot exclude an atypical infectious/ inflammatory process such as COVID-19. Assessment & Plan - Diagnosis (1) Acute hypoxemic respiratory failure Plan: Secondary to likely congestive heart failure with a differential diagnosis of possible and to be ruled out Covid interstitial pneumonia. See response to ultrafiltration on dialysis and will repeat a chest x-ray. Discussed with Dr. Mcgee at the ER about getting Covid testing done on this patient. (2) Pulmonary edema Qualifiers: Chronicity: acute Qualified Code(s): J81.0 - Acute pulmonary edema Plan: Most likely given her presentation. However needs to rule out interstitial pneumonia from Covid. Discussed with the ER physician. (3) ESRD on dialysis Plan: Patient currently being seen while undergoing dialysis. Patient currently in hypoxemic respiratory failure secondary to congestive heart failure with severe hyperkalemia 7+. Urgent dialysis has been instituted with a 1K bath for 2 hours followed by 2K bath for an hour. We will try to remove between 5-6 L of fluid as tolerated. Patient needs to be admitted and will repeat dialysis again tomorrow. Dialysis orders were reviewed with the treating dialysis nurse. (4) Hyperkalemia Plan: Should respond to urgent hemodialysis which has been instituted on appropriate low K bath. Follow-up with labs. (5) Obesity, morbid, BMI 40.0-49.9 Plan: Status quo/pickwickian. (6) Anemia in chronic kidney disease (CKD) Qualifiers: Plan: Monitor. (7) Bilateral pulmonary infiltrates on CXR Plan: Differential diagnosis includes congestive heart failure/interstitial pneumonia from Covid which needs to be ruled out. (8) Type 1 diabetes mellitus with unspecified complications Plan: Poorly controlled. Severe noncompliance in association.
[2020-10-22] MEDS ORDERED: PIPERACILLIN/TAZOBACTAM 3.375 GM VIAL IV ONE ×2 (18:17→21:00)
[2020-10-22] MEDS ORDERED: AZITHROMYCIN 250 MG TABLET PO ONE ×2 (18:18→21:00)
--- NOTE | 2020-10-22 18:20 | ER Document Report ---
ED General - General Chief Complaint: Breathing Difficulty Stated Complaint: DIFFICULTY BREATHING Time Seen by Provider: 10/22/20 13:39 Primary Care Provider: HILARY HERNANDEZ MD [Primary Care Provider] - Follow up as needed Mode of Arrival: Medic Information source: Patient TRAVEL OUTSIDE OF THE [place] IN LAST 30 DAYS: No - HPI Notes: Patient is brought from dialysis with severe shortness of breath. Patient was recently admitted to an outside facility with elevated troponins that was felt to be secondary to to demand ischemia. She was unable to be dialyzed before being discharged from the facility yesterday due to the access being clotted. She went to another facility today and had the clot removed and was then taken to the dialysis center. At the center she was unable to lie in a recliner due to severe hypoxia. Her O2 saturations were noted to be 85% and she was sent to the emergency department. She complains of recent cough and body aches. Body aches have been severe and constant. Worse with movement and better with rest. They do radiate throughout her body. She states she had a recent Covid test but is unsure of the result. She has had some subjective fever and chills. - Related Data Allergies/Adverse Reactions: aspirin [Aspirin] Allergy (Verified 08/28/20 12:45) Anaphylaxis ciprofloxacin [From Cipro] Allergy (Verified 08/28/20 12:45) Anaphylaxis clindamycin [Clindamycin] Allergy (Verified 08/28/20 12:45) hydrocodone [From Vicodin] Allergy (Verified 08/28/20 12:45) ibuprofen [From Motrin] Allergy (Verified 08/28/20 12:45) Anaphylaxis lidocaine [From Lidoderm] Allergy (Verified 08/28/20 12:45) Generalized rash tramadol HCl [From Ultram] Allergy (Verified 08/28/20 12:45) vancomycin [Vancomycin] Allergy (Verified 08/28/20 12:45) Shortness of Breath nitroglycerin [Nitroglycerin] Adverse Reaction (Intermediate, Verified 08/28/20 12:45) Joint pain Past Medical History - General Information source: Patient - Social History Smoking Status: Former Smoker Frequency of alcohol use: None Drug Abuse: None Family History: Reviewed & Not Pertinent, Hypertension - Past Medical History Cardiac Medical History: Reports: Hx Congestive Heart Failure, Hx Coronary Artery Disease, Hx Heart Attack, Hx Hypertension, Hx Heart Murmur Pulmonary Medical History: Reports: Hx Asthma, Hx Pneumonia Neurological Medical History: Reports: Hx Migraine, Hx Seizures - only r/t low c alcium. Denies: Hx Parkinson's Disease Endocrine Medical History: Reports: Hx Diabetes Mellitus Type 1, Hx Diabetes Mellitus Type 2 Renal/ Medical History: Reports: Hx End Stage Renal Disease - On hemodialysis M-W-F, Hx Hemodialysis - MWF, Hx Ovarian Cysts. Denies: Hx Peritoneal Dialysis Malignancy Medical History: GI Medical History: Reports: Hx Gastritis Musculoskeletal Medical History: Skin Medical History: Reports Hx Psoriasis Psychiatric Medical History: Reports: Hx Depression Traumatic Medical History: Infectious Medical History: Past Surgical History: Reports: Hx Appendectomy, Hx Cholecystectomy, Hx Vascular Surgery - Lt AV Fistula and graft; Rt AV fistula - Immunizations Immunizations up to date: Yes Hx Diphtheria, Pertussis, Tetanus Vaccination: Yes Hx Pneumococcal Vaccination: 08/22/11 Review of Systems - Review of Systems Constitutional: Chills, Fever, Malaise, Weakness Cardiovascular: Chest pain. denies: Palpitations Respiratory: Cough, Short of breath -: Yes All other systems reviewed and negative Physical Exam - Vital signs Vitals: Temp 98.6 F 10/22/20 12:48 Interpretation: Tachycardic, Hypoxic - General General appearance: Alert, Anxious In distress: Moderate - HEENT Head: Normocephalic, Atraumatic Eyes: Normal Pupils: PERRL - Respiratory Respiratory status: Respiratory distress - mod Chest status: Nontender Breath sounds: Decreased air movement, Rales Chest palpation: Normal - Cardiovascular Rhythm: Tachycardia Heart sounds: Normal auscultation Murmur: No - Abdominal Inspection: Normal Distension: No distension Bowel sounds: Normal Tenderness: Nontender Organomegaly: No organomegaly - Back Back: Normal, Nontender - Extremities General upper extremity: Normal inspection, Nontender, Normal color, Normal ROM, Normal temperature General lower extremity: Nontender, Edema - 3+ bilat, Normal color, Normal temperature. No: Lina's sign - Neurological Neuro grossly intact: Yes Cognition: Normal Orientation: AAOx4 Hell[place] Coma Scale Eye Opening: Spontaneous [place] Coma Scale Verbal: Oriented [place] Coma Scale Motor: Obeys Commands [place] Coma Scale Total: 15 Speech: Normal Motor strength normal: LUE, RUE, LLE, RLE Sensory: Normal - Psychological Associated symptoms: Normal affect, Normal mood - Skin Skin Temperature: Warm Skin Moisture: Dry Skin Color: Normal Course - Re-evaluation Re-evalutation: 10/22/20 18:24 Patient is well-known to the emergency department. She is a noncompliant dialysis patient. She was brought in today secondary to severe hypoxia. She was found to have a room air saturation of 85%. She was immediately placed on BiPAP. She was then arranged and has begun dialysis here in the emergency department. Her x-ray is equivocal. She has some symptoms at work be consi stent with possible Covid therefore a Covid test will also be administered. She was recently diagnosed with a right lower lobe pneumonia but is unable to tell me what antibiotic she is on. Therefore I gave the patient a dose of antibiotics here in the emergency department. Her potassium was high however this will be rechecked after dialysis. EKG showed no significant acute changes. - Vital Signs Vital signs: Temp Pulse Resp BP Pulse Ox 98.6 F 26 H 163/107 H 58 L 10/22/20 12:48 10/22/20 17:44 10/22/20 17:44 10/22/20 17:33 - Laboratory Result Diagrams: 10/22/20 15:55 10/22/20 15:55 Laboratory results interpreted by me: 10/22/20 10/22/20 15:55 15:55 WBC 13.8 H RBC 3.58 L Hgb 10.0 L Hct 31.6 L MCHC 31.6 L RDW 16.7 H Lymph % (Auto) 8.4 L Absolute Neuts (auto) 11.3 H Absolute Eos (auto) 0.7 H Seg Neutrophils % 81.9 H Sodium 131.3 L Potassium 7.1 H* Chloride 95 L BUN 52 H Creatinine 11.03 H Est GFR ( Amer) 5 L Est GFR (MDRD) Non-Af 4 L Glucose 137 H - Diagnostic Test Radiology reviewed: Image reviewed, Reports reviewed - EKG Interpretation by Me EKG shows normal: Sinus rhythm Rate: Normal - 90 Rhythm: NSR Heart block present: 1st Degree Critical Care Note - Critical Care Note Total time excluding time spent on procedures (mins): 50 Comments: Approximately 50 minutes of critical care time were spent on this hypoxic dialysis patient in respiratory distress. Discharge - Discharge Clinical Impression: Person under investigation for COVID-19, Obesity, morbid, BMI 40.0-49.9, ESRD (end stage renal disease) on dialysis, Hyperkalemia, Acute hypoxemic respiratory failure Pulmonary edema Qualifiers: Chronicity: acute Qualified Code(s): J81.0 - Acute pulmonary edema Volume overload Qualifiers: Hypervolemia type: unspecified Qualified Code(s): E87.70 - Fluid overload, unspecified Condition: Serious Disposition: ADMITTED INPATIENT Admitting Provider: Areli Unit Admitted: [facility] Referrals: HILARY HERNANDEZ MD [Primary Care Provider] - Follow up as needed
--- NOTE | 2020-10-22 18:59 | PDOC H&P ---
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 Past Medical History Cardiac Medical History: Reports: Congestive Heart Failure, Coronary Artery Disease, Myocardial Infarction, Hypertension, Heart Murmur Pulmonary Medical History: Reports: Asthma, Pneumonia Neurological Medical History: Reports: Migraine, Seizures - only r/t low calcium Endocrine Medical History: Reports: Diabetes Mellitus Type 1 Renal/ Medical History: Reports: End Stage Renal Disease - On hemodialysis M-W-F Malignancy Medical History: GI Medical History: Musculoskeltal Medical History: Skin Medical History: Reports: Psoriasis Psychiatric Medical History: Reports: Depression Hematology: Reports: Anemia Infectious Medical History: Past Surgical History Past Surgical History: Reports: Appendectomy, Cholecystectomy, Vascular Surgery - Lt AV Fistula and graft; Rt AV fistula Social History Smoking Status: Never Smoker Frequency of Alcohol Use: Rare Hx Recreational Drug Use: No Drugs: None Hx Prescription Drug Abuse: No Family History Family History: Reviewed & Not Pertinent, Hypertension Parental Family History Reviewed: Yes Children Family History Reviewed: Yes Sibling(s) Family History Reviewed.: Yes Medication/Allergy Home Medications: RX: Calcium Acetate [Phoslo 667 mg Capsule] 1,334 mg PO .[id number] 09/25/19 RX: Calcium Acetate [Phoslo 667 mg Capsule] 2,001 mg PO Q8 09/25/19 RX: Oxycodone HCl/Acetaminophen [Percocet 7.5-325 mg Tablet] 1 each PO QIDP PRN 09/25/19 RX: Metolazone 10 mg PO BID 10/25/19 RX: Clopidogrel Bisulfate [Plavix 75 mg Tablet] 75 mg PO DAILY 11/29/19 RX: Linaclotide [Linzess] 290 mcg PO DAILY 07/29/20 RX: Nifedipine [Nifedipine ER] 60 mg PO Q12 08/05/20 RX: Ranolazine [Ranexa 500 mg Tab.sr] 500 mg PO Q12 #60 tab.sr.12h 08/08/20 Carvedilol [Coreg 6.25 mg Tablet] 6.25 mg PO Q12 10/22/20 Clonidine HCl [Catapres] 0.1 mg PO TID 10/22/20 Furosemide [Lasix 80 mg Tablet] 80 mg PO TIDP PRN 10/22/20 Hydralazine HCl [Apresoline 50 mg Tablet] 50 mg PO Q8 10/22/20 Pantoprazole Sodium [Protonix [address] Tablet] 40 mg PO Q12 10/22/20 Promethazine HCl [Phenergan 25 mg Tablet] 25 mg PO Q6HP PRN 10/22/20 Tazarotene [Tazorac] 1 applic TP QHS 10/22/20 Allergies/Adverse Reactions: aspirin [Aspirin] Allergy (Verified 08/28/20 12:45) Anaphylaxis ciprofloxacin [From Cipro] Allergy (Verified 08/28/20 12:45) Anaphylaxis clindamycin [Clindamycin] Allergy (Verified 08/28/20 12:45) hydrocodone [From Vicodin] Allergy (Verified 08/28/20 12:45) ibuprofen [From Motrin] Allergy (Verified 08/28/20 12:45) Anaphylaxis lidocaine [From Lidoderm] Allergy (Verified 08/28/20 12:45) Generalized rash tramadol HCl [From Ultram] Allergy (Verified 08/28/20 12:45) vancomycin [Vancomycin] Allergy (Verified 08/28/20 12:45) Shortness of Breath nitroglycerin [Nitroglycerin] Adverse Reaction (Intermediate, Verified 08/28/20 12:45) Joint pain Review of Systems Constitutional: ABSENT: chills, fever(s), headache(s), weight gain, weight loss Eyes: ABSENT: visual disturbances Ears: ABSENT: hearing changes Cardiovascular: PRESENT: dyspnea on exertion, orthropnea Respiratory: PRESENT: dyspnea Gastrointestinal: ABSENT: abdominal pain, constipation, diarrhea, hematemesis, hematochezia, nausea, vomiting Genitourinary: ABSENT: dysuria, hematuria Musculoskeletal: ABSENT: joint swelling Integumentary: ABSENT: rash, wounds Neurological: ABSENT: abnormal gait, abnormal speech, confusion, dizziness, focal weakness, syncope Psychiatric: ABSENT: anxiety, depression, homidical ideation, suicidal ideation Endocrine: ABSENT: cold intolerance, heat intolerance, menstrual abnormalities, polydipsia, polyuria Hematologic/Lymphatic: ABSENT: easy bleeding, easy bruising, lymphadenopathy Physical Exam Vital Signs: Temp Pulse Resp BP Pulse Ox 98.6 F 26 H 163/107 H 58 L 10/22/20 12:48 10/22/20 17:44 10/22/20 17:44 10/22/20 17:33 Intake & Output 10/21/20 10/22/20 10/23/20 06:59 06:59 06:59 Weight 125.8 kg General appearance: PRESENT: obese Head exam: PRESENT: atraumatic, normocephalic Eye exam: PRESENT: PERRLA Ear exam: PRESENT: normal external ear exam Neck exam: PRESENT: full ROM Respiratory exam: PRESENT: rhonchi Cardiovascular exam: PRESENT: RRR, +S1, +S2 Vascular exam: PRESENT: normal capillary refill GI/Abdominal exam: PRESENT: normal bowel sounds, soft Rectal exam: PRESENT: deferred Neurological exam: PRESENT: alert, CN II-XII grossly intact Psychiatric exam: PRESENT: appropriate affect, normal mood Skin exam: PRESENT: dry, intact, warm. ABSENT: cyanosis, rash Results Laboratory Results: 10/22/20 15:55 10/22/20 15:55 10/22/20 10/22/20 15:55 15:55 WBC 13.8 H RBC 3.58 L Hgb 10.0 L Hct 31.6 L MCV 88 MCH 27.9 MCHC 31.6 L RDW 16.7 H Plt Count 332 Seg Neutrophils % 81.9 H Sodium 131.3 L Potassium 7.1 H* Chloride 95 L Carbon Dioxide 22 Anion Gap 14 BUN 52 H Creatinine 11.03 H Est GFR ( Amer) 5 L Glucose 137 H Calcium 9.0 Total Bilirubin 0.4 AST 18 Alkaline Phosphatase 79 Total Protein 7.8 Albumin 4.0 10/22/20 15:55 Troponin I 2.650 Impressions: Chest X-Ray 10/22/20 13:42 IMPRESSION: Borderline cardiomegaly. Cannot exclude pulmonary edema. Cannot exclude an atypical infectious/ inflammatory process such as COVID-19. Assessment & Plan - Diagnosis (1) Acute hypoxemic respiratory failure Is this a current diagnosis for this admission?: Yes Plan: This is most likely from acute pulmonary edema typically after dialysis she gets better (2) Obesity, morbid, BMI 40.0-49.9 Is this a current diagnosis for this admission?: Yes (3) Pulmonary edema Qualifiers: Chronicity: acute Qualified Code(s): J81.0 - Acute pulmonary edema Is this a current diagnosis for this admission?: Yes (4) Type 1 diabetes mellitus with complication Is this a current diagnosis for this admission?: Yes - Time Time Spent: Greater than 70 Minutes Medications reviewed and adjusted accordingly: Yes Anticipated Discharge Disposition: Home, Self Care Anticipated Discharge Timeframe: within 72 hours
[2020-10-22] MEDS ORDERED: ACETAMINOPHEN PO PRN (22:31)
[2020-10-22] MEDS ORDERED: PROMETHAZINE HCL 25 MG TABLET PO PRN (22:31)
[2020-10-22] MEDS ORDERED: [UNRECOGNIZED DRUG - OTHER] PO PRN (22:31)
[2020-10-22] MEDS ORDERED: OXYCODONE HCL PO PRN (22:31)
[2020-10-22] MEDS ORDERED: FUROSEMIDE 80 MG TABLET PO SCH (22:45)
[2020-10-22] MEDS ORDERED: PANTOPRAZOLE SODIUM 40 MG TABLET.DR PO SCH (22:45)
[2020-10-22] MEDS ORDERED: CALCIUM ACETATE 667 MG CAPSULE PO SCH (22:45)
[2020-10-22] MEDS ORDERED: LINACLOTIDE 290 MCG PO SCH (22:45)
[2020-10-22] MEDS ORDERED: TAZAROTENE TP SCH (22:45)
[2020-10-22] MEDS: CLOPIDOGREL BISULFATE 75 MG TABLET PO SCH (23:07)
[2020-10-22] MEDS: CLONIDINE HCL 0.1 MG TABLET PO SCH (23:08)
[2020-10-22] MEDS: CARVEDILOL 6.25 MG TABLET PO SCH (23:09)
[2020-10-22] MEDS: HYDRALAZINE HCL 50 MG TABLET PO SCH (23:25)
[2020-10-22] MEDS: RANOLAZINE 500 MG TAB.SR.12H PO SCH (23:26)
[2020-10-23] MEDS: PANTOPRAZOLE SODIUM 40 MG TABLET.DR PO SCH ×2 (05:32→16:54)
[2020-10-23] MEDS: CALCIUM ACETATE 667 MG CAPSULE PO SCH ×4 (05:32→22:02)
[2020-10-23] MEDS: HYDRALAZINE HCL 50 MG TABLET PO SCH ×4 (05:32→22:10)
[2020-10-23 06:56] LABS: HEMATOCRIT 26.6 % (36.0-47.0); HEMOGLOBIN 8.6 g/dL (12.0-15.5); MEAN CORPUSCULAR HEMOGLOBIN 28.6 pg (27.0-33.4); MEAN CORPUSCULAR HGB CONC 32.5 g/dL (32.0-36.0); MEAN CORPUSCULAR VOLUME 88 fl (80-97); PLATELET COUNT 291 10^3/uL (150-450); RED BLOOD COUNT 3.02 10^6/uL (3.72-5.28); RED CELL DISTRIBUTION WIDTH 16.8 % (11.5-14.0); WHITE BLOOD COUNT 10.2 10^3/uL (4.0-10.5)
[2020-10-23 07:04] LABS: ANION GAP 8 (5-19); BLOOD UREA NITROGEN 35 mg/dL (7-20); CALCIUM 8.6 mg/dL (8.4-10.2); CARBON DIOXIDE 31 mmol/L (22-30); CHLORIDE 96 mmol/L (98-107); GLUCOSE 109 mg/dL (75-110)
[2020-10-23 07:23] LABS: POTASSIUM 5.3 mmol/L (3.6-5.0)
[2020-10-23] MEDS ORDERED: EPOETIN ALFA-EPBX 20,000 UNIT in SYRINGE, DISPOSABLE, 1 EACH IV PRN (07:32)
--- NOTE | 2020-10-23 08:34 | RADIOLOGY REPORT (SQ) ---
EXAM DESCRIPTION: CHEST SINGLE VIEW IMAGES COMPLETED DATE/TIME: 10/23/2020 8:15 am REASON FOR STUDY: dyspnea COMPARISON: AP view of the chest from 10/22/2020. EXAM PARAMETERS: NUMBER OF VIEWS: One view. TECHNIQUE: An AP view of the chest was obtained. RADIATION DOSE: NA LIMITATIONS: None. FINDINGS: LUNGS AND PLEURA: Decreased diffuse bilateral alveolar opacities. There is no pneumothora x. MEDIASTINUM AND HILAR STRUCTURES: No mediastinal or hilar contour abnormality. HEART AND VASCULAR STRUCTURES: Stable enlarged cardiac silhouette. BONES: No acute findings. HARDWARE: Endovascular stents within the right subclavian and axillary veins. OTHER: No other finding. IMPRESSION: Decreased diffuse bilateral alveolar opacities. TECHNICAL DOCUMENTATION: JOB ID: [id number] 2010 [employer]- All Rights Reserved Reading location - IP/workstation name: [email or web address]
--- NOTE | 2020-10-23 09:07 | EKG REPORT ---
SEVERITY:- ABNORMAL ECG - SINUS RHYTHM FIRST DEGREE AV BLOCK PROBABLE LEFT ATRIAL ABNORMALITY NONSPECIFIC INTRAVENTRICULAR CONDUCTION DELAY MINIMAL ST DEPRESSION, LATERAL LEADS : Confirmed by: Isacc Chen MD 23-Oct-2020 09:06:46
[2020-10-23] MEDS: OXYCODONE-ACETAMINOPHEN 5-325 MG TABLET PO PRN (12:10)
[2020-10-23] MEDS: OXYCODONE HCL IR 5 MG TABLET PO PRN (12:11)
--- NOTE | 2020-10-23 12:42 | PDOC PROGRESS REPORT ---
Subjective Date:: 10/23/20 Reason For Visit: Patient seen today on dialysis. Undergoing dialysis without any issues. She looks much better than when I saw her yesterday but still on 4 L nonrebreather. Denies history of chest pains. No history of fever or chills. Labs and medications were reviewed. Her Covid serologies were negative. Chest x-ray was reviewed which still shows persistent bilateral fluffy shadows though improved from yesterday. Dialysis orders were reviewed with treating dialysis nurse. Physical Exam Vital Signs: Temp Pulse Resp BP Pulse Ox 97.8 F 79 16 133/54 H 100 10/23/20 10:00 10/23/20 07:37 10/23/20 07:37 10/23/20 07:37 10/23/20 07:37 Intake & Output 10/22/20 10/23/20 10/24/20 06:59 06:59 06:59 Output Total 4500 Balance -4500 Weight 119.8 kg General appearance: PRESENT: no acute distress Respiratory exam: PRESENT: clear to auscultation freddy, decreased breath sounds. ABSENT: crackles Cardiovascular exam: PRESENT: +S1, +S2 GI/Abdominal exam: PRESENT: normal bowel sounds, soft. ABSENT: organomegaly, tenderness Extremities exam: PRESENT: pedal edema Neurological exam: PRESENT: alert, awake, oriented to person, oriented to place Psychiatric exam: PRESENT: appropriate affect Results Laboratory Results: 10/23/20 06:20 10/23/20 06:20 10/22/20 10/22/20 10/23/20 15:55 15:55 06:20 WBC 13.8 H 10.2 RBC 3.58 L 3.02 L Hgb 10.0 L 8.6 L Hct 31.6 L 26.6 L MCV 88 88 MCH 27.9 28.6 MCHC 31.6 L 32.5 RDW 16.7 H 16.8 H Plt Count 332 291 Seg Neutrophils % 81.9 H Sodium 131.3 L Potassium 7.1 H* Chloride 95 L Carbon Dioxide 22 Anion Gap 14 BUN 52 H Creatinine 11.03 H Est GFR ( Amer) 5 L Glucose 137 H Calcium 9.0 Total Bilirubin 0.4 AST 18 Alkaline Phosphatase 79 Total Protein 7.8 Albumin 4.0 10/23/20 06:20 WBC RBC Hgb Hct MCV MCH MCHC RDW Plt Count Seg Neutrophils % Sodium 135.4 L Potassium 5.3 H D Chloride 96 L Carbon Dioxide 31 H Anion Gap 8 BUN 35 H Creatinine 8.31 H Est GFR ( Amer) 7 L Glucose 109 Calcium 8.6 Total Bilirubin AST Alkaline Phosphatase Total Protein Albumin 10/22/20 15:55 Troponin I 2.650 Impressions: Chest X-Ray 10/23/20 06:00 IMPRESSION: Decreased diffuse bilateral alveolar opacities. Assessment & Plan - Diagnosis (1) Acute hypoxemic respiratory failure Plan: Secondary to likely congestive heart failure with a differential diagnosis of possible and to be ruled out Covid interstitial pneumonia. Her Covid serology is negative. Chest x-ray shows improvement but still persisting bilateral interstitial shadows. See how she responds to dialysis again today and removal of approximately 4 L of fluid as tolerated. (2) Pulmonary edema Qualifiers: Chronicity: acute Qualified Code(s): J81.0 - Acute pulmonary edema Plan: Most likely given her presentation. However needs to rule out interstitial pneumonia from Covid. (3) ESRD on dialysis Plan: Patient currently being seen while undergoing dialysis which is supervised. Patient currently in hypoxemic respiratory failure secondary to congestive heart failure with improved hyperkalemia. Plan to remove approximately 4 L of fluid as tolerated. Advised compliance with diet medications and dialysis treatments in the future as unfortunately is continuing and recurring theme for this patient. Dialysis orders were reviewed with the dialysis nurse. (4) Hyperkalemia Plan: Potassium was 5.3/7.1. Continue on the current 2K dialysis bath. Monitor. Advised proper dietary modifications. (5) Obesity, morbid, BMI 40.0-49.9 Plan: Status quo/pickwickian. (6) Anemia in chronic kidney disease (CKD) Qualifiers: Plan: Patient on erythropoietin.Denies any history of GI bleeds. Monitor. (7) Bilateral pulmonary infiltrates on CXR Plan: Differential diagnosis includes congestive heart failure/interstitial pneumonia from Covid. Negative Covid test yesterday. (8) Type 1 diabetes mellitus with unspecified complications Plan: Poorly controlled. Severe noncompliance in association.
[2020-10-23] MEDS: CLONIDINE HCL 0.1 MG TABLET PO SCH ×3 (13:04→17:00)
[2020-10-23] MEDS: NIFEDIPINE 30 MG TAB.ER.24 PO SCH ×2 (14:13→21:55)
[2020-10-23] MEDS: METOLAZONE 5 MG TABLET PO SCH ×2 (14:13→17:00)
[2020-10-23] MEDS: RANOLAZINE 500 MG TAB.SR.12H PO SCH ×2 (14:13→21:55)
[2020-10-23] MEDS: CLOPIDOGREL BISULFATE 75 MG TABLET PO SCH (14:15)
[2020-10-23] MEDS: CARVEDILOL 6.25 MG TABLET PO SCH ×2 (14:15→21:56)
[2020-10-23] MEDS ORDERED: DEXTROSE 40% GEL 15 GM TUBE X 2 PO PRN (16:30)
[2020-10-23] MEDS ORDERED: DEXTROSE 50%-WATER SYRINGE 25 GM/50 ML DOSE IV PRN (16:30)
[2020-10-23] MEDS ORDERED: GLUCAGON,HUMAN RECOMB 1 MG INJ IM PRN (16:30)
[2020-10-23] MEDS ORDERED: DEXTROSE 50%-WATER SYRINGE 12.5 GM/25 ML DOSE IV PRN (16:30)
[2020-10-23] MEDS ORDERED: DEXTROSE 40% GEL 15 GM TUBE PO PRN (16:30)
[2020-10-23] MEDS: INSULIN LISPRO 100 UNIT/ML 3 ML VIAL SUBCUT SCH ×2 (16:54→21:56)
--- NOTE | 2020-10-23 21:10 | PDOC PROGRESS REPORT ---
Subjective Date:: 10/23/20 Subjective:: Patient is alert she looks better today she was dialyzed today no new complaints Reason For Visit: ACUTE HYPOXEMIC RESPIRATORY FAILURE,PULMONARY Physical Exam Vital Signs: Temp Pulse Resp BP Pulse Ox 98.6 F 85 16 144/68 H 100 10/23/20 16:47 10/23/20 16:47 10/23/20 16:47 10/23/20 16:47 10/23/20 16:47 Intake & Output 10/22/20 10/23/20 10/24/20 06:59 06:59 06:59 Intake Total 1391 Output Total 4500 4200 Balance -4500 -2809 Weight 119.8 kg General appearance: PRESENT: no acute distress Eye exam: PRESENT: PERRLA Respiratory exam: PRESENT: clear to auscultation freddy Cardiovascular exam: PRESENT: +S1, +S2 GI/Abdominal exam: PRESENT: soft Neurological exam: PRESENT: alert Results Laboratory Results: 10/23/20 06:20 10/23/20 06:20 10/23/20 10/23/20 06:20 06:20 WBC 10.2 RBC 3.02 L Hgb 8.6 L Hct 26.6 L MCV 88 MCH 28.6 MCHC 32.5 RDW 16.8 H Plt Count 291 Sodium 135.4 L Potassium 5.3 H D Chloride 96 L Carbon Dioxide 31 H Anion Gap 8 BUN 35 H Creatinine 8.31 H Est GFR ( Amer) 7 L Glucose 109 Calcium 8.6 10/22/20 15:55 Troponin I 2.650 Impressions: Chest X-Ray 10/23/20 06:00 IMPRESSION: Decreased diffuse bilateral alveolar opacities. Assessment & Plan - Diagnosis (1) Acute hypoxemic respiratory failure Is this a current diagnosis for this admission?: Yes (2) Obesity, morbid, BMI 40.0-49.9 Is this a current diagnosis for this admission?: Yes (3) Pulmonary edema Qualifiers: Chronicity: acute Qualified Code(s): J81.0 - Acute pulmonary edema Is this a current diagnosis for this admission?: Yes (4) Type 1 diabetes mellitus with complication Is this a current diagnosis for this admission?: Yes - Time Time Spent with patient: 15-24 minutes Level of Care: IMCU Medications reviewed and adjusted accordingly: Yes Anticipated discharge: Home
[2020-10-23] MEDS ORDERED: INSULIN LISPRO 100 UNIT/ML 3 ML VIAL SUBCUT SCH (22:00)
[2020-10-24] MEDS: HYDRALAZINE HCL 50 MG TABLET PO SCH ×3 (05:51→22:47)
[2020-10-24] MEDS: PANTOPRAZOLE SODIUM 40 MG TABLET.DR PO SCH ×2 (05:51→16:53)
[2020-10-24] MEDS: INSULIN LISPRO 100 UNIT/ML 3 ML VIAL SUBCUT SCH ×4 (08:05→22:46)
[2020-10-24] MEDS: CALCIUM ACETATE 667 MG CAPSULE PO SCH ×3 (08:06→22:47)
[2020-10-24] MEDS: METOLAZONE 5 MG TABLET PO SCH ×2 (10:33→17:01)
[2020-10-24] MEDS: NIFEDIPINE 30 MG TAB.ER.24 PO SCH ×2 (10:33→22:45)
[2020-10-24] MEDS: CLONIDINE HCL 0.1 MG TABLET PO SCH ×3 (10:33→17:01)
[2020-10-24] MEDS: RANOLAZINE 500 MG TAB.SR.12H PO SCH ×2 (10:33→22:45)
[2020-10-24] MEDS: CARVEDILOL 6.25 MG TABLET PO SCH ×2 (10:33→22:46)
[2020-10-24] MEDS: CLOPIDOGREL BISULFATE 75 MG TABLET PO SCH (10:33)
[2020-10-24] MEDS ORDERED: EPOETIN ALFA-EPBX 20,000 UNIT in SYRINGE, DISPOSABLE, 1 EACH IV PRN (17:33)
--- NOTE | 2020-10-24 21:35 | PDOC PROGRESS REPORT ---
Subjective Date:: 10/24/20 Subjective:: Patient with no new complaints Reason For Visit: ACUTE HYPOXEMIC RESPIRATORY FAILURE,PULMONARY Physical Exam Vital Signs: Temp Pulse Resp BP Pulse Ox 98.0 F 74 19 129/64 H 100 10/24/20 19:17 10/24/20 19:17 10/24/20 19:17 10/24/20 19:17 10/24/20 19:17 Intake & Output 10/23/20 10/24/20 10/25/20 06:59 06:59 06:59 Intake Total 1601 Output Total 4500 4200 240 Balance -4500 -2599 -240 Weight 119.8 kg 117 kg General appearance: PRESENT: no acute distress Eye exam: PRESENT: PERRLA Respiratory exam: PRESENT: clear to auscultation freddy Cardiovascular exam: PRESENT: +S1, +S2 GI/Abdominal exam: PRESENT: soft Neurological exam: PRESENT: alert Results Laboratory Results: 10/23/20 06:20 10/23/20 06:20 10/22/20 15:55 Troponin I 2.650 Impressions: Chest X-Ray 10/23/20 06:00 IMPRESSION: Decreased diffuse bilateral alveolar opacities. Assessment & Plan - Diagnosis (1) Acute hypoxemic respiratory failure Is this a current diagnosis for this admission?: Yes (2) Obesity, morbid, BMI 40.0-49.9 Is this a current diagnosis for this admission?: Yes (3) Pulmonary edema Qualifiers: Chronicity: acute Qualified Code(s): J81.0 - Acute pulmonary edema Is this a current diagnosis for this admission?: Yes (4) Type 1 diabetes mellitus with complication Is this a current diagnosis for this admission?: Yes - Time Time Spent with patient: Less than 15 minutes Level of Care: IMCU Anticipated discharge: Home Anticipated DC Timeframe: Other
[2020-10-24] MEDS: OXYCODONE HCL IR 5 MG TABLET PO PRN (22:51)
[2020-10-24] MEDS: OXYCODONE-ACETAMINOPHEN 5-325 MG TABLET PO PRN (22:51)
[2020-10-25 06:37] LABS: HEMATOCRIT 29.5 % (36.0-47.0); HEMOGLOBIN 9.6 g/dL (12.0-15.5); MEAN CORPUSCULAR HEMOGLOBIN 28.5 pg (27.0-33.4); MEAN CORPUSCULAR HGB CONC 32.5 g/dL (32.0-36.0); MEAN CORPUSCULAR VOLUME 88 fl (80-97); PLATELET COUNT 313 10^3/uL (150-450); RED BLOOD COUNT 3.36 10^6/uL (3.72-5.28); RED CELL DISTRIBUTION WIDTH 15.9 % (11.5-14.0)
[2020-10-25] MEDS: PANTOPRAZOLE SODIUM 40 MG TABLET.DR PO SCH ×2 (06:42→17:29)
[2020-10-25] MEDS: CALCIUM ACETATE 667 MG CAPSULE PO SCH ×2 (06:42→13:46)
[2020-10-25] MEDS: HYDRALAZINE HCL 50 MG TABLET PO SCH ×2 (06:45→13:46)
[2020-10-25 07:01] LABS: ANION GAP 11 (5-19); BLOOD UREA NITROGEN 38 mg/dL (7-20); CALCIUM 8.8 mg/dL (8.4-10.2); CARBON DIOXIDE 31 mmol/L (22-30); CHLORIDE 90 mmol/L (98-107); GLUCOSE 232 mg/dL (75-110); POTASSIUM 4.6 mmol/L (3.6-5.0)
[2020-10-25] MEDS: INSULIN LISPRO 100 UNIT/ML 3 ML VIAL SUBCUT SCH ×3 (08:07→17:29)
[2020-10-25] MEDS ORDERED: EPOETIN ALFA-EPBX 10,000 UNIT/ML VIAL (RENAL) SUBCUT PRN (09:12)
[2020-10-25] MEDS ORDERED: EPOETIN ALFA EPBX IV PRN (09:25)
[2020-10-25] MEDS: CLONIDINE HCL 0.1 MG TABLET PO SCH ×3 (11:51→17:29)
[2020-10-25] MEDS: CLOPIDOGREL BISULFATE 75 MG TABLET PO SCH (11:52)
[2020-10-25] MEDS: RANOLAZINE 500 MG TAB.SR.12H PO SCH (11:52)
[2020-10-25] MEDS: NIFEDIPINE 30 MG TAB.ER.24 PO SCH (11:52)
[2020-10-25] MEDS: METOLAZONE 5 MG TABLET PO SCH ×2 (11:52→17:30)
[2020-10-25] MEDS: CARVEDILOL 6.25 MG TABLET PO SCH (11:52)
[2020-10-25 17:40] VITALS: BP 136/75
--- NOTE | 2020-10-25 19:12 | PDOC PROGRESS REPORT ---
Subjective Date:: 10/25/20 Subjective:: I am seeing the patient this morning during dialysis treatment. She was just given Phenergan and so she was a little bit drowsy and lethargic but she answers some questions. She states that she is nauseated but denies any shortness of breath. She looks comfortable receiving dialysis. Reason For Visit: ACUTE HYPOXEMIC RESPIRATORY FAILURE,PULMONARY Physical Exam Vital Signs: Temp Pulse Resp BP Pulse Ox 97.7 F 76 18 120/54 L 99 10/25/20 03:27 10/25/20 07:00 10/25/20 03:27 10/25/20 03:27 10/25/20 03:27 Intake & Output 10/24/20 10/25/20 10/26/20 06:59 06:59 06:59 Intake Total 1601 Output Total 4200 240 Balance -2599 -240 Weight 117 kg 116.5 kg Vitals during dialysis: Blood pressure of 120/55, heart rate of 78, blood flow rate of 450 mL/min and dialysate flow rate of 800 mL/min. Exam: General appearance: PRESENT: no acute distress, cooperative, well-developed, well-nourished Head exam: PRESENT: atraumatic, normocephalic Eye exam: PRESENT: conjunctiva pink, PERRLA. ABSENT: scleral icterus Neck exam: ABSENT: JVD Respiratory exam: PRESENT: Normal breath sounds. ABSENT: crackles, rales, rhonchi, unlabored, wheezes Cardiovascular exam: PRESENT: Regular rate rhythm -+S1, +S2. ABSENT: diastolic murmur, systolic murmur GI/Abdominal exam: PRESENT: normal bowel sounds, soft. ABSENT: guarding, mass, tenderness Extremities exam: ABSENT: No edema Neurological exam: PRESENT: Somnolent but arousable and answering questions appropriately, oriented to person, place and time. Skin exam: PRESENT: dry, warm, Cardiovascular exam: PRESENT: +S1, +S2 GI/Abdominal exam: PRESENT: normal bowel sounds, soft. ABSENT: organomegaly, tenderness Results Laboratory Results: 10/25/20 06:11 10/25/20 06:11 10/25/20 10/25/20 06:11 06:11 WBC 9.0 RBC 3.36 L Hgb 9.6 L Hct 29.5 L MCV 88 MCH 28.5 MCHC 32.5 RDW 15.9 H Plt Count 313 Sodium 132.1 L Potassium 4.6 Chloride 90 L Carbon Dioxide 31 H Anion Gap 11 BUN 38 H Creatinine 9.83 H Est GFR ( Amer) 5 L Glucose 232 H Calcium 8.8 10/22/20 15:55 Troponin I 2.650 Impressions: Chest X-Ray 10/23/20 06:00 IMPRESSION: Decreased diffuse bilateral alveolar opacities. Assessment & Plan - Diagnosis (1) End-stage renal disease on hemodialysis Is this a current diagnosis for this admission?: Yes Plan: We will do dialysis today for 3 hours, using the patient's AV fistula, with 2 potassium bath, blood flow rate of 450 mL per minute, dialysate flow rate of 800 mL per minute, ultrafiltration 2 to 3 L as tolerated, no heparin and Retacrit with 10,000 units during dialysis intravenously. Patient is currently being mo nitored throughout dialysis treatment. Ultrafiltration was adjusted accordingly depending on blood pressure. (2) Anemia in chronic kidney disease (CKD) Qualifiers: Is this a current diagnosis for this admission?: Yes Plan: Retacrit given during dialysis treatment today. (3) Diabetes mellitus type 1 Qualifiers: Diabetes mellitus complication status: with neurologic complications Diabetes mellitus complication detail: with polyneuropathy Qualified Code(s): E10.42 - Type 1 diabetes mellitus with diabetic polyneuropathy Is this a current diagnosis for this admission?: Yes (4) Hypertension Qualifiers: Is this a current diagnosis for this admission?: Yes Plan: Controlled. (5) Acute hypoxemic respiratory failure Is this a current diagnosis for this admission?: Yes Plan: Resolved. (6) Pulmonary edema Qualifiers: Chronicity: acute Qualified Code(s): J81.0 - Acute pulmonary edema Is this a current diagnosis for this admission?: Yes Plan: Resolved. - Time Time with patient: 15-25 minutes
--- NOTE | 2020-10-25 20:14 | PDOC DISCHARGE SUMMARY ---
Impression - Admit/DC Date/PCP Admission Date/Primary Care Provider: 10/22/20 18:35 HILARY HERNANDEZ MD Discharge Date: 10/25/20 - Discharge Diagnosis (1) Acute hypoxemic respiratory failure Is this a current diagnosis for this admission?: Yes (2) Pulmonary edema Is this a current diagnosis for this admission?: Yes (3) Obesity, morbid, BMI 40.0-49.9 Is this a current diagnosis for this admission?: Yes (4) Type 1 diabetes mellitus with complication Is this a current diagnosis for this admission?: Yes - Additional Information Discharge Diet: Cardiac, Diabetic, Other (Comments) Discharge Activity: Activity As Tolerated, Balance Activity w/Rest, Weigh Daily Referrals: HILARY HERNANDEZ MD [Primary Care Provider] - 11/05/20 10:30 am Home Medications: Calcium Acetate [Phoslo 667 mg Capsule] 1,334 mg PO .BIDWITHSNACKS 09/25/19 Calcium Acetate [Phoslo 667 mg Capsule] 2,001 mg PO Q8 09/25/19 Oxycodone HCl/Acetaminophen [Percocet 7.5-325 mg Tablet] 1 each PO QIDP PRN 09/25/19 Metolazone 10 mg PO BID 10/25/19 Clopidogrel Bisulfate [Plavix 75 mg Tablet] 75 mg PO DAILY 11/29/19 Linaclotide [Linzess] 290 mcg PO DAILY 07/29/20 Nifedipine [Nifedipine ER] 60 mg PO Q12 08/05/20 Ranolazine [Ranexa 500 mg Tab.sr] 500 mg PO Q12 #60 tab.sr.12h 08/08/20 Carvedilol [Coreg 6.25 mg Tablet] 6.25 mg PO Q12 10/22/20 Clonidine HCl [Catapres] 0.1 mg PO TID 10/22/20 Furosemide [Lasix 80 mg Tablet] 80 mg PO TIDP PRN 10/22/20 Hydralazine HCl [Apresoline 50 mg Tablet] 50 mg PO Q8 10/22/20 Pantoprazole Sodium [Protonix [address] Tablet] 40 mg PO Q12 10/22/20 Promethazine HCl [Phenergan 25 mg Tablet] 25 mg PO Q6HP PRN 10/22/20 Tazarotene [Tazorac] 1 applic TP [facility] 10/22/20 History of Present Illiness History of Present Illness: ERICH GOODMAN is a 35 year old female, She has a history of end-stage renal disease on hemodialysis, 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 Hospital Course Hospital Course: She was admitted for the management of acute pulmonary edema, she has a background of end-stage renal disease on dialysis. She required hemodialysis she was seen by nephrology, there is complete resolution of pulmonary edema,She was seen in consultation by nephrology.She has recurrent hospital admission for the management of acute pulmonary edema Physical Exam Vital Signs: Temp Pulse Resp BP Pulse Ox 98.1 F 78 19 136/75 H 99 10/25/20 17:37 10/25/20 17:37 10/25/20 17:37 10/25/20 17:37 10/25/20 17:37 Intake & Output 10/24/20 10/25/20 10/26/20 06:59 06:59 06:59 Intake Total 1601 411 Output Total 4200 240 1210 Balance -2780 -941 -5509 Weight 117 kg 116.5 kg 116.5 kg General appearance: PRESENT: no acute distress Eye exam: PRESENT: PERRLA Respiratory exam: PRESENT: clear to auscultation freddy Cardiovascular exam: PRESENT: +S1, +S2 GI/Abdominal exam: PRESENT: soft Neurological exam: PRESENT: alert, CN II-XII grossly intact Results Laboratory Results: WBC 9.0 10^3/uL (4.0-10.5) 10/25/20 06:11 RBC 3.36 10^6/uL (3.72-5.28) L 10/25/20 06:11 Hgb 9.6 g/dL (12.0-15.5) L 10/25/20 06:11 Hct 29.5 % (36.0-47.0) L 10/25/20 06:11 MCV 88 fl (80-97) 10/25/20 06:11 MCH 28.5 pg (27.0-33.4) 10/25/20 06:11 MCHC 32.5 g/dL (32.0-36.0) 10/25/20 06:11 RDW 15.9 % (11.5-14.0) H 10/25/20 06:11 Plt Count 313 10^3/uL (150-450) 10/25/20 06:11 Lymph % (Auto) 8.4 % (13-45) L 10/22/20 15:55 Morrow % (Auto) 4.2 % (3-13) 10/22/20 15:55 Eos % (Auto) 5.2 % (0-6) 10/22/20 15:55 Baso % (Auto) 0.3 % (0-2) 10/22/20 15:55 Absolute Neuts (auto) 11.3 10^3/uL (1.7-8.2) H 10/22/20 15:55 Absolute Lymphs (auto) 1.2 10^3/uL (0.5-4.7) 10/22/20 15:55 Absolute Monos (auto) 0.6 10^3/uL (0.1-1.4) 10/22/20 15:55 Absolute Eos (auto) 0.7 10^3/uL (0.0-0.6) H 10/22/20 15:55 Absolute Basos (auto) 0.0 10^3/uL (0.0-0.2) 10/22/20 15:55 Seg Neutrophils % 81.9 % (42-78) H 10/22/20 15:55 Sodium 132.1 mmol/L (137-145) L 10/25/20 06:11 Potassium 4.6 mmol/L (3.6-5.0) 10/25/20 06:11 Chloride 90 mmol/L (98-107) L 10/25/20 06:11 Carbon Dioxide 31 mmol/L (22-30) H 10/25/20 06:11 Anion Gap 11 (5-19) 10/25/20 06:11 BUN 38 mg/dL (7-20) H 10/25/20 06:11 Creatinine 9.83 mg/dL (0.52-1.25) H 10/25/20 06:11 Est GFR ( Amer) 5 (>60) L 10/25/20 06:11 Est GFR (MDRD) Non-Af 5 (>60) L 10/25/20 06:11 Glucose 232 mg/dL (75-110) H 10/25/20 06:11 POC Glucose 236 mg/dL (70-110) H 10/25/20 15:46 Calcium 8.8 mg/dL (8.4-10.2) 10/25/20 06:11 Total Bilirubin 0.4 mg/dL (0.2-1.3) 10/22/20 15:55 Direct Bilirubin 0.4 mg/dL (0.0-0.4) 10/22/20 15:55 Neonat Total Bilirubin Not Reportable 10/22/20 15:55 Neonat Direct Bilirubin Not Reportable 10/22/20 15:55 Neonat Indirect Bili Not Reportable 10/22/20 15:55 AST 18 U/L (14-36) 10/22/20 15:55 ALT 11 U/L (<35) 10/22/20 15:55 Alkaline Phosphatase 79 U/L (38-126) 10/22/20 15:55 Troponin I 2.650 ng/mL 10/22/20 15:55 Total Protein 7.8 g/dL (6.3-8.2) 10/22/20 15:55 Albumin 4.0 g/dL (3.5-5.0) 10/22/20 15:55 Influenza A (RT-PCR) NEGATIVE (NEGATIVE) 10/22/20 19:00 Influenza B (RT-PCR) NEGATIVE (NEGATIVE) 10/22/20 19:00 RSV (RT-PCR) NEGATIVE (NEGATIVE) 10/22/20 19:00 SARS-CoV-2 Rap RNA(RT-PCR) NEGATIVE (NEGATIVE) 10/22/20 19:00 10/22/20 15:55 Troponin I 2.650 Impressions: Chest X-Ray 10/22/20 13:42 IMPRESSION: Borderline cardiomegaly. Cannot exclude pulmonary edema. Cannot exclude an atypical infectious/ inflammatory process such as COVID-19. Chest X-Ray 10/23/20 06:00 IMPRESSION: Decreased diffuse bilateral alveolar opacities. Stroke Is this a Stroke Patient?: No Acute Heart Failure Is this a Heart Failure Patient?: No
== END 2020-10-25 17:55 | disposition home or self-care (01) | DRG 189 ==
LOC: ER 12:48 → EH 18:35 → 3S 10-23 01:04
PROVIDERS: ADMIT Internal Medicine; ATTEND Internal Medicine
PROC: 5A09357 Assistance with Respiratory Ventilation, Less than 24 Consecutive Hours, Continuous Positive Airway Pressure (ICD-10-PCS; principal; 2020-10-22)
PROC: 5A1D70Z Performance of Urinary Filtration, Intermittent, Less than 6 Hours Per Day (ICD-10-PCS; 2020-10-22)
PROC: 5A1D70Z Performance of Urinary Filtration, Intermittent, Less than 6 Hours Per Day (ICD-10-PCS; 2020-10-23)
PROC: 5A1D70Z Performance of Urinary Filtration, Intermittent, Less than 6 Hours Per Day (ICD-10-PCS; 2020-10-25)
DX: J96.01 Acute respiratory failure with hypoxia (principal); N18.6 End stage renal disease; N25.81 Secondary hyperparathyroidism of renal origin; Z68.41 Body mass index [BMI] 40.0-44.9, adult; I13.2 Hypertensive heart and chronic kidney disease with heart failure and with stage 5 chronic kidney disease, or end stage renal disease; I50.32 Chronic diastolic (congestive) heart failure; I25.10 Atherosclerotic heart disease of native coronary artery without angina pectoris; I25.2 Old myocardial infarction; E66.01 Morbid (severe) obesity due to excess calories; E10.22 Type 1 diabetes mellitus with diabetic chronic kidney disease; E10.65 Type 1 diabetes mellitus with hyperglycemia; I50.9 Heart failure, unspecified; Z99.2 Dependence on renal dialysis; E10.40 Type 1 diabetes mellitus with diabetic neuropathy, unspecified; E10.319 Type 1 diabetes mellitus with unspecified diabetic retinopathy without macular edema; E87.5 Hyperkalemia; D63.1 Anemia in chronic kidney disease; Z88.1 Allergy status to other antibiotic agents; Z88.5 Allergy status to narcotic agent; Z88.6 Allergy status to analgesic agent; Z87.891 Personal history of nicotine dependence; Z91.15 Patient's noncompliance with renal dialysis; Z79.899 Other long term (current) drug therapy; Z79.02 Long term (current) use of antithrombotics/antiplatelets; Z79.4 Long term (current) use of insulin; Z79.891 Long term (current) use of opiate analgesic; Z91.14 Patient's other noncompliance with medication regimen; Z20.828 Contact with and (suspected) exposure to other viral communicable diseases
CPT/HCPCS: 36415; 71045; 80048; 80053; 82550; 82553; 82962; 84484; 84702; 85025; 85027; 85610; 85730; 93005; 93010; 94660; 96374; 99285; 0241U; C9803; G0257; J1815; J2405; J2543; J3490; Q5105

== ENCOUNTER 2020-11-04 09:48 | Emergency (ER) | payer MEDICARE, MEDICAID ==
--- NOTE | 2020-11-04 10:17 | ER Document Report ---
ED Medical Screen (RME) - General Chief Complaint: Chest Pain Stated Complaint: CHEST PAIN Time Seen by Provider: 11/04/20 10:09 Primary Care Provider: HILARY HERNANDEZ MD [Primary Care Provider] - Follow up as needed Notes: Patient is a 35-year-old female presents to the emergency department with chest pain that started at 830 this morning. States that it is in the middle of her chest. Patient is a dialysis patient and goes on Wednesday, Wednesday, and Wednesday. States that she has been going to dialysis as scheduled. Exam: Sinus tachycardia. Rate 105 on the monitor. I have greeted and performed a rapid initial assessment of this patient. A comprehensive ED assessment and evaluation of the patient, analysis of test results and completion of medical decision making process will be conducted by an additional ED providers. TRAVEL OUTSIDE OF THE [place] IN LAST 30 DAYS: No - Related Data Allergies/Adverse Reactions: aspirin [Aspirin] Allergy (Verified 08/28/20 12:45) Anaphylaxis ciprofloxacin [From Cipro] Allergy (Verified 08/28/20 12:45) Anaphylaxis clindamycin [Clindamycin] Allergy (Verified 08/28/20 12:45) hydrocodone [From Vicodin] Allergy (Verified 08/28/20 12:45) ibuprofen [From Motrin] Allergy (Verified 08/28/20 12:45) Anaphylaxis lidocaine [From Lidoderm] Allergy (Verified 08/28/20 12:45) Generalized rash tramadol HCl [From Ultram] Allergy (Verified 08/28/20 12:45) vancomycin [Vancomycin] Allergy (Verified 08/28/20 12:45) Shortness of Breath nitroglycerin [Nitroglycerin] Adverse Reaction (Intermediate, Verified 08/28/20 12:45) Joint pain Past Medical History - Social History Chew tobacco use (# tins/day): No Family history: Reviewed & Not Pertinent - Past Medical History Cardiac Medical History: Reports: Hx Congestive Heart Failure, Hx Coronary Artery Disease, Hx Heart Attack, Hx Hypertension, Hx Heart Murmur Pulmonary Medical History: Reports: Hx Asthma, Hx Pneumonia Neurological Medical History: Reports: Hx Migraine, Hx Seizures - only r/t low calcium. Denies: Hx Parkinson's Disease Endocrine Medical History: Reports: Hx Diabetes Mellitus Type 1, Hx Diabetes Mellitus Type 2 Renal/ Medical History: Reports: Hx End Stage Renal Disease - On hemodialysis -W-, Hx Hemodialysis - MWF, Hx Ovarian Cysts. Denies: Hx Peritoneal Dialysis Malignancy Medical History: GI Medical History: Reports: Hx Gastritis Musculoskeltal Medical History: Skin Medical History: Reports Hx Psoriasis Psychiatric Medical History: Reports: Hx Depression Traumatic Medical History: Infectious Medical History: Past Surgical History: Reports: Hx Appendectomy, Hx Cholecystectomy, Hx Vascular Surgery - Lt AV Fistula and graft; Rt AV fistula - Immunizations Immunizations up to date: Yes Hx Diphtheria, Pertussis, Tetanus Vaccination: Yes Doctor's Discharge - Discharge Referrals: HILARY HERNANDEZ MD [Primary Care Provider] - Follow up as needed
--- NOTE | 2020-11-04 10:18 | EKG REPORT ---
SEVERITY:- ABNORMAL ECG - SINUS TACHYCARDIA NONSPECIFIC INTRAVENTRICULAR CONDUCTION DELAY PROBABLE LVH WITH SECONDARY REPOL ABNRM : Confirmed by: Beatriz Leyva MD 04-Nov-2020 10:18:20
--- NOTE | 2020-11-04 11:05 | RADIOLOGY REPORT (SQ) ---
EXAM DESCRIPTION: CHEST SINGLE VIEW IMAGES COMPLETED DATE/TIME: 11/04/2020 10:45 am REASON FOR STUDY: chest pain COMPARISON: AP view of the chest from 10/23/2020. EXAM PARAMETERS: NUMBER OF VIEWS: One view. TECHNIQUE: An AP view of the chest was obtained. RADIATION DOSE: NA LIMITATIONS: None. FINDINGS: LUNGS AND PLEURA: Bilateral patchy basilar predominant parenchymal opacities. There is no sizable pleural effusion or pneumothorax. MEDIASTINUM AND HILAR STRUCTURES: No mediastinal or hilar contour abnormality. HEART AND VASCULAR STRUCTURES: The cardiac silhouette is borderline enlarged. BONES: No acute findings. HARDWARE: Endovascular stents along the outflow of a right upper extremity hemodialysis access. OTHER: No other finding. IMPRESSION: Bilateral patchy basilar predominant parenchymal opacities. The findings are similar to those described on the radiograph from 10/23/2020 and could represent volume overload. Clinical manjinder elation to exclude a superimposed pneumonia is recommended. TECHNICAL DOCUMENTATION: JOB ID: [id number] 2010 [employer]- All Rights Reserved Reading location - IP/workstation name: [email or web address]
[2020-11-04 11:11] LABS: ABSOLUTE BASOPHILS # (AUTO) 0.1 10^3/uL (0.0-0.2); ABSOLUTE EOSINOPHILS # (AUTO) 0.9 10^3/uL (0.0-0.6); ABSOLUTE LYMPHOCYTES (AUTO) 1.4 10^3/uL (0.5-4.7); ABSOLUTE MONOCYTES (AUTO) 0.6 10^3/uL (0.1-1.4); ABSOLUTE NEUT (AUTO) 7.7 10^3/uL (1.7-8.2); BASOPHILS % (AUTO) 0.5 % (0-2); EOSINOPHILS % (AUTO) 8.1 % (0-6); HEMATOCRIT 29.4 % (36.0-47.0); HEMOGLOBIN 9.7 g/dL (12.0-15.5); LYMPHOCYTES % (AUTO) 13.6 % (13-45); MEAN CORPUSCULAR HEMOGLOBIN 29.5 pg (27.0-33.4); MEAN CORPUSCULAR HGB CONC 32.8 g/dL (32.0-36.0); MEAN CORPUSCULAR VOLUME 90 fl (80-97); MONOCYTES % (AUTO) 5.5 % (3-13); PLATELET COUNT 334 10^3/uL (150-450); RED BLOOD COUNT 3.27 10^6/uL (3.72-5.28); RED CELL DISTRIBUTION WIDTH 17.2 % (11.5-14.0); SEGMENTED NEUTROPHILS % (AUTO) 72.3 % (42-78); TOTAL CELLS COUNTED % (AUTO) 100 %; WHITE BLOOD COUNT 10.7 10^3/uL (4.0-10.5)
[2020-11-04 11:32] LABS: ALBUMIN 4.4 g/dL (3.5-5.0); ALKALINE PHOSPHATASE 81 U/L (38-126); ANION GAP 19 (5-19); ASPARTATE AMINO TRANSFERASE 18 U/L (14-36); BILIRUBIN,DIRECT 0.5 mg/dL (0.0-0.4); BILIRUBIN,TOTAL 0.5 mg/dL (0.2-1.3); BLOOD UREA NITROGEN 67 mg/dL (7-20); CARBON DIOXIDE 21 mmol/L (22-30); CHLORIDE 96 mmol/L (98-107); GLUCOSE 232 mg/dL (75-110); TOTAL PROTEIN 8.1 g/dL (6.3-8.2)
[2020-11-04] MEDS ORDERED: OXYCODONE-ACETAMINOPHEN 5-325 MG TABLET PO ONE (11:33)
[2020-11-04 11:36] LABS: POTASSIUM 6.3 mmol/L (3.6-5.0)
[2020-11-04] MEDS ORDERED: CEPHALEXIN 500 MG CAPSULE PO ONE (11:36)
[2020-11-04] MEDS ORDERED: SODIUM POLYSTYRENE SULFONATE 15 GM/60 ML PO ONE (11:39)
[2020-11-04 11:54] LABS: TROPONIN I 0.401 ng/mL
--- NOTE | 2020-11-04 12:05 | ER Document Report ---
Entered by POP GONCALVES SCRIBE 11/04/20 1144 Acting as scribe for:ELOISA SALINAS MD ED General - General Chief Complaint: Chest Pain Stated Complaint: CHEST PAIN Time Seen by Provider: 11/04/20 10:09 Primary Care Provider: HILARY HERNANDEZ MD [Primary Care Provider] - Follow up as needed Information source: Patient, [facility] Records Notes: This 35 year old female patient with history of HTN, CHF, CAD, and DM, presents to the emergency department today with complaints of chest pain that began at 8 am this morning. Patient reports history of ESRD with HD (MWF), and is due for dialysis today at 10:30 am. Patient states she is on O2 at home 2-3 L NC depending on how she feels. Patient reports folliculitis to her right lower leg and is usually given Keflex with improvement. TRAVEL OUTSIDE OF THE [place] IN LAST 30 DAYS: No - Related Data Allergies/Adverse Reactions: aspirin [Aspirin] Allergy (Verified 11/04/20 10:47) Anaphylaxis ciprofloxacin [From Cipro] Allergy (Verified 11/04/20 10:47) Anaphylaxis clindamycin [Clindamycin] Allergy (Verified 11/04/20 10:47) hydrocodone [From Vicodin] Allergy (Verified 11/04/20 10:47) ibuprofen [From Motrin] Allergy (Verified 11/04/20 10:47) Anaphylaxis lidocaine [From Lidoderm] Allergy (Verified 11/04/20 10:47) Generalized rash tramadol HCl [From Ultram] Allergy (Verified 11/04/20 10:47) vancomycin [Vancomycin] Allergy (Verified 11/04/20 10:47) Shortness of Breath nitroglycerin [Nitroglycerin] Adverse Reaction (Intermediate, Verified 11/04/20 10:47) Joint pain Past Medical History - General Information source: Patient, [facility] Records - Social History Smoking Status: Unknown if Ever Smoked Chew tobacco use (# tins/day): No Family History: Reviewed & Not Pertinent, Hypertension - Past Medical History Cardiac Medical History: Reports: Hx Congestive Heart Failure, Hx Coronary Artery Disease, Hx Heart Attack, Hx Hypertension, Hx Heart Murmur Pulmonary Medical History: Reports: Hx Asthma, Hx Pneumonia Neurological Medical History: Reports: Hx Migraine, Hx Seizures - only r/t low calcium Endocrine Medical History: Reports: Hx Diabetes Mellitus Type 1, Hx Diabetes Mellitus Type 2 Renal/ Medical History: Reports: Hx End Stage Renal Disease - On hemodialysis M-W-F, Hx Hemodialysis - MWF, Hx Ovarian Cysts Malignancy Medical History: GI Medical History: Reports: Hx Gastritis Musculoskeletal Medical History: Skin Medical History: Reports Hx Psoriasis Psychiatric Medical History: Reports: Hx Depression Traumatic Medical History: Infectious Medical History: Past Surgical History: Reports: Hx Appendectomy, Hx Cholecystectomy, Hx Vascular Surgery - Lt AV Fistula and graft; Rt AV fistula - Immunizations Immunizations up to date: Yes Hx Diphtheria, Pertussis, Tetanus Vaccination: Yes Hx Pneumococcal Vaccination: 08/22/11 Review of Systems - Review of Systems Constitutional: No symptoms reported EENT: No symptoms reported Cardiovascular: See HPI, Chest pain Respiratory: No symptoms reported Gastrointestinal: No symptoms reported Genitourinary: No symptoms reported Female Genitourinary: No symptoms reported Musculoskeletal: No symptoms reported Skin: See HPI Hematologic/Lymphatic: No symptoms reported Neurological/Psychological: No symptoms reported -: Yes All other systems reviewed and negative Physical Exam - Vital signs Vitals: Temp Resp BP Pulse Ox 98.2 F 27 H 142/90 H 100 11/04/20 10:05 11/04/20 10:05 11/04/20 10:05 11/04/20 10:05 - General General appearance: Alert - HEENT Head: Normocephalic, Atraumatic Eyes: Normal Pupils: PERRL - Respiratory Chest status: Nontender Notes: Diminished breath sounds to bases bilaterally. Saturating 100% on 3L O2 NC. - Cardiovascular Rhythm: Regular Heart sounds: Normal auscultation, S1 appreciated, S2 appreciated Murmur: No - Abdominal Distension: No distension Bowel sounds: Normal Tenderness: Nontender Notes: Rotund and obese abdomen. - Extremities General upper extremity: Normal inspection, Normal ROM Notes: Edema to the bilateral lower extremities, R>L. Erythema to the right lower leg. - Neurological Neuro grossly intact: Yes Cognition: Normal Orientation: AAOx4 Hellen Coma Scale Eye Opening: Spontaneous Hellen Coma Scale Verbal: Oriented [place] Coma Scale Motor: Obeys Commands Hellen Coma Scale Total: 15 Speech: Normal Sensory: Normal - Psychological Associated symptoms: Normal affect, Normal mood - Skin Skin Temperature: Warm Skin Moisture: Dry Skin Color: Normal Course - Re-evaluation Re-evalutation: 11/04/20 11:57 Patient resting comfortable on 3 L nasal O2 sats 100% chest discomfort just mild pressure in the anterior sternal region. - Vital Signs Vital signs: Temp Pulse Resp BP Pulse Ox 98.2 F 27 H 142/90 H 100 11/04/20 10:05 11/04/20 10:05 11/04/20 10:05 11/04/20 10:21 - Laboratory Results Result Diagrams: 11/04/20 10:52 11/04/20 10:52 Laboratory Results Interpreted: 11/04/20 11/04/20 11/04/20 10:52 10:52 10:52 WBC 10.7 H RBC 3.27 L Hgb 9.7 L Hct 29.4 L RDW 17.2 H Eos % (Auto) 8.1 H Absolute Eos (auto) 0.9 H Sodium 135.9 L Potassium 6.3 H* Chloride 96 L Carbon Dioxide 21 L BUN 67 H Creatinine 11.55 H Est GFR ( Amer) 5 L Est GFR (MDRD) Non-Af 4 L Glucose 232 H Direct Bilirubin 0.5 H NT-Pro-B Natriuret Pep 81897 H 11/04/20 11:58 Laboratories show a BNP of 12,000 BNP BUN/creatinine 67/11.55. Also noted is a potassium of 6.3 and a troponin of 0.0401. Trending on patient's troponin this is not an unusual #4 patient troponin levels she has been higher the last time she was in the department she had a a troponin of 2.6. Critical Laboratory Results Reviewed: Yes Attending or Supervising Physician who Reviewed Labs: ELOISA SALINAS - Patient is due for hemodialysis today and has chair time pending her departure from ED she is going to be going by EMS directly to dialysis center. - Radiology Results Critical Radiology Results Reviewed: No Critical Results - EKG Interpretation by Me Additional EKG results interpreted by me: 11/04/20 12:00 Twelve-lead EKG shows sinus tachycardia rate of 109 nonspecific intraventricular conduction delay with an incomplete left bundle branch block patient has a left axis deviation IL interval prolonged, incomplete QRS left bundle branch block at the top limit of normal at 12. QT interval prolonged. No acute STEMI. Patient has peaked T waves in V3 and V4. Discharge - Discharge Clinical Impression: ESRD (end stage renal disease) on dialysis, Folliculitis right lower extremity., Chest pain Condition: Good Disposition: [facility] Instructions: Angina Episode ([facility]) Additional Instructions: Kidney Failure When your kidneys no longer filter the blood adequately, we call this "kidney failure." While kidney failure can happen suddenly, usually it's the result of many years of slow damage. Kidneys can be injured by many different medical problems including infections, diabetes, high blood pressure, kidney stones, drug toxicity, and immune reactions. The symptoms of kidney failure do not develop until most of the normal kidney tissue has been lost. Early kidney failure usually has no symptoms. As it gets worse, symptoms can include weakness, confusion, high blood pressure, swelling, nausea, anemia, and itching. The seriousness of kidney failure is determined by measuring kidney function tests such as BUN or creatinine. The cause of kidney failure may be obvious from the medical history, but occasionally requires special tests such as an angiogram or kidney biopsy. Kidney failure can cause high blood pressure, and uncontrolled hypertension damages kidneys. Good control of blood pressure is important. If you have diabetes, good blood sugar control helps prevent further kidney damage. Fluid retention can be monitored by checking your weight daily. It's best to eat a diet low in protein, potassium, and salt. When kidney failure becomes severe, dialysis or kidney transplant may be required. Call the doctor or return if you develop significant weakness, repeated vomiting, severe lightheadedness, confusion, severe headache, or other serious change in your health. You have taken directly to the [facility] hemodialysis center for your dialysis that is due today. Further instructions per your discharge from dialysis. Referrals: HILARY HERNANDEZ MD [Primary Care Provider] - Follow up as needed I personally performed the services described in the documentation, reviewed and edited the documentation which was dictated to the scribe in my presence, and it accurately records my words and actions.
[2020-11-04 12:35] VITALS: BP 149/86
== END 2020-11-04 12:30 | disposition home health service (06) ==
LOC: ER 09:48
DX: R07.89 Other chest pain (principal); L73.9 Follicular disorder, unspecified; I13.2 Hypertensive heart and chronic kidney disease with heart failure and with stage 5 chronic kidney disease, or end stage renal disease; E11.22 Type 2 diabetes mellitus with diabetic chronic kidney disease; N18.6 End stage renal disease; I50.9 Heart failure, unspecified; Z99.2 Dependence on renal dialysis; I44.7 Left bundle-branch block, unspecified; R00.0 Tachycardia, unspecified; Z87.892 Personal history of anaphylaxis; Z88.8 Allergy status to other drugs, medicaments and biological substances; Z88.1 Allergy status to other antibiotic agents; Z88.6 Allergy status to analgesic agent; Z88.5 Allergy status to narcotic agent; Z88.4 Allergy status to anesthetic agent
CPT/HCPCS: 93005; 99285; 36415; 83735; 85025; 80053; 84484; 83880; 71045; 93010; A9270 ×3

== ENCOUNTER 2020-11-06 09:34 | Inpatient (IN) | payer MEDICARE, MEDICAID ==
--- NOTE | 2020-11-06 10:22 | ER Document Report ---
ED General - General Stated Complaint: SHORTNESS OF BREATH Time Seen by Provider: 11/06/20 09:42 Primary Care Provider: HILARY HERNANDEZ MD [Primary Care Provider] - Follow up as needed Notes: HPI: 35-year-old female very well-known to this emergency department with a past medical history as recorded including end-stage renal disease with Wednesday dialysis presents today stating some worsening shortness of breath. She denies any fevers. She states minimal vomiting. She states nasal congestion without a cough or fevers. No chest pain just states that she is "filling up with fluid". She was scheduled for dialysis this morning but came here instead. No abdominal pain, calf pain or leg swelling. ROS: See HPI All other review of systems reviewed and otherwise negative Reviewed vital signs and nursing note as charted by RN. PHYSICAL EXAM: CONSTITUTIONAL: Patient is alert and answers all questions appropriately. She is actively crying stating she cannot breathe. She is satting 98% on 2 L nasal cannula HEAD: Normocephalic; atraumatic EYES: PERRL; Conjunctivae clear, sclerae non-icteric ENT: Normal nose; no rhinorrhea; moist mucous membranes; pharynx without lesions noted NECK: Supple without meningismus; non-tender; no cervical lymphadenopathy, no masses CARD: Tachycardic and regular; no murmurs; symmetric distal pulses RESP: Tachypnea present with breath sounds bilaterally; no obvious wheezing, rhonchi, or rales on examination ABD/GI: Normal bowel sounds; distended consistent with BMI; soft, non-tender; no palpable organomegaly or masses BACK: The back appears normal and is non-tender to palpation EXT: Normal ROM in all joints; non-tender to palpation; no edema SKIN: No acute lesions noted NEURO: CN 2-12 intact; 5/5 bilateral upper and lower extremity strength with sensation intact to light touch PSYCH: The patient's mood and manner are appropriate. Grooming and personal h ygiene are appropriate. TRAVEL OUTSIDE OF THE [place] IN LAST 30 DAYS: No - Related Data Allergies/Adverse Reactions: aspirin [Aspirin] Allergy (Verified 11/04/20 10:47) Anaphylaxis ciprofloxacin [From Cipro] Allergy (Verified 11/04/20 10:47) Anaphylaxis clindamycin [Clindamycin] Allergy (Verified 11/04/20 10:47) hydrocodone [From Vicodin] Allergy (Verified 11/04/20 10:47) ibuprofen [From Motrin] Allergy (Verified 11/04/20 10:47) Anaphylaxis lidocaine [From Lidoderm] Allergy (Verified 11/04/20 10:47) Generalized rash tramadol HCl [From Ultram] Allergy (Verified 11/04/20 10:47) vancomycin [Vancomycin] Allergy (Verified 11/04/20 10:47) Shortness of Breath nitroglycerin [Nitroglycerin] Adverse Reaction (Intermediate, Verified 11/04/20 10:47) Joint pain Past Medical History - Social History Smoking Status: Unknown if Ever Smoked Family History: Reviewed & Not Pertinent, Hypertension - Past Medical History Cardiac Medical History: Reports: Hx Congestive Heart Failure, Hx Coronary A rtery Disease, Hx Heart Attack, Hx Hypertension, Hx Heart Murmur Pulmonary Medical History: Reports: Hx Asthma, Hx Pneumonia Neurological Medical History: Reports: Hx Migraine, Hx Seizures - only r/t low calcium. Denies: Hx Parkinson's Disease Endocrine Medical History: Reports: Hx Diabetes Mellitus Type 1, Hx Diabetes Caro litus Type 2 Renal/ Medical History: Reports: Hx End Stage Renal Disease - On hemodialysis M-W-, Hx Hemodialysis - MWF, Hx Ovarian Cysts. Denies: Hx Peritoneal Dialysis Malignancy Medical History: GI Medical History: Reports: Hx Gastritis Musculoskeletal Medical History: Skin Medical History: Reports Hx Psoriasis Psychiatric Medical History: Reports: Hx Depression Traumatic Medical History: Infectious Medical History: Past Surgical History: Reports: Hx Appendectomy, Hx Cholecystectomy, Hx Vascular Surgery - Lt AV Fistula and graft; Rt AV fistula - Immunizations Immunizations up to date: Yes Hx Diphtheria, Pertussis, Tetanus Vaccination: Yes Hx Pneumococcal Vaccination: 08/22/11 Physical Exam - Vital signs Vitals: Resp 12 11/06/20 09:38 Course - Re-evaluation Re-evalutation: EKG shows heart of 116, sinus tachycardia, poor R wave progression, inverted T waves aVL. Previous EKG on 1214 shows no obvious appreciable change. 11/06/20 10:21 Given the above history and physical we will place the patient on BiPAP and ob tain a portable x-ray of the chest, EKG, and cardiac panel. I am concerned about the possibility of fluid overload. Given the lack of any chest pain, with the patient stating she has felt previous symptoms very similar this relieved by dialysis, I do believe PE and dissection to be unlikely. I do believe the patient would benefit from dialysis. 11/06/20 11:07 Patient feels much better after the Ativan and the BiPAP. Heart rate is currently 98. She is satting 99% on 2 L. She is no longer tachypneic. White blood cell count as recorded. X-ray as recorded. Given the lack of a fever with a white blood cell count as listed I believe this is most likely pulmonary fluid. I have called to speak to the patient's service desk associate to try to get her dialysis today. Given the patient's glucose and potassium I will provide an insulin bolus. 11/06/20 11:19 I did speak to the service desk associate directly. We will perform dialysis here in the emergency department. He believes the patient's symptoms improved, the patient can be discharged home for follow-up with the next dialysis session. Regarding the patient's troponin if you research the patient's past troponin it was as high as 10 2 weeks ago. She has had cardiac imaging for investigation of coronary artery disease. 11/06/20 11:27 I did speak directly to the laboratory apparatus glass grinder. He did review the patient's chart it appears the patient had a normal cardiac cath this year in 2019. She was admitted 2 weeks ago and they thought the elevated troponin was secondary to elevated blood pressure and poor compliance. 11/06/20 16:08 Patient is receiving dialysis. Pt will most likely be admitted for further evaluation and management. - Vital Signs Vital signs: Temp Pulse Resp BP Pulse Ox 98.4 F 27 H 162/100 H 100 11/06/20 13:02 11/06/20 13:02 11/06/20 13:02 11/06/20 13:02 - Laboratory Results Result Diagrams: 11/06/20 10:12 11/06/20 10:12 Laboratory Results Interpreted: 11/06/20 11/06/20 10:12 10:12 RBC 3.21 L Hgb 9.4 L Hct 28.8 L RDW 17.2 H Eos % (Auto) 9.8 H Absolute Eos (auto) 0.9 H Sodium 132.1 L Potassium 6.3 H* Chloride 94 L Carbon Dioxide 20 L BUN 75 H Creatinine 10.57 H Est GFR ( Amer) 5 L Est GFR (MDRD) Non-Af 4 L Glucose 411 H* Critical Laboratory Results Reviewed: Yes Attending or Supervising Physician who Reviewed Labs: O'Levon - See chart - Radiology Results Critical Radiology Results Reviewed: No Critical Results Critical Care Note - Critical Care Note Total time excluding time spent on procedures (mins): 45 Discharge - Discharge Clinical Impression: Acute respiratory distress, Tachycardia Condition: Fair Disposition: ADMITTED INPATIENT Admitting Provider: Areli Unit Admitted: IMCU Referrals: HILARY HERNANDEZ MD [Primary Care Provider] - Follow up as needed
[2020-11-06 10:26] LABS: ABSOLUTE EOSINOPHILS # (AUTO) 0.9 10^3/uL (0.0-0.6); ABSOLUTE LYMPHOCYTES (AUTO) 1.5 10^3/uL (0.5-4.7); ABSOLUTE MONOCYTES (AUTO) 0.6 10^3/uL (0.1-1.4); ABSOLUTE NEUT (AUTO) 6.2 10^3/uL (1.7-8.2); BASOPHILS % (AUTO) 0.5 % (0-2); EOSINOPHILS % (AUTO) 9.8 % (0-6); HEMATOCRIT 28.8 % (36.0-47.0); HEMOGLOBIN 9.4 g/dL (12.0-15.5); LYMPHOCYTES % (AUTO) 16.3 % (13-45); MEAN CORPUSCULAR HEMOGLOBIN 29.2 pg (27.0-33.4); MEAN CORPUSCULAR HGB CONC 32.6 g/dL (32.0-36.0); MEAN CORPUSCULAR VOLUME 90 fl (80-97); MONOCYTES % (AUTO) 6.3 % (3-13); PLATELET COUNT 299 10^3/uL (150-450); RED BLOOD COUNT 3.21 10^6/uL (3.72-5.28); RED CELL DISTRIBUTION WIDTH 17.2 % (11.5-14.0); SEGMENTED NEUTROPHILS % (AUTO) 67.1 % (42-78); TOTAL CELLS COUNTED % (AUTO) 100 %; WHITE BLOOD COUNT 9.2 10^3/uL (4.0-10.5)
[2020-11-06] MEDS ORDERED: LORAZEPAM INJ 2 MG/1 ML VIAL IV ONE (10:27)
[2020-11-06 10:53] LABS: ANION GAP 18 (5-19); BLOOD UREA NITROGEN 75 mg/dL (7-20); CALCIUM 8.7 mg/dL (8.4-10.2); CARBON DIOXIDE 20 mmol/L (22-30); CHLORIDE 94 mmol/L (98-107)
--- NOTE | 2020-11-06 10:54 | RADIOLOGY REPORT (SQ) ---
EXAM DESCRIPTION: CHEST SINGLE VIEW IMAGES COMPLETED DATE/TIME: 11/06/2020 10:45 am REASON FOR STUDY: 5; SOB COMPARISON: AP view of the chest from 11/04/2020. EXAM PARAMETERS: NUMBER OF VIEWS: One view. TECHNIQUE: An AP view of the chest was obtained. RADIATION DOSE: NA LIMITATIONS: None. FINDINGS: LUNGS AND PLEURA: Diffuse patchy bilateral parenchymal opacities that have increased cecilio red to the radiograph from 11/04/2020. There is no sizable pleural effusion or pneumothorax. MEDIASTINUM AND HILAR STRUCTURES: No mediastinal or hilar contour abnormality. HEART AND VASCULAR STRUCTURES: The cardiac silhouette is enlarged. BONES: No acute findings. HARDWARE: None in the chest. OTHER: No other finding. IMPRESSION: Diffuse bilateral patchy parenchymal opacities that have increased since the radiograph from 11/04/2020. Differential and considerations include multifocal pneumonia and pulmonary edema. TECHNICAL DOCUMENTATION: JOB ID: [id number] [employer]- All Rights Reserved Reading location - IP/workstation name: [email or web address]
[2020-11-06 11:02] LABS: GLUCOSE 411 mg/dL (75-110); POTASSIUM 6.3 mmol/L (3.6-5.0)
[2020-11-06] MEDS ORDERED: INSULIN REG, HUMAN 100 UNIT/ML 3 ML VIAL (PYX) IV ONE (11:08)
[2020-11-06] MEDS ORDERED: MORPHINE SULFATE 10 MG/ML INJ IV ONE ×2 (11:20→16:14)
[2020-11-06] MEDS ORDERED: EPOETIN ALFA-EPBX 10,000 UNIT in SYRINGE, DISPOSABLE, 1 EACH IV PRN (12:08)
[2020-11-06] MEDS ORDERED: ONDANSETRON HCL INJ/PF 4 MG/2 ML SDV IV ONE (13:32)
--- NOTE | 2020-11-06 16:50 | PDOC CONSULTATION ---
Consultation Consult Date: 11/06/20 Provider Consulted: Lazarus OLIVARES Consult reason:: ESRD for HD in the background of CHF and hyperkalemia History of Present Illness Admission Date/PCP: 11/06/20 16:32 HILARY HERNANDEZ MD History of Present Illness: ERICH GOODMAN is a 35 year old femalewith multiple co morbidities including Type ! diabetes mellitus with complications, hypertension, ESRD on dialysis, multiple admissions with recurrent congestive heart failure/severe hypertension/hyperkale trini secondary to severe noncompliance with diet , medications and missing dialysis treatments was admitted with history of progressive shortness of breath. Previous dialysis was on Wednesday and she has been progressively getting short of breath over the last day or so. She is complaining of generalized body aches. She was here earlier this month with similar presentation and chest x-ray showing fluffy shadows suggestive of CHF/or possible Covid. She denies any history of fever or chills. Complains of generalized pains. She is currently being seen while undergoing dialysis. Labs and medications were reviewed. Chest x-ray shows persistent fluffy interstitial patterns with differentials including CHF/interstitial pneumonia of infective origin. Dialysis orders were reviewed with the treating dialysis nurse. . Past Medical History Cardiac Medical History: Reports: Coronary Artery Disease, Heart Murmur, Hypertension-primary, Myocardial Infarction Pulmonary Medical History: Reports: Asthma, Pneumonia Neurological Medical History: Reports: Migraine, Seizures - only r/t low calcium Endocrine Medical History: Reports: Diabetes Mellitus Type 1 Complications of Diabetes: Reports: Autonomic Neuropathy, Nephropathy, Retinopathy Renal/ Medical History: Reports: End Stage Renal Disease - On hemodialysis M-W-, Hypocalcemia, Hyperkalemia, Secondary Hyperparathyroidism Malignancy Medical History: GI Medical History: Musculoskeltal Medical History: Skin Medical History: Reports: Psoriasis Psychiatric Medical History: Reports: Depression Infectious Medical History: Hematology Medical History: Reports Anemia of Chronic Kidney Disease Past Surgical History Past Surgical History: Reports: Appendectomy, Cholecystectomy, Dialysis Access Surgery AVF, Vascular Surgery - Lt AV Fistula and graft; Rt AV fistula Social History Smoking Status: Unknown if Ever Smoked Electronic Cigarette use?: No Frequency of Alcohol Use: Rare Hx Recreational Drug Use: No Drugs: None Hx Prescription Drug Abuse: No Family History Parental Family History Reviewed: Yes - Negative for ESRD Children Family History Reviewed: No Sibling(s) Family History Reviewed.: No Medication/Allergy Home Medications: Calcium Acetate [Phoslo 667 mg Capsule] 1,334 mg PO .BIDWITHSNACKS 09/25/19 Calcium Acetate [Phoslo 667 mg Capsule] 2,001 mg PO Q8 09/25/19 Oxycodone HCl/Acetaminophen [Percocet 7.5-325 mg Tablet] 1 each PO QIDP PRN 03/10 Metolazone 10 mg PO BID 10/25/19 Clopidogrel Bisulfate [Plavix 75 mg Tablet] 75 mg PO DAILY 11/29/19 Linaclotide [Linzess] 290 mcg PO DAILY 07/29/20 Nifedipine [Nifedipine ER] 60 mg PO Q12 08/05/20 Ranolazine [Ranexa 500 mg Tab.sr] 500 mg PO Q12 #60 tab.sr.12h 08/08/20 Carvedilol [Coreg 6.25 mg Tablet] 6.25 mg PO Q12 10/22/20 Clonidine HCl [Catapres] 0.1 mg PO TID 10/22/20 Furosemide [Lasix 80 mg Tablet] 80 mg PO TIDP PRN 10/22/20 Hydralazine HCl [Apresoline 50 mg Tablet] 50 mg PO Q8 10/22/20 Pantoprazole Sodium [Protonix [address] Tablet] 40 mg PO Q12 10/22/20 Promethazine HCl [Phenergan 25 mg Tablet] 25 mg PO Q6HP PRN 10/22/20 Tazarotene [Tazorac] 1 applic TP QHS 10/22/20 Cephalexin Monohydrate [Keflex 500 mg Capsule] 500 mg PO ASDIR 7 Days #14 capsule 11/04/20 Allergies/Adverse Reactions: aspirin [Aspirin] Allergy (Verified 11/04/20 10:47) Anaphylaxis ciprofloxacin [From Cipro] Allergy (Verified 11/04/20 10:47) Anaphylaxis clindamycin [Clindamycin] Allergy (Verified 11/04/20 10:47) hydrocodone [From Vicodin] Allergy (Verified 11/04/20 10:47) ibuprofen [From Motrin] Allergy (Verified 11/04/20 10:47) Anaphylaxis lidocaine [From Lidoderm] Allergy (Verified 11/04/20 10:47) Generalized rash tramadol HCl [From Ultram] Allergy (Verified 11/04/20 10:47) vancomycin [Vancomycin] Allergy (Verified 11/04/20 10:47) Shortness of Breath nitroglycerin [Nitroglycerin] Adverse Reaction (Intermediate, Verified 11/04/20 10:47) Joint pain Review of Systems Constitutional: PRESENT: anorexia, headache(s), weakness. ABSENT: fever(s), night sweats Nose, Mouth, and Throat: ABSENT: mouth pain, sore throat Cardiovascular: PRESENT: dyspnea on exertion. ABSENT: chest pain, edema Respiratory: PRESENT: dyspnea. ABSENT: cough, hemoptysis Gastrointestinal: ABSENT: coffee ground emesis, constipation, diarrhea, dysphagia, heartburn, nausea, vomiting Musculoskeletal: ABSENT: deformity, joint swelling Integumentary: ABSENT: erythema, lesions, pruritus, rash Neurological: ABSENT: abnormal gait, abnormal speech, confusion, convulsions, focal weakness Endocrine: PRESENT: polydipsia Hematologic/Lymphatic: ABSENT: easy bruising, lymphadenopathy Physical Exam Vital Signs: Temp Pulse Resp BP Pulse Ox 98.4 F 26 H 150/115 H 97 11/06/20 13:02 11/06/20 16:06 11/06/20 16:06 11/06/20 14:46 Intake & Output 11/05/20 11/06/20 11/07/20 06:59 06:59 06:59 Weight 122.1 kg General appearance: PRESENT: mild distress Eye exam: PRESENT: EOMI, PERRLA. ABSENT: scleral icterus Respiratory exam: PRESENT: clear to auscultation freddy, crackles, decreased breath sounds Cardiovascular exam: PRESENT: +S1, +S2 GI/Abdominal exam: PRESENT: normal bowel sounds, soft. ABSENT: organomegaly, rebound, tenderness Extremities exam: PRESENT: +1 edema Neurological exam: PRESENT: alert, awake, oriented to person, oriented to place Psychiatric exam: PRESENT: anxious Skin exam: ABSENT: erythema, mottled, rash Results Laboratory Results: 11/06/20 10:12 11/06/20 10:12 11/06/20 11/06/20 10:12 10:12 WBC 9.2 RBC 3.21 L Hgb 9.4 L Hct 28.8 L MCV 90 MCH 29.2 MCHC 32.6 RDW 17.2 H Plt Count 299 Seg Neutrophils % 67.1 Sodium 132.1 L Potassium 6.3 H* Chloride 94 L Carbon Dioxide 20 L Anion Gap 18 BUN 75 H Creatinine 10.57 H Est GFR ( Amer) 5 L Glucose 411 H* Calcium 8.7 11/06/20 10:12 Troponin I 0.689 Impressions: Chest X-Ray 11/06/20 10:20 IMPRESSION: Diffuse bilateral patchy parenchymal opacities that have increased since the radiograph from 11/04/2020. Differential and considerations include multifocal pneumonia and pulmonary edema. Assessment & Plan - Diagnosis (1) Acute respiratory distress Plan: See response to ultrafiltration. (2) Acute pulmonary edema Plan: See the response to ultrafiltration and and relief of pulmonary edema. Monitor closely. (3) Hyperkalemia Plan: EKG showed tall T waves. See response to urgent hemodialysis on a 1K into 1 hour followed by 2K bath. Advised dietary compliance. (4) ESRD on dialysis Plan: Patient currently on dialysis being supervised. She is undergoing dialysis without any uneventful issues. We will plan to remove 4-5 L of fluid as tolerated. Dialysis orders were reviewed with the treating dialysis nurse especially regarding the low potassium bath given her high potassium and EKG changes. 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 If his blood sugars not controlled her potassium is also gone to remain high. (6) Essential (primary) hypertension Plan: Controlled. Monitor. (7) Medical non-compliance Plan: Advised better compliance as she has had multiple and recurring admissions for similar situations in the past because of severe noncompliance with diet and medications and missing dialysis treatments. (8) Pneumonia Qualifiers: Pneumonia type: due to unspecified organism Laterality: unspecified laterality Lung location: unspecified part of lung Qualified Code(s): J18.9 - Pneumonia, unspecified organism Plan: This could be a differential given x-ray features. Monitor closely and recommend testing for Covid. (9) Anemia in chronic kidney disease (CKD) Qualifiers: Plan: Adjust erythropoietin. (10) Renal osteodystrophy Plan: Continue on her calcitriol and watch her phosphorus. (11) Body mass index (BMI) 35.0-35.9, adult Plan: Status quo. Unfortunately she is been progressively gaining more weight over the last year or so. - Time Critical Time spent with patient: Greater than 35 minutes Medications reviewed and adjusted accordingly: Yes
[2020-11-06] MEDS ORDERED: OXYCODONE HCL PO PRN (19:53)
[2020-11-06] MEDS ORDERED: ACETAMINOPHEN PO PRN (19:53)
[2020-11-06] MEDS ORDERED: [UNRECOGNIZED DRUG - OTHER] PO PRN (19:53)
--- NOTE | 2020-11-06 19:53 | PDOC H&P ---
History of Present Illness Admission Date/PCP: 11/06/20 16:32 HILARY HERNANDEZ MD History of Present Illness: ERICH GOODMAN is a 35 year old female, Patient is well-known to this hospital with multiple hospitalization for volume overload related condition, he presented in the usual fashion of shortness of breath, pulmonary edema, hyperkalemia, he required emergency hemodialysis. He was seen by automotive drivability technician, he was dialyzed in the emergency room Past Medical History Cardiac Medical History: Reports: Congestive Heart Failure, Coronary Artery Disease, Myocardial Infarction, Hypertension, Heart Murmur Pulmonary Medical History: Reports: Asthma, Pneumonia Neurological Medical History: Reports: Migraine, Seizures - only r/t low calcium Endocrine Medical History: Reports: Diabetes Mellitus Type 1 Renal/ Medical History: Reports: End Stage Renal Disease - On hemodialysis -W- Malignancy Medical History: GI Medical History: Musculoskeltal Medical History: Skin Medical History: Reports: Psoriasis Psychiatric Medical History: Reports: Depression Hematology: Reports: Anemia Infectious Medical History: Past Surgical History Past Surgical History: Reports: Appendectomy, Cholecystectomy, Vascular Surgery - Lt AV Fistula and graft; Rt AV fistula Social History Smoking Status: Unknown if Ever Smoked Electronic Cigarette use?: No Frequency of Alcohol Use: Rare Hx Recreational Drug Use: No Drugs: None Hx Prescription Drug Abuse: No Family History Family History: Reviewed & Not Pertinent, Hypertension Parental Family History Reviewed: Yes Children Family History Reviewed: Yes Sibling(s) Family History Reviewed.: Yes Medication/Allergy Home Medications: Calcium Acetate [Phoslo 667 mg Capsule] 1,334 mg PO .BIDWITHSNACKS 09/25/19 Calcium Acetate [Phoslo 667 mg Capsule] 2,001 mg PO Q8 09/25/19 Oxycodone HCl/Acetaminophen [Percocet 7.5-325 mg Tablet] 1 each PO QIDP PRN 09/25/19 Metolazone 10 mg PO BID 10/25/19 Clopidogrel Bisulfate [Plavix 75 mg Tablet] 75 mg PO DAILY 11/29/19 Linaclotide [Linzess] 290 mcg PO DAILY 07/29/20 Nifedipine [Nifedipine ER] 60 mg PO Q12 08/05/20 Ranolazine [Ranexa 500 mg Tab.sr] 500 mg PO Q12 #60 tab.sr.12h 08/08/20 Carvedilol [Coreg 6.25 mg Tablet] 6.25 mg PO Q12 10/22/20 Clonidine HCl [Catapres] 0.1 mg PO TID 10/22/20 Furosemide [Lasix 80 mg Tablet] 80 mg PO TIDP PRN 10/22/20 Hydralazine HCl [Apresoline 50 mg Tablet] 50 mg PO Q8 10/22/20 Pantoprazole Sodium [Protonix [address] Tablet] 40 mg PO Q12 10/22/20 Promethazine HCl [Phenergan 25 mg Tablet] 25 mg PO Q6HP PRN 10/22/20 Tazarotene [Tazorac] 1 applic TP QHS 10/22/20 Cephalexin Monohydrate [Keflex 500 mg Capsule] 500 mg PO ASDIR 7 Days #14 capsule 11/04/20 Allergies/Adverse Reactions: aspirin [Aspirin] Allergy (Verified 11/04/20 10:47) Anaphylaxis ciprofloxacin [From Cipro] Allergy (Verified 11/04/20 10:47) Anaphylaxis clindamycin [Clindamycin] Allergy (Verified 11/04/20 10:47) hydrocodone [From Vicodin] Allergy (Verified 11/04/20 10:47) ibuprofen [From Motrin] Allergy (Verified 11/04/20 10:47) Anaphylaxis lidocaine [From Lidoderm] Allergy (Verified 11/04/20 10:47) Generalized rash tramadol HCl [From Ultram] Allergy (Verified 11/04/20 10:47) vancomycin [Vancomycin] Allergy (Verified 11/04/20 10:47) Shortness of Breath nitroglycerin [Nitroglycerin] Adverse Reaction (Intermediate, Verified 11/04/20 10:47) Joint pain Review of Systems Constitutional: ABSENT: chills, fever(s), headache(s), weight gain, weight loss Eyes: ABSENT: visual disturbances Ears: ABSENT: hearing changes Cardiovascular: PRESENT: dyspnea on exertion, edema Respiratory: PRESENT: dyspnea Gastrointestinal: ABSENT: abdominal pain, constipation, diarrhea, hematemesis, hematochezia, nausea, vomiting Genitourinary: ABSENT: dysuria, hematuria Musculoskeletal: ABSENT: joint swelling Integumentary: ABSENT: rash, wounds Neurological: ABSENT: abnormal gait, abnormal speech, confusion, dizziness, focal weakness, syncope Psychiatric: ABSENT: anxiety, depression, homidical ideation, suicidal ideation Endocrine: ABSENT: cold intolerance, heat intolerance, menstrual abnormalities, polydipsia, polyuria Hematologic/Lymphatic: ABSENT: easy bleeding, easy bruising, lymphadenopathy Physical Exam Vital Signs: Temp Pulse Resp BP Pulse Ox 100.3 F 21 H 122/67 100 11/06/20 18:16 11/06/20 19:31 11/06/20 19:31 11/06/20 19:31 Intake & Output 11/05/20 11/06/20 11/07/20 06:59 06:59 06:59 Output Total 4100 Balance -4100 Weight 122.1 kg General appearance: PRESENT: obese Head exam: PRESENT: atraumatic, normocephalic Eye exam: PRESENT: conjunctiva pink, EOMI, PERRLA Ear exam: PRESENT: normal external ear exam Mouth exam: PRESENT: moist, tongue midline Neck exam: PRESENT: full ROM Respiratory exam: PRESENT: crackles Cardiovascular exam: PRESENT: RRR, +S1, +S2 Pulses: PRESENT: normal dorsalis pedis pul, +2 pedal pulses bilateral Vascular exam: PRESENT: normal capillary refill GI/Abdominal exam: PRESENT: normal bowel sounds, soft Rectal exam: PRESENT: deferred Neurological exam: PRESENT: alert, CN II-XII grossly intact. ABSENT: motor sensory deficit Psychiatric exam: PRESENT: appropriate affect, normal mood Skin exam: PRESENT: dry, intact, warm. ABSENT: cyanosis, rash Results Laboratory Results: 11/06/20 10:12 11/06/20 10:12 11/06/20 11/06/20 10:12 10:12 WBC 9.2 RBC 3.21 L Hgb 9.4 L Hct 28.8 L MCV 90 MCH 29.2 MCHC 32.6 RDW 17.2 H Plt Count 299 Seg Neutrophils % 67.1 Sodium 132.1 L Potassium 6.3 H* Chloride 94 L Carbon Dioxide 20 L Anion Gap 18 BUN 75 H Creatinine 10.57 H Est GFR ( Amer) 5 L Glucose 411 H* Calcium 8.7 11/06/20 10:12 Troponin I 0.689 Impressions: Chest X-Ray 11/06/20 10:20 IMPRESSION: Diffuse bilateral patchy parenchymal opacities that have increased since the radiograph from 11/04/2020. Differential and considerations include multifocal pneumonia and pulmonary edema. Assessment & Plan - Diagnosis (1) Acute diastolic heart failure Is this a current diagnosis for this admission?: Yes Plan: Patient was dialyzed, already feeling better (2) End stage renal disease Is this a current diagnosis for this admission?: Yes Plan: Management per nephrology - Time Time Spent: Greater than 70 Minutes Medications reviewed and adjusted accordingly: Yes Anticipated Discharge Disposition: Home, Self Care Anticipated Discharge Timeframe: within 72 hours
[2020-11-06] MEDS ORDERED: CALCIUM ACETATE 667 MG CAPSULE PO SCH (20:00)
[2020-11-06] MEDS ORDERED: NIFEDIPINE 60 MG PO SCH (20:00)
[2020-11-06] MEDS ORDERED: LINACLOTIDE 290 MCG PO SCH (20:00)
[2020-11-06] MEDS ORDERED: METOLAZONE 10 MG PO SCH (20:00)
[2020-11-06] MEDS: OXYCODONE-ACETAMINOPHEN 5-325 MG TABLET PO PRN (21:54)
--- NOTE | 2020-11-06 21:54 | EKG REPORT ---
SEVERITY:- ABNORMAL ECG - SINUS TACHYCARDIA . FIRST DEGREE AV BLOCK LEFT ATRIAL ABNORMALITY IVCD, CONSIDER ATYPICAL LBBB : Confirmed by: Beatriz Leyva MD 06-Nov-2020 21:53:48
[2020-11-06] MEDS: CLONIDINE HCL 0.1 MG TABLET PO SCH (21:56)
[2020-11-06] MEDS: PANTOPRAZOLE SODIUM 40 MG TABLET.DR PO SCH (21:58)
[2020-11-06] MEDS: CLOPIDOGREL BISULFATE 75 MG TABLET PO SCH (21:59)
[2020-11-06] MEDS ORDERED: TAZAROTENE TP SCH (22:00)
[2020-11-06] MEDS: CARVEDILOL 6.25 MG TABLET PO SCH (22:00)
[2020-11-06] MEDS: RANOLAZINE 500 MG TAB.SR.12H PO SCH (22:01)
[2020-11-06] MEDS: PROMETHAZINE HCL 25 MG TABLET PO PRN (22:08)
[2020-11-06] MEDS ORDERED: FUROSEMIDE 40 MG TABLET ONE (22:57)
[2020-11-06] MEDS: HYDRALAZINE HCL 50 MG TABLET PO SCH (23:02)
[2020-11-06] MEDS: NIFEDIPINE 30 MG TAB.ER.24 PO SCH (23:07)
[2020-11-06] MEDS: FUROSEMIDE 80 MG TABLET PO SCH (23:09)
[2020-11-07] MEDS: CALCIUM ACETATE 667 MG CAPSULE PO SCH ×6 (02:03→21:13)
[2020-11-07] MEDS: METOLAZONE 5 MG TABLET PO SCH ×3 (02:03→21:12)
[2020-11-07] MEDS ORDERED: DEXTROSE 40% GEL 15 GM TUBE PO PRN (05:00)
[2020-11-07] MEDS ORDERED: DEXTROSE 50%-WATER SYRINGE 25 GM/50 ML DOSE IV PRN (05:00)
[2020-11-07] MEDS ORDERED: GLUCAGON,HUMAN RECOMB 1 MG INJ IM PRN (05:00)
[2020-11-07] MEDS ORDERED: DEXTROSE 40% GEL 15 GM TUBE X 2 PO PRN (05:00)
[2020-11-07] MEDS ORDERED: DEXTROSE 50%-WATER SYRINGE 12.5 GM/25 ML DOSE IV PRN (05:00)
[2020-11-07] MEDS: OXYCODONE-ACETAMINOPHEN 5-325 MG TABLET PO PRN ×3 (05:37→22:19)
[2020-11-07] MEDS: OXYCODONE HCL IR 5 MG TABLET PO PRN ×3 (05:38→22:20)
[2020-11-07] MEDS: HYDRALAZINE HCL 50 MG TABLET PO SCH ×3 (05:45→21:12)
[2020-11-07] MEDS: INSULIN LISPRO 100 UNIT/ML 3 ML VIAL SUBCUT SCH ×4 (08:53→21:12)
[2020-11-07] MEDS: PANTOPRAZOLE SODIUM 40 MG TABLET.DR PO SCH ×2 (10:20→21:13)
[2020-11-07] MEDS: CLOPIDOGREL BISULFATE 75 MG TABLET PO SCH (10:20)
[2020-11-07] MEDS: FUROSEMIDE 80 MG TABLET PO SCH ×3 (10:20→19:40)
[2020-11-07] MEDS: CLONIDINE HCL 0.1 MG TABLET PO SCH ×3 (10:20→19:40)
[2020-11-07] MEDS: CARVEDILOL 6.25 MG TABLET PO SCH ×2 (10:20→21:13)
[2020-11-07] MEDS: RANOLAZINE 500 MG TAB.SR.12H PO SCH ×2 (10:20→21:12)
[2020-11-07] MEDS: NIFEDIPINE 30 MG TAB.ER.24 PO SCH ×2 (10:21→21:12)
--- NOTE | 2020-11-07 22:27 | PDOC PROGRESS REPORT ---
Subjective Date:: 11/07/20 Subjective:: Patient seen by the bedside, she is comfortable with no new complaints Reason For Visit: ACUTE RESPIRATORY DISTRESS, TACHYCARDIA Physical Exam Vital Signs: Temp Pulse Resp BP Pulse Ox 98.7 F 101 H 17 117/68 96 11/07/20 19:46 11/07/20 19:20 11/07/20 19:20 11/07/20 19:20 11/07/20 19:20 Intake & Output 11/06/20 11/07/20 11/08/20 06:59 06:59 06:59 Intake Total 250 1154 Output Total 4100 Balance -3850 1154 Weight 119.7 kg General appearance: PRESENT: no acute distress Eye exam: PRESENT: PERRLA Respiratory exam: PRESENT: clear to auscultation freddy Cardiovascular exam: PRESENT: +S1, +S2 GI/Abdominal exam: PRESENT: soft Neurological exam: PRESENT: alert Results Laboratory Results: 11/06/20 10:12 11/06/20 10:12 11/06/20 10:12 Troponin I 0.689 Impressions: Chest X-Ray 11/06/20 10:20 IMPRESSION: Diffuse bilateral patchy parenchymal opacities that have increased since the radiograph from 11/04/2020. Differential and considerations include multifocal pneumonia and pulmonary edema. Assessment & Plan - Diagnosis (1) Acute diastolic heart failure Is this a current diagnosis for this admission?: Yes (2) End stage renal disease Is this a current diagnosis for this admission?: Yes - Time Time Spent with patient: 15-24 minutes Level of Care: IMCU Medications reviewed and adjusted accordingly: Yes Anticipated discharge: Home Anticipated DC Timeframe: within 72 hours
[2020-11-07] MEDS ORDERED: EPOETIN ALFA-EPBX 20,000 UNIT in SYRINGE, DISPOSABLE, 1 EACH IV PRN (22:34)
[2020-11-08] MEDS: CALCIUM ACETATE 667 MG CAPSULE PO SCH ×3 (05:00→21:48)
[2020-11-08] MEDS: HYDRALAZINE HCL 50 MG TABLET PO SCH ×3 (05:00→21:49)
[2020-11-08] MEDS: OXYCODONE HCL IR 5 MG TABLET PO PRN (05:01)
[2020-11-08] MEDS: OXYCODONE-ACETAMINOPHEN 5-325 MG TABLET PO PRN (05:02)
[2020-11-08 07:36] LABS: ANION GAP 15 (5-19); BLOOD UREA NITROGEN 63 mg/dL (7-20); CALCIUM 8.8 mg/dL (8.4-10.2); CARBON DIOXIDE 27 mmol/L (22-30); CHLORIDE 92 mmol/L (98-107); GLUCOSE 234 mg/dL (75-110)
[2020-11-08 07:43] LABS: POTASSIUM 6.4 mmol/L (3.6-5.0)
[2020-11-08] MEDS: INSULIN LISPRO 100 UNIT/ML 3 ML VIAL SUBCUT SCH ×4 (08:23→21:49)
[2020-11-08 09:00] LABS: HEMATOCRIT 23.1 % (36.0-47.0); MEAN CORPUSCULAR HEMOGLOBIN 29.1 pg (27.0-33.4); MEAN CORPUSCULAR HGB CONC 32.4 g/dL (32.0-36.0); MEAN CORPUSCULAR VOLUME 90 fl (80-97); PLATELET COUNT 279 10^3/uL (150-450); RED BLOOD COUNT 2.57 10^6/uL (3.72-5.28); RED CELL DISTRIBUTION WIDTH 16.9 % (11.5-14.0); WHITE BLOOD COUNT 10.2 10^3/uL (4.0-10.5)
[2020-11-08 09:02] LABS: HEMOGLOBIN 7.5 g/dL (12.0-15.5)
[2020-11-08] MEDS: CARVEDILOL 6.25 MG TABLET PO SCH ×2 (10:12→21:54)
[2020-11-08] MEDS: RANOLAZINE 500 MG TAB.SR.12H PO SCH ×2 (10:12→21:48)
[2020-11-08] MEDS: FUROSEMIDE 80 MG TABLET PO SCH ×3 (10:12→18:03)
[2020-11-08] MEDS: PANTOPRAZOLE SODIUM 40 MG TABLET.DR PO SCH ×2 (10:12→21:49)
[2020-11-08] MEDS: METOLAZONE 5 MG TABLET PO SCH ×2 (10:12→21:49)
[2020-11-08] MEDS: CLOPIDOGREL BISULFATE 75 MG TABLET PO SCH (10:12)
[2020-11-08] MEDS: NIFEDIPINE 30 MG TAB.ER.24 PO SCH ×2 (10:12→21:48)
[2020-11-08] MEDS: CLONIDINE HCL 0.1 MG TABLET PO SCH ×3 (10:12→18:03)
[2020-11-08] MEDS: PROMETHAZINE HCL 25 MG TABLET PO PRN (11:54)
--- NOTE | 2020-11-08 21:15 | PDOC PROGRESS REPORT ---
Subjective Date:: 11/08/20 Reason For Visit: Seen today on dialysis. Feeling generally a whole lots better. Her dyspnea is lots better. Denies any chest pains. Labs and meds were reviewed .Dialysis orders were reviewed with the embedded software programmer. Physical Exam Vital Signs: Temp Pulse Resp BP Pulse Ox 97.6 F 106 H 17 118/50 L 100 11/08/20 19:13 11/08/20 19:13 11/08/20 19:13 11/08/20 19:13 11/08/20 19:13 Intake & Output 11/07/20 11/08/20 11/09/20 06:59 06:59 06:59 Intake Total 250 1154 355 Output Total 4100 0 5600 Balance -3850 1154 -5245 Weight 119.7 kg 120.7 kg General appearance: PRESENT: no acute distress Respiratory exam: PRESENT: clear to auscultation freddy, decreased breath sounds. ABSENT: crackles Cardiovascular exam: PRESENT: +S1, +S2 GI/Abdominal exam: PRESENT: normal bowel sounds, soft. ABSENT: organomegaly, rebound, tenderness Extremities exam: ABSENT: pedal edema Neurological exam: PRESENT: alert, awake, oriented to person, oriented to place, oriented to time Results Laboratory Results: 11/08/20 07:56 11/08/20 05:57 11/08/20 11/08/20 11/08/20 05:57 05:57 07:56 WBC Cancelled 10.2 RBC Cancelled 2.57 L Hgb Cancelled 7.5 L Hct Cancelled 23.1 L MCV Cancelled 90 MCH Cancelled 29.1 MCHC Cancelled 32.4 RDW Cancelled 16.9 H Plt Count Cancelled 279 Sodium 134.0 L Potassium 6.4 H* Chloride 92 L Carbon Dioxide 27 Anion Gap 15 BUN 63 H Creatinine 11.15 H Est GFR ( Amer) 5 L Glucose 234 H Calcium 8.8 11/06/20 10:12 Troponin I 0.689 Impressions: Chest X-Ray 11/06/20 10:20 IMPRESSION: Diffuse bilateral patchy parenchymal opacities that have increased since the radiograph from 11/04/2020. Differential and considerations include multifocal pneumonia and pulmonary edema. Assessment & Plan - Diagnosis (1) Acute respiratory distress Plan: Much improved compared to her admission and response to dialysis and ultrafiltration. (2) Acute pulmonary edema Plan: She is improving as this is a second dialysis and during the first dialysis we will able to remove close to 5 L of fluid. She should improve further after today's dialysis.Advised on compliance and keeping up with her dialysis treatment and strict compliance with diet and fluid intake. Unfortunately she has not been doing this and has been having recurring admissions which is so dangerous for her which I explained to her at length. (3) Hyperkalemia Plan: See response to dialysis. Advised tight blood sugar control. Advised dietary compliance. (4) ESRD on dialysis Plan: Patient currently on dialysis being supervised. She is undergoing dialysis without any uneventful issues. We will plan to remove 4-5 L of fluid as tolerated. Dialysis orders were reviewed with the treating dialysis nurse. 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 If his blood sugars not controlled her potassium is also gone to remain high. (6) Essential (primary) hypertension Plan: Controlled. Monitor. (7) Medical non-compliance Plan: Advised better compliance as she has had multiple and recurring admissions for similar situations in the past because of severe noncompliance with diet and medications and missing dialysis treatments. (8) Pneumonia Qualifiers: Pneumonia type: due to unspecified organism Laterality: unspecified laterality Lung location: unspecified part of lung Qualified Code(s): J18.9 - Pneumonia, unspecified organism Plan: This could be a differential given x-ray features. Monitor closely and recommend testing for Covid. (9) Anemia in chronic kidney disease (CKD) Qualifiers: Plan: Adjust erythropoietin. (10) Renal osteodystrophy Plan: We will get phosphorus and PTH and see what adjustment needs to be done.
--- NOTE | 2020-11-08 23:03 | PDOC PROGRESS REPORT ---
Subjective Date:: 11/08/20 Subjective:: Patient seen by the bedside,No new complaints Reason For Visit: ACUTE RESPIRATORY DISTRESS, TACHYCARDIA Physical Exam Vital Signs: Temp Pulse Resp BP Pulse Ox 99.1 F 96 16 109/53 L 99 11/08/20 21:19 11/08/20 21:19 11/08/20 21:19 11/08/20 21:19 11/08/20 21:19 Intake & Output 11/07/20 11/08/20 11/09/20 06:59 06:59 06:59 Intake Total 250 1154 355 Output Total 4100 0 5600 Balance -3850 1154 -5295 Weight 119.7 kg 120.7 kg General appearance: PRESENT: no acute distress Eye exam: PRESENT: PERRLA Respiratory exam: PRESENT: clear to auscultation freddy Cardiovascular exam: PRESENT: +S1, +S2 GI/Abdominal exam: PRESENT: soft Neurological exam: PRESENT: alert Results Laboratory Results: 11/08/20 07:56 11/08/20 05:57 11/08/20 11/08/20 11/08/20 05:57 05:57 07:56 WBC Cancelled 10.2 RBC Cancelled 2.57 L Hgb Cancelled 7.5 L Hct Cancelled 23.1 L MCV Cancelled 90 MCH Cancelled 29.1 MCHC Cancelled 32.4 RDW Cancelled 16.9 H Plt Count Cancelled 279 Sodium 134.0 L Potassium 6.4 H* Chloride 92 L Carbon Dioxide 27 Anion Gap 15 BUN 63 H Creatinine 11.15 H Est GFR ( Amer) 5 L Glucose 234 H Calcium 8.8 11/06/20 10:12 Troponin I 0.689 Impressions: Chest X-Ray 11/06/20 10:20 IMPRESSION: Diffuse bilateral patchy parenchymal opacities that have increased since the radiograph from 11/04/2020. Differential and considerations include multifocal pneumonia and pulmonary edema. Assessment & Plan - Diagnosis (1) Acute diastolic heart failure Is this a current diagnosis for this admission?: Yes (2) End stage renal disease Is this a current diagnosis for this admission?: Yes - Time Time Spent with patient: Less than 15 minutes Level of Care: MEDICAL Medications reviewed and adjusted accordingly: Yes Anticipated discharge: Home Anticipated DC Timeframe: within 24 hours
[2020-11-09] MEDS: OXYCODONE-ACETAMINOPHEN 5-325 MG TABLET PO PRN ×2 (00:03→06:16)
[2020-11-09] MEDS: OXYCODONE HCL IR 5 MG TABLET PO PRN ×2 (00:03→06:16)
[2020-11-09] MEDS: PROMETHAZINE HCL 25 MG TABLET PO PRN (04:27)
[2020-11-09] MEDS: CALCIUM ACETATE 667 MG CAPSULE PO SCH ×2 (06:17→13:32)
[2020-11-09] MEDS: HYDRALAZINE HCL 50 MG TABLET PO SCH ×2 (06:17→13:31)
[2020-11-09] MEDS: INSULIN LISPRO 100 UNIT/ML 3 ML VIAL SUBCUT SCH ×3 (08:10→15:58)
[2020-11-09] MEDS: CARVEDILOL 6.25 MG TABLET PO SCH (10:21)
[2020-11-09] MEDS: PANTOPRAZOLE SODIUM 40 MG TABLET.DR PO SCH (10:21)
[2020-11-09] MEDS: FUROSEMIDE 80 MG TABLET PO SCH ×2 (10:21→13:32)
[2020-11-09] MEDS: RANOLAZINE 500 MG TAB.SR.12H PO SCH (10:21)
[2020-11-09] MEDS: CLONIDINE HCL 0.1 MG TABLET PO SCH ×2 (10:21→13:31)
[2020-11-09] MEDS: METOLAZONE 5 MG TABLET PO SCH (10:22)
[2020-11-09] MEDS: CLOPIDOGREL BISULFATE 75 MG TABLET PO SCH (10:22)
[2020-11-09] MEDS: NIFEDIPINE 30 MG TAB.ER.24 PO SCH (10:28)
[2020-11-09 15:49] VITALS: BP 113/58
--- NOTE | 2020-11-09 17:18 | PDOC DISCHARGE SUMMARY ---
Impression - Admit/DC Date/PCP Admission Date/Primary Care Provider: 11/06/20 16:32 HILARY HERNANDEZ MD Discharge Date: 11/09/20 - Discharge Diagnosis (1) Acute diastolic heart failure Is this a current diagnosis for this admission?: Yes (2) End stage renal disease Is this a current diagnosis for this admission?: Yes (3) Acute hypoxemic respiratory failure Is this a current diagnosis for this admission?: Yes (4) Acute pulmonary edema Is this a current diagnosis for this admission?: Yes - Additional Information Discharge Diet: Cardiac, Diabetic, Other (Comments) Discharge Activity: Activity As Tolerated, Balance Activity w/Rest, Weigh Daily Referrals: HILARY HERNANDEZ MD [Primary Care Provider] - 11/19/20 10:00 am Home Medications: Calcium Acetate [Phoslo 667 mg Capsule] 1,334 mg PO .BIDWITHSNACKS 09/25/19 Calcium Acetate [Phoslo 667 mg Capsule] 2,001 mg PO Q8 09/25/19 Oxycodone HCl/Acetaminophen [Percocet 7.5-325 mg Tablet] 1 each PO QIDP PRN 09/25/19 Metolazone 10 mg PO BID 10/25/19 Clopidogrel Bisulfate [Plavix 75 mg Tablet] 75 mg PO DAILY 11/29/19 Linaclotide [Linzess] 290 mcg PO DAILY 07/29/20 Nifedipine [Nifedipine ER] 60 mg PO Q12 08/05/20 Ranolazine [Ranexa 500 mg Tab.sr] 500 mg PO Q12 #60 tab.sr.12h 08/08/20 Carvedilol [Coreg 6.25 mg Tablet] 6.25 mg PO Q12 10/22/20 Clonidine HCl [Catapres] 0.1 mg PO TID 10/22/20 Furosemide [Lasix 80 mg Tablet] 80 mg PO TIDP PRN 10/22/20 Hydralazine HCl [Apresoline 50 mg Tablet] 50 mg PO Q8 10/22/20 Pantoprazole Sodium [Protonix [address] Tablet] 40 mg PO Q12 10/22/20 Promethazine HCl [Phenergan 25 mg Tablet] 25 mg PO Q6HP PRN 10/22/20 Tazarotene [Tazorac] 1 applic TP QHS 10/22/20 Cephalexin Monohydrate [Keflex 500 mg Capsule] 500 mg PO ASDIR 7 Days #14 capsule 11/04/20 History of Present Illiness History of Present Illness: ERICH GOODMAN is a 35 year old female, Patient is well-known to this hospital with multiple hospitalization for volume overload related condition, he presented in the usual fashion of shortness of breath, pulmonary edema, hyperkalemia, he required emergency hemodialysis. He was seen by derivatives trader, she was dialyzed in the emergency room Hospital Course Hospital Course: Patient was admitted for the management of acute hypoxemic Respiratory failure, pulmonary edema, acute diastolic heart failure, she has end-stage renal disease on maintenance hemodialysis. She was seen by nephrology she underwent dialysis on this admission her condition improved after the first episode of hemodialysis, she want to go home today she is stable Physical Exam Vital Signs: Temp Pulse Resp BP Pulse Ox 98.1 F 89 16 113/58 L 97 11/09/20 15:47 11/09/20 15:47 11/09/20 15:47 11/09/20 15:47 11/09/20 15:47 Intake & Output 11/08/20 11/09/20 11/10/20 06:59 06:59 06:59 Intake Total 1154 875 360 Output Total 0 5600 Balance 1154 -4725 360 Weight 120.7 kg 115.6 kg General appearance: PRESENT: no acute distress Eye exam: PRESENT: PERRLA Respiratory exam: PRESENT: clear to auscultation freddy Cardiovascular exam: PRESENT: +S1, +S2 GI/Abdominal exam: PRESENT: soft Neurological exam: PRESENT: alert Results Laboratory Results: WBC 10.2 10^3/uL (4.0-10.5) 11/08/20 07:56 RBC 2.57 10^6/uL (3.72-5.28) L 11/08/20 07:56 Hgb 7.5 g/dL (12.0-15.5) L 11/08/20 07:56 Hct 23.1 % (36.0-47.0) L 11/08/20 07:56 MCV 90 fl (80-97) 11/08/20 07:56 MCH 29.1 pg (27.0-33.4) 11/08/20 07:56 MCHC 32.4 g/dL (32.0-36.0) 11/08/20 07:56 RDW 16.9 % (11.5-14.0) H 11/08/20 07:56 Plt Count 279 10^3/uL (150-450) 11/08/20 07:56 Lymph % (Auto) 16.3 % (13-45) 11/06/20 10:12 Dixon % (Auto) 6.3 % (3-13) 11/06/20 10:12 Eos % (Auto) 9.8 % (0-6) H 11/06/20 10:12 Baso % (Auto) 0.5 % (0-2) 11/06/20 10:12 Absolute Neuts (auto) 6.2 10^3/uL (1.7-8.2) 11/06/20 10:12 Absolute Lymphs (auto) 1.5 10^3/uL (0.5-4.7) 11/06/20 10:12 Absolute Monos (auto) 0.6 10^3/uL (0.1-1.4) 11/06/20 10:12 Absolute Eos (auto) 0.9 10^3/uL (0.0-0.6) H 11/06/20 10:12 Absolute Basos (auto) 0.0 10^3/uL (0.0-0.2) 11/06/20 10:12 Seg Neutrophils % 67.1 % (42-78) 11/06/20 10:12 Platelet Estimate Cancelled 11/08/20 05:57 Sodium 134.0 mmol/L (137-145) L 11/08/20 05:57 Potassium 6.4 mmol/L (3.6-5.0) H* 11/08/20 05:57 Chloride 92 mmol/L (98-107) L 11/08/20 05:57 Carbon Dioxide 27 mmol/L (22-30) 11/08/20 05:57 Anion Gap 15 (5-19) 11/08/20 05:57 BUN 63 mg/dL (7-20) H 11/08/20 05:57 Creatinine 11.15 mg/dL (0.52-1.25) H 11/08/20 05:57 Est GFR ( Amer) 5 (>60) L 11/08/20 05:57 Est GFR (MDRD) Non-Af 4 (>60) L 11/08/20 05:57 Glucose 234 mg/dL (75-110) H 11/08/20 05:57 POC Glucose 272 mg/dL (70-110) H 11/09/20 15:36 Calcium 8.8 mg/dL (8.4-10.2) 11/08/20 05:57 Troponin I 0.689 ng/mL 11/06/20 10:12 Slides for Path Review Cancelled 11/08/20 05:57 11/06/20 10:12 Troponin I 0.689 Impressions: Chest X-Ray 11/06/20 10:20 IMPRESSION: Diffuse bilateral patchy parenchymal opacities that have increased since the radiograph from 11/04/2020. Differential and considerations include multifocal pneumonia and pulmonary edema. Stroke Is this a Stroke Patient?: No Acute Heart Failure Is this a Heart Failure Patient?: No
== END 2020-11-09 16:16 | disposition home or self-care (01) | DRG 291 ==
LOC: ER 09:34 → EH 16:32 → 3S 23:33 → 4S 11-08 20:48
PROVIDERS: ADMIT Internal Medicine; ATTEND Internal Medicine
PROC: 5A1D70Z Performance of Urinary Filtration, Intermittent, Less than 6 Hours Per Day (ICD-10-PCS; principal; 2020-11-06)
PROC: 5A09357 Assistance with Respiratory Ventilation, Less than 24 Consecutive Hours, Continuous Positive Airway Pressure (ICD-10-PCS; 2020-11-06)
PROC: 5A1D70Z Performance of Urinary Filtration, Intermittent, Less than 6 Hours Per Day (ICD-10-PCS; 2020-11-08)
DX: I13.2 Hypertensive heart and chronic kidney disease with heart failure and with stage 5 chronic kidney disease, or end stage renal disease (principal); J96.01 Acute respiratory failure with hypoxia; N18.6 End stage renal disease; I50.33 Acute on chronic diastolic (congestive) heart failure; N25.81 Secondary hyperparathyroidism of renal origin; E10.22 Type 1 diabetes mellitus with diabetic chronic kidney disease; Z99.2 Dependence on renal dialysis; D63.1 Anemia in chronic kidney disease; R00.0 Tachycardia, unspecified; I25.10 Atherosclerotic heart disease of native coronary artery without angina pectoris; N25.0 Renal osteodystrophy; I25.2 Old myocardial infarction; J45.909 Unspecified asthma, uncomplicated; Z87.01 Personal history of pneumonia (recurrent); F32.9 Major depressive disorder, single episode, unspecified; E87.5 Hyperkalemia; Z88.6 Allergy status to analgesic agent; Z88.5 Allergy status to narcotic agent; Z88.8 Allergy status to other drugs, medicaments and biological substances; Z79.899 Other long term (current) drug therapy; Z79.891 Long term (current) use of opiate analgesic; Z79.02 Long term (current) use of antithrombotics/antiplatelets; Z91.14 Patient's other noncompliance with medication regimen; Z91.11 Patient's noncompliance with dietary regimen; Z91.15 Patient's noncompliance with renal dialysis; Z88.1 Allergy status to other antibiotic agents
CPT/HCPCS: 36415; 71045; 80048; 82962; 84484; 85025; 85027; 93005; 93010; 94660; 96374; 96375; 96376; 99285; G0257; J1815; J2060; J2270; J2405; J3490; Q5105

== ENCOUNTER 2020-11-16 09:46 | Emergency (ER) | payer MEDICARE, MEDICAID ==
--- NOTE | 2020-11-16 10:30 | ER Document Report ---
ED Medical Screen (RME) - General Chief Complaint: Chest Pain Stated Complaint: CHEST PAIN/SHORTNESS OF BREATH Time Seen by Provider: 11/16/20 10:28 Mode of Arrival: Wheelchair Information source: Patient Notes: 35-year-old female presented to ED for complaint of chest pain. She is supposed to be a dialysis at this time. But she states the chest pain started last night and she was having trouble sleeping and then she it was still having chest pain this morning so she came to the receiving instead of her dialysis. She states last time she had dialysis was Wednesday. She is alert oriented she is O2 3 L which is her baseline. She is alert oriented respirations regular nonlabored at this time. We will get labs chest x-ray she has had a EKG and we will have her seen by one of the providers. I have greeted and performed a rapid initial assessment of this patient. A comprehensive ED assessment and evaluation of the patient, analysis of test results and completion of medical decision making process will be conducted by an additional ED providers. TRAVEL OUTSIDE OF THE [place] IN LAST 30 DAYS: No - Related Data Allergies/Adverse Reactions: aspirin [Aspirin] Allergy (Verified 11/04/20 10:47) Anaphylaxis ciprofloxacin [From Cipro] Allergy (Verified 11/04/20 10:47) Anaphylaxis clindamycin [Clindamycin] Allergy (Verified 11/04/20 10:47) hydrocodone [From Vicodin] Allergy (Verified 11/04/20 10:47) ibuprofen [From Motrin] Allergy (Verified 11/04/20 10:47) Anaphylaxis lidocaine [From Lidoderm] Allergy (Verified 11/04/20 10:47) Generalized rash tramadol HCl [From Ultram] Allergy (Verified 11/04/20 10:47) vancomycin [Vancomycin] Allergy (Verified 11/04/20 10:47) Shortness of Breath nitroglycerin [Nitroglycerin] Adverse Reaction (Intermediate, Verified 11/04/20 10:47) Joint pain Past Medical History - Social History Family history: Reviewed & Not Pertinent - Past Medical History Cardiac Medical History: Reports: Hx Congestive Heart Failure, Hx Coronary Artery Disease, Hx Heart Attack, Hx Hypertension, Hx Heart Murmur Pulmonary Medical History: Reports: Hx Asthma, Hx Pneumonia Neurological Medical History: Reports: Hx Migraine, Hx Seizures - only r/t low calcium. Denies: Hx Parkinson's Disease Endocrine Medical History: Reports: Hx Diabetes Mellitus Type 1, Hx Diabetes Mellitus Type 2 Renal/ Medical History: Reports: Hx End Stage Renal Disease - On hemodialysis M-W-, Hx Hemodialysis - MWF, Hx Ovarian Cysts. Denies: Hx Peritoneal Dialysis Malignancy Medical History: GI Medical History: Reports: Hx Gastritis Musculoskeltal Medical History: Skin Medical History: Reports Hx Psoriasis Psychiatric Medical History: Reports: Hx Depression Traumatic Medical History: Infectious Medical History: Past Surgical History: Reports: Hx Appendectomy, Hx Cholecystectomy, Hx Vascular Surgery - Lt AV Fistula and graft; Rt AV fistula - Immunizations Immunizations up to date: Yes Hx Diphtheria, Pertussis, Tetanus Vaccination: Yes Physical Exam - Vital signs Vitals: Temp Pulse Resp BP Pulse Ox 97.9 F 95 20 168/68 H 100 11/16/20 09:56 11/16/20 09:56 11/16/20 09:56 11/16/20 09:56 11/16/20 09:56 Course - Vital Signs Vital signs: Temp Pulse Resp BP Pulse Ox 97.9 F 95 20 168/68 H 100 11/16/20 09:56 11/16/20 09:56 11/16/20 09:56 11/16/20 09:56 11/16/20 09:56
--- NOTE | 2020-11-16 11:33 | RADIOLOGY REPORT (SQ) ---
EXAM DESCRIPTION: CHEST 2 VIEWS IMAGES COMPLETED DATE/TIME: 11/16/2020 10:49 am REASON FOR STUDY: Chest pain COMPARISON: 11/06/2020 EXAM PARAMETERS: NUMBER OF VIEWS: two views TECHNIQUE: Digital Frontal and Lateral radiographic views of the chest acquired. RADIATION DOSE: NA LIMITATIONS: none FINDINGS: LUNGS AND PLEURA: Re- demonstration of multifocal airspace opacities noting improved aerat ion of the upper lobes. No pleural effusion. No pneumothorax. MEDIASTINUM AND HILAR STRUCTURES: No masses or contour abnormalities. HEART AND VASCULAR STRUCTURES: Persistent cardiomegaly. BONES: No acute findings. HARDWARE: Right subclavian and axillary stents. OTHER: No other significant finding. IMPRESSION: Somewhat improved aeration of the upper lobes. Otherwise stable radiographic appearance of the chest. TECHNICAL DOCUMENTATION: JOB ID: [id number] 2010 [employer]- All Rights Reserved Reading location - IP/workstation name: [email or web address]
[2020-11-16 11:49] LABS: ABSOLUTE BASOPHILS # (AUTO) 0.1 10^3/uL (0.0-0.2); ABSOLUTE EOSINOPHILS # (AUTO) 0.7 10^3/uL (0.0-0.6); ABSOLUTE LYMPHOCYTES (AUTO) 1.5 10^3/uL (0.5-4.7); ABSOLUTE MONOCYTES (AUTO) 0.5 10^3/uL (0.1-1.4); ABSOLUTE NEUT (AUTO) 6.2 10^3/uL (1.7-8.2); BASOPHILS % (AUTO) 0.8 % (0-2); EOSINOPHILS % (AUTO) 8.2 % (0-6); HEMATOCRIT 28.7 % (36.0-47.0); HEMOGLOBIN 9.4 g/dL (12.0-15.5); LYMPHOCYTES % (AUTO) 17.1 % (13-45); MEAN CORPUSCULAR HEMOGLOBIN 28.7 pg (27.0-33.4); MEAN CORPUSCULAR HGB CONC 32.8 g/dL (32.0-36.0); MEAN CORPUSCULAR VOLUME 88 fl (80-97); MONOCYTES % (AUTO) 5.4 % (3-13); PLATELET COUNT 381 10^3/uL (150-450); RED BLOOD COUNT 3.27 10^6/uL (3.72-5.28); RED CELL DISTRIBUTION WIDTH 16.8 % (11.5-14.0); SEGMENTED NEUTROPHILS % (AUTO) 68.5 % (42-78); TOTAL CELLS COUNTED % (AUTO) 100 %; WHITE BLOOD COUNT 9.1 10^3/uL (4.0-10.5)
[2020-11-16 12:09] LABS: ALBUMIN 4.3 g/dL (3.5-5.0); ALKALINE PHOSPHATASE 71 U/L (38-126); ANION GAP 16 (5-19); ASPARTATE AMINO TRANSFERASE 14 U/L (14-36); BILIRUBIN,DIRECT 0.4 mg/dL (0.0-0.4); BILIRUBIN,TOTAL 0.4 mg/dL (0.2-1.3); BLOOD UREA NITROGEN 54 mg/dL (7-20); CALCIUM 9.6 mg/dL (8.4-10.2); CARBON DIOXIDE 28 mmol/L (22-30); CHLORIDE 92 mmol/L (98-107); GLUCOSE 213 mg/dL (75-110); POTASSIUM 5.5 mmol/L (3.6-5.0)
--- NOTE | 2020-11-16 15:41 | EKG REPORT ---
SEVERITY:- ABNORMAL ECG - SINUS RHYTHM FIRST DEGREE AV BLOCK PROBABLE LEFT ATRIAL ABNORMALITY BORDERLINE T ABNORMALITIES, LATERAL LEADS BORDERLINE PROLONGED QT INTERVAL IVCD : Confirmed by: Ciro Beckford MD 16-Nov-2020 15:40:32
--- NOTE | 2020-11-16 15:53 | ER Document Report ---
ED General - General Chief Complaint: Chest Pain Stated Complaint: CHEST PAIN/SHORTNESS OF BREATH Time Seen by Provider: 11/16/20 10:28 Mode of Arrival: Wheelchair Notes: 35-year-old woman presents to the emergency department with a complaint of chest pain which began last night approximately midnight 11/15/2020. She states that she took an aspirin the pain improved she went back to bed and did well until this morning when she had a recurrence of pain involving the right upper chest wall and the right upper shoulder arm area. She is a renal dialysis patient her shunt is not located in the right arm. She complains of some numbness and tingling in her hand which has been ongoing for a few months. She states that she is admitted to the staff at the dialysis unit but has not mentioned it to her physician. She denies diaphoresis, nausea vomiting or dizziness. Pain presently is a 7/10 and she appears to be in less distress. Her dialysis schedule is Wednesday normally, because of the holiday she has been scheduled for dialysis tomorrow. He has allergies to ibuprofen hydrocodon and clindamycin. Chart notes that she is allergic to aspirin, however the patient has taken aspirin without any adverse reactions. TRAVEL OUTSIDE OF THE [place] IN LAST 30 DAYS: No - Related Data Allergies/Adverse Reactions: aspirin [Aspirin] Allergy (Verified 11/04/20 10:47) Anaphylaxis ciprofloxacin [From Cipro] Allergy (Verified 11/04/20 10:47) Anaphylaxis clindamycin [Clindamycin] Allergy (Verified 11/04/20 10:47) hydrocodone [From Vicodin] Allergy (Verified 11/04/20 10:47) ibuprofen [From Motrin] Allergy (Verified 11/04/20 10:47) Anaphylaxis lidocaine [From Lidoderm] Allergy (Verified 11/04/20 10:47) Generalized rash tramadol HCl [From Ultram] Allergy (Verified 11/04/20 10:47) vancomycin [Vancomycin] Allergy (Verified 11/04/20 10:47) Shortness of Breath nitroglycerin [Nitroglycerin] Adverse Reaction (Intermediate, Verified 11/04/20 10:47) Joint pain Past Medical History - General Information source: Patient - Social History Smoking Status: Unknown if Ever Smoked Family History: Reviewed & Not Pertinent, Hypertension - Past Medical History Cardiac Medical History: Reports: Hx Congestive Heart Failure, Hx Coronary Artery Disease, Hx Heart Attack, Hx Hypertension, Hx Heart Murmur Pulmonary Medical History: Reports: Hx Asthma, Hx Pneumonia Neurological Medical History: Reports: Hx Migraine, Hx Seizures - only r/t low calcium. Denies: Hx Parkinson's Disease Endocrine Medical History: Reports: Hx Diabetes Mellitus Type 1, Hx Diabetes Mellitus Type 2 Renal/ Medical History: Reports: Hx End Stage Renal Disease - On hemodialysis M-W-F, Hx Hemodialysis - MWF, Hx Ovarian Cysts. Denies: Hx Peritoneal Dialysis Malignancy Medical History: GI Medical History: Reports: Hx Gastritis Musculoskeletal Medical History: Skin Medical History: Reports Hx Psoriasis Psychiatric Medical History: Reports: Hx Depression Traumatic Medical History: Infectious Medical History: Past Surgical History: Reports: Hx Appendectomy, Hx Cholecystectomy, Hx Vascular Surgery - Lt AV Fistula and graft; Rt AV fistula - Immunizations Immunizations up to date: Yes Hx Diphtheria, Pertussis, Tetanus Vaccination: Yes Hx Pneumococcal Vaccination: 08/22/11 Review of Systems - Review of Systems Notes: Constitutional: Negative for fever. HENT: Negative for sore throat. Eyes: Negative for visual changes. Cardiovascular: Negative for chest pain. Chest: See HPI Respiratory: Negative for shortness of breath. Gastrointestinal: Negative for abdominal pain, vomiting or diarrhea. Genitourinary: Negative for dysuria. Musculoskeletal: Negative for back pain. Skin: Negative for rash. Neurological: Negative for headaches, weakness or numbness. 10 point ROS negative except as marked above and in HPI. Physical Exam - Vital signs Vitals: Temp Pulse Resp BP Pulse Ox 97.9 F 95 20 168/68 H 100 11/16/20 09:56 11/16/20 09:56 11/16/20 09:56 11/16/20 09:56 11/16/20 09:56 - Notes Notes: PHYSICAL EXAMINATION: Physical Exam: General: Well-nourished well-developed 41-year-old woman in no acute distress HEENT: NC/AT, pupils equal round and reactive to light, MM moist,nares clear, oropharynx clear, airway patent Neck: supple, no adenopathy, no masses. Good range of motion Lungs: clear, no wheezing, no rales no rhonchi Chest: Tenderness over the right upper pectoralis and mid sternal region of the chest CVS: Regular rate and rhythm no murmur gallop or rub Abdomen: Soft, active, nontender, no masses, no hepatosplenomegaly Ext: AV shunt right arm, good thrill, no edema, clubbing or cyanosis. 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 Course - Re-evaluation Re-evalutation: 11/16/20 18:10 Patient has palpable chest and upper extremity right sided pain. Troponin was 0.230 and repeated 0.270. These are done approximately 5 hours apart. Review of her chart does reveal that she had troponin in the 0.6 range on 11/06/2020, she is a dialysis patient and may run higher than normal baseline troponin levels. Given her increased value I am comfortable sending her home, she has dialysis scheduled tomorrow morning and she is a very astute patient who will return to the hospital if her symptoms are worsening or not improving. X-ray today shows interval improvement from her fluid overload status. Potassium is 5.4, the patient is scheduled for dialysis tomorrow and no intervention is given. - Vital Signs Vital signs: Temp Pulse Resp BP Pulse Ox 97.5 F 93 20 154/87 H 100 11/16/20 16:35 11/16/20 16:35 11/16/20 16:35 11/16/20 16:35 11/16/20 16:35 - Laboratory Results Result Diagrams: 11/16/20 11:00 11/16/20 11:00 Laboratory Results Interpreted: 11/16/20 11/16/20 11:00 11:00 RBC 3.27 L Hgb 9.4 L Hct 28.7 L RDW 16.8 H Eos % (Auto) 8.2 H Absolute Eos (auto) 0.7 H Sodium 136.1 L Potassium 5.5 H Chloride 92 L BUN 54 H Creatinine 11.39 H Est GFR ( Amer) 5 L Est GFR (MDRD) Non-Af 4 L Glucose 213 H Critical Laboratory Results Reviewed: No Critical Results - Radiology Results Radiology Results Interpreted: 11/16/20 15:53 Chest X-Ray 11/16/20 10:30 IMPRESSION: Somewhat improved aeration of the upper lobes. Otherwise stable radiographic appearance of the chest. Critical Radiology Results Reviewed: No Critical Results - EKG Interpretation by Me Rate: Normal - EKG interpreted by Dr. Colbert: Normal sinus rhythm, rate 92, TX interval 216 ms first-degree AV block QT interval 400 ms, normal axis, probable CHRISTINA, IVCD, compared to EKG dated 11/06/2020 no significant interval changes. Interpretation: Abnormal EKG Discharge - Discharge Clinical Impression: Chest pain of uncertain etiology, ESRD (end stage renal disease) on dialysis Condition: Good Disposition: HOME, SELF-CARE Instructions: Chest Pain of Unclear Cause ([facility]) Additional Instructions: You are seen in the emergency department with episodic chest pain and right- sided extremity discomfort. Please use your usual medications for pain, follow- up with your doctor as needed. If your symptoms are worsening or if you have other concerns you may return to the emergency department for further evaluation and treatment You have dialysis in the morning please do not miss that session. HOME CARE INSTRUCTIONS & INFORMATION: Thank you for choosing us for your medical needs. We hope you're satisfied with the care you received. After you leave, you must properly care for your problem and, at the same time, observe its progress. Any condition can change. Some illnesses can change rapidly over hours or days. If your condition worsens, return to the Emergency Department or see your physician promptly. ABOUT YOUR X-RAYS AND EKG'S: If you had an EKG or X-rays taken, they have been read by the Emergency Physician. The X-rays and EKG's will also be read by a Radiologist or Safety Scientist within 24 hours. If discrepancies are noted, you will be notified by telephone. Please be certain the ED has a correct telephone number & address where you can be reached. Also, realize that some fractures or abnormalities do not show up on initial X-rays. If your symptoms continue, see your physician. ABOUT YOUR LABORATORY TEST: If you had laboratory tests, the results have been reviewed by the Emergency Physician. Some test results (for example cultures) may not be available for several days. You will be contacted if any test result shows you need additional treatment. Please be certain the ED has a correct telephone number and address where you can be reached. ABOUT YOUR MEDICATIONS: You will receive instructions on how to take your medicine on the prescription label you receive. Additional information may be provided by the Pharmacy. If you have questions afterwards, call the ED for clarification or further instructions. Some prescribed medications may cause drowsiness. Do not perform tasks such as driving a car or operating machinery without consulting your Pharmacist. If you feel you need a refill of pain medication, your condition will need re-evaluation. Please do not call for a refill of any medication. ABOUT YOUR SIGNATURE: Signature of this document acknowledges to followin. Understanding that you received emergency treatment and that you may be released before al medical problems are known or treated. Please be certain the ED has a correct phone number & address where you can be reached. 2. Acknowledgement that you will arrange for follow-up care as recommended. 3. Authorization for the Emergency Physician to provide information to your follow-up Physician in order to maximize your care. AT ANY TIME, IF YOUR SYMPTOMS CHANGE SIGNIFICANTLY OR WORSEN OR YOU DEVELOP NEW SYMPTOMS, RETURN TO THE EMERGENCY DEPARTMENT IMMEDIATELY FOR RE-EVALUATION. OUR GOAL IS TO PROVIDE EXCELLENT MEDICAL CARE! WE HOPE THAT WE HAVE MET YOUR EXPECTATIONS DURING YOUR EMERGENCY DEPARTMENT VISIT AND THAT YOU FEEL YOU HAVE RECEIVED EXCELLENT CARE!
[2020-11-16] MEDS ORDERED: OXYCODONE-ACETAMINOPHEN 5-325 MG TABLET PO ONE (16:08)
[2020-11-16 19:01] VITALS: BP 145/88
== END 2020-11-16 19:01 | disposition home or self-care (01) ==
LOC: ER 09:46
DX: R07.9 Chest pain, unspecified (principal); R06.02 Shortness of breath; R20.0 Anesthesia of skin; I50.9 Heart failure, unspecified; E11.22 Type 2 diabetes mellitus with diabetic chronic kidney disease; I13.2 Hypertensive heart and chronic kidney disease with heart failure and with stage 5 chronic kidney disease, or end stage renal disease; N18.6 End stage renal disease; Z99.2 Dependence on renal dialysis; Z90.49 Acquired absence of other specified parts of digestive tract; I25.2 Old myocardial infarction
CPT/HCPCS: 93005; 99285; 36415; 85025; 80053; 84484; 71046; 93010; A9270

== ENCOUNTER 2020-11-17 15:30 | Emergency (ER) | payer MEDICARE, MEDICAID ==
--- NOTE | 2020-11-17 16:07 | ER Document Report ---
ED Medical Screen (RME) - General Chief Complaint: Shortness Of Breath Stated Complaint: SHORTNESS OF BREATH Time Seen by Provider: 11/17/20 15:54 Mode of Arrival: Medic Information source: Patient Notes: 35-year-old female presented to ED for severe shortness of breath and fatigue. Her O2 sat was 88% anterolateral on her O2 3 L. At that her O2 sat came up to 96. Patient states she did get her dialysis yesterday as was scheduled after she was seen. She did come to the ER yesterday x-ray yesterday showed that her x-rays were improving. Patient is alert and oriented but very short of breath place her in pod 5 waiting on a O2 machine until we can get a room. I have spoken with charge nurse and she will get her room as soon as possible. I have ordered the Covid test as she states she has not had a test since beginning of October. She states she is much tighter and weaker than normal. I have greeted and performed a rapid initial assessment of this patient. A comprehensive ED assessment and evaluation of the patient, analysis of test results and completion of medical decision making process will be conducted by an additional ED providers. TRAVEL OUTSIDE OF THE [place] IN LAST 30 DAYS: No - Related Data Allergies/Adverse Reactions: aspirin [Aspirin] Allergy (Verified 11/17/20 15:55) Anaphylaxis ciprofloxacin [From Cipro] Allergy (Verified 11/17/20 15:55) Anaphylaxis clindamycin [Clindamycin] Allergy (Verified 11/17/20 15:55) hydrocodone [From Vicodin] Allergy (Verified 11/17/20 15:55) ibuprofen [From Motrin] Allergy (Verified 11/17/20 15:55) Anaphylaxis lidocaine [From Lidoderm] Allergy (Verified 11/17/20 15:55) Generalized rash tramadol HCl [From Ultram] Allergy (Verified 11/17/20 15:55) vancomycin [Vancomycin] Allergy (Verified 11/17/20 15:55) Shortness of Breath nitroglycerin [Nitroglycerin] Adverse Reaction (Intermediate, Verified 11/17/20 15:55) Joint pain Past Medical History - Social History Family history: Reviewed & Not Pertinent - Past Medical History Cardiac Medical History: Reports: Hx Congestive Heart Failure, Hx Coronary Artery Disease, Hx Heart Attack, Hx Hypertension, Hx Heart Murmur Pulmonary Medical History: Reports: Hx Asthma, Hx Pneumonia Neurological Medical History: Reports: Hx Migraine, Hx Seizures - only r/t low calcium. Denies: Hx Parkinson's Disease Endocrine Medical History: Reports: Hx Diabetes Mellitus Type 1, Hx Diabetes Mellitus Type 2 Renal/ Medical History: Reports: Hx End Stage Renal Disease - On hemodialysis M-W-, Hx Hemodialysis - MWF, Hx Ovarian Cysts. Denies: Hx Peritoneal Dialysis Malignancy Medical History: GI Medical History: Reports: Hx Gastritis Musculoskeltal Medical History: Skin Medical History: Reports Hx Psoriasis Psychiatric Medical History: Reports: Hx Depression Traumatic Medical History: Infectious Medical History: Past Surgical History: Reports: Hx Appendectomy, Hx Cholecystectomy, Hx Vascular Surgery - Lt AV Fistula and graft; Rt AV fistula - Immunizations Immunizations up to date: Yes Hx Diphtheria, Pertussis, Tetanus Vaccination: Yes Physical Exam - Vital signs Vitals: Temp Pulse Resp BP Pulse Ox 98.5 F 120 H 24 H 140/81 H 93 11/17/20 15:34 11/17/20 15:34 11/17/20 15:34 11/17/20 15:34 11/17/20 15:34 Course - Vital Signs Vital signs: Temp Pulse Resp BP Pulse Ox 98.5 F 120 H 24 H 140/81 H 93 11/17/20 15:34 11/17/20 15:34 11/17/20 15:34 11/17/20 15:34 11/17/20 15:34
--- NOTE | 2020-11-17 18:06 | RADIOLOGY REPORT (SQ) ---
EXAM DESCRIPTION: CHEST SINGLE VIEW IMAGES COMPLETED DATE/TIME: 11/17/2020 4:34 pm REASON FOR STUDY: Short of breath fatigue more so than usual. COMPARISON: 11/06/2020 EXAM PARAMETERS: NUMBER OF VIEWS: One view. TECHNIQUE: Single frontal radiographic view of the chest acquired. RADIATION DOSE: NA LIMITATIONS: None. FINDINGS: LUNGS AND PLEURA: Improving aeration with mild persistent patchy opacities in the right deric ng and left perihilar region. No pleural effusion or pneumothorax. MEDIASTINUM AND HILAR STRUCTURES: No masses. Contour normal. HEART AND VASCULAR STRUCTURES: Mild cardiomegaly. No pulmonary vascular congestion. BONES: No acute findings. HARDWARE: Right vascular stents are unchanged. OTHER: No other significant finding. IMPRESSION: Improving aeration with mild persistent patchy opacities suggestive of multifocal pneumo opal. TECHNICAL DOCUMENTATION: JOB ID: [id number] 2010 [employer]- All Rights Reserved Reading location - IP/workstation name: [email or web address]
[2020-11-17 20:52] LABS: ABSOLUTE BASOPHILS # (AUTO) 0.1 10^3/uL (0.0-0.2); ABSOLUTE EOSINOPHILS # (AUTO) 0.3 10^3/uL (0.0-0.6); ABSOLUTE LYMPHOCYTES (AUTO) 1.5 10^3/uL (0.5-4.7); ABSOLUTE MONOCYTES (AUTO) 0.4 10^3/uL (0.1-1.4); ABSOLUTE NEUT (AUTO) 13.5 10^3/uL (1.7-8.2); BASOPHILS % (AUTO) 0.8 % (0-2); EOSINOPHILS % (AUTO) 1.6 % (0-6); HEMATOCRIT 28.7 % (36.0-47.0); HEMOGLOBIN 9.4 g/dL (12.0-15.5); LYMPHOCYTES % (AUTO) 9.2 % (13-45); MEAN CORPUSCULAR HEMOGLOBIN 28.7 pg (27.0-33.4); MEAN CORPUSCULAR HGB CONC 32.7 g/dL (32.0-36.0); MEAN CORPUSCULAR VOLUME 88 fl (80-97); MONOCYTES % (AUTO) 2.8 % (3-13); PLATELET COUNT 428 10^3/uL (150-450); RED BLOOD COUNT 3.27 10^6/uL (3.72-5.28); RED CELL DISTRIBUTION WIDTH 17.1 % (11.5-14.0); SEGMENTED NEUTROPHILS % (AUTO) 85.6 % (42-78); TOTAL CELLS COUNTED % (AUTO) 100 %; WHITE BLOOD COUNT 15.8 10^3/uL (4.0-10.5)
[2020-11-17 21:09] LABS: ALBUMIN 4.5 g/dL (3.5-5.0); ALKALINE PHOSPHATASE 83 U/L (38-126); ANION GAP 15 (5-19); ASPARTATE AMINO TRANSFERASE 19 U/L (14-36); BILIRUBIN,DIRECT 0.4 mg/dL (0.0-0.4); BILIRUBIN,TOTAL 0.6 mg/dL (0.2-1.3); BLOOD UREA NITROGEN 47 mg/dL (7-20); CALCIUM 8.7 mg/dL (8.4-10.2); CARBON DIOXIDE 28 mmol/L (22-30); CHLORIDE 92 mmol/L (98-107); GLUCOSE 273 mg/dL (75-110); POTASSIUM 5.9 mmol/L (3.6-5.0); TOTAL PROTEIN 8.6 g/dL (6.3-8.2)
[2020-11-17] MEDS ORDERED: CALCIUM GLUCONATE 1000 MG/10 ML INJ IV ONE (21:26)
[2020-11-17] MEDS ORDERED: ALBUTEROL SULFATE 0.083% NEB 2.5 MG/3 ML AMPUL NEB ONE (21:26)
[2020-11-17] MEDS ORDERED: SODIUM POLYSTYRENE SULFONATE 15 GM/60 ML PO ONE ×2 (21:26→23:57)
--- NOTE | 2020-11-17 21:28 | ER Document Report ---
Entered by POP GONCALVES SCRIBE 11/17/202122 Acting as scribe for:KIERA RASHEED, DO ED General - General Chief Complaint: Shortness Of Breath Stated Complaint: SHORTNESS OF BREATH Time Seen by Provider: 11/17/20 15:54 Mode of Arrival: Medic Information source: Patient Notes: This 35 year old female patient presents to the emergency department today with complaints of nausea and general weakness. Patient reports history of ESRD on HD (MWF) and was scheduled for dialysis yesterday due to the holidays but missed her appointment since she visited the ED. Patient states she went for her dialysis today. Patient states she feels better now in the ED and does not want to be hospitalized. Patient states she is on 2L of O2 at home and is out of her albuterol solution. Denies any fever, chest pain, vomiting, or exposure to sick people at home. TRAVEL OUTSIDE OF THE [place] IN LAST 30 DAYS: No - Related Data Allergies/Adverse Reactions: aspirin [Aspirin] Allergy (Verified 11/17/20 15:55) Anaphylaxis ciprofloxacin [From Cipro] Allergy (Verified 11/17/20 15:55) Anaphylaxis clindamycin [Clindamycin] Allergy (Verified 11/17/20 15:55) hydrocodone [From Vicodin] Allergy (Verified 11/17/20 15:55) ibuprofen [From Motrin] Allergy (Verified 11/17/20 15:55) Anaphylaxis lidocaine [From Lidoderm] Allergy (Verified 11/17/20 15:55) Generalized rash tramadol HCl [From Ultram] Allergy (Verified 11/17/20 15:55) vancomycin [Vancomycin] Allergy (Verified 11/17/20 15:55) Shortness of Breath nitroglycerin [Nitroglycerin] Adverse Reaction (Intermediate, Verified 11/17/20 15:55) Joint pain Past Medical History - General Information source: Patient, [facility] Records - Social History Smoking Status: Never Smoker Cigarette use (# per day): No Lives with: Family Family History: Reviewed & Not Pertinent, Hypertension - Past Medical History Cardiac Medical History: Reports: Hx Congestive Heart Failure, Hx Coronary Artery Disease, Hx Heart Attack, Hx Hypertension, Hx Heart Murmur Pulmonary Medical History: Reports: Hx Asthma, Hx Pneumonia Neurological Medical History: Reports: Hx Migraine, Hx Seizures - only r/t low calcium Endocrine Medical History: Reports: Hx Diabetes Mellitus Type 1, Hx Diabetes M ellitus Type 2 Renal/ Medical History: Reports: Hx End Stage Renal Disease - On hemodialysis M-W-F, Hx Hemodialysis - MWF, Hx Ovarian Cysts Malignancy Medical History: GI Medical History: Reports: Hx Gastritis Musculoskeletal Medical History: Skin Medical History: Reports Hx Psoriasis Psychiatric Medical History: Reports: Hx Depression Traumatic Medical History: Infectious Medical History: Past Surgical History: Reports: Hx Appendectomy, Hx Cholecystectomy, Hx Vascular Surgery - Lt AV Fistula and graft; Rt AV fistula - Immunizations Immunizations up to date: Yes Hx Diphtheria, Pertussis, Tetanus Vaccination: Yes Hx Pneumococcal Vaccination: 08/22/11 Review of Systems - Review of Systems Constitutional: See HPI, Weakness. denies: Fever EENT: No symptoms reported Cardiovascular: See HPI. denies: Chest pain Respiratory: No symptoms reported Gastrointestinal: See HPI, Nausea. denies: Vomiting Genitourinary: No symptoms reported Female Genitourinary: No symptoms reported Musculoskeletal: No symptoms reported Skin: No symptoms reported Hematologic/Lymphatic: No symptoms reported Neurological/Psychological: No symptoms reported -: Yes All other systems reviewed and negative Physical Exam - Vital signs Vitals: Temp Pulse Resp BP Pulse Ox 98.5 F 120 H 24 H 140/81 H 93 11/17/20 15:34 11/17/20 15:34 11/17/20 15:34 11/17/20 15:34 11/17/20 15:34 - General General appearance: Appears well, Alert - HEENT Head: Normocephalic, Atraumatic Eyes: Normal Pupils: PERRL - Respiratory Respiratory status: No respiratory distress Chest status: Nontender Chest palpation: Normal Notes: Mildly diminished breath sounds bilaterally. - Cardiovascular Rhythm: Regular Heart sounds: Normal auscultation Murmur: No - Abdominal Inspection: Obese Distension: No distension Bowel sounds: Normal Tenderness: Nontender - Extremities General lower extremity: Normal inspection. No: Edema Notes: AV fistula to the right upper extremity. Palpable thrill. - Neurological Neuro grossly intact: Yes Cognition: Normal Orientation: AAOx4 [place] Coma Scale Eye Opening: Spontaneous [place] Coma Scale Verbal: Oriented [place] Coma Scale Motor: Obeys Commands [place] Coma Scale Total: 15 Speech: Normal Motor strength normal: LUE, RUE, LLE, RLE Sensory: Normal - Psychological Associated symptoms: Normal affect, Normal mood - Skin Skin Temperature: Warm Skin Moisture: Dry Skin Color: Normal Course - Re-evaluation Re-evalutation: 11/17/20 23:47 MDM 35 year old female with ESRD and sob today and over several days. Old records are reviewed. She experienced chest pain biriefly ealrier. Sats are high 90's. She is nontoxic here watching her phone shows. Denies fever or chills. The HD schedule was adjusted due [place]. She is due for HD again tomorrow. Pain free on a recheck about 2344 by me. Family has been spoken to and they mentioned/ reaffirmed that she is out of her albuterol soln for her nebulizer and think that may be helpful. The pt tells me the same thing. We discussed follow up and she expressed understanding. The chest xray is improving here and due to that, even with mildly increased WBC feel likelihood is the cause pulmonary edema. Due to an abundance of caution covid test is sent off. - Vital Signs Vital signs: Temp Pulse Resp BP Pulse Ox 98.2 F 120 H 15 165/96 H 97 11/17/20 22:01 11/17/20 15:34 11/17/20 22:01 11/17/20 22:00 11/17/20 22:01 - Laboratory Results Result Diagrams: 11/17/20 20:40 11/17/20 20:40 Laboratory Results Interpreted: 11/17/20 11/17/20 20:40 20:40 WBC 15.8 H RBC 3.27 L Hgb 9.4 L Hct 28.7 L RDW 17.1 H Lymph % (Auto) 9.2 L [place] % (Auto) 2.8 L Absolute Neuts (auto) 13.5 H Seg Neutrophils % 85.6 H Sodium 135.4 L Potassium 5.9 H Chloride 92 L BUN 47 H Creatinine 10.45 H Est GFR ( Amer) 5 L Est GFR (MDRD) Non-Af 4 L Glucose 273 H Total Protein 8.6 H Critical Laboratory Results Reviewed: No Critical Results - Radiology Results Critical Radiology Results Reviewed: No Critical Results - EKG Interpretation by Me EKG shows normal: Sinus rhythm Rate: Tachycardia Rhythm: NSR - Sinus tachy 105 BPM NL [place] poor r wave progression IVCD with no st elevation or depression. Discharge - Discharge Clinical Impression: ESRD (end stage renal disease) on dialysis, End stage chronic kidney disease, Bilateral pulmonary infiltrates on CXR, Hyperkalemia Condition: Stable Disposition: HOME, SELF-CARE Instructions: COVID-19 Guidance for Persons Under Investigation, Congestive Heart Failure ([facility]), Kidney Failure ([facility]), Kidney Injury ([facility]) Additional Instructions: Keep the follow up for dialysis later today. Take your medicine as directed. Return here for chest pain or shortness of breath. Your potassium was up a bit here. Make sure you let them know that at hemodialysis tomorrow. Use your breathing treatments as needed for the shortness of breath. Take the medicine to lower your potassium once more tonight. Your albuterol was sent to [facility] electronically. Prescriptions: Albuterol Sulfate [Proventil 0.5% Neb 2.5 mg/0.5 ml Vial.neb] 2.5 mg NEB QID #1 misc Forms: Elevated Blood Pressure I personally performed the services described in the documentation, reviewed and edited the documentation which was dictated to the scribe in my presence, and it accurately records my words and actions.
[2020-11-17 21:30] LABS: A TYPE INFLUENZA AG NEGATIVE (NEGATIVE); B INFLUENZA AG NEGATIVE (NEGATIVE)
[2020-11-17] MEDS ORDERED: MORPHINE SULFATE 10 MG/ML INJ IV ONE (22:59)
[2020-11-17] MEDS ORDERED: ONDANSETRON HCL INJ/PF 4 MG/2 ML SDV IV ONE (23:00)
[2020-11-18 01:12] VITALS: BP 162/76
--- NOTE | 2020-11-18 06:29 | EKG REPORT ---
SEVERITY:- ABNORMAL ECG - SINUS TACHYCARDIA ATRIAL PREMATURE COMPLEX NONSPECIFIC INTRAVENTRICULAR CONDUCTION DELAY MINIMAL ST DEPRESSION, LATERAL LEADS : Confirmed by: Ciro Beckford MD 18-Nov-2020 06:28:34
== END 2020-11-18 01:20 | disposition home or self-care (01) ==
LOC: ER 15:30
DX: I13.2 Hypertensive heart and chronic kidney disease with heart failure and with stage 5 chronic kidney disease, or end stage renal disease (principal); E11.22 Type 2 diabetes mellitus with diabetic chronic kidney disease; N18.6 End stage renal disease; I50.9 Heart failure, unspecified; Z99.2 Dependence on renal dialysis; Z91.15 Patient's noncompliance with renal dialysis; E87.5 Hyperkalemia; R00.0 Tachycardia, unspecified; R11.0 Nausea; R53.1 Weakness; Z99.81 Dependence on supplemental oxygen; J45.909 Unspecified asthma, uncomplicated; R06.02 Shortness of breath; Z87.01 Personal history of pneumonia (recurrent); Z87.892 Personal history of anaphylaxis; Z88.8 Allergy status to other drugs, medicaments and biological substances; Z88.1 Allergy status to other antibiotic agents; Z88.6 Allergy status to analgesic agent; Z88.5 Allergy status to narcotic agent; Z88.4 Allergy status to anesthetic agent; Z20.828 Contact with and (suspected) exposure to other viral communicable diseases
CPT/HCPCS: 93005; 94640; 99285; 96374; 96375; 36415; 87070; 87880; 85025; 80053; 84484; 87804; 71045; 93010; U0003; J0610; J2270; A9270 ×3; J2405; C9803; 87635; J7613

== ENCOUNTER 2020-11-27 09:48 | Emergency (ER) | payer MEDICARE, MEDICAID ==
--- NOTE | 2020-11-27 10:32 | ER Document Report ---
ED Medical Screen (RME) - General Stated Complaint: CHEST PAIN, EAR PAIN Time Seen by Provider: 11/27/20 10:25 Primary Care Provider: HILARY HERNANDEZ MD [Primary Care Provider] - Follow up as needed Mode of Arrival: Wheelchair Information source: Patient Notes: HPI; 35-year-old female presents to the emergency room complaining of right- sided facial pain, ear pain, radiating into the right side of her chest. Describes it as pressure. Denies any nausea, vomiting, no medications prior to arrival. History significant for hypertension, diabetes, kidney failure with dialysis Wednesday. Last dialysis on Wednesday. Denies any COVID-19 exposure. PE: Alert and oriented x3. Right outer ear canal with mild erythema and swelling tympanic membrane intact lungs: Clear to auscultation without rales, rhonchi, wheezes. Heart: Regular rate and rhythm without murmurs, rubs, gallops. I have greeted and performed a rapid initial assessment of this patient. A comprehensive ED assessment and evaluation of the patient, analysis of test results and completion of the medical decision making process will be conducted by additional ED providers. I have specifically instructed the patient or family members with the patient to immediately return to any nursing staff should anything change in the patient's condition or with their chief complaint. TRAVEL OUTSIDE OF THE [place] IN LAST 30 DAYS: No - Related Data Allergies/Adverse Reactions: aspirin [Aspirin] Allergy (Verified 11/27/20 10:25) Anaphylaxis ciprofloxacin [From Cipro] Allergy (Verified 11/27/20 10:25) Anaphylaxis clindamycin [Clindamycin] Allergy (Verified 11/27/20 10:25) hydrocodone [From Vicodin] Allergy (Verified 11/27/20 10:25) ibuprofen [From Motrin] Allergy (Verified 11/27/20 10:25) Anaphylaxis lidocaine [From Lidoderm] Allergy (Verified 11/27/20 10:25) Generalized rash tramadol HCl [From Ultram] Allergy (Verified 11/27/20 10:25) vancomycin [Vancomycin] Allergy (Verified 11/27/20 10:25) Shortness of Breath nitroglycerin [Nitroglycerin] Adverse Reaction (Intermediate, Verified 11/27/20 10:25) Joint pain Past Medical History - Social History Family history: Reviewed & Not Pertinent - Past Medical History Cardiac Medical History: Reports: Hx Congestive Heart Failure, Hx Coronary Artery Disease, Hx Heart Attack, Hx Hypertension, Hx Heart Murmur Pulmonary Medical History: Reports: Hx Asthma, Hx Pneumonia Neurological Medical History: Reports: Hx Migraine, Hx Seizures - only r/t low calcium. Denies: Hx Parkinson's Disease Endocrine Medical History: Reports: Hx Diabetes Mellitus Type 1, Hx Diabetes Mellitus Type 2 Renal/ Medical History: Reports: Hx End Stage Renal Disease - On hemodialysis -W-, Hx Hemodialysis - MWF, Hx Ovarian Cysts. Denies: Hx Peritoneal Dialysis Malignancy Medical History: GI Medical History: Reports: Hx Gastritis Musculoskeltal Medical History: Skin Medical History: Reports Hx Psoriasis Psychiatric Medical History: Reports: Hx Depression Traumatic Medical History: Infectious Medical History: Past Surgical History: Reports: Hx Appendectomy, Hx Cholecystectomy, Hx Vascular Surgery - Lt AV Fistula and graft; Rt AV fistula - Immunizations Immunizations up to date: Yes Hx Diphtheria, Pertussis, Tetanus Vaccination: Yes Physical Exam - Vital signs Vitals: Temp Pulse Resp BP Pulse Ox 97.8 F 91 22 H 138/79 H 100 11/27/20 10:06 11/27/20 10:06 11/27/20 10:06 11/27/20 10:06 11/27/20 10:06 Course - Vital Signs Vital signs: Temp Pulse Resp BP Pulse Ox 97.8 F 91 22 H 138/79 H 100 11/27/20 10:06 11/27/20 10:06 11/27/20 10:06 11/27/20 10:06 11/27/20 10:06 Doctor's Discharge - Discharge Referrals: HILARY HERNANDEZ MD [Primary Care Provider] - Follow up as needed
[2020-11-27 11:14] LABS: ABSOLUTE BASOPHILS # (AUTO) 0.1 10^3/uL (0.0-0.2); ABSOLUTE EOSINOPHILS # (AUTO) 0.7 10^3/uL (0.0-0.6); ABSOLUTE LYMPHOCYTES (AUTO) 1.5 10^3/uL (0.5-4.7); ABSOLUTE MONOCYTES (AUTO) 0.4 10^3/uL (0.1-1.4); ABSOLUTE NEUT (AUTO) 5.9 10^3/uL (1.7-8.2); BASOPHILS % (AUTO) 0.7 % (0-2); EOSINOPHILS % (AUTO) 8.7 % (0-6); HEMATOCRIT 27.2 % (36.0-47.0); HEMOGLOBIN 8.7 g/dL (12.0-15.5); LYMPHOCYTES % (AUTO) 17.1 % (13-45); MEAN CORPUSCULAR HEMOGLOBIN 28.6 pg (27.0-33.4); MEAN CORPUSCULAR HGB CONC 32.2 g/dL (32.0-36.0); MEAN CORPUSCULAR VOLUME 89 fl (80-97); MONOCYTES % (AUTO) 5.1 % (3-13); PLATELET COUNT 336 10^3/uL (150-450); RED BLOOD COUNT 3.06 10^6/uL (3.72-5.28); RED CELL DISTRIBUTION WIDTH 17.7 % (11.5-14.0); SEGMENTED NEUTROPHILS % (AUTO) 68.4 % (42-78); TOTAL CELLS COUNTED % (AUTO) 100 %; WHITE BLOOD COUNT 8.6 10^3/uL (4.0-10.5)
[2020-11-27 11:35] LABS: ALBUMIN 4.2 g/dL (3.5-5.0); ALKALINE PHOSPHATASE 75 U/L (38-126); ANION GAP 15 (5-19); ASPARTATE AMINO TRANSFERASE 16 U/L (14-36); BILIRUBIN,DIRECT 0.4 mg/dL (0.0-0.4); BILIRUBIN,TOTAL 0.4 mg/dL (0.2-1.3); BLOOD UREA NITROGEN 42 mg/dL (7-20); CALCIUM 8.5 mg/dL (8.4-10.2); CARBON DIOXIDE 27 mmol/L (22-30); CHLORIDE 94 mmol/L (98-107); GLUCOSE 227 mg/dL (75-110); POTASSIUM 5.4 mmol/L (3.6-5.0); TOTAL PROTEIN 7.8 g/dL (6.3-8.2)
--- NOTE | 2020-11-27 12:19 | RADIOLOGY REPORT (SQ) ---
EXAM DESCRIPTION: CHEST SINGLE VIEW IMAGES COMPLETED DATE/TIME: 11/27/2020 11:40 am REASON FOR STUDY: chest pain COMPARISON: 11/17/2020 EXAM PARAMETERS: NUMBER OF VIEWS: One view. TECHNIQUE: Single frontal radiographic view of the chest acquired. RADIATION DOSE: NA LIMITATIONS: None. FINDINGS: LUNGS AND PLEURA: Stable, persistent appearance of multifocal airspace opacities bilateral ly. No new focal consolidation. No pleural effusion. No pneumothorax. MEDIASTINUM AND HILAR STRUCTURES: No masses. Contour normal. HEART AND VASCULAR STRUCTURES: Mild cardiomegaly without central vascular congestion. BONES: No acute findings. HARDWARE: Right subclavian and axillary vascular stents. OTHER: No other significant finding. IMPRESSION: Stable radiographic appearance of the chest demonstrating persistent airspace opacities bilaterally. TECHNICAL DOCUMENTATION: JOB ID: [id number] 2010 [employer]- All Rights Reserved Reading location - IP/workstation name: [email or web address]
[2020-11-27] MEDS ORDERED: ACETAMINOPHEN 325 MG TABLET PO ONE (16:10)
[2020-11-27] MEDS ORDERED: MORPHINE SULFATE 10 MG/ML INJ IV ONE (20:15)
[2020-11-27] MEDS ORDERED: AMOXICILLIN TR/POT CLAVULANATE 500-125 MG TAB PO ONE (20:25)
--- NOTE | 2020-11-27 20:35 | ER Document Report ---
ED General - General Chief Complaint: Chest Tightness Stated Complaint: CHEST PAIN, EAR PAIN Time Seen by Provider: 11/27/20 10:25 Primary Care Provider: HILARY HERNANDEZ MD [Primary Care Provider] - Follow up as needed Mode of Arrival: Wheelchair TRAVEL OUTSIDE OF THE [place] IN LAST 30 DAYS: No - HPI Notes: Patient is a 35-year-old female, end-stage renal disease, with multiple medical issues, who presents to the emergency department for evaluation. She complains of pain in her right ear that started 3 days ago. It is spread to her head, her neck, and down into her right shoulder and chest. Is worsened by touching. She did have some minor nasal congestion. She states that her hearing has been diminished in that ear. She has not tried anything to feel better. No fevers or chills. No nausea or vomiting. She is not coughing or short of breath. Of note, the patient did not go to dialysis today because she was waiting for evaluation here. - Related Data Allergies/Adverse Reactions: aspirin [Aspirin] Allergy (Verified 11/27/20 10:25) Anaphylaxis ciprofloxacin [From Cipro] Allergy (Verified 11/27/20 10:25) Anaphylaxis clindamycin [Clindamycin] Allergy (Verified 11/27/20 10:25) hydrocodone [From Vicodin] Allergy (Verified 11/27/20 10:25) ibuprofen [From Motrin] Allergy (Verified 11/27/20 10:25) Anaphylaxis lidocaine [From Lidoderm] Allergy (Verified 11/27/20 10:25) Generalized rash tramadol HCl [From Ultram] Allergy (Verified 11/27/20 10:25) vancomycin [Vancomycin] Allergy (Verified 11/27/20 10:25) Shortness of Breath nitroglycerin [Nitroglycerin] Adverse Reaction (Intermediate, Verified 11/27/20 10:25) Joint pain Home Medications: Insulin Dependent diabetic Levemir & Novolog Past Medical History - General Information source: Patient - Social History Smoking Status: Never Smoker Chew tobacco use (# tins/day): No Frequency of alcohol use: None Drug Abuse: None Family History: Reviewed & Not Pertinent, Hypertension Patient has homicidal ideation: No - Past Medical History Cardiac Medical History: Reports: Hx Congestive Heart Failure, Hx Coronary Artery Disease, Hx Heart Attack, Hx Hypertension, Hx Heart Murmur Pulmonary Medical History: Reports: Hx Asthma, Hx Pneumonia Neurological Medical History: Reports: Hx Migraine, Hx Seizures - only r/t low calcium. Denies: Hx Parkinson's Disease Endocrine Medical History: Reports: Hx Diabetes Mellitus Type 1, Hx Diabetes Mellitus Type 2 Renal/ Medical History: Reports: Hx End Stage Renal Disease - On hemodialysis M-W-F, Hx Hemodialysis - MWF, Hx Ovarian Cysts. Denies: Hx Peritoneal Dialysis Malignancy Medical History: GI Medical History: Reports: Hx Gastritis Musculoskeletal Medical History: Skin Medical History: Reports Hx Psoriasis Psychiatric Medical History: Reports: Hx Depression Traumatic Medical History: Infectious Medical History: Past Surgical History: Reports: Hx Appendectomy, Hx Cholecystectomy, Hx Vascular Surgery - Lt AV Fistula and graft; Rt AV fistula - Immunizations Immunizations up to date: Yes Hx Diphtheria, Pertussis, Tetanus Vaccination: Yes Hx Pneumococcal Vaccination: 08/22/11 Review of Systems - Review of Systems Constitutional: See HPI EENT: See HPI Cardiovascular: See HPI Gastrointestinal: No symptoms reported Genitourinary: No symptoms reported Musculoskeletal: See HPI Skin: No symptoms reported Neurological/Psychological: No symptoms reported Physical Exam - Vital signs Vitals: Temp Pulse Resp BP Pulse Ox 97.8 F 91 22 H 138/79 H 100 11/27/20 10:06 11/27/20 10:06 11/27/20 10:06 11/27/20 10:06 11/27/20 10:06 - Notes Notes: This is a 35-year-old female who appears older than her stated age, no acute distress. Head is normocephalic and appears atraumatic. Pupils are equal round, reactive to light. Oxygen per nasal cannula in place. No facial edema or erythema. Patient has tenderness with pulling on the right pinna. Minimal tenderness with tragus palpation, but it is present. Right TM is erythematous with purulent effusion, minimal bulging. Ear canal is small but is comparable to the left external auditory canal. The patient has no tenderness over the mastoid. She has tenderness into the anterior sternocleidomastoid muscles, into the trapezius, and into the anterior pectoralis muscles on the right. Heart regular rate and rhythm, lungs are clear to auscultation bilaterally. Abdomen is nontender with normoactive bowel sounds. Extremities without cyanosis or clubbing. Patient is awake and alert, oriented x3. No gross facial asymmetry. She moves all 4 extremities spontaneously. Course - Re-evaluation Re-evalutation: 11/27/20 20:32 Patient presents to the emergency department for evaluation. She was initially seen through triage. Given her multiple medical issues, focus was placed on the fact that she had some chest pain. I do believe that this is all reproducible and secondary to her right otitis media. I will start her on Augmentin. She is to take these doses after dialysis. She missed her dialysis today. She is mildly hyperkalemic. She is absolutely to get dialyzed tomorrow and the importance of this was stressed to her. She voiced understanding. She is to return to the ED with worsening or new concerning symptoms of any sort. - Vital Signs Vital signs: Temp Pulse Resp BP Pulse Ox 97.8 F 91 15 177/112 H 99 11/27/20 10:06 11/27/20 10:06 11/27/20 19:01 11/27/20 19:01 11/27/20 19:01 - Laboratory Results Result Diagrams: 11/27/20 11:02 11/27/20 11:02 Laboratory Results Interpreted: 11/27/20 11/27/20 11:02 11:02 RBC 3.06 L Hgb 8.7 L Hct 27.2 L RDW 17.7 H Eos % (Auto) 8.7 H Absolute Eos (auto) 0.7 H Sodium 136.3 L Potassium 5.4 H Chloride 94 L BUN 42 H Creatinine 9.15 H Est GFR ( Amer) 6 L Est GFR (MDRD) Non-Af 5 L Glucose 227 H Critical Laboratory Results Reviewed: No Critical Results - Radiology Results Radiology Results Interpreted: 11/27/20 20:32 Chest X-Ray 11/27/20 10:29 IMPRESSION: Stable radiographic appearance of the chest demonstrating persistent airspace opacities bilaterally. Critical Radiology Results Reviewed: No Critical Results - EKG Interpretation by Me Additional EKG results interpreted by me: 11/27/20 20:35 Sinus mechanism with rate of 94 bpm. Normal axis. First-degree AV block. IVCD. No acute ST elevation concerning for infarction. No significant change when compared to prior study of November 18, 2020. Discharge - Discharge Clinical Impression: End stage renal disease, Hyperkalemia, Right otitis media with effusion, Chest wall pain Condition: Stable Disposition: HOME, SELF-CARE Instructions: Otitis Media ([facility]), Chest Wall Pain ([facility]) Additional Instructions: Please take Augmentin as directed, once daily after dialysis. Your potassium is mildly high today. You need to go to dialysis tomorrow. Follow-up with your primary care provider next week. Return to the emergency department with worsening or new concerning symptoms of any sort. Referrals: HILARY HERNANDEZ MD [Primary Care Provider] - Follow up as needed
[2020-11-27 20:43] VITALS: BP 157/76
--- NOTE | 2020-11-27 23:32 | EKG REPORT ---
SEVERITY:- ABNORMAL ECG - SINUS RHYTHM FIRST DEGREE AV BLOCK NONSPECIFIC INTRAVENTRICULAR CONDUCTION DELAY : Confirmed by: Daniela Lemons 27-Nov-2020 23:31:59
--- NOTE | 2020-11-27 23:36 | EKG REPORT ---
SEVERITY:- ABNORMAL ECG - SINUS TACHYCARDIA INCOMPLETE LEFT BUNDLE BRANCH BLOCK : Confirmed by: Daniela Lemons 27-Nov-2020 23:36:02
== END 2020-11-27 20:55 | disposition home or self-care (01) ==
LOC: ER 09:48
DX: H65.91 Unspecified nonsuppurative otitis media, right ear (principal); H92.01 Otalgia, right ear; E87.5 Hyperkalemia; R07.89 Other chest pain; R51.9 Headache, unspecified; E11.22 Type 2 diabetes mellitus with diabetic chronic kidney disease; I13.2 Hypertensive heart and chronic kidney disease with heart failure and with stage 5 chronic kidney disease, or end stage renal disease; I50.9 Heart failure, unspecified; N18.6 End stage renal disease; Z99.2 Dependence on renal dialysis; I25.2 Old myocardial infarction; Z90.49 Acquired absence of other specified parts of digestive tract; Z88.6 Allergy status to analgesic agent; Z88.3 Allergy status to other anti-infective agents
CPT/HCPCS: 93005; 99285; 96374; 96375; 36415; 82962; 84703; 85025; 80053; 84484; 82803; 71045; 93010; A9270 ×2; J1940; J2270; J2060; 96376; G0257; J0610; J1815; J2405; J3490; Q5105

== ENCOUNTER 2020-11-27 22:23 | Emergency (ER) | payer MEDICARE, MEDICAID ==
--- NOTE | 2020-11-27 22:31 | ER Document Report ---
ED General - General Stated Complaint: DIFFICULTY BREATHING Time Seen by Provider: 11/27/20 22:30 Primary Care Provider: HILARY HERNANDEZ MD [Primary Care Provider] - Follow up as needed TRAVEL OUTSIDE OF THE [place] IN LAST 30 DAYS: No - HPI Notes: 35-year-old female presents with shortness of breath. Patient is a MWF dialysis patient, she spent greater than 10 hours in the emergency department today for a right otitis media, therefore missing her usual dialysis session today. During her Lyft ride home from the emergency department, she became acutely short of breath. EMS was called and she was initiated on CPAP. Her saturations were 84% on room air. Patient is reporting that she cannot breathe. HPI is limited. - Related Data Allergies/Adverse Reactions: aspirin [Aspirin] Allergy (Verified 11/27/20 22:37) Anaphylaxis ciprofloxacin [From Cipro] Allergy (Verified 11/27/20 22:37) Anaphylaxis clindamycin [Clindamycin] Allergy (Verified 11/27/20 22:37) hydrocodone [From Vicodin] Allergy (Verified 11/27/20 22:37) ibuprofen [From Motrin] Allergy (Verified 11/27/20 22:37) Anaphylaxis lidocaine [From Lidoderm] Allergy (Verified 11/27/20 22:37) Generalized rash tramadol HCl [From Ultram] Allergy (Verified 11/27/20 22:37) vancomycin [Vancomycin] Allergy (Verified 11/27/20 22:37) Shortness of Breath nitroglycerin [Nitroglycerin] Adverse Reaction (Intermediate, Verified 11/27/20 22:37) Joint pain Past Medical History - General Information source: Patient - Social History Smoking Status: Unknown if Ever Smoked Family History: Hypertension - Past Medical History Cardiac Medical History: Reports: Hx Congestive Heart Failure, Hx Coronary Artery Disease, Hx Heart Attack, Hx Hypertension, Hx Heart Murmur Pulmonary Medical History: Reports: Hx Asthma, Hx Pneumonia Neurological Medical History: Reports: Hx Migraine, Hx Seizures - only r/t low calcium. Denies: Hx Parkinson's Disease Endocrine Medical History: Reports: Hx Diabetes Mellitus Type 1, Hx Diabetes Mellitus Type 2 Renal/ Medical History: Reports: Hx End Stage Renal Disease - On hemodialysis M-W-F, Hx Hemodialysis - MWF, Hx Ovarian Cysts. Denies: Hx Peritoneal Dialysis Malignancy Medical History: GI Medical History: Reports: Hx Gastritis Musculoskeletal Medical History: Skin Medical History: Reports Hx Psoriasis Psychiatric Medical History: Reports: Hx Depression Traumatic Medical History: Infectious Medical History: Past Surgical History: Reports: Hx Appendectomy, Hx Cholecystectomy, Hx Vascular Surgery - Lt AV Fistula and graft; Rt AV fistula - Immunizations Immunizations up to date: Yes Hx Diphtheria, Pertussis, Tetanus Vaccination: Yes Hx Pneumococcal Vaccination: 08/22/11 Review of Systems - Review of Systems Constitutional: No symptoms reported EENT: Ear pain Cardiovascular: denies: Chest pain Respiratory: Short of breath Gastrointestinal: denies: Abdominal pain Genitourinary: No symptoms reported Female Genitourinary: No symptoms reported Musculoskeletal: Other - Chronic pain to multiple sites Skin: No symptoms reported Hematologic/Lymphatic: No symptoms reported Neurological/Psychological: No symptoms reported Physical Exam - Vital signs Vitals: Resp 21 H 11/27/20 22:27 - General General appearance: Alert In distress: Moderate - HEENT Head: Normocephalic, Atraumatic Extraocular movements intact: Yes Pupils: PERRL - Respiratory Respiratory status: Tachypnea, Other - Speaks in short sentences Chest status: Tender - General chest wall Breath sounds: Rales - Diffuse - Cardiovascular Rhythm: Tachycardia Normal capillary refill: Yes - Abdominal Inspection: Obese Tenderness: Nontender - Extremities General lower extremity: No: Edema - Neurological Neuro grossly intact: Yes Cognition: Normal - Psychological Associated symptoms: Anxious - Skin Skin Temperature: Warm Course - Re-evaluation Re-evalutation: 35-year-old female MWF dialysis patient who missed her session today due to being in the emergency department for an extended period of time, became acutely short of breath on her way home. Patient has gone into flash pulmonary edema, she has diffuse rails and is tachypneic. She is initiated on BiPAP at the time of her arrival, 12/6 settings. She is not hypoxic here with us. We will start treatment with Lasix and hydralazine. Patient is apparently reporting an allergy to nitro and is unwilling to trial this. Patient will need emergent dialysis, will temporize her here in the emergency department until this can be achieved. Her chest x-ray is mostly white reflecting the pulmonary edema. 11/28/20 00:13 Potassium elevated as expected, no EKG changes. Calcium gluconate, insulin, D50 and bicarb ordered for shifting. Per our charge nurse, we are at max capacity for dialysis and patient will not be able to receive dialysis here 11/28/20 00:22 Into check on patient, she continues on BiPAP, looks to be somewhat improved. She complains of chest wall pain which is very tender to touch. Blood pressure has come down, though informed by nursing that BP is now being taken on her leg, also hydralazine has not been given because there is none on supply at the hospital 11/28/20 00:27 [facility] unable to accept patient due to regional diversion. 11/28/20 00:30 [facility] is unable to accept, no beds 11/28/20 00:34 [facility] is unable to accept, closed to patient transfers due to max capacity 11/28/20 00:36 [facility] transfer center called, will page out 11/28/20 01:[address] Alonso at [facility], he agrees that the patient does need emergent dialysis, however they are not able to accept the patient as they do not have any beds, additionally the ED is unable to accept, there is also no waiting list available 11/28/20 01:38 Nephrology paged to see if there is any way possible patient can have dialysis in the ED 11/28/20 01:[address] Farah, it would be possible to do dialysis in the emergency department at some point later this morning, will continue patient on current management, I have ordered some labetalol as pressure is going back up and she is on carvedilol has a home med. Patient did have to go up on her pressure support from BiPAP 11/28/20 04:01 Patient signed out to Dr. Tong - Vital Signs Vital signs: Temp Pulse Resp BP Pulse Ox 98.7 F 112 H 34 H 186/106 H 96 11/28/20 03:01 11/27/20 22:42 11/28/20 03:01 11/28/20 03:01 11/28/20 03:01 - Laboratory Results Result Diagrams: 11/27/20 23:21 11/27/20 23:21 Laboratory Results Interpreted: 11/27/20 11/27/20 23:21 23:21 WBC 12.2 H RBC 3.05 L Hgb 8.8 L Hct 26.9 L RDW 17.5 H Eos % (Auto) 6.8 H Absolute Neuts (auto) 9.0 H Absolute Eos (auto) 0.8 H Sodium 133.7 L Potassium 6.3 H* Chloride 91 L BUN 48 H Creatinine 9.68 H Est GFR ( Amer) 6 L Est GFR (MDRD) Non-Af 5 L Glucose 176 H Critical Laboratory Results Reviewed: Yes Attending or Supervising Physician who Reviewed Labs: ERICH WOO - Radiology Results Critical Radiology Results Reviewed: No Critical Results - EKG Interpretation by Me Additional EKG results interpreted by me: EKG is interpreted by me. Sinus tachycardia. Narrow complex. No peaked T waves. No ST segment elevation. Critical Care Note - Critical Care Note Total time excluding time spent on procedures (mins): 60 - Patient as acute life-threatening illness related to pulmonary edema from missing dialysis. Multiple reassessment, interventions, coordination of care. Discharge - Discharge Clinical Impression: Acute pulmonary edema, ESRD needing dialysis, Hyperkalemia Disposition: OTHER Referrals: HILARY HERNANDEZ MD [Primary Care Provider] - Follow up as needed
[2020-11-27] MEDS ORDERED: FUROSEMIDE INJ/PF 20 MG/2 ML SDV IV ONE (22:32)
[2020-11-27] MEDS ORDERED: LORAZEPAM INJ 2 MG/1 ML VIAL IV ONE (22:33)
[2020-11-27] MEDS ORDERED: HYDRALAZINE HCL INJ/PF 20 MG/1 ML SDV IV ONE (23:05)
[2020-11-27 23:38] LABS: ABSOLUTE BASOPHILS # (AUTO) 0.1 10^3/uL (0.0-0.2); ABSOLUTE EOSINOPHILS # (AUTO) 0.8 10^3/uL (0.0-0.6); ABSOLUTE LYMPHOCYTES (AUTO) 1.6 10^3/uL (0.5-4.7); ABSOLUTE MONOCYTES (AUTO) 0.7 10^3/uL (0.1-1.4); BASOPHILS % (AUTO) 0.9 % (0-2); EOSINOPHILS % (AUTO) 6.8 % (0-6); HEMATOCRIT 26.9 % (36.0-47.0); HEMOGLOBIN 8.8 g/dL (12.0-15.5); LYMPHOCYTES % (AUTO) 13.1 % (13-45); MEAN CORPUSCULAR HEMOGLOBIN 28.9 pg (27.0-33.4); MEAN CORPUSCULAR HGB CONC 32.8 g/dL (32.0-36.0); MEAN CORPUSCULAR VOLUME 88 fl (80-97); MONOCYTES % (AUTO) 5.5 % (3-13); PLATELET COUNT 344 10^3/uL (150-450); RED BLOOD COUNT 3.05 10^6/uL (3.72-5.28); RED CELL DISTRIBUTION WIDTH 17.5 % (11.5-14.0); SEGMENTED NEUTROPHILS % (AUTO) 73.7 % (42-78); TOTAL CELLS COUNTED % (AUTO) 100 %; WHITE BLOOD COUNT 12.2 10^3/uL (4.0-10.5)
[2020-11-27 23:39] LABS: VENOUS BLOOD BASE EXCESS -0.9 mmol/L; VENOUS BLOOD HCO3 25.6 mmol/L (20-32); VENOUS BLOOD PCO2 50.8 mmHg (35-63); VENOUS BLOOD PH 7.32 (7.30-7.42)
--- NOTE | 2020-11-27 23:52 | RADIOLOGY REPORT (SQ) ---
EXAM DESCRIPTION: XR CHEST 1 VIEW COMPLETED DATE/TME: 11/27/2020 23:13 CLINICAL HISTORY: 35 years, Female, SOB COMPARISON: 11/27/2020 chest at 11:30 AM NUMBER OF VIEWS: 1 TECHNIQUE: Portable chest LIMITATIONS: None. FINDINGS: Heart size is stable. Slight worsening of airspace opacities bilaterally. Stable postsurgical change. No pneumothorax IMPRESSION: Slight worsening of bilateral airspace opacities copyright 2011 [employer]- All Rights Reserved
[2020-11-27 23:54] LABS: ANION GAP 17 (5-19); BLOOD UREA NITROGEN 48 mg/dL (7-20); CALCIUM 8.4 mg/dL (8.4-10.2); CARBON DIOXIDE 26 mmol/L (22-30); CHLORIDE 91 mmol/L (98-107); GLUCOSE 176 mg/dL (75-110)
[2020-11-27 23:57] LABS: POTASSIUM 6.3 mmol/L (3.6-5.0)
[2020-11-27] MEDS ORDERED: CALCIUM GLUCONATE 1000 MG/10 ML INJ IV ONE (23:58)
[2020-11-27] MEDS ORDERED: DEXTROSE 50%-WATER 25 GM/50 ML DISP.SYRIN IV ONE (23:59)
[2020-11-27] MEDS ORDERED: SODIUM BICARBONATE 8.4% INJ 50 MEQ/50 ML DISP.SYRIN IV ONE (23:59)
[2020-11-27] MEDS ORDERED: INSULIN REG, HUMAN 100 UNIT/ML 3 ML VIAL (PYX) IV ONE (23:59)
[2020-11-28] MEDS ORDERED: MORPHINE SULFATE 10 MG/ML INJ IV ONE ×2 (00:52→06:47)
[2020-11-28] MEDS ORDERED: LABETALOL HCL INJ 20 MG/4 ML DISP.SYRIN IV ONE (01:44)
[2020-11-28] MEDS ORDERED: ONDANSETRON HCL INJ/PF 4 MG/2 ML SDV IV ONE (03:04)
[2020-11-28] MEDS ORDERED: NORMAL SALINE 1000 ML 1,000 ML IV PRN (10:48)
[2020-11-28] MEDS ORDERED: EPOETIN ALFA-EPBX 20,000 UNIT in SYRINGE, DISPOSABLE, 1 EACH IV PRN (10:48)
--- NOTE | 2020-11-28 17:03 | PDOC CONSULTATION ---
Consultation Consult Date: 11/28/20 Provider Consulted: ERICA IVY Consult reason:: Acute pulmonary Edema, ESRD History of Present Illness Admission Date/PCP: HILARY HERNANDEZ MD History of Present Illness: ERICH GOODMAN is a 35 year old -[place] lady known to me with history of ESRD on maintenance hemodialysis MWF, diabetic nephropathy, type 1 diabetes mellitus, hypertension, coronary artery disease, and multiple hospitalizations mostly for the same reason including acute pulmonary edema/hyperkalemia/chest pains most of the time. He is also known to be not very compliant with treatment including dialysis. Patient was seen in the ED yesterday and spent 10 hours regarding her ear pain diagnosed with right ear otitis media. On the way home she suddenly felt short of breath and so the Home Economist called EMS and the patient was taken back to the ED via ambulance. Patient was hypoxic with oxygen saturation of 84% so she was initially placed on CPAP and later on changed to B iPAP. Initial evaluation showed a chest x-ray consistent with bilateral pulmonary vascular congestion. Her blood work showed a potassium of 6.3, BUN of 48 and creatinine of 9.68. The patient missed her dialysis yesterday because she was in the ED the whole time. Due to hyperkalemia she was given the cocktail for hyperkalemia including calcium gluconate, D50 with insulin and sodium bicarbonate. She was allergic to nitro drip. Apparently she was given Lasix. She was also hypertensive when she presented with initial blood pressure around 207/88. She was given medications for it including IV furosemide, and IV labetalol. The ED provider attempted to transfer the patient for emergency di alysis but apparently there were no beds anywhere else including [facility], no [facility]. So they called me acute coordinator today with the dilemma of treating the patient. I then arranged for emergency hemodialysis this morning in the ED. Apparently patient remains to be on BiPAP and at 1 point changed to non-rebreather also. I am seeing this patient this afternoon on hemodialysis. According to our dialysis nurse patient was on BiPAP to start on dialysis then changed to nonrebreather and this would go along with dialysis and ultrafiltration she is now just on nasal cannula at 4 L. She is very comfortable receiving dialysis. Her blood pressure is better and is acceptable. Patient states that her last hemodialysis was last Wednesday at [facility]. She states that during that hemodialysis her blood pressure dropped to 50/32 so no ultrafiltration was limited and she finished off with about 2 or 3 kgs more than her dry weight. Her breathing is much better has been to do dialysis. She did report some chest pain described as pleuritic earlier this morning. She has some cough but denies any fever. Initially she said she has a little bit of nausea and vomiting here in the ED but not currently. She is tolerating dialysis well. Past Medical History Cardiac Medical History: Reports: Coronary Artery Disease, Heart Murmur, Hypertension-primary, Myocardial Infarction Pulmonary Medical History: Reports: Asthma, Pneumonia Neurological Medical History: Reports: Migraine, Seizures - only r/t low calcium Endocrine Medical History: Reports: Diabetes Mellitus Type 2 Complications of Diabetes: Reports: Autonomic Neuropathy, Nephropathy, Retinopathy Renal/ Medical History: Reports: End Stage Renal Disease - On hemodialysis M-W-, Hypocalcemia, Hyperkalemia, Proteinuria Malignancy Medical History: GI Medical History: Musculoskeltal Medical History: Skin Medical History: Reports: Psoriasis Psychiatric Medical History: Reports: Depression Infectious Medical History: Hematology Medical History: Reports Anemia of Chronic Kidney Disease Past Surgical History Past Surgical History: Reports: Appendectomy, Cholecystectomy, Dialysis Access Surgery AVF - Bilateral arms, Dialysis Access Surgery AVG - Left arm Social History Information Source: Patient, [facility] Records Smoking Status: Never Smoker Electronic Cigarette use?: No Frequency of Alcohol Use: Rare Hx Recreational Drug Use: No Drugs: None Hx Prescription Drug Abuse: No Family History Family History: Reviewed & Not Pertinent Parental Family History Reviewed: Yes Children Family History Reviewed: Yes Sibling(s) Family History Reviewed.: Yes Medication/Allergy Home Medications: Calcium Acetate [Phoslo 667 mg Capsule] 1,334 mg PO .[id number] 09/25/19 Calcium Acetate [Phoslo 667 mg Capsule] 2,001 mg PO Q8 09/25/19 Oxycodone HCl/Acetaminophen [Percocet 7.5-325 mg Tablet] 1 each PO QIDP PRN 09/25/19 Metolazone 10 mg PO BID 10/25/19 Clopidogrel Bisulfate [Plavix 75 mg Tablet] 75 mg PO DAILY 11/29/19 Linaclotide [Linzess] 290 mcg PO DAILY 07/29/20 Nifedipine [Nifedipine ER] 60 mg PO Q12 08/05/20 Ranolazine [Ranexa 500 mg Tab.sr] 500 mg PO Q12 #60 tab.sr.12h 08/08/20 Carvedilol [Coreg 6.25 mg Tablet] 6.25 mg PO Q12 10/22/20 Clonidine HCl [Catapres] 0.1 mg PO TID 10/22/20 Furosemide [Lasix 80 mg Tablet] 80 mg PO TIDP PRN 10/22/20 Hydralazine HCl [Apresoline 50 mg Tablet] 50 mg PO Q8 10/22/20 Pantoprazole Sodium [Protonix [address] Tablet] 40 mg PO Q12 10/22/20 Promethazine HCl [Phenergan 25 mg Tablet] 25 mg PO Q6HP PRN 10/22/20 Tazarotene [Tazorac] 1 applic TP QHS 10/22/20 Cephalexin Monohydrate [Keflex 500 mg Capsule] 500 mg PO ASDIR 7 Days #14 capsule 11/04/20 Albuterol Sulfate [Proventil 0.5% Neb 2.5 mg/0.5 ml Vial.neb] 2.5 mg NEB QID #1 misc 11/18/20 Amoxicillin/Potassium Clav [Augmentin 500-125 Tablet] 1 each PO DAILY #4 tablet 11/27/20 Allergies/Adverse Reactions: aspirin [Aspirin] Allergy (Verified 11/27/20 22:37) Anaphylaxis ciprofloxacin [From Cipro] Allergy (Verified 11/27/20 22:37) Anaphylaxis clindamycin [Clindamycin] Allergy (Verified 11/27/20 22:37) hydrocodone [From Vicodin] Allergy (Verified 11/27/20 22:37) ibuprofen [From Motrin] Allergy (Verified 11/27/20 22:37) Anaphylaxis lidocaine [From Lidoderm] Allergy (Verified 11/27/20 22:37) Generalized rash tramadol HCl [From Ultram] Allergy (Verified 11/27/20 22:37) vancomycin [Vancomycin] Allergy (Verified 11/27/20 22:37) Shortness of Breath nitroglycerin [Nitroglycerin] Adverse Reaction (Intermediate, Verified 11/27/20 22:37) Joint pain Review of Systems All systems: reviewed and no additional remarkable complaints except as stated Review of Systems: Constitutional: ABSENT: chills, fatigue, fever(s), headache(s), weight gain, weight loss Eyes: ABSENT: visual disturbances Ears: ABSENT: hearing changes; positive ear pain Cardiovascular: ABSENT: edema, orthropnea, palpitations; admits some chest pains and acute sudden onset of shortness of breath Respiratory: ABSENT: hemoptysis; reports cough Gastrointestinal: ABSENT: abdominal pain, constipation, diarrhea, hematemesis, hematochezia; had some nausea and vomiting Genitourinary: ABSENT: dysuria, hematuria Musculoskeletal: ABSENT: joint swelling Integumentary: ABSENT: rash, wounds Neurological: ABSENT: abnormal gait, abnormal speech, confusion, dizziness, focal weakness, numbness, syncope Psychiatric: ABSENT: anxiety, depression Endocrine: ABSENT: cold intolerance, heat intolerance, polydipsia, polyuria Hematologic/Lymphatic: ABSENT: easy bleeding, easy bruising, lymphadenopathy Physical Exam Vital Signs: Temp Pulse Resp BP Pulse Ox 98.7 F 112 H 20 143/95 H 100 11/28/20 03:01 11/27/20 22:42 11/28/20 12:01 11/28/20 12:01 11/28/20 12:01 Intake & Output 11/27/20 11/28/20 11/29/20 06:59 06:59 06:59 Weight 118 kg Vitals during dialysis: Blood pressure 150/72, heart rate of 108, respiration of 24, blood flow rate of 450 mL/min and dialysate flow rate of 800 mL/min. Exam: General appearance: No acute distress, cooperative, well-developed, well-n ourished, obese Head exam: PRESENT: atraumatic, normocephalic Eye exam: PRESENT: Conjunctiva slightly pale, EOMI, PERRLA. ABSENT: conjunctival injection, scleral icterus Mouth exam: PRESENT: moist, neck supple, tongue midline Neck exam: PRESENT: full ROM. ABSENT: carotid bruit, JVD, lymphadenopathy, thyromegaly Respiratory exam: PRESENT: Diminished to auscultation bilaterally. ABSENT: rales, rhonchi, stridor, wheezes Cardiovascular exam: PRESENT: RRR, +S1, +S2. ABSENT: systolic murmur Pulses: PRESENT: normal radial pulses, normal dorsalis pedis pulses GI/Abdominal exam: PRESENT: normal bowel sounds, soft. ABSENT: guarding, mass, tenderness Rectal exam: Deferred Extremities exam: PRESENT: full ROM. Trace bilateral lower extremity pitting edema ABSENT: calf tenderness Musculoskeletal: PRESENT: full ROM. ABSENT: deformity Neurological exam: PRESENT: alert, Awake, Oriented to person, Oriented to place, Oriented to time, reflexes normal, CN II-XII grossly intact. ABSENT: motor sensory deficit Psychiatric exam: PRESENT: appropriate affect, normal mood. ABSENT: homicidal ideation, suicidal ideation Skin exam: PRESENT: intact, dry, warm. ABSENT: rash Results Laboratory Results: 11/27/20 23:21 11/27/20 23:21 11/27/20 11/27/20 11/27/20 23:21 23:21 23:21 WBC 12.2 H RBC 3.05 L Hgb 8.8 L Hct 26.9 L MCV 88 MCH 28.9 MCHC 32.8 RDW 17.5 H Plt Count 344 Seg Neutrophils % 73.7 VBG pH 7.32 VBG pCO2 50.8 VBG HCO3 25.6 VBG Base Excess -0.9 Sodium 133.7 L Potassium 6.3 H* Chloride 91 L Carbon Dioxide 26 Anion Gap 17 BUN 48 H Creatinine 9.68 H Est GFR ( Amer) 6 L Glucose 176 H Calcium 8.4 Impressions: Chest X-Ray 11/27/20 22:31 IMPRESSION: Slight worsening of bilateral airspace opacities copyright 2011 [employer]- All Rights Reserved Assessment & Plan - Diagnosis (1) Acute pulmonary edema Is this a current diagnosis for this admission?: Yes Plan: Patient had missed her dialysis treatment yesterday and went into acute flash pulmonary edema suddenly requiring emergent hemodialysis. Dialysis is currently underway. Patient initially required BiPAP and now currently on oxygen with nasal cannula nursing home through dialysis treatment. (2) Acute respiratory failure Qualifiers: Respiratory failure complication: hypoxia Qualified Code(s): J96.01 - Acute respiratory failure with hypoxia Is this a current diagnosis for this admission?: Yes Plan: Due to acute flash pulmonary edema in ESRD patient who missed her scheduled dialysis treatment. (3) ESRD on dialysis Is this a current diagnosis for this admission?: Yes Plan: We will do dialysis today for 4 hours, using the patient's AV fistula, with 1 potassium bath for 2 hours followed by 2 potassium bath, blood flow rate of 450 mL per minute, dialysate flow rate of 800 mL per minute, ultrafiltration 4 to 6 L as tolerated, no heparin and Procrit with 20,000 units during dialysis intravenously. Patient is closely monitored on dialysis, and ultrafiltration being adjusted depending on the patient's hemodynamic response and blood pressure. (4) Hyperkalemia Is this a current diagnosis for this admission?: Yes Plan: Due to missed dialysis treatment. On dialysis. (5) Hypertension Qualifiers: Is this a current diagnosis for this admission?: Yes Plan: Initially with accelerated hypertension due to fluid overload and missed dialy sis and is now currently improved. (6) Anemia in chronic kidney disease (CKD) Qualifiers: Is this a current diagnosis for this admission?: Yes Plan: Retacrit given during dialysis today. (7) Diabetes mellitus type 1 Qualifiers: Diabetes mellitus complication status: with neurologic complications Diabetes mellitus complication detail: with polyneuropathy Qualified Code(s): E10.42 - Type 1 diabetes mellitus with diabetic polyneuropathy Is this a current diagnosis for this admission?: Yes - Notes Notes: Thank you very much for this consultation. From nephrology standpoint the patient can be discharge following dialysis if there are no other issues and patient remained stable.
[2020-11-28 18:11] VITALS: BP 122/73
== END 2020-11-28 18:14 | disposition home or self-care (01) ==
LOC: ER 22:23
DX: I13.2 Hypertensive heart and chronic kidney disease with heart failure and with stage 5 chronic kidney disease, or end stage renal disease (principal); I50.1 Left ventricular failure, unspecified; E10.22 Type 1 diabetes mellitus with diabetic chronic kidney disease; E10.42 Type 1 diabetes mellitus with diabetic polyneuropathy; N18.6 End stage renal disease; Z99.2 Dependence on renal dialysis; Z91.15 Patient's noncompliance with renal dialysis; D63.1 Anemia in chronic kidney disease; J96.01 Acute respiratory failure with hypoxia; E87.5 Hyperkalemia; I25.10 Atherosclerotic heart disease of native coronary artery without angina pectoris; R07.89 Other chest pain; J45.909 Unspecified asthma, uncomplicated; R00.0 Tachycardia, unspecified; G89.29 Other chronic pain; Z79.899 Other long term (current) drug therapy; Z79.891 Long term (current) use of opiate analgesic; Z79.02 Long term (current) use of antithrombotics/antiplatelets; Z79.2 Long term (current) use of antibiotics; Z87.892 Personal history of anaphylaxis; Z88.8 Allergy status to other drugs, medicaments and biological substances; Z88.1 Allergy status to other antibiotic agents; Z88.6 Allergy status to analgesic agent; Z88.5 Allergy status to narcotic agent; Z88.4 Allergy status to anesthetic agent
CPT/HCPCS: 96376; 99285; 96374; 96375 ×2; 36415; 82962; 82803; 71045; G0257; J0610; J3490 ×4; J1940; J2270; J2060; A9270; J2405; Q5105; J1815